=== PATIENT | female | born 1950 | race Caucasian/White ===

== ENCOUNTER 2018-08-17 16:25 | Observation (INO) | payer MEDICARE, SELFPAY ==
[2018-08-17] VITALS (9 sets, daily range): BP systolic 115–162; BP diastolic 49–64; PULSE 86–92; RESP 16–20; TEMP 36.6–37.1; O2SAT 89–99; BMI 29.9
--- NOTE | 2018-08-17 16:51 | EKG12_ITS ---
Test Reason : Blood Pressure : / mmHG Vent. Rate : 090 BPM Atrial Rate : 090 BPM P-R Int : 172 ms QRS Dur : 128 ms QT Int : 424 ms P-R-T Axes : 079 006 040 degrees QTc Int : 518 ms Normal sinus rhythm Left bundle branch block Abnormal ECG Confirmed by NATANAEL SIMON, TOM ([id number]), editor city DEWAYNE GUERRERO ([id number]) on 08/19/2018 1:55:50 PM Referred By: Tomy Hillman Confirmed By:TOM SANTOYO MD
--- NOTE | 2018-08-17 16:55 | ED.DCSUM_ITS ---
- ER Visit Summary Date of Service: 08/17/18 Chief Complaint: Nausea, vomiting History of Present Illness: The patient is a 68 F presenting with nausea, vomiting. This started earlier today. She has had several episodes of vomiting today. She denies diarrhea. She denies abdominal pain. She states she feels very dizzy with standing. When her son checked on her she was covered in emesis. She was unable to get up or stand secondary to her dizziness. She denies headache or weakness. Denies other complaints. Physical Examination: Vitals are stable. Patient is afebrile. Alert no acute distress. HEENT exam dry mucous membranes Neck is supple. Lungs are clear and equal bilaterally. Heart is regular rate and rhythm. Abdomen is soft nontender nondistended. No guarding or rebound Extremities are unremarkable. Skin is warm and dry. No focal neurologic deficit. Mild chronic aphasia Remainder of exam is unremarkable. Emergency Department Course and Treatment: Patient is given IV fluids, Zofran. CBC normal except for hemoglobin 10.3. Chemistries normal except glucose 144. Troponin is negative. EKG is sinus rate of 90 with left bundle branch block. CT head shows chronic changes. Patient continues to have spinning sensation. She is given a dose of Antivert. Will discuss with the hospitalist for observation. Disposition: Observation Impression: Vomiting, vertigo This note was generated with [employer] dictation software. It may contain incorrect words, spelling, and punctuation that were not noted in review of the chart prior to signing ED Disposition - Plan for ED Patient: Chief Complaint: Nausea/Vomiting
[2018-08-17] MEDS: 0.9% Normal Saline 1,000 ML 1000 ML IV (17:06)
[2018-08-17] MEDS: Ondansetron 4 MG/2 ML Vial IV (17:07)
[2018-08-17 17:14] LABS: Absolute Neutrophil Count 5.7 X10^3/uL (2.0-7.7); Basophil# 0.02 X10^3/uL; Basophil% 0.3 % (0-1); Eosinophil# 0.02 X10^3/uL; Eosinophils% 0.3 % (0-5); Hematocrit 33.3 % (37-47); Hemoglobin 10.3 g/dl (12.0-15.0); Lymphocyte % 13.1 % (19-41); Mean Corp Hgb Conc 30.9 g/gl (32-36); Mean Corpuscular Hgb 26.3 pg (27.0-32.0); Mean Corpuscular Volume 84.9 fL (81-99); Mean Platelet Vol. 9.3 fl (6.2-12.0); Monocyte# 0.21 X10^3/uL; Neutrophil # 5.73 X10^3/uL (2.7-7.7); Neutrophil % 83.2 % (47-70); Platelet Count 352 K/mm3 (150-450); RBC Distribution Width CV 14.8 % (11.6-14.6); RBC Distribution Width SD 46.3 fl (35.1-43.9); Red Blood Count 3.92 M/mm3 (4.2-5.4); White Blood Count 6.9 K/mm3 (4.4-11.0)
[2018-08-17 17:22] LABS: POSITIVE COUNT NO; POSITIVE DIFFERENTIAL NO; POSITIVE MORPHOLOGY NO
[2018-08-17 17:26] LABS: Anion Gap 8 (5-15); BUN 13 mg/dL (7-18); BUN/Creat Ratio 16.6 RATIO (10-20); Calcium,Total 9.1 mg/dL (8.5-10.1); Chloride 103 mmol/L (98-107); Creatinine, Serum 0.78 mg/dL (0.55-1.02); EST Glomerular Filtration Rate 78 mL/min (>60); Est Glom Filt Rate - Afr Amer 94 mL/min (>60); Glucose 144 mg/dL (74-106); Potassium 4.1 mmol/L (3.5-5.1); Sodium Level 139 mmol/L (136-145)
--- NOTE | 2018-08-17 17:38 | ED.RN ---
PT STATES THAT HER NAUSEA AND DIZZINESS IS A LOT BETTER.
--- NOTE | 2018-08-17 17:46 | CT_ITS ---
STUDY: CT BRAIN WITHOUT CONTRAST REASON FOR EXAM: Female, 68 years old. Dizziness RADIATION DOSAGE (If Supplied By Facility): CTDIvol = ( 44.99 ) mGy, DLP = ( 762.36 ) mGycm TECHNIQUE: Transaxial CT imaging of the brain was performed without administration of intravenous contrast material. Individualized dose optimization techniques were used for this CT. COMPARISON: None. FINDINGS: Normal soft tissue structures. Normal calvarium. Mildly prominent size ventricles and extra-axial spaces with atrophy. Old left frontal infarct. Bilateral white matter microangiopathic ischemic changes of the cerebral hemispheres. Normal basal ganglia and thalami. Normal brainstem. Normal cerebellum. There is no intracranial hemorrhage. There are no findings of an acute ischemic infarction. Normal visualized paranasal sinuses. CT/Brain/Head without Contrast IMPRESSION: Age-related changes of the brain. Old left frontal infarct. Electronically Signed: Micky Medina DO at 18:42 EST Tel [phone], Service support ,
[2018-08-17] MEDS: Meclizine 12.5 MG Tablet PO (18:18)
--- NOTE | 2018-08-17 18:57 | HP.PCM_ITS ---
Addendum entered and electronically signed by RANDA Dickerson 08/17/18 18:59: Code Visit Sg Hx: Hysterectomy, hernia repair. Original Note: History of Present Illness Date of Admission: 08/17/18 Chief Complaint: vertigo The patient is a 68 year old Female with past medical history of 2 prior strokes, who presented to the emergency room with chief complaint of dizziness. This started suddenly today. The patient was sitting in a chair and began experiencing severe dizziness described as the room spinning. She became severely nauseous and has vomited. The sensation was so strong that she was unable to get out of her chair and she has not walked. No falls today. She was brought to the emergency room and she was administered Zofran and meclizine. She had significant relief of her nausea with Zofran. She has no focal weakn ess. CT brain was negative. She has chronic aphasia from her old strokes, and normally ambulates with a rollator. She had a seizure after one of her prior strokes - she has not had one since. [] Past Medical History Allergies No Known Allergies Allergy (Verified 08/17/18 16:26) Lives: Alone Smoking Status: Former smoker Tobacco Use: Cigarettes Alcohol: None Drugs: None - *Family History Maternal History Items: No pertinent history Paternal History Items: - - multiple myeloma Review of Systems Constitutional: Denies: Chills, Fever, Weight Change HEENT: Denies: Head Aches, Sinus Congestion, Sinus Drainage Cardiovascular: Denies: Chest Pain, Palpitations Respiratory: Denies: Cough, Shortness of breath at rest, Sputum production Gastrointestinal: Denies: Abdominal Pain, Nausea, Vomiting Genitourinary: Denies: Dysuria Musculoskeletal: Denies: Joint Pain, Joint Tenderness Skin: Denies: Rash, Wounds Neurological: Denies: Numbness, Tingling, Focal weakness Psychiatric: Denies: Anxiety, Depression, Homicidal Ideations, Suicidal Ideations Hematologic/ Lymphatic: Denies: Easy Bruising, Easy Bleeding VTE Information - Inpt Only VTE Present on Admission: No VTE Mechan Device Prophylaxis: None VTE Pharm Prophylaxis ordered?: Yes - Physical Exam General: Alert, Oriented x3, Cooperative HEENT: Atraumatic, PERRLA, EOMI, Normocephalic Neck: Supple, No JVD, Negative Carotid Bruits Lungs: Clear to auscultation, Normal air movement Cardiovascular: Regular rate, No murmurs Abdomen: Bowel Sounds Present, Soft, Non Tender Extremities: No edema, Capillary Refill Less than 3 Seconds Skin: No rashes, No breakdown Musculoskeletal: No Tenderness to Palpation of Joints or Extremities Neurological: Cranial nerves II-XII grossly intact, - - aphasia Psych/Mental Status: Normal Affect, Appropriate Vital Signs Temp Pulse Resp BP Pulse Ox 97.9 F 90 18 134/64 H 94 08/17/18 16:26 08/17/18 16:30 08/17/18 16:26 08/17/18 17:39 08/17/18 17:39 Oxygen Delivery Method Room Air Weight: 174 lb 9.698 oz Body Mass Index (BMI) 29.9 Laboratory Tests Past 24 Hrs 08/17/18 08/17/18 16:35 16:35 WBC 6.9 RBC 3.92 L Hgb 10.3 L Hct 33.3 L MCV 84.9 MCH 26.3 L MCHC 30.9 L RDW 14.8 H RDW Differential 46.3 H Plt Count 352 MPV 9.3 Immature Gran % (Auto) 0.100 Neut % (Auto) 83.2 H Lymph % (Auto) 13.1 L [place] % (Auto) 3.0 Eos % (Auto) 0.3 Baso % (Auto) 0.3 Absolute Neuts (auto) 5.7 Absolute Lymphs (auto) 0.90 Total Counted Not Reportable Sodium 139 Potassium 4.1 Chloride 103 Carbon Dioxide 28.0 Anion Gap 8 BUN 13 Creatinine 0.78 Estim Creat Clear Calc 46.50 Est GFR (MDRD) Af Amer 94 Est GFR (MDRD) Non-Af 78 BUN/Creatinine Ratio 16.6 Glucose 144 H Calcium 9.1 Troponin I < 0.015 Assessment/Plan 1. Vertigo - CT brain shows old stroke and age related changes. Initiate valium/meclizine, IV fluids, antiemetics. Obtain PTOT evals. Trop neg. 2. Hx CVAx2 - continue prior, chronic aphasia, post stroke seizure, continue antiepileptics. 3. Normocytic anemia - trend. 4. Mild HTN in ER - trend. 5. Debility - uses rollator at home. PTOT. DVT ppx: lovenox DC planning: PTOT. im vertigo improves can likely be DCd home. This patient was seen by Pratik Jeremiah PA-C under the supervision of Dr. Hillman.
[2018-08-17] MEDS: 0.9% Normal Saline 1,000 ML 100 ML IV (20:22)
[2018-08-17] MEDS: diazePAM 2 MG Tablet PO (22:37)
[2018-08-17] MEDS: Heparin Injection (Vial) 5,000 UNIT/ML VIAL 5000 UNIT SC (22:37)
[2018-08-18] MEDS: Menthol/Lanolin/Calamine/Znox 113 GM Tube 1 APPLIC TOPICAL ×3 (03:17→21:56)
[2018-08-18] MEDS: Nystatin Powder 15gm Bottle 1 APPLIC TOPICAL ×3 (03:17→22:07)
[2018-08-18 03:28] VITALS: BP 133/61; PULSE 88; RESP 16; TEMP 36.6; O2SAT 96
[2018-08-18] MEDS: 0.9% Normal Saline 1,000 ML 100 ML IV ×2 (06:26→16:36)
[2018-08-18] MEDS: Heparin Injection (Vial) 5,000 UNIT/ML VIAL 5000 UNIT SC ×3 (06:38→21:55)
[2018-08-18 07:50] VITALS: O2SAT 99
--- NOTE | 2018-08-18 08:30 | PN_ITS ---
Subjective: The patient is a 68-year-old female with a past medical history of CVA x2, hyperlipidemia, hypertension, seizure disorder on Keppra, hypothyroidism, and former smoking history who presented to the emergency department at [facility] on 08/17/2018 complaining of a vertiginous feeling associated with nausea and vomiting. She was unable to get out of her chair and had not walked. Noncontrasted CT of the brain was negative. Vital signs in the emergency department were temperature 97.9, pulse rate 88, blood pressure 162/62, respiratory rate 18 and she was 96% saturated on room air. CBC showed a normal white blood cell count of 6.9 with 83% neutrophils. The hemoglobin was low at 10.3 with an MCV of 84.9 and an RDW of 14.8. Platelets were within normal limits. Electrolytes were unremarkable and the BUN was 13 with a creatinine of 0.78. A random blood sugar was elevated at 144 and she is not known to have diabetes mellitus. Troponin was less than 0.015. She was admitted to the hospital and was started on normal saline at 100 cc/h, 2 mg of Valium 4 times a day and ondansetron for nausea as needed. PT and OT consults were ordered. Blood pressures have ranged from 115/49-162/62 since admission. Her BP pills were held at admission She denies vertigo today. She tells me that it started very suddenly yesterday and she was unable to get up out of her chair. She denies nausea today and tells me that her last emesis was yesterday. Her only complaint today she feels very tired. He is getting Valium 4 times daily. Eyes any numbness or weakness of her extremities, difficulty swallowing, confusion. She has expressive a aphasia from previous CVA. She states this is unchanged. - Physical Exam General: Alert, Oriented x3, Cooperative, No apparent distress, - - Looks very sleepy although she does arouse easily when I call her name HEENT: Atraumatic, PERRLA, EOMI, - - Very mild horizontal nystagmus Oral: Moist Mucosa Neck: Supple, No Nodes, Trachea Midline Lungs: Clear to auscultation Cardiovascular: Regular rate, Regular Rhythm, Normal S1, Normal S2, No murmurs, No Gallop Abdomen: Bowel Sounds Present, Soft, Non Tender, Non-Distended Extremities: No clubbing, No cyanosis, No edema Skin: No rashes, No breakdown Neurological: Cranial nerves II-XII grossly intact, Neuro grossly intact, - - Moving all extremities, alert and oriented x3 when aroused, able to follow commands and answer yes and no questions. She has expressive aphasia which is chronic Psych/Mental Status: Appropriate Vital Signs Temp Pulse Resp BP Pulse Ox 97.8 F 88 16 133/61 H 96 08/18/18 03:28 08/18/18 03:28 08/18/18 03:28 08/18/18 03:28 08/18/18 03:28 Oxygen Flow Rate (L/min) 1 Oxygen Delivery Method Nasal Cannula Weight: 174 lb 9.698 oz Body Mass Index (BMI) 29.9 Intake and Output for Last 24 Hours 08/16/18 08/17/18 08/18/18 23:59 23:59 23:59 Intake Total 1136 / 1136 Balance 1136 / 1136 Laboratory Tests Past 24 Hrs 08/17/18 08/17/18 16:35 16:35 WBC 6.9 RBC 3.92 L Hgb 10.3 L Hct 33.3 L MCV 84.9 MCH 26.3 L MCHC 30.9 L RDW 14.8 H RDW Differential 46.3 H Plt Count 352 MPV 9.3 Immature Gran % (Auto) 0.100 Neut % (Auto) 83.2 H Lymph % (Auto) 13.1 L [place] % (Auto) 3.0 Eos % (Auto) 0.3 Baso % (Auto) 0.3 Absolute Neuts (auto) 5.7 Absolute Lymphs (auto) 0.90 Total Counted Not Reportable Sodium 139 Potassium 4.1 Chloride 103 Carbon Dioxide 28.0 Anion Gap 8 BUN 13 Creatinine 0.78 Estim Creat Clear Calc 46.50 Est GFR (MDRD) Af Amer 94 Est GFR (MDRD) Non-Af 78 BUN/Creatinine Ratio 16.6 Glucose 144 H Calcium 9.1 Troponin I < 0.015 Medical Necessity - Tobacco Use Smoking Status: Former smoker Tobacco Use: Cigarettes Assessment/Plan Impressions 1. vertigo - etiology? Sx have resolved so I suspect this is BPV. Will have her eat this AM and await the evaluation by PT. If she is unable to ambulate with the rollator will order a MRI of the brain to look for a brain stem infarct 2. hx of CVA X 2 in the past with chronic aphasia 3. anemia with increased RDW - on both ASA and Plavix. Check a hemoccult stool 4. HTN 5. Dyslipidemia Code Visit OBSV E&M: 08995 Subsequent observation care L2
[2018-08-18 09:18] LABS: Hemoglobin A1c 6.3 % (4.2-6.3); Thyroid Stim Hormone (TSH) 4.53 uIU/mL (0.358-3.74)
[2018-08-18 10:00] VITALS: BP 125/54; PULSE 89; RESP 16; TEMP 36.5; O2SAT 100
[2018-08-18] MEDS: Carvedilol 6.25 MG Tablet PO ×2 (10:54→21:55)
[2018-08-18] MEDS: Clopidogrel Bisulfate 75 MG Tablet PO (10:54)
[2018-08-18] MEDS: levETIRAcetam 500 MG Tablet PO ×2 (10:54→21:56)
[2018-08-18] MEDS: Meclizine 12.5 MG Tablet PO ×2 (11:08→22:00)
[2018-08-18 14:00] VITALS: BP 128/62; PULSE 89; RESP 18; TEMP 36.4; O2SAT 95
[2018-08-18 20:00] VITALS: BP 142/60; PULSE 106; RESP 28; TEMP 37.9; O2SAT 96
[2018-08-18 21:00] VITALS: PULSE 106; RESP 28; O2SAT 96
[2018-08-18] MEDS: Atorvastatin Calcium 20 MG Tablet PO (21:55)
[2018-08-18] MEDS: Sertraline 100 MG Tablet PO (21:57)
[2018-08-18] MEDS: Acetaminophen 325 MG Tablet 650 MG PO (22:00)
--- NOTE | 2018-08-18 23:45 | RAD_ITS ---
STUDY: X-RAY CHEST REASON FOR EXAM: Female, 68 years old. Fever TECHNIQUE: Single AP portable view of the chest. COMPARISON: None. FINDINGS: Ill-defined groundglass opacities are seen in the right upper lobe suggesting pneumonia. There is no demonstrated pleural abnormality. Normal size heart. Normal mediastinum and sunita. Normal visualized pulmonary arteries. Normal visualized aortic arch and descending thoracic aorta. Normal visualized thoracic spine. Normal visualized ribs, clavicles, and shoulders. There is no demonstrated abnormality of the visualized soft tissue structures of the upper abdomen. RAD/Chest 1 View (Portable) IMPRESSION: Possible early right upper lobe pneumonia. Electronically Signed: Claudia Lerma MD at 0:46 EST Tel , Service support ,
[2018-08-19] VITALS (8 sets, daily range): BP systolic 123–168; BP diastolic 55–77; PULSE 86–105; RESP 16–24; TEMP 36.7–37.3; O2SAT 88–100
[2018-08-19] MEDS: levoFLOXacin IV 500 MG/100 ML BAG 100 MG IV (02:26)
[2018-08-19] MEDS: 0.9% Normal Saline 1,000 ML 100 ML IV ×3 (02:26→21:11)
[2018-08-19 02:39] LABS: Absolute Lymphocyte Count 1.76 X10^3/ul (0.83-4.51); Absolute Neutrophil Count 3.7 X10^3/uL (2.0-7.7); Basophil# 0.04 X10^3/uL; Basophil% 0.6 % (0-1); Eosinophil# 0.17 X10^3/uL; Eosinophils% 2.8 % (0-5); Hematocrit 26.3 % (37-47); Hemoglobin 7.9 g/dl (12.0-15.0); Lymphocyte # 1.76 X10^3/ul (4.0); Lymphocyte % 28.6 % (19-41); Mean Corpuscular Hgb 26.7 pg (27.0-32.0); Mean Corpuscular Volume 88.9 fL (81-99); Mean Platelet Vol. 9.8 fl (6.2-12.0); Monocyte# 0.48 X10^3/uL; Monocyte% 7.8 % (0-10); Platelet Count 302 K/mm3 (150-450); RBC Distribution Width CV 14.7 % (11.6-14.6); RBC Distribution Width SD 45.9 fl (35.1-43.9); Red Blood Count 2.96 M/mm3 (4.2-5.4); White Blood Count 6.2 K/mm3 (4.4-11.0)
[2018-08-19 02:41] LABS: POSITIVE COUNT NO; POSITIVE DIFFERENTIAL NO; POSITIVE MORPHOLOGY NO
[2018-08-19] MEDS: Heparin Injection (Vial) 5,000 UNIT/ML VIAL 5000 UNIT SC ×3 (06:46→21:12)
[2018-08-19] MEDS: Levothyroxine 50 MCG Tablet PO (06:47)
[2018-08-19] MEDS: Meclizine 12.5 MG Tablet PO ×3 (06:50→21:12)
[2018-08-19] MEDS: Carvedilol 6.25 MG Tablet PO ×2 (08:32→21:12)
[2018-08-19] MEDS: Aspirin E.C. 81 MG Tablet PO (08:32)
[2018-08-19] MEDS: Multivitamins,Ther W-Minerals Tablet 1 TABLET PO (08:32)
[2018-08-19] MEDS: levETIRAcetam 500 MG Tablet PO ×2 (08:33→21:55)
[2018-08-19] MEDS: Clopidogrel Bisulfate 75 MG Tablet PO (08:33)
--- NOTE | 2018-08-19 11:01 | CASEMGMT ---
Social Work Note SW updated pt that Advanced Directives are not on file. Pt states that her son has the documents and he is able to bring them in. Kylee Gresham [employer] GENER[employer] MANAGER, [employer]
[2018-08-19] MEDS: Nystatin Powder 15gm Bottle 1 APPLIC TOPICAL ×2 (12:13→21:13)
[2018-08-19] MEDS: Menthol/Lanolin/Calamine/Znox 113 GM Tube 1 APPLIC TOPICAL ×2 (12:13→21:11)
--- NOTE | 2018-08-19 12:15 | PCM.PROGNOTE ---
Subjective: The patient is a 68-year-old female with a past medical history of CVA x2, hyperlipidemia, hypertension, seizure disorder on Keppra, hypothyroidism, and former smoking history who presented to the emergency department at [facility] on 08/17/2018 complaining of a vertiginous feeling associated with nausea and vomiting. All events of the past 24 hours were reviewed. Patient was seen by physical therapy yesterday and became nauseated with recurrent vertigo when up ambulating and refused to do any more physical therapy. They recommended she continue to get physical therapy. She is afebrile ( had 1 temp to 100.3 last night and has been Afebrile all other times). Vital signs are stable. She is 97-100% saturated on room air. All lab was personally reviewed. WBC count is 6.2 today with a normal differential. The hemoglobin has dropped from 10.3 on 08/17/2018 to 7.9 today. She is up 4 liters on I&O since admission however I do not know if the out put is accurate. Radiology: Chest x-ray yesterday shows no pleural effusions or PVC but is reported as a possible early pneumonia RUL by the radiologist.....but she is afebrile with a normal WBC and diff. Blood cultures are pending. Still having vertigo and is unsteady per nursing/PT......she did not do any out of bed PT today because she was going to go to MRI. after 10 minutes of exercise at the EOB the vertigo subsided MRI negative for acute CVA Objective: - Physical Exam General: Alert, Oriented x3, Cooperative, No apparent distress, sitting in a chair-more alert today since the Valium was changed to Antivert yesterday afternoon HEENT: Atraumatic, PERRLA, EOMI, - - Very mild horizontal nystagmus, expressive aphasia Oral: Moist Mucosa Neck: Supple, No Nodes, Trachea Midline Lungs: Clear to auscultation Cardiovascular: Regular rate, Regular Rhythm, Normal S1, Normal S2, No murmurs, No Gallop Abdomen: Bowel Sounds Present, Soft, Non Tender, Non-Distended Extremities: No clubbing, No cyanosis, No edema Skin: No rashes, No breakdown Neurological: Cranial nerves II-XII grossly intact, Neuro grossly intact, - - Moving all extremities, alert and oriented x3 when aroused, able to follow commands and answer yes and no questions. She has expressive aphasia which is chronic Psych/Mental Status: Appropriate - Physical Exam Vital Signs Temp Pulse Resp BP Pulse Ox 98.5 F 92 18 139/56 H 97 08/19/18 08:19 18 08:19 08/19/18 09:00 08/19/18 08:19 08/19/18 08:19 Oxygen Flow Rate (L/min) 1 Oxygen Delivery Method Nasal Cannula Weight: 174 lb 9.698 oz Body Mass Index (BMI) 29.9 Intake and Output for Last 24 Hours 08/17/18 08/18/18 08/19/18 23:59 23:59 23:59 Intake Total 2570 / 2570 1609 / 1609 Output Total 200 / 200 Balance 2370 / 2370 1609 / 1609 Microbiology Past 72 Hours 08/19/18 03:00 Gram Stain - Final Sputum, Expectorated/Coughed Laboratory Tests Past 24 Hrs 08/19/18 02:17 WBC 6.2 RBC 2.96 L Hgb 7.9 L Hct 26.3 L MCV 88.9 MCH 26.7 L MCHC 30.0 L RDW 14.7 H RDW Differential 45.9 H Plt Count 302 MPV 9.8 Immature Gran % (Auto) 0.200 Neut % (Auto) 60.0 Lymph % (Auto) 28.6 [place] % (Auto) 7.8 Eos % (Auto) 2.8 Baso % (Auto) 0.6 Absolute Neuts (auto) 3.7 Absolute Lymphs (auto) 1.76 Total Counted Not Reportable Medical Necessity - Tobacco Use Smoking Status: Former smoker Tobacco Use: Cigarettes Assessment/Plan Impressions 1. vertigo - etiology? suspect BPV since the MRI of the brain was negative. She did better with PT today. 2. hx of CVA X 2 in the past with chronic aphasia 3. Iron deficiency anemia with increased RDW - on both ASA and Plavix. Check a hemoccult stool. HGB is stable today. iron studies are consistent with iron deficiency. Await the hemoccult stool 4. HTN 5. Dyslipidemia 6. 1 low grade temp and AF since. CXR with possible early RUL infiltrate. she is not coughing and denies chills - hold off on any antibiotics unless she has more fevers, shaking chills, SOB, hypoxemia Start an iron supplement and will need to go home on iron........may need endoscopy as OP to look for etiology of the iron deficiency Continue the MecliZiromeo CONROY the Levaqadriana CONROY the tylenol to see if she will have another fever.....if she does get a fever would treat for an aspiration PNA given N/V at admission Would probably benefit from OP referral to PT for vestibular training Code Visit Inpatient E&M: 10066 Subs Hosp L2
[2018-08-19 13:19] LABS: Hematocrit 28.2 % (37-47); Hemoglobin 8.7 g/dl (12.0-15.0)
--- NOTE | 2018-08-19 13:30 | CASEMGMT ---
WHITLEY SOLANO completed MANZANARES form with patient and son William who is HPOA. Per patient's request William WALLER signed MANZANARES form. Copy of MANZANARES form given to son and original filed on chart. Patient lives with son and has walker and wheelchair at home. Family requesting [facility] for SN and therapy. Family and patient agreeable to [facility]. Referral sent to [facility]. CM will continue to follow this patient and plan for a safe discharge.
[2018-08-19 13:52] LABS: Ferritin 6 ng/mL (8-252); Iron 48 ug/dL (50-170); Iron Binding Capacity,Total 328 ug/dL (250-450); PERCENT IRON SATURATION 14.6 % (15.0-55.0)
--- NOTE | 2018-08-19 14:21 | MRI_ITS ---
STUDY: MRI BRAIN WITHOUT CONTRAST REASON FOR EXAM: Female, 68 years old. Vertigo. Expressive aphasia. TECHNIQUE: Standardized multiplanar fat and water weighted pulse sequences were obtained. COMPARISON: CT head 08/17/2018. FINDINGS: There is a chronic left frontal infarct. Surrounding signal alteration is consistent with small vessel disease or gliosis. There is no evidence of hemorrhage or acute ischemia. There is moderate cerebral atrophy with widening of the extra-axial spaces and ventricular dilatation. There are a limited number of small white matter hyperintensities, distributed throughout the deep white matter tracts of the cerebral hemispheres, consistent with mild chronic white matter ischemic changes. Normal bilateral basal ganglia. Normal thalami. There is no extra-axial fluid accumulation. 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 Normal sella turcica, pituitary gland, infundibular stalk, optic chiasm and hypothalamus. Normal tectal plate and pineal gland. There is atrophy of the left cerebral peduncle consistent with chronic left frontal infarct. Normal day and medulla. Normal cerebellum. Normal basal cisterns. Normal bilateral temporal bones. Normal bilateral internal auditory canals. No demonstrated orbital abnormality, within the constraints of a routine brain study. Normal visualized paranasal sinuses. Normal calvarium and skull base. Normal visualized soft tissue structures. Normal visualized upper cervical spine. MRI/Brain without Contrast IMPRESSION: 1. No acute process. 2. Chronic left frontal infarct. 3. Demonstrated left ICA appears occluded. 4. Microvascular ischemia. Atrophy. Electronically Signed: Elmira Hutchison MD at 17:55 EST Tel , Service support ,
[2018-08-19] MEDS: 0.9% NaCl Peripheral Flush Adult/Peds IV (21:10)
[2018-08-19] MEDS: Ondansetron 4 MG/2 ML Vial IV (21:10)
[2018-08-19] MEDS: Sertraline 100 MG Tablet PO (21:13)
[2018-08-19] MEDS: Atorvastatin Calcium 20 MG Tablet PO (21:13)
[2018-08-19] MEDS: Psyllium 1 PACKET PO (21:56)
[2018-08-20] VITALS (8 sets, daily range): BP systolic 117–147; BP diastolic 46–82; PULSE 93–101; RESP 16–24; TEMP 36.4–37.1; O2SAT 94–99
[2018-08-20] MEDS: Levothyroxine 50 MCG Tablet PO (05:23)
[2018-08-20] MEDS: Meclizine 12.5 MG Tablet PO ×3 (05:23→22:10)
[2018-08-20] MEDS: Heparin Injection (Vial) 5,000 UNIT/ML VIAL 5000 UNIT SC ×3 (05:24→22:10)
[2018-08-20] MEDS: Aspirin E.C. 81 MG Tablet PO (09:16)
[2018-08-20] MEDS: Clopidogrel Bisulfate 75 MG Tablet PO (09:16)
[2018-08-20] MEDS: Multivitamins,Ther W-Minerals Tablet 1 TABLET PO (09:16)
[2018-08-20] MEDS: Carvedilol 6.25 MG Tablet PO ×2 (09:16→22:09)
[2018-08-20] MEDS: levETIRAcetam 500 MG Tablet PO ×2 (09:16→22:10)
[2018-08-20] MEDS: Psyllium 1 PACKET PO ×2 (09:17→22:09)
[2018-08-20] MEDS: Menthol/Lanolin/Calamine/Znox 113 GM Tube 1 APPLIC TOPICAL ×2 (09:17→22:11)
--- NOTE | 2018-08-20 10:33 | RAD_ITS ---
STUDY: X-RAY CHEST REASON FOR EXAM: Female, 68 years old. Nausea and vomiting, dizziness TECHNIQUE: PA and lateral views of the chest. COMPARISON: 08/18/2018 FINDINGS: Lungs are expanded with chronic interstitial changes and superimposed interstitial edema since the previous study. The lateral view shows small bilateral dependent pleural effusions. Follow-up recommended to assure resolution. Normal size heart. Normal mediastinum and sunita. Normal visualized pulmonary arteries. There is atherosclerotic calcification of the aortic arch with tortuosity. There are diffuse degenerative changes of the visualized thoracic spine. Normal visualized ribs, clavicles, and shoulders. There is no demonstrated abnormality of the visualized soft tissue structures of the upper abdomen. RAD/Chest PA and Lateral IMPRESSION: Chronic interstitial changes with superimposed interstitial edema and bilateral pleural effusions. Follow-up recommended to assure resolution. Electronically Signed: Celso Dupont MD at 11:16 EST , Service support ,
--- NOTE | 2018-08-20 11:17 | PCM.PN.HOSP ---
Patient Problems: Active and Suspected Problems Vertigo (Acute) Subjective: still with dizziness, but improved. Vitals/I&O's: Vital Signs Temp Pulse Resp BP Pulse Ox 36.8 C 95 24 H 129/68 H 94 08/20/18 09:11 08/20/18 09:11 08/20/18 09:11 08/20/18 09:11 08/20/18 09:11 Oxygen Flow Rate (L/min) 3 Oxygen Delivery Method Nasal Cannula Weight: 79.2 kg Body Mass Index (BMI) 29.9 Intake and Output for Last 24 Hours 08/18/18 08/19/18 08/20/18 23:59 23:59 23:59 Intake Total 2570 / 2570 3477 / 3477 2275 / 2275 Output Total 200 / 200 1250 / 1250 1150 / 1150 Balance 2370 / 2370 2227 / 2227 1125 / 1125 General: Alert, Cooperative, No apparent distress HEENT: Atraumatic, PERRLA, Normocephalic, - - horizontal nystagmus, that fatigues bilaterally. Oral: Moist Mucosa, No Gingival or Mucosal Lesions/ Ulcerations Neck: No Nodes, Thyroid Normal Size and Texture Lungs: Normal air movement, - - coarse breath sounds bilaterally. Cardiovascular: Regular rate, Regular Rhythm, Normal S1, Normal S2, No murmurs Abdomen: Bowel Sounds Present, Soft, Non Tender, Non-Distended, No Hepato-splenomegaly Extremities: No edema, No Calf Tenderness Skin: No rashes, No breakdown Psych/Mental Status: Normal Affect, Appropriate Microbiology Past 72 Hours 08/19/18 03:00 Sputum, Expectorated/Coughed Gram Stain - Final Laboratory Results 08/19/18 13:11: Hgb 8.7 L, Hct 28.2 L 08/19/18 13:11: Iron 48 L, TIBC 328, Iron Saturation 14.6 L, Ferritin 6 L Current Medications Aspirin (Ecotrin) 81 mg PO DAILYCM [facility] Last Admin: 08/20/18 09:16 Dose: 81 mg Atorvastatin Calcium (Lipitor) 20 mg PO QHS [facility] Last Admin: 08/19/18 21:13 Dose: 20 mg Calamine/Phenol (Calmoseptine Ointment) 1 applic TOPICAL BID [facility]; Protocol Last Admin: 08/20/18 09:17 Dose: 1 applicatio Carvedilol (Coreg) 6.25 mg PO BID [facility] Last Admin: 08/20/18 09:16 Dose: 6.25 mg Clopidogrel Bisulfate (Plavix) 75 mg PO DAILY [facility] Last Admin: 08/20/18 09:16 Dose: 75 mg Ferrous Sulfate (Ferrous Sulfate) 325 mg PO 1200,1700 [facility] Heparin Sodium (Porcine) (Heparin Na) 5,000 unit SC Q8 [facility] Last Admin: 08/20/18 05:24 Dose: 5,000 unit Levetiracetam (Keppra Tablet) 500 mg PO BID [facility] Last Admin: 08/20/18 09:16 Dose: 500 mg Levothyroxine Sodium (Synthroid) 50 mcg PO DAILY@0600 [facility] Last Admin: 08/20/18 05:23 Dose: 50 mcg Meclizine HCl (Antivert) 12.5 mg PO Q8 [facility] Last Admin: 08/20/18 05:23 Dose: 12.5 mg Multivitamins/Minerals (Multivitamin With Minerals) 1 tablet PO DAILY@0800 [facility] Last Admin: 08/20/18 09:16 Dose: 1 tablet Nystatin (Mycostatin Powder) 1 applic TOPICAL BID [facility]; Protocol Last Admin: 08/20/18 10:15 Dose: Not Given Ondansetron HCl (Zofran) 4 mg IV Q6H PRN PRN PRN Reason: NAUSEA Last Admin: 08/19/18 21:10 Dose: 4 mg Psyllium Hydrophilic Mucilloid (Metamucil) 1 packet PO BID [facility] Last Admin: 08/20/18 09:17 Dose: 1 packet Sertraline HCl (Zoloft) 100 mg PO QHS [facility] Last Admin: 08/19/18 21:13 Dose: 100 mg Sodium Chloride () 5 - 15 ml IV UD PRN PRN Reason: SALINE FLUSH Last Admin: 08/19/18 21:10 Dose: 10 ml Medical Necessity - Tobacco Use Smoking Status: Former smoker Tobacco Use: Cigarettes Assessment/Plan All Active Problems Vertigo (Acute) 1. Vertigo. ongoing, but improved suspect BPPV on meclizine continue therapy services MRI negative for acute CVA, but does show occlusion of Left ICA 2. Dyspnea CXR shows some pulm edema and pleural effusions (small) concern is for CHF check echo start Lasix already on carvedilol 3. CVA chronic on CAPT and HIS 4. DVT proph: SQ heparin Code Visit Inpatient E&M: 88484 Subs Hosp L2
--- NOTE | 2018-08-20 11:26 | PN_ITS ---
Patient Problems: Active and Suspected Problems Vertigo (Acute) Subjective: still with dizziness, but improved. Vitals/I&O's: Vital Signs Temp Pulse Resp BP Pulse Ox 36.8 C 95 24 H 129/68 H 94 08/20/18 09:11 08/20/18 09:11 08/20/18 09:11 08/20/18 09:11 08/20/18 09:11 Oxygen Flow Rate (L/min) 3 Oxygen Delivery Method Nasal Cannula Weight: 79.2 kg Body Mass Index (BMI) 29.9 Intake and Output for Last 24 Hours 08/18/18 08/19/18 08/20/18 23:59 23:59 23:59 Intake Total 2570 / 2570 3477 / 3477 2275 / 2275 Output Total 200 / 200 1250 / 1250 1150 / 1150 Balance 2370 / 2370 2227 / 2227 1125 / 1125 General: Alert, Cooperative, No apparent distress HEENT: Atraumatic, PERRLA, Normocephalic, - - horizontal nystagmus, that fatigues bilaterally. Oral: Moist Mucosa, No Gingival or Mucosal Lesions/ Ulcerations Neck: No Nodes, Thyroid Normal Size and Texture Lungs: Normal air movement, - - coarse breath sounds bilaterally. Cardiovascular: Regular rate, Regular Rhythm, Normal S1, Normal S2, No murmurs Abdomen: Bowel Sounds Present, Soft, Non Tender, Non-Distended, No Hepato-s plenomegaly Extremities: No edema, No Calf Tenderness Skin: No rashes, No breakdown Psych/Mental Status: Normal Affect, Appropriate Microbiology Past 72 Hours 08/19/18 03:00 Sputum, Expectorated/Coughed Gram Stain - Final Laboratory Results 08/19/18 13:11: Hgb 8.7 L, Hct 28.2 L 08/19/18 13:11: Iron 48 L, TIBC 328, Iron Saturation 14.6 L, Ferritin 6 L Current Medications Aspirin (Ecotrin) 81 mg PO DAILYCM [facility] Last Admin: 08/20/18 09:16 Dose: 81 mg Atorvastatin Calcium (Lipitor) 20 mg PO QHS [facility] Last Admin: 08/19/18 21:13 Dose: 20 mg Calamine/Phenol (Calmoseptine Ointment) 1 applic TOPICAL BID [facility]; Protocol Last Admin: 08/20/18 09:17 Dose: 1 applicatio Carvedilol (Coreg) 6.25 mg PO BID [facility] Last Admin: 08/20/18 09:16 Dose: 6.25 mg Clopidogrel Bisulfate (Plavix) 75 mg PO DAILY [facility] Last Admin: 08/20/18 09:16 Dose: 75 mg Ferrous Sulfate (Ferrous Sulfate) 325 mg PO 1200,1700 [facility] Heparin Sodium (Porcine) (Heparin Na) 5,000 unit SC Q8 [facility] Last Admin: 08/20/18 05:24 Dose: 5,000 unit Levetiracetam (Keppra Tablet) 500 mg PO BID [facility] Last Admin: 08/20/18 09:16 Dose: 500 mg Levothyroxine Sodium (Synthroid) 50 mcg PO DAILY@0600 [facility] Last Admin: 08/20/18 05:23 Dose: 50 mcg Meclizine HCl (Antivert) 12.5 mg PO Q8 [facility] Last Admin: 08/20/18 05:23 Dose: 12.5 mg Multivitamins/Minerals (Multivitamin With Minerals) 1 tablet PO DAILY@0800 [facility] Last Admin: 08/20/18 09:16 Dose: 1 tablet Nystatin (Mycostatin Powder) 1 applic TOPICAL BID [facility]; Protocol Last Admin: 08/20/18 10:15 Dose: Not Given Ondansetron HCl (Zofran) 4 mg IV Q6H PRN PRN PRN Reason: NAUSEA Last Admin: 08/19/18 21:10 Dose: 4 mg Psyllium Hydrophilic Mucilloid (Metamucil) 1 packet PO BID [facility] Last Admin: 08/20/18 09:17 Dose: 1 packet Sertraline HCl (Zoloft) 100 mg PO QHS [facility] Last Admin: 08/19/18 21:13 Dose: 100 mg Sodium Chloride () 5 - 15 ml IV UD PRN PRN Reason: SALINE FLUSH Last Admin: 08/19/18 21:10 Dose: 10 ml Medical Necessity - Tobacco Use Smoking Status: Former smoker Tobacco Use: Cigarettes Assessment/Plan All Active Problems Vertigo (Acute) 1. Vertigo. 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 Dyspnea * CXR shows some pulm edema and pleural effusions (small) * concern is for CHF * check echo * start Lasix * already on carvedilol 3. CVA * chronic * on CAPT and HIS 4. DVT proph: SQ heparin Code Visit Inpatient E&M: 50286 Subs Hosp L2
[2018-08-20] MEDS: Furosemide 40 MG/4 ML Vial IV ×2 (11:51→17:14)
[2018-08-20] MEDS: 0.9% NaCl Peripheral Flush Adult/Peds IV ×2 (11:51→17:13)
--- NOTE | 2018-08-20 12:25 | NURSING ---
male phoned in, states he is pt son William Weinstein- updated
[2018-08-20] MEDS: Ferrous Sulfate 325 MG Tablet PO ×2 (13:28→17:13)
--- NOTE | 2018-08-20 18:46 | PCA ---
pure wick catheter changed at 1400, while pt sitting in chair
[2018-08-20] MEDS: Atorvastatin Calcium 20 MG Tablet PO (22:09)
[2018-08-20] MEDS: Sertraline 100 MG Tablet PO (22:10)
[2018-08-20] MEDS: Nystatin Powder 15gm Bottle 1 APPLIC TOPICAL (22:11)
[2018-08-21 05:06] VITALS: BP 129/57; PULSE 80; RESP 20; TEMP 36.8; O2SAT 95
[2018-08-21] MEDS: Levothyroxine 50 MCG Tablet PO (05:14)
[2018-08-21] MEDS: Meclizine 12.5 MG Tablet PO (05:14)
[2018-08-21] MEDS: Heparin Injection (Vial) 5,000 UNIT/ML VIAL 5000 UNIT SC (05:14)
[2018-08-21 05:15] VITALS: RESP 20; O2SAT 95
[2018-08-21 06:49] VITALS: O2SAT 96
[2018-08-21 06:59] LABS: Absolute Neutrophil Count 4.5 X10^3/uL (2.0-7.7); Basophil# 0.04 X10^3/uL; Basophil% 0.6 % (0-1); Eosinophil# 0.22 X10^3/uL; Eosinophils% 3.2 % (0-5); Hematocrit 28.4 % (37-47); Hemoglobin 8.7 g/dl (12.0-15.0); Lymphocyte % 23.1 % (19-41); Mean Corp Hgb Conc 30.6 g/gl (32-36); Mean Corpuscular Hgb 26.4 pg (27.0-32.0); Mean Corpuscular Volume 86.1 fL (81-99); Mean Platelet Vol. 9.4 fl (6.2-12.0); Monocyte# 0.59 X10^3/uL; Monocyte% 8.5 % (0-10); Neutrophil # 4.46 X10^3/uL (2.7-7.7); Neutrophil % 64.5 % (47-70); Platelet Count 294 K/mm3 (150-450); RBC Distribution Width CV 14.9 % (11.6-14.6); RBC Distribution Width SD 46.8 fl (35.1-43.9); White Blood Count 6.9 K/mm3 (4.4-11.0)
[2018-08-21 07:12] LABS: POSITIVE COUNT NO; POSITIVE DIFFERENTIAL NO; POSITIVE MORPHOLOGY NO
[2018-08-21 07:31] LABS: Anion Gap 10 (5-15); BUN 12 mg/dL (7-18); Calcium,Total 8.2 mg/dL (8.5-10.1); Chloride 109 mmol/L (98-107); EST Glomerular Filtration Rate 76 mL/min (>60); Est Glom Filt Rate - Afr Amer 92 mL/min (>60); Estimated Creatinine Clearance 58.12 ml/min; Glucose 91 mg/dL (74-106); Potassium 3.5 mmol/L (3.5-5.1); Sodium Level 146 mmol/L (136-145)
[2018-08-21 09:04] VITALS: BP 131/54; PULSE 94; RESP 20; TEMP 36.4; O2SAT 96
[2018-08-21] MEDS: Aspirin E.C. 81 MG Tablet PO (09:05)
[2018-08-21] MEDS: Psyllium 1 PACKET PO (09:05)
[2018-08-21] MEDS: Clopidogrel Bisulfate 75 MG Tablet PO (09:05)
[2018-08-21] MEDS: Multivitamins,Ther W-Minerals Tablet 1 TABLET PO (09:06)
[2018-08-21] MEDS: Ferrous Sulfate 325 MG Tablet PO (09:06)
[2018-08-21] MEDS: levETIRAcetam 500 MG Tablet PO (09:06)
[2018-08-21] MEDS: Carvedilol 6.25 MG Tablet PO (09:06)
[2018-08-21] MEDS: 0.9% NaCl Peripheral Flush Adult/Peds IV (09:06)
[2018-08-21] MEDS: Menthol/Lanolin/Calamine/Znox 113 GM Tube 1 APPLIC TOPICAL (09:13)
[2018-08-21] MEDS: Nystatin Powder 15gm Bottle 1 APPLIC TOPICAL (09:14)
[2018-08-21] MEDS: Furosemide 40 MG/4 ML Vial IV (09:14)
--- NOTE | 2018-08-21 10:48 | DCINST_ITS ---
You will use the following diet at home:: Cardiac, Fluid restricted (specify 2000 mls, 1500 mls) - 1500 cc/day Your food should be the consistency of: Regular Your liquids should be the consistency of: Regular/Thin Discharge Activity: Return to Normal Activity Call your doctor if you observe: Fever of 101 or Higher, Shortness of breath, Swelling in the ankles Allergies/Adverse Reactions: Allergies No Known Allergies Allergy (Verified 08/17/18 16:26) Medications to take at Discharge Aspirin [Aspir 81] 81 mg PO DAILY 08/17/18 Atorvastatin Calcium [Lipitor] 20 mg PO QHS 08/17/18 Carvedilol 6.25 mg PO BID 08/17/18 Clopidogrel Bisulfate [Clopidogrel] 75 mg PO DAILY 08/17/18 Furosemide [Lasix] 20 mg PO DAILY 08/17/18 Ibuprofen 600 mg PO Q6H PRN PRN 08/17/18 Levetiracetam 500 mg PO BID 08/17/18 Levothyroxine [Synthroid] 50 mcg PO DAILY 08/17/18 Lisinopril 5 mg PO QHS 08/17/18 Multivit,Tx with Iron,Minerals [Thera-M] 1 each PO DAILY 08/17/18 Sertraline HCl 100 mg PO QHS 08/17/18 Ferrous Sulfate 325 mg PO DAILY #30 tab 08/21/18 Meclizine HCl [Antivert] 12.5 mg PO Q8 PRN #20 tab 08/21/18 The following prescriptions were given: Ferrous Sulfate 325 mg PO DAILY #30 tab Meclizine HCl [Antivert] 12.5 mg PO Q8 PRN #20 tab PRN Reason: Dizziness Orders to be completed after discharge: Echo Complete [ECHO] Location: None Selected CBC W/Diff, Automated Time Frame: 1 Week, Location: Laboratory Physical Therapy Evaluation Location: None Selected Primary Care Physician: Lenin Bhatt MD [Primary Care Provider] - Within 1 Week Test Results: Test results from this visit will be discussed in further detail at your follow- up appointment, if applicable. Please Follow Up With: [facility] - heart failure follow up When: 2-4 weeks Please Follow Up With: Ac Thomas MD - anemia follow up When: 1-2 months Proposed Discharge Date: 08/21/18
--- NOTE | 2018-08-21 10:48 | PCM.DC.SUM ---
Discharge Date and Diagnosis - Problem List Patient Problems: Active and Suspected Problems Iron deficiency anemia (Acute) Heart failure (Acute) Vertigo (Acute) Date of Admission: 08/17/18 Date of Discharge: 08/21/18 - Primary Discharge Diagnosis Active and Suspected Problems Heart failure (Acute) Vertigo (Acute) Hospital Course and Treatment Imaging Results: Clinical Impression(s) from Imaging Studies Brain CT 08/17/18 17:46 IMPRESSION: Age-related changes of the brain. Old left frontal infarct. Electronically Signed: Micky Medina DO at 18:42 EST Tel [phone], Service support , Chest X-Ray 08/18/18 23:45 IMPRESSION: Possible early right upper lobe pneumonia. Electronically Signed: Claudia Lerma MD at 0:46 EST Tel , Service support , Brain MRI 08/19/18 14:21 IMPRESSION: 1. No acute process. 2. Chronic left frontal infarct. 3. Demonstrated left ICA appears occluded. 4. Microvascular ischemia. Atrophy. Electronically Signed: Elmira Hutchison MD at 17:55 EST Tel , Service support , Chest X-Ray 08/20/18 10:33 IMPRESSION: Chronic interstitial changes with superimposed interstitial edema and bilateral pleural effusions. Follow-up recommended to assure resolution. Electronically Signed: Celso Dupont MD at 11:16 EST , Service support , Operations: None Procedures: None Summary of Care Provided: The patient is a 68 year old F Ryan with dizziness. The dizziness began suddenly on the day of admission. Patient was admitted and underwent a stroke workup including an MRI that was negative. Dizziness was felt to be related with benign paroxysmal positional vertigo and recommendation is for patient take meclizine as needed but also to follow-up with the physical therapy for vestibular rehab. Patient also was noted to be hypoxic and short of breath. Chest x-ray was consistent with some mild heart failure with some small pleural effusions. Patient was started on Lasix IV. Patient denies any history of heart failure, though she takes carvedilol, lisinopril and Lasix at home. Patient instructed to follow-up with cardiology. Echocardiogram was offered for the patient while she was here in the hospital but she would prefer to do that as outpatient and to follow-up with cardiology as outpatient. Patient advised that I do not know how to properly treat her heart failure without echocardiogram but I told her that she is stable and certainly appropriate for discharge but she reinforced that she will need to have echocardiogram and to follow-up with cardiology. Patient also does have iron deficiency anemia. Hemoglobin did drop the prior that may been delusional. Patient have low iron and ferritin level. Patient did receive a one-time dose of Venofer. Patient will be started on ferrous sulfate 325 mg daily. Patient follow started follow-up with gastroenterology as outpatient for further anemia evaluation. [] Patient Problems: Active and Suspected Problems Iron deficiency anemia (Acute) Heart failure (Acute) Vertigo (Acute) - Physical Exam General: Alert, Cooperative, No apparent distress HEENT: Atraumatic, PERRLA, EOMI, Normocephalic Oral: Moist Mucosa, No Gingival or Mucosal Lesions/ Ulcerations Neck: No Nodes, Thyroid Normal Size and Texture Lungs: Clear to auscultation, Normal air movement, No rhonchi, No wheeze Cardiovascular: Regular rate, Regular Rhythm, Normal S1, Normal S2 Abdomen: Bowel Sounds Present, Soft, Non Tender, Non-Distended, No Hepato-splenomegaly Extremities: No edema, No Calf Tenderness Skin: No rashes, No breakdown Musculoskeletal: No Tenderness to Palpation of Joints or Extremities, No Muscle Wasting Psych/Mental Status: Normal Affect, Appropriate Vital Signs Temp Pulse Resp BP Pulse Ox 36.4 C L 94 20 H 131/54 H 96 08/21/18 09:04 08/21/18 09:04 08/21/18 09:04 08/21/18 09:04 08/21/18 09:04 Oxygen Flow Rate (L/min) 3 Oxygen Delivery Method Room Air Weight: 79.2 kg Body Mass Index (BMI) 29.9 Intake and Output for Last 24 Hours 08/19/18 08/20/18 08/21/18 23:59 23:59 23:59 Intake Total 3477 / 3477 2275 / 2275 420 / 420 Output Total 1250 / 1250 2350 / 2350 1900 / 1900 Balance 2227 / 2227 -75 / -75 -1480 / -1480 Microbiology Past 72 Hours 08/19/18 02:27 Blood Culture - Preliminary Blood Culture (Wb) - Left Hand No growth in 48 hours. 08/19/18 02:17 Blood Culture - Preliminary Blood Culture (Wb) - Right Hand No growth in 48 hours. 08/19/18 03:00 Gram Stain - Final Sputum, Expectorated/Coughed Respiratory Culture - Final Escherichia coli Laboratory Tests Past 24 Hrs 08/21/18 08/21/18 05:56 05:56 WBC 6.9 RBC 3.30 L Hgb 8.7 L Hct 28.4 L MCV 86.1 MCH 26.4 L MCHC 30.6 L RDW 14.9 H RDW Differential 46.8 H Plt Count 294 MPV 9.4 Immature Gran % (Auto) 0.100 Neut % (Auto) 64.5 Lymph % (Auto) 23.1 [place] % (Auto) 8.5 Eos % (Auto) 3.2 Baso % (Auto) 0.6 Absolute Neuts (auto) 4.5 Absolute Lymphs (auto) 1.60 Total Counted Not Reportable Sodium 146 H Potassium 3.5 Chloride 109 H Carbon Dioxide 27.0 Anion Gap 10 BUN 12 Creatinine 0.80 Estim Creat Clear Calc 58.12 Est GFR (MDRD) Af Amer 92 Est GFR (MDRD) Non-Af 76 BUN/Creatinine Ratio 15.0 Glucose 91 Calcium 8.2 L Discharge Diet: Low fat/ Low Cholesterol, 6 Cup Fluid Restriction, 2000 mg Sodium Diet Discharge Activity: Return to Normal Activity Call your doctor if you observe: Fever of 101 or Higher, Shortness of breath, Swelling in the ankles Home Medications: Medications to take at Discharge Aspirin [Aspir 81] 81 mg PO DAILY 08/17/18 Atorvastatin Calcium [Lipitor] 20 mg PO QHS 08/17/18 Carvedilol 6.25 mg PO BID 08/17/18 Clopidogrel Bisulfate [Clopidogrel] 75 mg PO DAILY 08/17/18 Furosemide [Lasix] 20 mg PO DAILY 08/17/18 Ibuprofen 600 mg PO Q6H PRN PRN 08/17/18 Levetiracetam 500 mg PO BID 08/17/18 Levothyroxine [Synthroid] 50 mcg PO DAILY 08/17/18 Lisinopril 5 mg PO QHS 08/17/18 Multivit,Tx with Iron,Minerals [Thera-M] 1 each PO DAILY 08/17/18 Sertraline HCl 100 mg PO QHS 08/17/18 Ferrous Sulfate 325 mg PO DAILY #30 tab 08/21/18 Meclizine HCl [Antivert] 12.5 mg PO Q8 PRN #20 tab 08/21/18 Following Prescrptions Were Given to Patient: Ferrous Sulfate 325 mg PO DAILY #30 tab Meclizine HCl [Antivert] 12.5 mg PO Q8 PRN #20 tab PRN Reason: Dizziness Other Amb Orders: Echo Complete [ECHO] Location: None Selected CBC W/Diff, Automated Time Frame: 1 Week, Location: Laboratory Physical Therapy Evaluation Location: None Selected Primary Care Physician: Lenin Bhatt MD [Primary Care Provider] - Within 1 Week Please Follow Up With: [facility] - heart failure follow up When: 2-4 weeks Please Follow Up With: Ac Thomas MD - anemia follow up When: 1-2 months Disposition: Home Minutes spent on discharge:: 35 Patient Condition:: Good Medical Necessity - Tobacco Use Smoking Status: Former smoker Tobacco Use: Cigarettes Meaningful Use Info Meaningful Use Diagnoses (Choose all that apply): CHF - CHF ALYSIA/ARB ordered at discharge?: Yes Documented LVEF (%): 0 - unknown. echo as outpt. Code Visit Inpatient E&M: 62021 Disch Hosp
--- NOTE | 2018-08-21 10:52 | DS.PCM_ITS ---
Discharge Date and Diagnosis - Problem List Patient Problems: Active and Suspected Problems Iron deficiency anemia (Acute) Heart failure (Acute) Vertigo (Acute) Date of Admission: 08/17/18 Date of Discharge: 08/21/18 - Primary Discharge Diagnosis Active and Suspected Problems Heart failure (Acute) Vertigo (Acute) Hospital Course and Treatment Imaging Results: Clinical Impression(s) from Imaging Studies Brain CT 08/17/18 17:46 IMPRESSION: Age-related changes of the brain. Old left frontal infarct. Electronically Signed: Micky Medina DO at 18:42 EST Tel [phone], Service support , Chest X-Ray 08/18/18 23:45 IMPRESSION: Possible early right upper lobe pneumonia. Electronically Signed: Claudia Lerma MD at 0:46 EST Tel , Service support , Brain MRI 08/19/18 14:21 IMPRESSION: 1. No acute process. 2. Chronic left frontal infarct. 3. Demonstrated left ICA appears occluded. 4. Microvascular ischemia. Atrophy. Electronically Signed: Elmira Hutchison MD at 17:55 EST Tel , Service support , Chest X-Ray 08/20/18 10:33 IMPRESSION: Chronic interstitial changes with superimposed interstitial edema and bilateral pleural effusions. Follow-up recommended to assure resolution. Electronically Signed: Celso Dupont MD at 11:16 EST , Service support , Operations: None Procedures: None Summary of Care Provided: The patient is a 68 year old F Ryan with dizziness. The dizziness began suddenly on the day of admission. Patient was admitted and underwent a stroke workup including an MRI that was negative. Dizziness was felt to be related with benign paroxysmal positional vertigo and recommendation is for patient take meclizine as needed but also to follow-up with the physical therapy for vestibular rehab. Patient also was noted to be hypoxic and short of breath. Chest x-ray was consistent with some mild heart failure with some small pleural effusions. Patient was started on Lasix IV. Patient denies any history of heart failure, though she takes carvedilol, lisinopril and Lasix at home. Patient instructed to follow-up with cardiology. Echocardiogram was offered for the patient while she was here in the hospital but she would prefer to do that as outpatient and to follow-up with cardiology as outpatient. Patient advised that I do not know how to properly treat her heart failure without echocardiogram but I told her that she is stable and certainly appropriate for discharge but she reinforced that she will need to have echocardiogram and to follow-up with cardiology. Patient also does have iron deficiency anemia. Hemoglobin did drop the prior that may been delusional. Patient have low iron and ferritin level. Patient did receive a one-time dose of Venofer. Patient will be started on ferrous sulfate 325 mg daily. Patient follow started follow-up with gastroenterology as outpatient for further anemia evaluation. [] Patient Problems: Active and Suspected Problems Iron deficiency anemia (Acute) Heart failure (Acute) Vertigo (Acute) - Physical Exam General: Alert, Cooperative, No apparent distress HEENT: Atraumatic, PERRLA, EOMI, Normocephalic Oral: Moist Mucosa, No Gingival or Mucosal Lesions/ Ulcerations Neck: No Nodes, Thyroid Normal Size and Texture Lungs: Clear to auscultation, Normal air movement, No rhonchi, No wheeze Cardiovascular: Regular rate, Regular Rhythm, Normal S1, Normal S2 Abdomen: Bowel Sounds Present, Soft, Non Tender, Non-Distended, No Hepato- splenomegaly Extremities: No edema, No Calf Tenderness Skin: No rashes, No breakdown Musculoskeletal: No Tenderness to Palpation of Joints or Extremities, No Muscle Wasting Psych/Mental Status: Normal Affect, Appropriate Vital Signs Temp Pulse Resp BP Pulse Ox 36.4 C L 94 20 H 131/54 H 96 08/21/18 09:04 08/21/18 09:04 08/21/18 09:04 08/21/18 09:04 08/21/18 09:04 Oxygen Flow Rate (L/min) 3 Oxygen Delivery Method Room Air Weight: 79.2 kg Body Mass Index (BMI) 29.9 Intake and Output for Last 24 Hours 08/19/18 08/20/18 08/21/18 23:59 23:59 23:59 Intake Total 3477 / 3477 2275 / 2275 420 / 420 Output Total 1250 / 1250 2350 / 2350 1900 / 1900 Balance 2227 / 2227 -75 / -75 -1480 / -1480 Microbiology Past 72 Hours 08/19/18 02:27 Blood Culture - Preliminary Blood Culture (Wb) - Left Hand No growth in 48 hours. 08/19/18 02:17 Blood Culture - Preliminary Blood Culture (Wb) - Right Hand No growth in 48 hours. 08/19/18 03:00 Gram Stain - Final Sputum, Expectorated/Coughed Respiratory Culture - Final Escherichia coli Laboratory Tests Past 24 Hrs 08/21/18 08/21/18 05:56 05:56 WBC 6.9 RBC 3.30 L Hgb 8.7 L Hct 28.4 L MCV 86.1 MCH 26.4 L MCHC 30.6 L RDW 14.9 H RDW Differential 46.8 H Plt Count 294 MPV 9.4 Immature Gran % (Auto) 0.100 Neut % (Auto) 64.5 Lymph % (Auto) 23.1 [place] % (Auto) 8.5 Eos % (Auto) 3.2 Baso % (Auto) 0.6 Absolute Neuts (auto) 4.5 Absolute Lymphs (auto) 1.60 Total Counted Not Reportable Sodium 146 H Potassium 3.5 Chloride 109 H Carbon Dioxide 27.0 Anion Gap 10 BUN 12 Creatinine 0.80 Estim Creat Clear Calc 58.12 Est GFR (MDRD) Af Amer 92 Est GFR (MDRD) Non-Af 76 BUN/Creatinine Ratio 15.0 Glucose 91 Calcium 8.2 L Discharge Diet: Low fat/ Low Cholesterol, 6 Cup Fluid Restriction, 2000 mg Sodium Diet Discharge Activity: Return to Normal Activity Call your doctor if you observe: Fever of 101 or Higher, Shortness of breath, Swelling in the ankles Home Medications: Medications to take at Discharge Aspirin [Aspir 81] 81 mg PO DAILY 08/17/18 Atorvastatin Calcium [Lipitor] 20 mg PO QHS 08/17/18 Carvedilol 6.25 mg PO BID 08/17/18 Clopidogrel Bisulfate [Clopidogrel] 75 mg PO DAILY 08/17/18 Furosemide [Lasix] 20 mg PO DAILY 08/17/18 Ibuprofen 600 mg PO Q6H PRN PRN 08/17/18 Levetiracetam 500 mg PO BID 08/17/18 Levothyroxine [Synthroid] 50 mcg PO DAILY 08/17/18 Lisinopril 5 mg PO QHS 08/17/18 Multivit,Tx with Iron,Minerals [Thera-M] 1 each PO DAILY 08/17/18 Sertraline HCl 100 mg PO QHS 08/17/18 Ferrous Sulfate 325 mg PO DAILY #30 tab 08/21/18 Meclizine HCl [Antivert] 12.5 mg PO Q8 PRN #20 tab 08/21/18 Following Prescrptions Were Given to Patient: Ferrous Sulfate 325 mg PO DAILY #30 tab Meclizine HCl [Antivert] 12.5 mg PO Q8 PRN #20 tab PRN Reason: Dizziness Other Amb Orders: Echo Complete [ECHO] Location: None Selected CBC W/Diff, Automated Time Frame: 1 Week, Location: Laboratory Physical Therapy Evaluation Location: None Selected Primary Care Physician: Lenin Bhatt MD [Primary Care Provider] - Within 1 Week Please Follow Up With: [facility] - heart failure follow up When: 2-4 weeks Please Follow Up With: Ac Thomas MD - anemia follow up When: 1-2 months Disposition: Home Minutes spent on discharge:: 35 Patient Condition:: Good Medical Necessity - Tobacco Use Smoking Status: Former smoker Tobacco Use: Cigarettes Meaningful Use Info Meaningful Use Diagnoses (Choose all that apply): CHF - CHF ALYSIA/ARB ordered at discharge?: Yes Documented LVEF (%): 0 - unknown. echo as outpt. Code Visit Inpatient E&M: 20781 Disch Hosp
--- NOTE | 2018-08-21 12:30 | NURSING ---
pt's son William Patel came onto unit with raised voice and visibly agree asking why his was not notified pt was being discharge. Explained to son that pt is alert and oriented that his brother Abundio whom is listed first was notified by primary, we would leave it up to the patient whom she waNted called if she is alert and oriented. Son was asked if he has documentation that he is POA as none listed on the chart. States would not be bringing any into us. pt's son then demands that we get the patient ready they are taking her home. This nurse discussed discharge with primary RN. Aware that it was the patient's request that Abundio be notified of discharge as she felt William would be sleeping since he works shift mechanic. Discussed with primary RN going over instructions w/ family. This nurse into room. pt found sitting in recliner, son sitting on the bed. Verbalized that again per primary RN it was the patient's wishes that Abundio was called regarding discharged as William had worked and would be sleeping. Patient verified this. William then stated that noone has told him anything as this nurse attempted to explain discharge paper including CHF zone sheet. With the patient present this nurse pulled up 's last note. William again maked statements that she had been discharged in the past with a diagnosis of CHF and other physician's stated it wasn't what she had and they would from now on just take her to [facility]. 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 Discussed 's notes of xray results and what CHF is. Discussed dizziness including medication. Discussed entire discharge instructions, diet restriction, medication list, medication to stop, prescriptions, zone management tool and followup. Pt up to bathroom with ANALYTICAL LEAD to get dress. Pt denies all further question. Son William denied all further questions and verbalized appreciation for the explination. ANALYTICAL LEAD remained with pt and escorted her out in wheelchair with family.
== END 2018-08-21 12:39 | disposition home or self-care (01) ==
LOC: ED 18:36 → MS3 19:18
PROVIDERS: Internal Medicine; Student in an Organized Health Care Education/Training Program; Admitting Provider Internal Medicine; Emergency Provider Emergency Medicine; Family Provider Internal Medicine; PCP Internal Medicine; Referring Provider Internal Medicine
DX: I11.0 Hypertensive heart disease with heart failure (principal); I50.9 Heart failure, unspecified; D50.9 Iron deficiency anemia, unspecified; R42 Dizziness and giddiness; R09.02 Hypoxemia; R11.2 Nausea with vomiting, unspecified; I69.320 Aphasia following cerebral infarction; E78.5 Hyperlipidemia, unspecified; G40.909 Epilepsy, unspecified, not intractable, without status epilepticus; E03.9 Hypothyroidism, unspecified; Z87.891 Personal history of nicotine dependence; Z79.899 Other long term (current) drug therapy; Z79.82 Long term (current) use of aspirin; Z79.02 Long term (current) use of antithrombotics/antiplatelets; I44.7 Left bundle-branch block, unspecified
CPT/HCPCS: 36415; 70450; 70551; 71045; 71046; 80048; 82728; 83036; 83540; 83550; 84443; 84484; 85014; 85018; 85025; 87040; 87070; 87186; 87205; 93005; 96361; 96365; 96366; 96367; 96372; 96375; 96376; 97110; 97116; 97162; 97165; 97530; 97802; 99218; 99284; J1756; J7030; A4216; G0378; J1940; J2405

== ENCOUNTER 2020-08-18 18:08 | Emergency (ER) | payer MEDICARE, SELFPAY ==
[2020-08-18 18:08] VITALS: BMI 29.9
[2020-08-18 18:09] VITALS: BP 144/77; PULSE 85; RESP 18; TEMP 36.4; O2SAT 96; BMI 27.4
--- NOTE | 2020-08-18 18:31 | ED.DCSUM_ITS ---
- ER Visit Summary Date of Service: 08/18/20 Chief Complaint: Left hand laceration History of Present Illness: The patient is a 70 F who presents with laceration to her left hand that occurred today. Patient hit her hand on a shelf at [facility]. Patient admits to some mild bleeding. Patient states her last tetanus shot was within 5 years. Patient denies any paresthesias or weakness. Patient states her pain is worse with certain movements. Patient states the bleeding stopped after several minutes. Patient denies any other injuries. Physical Examination: Vital signs are stable. Patient is afebrile. Patient is in no acute distress. Skin is warm dry. There is a 2 cm partial-thickness skin tear over the dorsal aspect of the left hand. There is no active bleeding noted. There is no bony tenderness or crepitance noted. Sensation was intact to light touch in all digits. Capillary refill was less than 2 seconds in all digits. Strength is 5/5 in the radial, median, and ulnar areas. There is no tenderness over the forearm or elbow. Heart was regular rate and rhythm. Lungs are clear and equal bilaterally. Abdomen is soft and nontender. Cranial nerves II through XII are intact. There are no focal motor or sensory deficits. Emergency Department Course and Treatment: The wound was cleaned and dressed with bacitracin dressing. Patient was instructed to keep the wound clean and dry. Patient was instructed to follow-up with her primary care physician in 5 to 7 days. Patient understood and was agreeable with the plan. All questions were answered. Disposition: Discharge home Impression: Skin tear left hand This note was generated with [employer] dictation software. It may contain incorrect words, spelling, and punctuation that were not noted in review of the chart p rior to signing ED Disposition - Plan for ED Patient: Disposition: Home or Assisted Living Diagnosis: Skin tear of left hand without complication Instructions: ED Laceration Small or ... Referrals: Lenin Bhatt MD [Primary Care Provider] - 5-7 Days
[2020-08-18] MEDS: BACITRACIN 15 GM Tube 1 APPLIC TOPICAL (18:36)
[2020-08-18 18:37] VITALS: O2SAT 99
== END 2020-08-18 18:56 | disposition home or self-care (01) ==
LOC: ED 18:39
PROVIDERS: Emergency Provider Emergency Medicine; PCP Internal Medicine
DX: S61.412A Laceration without foreign body of left hand, initial encounter (principal); W22.09XA Striking against other stationary object, initial encounter; Y93.9 Activity, unspecified; Y92.512 Supermarket, store or market as the place of occurrence of the external cause; Y99.9 Unspecified external cause status; I50.9 Heart failure, unspecified; Z86.73 Personal history of transient ischemic attack (TIA), and cerebral infarction without residual deficits; Z85.528 Personal history of other malignant neoplasm of kidney; Z79.02 Long term (current) use of antithrombotics/antiplatelets; Z79.82 Long term (current) use of aspirin; Z79.899 Other long term (current) drug therapy
CPT/HCPCS: 99284

== ENCOUNTER 2020-08-28 15:02 | Inpatient (IN) | payer MEDICARE, MEDICAID, SELFPAY ==
[2020-08-28 15:02] VITALS: BP 103/60; PULSE 87; RESP 28; TEMP 36.5; O2SAT 93; BMI 29.0
--- NOTE | 2020-08-28 15:34 | EKG12_ITS ---
Test Reason : WEAKNESS Blood Pressure : / mmHG Vent. Rate : 084 BPM Atrial Rate : 084 BPM P-R Int : 158 ms QRS Dur : 130 ms QT Int : 444 ms P-R-T Axes : 067 000 058 degrees QTc Int : 524 ms Normal sinus rhythm Non-specific intra-ventricular conduction block Abnormal ECG Confirmed by GARCÍA SIMON, DEMARCUS ([id number]), editorial writer KARYNA RAY ([id number]) on 09/02/2020 9:28:24 AM Referred By: СВЕТЛАНА Confirmed By:DAYANNA MARIANO MD
--- NOTE | 2020-08-28 15:43 | ED.DCSUM_ITS ---
- ER Visit Summary Date of Service: 08/28/20 Chief Complaint: General weakness History of Present Illness: The patient is a 70 F who presents with generalized weakness that became worse today. Son states that this has been getting worse over the past 6 days. Son states the patient was unable to stand today. Son states that patient was in the shower on a chair and was unable to stand so he can wash her. Son reports patient was having back pain at that time. Son also reports patient has had a cough. Son states that the patient has also had some nausea, vomiting, diarrhea. Son reports that the patient has not been eating or drinking much recently. Son denies any recent fevers or chills. Physical Examination: Vital signs are stable. Patient is afebrile. Patient is in no acute distress. Neck is supple. Trachea is midline. There is no JVD. Heart was regular rate and rhythm. Lungs are clear and equal bilaterally. Abdomen is soft. Bowel sounds are normal. There is no tenderness. Cranial nerves II through XII are grossly intact. There are no focal motor or sensory deficits noted. Extremities are intact. There is no calf tenderness or edema. Test Results: EKG was obtained. On my interpretation, it shows a normal sinus rhythm with a rate of 84. There is a left bundle branch block pattern noted. There are no acute ST or T wave changes. This is unchanged compared to previous EKG dated 08/17/2018. CBC shows a slight anemia with a hemoglobin of 10.8 hematocrit 33.0. Comprehensive metabolic profile showed an elevated BUN of 59 and a creatinine of 2.53. These were increased from previous results. PT with INR and PTT were normal. Troponin was normal. Portable 1 view chest x-ray was obtained. On my interpretation, lung gamino are clear. There is normal cardiac silhouette. Bony thorax is normal. There is no acute process noted. Radiologist also interpreted the x-ray and agrees. COVID-19 rapid antigen was obtained and is pending. Influenza swab was obtained and is pending. Urinalysis was ordered and is pending. Emergency Department Course and Treatment: Patient was given IV fluids. Patient was advised of her findings. Patient was advised of her need for admission to the hospital for rehydration. Case was discussed with the hospitalist. She will admit the patient to hospitalist. Patient understands and is agreeable with the plan. All questions were answered Disposition: Admit to hospital Impression: 1. Acute kidney injury 2. General weakness This note was generated with [employer] dictation software. It may contain incorrect words, spelling, and punctuation that were not noted in review of the chart prior to signing ED Disposition - Plan for ED Patient: Referrals: Lenin Bhatt MD [Primary Care Provider] -
[2020-08-28 15:57] LABS: Absolute Lymphocyte Count 1.04 X10^3/uL (0.83-4.51); Absolute Neutrophil Count 2.9 X10^3/uL (2.0-7.7); Basophil# 0.01 X10^3/uL; Basophil% 0.2 % (0-1); Eosinophil# 0.01 X10^3/uL; Eosinophils% 0.2 % (0-5); Hemoglobin 10.8 g/dL (12.0-15.0); Lymphocyte # 1.04 X10^3/ul (4.0); Lymphocyte % 24.1 % (19-41); Mean Corp Hgb Conc 32.7 g/dL (32-36); Mean Corpuscular Hgb 29.7 pg (27.0-32.0); Mean Corpuscular Volume 90.7 fL (81-99); Mean Platelet Vol. 10.7 fl (6.2-12.0); Monocyte# 0.32 X10^3/uL; Monocyte% 7.4 % (0-10); NRBC Flagged by Analyzer 0 % (0-5); Neutrophil # 2.91 X10^3/uL (2.7-7.7); Neutrophil % 67.6 % (47-70); Platelet Count 218 K/mm3 (150-450); RBC Distribution Width CV 13.3 % (11.6-14.6); RBC Distribution Width SD 45.1 fl (35.1-43.9); Red Blood Count 3.64 M/mm3 (4.2-5.4); White Blood Count 4.3 K/mm3 (4.4-11.0)
[2020-08-28 16:06] VITALS: BP 105/49; PULSE 86; RESP 27; TEMP 36.6; O2SAT 100
[2020-08-28 16:09] LABS: Partial Thromboplast Time 26.5 Seconds (24.1-36.2); Prothrombin Time (Protime)PT. 13.1 SECONDS (11.7-14.9)
[2020-08-28 16:12] LABS: Mucous, Urine 0 SEEN /hpf (<or=2+)
[2020-08-28 16:12] LABS: ALB/GLOB Ratio 0.8 RATIO (0.9-2.4); AST(SGOT) 26 U/L (15-37); Alanine Aminotransfer ALT/SGPT 22 U/L (13-56); Albumin, Serum 3.1 g/dL (3.2-5.0); Alkaline Phosphatase 55 U/L (45-117); Anion Gap 11 (5-15); BUN 59 mg/dL (7-18); BUN/Creat Ratio 23.3 RATIO (10-20); Calcium,Total 8.3 mg/dL (8.5-10.1); Chloride 103 mmol/L (98-107); Creatinine, Serum 2.53 mg/dL (0.55-1.02); EST Glomerular Filtration Rate 20 mL/min (>60); Est Glom Filt Rate - Afr Amer 24 mL/min (>60); Estimated Creatinine Clearance 17.87 ml/min; Glucose 101 mg/dL (74-106); Potassium 4.1 mmol/L (3.5-5.1); Protein, Total 7.1 g/dL (6.4-8.2); Sodium Level 136 mmol/L (136-145)
[2020-08-28 16:17] LABS: Lactic Acid 1.1 mmol/L (0.4-1.9)
--- NOTE | 2020-08-28 16:22 | RAD_ITS ---
STUDY: X-RAY CHEST REASON FOR EXAM: Female, 70 years old. COUGH, N/V, WEAKNESS SINCE 08/22. HX OF CVA WITH RESIDUAL APHASIA. TECHNIQUE: Single AP portable view of the chest. COMPARISON: 08/20/2018. FINDINGS: The lungs are clear and expanded. There is no demonstrated pleural abnormality. Normal size heart. Normal mediastinum and sunita. Normal visualized pulmonary arteries. Normal visualized aortic arch and descending thoracic aorta. Normal visualized thoracic spine. Normal visualized ribs, clavicles, and shoulders. There is no demonstrated abnormality of the visualized soft tissue structures of the upper abdomen. RAD/Chest 1 View (Portable) IMPRESSION: Normal x-ray examination of the chest. Electronically Signed: Chaparro Ornelas MD at 16:48 EST , Service support ,
[2020-08-28 16:57] VITALS: BMI 29.0
[2020-08-28 17:21] VITALS: BP 104/65; PULSE 87; RESP 20; TEMP 36.6; O2SAT 97
[2020-08-28 17:27] VITALS: BMI 28.4
--- NOTE | 2020-08-28 17:27 | PCS.PANDOC ---
PANDEMIC DOCUMENTATION INITIATED: Date: 08/28/2020 Time: 8261
[2020-08-28] MEDS: 0.9% Normal Saline 1,000 ML 1000 ML IV (17:29)
[2020-08-28 17:30] VITALS: BP 103/55; PULSE 86; RESP 24; O2SAT 98
[2020-08-28 17:38] LABS: Color, Urine Yellow (Yellow); Glucose, Dipstick Normal (Normal); Ketone-Dipstick Negative (Negative); Leukocyte Esterase-Dipstick 25 /ul (Negative); Nitrite-Dipstick Positive (Negative); Occult Blood-Urine 25 /ul (Negative); Protein-Dipstick 15 mg/dl (Negative); Specific Gravity, Urine 1.025 (1.002-1.030); Urine Bilirubin Dipstick Negative (Negative); Urine Clarity Sl. Cloudy (Clear); Urine Urobilinogen Normal (Normal)
--- NOTE | 2020-08-28 17:41 | ED.RN ---
ROSS SON ARMIDA REQUESTS HE MAKE ALL MEDICAL DECISIONS FOR PT. THIS RN EXPLAINED POA WILL COME IN TO PLAY IF PT UNABLE TO MAKE OWN DECISIONS. ROSS STATES HE IS NOW INVOKING MY POA AND I WILL MAKE ALL DECISIONS. PT ABLE TO COMMUNICATE WITH THIS RN IN ED, ABLE TO MAKE NEEDS KNOWN AT THIS TIME.
[2020-08-28 17:47] LABS: Bacteria 1+ /hpf (None Seen); Red Blood Cells-Urine 0-5 SEEN /hpf (0-5); Squamous Epithelial Cells - UA 0-5 SEEN /hpf (5-10); White Blood Cells 0-5 SEEN /hpf (0-5); Yeast-Urine 1+ /hpf (None Seen)
[2020-08-28 18:03] LABS: Fibrinogen 525 mg/dl (203-444)
[2020-08-28 18:13] LABS: D-Dimer Quantitative (DVT/PE) 0.61 FEU/ug/m (0.27-0.49)
[2020-08-28 20:41] VITALS: BP 112/44; PULSE 93; RESP 16; TEMP 36.8; O2SAT 97
[2020-08-28] MEDS: Atorvastatin Calcium 20 MG Tablet PO (20:44)
[2020-08-28] MEDS: levETIRAcetam 500 MG Tablet PO (20:44)
[2020-08-28] MEDS: Sertraline 100 MG Tablet PO (20:44)
[2020-08-28] MEDS: Carvedilol 12.5 MG Tablet PO (20:44)
[2020-08-28 20:46] VITALS: O2SAT 97
--- NOTE | 2020-08-28 21:19 | PCM.HP.STD ---
Problem List (1) COVID-19 Status: Acute (2) Leukopenia Status: Acute (3) THEODORE (acute kidney injury) Status: Acute (4) Hyperlipemia Status: Chronic (5) CAD (coronary artery disease) Status: Chronic (6) Seizure Status: Chronic (7) Depression Status: Chronic (8) Hypothyroid Status: Chronic (9) HTN (hypertension) Status: Chronic (10) Iron deficiency anemia Status: Chronic (11) Heart failure Status: Chronic (12) Vertigo Status: Chronic History of Present Illness Date of Admission: 08/28/20 Ms Lopez is a 70 year old F with a past medical history of CAD, seizure disorder, hypertension, hyperlipidemia, hypothyroidism, vertigo, and depression who presented to the emergency department on August 28, 2020 with generalized weakness that has progressively been worsening. Per ER documentation the son reported that she had been getting worse over the last 6 days and today was unable to stand. He also reported and she confirmed she has had a recent cough nausea, vomiting, and diarrhea. Her p.o. intake has been poor. The patient complains of chills intermittently but no known fever. She denies myalgias, change in taste or smell, documented fever, sore throat, and shortness of breath. Her vital signs in the emergency department are unremarkable. Her oxygen saturation on 2 L nasal cannula is 97 to 98%. Her lab work shows a mild leukopenia with a white count of 4.3 a mild chronic anemia which is stable, and a markedly elevated creatinine at 2.53 with her baseline being 0.7-0.8 last measured here in July 2018. Her lactic acid is within normal limits. Her EKG is stable and has no signs of acute ischemia. Her UA is suggestive of marked dehydration with a specific gravity of 1.025. Her UA is also positive for nitrites and leuk esterase. Minimal white blood cells were noted on her UA. A D-dimer was obtained and was 0.61 but this is normal with age correction. Upon my examination she was alert and oriented x4. Per discussion with ER staffing her son wanted to invoke healthcare power of estate planning attorney status but without her having any change in mental status or orientation she will serve as her own healthcare decision maker at this time. I did discuss CODE STATUS with her and she would like to be DNR CCA with no intubation and does express that she understands this by saying if this was needed and she did not receive it she would . Past Medical History Past Medical History (Chronic Problems): Chronic Problems Hyperlipemia (Chronic) CAD (coronary artery disease) (Chronic) Seizure (Chronic) Depression (Chronic) Hypothyroid (Chronic) HTN (hypertension) (Chronic) Iron deficiency anemia (Chronic) Heart failure (Chronic) Vertigo (Chronic) Allergies No Known Allergies Allergy (Verified 08/28/20 15:07) Home Medications: Ambulatory Orders Medication Instructions Recorded Atorvastatin Calcium [Lipitor] 20 mg PO QHS 08/17/18 Clopidogrel Bisulfate [Clopidogrel] 75 mg PO DAILY 08/17/18 Furosemide [Lasix] 20 mg PO DAILY 08/17/18 Levetiracetam 500 mg PO BID 08/17/18 Levothyroxine [Synthroid] 50 mcg PO DAILY 08/17/18 Lisinopril 5 mg PO QHS 08/17/18 Sertraline HCl 100 mg PO QHS 08/17/18 Meclizine HCl [Antivert] 12.5 mg PO Q8 PRN #20 tab 08/21/18 Aspirin E.C. [Ecotrin] 81 mg PO DAILY@0800 08/28/20 Carvedilol [Coreg] 12.5 mg PO BID 08/28/20 Chlorpheniramine/Dextromethorp 1 - 2 tab PO Q4H PRN PRN 08/28/20 [Coricidin Hbp Cough & Cold Tab] Multivit,Calc,Mins/Iron/Folic 1 tab PO DAILY 08/28/20 [Thera-M Tablet] Smoking Status: Smoker, status unknown Tobacco Use: Non-smoker - *Family History Maternal History Items: No pertinent history Paternal History Items: - - multiple myeloma Review of Systems Constitutional: Reports: Anorexia, Chills, Malaise, Weakness, Fatigue. Denies: Fever, Night Sweats, Weight Change Eyes: Denies: Conjunctivae Inflammation, Drainage, Eyelid Inflammation, Pain, Redness, Vision Change HEENT: Denies: Difficulty Hearing, Ear Pain, Eye Pain, Head Aches, Nasal bleeding, Nasal Congestion, Post Nasal Drip, Sinus Congestion, Sinus Drainage, Sore Throat, Visual Changes Cardiovascular: Denies: Chest Pain, Claudication, Chest Pressure, Chest Tightness, Edema, Heaviness, Light Headedness, Orthopnea, Palpitations, Paroxysmal Noc. Dyspnea, Syncope Respiratory: Reports: Cough, Shortness of Breath, Shortness of breath at rest, Shortness of breath upon exertion. Denies: Hemoptysis, Pleuritic Pain, Sputum production, Wheezing Gastrointestinal: Reports: Diarrhea, Nausea, Vomiting. Denies: Abdominal Pain, Constipation, Dyspepsia, Hematemesis, Hematochezia Genitourinary: Reports: Dysuria. Denies: Frequency, Hematuria, Hesitancy, Incontinence, Nocturia, Retention, Urgency Musculoskeletal: Denies: Back Pain, Joint Pain, Joint stiffness, Joint swelling, Joint Tenderness, Muscle pain, Neck Pain Skin: Denies: Dryness, Jaundice, Lesions, Pruritis, Rash, Skin Changes, Wounds Neurological: Reports: - - Generalized weakness. Denies: Balance problems, Slurred speech, Confusion, Difficulty swallowing, Focal weakness, Headaches, Incoordination, Numbness, Tingling, Tremor, Seizures Psychiatric: Reports: Depression. Denies: Anxiety Endocrine: Denies: Change in Body Habitus, Heat/ Cold Intolerance, Polydipsia, Polyuria Hematologic/ Lymphatic: Denies: Adenopathy, Anemia, Easy Bruising, Easy Bleeding, Petechiae, Purpura VTE Information - Inpt Only VTE Present on Admission: No VTE Mechan Device Prophylaxis: SCD's VTE Pharm Prophylaxis ordered?: Yes Patient Problems: Active and Suspected Problems COVID-19 (Acute) Leukopenia (Acute) THEODORE (acute kidney injury) (Acute) - Physical Exam Vitals/I&O's: Vital Signs Temp Pulse Resp BP Pulse Ox 98.3 F 93 16 112/44 L 97 08/28/20 20:41 08/28/20 20:41 08/28/20 20:41 08/28/20 20:41 08/28/20 20:46 Oxygen Flow Rate (L/min) 2 Oxygen Delivery Method Nasal Cannula Weight: 75.1 kg Body Mass Index (BMI) 28.4 Intake and Output for Last 24 Hours 08/26/20 08/27/20 08/28/20 23:59 23:59 23:59 Intake Total 1600 / 1600 Balance 1599 / 1599 General: Alert, Oriented x3, Cooperative, No apparent distress, Well developed, Well nourished, - - Older white female lying in bed, appears comfortable, nontoxic HEENT: Atraumatic, PERRLA, EOMI, Normocephalic, EAC Clear Oral: No Gingival or Mucosal Lesions/ Ulcerations, Dry Mucosa, - - Poor dentition, Mallampati 2 Neck: Supple, No JVD, No Nodes, Trachea Midline, Thyroid Normal Size and Texture Lungs: Clear to auscultation, No rhonchi, No wheeze, No rales, Diminished Cardiovascular: Regular rate, Regular Rhythm, Normal S1, Normal S2, No murmurs, No Ectopic Activity, No rub noted, No Gallop Abdomen: Bowel Sounds Present, Soft, Non Tender, Non-Distended, Obese Extremities: No clubbing, No cyanosis, No edema, Capillary Refill Less than 3 Seconds, Peripheral Pulses Normal Skin: No rashes, No breakdown Musculoskeletal: No Tenderness to Palpation of Joints or Extremities, No Muscle Wasting, Arthritic Changes Lymphatic: No Cervical, Supraclavicular, or Inguinal Adenopathy Neurological: Cranial nerves II-XII grossly intact, Deep Tendon Reflexes 2+/4 and Symmetrical, Neuro grossly intact, Muscle tone normal, Coordination normal, - - Generalized weakness noted proximal greater than distal Psych/Mental Status: Normal Affect, Appropriate Microbiology Past 72 Hours 08/28/20 15:40 Mucosa - Nose SARS-CoV-2 Antigen (Rapid) - Final SARS-CoV-2 (COVID 19) 08/28/20 15:40 Mucosa - Nose Influenza Types A,B Direct FA (JUAN) - Final Laboratory Results 08/28/20 15:40: WBC 4.3 L, RBC 3.64 L, Hgb 10.8 L, Hct 33.0 L, MCV 90.7, MCH 29.7, MCHC 32.7, RDW Std Deviation 45.1 H, RDW Coeff of Lev 13.3, Plt Count 218, MPV 10.7, Immature Gran % (Auto) 0.500, Neut % (Auto) 67.6, Lymph % (Auto) 24.1, [place] % (Auto) 7.4, Eos % (Auto) 0.2, Baso % (Auto) 0.2, Absolute Neuts (auto) 2.9, Absolute Lymphs (auto) 1.04, Nucleated RBC % 0 08/28/20 15:40: PT 13.1, INR 1.0, APTT 26.5 08/28/20 15:40: Sodium 136, Potassium 4.1, Chloride 103, Carbon Dioxide 22.0, Anion Gap 11, BUN 59 H, Creatinine 2.53 H, Estim Creat Clear Calc 17.87, Est GFR (MDRD) Af Amer 24 L, Est GFR (MDRD) Non-Af 20 L, BUN/Creatinine Ratio 23.3 H, Glucose 101, Calcium 8.3 L, Total Bilirubin 0.30, AST 26, ALT 22, Alkaline Phosphatase 55, Troponin I < 0.015, Total Protein 7.1, Albumin 3.1 L, Globulin 4.0, Albumin/Globulin Ratio 0.8 L 08/28/20 15:40: Lactic Acid 1.1 08/28/20 15:40: Fibrinogen 525 H, D-Dimer Quant (PE/DVT) 0.61 H* 08/28/20 16:05: Urine Color Yellow, Urine Clarity Sl. Cloudy, Urine pH 5.0, Ur Specific [place] 1.025, Urine Protein 15 H, Urine Glucose (UA) Normal, Urine Ketones Negative, Urine Occult Blood 25 H, Urine Nitrite Positive H, Urine Bilirubin Negative, Urine Urobilinogen Normal, Ur Leukocyte Esterase 25 H, Urine RBC 0-5 SEEN, Urine WBC 0-5 SEEN, Ur Squamous Epith Cells 0-5 SEEN, Urine Bacteria 1+, Urine Mucus 0 SEEN, Urine Yeast 1+ Current Medications Aspirin (Aspirin E.C. 81 Mg Tablet) 81 mg PO DAILY [facility] Atorvastatin Calcium (Atorvastatin Calcium 20 Mg Tablet) 20 mg PO QHS [facility] Last Admin: 08/28/20 20:44 Dose: 20 mg Documented by: Carvedilol (Carvedilol 12.5 Mg Tablet) 12.5 mg PO BID [facility] Last Admin: 08/28/20 20:44 Dose: 12.5 mg Documented by: Clopidogrel Bisulfate (Clopidogrel Bisulfate 75 Mg Tablet) 75 mg PO DAILY [facility] Levetiracetam (Levetiracetam 500 Mg Tablet) 500 mg PO BID [facility] Last Admin: 08/28/20 20:44 Dose: 500 mg Documented by: Levothyroxine Sodium (Levothyroxine 50 Mcg Tablet) 50 mcg PO DAILY [facility] Multivitamins (Multivitamins,Therapeutic Tablet) 1 tablet PO DAILY [facility] Sertraline HCl (Sertraline 100 Mg Tablet) 100 mg PO QHS [facility] Last Admin: 08/28/20 20:44 Dose: 100 mg Documented by: Sodium Chloride (0.9% Saline Lock 10 Ml Syringe) 10 - 40 ml IV UD PRN PRN Reason: SALINE FLUSH Assessment/Plan All Active Problems COVID-19 (Acute) Leukopenia (Acute) THEODORE (acute kidney injury) (Acute) COVID-19 pneumonia -Admit to Covid unit -Start Decadron and remdesivir -D-dimer obtained and when age corrected is within normal limits so will therefore start prophylactic heparin -Supportive care -Oxygen as needed and wean as able -Consult infectious disease Acute kidney injury secondary to dehydration -Normal creatinine 0.7-0.8 -We will hydrate with normal saline at 100 cc/h -If creatinine does not improve with hydration would recommend urine studies and retroperitoneal ultrasound -Check CMP in a.m. -Hold home Lasix and lisinopril -Avoid nephrotoxins as able Leukopenia -Suspect related to Covid -Monitor counts Hypothyroidism -Check TSH -Continue home levothyroxine Coronary artery disease -Continue aspirin and Plavix -continue beta-mo -EKG showed no acute ischemic changes -Troponins negative Possible urinary tract infection -UA is suggestive of UTI -We will start ceftriaxone -If culture negative would discontinue Hypertension -Continue home Coreg -Old lisinopril Seizure disorder -Continue Keppra Depression -Continue Zoloft Overweight -Combined weight loss Vertigo -Hold Antivert at this time DVT prophylaxis -Heparin 5000 units 3 times a day CODE STATUS -Per discussion with the patient in the ER he was alert and oriented x4 and understood the ramifications of withholding CPR or endotracheal tube if needed would like to be DNR CCA with no intubation -At this time she is able to make her own healthcare decisions and does not need healthcare power of estate planning attorney invoked Inpatient E&M: [id number] Init Hosp L3
[2020-08-28] MEDS: 0.9% Normal Saline 1,000 ML 100 ML IV (22:09)
[2020-08-28] MEDS: 0.9% Saline Lock 10 ML Syringe IV (22:10)
[2020-08-28] MEDS: Heparin Injection (Vial) 5,000 UNIT/ML VIAL 5000 UNIT SC (23:35)
[2020-08-29] VITALS (14 sets, daily range): BP systolic 96–125; BP diastolic 43–60; PULSE 66–92; RESP 16–18; TEMP 36.2–37.1; O2SAT 93–99
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
[2020-08-29] MEDS: Heparin Injection (Vial) 5,000 UNIT/ML VIAL 5000 UNIT SC (06:19)
[2020-08-29 06:28] LABS: Hematocrit 29.2 % (37-47); Hemoglobin 9.3 g/dL (12.0-15.0); Mean Corp Hgb Conc 31.8 g/dL (32-36); Mean Corpuscular Hgb 28.7 pg (27.0-32.0); Mean Corpuscular Volume 90.1 fL (81-99); Mean Platelet Vol. 10.3 fl (6.2-12.0); Platelet Count 189 K/mm3 (150-450); RBC Distribution Width CV 13.2 % (11.6-14.6); RBC Distribution Width SD 44.1 fl (35.1-43.9); Red Blood Count 3.24 M/mm3 (4.2-5.4)
[2020-08-29 07:03] LABS: ALB/GLOB Ratio 0.8 RATIO (0.9-2.4); AST(SGOT) 25 U/L (15-37); Alanine Aminotransfer ALT/SGPT 19 U/L (13-56); Albumin, Serum 2.4 g/dL (3.2-5.0); Alkaline Phosphatase 48 U/L (45-117); Anion Gap 9 (5-15); BUN 36 mg/dL (7-18); Calcium,Total 7.2 mg/dL (8.5-10.1); Chloride 112 mmol/L (98-107); Creatinine, Serum 1.09 mg/dL (0.55-1.02); EST Glomerular Filtration Rate 53 mL/min (>60); Est Glom Filt Rate - Afr Amer 64 mL/min (>60); Estimated Creatinine Clearance 41.47 ml/min; Globulin 2.9 g/dL (2.2-4.2); Glucose 67 mg/dL (74-106); Magnesium 2.1 mg/dL (1.6-2.6); Phosphorus 2.9 mg/dL (2.5-4.9); Potassium 3.9 mmol/L (3.5-5.1); Protein, Total 5.3 g/dL (6.4-8.2); Sodium Level 142 mmol/L (136-145); Thyroid Stim Hormone (TSH) 1.08 uIU/mL (0.358-3.74)
--- NOTE | 2020-08-29 07:31 | PN_ITS ---
Patient Problems: Active and Suspected Problems COVID-19 (Acute) Leukopenia (Acute) THEODORE (acute kidney injury) (Acute) Reason for Visit: Follow-up for COVID-19 infection/pneumonia along with confusion and weakness Objective: Patient did not had any fever or chills. Heart rate and blood pressure in rigoberto l range. On 2 to 3 L of oxygen. I talked to the patient's son, William over the phone. She states he has history of presumed kidney cancer but Not able to do biopsy because she could not come out of anticoagulant. As per son, she denied any burning micturition or increased frequency or urgency but her urine smell deep yellow color. She has history of 2 strokes in the past and was put on Keppra after she had seizure after the stroke. She has baseline expressive aphasia and take some time for verbal output. When I saw the patient, she seemed confused and disoriented. Mild short of huong th. Physical exam General: Confused, disoriented, mild drowsy cooperative HEENT: Atraumatic, PERRLA, EOMI, Normocephalic Oral: No Gingival or Mucosal Lesions/ Ulcerations Neck: Supple, No JVD, Negative Carotid Bruits Lungs: Air entry diminished in bilateral lung bases. Mild bilateral occasional crepitation. Cardiovascular: Regular rate, Regular Rhythm, Normal S1, Normal S2, No murmurs Abdomen: Bowel Sounds Present, Soft, Non Tender, Non-Distended : No renal angle tenderness. No suprapubic tenderness. Extremities: No edema, Capillary Refill Less than 3 Seconds Skin: No rashes, No breakdown Musculoskeletal: No Tenderness to Palpation of Joints or Extremities Neurological: Residual aphasia. Cranial nerves II-XII grossly intact, Deep Tendon Reflexes 2+/4 Psych/Mental Status: Confused. Vitals/I&O's: Vital Signs Temp Pulse Resp BP Pulse Ox 98.8 F 85 16 115/52 L 93 08/29/20 04:41 08/29/20 06:47 08/29/20 04:41 08/29/20 04:41 08/29/20 04:41 Oxygen Flow Rate (L/min) 2 Oxygen Delivery Method Nasal Cannula Weight: 165 lb 9.074 oz Body Mass Index (BMI) 28.4 Intake and Output for Last 24 Hours 08/27/20 08/28/20 08/29/20 23:59 23:59 23:59 Intake Total 1700 / 1700 450 / 450 Balance 1700 / 1700 450 / 450 Microbiology Past 72 Hours 08/28/20 15:40 Mucosa - Nose SARS-CoV-2 Antigen (Rapid) - Final SARS-CoV-2 (COVID 19) 08/28/20 15:40 Mucosa - Nose Influenza Types A,B Direct FA (JUAN) - Final Laboratory Results 08/28/20 15:40: WBC 4.3 L, RBC 3.64 L, Hgb 10.8 L, Hct 33.0 L, MCV 90.7, MCH 29.7, MCHC 32.7, RDW Std Deviation 45.1 H, RDW Coeff of Lev 13.3, Plt Count 218, MPV 10.7, Immature Gran % (Auto) 0.500, Neut % (Auto) 67.6, Lymph % (Auto) 24.1, [place] % (Auto) 7.4, Eos % (Auto) 0.2, Baso % (Auto) 0.2, Absolute Neuts (auto) 2.9, Absolute Lymphs (auto) 1.04, Nucleated RBC % 0 08/28/20 15:40: PT 13.1, INR 1.0, APTT 26.5 08/28/20 15:40: Sodium 136, Potassium 4.1, Chloride 103, Carbon Dioxide 22.0, Anion Gap 11, BUN 59 H, Creatinine 2.53 H, Estim Creat Clear Calc 17.87, Est GFR (MDRD) Af Amer 24 L, Est GFR (MDRD) Non-Af 20 L, BUN/Creatinine Ratio 23.3 H, Glucose 101, Calcium 8.3 L, Total Bilirubin 0.30, AST 26, ALT 22, Alkaline Phosphatase 55, Troponin I < 0.015, Total Protein 7.1, Albumin 3.1 L, Globulin 4.0, Albumin/Globulin Ratio 0.8 L 08/28/20 15:40: Lactic Acid 1.1 08/28/20 15:40: Fibrinogen 525 H, D-Dimer Quant (PE/DVT) 0.61 H* 08/28/20 16:05: Urine Color Yellow, Urine Clarity Sl. Cloudy, Urine pH 5.0, Ur Specific [place] 1.025, Urine Protein 15 H, Urine Glucose (UA) Normal, Urine Ketones Negative, Urine Occult Blood 25 H, Urine Nitrite Positive H, Urine Bilirubin Negative, Urine Urobilinogen Normal, Ur Leukocyte Esterase 25 H, Urine RBC 0-5 SEEN, Urine WBC 0-5 SEEN, Ur Squamous Epith Cells 0-5 SEEN, Urine Bacteria 1+, Urine Mucus 0 SEEN, Urine Yeast 1+ 08/29/20 05:55: WBC 3.0 L, RBC 3.24 L, Hgb 9.3 L, Hct 29.2 L, MCV 90.1, MCH 28.7, MCHC 31.8 L, RDW Std Deviation 44.1 H, RDW Coeff of Lev 13.2, Plt Count 189, MPV 10.3 08/29/20 05:55: Sodium 142, Potassium 3.9, Chloride 112 H, Carbon Dioxide 21.0, Anion Gap 9, BUN 36 H, Creatinine 1.09 H, Estim Creat Clear Calc 41.47, Est GFR (MDRD) Af Amer 64, Est GFR (MDRD) Non-Af 53 L, BUN/Creatinine Ratio 33.0 H, Glucose 67 L, Calcium 7.2 L, Phosphorus 2.9, Magnesium 2.1, Total Bilirubin 0.20, AST 25, ALT 19, Alkaline Phosphatase 48, Total Protein 5.3 L, Albumin 2.4 L, Globulin 2.9, Albumin/Globulin Ratio 0.8 L, TSH 1.08 Current Medications Acetaminophen (Acetaminophen 325 Mg Tablet) 650 mg PO Q6H PRN PRN PRN Reason: Pain Score 1-10/Temp > 100.7 F Al Hydroxide/Mg Hydroxide (Mag Hydrox/Al Hydrox/Simeth 30 Ml Udc) 30 ml PO Q6H PRN PRN PRN Reason: Gastric Burning Albuterol Sulfate (Albuterol 2.5 Mg/3 Ml Vial.Neb.) 2.5 mg INHALATION Q2H PRN PRN PRN Reason: Shortness of Breath/Wheezing Aspirin (Aspirin E.C. 81 Mg Tablet) 81 mg PO DAILY [facility] Atorvastatin Calcium (Atorvastatin Calcium 20 Mg Tablet) 20 mg PO QHS [facility] Last Admin: 08/28/20 20:44 Dose: 20 mg Documented by: Calamine/Phenol (Menthol/Lanolin/Calamine/Znox 113 Gm Tube) 1 applic TOPICAL BID [facility]; Protocol Carvedilol (Carvedilol 12.5 Mg Tablet) 12.5 mg PO BID [facility] Last Admin: 08/28/20 20:44 Dose: 12.5 mg Documented by: Clopidogrel Bisulfate (Clopidogrel Bisulfate 75 Mg Tablet) 75 mg PO DAILY [facility] Dexamethasone (Dexamethasone 4 Mg Tablet) 6 mg PO DAILY [facility] Stop: 09/08/20 10:01 Docusate Sodium (Docusate Sodium 100 Mg Capsule) 100 mg PO BID PRN PRN PRN Reason: Constipation Guaifenesin (Guaifenesin 10 Ml Udc (200mg/10ml)) 20 ml PO Q4H PRN PRN PRN Reason: COUGH Heparin Sodium (Porcine) (Heparin Injection (Vial) 5,000 Unit/Ml Vial) 5,000 unit SC Q8 [facility] Last Admin: 08/29/20 06:19 Dose: 5,000 unit Documented by: Sodium Chloride () 1,000 mls @ 100 mls/hr IV .Q10H [facility] Last Admin: 08/28/20 22:09 Dose: 100 mls/hr Documented by: Sodium Chloride () 1,000 mls @ 150 mls/hr IV .Q6H40M [facility] Last Admin: 08/29/20 06:19 Dose: Not Given Documented by: Remdesivir 100 mg/ Sodium (Chloride) 250 mls @ 125 mls/hr IV DAILY@2200 [facility] Stop: 09/01/20 23:59 Ceftriaxone Sodium (Rocephin) 1 gm in 50 mls @ 100 mls/hr IV Q24 [facility] Levetiracetam (Levetiracetam 500 Mg Tablet) 500 mg PO BID [facility] Last Admin: 08/28/20 20:44 Dose: 500 mg Documented by: Levothyroxine Sodium (Levothyroxine 50 Mcg Tablet) 50 mcg PO DAILY [facility] Melatonin (Melatonin 3 Mg Tablet) 3 mg PO QHS PRN PRN PRN Reason: INSOMNIA Morphine Sulfate (Morphine 2 Mg/Ml Syringe) 2 mg IV Q3H PRN PRN PRN Reason: Pain Score 6-10 Multivitamins (Multivitamins,Therapeutic Tablet) 1 tablet PO DAILY [facility] Ondansetron HCl (Ondansetron 4 Mg/2 Ml Vial) 4 mg IV Q8H PRN PRN PRN Reason: NAUSEA/VOMITING Sertraline HCl (Sertraline 100 Mg Tablet) 100 mg PO QHS [facility] Last Admin: 08/28/20 20:44 Dose: 100 mg Documented by: STROKE Vital Signs/Narrative: Vital Signs Temp Pulse Resp BP Pulse Ox 08/29/20 06:47 85 08/29/20 04:41 98.8 F 86 16 115/52 L 93 Medical Necessity - Tobacco Use Smoking Status: Smoker, status unknown Tobacco Use: Non-smoker Assessment/Plan All Active Problems COVID-19 (Acute) Leukopenia (Acute) THEODORE (acute kidney injury) (Acute) This is a 70-year-old female with multiple comorbidities was admitted for generalized weakness along with nausea, vomiting and weakness since August 22, unable to stand up. She also had recent cough, decreased oral intake, intermittent fever with chills. No change in taste or smell, sore throat or shortness of breath. COVID-19 pneumonia, possible UTI or asymptomatic bacteriuria: Patient is being admitted on Covid cohort unit. Seen by ID. Fibrinogen 657, D-dimer elevated. Patient is on Eliquis 5 mg twice daily at home for history of paroxysmal A. fib/flutter. On Decadron and remdesivir. Seen by ID and agree with the plan. Patient UA WBC 0-5, with 0-5, LE 25, nitrite positive. It is hard to take history from patient herself because of confusion cannot tell about lower urinary tract symptoms. 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 Acute kidney injury secondary to dehydration -Normal creatinine 0.7-0.8. Patient is clinically dehydrated and BUN/creatinine improved after IV fluid. Follow-up kidney function daily. Hold patient's Lasix and lisinopril. Avoid nephrotoxic medications. IV fluid normal saline adjusted 200 mL/h. Leukopenia. Patient does not have lymphopenia. Due to COVID-19 pneumonia Hypothyroidism: TSH normal. Continue levothyroxine, home dose Coronary artery disease -Continue aspirin and Plavix -continue beta-mo -EKG showed no acute ischemic changes -Troponins negative Hypertension -Continue home Coreg -Old lisinopril Seizure disorder after the stroke. Patient has residual expressive aphasia after stroke. -Continue Keppra Depression -Continue Zoloft Overweight -Combined weight loss DVT prophylaxis -Heparin 5000 units 3 times a day CODE STATUS: DNRCC arrest with no intubation. Inpatient E&M: 60749 Subs Hosp L2
[2020-08-29] MEDS: Ceftriaxone 1 GM/50 ML BAG IV (10:12)
[2020-08-29] MEDS: Levothyroxine 50 MCG Tablet PO (10:12)
[2020-08-29] MEDS: Clopidogrel Bisulfate 75 MG Tablet PO (10:13)
[2020-08-29] MEDS: Aspirin E.C. 81 MG Tablet PO (10:13)
[2020-08-29] MEDS: dexAMETHasone 4 MG Tablet 6 MG PO (10:13)
[2020-08-29] MEDS: Multivitamins,Therapeutic Tablet 1 TABLET PO (10:13)
[2020-08-29] MEDS: Menthol/Lanolin/Calamine/Znox 113 GM Tube 1 APPLIC TOPICAL ×2 (10:14→21:32)
[2020-08-29] MEDS: levETIRAcetam 500 MG Tablet PO ×2 (10:14→21:33)
--- NOTE | 2020-08-29 10:36 | NURSING ---
SPOKE W/SON IFEOMA. UDATED /WHAT THIS NURSE COULD OBTAIN FROM THE COMPUTER. HE IS REQUESTING TO SPEAK W/DR LAINEZ, WHO IS AWARE AND WILL CALL HIM. WILL LET ILEANA KNOW WELL THAT PT IS LOOKING FORWARD TO AN UPDATE WELL.
--- NOTE | 2020-08-29 10:37 | CASEMGMT ---
RN XIOMARA Note. Attempted to call into room. Patient answered phone but was not willing to talk to CM at this time. She stated she was upset and the IV was beeping. Nursing will go in to check on IV. RN XIOMARA asked to call her son and she was agreeable to this. Mona GONZALEZN RN ACM
[2020-08-29] MEDS: 0.9% Normal Saline 1,000 ML 100 ML IV (11:58)
[2020-08-29] MEDS: Carvedilol 12.5 MG Tablet PO ×2 (11:58→21:33)
--- NOTE | 2020-08-29 12:21 | NURSING ---
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 THIS NURSE CHECKED W/ILEANA Dominguez RN, YES, PT HAS LIFE ALERT ON AND LEXY DIA WAS NOTIFIED OF THIS
--- NOTE | 2020-08-29 12:49 | PCM.HP.ID ---
Problem List (1) COVID-19 Status: Acute Reason for Consult: covid Consulted by: Dr. Graham History of Present Illness: The patient is a 70 year old F presented to ED 08/28 with one week of worsening cough, SOB, fever, confusion, weakness, n/v/d. Pt unable to provide much history. Admitted on O2, remdesivir, dex, and ceftriaxone. Feeling ok this AM, denies chest pain or aches. Full ROS performed and neg except as noted above. - Medical History Past Medical History (Chronic Problems): Chronic Problems Hyperlipemia (Chronic) CAD (coronary artery disease) (Chronic) Seizure (Chronic) Depression (Chronic) Hypothyroid (Chronic) HTN (hypertension) (Chronic) Iron deficiency anemia (Chronic) Heart failure (Chronic) Vertigo (Chronic) Allergies/Adverse Reactions: Allergies No Known Allergies Allergy (Verified 08/28/20 15:07) Home Medications: Ambulatory Orders Medication Instructions Recorded Atorvastatin Calcium [Lipitor] 20 mg PO QHS 08/17/18 Clopidogrel Bisulfate [Clopidogrel] 75 mg PO DAILY 08/17/18 Furosemide [Lasix] 20 mg PO DAILY 08/17/18 Levetiracetam 500 mg PO BID 08/17/18 Levothyroxine [Synthroid] 50 mcg PO DAILY 08/17/18 Lisinopril 5 mg PO QHS 08/17/18 Sertraline HCl 100 mg PO QHS 08/17/18 Meclizine HCl [Antivert] 12.5 mg PO Q8 PRN #20 tab 08/21/18 Aspirin E.C. [Ecotrin] 81 mg PO DAILY@0800 08/28/20 Carvedilol [Coreg] 12.5 mg PO BID 08/28/20 Chlorpheniramine/Dextromethorp 1 - 2 tab PO Q4H PRN PRN 08/28/20 [Coricidin Hbp Cough & Cold Tab] Multivit,Calc,Mins/Iron/Folic 1 tab PO DAILY 08/28/20 [Thera-M Tablet] - Social History SMOKING STATUS:: Current every day smoker Vital Signs Temp Pulse Resp BP Pulse Ox 98.6 F 88 18 112/60 93 08/29/20 11:56 08/29/20 11:56 08/29/20 11:56 08/29/20 11:56 08/29/20 11:56 Oxygen Flow Rate (L/min) 3 Oxygen Delivery Method Nasal Cannula Weight: 75.1 kg Body Mass Index (BMI) 28.4 Microbiology Past 72 Hours 08/28/20 16:05 Urine Culture - Preliminary Urine Catheter - Catheter 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 08/28/20 15:40 SARS-CoV-2 Antigen (Rapid) - Final Mucosa - Nose SARS-CoV-2 (COVID 19) Influenza Types A,B Direct FA (JUAN) - Final Laboratory Tests Past 24 Hrs 08/28/20 08/28/20 08/28/20 15:40 15:40 15:40 WBC 4.3 L RBC 3.64 L Hgb 10.8 L Hct 33.0 L MCV 90.7 MCH 29.7 MCHC 32.7 RDW Std Deviation 45.1 H RDW Coeff of Lev 13.3 Plt Count 218 MPV 10.7 Immature Gran % (Auto) 0.500 Neut % (Auto) 67.6 Lymph % (Auto) 24.1 [place] % (Auto) 7.4 Eos % (Auto) 0.2 Baso % (Auto) 0.2 Absolute Neuts (auto) 2.9 Absolute Lymphs (auto) 1.04 Nucleated RBC % 0 PT 13.1 INR 1.0 APTT 26.5 Fibrinogen D-Dimer Quant (PE/DVT) Sodium 136 Potassium 4.1 Chloride 103 Carbon Dioxide 22.0 Anion Gap 11 BUN 59 H Creatinine 2.53 H Estim Creat Clear Calc 17.87 Est GFR (MDRD) Af Amer 24 L Est GFR (MDRD) Non-Af 20 L BUN/Creatinine Ratio 23.3 H Glucose 101 Lactic Acid Calcium 8.3 L Phosphorus Magnesium Total Bilirubin 0.30 AST 26 ALT 22 Alkaline Phosphatase 55 Troponin I < 0.015 Total Protein 7.1 Albumin 3.1 L Globulin 4.0 Albumin/Globulin Ratio 0.8 L TSH Urine Color Urine Clarity Urine pH Ur Specific [place] Urine Protein Urine Glucose (UA) Urine Ketones Urine Occult Blood Urine Nitrite Urine Bilirubin Urine Urobilinogen Ur Leukocyte Esterase Urine RBC Urine WBC Ur Squamous Epith Cells Urine Bacteria Urine Mucus Urine Yeast 08/28/20 08/28/20 08/28/20 15:40 15:40 16:05 WBC RBC Hgb Hct MCV MCH MCHC RDW Std Deviation RDW Coeff of Lev Plt Count MPV Immature Gran % (Auto) Neut % (Auto) Lymph % (Auto) [place] % (Auto) Eos % (Auto) Baso % (Auto) Absolute Neuts (auto) Absolute Lymphs (auto) Nucleated RBC % PT INR APTT Fibrinogen 525 H D-Dimer Quant (PE/DVT) 0.61 H* Sodium Potassium Chloride Carbon Dioxide Anion Gap BUN Creatinine Estim Creat Clear Calc Est GFR (MDRD) Af Amer Est GFR (MDRD) Non-Af BUN/Creatinine Ratio Glucose Lactic Acid 1.1 Calcium Phosphorus Magnesium Total Bilirubin AST ALT Alkaline Phosphatase Troponin I Total Protein Albumin Globulin Albumin/Globulin Ratio TSH Urine Color Yellow Urine Clarity Sl. Cloudy Urine pH 5.0 Ur Specific [place] 1.025 Urine Protein 15 H Urine Glucose (UA) Normal Urine Ketones Negative Urine Occult Blood 25 H Urine Nitrite Positive H Urine Bilirubin Negative Urine Urobilinogen Normal Ur Leukocyte Esterase 25 H Urine RBC 0-5 SEEN Urine WBC 0-5 SEEN Ur Squamous Epith Cells 0-5 SEEN Urine Bacteria 1+ Urine Mucus 0 SEEN Urine Yeast 1+ 08/29/20 08/29/20 05:55 05:55 WBC 3.0 L RBC 3.24 L Hgb 9.3 L Hct 29.2 L MCV 90.1 MCH 28.7 MCHC 31.8 L RDW Std Deviation 44.1 H RDW Coeff of Lev 13.2 Plt Count 189 MPV 10.3 Immature Gran % (Auto) Neut % (Auto) Lymph % (Auto) [place] % (Auto) Eos % (Auto) Baso % (Auto) Absolute Neuts (auto) Absolute Lymphs (auto) Nucleated RBC % PT INR APTT Fibrinogen D-Dimer Quant (PE/DVT) Sodium 142 Potassium 3.9 Chloride 112 H Carbon Dioxide 21.0 Anion Gap 9 BUN 36 H Creatinine 1.09 H Estim Creat Clear Calc 41.47 Est GFR (MDRD) Af Amer 64 Est GFR (MDRD) Non-Af 53 L BUN/Creatinine Ratio 33.0 H Glucose 67 L Lactic Acid Calcium 7.2 L Phosphorus 2.9 Magnesium 2.1 Total Bilirubin 0.20 AST 25 ALT 19 Alkaline Phosphatase 48 Troponin I Total Protein 5.3 L Albumin 2.4 L Globulin 2.9 Albumin/Globulin Ratio 0.8 L TSH 1.08 Urine Color Urine Clarity Urine pH Ur Specific [place] Urine Protein Urine Glucose (UA) Urine Ketones Urine Occult Blood Urine Nitrite Urine Bilirubin Urine Urobilinogen Ur Leukocyte Esterase Urine RBC Urine WBC Ur Squamous Epith Cells Urine Bacteria Urine Mucus Urine Yeast - Other Studies Radiology: [] reviewed Other Studies: [] Route of nutrition/ use of supplements: [] Nutritional Intake: [] IV Site: [] Shah Catheter: [] - Physical Exam General: No apparent distress, - - oriented x1 HEENT: Atraumatic, PERRLA, EOMI Neck: Supple, No Nodes Lungs: Diminished Cardiovascular: Regular rate, Regular Rhythm Abdomen: Soft, Non Tender, Non-Distended Skin: No rashes IV Site: Peripheral Musculoskeletal: No Tenderness to Palpation of Joints or Extremities Neurological: Cranial nerves II-XII grossly intact - Assessment/Plan Antibiotics: [] Assessment/Plan: [] Active and Suspected Problems COVID-19 (Acute) Leukopenia (Acute) THEODORE (acute kidney injury) (Acute) covid with hypoxia and THEODORE - improving, cont remdesivir and dex. D-dimer minimally elevated at 0.6. Will stop ceftriaxone, low suspicion for bacterial infection. Will follow, thank you
--- NOTE | 2020-08-29 14:03 | CASEMGMT ---
Social Work Note SW received call from pt's XIOMARA Contreras at [facility]. [facility] emergency response button and has 10 meals a week through [employer], no aide services. [facility] approved to go to [employer] but that has been on hold since [facility]. [facility] does have oxygen at home through [employer]. Kylee Gresham ALTERATIONS TAILOR, LEAD PRESSMAN [employer]
--- NOTE | 2020-08-29 14:05 | CASEMGMT ---
Addendum entered by Yareli Johnson 08/29/20 15:59: PT/OT evals have been completed and therapy spoke w/this RN XIOMARA. Per therapy, pt is safe to return home if she has someone w/her 22/03 and recommended to have one assist w/use of walker when ambulating. Call placed back to pt's son, William. He was made aware of above. He states he will be with pt 22/03 and able to assist pt with transfers and care as needed. William states would like [facility] for pt. He was made aware, d/t it being so late in the day and tomorrow being a holiday, that HHC would not be able to be set up before Wednesday. He was made aware, if pt discharges home tomorrow or over the weekend, that he would need to contact pt's PCP and have them set up HHC. He voices understanding. Original Note: RN CM ASSESSMENT COVID-19 +. Testing done @ [facility] 08/28. RN CM placed call to pt's room for initial transition planning/care coordination assessment and to discuss discharge planning. Pt states she doesn't know if she'll be well enough to return home @ discharge, and would like RN XIOMARA to talk to her son, William, about this. She states she would let her son make that decision. Call placed to pt's son, William. Introduced self and role of WHITLEY SOLANO. Care providers, pharmacy, and demographics verified/updated at this time. PCP: Dr Bhatt Preferred Pharmacy: [facility] Insurance: [facility], [facility] community plan Prescription Benefit: Yes Living Will/HPOA: Has both LW and Healthcare POCheryl, who is her son, William Patel LNOK: Son/POA, William. SonAbundio Living Arrangements: Lives w/her son, William, and grandson, in a one-story home w/ 4-5 steps to enter. They have 2 bathrooms. Pt was independent w/ADL's prior to recent illness and William did most home mgmt tasks. Since [place], pt started becoming ill and became more weak and unable to take care of self. Pt has CM through [facility]. She has a medical alert button and home delivered meals. She is eligible for HH aides, but has declined them in the past. William states he is going to talk to his mother to see if she is willing to have them now. William states they have masks, gloves, and disinfectants. They have a good supply of groceries and he can pecan picker prescriptions @ curb-side. He states he was ill around [place] time and thinks he may have had COVID at that time but is not sure. RN XIOMARA advised him to follow 2-wks quarantine per CDC recommendations. Transportation: William DME: has the following DME: shower chair, [place] nebulizer. Has Home O2 @ 2 L/M through [employer]. Has concentrator and portability. William states he can bring in portable O2 tank to d/c home on, if pt able to return home Has W/C available if needed. HHC/SNF: Hx of both-- William does not remember names of facility/agency William prefers for pt to return home, if possible. He is aware PT/OT evals are pending, and states if they recommend SNF, then he would discuss things with his brother before making a decision. CM to follow for home oxygen needs and any further discharge planning/needs. PLAN: TBD PT/OT evals pending. Brigida NOVAK RN, CM
--- NOTE | 2020-08-29 14:33 | CHAPLAIN ---
Type of Pastoral Visit ___ Initial Visit ___ Follow-up Visit ___ On-call Visit ___ General Patient Visit ___ Spiritual Assessment ___ Family Conference ___ Bereavement ___ Rapid Response ___ Code Blue _x__ Other (describe below) Pastoral Care Referral From ___ Patient ___ Family ___ Nurse ___ Physician ___ Court Of Appeals Judge ___ Manager Personal _x__ Other (describe below) Sacrament/Intervention _x__ Active listening ___ Anointing ___ Advent ___ Bereavement ___ Communion ___ Jeana exploration ___ ___ Life review _x__ Prayer ___ Reconciliation ___ Sacrament of Sick ___ Supportive presence ___ Wedding ___ Other (describe below) Pastoral Comments phone call made into this isolation room; pt answers phone and welcomes opportunity to talk; pt is not able to get some of her words out and coordinated together but she does answer the questions asked; pt says yes, pray when offered prayer support; pt says thank you
[2020-08-29] MEDS: Sertraline 100 MG Tablet PO (21:33)
[2020-08-29] MEDS: Atorvastatin Calcium 20 MG Tablet PO (21:33)
[2020-08-29] MEDS: APIXABAN 2.5 MG TABLET PO (21:33)
[2020-08-30] VITALS (14 sets, daily range): BP systolic 128–132; BP diastolic 51–71; PULSE 63–83; RESP 16–23; TEMP 35.2–36.8; O2SAT 97–99
[2020-08-30 05:12] LABS: Hemoglobin 10.4 g/dL (12.0-15.0); Mean Corp Hgb Conc 32.5 g/dL (32-36); Mean Corpuscular Hgb 29.8 pg (27.0-32.0); Mean Corpuscular Volume 91.7 fL (81-99); Mean Platelet Vol. 10.5 fl (6.2-12.0); Platelet Count 239 K/mm3 (150-450); RBC Distribution Width CV 13.1 % (11.6-14.6); RBC Distribution Width SD 44.1 fl (35.1-43.9); Red Blood Count 3.49 M/mm3 (4.2-5.4); White Blood Count 2.5 K/mm3 (4.4-11.0)
[2020-08-30 05:35] LABS: ALB/GLOB Ratio 0.8 RATIO (0.9-2.4); AST(SGOT) 33 U/L (15-37); Alanine Aminotransfer ALT/SGPT 22 U/L (13-56); Albumin, Serum 2.4 g/dL (3.2-5.0); Alkaline Phosphatase 46 U/L (45-117); Anion Gap 4 (5-15); BUN 28 mg/dL (7-18); BUN/Creat Ratio 36.3 RATIO (10-20); Calcium,Total 8.1 mg/dL (8.5-10.1); Chloride 114 mmol/L (98-107); Creatinine, Serum 0.77 mg/dL (0.55-1.02); EST Glomerular Filtration Rate 79 mL/min (>60); Est Glom Filt Rate - Afr Amer 95 mL/min (>60); Globulin 3.2 g/dL (2.2-4.2); Glucose 133 mg/dL (74-106); Potassium 4.7 mmol/L (3.5-5.1); Protein, Total 5.6 g/dL (6.4-8.2); Sodium Level 144 mmol/L (136-145)
[2020-08-30] MEDS: Menthol/Lanolin/Calamine/Znox 113 GM Tube 1 APPLIC TOPICAL ×2 (08:33→19:02)
[2020-08-30] MEDS: dexAMETHasone 4 MG Tablet 6 MG PO (08:33)
[2020-08-30] MEDS: Multivitamins,Therapeutic Tablet 1 TABLET PO (08:34)
[2020-08-30] MEDS: levETIRAcetam 500 MG Tablet PO ×2 (08:34→20:59)
[2020-08-30] MEDS: Levothyroxine 50 MCG Tablet PO (08:34)
[2020-08-30] MEDS: Carvedilol 12.5 MG Tablet PO ×2 (08:35→21:00)
[2020-08-30] MEDS: Aspirin E.C. 81 MG Tablet PO (08:35)
[2020-08-30] MEDS: APIXABAN 2.5 MG TABLET PO ×2 (08:35→20:59)
--- NOTE | 2020-08-30 08:36 | NURSING ---
Pt assisted into chair and this nurse assisted pt in using her I.S. x10 reps at this time. call light in reach. Set up for breakfast.
--- NOTE | 2020-08-30 14:36 | PCM.PN.HOSP ---
Patient Problems: Active and Suspected Problems COVID-19 (Acute) Leukopenia (Acute) THEODORE (acute kidney injury) (Acute) Reason for Visit: Patient is awake alert and oriented x3. She has chronic baseline expressive aphasia. Vital signs are stable. No fever. Pulse ox 98% on 3 L of oxygen. Physical exam General: Alert, Oriented x3, Cooperative HEENT: Atraumatic, PERRLA, EOMI, Normocephalic Oral: No Gingival or Mucosal Lesions/ Ulcerations Neck: Supple, No JVD, Negative Carotid Bruits Lungs: Air entry diminished in bilateral lung bases. Occasional bibasilar coarse crepitation. No tachypnea Cardiovascular: Regular rate, Regular Rhythm, Normal S1, Normal S2, No murmurs Abdomen: Bowel Sounds Present, Soft, Non Tender, Non-Distended : No renal angle tenderness. No suprapubic tenderness. Extremities: No edema, Capillary Refill Less than 3 Seconds Skin: No rashes, No breakdown Musculoskeletal: No Tenderness to Palpation of Joints or Extremities Neurological: Residual expressive aphasia from the previous stroke. Cranial nerves II-XII grossly intact, Deep Tendon Reflexes 2+/4 and Symmetrical. Psych/Mental Status: Normal Affect, Appropriate. Vitals/I&O's: Vital Signs Temp Pulse Resp BP Pulse Ox 95.3 F L 73 16 132/71 H 98 08/30/20 08:02 08/30/20 12:10 08/30/20 08:02 08/30/20 08:02 08/30/20 08:20 Oxygen Flow Rate (L/min) 3 Oxygen Delivery Method Nasal Cannula Weight: 165 lb 9.074 oz Body Mass Index (BMI) 28.4 Intake and Output for Last 24 Hours 08/28/20 08/29/20 08/30/20 23:59 23:59 23:59 Intake Total 1700 / 1700 3185 / 3185 Balance 1700 / 1700 3185 / 3185 Microbiology Past 72 Hours 08/28/20 15:50 Blood Culture (Wb) - Right Forearm Blood Culture - Preliminary No growth in 48 hours. 08/28/20 15:40 Blood Culture (Wb) - Anticubital Left Blood Culture - Preliminary No growth in 48 hours. 08/28/20 16:05 Urine Catheter - Catheter Urine Culture - Final Escherichia coli Klebsiella pneumoniae sp pneum 08/28/20 15:40 Mucosa - Nose SARS-CoV-2 Antigen (Rapid) - Final SARS-CoV-2 (COVID 19) 08/28/20 15:40 Mucosa - Nose Influenza Types A,B Direct FA (JUAN) - Final Laboratory Results 08/30/20 04:15: WBC 2.5 L, RBC 3.49 L, Hgb 10.4 L, Hct 32.0 L, MCV 91.7, MCH 29.8, MCHC 32.5, RDW Std Deviation 44.1 H, RDW Coeff of Lev 13.1, Plt Count 239, MPV 10.5 08/30/20 04:15: Sodium 144, Potassium 4.7, Chloride 114 H, Carbon Dioxide 26.0, Anion Gap 4 L, BUN 28 H, Creatinine 0.77, Estim Creat Clear Calc 45.20, Est GFR (MDRD) Af Amer 95, Est GFR (MDRD) Non-Af 79, BUN/Creatinine Ratio 36.3 H, Glucose 133 H, Calcium 8.1 L, Total Bilirubin 0.30, AST 33, ALT 22, Alkaline Phosphatase 46, Total Protein 5.6 L, Albumin 2.4 L, Globulin 3.2, Albumin/Globulin Ratio 0.8 L Current Medications Acetaminophen (Acetaminophen 325 Mg Tablet) 650 mg PO Q6H PRN PRN PRN Reason: Pain Score 1-10/Temp > 100.7 F Al Hydroxide/Mg Hydroxide (Mag Hydrox/Al Hydrox/Simeth 30 Ml Udc) 30 ml PO Q6H PRN PRN PRN Reason: Gastric Burning Albuterol Sulfate (Albuterol 2.5 Mg/3 Ml Vial.Neb.) 2.5 mg INHALATION Q2H PRN PRN PRN Reason: Shortness of Breath/Wheezing Apixaban (Apixaban 2.5 Mg Tablet) 2.5 mg PO BID [facility] Last Admin: 08/30/20 08:35 Dose: 2.5 mg Documented by: Aspirin (Aspirin E.C. 81 Mg Tablet) 81 mg PO DAILY [facility] Last Admin: 08/30/20 08:35 Dose: 81 mg Documented by: Atorvastatin Calcium (Atorvastatin Calcium 20 Mg Tablet) 20 mg PO QHS [facility] Last Admin: 08/29/20 21:33 Dose: 20 mg Documented by: Calamine/Phenol (Menthol/Lanolin/Calamine/Znox 113 Gm Tube) 1 applic TOPICAL BID [facility]; Protocol Last Admin: 08/30/20 08:33 Dose: 1 applicatio Documented by: Carvedilol (Carvedilol 12.5 Mg Tablet) 12.5 mg PO BID [facility] Last Admin: 08/30/20 08:35 Dose: 12.5 mg Documented by: Dexamethasone (Dexamethasone 4 Mg Tablet) 6 mg PO DAILY [facility] Stop: 09/08/20 10:01 Last Admin: 08/30/20 08:33 Dose: 6 mg Documented by: Docusate Sodium (Docusate Sodium 100 Mg Capsule) 100 mg PO BID PRN PRN PRN Reason: Constipation Guaifenesin (Guaifenesin 10 Ml Udc (200mg/10ml)) 20 ml PO Q4H PRN PRN PRN Reason: COUGH Remdesivir 100 mg/ Sodium (Chloride) 250 mls @ 125 mls/hr IV DAILY@2200 [facility] Stop: 09/01/20 23:59 Last Infusion: 08/29/20 23:33 Dose: Infused Documented by: Levetiracetam (Levetiracetam 500 Mg Tablet) 500 mg PO BID [facility] Last Admin: 08/30/20 08:34 Dose: 500 mg Documented by: Levothyroxine Sodium (Levothyroxine 50 Mcg Tablet) 50 mcg PO DAILY [facility] Last Admin: 08/30/20 08:34 Dose: 50 mcg Documented by: Melatonin (Melatonin 3 Mg Tablet) 3 mg PO QHS PRN PRN PRN Reason: INSOMNIA Morphine Sulfate (Morphine 2 Mg/Ml Syringe) 2 mg IV Q3H PRN PRN PRN Reason: Pain Score 6-10 Multivitamins (Multivitamins,Therapeutic Tablet) 1 tablet PO DAILY [facility] Last Admin: 08/30/20 08:34 Dose: 1 tablet Documented by: Ondansetron HCl (Ondansetron 4 Mg/2 Ml Vial) 4 mg IV Q8H PRN PRN PRN Reason: NAUSEA/VOMITING Sertraline HCl (Sertraline 100 Mg Tablet) 100 mg PO QHS [facility] Last Admin: 08/29/20 21:33 Dose: 100 mg Documented by: STROKE Vital Signs/Narrative: Vital Signs Pulse 08/30/20 12:10 73 Medical Necessity - Tobacco Use Smoking Status: Smoker, status unknown Tobacco Use: Non-smoker Assessment/Plan All Active Problems COVID-19 (Acute) Leukopenia (Acute) THEODORE (acute kidney injury) (Acute) This is a 70-year-old female with multiple comorbidities was admitted for generalized weakness along with nausea, vomiting and weakness since August 22, unable to stand up. She also had recent cough, decreased oral intake, intermittent fever with chills. No change in taste or smell, sore throat or shortness of breath. COVID-19 pneumonia, possible UTI or asymptomatic bacteriuria: Patient is being admitted on Covid cohort unit. Seen by ID. Fibrinogen 657, D-dimer elevated. Patient is on Eliquis 5 mg twice daily at home for history of paroxysmal A. fib/flutter. On Decadron and remdesivir. Seen by ID and agree with the plan. Patient UA WBC 0-5, with 0-5, LE 25, nitrite positive. It is hard to take history from the patient but as per son, she did not had burning duration, increase frequency urgency but dark yellow foul-smelling urine. 08/30: urine culture shows more than 100,000 E. coli and Klebsiella [id number], resistant to benzylpenicillin except cefepime, ESBL negative. Sensitive to Cipro and Levaquin. Antibiotic changed to Cipro. UA does not show much pyuria. I talked to the patient's son over phone and gave clinical update. We will titrate the oxygen down. Incentive spirometry and chest physiotherapy. Acute kidney injury secondary to dehydration -Normal creatinine 0.7-0.8. Patient is clinically dehydrated and BUN/creatinine improved after IV fluid. Follow-up kidney function daily. Hold patient's Lasix and lisinopril. Avoid nephrotoxic medications. Discontinue IV fluid Leukopenia. Patient does not have lymphopenia. Due to COVID-19 pneumonia Hypothyroidism: TSH normal. Continue levothyroxine, home dose Coronary artery disease -Continue aspirin and Plavix -continue beta-mo -EKG showed no acute ischemic changes -Troponins negative Hypertension -Continue home Coreg -Old lisinopril Seizure disorder after the stroke. Patient has residual expressive aphasia after stroke. -Continue Keppra Depression -Continue Zoloft Overweight -Combined weight loss DVT prophylaxis -Heparin 5000 units 3 times a day CODE STATUS: DNRCC arrest with no intubation. Microbiology Past 72 Hours 08/28/20 15:50 Blood Culture (Wb) - Right Forearm Blood Culture - Preliminary No growth in 48 hours. 08/28/20 15:40 Blood Culture (Wb) - Anticubital Left Blood Culture - Preliminary No growth in 48 hours. 08/28/20 16:05 Urine Catheter - Catheter Urine Culture - Final Escherichia coli Klebsiella pneumoniae sp pneum 08/28/20 15:40 Mucosa - Nose SARS-CoV-2 Antigen (Rapid) - Final SARS-CoV-2 (COVID 19) 08/28/20 15:40 Mucosa - Nose Influenza Types A,B Direct FA (JUAN) - Final Laboratory Results 08/30/20 04:15: WBC 2.5 L, RBC 3.49 L, Hgb 10.4 L, Hct 32.0 L, MCV 91.7, MCH 29.8, MCHC 32.5, RDW Std Deviation 44.1 H, RDW Coeff of Lev 13.1, Plt Count 239, MPV 10.5 08/30/20 04:15: Sodium 144, Potassium 4.7, Chloride 114 H, Carbon Dioxide 26.0, Anion Gap 4 L, BUN 28 H, Creatinine 0.77, Estim Creat Clear Calc 45.20, Est GFR (MDRD) Af Amer 95, Est GFR (MDRD) Non-Af 79, BUN/Creatinine Ratio 36.3 H, Glucose 133 H, Calcium 8.1 L, Total Bilirubin 0.30, AST 33, ALT 22, Alkaline Phosphatase 46, Total Protein 5.6 L, Albumin 2.4 L, Globulin 3.2, Albumin/Globulin Ratio 0.8 L Inpatient E&M: 29578 Subs Hosp L2
[2020-08-30] MEDS: Ciprofloxacin 500 MG Tablet PO (18:56)
[2020-08-30] MEDS: 0.9% Saline Lock 10 ML Syringe IV ×2 (18:56→21:01)
[2020-08-30] MEDS: Sertraline 100 MG Tablet PO (21:00)
[2020-08-30] MEDS: Atorvastatin Calcium 20 MG Tablet PO (21:00)
[2020-08-31] VITALS (11 sets, daily range): BP systolic 123–149; BP diastolic 53–89; PULSE 71–86; RESP 18–20; TEMP 36.2–36.7; O2SAT 95–99
[2020-08-31] MEDS: 0.9% Saline Lock 10 ML Syringe IV ×2 (04:02→11:02)
[2020-08-31] MEDS: Menthol/Lanolin/Calamine/Znox 113 GM Tube 1 APPLIC TOPICAL (06:52)
[2020-08-31 07:10] LABS: Hematocrit 33.6 % (37-47); Hemoglobin 10.5 g/dL (12.0-15.0); Mean Corp Hgb Conc 31.3 g/dL (32-36); Mean Corpuscular Hgb 29.1 pg (27.0-32.0); Mean Corpuscular Volume 93.1 fL (81-99); Platelet Count 284 K/mm3 (150-450); RBC Distribution Width CV 13.1 % (11.6-14.6); RBC Distribution Width SD 45.1 fl (35.1-43.9); Red Blood Count 3.61 M/mm3 (4.2-5.4); White Blood Count 4.1 K/mm3 (4.4-11.0)
[2020-08-31 07:35] LABS: ALB/GLOB Ratio 0.7 RATIO (0.9-2.4); AST(SGOT) 28 U/L (15-37); Alanine Aminotransfer ALT/SGPT 23 U/L (13-56); Albumin, Serum 2.4 g/dL (3.2-5.0); Alkaline Phosphatase 43 U/L (45-117); Anion Gap 3 (5-15); BUN 28 mg/dL (7-18); BUN/Creat Ratio 39.3 RATIO (10-20); Calcium,Total 8.2 mg/dL (8.5-10.1); Chloride 114 mmol/L (98-107); Creatinine, Serum 0.71 mg/dL (0.55-1.02); EST Glomerular Filtration Rate 86 mL/min (>60); Est Glom Filt Rate - Afr Amer 104 mL/min (>60); Globulin 3.4 g/dL (2.2-4.2); Glucose 96 mg/dL (74-106); Potassium 4.1 mmol/L (3.5-5.1); Protein, Total 5.8 g/dL (6.4-8.2); Sodium Level 143 mmol/L (136-145)
--- NOTE | 2020-08-31 08:40 | DCINST_ITS ---
- Discharge Diagnoses Current Active Problems: Current Active and Chronic Problems COVID-19 (Acute) Leukopenia (Acute) THEODORE (acute kidney injury) (Acute) Hyperlipemia (Chronic) CAD (coronary artery disease) (Chronic) Seizure (Chronic) Depression (Chronic) Hypothyroid (Chronic) HTN (hypertension) (Chronic) Iron deficiency anemia (Chronic) Heart failure (Chronic) Vertigo (Chronic) You will use the following diet at home:: Cardiac Your food should be the consistency of: Regular Discharge Activity: May Not Drive Call your doctor if you observe: Fever of 101 or Higher, Coldness, Increased Pain, Numbness or Tingling, Change in Color, Inability to urinate, Inability to have a bowel movement, Using more than one pad per hour, Shortness of breath, Dizziness, Fainting spells, Swelling in the ankles, Chest pain, Prolonged hiccoughing, Increased palpitations (irregular heartbeat), Calf discomfort, Uncontrolled pain Allergies/Adverse Reactions: Allergies No Known Allergies Allergy (Verified 08/28/20 15:07) Medications to take at Discharge Atorvastatin Calcium [Lipitor] 20 mg PO QHS 08/17/18 Clopidogrel Bisulfate [Clopidogrel] 75 mg PO DAILY 08/17/18 Furosemide [Lasix] 20 mg PO DAILY 08/17/18 Levetiracetam 500 mg PO BID 08/17/18 Levothyroxine [Synthroid] 50 mcg PO DAILY 08/17/18 Lisinopril 5 mg PO QHS 08/17/18 Sertraline HCl 100 mg PO QHS 08/17/18 Meclizine HCl [Antivert] 12.5 mg PO Q8 PRN #20 tab 08/21/18 Aspirin E.C. [Ecotrin] 81 mg PO DAILY@0800 08/28/20 Carvedilol [Coreg (Beta Anna Marie)] 12.5 mg PO BID 08/28/20 Chlorpheniramine/Dextromethorp [Coricidin Hbp Cough-Cold Tab] 1 - 2 tab PO Q4H PRN PRN 08/28/20 Multivit,Calc,Mins/Iron/Folic [Thera-M Tablet] 1 tab PO DAILY 08/28/20 Apixaban [Eliquis] 2.5 mg PO BID #30 tab 08/31/20 Dexamethasone [Decadron] 6 mg PO DAILY #11 tab 08/31/20 Guaifenesin/Pseudoephedrne HCl [Mucinex D ER 1,200-120 mg Tab] 1 ea PO BID #14 tab.er.12h 08/31/20 The following prescriptions were given: Dexamethasone [Decadron] 6 mg PO DAILY #11 tab Transmission Status: Pending to TABITHA REID JAQUEZ JEAN-PAUL Apixaban [Eliquis] 2.5 mg PO BID #30 tab Transmission Status: Pending to TABITHA JAQUEZ JEAN-PAUL Guaifenesin/Pseudoephedrne HCl [Mucinex D ER 1,200-120 mg Tab] 1 ea PO BID #14 tab.er.12h Transmission Status: Pending to TABITHA LEONID JEONG Primary Care Physician: Lenin Bhatt MD [Primary Care Provider] - Please follow up with your Primary Care Physician in: in 2 weeks Test Results: Test results from this visit will be discussed in further detail at your follow- up appointment, if applicable.
[2020-08-31] MEDS: dexAMETHasone 4 MG Tablet 6 MG PO (09:00)
[2020-08-31] MEDS: Ciprofloxacin 500 MG Tablet PO (09:00)
[2020-08-31] MEDS: Levothyroxine 50 MCG Tablet PO (09:00)
[2020-08-31] MEDS: Multivitamins,Therapeutic Tablet 1 TABLET PO (09:00)
[2020-08-31] MEDS: Carvedilol 12.5 MG Tablet PO (09:00)
[2020-08-31] MEDS: levETIRAcetam 500 MG Tablet PO (09:00)
[2020-08-31] MEDS: APIXABAN 2.5 MG TABLET PO (09:00)
[2020-08-31] MEDS: Aspirin E.C. 81 MG Tablet PO (09:00)
--- NOTE | 2020-08-31 09:26 | PCM.DC.SUM ---
Discharge Date and Diagnosis - Problem List Patient Problems: Active and Suspected Problems COVID-19 (Acute) Leukopenia (Acute) THEODORE (acute kidney injury) (Acute) Date of Admission: 08/28/20 Date of Discharge: 08/31/20 - Primary Discharge Diagnosis Acute Problems: Active Problems COVID-19 (Acute) Leukopenia (Acute) THEODORE (acute kidney injury) (Acute) - Secondary Discharge Diagnosis Chronic Problems: Chronic Problems Hyperlipemia (Chronic) CAD (coronary artery disease) (Chronic) Seizure (Chronic) Depression (Chronic) Hypothyroid (Chronic) HTN (hypertension) (Chronic) Iron deficiency anemia (Chronic) Heart failure (Chronic) Vertigo (Chronic) Hospital Course and Treatment Operations: None Summary of Care Provided: [] This is a 70-year-old female with multiple comorbidities was admitted for generalized weakness along with nausea, vomiting and weakness since August 22, unable to stand up. She also had recent cough, decreased oral intake, intermittent fever with chills. No change in taste or smell, sore throat or shortness of breath. COVID-19 pneumonia, E. coli and Klebsiella lower urinary colonization. UTI ruled out: Patient is being admitted on Covid cohort unit. Seen by ID. Fibrinogen 657, D-dimer elevated. Patient is on Eliquis 5 mg twice daily at home for history of paroxysmal A. fib/flutter. On Decadron and remdesivir. Seen by ID and agree with the plan. Patient UA WBC 0-5, with 0-5, LE 25, nitrite positive. Patient more alert, she denies burning micturition, increase frequency urgency and as per son she had dark urine with foul order. urine culture shows more than 100,000 E. coli and Klebsiella pneumoniae [id number], resistant to benzylpenicillin except cefepime, ESBL negative. Sensitive to Cipro and Levaquin. Initially antibiotic was changed to Cipro. UA does not show much pyuria. After taking detailed history of negative new lower urinary tract symptoms including dysuria and ID biztalk consultant, it was decided that patient has asymptomatic colonization and does not need antibiotic. Antibiotic discontinued. I talked to the patient's son over phone and gave clinical update. Continue incentive spirometry and chest physiotherapy. Acute kidney injury secondary to dehydration -Normal creatinine 0.7-0.8. Patient is clinically dehydrated and BUN/creatinine improved after IV fluid. Follow-up kidney function daily. Hold patient's Lasix and lisinopril. Avoid nephrotoxic medications. Discontinue IV fluid Acute kidney injury resolved. Patient to resume Lasix at home. Hold lisinopril for further 5 more days. Leukopenia. Patient does not have lymphopenia. Due to COVID-19 pneumonia Leukopenia resolved. Hypothyroidism: TSH normal. Continue levothyroxine, home dose Coronary artery disease -Continue aspirin and Plavix -continue beta-anna marie -EKG showed no acute ischemic changes -Troponins negative Hypertension -Continue home Coreg -Old lisinopril Seizure disorder after the stroke. Patient has residual expressive aphasia after stroke. -Continue Keppra Depression -Continue Zoloft Overweight -Combined weight loss DVT prophylaxis -Heparin 5000 units 3 times a day CODE STATUS: DNRCC arrest with no intubation. Discharge medication reconciliation done. Discharge follow-up instructions completed. Discharge process discussed with the patient and all questions were answered to patient's satisfaction. Talked to the patient's son Alexandro and discuss about the hospital course and discharge medications Total time spent, exact 35 minutes on discharge meds reconciliation, examination, coordination of care with nurses and ancillary staff, review of imaging and blood test and discussion with the patient on follow-up instructions Patient Problems: Active and Suspected Problems COVID-19 (Acute) Leukopenia (Acute) THEODORE (acute kidney injury) (Acute) Objective: No fever or chills since admission. No tachycardia. Pulse ox 98% at rest on room air, 96% ambulating on room air. Patient does not have any significant cough, shortness of breath. Mild residual aphasia. Physical exam General: Alert, Oriented x3, Cooperative HEENT: Atraumatic, PERRLA, EOMI, Normocephalic Oral: No Gingival or Mucosal Lesions/ Ulcerations Neck: Supple, No JVD, Negative Carotid Bruits Lungs: Air entry diminished in bilateral lung bases. Lungs clear. No crepitation or rhonchi. No tachypnea Cardiovascular: Regular rate, Regular Rhythm, Normal S1, Normal S2, No murmurs Abdomen: Bowel Sounds Present, Soft, Non Tender, Non-Distended : No renal angle tenderness. No suprapubic tenderness. Extremities: No edema, Capillary Refill Less than 3 Seconds Skin: No rashes, No breakdown Musculoskeletal: No Tenderness to Palpation of Joints or Extremities Neurological: Residual expressive aphasia from the previous stroke. Cranial nerves II-XII grossly intact, Deep Tendon Reflexes 2+/4 and Symmetrical. Psych/Mental Status: Normal Affect, Appropriate. - Physical Exam Vitals/I&O's: Vital Signs Temp Pulse Resp BP Pulse Ox 97.1 F L 71 20 H 123/56 H 98 08/31/20 03:34 08/31/20 05:59 08/31/20 03:34 08/31/20 03:34 08/31/20 03:34 Oxygen Flow Rate (L/min) 2 Oxygen Delivery Method Nasal Cannula Weight: 165 lb 9.074 oz Body Mass Index (BMI) 28.4 Intake and Output for Last 24 Hours 08/29/20 08/30/20 08/31/20 23:59 23:59 23:59 Intake Total 3185 / 3185 780 / 1330 550 / 550 Balance 3185 / 3185 780 / 1330 550 / 550 Microbiology Past 72 Hours 08/28/20 15:50 Blood Culture (Wb) - Right Forearm Blood Culture - Preliminary No growth in 48 hours. 08/28/20 15:40 Blood Culture (Wb) - Anticubital Left Blood Culture - Preliminary No growth in 48 hours. 08/28/20 16:05 Urine Catheter - Catheter Urine Culture - Final Escherichia coli Klebsiella pneumoniae sp pneum 08/28/20 15:40 Mucosa - Nose SARS-CoV-2 Antigen (Rapid) - Final SARS-CoV-2 (COVID 19) 08/28/20 15:40 Mucosa - Nose Influenza Types A,B Direct FA (JUAN) - Final Laboratory Results 08/31/20 06:27: WBC 4.1 L, RBC 3.61 L, Hgb 10.5 L, Hct 33.6 L, MCV 93.1, MCH 29.1, MCHC 31.3 L, RDW Std Deviation 45.1 H, RDW Coeff of Lev 13.1, Plt Count 284, MPV 10.0 08/31/20 06:27: Sodium Pending, Potassium Pending, Chloride Pending, Carbon Dioxide Pending, Anion Gap Pending, BUN Pending, Creatinine Pending, Est GFR (MDRD) Af Amer Pending, Est GFR (MDRD) Non-Af Pending, BUN/Creatinine Ratio Pending, Glucose Pending, Calcium Pending, Total Bilirubin Pending, AST Pending, ALT Pending, Alkaline Phosphatase Pending, Total Protein Pending, Albumin Pending Current Medications Acetaminophen (Acetaminophen 325 Mg Tablet) 650 mg PO Q6H PRN PRN PRN Reason: Pain Score 1-10/Temp > 100.7 F Al Hydroxide/Mg Hydroxide (Mag Hydrox/Al Hydrox/Simeth 30 Ml Udc) 30 ml PO Q6H PRN PRN PRN Reason: Gastric Burning Albuterol Sulfate (Albuterol 2.5 Mg/3 Ml Vial.Neb.) 2.5 mg INHALATION Q2H PRN PRN PRN Reason: Shortness of Breath/Wheezing Apixaban (Apixaban 2.5 Mg Tablet) 2.5 mg PO BID [facility] Last Admin: 08/30/20 20:59 Dose: 2.5 mg Documented by: Aspirin (Aspirin E.C. 81 Mg Tablet) 81 mg PO DAILY [facility] Last Admin: 08/30/20 08:35 Dose: 81 mg Documented by: Atorvastatin Calcium (Atorvastatin Calcium 20 Mg Tablet) 20 mg PO QHS [facility] Last Admin: 08/30/20 21:00 Dose: 20 mg Documented by: Calamine/Phenol (Menthol/Lanolin/Calamine/Znox 113 Gm Tube) 1 applic TOPICAL BID [facility]; Protocol Last Admin: 08/31/20 06:52 Dose: 1 applicatio Documented by: Carvedilol (Carvedilol 12.5 Mg Tablet) 12.5 mg PO BID [facility] Last Admin: 08/30/20 21:00 Dose: 12.5 mg Documented by: Ciprofloxacin HCl (Ciprofloxacin 500 Mg Tablet) 500 mg PO BID [facility] Dexamethasone (Dexamethasone 4 Mg Tablet) 6 mg PO DAILY [facility] Stop: 09/08/20 10:01 Last Admin: 08/30/20 08:33 Dose: 6 mg Documented by: Docusate Sodium (Docusate Sodium 100 Mg Capsule) 100 mg PO BID PRN PRN PRN Reason: Constipation Guaifenesin (Guaifenesin 10 Ml Udc (200mg/10ml)) 20 ml PO Q4H PRN PRN PRN Reason: COUGH Remdesivir 100 mg/ Sodium (Chloride) 250 mls @ 125 mls/hr IV DAILY@2200 [facility] Stop: 09/01/20 23:59 Last Infusion: 08/31/20 00:00 Dose: Infused Documented by: Levetiracetam (Levetiracetam 500 Mg Tablet) 500 mg PO BID [facility] Last Admin: 08/30/20 20:59 Dose: 500 mg Documented by: Levothyroxine Sodium (Levothyroxine 50 Mcg Tablet) 50 mcg PO DAILY [facility] Last Admin: 08/30/20 08:34 Dose: 50 mcg Documented by: Melatonin (Melatonin 3 Mg Tablet) 3 mg PO QHS PRN PRN PRN Reason: INSOMNIA Morphine Sulfate (Morphine 2 Mg/Ml Syringe) 2 mg IV Q3H PRN PRN PRN Reason: Pain Score 6-10 Multivitamins (Multivitamins,Therapeutic Tablet) 1 tablet PO DAILY [facility] Last Admin: 08/30/20 08:34 Dose: 1 tablet Documented by: Sertraline HCl (Sertraline 100 Mg Tablet) 100 mg PO QHS [facility] Last Admin: 08/30/20 21:00 Dose: 100 mg Documented by: Sodium Chloride (0.9% Saline Lock 10 Ml Syringe) 10 ml IV UD [facility] Last Admin: 08/31/20 04:02 Dose: 10 ml Documented by: Home Medications: Medications to take at Discharge Atorvastatin Calcium [Lipitor] 20 mg PO QHS 08/17/18 Clopidogrel Bisulfate [Clopidogrel] 75 mg PO DAILY 08/17/18 Furosemide [Lasix] 20 mg PO DAILY 08/17/18 Levetiracetam 500 mg PO BID 08/17/18 Levothyroxine [Synthroid] 50 mcg PO DAILY 08/17/18 Sertraline HCl 100 mg PO QHS 08/17/18 Meclizine HCl [Antivert] 12.5 mg PO Q8 PRN #20 tab 08/21/18 Aspirin E.C. [Ecotrin] 81 mg PO DAILY@0800 08/28/20 Carvedilol [Coreg (Beta Anna Marie)] 12.5 mg PO BID 08/28/20 Chlorpheniramine/Dextromethorp [Coricidin Hbp Cough-Cold Tab] 1 - 2 tab PO Q4H PRN PRN 08/28/20 Multivit,Calc,Mins/Iron/Folic [Thera-M Tablet] 1 tab PO DAILY 08/28/20 Apixaban [Eliquis] 2.5 mg PO BID #30 tab 08/31/20 Dexamethasone [Decadron] 6 mg PO DAILY #11 tab 08/31/20 Guaifenesin/Pseudoephedrne HCl [Mucinex D ER 1,200-120 mg Tab] 1 ea PO BID #14 tab.er.12h 08/31/20 Lisinopril 5 mg PO QHS #0 08/31/20 Following Prescriptions Were Given to Patient: Dexamethasone [Decadron] 6 mg PO DAILY #11 tab Transmission Status: Received by TABITHA JAQUEZ RD Apixaban [Eliquis] 2.5 mg PO BID #30 tab Transmission Status: Received by TABITHA JAQUEZ RD Guaifenesin/Pseudoephedrne HCl [Mucinex D ER 1,200-120 mg Tab] 1 ea PO BID #14 tab.er.12h Transmission Status: Received by TABITHA JAQUEZ RD Primary Care Physician: Lenin Bhatt MD [Primary Care Provider] - Medical Necessity - Tobacco Use Smoking Status: Smoker, status unknown Tobacco Use: Non-smoker Meaningful Use Info Meaningful Use Diagnoses (Choose all that apply): None applicable Inpatient E&M: 97990 [facility]
--- NOTE | 2020-09-03 14:54 | CASEMGMT ---
WHITLEY SOLANO DC PHONE CALL DC DATE: 08/29/20 DC DISPOSITION: DC DIAGNOSIS: SARS COVID 2 Call to patient's phone. Son answered and he was very upset that patient went home over the weekend and did not have HHC set up prior to dc. He stated he spoke with PCP office and the patient's insurance office supervisor who stated this should have been set up over the weekend. WHITLEY SOLANO read over CM notes with son, including son being updated that if pt returns home over weekend, HHC could not be set up before Wednesday and son could contact PCP in this event. Son stated that the physician and insurance CM told him the hospital should have completed this. WHITLEY SOLANO tried to explain that HHC agencies are not open on the weekend. He was also angry that the PCP was not informed throughout the patient's stay re: her medical condition. WHITLEY SOLANO attempted to let son know that the protocol for [facility] is for the hospital physicians to manage care while the patient is @ hospital. Son states he does not agree with this and patient's doctor should have been made aware and seen the patient at the hospital. WHITLEY SOLANO attempted to explain, however son then stated that the PCP office did not receive any documentation re: patient stay until wednesday. WHITLEY SOLANO again attempted to explain that the patient's medical record is sent to the PCP after discharge. The patient went home on Wednesday and medical records would not have been open until Wednesday. Son stated he did not want to hear excuses and became more agitated with conversation -WHITLEY SOLANO at this point let son know that this manager of case management understood his concerns and felt he could benefit from speaking with the patient advocate. Role of patient advocate explained and phone number given. WHITLEY SOLANO again let son know his concerns were important and the patient advocate would be able to look into his concerns more thoroughly. -WHITLEY SOLANO asked son if he would like CM to contact physician re: HHC or if other help was needed and this was declined. Son thanked WHITLEY SOLANO for guidance on calling the patient advocate and call was concluded. Mona PALOMINOM
== END 2020-08-31 16:13 | disposition home or self-care (01) | DRG 177 ==
LOC: ED 15:38 → MS3 17:33 → MS2 17:40
PROVIDERS: Admitting Provider Internal Medicine; Emergency Provider Emergency Medicine; PCP Internal Medicine; Visit Provider Internal Medicine
DX: U07.1 COVID-19 (principal); J12.82 Pneumonia due to coronavirus disease 2019; N17.9 Acute kidney failure, unspecified; R09.02 Hypoxemia; I11.0 Hypertensive heart disease with heart failure; I50.9 Heart failure, unspecified; E86.0 Dehydration; G40.909 Epilepsy, unspecified, not intractable, without status epilepticus; I48.0 Paroxysmal atrial fibrillation; I69.320 Aphasia following cerebral infarction; I25.10 Atherosclerotic heart disease of native coronary artery without angina pectoris; D50.9 Iron deficiency anemia, unspecified; E03.9 Hypothyroidism, unspecified; E78.5 Hyperlipidemia, unspecified; F32.9 Major depressive disorder, single episode, unspecified; F17.200 Nicotine dependence, unspecified, uncomplicated; Z22.39 Carrier of other specified bacterial diseases; E66.3 Overweight; Z68.28 Body mass index [BMI] 28.0-28.9, adult; Z79.82 Long term (current) use of aspirin; Z79.01 Long term (current) use of anticoagulants; Z79.02 Long term (current) use of antithrombotics/antiplatelets; Z79.890 Hormone replacement therapy; Z79.899 Other long term (current) drug therapy; Z86.73 Personal history of transient ischemic attack (TIA), and cerebral infarction without residual deficits
CPT/HCPCS: 36415; 71045; 80053; 81001; 83605; 83735; 84100; 84443; 84484; 85025; 85027; 85379; 85384; 85610; 85730; 87040; 87077; 87086; 87088; 87186; 87426; 87804; 93005; 97116; 97162; 97166; 97530; 99251; 99285; J7030; J7040; J7050; A4216; G0463

== ENCOUNTER 2020-09-25 12:10 | Outpatient (RCR) | payer MEDICARE, MEDICAID, SELFPAY ==
[2020-09-25 12:49] LABS: Hematocrit 32.2 % (37-47); Hemoglobin 10.2 g/dL (12.0-15.0); Mean Corp Hgb Conc 31.7 g/dL (32-36); Mean Corpuscular Hgb 30.1 pg (27.0-32.0); Mean Platelet Vol. 9.9 fl (6.2-12.0); Platelet Count 321 K/mm3 (150-450); RBC Distribution Width SD 51.2 fl (35.1-43.9); Red Blood Count 3.39 M/mm3 (4.2-5.4); White Blood Count 6.7 K/mm3 (4.4-11.0)
[2020-09-25 13:45] LABS: Anion Gap 5 (5-15); BUN 8 mg/dL (7-18); BUN/Creat Ratio 11.2 RATIO (10-20); Calcium,Total 8.5 mg/dL (8.5-10.1); Chloride 107 mmol/L (98-107); Creatinine, Serum 0.72 mg/dL (0.55-1.02); EST Glomerular Filtration Rate 86 mL/min (>60); Est Glom Filt Rate - Afr Amer 104 mL/min (>60); Glucose 129 mg/dL (74-106); Potassium 4.5 mmol/L (3.5-5.1); Sodium Level 140 mmol/L (136-145)
== END 2020-09-25 18:00 | disposition home or self-care (01) ==
LOC: HHLAB 12:10
PROVIDERS: PCP Internal Medicine; Referring Provider Internal Medicine; Visit Provider Internal Medicine
DX: I50.9 Heart failure, unspecified (principal); D64.9 Anemia, unspecified
CPT/HCPCS: 80048; 85027

== ENCOUNTER 2021-03-11 12:42 | Emergency (ER) | payer MEDICARE, MEDICAID, SELFPAY ==
[2021-03-11 12:42] VITALS: BP 159/60; PULSE 82; RESP 14; TEMP 36.9; O2SAT 94; BMI 29.0
--- NOTE | 2021-03-11 12:48 | ED.RN ---
medical hx not complete due to pt unable to remember. does remember havinf a stroke in 2013 with aphasia
--- NOTE | 2021-03-11 13:31 | EKG12_ITS ---
Test Reason : FALL Blood Pressure : / mmHG Vent. Rate : 075 BPM Atrial Rate : 075 BPM P-R Int : 174 ms QRS Dur : 130 ms QT Int : 450 ms P-R-T Axes : 062 -13 055 degrees QTc Int : 502 ms Normal sinus rhythm Left bundle branch block Abnormal ECG Confirmed by NATANAEL SIMON, TOM ([id number]), multimedia editor KARYNA RAY ([id number]) on 03/12/2021 12:43:18 PM Referred By: TIFFANIE Confirmed By:TOM SANTOYO MD
--- NOTE | 2021-03-11 13:31 | CT_ITS ---
STUDY: CT BRAIN WITHOUT CONTRAST REASON FOR EXAM: Female, 70 years old. Injury due to falls. Patient is on anticoagulants. History of seizures. RADIATION DOSAGE (If Supplied By Facility): CTDIvol = ( 38.43 ) mGy, DLP = ( 683.87 ) mGycm TECHNIQUE: Transaxial CT imaging of the brain was performed without administration of intravenous contrast material. Individualized dose optimization techniques were used for this CT. COMPARISON: Comparison is made with prior examination dated 08/17/2008. FINDINGS: Normal soft tissue structures. Normal calvarium. There is mild cerebral atrophy with widening of the extra-axial spaces and ventricular dilatation. Stable encephalomalacia involving the left frontal temporal parietal lobes. Normal basal ganglia and thalami. Normal brainstem. Normal cerebellum. There is no intracranial hemorrhage. There are no findings of an acute ischemic infarction. Normal visualized paranasal sinuses. CT/Brain/Head without Contrast IMPRESSION: Chronic involutional changes of the brain. Electronically Signed: Nato Carr MD at 13:59 EDT , Service support ,
--- NOTE | 2021-03-11 13:33 | EDS_ITS ---
HPI HPI - Fall History of Present Illness Chief Complaint: Fall Informant: patient and family Occured/Mechanism Occurred: Today (x2) Mechanism/Context: Yes cannot recall fall Usually ambulates: Walker Pain/Injury Pain Location: head Worsened by: nothing Relieved by: ibuuprofen taken earlier this AM Associated Symptoms Associated Symptoms: Negative for Parasthesias, Weakness, Loss of function, Inability to ambulate and Loss of consciousness Narrative Narrative: Patient lives with son who provides most of the history. She had a fall in the middle of the night just after midnight, hit her head on a nearby piece of furniture. She does not know how she fell and he is not exactly sure either. Then later in the morning, she was sitting in her recliner which is close to the front door, [employer] came and knocked on the door, she got up quickly, became lightheaded and collapsed to the floor, without loss of consciousness or injury but she was unable to get up on her own. Her son was out temporarily at the time, so she pressed life alert after laying there for a little while since she did not have any help, and [employer] had left. She states both times, her walker/Rollator was close but she had not had a chance to get to it. She usually uses it to get around. She is on aspirin and clopidogrel for history of stroke that was right brain and affecting her left side which is still mildly weak. She was recently diagnosed with a renal mass that was suspicious for cancer, still in work-up but they were unable to get a biopsy because the last time he took her off of her antiplatelet, she had a recurrent stroke. [facility] Medical History CAD (coronary artery disease) COVID-19 Depression Heart failure History of stroke HTN (hypertension) Hyperlipemia Hypothyroid Iron deficiency anemia Seizure Vertigo Home Medications atorvastatin 20 mg PO QHS 08/17/18 [History Last Taken 08/27/20] clopidogrel 75 mg PO DAILY 08/17/18 [History Last Taken 08/28/20] levetiracetam 500 mg PO BID 08/17/18 [History Last Taken 08/28/20] levothyroxine 50 mcg PO DAILY 08/17/18 [History Last Taken 08/28/20] sertraline 100 mg PO QHS 08/17/18 [History Last Taken 08/27/20] aspirin 81 mg PO DAILY@0800 08/28/20 [History Last Taken 08/28/20] carvedilol 12.5 mg PO BID 08/28/20 [History Last Taken 08/28/20] axkmoobw-gkvb-LG-calcium-mins 1 tab PO DAILY 08/28/20 [History Last Taken 08/28/20] lisinopril 5 mg PO QHS #0 08/31/20 [Rx Last Taken 08/27/20] cephalexin 500 mg PO Q6 #28 capsule 03/11/21 [Rx Last Taken Unknown] Allergy/AdvReac Type Severity Reaction Status Date / Time No Known Allergies Allergy Verified 08/28/20 15:07 Social History Smoking Status: Smoker, status unknown ROS ROS ED Constitutional Constitutional ED: Denies chills or fever(s) Eyes Eyes: Denies change in vision or diplopia ENT ENT ED: Denies rhinorrhea or sore throat Cardiovascular Cardiovascular: Denies chest pain or palpitations Respiratory/Chest Respiratory/Chest: Denies cough or dyspnea Gastrointestinal Gastrointestinal: Denies abdominal pain, diarrhea, nausea or vomiting Genitourinary Genitourinary ED: Denies dysuria or hematuria Musculoskeletal Musculoskeletal: Denies back pain or neck pain Integumentary Denies abscess or rash Neurologic Neurologic: Reports other Details: Had headache earlier but now feels better ; Denies headache(s), paresthesias or weakness Psychiatric Psychiatric: Denies anxiety or suicidal thoughts EXAM Physical Exam Const Vital Signs: 03/11/21 12:42 Temperature 98.5 F Temperature Source Oral Pulse Rate 82 Respiratory Rate 14 Blood Pressure 159/60 H Blood Pressure Mean 93 Pulse Ox 94 Oxygen Delivery Method Room Air Positive well nourished and well developed General Appearance ED: well developed and NAD HEENT Reports TM's normal bilaterally and moist mucous membranes HEENT Narrative: No crepitance or depression on top of head where patient hit. normocephalic and atraumatic; Negative for Horn's sign Eyes PERRL and EOMs intact bilaterally Neck full ROM and supple Resp normal respiratory effort and clear to auscultation bilaterally Cardio regular rate, regular rhythm and no murmurs GI non-tender and non-distended Auscultation: normoactive bowel sounds Palpation: soft Back/Spine no CVA tenderness General Back: other FROM Extremity normal to inspection General Extremety ED: Negative for edema, pulses abnormal or tenderness General Extremity: Negative for edema or pulses abnormal Neuro CN's II-XII intact bilaterally and no sensory deficits noted Sensorium / Orientation: awake, alert, oriented to person and oriented to place Motor Exam: strength 5/5 throughout Skin no rashes or lesions noted and no wounds MDM MDM MDM Narrative Medical decision making narrative: Work-up shows urinary tract infection, no evidence of renal failure, leukocytosis, or head injury on CT. My interpretation 1 view chest x-ray shows no acute pneumonia/infiltrates, just chronic findings. Patient is doing well, she is eating, she is able to stand and bear weight, I sent her urine for culture and start her on cephalexin, according to the hospital antibiogram. She is comfortable going home and son is as well, discussed reasons to return. Suspect weakness due to urinary tract infection, but she is not septic and able to stand. Lab Data Attestation: I reviewed the patient's lab results. Labs: Laboratory Results - last 24 hr 03/11/21 03/11/21 03/11/21 12:51 12:51 14:30 WBC 6.4 RBC 4.09 L Hgb 12.0 Hct 37.8 MCV 92.4 MCH 29.3 MCHC 31.7 L RDW Std Deviation 46.9 H RDW Coeff of Lev 13.7 Plt Count 271 MPV 10.2 Immature Gran % (Auto) 0.200 Neut % (Auto) 61.9 Lymph % (Auto) 27.6 Gilmer % (Auto) 7.6 Eos % (Auto) 1.9 Baso % (Auto) 0.8 Absolute Neuts (auto) 4.0 Absolute Lymphs (auto) 1.77 Nucleated RBC % 0 Sodium 139 Potassium 4.3 Chloride 108 H Carbon Dioxide 27.0 Anion Gap 4 L BUN 19 H Creatinine 0.88 Estim Creat Clear Calc 51.37 Est GFR (MDRD) Af Amer 82 Est GFR (MDRD) Non-Af 68 BUN/Creatinine Ratio 21.7 H Glucose 116 H Calcium 8.8 Troponin I High Sens 8.1 Urine Color Yellow Urine Clarity Sl. Cloudy Urine pH 5.0 Ur Specific Sherwood 1.020 Urine Protein Negative Urine Glucose (UA) Normal Urine Ketones Negative Urine Occult Blood 50 H Urine Nitrite Negative Urine Bilirubin Negative Urine Urobilinogen Normal Ur Leukocyte Esterase 500 H Urine RBC 0-5 SEEN Urine WBC 25-50 SEEN Ur Squamous Epith Cells 0-5 SEEN Urine Bacteria 2+ Urine Mucus 0 SEEN Radiography Diagnostic Testing: Radiology Impression Brain CT 03/11/21 13:31 IMPRESSION: Chronic involutional changes of the brain. Electronically Signed: Nato Carr MD at 13:59 EDT , Service support , Chest X-Ray 03/11/21 13:56 IMPRESSION: Hyperinflation. The lungs are clear. Electronically Signed: Nato Carr MD at 14:16 EDT , Service support , EKG Initial EKG: Attestation: I personally reviewed and interpreted this EKG as follows: Interpretation: Sinus Rhythm, No Acute Injury Pattern and LBBB Prior EKG tracings: available for review Prior: Unchanged Discharge Plan Triage Chief Complaint: Fall ED Provider: Demetri Matos Dx/Rx/DC Orders Clinical Impression: Multiple falls, Closed head injury without concussion, Acute UTI Instructions: ED CYSTITIS Female Adult Prescriptions: New cephalexin [cephalexin] 500 MG capsule 500 mg PO Q6 Qty: 28 RF: 0 No Action atorvastatin 20 MG tablet 20 mg PO QHS RF: 0 levetiracetam 500 MG tablet 500 mg PO BID RF: 0 sertraline 100 MG tablet 100 mg PO QHS RF: 0 clopidogrel 75 MG tablet 75 mg PO DAILY RF: 0 levothyroxine 50 MCG tablet 50 mcg PO DAILY RF: 0 carvedilol 12.5 MG tablet 12.5 mg PO BID RF: 0 aspirin 81 MG tablet 81 mg PO DAILY@0800 RF: 0 strytaqc-zlgd-DT-calcium-mins 1 EACH tablet 1 tab PO DAILY RF: 0 lisinopril 5 MG tablet 5 mg PO QHS Qty: 0 RF: 0 Primary Care Provider: Lenin Bhatt Referrals: Lenin Bhatt MD [Primary Care Provider] - 3-5 Days Disposition Disposition: Home, Self Care
--- NOTE | 2021-03-11 13:56 | RAD_ITS ---
STUDY: X-RAY CHEST REASON FOR EXAM: Female, 70 years old. Weakness and shortness of breath. History of fall. TECHNIQUE: Single AP portable view of the chest. COMPARISON: Comparison is made with prior study dated 08/28/2020. FINDINGS: EKG electrodes are seen. Hyperinflation. Scattered calcified granulomas. There is no demonstrated pleural abnormality. Normal size heart. Normal mediastinum and sunita. Normal visualized pulmonary arteries. There is atherosclerotic calcification of the aortic arch with tortuosity. There are diffuse degenerative changes of the visualized thoracic spine. Normal visualized ribs, clavicles, and shoulders. There is no demonstrated abnormality of the visualized soft tissue structures of the upper abdomen. RAD/Chest 1 View (Portable) IMPRESSION: Hyperinflation. The lungs are clear. Electronically Signed: Nato Carr MD at 14:16 EDT , Service support ,
[2021-03-11 14:05] LABS: Absolute Lymphocyte Count 1.77 X10^3/uL (0.83-4.51); Basophil# 0.05 X10^3/uL; Basophil% 0.8 % (0-1); Eosinophil# 0.12 X10^3/uL; Eosinophils% 1.9 % (0-5); Hematocrit 37.8 % (37-47); Lymphocyte # 1.77 X10^3/ul (0.83-4.51); Lymphocyte % 27.6 % (19-41); Mean Corp Hgb Conc 31.7 g/dL (32-36); Mean Corpuscular Hgb 29.3 pg (27.0-32.0); Mean Corpuscular Volume 92.4 fL (81-99); Mean Platelet Vol. 10.2 fl (6.2-12.0); Monocyte# 0.49 X10^3/uL; Monocyte% 7.6 % (0-10); NRBC Flagged by Analyzer 0 % (0-5); Neutrophil # 3.98 X10^3/uL (2.7-7.7); Neutrophil % 61.9 % (47-70); Platelet Count 271 K/mm3 (150-450); RBC Distribution Width CV 13.7 % (11.6-14.6); RBC Distribution Width SD 46.9 fl (35.1-43.9); Red Blood Count 4.09 M/mm3 (4.2-5.4); White Blood Count 6.4 K/mm3 (4.4-11.0)
[2021-03-11 14:19] LABS: Anion Gap 4 (5-15); BUN 19 mg/dL (7-18); BUN/Creat Ratio 21.7 RATIO (10-20); Calcium,Total 8.8 mg/dL (8.5-10.1); Chloride 108 mmol/L (98-107); Creatinine, Serum 0.88 mg/dL (0.55-1.02); EST Glomerular Filtration Rate 68 mL/min (>60); Est Glom Filt Rate - Afr Amer 82 mL/min (>60); Estimated Creatinine Clearance 51.37 ml/min; Glucose 116 mg/dL (74-106); Potassium 4.3 mmol/L (3.5-5.1); Sodium Level 139 mmol/L (136-145); Troponin-I HS 8.1 pg/mL (3.0-53.7)
[2021-03-11 14:39] LABS: Mucous, Urine 0 SEEN /hpf (<or=2+)
[2021-03-11 14:41] LABS: Color, Urine Yellow (Yellow); Glucose, Dipstick Normal (Normal); Ketone-Dipstick Negative (Negative); Leukocyte Esterase-Dipstick 500 /ul (Negative); Nitrite-Dipstick Negative (Negative); Occult Blood-Urine 50 /ul (Negative); Protein-Dipstick Negative (Negative); Urine Bilirubin Dipstick Negative (Negative); Urine Clarity Sl. Cloudy (Clear); Urine Urobilinogen Normal (Normal)
[2021-03-11 14:50] LABS: Bacteria 2+ /hpf (None Seen); Red Blood Cells-Urine 0-5 SEEN /hpf (0-5); Squamous Epithelial Cells - UA 0-5 SEEN /hpf (5-10); White Blood Cells 25-50 SEEN /hpf (0-5)
[2021-03-11] MEDS: Cephalexin 250 MG Capsule 500 MG PO (15:49)
[2021-03-11 16:00] VITALS: BP 135/55; PULSE 93; RESP 18; O2SAT 97
== END 2021-03-11 16:01 | disposition home or self-care (01) ==
PROVIDERS: Emergency Provider Emergency Medicine; PCP Internal Medicine
DX: S09.90XA Unspecified injury of head, initial encounter (principal); N39.0 Urinary tract infection, site not specified; R29.6 Repeated falls; W01.190A Fall on same level from slipping, tripping and stumbling with subsequent striking against furniture, initial encounter; Y93.9 Activity, unspecified; Y92.009 Unspecified place in unspecified non-institutional (private) residence as the place of occurrence of the external cause; Y99.9 Unspecified external cause status; I11.0 Hypertensive heart disease with heart failure; I50.9 Heart failure, unspecified; I25.10 Atherosclerotic heart disease of native coronary artery without angina pectoris; I69.354 Hemiplegia and hemiparesis following cerebral infarction affecting left non-dominant side; E03.9 Hypothyroidism, unspecified; E78.5 Hyperlipidemia, unspecified; R56.9 Unspecified convulsions; F32.9 Major depressive disorder, single episode, unspecified; Z79.02 Long term (current) use of antithrombotics/antiplatelets; Z79.82 Long term (current) use of aspirin; Z79.890 Hormone replacement therapy; Z79.899 Other long term (current) drug therapy; Z86.16 Personal history of COVID-19
CPT/HCPCS: 70450; 71045; 80048; 81001; 84484; 85025; 87077; 87086; 87088; 87186; 93005; 99285

== ENCOUNTER 2023-03-25 08:28 | Outpatient (RCR) | payer MEDICARE, MEDICAID, SELFPAY ==
[2023-03-25 09:04] VITALS: BP 95/38; PULSE 83; RESP 16; TEMP 36.4; BMI 29.2
--- NOTE | 2023-03-25 11:34 | PCM.WC.HP ---
History of Present Illness Date of Service: 03/25/23 Chief Complaint: Non healing sacral ulcer History of Wound: Ms. Lopez is a 72-year-old who was referred to the wound center due to nonhealing sacral ulcer. Not very clear on how long it has been there but her son states that it was brought to his attention 2 to 3 weeks ago. She has been applying nystatin cream to the area. History of CVAs with minimal activity. No known history of diabetes. No chills, fever or otherwise feeling of unwell reported. [facility] Medical History (Updated 03/25/23 @ 12:[address] Catarino Dominguez MD) CAD (coronary artery disease) COVID-19 Debility Depression Heart failure History of stroke HTN (hypertension) Hyperlipemia Hypothyroid Iron deficiency anemia Sacral decubitus ulcer, stage III Seizure Vertigo Home Medications atorvastatin 20 mg tablet 20 mg PO QHS cholesterol 08/17/18 [History Last Taken 08/27/20] clopidogrel 75 mg tablet 75 mg PO DAILY 08/17/18 [History Last Taken 08/28/20] levetiracetam 500 mg tablet 500 mg PO BID seizures 08/17/18 [History Last Taken 08/28/20] levothyroxine 50 mcg tablet 50 mcg PO DAILY Thyroid 08/17/18 [History Last Taken 08/28/20] sertraline 100 mg tablet 150 mg PO QHS depression 08/17/18 [History Last Taken 08/27/20] aspirin 81 mg tablet,delayed release 81 mg PO DAILY@0800 08/28/20 [History Last Taken 08/28/20] carvedilol 12.5 mg tablet 12.5 mg PO BID heart 08/28/20 [History Last Taken 08/28/20] multivitamin-iron 9 mg-folic acid 400 mcg-calcium and minerals tablet 1 tab PO DAILY supplement 08/28/20 [History Last Taken 08/28/20] lisinopril 5 mg tablet 5 mg PO QHS bp ##0 08/31/20 [Rx Last Taken 08/27/20] albuterol sulfate 2.5 mg/3 mL (0.083 %) solution for nebulization 1.25 mg inhalation Q6H PRN shortness of breath or wheezing 03/25/23 [History Last Taken Unknown] albuterol sulfate 90 mcg/actuation aerosol inhaler (ProAir HFA) 2 inh inhalation Q4H PRN shortness of breath or wheezing 03/25/23 [History Last Taken Unknown] furosemide 20 mg tablet 20 mg PO DAILY 03/25/23 [History Last Taken Unknown] spironolactone 25 mg tablet (Aldactone) 25 mg PO DAILY 03/25/23 [History Last Taken Unknown] Allergy/AdvReac Type Severity Reaction Status Date / Time No Known Allergies Allergy Verified 03/25/23 09:04 Social History Smoking Status: Former smoker ROS Constitutional Constitutional: Reports frequent falls; Denies excessive sweating, fever(s), headache(s), increased appetite or night sweats Eyes Eyes: Denies change in eye color, change in vision, discharge from eye(s), discongugate gaze, excessive blinking or exophthalmos ENT HEENT: Denies mouth pain, mucositis, nasal congestion, nasal discharge, nasal obstruction or neck mass Cardiovascular Cardiovascular: Denies clubbing, cold extremities, cyanosis, diaphoresis, dizziness or dyspnea at rest Respiratory/Chest Respiratory/Chest: Denies difficulty clearing secretions, dry cough, excessive phlegm production, hemoptysis, hoarseness or inability to speak Gastrointestinal Gastrointestinal: Denies abdominal pain, bloating, chewing difficulty, dry heaves, excessive flatus or fecal incontinence Genitourinary Genitourinary: Denies abdominal discomfort, difficulty urinating or flank pain Musculoskeletal Musculoskeletal: Denies joint swelling, muscle cramps, muscle weakness, numbness or tremors Integumentary Integumentary: Reports skin ulcer; Denies erythema, furuncle, hirsutism, jaundice or skin swelling Neurologic Neurologic: Denies behavior changes, burning sensations, confusion, disequilibrium, focal weakness, frequent falls or memory loss Psychiatric Psychiatric: Denies auditory hallucinations, behavioral changes, irritability, mood swings, panic attacks or paranoia Endocrine Endocrinology: Denies deepening of the voice, excessive sweating, heat intolerance, increase in ring/shoe/hat size or palpitations Allergic/Immunologic Allergic/Immunologic: Denies itchy eyes, lip swelling, throat swelling, tongue swelling, hives, urticaria or wheezing Vital Signs Vital Signs Vital Signs: 03/25/23 09:04 Temperature 97.6 F L Temperature Source Temporal Pulse Rate 83 Respiratory Rate 16 Blood Pressure 95/38 L Blood Pressure Mean 57 Blood Pressure Source Monitor Blood Pressure Position Sitting Blood Pressure Location Left Arm Oxygen Delivery Method Room Air Weight Weight: 170 lb Body Mass Index (BMI) 29.2 Physical Exam Const alert, oriented x3 and no apparent distress General Appearance: cooperative and comfortable HEENT normocephalic and head/scalp atraumatic Eyes EOMs intact bilaterally Neck full ROM and supple General: normal visual inspection Resp normal respiratory effort and normal air movement Effort and Inspection: able to speak in complete sentences Cardio regular rate, regular rhythm, S1 normal heart sound and S2 normal heart sound GI soft to palpation, non-tender and non-distended Skin Wounds: wounds noted Neuro oriented x3, CN's II-XII intact bilaterally and moves all extremities Psych mental status grossly normal, thought process normal and cooperative Debridement Note Debridement Note Wound debrided: Sacral Wound Grade/Stage: Stage III Type of Debridement: Excisional debridement Anesthesia Used: 4% Lidocaine Solution Depth: Down to and including healthy tissue and in the subcutaneous layer Percentage of wound debrided: 100 Instrument Used: 3mm curette Tissue Removed: Slough and devitalized tissue Severity: Fat Layer Exposed Amount of bleeding with debridement: Mild Bleeding Controlled with: Pressure Patient tolerated procedure: Patient tolerated procedure well Post-Debridement Measurements and Additional Note: Post-Debridement Measurements/Treatment - Nurse 1 - General Ulcer Assessment Start: 03/25/23 09:04 Freq: Status: Active Protocol: .LISBET Activity Type Activity Date Activity User E-sign Co-sign Detail Recorded Client Recorded Date Recorded By Document 03/25/23 09:04 [facility] [id number] 03/25/23 09:14 [facility] 03/25/23 09:04 - Today's Visit Information Type of service Initial Visit Arrival Mode Wheelchair Transfer Assistance Other Transfer Assist (Other) 2 stand by; Accompanied by son Patient Identification Verified (Name & Yes ) Patient Requires Transmission-Based No Precautions Height and Weight Height 5 ft 4 in Weight 170 lb Weight in Pounds 170.0 lbs Weight Measurement Method Estimated by Patient Body Mass Index (BMI) 29.2 BMI Classification Overweight BSA - Tr 1.83 Vital Signs Temperature (97.8 F-99.1 F) 97.6 F L Temperature Source Temporal Pulse Rate (60-100) 83 Pulse Location Monitor Respiratory Rate (12-18) 16 Respiratory rate source Observation Oxygen Delivery Method Room Air Blood Pressure (90/60-120/80) 95/38 L Blood Pressure Mean 57 Source Monitor Position Sitting Blood Pressure Location Left Arm History Since Last Visit- (Skip if this is Patient's initial visit) Left Footwear Regular Shoe Right Footwear Regular Shoe Pain Scale: 0-10 Numeric Is Patient Pain Free? 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 Required No Able to Read Yes Able to Write Yes Communication Tools None Right Hearing Abillity Normal Left Hearing Abillity Normal Visual Assistive Devices None Teaching Assessment Preferences Verbal,Written, Audio/Visual, Demonstration Readiness To Learn Good Willingness to Engage in Self Management Med Activies Readiness to Engage in Self Management Med Activities Anxiety Level Calm Cooperation Cooperative Perception Coherent Interest in Health Problem Asks Questions Education Importance Acknowledges Need Does Patient Smoke tobacco or other No substances Smoking Status Former smoker Is Patient Diabetic Yes Functional Assessment Recent Decline in Ability to Perform Denies Any Declines 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 Cultural/Roman Catholic Needs that may affect No Treatment Plan Teaching: Wound Center *Welcome to the Wound Center -Person Taught Patient,Family -Teaching Method Discussion -Response to teaching Verbalize understanding Welcome to the Wound Care Center English CHANDRA - Nurse 1 - General Ulcer Measurement Start: 03/25/23 09:04 Freq: Status: Active Protocol: Activity Type Activity Date Activity User E-sign Co-sign Detail Recorded Client Recorded Date Recorded By Document 03/25/23 09:04 [facility] [id number] 03/25/23 09:14 [facility] 03/25/23 09:04 Wound Center Nurse 1 #1- SACRAL -Combined with other wound No -Current Size (cm) - Length 1.5 -Current Size (cm) - Width 0.3 -Current Size (cm) - Depth 0.6 -Total Square Cm 0.45 -Date of Last Picture (Recall this 03/25/23 field) -Photo Taken Yes -Epithelialization None Present -Tunneling No -Undermining/Tunneling No -Circular Undermining No -Exudate Amt Medium -Exudate Type Serosanguineous -Wound Margin Distinct, Outline Attached -Granulation Amt Large (67-100%) -Granulation Quality Red -Slough/Fibrin No -Necrosis Amt None Present (0 %) -Texture (Tsering-wound Skin Appearance) Assessed, Scarring -Moisture (Tsering-wound Skin Appearance) Assessed -Color (Tsering-wound Skin Appearance) Assessed -Temperature (Tsering-wound Skin No Abnormality Appearance) (Pt Warm) -Tenderness on Palpation (Tsering-wound No Skin Appearance) -Ulcer Cleansing Soap and Water -Foul Odor after Cleansing No -Anesthetic Used 5% Lidocaine Gel WC - Nurse 2 - General Ulcer CM Notes Start: 03/25/23 09:04 Freq: Status: Active Protocol: Activity Type Activity Date Activity User E-sign Co-sign Detail Recorded Client Recorded Date Recorded By Document 03/25/23 09:41 MW [id number] 03/25/23 09:54 MW 03/25/23 09:41 Wound Center Nurse 2 -Time 09:41 -Correct Patient Yes -Correct Side, Site, Position Yes -Correct Procedure Yes -Procedure Performed Yes -Type of Procedure Debridement -Clinical Debridement Subcutaneous -Tissue Removed Subcutaneous -Post Debridement (cm) - Length 2.0 -Post Debridement (cm) - Width 1.0 -Post Debridement (cm) - Depth 1.3 -Total Square (Post) (cm) 2.00 -Area of Debridement (cm) - Length 2.0 -Area of Debridement (cm) - Width 1.0 -Total Square (Area) (cm) 2.00 -Tunneling No -Undermining/Tunneling No -Circular Undermining No -Wound/Ulcer Outcome Not Healed -Ulcer Cleansing Rinsed/ Irrigated with Saline -Foul Odor after Cleansing No -Bioengineered Tissue No -Bleeding Controlled with Pressure -Treatment Response Procedure Tolerated Well -Offloading No -Debridement - Subq, 1st 20sq cm Yes Pain Scale: 0-10 Numeric Is Patient Pain Free? Yes - Nurse 3 - General Ulcer D/C NN Start: 03/25/23 09:04 Freq: Status: Active Protocol: Activity Type Activity Date Activity User E-sign Co-sign Detail Recorded Client Recorded Date Recorded By Document 03/25/23 09:58 RB [id number] 03/25/23 09:59 RB 03/25/23 09:58 Wound Care Center Nurse 3 #1- SACRAL -Ulcer Cleansing Rinsed/ Irrigated with Saline -Primary Dressing Applied Aquacel Extra, Mepilex Border, NonAdherent Contact Layer -Aquacel Extra 1 -Mepilex Border 2 Treatment Response Procedure Tolerated Well Pain Scale: 0-10 Numeric Is Patient Pain Free? Yes WC - Visit Discharge Discharge Condition Stable Ambulatory Status Wheelchair Transportation Private Auto Medication Reconcilliation completed & No provided to patient/care provider Clinical Summary of Care Provided Yes Charges/Coding Visit Charges Office Visits / Consults: 43900 OV L3 New Procedures Integumentary 111xxx-113xx: [id number] Maria M subq tissue 20 sq cm/< Assessment/Plan Assessment/Plan (1) Sacral decubitus ulcer, stage III: CODE(S): L89.153 - Pressure ulcer of sacral region, stage 3 (2) History of stroke: CODE(S): Z86.73 - Personal history of transient ischemic attack (TIA), and cerebral infarction without residual deficits (3) Debility: CODE(S): R53.81 - Other malaise PLAN: Plan Debridement done as documented above, procedure was well-tolerated. Aquacel extra, cover with Adaptic and foam dressing. Change daily to twice daily depending on drainage soilage. Offloading very strongly recommended. Adequate protein intake also discussed, her son voiced understanding. We will look into getting home health, patient is not very open to this but I believe she will benefit from it. Cultures taken, will review at next visit. Their questions were answered and they were advised to call with any further questions or concerns. Follow-up in a week or sooner if needed. This note was generated with [employer] dictation software. It may contain incorrect words, spelling, and punctuation that were not noted in checking the note before signing.
== END 2023-03-29 23:59 | disposition home or self-care (01) ==
LOC: WC 08:28
PROVIDERS: PCP Internal Medicine; Referring Provider Internal Medicine; Visit Provider Internal Medicine
DX: L89.153 Pressure ulcer of sacral region, stage 3 (principal); I50.9 Heart failure, unspecified; I11.0 Hypertensive heart disease with heart failure; I25.10 Atherosclerotic heart disease of native coronary artery without angina pectoris; D50.9 Iron deficiency anemia, unspecified; E78.5 Hyperlipidemia, unspecified; E03.9 Hypothyroidism, unspecified; Z79.82 Long term (current) use of aspirin; Z79.02 Long term (current) use of antithrombotics/antiplatelets; Z79.890 Hormone replacement therapy; Z79.899 Other long term (current) drug therapy; Z86.73 Personal history of transient ischemic attack (TIA), and cerebral infarction without residual deficits; Z87.891 Personal history of nicotine dependence; Z86.16 Personal history of COVID-19
CPT/HCPCS: 11042; 87070; 87075; 87205; 99203; G0463

== ENCOUNTER 2023-04-22 11:15 | Outpatient (RCR) | payer MEDICARE, MEDICAID, SELFPAY ==
[2023-03-30 00:24] VITALS: BP 95/38; PULSE 83; RESP 16; TEMP 36.4; BMI 29.2
[2023-04-01 10:58] VITALS: RESP 16; TEMP 36.6; BMI 29.2
--- NOTE | 2023-04-01 12:26 | PN.PCM_ITS ---
History of Present Illness Date of Service: 04/01/23 Chief Complaint: Non healing sacral ulcer History of Wound: Ms. Lopez is a 72-year-old who was referred to the wound center due to nonhealing sacral ulcer. Not very clear on how long it has been there but her son states that it was brought to his attention 2 to 3 weeks ago. She has been applying nystatin cream to the area. History of CVAs with minimal activity. No known history of diabetes. No chills, fever or otherwise feeling of unwell reported. Progress of Wound: No new concerns reported at this time. Some improvement noted. Objective Data Objective Data Vital Signs: Vital Signs Temp Pulse Resp BP O2 Del Method 97.9 F 83 16 95/38 L Room Air 04/01/23 10:58 03/30/23 00:24 04/01/23 10:58 03/30/23 00:24 04/01/23 10:58 Oxygen Delivery Method Room Air Weight: 170 lb Body Mass Index (BMI) 29.2 Charges/Coding Procedures Integumentary 111xxx-113xx: [id number] Maria M subq tissue 20 sq cm/< Physical Exam Const alert, oriented x3 and no apparent distress General Appearance: cooperative and comfortable HEENT normocephalic and head/scalp atraumatic Eyes EOMs intact bilaterally Neck full ROM and supple General: normal visual inspection Resp normal respiratory effort Effort and Inspection: able to speak in complete sentences Skin Wounds: wounds noted Neuro oriented x3, CN's II-XII intact bilaterally and moves all extremities Psych mental status grossly normal, thought process normal and cooperative Debridement Note Debridement Note Wound debrided: Sacral Wound Grade/Stage: Stage III Type of Debridement: Excisional debridement Anesthesia Used: 4% Lidocaine Solution Depth: Down to and including healthy tissue and in the subcutaneous layer Percentage of wound debrided: 100 Instrument Used: 3mm curette Tissue Removed: Slough and devitalized tissue Severity: Fat Layer Exposed Amount of bleeding with debridement: Mild Bleeding Controlled with: Pressure Patient tolerated procedure: Patient tolerated procedure well Post-Debridement Measurements and Additional Note: Post-Debridement Measurements/Treatment [place] - Nurse 1 - General Ulcer Assessment Start: 04/01/23 10:56 Freq: Status: Active Protocol: SILASEXT Activity Type Activity Date Activity User E-sign Co-sign Detail Recorded Client Recorded Date Recorded By Document 04/01/23 10:58 [facility] [id number] 04/01/23 11:04 [facility] 04/01/23 10:58 - Today's Visit Information Type of service Follow-up Visit (Physician/DATA INTEGRITY SPECIALIST ) Arrival Mode Wheelchair Transfer Assistance Other Transfer Assist (Other) 2 Accompanied by SON Patient Identification Verified (Name & Yes ) Patient Requires Transmission-Based No Precautions Height and Weight Body Mass Index (BMI) 29.2 BMI Classification Overweight Vital Signs Temperature (97.8 F-99.1 F) 97.9 F Temperature Source Temporal Pulse Location Monitor Respiratory Rate (12-18) 16 Respiratory rate source Observation Oxygen Delivery Method Room Air Source Monitor Position Sitting Blood Pressure Location Left Arm History Since Last Visit- (Skip if this is Patient's initial visit) Have you changed medications since your No last visit? Any new allergies or adverse reactions No Had a fall/change in ADL's that may No increase risk of falls Signs or symptoms of abuse and/or No neglect since last visit Have you been in the hospital since your No last visit? Has dressing in place as prescribed Yes Has compression in place as prescribed N/A Has offloadiing in place as prescribed N/A Experienced any changes in pain level or No management Left Footwear Regular Shoe Right Footwear Regular Shoe Pain Scale: 0-10 Numeric Is Patient Pain Free? Yes - Nurse 1 - General Ulcer Measurement Start: 04/01/23 10:56 Freq: Status: Active Protocol: Activity Type Activity Date Activity User E-sign Co-sign Detail Recorded Client Recorded Date Recorded By Document 04/01/23 10:58 [facility] [id number] 04/01/23 11:04 [facility] 04/01/23 10:58 Wound Center Nurse 1 #1- SACRAL -Combined with other wound No -Current Size (cm) - Length 1.4 -Current Size (cm) - Width 0.5 -Current Size (cm) - Depth 1 -Total Square Cm 0.70 -Date of Last Picture (Recall this 04/01/23 field) -Photo Taken Yes -Epithelialization Small 1-33% -Tunneling No -Undermining/Tunneling No -Circular Undermining No -Exudate Amt Medium -Exudate Type Serosanguineous -Wound Margin Distinct, Outline Attached -Granulation Amt Large (67-100%) -Granulation Quality Red -Slough/Fibrin No -Necrosis Amt None Present (0 %) -Texture (Tsering-wound Skin Appearance) Assessed, Scarring -Moisture (Tsering-wound Skin Appearance) Assessed -Color (Tsering-wound Skin Appearance) Assessed, Erythema -Temperature (Tsering-wound Skin No Abnormality Appearance) (Pt Warm) -Tenderness on Palpation (Tsering-wound No Skin Appearance) -Ulcer Cleansing Rinsed/ Irrigated with Saline -Foul Odor after Cleansing No -Anesthetic Used 5% Lidocaine Gel - Nurse 2 - General Ulcer CM Notes Start: 04/01/23 10:56 Freq: Status: Active Protocol: Activity Type Activity Date Activity User E-sign Co-sign Detail Recorded Client Recorded Date Recorded By Document 04/01/23 11:13 MW [id number] 04/01/23 11:21 MW 04/01/23 11:13 Wound Center Nurse 2 -Time 11:13 -Correct Patient Yes -Correct Side, Site, Position Yes -Correct Procedure Yes -Procedure Performed Yes -Type of Procedure Debridement -Clinical Debridement Subcutaneous -Tissue Removed Subcutaneous -Post Debridement (cm) - Length 1.3 -Post Debridement (cm) - Width 0.7 -Post Debridement (cm) - Depth 1.0 -Total Square (Post) (cm) 0.91 -Area of Debridement (cm) - Length 1.3 -Area of Debridement (cm) - Width 0.7 -Total Square (Area) (cm) 0.91 -Tunneling No -Undermining/Tunneling No -Circular Undermining No -Wound/Ulcer Outcome Not Healed -Ulcer Cleansing Rinsed/ Irrigated with Saline -Foul Odor after Cleansing No -Bioengineered Tissue No -Bleeding Controlled with Pressure -Treatment Response Procedure Tolerated Well -Offloading No -Debridement - Subq, 1st 20sq cm Yes Pain Scale: 0-10 Numeric Is Patient Pain Free? Yes - Nurse 3 - General Ulcer D/C NN Start: 04/01/23 10:56 Freq: Status: Active Protocol: Activity Type Activity Date Activity User E-sign Co-sign Detail Recorded Client Recorded Date Recorded By Document 04/01/23 11:30 RB [id number] 04/01/23 11:30 RB 04/01/23 11:30 Wound Care Center Nurse 3 #1- SACRAL -Ulcer Cleansing Rinsed/ Irrigated with Saline -Primary Dressing Applied Aquacel Extra, NonAdherent Contact Layer -Other Dressing abd -Aquacel Extra 1 Treatment Response Procedure Tolerated Well Pain Scale: 0-10 Numeric Is Patient Pain Free? Yes WC - Visit Discharge Discharge Condition Stable Ambulatory Status Wheelchair Transportation Private Auto Medication Reconcilliation completed & No provided to patient/care provider Clinical Summary of Care Provided Yes Assessment/Plan Assessment/Plan (1) Sacral decubitus ulcer, stage III: CODE(S): L89.153 - Pressure ulcer of sacral region, stage 3 (2) History of stroke: CODE(S): Z86.73 - Personal history of transient ischemic attack (TIA), and cerebral infarction without residual deficits (3) Debility: CODE(S): R53.81 - Other malaise PLAN: Plan Debridement done as documented above, procedure was well-tolerated. Continue Aquacel extra, cover with Adaptic and foam dressing. Change daily to twice daily depending on drainage soilage. Continue offloading and adequate protein intake. Patient now open to home health. Order signed. Their questions were answered and they were advised to call with any further questions or concerns. Follow-up in a week or sooner if needed. This note was generated with [employer] dictation software. It may contain incorrect words, spelling, and punctuation that were not noted in checking the note before signing.
[2023-04-22 11:22] VITALS: BP 120/50; PULSE 81; RESP 18; TEMP 35.7; BMI 29.2
--- NOTE | 2023-04-22 11:42 | PCM.WC.PN ---
History of Present Illness Date of Service: 04/22/23 Chief Complaint: Non healing sacral ulcer History of Wound: Ms. Lopez is a 72-year-old who was referred to the wound center due to nonhealing sacral ulcer. Not very clear on how long it has been there but her son states that it was brought to his attention 2 to 3 weeks ago. She has been applying nystatin cream to the area. History of CVAs with minimal activity. No known history of diabetes. No chills, fever or otherwise feeling of unwell reported. Progress of Wound: No new concerns at this time. Minimal change since her last visit. Objective Data Objective Data Vital Signs: Vital Signs Temp Pulse Resp BP O2 Del Method 96.2 F L 81 18 120/50 L Room Air 04/22/23 11:22 04/22/23 11:22 04/22/23 11:22 04/22/23 11:22 04/01/23 10:58 Oxygen Delivery Method Room Air Weight: 170 lb Body Mass Index (BMI) 29.2 Charges/Coding Procedures Integumentary 111xxx-113xx: [id number] Maria M subq tissue 20 sq cm/< Physical Exam Const alert, oriented x3 and no apparent distress General Appearance: cooperative and comfortable HEENT normocephalic and head/scalp atraumatic Eyes EOMs intact bilaterally Neck full ROM and supple General: normal visual inspection Resp normal respiratory effort Effort and Inspection: able to speak in complete sentences Skin Wounds: wounds noted Neuro oriented x3, CN's II-XII intact bilaterally and moves all extremities Psych mental status grossly normal, thought process normal and cooperative Debridement Note Debridement Note Wound debrided: Sacral Wound Grade/Stage: Stage III Type of Debridement: Excisional debridement Anesthesia Used: 4% Lidocaine Solution and 5% Lidocaine Gel Depth: Down to and including healthy tissue and in the subcutaneous layer Percentage of wound debrided: 100 Instrument Used: 3mm curette Tissue Removed: Slough and devitalized tissue Severity: Fat Layer Exposed Amount of bleeding with debridement: Mild Bleeding Controlled with: Pressure Patient tolerated procedure: Patient tolerated procedure well Post-Debridement Measurements and Additional Note: Post-Debridement Measurements/Treatment [place] - Nurse 1 - General Ulcer Assessment Start: 04/01/23 10:56 Freq: Status: Active Protocol: LAURIE Activity Type Activity Date Activity User E-sign Co-sign Detail Recorded Client Recorded Date Recorded By Document 04/01/23 10:58 [facility] [id number] 04/01/23 11:04 [facility] Document 04/22/23 11:22 RB [id number] 04/22/23 11:24 RB 04/01/23 04/22/23 10:58 11:22 - Today's Visit Information Type of service Follow-up Visit Follow-up Visit (Physician/INFORMATION SYSTEMS PLANNER (Physician/INFORMATION SYSTEMS PLANNER ) ) Arrival Mode Wheelchair Wheelchair Transfer Assistance Other Manual Transfer Assist (Other) 2 Accompanied by SON Patient Identification Verified (Name & Yes Yes ) Patient Requires Transmission-Based No No Precautions Height and Weight Body Mass Index (BMI) 29.2 29.2 BMI Classification Overweight Overweight Vital Signs Temperature (97.8 F-99.1 F) 97.9 F 96.2 F L Temperature Source Temporal Temporal Pulse Rate (60-100) 81 Pulse Location Monitor Monitor Respiratory Rate (12-18) 16 18 Respiratory rate source Observation Observation Oxygen Delivery Method Room Air Blood Pressure (90/60-120/80) 120/50 L Blood Pressure Mean (mm Hg) 73 Source Monitor Monitor Position Sitting Sitting Blood Pressure Location Left Arm Right Arm History Since Last Visit- (Skip if this is Patient's initial visit) Have you changed medications since your No No last visit? Any new allergies or adverse reactions No No Had a fall/change in ADL's that may No No increase risk of falls Signs or symptoms of abuse and/or No No neglect since last visit Have you been in the hospital since your No No last visit? Has dressing in place as prescribed Yes Yes Has compression in place as prescribed N/A No Has offloadiing in place as prescribed N/A No Experienced any changes in pain level or No No management Left Footwear Regular Shoe Right Footwear Regular Shoe Pain Scale: 0-10 Numeric Is Patient Pain Free? Yes Yes - Nurse 1 - General Ulcer Measurement Start: 04/01/23 10:56 Freq: Status: Active Protocol: Activity Type Activity Date Activity User E-sign Co-sign Detail Recorded Client Recorded Date Recorded By Document 04/01/23 10:58 [facility] [id number] 04/01/23 11:04 [facility] Document 04/22/23 11:22 RB [id number] 04/22/23 11:24 RB 04/01/23 04/22/23 10:58 11:22 Wound Center Nurse 1 #1- SACRAL -Combined with other wound No No -Current Size (cm) - Length 1.4 1 -Current Size (cm) - Width 0.5 0.7 -Current Size (cm) - Depth 1 1 -Total Square Cm 0.70 0.7 -Date of Last Picture (Recall this 04/01/23 field) -Photo Taken Yes -Epithelialization Small 1-33% -Tunneling No No -Undermining/Tunneling No No -Circular Undermining No No -Exudate Amt Medium Medium -Exudate Type Serosanguineous Serosanguineous -Wound Margin Distinct, Distinct, Outline Outline Attached Attached -Granulation Amt Large (67-100%) Medium (34-66%) -Granulation Quality [place] -Slough/Fibrin No Yes -Necrosis Amt None Present (0 Medium (34-66%) %) -Necrotic Tissue Type Adherent Slough -Structure Exposed N/A -Texture (Tsering-wound Skin Appearance) Assessed, Assessed Scarring -Moisture (Tsering-wound Skin Appearance) Assessed Assessed -Color (Tsering-wound Skin Appearance) Assessed, Assessed Erythema -Temperature (Tsering-wound Skin No Abnormality No Abnormality Appearance) (Pt Warm) (Pt Warm) -Tenderness on Palpation (Tsering-wound No No Skin Appearance) -Ulcer Cleansing Rinsed/ Wound Cleanser Irrigated with Saline -Foul Odor after Cleansing No No -Anesthetic Used 5% Lidocaine 5% Lidocaine Gel Gel WC - Nurse 2 - General Ulcer CM Notes Start: 04/01/23 10:56 Freq: Status: Active Protocol: Activity Type Activity Date Activity User E-sign Co-sign Detail Recorded Client Recorded Date Recorded By Document 04/01/23 11:13 MW [id number] 04/01/23 11:21 MW Document 04/22/23 11:31 MW Desktop 04/22/23 11:35 MW 04/01/23 04/22/23 11:13 11:31 Wound Center Nurse 2 #1- SACRAL -Time 11:13 11:33 -Correct Patient Yes Yes -Correct Side, Site, Position Yes Yes -Correct Procedure Yes Yes -Procedure Performed Yes Yes -Type of Procedure Debridement Debridement -Clinical Debridement Subcutaneous Subcutaneous -Tissue Removed Subcutaneous Subcutaneous -Post Debridement (cm) - Length 1.3 1.5 -Post Debridement (cm) - Width 0.7 0.7 -Post Debridement (cm) - Depth 1.0 0.8 -Total Square (Post) (cm) 0.91 1.05 -Area of Debridement (cm) - Length 1.3 1.5 -Area of Debridement (cm) - Width 0.7 0.7 -Total Square (Area) (cm) 0.91 1.05 -Tunneling No No -Undermining/Tunneling No No -Circular Undermining No No -Wound/Ulcer Outcome Not Healed Not Healed -Ulcer Cleansing Rinsed/ Rinsed/ Irrigated with Irrigated with Saline Saline -Foul Odor after Cleansing No No -Bioengineered Tissue No No -Bleeding Controlled with Pressure Pressure -Treatment Response Procedure Procedure Tolerated Well Tolerated Well -Offloading No No -Debridement - Subq, 1st 20sq cm Yes Yes Pain Scale: 0-10 Numeric Is Patient Pain Free? Yes Yes - Nurse 3 - General Ulcer D/C NN Start: 04/01/23 10:56 Freq: Status: Active Protocol: Activity Type Activity Date Activity User E-sign Co-sign Detail Recorded Client Recorded Date Recorded By Document 04/01/23 11:30 [id number] 04/01/23 11:30 04/01/23 11:30 Wound Care Center Nurse 3 #1- SACRAL -Ulcer Cleansing Rinsed/ Irrigated with Saline -Primary Dressing Applied Aquacel Extra, NonAdherent Contact Layer -Other Dressing abd -Aquacel Extra 1 Treatment Response Procedure Tolerated Well Pain Scale: 0-10 Numeric Is Patient Pain Free? Yes - Visit Discharge Discharge Condition Stable Ambulatory Status Wheelchair Transportation Private Auto Medication Reconcilliation completed & No provided to patient/care provider Clinical Summary of Care Provided Yes Assessment/Plan Assessment/Plan (1) Sacral decubitus ulcer, stage III: CODE(S): L89.153 - Pressure ulcer of sacral region, stage 3 (2) History of stroke: CODE(S): Z86.73 - Personal history of transient ischemic attack (TIA), and cerebral infarction without residual deficits (3) Debility: CODE(S): R53.81 - Other malaise PLAN: Plan Debridement done as documented above, procedure was well-tolerated. Switch to Fibrocol, cover with Adaptic and foam dressing. Change daily to twice daily depending on drainage soilage. Continue offloading and adequate protein intake. Their questions were answered and they were advised to call with any further questions or concerns. Follow-up in a week or sooner if needed. This note was generated with [employer] dictation software. It may contain incorrect words, spelling, and punctuation that were not noted in checking the note before signing.
== END 2023-04-29 23:59 | disposition home or self-care (01) ==
LOC: WC 11:15
PROVIDERS: PCP Internal Medicine; Referring Provider Internal Medicine; Visit Provider Internal Medicine
DX: L89.153 Pressure ulcer of sacral region, stage 3 (principal); R53.81 Other malaise; Z79.82 Long term (current) use of aspirin; Z79.02 Long term (current) use of antithrombotics/antiplatelets; Z79.890 Hormone replacement therapy; Z79.899 Other long term (current) drug therapy; Z86.73 Personal history of transient ischemic attack (TIA), and cerebral infarction without residual deficits
CPT/HCPCS: 11042

== ENCOUNTER 2023-05-27 11:15 | Outpatient (RCR) | payer MEDICARE, MEDICAID, SELFPAY ==
[2023-04-30 00:13] VITALS: BP 120/50; PULSE 81; RESP 18; TEMP 35.7; BMI 29.2
[2023-05-06 11:37] VITALS: BP 119/46; PULSE 74; RESP 18; TEMP 36.1; BMI 29.2
--- NOTE | 2023-05-06 12:43 | PCM.WC.PN ---
History of Present Illness Date of Service: 05/06/23 Chief Complaint: Non healing sacral ulcer History of Wound: Ms. Lopez is a 72-year-old who was referred to the wound center due to nonhealing sacral ulcer. Not very clear on how long it has been there but her son states that it was brought to his attention 2 to 3 weeks ago. She has been applying nystatin cream to the area. History of CVAs with minimal activity. No known history of diabetes. No chills, fever or otherwise feeling of unwell reported. Progress of Wound: No new concerns at this time. Now has home health. Objective Data Objective Data Vital Signs: Vital Signs Temp Pulse Resp BP 97 F L 74 18 119/46 L 05/06/23 11:37 05/06/23 11:37 05/06/23 11:37 05/06/23 11:37 Weight: 170 lb Body Mass Index (BMI) 29.2 Charges/Coding Procedures Integumentary 111xxx-113xx: 59536 Maria M subq tissue 20 sq cm/< Physical Exam Const alert, oriented x3 and no apparent distress General Appearance: cooperative and comfortable HEENT normocephalic and head/scalp atraumatic Eyes EOMs intact bilaterally Neck full ROM and supple General: normal visual inspection Resp normal respiratory effort Effort and Inspection: able to speak in complete sentences Skin Wounds: wounds noted Neuro oriented x3, CN's II-XII intact bilaterally and moves all extremities Psych mental status grossly normal, thought process normal and cooperative Debridement Note Debridement Note Wound debrided: Sacral Wound Grade/Stage: Stage III Type of Debridement: Excisional debridement Anesthesia Used: 4% Lidocaine Solution and 5% Lidocaine Gel Depth: Down to and including healthy tissue and in the subcutaneous layer Percentage of wound debrided: 100 Instrument Used: 3mm curette Tissue Removed: Slough and devitalized tissue Severity: Fat Layer Exposed Amount of bleeding with debridement: Mild Bleeding Controlled with: Pressure Patient tolerated procedure: Patient tolerated procedure well Post-Debridement Measurements and Additional Note: Post-Debridement Measurements/Treatment [place] - Nurse 1 - General Ulcer Assessment Start: 05/06/23 11:37 Freq: Status: Active Protocol: LAURIE Activity Type Activity Date Activity User E-sign Co-sign Detail Recorded Client Recorded Date Recorded By Document 05/06/23 11:37 RB [id number] 05/06/23 11:38 05/06/23 11:37 - Today's Visit Information Type of service Follow-up Visit (Physician/SUPERVISOR PLATING AND POINT ASSEMBLY ) Arrival Mode Wheelchair Transfer Assistance None Patient Identification Verified (Name & Yes ) Height and Weight Body Mass Index (BMI) 29.2 BMI Classification Overweight Vital Signs Temperature (97.8 F-99.1 F) 97 F L Temperature Source Temporal Pulse Rate (60-100) 74 Pulse Location Monitor Respiratory Rate (12-18) 18 Respiratory rate source Observation Blood Pressure (90/60-120/80) 119/46 L Blood Pressure Mean (mm Hg) 70 Source Monitor Position Semi-Fowlers Blood Pressure Location Left Arm History Since Last Visit- (Skip if this is Patient's initial visit) Have you changed medications since your No last visit? Any new allergies or adverse reactions No Had a fall/change in ADL's that may No increase risk of falls Signs or symptoms of abuse and/or No neglect since last visit Have you been in the hospital since your No last visit? Has dressing in place as prescribed Yes Has compression in place as prescribed No Has offloadiing in place as prescribed Yes Experienced any changes in pain level or No management Pain Scale: 0-10 Numeric Is Patient Pain Free? Yes - Nurse 1 - General Ulcer Measurement Start: 05/06/23 11:37 Freq: Status: Active Protocol: Activity Type Activity Date Activity User E-sign Co-sign Detail Recorded Client Recorded Date Recorded By Document 05/06/23 11:37 [id number] 05/06/23 11:38 05/06/23 11:37 Wound Center Nurse 1 #1- SACRAL -Combined with other wound No -Current Size (cm) - Length 1 -Current Size (cm) - Width 0.5 -Current Size (cm) - Depth 0.1 -Total Square Cm 0.5 -Photo Taken Yes -Tunneling No -Undermining/Tunneling No -Circular Undermining No -Exudate Amt Medium -Exudate Type Serosanguineous -Wound Margin Distinct, Outline Attached -Granulation Amt Medium (34-66%) -Granulation Quality [place] -Slough/Fibrin Yes -Necrosis Amt Medium (34-66%) -Necrotic Tissue Type Adherent Slough -Structure Exposed N/A -Texture (Tsering-wound Skin Appearance) Assessed -Moisture (Tsering-wound Skin Appearance) Assessed -Color (Tsering-wound Skin Appearance) Assessed -Temperature (Tsering-wound Skin No Abnormality Appearance) (Pt Warm) -Tenderness on Palpation (Tsering-wound No Skin Appearance) -Ulcer Cleansing Wound Cleanser -Foul Odor after Cleansing No -Anesthetic Used 5% Lidocaine Gel - Nurse 2 - General Ulcer CM Notes Start: 05/06/23 11:37 Freq: Status: Active Protocol: Activity Type Activity Date Activity User E-sign Co-sign Detail Recorded Client Recorded Date Recorded By Document 05/06/23 11:43 [id number] 05/06/23 11:45 05/06/23 11:43 Wound Center Nurse 2 -Time 11:43 -Correct Patient Yes -Correct Side, Site, Position Yes -Correct Procedure Yes -Procedure Performed Yes -Type of Procedure Debridement -Clinical Debridement Subcutaneous -Tissue Removed Subcutaneous -Post Debridement (cm) - Length 1.5 -Post Debridement (cm) - Width 0.5 -Post Debridement (cm) - Depth 0.8 -Total Square (Post) (cm) 0.75 -Area of Debridement (cm) - Length 1.5 -Area of Debridement (cm) - Width 0.5 -Total Square (Area) (cm) 0.75 -Tunneling No -Undermining/Tunneling No -Circular Undermining No -Wound/Ulcer Outcome Not Healed -Ulcer Cleansing Rinsed/ Irrigated with Saline -Foul Odor after Cleansing No -Bioengineered Tissue No -Bleeding Controlled with Pressure -Treatment Response Procedure Tolerated Well -Offloading No -Pressure Reduction Wheelchair cushion -Debridement - Subq, 1st 20sq cm Yes Pain Scale: 0-10 Numeric Is Patient Pain Free? Yes - Nurse 3 - General Ulcer D/C NN Start: 05/06/23 11:37 Freq: Status: Active Protocol: Activity Type Activity Date Activity User E-sign Co-sign Detail Recorded Client Recorded Date Recorded By Document 05/06/23 11:53 [id number] 05/06/23 11:54 05/06/23 11:53 Wound Care Center Nurse 3 #1- SACRAL -Ulcer Cleansing Rinsed/ Irrigated with Saline -Foul Odor after Cleansing No -Primary Dressing Applied Fibracol Plus 4x4,Mepilex Border -Fibracol Plus 4x4 1 -Mepilex Border 1 Pain Scale: 0-10 Numeric Is Patient Pain Free? Yes WC - Visit Discharge Discharge Condition Stable Ambulatory Status Ambulatory, Wheelchair Transportation Private Auto Accompanied by son Medication Reconcilliation completed & Yes provided to patient/care provider Clinical Summary of Care Provided Yes Assessment/Plan Assessment/Plan (1) Sacral decubitus ulcer, stage III: CODE(S): L89.153 - Pressure ulcer of sacral region, stage 3 (2) History of stroke: CODE(S): Z86.73 - Personal history of transient ischemic attack (TIA), and cerebral infarction without residual deficits (3) Debility: CODE(S): R53.81 - Other malaise PLAN: Plan Debridement done as documented above, procedure was well-tolerated. Continue Fibrocol, cover with Adaptic and foam dressing. Change daily to twice daily depending on drainage soilage. Continue offloading and adequate protein intake. Their questions were answered and they were advised to call with any further questions or concerns. Follow-up in a week or sooner if needed. This note was generated with [employer] dictation software. It may contain incorrect words, spelling, and punctuation that were not noted in checking the note before signing.
[2023-05-20 10:56] VITALS: BP 100/40; PULSE 81; RESP 18; TEMP 36.2; BMI 29.2
--- NOTE | 2023-05-20 11:12 | PCM.WC.PN ---
History of Present Illness Date of Service: 05/20/23 Chief Complaint: Non healing sacral ulcer History of Wound: Ms. Lopez is a 72-year-old who was referred to the wound center due to nonhealing sacral ulcer. Not very clear on how long it has been there but her son states that it was brought to his attention 2 to 3 weeks ago. She has been applying nystatin cream to the area. History of CVAs with minimal activity. No known history of diabetes. No chills, fever or otherwise feeling of unwell reported. Progress of Wound: No new concerns at this time. Stable. Objective Data Objective Data Vital Signs: Vital Signs Temp Pulse Resp BP 97.1 F L 81 18 100/40 L 05/20/23 10:56 05/20/23 10:56 05/20/23 10:56 05/20/23 10:56 Weight: 170 lb Body Mass Index (BMI) 29.2 Charges/Coding Procedures Integumentary 111xxx-113xx: 78025 Maria M subq tissue 20 sq cm/< Physical Exam Const alert, oriented x3 and no apparent distress General Appearance: cooperative and comfortable HEENT normocephalic and head/scalp atraumatic Eyes EOMs intact bilaterally Neck full ROM and supple General: normal visual inspection Resp normal respiratory effort Effort and Inspection: able to speak in complete sentences Skin Wounds: wounds noted Neuro oriented x3, CN's II-XII intact bilaterally and moves all extremities Psych mental status grossly normal, thought process normal and cooperative Debridement Note Debridement Note Wound debrided: Sacral Wound Grade/Stage: Stage III Type of Debridement: Excisional debridement Anesthesia Used: 5% Lidocaine Gel Depth: Down to and including healthy tissue and in the subcutaneous layer Percentage of wound debrided: 100 Instrument Used: 5mm curette Tissue Removed: Slough and devitalized tissue Severity: Fat Layer Exposed Amount of bleeding with debridement: Mild Bleeding Controlled with: Pressure Patient tolerated procedure: Patient tolerated procedure well Post-Debridement Measurements and Additional Note: Post-Debridement Measurements/Treatment WC - Nurse 1 - General Ulcer Assessment Start: 05/06/23 11:37 Freq: Status: Active Protocol: [email or web address].[email or web address] Activity Type Activity Date Activity User E-sign Co-sign Detail Recorded Client Recorded Date Recorded By Document 05/06/23 11:37 RB [id number] 05/06/23 11:38 RB Document 05/20/23 10:56 Desktop 05/20/23 11:00 05/06/23 05/20/23 11:37 10:56 - Today's Visit Information Type of service Follow-up Visit Follow-up Visit (Physician/INTERNATIONAL ORGANIZER (Physician/INTERNATIONAL ORGANIZER ) ) Arrival Mode Wheelchair Wheelchair Transfer Assistance None Manual Patient Identification Verified (Name & Yes Yes ) Patient Requires Transmission-Based No Precautions Height and Weight Body Mass Index (BMI) 29.2 29.2 BMI Classification Overweight Overweight Vital Signs Temperature (97.8 F-99.1 F) 97 F L 97.1 F L Temperature Source Temporal Temporal Pulse Rate (60-100) 74 81 Pulse Location Monitor Monitor Respiratory Rate (12-18) 18 18 Respiratory rate source Observation Observation Blood Pressure (90/60-120/80) 119/46 L 100/40 L Blood Pressure Mean (mm Hg) 70 60 Source Monitor Monitor Position Semi-Fowlers Semi-Fowlers Blood Pressure Location Left Arm Left Arm History Since Last Visit- (Skip if this is Patient's initial visit) Have you changed medications since your No No last visit? Any new allergies or adverse reactions No No Had a fall/change in ADL's that may No No increase risk of falls Signs or symptoms of abuse and/or No No neglect since last visit Have you been in the hospital since your No No last visit? Has dressing in place as prescribed Yes Yes Has compression in place as prescribed No No Has offloadiing in place as prescribed Yes No Experienced any changes in pain level or No No management Pain Scale: 0-10 Numeric Is Patient Pain Free? Yes Yes - Nurse 1 - General Ulcer Measurement Start: 05/06/23 11:37 Freq: Status: Active Protocol: Activity Type Activity Date Activity User E-sign Co-sign Detail Recorded Client Recorded Date Recorded By Document 05/06/23 11:37 [id number] 05/06/23 11:38 Document 05/20/23 10:56 Desktop 05/20/23 11:00 05/06/23 05/20/23 11:37 10:56 Wound Center Nurse 1 #1- SACRAL -Combined with other wound No No -Current Size (cm) - Length 1 0.9 -Current Size (cm) - Width 0.5 0.5 -Current Size (cm) - Depth 0.1 1 -Total Square Cm 0.5 0.45 -Photo Taken Yes -Tunneling No No -Undermining/Tunneling No No -Circular Undermining No No -Exudate Amt Medium Medium -Exudate Type Serosanguineous Serosanguineous -Wound Margin Distinct, Distinct, Outline Outline Attached Attached -Granulation Amt Medium (34-66%) Medium (34-66%) -Granulation Quality [place] -Slough/Fibrin Yes Yes -Necrosis Amt Medium (34-66%) Small (1-33%) -Necrotic Tissue Type Adherent Slough Adherent Slough -Structure Exposed N/A N/A -Texture (Tsering-wound Skin Appearance) Assessed Assessed, Scarring -Moisture (Tsering-wound Skin Appearance) Assessed Assessed -Color (Tsering-wound Skin Appearance) Assessed Assessed -Temperature (Tsering-wound Skin No Abnormality No Abnormality Appearance) (Pt Warm) (Pt Warm) -Tenderness on Palpation (Tsering-wound No No Skin Appearance) -Ulcer Cleansing Wound Cleanser Wound Cleanser -Foul Odor after Cleansing No No -Anesthetic Used 5% Lidocaine 5% Lidocaine Gel Gel WC - Nurse 2 - General Ulcer CM Notes Start: 05/06/23 11:37 Freq: Status: Active Protocol: Activity Type Activity Date Activity User E-sign Co-sign Detail Recorded Client Recorded Date Recorded By Document 05/06/23 11:43 [id number] 05/06/23 11:45 Document 05/20/23 10:56 Desktop 05/20/23 11:00 Document 05/20/23 11:03 Desktop 05/20/23 11:08 05/06/23 05/20/23 05/20/23 11:43 10:56 11:03 Wound Center Nurse 2 #1- SACRAL -Time 11:43 11:04 -Correct Patient Yes Yes -Correct Side, Site, Position Yes Yes -Correct Procedure Yes Yes -Procedure Performed Yes Yes -Type of Procedure Debridement Debridement -Clinical Debridement Subcutaneous Subcutaneous -Tissue Removed Subcutaneous Subcutaneous -Post Debridement (cm) - Length 1.5 1.1 -Post Debridement (cm) - Width 0.5 0.4 -Post Debridement (cm) - Depth 0.8 1.0 -Total Square (Post) (cm) 0.75 0.44 -Area of Debridement (cm) - Length 1.5 1.1 -Area of Debridement (cm) - Width 0.5 0.4 -Total Square (Area) (cm) 0.75 0.44 -Tunneling No No -Undermining/Tunneling No No -Circular Undermining No No -Wound/Ulcer Outcome Not Healed Not Healed -Ulcer Cleansing Rinsed/ Rinsed/ Irrigated with Irrigated with Saline Saline -Foul Odor after Cleansing No No -Bioengineered Tissue No No -Bleeding Controlled with Pressure Pressure -Treatment Response Procedure Procedure Tolerated Well Tolerated Well -Offloading No No -Pressure Reduction Wheelchair cushion -Debridement - Subq, 1st 20sq cm Yes Yes Pain Scale: 0-10 Numeric Is Patient Pain Free? Yes Yes Yes - Nurse 3 - General Ulcer D/C NN Start: 05/06/23 11:37 Freq: Status: Active Protocol: Activity Type Activity Date Activity User E-sign Co-sign Detail Recorded Client Recorded Date Recorded By Document 05/06/23 11:53 [id number] 05/06/23 11:54 Document 05/20/23 11:10 Desktop 05/20/23 11:11 05/06/23 05/20/23 11:53 11:10 Wound Care Center Nurse 3 #1- SACRAL -Ulcer Cleansing Rinsed/ Rinsed/ Irrigated with Irrigated with Saline Saline -Foul Odor after Cleansing No No -Primary Dressing Applied Fibracol Plus Mepilex Border, 4x4,Mepilex Promogran Border -Fibracol Plus 4x4 1 -Mepilex Border 1 1 -Promogran 1 Pain Scale: 0-10 Numeric Is Patient Pain Free? Yes Yes - Visit Discharge Discharge Condition Stable Stable Ambulatory Status Ambulatory, Wheelchair Wheelchair Transportation Private Auto Private Auto Accompanied by son son Medication Reconcilliation completed & Yes Yes provided to patient/care provider Clinical Summary of Care Provided Yes Yes Assessment/Plan Assessment/Plan (1) Sacral decubitus ulcer, stage III: CODE(S): L89.153 - Pressure ulcer of sacral region, stage 3 (2) History of stroke: CODE(S): Z86.73 - Personal history of transient ischemic attack (TIA), and cerebral infarction without residual deficits (3) Debility: CODE(S): R53.81 - Other malaise PLAN: Plan Debridement done as documented above, procedure was well-tolerated. Minimal change. Switch to Promogran, cover with Adaptic and foam dressing. Change daily to twice daily depending on drainage /soilage. Continue offloading and adequate protein intake. Their questions were answered and they were advised to call with any further questions or concerns. Follow-up in a week or sooner if needed. This note was generated with [employer] dictation software. It may contain incorrect words, spelling, and punctuation that were not noted in checking the note before signing.
[2023-05-27 11:39] VITALS: PULSE 71; RESP 16; TEMP 35.9; BMI 29.2
--- NOTE | 2023-05-27 13:51 | PCM.WC.PN ---
History of Present Illness Date of Service: 05/27/23 Chief Complaint: Non healing sacral ulcer History of Wound: Ms. Lopez is a 72-year-old who was referred to the wound center due to nonhealing sacral ulcer. Not very clear on how long it has been there but her son states that it was brought to his attention 2 to 3 weeks ago. She has been applying nystatin cream to the area. History of CVAs with minimal activity. No known history of diabetes. No chills, fever or otherwise feeling of unwell reported. Progress of Wound: No new concerns at this time. Stable. Objective Data Objective Data Vital Signs: Vital Signs Temp Pulse Resp BP O2 Del Method 96.7 F L 71 16 100/40 L Room Air 05/27/23 11:39 05/27/23 11:39 05/27/23 11:39 05/20/23 10:56 05/27/23 11:39 Oxygen Delivery Method Room Air Weight: 170 lb Body Mass Index (BMI) 29.2 Charges/Coding Procedures Integumentary 111xxx-113xx: 19956 Maria M subq tissue 20 sq cm/< Physical Exam Const alert, oriented x3 and no apparent distress General Appearance: cooperative and comfortable HEENT normocephalic and head/scalp atraumatic Eyes EOMs intact bilaterally Neck full ROM and supple General: normal visual inspection Resp normal respiratory effort Effort and Inspection: able to speak in complete sentences Skin Wounds: wounds noted Neuro oriented x3, CN's II-XII intact bilaterally and moves all extremities Psych mental status grossly normal, thought process normal and cooperative Debridement Note Debridement Note Wound debrided: Sacral Wound Grade/Stage: Stage III Type of Debridement: Excisional debridement Anesthesia Used: 5% Lidocaine Gel Depth: Down to and including healthy tissue and in the subcutaneous layer Percentage of wound debrided: 100 Instrument Used: 5mm curette Tissue Removed: Slough and devitalized tissue Severity: Fat Layer Exposed Amount of bleeding with debridement: Mild Bleeding Controlled with: Pressure Patient tolerated procedure: Patient tolerated procedure well Post-Debridement Measurements and Additional Note: Post-Debridement Measurements/Treatment [place]ON - Nurse 1 - General Ulcer Assessment Start: 05/06/23 11:37 Freq: Status: Active Protocol: LAURIE Activity Type Activity Date Activity User E-sign Co-sign Detail Recorded Client Recorded Date Recorded By Document 05/06/23 11:37 RB [id number] 05/06/23 11:38 RB Document 05/20/23 10:56 JF Desktop 05/20/23 11:00 JF Document 05/27/23 11:39 BMF Desktop 05/27/23 11:45 BMF 05/06/23 05/20/23 05/27/23 11:37 10:56 11:39 WC - Today's Visit Information Type of service Follow-up Visit Follow-up Visit Follow-up Visit (Physician/GASKET FORMER (Physician/GASKET FORMER (Physician/GASKET FORMER ) ) ) Arrival Mode Wheelchair Wheelchair Wheelchair Transfer Assistance None Manual Other Transfer Assist (Other) 1 Accompanied by son Patient Identification Verified (Name & Yes Yes Yes ) Patient Requires Transmission-Based No No Precautions Height and Weight Body Mass Index (BMI) 29.2 29.2 29.2 BMI Classification Overweight Overweight Overweight Vital Signs Temperature (97.8 F-99.1 F) 97 F L 97.1 F L 96.7 F L Temperature Source Temporal Temporal Temporal Pulse Rate (60-100) 74 81 71 Pulse Location Monitor Monitor Monitor Respiratory Rate (12-18) 18 18 16 Respiratory rate source Observation Observation Observation Oxygen Delivery Method Room Air Blood Pressure (90/60-120/80) 119/46 L 100/40 L Blood Pressure Mean (mm Hg) 70 60 Source Monitor Monitor Position Semi-Fowlers Semi-Fowlers Blood Pressure Location Left Arm Left Arm History Since Last Visit- (Skip if this is Patient's initial visit) Have you changed medications since your No No No last visit? Any new allergies or adverse reactions No No No Had a fall/change in ADL's that may No No No increase risk of falls Signs or symptoms of abuse and/or No No No neglect since last visit Have you been in the hospital since your No No No last visit? Has dressing in place as prescribed Yes Yes Yes Has compression in place as prescribed No No N/A Has offloadiing in place as prescribed Yes No N/A Experienced any changes in pain level or No No No management Left Footwear Regular Shoe Right Footwear Regular Shoe Pain Scale: 0-10 Numeric Is Patient Pain Free? Yes Yes Yes - Nurse 1 - General Ulcer Measurement Start: 05/06/23 11:37 Freq: Status: Active Protocol: Activity Type Activity Date Activity User E-sign Co-sign Detail Recorded Client Recorded Date Recorded By Document 05/06/23 11:37 [id number] 05/06/23 11:38 RB Document 05/20/23 10:56 Desktop 05/20/23 11:00 Document 05/27/23 11:39 [facility] Desktop 05/27/23 11:45 [facility] 05/06/23 05/20/23 05/27/23 11:37 10:56 11:39 Wound Center Nurse 1 #1- SACRAL -Combined with other wound No No No -Current Size (cm) - Length 1 0.9 1 -Current Size (cm) - Width 0.5 0.5 0.5 -Current Size (cm) - Depth 0.1 1 0.9 -Total Square Cm 0.5 0.45 0.5 -Photo Taken Yes No -Epithelialization Small 1-33% -Tunneling No No No -Undermining/Tunneling No No No -Circular Undermining No No No -Exudate Amt Medium Medium Medium -Exudate Type Serosanguineous Serosanguineous Serosanguineous -Wound Margin Distinct, Distinct, Distinct, Outline Outline Outline Attached Attached Attached -Granulation Amt Medium (34-66%) Medium (34-66%) Large (67-100%) -Granulation Quality [place] -Slough/Fibrin Yes Yes No -Necrosis Amt Medium (34-66%) Small (1-33%) None Present (0 %) -Necrotic Tissue Type Adherent Slough Adherent Slough -Structure Exposed N/A N/A -Texture (Tsering-wound Skin Appearance) Assessed Assessed, Assessed, Scarring Scarring -Moisture (Tsering-wound Skin Appearance) Assessed Assessed Assessed -Color (Tsering-wound Skin Appearance) Assessed Assessed Assessed -Temperature (Tsering-wound Skin No Abnormality No Abnormality No Abnormality Appearance) (Pt Warm) (Pt Warm) (Pt Warm) -Tenderness on Palpation (Tsering-wound No No No Skin Appearance) -Ulcer Cleansing Wound Cleanser Wound Cleanser Rinsed/ Irrigated with Saline -Foul Odor after Cleansing No No No -Anesthetic Used 5% Lidocaine 5% Lidocaine 5% Lidocaine Gel Gel Gel WC - Nurse 2 - General Ulcer CM Notes Start: 05/06/23 11:37 Freq: Status: Active Protocol: Activity Type Activity Date Activity User E-sign Co-sign Detail Recorded Client Recorded Date Recorded By Document 05/06/23 11:43 [id number] 05/06/23 11:45 Document 05/20/23 10:56 Desktop 05/20/23 11:00 Document 05/20/23 11:03 Desktop 05/20/23 11:08 Document 05/27/23 11:49 Desktop 05/27/23 11:54 05/06/23 05/20/23 05/20/23 11:43 10:56 11:03 Wound Center Nurse 2 #1- SACRAL -Time 11:43 11:04 -Correct Patient Yes Yes -Correct Side, Site, Position Yes Yes -Correct Procedure Yes Yes -Procedure Performed Yes Yes -Type of Procedure Debridement Debridement -Clinical Debridement Subcutaneous Subcutaneous -Tissue Removed Subcutaneous Subcutaneous -Post Debridement (cm) - Length 1.5 1.1 -Post Debridement (cm) - Width 0.5 0.4 -Post Debridement (cm) - Depth 0.8 1.0 -Total Square (Post) (cm) 0.75 0.44 -Area of Debridement (cm) - Length 1.5 1.1 -Area of Debridement (cm) - Width 0.5 0.4 -Total Square (Area) (cm) 0.75 0.44 -Tunneling No No -Undermining/Tunneling No No -Circular Undermining No No -Wound/Ulcer Outcome Not Healed Not Healed -Ulcer Cleansing Rinsed/ Rinsed/ Irrigated with Irrigated with Saline Saline -Foul Odor after Cleansing No No -Bioengineered Tissue No No -Bleeding Controlled with Pressure Pressure -Treatment Response Procedure Procedure Tolerated Well Tolerated Well -Offloading No No -Pressure Reduction Wheelchair cushion -Debridement - Subq, 1st 20sq cm Yes Yes Pain Scale: 0-10 Numeric Is Patient Pain Free? Yes Yes Yes 05/27/23 11:49 Wound Center Nurse 2 #1- SACRAL -Time 11:49 -Correct Patient Yes -Correct Side, Site, Position Yes -Correct Procedure Yes -Procedure Performed Yes -Type of Procedure Debridement -Clinical Debridement Subcutaneous -Tissue Removed Subcutaneous -Post Debridement (cm) - Length 1.1 -Post Debridement (cm) - Width 0.4 -Post Debridement (cm) - Depth 1.6 -Total Square (Post) (cm) 0.44 -Area of Debridement (cm) - Length 1.1 -Area of Debridement (cm) - Width 0.4 -Total Square (Area) (cm) 0.44 -Tunneling No -Undermining/Tunneling No -Circular Undermining No -Wound/Ulcer Outcome Not Healed -Ulcer Cleansing Rinsed/ Irrigated with Saline -Foul Odor after Cleansing No -Bioengineered Tissue No -Bleeding Controlled with Pressure -Treatment Response Procedure Tolerated Well -Offloading No -Pressure Reduction -Debridement - Subq, 1st 20sq cm Yes Pain Scale: 0-10 Numeric Is Patient Pain Free? Yes - Nurse 3 - General Ulcer D/C NN Start: 05/06/23 11:37 Freq: Status: Active Protocol: Activity Type Activity Date Activity User E-sign Co-sign Detail Recorded Client Recorded Date Recorded By Document 05/06/23 11:53 [id number] 05/06/23 11:54 Document 05/20/23 11:10 Desktop 05/20/23 11:11 Edit Result 05/20/23 11:10 JF (1) Desktop 05/20/23 11:12 Document 05/27/23 11:58 RB Desktop 05/27/23 11:59 RB (1) #1- SACRAL - Promogran 1 => 2 05/06/23 05/20/23 05/27/23 11:53 11:10 11:58 Wound Care Center Nurse 3 #1- SACRAL -Ulcer Cleansing Rinsed/ Rinsed/ Wound Cleanser Irrigated with Irrigated with Saline Saline -Foul Odor after Cleansing No No -Primary Dressing Applied Fibracol Plus Mepilex Border, Promogran 4x4,Mepilex Promogran Border -Primary Dressing Covered/Secured with Dry Gauze, Secured with Tape -Fibracol Plus 4x4 1 -Mepilex Border 1 1 -Promogran 2 1 Treatment Response Procedure Tolerated Well Pain Scale: 0-10 Numeric Is Patient Pain Free? Yes Yes Yes - Visit Discharge Discharge Condition Stable Stable Stable Ambulatory Status Ambulatory, Wheelchair Wheelchair Wheelchair Transportation Private Auto Private Auto Private Auto Accompanied by son son Medication Reconcilliation completed & Yes Yes No provided to patient/care provider Clinical Summary of Care Provided Yes Yes Yes Assessment/Plan Assessment/Plan (1) Sacral decubitus ulcer, stage III: CODE(S): L89.153 - Pressure ulcer of sacral region, stage 3 (2) History of stroke: CODE(S): Z86.73 - Personal history of transient ischemic attack (TIA), and cerebral infarction without residual deficits (3) Debility: CODE(S): R53.81 - Other malaise PLAN: Plan Debridement done as documented above, procedure was well-tolerated. Stable. Continue Promogran, cover with Adaptic and foam dressing. Change daily to twice daily depending on drainage /soilage. Continue offloading and adequate protein intake. Their questions were answered and they were advised to call with any further questions or concerns. Follow-up in a week or sooner if needed. This note was generated with [employer] dictation software. It may contain incorrect words, spelling, and punctuation that were not noted in checking the note before signing.
== END 2023-05-29 23:59 | disposition home or self-care (01) ==
LOC: WC 11:15
PROVIDERS: PCP Internal Medicine; Referring Provider Internal Medicine; Visit Provider Internal Medicine
DX: L89.153 Pressure ulcer of sacral region, stage 3 (principal); R53.81 Other malaise; Z79.82 Long term (current) use of aspirin; Z79.02 Long term (current) use of antithrombotics/antiplatelets; Z79.890 Hormone replacement therapy; Z79.899 Other long term (current) drug therapy; Z86.73 Personal history of transient ischemic attack (TIA), and cerebral infarction without residual deficits
CPT/HCPCS: 11042

== ENCOUNTER 2023-06-10 10:56 | Outpatient (RCR) | payer MEDICARE, MEDICAID, SELFPAY ==
[2023-05-30 00:35] VITALS: BP 100/40; PULSE 71; RESP 16; TEMP 35.9; BMI 29.2
[2023-06-10 11:27] VITALS: BP 126/48; PULSE 80; RESP 16; TEMP 36.4; BMI 29.2
--- NOTE | 2023-06-10 13:18 | PN.PCM_ITS ---
History of Present Illness Date of Service: 06/10/23 Chief Complaint: Non healing sacral ulcer History of Wound: Ms. Lopez is a 72-year-old who was referred to the wound center due to nonhealing sacral ulcer. Not very clear on how long it has been there but her son states that it was brought to his attention 2 to 3 weeks ago. She has been applying nystatin cream to the area. History of CVAs with minimal activity. No known history of diabetes. No chills, fever or otherwise feeling of unwell reported. Progress of Wound: Some improvement noted. No new concerns at this time. Objective Data Objective Data Vital Signs: Vital Signs Temp Pulse Resp BP 97.5 F L 80 16 126/48 H 06/10/23 11:27 06/10/23 11:27 06/10/23 11:27 06/10/23 11:27 Weight: 170 lb Body Mass Index (BMI) 29.2 Charges/Coding Procedures Integumentary 111xxx-113xx: [id number] Maria M subq tissue 20 sq cm/< Physical Exam Const alert, oriented x3 and no apparent distress General Appearance: cooperative and comfortable HEENT normocephalic and head/scalp atraumatic Eyes EOMs intact bilaterally Neck full ROM and supple General: normal visual inspection Resp normal respiratory effort Effort and Inspection: able to speak in complete sentences Skin Wounds: wounds noted Neuro oriented x3, CN's II-XII intact bilaterally and moves all extremities Psych mental status grossly normal, thought process normal and cooperative Debridement Note Debridement Note Wound debrided: Sacral Wound Grade/Stage: Stage III Type of Debridement: Excisional debridement Anesthesia Used: 5% Lidocaine Gel Depth: Down to and including healthy tissue and in the subcutaneous layer Percentage of wound debrided: 100 Instrument Used: 5mm curette Tissue Removed: Slough and devitalized tissue Severity: Fat Layer Exposed Amount of bleeding with debridement: Mild Bleeding Controlled with: Pressure Patient tolerated procedure: Patient tolerated procedure well Post-Debridement Measurements and Additional Note: Post-Debridement Measurements/Treatment - Nurse 1 - General Ulcer Assessment Start: 06/10/23 11:27 Freq: Status: Active Protocol: LAURIE Activity Type Activity Date Activity User E-sign Co-sign Detail Recorded Client Recorded Date Recorded By Document 06/10/23 11:27 Desktop 06/10/23 11:29 ANDRES 06/10/23 11:27 - Today's Visit Information Type of service Follow-up Visit (Physician/ENGINEERING LIBRARIAN ) Arrival Mode Ambulatory, Wheelchair Patient Identification Verified (Name & Yes ) Patient Requires Transmission-Based No Precautions Height and Weight Body Mass Index (BMI) 29.2 BMI Classification Overweight Vital Signs Temperature (97.8 F-99.1 F) 97.5 F L Temperature Source Temporal Pulse Rate (60-100) 80 Pulse Location Monitor Respiratory Rate (12-18) 16 Respiratory rate source Observation Blood Pressure (90/60-120/80) 126/48 H Blood Pressure Mean (mm Hg) 74 Source Monitor Position Semi-Fowlers Blood Pressure Location Left Arm History Since Last Visit- (Skip if this is Patient's initial visit) Have you changed medications since your No last visit? Any new allergies or adverse reactions No Had a fall/change in ADL's that may No increase risk of falls Signs or symptoms of abuse and/or No neglect since last visit Have you been in the hospital since your No last visit? Has dressing in place as prescribed Yes Has compression in place as prescribed N/A Has offloadiing in place as prescribed Yes Experienced any changes in pain level or No management Left Footwear Regular Shoe Right Footwear Regular Shoe Pain Scale: 0-10 Numeric Is Patient Pain Free? Yes - Nurse 1 - General Ulcer Measurement Start: 06/10/23 11:27 Freq: Status: Active Protocol: Activity Type Activity Date Activity User E-sign Co-sign Detail Recorded Client Recorded Date Recorded By Document 06/10/23 11:27 Desktop 06/10/23 11:29 06/10/23 11:27 Wound Center Nurse 1 #1- SACRAL -Combined with other wound No -Current Size (cm) - Length 1.0 -Current Size (cm) - Width 0.8 -Current Size (cm) - Depth 1.0 -Total Square Cm 0.80 -Photo Taken No -Epithelialization None Present -Tunneling No -Undermining/Tunneling No -Circular Undermining No -Exudate Amt Small -Exudate Type Serosanguineous -Wound Margin Flat & Intact -Granulation Amt Large (67-100%) -Granulation Quality Red -Slough/Fibrin Yes -Necrosis Amt Small (1-33%) -Necrotic Tissue Type Adherent Slough -Structure Exposed N/A -Texture (Tsering-wound Skin Appearance) Assessed -Moisture (Tsering-wound Skin Appearance) Assessed,Dry/ Scaly -Color (Tsering-wound Skin Appearance) Assessed -Temperature (Tsering-wound Skin No Abnormality Appearance) (Pt Warm) -Tenderness on Palpation (Tsering-wound No Skin Appearance) -Ulcer Cleansing Rinsed/ Irrigated with Saline -Foul Odor after Cleansing No -Anesthetic Used 5% Lidocaine Gel Lower Limb Edema Present NA WC - Nurse 2 - General Ulcer CM Notes Start: 06/10/23 11:27 Freq: Status: Active Protocol: Activity Type Activity Date Activity User E-sign Co-sign Detail Recorded Client Recorded Date Recorded By Document 06/10/23 11:49 GM Desktop 06/10/23 11:52 06/10/23 11:49 Wound Center Nurse 2 #1- SACRAL -Time 11:49 -Correct Patient Yes -Correct Side, Site, Position Yes -Correct Procedure Yes -Procedure Performed Yes -Type of Procedure Debridement -Clinical Debridement Subcutaneous -Tissue Removed Subcutaneous -Post Debridement (cm) - Length 1 -Post Debridement (cm) - Width 0.3 -Post Debridement (cm) - Depth 0.7 -Total Square (Post) (cm) 0.3 -Area of Debridement (cm) - Length 1 -Area of Debridement (cm) - Width 0.3 -Total Square (Area) (cm) 0.3 -Tunneling No -Undermining/Tunneling No -Circular Undermining No -Wound/Ulcer Outcome Not Healed -Ulcer Cleansing Rinsed/ Irrigated with Saline -Foul Odor after Cleansing No -Bioengineered Tissue No -Bleeding Controlled with Pressure -Treatment Response Procedure Tolerated Well -Debridement - Open, 1st 20sq cm No -Debridement - Subq, 1st 20sq cm Yes Pain Scale: 0-10 Numeric Is Patient Pain Free? Yes Assessment/Plan Assessment/Plan (1) Sacral decubitus ulcer, stage III: CODE(S): L89.153 - Pressure ulcer of sacral region, stage 3 (2) History of stroke: CODE(S): Z86.73 - Personal history of transient ischemic attack (TIA), and cerebral infarction without residual deficits (3) Debility: CODE(S): R53.81 - Other malaise PLAN: Plan Debridement done as documented above, procedure was well-tolerated. Some improve ment noted. Continue Promogran, cover with Adaptic and foam dressing. Change daily to twice daily depending on drainage /soilage. Continue offloading and adequate protein intake. Their questions were answered and they were advised to call with any further questions or concerns. Follow-up in 2 weeks or sooner if needed. This note was generated with [employer] software. It may contain incorrect words, spelling, and punctuation that were not noted in checking the note before signing.
== END 2023-06-29 23:59 | disposition home or self-care (01) ==
LOC: WC 10:56
PROVIDERS: PCP Internal Medicine; Referring Provider Internal Medicine; Visit Provider Internal Medicine
DX: L89.153 Pressure ulcer of sacral region, stage 3 (principal); R53.81 Other malaise; Z79.82 Long term (current) use of aspirin; Z79.02 Long term (current) use of antithrombotics/antiplatelets; Z79.890 Hormone replacement therapy; Z79.899 Other long term (current) drug therapy; Z86.73 Personal history of transient ischemic attack (TIA), and cerebral infarction without residual deficits
CPT/HCPCS: 11042

== ENCOUNTER 2023-07-01 10:49 | Outpatient (RCR) | payer MEDICARE, MEDICAID, SELFPAY ==
[2023-06-30 00:47] VITALS: BP 126/48; PULSE 80; RESP 16; TEMP 36.4; BMI 29.2
[2023-07-01 11:00] VITALS: BP 104/44; PULSE 81; RESP 20; TEMP 35.7; BMI 29.2
--- NOTE | 2023-07-01 12:22 | PCM.WC.PN ---
History of Present Illness Date of Service: 07/01/23 Chief Complaint: Non healing sacral ulcer History of Wound: Ms. Lopez is a 72-year-old who was referred to the wound center due to nonhealing sacral ulcer. Not very clear on how long it has been there but her son states that it was brought to his attention 2 to 3 weeks ago. She has been applying nystatin cream to the area. History of CVAs with minimal activity. No known history of diabetes. No chills, fever or otherwise feeling of unwell reported. Progress of Wound: Patient denies any concerns. Increased depth however noted. Objective Data Objective Data Vital Signs: Vital Signs Temp Pulse Resp BP 96.2 F L 81 20 H 104/44 L 07/01/23 11:00 07/01/23 11:00 07/01/23 11:00 07/01/23 11:00 Weight: 170 lb Body Mass Index (BMI) 29.2 Charges/Coding Procedures Integumentary 111xxx-113xx: [id number] Maria M subq tissue 20 sq cm/< Physical Exam Const alert, oriented x3 and no apparent distress General Appearance: cooperative and comfortable HEENT normocephalic and head/scalp atraumatic Eyes EOMs intact bilaterally Neck full ROM and supple General: normal visual inspection Resp normal respiratory effort Effort and Inspection: able to speak in complete sentences Skin Wounds: wounds noted Neuro oriented x3, CN's II-XII intact bilaterally and moves all extremities Psych mental status grossly normal, thought process normal and cooperative Debridement Note Debridement Note Wound debrided: Sacral Wound Grade/Stage: Stage III Type of Debridement: Excisional debridement Anesthesia Used: 5% Lidocaine Gel Depth: Down to and including healthy tissue and in the subcutaneous layer Percentage of wound debrided: 100 Instrument Used: 5mm curette Tissue Removed: Slough and devitalized tissue Severity: Fat Layer Exposed Amount of bleeding with debridement: Mild Bleeding Controlled with: Pressure Patient tolerated procedure: Patient tolerated procedure well Post-Debridement Measurements and Additional Note: Post-Debridement Measurements/Treatment [place] - Nurse 1 - General Ulcer Assessment Start: 07/01/23 10:56 Freq: Status: Active Protocol: LAURIE Activity Type Activity Date Activity User E-sign Co-sign Detail Recorded Client Recorded Date Recorded By Document 07/01/23 11:00 Desktop 07/01/23 11:03 DL 07/01/23 11:00 - Today's Visit Information Type of service Follow-up Visit (Physician/EXTRACTOR TENDER RAW [employer]OCK ) Arrival Mode Wheelchair Transfer Assistance Manual Transfer Assist (Other) x2 Patient Identification Verified (Name & Yes ) Patient Requires Transmission-Based No Precautions Height and Weight Body Mass Index (BMI) 29.2 BMI Classification Overweight Vital Signs Temperature (97.8 F-99.1 F) 96.2 F L Temperature Source Temporal Pulse Rate (60-100) 81 Pulse Location Monitor Respiratory Rate (12-18) 20 H Respiratory rate source Observation Blood Pressure (90/60-120/80) 104/44 L Blood Pressure Mean (mm Hg) 64 Source Monitor History Since Last Visit- (Skip if this is Patient's initial visit) Have you changed medications since your No last visit? Any new allergies or adverse reactions No Had a fall/change in ADL's that may No increase risk of falls Signs or symptoms of abuse and/or No neglect since last visit Have you been in the hospital since your No last visit? Has dressing in place as prescribed Yes Has compression in place as prescribed N/A Has offloadiing in place as prescribed No Experienced any changes in pain level or No management Pain Scale: 0-10 Numeric Is Patient Pain Free? Yes - Nurse 1 - General Ulcer Measurement Start: 07/01/23 10:56 Freq: Status: Active Protocol: Activity Type Activity Date Activity User E-sign Co-sign Detail Recorded Client Recorded Date Recorded By Document 07/01/23 11:00 Desktop 07/01/23 11:03 07/01/23 11:00 Wound Center Nurse 1 #1- SACRAL -Current Size (cm) - Length 0.8 -Current Size (cm) - Width 0.5 -Current Size (cm) - Depth 1.1 -Total Square Cm 0.40 -Exudate Amt Small -Exudate Type Serosanguineous -Wound Margin Distinct, Outline Attached -Granulation Amt Large (67-100%) -Granulation Quality Chrisman -Necrosis Amt None Present (0 %) -Structure Exposed N/A -Texture (Tsering-wound Skin Appearance) Scarring -Moisture (Tsering-wound Skin Appearance) No Abnormality -Color (Tsering-wound Skin Appearance) No Abnormality -Temperature (Tsering-wound Skin No Abnormality Appearance) (Pt Warm) -Tenderness on Palpation (Tsering-wound No Skin Appearance) -Ulcer Cleansing Rinsed/ Irrigated with Saline -Foul Odor after Cleansing No -Anesthetic Used 5% Lidocaine Gel WC - Nurse 2 - General Ulcer CM Notes Start: 07/01/23 10:56 Freq: Status: Active Protocol: Activity Type Activity Date Activity User E-sign Co-sign Detail Recorded Client Recorded Date Recorded By Document 07/01/23 11:23 Desktop 07/01/23 11:35 GM 07/01/23 11:23 Wound Center Nurse 2 -Time 11:23 -Correct Patient Yes -Correct Side, Site, Position Yes -Correct Procedure Yes -Procedure Performed Yes -Type of Procedure Debridement -Clinical Debridement Subcutaneous -Tissue Removed Subcutaneous -Post Debridement (cm) - Length 1.0 -Post Debridement (cm) - Width 0.3 -Post Debridement (cm) - Depth 1.4 -Total Square (Post) (cm) 0.30 -Area of Debridement (cm) - Length 1.0 -Area of Debridement (cm) - Width 0.3 -Total Square (Area) (cm) 0.30 -Tunneling No -Undermining/Tunneling No -Circular Undermining No -Wound/Ulcer Outcome Not Healed -Ulcer Cleansing Rinsed/ Irrigated with Saline -Foul Odor after Cleansing No -Bioengineered Tissue No -Bleeding Controlled with Pressure -Treatment Response Procedure Tolerated Well -Debridement - Subq, 1st 20sq cm Yes Pain Scale: 0-10 Numeric Is Patient Pain Free? Yes Assessment/Plan Assessment/Plan (1) Sacral decubitus ulcer, stage III: CODE(S): L89.153 - Pressure ulcer of sacral region, stage 3 (2) History of stroke: CODE(S): Z86.73 - Personal history of transient ischemic attack (TIA), and cerebral infarction without residual deficits (3) Debility: CODE(S): R53.81 - Other malaise PLAN: Plan Debridement done as documented above, procedure was well-tolerated. Does not look clinically infected but cultures taken due to increased depth. They deny increased drainage, pain or other concerns. Continue Promogran, cover with Adaptic and foam dressing. Change daily to twice daily depending on drainage /soilage. Continue offloading and adequate protein intake. Their questions were answered and they were advised to call with any further questions or concerns. Follow-up in 1 week or sooner if needed. This note was generated with [employer] software. It may contain incorrect words, spelling, and punctuation that were not noted in checking the note before signing.
== END 2023-07-29 23:59 | disposition home or self-care (01) ==
LOC: WC 10:49
PROVIDERS: PCP Internal Medicine; Referring Provider Internal Medicine; Visit Provider Internal Medicine
DX: L89.153 Pressure ulcer of sacral region, stage 3 (principal); R53.81 Other malaise; Z79.82 Long term (current) use of aspirin; Z79.02 Long term (current) use of antithrombotics/antiplatelets; Z86.73 Personal history of transient ischemic attack (TIA), and cerebral infarction without residual deficits
CPT/HCPCS: 11042; 87070; 87075; 87077; 87186; 87205

== ENCOUNTER 2024-06-12 12:49 | Emergency (ER) | payer MEDICARE, MEDICAID, SELFPAY ==
[2024-06-12 12:50] VITALS: BP 162/81; PULSE 106; RESP 18; TEMP 36.6; O2SAT 92; BMI 25.1
--- NOTE | 2024-06-12 12:53 | EDS_ITS ---
HPI HPI - Fall History of Present Illness Chief Complaint: Fall PFSH PFSH Medical History (Updated 06/12/24 @ 15:[address] Len Kelley, DO) Debility Sacral decubitus ulcer, stage III History of stroke HTN (hypertension) Hypothyroid Depression Seizure CAD (coronary artery disease) Hyperlipemia COVID-19 Iron deficiency anemia Heart failure Vertigo Home Medications ?Medication ?Instructions ?Recorded ?Last Taken ?Type atorvastatin 20 mg tablet 20 mg PO QHS cholesterol 08/17/18 08/27/20 History clopidogrel 75 mg tablet 75 mg PO DAILY 08/17/18 08/28/20 History levetiracetam 500 mg tablet 500 mg PO BID seizures 08/17/18 08/28/20 History levothyroxine 50 mcg tablet 50 mcg PO DAILY Thyroid 08/17/18 08/28/20 History sertraline 100 mg tablet 150 mg PO QHS depression 08/17/18 08/27/20 History aspirin 81 mg tablet,delayed 81 mg PO DAILY@0800 08/28/20 08/28/20 History release carvedilol 12.5 mg tablet 12.5 mg PO BID heart 08/28/20 08/28/20 History multivitamin-iron 9 mg-folic acid 1 tab PO DAILY supplement 08/28/20 08/28/20 History 400 mcg-calcium and minerals tablet lisinopril 5 mg tablet 5 mg PO QHS bp ##0 08/31/20 08/27/20 Rx albuterol sulfate 2.5 mg/3 mL 1.25 mg inhalation Q6H PRN 03/25/23 Unknown History (0.083 %) solution for nebulization shortness of breath or wheezing albuterol sulfate 90 mcg/actuation 2 inh inhalation Q4H PRN shortness 03/25/23 Unknown History aerosol inhaler (ProAir HFA) of breath or wheezing furosemide 20 mg tablet 20 mg PO DAILY 03/25/23 Unknown History spironolactone 25 mg tablet 25 mg PO DAILY 03/25/23 Unknown History (Aldactone) doxycycline monohydrate 100 mg 100 mg PO BID #14 caps 07/06/23 Unknown Rx capsule metronidazole 500 mg tablet 500 mg PO TID #21 tabs 07/06/23 Unknown Rx acetaminophen 325 mg tablet 650 mg (2 x 325 mg) PO Q6H PRN 06/12/24 Unknown Rx (Tylenol) pain #240 tabs ibuprofen 400 mg tablet 400 mg PO Q6H PRN pain 30 days 06/12/24 Unknown Rx #120 tabs oxycodone 5 mg tablet 5 mg PO Q6H PRN pain 4 days #16 06/12/24 Unknown Rx tabs Allergy/AdvReac Type Severity Reaction Status Date / Time No Known Allergies Allergy Verified 06/12/24 12:52 Social History Smoking Status: Unknown if ever smoked EXAM Physical Exam Const Vital Signs: 06/12/24 12:50 06/12/24 14:03 06/12/24 14:49 Temperature 98 F Temperature Source Oral Pulse Rate 106 H 90 Respiratory Rate 18 16 Respiratory Effort Normal Respiratory Depth Normal Respiratory Pattern Normal Blood Pressure 162/81 H 134/52 H Blood Pressure Mean 108 79 Pulse Ox 92 98 Oxygen Delivery Method Room Air Room Air Room Air MDM MDM MDM Narrative Medical decision making narrative: HISTORY OF PRESENT ILLNESS: 73-year-old female presents with hip pain after fall. She states she attempted to get out of the couch and fell forward hitting her head. Denies neck pain. Notes bilateral hip pain and bilateral knee pain. Per the patient's son she has not been ambulating for last 1-1/2 to 2 days after her fall. He is concerned she may have an injury. REVIEW OF SYSTEMS: Pertinent positives: Hip pain, knee pain Pertinent negatives: Dysuria, frequency, urgency, fever, chest pain, palpitations PHYSICAL EXAM: Nursing triage notes reviewed, Vital signs reviewed Primary Survey Airway: Intact Breathing: Bilateral breath sounds Circulation: Palpable bilateral femorals, Palpable bilateral radial, Palpable bilateral DP and Palpable bilateral PT Disability / Spine precautions GCS Score: Eye Openin Verbal Response: 5 Motor Response: 6 Secondary Survey Constitutional: Please see MDM Head: Atraumatic, Midface stable, NO jaw malocclusion, No Cephalohematoma, and No Lacerations noted Eye: Pupils equal round and reactive to light, Extraocular muscles intact and No periorbital ecchymosis or stepoff, no evidence of entrapment ENT: Oropharynx clear, no lacerations, no hemotympanum, no raccoon eyes or rizzo sign Cervical spine / Neck: No cervical spine bony tenderness, crepitance, or stepoff deformity Trachea midline Lungs: Clear to auscultation, No asymmetric rise and No crepitus, no flail chest Cardiac: Regular rate and rhythm and No murmurs Abdomen: Soft, Nontender and No rebound Pelvis: Pelvis stable to compression : No evidence of genital injury Back: No midline bony tenderness to thoracic/lumbar/sacral spines Neuro: At baseline, intact strength and sensation in bilateral upper and lower extremities. 2+ patellar reflexes bilaterally. Extremities: NO gross Deformities Psych: Normal affect Nursing triage notes reviewed, Vital signs reviewed MEDICAL DECISION MAKING: Chief Complaint: Fall, hip pain External records reviewed: Prior medications reviewed: Vitals reviewed: Problem list reviewed Factors affecting care: Multiple falls, Social determinants of health: none History obtained from others: The patient's son Consults: none MDM Narrative: Patient was initially hypertensive and tachycardic with a blood pressure 160/81 and a pulse of 106. Primary secondary trauma surveys concerning for hip and knee pathology. I considered the following differential diagnosis: I obtained a broad imaging wo rkup ALL IMAGES (IF OBTAINED) HAVE BEEN PERSONALLY REVIEWED AND INTERPRETED BY MYSELF. CT scan of the head was negative I read and personally viewed x-rays of bilateral hip and pelvis, bilateral knees which were negative for acute fracture or dislocation. CBC with no leukocytosis, noted mild anemia, no thrombocytopenia BMP without evidence of significant electrolyte abnormalities, no anion gap, no acute kidney injury. Urinalysis pending She was treated with PO oxycodone. On reevaluation on tertiary exam no new traumatic injuries. The patient ambulate here in the emergency department albe it slowly but effectively essentially simulating her home environment. I had a long shared decision-making discussion with the patient and son. The patient's son was comfortable with her level ambulation was comfortable have the patient back at home. He did want a urinalysis checked prior to discharge if she has had history of UTIs this may be explaining some of her additional weakness after a fall. The patient and/or family, caregivers express understanding. The patient and/or family, caregivers agrees with the plan. Shared decision making: I will have a discussion with the patient and or visitors regarding risk/benefits of further testing or admission. They will be made aware of of the risk/benefits inherent in this decision they will be given the opportunity to voice understanding. Total critical care time today provided was at least 0 minutes. This excludes separately billable procedures. Critical care time (if documented) is secondary to the patient having high probability of clinically significant/life threatening deterioration in the patient's condition which required my urgent intervention. Signed out to p.m. physician pending urinalysis, possible antibiotics, and discharge. Impression: 1. Fall 2. Hip contusion 3. Knee contusion Dispo: Discharge after UA This note was generated with [employer] dictation software. It may contain incorrect words, spelling, and punctuation that were not noted in review of the chart prior to signing. Lab Data Labs: Laboratory Results - last 24 hr 06/12/24 13:12 WBC 7.8 RBC 4.36 Hgb 10.8 L Hct 35.5 L MCV 81.4 MCH 24.8 L MCHC 30.4 L RDW Std Deviation 46.4 H RDW Coeff of Lev 15.8 H Plt Count 340 MPV 9.5 Immature Gran % (Auto) 0.300 Neut % (Auto) 80.3 H Lymph % (Auto) 12.0 L Mcleod % (Auto) 6.3 Eos % (Auto) 0.6 Baso % (Auto) 0.5 Absolute Neuts (auto) 6.2 Absolute Lymphs (auto) 0.93 Nucleated RBC % 0 Sodium 142 Potassium 3.9 Chloride 107 Carbon Dioxide 28.0 Anion Gap 6 BUN 10 Creatinine 0.83 Estim Creat Clear Calc 56.63 Est GFR (MDRD) Af Amer 87 Est GFR (MDRD) Non-Af 72 BUN/Creatinine Ratio 12.1 Glucose 128 H Calcium 9.1 Radiography Diagnostic Testing: Clinical Impression(s) from Imaging Studies Hip/Pelvis X-Ray 06/12/24 13:13 IMPRESSION: No evidence of displaced pelvic or hip fracture. Electronically Signed: Jackeline Doe MD at 14:58 EDT , Knee X-Ray 06/12/24 13:13 IMPRESSION: No acute osseous injury. Electronically Signed: Jackeline Doe MD at 14:45 EDT , Knee X-Ray 06/12/24 13:17 IMPRESSION: Punctate round density projecting over the anterior joint space, cannot exclude a intra-articular loose body. Electronically Signed: Jackeline Doe MD at 14:48 EDT , Brain CT 06/12/24 13:52 IMPRESSION: No acute intracranial process. Stable encephalomalacia within the left frontotemporal lobes consistent with an old infarct. Electronically Signed: Jackeline Doe MD at 14:33 EDT , Discharge Plan Triage Chief Complaint: Fall ED Provider: Len Kelley Dx/Rx/DC Orders Clinical Impression: Multiple falls Instructions: ED Head Injury (Adult), ED Fall Prevention Prescriptions: New oxycodone 5 mg tablet 5 mg PO Q6H PRN (Reason: pain) 4 Days Qty: 16 0RF ibuprofen 400 mg tablet 400 mg PO Q6H PRN (Reason: pain) 30 Days Qty: 120 0RF acetaminophen [Tylenol] 325 mg tablet 650 mg PO Q6H PRN (Reason: pain) Qty: 240 0RF No Action atorvastatin 20 MG tablet 20 mg PO QHS levetiracetam 500 MG tablet 500 mg PO BID sertraline 100 MG tablet 150 mg PO QHS clopidogrel 75 MG tablet 75 mg PO DAILY levothyroxine 50 MCG tablet 50 mcg PO DAILY carvedilol 12.5 MG tablet 12.5 mg PO BID aspirin 81 MG tablet 81 mg PO DAILY@0800 [id number]-calcium-mins 1 EACH tablet 1 tab PO DAILY lisinopril 5 MG tablet 5 mg PO QHS Qty: 0 0RF Rx Instructions: Hold for 5 more days spironolactone [Aldactone] 25 mg tablet 25 mg PO DAILY furosemide 20 mg tablet 20 mg PO DAILY albuterol sulfate 2.5 mg /3 mL (0.083 %) solution for nebulization 1.25 mg inhalation Q6H PRN (Reason: shortness of breath or wheezing) albuterol sulfate [ProAir HFA] 90 mcg/actuation HFA aerosol inhaler 2 inh inhalation Q4H PRN (Reason: shortness of breath or wheezing) doxycycline monohydrate 100 mg capsule 100 mg PO BID Qty: 14 0RF metronidazole 500 mg tablet 500 mg PO TID Qty: 21 0RF Primary Care Provider: Lenin Bhatt Referrals: Lenin Bhatt MD [Primary Care Provider] - Activity Restrictions/Additional Instructions: Thank you for trusting us with your care today! Please take Tylenol (2 pills, 650 mg), ibuprofen (2 pills, 400 mg) every 6 hours as needed for pain and fever control. If the above does not control your pain please go oxycodone as needed. Please return to the emergency department if your symptoms change or worsen. Specifically if your loved one and has difficulty ambulating. Please follow with your primary care physician for further outpatient evaluation and management. Print Language: Greek Disposition Disposition: Home, Self Care
--- NOTE | 2024-06-12 13:13 | RAD_ITS ---
INDICATION: knee pain after fall EXAMINATION/TECHNIQUE: X-RAY - RIGHT XR Knee 3 Views 3 VIEWS COMPARISON: No relevant prior comparison study available FINDINGS: SOFT TISSUES: No soft tissue swelling or gas. No radiopaque foreign body. BONES/JOINTS: No acute fracture or subluxation.. Normal alignment. Preservation of the joint space.. No sclerotic or destructive changes observed. RAD/Knee 3 Views IMPRESSION: No acute osseous injury. Electronically Signed: Jackeline Doe MD at 14:45 EDT ,
--- NOTE | 2024-06-12 13:13 | RAD_ITS ---
INDICATION: hip pain after fall EXAMINATION/TECHNIQUE: X-RAY - XR Hips Bilateral with Pelvis when performed; 2 Views COMPARISON: No relevant prior comparison study available FINDINGS: PELVIC BONES: No displaced fracture, destructive or sclerotic lesions. Note that overlapping bowel shadows may however obscure fine detail. Sacroiliac joints are unremarkable. No widening of the pubic symphysis. HIPS: The articular structures are unremarkable. No displaced fracture seen in this frontal view. SOFT TISSUES: No soft tissue swelling or gas. RAD/Hips B/L min 2 views w/ Pelvis IMPRESSION: No evidence of displaced pelvic or hip fracture. Electronically Signed: Jackeline Doe MD at 14:58 EDT ,
--- NOTE | 2024-06-12 13:17 | RAD_ITS ---
INDICATION: FALL EXAMINATION/TECHNIQUE: X-RAY - LEFT XR Knee 3 Views 3 VIEWS COMPARISON: Right knee dated June 12, 2024 FINDINGS: SOFT TISSUES: No soft tissue swelling or gas. No radiopaque foreign body. BONES/JOINTS: No acute fracture or subluxation.. Normal alignment. Preservation of the joint space. There is a punctate round density projecting over the anterior joint space. No sclerotic or destructive changes observed. RAD/Knee 3 Views IMPRESSION: Punctate round density projecting over the anterior joint space, cannot exclude a intra-articular loose body. Electronically Signed: Jackeline Doe MD at 14:48 EDT ,
[2024-06-12] MEDS: oxyCODONE 5 MG Tablet PO (13:29)
[2024-06-12 13:34] LABS: Absolute Lymphocyte Count 0.93 X10^3/uL (0.83-4.51); Absolute Neutrophil Count 6.2 X10^3/uL (2.0-7.7); Basophil# 0.04 X10^3/uL; Basophil% 0.5 % (0-1); Eosinophil# 0.05 X10^3/uL; Eosinophils% 0.6 % (0-5); Hematocrit 35.5 % (37-47); Hemoglobin 10.8 g/dL (12.0-15.0); Lymphocyte # 0.93 X10^3/ul (0.83-4.51); Mean Corp Hgb Conc 30.4 g/dL (32-36); Mean Corpuscular Hgb 24.8 pg (27.0-32.0); Mean Corpuscular Volume 81.4 fL (81-99); Mean Platelet Vol. 9.5 fl (6.2-12.0); Monocyte# 0.49 X10^3/uL; Monocyte% 6.3 % (0-10); NRBC Flagged by Analyzer 0 % (0-5); Neutrophil # 6.24 X10^3/uL (2.7-7.7); Neutrophil % 80.3 % (47-70); Platelet Count 340 K/mm3 (150-450); RBC Distribution Width CV 15.8 % (11.6-14.6); RBC Distribution Width SD 46.4 fl (35.1-43.9); Red Blood Count 4.36 M/mm3 (4.2-5.4); White Blood Count 7.8 K/mm3 (4.4-11.0)
[2024-06-12 13:39] LABS: Anion Gap 6 (5-15); BUN 10 mg/dL (7-18); BUN/Creat Ratio 12.1 RATIO (10-20); Calcium,Total 9.1 mg/dL (8.5-10.1); Chloride 107 mmol/L (98-107); Creatinine, Serum 0.83 mg/dL (0.55-1.02); EST Glomerular Filtration Rate 72 mL/min (>60); Est Glom Filt Rate - Afr Amer 87 mL/min (>60); Estimated Creatinine Clearance 56.63 ml/min; Glucose 128 mg/dL (74-106); Potassium 3.9 mmol/L (3.5-5.1); Sodium Level 142 mmol/L (136-145)
--- NOTE | 2024-06-12 13:52 | CT_ITS ---
INDICATION: head trauma EXAMINATION: CT BRAIN - CT Head or Brain W/O Contrast Injection TECHNIQUE: Multiple axial images were obtained of the head without intravenous contrast. The protocol utilizes one or more of the following dose reduction techniques: automated exposure control, adjustment of mA and/or kV according to patient size,and/or use of iterative reconstruction technique. IV Contrast dosage and agent: None. RADIATION DOSAGE (If Supplied By Facility): CTDIvol = ( 44.99 ) mGy, DLP = ( 779.24 ) mGycm COMPARISON: March 11, 2021 FINDINGS: BRAIN PARENCHYMA: No intra- or extra-axial hemorrhage. There is stable encephalomalacia within the left frontal and left temporal lobes. No evidence of acute infarct. No intracranial mass or mass effect. There is preservation of the rutledge/white matter interface. Posterior fossa structures are unremarkable. CSF SPACES: Appropriate for age. No hydrocephalus. Basal cisterns are patent. CALVARIUM, SKULL BASE, PARANASAL SINUSES AND MASTOID AIR CELLS: Clear. No discrete lytic or blastic abnormalities. ORBITS: Both globes, extraocular muscles, optic nerves and retrobulbar fat appear unremarkable. ASPECTS Score for Acute Strokes: 10 CT/Brain/Head without Contrast IMPRESSION: No acute intracranial process. Stable encephalomalacia within the left frontotemporal lobes consistent with an old infarct. Electronically Signed: Jackeline Doe MD at 14:33 EDT ,
[2024-06-12 14:49] VITALS: BP 134/52; PULSE 90; RESP 16; O2SAT 98
[2024-06-12 15:48] LABS: Mucous, Urine 0 SEEN /hpf (<or=2+)
[2024-06-12 15:52] LABS: Color, Urine Yellow (Yellow); Glucose, Dipstick Normal (Normal); Ketone-Dipstick 15 mg/dl (Negative); Leukocyte Esterase-Dipstick 100 /ul (Negative); Nitrite-Dipstick Positive (Negative); Occult Blood-Urine 50 /ul (Negative); Protein-Dipstick 15 mg/dl (Negative); Urine Bilirubin Dipstick Negative (Negative); Urine Clarity Cloudy (Clear); Urine Urobilinogen Normal (Normal)
[2024-06-12 16:00] VITALS: BP 112/69; PULSE 88; RESP 16; TEMP 36.7; O2SAT 95
[2024-06-12 16:07] LABS: Bacteria 4+ /hpf (None Seen)
[2024-06-12 16:08] LABS: Red Blood Cells-Urine 0-5 SEEN /hpf (0-5); Squamous Epithelial Cells - UA 0-5 SEEN /hpf (5-10); Transitional Epithelial - Ur 0 SEEN /hpf (0-5); White Blood Cells 0-5 SEEN /hpf (0-5)
== END 2024-06-12 16:50 | disposition home or self-care (01) ==
PROVIDERS: Emergency Provider Emergency Medicine; PCP Internal Medicine; Referring Provider Emergency Medicine; Visit Provider Emergency Medicine
DX: S80.01XA Contusion of right knee, initial encounter (principal); I11.0 Hypertensive heart disease with heart failure; I50.9 Heart failure, unspecified; S80.02XA Contusion of left knee, initial encounter; S70.02XA Contusion of left hip, initial encounter; S70.01XA Contusion of right hip, initial encounter; W08.XXXA Fall from other furniture, initial encounter; I25.10 Atherosclerotic heart disease of native coronary artery without angina pectoris; E78.5 Hyperlipidemia, unspecified; D50.9 Iron deficiency anemia, unspecified; E03.9 Hypothyroidism, unspecified; Z79.82 Long term (current) use of aspirin; Z79.02 Long term (current) use of antithrombotics/antiplatelets; Z79.890 Hormone replacement therapy; Z79.899 Other long term (current) drug therapy; Z86.73 Personal history of transient ischemic attack (TIA), and cerebral infarction without residual deficits
CPT/HCPCS: 70450; 73521; 73562; 80048; 81001; 85025; 99284; P9612

== ENCOUNTER 2024-06-17 10:18 | Inpatient (IN) | payer MEDICARE, MEDICAID, SELFPAY ==
[2024-06-17 10:19] VITALS: BP 127/55; PULSE 93; RESP 24; TEMP 36.9; O2SAT 94; BMI 23.8
--- NOTE | 2024-06-17 10:32 | CT_ITS ---
EXAMINATION : Head CT w/out contrast HISTORY : fall COMPARISON : 06/12/2024. TECHNIQUE : Multiple contiguous axial images were obtained from the skull base to the vertex without intravenous contrast. A radiation dose optimization technique was used for this scan. FINDINGS : There is no evidence for acute intracranial hemorrhage, mass effect, or midline shift. There is no extra-axial fluid collection. There are periventricular white matter changes consistent with chronic microvascular ischemic disease. There is sulcal widening and ventricular enlargement consistent with cerebral atrophy. There is normal terrazas-white differentiation, without CT evidence of acute ischemia or infarct. Left frontotemporal encephalomalacia. The skull base and calvarium are unremarkable. The orbits are unremarkable. The paranasal sinuses are clear. The mastoid air cells are well-aerated. The soft tissues are unremarkable. CT/Brain/Head without Contrast IMPRESSION: No acute intracranial abnormality. Left frontotemporal encephalomalacia. Chronic involutional and ischemic changes of the brain. Electronically Signed: Benja Pennington MD at 11:18 EDT ,
--- NOTE | 2024-06-17 10:32 | CT_ITS ---
INDICATION: fall EXAMINATION: CT CERVICAL SPINE - CT Spine Cervical W/O Contrast Injection TECHNIQUE: Helically acquired images were obtained of the cervical spine. 2D reformatted images were reviewed. A radiation dose optimization technique was used for this scan. IV Contrast dosage and agent: None. COMPARISON: None. FINDINGS: VERTEBRAE: Old fracture versus congenital defect of the left anterolateral C1 arch.No acute fracture or traumatic subluxation. No discrete lytic or blastic abnormality. Normal alignment. Normal craniocervical junction and cervicothoracic junction. DISCS and SPINAL CANAL: Moderate multilevel degenerative disc disease and spondylosis. No critical stenosis. NECK SOFT TISSUES: No prevertebral soft tissue swelling. There is no cervical adenopathy. LUNG APICES: Clear. CT/Spine Cervical without Contras IMPRESSION: No evidence of acute cervical spinal fracture or spondylolisthesis. 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 Moderate multilevel degenerative disc disease and spondylosis Electronically Signed: Benja Pennington MD at 11:30 EDT ,
--- NOTE | 2024-06-17 10:33 | EX.ED.GENINJ ---
HPI History of Present Illness Chief Complaint: Fall Detail of Chief Complaint: Fall with head injury Informant: patient Narrative Narrative: Patient presents to the emergency department after sustaining a fall around 9:30 AM. Patient apparently was on the couch when she tried to sit up and fell off the couch. Patient states she hit her head on an end table. No loss of consciousness. She complains of slight headache. She denies recent illness. Patient apparently had a visit to our emergency department 5 days ago for similar fall. She complains of some mild right hip pain from prior fall. Patient sometimes can ambulate with a rollator if the son is present who is her main caregiver. [facility] Medical History (Updated 06/17/24 @ 12:[address] Alphonso Man, DO) Debility Sacral decubitus ulcer, stage III History of stroke HTN (hypertension) Hypothyroid Depression Seizure CAD (coronary artery disease) Hyperlipemia COVID-19 Iron deficiency anemia Heart failure Vertigo Home Medications ?Medication ?Instructions ?Recorded ?Last Taken ?Type atorvastatin 20 mg tablet 20 mg PO QHS cholesterol 08/17/18 08/27/20 History clopidogrel 75 mg tablet 75 mg PO DAILY 08/17/18 08/28/20 History levetiracetam 500 mg tablet 500 mg PO BID seizures 08/17/18 08/28/20 History levothyroxine 50 mcg tablet 50 mcg PO DAILY Thyroid 08/17/18 08/28/20 History sertraline 100 mg tablet 150 mg PO QHS depression 08/17/18 08/27/20 History aspirin 81 mg tablet,delayed 81 mg PO DAILY@0800 08/28/20 08/28/20 History release carvedilol 12.5 mg tablet 12.5 mg PO BID heart 08/28/20 08/28/20 History multivitamin-iron 9 mg-folic acid 1 tab PO DAILY supplement 08/28/20 08/28/20 History 400 mcg-calcium and minerals tablet lisinopril 5 mg tablet 5 mg PO QHS bp ##0 08/31/20 08/27/20 Rx albuterol sulfate 2.5 mg/3 mL 1.25 mg inhalation Q6H PRN 03/25/23 Unknown History (0.083 %) solution for nebulization shortness of breath or wheezing albuterol sulfate 90 mcg/actuation 2 inh inhalation Q4H PRN shortness 03/25/23 Unknown History aerosol inhaler (ProAir HFA) of breath or wheezing furosemide 20 mg tablet 20 mg PO DAILY 03/25/23 Unknown History spironolactone 25 mg tablet 25 mg PO DAILY 03/25/23 Unknown History (Aldactone) acetaminophen 325 mg tablet 650 mg (2 x 325 mg) PO Q6H PRN 06/12/24 Unknown Rx (Tylenol) pain #240 tabs ciprofloxacin HCl 500 mg tablet 500 mg PO BID #14 TABLETS 06/12/24 Unknown Rx ibuprofen 400 mg tablet 400 mg PO Q6H PRN pain 30 days 06/12/24 Unknown Rx #120 tabs oxycodone 5 mg tablet 5 mg PO Q6H PRN pain 4 days #16 06/12/24 Unknown Rx tabs Allergy/AdvReac Type Severity Reaction Status Date / Time No Known Allergies Allergy Verified 06/17/24 10:24 Social History (Updated 06/17/24 @ 10:27 by Tita Garcia) household members: children housing: house current occupational status: retired Smoking Status: Unknown if ever smoked ROS ROS ED Review of Systems ROS Unobtainable: other Constitutional Constitutional ED: Reports lethargy; Denies chills, fever(s), sweats or weight loss Eyes Eyes: Denies blurry vision, change in vision or diplopia ENT ENT ED: Denies rhinorrhea or sore throat Cardiovascular Cardiovascular: Denies chest pain, orthopnea or racing heartbeat Respiratory/Chest Respiratory/Chest: Denies cough, dyspnea, dyspnea on exertion, orthopnea or sputum Gastrointestinal Gastrointestinal: Denies abdominal pain, diarrhea, nausea or vomiting Genitourinary Genitourinary ED: Denies dysuria, hematuria or urinary frequency Musculoskeletal Musculoskeletal: Denies arthralgias, back pain, myalgias or neck pain Integumentary Denies abscess, Abrasions or rash Neurologic Neurologic: Reports headache(s); Denies weakness Psychiatric Psychiatric: Denies anxiety, depression or suicidal thoughts Endocrine Endocrinology: Denies polydipsia, polyphagia or polyuria Hematologic/Lymphatic Hematologic/Lymphatic: Denies easy bleeding, easy bruising or lymphadenopathy Allergic/Immunologic Allergic/Immunologic ED: Denies mouth swelling, tongue swelling or urticaria EXAM Physical Exam Const Vital Signs: 06/17/24 10:19 06/17/24 10:28 06/17/24 12:08 Temperature 98.5 F Temperature Source Oral Pulse Rate 93 Respiratory Rate 24 H Respiratory Effort Normal Non-Labored Respiratory Depth Normal Respiratory Pattern Normal Blood Pressure 127/55 H Blood Pressure Mean 79 Pulse Ox 94 94 Oxygen Delivery Method Nasal Cannula Nasal Cannula Nasal Cannula Oxygen Flow Rate (L/min) 2 2 Positive well nourished and well developed General Appearance ED: well developed and NAD HEENT Reports TM's clear and moist mucous membranes normocephalic and atraumatic; Negative for trauma or tenderness Tympanic Membrane ED: Yes TM's clear Eyes PERRL and EOMs intact bilaterally General Eye ED: Negative for pale conjunctiva or scleral icterus Neck no lymphadenopathy, supple and no JVD General: Negative for tenderness Chest Wall inspection of chest normal and palpation of chest normal Chest: Negative for tenderness Resp normal respiratory effort and clear to auscultation bilaterally Effort and Inspection: Negative for respiratory distress or pain with movement Auscultation: Negative for rhonchi, wheezes or diminished lung sounds Cardio regular rate, regular rhythm, S1 normal heart sound, S2 normal heart sound and no murmurs Peripheral Pulses: pulses 2+ throughout GI normal to inspection, nondistended, normoactive bowel sounds, soft to palpation, non-tender, non-distended and no masses Back/Spine no CVA tenderness and no thoracic nor lumbar tenderness Extremity normal to inspection Extremity Narrative: Mild tenderness palpation over the right hip. There is no shortening or rotational deformity. She is neurovascular intact distally. General Extremety ED: Negative for edema General Extremity: Negative for edema Neuro oriented x3, CN's II-XII intact bilaterally, no sensory deficits noted and gait normal Sensorium / Orientation: awake, alert, oriented to person, oriented to place and oriented to time Motor Exam: strength 5/5 throughout and strength abnormal Psych mental status grossly normal Skin no rashes or lesions noted and no wounds MDM MDM MDM Narrative Medical decision making narrative: Patient presents after a mechanical fall off the couch. Complaining of head pain. No loss of consciousness. She had recent prior fall and son states that she has been spending time on the couch and has been unable really to ambulate much since that time. Normally she would use a walker. Patient had a CT scan of the brain without contrast that was unremarkable other than old prior stroke. Patient also had CT of the cervical spine that showed degenerative changes. I did do a pelvis x-ray and right hip x-ray which showed no acute fractures. Discussed with son possible admission for placement or rehab facility. Patient and son would like to go home and try to see if she can manage versus admission. They do not want admission at this time. I did give patient a dose of Tylenol p.o. after patient was placed for discharge son came in and states that now they have changed her mind and 1 patient admitted as she is continuing to have pain in her legs and has been unable to ambulate since her last fall. Will place an IV and get some basic labs. Will discuss with hospitalist evaluate patient for admission for failure to thrive and frequent falls Radiography Diagnostic Testing: Clinical Impression(s) from Imaging Studies Brain CT 06/17/24 10:32 IMPRESSION: No acute intracranial abnormality. Left frontotemporal encephalomalacia. Chronic involutional and ischemic changes of the brain. Electronically Signed: Benja Pennington MD at 11:18 EDT Reading Location ID and State: [employer] [facility] [id number] Tel , Service support , Cervical Spine CT 06/17/24 10:32 IMPRESSION: No evidence of acute cervical spinal fracture or spondylolisthesis. 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 Moderate multilevel degenerative disc disease and spondylosis Electronically Signed: Benja Pennington MD at 11:30 EDT Reading Location ID and State: [id number] / [place] Tel , Service support , Hip/Pelvis X-Ray 06/17/24 10:50 IMPRESSION: No definite acute fracture, however examination of the pubic symphysis and pubic rami is limited due to overlying bowel gas. If high clinical concern for fracture, consider CT pelvis. Electronically Signed: Benja Pennington MD at 11:38 EDT , Discharge Plan Triage Chief Complaint: Fall ED Provider: Alphonso Man Dx/Rx/DC Orders Clinical Impression: Fall, Closed head injury, Contusion of hip, right Instructions: ED Mechanical Fall, ED Head Injury (Adult), ED Hip Contusion Prescriptions: No Action atorvastatin 20 MG tablet 20 mg PO QHS levetiracetam 500 MG tablet 500 mg PO BID sertraline 100 MG tablet 150 mg PO QHS clopidogrel 75 MG tablet 75 mg PO DAILY levothyroxine 50 MCG tablet 50 mcg PO DAILY carvedilol 12.5 MG tablet 12.5 mg PO BID aspirin 81 MG tablet 81 mg PO DAILY@0800 [id number] 1 EACH tablet 1 tab PO DAILY lisinopril 5 MG tablet 5 mg PO QHS Qty: 0 0RF Rx Instructions: Hold for 5 more days spironolactone [Aldactone] 25 mg tablet 25 mg PO DAILY furosemide 20 mg tablet 20 mg PO DAILY albuterol sulfate 2.5 mg /3 mL (0.083 %) solution for nebulization 1.25 mg inhalation Q6H PRN (Reason: shortness of breath or wheezing) albuterol sulfate [ProAir HFA] 90 mcg/actuation HFA aerosol inhaler 2 inh inhalation Q4H PRN (Reason: shortness of breath or wheezing) oxycodone 5 mg tablet 5 mg PO Q6H PRN (Reason: pain) 4 Days Qty: 16 0RF ibuprofen 400 mg tablet 400 mg PO Q6H PRN (Reason: pain) 30 Days Qty: 120 0RF acetaminophen [Tylenol] 325 mg tablet 650 mg PO Q6H PRN (Reason: pain) Qty: 240 0RF ciprofloxacin HCl 500 mg tablet 500 mg PO BID Qty: 14 0RF Primary Care Provider: Lenin Bhatt Referrals: Lenin Bhatt MD [Primary Care Provider] - 3-5 Days Print Language: Grenadian Disposition Disposition: Acute Care Hospital [facility]
--- OUTSIDE RECORDS SUMMARY | 2024-06-17 10:47 | XMS RPT_ITS | CCD ---
Author Organization [facility] Care Team Providers Care Stationary Engineer Refrigeration Name Role Phone Bj, Arlette S. P. Unavailable Aramis Cheng Unavailable [phone] Felecia Shultz Unavailable Lenin Bhatt Unavailable KANAA N, MAURICIO Admitting Unavailable VANCE N, MAURICIO Attending Unavailable Lenin Bhatt Primary Care Unavailable Bj, Arlette S. P. Unavailable Aramis Cheng Unavailable Felecia Shultz Unavailable Lenin Bhatt Primary Care Provider Bj, Arlette S. P. Unavailable Bj SIMON Arlette S. P. Unavailable Aramis Cheng MD Unavailable Felecia Shultz MD Unavailable [phone] Lenin Bhatt MD Primary Care Provider Lenin Bhatt MD Primary Care Provider Lenin Bhatt MD Primary Care Provider Lenin Bhatt MD Primary Care Provider Bj SIMON, Arlette S. P. Unavailable Aramis Cheng MD Unavailable Felecia Shultz MD Unavailable Lenin Bhatt MD Primary Care Provider LENIN BHATT Primary Care Unavailable ARAMIS CHENG Attending Unavailab Lenin Porras MD Primary Care Provider LENIN BHATT Referring Unavailable JAMIE, LENIN Adame Primary Care Unavailable MOIRA HEARN Attending Unavailable JAMIE, LENIN Adame Primary Care Unavailable LENIN BHATT Attending Unavailable JAMIE, LENIN Adame Primary Care Unavailable JONATHAN AGUILA Attending Unavailable JAMIE, LENIN Adame Primary Care Unavailable JAMIE, LENIN Adame Primary Care Unavailable DEEPTI AUGUSTE Attending Unavailable JAMIE, LENIN Adame Primary Care Unavailable LENIN BHATT Referring Unavailable LENIN BHATT Primary Care Unavailable LENIN BHATT Primary Care Unavailable ZACHARIAH GONZALES JR Referring Unavaila ble Medications Current Medications Medication Drug Class(es) Dates Sig (Normalized) Sig (Original) acetaminophen 300 mg / codeine phosphate 30 mg oral tablet (16 sources) Opioid Agonist Start: 06-08-2024 End: 07-08-2024 take 1 tablet by mouth every 30 days at bedtime as needed for pain acetaminophen-code ine (TYLENOL-COD #3) 300-30 mg per tablet Indications: Pain in both lower extremities Take 1 tablet by mouth at bedtime as needed for pain for up to 30 days. 30 tablet 06/08/2024 07/08/2024 Active Start: 03-14-2024 End: 05-19-2024 take 1 tablet by mouth every 30 days at bedtime as needed for pain acetaminophen-codeine (TYLENOL-COD #3) 300-30 mg per tablet Indications: Pain in both lower extremities Take 1 tablet by mouth at bedtime as needed for pain for up to 30 days. 30 tablet 04/19/2024 Active Start: 01-10-2024 End: 02-09-2024 take 1 tablet by mouth once daily at bedtime acetaminophen-codeine (TYLENOL-COD #3) 300-30 mg per tablet Indications: Pain in both lower extremities Take 1 tablet by mouth daily at bedtime for 30 days. 30 tablet 0 01/10/2024 02/09/2024 Active Start: 12-09-2023 End: 01-08-2024 take 1 tablet by mouth once daily at bedtime acetaminophen-codeine (TYLENOL-COD #3) 300-30 mg per tablet Indications: Pain in both lower extremities Take 1 tablet by mouth daily at bedtime for 30 days. 30 tablet 0 12/09/2023 01/08/2024 Active Comment on above: Take 1 tablet by sal th daily at bedtime for 30 days. [id number] 200 actuat albuterol 0.09 mg/actuat metered dose inhaler (20 sources) beta2-Adrenergic Agonist Start: 07-15-2021 End: 12-09-2023 albuterol (PROVENTIL) 2.5 mg /3 mL (0.083 %) nebulizer solution Indications: Chronic bronchitis, unspecified chronic bronchitis type (HCC) Use 3 mL via nebulizer every 6 hours as needed for wheezing/shortness of breath. Use over 5-15minutes. 90 mL 1 12/09/2023 Active Start: 07-15-2021 End: 12-09-2023 take 2 puff(s) by inhalation every four hours as needed for wheezing albuterol HFA (VENTOLIN HFA) 90 mcg/actuation inhaler Indications: Chronic bronchitis, unspecified chronic bronchitis type (HCC) Inhale 2 Puffs as instructed every 4 hours as needed for wheezing/shortness of breath. 1 Each 1 12/09/2023 Active Comment on above: Inhale 2 Puffs as in structed every 4 hours as needed for wheezing/shortness of breath. Use 3 mL via nebuliz er every 6 hours as needed for wheezing/shortness of breath. Use over 5-15minutes. aspirin 81 mg delayed release oral tablet (20 sources) Nonsteroidal Anti-inflammatory Drug Start: 3 End: take 1 tablet by mouth once daily aspirin, enteric coated (JOSE LOW DOSE ASPIRIN) 81 mg EC tablet Indications: Late effects of CVA (cerebrovascular accident) Take 1 tablet by mouth once daily. 90 tablet 3 05/31/2024 Active Start: 12-14-2015 End: 08-29-2022 take 1 tablet by mouth once daily aspirin, enteric coated (JOSE LOW DOSE ASPIRIN) 81 mg EC tablet Indications: Late effects of CVA (cerebrovascular accident) Take 1 tablet by mouth once daily. 90 tablet 1 08/03/2022 Active Comment on above: Take 1 tablet by sal th once daily. atorvastatin 20 mg oral tablet (20 sources) HMG-CoA Reductase Inhibitor Start: 3 End: 4 take 1 tablet by mouth once daily atorvastatin (LIPITOR) 20 mg tablet Indications: Hyperlipidemia, unspecified hyperlipidemia type Take 1 tablet by mouth once daily. 90 tablet 3 03/24/2024 Active Start: 01-02-2015 End: 08-03-2022 take 1 tablet by mouth once daily atorvastatin (LIPITOR) 20 mg tablet Take 1 tablet by mouth once daily. 90 tablet 1 08/03/2022 Active Comment on above: Take 1 tablet by sal th once daily. carvedilol 12.5 mg oral tablet (20 sources) alpha-Adrenergic Anna Marie, beta-Adrenergic Anna Marie Start: 02-23-2023 End: 05-30-2024 take 1 tablet by mouth twice daily at mealtime carvedilol (COREG) 12.5 mg tablet Indications: Chronic systolic (congestive) heart failure (HCC) Take 1 tablet by mouth two times a day with meals. 180 tablet 3 05/31/2024 Active Start: 12-13-2020 End: 08-03-2022 take 1 tablet by mouth twice daily at mealtime carvedilol (COREG) 12.5 mg tablet Take 1 tablet by mouth twice daily with meals. 180 tablet 1 08/03/2022 Active Start: 01-27-2017 carvedilol (CO REG) 6.25 MG tablet Take 2 (two) tablets (12.5 mg total) by mouth . 0 01/27/2017 Active Start: 01-27-2017 carvedilol (CO REG) 6.25 MG tablet Take 6.25 mg by mouth. 01/27/2017 Active Comment on above: Take 1 tablet by sal th twice daily with meals. cephalexin 500 mg oral capsule (2 sources) Cephalosporin Antibacterial Start: 04-03-20 End: 04-08-20 22 take 1 capsule by mouth three times daily cephALEXin (KEFLEX) 500 mg capsule Take 1 capsule by mouth three times daily for 5 days. 15 capsule 0 04/03/2022 04/08/2022 Active Comment on above: Take 1 capsule by mo [facility] three times daily for 5 days. citalopram 20 mg oral tablet (7 sources) Serotonin Reuptake Inhibitor Start: 01-05-20 15 take 1 tablet by mouth once daily citalopram (CELEXA) 20 MG tablet Take 1 (one) tablet (20 mg total) by mouth daily . 1 01/04/2015 Active clopidogrel 75 mg oral tablet (20 sources) [id number] Platelet Inhibitor Start: 12-23-19 End: 12-09-19 24 take 1 tablet by mouth once daily clopidogrel (PLAVIX) 75 mg tablet Indications: Arteriosclerosis of coronary artery Take 1 tablet by mouth once daily. 90 tablet 3 12/09/2023 Active Start: 01-02-2015 End: 08-03-2022 take 1 tablet by mouth once daily clopidogrel (PLAVIX) 75 mg tablet Take 1 tablet by mouth once daily. 90 tablet 1 08/03/2022 Active Comment on above: Take 1 tablet by sal th once daily. furosemide 20 mg oral tablet (20 sources) Loop Diuretic Start: 11-26-2023 take 1 tablet by mouth once daily furosemide (LASIX) 20 mg tablet take 1 tablet by mouth once daily if needed 90 tablet 3 11/26/2023 Active Start: 12-12-2015 take 1 tablet by sal th once daily as needed furosemide (LASIX) 20 mg tablet Take 1 tablet by mouth once daily. As needed 90 tablet 1 08/03/2022 Active Comment on above: Take 1 tablet by sal th as needed. Take 1 tablet by sal th once daily. As needed take 1 tablet by sal th once daily if needed ibuprofen 600 mg oral tablet (7 sources) Nonsteroidal Anti-inflammatory Drug Start: 01-28-20 17 ibuprofen (ADVIL,MOTRIN) 600 MG tablet Take 1 (one) tablet (600 mg total) by mouth . 0 01/27/2017 Active levETIRAcetam 500 mg oral tablet (20 sources) Anti-epileptic Agent Start: 03-20-20 24 take 0.5 tablet by mouth twice daily levETIRAcetam (KEPPRA) 500 mg tablet Indications: Seizure (HCC) Take 0.5 tablets by mouth two times a day. 03/20/2024 Active Start: 09-20-2023 End: 03-20-2024 take 1 tablet by mouth twice daily levETIRAcetam (KEPPRA) 500 mg tablet Take 1 tablet by mouth two times a day. 180 tablet 1 03/13/2024 03/20/2024 Discontinued Start: 08-06-2020 End: 02-25-2023 take 1 tablet by mouth twice daily levETIRAcetam (KEPPRA) 500 mg tablet Take 1 tablet by mouth twice daily. 180 tablet 1 02/26/2023 Active Start: 11-21-2015 End: 10-05-2019 take 1 tablet by mouth twice daily levETIRAcetam (KEPPRA) 500 MG tablet Indications: Localization-related epilepsy (HCC) Take 1 (one) tablet (500 mg total) by mouth 2 (two) times a day . 60 tablet 11 10/05/2019 Active Comment on above: Take 1 tablet by sal th twice daily. Take 1 tablet by sal th two times a day. lisinopril 2.5 mg oral tablet (20 sources) Angiotensin Converting Enzyme Inhibitor Start: End: 4 take 1 tablet by mouth once daily lisinopril 2.5 mg tablet Take 1 tablet by mouth once daily. 0 03/14/2024 03/20/2024 Discontinued (Clinical Decision) Start: 02-23-2023 End: 03-14-2024 take 1 tablet by mouth once daily lisinopril (ZESTRIL) 5 mg tablet Indications: Chronic systolic (congestive) heart failure (HCC) Take 1 tablet by mouth once daily. 90 tablet 3 05/27/2023 03/14/2024 Discontinued Start: 12-12-2014 End: 08-29-2022 take 1 tablet by mouth once daily lisinopril (ZESTRIL, PRINIVIL) 5 mg tablet Take 1 tablet by mouth once daily. 90 tablet 1 08/03/2022 Active Comment on above: Take 1 tablet by sal th once daily. multivitamin (DAILY MULTI-VITAMIN) per tablet (5 sources) take 1 tablet by mouth once daily multivitamin (DAILY MULTI-VITAMIN) per tablet Take 1 tablet by mouth daily. 0 Active take 1 tablet by mouth once reba y multivitamin (DAILY MULTI-VITAMIN) per tablet Take 1 tablet by mouth daily. Active multivitamin (THERAGRAN) per tablet (1 source) take 1 tablet by mouth once daily multivitamin (THERAGRAN) per tablet Take 1 (one) tablet by mouth daily . 0 Active Multivitamin Tablet (1 source) take 1 tablet by mouth once daily multivitamin (DAILY MULTI-VITAMIN) per tablet Take 1 tablet by mouth daily. Active multivitamin tablet (20 sources) Start: 05-31-2024 take 1 tablet by mouth once daily multivitamin tablet Indications: Late effects of CVA (cerebrovascular accident) Take 1 tablet by mouth once daily. 90 tablet 3 05/31/2024 Active Start: 05-27-2023 End: 05-30-2024 take 1 tablet by mouth once daily multivitamin tablet Indications: Late effects of CVA (cerebrovascular accident) Take 1 tablet by mouth once daily. 90 tablet 3 05/27/2023 05/30/2024 Discontinued Start: 05-27-2023 take 1 tablet by sal th once daily multivitamin tablet Indications: Late effects of CVA (cerebrovascular accident) Take 1 tablet by mouth once daily. 90 tablet 3 05/27/2023 Active Start: 02-23-2023 End: 05-26-2023 take 1 tablet by mouth once daily multivitamin tablet Take 1 tablet by mouth once daily. 90 tablet 0 02/23/2023 05/26/2023 Discontinued Start: 02-23-2023 take 1 tablet by sal th once daily multivitamin tablet Take 1 tablet by mouth once daily. 90 tablet 0 02/23/2023 Active Start: 08-03-2022 take 1 tablet by sal th once daily multivitamin tablet Take 1 tablet by mouth once daily. 90 tablet 1 08/03/2022 Active Start: 06-03-2022 End: 08-03-2022 take 1 tablet by mouth once daily multivitamin tablet Take 1 tablet by mouth once daily. Multivitamin daily - chelle tab. [facility] # [id number] 90 tablet 3 06/03/2022 08/03/2022 Discontinued Start: 06-03-2022 take 1 tablet by sal th once daily multivitamin tablet Take 1 tablet by mouth once daily. Multivitamin daily - chelle tab. [facility] # [id number] 90 tablet 3 06/03/2022 Active Start: 07-14-2021 End: 06-02-2022 take 1 tablet by mouth once daily multivitamin tablet Take 1 tablet by mouth once daily. Multivitamin daily - chelle tab. [facility] # [id number] 90 tablet 3 07/14/2021 06/02/2022 Discontinued Start: 07-14-2021 take 1 tablet by sal th once daily multivitamin tablet Take 1 tablet by mouth once daily. Multivitamin daily - chelle tab. [facility] # [id number] 90 tablet 3 07/14/2021 Active Comment on above: Take 1 tablet by sal th once daily. Multivitamin daily - chelle tab. [facility] # [id number] Take 1 tablet by sal th once daily. nitrofurantoin, macrocrystals 25 mg / nitrofurantoin, monohydrate 75 mg oral capsule (1 source) Nitrofuran Antibacterial Start: End: take 1 capsule by mouth twice daily at mealtime nitrofurantoin monohydrate and macrocrystal (MACROBID) 100 mg capsule Indications: Dysuria , Frequency of urination Take 1 capsule by mouth twice daily with meals for 7 days. 14 capsule 0 07/16/2022 07/23/2022 Active Comment on above: Take 1 capsule by mo [facility] twice daily with meals for 7 days. nystatin 100 unt/mg topical powder (17 sources) Polyene Antifungal Start: nystatin (MYCOSTATIN) powder Indications: Erythema intertrigo Apply 1 application to affected area two times a day. 60 g 09/29/2023 Active Comment on above: Apply 1 application to affected area two times a day. sertraline 100 mg oral tablet (20 sources) Serotonin Reuptake Inhibitor Start: End: take 2 tablets by mouth once daily sertraline (ZOLOFT) 100 mg tablet Indications: major depressive disorder Take 2 tablets by mouth once daily. 60 tablet 2 05/24/2024 08/22/2024 Active Start: 05-19-2023 take 1.5 tablets by mouth once daily sertraline (ZOLOFT) 100 mg tablet Take 1.5 tablets by mouth once daily. 135 tablet 3 05/19/2023 Active Start: 01-05-2023 End: 05-19-2023 sertraline (ZOLOFT) 100 mg t ablet take 1 and 1/2 tablet by mouth once daily 135 tablet 3 01/05/2023 05/19/2023 Discontinued Start: 10-29-2022 take 1.5 tablets by mouth once daily sertraline (ZOLOFT) 100 mg tablet Take 1.5 tablets by mouth once daily. 45 tablet 5 10/29/2022 Active Start: 07-15-2021 End: 10-27-2022 take 1.5 tablets by mouth once daily sertraline (ZOLOFT) 100 mg tablet Take 1.5 tablets by mouth once daily. 45 tablet 5 04/07/2022 10/27/2022 Discontinued Start: 01-27-2017 sertraline (ZO LOFT) 50 MG tablet Take 2 (two) tablets (100 mg total) by mouth . 0 01/27/2017 Active Start: 01-27-2017 sertraline (ZO LOFT) 50 MG tablet Take 50 mg by mouth. 01/27/2017 Active Comment on above: Take 1.5 tablets by mouth once daily. take 1 and 1/2 table t by mouth once daily spironolactone 25 mg oral tablet (20 sources) Aldosterone Antagonist Start: 02-24-20 End: 05-26-20 take 1 tablet by mouth once daily spironolactone (ALDACTONE) 25 mg tablet Indications: Chronic systolic (congestive) heart failure (HCC) Take 1 tablet by mouth once daily. 90 tablet 3 05/27/2023 Active Start: 05-26-2021 End: 08-03-2022 take 1 tablet by mouth once daily spironolactone (ALDACTONE) 25 mg tablet Indications: Chronic systolic (congestive) heart failure (HCC) Take 1 tablet by mouth once daily. 90 tablet 1 08/03/2022 Active Comment on above: Take 1 tablet by sal th daily. Take 1 tablet by sal th once daily. levothyroxine sodium 0.05 mg oral tablet (20 sources) l-Thyroxine Start: 3 End: take 1 tablet by mouth once daily before mealtime levothyroxine (SYNTHROID) 50 mcg tablet Indications: Acquired hypothyroidism Take 1 tablet by mouth once daily. on an empty stomach 1/2 hour before meal. 90 tablet 3 12/09/2023 Active Start: 01-02-2015 End: 08-03-2022 take 1 tablet by mouth once daily before mealtime levothyroxine (SYNTHROID) 50 mcg tablet Take 1 tablet by mouth once daily. on an empty stomach 1/2 hour before meal. 90 tablet 1 08/03/2022 Active Comment on above: Take 1 tablet by sal once daily. on an empty stomach 1/2 hour before meal. trospium chloride 20 mg oral tablet (7 sources) Cholinergic Muscarinic Antagonist Start: 05-24-2024 End: 08-22-2024 take 1 tablet by mouth twice daily trospium (SANCTURA) 20 mg tablet Indications: Urinary incontinence, unspecified type TAKE 1 TABLET BY MOUTH TWICE A DAY 60 tablet 5 06/13/2024 Active Completed/Discontinued Medications Medication Drug Class(es) Dates Sig (Normalized) Sig (Original) COMPOUNDED PRESCRIPTION (20 sources) Start: 01-04-2019 End: 07-16-2022 COMPOUNDED PRESCRIPTION 3 in 1 Bedside Commode Standard size DX CVA 1 Each 0 01/04/2019 07/16/2022 Discontinued Start: 01-04-2019 End: 07-16-2022 COMPOUNDED PRESCRIPTION Tub Grab Bar that hooks on side of tub DX CVA 1 Each 0 01/04/2019 07/16/2022 Discontinued Start: 01-04-2019 COMPOUNDED PRE SCRIPTION 3 in 1 Bedside Commode Standard size DX CVA 1 Each 0 01/04/2019 Active Start: 01-04-2019 COMPOUNDED PRE SCRIPTION Tub Grab Bar that hooks on side of tub DX CVA 1 Each 0 01/04/2019 Active Start: 09-13-2018 COMPOUNDED PRE SCRIPTION Indications: Heart failure, unspecified HF chronicity, unspecified heart failure type (HCC) , Acute on chronic respiratory failure with hypoxemia (HCC) Oxygen Portable tanks (D tanks with carry bag). O2 via nasal cannula at 2 LPM continuous. Dx: Heart failure, unspecified HF chronicity, unspecified heart failure type (HCC) - ICD9: 428.9, ICD10: I50.9 Acute on chronic respiratory failure with hypoxemia (HCC) - ICD9: 518.84, ICD10: J96.21 Pulse oximetry is 94% room air at rest. 85% with ambulation. 97% with O2 via NC at LPM. 1 Each 09/13/2018 Active Start: 09-13-2018 COMPOUNDED PRE SCRIPTION Indications: Heart failure, unspecified HF chronicity, unspecified heart failure type (HCC) , Acute on chronic respiratory failure with hypoxemia (HCC) , Bronchospasm NEBULIZER FOR HOME USE. DX: CHF, bronchospasm. 1 Device 09/13/2018 Active Start: 09-13-2018 COMPOUNDED PRE SCRIPTION Indications: Heart failure, unspecified HF chronicity, unspecified heart failure type (HCC) , Acute on chronic respiratory failure with hypoxemia (HCC) Oxygen Portable tanks (D tanks with carry bag). O2 via nasal cannula at 2 LPM continuous. Dx: Heart failure, unspecified HF chronicity, unspecified heart failure type (HCC) - ICD9: 428.9, ICD10: I50.9 Acute on chronic respiratory failure with hypoxemia (HCC) - ICD9: 518.84, ICD10: J96.21 Pulse oximetry is 94% room air at rest. 85% with ambulation. 97% with O2 via NC at LPM. 1 Each 0 09/13/2018 Active Start: 09-13-2018 COMPOUNDED PRE SCRIPTION Indications: Heart failure, unspecified HF chronicity, unspecified heart failure type (HCC) , Acute on chronic respiratory failure with hypoxemia (HCC) , Bronchospasm NEBULIZER FOR HOME USE. DX: CHF, bronchospasm. 1 Device 0 09/13/2018 Active Comment on above: Oxygen Portable tank s (D tanks with carry bag). O2 via nasal cannula at 2 LPM continuous. Dx: Heart failure, unspecified HF chronicity, unspecified heart failure type (HCC) - ICD9: 428.9, ICD10: I50.9 Acute on chronic respiratory failure with hypoxemia (HCC) - ICD9: 518.84, ICD10: J96.21 Pulse oximetry is 94% room air at rest. 85% with ambulation. 97% with O2 via NC at LPM. NEBULIZER FOR HOME U SE. DX: CHF, bronchospasm. 3 in 1 Bedside Commo de Standard size DX CVA Tub Grab Bar that ho oks on side of tub DX CVA perflutren lipid microspheres 1.3 mL in NaCl (PF) 0.9% 10 mL injection (DEFINITY) (20 sources) Start: 04-16-2021 End: 07-16-2022 perflutren lipid microspheres 1.3 mL in NaCl (PF) 0.9% 10 mL injection (DEFINITY) Start: 04-16-2021 End: 07-16-2022 perflutren lipid microsphere s 1.3 mL in NaCl (PF) 0.9% 10 mL injection (DEFINITY) 125 ml sodium chloride 9 mg/ ml prefilled syringe (20 sources) Start: 04-16-2021 End: 07-16-2022 sodium chloride 0.9 % (flush ) 10 mL (BD POSIFLUSH) Problems Active Problems Problem Classification Problem Date Documented Date Episodic/Chronic Anxiety disorders (20 sources) Mixed anxiety and depressive disorder; Translations: [Other specified anxiety disorders] Onset: 07-20-2016 07-20-2016 Chronic Chronic obstructive pulmonary disease and bronchiectasis (20 sources) Chronic bronchitis; Translations: [Unspecified chronic bronchitis] Onset: 06-10-2023 06-10-2023 Chronic Congestive heart failure; nonhypertensive (20 sources) Congestive heart failure; Translations: [Heart failure, unspecified] Onset: 12-10-2015 Resolved: 09-27-2020 12-12-2015 Chronic Coronary atherosclerosis and other heart disease (20 sources) Ischemic myocardial dysfunction; Translations: [Ischemic cardiomyopathy] Onset: 02-08-2020 02-08-2020 Chronic Deficiency and other anemia (2 sources) Anemia; Translations: [Anemia, unspecified] Episodic Deficiency and other anemia (1 source) Anemia, unspecified; Translations: [Anemia, unspecified type] Onset: 04-10-2024 Episodic Disorders of lipid metabolism (20 sources) Hyperlipidemia; Translations: [Pure hypercholesterolemia] Onset: 12-02-2015 12-02-2015 Chronic Essential hypertension (20 sources) Hypertensive disorder; Translations: [Essential hypertension] Onset: 12-02-2015 12-02-2015 Chronic Genitourinary symptoms and ill-defined conditions (20 sources) Mixed urinary incontinence; Translations: [Mixed incontinence] Onset: 04-10-2015 Resolved: 02-03-2017 02-03-2017 Chronic Late effects of cerebrovascular disease (20 sources) 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; Translations: [Aphasia following unspecified cerebrovascular disease] Onset: 07-20-2016 07-20-2016 Chronic Miscellaneous mental health disorders (2 sources) Abnormal finding on evaluation procedure; Translations: [Mental disorder, not otherwise specified] Onset: 03-14-2024 03-14-2024 Chronic Mood disorders (20 sources) Moderate major depression, single episode; Translations: [Major depressive disorder, single episode, moderate] Onset: 07-15-2021 07-15-2021 Chronic Mycoses (2 sources) Onychomycosis due to dermatophyte ; Translations: [Tinea unguium] Episodic Other circulatory disease (2 sources) Personal history of transient ischemic attack (TIA), and cerebral infarction without residual deficits; Translations: [Personal history of transient ischemic attack (TIA), and cerebral infarction without residual deficits] Onset: 12-02-2015 Episodic Other connective tissue disease (2 sources) Pain of toes of bilateral feet; Translations: [Pain in right toe(s)] Episodic Other connective tissue disease (5 sources) Pain in bilateral legs; Translations: [Pain in right leg] 12-09-2023 Episodic Other diseases of kidney and ureters (20 sources) Renal mass; Translations: [Other specified disorders of kidney and ureter] Onset: 01-22-2018 01-22-2018 Chronic Other diseases of kidney and ureters (1 source) Other specified disorders of kidney and ureter; Translations: [Renal mass] Onset: 04-10-2024 Chronic Other ear and sense organ disorders (1 source) Impacted cerumen of bilateral ears; Translations: [Impacted cerumen, bilateral] 06-10-2023 Episodic Other skin disorders (1 source) Foot callus; Translations: [Corns and callosities] 03-12-2023 Episodic Tsering-; endo-; and myocarditis; cardiomyopathy (except that caused by tuberculosis or sexually transmitted disease) (1 source) Cardiomyopathy; Translations: [Other cardiomyopathies] Chronic Peripheral and visceral atherosclerosis (20 sources) Peripheral vascular disease; Translations: [Peripheral vascular disease, unspecified] Onset: 09-25-2015 09-25-2015 Chronic Respiratory failure; insufficiency; arrest (adult) (20 sources) Acute on chronic hypoxemic respiratory failure; Translations: [Acute and chronic respiratory failure with hypoxia] Onset: 09-12-2018 09-12-2018 Chronic Thyroid disorders (20 sources) Acquired hypothyroidism; Translations: [Hypothyroidism, unspecified] Onset: 07-20-2016 07-20-2016 Chronic Unclassified (2 sources) Cardiomyopathy, unspecified type (HCC) Onset: 12-20-2018 Past or Other Problems Problem Classification Problem Date Documented Date Episodic/Chronic Chronic ulcer of skin (20 sources) Pressure ulcer of sacral region, stage 2; Translations: [Pressure ulcer, lower back] Onset: 03-04-2023 Resolved: 12-09-2023 Chronic Conditions associated with dizziness or vertigo (15 sources) Dizziness and giddiness; Translations: [Dizziness and giddiness] Onset: 08-31-2018 Resolved: 11-14-2018 11-14-2018 Episodic Conduction disorders (20 sources) Left bundle branch block; Translations: [Left bundle-branch block, unspecified] Onset: 08-02-2015 Resolved: 12-09-2023 12-02-2015 Chronic Deficiency and other anemia (20 sources) Iron deficiency anemia; Translations: [Iron deficiency anemia, unspecified] Onset: 08-31-2018 Resolved: 03-05-2023 08-31-2018 Episodic Diabetes mellitus without complication (20 sources) Impaired fasting glycemia; Translations: [Impaired fasting glucose] Onset: 07-25-2016 07-25-2016 Episodic Diseases of white blood cells (20 sources) Leukopenia; Translations: [Decreased white blood cell count, unspecified] Onset: 04-15-2023 Resolved: 12-09-2023 04-15-2023 Chronic Epilepsy; convulsions (20 sources) Localization-related epilepsy; 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, not intractable, without status epilepticus] Onset: 06-06-2015 Resolved: 12-09-2023 12-02-2015 Chronic Epilepsy; convulsions (20 sources) Seizure; Translations: [Unspecified convulsions] Onset: 08-26-2021 04-15-2023 Episodic Genitourinary symptoms and ill-defined conditions (20 sources) Urinary symptoms ; Translations: [Unspecified symptoms and signs involving the genitourinary system] Onset: 03-14-2023 Resolved: 12-09-2023 Episodic Open wounds of extremities (17 sources) Open wound of hand; Translations: [Unspecified open wound of unspecified hand, initial encounter] Onset: 06-10-2023 Resolved: 12-09-2023 06-10-2023 Episodic Other circulatory disease (20 sources) History of cerebrovascular accident; Translations: [Cardiovascular stress test abnormal] Onset: 06-06-2015 12-02-2015 Episodic Other connective tissue disease (20 sources) Recurrent falls ; Translations: [Repeated falls] Onset: 04-15-2023 04-15-2023 Episodic Other connective tissue disease (1 source) Pain in right leg; Translations: [Pain in both lower extremities] Onset: 03-14-2024 Episodic Other connective tissue disease (1 source) Pain in left leg; Translations: [Pain in both lower extremities] Onset: 03-14-2024 Episodic Other diseases of kidney and ureters (20 sources) Renal impairment; Translations: [Disorder of kidney and ureter, unspecified] Onset: 03-04-2023 Episodic Other diseases of kidney and ureters (1 source) Disorder of kidney and ureter, unspecified; Translations: [Kidney insufficiency] Onset: 03-04-2023 Episodic Other injuries and conditions due to external causes (20 sources) Closed injury of head; Translations: [Unspecified injury of head, initial encounter] Onset: 04-15-2023 Resolved: 12-09-2023 04-15-2023 Episodic Other screening for suspected conditions (not mental disorders or infectious disease) (10 sources) Cardiovascular stress test abnormal; Translations: [Abnormal result of other cardiovascular function study] Onset: 08-02-2015 Resolved: 08-14-2021 08-02-2015 Episodic Other skin disorders (15 sources) Sebaceous cyst of skin; Translations: [Sebaceous cyst] Onset: 09-19-2016 Resolved: 06-30-2017 06-30-2017 Episodic Other upper respiratory disease (20 sources) Bronchospasm; Translations: [Acute bronchospasm] Onset: 09-12-2018 Resolved: 12-09-2023 09-12-2018 Episodic Prolapse of female genital organs (14 sources) Third degree uterine prolapse; Translations: [Uterovaginal prolapse] Onset: 04-10-2015 Resolved: 02-03-2017 02-03-2017 Chronic Urinary tract infections (7 sources) Acute urinary tract infection; Translations: [Urinary tract infection, site not specified] Onset: 05-08-2015 Resolved: 02-03-2017 02-03-2017 Episodic Viral infection (17 sources) Disease caused by 2019-nCoV; Translations: [COVID-19] Onset: 06-10-2023 Resolved: 12-09-2023 06-10-2023 Episodic Results Test Name Value Interpretation Reference Range Facility [facility] 06-12-2024 [facility] Telephone (INTMWS) DALIA LOPEZ ([id number]) 1950 F Date Time Provider Department 06/12/24 LENIN BHATT During your visit today, we recorded the following information about you: Kenya Barroso RN 06/12/2024 11:43 AM Signed Son (William) calls to report that patient had a fall a few days ago with worsening pain. He reports today that she is having severe pain and unable to ambulate or dress herself. William is going to call an ambulance to have her taken to [facility] ER for evaluation/treatment. Appointment for today cancelled and William will reschedule once patient is seen in ER. Kenya Barroso RN Allergies As of Date: 06/12/2024 (No Known Allergies) Date Reviewed: 05/24/2024 Reviewed by: Jo Moore MA - Fully Assessed Reason for Visit: Patient Update [1234] Prescriptions as of 06/12/2024 - acetaminophen-codeine (TYLENOL-COD #3) 300-30 mg per tablet Take 1 tablet by mouth at bedtime as needed for pain for up to 30 days. - aspirin, enteric coated (JOSE LOW DOSE ASPIRIN) 81 mg EC tablet Take 1 tablet by mouth once daily. - carvedilol (COREG) 12.5 mg tablet Take 1 tablet by mouth two times a day with meals. - multivitamin tablet Take 1 tablet by mouth once daily. - trospium (SANCTURA) 20 mg tablet Take 1 tablet by mouth two times a day. - sertraline (ZOLOFT) 100 mg tablet Take 2 tablets by mouth once daily. - atorvastatin (LIPITOR) 20 mg tablet Take 1 tablet by mouth once daily. - levETIRAcetam (KEPPRA) 500 mg tablet Take 0.5 tablets by mouth two times a day. - clopidogrel (PLAVIX) 75 mg tablet Take 1 tablet by mouth once daily. - levothyroxine (SYNTHROID) 50 mcg tablet Take 1 tablet by mouth once daily. on an empty stomach 1/2 hour before meal. - albuterol (PROVENTIL) 2.5 mg /3 mL (0.083 %) nebulizer solution Use 3 mL via nebulizer every 6 hours as needed for wheezing/shortness of breath. Use over 5-15minutes. - albuterol HFA (VENTOLIN HFA) 90 mcg/actuation inhaler Inhale 2 Puffs as instructed every 4 hours as needed for wheezing/shortness of breath. - furosemide (LASIX) 20 mg tablet take 1 tablet by mouth once daily if needed - nystatin (MYCOSTATIN) powder Apply 1 application to affected area two times a day. - spironolactone (ALDACTONE) 25 mg tablet Take 1 tablet by mouth once daily. - COMPOUNDED PRESCRIPTION Oxygen Portable tanks (D tanks with carry bag). O2 via nasal cannula at 2 LPM continuous. Dx: Heart failure, unspecified HF chronicity, unspecified heart failure type (HCC) - ICD9: 428.9, ICD10: I50.9 Acute on chronic respiratory failure with hypoxemia (HCC) - ICD9: 518.84, ICD10: J96.21 Pulse oximetry is 94% room air at rest. 85% with ambulation. 97% with O2 via NC at LPM. - COMPOUNDED PRESCRIPTION NEBULIZER FOR HOME USE. DX: CHF, bronchospasm. Problem List As Of Date 06/12/2024 Noted Resolved Aphasia, late effect of cerebrovascular disease*07/20/2016 Late effects of CVA (cerebrovascular accident) *07/20/2016 Essential hypertension [I10] 07/20/2016 Seizure as late effect of cerebrovascular accid*07/20/2016 PVD (peripheral vascular disease) (HCC) [I73.9] 07/20/2016 Acquired hypothyroidism [E03.9] 07/20/2016 Hyperlipidemia [E78.5] 07/20/2016 Anxiety associated with depression [F41.8] 07/20/2016 Impaired fasting glucose [R73.01] 07/25/2016 Sebaceous cyst [L72.3] 09/19/2016 06/30/2017 Mass of left kidney [N28.89] 01/22/2018 Heart failure (HCC) [I50.9] 08/31/2018 09/27/2020 Iron deficiency anemia [D50.9] 08/31/2018 03/05/2023 Dizziness and giddiness [R42] 08/31/2018 11/14/2018 Urinary incontinence [R32] 09/12/2018 Bronchospasm [J98.01] 09/12/2018 12/09/2023 Acute on chronic respiratory failure with hypox*09/12/2018 Ischemic cardiomyopathy [I25.5] 02/08/2020 Chronic systolic (congestive) heart failure (HC*02/08/2020 Current moderate episode of major depressive di*07/15/2021 Sacral decubitus ulcer, stage II (HCC) [L89.152]03/04/2023 12/09/2023 Kidney insufficiency [N28.9] 03/04/2023 Bacteriuria with pyuria [R82.71, R82.81] 03/14/2023 12/09/2023 Arteriosclerosis of coronary artery [I25.10] 04/15/2023 Diagnosed: 04/15/2023 Closed head injury [S09.90XA] 04/15/2023 12/09/2023 Diagnosed: 04/15/2023 History of stroke [Z86.73] 06/06/2015 Diagnosed: 04/15/2023 LBBB (left bundle branch block) [I44.7] 08/02/2015 12/09/2023 Diagnosed: 04/15/2023 Leukopenia [D72.819] 04/15/2023 12/09/2023 Diagnosed: 04/15/2023 Recurrent falls [R29.6] 04/15/2023 Diagnosed: 04/15/2023 Seizure (HCC) [R56.9] 04/15/2023 Diagnosed: 04/15/2023 COVID-19 [U07.1] 06/10/2023 12/09/2023 Diagnosed: 06/10/2023 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 Normal [facility] 04-13-2024 CNPN Telephone (UROLAE) DALIA LOPEZ ([id number]) 1950 F Date Time Provider Department 04/13/24 ZACHARIAH GONZALES JR During your visit today, we recorded the following information about you: Edmund Weeks MA 04/13/2024 8:32 AM Signed Message Received: Yesterday Zachariah Gonzales Jr., MD [facility] Ultrasound is stable Edmund Weeks MA 04/13/2024 8:32 AM Signed Spoke with patient and advised of results. Edmund Weeks MA Allergies As of Date: 04/13/2024 (No Known Allergies) Date Reviewed: 03/14/2024 Reviewed by: Moira Hearn, [employer] TEACHER - Fully Assessed Reason for Visit: Results [95] Prescriptions as of 04/13/2024 - atorvastatin (LIPITOR) 20 mg tablet Take 1 tablet by mouth once daily. - levETIRAcetam (KEPPRA) 500 mg tablet Take 0.5 tablets by mouth two times a day. - acetaminophen-codeine (TYLENOL-COD #3) 300-30 mg per tablet Take 1 tablet by mouth at bedtime as needed for pain for up to 30 days. - clopidogrel (PLAVIX) 75 mg tablet Take 1 tablet by mouth once daily. - levothyroxine (SYNTHROID) 50 mcg tablet Take 1 tablet by mouth once daily. on an empty stomach 1/2 hour before meal. - albuterol (PROVENTIL) 2.5 mg /3 mL (0.083 %) nebulizer solution Use 3 mL via nebulizer every 6 hours as needed for wheezing/shortness of breath. Use over 5-15minutes. - albuterol HFA (VENTOLIN HFA) 90 mcg/actuation inhaler Inhale 2 Puffs as instructed every 4 hours as needed for wheezing/shortness of breath. - furosemide (LASIX) 20 mg tablet take 1 tablet by mouth once daily if needed - nystatin (MYCOSTATIN) powder Apply 1 application to affected area two times a day. - aspirin, enteric coated (JOSE LOW DOSE ASPIRIN) 81 mg EC tablet Take 1 tablet by mouth once daily. - carvedilol (COREG) 12.5 mg tablet Take 1 tablet by mouth twice daily with meals. - multivitamin tablet Take 1 tablet by mouth once daily. - spironolactone (ALDACTONE) 25 mg tablet Take 1 tablet by mouth once daily. - sertraline (ZOLOFT) 100 mg tablet Take 1.5 tablets by mouth once daily. - COMPOUNDED PRESCRIPTION Oxygen Portable tanks (D tanks with carry bag). O2 via nasal cannula at 2 LPM continuous. Dx: Heart failure, unspecified HF chronicity, unspecified heart failure type (HCC) - ICD9: 428.9, ICD10: I50.9 Acute on chronic respiratory failure with hypoxemia (HCC) - ICD9: 518.84, ICD10: J96.21 Pulse oximetry is 94% room air at rest. 85% with ambulation. 97% with O2 via NC at LPM. - COMPOUNDED PRESCRIPTION NEBULIZER FOR HOME USE. DX: CHF, bronchospasm. Problem List As Of Date 04/13/2024 Noted Resolved Aphasia, late effect of cerebrovascular disease*07/20/2016 Late effects of CVA (cerebrovascular accident) *07/20/2016 Essential hypertension [I10] 07/20/2016 Seizure as late effect of cerebrovascular accid*07/20/2016 PVD (peripheral vascular disease) ([facility]) [I73.9] 07/20/2016 Acquired hypothyroidism [E03.9] 07/20/2016 Hyperlipidemia [E78.5] 07/20/2016 Anxiety associated with depression [F41.8] 07/20/2016 Impaired fasting glucose [R73.01] 07/25/2016 Sebaceous cyst [L72.3] 09/19/2016 06/30/2017 Mass of left kidney [N28.89] 01/22/2018 Heart failure (HCC) [I50.9] 08/31/2018 09/27/2020 Iron deficiency anemia [D50.9] 08/31/2018 03/05/2023 Dizziness and giddiness [R42] 08/31/2018 11/14/2018 Urinary incontinence [R32] 09/12/2018 Bronchospasm [J98.01] 09/12/2018 12/09/2023 Acute on chronic respiratory failure with hypox*09/12/2018 Ischemic cardiomyopathy [I25.5] 02/08/2020 Chronic systolic (congestive) heart failure (HC*02/08/2020 Current moderate episode of major depressive di*07/15/2021 Sacral decubitus ulcer, stage II (HCC) [L89.152]03/04/2023 12/09/2023 Kidney insufficiency [N28.9] 03/04/2023 Bacteriuria with pyuria [R82.71, R82.81] 03/14/2023 12/09/2023 Arteriosclerosis of coronary artery [I25.10] 04/15/2023 Closed head injury [S09.90XA] 04/15/2023 12/09/2023 History of stroke [Z86.73] 06/06/2015 LBBB (left bundle branch block) [I44.7] 08/02/2015 12/09/2023 Leukopenia [D72.819] 04/15/2023 12/09/2023 Recurrent falls [R29.6] 04/15/2023 Seizure (HCC) [R56.9] 04/15/2023 COVID-19 [U07.1] 06/10/2023 12/09/2023 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] 06/06/2015 12/09/2023 Open wound of hand [S61.409A] 06/10/2023 12/09/2023 Chronic bronchitis, unspecified chronic bronchi*06/10/2023 Encounter Status:Closed by EDMUND WEEKS on 04/13/24 Normal [facility] Basic metabolic 2000 panelon 04-10-2024 Anion gap [Moles/Vol] 7 mmol/L Low - [facility] Comment on above: Order Comment: Speci men Type: BLOOD SPECIMEN Ordering Facility: [facility] Address: [address] [place] [address] Performed By: #### 2 4321-2 #### [id number] [address] [place] [address] [place] Calcium [Mass/Vol] 9.1 mg/dL Normal 8.5-10.2 [facility] Comment on above: Order Comment: Speci men Type: BLOOD SPECIMEN Ordering Facility: [facility] Address: [address] [place] [address] Performed By: #### 2 4321-2 #### [facility] CLIA [id number] [address] [place] [address] [place] Chloride [Moles/Vol] 104 mmol/L Normal 98-107 [facility] Comment on above: Order Comment: Speci men Type: BLOOD SPECIMEN Ordering Facility: [facility] Address: [address] [place] [address] Performed By: #### 2 4321-2 #### [facility] CLIA [id number] [address] [place] [address] [place] CO2 [Moles/Vol] 27 mmol/L Normal 22-30 [facility] Comment on above: Order Comment: Speci men Type: BLOOD SPECIMEN Ordering Facility: [facility] Address: [address] [place] [address] Performed By: #### 2 4321-2 #### [facility] CLIA [id number] [address] [place] [address] [place] Creatinine [Mass/Vol] 0.84 mg/dL Normal 0.58-0.96 [facility] Comment on above: Order Comment: Speci men Type: BLOOD SPECIMEN Ordering Facility: [facility] Address: [address] [place] [address] Performed By: #### 2 4321-2 #### [facility] CLIA [id number] [address] [place] [address] [place] Creatinine and Glomerular filtration rate.predicted panel (S/P/Bld) 73 mL/min/1.73m??? Normal >=60 [facility] Comment on above: Order Comment: Speci men Type: BLOOD SPECIMEN Ordering Facility: [facility] Address: [address] [place] [address] Result Comment: Grace mated Glomerular Filtration Rate (eGFR) is calculated using the 2020 CKD-EPI creatinine equation. This equation utilizes serum creatinine, sex, and age as parameters. The creatinine assay has traceable calibration to isotope dilution-mass spectrometry. Refer to KDIGO guidelines for clinical interpretation. In patients with unstable renal function, e.g. those with acute kidney injury, the eGFR may not accurately reflect actual GFR. Performed By: #### 2 4321-2 #### [facility] [id number] [address] [place] [address] [place] Glucose [Mass/Vol] 147 mg/dL High 74-99 [facility] Comment on above: Order Comment: Chelly burks Type: BLOOD SPECIMEN Ordering Facility: [facility] Address: [address] [place] [address] Result Comment: The [place] Diabetes Association (ADA) provides guidance for cutoff values for fasting glucose and random glucose. The ADA defines fasting as no caloric intake for at least 8 hours. Fasting plasma glucose results between 100 to 125 mg/dL indicate increased risk for diabetes (prediabetes). Fasting plasma glucose results greater than or equal to 126 mg/dL meet the criteria for diagnosis of diabetes. In the absence of unequivocal hyperglycemia, results should be confirmed by repeat testing. In a patient with classic symptoms of hyperglycemia or hyperglycemic crisis, random plasma glucose results greater than or equal to 200 mg/dL meet the criteria for diagnosis of diabetes. Reference: Standards of Medical Care in Diabetes 2016, [place] Diabetes Association. Diabetes Care. 2016.39(Suppl 1). Performed By: #### 2 4321-2 #### [facility] [id number] [address] [place] [address] [place] Potassium [Moles/Vol] 4.2 mmol/L Normal 3.7-5.1 [facility] Comment on above: Order Comment: Chelly burks Type: BLOOD SPECIMEN Ordering Facility: [facility] Address: [address] [place], [place] [address] Performed By: #### 2 4321-2 #### [facility] CLIA [id number] [address] [place] [address] [place] Sodium [Moles/Vol] 138 mmol/L Normal 136-144 [facility] Comment on above: Order Comment: Speci men Type: BLOOD SPECIMEN Ordering Facility: [facility] Address: [address] [place] [address] Performed By: #### 2 4321-2 #### [facility] CLIA [id number] [address] [place] [address] [place] Urea nitrogen [Mass/Vol] 14 mg/dL Normal 7-21 [facility] Comment on above: Order Comment: Speci men Type: BLOOD SPECIMEN Ordering Facility: [facility] Address: [address] [place] [address] Performed By: #### 2 4321-2 #### [facility] CLIA [id number] [address] [place] [address] [place] CBC panel Auto (Bld)on 04-10 Erythrocyte distribution width (RBC) [Ratio] 15.3 % High 11.5-15.0 [facility] Comment on above: Order Comment: Speci men Type: BLOOD SPECIMEN Ordering Facility: [facility] Address: [address] [place] [address] Performed By: #### 5 8410-2 #### [facility] CLIA [id number] [address] [place] [address] [place] Hematocrit (Bld) [Volume fraction] 31.0 % Low 36.0-46.0 [facility] Comment on above: Order Comment: Speci men Type: BLOOD SPECIMEN Ordering Facility: [facility] Address: [address] [place] [address] Performed By: #### 5 8410-2 #### [facility] CLIA [id number] [address] [place] [address] [place] Hemoglobin (Bld) [Mass/Vol] 9.4 g/dL Low 11.5-15.5 [facility] Comment on above: Order Comment: Speci men Type: BLOOD SPECIMEN Ordering Facility: [facility] Address: [address] [place] [address] Performed By: #### 5 8410-2 #### [facility] CLIA [id number] [address] [place] [address] [place] MCH (RBC) [Entitic mass] 26.5 pg Normal 26.0-34.0 [facility] Comment on above: Order Comment: Speci men Type: BLOOD SPECIMEN Ordering Facility: [facility] Address: [address] [place] [address] Performed By: #### 5 8410-2 #### [facility] CLIA [id number] [address] [place] [address] [place] MCHC (RBC) [Mass/Vol] 30.3 g/dL Low 30.5-36.0 [facility] Comment on above: Order Comment: Speci men Type: BLOOD SPECIMEN Ordering Facility: [facility] Address: [address] [place] [address] Performed By: #### 5 8410-2 #### [facility] [id number] [address] [place] [address] [place] MCV (RBC) [Entitic vol] 87.3 fL Normal 80.0-100.0 [facility] Comment on above: Order Comment: Speci men Type: BLOOD SPECIMEN Ordering Facility: [facility] Address: [address] [place] [address] Performed By: #### 5 8410-2 #### [facility] CLIA [id number] [address] [place] [address] [place] Nucleated RBC (Bld) [#/Vol] 10*3/uL Normal <0.01 [facility] Comment on above: Order Comment: Speci men Type: BLOOD SPECIMEN Ordering Facility: [facility] Address: [address] [place] [address] Performed By: #### 5 8410-2 #### [facility] CLIA [id number] [address] [place] [address] [place] Platelet mean volume (Bld) [Entitic vol] 9.5 fL Normal 9.0-12.7 [facility] Comment on above: Order Comment: Speci men Type: BLOOD SPECIMEN Ordering Facility: [facility] Address: [address] [place] [address] Performed By: #### 5 8410-2 #### [facility] CLIA [id number] [address] [place] [address] [place] Platelets (Bld) [#/Vol] 331 10*3/uL Normal 150-400 [facility] Comment on above: Order Comment: Speci men Type: BLOOD SPECIMEN Ordering Facility: [facility] Address: [address] [place] [address] Performed By: #### 5 8410-2 #### [facility] CLIA [id number] [address] [place] [address] [place] RBC (Bld) [#/Vol] 3.55 10*6/uL Low 3.90-5.20 [facility] Comment on above: Order Comment: Speci men Type: BLOOD SPECIMEN Ordering Facility: [facility] Address: [address] [place] [address] Performed By: #### 5 8410-2 #### [facility] CLIA [id number] [address] [place] [address] [place] WBC (Bld) [#/Vol] 6.73 10*3/uL Normal 3.70-11.00 [facility] Comment on above: Order Comment: Speci men Type: BLOOD SPECIMEN Ordering Facility: [facility] Address: [address] [place] [address] Performed By: #### 5 8410-2 #### [facility] CLIA [id number] [address] [place] [address] [place] Ferritin SerPl-mCncon 2023 Ferritin [Mass/Vol] 18.4 ng/mL Normal 14.7-205.1 [facility] Comment on above: Order Comment: Speci men Type: BLOOD SPECIMEN Ordering Facility: [facility] Address: [address] [place] [address] Performed By: #### 3 0471-7 #### [facility] CLIA [id number] [address] [place] [address] [place] Lipid 1996 panelon Cholesterol [Mass/Vol] 94 mg/dL Normal <200 [facility] Comment on above: Order Comment: Speci men Type: BLOOD SPECIMEN Ordering Facility: [facility] Address: [address] [place] [address] Result Comment: <200 mg/dL, Desirable 200-239 mg/dL, Borderline high >239 mg/dL, High Performed By: #### 3 0471-7 #### [facility] CLIA [id number] [address] [place] [address] [place] Cholesterol in HDL [Mass/Vol] 43 mg/dL Normal >39 [facility] Comment on above: Order Comment: Speci men Type: BLOOD SPECIMEN Ordering Facility: [facility] Address: [address] [place] [address] Result Comment: 40-5 9 mg/dL, Acceptable >59 mg/dL, High: Negative risk factor for coronary heart disease <40 mg/dL, Low: Positive risk factor for coronary heart disease Performed By: #### 3 0471-7 #### [facility] CLIA [id number] [address] [place] [address] [place] Cholesterol in LDL [Mass/Vol] 39 mg/dL Normal <100 [facility] Comment on above: Order Comment: Speci men Type: BLOOD SPECIMEN Ordering Facility: [facility] Address: [address] [place] [address] Result Comment: <100 mg/dL, Optimal 100-129 mg/dL, Near optimal/above optimal 130-159 mg/dL, Borderline high 160-189 mg/dL, High >189 mg/dL, Very high Secondary prevention optimal LDL Cholesterol levels are recommended to be < 70 mg/dL Performed By: #### 3 0471-7 #### [facility] CLIA [id number] [address] [place] [address] [place] Cholesterol in LDL/Cholesterol in HDL [Mass ratio] 0.91 {ratio} Normal <2.54 [facility] Comment on above: Order Comment: Chelly men Type: BLOOD SPECIMEN Ordering Facility: [facility] Address: [address] [place] [address] Result Comment: Refe rence: 1. National Cholesterol Education Program ATP III Guideline At-A-Glance Quick Desk Reference: National Heart, Lung, and Blood [place]. National Institutes of Health. 2001: NIH Publication No. 01-3305. 2. An International Atherosclerosis Society position paper: global recommendations for the management of dyslipidemia: executive summary, Atherosclerosis. 2014: 232(2):410-413. Performed By: #### 3 0471-7 #### [facility] CLIA [id number] [address] [place] [address] [place] Cholesterol in VLDL [Mass/Vol] 12 mg/dL Normal <30 [facility] Comment on above: Order Comment: Chelly men Type: BLOOD SPECIMEN Ordering Facility: [facility] Address: [address] [place] [address] Performed By: #### 3 0471-7 #### [facility] CLIA [id number] [address] [place] [address] [place] Cholesterol non HDL [Mass/Vol] 51 mg/dL Normal <130 [facility] Comment on above: Order Comment: Chelly burks Type: BLOOD SPECIMEN Ordering Facility: [facility] Address: [address] [place] [address] Result Comment: <130 mg/dL, Optimal 130-159 mg/dL, Near optimal/above optimal 160-189 mg/dL, Borderline high 190-219 mg/dL, High >219 mg/dL, Very high Secondary prevention optimal non HDL Cholesterol levels are recommended to be <100 mg/dL Performed By: #### 3 0471-7 #### [facility] CLIA [id number] [address] [place] [address] [place] Cholesterol.total/Ch olesterol in HDL [Mass ratio] 2.19 {ratio} Normal <5.10 [facility] Comment on above: Order Comment: Speci men Type: BLOOD SPECIMEN Ordering Facility: [facility] Address: [address] [place] [address] Performed By: #### 3 0471-7 #### [facility] CLIA [id number] [address] [place] [address] STATES OF [facility] FASTING TIME 10 hrs Normal [facility] Comment on above: Order Comment: Speci men Type: BLOOD SPECIMEN Ordering Facility: [facility] Address: [address] [place] [address] Performed By: #### 3 0471-7 #### [facility] CLIA [id number] [address] [place] [address] [place] Triglyceride [Mass/Vol] 59 mg/dL Normal <150 [facility] Comment on above: Order Comment: Speci men Type: BLOOD SPECIMEN Ordering Facility: [facility] Address: [address] [place] [address] Result Comment: <150 mg/dL, Normal 150-199 mg/dL, Borderline high 200-499 mg/dL, High >499 mg/dL, Very high Performed By: #### 3 0471-7 #### [facility] CLIA [id number] [address] [place] [address] [place] US KIDNEY/BLADDERon 04-10-20 US KIDNEY/BLADDER * * *Final Report* * * DATE OF EXAM: Apr 10 2024 11:17AM U 1055 - US KIDNEY/BLADDER / PROCEDURE REASON: Renal mass * * * * Physician Interpretation * * * * EXAMINATION: RENAL ULTRASOUND CLINICAL HISTORY: Renal mass. Adrenal mass TECHNIQUE: Sonography of the kidneys and urinary bladder was performed. Images were obtained and stored in a permanent archive. MQ: UR_1 COMPARISON: 04/19/[address] scans of 02/24/2018 RESULT: Right Kidney: -Renal length: 9.3 cm -Parenchyma: Normal parenchymal echogenicity. Normal parenchymal thickness. -Collecting system: No hydronephrosis. -Calculus: No echogenic, shadowing calculus. -Lesion: None. 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 Normal parenchymal thickness. -Collecting system: No hydronephrosis. -Calculus: No echogenic, shadowing calculus. -Lesion: Inferior pole partially calcified lesion of 1.9 x 1.4 x 1.9 cm is stable. Bladder: Normal sonographic appearance. IMPRESSION: Stable right adrenal mass Stable left renal mass No hydronephrosis. Associate Financial Planner: [facility] Transcribe Date/Time: Apr 12 2024 10:25A Dictated by : HETAL TATE MD This examination was interpreted and the report reviewed and electronically signed by: HETAL TATE MD on Apr 12 2024 11:01AM EST [id number] N Normal [facility] Vit B12 SerPl-mCncon 024 Cobalamin (Vitamin B12) [Mass/Vol] 422 pg/mL Normal 232-1245 [facility] Comment on above: Order Comment: Speci men Type: BLOOD SPECIMEN Ordering Facility: [facility] Address: [address] [place] [address] Performed By: #### 3 0471-7 #### [facility] CLIA [id number] [address] [place], [place] [address] [place] [address] [place] levETIRAcetam SerPl-mCncon 0 04-10-2024 levETIRAcetam [Mass/Vol] 18.3 ug/mL Normal 12.0-46.0 [facility] Comment on above: Order Comment: Chelly burks Type: BLOOD SPECIMEN Ordering Facility: [facility] Address: [address] [place] [address] Result Comment: This test is not suitable for patients receiving treatment with the drug brivaracetam (Briviact). The drug causes an interference that may lead to falsely elevated levetiracetam results. Reference ranges and high/low indicator flags are provided as general guidelines only. The treating physician must determine appropriate target levels/dosing based on the specific clinical situation. This test was developed and its performance characteristics determined by [facility] [place] ([facility]). It has not been cleared or approved by the FDA. [facility] is regulated under CLIA as qualified to perform high-complexity testing. This test is used for clinical purposes. It should not be regarded as investigational or for research. Performed By: #### 3 0471-7 #### [facility] CLIA [id number] [address] [place] [address] [place] [address] [place] HbA1c (Bld)on 03-15-2024 Average glucose Estimated from glycated hemoglobin (Bld) [Mass/Vol] 143 mg/dL [facility] Comment on above: eAG: (Estimated aver age glucose) is a calculated value from HgbA1c and is livestock sales representative of the average blood glucose level in the last 2-3 month period. HbA1c (Bld) [Mass fraction] 6.6 % High 4.3 - 5.6 % [facility] Comment on above: [place] Diabetes As sociation guidelines indicate that patients with HgbA1c in the range 5.7-6.4% are at increased risk for development of diabetes, and intervention by lifestyle modification may be beneficial. HgbA1c greater or equal to 6.5% is considered diagnostic of diabetes. Interpretation and review of laboratory results Abnormal [facility] CBC panel Auto (Bld)on 03-14 Erythrocyte distribution width (RBC) [Ratio] 15.2 % High 11.5-15.0 [facility] Comment on above: Order Comment: Chelly burks Type: BLOOD SPECIMEN Ordering Facility: [facility] Address: [address] [place] [address] Performed By: #### 3 0471-7 #### [facility] CLIA [id number] [address] [place] [address] [place] Hematocrit (Bld) [Volume fraction] 31.7 % Low 36.0-46.0 [facility] Comment on above: Order Comment: Speci men Type: BLOOD SPECIMEN Ordering Facility: [facility] Address: [address] [place] [address] Performed By: #### 3 0471-7 #### [facility] CLIA [id number] [address] [place] [address] [place] Hemoglobin (Bld) [Mass/Vol] 9.5 g/dL Low 11.5-15.5 [facility] Comment on above: Order Comment: Speci men Type: BLOOD SPECIMEN Ordering Facility: [facility] Address: [address] [place] [address] Performed By: #### 3 0471-7 #### [facility] CLIA [id number] [address] [place] [address] [place] MCH (RBC) [Entitic mass] 27.0 pg Normal 26.0-34.0 [facility] Comment on above: Order Comment: Speci men Type: BLOOD SPECIMEN Ordering Facility: [facility] Address: [address] [place] [address] Performed By: #### 3 0471-7 #### [facility] CLIA [id number] [address] [place] [address] [place] MCHC (RBC) [Mass/Vol] 30.0 g/dL Low 30.5-36.0 [facility] Comment on above: Order Comment: Speci men Type: BLOOD SPECIMEN Ordering Facility: [facility] Address: [address] [place] [address] Performed By: #### 3 0471-7 #### [facility] CLIA [id number] [address] [place] [address] [place] MCV (RBC) [Entitic vol] 90.1 fL Normal 80.0-100.0 [facility] Comment on above: Order Comment: Speci men Type: BLOOD SPECIMEN Ordering Facility: [facility] Address: [address] [place] [address] Performed By: #### 3 0471-7 #### [facility] CLIA [id number] [address] [place] [address] [place] Nucleated RBC (Bld) [#/Vol] 10*3/uL Normal <0.01 [facility] Comment on above: Order Comment: Speci men Type: BLOOD SPECIMEN Ordering Facility: [facility] Address: [address] [place] [address] Performed By: #### 3 0471-7 #### [facility] CLIA [id number] [address] [place] [address] [place] Platelet mean volume (Bld) [Entitic vol] 10.7 fL Normal 9.0-12.7 [facility] Comment on above: Order Comment: Speci men Type: BLOOD SPECIMEN Ordering Facility: [facility] Address: [address] [place] [address] Performed By: #### 3 0471-7 #### [facility] CLIA [id number] [address] [place] [address] [place] Platelets (Bld) [#/Vol] 368 10*3/uL Normal 150-400 [facility] Comment on above: Order Comment: Speci men Type: BLOOD SPECIMEN Ordering Facility: [facility] Address: [address] [place] [address] Performed By: #### 3 0471-7 #### [facility] CLIA [id number] [address] [place] [address] [place] RBC (Bld) [#/Vol] 3.52 10*6/uL Low 3.90-5.20 [facility] Comment on above: Order Comment: Speci men Type: BLOOD SPECIMEN Ordering Facility: [facility] Address: [address] [place] [address] Performed By: #### 3 0471-7 #### [facility] CLIA [id number] [address] [place] [address] [place] WBC (Bld) [#/Vol] 7.75 10*3/uL Normal 3.70-11.00 [facility] Comment on above: Order Comment: Speci men Type: BLOOD SPECIMEN Ordering Facility: [facility] Address: [address] [place] [address] Performed By: #### 3 0471-7 #### [facility] CLIA [id number] [address] [place] [address] [place] CNOVon 03-14-2024 CNOV Office Visit (INTMWS ) DALIA LOPEZ ([id number]) 1950 F Date Time Provider Department 03/14/24 2:20 PM MOIRA HEARN INTMWS During your visit today, we recorded the following information about you: Pulse Respiration Blood pressure Weight 90/minute 18/minute 98/56 68 kg Height 1.595 m Moira Hearn, [employer].PROTOZOOLOGY TEACHER 03/15/2024 7:25 AM Signed Dalia Mcmahon John is a 73 year old female here for a Medicare wellness visit. Medicare Health Risk Assessment General Health Fair Exercise: Minutes/Day 0 min Exercise: Days/Week 0 days Alcohol: Daily Use Never Alcohol: Drinks/Day Patient does not drink Alcohol: 6 or more drinks Never Feel off balance Yes Concerns: Teeth/Dentures No Concerns: Sexual function No Troubled by feelings None of the above Frequency: Eating healthy diet More than half the days ADLs requiring help Grocery shopping; Taking medications; Cooking; Sitting or standing; Housework; Handling finances; Driving Safety precautions in home/vehicle Yes (no grab bars, don't work in her shower) Smoke, vape, chews tobacco No Difficulty hearing Yes Difficulty seeing Yes Current Providers Specialists: I have reviewed specialist-related care of the patient in the medical record. Current care team: Patient Care Team: Lenin Bhatt MD as PCP - General Outside specialists seen: sewage reticulation drafting officer- Dr. Jonathan Aguila, neurology- Dr. Aramis Cheng Medical/Family history review Reviewed and updated problem list, medical/surgical/fami ly/social history, medications, and allergies. Opioid use review Opioid Medications (last 90 days) 01/09/2024 23:59 01/10/2024 00:00 03/14/2024 Opioid Medications acetaminophen with codeine 1 tablet AT BEDTIME ORAL -Discontinued No sig acetaminophen with codeine 1 tablet AT BEDTIME ORAL 1 tablet AT BEDTIME ORAL-Discontinued acetaminophen with codeine 1 tablet AT BEDTIME PRN ORAL Details Outpatient prescription Medication marked as long-term Prescribed acetaminophen with codeine (last 90 days) Does patient have risk factors for opioid abuse? No Pain overview Current pain concerns and treatment plan reviewed. Patient stable on current treatment plan. Anxiety/Depression screening PHQ-2 Score: 0 Recommendation: no further intervention at this time Cognitive screening Mini Cog Score: 0 Cognitive screening reviewed and Recommended referral for further evaluation (score 0-2). Referred to geriatrics Functional Observation Was the patient's Timed Up AND Go test unsteady or ? 12 seconds? No Advance Care Planning Patient was not able to provide a surrogate decision maker or written advance directives Measurements BP 98/56 Pulse 90 Resp 18 Ht 5' 2.795 (1.60m) Wt 150 lb (68.0kg) SpO2 96% BMI 26.75 kg/(m2). Vision Screening: Follows with optometry/ophthalmolo gy Assessment/Plan Medicare annual wellness visit, subsequent (Z00.00) - Counseled on healthy diet and regular exercise - Fall avoidance information provided - Personalized prevention plan provided Additional Concerns The following concerns were also discussed with the patient: Patient is here today with her son whom she lives with. Her BP is low today which it has been on the lower side for some time now. She reports occasional positional lightheadedness, mostly in the mornings. Denies chest pain, palpitations, SOB, edema, syncope or feeling faint. She needs a refill of Tylenol with codeine for chronic BLE pain secondary to PVD. She takes this a few times a week and it is effective at managing her pain. without side effects. Taking all other medications as prescribed, denies side effects. PHYSICAL EXAM BP 98/56 Pulse 90 Resp 18 Ht 159.5 cm (5' 2.8 ) Wt 68 kg (150 lb) SpO2 96% BMI 26.75 kg/m? GENERAL: well appearing, alert, in no acute distress CARDIOVASCULAR: regular rate and rhythm. No murmur, rubs or gallops. PULMONARY: clear to auscultation, no wheezing, rhonchi, or crackles ASSESSMENT/PLAN: 1. Medicare annual wellness visit, subsequent - ICD9: V70.0, ICD10: Z00.00 (primary diagnosis) See medicare wellness note 2. Pain in both lower extremities - ICD9: 729.5, ICD10: M79.604, M79.605 Chronic pain secondary to PVD. Manageable with Tylenol with codeine - Prescribed Morphine Equivalent Daily Dose (MEDD): 0 - Course of treatment, patient's response and adherence to the prescribed treatment plan reviewed, including non-pharmacological and non-opioid treatment modalities. Rationale for continuing opioid treatment: improved pain and function. Benefits of opioid therapy outweigh the risks. - Reviewed opioid side effects, risks including accidental overdose, addiction and abuse with patient PDMP website checked and validated. All prescriptions have been APPROPRIATELY filled. No suspicious activity was identified. 03/15/2024 by Moira Hearn, (more content not included)... Normal [facility] Comprehensive metabolic 2000 panelon 03-14-2024 Albumin [Mass/Vol] 3.8 g/dL Low 3.9-4.9 [facility] Comment on above: Order Comment: Speci men Type: BLOOD SPECIMEN Ordering Facility: [facility] Address: [address] [place] [address] Performed By: #### 3 0471-7 #### [facility] CLIA [id number] [address] [place] [address] [place] [address] [place] ALP [Catalytic activity/Vol] 60 U/L Normal 34-123 [facility] Comment on above: Order Comment: Speci men Type: BLOOD SPECIMEN Ordering Facility: [facility] Address: [address] [place] [address] Performed By: #### 3 0471-7 #### [facility] CLIA [id number] [address] [place] [address] [place] ALT [Catalytic activity/Vol] 14 U/L Normal 7-38 [facility] Comment on above: Order Comment: Speci men Type: BLOOD SPECIMEN Ordering Facility: [facility] Address: [address] [place] [address] Performed By: #### 3 0471-7 #### [facility] CLIA [id number] [address] [place] [address] [place] Anion gap [Moles/Vol] 13 mmol/L Normal 8-15 [facility] Comment on above: Order Comment: Speci men Type: BLOOD SPECIMEN Ordering Facility: [facility] Address: [address] [place] [address] Performed By: #### 3 0471-7 #### [facility] CLIA [id number] [address] [place] [address] [place] AST [Catalytic activity/Vol] 19 U/L Normal 13-35 [facility] Comment on above: Order Comment: Speci men Type: BLOOD SPECIMEN Ordering Facility: [facility] Address: [address] [place] [address] Performed By: #### 3 0471-7 #### [facility] CLIA [id number] [address] [place] [address] [place] Bilirubin [Mass/Vol] 0.2 mg/dL Normal 0.2-1.3 [facility] Comment on above: Order Comment: Speci men Type: BLOOD SPECIMEN Ordering Facility: [facility] Address: [address] [place] [address] Performed By: #### 3 0471-7 #### [facility] CLIA [id number] [address] [place] [address] [place] Calcium [Mass/Vol] 10.5 mg/dL High 8.5-10.2 [facility] Comment on above: Order Comment: Speci men Type: BLOOD SPECIMEN Ordering Facility: [facility] Address: [address] [place] [address] Performed By: #### 3 0471-7 #### [facility] CLIA [id number] [address] [place] [address] [place] Chloride [Moles/Vol] 101 mmol/L Normal 98-107 [facility] Comment on above: Order Comment: Speci men Type: BLOOD SPECIMEN Ordering Facility: [facility] Address: [address] [place] [address] Performed By: #### 3 0471-7 #### [facility] CLIA [id number] [address] [place] [address] [place] CO2 [Moles/Vol] 26 mmol/L Normal 22-30 [facility] Comment on above: Order Comment: Speci men Type: BLOOD SPECIMEN Ordering Facility: [facility] Address: [address] [place] [address] Performed By: #### 3 0471-7 #### [facility] CLIA [id number] [address] [place] [address] [place] Creatinine [Mass/Vol] 1.63 mg/dL High 0.58-0.96 [facility] Comment on above: Order Comment: Speci men Type: BLOOD SPECIMEN Ordering Facility: [facility] Address: [address] [place] [address] Performed By: #### 3 0471-7 #### [facility] CLIA [id number] [address] [place] [address] [place] Creatinine and Glomerular filtration rate.predicted panel (S/P/Bld) 33 mL/min/1.73m??? Low >=60 [facility] Comment on above: Order Comment: Chelly burks Type: BLOOD SPECIMEN Ordering Facility: [facility] Address: [address] [place] [address] Result Comment: Grace mated Glomerular Filtration Rate (eGFR) is calculated using the 2020 CKD-EPI creatinine equation. This equation utilizes serum creatinine, sex, and age as parameters. The creatinine assay has traceable calibration to isotope dilution-mass spectrometry. Refer to KDIGO guidelines for clinical interpretation. In patients with unstable renal function, e.g. those with acute kidney injury, the eGFR may not accurately reflect actual GFR. Performed By: #### 3 0471-7 #### [facility] CLIA [id number] [address] [place] [address] [place] Glucose [Mass/Vol] 122 mg/dL High 74-99 [facility] Comment on above: Order Comment: Chelly burks Type: BLOOD SPECIMEN Ordering Facility: [facility] Address: [address] [place] [address] Result Comment: The [place] Diabetes Association (ADA) provides guidance for cutoff values for fasting glucose and random glucose. The ADA defines fasting as no caloric intake for at least 8 hours. Fasting plasma glucose results between 100 to 125 mg/dL indicate increased risk for diabetes (prediabetes). Fasting plasma glucose results greater than or equal to 126 mg/dL meet the criteria for diagnosis of diabetes. In the absence of unequivocal hyperglycemia, results should be confirmed by repeat testing. In a patient with classic symptoms of hyperglycemia or hyperglycemic crisis, random plasma glucose results greater than or equal to 200 mg/dL meet the criteria for diagnosis of diabetes. Reference: Standards of Medical Care in Diabetes 2016, [place] Diabetes Association. Diabetes Care. 2016.39(Suppl 1). Performed By: #### 3 0471-7 #### [facility] CLIA [id number] [address] [place] [address] [place] Potassium [Moles/Vol] 5.4 mmol/L High 3.7-5.1 [facility] Comment on above: Order Comment: Chelly burks Type: BLOOD SPECIMEN Ordering Facility: [facility] Address: [address] [place] [address] Performed By: #### 3 0471-7 #### [facility] CLIA [id number] [address] [place] [address] [place] Protein [Mass/Vol] 7.1 g/dL Normal 6.3-8.0 [facility] Comment on above: Order Comment: Speci men Type: BLOOD SPECIMEN Ordering Facility: [facility] Address: [address] [place] [address] Performed By: #### 3 0471-7 #### [facility] CLIA [id number] [address] [place] [address] [place] Sodium [Moles/Vol] 140 mmol/L Normal 136-144 [facility] Comment on above: Order Comment: Speci men Type: BLOOD SPECIMEN Ordering Facility: [facility] Address: [address] [place] [address] Performed By: #### 3 0471-7 #### [facility] CLIA [id number] [address] [place] [address] [place] Urea nitrogen [Mass/Vol] 46 mg/dL High 7-21 [facility] Comment on above: Order Comment: Speci men Type: BLOOD SPECIMEN Ordering Facility: [facility] Address: [address] [place] [address] Performed By: #### 3 0471-7 #### [facility] CLIA [id number] [address] [place] [address] [place] HbA1c (Bld)on 03-14-2024 Average glucose Estimated from glycated hemoglobin (Bld) [Mass/Vol] 143 mg/dL Normal [facility] Comment on above: Order Comment: Speci men Type: BLOOD SPECIMEN Ordering Facility: [facility] Address: [address] [place] [address] Result Comment: eAG: (Estimated average glucose) is a calculated value from HgbA1c and is livestock sales representative of the average blood glucose level in the last 2-3 month period. Performed By: #### 5 5454-3 #### [facility] CLIA [id number] [address] [place] [address] [place] HbA1c (Bld) [Mass fraction] 6.6 % High 4.3-5.6 [facility] Comment on above: Order Comment: Chelly burks Type: BLOOD SPECIMEN Ordering Facility: [facility] Address: [address] [place] [address] Result Comment: [place] Diabetes Association guidelines indicate that patients with HgbA1c in the range 5.7-6.4% are at increased risk for development of diabetes, and intervention by lifestyle modification may be beneficial. HgbA1c greater or equal to 6.5% is considered diagnostic of diabetes. Performed By: #### 5 5454-3 #### [facility] CLIA [id number] [address] [place] [address] [place] LIPID PANEL, NONFASTINGon Cholesterol [Mass/Vol] 111 mg/dL Normal <200 [facility] Comment on above: Order Comment: Chelly burks Type: BLOOD SPECIMEN Ordering Facility: [facility] Address: [address] [place] [address] Result Comment: <200 mg/dL, Desirable 200-239 mg/dL, Borderline high >239 mg/dL, High Performed By: #### 5 8410-2 #### [facility] [id number] [address] [place] [address] [place] HDL CHOLESTEROL, NF 42 mg/dL Normal >39 [facility] Comment on above: Order Comment: Chelly burks Type: BLOOD SPECIMEN Ordering Facility: [facility] Address: [address] [place] [address] Result Comment: 40-5 9 mg/dL, Acceptable >59 mg/dL, High: Negative risk factor for coronary heart disease <40 mg/dL, Low: Positive risk factor for coronary heart disease Performed By: #### 5 8410-2 #### [facility] CLIA [id number] [address] [place] [address] [place] LDL CHOLESTEROL, NF 50 mg/dL Normal <100 [facility] Comment on above: Order Comment: Chelly burks Type: BLOOD SPECIMEN Ordering Facility: [facility] Address: [address] [place] [address] Result Comment: <100 mg/dL, Optimal 100-129 mg/dL, Near optimal/above optimal 130-159 mg/dL, Borderline high 160-189 mg/dL, High >189 mg/dL, Very high Secondary prevention optimal LDL Cholesterol levels are recommended to be < 70 mg/dL Performed By: #### 5 8410-2 #### [facility] CLIA [id number] [address] [place] [address] [place] LDL/HDL RATIO, NF 1.19 mg/dL Normal <2.54 [facility] Comment on above: Order Comment: Chelly burks Type: BLOOD SPECIMEN Ordering Facility: [facility] Address: [address] [place] [address] Result Comment: Refjack grovece: 1. National Cholesterol Education Program ATP III Guideline At-A-Glance Quick Desk Reference: National Heart, Lung, and Blood [place]. National Institutes of Health. 2001: NIH Publication No. 01-3305. 2. An International Atherosclerosis Society position paper: global recommendations for the management of dyslipidemia: executive summary, Atherosclerosis. 2014: 232(2):410-413. Performed By: #### 5 8410-2 #### [facility] CLIA [id number] [address] [place] [address] [place] NON HDL CHOL, NF 69 mg/dL Normal <130 [facility] Comment on above: Order Comment: Chelly burks Type: BLOOD SPECIMEN Ordering Facility: [facility] Address: [address] [place] [address] Result Comment: <130 mg/dL, Optimal 130-159 mg/dL, Near optimal/above optimal 160-189 mg/dL, Borderline high 190-219 mg/dL, High >219 mg/dL, Very high Secondary prevention optimal non HDL Cholesterol levels are recommended to be <100 mg/dL Performed By: #### 5 8410-2 #### [facility] CLIA [id number] [address] [place] [address] [place] T CHOL/HDL RATIO NF 2.64 mg/dL Normal <5.10 [facility] Comment on above: Order Comment: Speci men Type: BLOOD SPECIMEN Ordering Facility: [facility] Address: [address] [place] [address] Performed By: #### 5 8410-2 #### [facility] CLIA [id number] [address] [place] [address] [place] TRIGLYCERIDES, NF 93 mg/dL Normal <150 [facility] Comment on above: Order Comment: Speci men Type: BLOOD SPECIMEN Ordering Facility: [facility] Address: [address] [place] [address] Result Comment: <150 mg/dL, Normal 150-199 mg/dL, Borderline high 200-499 mg/dL, High >499 mg/dL, Very high Performed By: #### 5 8410-2 #### [id number] [address] [place] [address] [place] VLDL CHOLESTEROL, NF 19 mg/dL Normal <30 [facility] Comment on above: Order Comment: Speci men Type: BLOOD SPECIMEN Ordering Facility: [facility] Address: [address] [place] [address] Performed By: #### 5 8410-2 #### [facility] CLIA [id number] [address] [place] [address] [place] TSH SerPl-aCncon 03-14-2024 TSH Qn 3.590 m[IU]/L Normal 0.270-4.200 [facility] Comment on above: Order Comment: Speci men Type: BLOOD SPECIMEN Ordering Facility: [facility] Address: [address] [place] [address] Performed By: #### 5 8410-2 #### [facility] CLIA [id number] [address] [place] [id number] [place] levETIRAcetam SerPl-mCncon 0 03-14-2024 levETIRAcetam [Mass/Vol] 57.3 ug/mL High 12.0-46.0 [facility] Comment on above: Order Comment: Speci men Type: BLOOD SPECIMEN Ordering Facility: [facility] Address: [address] [place] [address] Result Comment: This test is not suitable for patients receiving treatment with the drug brivaracetam (Briviact). The drug causes an interference that may lead to falsely elevated levetiracetam results. Reference ranges and high/low indicator flags are provided as general guidelines only. The treating physician must determine appropriate target levels/dosing based on the specific clinical situation. This test was developed and its performance characteristics determined by [facility]'s [facility] Pathology and Laboratory Medicine [place] ([facility]). It has not been cleared or approved by the FDA. [facility] is regulated under CLIA as qualified to perform high-complexity testing. This test is used for clinical purposes. It should not be regarded as investigational or for research. Performed By: #### 3 0471-7 #### [facility] CLIA [id number] [address] [place], [place] [address] [address] [place] CNOVon 12-09-2023 CNOV Office Visit (INTMWS ) DALIA LOPEZ ([id number]) 1950 F Date Time Provider Department 12/09/23 9:00 AM ELNIN BHATT INTMWS During your visit today, we recorded the following information about you: Temperature Pulse Respiration Blood pressure 98.4 degrees 76/minute 20/minute 118/60 Weight 70.8 kg Lenin Bhatt MD 12/09/2023 9:58 AM Signed This note was created using NoteWriter. Subjective Dalia Lopez is a 73 year old female here with her son William. She's had some edema the past few weeks with no change in dyspnea. What was more bothersome was moderate throbbing pain in both legs equally at night. She had known PAD. She was on multiple medications, including seizure medications. She was taking furosemide as needed. She used oxygen continuously at home. Review of Systems Constitutional: Negative for fever and unexpected weight change. Respiratory: Negative for cough, shortness of breath and wheezing. Cardiovascular: Positive for leg swelling. Negative for chest pain and palpitations. Gastrointestinal: Negative. Musculoskeletal: Positive for myalgias. Skin: Negative for wound. 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 Essential Hypertension Seizure As Late Effect of Cerebrovascular Accident (Cva) ([facility]) Pvd (Peripheral Vascular Disease) ([facility]) Acquired Hypothyroidism Hyperlipidemia Anxiety Associated With Depression Impaired Fasting Glucose Mass of Left Kidney Urinary Incontinence Bronchospasm Acute On Chronic Respiratory Failure With Hypoxemia (Hcc) Ischemic Cardiomyopathy Chronic Systolic (Congestive) Heart Failure (Hcc) Current Moderate Episode of Major Depressive Disorder ([facility]) Sacral Decubitus Ulcer, Stage II (Hcc) Kidney Insufficiency Bacteriuria With Pyuria Arteriosclerosis of Coronary Artery Closed Head Injury History of Stroke Lbbb (Left Bundle Branch Block) Leukopenia Recurrent Falls Seizure (Hcc) Covid-19 Localization-Related Epilepsy ([facility]) Open Wound of Hand Chronic Bronchitis, Unspecified Chronic Bronchitis Type ([facility]) Social History Tobacco Use Smoking status: Former Types: Cigarettes Quit date: 03/30/2013 Years since quittin.7 Smokeless tobacco: Never Vaping Use Vaping Use: Never used Substance Use Topics Alcohol use: No Drug use: No Current Outpatient Medications Medication Sig furosemide (LASIX) 20 mg tablet take 1 tablet by mouth once daily if needed nystatin (MYCOSTATIN) powder Apply 1 application to affected area two times a day. levETIRAcetam (KEPPRA) 500 mg tablet Take 1 tablet by mouth two times a day. aspirin, enteric coated (JOSE LOW DOSE ASPIRIN) 81 mg EC tablet Take 1 tablet by mouth once daily. atorvastatin (LIPITOR) 20 mg tablet Take 1 tablet by mouth once daily. carvedilol (COREG) 12.5 mg tablet Take 1 tablet by mouth twice daily with meals. multivitamin tablet Take 1 tablet by mouth once daily. lisinopril (ZESTRIL) 5 mg tablet Take 1 tablet by mouth once daily. spironolactone (ALDACTONE) 25 mg tablet Take 1 tablet by mouth once daily. sertraline (ZOLOFT) 100 mg tablet Take 1.5 tablets by mouth once daily. clopidogrel (PLAVIX) 75 mg tablet Take 1 tablet by mouth once daily. levothyroxine (SYNTHROID) 50 mcg tablet Take 1 tablet by mouth once daily. on an empty stomach 1/2 hour before meal. albuterol (PROVENTIL) 2.5 mg /3 mL (0.083 %) nebulizer solution Use 3 mL via nebulizer every 6 hours as needed for wheezing/shortness of breath. Use over 5-15minutes. albuterol HFA (VENTOLIN HFA) 90 mcg/actuation inhaler Inhale 2 Puffs as instructed every 4 hours as needed for wheezing/shortness of breath. COMPOUNDED PRESCRIPTION Oxygen Portable tanks (D tanks with carry bag). O2 via nasal cannula at 2 LPM continuous. Dx: Heart failure, unspecified HF chronicity, unspecified heart failure type (HCC) - ICD9: 428.9, ICD10: I50.9 Acute on chronic respiratory failure with hypoxemia (HCC) - ICD9: 518.84, ICD10: J96.21 Pulse oximetry is 94% room air at rest. 85% with ambulation. 97% with O2 via NC at LPM. COMPOUNDED PRESCRIPTION NEBULIZER FOR HOME USE. DX: CHF, bronchospasm. No current facility-administered medications for this visit. Objective Blood Pressure 118/60 (BP Site: Left Arm, BP Position: Sitting, BP Cuff Size: Large Adult) Pulse 76 Temperature 36.9 ?C (98.4 ?F) (Temporal) Respiration 20 Weight 70.8 kg (156 lb) Body Mass Index 26.78 kg/m? Physical Exam Constitutional: General: She is not in acute distress. Appearance: She is not ill-appearing or diaphoretic. HENT: Head: Normocephalic. Cardiovascular: Rate and Rhythm: Normal rate and regular rhythm. Heart sounds: No murmur heard. No gallop. Pulmonary: Effort: No respiratory distress. Breath sounds: No wheezi (more content not included)... Normal [facility] CNOVon 09-29-2023 CNOV Office Visit (CARDWW ) DALIA LOPEZ ([id number]) 1950 F Date Time Provider Department 09/29/23 2:00 PM JONATHAN AGUILA During your visit today, we recorded the following information about you: Pulse Blood pressure Weight Height 87/minute 120/70 72.7 kg 1.626 m Jonathan Aguila MD 09/29/2023 2:35 PM Signed Chief Complaint: Patient presents with: Follow Up: Chronic Heart Failure History of Present Illness: Dalia Lopez is a 70 year old female with history of ischemic and non-ischemic cardiomyopathy with chronic systolic and diastolic heart failure who had Covid in August of this year and past history of CVA has come to establish with me as 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 Patient also has a history of COPD with chronic hypoxic respiratory failure on 2 L home oxygen. 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 The second stroke occurred when her Plavix was discontinued for the hysterectomy. She also has occlusive aortoiliac disease as being medically managed. She had an abnormal stress test in 2019 following which he underwent a left heart catheterization which showed only minimal luminal irregularities. She is accompanied with her son today. Patient also has been a former smoker. 09/29/2023: Patient denies any chest pain shortness of breath palpitations lightheadedness syncope orthopnea PND or leg edema. PAST MEDICAL HISTORY Diagnosis Date Abnormal stress test Acquired hypothyroidism 07/20/2016 Anxiety associated with depression 07/20/2016 Aphasia, late effect of cerebrovascular disease 07/20/2016 ASHD (arteriosclerotic heart disease) Bundle branch block, left CAD (coronary artery disease) Cardiomyopathy (HCC) CHF (congestive heart failure) (HCC) COVID-19 08/28/2020 Decubitus ulcer, stage 2 ([facility]) 09/15/2015 Essential hypertension 07/20/2016 Gram-negative sepsis, unspecified ([facility]) 09/15/2015 UTI HTN (hypertension) Hyperlipidemia 07/20/2016 Impaired fasting glucose 07/25/2016 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 Aramis Nielson, Neurology Seizure disorder ([facility]) 03/2013 Shortness of breath Stroke (cerebrum) ([facility]) 2015 recurrent Stroke ([facility]) 04/22/2013 aphasia,left facial droop PAST SURGICAL HISTORY Procedure Laterality Date HERNIA REPAIR HX 1984 HYSTERECTOMY HX 12/02/2015 vag.hyst,[place] colpocleisis, sub urethral sling LEFT HEART CATH 12/20/2018 REM LESION NEC,HND,SCAL 2.1-3.0CM Right 09/19/2016 Removal right retroauricular nimesh cyst FAMILY HISTORY Problem Relation Age of Onset Heart Failure Mother Kidney Disease Mother other (Other) Mother TIA Cancer Father COPD Sister Cancer Brother No Known Problems Brother Emphysema Son other (Other) Son scoliosis No Known Problems Son No Known Problems Son Social History Tobacco Use Smoking status: Former Types: Cigarettes Quit date: 03/30/2013 Years since quittin.5 Smokeless tobacco: Never Vaping Use Vaping Use: Never used Substance Use Topics Alcohol use: No Drug use: No Current Outpatient Medications Medication Sig levETIRAcetam (KEPPRA) 500 mg tablet Take 1 tablet by mouth two times a day. aspirin, enteric coated (JOSE LOW DOSE ASPIRIN) 81 mg EC tablet Take 1 tablet by mouth once daily. atorvastatin (LIPITOR) 20 mg tablet Take 1 tablet by mouth once daily. carvedilol (COREG) 12.5 mg tablet Take 1 tablet by mouth twice daily with meals. multivitamin tablet Take 1 tablet by mouth once daily. lisinopril (ZESTRIL) 5 mg tablet Take 1 tablet by mouth once daily. spironolactone (ALDACTONE) 25 mg tablet Take 1 tablet by mouth once daily. sertraline (ZOLOFT) 100 mg tablet Take 1.5 tablets by mouth once daily. clopidogrel (PLAVIX) 75 mg tablet Take 1 tablet by mouth once daily. levothyroxine (SYNTHROID) 50 mcg tablet Take 1 tablet by mouth once daily. on an empty stomach 1/2 hour before meal. albuterol (PROVENTIL) 2.5 mg /3 mL (0.083 %) nebulizer solution Use 3 mL via nebulizer every 6 hours as needed for wheezing/shortness of breath. Use over 5-15minutes. albuterol HFA (VENTOLIN HFA) 90 mcg/actuation inhaler Inhale 2 Puffs as instructed every 4 hours as needed for wheezing/shortness of breath. COMPOUNDED PRESCRIPTION Oxygen Portable tanks (D tanks with carry bag). O2 via nasal cannula at 2 LPM continuous. Dx: Heart failure, unspecified HF chronicity, unspecified heart failure type (HCC) - ICD9: 428.9, ICD10: I50.9 Acute on chronic respiratory failure with hypoxemia (HCC) - ICD9: 518.84, ICD10: J96.21 Pulse oximetry is 94% room air at rest. 85% with ambulation. 97% wit (more content not included)... Normal [facility] [id number] 09-29-2023 ECG01 Ventricular Rate : 8 4 BPM Atrial Rate : 84 BPM P-R Interval : 160 ms QRS Duration : 116 ms Q-T Interval : 406 ms QTC Calculation(Bazett) : 479 ms Calculated P Schulenburg : 108 degrees Calculated R Schulenburg : -27 degrees Calculated T Schulenburg : 44 degrees NORMAL SINUS RHYTHM ANTERIOR MYOCARDIAL INFARCTION , AGE UNDETERMINED ABNORMAL ECG WHEN COMPARED WITH ECG OF 10-JUN-2022 12:13, THE AXIS SHIFTED LEFT Confirmed by MD AGUILA VINAY ([id number]) on 09/29/2023 2:39:48 PM NAME : DALIA LOPEZ PID : [id number] : 1950 Gender : Female Race : ORD : Procedure Date : Sep 29 2023 14:17:46 Edit Date : Sep 29 2023 14:39:53 Diagnosis: NORMAL SINUS RHYTHM ANTERIOR MYOCARDIAL INFARCTION , AGE UNDETERMINED ABNORMAL ECG WHEN COMPARED WITH ECG OF 10-JUN-2022 12:13, THE AXIS SHIFTED LEFT Confirmed by MD AGUILA VINAY ([id number]) on 09/29/2023 2:39:48 PM Test Reason : Location : [facility] : [facility] Overread By : MD AGUILA VINAY Edited By : MD AGUILA VINAY Referred By : , Acquired by : Kia Cruz, Leia [facility] US KIDNEY/BLADDERon 04-19-20 [facility] RUSSELL SCREENINGon 03-22-2023 [facility] XR CHEST 2V FRONTAL/LATon [facility] ECG COMPLETEon 06-10-2022 Atrial Rate 78 BPM [facility] Calculated P Schulenburg 82 degrees [facility] Calculated R Schulenburg 24 degrees [facility] Calculated T Schulenburg 57 degrees [facility] P-R Interval 150 ms [facility] QRS Duration 120 ms [facility] QT Interval 430 ms [facility] QTC Calculation (Bazett) 490 ms [facility] Ventricular Rate 78 BPM [facility] UA DIP, URINE (POC)on 2021 BILIRUBIN UA (POCT) Negative Negative [facility] CLARITY UA (POCT) Clear [facility] COLOR UA (POCT) Yellow [facility] GLUCOSE UA (POCT) Negative Negative mg/dL [facility] HEMOGLOBIN/BLOOD UA (POCT) Moderate Abnormal Negative [facility] KETONE UA (POCT) Negative Negative mg/dL [facility] LEUKOCYTES UA (POCT) Small Abnormal Negative [facility] NITRITE UA (POCT) Positive Abnormal Negative [facility] PH UA (POCT) 5.5 4.5 - 8.0 [facility] Protein Ql (U) Negative Negative mg/dL [facility] SPECIFIC GRAVITY UA (POCT) 1.025 1.005 - 1.030 [facility] UROBILINOGEN UA (POCT) 0.2 E.U./dL Normal E.U./dL [facility] XR HAND MINIMUM 3 VIEWS RIGH Ton 10-30-2019 XR HAND MINIMUM 3 VIEWS RIGHT ORIGINAL XR HAND 3 VIEWS RIGHT CLINICAL STATEMENT: right hand laceration. COMPARISON: None FINDINGS: No acute fracture or dislocation is identified. The joint spaces are maintained. There is no radiopaque foreign body. IMPRESSION: No acute fracture or dislocation. I have personally reviewed the images of this examination and agree with the resident's findings and interpretation. Interpreted By: Douglas Adrian MD Preliminary Report By: Nola Ng MD Electronically Signed By: Douglas Adrian MD Dictated Date: 10/30/2019 7:26:57 PM Prelim Date: 10/30/2019 7:27:58 PM Sign Date: 10/30/2019 7:48:16 PM Ordering Provider:Indio Dupree [facility] ([place]) .Auto Diffon 08-14-2019 Ammonia (P) [Mass/Vol] 0.60 10 3/mcL Normal 0.15-1.00 [facility] ([place]) Comment on above: Performed By: #### C LIZET BILL, ANEU #### [place] [address] #### BMP, TROP, PBNP, GFR #### [address] [address] Basophils (Bld) [#/Vol] 0.10 10 3/mcL Normal 0.00-0.19 [facility] ([place]) Comment on above: Performed By: #### C LIZET BILL, ANEU #### [place] [address] #### BMP, TROP, PBNP, GFR #### [address] [address] Basophils/100 WBC (Bld) 0.8 % Normal 0.0-2.5 [facility] ([place]) Comment on above: Performed By: #### LIZET MAYNARD, ANEU #### [place] [address] #### BMP, TROP, PBNP, GFR #### [address] [address] Eosinophils (Bld) [#/Vol] 0.10 10 3/mcL Normal 0.00-0.40 [facility] ([place]) Comment on above: Performed By: #### C LIZET BILL, ANEU #### [place] [address] #### BMP, TROP, PBNP, GFR #### [address] [address] Eosinophils/100 WBC (Bld) 1.9 % Normal 0.0-7.0 [facility] ([place]) Comment on above: Performed By: #### C BC, ADIFF, ANEU #### [address] [address] #### BMP, TROP, PBNP, GFR #### [address] [address] Lymphocytes (Bld) [#/Vol] 1.60 10 3/mcL Normal 0.77-3.85 [facility] ([place]) Comment on above: Performed By: #### C BC, ADIFF, ANEU #### [address] [address] #### BMP, TROP, PBNP, GFR #### [address] [address] Lymphocytes/100 WBC (Bld) 21.3 % Normal 10.0-50.0 [facility] ([place]) Comment on above: Performed By: #### C BC, ADIFF, ANEU #### [place] [address] #### BMP, TROP, PBNP, GFR #### [address] [address] Monocytes/100 WBC (Bld) 7.8 % Normal 1.7-13.0 [facility] ([place]) Comment on above: Performed By: #### C BC, ADIFF, ANEU #### [place] [address] #### BMP, TROP, PBNP, GFR #### [address] [address] Neutrophils/100 WBC (Bld) 68.2 % Normal 37.0-80.0 [facility] ([place]) Comment on above: Performed By: #### C BC, ADIFF, ANEU #### [place] [address] #### BMP, TROP, PBNP, GFR #### [address] [address] .GFRon 08-14-2019 GFR Non- 66 ml/min/1.73sqm Normal [facility] ([place]) Comment on above: Result Comment: GFR Population mean for , Non- Americans Ages 20-29 = 116 mL/min/1.73 sq.m. Ages 30-39 = 107 mL/min/1.73 sq.m. Ages 40-49 = 99 mL/min/1.73 sq.m. Ages 50-59 = 93 mL/min/1.73 sq.m. Ages 60-69 = 85 mL/min/1.73 sq.m. Ages 70+ = 75 mL/min/1.73 sq.m. Chronic Kidney Disease: Less than 60 mL/min/1.73 square meters End Stage Renal Disease: Less than 15 mL/min/1.73 square meters Performed By: #### C BC, ADIFF, ANEU #### [address] [address] #### BMP, TROP, PBNP, GFR #### [address] [address] GFR 80 ml/min/1.73sqm Normal [facility] ([place]) Comment on above: Result Comment: GFR Population mean for , Non- Americans Ages 20-29 = 116 mL/min/1.73 sq.m. Ages 30-39 = 107 mL/min/1.73 sq.m. Ages 40-49 = 99 mL/min/1.73 sq.m. Ages 50-59 = 93 mL/min/1.73 sq.m. Ages 60-69 = 85 mL/min/1.73 sq.m. Ages 70+ = 75 mL/min/1.73 sq.m. Chronic Kidney Disease: Less than 60 mL/min/1.73 square meters End Stage Renal Disease: Less than 15 mL/min/1.73 square meters Performed By: #### C BC, ADIFF, ANEU #### [address] [address] #### BMP, TROP, PBNP, GFR #### [address] [address] .NEUABSon 08-14-2019 Neutrophils (Bld) [#/Vol] 5.00 10 3/mcL Normal 2.85-6.16 [facility] ([place]) Comment on above: Performed By: #### C BC, ADIFF, ANEU #### [place] [address] #### BMP, TROP, PBNP, GFR #### [address] [address] BMPon 08-14-2019 Calcium [Mass/Vol] 9.2 mg/dL Normal 8.4-10.2 [facility] ([place]) Comment on above: Performed By: #### C BC, ADIFF, ANEU #### [place] [address] #### BMP, TROP, PBNP, GFR #### [place] [address] Chloride [Moles/Vol] 104 mmol/L Normal 98-107 [facility] ([place]) Comment on above: Performed By: #### C BC, ADIFF, ANEU #### [place] [address] #### BMP, TROP, PBNP, GFR #### [place] [address] CO2 [Moles/Vol] 29 mmol/L Normal 23-31 [facility] ([place]) Comment on above: Performed By: #### C BC, ADIFF, ANEU #### [place] [address] #### BMP, TROP, PBNP, GFR #### [place] [address] Creatinine [Mass/Vol] 0.85 mg/dL Normal 0.55-1.02 [facility] ([place]) Comment on above: Performed By: #### C BC, ADIFF, ANEU #### [place] [address] #### BMP, TROP, PBNP, GFR #### [address] [address] Electrolyte Balance 11.0 mEq/L Normal [facility] ([place]) Comment on above: Performed By: #### C BC, ADIFF, ANEU #### [address] [address] #### BMP, TROP, PBNP, GFR #### [address] [address] Glucose [Mass/Vol] 87 mg/dL Normal 80-115 [facility] ([place]) Comment on above: Performed By: #### C BC, ADIFF, ANEU #### [address] [address] #### BMP, TROP, PBNP, GFR #### [address] [address] Potassium [Moles/Vol] 4.2 mmol/L Normal 3.5-5.1 [facility] ([place]) Comment on above: Performed By: #### C BC, ADIFF, ANEU #### [address] [address] #### BMP, TROP, PBNP, GFR #### [address] [address] Sodium [Moles/Vol] 144 mmol/L Normal 136-145 [facility] ([place]) Comment on above: Performed By: #### C BC, ADIFF, ANEU #### [address] [address] #### BMP, TROP, PBNP, GFR #### [address] [address] Urea nitrogen [Mass/Vol] 18 mg/dL Normal 7-18 [facility] ([place]) Comment on above: Performed By: #### C BC, ADIFF, ANEU #### [address] [address] #### BMP, TROP, PBNP, GFR #### [address] [address] Urea nitrogen/Creatinine [Mass ratio] 21 ratio Normal 7-27 [facility] ([place]) Comment on above: Performed By: #### C BC, ADIFF, ANEU #### [address] [address] #### BMP, TROP, PBNP, GFR #### [address] [address] CBCon 08-14-2019 Erythrocyte distribution width (RBC) [Ratio] 14.0 % Normal 11.5-14.5 [facility] ([place]) Comment on above: Performed By: #### C BC, ADIFF, ANEU #### [place] [address] #### BMP, TROP, PBNP, GFR #### [place] [address] Hematocrit (Bld) [Volume fraction] 37.9 % Normal 37.0-47.0 [facility] ([place]) Comment on above: Performed By: #### C BC, ADIFF, ANEU #### [place] [address] #### BMP, TROP, PBNP, GFR #### [place] [address] Hemoglobin (Bld) [Mass/Vol] 12.7 G/dL Normal 12.0-16.0 [facility] ([place]) Comment on above: Performed By: #### C BC, ADIFF, ANEU #### [place] [address] #### BMP, TROP, PBNP, GFR #### [place] [address] MCH (RBC) [Entitic mass] 30.6 pg Normal 27.0-31.2 [facility] ([place]) Comment on above: Performed By: #### C BC, ADIFF, ANEU #### [place] [address] #### BMP, TROP, PBNP, GFR #### [place] [address] MCHC (RBC) [Mass/Vol] 33.5 G/dL Normal 33.0-37.0 [facility] ([place]) Comment on above: Performed By: #### C BC, ADIFF, ANEU #### [place] [address] #### BMP, TROP, PBNP, GFR #### [address] [address] MCV (RBC) [Entitic vol] 91.3 fL Normal 80.0-94.0 [facility] ([place]) Comment on above: Performed By: #### C BC, ADIFF, ANEU #### [place] [address] #### BMP, TROP, PBNP, GFR #### [address] [address] Platelet mean volume (Bld) [Entitic vol] 8.3 fL Normal 7.4-10.4 [facility] ([place]) Comment on above: Performed By: #### C BC, ADIFF, ANEU #### [place] [address] #### BMP, TROP, PBNP, GFR #### [address] [address] Platelets (Bld) [#/Vol] 299 10 3/mcL Normal 130-400 [facility] ([place]) Comment on above: Performed By: #### C BC, ADIFF, ANEU #### [place] [address] #### BMP, TROP, PBNP, GFR #### [address] [address] RBC (Bld) [#/Vol] 4.15 10 6/mcL Low 4.20-5.40 [facility] ([place]) Comment on above: Performed By: #### C BC, ADIFF, ANEU #### [place] [address] #### BMP, TROP, PBNP, GFR #### [address] [address] WBC (Bld) [#/Vol] 7.30 10 3/mcL Normal 4.60-10.80 [facility] ([place]) Comment on above: Performed By: #### C BC, ADIFF, ANEU #### [address] [address] #### BMP, TROP, PBNP, GFR #### [address] [address] PBNPon 08-14-2019 Natriuretic peptide B (Bld) [Mass/Vol] 275 pg/mL High 0-125 [facility] ([place]) Comment on above: Result Comment: NT-p roBNP results of less than 300 pg/mL effectively rules out acute congestive heart failure with 99% negative predictive value. Performed By: #### C BC, ADIFF, ANEU #### [place] [address] #### BMP, TROP, PBNP, GFR #### [place] [address] TROPon 08-14-2019 Troponin I.cardiac [Mass/Vol] ng/mL Normal 0.000-0.040 [facility] ([place]) Comment on above: Result Comment: Trop onin I reference range: 0.00-0.040 ng/mL Negative and non-diagnostic. >0.040 ng/mL Consistent with cardiac damage, increased clinical risk and possibility of myocardial infarction. Serial measurements, a rise & fall in test results, clinical history, appropriate symptoms and/or ECG changes may help assess possibility of DE. *Other non-acute coronary syndrome conditions such as CHF, myocarditis, pulmonary emboli, sepsis and cardiac surgery could result in myocardial damage and increased troponin levels. Performed By: #### C BC, ADIFF, ANEU #### [place] [address] #### BMP, TROP, PBNP, GFR #### [address] [address] XR CHEST 1 VIEWon 08-14-2019 XR CHEST 1 VIEW ORIGINAL XR CHEST 1 VIEW PORTABLE CLINICAL STATEMENT: chest pain COMPARISON: None FINDINGS: A small LEFT pleural effusion with adjacent atelectasis and/or developing consolidation noted. Cardiomediastinal silhouette is enlarged. No pneumothorax. IMPRESSION: 1. Small LEFT pleural effusion with adjacent atelectasis or developing consolidation. Followup to resolution is recommended. 2. Mild cardiomegaly. Interpreted By: Jeff North MD Preliminary Report By: Jeff North MD Electronically Signed By: Jeff North MD Dictated Date: 08/14/2019 5:45:59 PM Prelim Date: 08/14/2019 5:45:59 PM Sign Date: 08/14/2019 5:46:44 PM Ordering Provider:Indio Dupree [facility] ([place]) Vital Signs Date Time Vital Sign Value Performing Clinician Roscoe dao 03-14-2024 14:05-0400 Body height 159.5 cm Moira Hearn APRN.PROTOZOOLOGY TEACHER Work Phone: [facility] 03-14-2024 14:05-0400 Body mass index (BMI) [Ratio] 26.75 kg/m2 Moiramalu Hearn [employer]ER.PROTOZOOLOGY TEACHER Work Phone: [facility] 03-14-2024 14:05-0400 Body weight 68.04 kg Moira Hearn [employer]ER.PROTOZOOLOGY TEACHER Work Phone: [facility] 03-14-2024 14:05-0400 Diastolic blood pressure 56 mm[Hg] Moira Hearn [employer]ER.PROTOZOOLOGY TEACHER Work Phone: [facility] 03-14-2024 14:05-0400 Heart rate 90 /min Moira Hearn [employer]ER.PROTOZOOLOGY TEACHER Work Phone: [facility] 03-14-2024 14:05-0400 Respiratory rate 18 /min Moira Hearn [employer]ER.PROTOZOOLOGY TEACHER Work Phone: [facility] 03-14-2024 14:05-0400 SaO2% (BldA) [Mass fraction] 96 % Moira Hearn [employer]ER.PROTOZOOLOGY TEACHER Work Phone: [facility] 03-14-2024 14:05-0400 Systolic blood pressure 98 mm[Hg] Moira Hearn [employer]ER.PROTOZOOLOGY TEACHER Work Phone: [facility] 12-09-2023 09:03-0400 Body temperature 98.4 [degF] Lenin Bhatt MD Work Phone: [facility] 12-09-2023 09:03-0400 Body weight 70.76 kg Lenin Bhatt MD Work Phone: [facility] 12-09-2023 09:03-0400 Diastolic blood pressure 60 mm[Hg] Lenin Bhatt MD Work Phone: [facility] 12-09-2023 09:03-0400 Heart rate 76 /min Lenin Bhatt MD Work Phone: [facility] 12-09-2023 09:03-0400 Respiratory rate 20 /min Lenin Bhatt MD Work Phone: [facility] 12-09-2023 09:03-0400 Systolic blood pressure 118 mm[Hg] Lenin Bhatt MD Work Phone: [facility] 06-10-2023 10:05-0400 Body height 162.6 cm Moira Older [employer]ER.PROTOZOOLOGY TEACHER Work Phone: [facility] 06-10-2023 10:05-0400 Body temperature 97.11 [degF] Moira Older [employer]ER.PROTOZOOLOGY TEACHER Work Phone: [facility] 06-10-2023 10:05-0400 Body weight 73.98 kg Moira Older [employer]ER.PROTOZOOLOGY TEACHER Work Phone: [facility] 06-10-2023 10:05-0400 Diastolic blood pressure 60 mm[Hg] Moira Older [employer]ER.PROTOZOOLOGY TEACHER Work Phone: [facility] 06-10-2023 10:05-0400 Heart rate 73 /min Moira Older [employer]ER.PROTOZOOLOGY TEACHER Work Phone: [facility] 06-10-2023 10:05-0400 SaO2% (BldA) [Mass fraction] 91 % Moira Older [employer]ER.PROTOZOOLOGY TEACHER Work Phone: [facility] 06-10-2023 10:05-0400 Systolic blood pressure 128 mm[Hg] Moira Older [employer]ER.PROTOZOOLOGY TEACHER Work Phone: [facility] 04-15-2023 11:37-0400 Body height 162.6 cm Wilbur Youssef MD Work Phone: [facility] 04-15-2023 11:37-0400 Body weight 72.58 kg Wilbur Youssef MD Work Phone: [facility] 04-15-2023 11:37-0400 Diastolic blood pressure 66 mm[Hg] Wilbur Youssef MD Work Phone: [facility] 04-15-2023 11:37-0400 Heart rate 77 /min Wilbur Youssef MD Work Phone: [facility] 04-15-2023 11:37-0400 SaO2% (BldA) [Mass fraction] 97 % Wilbur Youssef MD Work Phone: [facility] 04-15-2023 11:37-0400 Systolic blood pressure 123 mm[Hg] Wilbur Youssef MD Work Phone: [facility] 03-04-2023 16:22-0400 Body height 160 cm Lenin Bhatt MD Work Phone: [facility] 03-04-2023 16:22-0400 Body weight 72.58 kg Lenin Bhatt MD Work Phone: [facility] 03-04-2023 16:22-0400 Diastolic blood pressure 74 mm[Hg] Lenin Bhatt MD Work Phone: [facility] 03-04-2023 16:22-0400 Heart rate 84 /min Lenin Bhatt MD Work Phone: [facility] 03-04-2023 16:22-0400 Respiratory rate 20 /min Lenin Bhatt MD Work Phone: [facility] 03-04-2023 16:22-0400 SaO2% (BldA) [Mass fraction] 96 % Lenin Bhatt MD Work Phone: [facility] 03-04-2023 16:22-0400 Systolic blood pressure 124 mm[Hg] Lenin Bhatt MD Work Phone: [facility] 06-10-2022 13:02-0400 Body height 162.6 cm Jonathan Aguila MD Work Phone: [facility] 06-10-2022 13:02-0400 Body weight 70.76 kg Jonathan Aguila MD Work Phone: [facility] 06-10-2022 13:02-0400 Diastolic blood pressure 45 mm[Hg] Jonathan Aguila MD Work Phone: [facility] 06-10-2022 13:02-0400 Heart rate 83 /min Jonathan Aguila MD Work Phone: [facility] 06-10-2022 13:02-0400 Systolic blood pressure 113 mm[Hg] Jonathan Aguila MD Work Phone: [facility] 03-31-2022 13:26-0400 Body height 162.6 cm Zachariah Gonzales Jr., MD Work Phone: [facility] 03-31-2022 13:26-0400 Body weight 73.94 kg Zachariah Gonzales Jr., MD Work Phone: [facility] 12-12-2021 15:26-0400 SaO2% (BldA) [Mass fraction] 91 % Lenin Bhatt MD Work Phone: [facility] 12-12-2021 14:43-0400 Body temperature 97.3 [degF] Lenin Bhatt MD Work Phone: [facility] 12-12-2021 14:43-0400 Body weight 76.2 kg Lenin Bhatt MD Work Phone: [facility] 12-12-2021 14:43-0400 Diastolic blood pressure 62 mm[Hg] Lenin Bhatt MD Work Phone: [facility] 12-12-2021 14:43-0400 Heart rate 93 /min Lenin Bhatt MD Work Phone: [facility] 12-12-2021 14:43-0400 Respiratory rate 24 /min Lenin Bhatt MD Work Phone: [facility] 12-12-2021 14:43-0400 Systolic blood pressure 128 mm[Hg] Lenin Bhatt MD Work Phone: [facility] 10-05-2019 14:50-0500 BP Diastolic 83 mm[Hg] Aramis Cheng [facility] 10-05-2019 14:50-0500 BP Systolic 141 mm[Hg] Aramis Cheng [facility] 10-05-2019 14:50-0500 Pulse (Heart Rate) 79 /min Aramis Cheng [facility] 08-11-2018 13:31-0500 BP Diastolic 73 mm[Hg] Aramis Cheng [facility] 08-11-2018 13:31-0500 BP Systolic 126 mm[Hg] Aramis Cheng [facility] 08-11-2018 13:31-0500 Pulse (Heart Rate) 99 /min Aramis Cheng [facility] 08-26-2017 09:47-0500 BP Diastolic 77 mm[Hg] Aramis Cheng [facility] Work Phone: 08-26-2017 09:47-0500 BP Systolic 120 mm[Hg] Aramis Cheng [facility] Work Phone: 08-26-2017 09:47-0500 Pulse (Heart Rate) 92 /min Aramis Cheng [facility] Work Phone: Encounters Encounter Date Encounter Type Care Provider Facility Start: 06-12-2024 End: 06-13-2024 Refill Deepti Auguste MD Work Phone: Geriatrics Comment on above: Med Change Request Start: 06-12-2024 End: 06-12-2024 Telephone encounter Lenin Bhatt MD Work Phone: Internal Medicine [place] Comment on above: Patient Update Start: 06-06-2024 End: 06-08-2024 Refill Lenin Bhatt MD Work Phone: Internal Medicine [place] Comment on above: Refill Request Start: 05-30-2024 End: 05-31-2024 Refill Lenin Bhatt MD Work Phone: Internal Medicine [place] Comment on above: Refill Request Start: 05-24-2024 End: 05-24-2024 Refill Deepti Auguste MD Work Phone: Geriatrics Comment on above: Med Change Request Start: 05-24-2024 End: 05-24-2024 Telephone encounter Lenin Bhatt MD Work Phone: Geriatrics Comment on above: Opened In Error Start: 05-24-2024 End: 05-24-2024 ambulatory LENIN BHATT Facility:[facility] [place] Start: 04-18-2024 End: 04-19-2024 Refill Lenin Bhatt MD Work Phone: Internal Medicine [place] Comment on above: Refill Request Start: 04-13-2024 Telephone encounter Zachariah Gonzales MD Work Phone: Urology Comment on above: Results Start: 04-10-2024 End: 04-10-2024 ambulatory LENIN BHATT Facility:[facility] [place] Start: 04-10-2024 End: 04-10-2024 Subsequent hospital visit by physician [facility] Work Phone: Radiology Comment on above: Renal mass [N28.89] Start: 03-23-2024 Refill Lenin dunbar MD Work Phone: Internal [facility] [place] Comment on above: Refill Request Start: 03-20-2024 Orders Only Lenin dunbar MD Work Phone: Internal [facility] [place] Comment on above: Kidney insufficiency (Primary Dx); Anemia, unspecified type; Seizure (HCC) Results Start: 03-14-2024 End: 03-14-2024 ambulatory LENIN BHATT Facility:[facility] [place] Start: 03-14-2024 End: 03-14-2024 Patient encounter status Moira Hearn [employer]ER.PROTOZOOLOGY TEACHER Work Phone: [facility] Start: 03-14-2024 End: 03-14-2024 ambulatory MOIRA HEARN Facility:[facility] [place] Start: 03-14-2024 Encounter for examin ation of eyes and vision without abnormal findings MOIRA HEARN [facility] Start: 03-14-2024 End: 03-14-2024 Patient encounter procedure Moira Hearn [employer]ER.PROTOZOOLOGY TEACHER Work Phone: Internal Medicine [place] Comment on above: Medicare annual well ness visit, subsequent (Primary Dx); Pain in both lower extremities; Essential hypertension; Abnormal mini-mental status exam; 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; Aphasia, late effect of cerebrovascular disease; PVD (peripheral vascular disease) (HCC); Hyperlipidemia, unspecified hyperlipidemia type; Impaired fasting glucose; Encounter for routine eye and vision examination; Current moderate episode of major depressive disorder, unspecified whether recurrent (HCC); Encounter for screening mammogram for breast cancer Start: 03-13-2024 Refill Moira brink APRN.PROTOZOOLOGY TEACHER Work Phone: Internal [facility] [place] Comment on above: Refill Request Start: 01-09-2024 Refill Lenin dunbar MD Work Phone: Internal Medicine [place] Comment on above: Refill Request Start: 12-09-2023 End: 12-09-2023 ambulatory LENIN BHATT Facility:[facility] [place] Start: 12-09-2023 End: 12-09-2023 Patient encounter procedure Lenin Bhatt MD Work Phone: Internal Medicine [place] Comment on above: Pain in both lower e xtremities (Primary Dx); Acute on chronic respiratory failure with hypoxemia (HCC); Hyperlipidemia, unspecified hyperlipidemia type; 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); Chronic systolic (congestive) heart failure (HCC); Acquired hypothyroidism; Chronic bronchitis, unspecified chronic bronchitis type (HCC); Arteriosclerosis of coronary artery Start: 11-29-2023 ambulatory Zachariah wright Jr., MD Work Phone: [facility] Start: 11-29-2023 Patient encounter procedure Indu Gonzales MD Work Phone: Urology Comment on above: Next Appointment Start: 09-29-2023 End: 09-29-2023 ambulatory JONATHAN AGUILA Facility:[facility] [place] Start: 06-10-2023 End: 06-10-2023 Patient encounter procedure Moira Brandon APRN.CNP Work Phone: Internal Medicine [place] Comment on above: Chronic bronchitis, unspecified chronic bronchitis type (HCC) (Primary Dx); Current moderate episode of major depressive disorder, unspecified whether recurrent (HCC); Acute on chronic respiratory failure with hypoxemia (HCC); Bilateral impacted cerumen Start: 05-19-2023 ambulatory Lenin dunbar MD Work Phone: Internal Medicine [place] Comment on above: Sertraline Start: 05-19-2023 Telephone encounter Lenin casillas MD Work Phone: Internal Medicine [place] Comment on above: Orders Start: 04-19-2023 End: 04-19-2023 Subsequent hospital visit by physician [facility] Work Phone: Radiology Comment on above: Renal mass [N28.89] Start: 04-15-2023 End: 04-15-2023 Patient encounter procedure Wilbur Youssef MD Work Phone: Vascular Surgery Comment on above: Peripheral arterial disease (HCC) (Primary Dx) Start: 04-08-2023 ambulatory Lenin dunbar MD Work Phone: [facility] [place] Start: 04-08-2023 Letter encounter Lenin figueroa MD Work Phone: Internal Medicine [place] Comment on above: Letter Start: 03-23-2023 Documentation procedure Mammog lucas Coordinator [facility] Start: 03-23-2023 Letter encounter Mammography Coordinator [facility] Department Start: 03-22-2023 End: 03-22-2023 Subsequent hospital visit by physician [facility] Mamm[facility] Comment on above: Encounter for screen ing mammogram for breast cancer [Z12.31] Start: 03-12-2023 End: 03-12-2023 Patient encounter procedure Pavan Mcclure Work Phone: Podiatry Comment on above: Callus of foot (Prim wilmer Dx); Dermatophytosis of nail; Pain in toes of both feet; PVD (peripheral vascular disease) (HCC) Start: 03-12-2023 End: 03-12-2023 Subsequent hospital visit by physician [facility] [place] Work Phone: Radiology Comment on above: Chronic systolic (co ngestive) heart failure (HCC) [I50.22] Start: 03-09-2023 ambulatory Lenin dunbar MD Work Phone: [facility] [place] Start: 03-09-2023 Patient encounter procedure Vi elvia Bhatt MD Work Phone: Internal Medicine [place] Comment on above: W[facility] Start: 03-04-2023 End: 03-04-2023 Patient encounter procedure Lenin Bhatt MD Work Phone: Internal Medicine [place] Comment on above: Medicare annual well ness visit, subsequent (Primary Dx); Dermatophytosis of nail; Pain in toes of both feet; 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; Chronic systolic (congestive) heart failure (HCC); Ischemic cardiomyopathy; Essential hypertension; Kidney insufficiency; Sacral decubitus ulcer, stage II (HCC); Impaired fasting glucose Start: 02-25-2023 Refill Moira Brandon APRN, .CNP Work Phone: Internal Medicine [place] Comment on above: Refill Request Labwork and Concern Start: 02-13-2023 ambulatory Lenin dunbar MD Work Phone: Internal Medicine [place] Comment on above: Labwork Start: 10-27-2022 Refill Lenin dunbar MD Work Phone: Internal Medicine [place] Comment on above: Refill Request Start: 09-28-2022 End: 09-28-2022 ambulatory LENIN BHATT [facility] Ambulatory Start: 09-28-2022 End: 09-28-2022 Office outpatient visit 25 minutes Aramis Cheng MD Work Phone: [facility] Comment on above: Localization-related epilepsy (HCC) (Primary Dx); History of stroke; Primary hypertension; Pure hypercholesterolemia Start: 08-04-2022 Refill Kristine Downing RN [facility] Comment on above: Localization-related epilepsy (HCC) Start: 08-03-2022 Refill Lenin dunbar MD Work Phone: Internal Medicine [place] Comment on above: Refill Request Start: 08-01-2022 Refill Lenin dunbar MD Work Phone: Internal Medicine [place] Comment on above: Med Change Request Start: 07-30-2022 Refill Lenin dunbar MD Work Phone: Internal Medicine [place] Comment on above: Refill Request Start: 07-21-2022 Refill Jonathan Aguila MD Work Phone: [facility] Cardiology [place] Comment on above: Refill Request Start: 07-08-2022 Telephone encounter Lenin casillas MD Work Phone: Internal Medicine [place] Comment on above: Medication Request Start: 07-01-2022 Refill Lenin dunbar MD Work Phone: Internal Medicine [place] Comment on above: Refill Request Start: 06-10-2022 End: 06-10-2022 Patient encounter procedure Jonathan Aguila MD Work Phone: Cardiology Comment on above: Cardiomyopathy, hany schemic (HCC) (Primary Dx); Chronic combined systolic and diastolic heart failure (HCC) Start: 06-04-2022 Telephone encounter Lenin casillas MD Work Phone: Internal Medicine [place] Comment on above: Medication Question Start: 06-03-2022 Telephone encounter Lenin casillas MD Work Phone: Family Medicine [place] Comment on above: Letter (For Communit y Action) Start: 06-02-2022 Refill Lenin dunbar MD Work Phone: Family [facility] Comment on above: Refill Request Start: 05-20-2022 ambulatory Lenin dunbar MD Work Phone: Internal Medicine [facility] [place] Start: 05-18-2022 Refill Eladio Moy Work Phone: [facility] Card[facility] [place] Comment on above: Refill Request Start: 04-17-2022 Refill Jonathan Aguila MD Work Phone: [facility] [place] Comment on above: Refill Request Start: 04-17-2022 Telephone encounter Jonathan Evans i, MD Work Phone: [facility] [place] Comment on above: Appointment Start: 04-06-2022 Refill Blossom Lenora [facility] Comment on above: Refill Request Start: 04-03-2022 Telephone encounter Zachariah Gonzales MD Work Phone: [place] [facility] Comment on above: Results Start: 03-31-2022 End: 03-31-2022 Patient encounter procedure Zachariah Gonzales MD Work Phone: Urology Comment on above: Renal mass (Primary Dx); Dysuria Start: 01-12-2022 Telephone encounter Lenin casillas MD Work Phone: Internal Medicine [place] Comment on above: Letter Start: 01-06-2022 Refill Lenin dunbar MD Work Phone: Internal Medicine [place] Comment on above: Refill Request Start: 12-25-2021 Telephone encounter Lenin casillas MD Work Phone: Internal Medicine [place] Comment on above: Patient Update; Orde rs Start: 12-17-2021 Telephone encounter Moira Roma [employer]ER.PROTOZOOLOGY TEACHER Work Phone: Internal Medicine [place] Comment on above: Results Start: 12-12-2021 End: 12-12-2021 Patient encounter procedure Lenin Bhatt MD Work Phone: Internal Medicine [place] Comment on above: Acute on chronic res piratory failure with hypoxemia (HCC) (Primary Dx); Chronic systolic (congestive) heart failure (HCC); PVD (peripheral vascular disease) (HCC); Impaired fasting glucose; Hyperlipidemia, unspecified hyperlipidemia type; Acquired hypothyroidism; Current moderate episode of major depressive disorder, unspecified whether recurrent (HCC) Start: 12-10-2021 Refill Lenin dunbar MD Work Phone: Internal Medicine [place] Comment on above: Refill Request Start: 11-21-2021 Refill John griffin MD Work Phone: [facility] Card[facility] [place] Comment on above: Refill Request Start: 11-21-2021 Telephone encounter Jonathan Evans i, MD Work Phone: [facility] [place] Comment on above: Appointment (Called Pt to schedule overdue 6 mth f/u appt; No answer, left vm to callback to schedule.) Start: 08-14-2021 End: 08-14-2021 Office outpatient visit 25 minutes Aramis Cheng MD Work Phone: [facility] Comment on above: Localization-related epilepsy (HCC) (Primary Dx); History of stroke; LBBB (left bundle branch block); Primary hypertension Start: 10-05-2020 End: 10-05-2020 Orders Only Tsering Guillermo Ayaan Work Phone: [facility] [place] Start: 10-05-2019 End: 10-05-2019 Office outpatient visit 25 minutes Aramis Cheng Work Phone: [facility] Comment on above: Localization-related epilepsy (HCC) (Primary Dx); Essential hypertension; Pure hypercholesterolemia; Asymptomatic PVD (peripheral vascular disease) (HCC) Start: 12-20-2018 End: 12-20-2018 Evaluation and management of inpatient MAURICIO Barbosa Facility:[facility] Start: 08-11-2018 End: 08-11-2018 Office outpatient visit 25 minutes Aramis Cheng Work Phone: [facility] Comment on above: Localization-related epilepsy (HCC) (Primary Dx); History of stroke; LBBB (left bundle branch block); Essential hypertension Start: 08-26-2017 Office/outpatient vi sit, est, level 4 Aramis Cheng Work Phone: [facility] Procedures Date Procedure Procedure Detail Performing Clinician Start: 04-10-2024 Lipid 1996 panel - S benito or Plasma Us 2 Work Phone: Start: 03-14-2024 Lipid 1996 panel - S benito or Plasma Lenin Bhatt MD Work Phone: Start: 04-19-2023 Us retroperitoneal r eal time w/image complete Zachariah Gonzales MD Work Phone: Start: 03-22-2023 End: 03-22-2023 Mammography Bulk Order Provider Start: 03-12-2023 Radiologic exam ches t 2 views Lenin Bhatt MD Work Phone: Start: 02-27-2023 Lipid 1996 panel - S benito or Plasma Lenin Bhatt MD Work Phone: Start: 09-28-2022 Adult depression scr eening assessment Aramis Cheng MD Work Phone: Start: 06-10-2022 Ecg routine ecg w/le ast 12 lds w/i&r [facility] Provider Start: 03-31-2022 Urnls dip stick/tabl et rgnt auto w/o microscopy Zachariah Gonzales MD Work Phone: Start: 08-14-2021 Adult depression scr eening assessment Aramis Cheng MD Work Phone: Start: 04-04-2021 Mammography Aramis zaragoza MD Work Phone: Start: 12-14-2017 Colonoscopy Jonathan Aguila MD Work Phone: Plan of Treatment Date Care Activity Detail Author Start: 10-29-2029 Tetanus vaccination Tetanus: Every 10yrs [facility] Start: 10-29-2029 Urine microalbumin profile [facility] Start: 04-10-2029 Lipid panel Lipid Screening [facility] Start: 03-14-2029 Lipid panel Lipid Screening [facility] Start: 11-14-2028 Tetanus vaccination [facility] Start: 02-28-2028 Lipid 1996 panel - Serum or Plasma Lipid Screening [facility] Start: 02-28-2028 Lipid panel Lipid Screening [facility] Start: 02-28-2028 LIPID SCREEN LIPID SCREEN [facility] Start: 04-10-2027 Diabetes Screening Diabetes Screening [facility] Start: 03-14-2027 Diabetes Screening Diabetes Screening [facility] Start: 12-15-2026 LIPID SCREEN LIPID SCREEN [facility] Start: 03-12-2026 DIABETES SCREEN DIABETES SCREEN [facility] Start: 03-12-2026 Diabetes Screening Diabetes Screening [facility] Start: 02-27-2026 DIABETES SCREEN DIABETES SCREEN [facility] Start: 04-10-2025 Hepatitis B surface antibody level LDL Cholesterol [facility] Start: 04-03-2025 LIPID SCREEN LIPID SCREEN [facility] Start: 03-14-2025 Annual PCP Team Chronic Disease Visit Annual PCP Team Chronic Disease Visit [facility] Start: 03-14-2025 BP Controlled (<130/80) BP Controlled (<130/80) [facility] Start: 03-14-2025 Hepatitis B surface antibody level LDL Cholesterol [facility] Start: 03-14-2025 RSV Vaccine (1 - 1-dose 60+ series) RSV Vaccine (1 - 1-dose 60+ series) [facility] Comment on above: Postponed from 2010 (Declined at t his time) Start: 03-14-2025 RSV Vaccine (1 - Risk 60-74 years 1-dose series) RSV Vaccine (1 - Risk 60-74 years 1-dose series) [facility] Comment on above: Postponed from 2010 (Declined at t his time) Start: 03-14-2025 Shingrix Vaccine (1 of 2) Shingrix Vaccine (1 of 2) [facility] Comment on above: Postponed from 2000 (Declined at t his time) Start: 12-15-2024 DIABETES SCREEN DIABETES SCREEN [facility] Start: 12-08-2024 Annual PCP Team Chronic Disease Visit Annual PCP Team Chronic Disease Visit [facility] Start: 12-08-2024 BP Controlled (<130/80) BP Controlled (<130/80) [facility] Start: 09-29-2024 BP Controlled (<130/80) BP Controlled (<130/80) [facility] Start: 08-16-2024 End: 08-16-2024 Patient encounter procedure 08/16/2024 2:00 PM EST Office Visit Geriatrics [address] [facility] [place] [address] Deepti Auguste MD [address] [place] [id number] 3 month follow up Geriatrics Comment on above: 3 month follow up Start: 08-01-2024 End: 08-01-2024 Patient encounter procedure 08/01/2024 1:00 PM EST Office Visit [facility] [address] [place] [address] Elis Leonard, OD [address] [place] [address] Encounter for routine eye and vision examination [Z01.00]/ OK PER DR LEONARD Ophthalmology Comment on above: Encounter for routine eye and vision exa mination [Z01.00]/ OK PER DR LEONARD Start: 06-12-2024 End: 06-12-2024 Patient encounter procedure 06/12/2024 1:20 PM EDT Office Visit Internal Medicine [place] [address] [place] [address] Moira Hearn, JACK.PROTOZOOLOGY TEACHER [address] [place] [address] 6 month follow-up [facility] [place] Comment on above: 6 month follow-up Start: 06-10-2024 Annual PCP Team Chronic Disease Visit Annual PCP Team Chronic Disease Visit [facility] Start: 06-10-2024 BP Controlled (<130/80) BP Controlled (<130/80) [facility] Start: 06-09-2024 End: 06-09-2024 Patient encounter procedure [facility] [place] Comment on above: 6 month follow-up Start: 05-24-2024 End: 05-24-2024 Patient encounter procedure [facility] [place] Comment on above: nurse Sintia consult Start: 05-09-2024 End: 05-09-2024 Patient encounter procedure 05/09/2024 2:45 PM EDT Office Visit [facility] [address] [place] [address] Elis Leonard, OD [address] [place] [address] Encounter for routine eye and vision examination [Z01.00] Ophthalmology Comment on above: Encounter for routine eye and vision exa mination [Z01.00] Start: 04-30-2024 Influenza vaccination [facility] Start: 04-19-2024 End: 04-19-2024 Patient encounter procedure [facility] [place] Comment on above: Aphasia, late effect of cerebrovascular disease [I69.920]; Late effects of CVA (cerebrovascular accident) [I69.90]; Abnormal mini-mental status exam [F99] Start: 04-15-2024 BP CONTROLLED (<130/80) BP CONTROLLED (<130/80) [facility] Start: 04-10-2024 End: 04-10-2024 Patient encounter procedure 04/10/2024 11:30 AM EDT Appointment Radiology [address] [place] [address] Renal mass [N28.89] Radiology Comment on above: Renal mass [N28.89] Start: 03-31-2024 US KIDNEY/BLADDER US KIDNEY/BLADDER Radiology Routine Renal mass Expected: 03/31/2024 [facility] Work Phone: Comment on above: Expected: 03/31/2024 Start: 03-27-2024 End: 06-26-2024 Basic metabolic 2000 panel - Serum or Plasma BASIC METABOLIC PANEL Lab Routine Kidney insufficiency Expected: 03/27/2024, Expires: 06/26/2024 [facility] Comment on above: Expected: 03/27/2024, Expires: Start: 03-27-2024 End: 06-26-2024 CBC panel - Blood by Automated count COMPLETE BLOOD COUNT Lab Routine Anemia, unspecified type Expected: 03/27/2024, Expires: 06/26/2024 [facility] Work Phone: Comment on above: Expected: 03/27/2024, Expires: Start: 03-27-2024 End: 06-26-2024 Cobalamin (Vitamin B12) [Mass/volume] in Serum or Plasma VITAMIN B12 Lab Routine Anemia, unspecified type Expected: 03/27/2024, Expires: 06/26/2024 [facility] Comment on above: Expected: 03/27/2024, Expires: Start: 03-27-2024 End: 06-26-2024 Ferritin [Mass/volume] in Serum or Plasma FERRITIN Lab Routine Anemia, unspecified type Expected: 03/27/2024, Expires: 06/26/2024 [facility] Comment on above: Expected: 03/27/2024, Expires: Start: 03-27-2024 End: 06-26-2024 levETIRAcetam [Mass/volume] in Serum or Plasma LEVETIRACETAM Lab Routine Seizure (HCC) Expected: 03/27/2024, Expires: 06/26/2024 [facility] Comment on above: Expected: 03/27/2024, Expires: Start: 03-22-2024 Mammography [facility] Start: 03-22-2024 Screening for malignant neoplasm of breast Mammogram Screening [facility] Start: 03-14-2024 End: 03-14-2024 Patient encounter procedure 03/14/2024 2:20 PM EDT Office Visit Internal Medicine [place] [address] [place], [place] [id number] Moira Hearn, [employer]ER.PROTOZOOLOGY TEACHER [address] [place], [place] [address] Annual Medicare w/3 month follow-up [facility] [place] Comment on above: Annual Medicare w/3 month follow-up Start: 03-14-2024 End: 06-13-2024 LIPID PANEL, NONFASTING [facility] Comment on above: Expected: 03/14/2024, Expires: Start: 03-09-2024 End: 06-08-2024 CBC panel - Blood by Automated count COMPLETE BLOOD COUNT Lab Routine Acute on chronic respiratory failure with hypoxemia (HCC) Expected: 03/09/2024, Expires: 06/08/2024 [facility] Work Phone: Comment on above: Expected: 03/09/2024, Expires: Start: 03-09-2024 End: 06-08-2024 Comprehensive metabolic 2000 panel - Serum or Plasma COMPREHENSIVE METABOLIC PANEL Lab Routine Hyperlipidemia, unspecified hyperlipidemia type Expected: 03/09/2024, Expires: 06/08/2024 [facility] Work Phone: Comment on above: Expected: 03/09/2024, Expires: Start: 03-09-2024 End: 06-08-2024 levETIRAcetam [Mass/volume] in Serum or Plasma LEVETIRACETAM Lab Routine 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) Expected: 03/09/2024, Expires: 06/08/2024 [facility] Work Phone: Comment on above: Expected: 03/09/2024, Expires: 4 Start: 03-09-2024 End: 06-08-2024 Lipid 1996 panel - Serum or Plasma LIPID PANEL BASIC Lab Routine Hyperlipidemia, unspecified hyperlipidemia type Expected: 03/09/2024, Expires: 06/08/2024 [facility] Work Phone: Comment on above: Expected: 03/09/2024, Expires: Start: 03-09-2024 End: 06-08-2024 Thyrotropin [Units/volume] in Serum or Plasma THYROID STIMULATING HORMONE Lab Routine Acquired hypothyroidism Expected: 03/09/2024, Expires: 06/08/2024 [facility] Work Phone: Comment on above: Expected: 03/09/2024, Expires: Start: 03-04-2024 ANNUAL PCP TEAM CHRONIC DISEASE VISIT ANNUAL PCP TEAM CHRONIC DISEASE VISIT [facility] Start: 03-04-2024 BP CONTROLLED (<130/80) BP CONTROLLED (<130/80) [facility] Start: 02-28-2024 Hepatitis B surface antibody level LDL CHOLESTEROL [facility] Start: 02-27-2024 Influenza vaccination Influenza Vaccine (#1) [facility] Comment on above: Postponed from 04/30/2023 (Declined at t his time) Start: 01-22-2024 DIABETES SCREEN DIABETES SCREEN [facility] Start: 08-30-2023 Advance Directive Discussion Advance Directive Discussion [facility] Start: 07-16-2023 ANNUAL PCP TEAM CHRONIC DISEASE VISIT ANNUAL PCP TEAM CHRONIC DISEASE VISIT [facility] Start: 06-10-2023 BP CONTROLLED (<130/80) BP CONTROLLED (<130/80) [facility] Start: 04-30-2023 Influenza vaccination [facility] Start: 03-18-2023 End: 05-18-2023 Basic metabolic 2000 panel - Serum or Plasma BASIC METABOLIC PNL Lab Routine Kidney insufficiency Expected: 03/18/2023, Expires: 05/18/2023 [facility] Work Phone: Comment on above: Expected: 03/18/2023, Expires: 3 Start: 03-18-2023 End: 05-18-2023 Natriuretic peptide.B prohormone N-Terminal [Mass/volume] in Serum or Plasma NT PRO BNP Lab Routine Chronic systolic (congestive) heart failure (HCC) Expected: 03/18/2023, Expires: 05/18/2023 [facility] Work Phone: Comment on above: Expected: 03/18/2023, Expires: 3 Start: 03-18-2023 End: 05-18-2023 Urinalysis complete panel - Urine URINALYSIS, WITH MICROSCOPIC Lab Routine Kidney insufficiency Expected: 03/18/2023, Expires: 05/18/2023 [facility] Work Phone: Comment on above: Expected: 03/18/2023, Expires: 3 Start: 02-26-2023 Influenza vaccination INFLUENZA (#1) [facility] Comment on above: Postponed from 04/30/2022 (Declined at t his time) Start: 02-15-2023 End: 04-17-2023 CBC panel - Blood by Automated count CBC Lab Routine Essential hypertension Expected: 02/15/2023, Expires: 04/17/2023 [facility] Work Phone: Comment on above: Expected: 02/15/2023, Expires: 3 Start: 02-15-2023 End: 04-17-2023 Comprehensive metabolic 2000 panel - Serum or Plasma COMP METABOLIC PANEL Lab Routine Hyperlipidemia, unspecified hyperlipidemia type Essential hypertension Expected: 02/15/2023, Expires: 04/17/2023 [facility] Work Phone: Comment on above: Expected: 02/15/2023, Expires: 3 Start: 02-15-2023 End: 04-17-2023 Hemoglobin A1c in Blood HGB A1C Lab Routine Impaired fasting glucose Expected: 02/15/2023, Expires: 04/17/2023 [facility] Work Phone: Comment on above: Expected: 02/15/2023, Expires: 3 Start: 02-15-2023 End: 04-17-2023 levETIRAcetam [Mass/volume] in Serum or Plasma LEVETIRACETAM Lab Routine 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) Expected: 02/15/2023, Expires: 04/17/2023 [facility] Work Phone: Comment on above: Expected: 02/15/2023, Expires: 3 Start: 02-15-2023 End: 04-17-2023 Lipid 1996 panel - Serum or Plasma LIPID PANEL BASIC Lab Routine Hyperlipidemia, unspecified hyperlipidemia type Expected: 02/15/2023, Expires: 04/17/2023 [facility] Work Phone: Comment on above: Expected: 02/15/2023, Expires: 3 Start: 02-15-2023 End: 04-17-2023 Thyrotropin [Units/volume] in Serum or Plasma TSH BLD Lab Routine Acquired hypothyroidism Expected: 02/15/2023, Expires: 04/17/2023 [facility] Work Phone: Comment on above: Expected: 02/15/2023, Expires: 3 Start: 12-14-2022 Colonoscopy COLONOSCOPY [facility] Start: 12-14-2022 COLORECTAL CANCER SCREENING COLORECTAL CANCER SCREENING [facility] Start: 12-14-[address] COLONOGRAPHY [facility] Start: 12-14-2022 Screening for malignant neoplasm of colon [facility] Start: 12-12-2022 ANNUAL PCP TEAM CHRONIC DISEASE VISIT ANNUAL PCP TEAM CHRONIC DISEASE VISIT [facility] Start: 12-12-2022 BP CONTROLLED (<130/80) BP CONTROLLED (<130/80) [facility] Start: 12-12-2022 SHINGRIX VACCINE (1 of 2) SHINGRIX VACCINE (1 of 2) [facility] Comment on above: Postponed from 2000 (Insurance Cov erage) Start: 08-30-2022 ADVANCE DIRECTIVE DISCUSSION ADVANCE DIRECTIVE DISCUSSION [facility] Start: 08-14-2022 Depression screening using PHQ-9 (Patient Health Questionnaire 9) score Depression Screening (PHQ-2/9) [facility] Start: 08-14-2022 End: 08-14-2022 Patient encounter procedure 08/14/2022 Office Visit Neurology Aramis Cheng MD [address] [facility] [address] [place] [address] [facility], Neuroscience Start: 07-15-2022 ANNUAL PCP TEAM CHRONIC DISEASE VISIT ANNUAL PCP TEAM CHRONIC DISEASE VISIT [facility] Start: 04-30-2022 Influenza vaccination [facility] Start: 04-04-2022 Mammography MAMMOGRAM [facility] Start: 04-04-2022 Screening for malignant neoplasm of breast Mammogram [facility] Start: 02-26-2022 Influenza vaccination INFLUENZA (#1) [facility] Comment on above: Postponed from 04/30/2021 (Declined at t his time) Start: 01-22-2022 BP CONTROLLED (<130/80) BP CONTROLLED (<130/80) [facility] Start: 12-25-2021 End: 02-24-2022 Bacteria identified in Urine by Culture URINE CULTURE Microbiology Routine Urinary tract infection symptoms Expected: 12/25/2021, Expires: 02/24/2022 [facility] Work Phone: Comment on above: Expected: 12/25/2021, Expires: 2 Start: 12-25-2021 End: 02-24-2022 Urinalysis complete panel - Urine URINALYSIS, WITH MICROSCOPIC Lab Routine Urinary tract infection symptoms Expected: 12/25/2021, Expires: 02/24/2022 [facility] Work Phone: Comment on above: Expected: 12/25/2021, Expires: 2 Start: 12-17-2021 End: 02-16-2022 FERRITIN BLD FERRITIN BLD Lab Routine Anemia, unspecified type Expected: 12/17/2021, Expires: 02/16/2022 [facility] Work Phone: Comment on above: Expected: 12/17/2021, Expires: 2 Start: 12-17-2021 End: 02-16-2022 Folate [Mass/volume] in Serum or Plasma FOLATE SERUM Lab Routine Anemia, unspecified type Expected: 12/17/2021, Expires: 02/16/2022 [facility] Work Phone: Comment on above: Expected: 12/17/2021, Expires: 2 Start: 12-17-2021 End: 02-16-2022 IRON + TIBC IRON + TIBC Lab Routine Anemia, unspecified type Expected: 12/17/2021, Expires: 02/16/2022 [facility] Work Phone: Comment on above: Expected: 12/17/2021, Expires: 2 Start: 12-17-2021 End: 02-16-2022 VITAMIN B12 BLOOD VITAMIN B12 BLOOD Lab Routine Anemia, unspecified type Expected: 12/17/2021, Expires: 02/16/2022 [facility] Work Phone: Comment on above: Expected: 12/17/2021, Expires: 2 Start: 08-30-2021 ADVANCE DIRECTIVE DISCUSSION ADVANCE DIRECTIVE DISCUSSION [facility] Start: 04-30-2021 Influenza vaccination Sequential Influenza Vaccine (#1) [facility] Start: 08-06-2020 End: 08-06-2020 Office Visit 08/06/2020 Office Visit Neurology Aramis Cheng MD [address] [place] [address] [phone] [facility] Start: 04-30-2020 Influenza vaccination given Sequential Influenza Vaccine (#1) [facility] Start: 08-15-2019 End: 08-15-2019 Ambulatory 08/15/2019 Office Visit Neurology Aramis Cheng MD [address] [place] [address] [phone] [facility] Start: 08-11-2018 Ambulatory 08/11/2018 Office Visit Neurology Aramis Cheng MD [address] [facility] [address] [place] [address] [phone] [facility] Start: 04-30-2018 Influenza vaccination SEQUENTIAL INFLUENZA VACCINE (#1) [facility] Start: 12-09-2016 Screening for malignant neoplasm of lung Low-dose CT Lung Cancer Screen [facility] Start: 12-02-2016 Pneumococcal vaccination PNEUMOCOCCAL VACCINE AGE 65+ (2 of 2 - PCV13) [facility] Start: 2015 Fall risk assessment Falls Risk Assessment [facility] Start: 2010 RSV Vaccine (1 - 1-dose 60+ series) RSV Vaccine (1 - 1-dose 60+ series) [facility] Start: 2010 Zoster vacc, sc ZOSTER VACCINE [facility] Work Phone: Start: 2000 Administration of herpes zoster vaccine Zoster Vaccines (1 of 2) [facility] Start: 2000 Screening for malignant neoplasm of colon [facility] Start: 2000 SHINGRIX VACCINE (1 of 2) SHINGRIX VACCINE (1 of 2) [facility] Start: 2000 ZOSTER VACCINES (1 of 2) ZOSTER VACCINES (1 of 2) [facility] Start: 1995 COLOGUARD (FIT-DNA) COLOGUARD (FIT-DNA) [facility] Start: 1995 FECAL OCCULT BLOOD FECAL OCCULT BLOOD [facility] Start: 1995 Screening for malignant neoplasm of colon [facility] Start: 1995 SIGMOIDOSCOPY SIGMOIDOSCOPY [facility] Start: 1968 Hepatitis C antibody, confirmatory test Hepatitis C Screening [facility] Start: 1968 Hepatitis C screening Hepatitis C Screening [facility] Start: 1966 COVID-19 Vaccine (1 of 2) COVID-19 Vaccine (1 of 2) [facility] Start: 1962 COVID-19 Vaccine (1) COVID-19 Vaccine (1) [facility] Start: 1953 History and physical examination, annual for health maintenance Wellness Visit [facility] Start: 01-15-1951 COVID-19 Vaccine (#1) COVID-19 Vaccine (#1) [facility] Start: 1950 Adult depression screening assessment DEPRESSION SCREENING (PHQ9) [facility] Start: 1950 Fall risk assessment Falls Risk Assessment [facility] Start: 1950 Hepatitis C antibody, confirmatory test HEPATITIS C SCREENING [facility] Start: 1950 HEPATITIS C SCREENING HEPATITIS C SCREENING [facility] Work Phone: Start: [address] Low-dose [address] Lung Cancer Screen Low-dose CT Lung Cancer Screen [facility] Work Phone: Start: 1950 Screening colonoscopy COLONOSCOPY [facility] Work Phone: Start: 1950 Screening for malignant neoplasm of colon [facility] Start: 1950 Screening for malignant neoplasm of lung Low-dose CT Lung Cancer Screen [facility] Start: 1950 Screening for osteoporosis DEXA SCAN [facility] Start: 1950 Screening mammography Mammogram [facility] Start: 1950 SUBSTANCE ABUSE SCREENING (AUDIT-C) SUBSTANCE ABUSE SCREENING (AUDIT-C) [facility] Start: 1950 Tetanus vaccination TETANUS EVERY 10 YR [facility] Work Phone: Bacteria identified in Urine by Culture URINE CULTURE Microbiology Routine Dysuria 03/31/2022 1:50 PM EDT [facility] Work Phone: End: 04-13-2025 DBT Breast - bilateral screening RUSSELL SCREENING W [facility] Radiology Routine Encounter for screening mammogram for breast cancer 1 Occurrences starting 03/14/2024 until 04/13/2025 [facility] Work Phone: Comment on above: 1 Occurrences starting 03/14/2024 until 04/13/2025 End: 06-10-2023 ECG COMPLETE ECG COMPLETE ECG Routine Cardiomyopathy, nonischemic (HCC) 1 Occurrences starting 06/10/2022 until 06/10/2023 [facility] Work Phone: Comment on above: 1 Occurrences starting 06/10/2022 until 06/10/2023 Hemoglobin.gastroint grace nal.lower [Presence] in Stool by Immunoassay IMMUNOCHEMICAL FECAL OCCULT BLOOD TEST Lab Routine Anemia, unspecified type Ordered: 03/20/2024 [facility] Comment on above: Ordered: 03/20/2024 End: 03-12-2024 PVR ANK PRESS [facility]VR ANK PRESS [facility] Vascular Lab Routine Dermatophytosis of nail PVD (peripheral vascular disease) (HCC) 1 Occurrences starting 03/12/2023 until 03/12/2024 [facility] Work Phone: Comment on above: 1 Occurrences starting 03/12/2023 until 03/12/2024 End: 04-02-2024 Radiologic exam chest 2 views XR CHEST 2V FRONTAL/LAT Radiology Routine Chronic systolic (congestive) heart failure ([facility]) 1 Occurrences starting 03/04/2023 until 04/02/2024 [facility] Work Phone: Comment on above: 1 Occurrences starting 03/04/2023 until 04/02/2024 Removal impacted cer umen irrigation/lvg unilat AMBULATORY EAR LAVAGE/IRRIGATION Procedures Routine Bilateral impacted cerumen Ordered: 06/10/2023 [facility] Work Phone: Comment on above: Ordered: 06/10/2023 End: 06-19-2023 Screening mammography bi 2-view breast inc cad RUSSELL SCREENING Radiology Routine Encounter for screening mammogram for breast cancer 1 Occurrences starting 05/20/2022 until 06/19/2023 [facility] Work Phone: Comment on above: 1 Occurrences starting 05/20/2022 until 06/19/2023 End: 12-28-2024 US Kidney - bilateral and Urinary bladder US KIDNEY/BLADDER Radiology Routine Renal mass 1 Occurrences starting 12/02/2023 until 12/28/2024 [facility] Work Phone: Comment on above: 1 Occurrences starting 12/02/2023 until 12/28/2024 US Kidney - bilatera l and Urinary bladder US KIDNEY/BLADDER Radiology Routine Renal mass 04/10/2024 11:17 AM EDT [facility] Work Phone: [facility] Immunizations Immunization Date Immunization Notes Care Provider Kaycee kevyn 07-16-2020 influenza, high-dose , quadrivalent vaccine (FLUZONE HIGH DOSE QUADRIVALENT) Jonathan Aguila MD Work Phone: [facility] 07-16-2020 influenza virus vacc ine, unspecified formulation Lenin Bhatt MD Work Phone: [facility] 10-30-2019 tetanus toxoid, redu sanjuana diphtheria toxoid, and acellular pertussis vaccine, adsorbed Jonathan Aguila MD Work Phone: [facility] Work Phone: 05-30-2019 influenza, high dose seasonal, preservative-free Jonathan Aguila MD Work Phone: [facility] 11-14-2018 tetanus and diphther ia toxoids, adsorbed, preservative free, for adult use (2 Lf of tetanus toxoid and 2 Lf of diphtheria toxoid) Jonathan Aguila MD Work Phone: [facility] Work Phone: 07-04-2018 influenza, high dose seasonal, preservative-free Jonathan Aguila MD Work Phone: [facility] Work Phone: 06-30-2017 influenza, high dose seasonal, preservative-free Jonathan Aguila MD Work Phone: [facility] 12-28-2016 pneumococcal conjuga te vaccine, 13 valent Jonathan Aguila MD Work Phone: [facility] 09-03-2016 influenza, high dose seasonal, preservative-free Jonathan Aguila MD Work Phone: [facility] Work Phone: 12-03-2015 pneumococcal polysaccharide vaccine, 23 valent; Translations: [pneumococcal] Aramis Cheng [facility] 06-27-2014 influenza, seasonal, injectable, preservative free Jonathan Aguila MD Work Phone: [facility] Work Phone: Payers Date Payer Category Payer Medicaid [facility] MEDICAID [id number] ARE [facility] MEDICAID [id number] 2017-Present [phone] [address] [place] [address] Medicaid [id number] 2017 Medicare [id number] 2017 Medicare [id number] 2017 Medicare xxxxxxxxx [id number] 2017 Medicare [id number] 1950 Unknown [id number] 1950 Unknown [id number] Social History Date Type Detail Facility Start: 08-26-2017 End: 05-24-2024 Tobacco smoking status SCIS Former smoker [facility] Work Phone: End: 03-30-2013 History of tobacco use Current smoker [facility] Work Phone: End: 03-30-2013 History of tobacco use Cigarette Smoker [facility] Work Phone: Start: 08-26-2017 End: 08-04-2020 Cigarettes smoked current (pack per day) - Reported [facility] Start: 1950 Sex Assigned At Not on file [facility] Work Phone: Start: 10-05-2019 End: 05-24-2024 Alcohol intake Current non-drinker of alcohol (finding) [facility] Start: 08-06-2020 End: 05-24-2024 Tobacco use and exposure Never used [facility] Start: 11-30-2021 End: 09-28-2022 Exposure to SARS-CoV-2 (event) Not sure [facility] Start: 08-04-2020 End: 03-04-2023 Tobacco use panel [facility] Adult Depression Screening Assessment 0 [facility] How often to you hav e a drink containing alcohol? Never [facility] Start: 05-24-2024 Education 13 [facility] Medical Equipment Procedure Code Equipment Code Equipment Origin al Text Equipment Identifier Dates Sling Implant Tv t Device W/Blue Mesh - [id number] Start: 12-02-2015 Sling Implant Tv t Device W/Blue Mesh - [id number] Start: 12-02-2015 Sling Implant Tv t Device W/Blue Mesh - [id number] Start: 12-02-2015 Clinical Notes 08-31-2018 to 06-12-2024 Telephone Encounter - Franchesca Castro LPN - 06/12/2024 3:36 PM EDTTelephone Encounter - Franchesca Castro LPN - 06/12/2024 3:36 PM EDTTelephone Encounter - Kenya Barroso RN - 06/12/2024 11:41 AM EDT Note Date & Type Note Facility 06-12-2024 Telephone encounter Note Prescription Refill Information The patient has been identified by name and date of : Yes Caregiver verified no other encounters exist for this prescription request: Yes Caregiver confirmed with patient/requestor that no other refills are due, in the near future, with this provider at this time: Yes The last office visit in the department: 05/24/24 Does the patient have a future office visit with this provider/department: Yes Requested Prescriptions Pending Prescriptions Disp Refills trospium (SANCTURA) 20 mg tablet [Pharmacy Med Name: TROSPIUM CHLORIDE 20 MG TABLET] 60 tablet 2 Sig: TAKE 1 TABLET BY MOUTH TWICE A DAY Franchesca Castro LPN June 12, 2024 3:36 PM [facility] 06-12-2024 Miscellaneous Notes Prescription Refill Information The patient has been identified by name and date of : Yes Caregiver verified no other encounters exist for this prescription request: Yes Caregiver confirmed with patient/requestor that no other refills are due, in the near future, with this provider at this time: Yes The last office visit in the department: 05/24/24 Does the patient have a future office visit with this provider/department: Yes Requested Prescriptions Pending Prescriptions Disp Refills trospium (SANCTURA) 20 mg tablet [Pharmacy Med Name: TROSPIUM CHLORIDE 20 MG TABLET] 60 tablet 2 Sig: TAKE 1 TABLET BY MOUTH TWICE A DAY Franchesca Castro LPN June 12, 2024 3:36 PM documented in this encounter [facility] 06-12-2024 Telephone encounter Note Son (William) calls to report that patient had a fall a few days ago with worsening pain. He reports today that she is having severe pain and unable to ambulate or dress herself. William is going to call an ambulance to have her taken to [facility] ER for evaluation/treatment. Appointment for today cancelled and William will reschedule once patient is seen in ER. Kenya Barroso RN [facility] 06-12-2024 Miscellaneous Notes Son (William) calls to report that patient had a fall a few days ago with worsening pain. He reports today that she is having severe pain and unable to ambulate or dress herself. William is going to call an ambulance to have her taken to [facility] ER for evaluation/treatment. Appointment for today cancelled and William will reschedule once patient is seen in ER. Kenya Barroso RN documented in this encounter [facility] 06-08-2024 Telephone encounter Note The following approved medication requests have been transmitted electronically. Requested Prescriptions Signed Prescriptions Disp Refills acetaminophen-codeine (TYLENOL-COD #3) 300-30 mg per tablet 30 tablet 0 Sig: Take 1 tablet by mouth at bedtime as needed for pain for up to 30 days. Authorizing Provider: LENIN BHATT MD [facility] 06-08-2024 Miscellaneous Notes The following approved medication requests have been transmitted electronically. Requested Prescriptions Signed Prescriptions Disp Refills acetaminophen-codeine (TYLENOL-COD #3) 300-30 mg per tablet 30 tablet 0 Sig: Take 1 tablet by mouth at bedtime as needed for pain for up to 30 days. Authorizing Provider: LENIN BHATT MD Patient has been identified by name and date of : Yes Patient phones for refill(s): Requested Prescriptions Pending Prescriptions Disp Refills acetaminophen-codeine (TYLENOL-COD #3) 300-30 mg per tablet 30 tablet 0 Sig: Take 1 tablet by mouth at bedtime as needed for pain for up to 30 days. Date of last office visit in primary care: 03/14/2024 Date of next office visit in primary care: 06/12/2024 Please advise. Thank you. Sheila Munoz LPN. documented in this encounter [facility] 06-07-2024 Telephone encounter Note Patient has been identified by name and date of : Yes Patient phones for refill(s): Requested Prescriptions Pending Prescriptions Disp Refills acetaminophen-codeine (TYLENOL-COD #3) 300-30 mg per tablet 30 tablet 0 Sig: Take 1 tablet by mouth at bedtime as needed for pain for up to 30 days. Date of last office visit in primary care: 03/14/2024 Date of next office visit in primary care: 06/12/2024 Please advise. Thank you. Sheila Munoz LPN. [facility] 05-30-2024 Telephone encounter Note Patient has been identified by name and date of : Yes Patient phones for refill(s): Requested Prescriptions Pending Prescriptions Disp Refills aspirin, enteric coated (JOSE LOW DOSE ASPIRIN) 81 mg EC tablet 90 tablet 3 Sig: Take 1 tablet by mouth once daily. carvedilol (COREG) 12.5 mg tablet 180 tablet 3 Sig: Take 1 tablet by mouth two times a day with meals. multivitamin tablet 90 tablet 3 Sig: Take 1 tablet by mouth once daily. Date of last office visit in primary care: 03/14/2024 Date of next office visit in primary care: 06/12/2024 Please advise. Thank you. Sheila Munoz LPN. [facility] 05-30-2024 Miscellaneous Notes Patient has been identified by name and date of : Yes Patient phones for refill(s): Requested Prescriptions Pending Prescriptions Disp Refills aspirin, enteric coated (JOSE LOW DOSE ASPIRIN) 81 mg EC tablet 90 tablet 3 Sig: Take 1 tablet by mouth once daily. carvedilol (COREG) 12.5 mg tablet 180 tablet 3 Sig: Take 1 tablet by mouth two times a day with meals. multivitamin tablet 90 tablet 3 Sig: Take 1 tablet by mouth once daily. Date of last office visit in primary care: 03/14/2024 Date of next office visit in primary care: 06/12/2024 Please advise. Thank you. Sheila Munoz LPN. documented in this encounter [facility] 05-24-2024 Telephone encounter Note Patient to call. Sheila Munoz LPN [facility] 05-24-2024 Miscellaneous Notes Patient to call. Sheila Munoz LPN documented in this encounter [facility] 04-19-2024 Telephone encounter Note The following approved medication requests have been transmitted electronically. Requested Prescriptions Signed Prescriptions Disp Refills acetaminophen-codeine (TYLENOL-COD #3) 300-30 mg per tablet 30 tablet 0 Sig: Take 1 tablet by mouth at bedtime as needed for pain for up to 30 days. Authorizing Provider: LENIN BHATT MD [facility] 04-19-2024 Miscellaneous Notes The following approved medication requests have been transmitted electronically. Requested Prescriptions Signed Prescriptions Disp Refills acetaminophen-codeine (TYLENOL-COD #3) 300-30 mg per tablet 30 tablet 0 Sig: Take 1 tablet by mouth at bedtime as needed for pain for up to 30 days. Authorizing Provider: LENIN BHATT MD The patient has been identified by name and date of : Yes Caregiver verified no other encounters exist for this prescription request: Yes Caregiver confirmed with patient/requestor that no other refills are due, in the near future, with this provider at this time: Yes The last office visit in the department: 03/14/2024 Does the patient have a future office visit with this provider/department: Yes 04/19/2024 Requested Prescriptions Pending Prescriptions Disp Refills acetaminophen-codeine (TYLENOL-COD #3) 300-30 mg per tablet 30 tablet 0 Sig: Take 1 tablet by mouth at bedtime as needed for pain for up to 30 days. Gloria Martinez RN April 18, 2024 2:56 PM documented in this encounter [facility] 04-18-2024 Telephone encounter Note The patient has been identified by name and date of : Yes Caregiver verified no other encounters exist for this prescription request: Yes Caregiver confirmed with patient/requestor that no other refills are due, in the near future, with this provider at this time: Yes The last office visit in the department: 03/14/2024 Does the patient have a future office visit with this provider/department: Yes 04/19/2024 Requested Prescriptions Pending Prescriptions Disp Refills acetaminophen-codeine (TYLENOL-COD #3) 300-30 mg per tablet 30 tablet 0 Sig: Take 1 tablet by mouth at bedtime as needed for pain for up to 30 days. Gloria Martinez RN April 18, 2024 2:56 PM [facility] 04-13-2024 Telephone encounter Note Spoke with patient and advised of results. Edmund Weeks MA [facility] 04-13-2024 Miscellaneous Notes Spoke with patient and advised of results. Edmund Weeks MA Images from the original note were not included. Message Received: Yesterday Zachariah Gonzales Jr., MD [facility] Ul[facility]ound is stable documented in this encounter [facility] 04-13-2024 Telephone encounter Note Images from the original note were not included. Message Received: Yesterday Zachariah Gonzales Jr., MD [facility] [employer] Ultrasound is stable [facility] 04-10-2024 History of Presen t illness Narrative Radiology Service Progress Note PATIENT NAME: Dalia Lopez DATE OF SERVICE: April 10, 2024 TIME: 11:18 AM PATIENT IDENTITY VERIFICATION COMPLETED USING TWO (2) IDENTIFIERS: Name and Date of confirmed by patient verbally. FALL SCREENING: Has the patient had 2 falls in the last year or 1 fall with injury or currently using an Ambulatory Assistive Device (Walker, Cane, Wheelchair, Crutches, etc.)? Yes, Patient High Risk for Falls What interventions were put in place to prevent falls during this visit? Instructed Patient to Call for Help if Needed, Offered Assistance with Transfers/Clothing, Instructed Patient to Remain Seated (Not on Exam Table) Until Exam, and Increased Observations by Caregivers PATIENT GENDER DATA: Female. status: : No status: NO. PATIENT RELEVANT IMPLANT DATA REVIEWED: Not Applicable PATIENT PRESENTS WITH AN IMPLANTABLE OR ATTACHED FILLING CARRIER: No RADIOLOGY DEPARTMENT: Ultrasound PERIPHERAL IV DATA: Not applicable SIGNED BY: April Avalos RDMS RVT April 10, 2024 11:18 AM documented in this encounter [facility] 04-10-2024 Note HNO ID: [id number] Author: APRIL AVALOS RDMS Service: ? Author Type: Vest Backer Type: Progress Notes Filed: 04/10/2024 11:19 Note Text: Radiology Service Progress Note PATIENT NAME: Dalia Lopez DATE OF SERVICE: April 10, 2024 TIME: 11:18 AM PATIENT IDENTITY VERIFICATION COMPLETED USING TWO (2) IDENTIFIERS: Name and Date of confirmed by patient verbally. FALL SCREENING: Has the patient had 2 falls in the last year or 1 fall with injury or currently using an Ambulatory Assistive Device (Walker, Cane, Wheelchair, Crutches, etc.)? Yes, Patient High Risk for Falls What interventions were put in place to prevent falls during this visit? Instructed Patient to Call for Help if Needed, Offered Assistance with Transfers/Clothing, Instructed Patient to Remain Seated (Not on Exam Table) Until Exam, and Increased Observations by Caregivers PATIENT GENDER DATA: Female. status: : No status: NO. PATIENT RELEVANT IMPLANT DATA REVIEWED: Not Applicable PATIENT PRESENTS WITH AN IMPLANTABLE OR ATTACHED FILLING CARRIER: No RADIOLOGY DEPARTMENT: Ultrasound PERIPHERAL IV DATA: Not applicable SIGNED BY: April Avalos RDMS RVT April 10, 2024 11:18 AM [facility] 03-24-2024 Telephone encounter Note Prescription Refill Information The patient has been identified by name and date of : Yes Caregiver verified no other encounters exist for this prescription request: Yes Caregiver confirmed with patient/requestor that no other refills are due, in the near future, with this provider at this time: Yes The last office visit in the department: 03/14/2024 Does the patient have a future office visit with this provider/department: Yes Requested Prescriptions Pending Prescriptions Disp Refills atorvastatin (LIPITOR) 20 mg tablet 90 tablet 3 Sig: Take 1 tablet by mouth once daily. Yohan Bustillo MA March 24, 2024 9:18 AM [facility] 03-24-2024 Miscellaneous Notes Prescription Refill Information The patient has been identified by name and date of : Yes Caregiver verified no other encounters exist for this prescription request: Yes Caregiver confirmed with patient/requestor that no other refills are due, in the near future, with this provider at this time: Yes The last office visit in the department: 03/14/2024 Does the patient have a future office visit with this provider/department: Yes Requested Prescriptions Pending Prescriptions Disp Refills atorvastatin (LIPITOR) 20 mg tablet 90 tablet 3 Sig: Take 1 tablet by mouth once daily. Yohan Bustillo MA March 24, 2024 9:18 AM documented in this encounter [facility] 03-21-2024 Telephone encounter Note Notification received that [employer] message was not read. TC to pt's son William. Notified and verbalized understanding of instructions. [facility] 03-21-2024 Miscellaneous Notes Notification received that [employer] message was not read. TC to pt's son William. Notified and verbalized understanding of instructions. documented in this encounter [facility] 03-14-2024 Instructions Moira Hearn, [employer].PROTOZOOLOGY TEACHER - 03/14/2024 2:25 PM EDT Decrease Lisinopril to 2.5 mg daily, call for prescription refill when needed Screening schedule The following prevention plan is recommended: Shingrix Vaccine(1 of 2) Never done RSV Vaccine(1 - 1-dose 60+ series) Never done Mammogram Screening due on 03/22/2024 WHAT YOU CAN DO TO PREVENT FALLS Many falls can be prevented. By making some changes, you can lower your chances of falling. Four things YOU can do to prevent falls for you* and your caregiver 1. Begin a regular exercise program Exercise is one of the most important ways to lower your chances of falling. It makes you stronger and helps you feel better. Exercises that improve balance and coordination (like Kevon Chi) are the most helpful. Lack of exercise leads to weakness and increases your chances of falling. Ask your doctor or health care provider about the best type of exercise program for you. 2. Have your health care provider review your medicines Have your doctor or pharmacist review all the medicines you take, even [id number] medicines. As you get older, the way medicines work in your body can change. Some medicines, or combinations of medicines, can make you sleepy or dizzy and can cause you to fall. 3. Have your vision checked Have your eyes checked by an eye doctor at least once a year. You may be wearing the wrong glasses or have a condition like glaucoma or cataracts that limits your vision. Poor vision can increase your chances of falling. 4. Make your home safer About half of all falls happen at home. To make your home safer: Remove things you can trip over (like papers, books, clothes, and shoes) from stairs and places where you walk. Remove small throw rugs or use double-sided tape to keep the rugs from slipping. Keep items you use often in cabinets you can reach easily without using a step stool. Have grab bars put in next to your toilet and in the tub or shower. Use non-slip mats in the bathtub and on shower floors. Improve the lighting in your home. As you get older, you need brighter lights to see well. Hang light-weight curtains or shades to reduce glare. Have handrails and lights put in on all staircases. Wear shoes both inside and outside the house. Avoid going barefoot or wearing slippers. For more information, contact: Centers for Disease Control and Prevention www.cdc.gov/injury * This information may not apply if you have certain medical conditions. documented in this encounter [facility] 03-14-2024 Note HNO ID: [id number] Author: MOIRA HEARN APRN.JUSTICE Service: ? Author Type: Nurse Practitioner Type: Progress Notes Filed: 03/15/2024 07:25 Note Text: Dalia Lopez is a 73 year old female here for a Medicare wellness visit. Medicare Health Risk Assessment General Health Fair Exercise: Minutes/Day 0 min Exercise: Days/Week 0 days Alcohol: Daily Use Never Alcohol: Drinks/Day Patient does not drink Alcohol: 6 or more drinks Never Feel off balance Yes Concerns: Teeth/Dentures No Concerns: Sexual function No Troubled by feelings None of the above Frequency: Eating healthy diet More than half the days ADLs requiring help Grocery shopping; Taking medications; Cooking; Sitting or standing; Housework; Handling finances; Driving Safety precautions in home/vehicle Yes (no grab bars, don't work in her shower) Smoke, vape, chews tobacco No Difficulty hearing Yes Difficulty seeing Yes Current Providers Specialists: I have reviewed specialist-related care of the patient in the medical record. Current care team: Patient Care Team: Lenin Bhatt MD as PCP - General Outside specialists seen: sewage reticulation drafting officer- Dr. Jonathan Aguila, neurology- Dr. Aramis Cheng Medical/Family history review Reviewed and updated problem list, medical/surgical/family/social history, medications, and allergies. Opioid use review Opioid Medications (last 90 days) 01/09/2024 23:59 01/10/2024 00:00 03/14/2024 Opioid Medications acetaminophen with codeine 1 tablet AT BEDTIME ORAL -Discontinued No sig acetaminophen with codeine 1 tablet AT BEDTIME ORAL 1 tablet AT BEDTIME ORAL-Discontinued acetaminophen with codeine 1 tablet AT BEDTIME PRN ORAL Details Outpatient prescription Medication marked as long-term Prescribed acetaminophen with codeine (last 90 days) Does patient have risk factors for opioid abuse? No Pain overview Current pain concerns and treatment plan reviewed. Patient stable on current treatment plan. Anxiety/Depression screening PHQ-2 Score: 0 Recommendation: no further intervention at this time Cognitive screening Mini Cog Score: 0 Cognitive screening reviewed and Recommended referral for further evaluation (score 0-2). Referred to geriatrics Functional Observation Was the patient's Timed Up AND Go test unsteady or ? 12 seconds? No Advance Care Planning Patient was not able to provide a surrogate decision maker or written advance directives Measurements BP 98/56 Pulse 90 Resp 18 Ht 5' 2.795 (1.60m) Wt 150 lb (68.0kg) SpO2 96% BMI 26.75 kg/(m2). Vision Screening: Follows with optometry/ophthalmology Assessment/Plan Medicare annual wellness visit, subsequent (Z00.00) - Counseled on healthy diet and regular exercise - Fall avoidance information provided - Personalized prevention plan provided Additional Concerns The following concerns were also discussed with the patient: Patient is here today with her son whom she lives with. Her BP is low today which it has been on the lower side for some time now. She reports occasional positional lightheadedness, mostly in the mornings. Denies chest pain, palpitations, SOB, edema, syncope or feeling faint. She needs a refill of Tylenol with codeine for chronic BLE pain secondary to PVD. She takes this a few times a week and it is effective at managing her pain. without side effects. Taking all other medications as prescribed, denies side effects. PHYSICAL EXAM BP 98/56 Pulse 90 Resp 18 Ht 159.5 cm (5' 2.8 ) Wt 68 kg (150 lb) SpO2 96% BMI 26.75 kg/m? GENERAL: well appearing, alert, in no acute distress CARDIOVASCULAR: regular rate and rhythm. No murmur, rubs or gallops. PULMONARY: clear to auscultation, no wheezing, rhonchi, or crackles ASSESSMENT/PLAN: 1. Medicare annual wellness visit, subsequent - ICD9: V70.0, ICD10: Z00.00 (primary diagnosis) See medicare wellness note 2. Pain in both lower extremities - ICD9: 729.5, ICD10: M79.604, M79.605 Chronic pain secondary to PVD. Manageable with Tylenol with codeine - Prescribed Morphine Equivalent Daily Dose (MEDD): 0 - Course of treatment, patient's response and adherence to the prescribed treatment plan reviewed, including non-pharmacological and non-opioid treatment modalities. Rationale for continuing opioid treatment: improved pain and function. Benefits of opioid therapy outweigh the risks. - Reviewed opioid side effects, risks including accidental overdose, addiction and abuse with patient PDMP website checked and validated. All prescriptions have been APPROPRIATELY filled. No suspicious activity was identified. 03/15/2024 by Moira Hearn APRN.PROTOZOOLOGY TEACHER - ACETAMINOPHEN 300 MG-CODEINE 30 MG TABLET 3. Essential hypertension - ICD9: 401.9, ICD10: I10 BP low, patient experiencing positional lightheadedness but otherwise asymptomatic - Decrease Lisinopril to 2.5 mg daily - Recommend home blood pressure monitoring, (more content not included)... [facility] 03-14-2024 History of Presen t illness Narrative Images from the original note were not included. Dalia Lopez is a 73 year old female here for a Medicare wellness visit. Medicare Health Risk Assessment General Health Fair Exercise: Minutes/Day 0 min Exercise: Days/Week 0 days Alcohol: Daily Use Never Alcohol: Drinks/Day Patient does not drink Alcohol: 6 or more drinks Never Feel off balance Yes Concerns: Teeth/Dentures No Concerns: Sexual function No Troubled by feelings None of the above Frequency: Eating healthy diet More than half the days ADLs requiring help Grocery shopping; Taking medications; Cooking; Sitting or standing; Housework; Handling finances; Driving Safety precautions in home/vehicle Yes (no grab bars, don't work in her shower) Smoke, vape, chews tobacco No Difficulty hearing Yes Difficulty seeing Yes Current Providers Specialists: I have reviewed specialist-related care of the patient in the medical record. Current care team: Patient Care Team: Lenin Bhatt MD as PCP - General Outside specialists seen: sewage reticulation drafting officer- Dr. Jonathan Aguila, neurology- Dr. Aramis Cheng Medical/Family history review Reviewed and updated problem list, medical/surgical/family/social history, medications, and allergies. Opioid use review Opioid Medications (last 90 days) 01/09/2024 23:59 01/10/2024 00:00 03/14/2024 Opioid Medications acetaminophen with codeine 1 tablet AT BEDTIME ORAL -Discontinued No sig acetaminophen with codeine 1 tablet AT BEDTIME ORAL 1 tablet AT BEDTIME ORAL-Discontinued acetaminophen with codeine 1 tablet AT BEDTIME PRN ORAL Details Outpatient prescription Medication marked as long-term Prescribed acetaminophen with codeine (last 90 days) Does patient have risk factors for opioid abuse? No Pain overview Current pain concerns and treatment plan reviewed. Patient stable on current treatment plan. Anxiety/Depression screening PHQ-2 Score: 0 Recommendation: no further intervention at this time Cognitive screening Mini Cog Score: 0 Cognitive screening reviewed and Recommended referral for further evaluation (score 0-2). Referred to geriatrics Functional Observation Was the patient's Timed Up & Go test unsteady or ? 12 seconds? No Advance Care Planning Patient was not able to provide a surrogate decision maker or written advance directives Measurements BP 98/56 Pulse 90 Resp 18 Ht 5' 2.795 (1.60m) Wt 150 lb (68.0kg) SpO2 96% BMI 26.75 kg/(m^2). Vision Screening: Follows with optometry/ophthalmology Assessment/Plan Medicare annual wellness visit, subsequent (Z00.00) - Counseled on healthy diet and regular exercise - Fall avoidance information provided - Personalized prevention plan provided Additional Concerns The following concerns were also discussed with the patient: Patient is here today with her son whom she lives with. Her BP is low today which it has been on the lower side for some time now. She reports occasional positional lightheadedness, mostly in the mornings. Denies chest pain, palpitations, SOB, edema, syncope or feeling faint. She needs a refill of Tylenol with codeine for chronic BLE pain secondary to PVD. She takes this a few times a week and it is effective at managing her pain. without side effects. Taking all other medications as prescribed, denies side effects. PHYSICAL EXAM BP 98/56 Pulse 90 Resp 18 Ht 159.5 cm (5' 2.8 ) Wt 68 kg (150 lb) SpO2 96% BMI 26.75 kg/m GENERAL: well appearing, alert, in no acute distress CARDIOVASCULAR: regular rate and rhythm. No murmur, rubs or gallops. PULMONARY: clear to auscultation, no wheezing, rhonchi, or crackles ASSESSMENT/PLAN: 1. Medicare annual wellness visit, subsequent - ICD9: V70.0, ICD10: Z00.00 (primary diagnosis) See medicare wellness note 2. Pain in both lower extremities - ICD9: 729.5, ICD10: M79.604, M79.605 Chronic pain secondary to PVD. Manageable with Tylenol with codeine - Prescribed Morphine Equivalent Daily Dose (MEDD): 0 - Course of treatment, patient's response and adherence to the prescribed treatment plan reviewed, including non-pharmacological and non-opioid treatment modalities. Rationale for continuing opioid treatment: improved pain and function. Benefits of opioid therapy outweigh the risks. - Reviewed opioid side effects, risks including accidental overdose, addiction and abuse with patient PDMP website checked and validated. All prescriptions have been APPROPRIATELY filled. No suspicious activity was identified. 03/15/2024 by Moira Hearn, [employer].PROTOZOOLOGY TEACHER - ACETAMINOPHEN 300 MG-CODEINE 30 MG TABLET 3. Essential hypertension - ICD9: 401.9, ICD10: I10 BP low, patient experiencing positional lightheadedness but otherwise asymptomatic - Decrease Lisinopril to 2.5 mg daily - Recommend home blood pressure monitoring, to bring results to next visit 4. Abnormal mini-mental status exam - ICD9: 780.97, ICD10: F99 - CONSULT TO GERIATRICS 5. 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 Aphasia, late effect of cerebrovascular disease - ICD9: 438.11, ICD10: I69.920 - CONSULT TO GERIATRICS 7. PVD (peripheral vascular disease) (HCC) - ICD9: 443.9, ICD10: I73.9 See #2 8. Hyperlipidemia, unspecified hyperlipidemia type - ICD9: 272.4, ICD10: E78.5 - Control undetermined, due for labs - LIPID PANEL, NONFASTING 9. Impaired fasting glucose - ICD9: 790.21, ICD10: R73.01 Recheck - HEMOGLOBIN A1C 10. Encounter for routine eye and vision examination - ICD9: V72.0, ICD10: Z01.00 Overdue for routine eye exam - CONSULT TO OPHTHALMOLOGY 11. Current moderate episode of major depressive disorder, unspecified whether recurrent (HCC) - ICD9: 296.22, ICD10: F32.1 Stable 12. Encounter for screening mammogram for breast cancer - ICD9: V76.12, ICD10: Z12.31 - RUSSELL SCREENING W YUKI Hearn APRN.PROTOZOOLOGY TEACHER documented in this encounter [facility] 03-13-2024 Telephone encounter Note Patient has been identified by name and date of : Yes Patient phones for refill(s): Requested Prescriptions Pending Prescriptions Disp Refills levETIRAcetam (KEPPRA) 500 mg tablet 180 tablet 1 Sig: Take 1 tablet by mouth two times a day. Date of last office visit in primary care: 12/09/2023 Date of next office visit in primary care: 03/14/2024 Please advise. Thank you. Sheila Munoz LPN. [facility] 03-13-2024 Miscellaneous Notes Patient has been identified by name and date of : Yes Patient phones for refill(s): Requested Prescriptions Pending Prescriptions Disp Refills levETIRAcetam (KEPPRA) 500 mg tablet 180 tablet 1 Sig: Take 1 tablet by mouth two times a day. Date of last office visit in primary care: 12/09/2023 Date of next office visit in primary care: 03/14/2024 Please advise. Thank you. Sheila Munoz LPN. documented in this encounter [facility] 01-10-2024 Telephone encounter Note Requested Prescriptions Pending Prescriptions Disp Refills acetaminophen-codeine (TYLENOL-COD #3) 300-30 mg per tablet 30 tablet 0 Sig: Take 1 tablet by mouth daily at bedtime for 30 days. Date of last office visit in primary care: 12/09/2023 Date of next office visit in primary care: 03/14/2024 Please advise. Thank you. Yohan Bustillo MA. [facility] 01-10-2024 Miscellaneous Notes Requested Prescriptions Pending Prescriptions Disp Refills acetaminophen-codeine (TYLENOL-COD #3) 300-30 mg per tablet 30 tablet 0 Sig: Take 1 tablet by mouth daily at bedtime for 30 days. Date of last office visit in primary care: 12/09/2023 Date of next office visit in primary care: 03/14/2024 Please advise. Thank you. Yohan Bustillo MA. documented in this encounter [facility] 12-09-2023 Note HNO ID: [id number] Author: LENIN BHATT MD Service: ? Author Type: Physician Type: Progress Notes Filed: 12/09/2023 09:58 Note Text: This note was created using Octopusappriter. Subjective Dalia Lopez is a 73 year old female here with her son William. She's had some edema the past few weeks with no change in dyspnea. What was more bothersome was moderate throbbing pain in both legs equally at night. She had known PAD. She was on multiple medications, including seizure medications. She was taking furosemide as needed. She used oxygen continuously at home. Review of Systems Constitutional: Negative for fever and unexpected weight change. Respiratory: Negative for cough, shortness of breath and wheezing. Cardiovascular: Positive for leg swelling. Negative for chest pain and palpitations. Gastrointestinal: Negative. Musculoskeletal: Positive for myalgias. Skin: Negative for wound. 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 Essential Hypertension Seizure As Late Effect of Cerebrovascular Accident (Cva) (Hcc) Pvd (Peripheral Vascular Disease) (Hcc) Acquired Hypothyroidism Hyperlipidemia Anxiety Associated With Depression Impaired Fasting Glucose Mass of Left Kidney Urinary Incontinence Bronchospasm Acute On Chronic Respiratory Failure With Hypoxemia (Hcc) Ischemic Cardiomyopathy Chronic Systolic (Congestive) Heart Failure (Hcc) Current Moderate Episode of Major Depressive Disorder (Hcc) Sacral Decubitus Ulcer, Stage II ([facility]) Kidney Insufficiency Bacteriuria With Pyuria Arteriosclerosis of Coronary Artery Closed Head Injury History of Stroke Lbbb (Left Bundle Branch Block) Leukopenia Recurrent Falls Seizure (Hcc) Covid-19 Localization-Related Epilepsy ([facility]) Open Wound of Hand Chronic Bronchitis, Unspecified Chronic Bronchitis Type ([facility]) Social History Tobacco Use Smoking status: Former Types: Cigarettes Quit date: 03/30/2013 Years since quittin.7 Smokeless tobacco: Never Vaping Use Vaping Use: Never used Substance Use Topics Alcohol use: No Drug use: No Current Outpatient Medications Medication Sig furosemide (LASIX) 20 mg tablet take 1 tablet by mouth once daily if needed nystatin (MYCOSTATIN) powder Apply 1 application to affected area two times a day. levETIRAcetam (KEPPRA) 500 mg tablet Take 1 tablet by mouth two times a day. aspirin, enteric coated (JOSE LOW DOSE ASPIRIN) 81 mg EC tablet Take 1 tablet by mouth once daily. atorvastatin (LIPITOR) 20 mg tablet Take 1 tablet by mouth once daily. carvedilol (COREG) 12.5 mg tablet Take 1 tablet by mouth twice daily with meals. multivitamin tablet Take 1 tablet by mouth once daily. lisinopril (ZESTRIL) 5 mg tablet Take 1 tablet by mouth once daily. spironolactone (ALDACTONE) 25 mg tablet Take 1 tablet by mouth once daily. sertraline (ZOLOFT) 100 mg tablet Take 1.5 tablets by mouth once daily. clopidogrel (PLAVIX) 75 mg tablet Take 1 tablet by mouth once daily. levothyroxine (SYNTHROID) 50 mcg tablet Take 1 tablet by mouth once daily. on an empty stomach 1/2 hour before meal. albuterol (PROVENTIL) 2.5 mg /3 mL (0.083 %) nebulizer solution Use 3 mL via nebulizer every 6 hours as needed for wheezing/shortness of breath. Use over 5-15minutes. albuterol HFA (VENTOLIN HFA) 90 mcg/actuation inhaler Inhale 2 Puffs as instructed every 4 hours as needed for wheezing/shortness of breath. COMPOUNDED PRESCRIPTION Oxygen Portable tanks (D tanks with carry bag). O2 via nasal cannula at 2 LPM continuous. Dx: Heart failure, unspecified HF chronicity, unspecified heart failure type (HCC) - ICD9: 428.9, ICD10: I50.9 Acute on chronic respiratory failure with hypoxemia (HCC) - ICD9: 518.84, ICD10: J96.21 Pulse oximetry is 94% room air at rest. 85% with ambulation. 97% with O2 via NC at LPM. COMPOUNDED PRESCRIPTION NEBULIZER FOR HOME USE. DX: CHF, bronchospasm. No current facility-administered medications for this visit. Objective Blood Pressure 118/60 (BP Site: Left Arm, BP Position: Sitting, BP Cuff Size: Large Adult) Pulse 76 Temperature 36.9 ?C (98.4 ?F) (Temporal) Respiration 20 Weight 70.8 kg (156 lb) Body Mass Index 26.78 kg/m? Physical Exam Constitutional: General: She is not in acute distress. Appearance: She is not ill-appearing or diaphoretic. HENT: Head: Normocephalic. Cardiovascular: Rate and Rhythm: Normal rate and regular rhythm. Heart sounds: No murmur heard. No gallop. Pulmonary: Effort: No respiratory distress. Breath sounds: No wheezing or rales. Musculoskeletal: Right lower le+ Pitting Edema present. Left lower le+ Edema present. Skin: General: Skin is warm and dry. Comments: Mild sacral irritation without ulcer. Neurological: General: No focal deficit present. Mental Status: She is alert. Comments: On whe (more content not included)... [facility] 12-09-2023 History of Presen t illness Narrative This note was created using Octopusappriter. Subjective Dalia Lopez is a 73 year old female here with her son William. She's had some edema the past few weeks with no change in dyspnea. What was more bothersome was moderate throbbing pain in both legs equally at night. She had known PAD. She was on multiple medications, including seizure medications. She was taking furosemide as needed. She used oxygen continuously at home. Review of Systems Constitutional: Negative for fever and unexpected weight change. Respiratory: Negative for cough, shortness of breath and wheezing. Cardiovascular: Positive for leg swelling. Negative for chest pain and palpitations. Gastrointestinal: Negative. Musculoskeletal: Positive for myalgias. Skin: Negative for wound. 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 Essential Hypertension Seizure As Late Effect of Cerebrovascular Accident (Cva) ([facility]) Pvd (Peripheral Vascular Disease) ([facility]) Acquired Hypothyroidism Hyperlipidemia Anxiety Associated With Depression Impaired Fasting Glucose Mass of Left Kidney Urinary Incontinence Bronchospasm Acute On Chronic Respiratory Failure With Hypoxemia ([facility]) Ischemic Cardiomyopathy Chronic Systolic (Congestive) Heart Failure ([facility]) Current Moderate Episode of Major Depressive Disorder ([facility]) Sacral Decubitus Ulcer, Stage II ([facility]) Kidney Insufficiency Bacteriuria With Pyuria Arteriosclerosis of Coronary Artery Closed Head Injury History of Stroke Lbbb (Left Bundle Branch Block) Leukopenia Recurrent Falls Seizure ([facility]) Covid-19 Localization-Related Epilepsy ([facility]) Open Wound of Hand Chronic Bronchitis, Unspecified Chronic Bronchitis Type ([facility]) Social History Tobacco Use Smoking status: Former Types: Cigarettes Quit date: 03/30/2013 Years since quittin.7 Smokeless tobacco: Never Vaping Use Vaping Use: Never used Substance Use Topics Alcohol use: No Drug use: No Current Outpatient Medications Medication Sig furosemide (LASIX) 20 mg tablet take 1 tablet by mouth once daily if needed nystatin (MYCOSTATIN) powder Apply 1 application to affected area two times a day. levETIRAcetam (KEPPRA) 500 mg tablet Take 1 tablet by mouth two times a day. aspirin, enteric coated (JOSE LOW DOSE ASPIRIN) 81 mg EC tablet Take 1 tablet by mouth once daily. atorvastatin (LIPITOR) 20 mg tablet Take 1 tablet by mouth once daily. carvedilol (COREG) 12.5 mg tablet Take 1 tablet by mouth twice daily with meals. multivitamin tablet Take 1 tablet by mouth once daily. lisinopril (ZESTRIL) 5 mg tablet Take 1 tablet by mouth once daily. spironolactone (ALDACTONE) 25 mg tablet Take 1 tablet by mouth once daily. sertraline (ZOLOFT) 100 mg tablet Take 1.5 tablets by mouth once daily. clopidogrel (PLAVIX) 75 mg tablet Take 1 tablet by mouth once daily. levothyroxine (SYNTHROID) 50 mcg tablet Take 1 tablet by mouth once daily. on an empty stomach 1/2 hour before meal. albuterol (PROVENTIL) 2.5 mg /3 mL (0.083 %) nebulizer solution Use 3 mL via nebulizer every 6 hours as needed for wheezing/shortness of breath. Use over 5-15minutes. albuterol HFA (VENTOLIN HFA) 90 mcg/actuation inhaler Inhale 2 Puffs as instructed every 4 hours as needed for wheezing/shortness of breath. COMPOUNDED PRESCRIPTION Oxygen Portable tanks (D tanks with carry bag). O2 via nasal cannula at 2 LPM continuous. Dx: Heart failure, unspecified HF chronicity, unspecified heart failure type (HCC) - ICD9: 428.9, ICD10: I50.9 Acute on chronic respiratory failure with hypoxemia (HCC) - ICD9: 518.84, ICD10: J96.21 Pulse oximetry is 94% room air at rest. 85% with ambulation. 97% with O2 via NC at LPM. COMPOUNDED PRESCRIPTION NEBULIZER FOR HOME USE. DX: CHF, bronchospasm. No current facility-administered medications for this visit. Objective Blood Pressure 118/60 (BP Site: Left Arm, BP Position: Sitting, BP Cuff Size: Large Adult) Pulse 76 Temperature 36.9 C (98.4 F) (Temporal) Respiration 20 Weight 70.8 kg (156 lb) Body Mass Index 26.78 kg/m Physical Exam Constitutional: General: She is not in acute distress. Appearance: She is not ill-appearing or diaphoretic. HENT: Head: Normocephalic. Cardiovascular: Rate and Rhythm: Normal rate and regular rhythm. Heart sounds: No murmur heard. No gallop. Pulmonary: Effort: No respiratory distress. Breath sounds: No wheezing or rales. Musculoskeletal: Right lower le+ Pitting Edema present. Left lower le+ Edema present. Skin: General: Skin is warm and dry. Comments: Mild sacral irritation without ulcer. Neurological: General: No focal deficit present. Mental Status: She is alert. Comments: On wheelchair, able to stand with assistance. Psychiatric: Mood and Affect: Mood normal. Speech: Speech is delayed. Assessment and Plan 1. Pain in both lower extremities - ICD9: 729.5, ICD10: M79.604, M79.605 (primary diagnosis) Chronic nocturnal leg pain. Multiple medications. Trial of bedtime opioid. Risks and benefits were discussed. Discussed medication dosage, usage, goals of therapy, and side effects. - ACETAMINOPHEN 300 MG-CODEINE 30 MG TABLET 2. Acute on chronic respiratory failure with hypoxemia (HCC) - ICD9: 518.84, ICD10: J96.21 - On Home O2. - COMPLETE BLOOD COUNT 3. Hyperlipidemia, unspecified hyperlipidemia type - ICD9: 272.4, ICD10: E78.5 - Control undetermined, due for labs - Continue current medications - COMPREHENSIVE METABOLIC PANEL - LIPID PANEL BASIC 4. 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) - ICD9: 438.89, 780.39, ICD10: I69.398, R56.9 - Controlled. - LEVETIRACETAM 5. Chronic systolic (congestive) heart failure (HCC) - ICD9: 428.22, 428.0, ICD10: I50.22 - Stable. - Continue current medications 6. Acquired hypothyroidism - ICD9: 244.9, ICD10: E03.9 - continue current dose of Synthroid - LEVOTHYROXINE 50 MCG TABLET - THYROID STIMULATING HORMONE 7. Chronic bronchitis, unspecified chronic bronchitis type (HCC) - ICD9: 491.9, ICD10: J42 Stable. - ALBUTEROL SULFATE 2.5 MG/3 ML (0.083 %) SOLUTION FOR NEBULIZATION - ALBUTEROL SULFATE HFA 90 MCG/ACTUATION AEROSOL INHALER 8. Arteriosclerosis of coronary artery - ICD9: 414.00, ICD10: I25.10 - CLOPIDOGREL 75 MG TABLET Lenin Bhatt MD documented in this encounter [facility] 11-29-2023 Miscellaneous Notes Your last note states to FU in 2 years on 03/31/2022 with US prior. She did the US 04/19/2023. Did you want another US prior to FU in 03/2024? Pended if needed. Can you advise? Jaime Bowie MA documented in this encounter [facility] 09-29-2023 Note HNO ID: [id number] Author: JONATHAN AGUILA MD Service: ? 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 Patient also has a history of COPD with chronic hypoxic respiratory failure on 2 L home oxygen. 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 The second stroke occurred when her Plavix was discontinued for the hysterectomy. She also has occlusive aortoiliac disease as being medically managed. She had an abnormal stress test in 2018 following which he underwent a left heart catheterization which showed only minimal luminal irregularities. She is accompanied with her son today. Patient also has been a former smoker. 09/29/2023: Patient denies any chest pain shortness of breath palpitations lightheadedness syncope orthopnea PND or leg edema. PAST MEDICAL HISTORY Diagnosis Date Abnormal stress test Acquired hypothyroidism 07/20/2016 Anxiety associated with depression 07/20/2016 Aphasia, late effect of cerebrovascular disease 07/20/2016 ASHD (arteriosclerotic heart disease) Bundle branch block, left CAD (coronary artery disease) Cardiomyopathy ([facility]) CHF (congestive heart failure) ([facility]) COVID-19 08/28/2020 Decubitus ulcer, stage 2 ([facility]) 09/15/2015 Essential hypertension 07/20/2016 Gram-negative sepsis, unspecified ([facility]) 09/15/2015 UTI HTN (hypertension) Hyperlipidemia 07/20/2016 Impaired fasting glucose 07/25/2016 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 Aramis Nielson, Neurology Seizure disorder ([facility]) 03/2013 Shortness of breath Stroke (cerebrum) ([facility]) 2015 recurrent Stroke ([facility]) 04/22/2013 aphasia,left facial droop PAST SURGICAL HISTORY Procedure Laterality Date HERNIA REPAIR HX 1984 HYSTERECTOMY HX 12/02/2015 vag.hyst,[place] colpocleisis, sub urethral sling LEFT HEART CATH 12/20/2018 REM LESION NEC,HND,SCAL 2.1-3.0CM Right 09/19/2016 Removal right retroauricular nimesh cyst FAMILY HISTORY Problem Relation Age of Onset Heart Failure Mother Kidney Disease Mother other (Other) Mother TIA Cancer Father COPD Sister Cancer Brother No Known Problems Brother Emphysema Son other (Other) Son scoliosis No Known Problems Son No Known Problems Son Social History Tobacco Use Smoking status: Former Types: Cigarettes Quit date: 03/30/2013 Years since quittin.5 Smokeless tobacco: Never Vaping Use Vaping Use: Never used Substance Use Topics Alcohol use: No Drug use: No Current Outpatient Medications Medication Sig levETIRAcetam (KEPPRA) 500 mg tablet Take 1 tablet by mouth two times a day. aspirin, enteric coated (JOSE LOW DOSE ASPIRIN) 81 mg EC tablet Take 1 tablet by mouth once daily. atorvastatin (LIPITOR) 20 mg tablet Take 1 tablet by mouth once daily. carvedilol (COREG) 12.5 mg tablet Take 1 tablet by mouth twice daily with meals. multivitamin tablet Take 1 tablet by mouth once daily. lisinopril (ZESTRIL) 5 mg tablet Take 1 tablet by mouth once daily. spironolactone (ALDACTONE) 25 mg tablet Take 1 tablet by mouth once daily. sertraline (ZOLOFT) 100 mg tablet Take 1.5 tablets by mouth once daily. clopidogrel (PLAVIX) 75 mg tablet Take 1 tablet by mouth once daily. levothyroxine (SYNTHROID) 50 mcg tablet Take 1 tablet by mouth once daily. on an empty stomach 1/2 hour before meal. albuterol (PROVENTIL) 2.5 mg /3 mL (0.083 %) nebulizer solution Use 3 mL via nebulizer every 6 hours as needed for wheezing/shortness of breath. Use over 5-15minutes. albuterol HFA (VENTOLIN HFA) 90 mcg/actuation inhaler Inhale 2 Puffs as instructed every 4 hours as needed for wheezing/shortness of breath. COMPOUNDED PRESCRIPTION Oxygen Portable tanks (D tanks with carry bag). O2 via nasal cannula at 2 LPM continuous. Dx: Heart failure, unspecified HF chronicity, unspecified heart failure type (HCC) - ICD9: 428.9, ICD10: I50.9 Acute on chronic respiratory failure with hypoxemia (HCC) - ICD9: 518.84, ICD10: J96.21 Pulse oximetry is 94% room air at rest. 85% with ambulation. 97% with O2 via NC at LPM. COMPOUNDED PRESCRIPTION NEBULIZER FOR HOME USE. DX: CHF, bronchospasm. furosemide (LASIX) 20 mg tablet Take 1 tablet by mouth once daily. As needed No current facility-administered medications for this visit. ALLERGIES No Known All (more content not included)... [facility] 06-10-2023 History of Past i llness Narrative Problem Noted Date Diagnosed Date Resolved Date COVID-19 06/10/2023 06/10/2023 12/09/2023 Open wound of hand 06/10/2023 06/10/2023 Closed head injury 04/15/2023 04/15/2023 Leukopenia 04/15/2023 04/15/2023 12/09/2023 Bacteriuria with pyuria 03/14/202311/28 Sacral decubitus ulcer, stage II 03/04/2023 12/09/2023 Bronchospasm 09/12/2018 12/09/2023 Heart failure 08/31/2018 09/27/2020 Iron deficiency anemia 08/31/201803/05 Dizziness and giddiness 08/31/201810/28 Sebaceous cyst 09/19/2016 06/30/2017 LBBB (left bundle branch block) 08/02/2015 3 12/09/2023 Overview: Last Assessment & Plan: - Tele monitoring post-op Localization-related epilepsy 06/06/2015 06/10/2023 12/09/2023 Overview: Last Assessment & Plan: - Continuing home Keppra. 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 Reports right ear discomfort and muffled hearing for the past two weeks, feels clogged. Denies any other concerns today. Taking all medications as prescribed, no side effects. She wears oxygen continuously but forgot to bring itwith her to this appointment today. She has depression but is stable on Zoloft. Denies feeling down, depressed, hopeless. COPD is stable. Uses nebulizer a few times a week, son thinks she probably needs to use it more often. Review of Systems Constitutional: Negative for chills, fatigue, fever and unexpected weight change. Respiratory: Positive for cough and shortness of breath. Negative for chest tightness and wheezing. Cardiovascular: Negative for chest pain, palpitations and leg swelling. Psychiatric/Behavioral: Negative for agitation, behavioral problems, confusion and sleep disturbance. The patient is not nervous/anxious. PAST MEDICAL HISTORY Diagnosis Date Abnormal stress test Acquired hypothyroidism 07/20/2016 Anxiety associated with depression 07/20/2016 Aphasia, late effect of cerebrovascular disease 07/20/2016 ASHD (arteriosclerotic heart disease) Bundle branch block, left CAD (coronary artery disease) Cardiomyopathy ([facility]) CHF (congestive heart failure) ([facility]) COVID-19 08/28/2020 Decubitus ulcer, stage 2 ([facility]) 09/15/2015 Essential hypertension 07/20/2016 Gram-negative sepsis, unspecified ([facility]) 09/15/2015 UTI HTN (hypertension) Hyperlipidemia 07/20/2016 Impaired fasting glucose 07/25/2016 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 Aramis Nielson, Neurology Seizure disorder ([facility]) 03/2013 Shortness of breath Stroke (cerebrum) ([facility]) 2015 recurrent Stroke ([facility]) 04/22/2013 aphasia,left facial droop PAST SURGICAL HISTORY Procedure Laterality Date HERNIA REPAIR HX 1984 HYSTERECTOMY HX 12/02/2015 vag.hyst,[place] colpocleisis, sub urethral sling LEFT HEART CATH 12/20/2018 REM LESION NEC,HND,SCAL 2.1-3.0CM Right 09/19/2016 Removal right retroauricular nimesh cyst ALLERGIES Patient has no known allergies. MEDICATIONS albuterol (PROVENTIL) 2.5 mg /3 mL (0.083 %) nebulizer solution Use 3 mL via nebulizer every 6 hours as needed for wheezing/shortness of breath. Use over 5-15minutes. albuterol HFA (VENTOLIN HFA) 90 mcg/actuation inhaler Inhale 2 Puffs as instructed every 4 hours asneeded for wheezing/shortness of breath. aspirin, enteric coated (JOSE LOW DOSE ASPIRIN) 81 mg EC tablet Take 1 tablet by mouth once daily. atorvastatin (LIPITOR) 20 mg tablet Take 1 tablet by mouth once daily. carvedilol (COREG) 12.5 mg tablet Take 1 tablet by mouth twice daily with meals. clopidogrel (PLAVIX) 75 mg tablet Take 1 tablet by mouth once daily. COMPOUNDED PRESCRIPTION Oxygen Portable tanks (D tanks with carry bag). O2 via nasal cannula at 2 LPM continuous. Dx: Heart failure, unspecified HF chronicity, unspecified heart failure type (HCC) - ICD9: 428.9, ICD10: I50.9 Acute on chronic respiratory failure with hypoxemia (HCC) - ICD9: 518.84, ICD10: J96.21 Pulse oximetry is 94% room air at rest. 85% with ambulation. 97% with O2 via NC at LPM. COMPOUNDED PRESCRIPTION NEBULIZER FOR HOME USE. DX: CHF, bronchospasm. furosemide (LASIX) 20 mg tablet Take 1 tablet by mouth once daily. As needed levETIRAcetam (KEPPRA) 500 mg tablet Take 1 tablet by mouth twice daily. levothyroxine (SYNTHROID) 50 mcg tablet Take 1 tablet by mouth once daily. on an empty stomach 1/2 hour before meal. lisinopril (ZESTRIL) 5 mg tablet Take 1 tablet by mouth once daily. multivitamin tablet Take 1 tablet by mouth once daily. sertraline (ZOLOFT) 100 mg tablet Take 1.5 tablets by mouth once daily. spironolactone (ALDACTONE) 25 mg tablet Take 1 tablet by mouth once daily. FAMILY HISTORY Problem Relation Age of Onset Heart Failure Mother Kidney Disease Mother other (Other) Mother TIA Cancer Father COPD Sister Cancer Brother No Known Problems Brother Emphysema Son other (Other) Son scoliosis No Known Problems Son No Known Problems Son Social History Tobacco Use Smoking status: Former Types: Cigarettes Quit date: 03/30/2013 Years since quittin.2 Smokeless tobacco: Never Vaping Use Vaping Use: Never used Substance Use Topics Alcohol use: No Drug use: No BP 128/60 Pulse 73 Temp 36.2 C (97.1 F) Ht 162.6 cm (5' 4 ) Wt 74 kg (163 lb 1.6 oz) [id number]% BMI 28.00 kg/m Physical Exam Vitals reviewed. Constitutional: General: She is not in acute distress. Appearance: She is not ill-appearing. HENT: Right Ear: There is impacted cerumen. Left Ear: There is impacted cerumen. Ears: Comments: Bilateral ears lavaged with successful removal of all cerumen. Canals are slightly erythematous but otherwise normal. TM's are normal. Cardiovascular: Rate and Rhythm: Normal rate and regular rhythm. Heart sounds: No murmur heard. Pulmonary: Effort: Pulmonary effort is normal. No accessory muscle usage or respiratory distress. Breath sounds: Decreased air movement present. No wheezing, rhonchi or rales. Musculoskeletal: Right lower leg: No edema. Left lower leg: No edema. Neurological: Mental Status: She is alert. Health maintenance reviewed with patient: Shingrix Vaccine(1 of 2) Never done Influenza Vaccine(1) due on 02/27/2024 LDL Cholesterol due on 02/28/2024 Annual PCP Team Chronic Disease Visit due on 03/04/2024 Mammogram Screening due on 03/22/2024 BP Controlled (<130/80) due on 04/15/2024 Diabetes Screening due on 03/12/2026 Lipid Screening due on 02/28/2028 DTaP,Tdap,Td Vaccine(2 - Td or Tdap) due on 10/29/2029 Bone Density Screening Completed Advance Directive Discussion Completed Hepatitis C Screening Completed Pneumococcal Vaccine: 65+ Completed Colorectal Cancer Screening Discontinued Covid-19 Vaccine Discontinued DATA REVIEWED: Most recent labs ASSESSMENT/PLAN: 1. Chronic bronchitis, unspecified chronic bronchitis type (HCC) - ICD9: 491.9, ICD10: J42 (primarydiagnosis) Stable with current treatments 2. Current moderate episode of major depressive disorder, unspecified whether recurrent (HCC) - ICD9: 296.22, ICD10: F32.1 Stable on Zoloft 100 mg daily 3. Acute on chronic respiratory failure with hypoxemia (HCC) - ICD9: 518.84, ICD10: J96.21 Wears oxygen continuously, forgot to bring to appointment today. Pulse ox 91% on RA, patient is notin any distress. 4. Bilateral impacted cerumen - ICD9: 380.4, ICD10: H61.23 - AMBULATORY EAR LAVAGE/IRRIGATION Prescription instructions reviewed with patient as applicable. Potential red flag symptoms discussed with the patient. Reviewed appropriate action plan to take if red flag symptoms occur. Patient agreeable to treatment plan. Moira Brandon APRN.CNP documented in this encounterThe [facility]09[facility] Miscellaneous Notes* Telephone Encounter - Melia Valentin Ma - 05/21/2023 11:39 AM EDT [place] [facility] [phone]. Melia Valentin Ma * Telephone Encounter - Sheila Munoz LPN - 05/19/2023 3:40 PM EDT Patient requesting order for an oxygen tank [place] for the back of a wheelchair [place] [facility] [place] Sheila Munoz LPN documented in this encounterThe [facility]09-20-2023 Miscellaneous Notes* Telephone Encounter - Sheila Munoz LPN - 05/19/2023 12:55 PM EDT Last office visit: 03/04/2023 Appt: 06/10/2023 Sheila Munoz LPN documented in this encounterThe [facility]08-21-[facility]23 History of Present illness Narrative* Ny Lim RDMS - 04/19/2023 4:00 PM EDT Radiology Service Progress Note PATIENT NAME: Dalia Lopez DATE OF SERVICE: April 19, 2023 TIME: 4:22 PM PATIENT IDENTITY VERIFICATION COMPLETED USING TWO (2) IDENTIFIERS: Name and Date of confirmedby patient verbally. FALL SCREENING: Has the patient had 2 falls in the last year or 1 fall with injury or currently using an Ambulatory Assistive Device (Walker, Cane, Wheelchair, Crutches, etc.)? Yes, Patient High Riskfor Falls What interventions were put in place to prevent falls during this visit? Offered Assistance with Transfers/Clothing, Increased Observations by Caregivers, and Escorted to/from Restroom PATIENT GENDER DATA: Female. status: : No status: NO. PATIENT RELEVANT IMPLANT DATA REVIEWED: Not Applicable RADIOLOGY DEPARTMENT: Ultrasound PERIPHERAL IV DATA: Not applicable SIGNED BY: Ny Lim RDMS April 19, 2023 4:22 PM documented in this encounterThe [facility]08-17-2023 History of Present illness Narrative* Wilbur Youssef MD - 04/15/2023 11:53 AM EDT Images from the original note were not included. Heart , Vascular and Thoracic [place] DEPARTMENT OF VASCULAR SURGERY VASCULAR SURGERY INITIAL CONSULT/ H+P SERVICE DATE: 04/15/2023 SERVICE TIME: 11:53 AM PRIMARY CARE PHYSICIAN: Lenin Bhatt MD REFERRING PROVIDER: Pavan Mcclure DPM [address] [facility] [address] Consult requested for an opinion regarding the evaluation and treatment of the above. My final impression and recommendations will be communicated back to the requesting physician by way of the shared medical record or letter via US mail. CHIEF COMPLAINT/HISTORY OF PRESENT ILLNESS: Chief Complaint: Peripheral artery disease History of Present Illness: Dalia Lopez is a 72 year old female Patient presents for evaluation of painful toenails Patient denies rest pain No prior peripheral vascular intervention PAST MEDICAL/SURGICAL/FAMILY/SOCIAL HISTORY PAST MEDICAL HISTORY Diagnosis Date Abnormal stress test Acquired hypothyroidism 07/20/2016 Anxiety associated with depression 07/20/2016 Aphasia, late effect of cerebrovascular disease 07/20/2016 ASHD (arteriosclerotic heart disease) Bundle branch block, left CAD (coronary artery disease) Cardiomyopathy ([facility]) CHF (congestive heart failure) ([facility]) COVID-19 08/28/2020 Decubitus ulcer, stage 2 ([facility]) 09/15/2015 Essential hypertension 07/20/2016 Gram-negative sepsis, unspecified ([facility]) 09/15/2015 UTI HTN (hypertension) Hyperlipidemia 07/20/2016 Impaired fasting glucose 07/25/2016 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 Aramis Nielson, Neurology Seizure disorder ([facility]) 03/2013 Shortness of breath Stroke (cerebrum) ([facility]) 2015 recurrent Stroke ([facility]) 04/22/2013 aphasia,left facial droop PAST SURGICAL HISTORY Procedure Laterality Date HERNIA REPAIR HX 1984 HYSTERECTOMY HX 12/02/2015 vag.hyst,[place] colpocleisis, sub urethral sling LEFT HEART CATH 12/20/2018 REM LESION NEC,HND,SCAL 2.1-3.0CM Right 09/19/2016 Removal right retroauricular nimesh cyst FAMILY HISTORY Problem Relation Age of Onset Heart Failure Mother Kidney Disease Mother other (Other) Mother TIA Cancer Father COPD Sister Cancer Brother No Known Problems Brother Emphysema Son other (Other) Son scoliosis No Known Problems Son No Known Problems Son SOCIAL HISTORY Social History Tobacco Use Smoking status: Former Types: Cigarettes Quit date: 03/30/2013 Years since quittin.0 Smokeless tobacco: Never Vaping Use Vaping Use: Never used Substance Use Topics Alcohol use: No Drug use: No MEDICATIONS/ALLERGIES Current Outpatient Medications Medication Sig Dispense Refill levETIRAcetam (KEPPRA) 500 mg tablet Take 1 tablet by mouth twice daily. 180 tablet 1 aspirin, enteric coated (JOSE LOW DOSE ASPIRIN) 81 mg EC tablet Take 1 tablet by mouth once daily.90 tablet 0 atorvastatin (LIPITOR) 20 mg tablet Take 1 tablet by mouth once daily. 90 tablet 0 carvedilol (COREG) 12.5 mg tablet Take 1 tablet by mouth twice daily with meals. 180 tablet 0 multivitamin tablet Take 1 tablet by mouth once daily. 90 tablet 0 lisinopril (ZESTRIL) 5 mg tablet Take 1 tablet by mouth once daily. 90 tablet 0 spironolactone (ALDACTONE) 25 mg tablet Take 1 tablet by mouth once daily. 90 tablet 0 sertraline (ZOLOFT) 100 mg tablet take 1 and 1/2 tablet by mouth once daily 135 tablet 3 clopidogrel (PLAVIX) 75 mg tablet Take 1 tablet by mouth once daily. 90 tablet 1 levothyroxine (SYNTHROID) 50 mcg tablet Take 1 tablet by mouth once daily. on an empty stomach 1/2 hour before meal. 90 tablet 1 furosemide (LASIX) 20 mg tablet Take 1 tablet by mouth once daily. As needed 90 tablet 1 albuterol (PROVENTIL) 2.5 mg /3 mL (0.083 %) nebulizer solution Use 3 mL via nebulizer every 6 hours as needed for wheezing/shortness of breath. Use over 5- 15minutes. 90 mL 1 albuterol HFA (VENTOLIN HFA) 90 mcg/actuation inhaler Inhale 2 Puffs as instructed every 4 hours asneeded for wheezing/shortness of breath. 1 Each 1 COMPOUNDED PRESCRIPTION Oxygen Portable tanks (D tanks with carry bag). O2 via nasal cannula at 2 LPM continuous. Dx: Heart failure, unspecified HF chronicity, unspecified heart failure type (HCC) - ICD9: 428.9, ICD10: I50.9 Acute on chronic respiratory failure with hypoxemia (HCC) - ICD9: 518.84, ICD10: J96.21 Pulse oximetry is 94% room air at rest. 85% with ambulation. 97% with O2 via NC at LPM. 1 Each 0 COMPOUNDED PRESCRIPTION NEBULIZER FOR HOME USE. DX: CHF, bronchospasm. 1 Device 0 No current facility-administered medications for this visit. ALLERGIES No Known Allergies REVIEW OF SYSTEMS Constitutional: No weight loss, malaise or fevers., Negative for Malaise, significant weight loss, and fever HEENT: Negative for frequent or significant headaches, No changes in hearing or vision, no nose bleeds or other nasal problems, Negative for frequent or significant headaches, significant change in vision, significant vision problems, nasal discharge or nose bleeds, sore throat, and difficulty swallowing Respiratory: Negative for cough, wheezing, shortness of breath, and chest pain Cardiovascular: Negative for chest pain, palpitations, orthopnea, and paroxysmal nocturnal dyspnea Gatrointestinal: Negative for abdominal discomfort, blood in stools or black stools or change in bowel habits Genitourinary: No history of dysuria, frequency, or incontinence Musculoskeletal: Negative for joint pain or swelling, back pain or muscle pain Endocrine: Negative for cold or heat intolerance, polyuria, polydipsia and goiter Hematology/Lymphatic: Negative for prolonged bleeding, bruising easily or swollen nodes Neurologic: No history or headaches, syncope, paralysis, seizures or tremors Integumentary: Negative for lesions, rash, and itching. PHYSICAL EXAM General: Alert and oriented, No acute distress, Healthy appearance, good historian. Integumentary: Normal color, no rash, no lesions. HEENT: EOM, pupils equal and round, no lesions or deformities. Cardiovascular: Normal S1 & S2, no murmurs Pulse regular. Lungs: Normal breath sounds, no wheezes or crackles., No chest deformities or chest wall tenderness. Abdomen: Soft, non-tender, no rigidity., No masses. Extremities: No deformity, joint swelling or clubbing. Neurological: Normal cognition and motor skills. Normal affect. No weakness or sensory deficit. Pulse exam: Right- Weak femoral, no popliteal and pedal Left- Weak femoral, no popliteal and pedal Diagnostic tests reviewed for today's visit: PVR ASSESSMENT Bilateral lower extremities severe peripheral artery disease, minimally symptomatic Toenail dystrophy Stroke CAD CHF PLAN/RECOMMENDATIONS Do not recommend peripheral vascular intervention given asymptomatic state and multiple comorbidities Recommend no surgical procedures on foot Follow up if develops rest pain or foot wound Instructed in good foot care to avoid injury Discussed the options for management with the patient. All questions answered. Patient reflected understanding and agrees to the plan as outlined. documented in this encounterThe [facility]08-16-2023 Miscellaneous Notes* Telephone Encounter - Lenin Bhatt MD - 04/14/2023 1:46 PM EDT Please fax letter. documented in this encounterThe [facility]07-25-2023 Miscellaneous Notes* Letter - Coordinator, Mammography - 03/23/2023 8:46 AM EDT March 24, 2023 PID: [id number] Dalia Lopez [address] [place] [address] Dear Ms. Lopez, We are pleased to inform you that the results of your recent breast imaging exam on 03/22/2023 are normal. Early detection of cancer is very important. We also understand recommendations regarding breast cancer screening are controversial. Please discuss with your primary care provider which strategy is best for you and whether a mammogram is right for you. Your imaging studies and report will be kept on file at [facility] as part of your permanent medical record and are available for your continuing care. Thank you for allowing us to help in meeting your health care needs. Sincerely, Dr. De Anda Interpreting Radiologist [facility] (Normal over 40) documented in this encounterThe [facility]07-24-2023 History of Present illness Narrative* Felicia Roper RT(R) - 03/22/2023 2:10 PM EDT Radiology Service Progress Note PATIENT NAME: Dalia Lopez DATE OF SERVICE: March 22, 2023 TIME: 1:59 PM PATIENT IDENTITY VERIFICATION COMPLETED USING TWO (2) IDENTIFIERS: Name and Date of confirmedby patient verbally. FALL SCREENING: Has the patient had 2 falls in the last year or 1 fall with injury or currently using an Ambulatory Assistive Device (Walker, Cane, Wheelchair, Crutches, etc.)? No PATIENT GENDER DATA: Female. status: : No status: NO. PATIENT RELEVANT IMPLANT DATA REVIEWED: Not Applicable RADIOLOGY DEPARTMENT: Mammography PERIPHERAL IV DATA: Not applicable SIGNED BY: RT Elisa(R) March 22, 2023 1:59 PM documented in this encounterThe [facility]07-14-2023 History of Present illness Narrative* Pavan Mcclure - 03/12/2023 10:57 AM EDT Consultation requested by Dr. Bhatt for an opinion regarding painful toenail. My final recommendations will be communicated back to the requesting physician by way of shared Medical record or letter to requesting physician via US mail. Initial Podiatric Office Visit: Chief Complaint: This 72 year old female who presents with chief complaint:dystrophic toenails of b/l feet HPI Patient presents to clinic for evaluation of b/l feet. Patient presents to clinic with son. Their primary complaint is thick dystrophic toenails that cause her pain. Patient son believes they need nahum removed. Patient also complains of swelling of the toes. Patient is apparently borderline diabetic She does have history of smoking. She quit in 2018. She has history of pad. She is on plavix. PAIN EVALUATION No data found in the last 1 encounters. Hemoglobin A1C (%) Date Value 02/27/2023 6.5 12/15/2021 6.0 04/03/2020 6.1 11/14/2018 5.9 11/02/2017 6.0 12/30/2016 5.9 PCP: Lenin Bhatt MD PAST MEDICAL HISTORY Diagnosis Date Abnormal stress test Acquired hypothyroidism 07/20/2016 Anxiety associated with depression 07/20/2016 Aphasia, late effect of cerebrovascular disease 07/20/2016 ASHD (arteriosclerotic heart disease) Bundle branch block, left CAD (coronary artery disease) Cardiomyopathy ([facility]) CHF (congestive heart failure) ([facility]) COVID-19 08/28/2020 Decubitus ulcer, stage 2 ([facility]) 09/15/2015 Essential hypertension 07/20/2016 Gram-negative sepsis, unspecified ([facility]) 09/15/2015 UTI HTN (hypertension) Hyperlipidemia 07/20/2016 Impaired fasting glucose 07/25/2016 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 Aramis Nielson, Neurology Seizure disorder ([facility]) 03/2013 Shortness of breath Stroke (cerebrum) ([facility]) 2015 recurrent Stroke (HCC) 04/22/2013 aphasia,left facial droop Current Outpatient Medications Medication Sig levETIRAcetam (KEPPRA) 500 mg tablet Take 1 tablet by mouth twice daily. aspirin, enteric coated (JOSE LOW DOSE ASPIRIN) 81 mg EC tablet Take 1 tablet by mouth once daily. atorvastatin (LIPITOR) 20 mg tablet Take 1 tablet by mouth once daily. carvedilol (COREG) 12.5 mg tablet Take 1 tablet by mouth twice daily with meals. multivitamin tablet Take 1 tablet by mouth once daily. lisinopril (ZESTRIL) 5 mg tablet Take 1 tablet by mouth once daily. spironolactone (ALDACTONE) 25 mg tablet Take 1 tablet by mouth once daily. sertraline (ZOLOFT) 100 mg tablet take 1 and 1/2 tablet by mouth once daily clopidogrel (PLAVIX) 75 mg tablet Take 1 tablet by mouth once daily. levothyroxine (SYNTHROID) 50 mcg tablet Take 1 tablet by mouth once daily. on an empty stomach 1/2 hour before meal. furosemide (LASIX) 20 mg tablet Take 1 tablet by mouth once daily. As needed albuterol (PROVENTIL) 2.5 mg /3 mL (0.083 %) nebulizer solution Use 3 mL via nebulizer every 6 hours as needed for wheezing/shortness of breath. Use over 5-15minutes. albuterol HFA (VENTOLIN HFA) 90 mcg/actuation inhaler Inhale 2 Puffs as instructed every 4 hours asneeded for wheezing/shortness of breath. COMPOUNDED PRESCRIPTION Oxygen Portable tanks (D tanks with carry bag). O2 via nasal cannula at 2 LPM continuous. Dx: Heart failure, unspecified HF chronicity, unspecified heart failure type (HCC) - ICD9: 428.9, ICD10: I50.9 Acute on chronic respiratory failure with hypoxemia (HCC) - ICD9: 518.84, ICD10: J96.21 Pulse oximetry is 94% room air at rest. 85% with ambulation. 97% with O2 via NC at LPM. COMPOUNDED PRESCRIPTION NEBULIZER FOR HOME USE. DX: CHF, bronchospasm. No current facility-administered medications for this visit. ALLERGIES No Known Allergies PAST SURGICAL HISTORY Procedure Laterality Date HERNIA REPAIR HX 1984 HYSTERECTOMY HX 12/02/2015 vag.hyst,[place] colpocleisis, sub urethral sling LEFT HEART CATH 12/20/2018 REM LESION NEC,HND,SCAL 2.1-3.0CM Right 09/19/2016 Removal right retroauricular nimesh cyst FAMILY HISTORY Problem Relation Age of Onset Heart Failure Mother Kidney Disease Mother other (Other) Mother TIA Cancer Father COPD Sister Cancer Brother No Known Problems Brother Emphysema Son other (Other) Son scoliosis No Known Problems Son No Known Problems Son Social History Tobacco Use Smoking status: Former Types: Cigarettes Quit date: 03/30/2013 Years since quittin.9 Smokeless tobacco: Never Vaping Use Vaping Use: Never used Substance Use Topics Alcohol use: No Drug use: No REVIEW OF SYSTEMS GENERAL: Negative for Malaise, significant weight loss, fever RESPIRATORY: Negative for cough, wheezing and shortness of breath CARDIOVASCULAR: Negative for chest pain, leg swelling and palpitations GI: Negative for abdominal discomfort, blood in stools or black stools and change in bowel habits : Negative for dysuria, frequency and incontinence MUSCULOSKELETAL: Negative for joint pain or swelling, back pain, and muscle pain. SKIN: Negative for lesions, rash, and itching. HEMATOLOGY/LYMPHOLOGY Negative for prolonged bleeding, bruising easily, and swollen nodes. ENDOCRINE: Negative for cold or heat intolerance, polyuria, polydipsia and goiter. NEURO: negative Physical Exam: Constitutional: Pt is a well developed 72 year old female who is alert, oriented and cooperative Eyes: Following during examination. No redness or drainage. Respiratory: RR normal and nonlabored. Even breathing. No evidence of distress or shortness of breath. Psychology: Patient is engaged during conversation. Normal affect and mood. Does not appear depressed or anxious during encounter. Vascular: Dorsalis pedis and posterior tibial pulses nonpalpable as b/l Capillary Fill time >5 seconds to digits 1-5 b/l Skin temperature warm to cool proximal to distal b/l Hair growth absent to digits Neurological: decreased light touch/epicritic sensation Vibratory sensation decreased b/l decreased protective sensation + significant neurological deficits Dermatological: Nails 1-5 b/l appear thick, discolored, dystrophic. Webspaces clean and dry 1-4 b/l. Skin appears dry, ruborous. No open lesions present. No callosities present. Musculoskeletal/Orthopaedic: Patient has pain to palpation of toenails Radiographs: n/a ASSESSMENT: (B35.1) Dermatophytosis of nail (M79.674, M79.675) Pain in toes of both feet (I73.9) PVD (peripheral vascular disease) (HCC) PLAN: A review of the patient's PMH and Podiatric physical exam was completed. We discussed the possible etiologies of discolored, dystrophic, and thickened nails including fungus, yeast, mold as well as in some instances, prior trauma, or mechanical causes such as repetitive microtrauma in shoe gear. Wediscussed topical medication for discolored toenails which has very low success but no major side effects. We discussed oral medication. Patient will need hepatic testing prior to use. Patient informed of risks associated with Lamisil. We discussed removal of toenails.\ On exam, she has nonpalpable pulses. I do not think she is candidate at this time for removal of toenails even though this is what she wants. I will have her obtain pvr prior to any attempted removal Toenails 1-5 b/l debrided in length and thickness without incidence. q8 Pavan Mcclure DPM Podiatry [address] [facility] [address] Dept: [phone] Dept * Jesika Roblero LPN - 03/12/2023 10:35 AM EDT AMB ROOMING INTAKE FLOWSHEET DATA Patient presents with: Left Foot - New, Pain, Swelling, nail deformity Right Foot - New, Pain, Swelling, nail deformity Patient present to office with son. Jesika Roblero LPN documented in this encounterThe [facility] History of Present illness Narrative* Supriya Mccoy, RT(R) - 03/12/2023 10:30 AM EDT Radiology Service Progress Note PATIENT NAME: Dalia Lopez DATE OF SERVICE: March 12, 2023 TIME: 10:16 AM PATIENT IDENTITY VERIFICATION COMPLETED USING TWO (2) IDENTIFIERS: Name and Date of confirmedby patient verbally. FALL SCREENING: Has the patient had 2 falls in the last year or 1 fall with injury or currently using an Ambulatory Assistive Device (Walker, Cane, Wheelchair, Crutches, etc.)? No PATIENT GENDER DATA: Female. status: : No status: NO. PATIENT RELEVANT IMPLANT DATA REVIEWED: Yes RADIOLOGY DEPARTMENT: General X-ray: Exam(s) Completed: Chest X-Ray PERIPHERAL IV DATA: Not applicable SIGNED BY: RT Lizeth(R) March 12, 2023 10:16 AM documented in this encounterThe [facility]07-06-[facility]23 History of Present illness Narrative* Lenin Bhatt MD - 03/04/2023 5:47 PM EDT This note was created using Octopusappriter. Subjective Dalia Lopez is a 72 year old female here with her son She recently complained of toe pain of theleft foot with swelling. This was better now, but symptoms have been intermittent. Son was concerned about patient's toes which get red, and swollen, as well as the fungal toenails. Chronic conditions appeared to be stable. She met criteria for diabetes mellitus at this time by HgbA1C, but her fasting glucose was normal. Weight was stable. No symptoms of diabetes mellitus were noted. She was still on oxygen at home as needed, but was without portable O2 here today. Review of Systems Constitutional: Negative for fatigue, fever and unexpected weight change. HENT: Negative for sore throat and trouble swallowing. Eyes: Negative for visual disturbance. Respiratory: Negative for cough, shortness of breath and wheezing. Cardiovascular: Negative for chest pain, palpitations and leg swelling. Gastrointestinal: Negative for abdominal pain, constipation, diarrhea, nausea and vomiting. Genitourinary: Negative for difficulty urinating, dysuria and hematuria. Musculoskeletal: Negative for arthralgias. Skin: Positive for wound. Negative for rash. Neurological: Negative for dizziness, syncope and headaches. 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 Essential Hypertension Seizure As Late Effect of Cerebrovascular Accident (Cva) (Hcc) Pvd (Peripheral Vascular Disease) (Hcc) Acquired Hypothyroidism Hyperlipidemia Anxiety Associated With Depression Impaired Fasting Glucose Mass of Left Kidney Iron Deficiency Anemia Urinary Incontinence Bronchospasm Acute On Chronic Respiratory Failure With Hypoxemia (Hcc) Ischemic Cardiomyopathy Chronic Systolic (Congestive) Heart Failure (Hcc) Current Moderate Episode of Major Depressive Disorder (Hcc) Sacral Decubitus Ulcer, Stage II (Hcc) Kidney Insufficiency Current Outpatient Medications Medication Sig levETIRAcetam (KEPPRA) 500 mg tablet Take 1 tablet by mouth twice daily. aspirin, enteric coated (JOSE LOW DOSE ASPIRIN) 81 mg EC tablet Take 1 tablet by mouth once daily. atorvastatin (LIPITOR) 20 mg tablet Take 1 tablet by mouth once daily. carvedilol (COREG) 12.5 mg tablet Take 1 tablet by mouth twice daily with meals. multivitamin tablet Take 1 tablet by mouth once daily. lisinopril (ZESTRIL) 5 mg tablet Take 1 tablet by mouth once daily. spironolactone (ALDACTONE) 25 mg tablet Take 1 tablet by mouth once daily. sertraline (ZOLOFT) 100 mg tablet take 1 and 1/2 tablet by mouth once daily clopidogrel (PLAVIX) 75 mg tablet Take 1 tablet by mouth once daily. levothyroxine (SYNTHROID) 50 mcg tablet Take 1 tablet by mouth once daily. on an empty stomach 1/2 hour before meal. furosemide (LASIX) 20 mg tablet Take 1 tablet by mouth once daily. As needed albuterol (PROVENTIL) 2.5 mg /3 mL (0.083 %) nebulizer solution Use 3 mL via nebulizer every 6 hours as needed for wheezing/shortness of breath. Use over 5-15minutes. albuterol HFA (VENTOLIN HFA) 90 mcg/actuation inhaler Inhale 2 Puffs as instructed every 4 hours asneeded for wheezing/shortness of breath. COMPOUNDED PRESCRIPTION Oxygen Portable tanks (D tanks with carry bag). O2 via nasal cannula at 2 LPM continuous. Dx: Heart failure, unspecified HF chronicity, unspecified heart failure type (HCC) - ICD9: 428.9, ICD10: I50.9 Acute on chronic respiratory failure with hypoxemia (HCC) - ICD9: 518.84, ICD10: J96.21 Pulse oximetry is 94% room air at rest. 85% with ambulation. 97% with O2 via NC at LPM. COMPOUNDED PRESCRIPTION NEBULIZER FOR HOME USE. DX: CHF, bronchospasm. No current facility-administered medications for this visit. Objective BP 124/74 (BP Site: Left Arm, BP Position: Sitting, BP Cuff Size: Large Adult) Pulse 84 Resp 20 Ht 160 cm (5' 3 ) Wt 72.6 kg (160 lb) SpO2 96% BMI 28.34 kg/m Physical Exam Constitutional: General: She is not in acute distress. Appearance: She is not ill-appearing or diaphoretic. Comments: Wheelchair dependent. Stood up with assistance. HENT: Head: Atraumatic. Eyes: Extraocular Movements: Extraocular movements intact. Conjunctiva/sclera: Conjunctivae normal. Cardiovascular: Rate and Rhythm: Normal rate and regular rhythm. Heart sounds: No murmur heard. No gallop. Pulmonary: Effort: Pulmonary effort is normal. Breath sounds: Normal breath sounds. Abdominal: General: There is no distension. Palpations: Abdomen is soft. Tenderness: There is no abdominal tenderness. Musculoskeletal: Cervical back: No tenderness. Right lower leg: No edema. Left lower leg: No edema. Skin: Comments: 2 cm round sacral ulcer with tunneling, no cellulitis, scant drainage. Patient noted thishas been noted for a few months. Neurological: General: No focal deficit present. Mental Status: She is alert. Mental status is at baseline. Gait: Gait abnormal. Psychiatric: Attention and Perception: Attention normal. Mood and Affect: Affect is flat. Speech: Speech is slurred. Behavior: Behavior is cooperative. Feet:Shoes and socks removed, Are you having foot pain yes, No ulcers, calluses, abnormal pulses Decreased bilaterally, and nails notable for Crumbly, Deformed, Hypertrophic, or Yellowish. Hammertoes. Big toes with periungual erythema. Toes currently non tender. Component Latest Ref Rng & Units 02/27/2023 Protein, Total 6.3 - 8.0 g/dL 7.6 Albumin 3.9 - 4.9 g/dL 4.2 Calcium 8.5 - 10.2 mg/dL 9.7 Bilirubin, Total 0.2 - 1.3 mg/dL 0.3 Alkaline Phosphatase 34 - 123 U/L 69 AST 13 - 35 U/L 19 ALT 7 - 38 U/L 13 Glucose 74 - 99 mg/dL 86 BUN 7 - 21 mg/dL 30 (H) Creatinine 0.58 - 0.96 mg/dL 1.01 (H) Sodium 136 - 144 mmol/L 140 Potassium 3.7 - 5.1 mmol/L 5.2 (H) Chloride 97 - 105 mmol/L 106 (H) CO2 22 - 30 mmol/L 17 (L) Anion Gap 9 - 18 mmol/L 17 eGFR >=60 mL/min/1.73m 59 (L) WBC 3.70 - 11.00 k/uL 8.99 RBC 3.90 - 5.20 m/uL 4.17 Hemoglobin 11.5 - 15.5 g/dL 12.4 Hematocrit 36.0 - 46.0 % 40.3 MCV 80.0 - 100.0 fL 96.6 MCH 26.0 - 34.0 pg 29.7 MCHC 30.5 - 36.0 g/dL 30.8 RDW-CV 11.5 - 15.0 % 13.5 Platelet Count 150 - 400 k/uL 319 MPV 9.0 - 12.7 fL 9.9 Absolute nRBC <0.01 k/uL <0.01 Cholesterol, Total <200 mg/dL 121 Triglyceride <150 mg/dL 62 HDL Cholesterol >39 mg/dL 48 Non HDL Cholesterol <130 mg/dL 73 Fasting Time hrs 10 VLDL Cholesterol <30 mg/dL 12 TC:HDL Ratio <5.10 2.52 LDL Cholesterol <100 mg/dL 61 LDL:HDL Ratio <2.54 1.27 Hemoglobin A1C 4.3 - 5.6 % 6.5 (H) Estimated Average Glucose mg/dL 140 Levetiracetam 12.0 - 46.0 ug/mL 26.5 TSH 0.270 - 4.200 mIU/L 3.720 Assessment and Plan 1. Medicare annual wellness visit, subsequent - ICD9: V70.0, ICD10: Z00.00 (primary diagnosis) See wellness note. - ADVANCE CARE PLAN DISCUSSION 2. Dermatophytosis of nail - ICD9: 110.1, ICD10: B35.1 - CONSULT TO PODIATRY 3. Pain in toes of both feet - ICD9: 729.5, ICD10: M79.674, M79.675 - CONSULT TO PODIATRY 4. 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 5. Chronic systolic (congestive) heart failure (HCC) - ICD9: 428.22, 428.0, ICD10: I50.22 Compensated. - NT PRO BNP - XR CHEST 2V FRONTAL/LAT 6. Ischemic cardiomyopathy - ICD9: 414.8, ICD10: I25.5 Stable. 7. Essential hypertension - ICD9: 401.9, ICD10: I10 - Controlled - Continue current medications 8. Kidney insufficiency - ICD9: 593.9, ICD10: N28.9 Monitor. - BASIC METABOLIC PNL - URINALYSIS, WITH MICROSCOPIC 9. Sacral decubitus ulcer, stage II (HCC) - ICD9: 707.03, 707.22, ICD10: L89.152 [facility]. - CONSULT TO NON-CCF FACILITY 10. Impaired fasting glucose - ICD9: 790.21, ICD10: R73.01 Continue to monitor Lenin Bhatt MD * Lenin Bhatt MD - 03/04/2023 4:40 PM EDT Medicare Yearly Visit Medical B eligibilty date 2012 Date of last exam 01/21/2021 PAST MEDICAL HISTORY Diagnosis Date Abnormal stress test Acquired hypothyroidism 07/20/2016 Anxiety associated with depression 07/20/2016 Aphasia, late effect of cerebrovascular disease 07/20/2016 ASHD (arteriosclerotic heart disease) Bundle branch block, left CAD (coronary artery disease) Cardiomyopathy (HCC) CHF (congestive heart failure) ([facility]) COVID-19 08/28/2020 Decubitus ulcer, stage 2 (HCC) 09/15/2015 Essential hypertension 07/20/2016 Gram-negative sepsis, unspecified ([facility]) 09/15/2015 UTI HTN (hypertension) Hyperlipidemia 07/20/2016 Impaired fasting glucose 07/25/2016 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 Aramis Nielson, Neurology Seizure disorder ([facility]) 03/2013 Shortness of breath Stroke (cerebrum) ([facility]) 2016 recurrent Stroke ([facility]) 04/22/2013 aphasia,left facial droop PAST SURGICAL HISTORY Procedure Laterality Date HERNIA REPAIR HX 1984 HYSTERECTOMY HX 12/02/2015 vag.hyst,[place] colpocleisis, sub urethral sling LEFT HEART CATH 12/20/2018 REM LESION NEC,HND,SCAL 2.1-3.0CM Right 09/19/2016 Removal right retroauricular nimesh cyst ALLERGIES: Patient has no known allergies. Medications reviewed: Yes FAMILY HISTORY Problem Relation Age of Onset Heart Failure Mother Kidney Disease Mother other (Other) Mother TIA Cancer Father COPD Sister Cancer Brother No Known Problems Brother Emphysema Son other (Other) Son scoliosis No Known Problems Son No Known Problems Son SOCIAL HISTORY: Social History Tobacco Use Smoking status: Former Types: Cigarettes Quit date: 03/30/2013 Years since quittin.9 Smokeless tobacco: Never Vaping Use Vaping Use: Never used Substance Use Topics Alcohol use: No Drug use: No Dalia denies regular aerobic exercise. She watches her diet for sodium, low fat and low cholesterol some of the time, meals on wheels. List of current specialists seen: Dr. Jonathan Aguila, cardiology. Dr. Aramis hCeng,neurology. End of Live Planning discussed including patients advanced directive wishes: Yes I am willing to follow Dalia's advanced directives. Copy filed. PHQ-2 / Depression screen She in the past two weeks denies having felt down, depressed, hopeless, or with little interest or pleasure in doing things. Functional Ability/Safety Screen 1. Was the patient's timed Up and Go test unsteady or longer than 30 seconds? Yes 2. Does the patient need help with the phone, transportation, shopping,preparing meals, housework, laundry, medications or managing money? Yes 3. Does your home have rugs in the hallway, lack of grab bars in the bathroom, lack of handrails onthe stairs or have poor lighting? No Hearing Evaluation: within normal limits PHYSICAL EXAM BP 124/74 (BP Site: Left Arm, BP Position: Sitting, BP Cuff Size: Large Adult) Pulse 84 Resp 20 Ht 160 cm (5' 3 ) Wt 72.6 kg (160 lb) BMI 28.34 kg/m Alert and oriented X 3: YES Body mass index is 28.34 kg/m . Visual acuity: OD: 20/50 OS: 20/ 50 OU: 20/50 The Mini Cog(c): Word recall=1/3 + Clock drawing=2/2=3/5. (<3 is positive). ASSESSMENT/PLAN: 72 year old female The following prevention plan was discussed during the office visit and provided to the patient: - Discussed need for and benefit of weight loss. BMI 28.34 kg/(m^2) - Fall avoidance - Colorectal cancer screening recommended - screening declined - Depression screening Lenin Bhatt MD documented in this encounterThe [facility]06-29-[facility] Miscellaneous Notes* Telephone Encounter - Sheila Munoz LPN - 02/25/2023 12:10 PM EDT Patient has been identified by name and date of : Yes, Patient phones for refill(s): Requested Prescriptions Pending Prescriptions Disp Refills levETIRAcetam (KEPPRA) 500 mg tablet 180 tablet 1 Sig: Take 1 tablet by mouth twice daily. Date of last office visit in primary care: 07/16/2022 Medicare Wellness: 03/04/2023 Last 2 Encounter Wt Readings: Date: Wt: 07/16/2022 71.7 kg (158 lb) 06/10/2022 70.8 kg (156 lb) Previous labs/tests for medication: Not applicable Please advise. Thank you. Sheila Munoz LPN documented in this encounterThe [facility]02-28-2023 Miscellaneous Notes* Telephone Encounter - M Leroy Guadarrama RN - 10/27/2022 11:38 AM EST Patient has been identified by name and date of : Yes, Provider Dr. Bhatt Date 10-27-22 Time 11:39 am Son phones for refill(s): Requested Prescriptions Pending Prescriptions Disp Refills sertraline (ZOLOFT) 100 mg tablet 45 tablet 5 Sig: Take 1.5 tablets by mouth once daily. Date of last office visit with pcp: 07-16-22. Next appt: 11-25-22 Son reports patient is out of medication- does not have today's dose. Last 2 Encounter Wt Readings: Date: Wt: 07/16/2022 71.7 kg (158 lb) 06/10/2022 70.8 kg (156 lb) Previous labs/tests for medication: Blood Pressure: BUN (mg/dL) Date Value 12/15/2021 18 01/21/2021 15 Sodium (mmol/L) Date Value 12/15/2021 141 01/21/2021 144 Last 1 Encounter BP Readings: Date: BP: 07/16/2022 136/68 Liver Function: ALT (U/L) Date Value 12/15/2021 11 01/21/2021 10 AST (U/L) Date Value 12/15/2021 19 01/21/2021 16 Please advise. Thank you. Sherrie Guadarrama RN documented in this encounterThe [facility]01-30-2023 History of Present illness Narrative* Aramis Cheng MD - 09/28/2022 1:47 PM EST NEUROLOGY Outpatient Follow-Up [facility] [address], [address] [place] [id number] (office) / [phone] (fax) Patient Name: Dalia Lopez : 1950 MR #: [id number] Date of Neurology Follow-up: 09/28/22 Name of Neurologist: Aramis Cheng MD, ABPN Other Physicians: Lenin Bhatt MD (Primary Care Physician) Chief Complaint: Follow-up for Seizures (Pt here for follow up. Pt states that she has been ok. PT has not had a seizure since 2012. //Pts son wonders if she might have a UTI, asks if a rx can be sent for abx. ) Interval History: Patient evaluated today for her known seizure disorder, with nidus being her prior Stroke. She reports no further seizures since her last visit, with last occurring in 2013 perhaps.She continues on Keppra 500 mg po BID to good effect, and prefers to continue treating with an AED for her peace of mind. Prior EEG was unrevealing, but she is strongly in favor of maintaining on Keppra due to fear of recurrent seizures. She takes ASA/Plavix for secondary stroke prevention following a Left MCA Stroke. Current AED regimen is Keppra 500 mg BID Current AED Side Effects: None endorsed Current Medications: Current Outpatient Medications on File Prior to Visit Medication Sig Dispense Refill aspirin 81 MG EC tablet Take 1 (one) tablet (81 mg total) by mouth daily . atorvastatin (LIPITOR) 20 MG tablet Take 1 (one) tablet (20 mg total) by mouth every evening . 1 carvedilol (COREG) 6.25 MG tablet Take 2 (two) tablets (12.5 mg total) by mouth . citalopram (CELEXA) 20 MG tablet Take 1 (one) tablet (20 mg total) by mouth daily . 1 clopidogrel (PLAVIX) 75 mg tablet Take 1 (one) tablet (75 mg total) by mouth daily . 1 furosemide (LASIX) 20 MG tablet Take 1 tablet (20 mg total) by mouth daily. 7 tablet 0 ibuprofen (ADVIL,MOTRIN) 600 MG tablet Take 1 (one) tablet (600 mg total) by mouth . levETIRAcetam (KEPPRA) 500 MG tablet Take 1 (one) tablet (500 mg total) by mouth 2 (two) times a day . 180 tablet 3 levothyroxine (SYNTHROID, LEVOTHROID) 50 MCG tablet Take 1 (one) tablet (50 mcg total) by mouth every morning . 1 lisinopril (PRINIVIL,ZESTRIL) 5 MG tablet Take 1 (one) tablet (5 mg total) by mouth daily . 0 multivitamin (THERAGRAN) per tablet Take 1 (one) tablet by mouth daily . sertraline (ZOLOFT) 50 MG tablet Take 2 (two) tablets (100 mg total) by mouth . spironolactone (ALDACTONE) 25 MG tablet No current facility-administered medications on file prior to visit. Physical Examination: Patient is well-developed in appearance. No new findings with respect to Neurological functioning Additional Diagnostic data reviewed: Several unique medical records are reviewed today in context of Patient's encounter. Assessment and Plan: 1. Localization-related epilepsy (HCC) 2. History of stroke 3. Primary hypertension 4. Pure hypercholesterolemia --Continue Keppra 500 mg bid for seizure prevention --Pt prefers to remain on medication over concern for recurrent seizures --Continue ASA/Plavix for secondary stroke prevention --EEG results reviewed today, unrevealing --Continue close follow with Cardiology given LBBB/CHF/PVD -- Follow-up in 1 year Aramis Cheng MD, ABPN, FAСВЕТЛАНА Adult Neurologist & Epileptologist [facility] A Level 4, [facility]Certified [facility] documented in this [id number] Telephone encounter Note* Telephone Encounter - Kristine Downing RN - 08/04/2022 10:59 AM EST Patients son/POA called to request that we send a script for the patients Keppra 500 mg twice a dayto the [facility] as she is no longer using the [facility]. He is also requesting that we let him know the date and time of patients upcoming appointment with Dr. Cheng. Called patients son and let him know that we will have a script sent to the [facility] and that patients appointment is on 08/14 at 11:00 AM and encouraged him to call with any questions or concerns. Dr. Cheng- See attached script for Keppra 500 mg twice a day. [id number] Miscellaneous Notes* Telephone Encounter - Krsitine Downing RN - 08/04/2022 10:59 AM EST Patients son/POA called to request that we send a script for the patients Keppra 500 mg twice a dayto the [facility] as she is no longer using the [facility]. He is also requesting that we let him know the date and time of patients upcoming appointment with Dr. Cheng. Called patients son and let him know that we will have a script sent to the [facility] and that patients appointment is on 08/14 at 11:00 AM and encouraged him to call with any questions or concerns. Dr. Cheng- See attached script for Keppra 500 mg twice a day. documented in this [id number] Miscellaneous Notes* Telephone Encounter - Yohan Bustillo Ma - 08/03/2022 4:14 PM EST Spoke with patient's son William - please send to [facility] - no longer using [facility]. * Telephone Encounter - Moira Brandon APRN.CNP - 08/03/2022 4:04 PM EST Patient was getting prescriptions from [facility], does she want them from [facility] now? Moira Brandon APRN.CNP * Telephone Encounter - Lorri Chuck - 08/03/2022 1:50 PM EST Patient has been identified by name and date of : Yes Requested Prescriptions Pending Prescriptions Disp Refills aspirin, enteric coated (JOSE LOW DOSE ASPIRIN) 81 mg EC tablet 30 tablet 0 Sig: Take 1 tablet by mouth once daily. atorvastatin (LIPITOR) 20 mg tablet 90 tablet 3 Sig: Take 1 tablet by mouth once daily. carvedilol (COREG) 12.5 mg tablet 180 tablet 0 Sig: Take 1 tablet by mouth twice daily with meals. clopidogrel (PLAVIX) 75 mg tablet 90 tablet 3 Sig: Take 1 tablet by mouth once daily. multivitamin tablet 90 tablet 1 Sig: Take 1 tablet by mouth once daily. levothyroxine (SYNTHROID) 50 mcg tablet 90 tablet 3 Sig: Take 1 tablet by mouth once daily. on an empty stomach 1/2 hour before meal. levETIRAcetam (KEPPRA) 500 mg tablet Sig: Take 1 tablet by mouth twice daily. lisinopril (ZESTRIL, PRINIVIL) 5 mg tablet 90 tablet 2 Sig: Take 1 tablet by mouth once daily. spironolactone (ALDACTONE) 25 mg tablet 90 tablet 3 Sig: Take 1 tablet by mouth once daily. furosemide (LASIX) 20 mg tablet 90 tablet 2 Sig: Take 1 tablet by mouth once daily. albuterol (PROVENTIL) 2.5 mg /3 mL (0.083 %) nebulizer solution Sig: Use 3 mL via nebulizer every 6 hours as needed for wheezing/shortness of breath. Use over 5-15minutes. albuterol HFA (VENTOLIN HFA) 90 mcg/actuation inhaler 1 Each 2 Sig: Inhale 2 Puffs as instructed every 4 hours as needed for wheezing/shortness of breath. RX INSTRUCTIONS: Patient aware RX will be sent to pharmacy. No need to notify patient. Lorri Woods documented in this encounterThe [facility]12-05-2022 Miscellaneous Notes* Telephone Encounter - Yohan Bustillo Ma - 08/03/2022 9:06 AM EST JAIDEN: 07/16/2022 Last refill: 07/30/2022 QTY: 30 Refills: 0 Patient's request for medication is as follows: Requested Prescriptions Pending Prescriptions Disp Refills lisinopril (ZESTRIL, PRINIVIL) 5 mg tablet [Pharmacy Med Name: LISINOPRIL 5 MG TABLET] 90 tablet 0 Sig: take 1 tablet by mouth once daily Please approve the above prescription(s) to electronically send to pharmacy. Yohan Bustillo Ma documented in this encounterThe [facility] Hospital12-02-2022 Miscellaneous Notes* Telephone Encounter - Suha Allen MA - 07/31/2022 10:59 AM EST Attempted to reach patient/EC: Home phone is no longer in service & mobile number no answer. The following approved medication requests have been transmitted electronically. Requested Prescriptions Signed Prescriptions Disp Refills aspirin, enteric coated (JOSE LOW DOSE ASPIRIN) 81 mg EC tablet 30 tablet 0 Sig: Take 1 tablet by mouth once daily. Authorizing Provider: LENIN BHATT lisinopril (ZESTRIL, PRINIVIL) 5 mg tablet 30 tablet 0 Sig: Take 1 tablet by mouth once daily. Authorizing Provider: LENIN BHATT MA * Telephone Encounter - Lenin Bhatt MD - 07/30/2022 7:36 PM EST Patient's request for medication is as follows Requested Prescriptions Signed Prescriptions Disp Refills aspirin, enteric coated (JOSE LOW DOSE ASPIRIN) 81 mg EC tablet 30 tablet 0 Sig: Take 1 tablet by mouth once daily. Authorizing Provider: LENIN BHATT lisinopril (ZESTRIL, PRINIVIL) 5 mg tablet 30 tablet 0 Sig: Take 1 tablet by mouth once daily. Authorizing Provider: LENIN BHATT Order entered - please phone pharmacy and notify patient. 30 DAY LOCAL SUPPLY. Lenin Bhatt MD * Telephone Encounter - Bettie Michaud - 07/30/2022 9:52 AM EST Patient has been identified by name and date of : Yes Patient's son for refill(s): Requested Prescriptions Pending Prescriptions Disp Refills aspirin, enteric coated (JOSE LOW DOSE ASPIRIN) 81 mg EC tablet 90 tablet 3 Sig: Take 1 tablet by mouth once daily. lisinopril (ZESTRIL, PRINIVIL) 5 mg tablet 90 tablet 2 Sig: Take 1 tablet by mouth once daily. PATIENT'S SON REPORTS THAT THE MAIL DELIVERY SERVICE DID NOT FILL THE ABOVE MENTIONED MEDICATIONS APPROPRIATELY DUE TO ELECTRONIC COMMUNICATION ERROR. PATIENT IS CURRENTLY OUT OF MEDICATION. PLEASE NOTIFY PATIENT'S SON ONCE ORDERS HAVE BEEN SENT TO PHARMACY Date of last office visit in primary care: 07/16/2022 Last 2 Encounter Wt Readings: Date: Wt: 07/16/2022 71.7 kg (158 lb) 06/10/2022 70.8 kg (156 lb) Previous labs/tests for medication: Not applicable Please advise. Thank you. Btetie Michaud documented in this encounterThe [facility]11-22-2022 Miscellaneous Notes* Telephone Encounter - April Vora LPN - 07/21/2022 7:03 AM EST Patient's request for medication is as follows: Requested Prescriptions Pending Prescriptions Disp Refills spironolactone (ALDACTONE) 25 mg tablet [Pharmacy Med Name: Spironolactone 25mg Tablet] 90 tablet 3 Sig: Take 1 tablet by mouth daily. Last seen 06/10/2022. Follow up scheduled for 07/07/2023. Prescription(s) as above. Please process accordingly. Aprli Vora LPN documented in this encounterThe [facility] Hospital11-11-2022 Miscellaneous Notes* Telephone Encounter - Moira Brandon APRN.CNP - 07/10/2022 9:24 AM EST I will send antibiotic prescription but if symptoms don't improve in a few days or worsen she will need to be seen. How is she doing today? Moira Brandon APRN.CNP * Telephone Encounter - Edmund Gomes RN - 07/08/2022 4:39 PM EST Patient's son calling with request for antibiotic for patient for possible UTI. He states she is fatigued, fell at home today and has foul, fishy smelling urine. Advised appointment and he declined due to transportation issues. Advised she may need UA/C+S in lab. He states she won't be able to come to lab due to transportation issues. Patient is scheduled for follow up appointment with PCP on 07/16. Edmund Gomes RN documented in this encounterThe [facility]11-02-2022 Miscellaneous Notes* Telephone Encounter - Divya Ibanez RN - 07/01/2022 12:57 PM EDT Last Office Visit: 12/12/2021 Future Office Visit: 07/01/2022 Requested Prescriptions Pending Prescriptions Disp Refills atorvastatin (LIPITOR) 20 mg tablet 90 tablet 3 Sig: Take 1 tablet by mouth once daily. 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 Patient also has a history of COPD with chronic hypoxic respiratory failure on 2 L home oxygen. 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 The second stroke occurred when her Plavix was discontinued for the hysterectomy. She also has occlusive aortoiliac disease as being medically managed. She had an abnormal stress test in 2018 following which he underwenta left heart catheterization which showed only minimal luminal irregularities. She is accompanied with her son today. Patient also has been a former smoker. At today's visit she denies any chest pain shortness of breath palpitations lightheadedness syncopeorthopnea PND or leg edema. She is in a wheelchair. 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 Aramis Nielson, Neurology Seizure disorder ([facility]) 03/2013 Shortness of breath Stroke (cerebrum) ([facility]) 2015 recurrent Stroke ([facility]) 04/22/2013 aphasia,left facial droop PAST SURGICAL HISTORY Procedure Laterality Date HERNIA REPAIR HX 1984 HYSTERECTOMY HX 12/02/2015 vag.hyst,[place] colpocleisis, sub urethral sling LEFT HEART CATH 12/20/2018 REM LESION NEC,HND,SCAL 2.1-3.0CM Right 09/19/2016 Removal right retroauricular nimesh cyst FAMILY HISTORY Problem Relation Age of Onset Heart Failure Mother Kidney Disease Mother other (Other) Mother TIA Cancer Father COPD Sister Cancer Brother No Known Problems Brother Emphysema Son other (Other) Son scoliosis No Known Problems Son No Known Problems Son Social History Tobacco Use Smoking status: Former Types: Cigarettes Quit date: 03/30/2013 Years since quittin.2 Smokeless tobacco: Never Vaping Use Vaping Use: Never used Substance Use Topics Alcohol use: No Drug use: No Current Outpatient Medications Medication Sig multivitamin tablet Take 1 tablet by mouth once daily. Multivitamin daily - chelle tab. [facility] # [id number] carvedilol (COREG) 12.5 mg tablet Take 1 tablet by mouth twice daily with meals. spironolactone (ALDACTONE) 25 mg tablet Take 1 tablet by mouth daily. sertraline (ZOLOFT) 100 mg tablet Take 1.5 tablets by mouth once daily. clopidogrel (PLAVIX) 75 mg tablet Take 1 tablet by mouth once daily. levothyroxine (SYNTHROID) 50 mcg tablet Take 1 tablet by mouth once daily. on an empty stomach 1/2 hour before meal. lisinopril (ZESTRIL, PRINIVIL) 5 mg tablet Take 1 tablet by mouth once daily. aspirin, enteric coated (ASPIRIN LOW DOSE) 81 mg EC tablet Take 1 tablet by mouth once daily. albuterol HFA (VENTOLIN HFA) 90 mcg/actuation inhaler Inhale 2 Puffs as instructed every 4 hours asneeded for wheezing/shortness of breath. albuterol (PROVENTIL) 2.5 mg /3 mL (0.083 %) nebulizer solution Use 3 mL via nebulizer every 6 hours as needed for wheezing/shortness of breath. Use over 5-15minutes. atorvastatin (LIPITOR) 20 mg tablet Take 1 tablet by mouth once daily. furosemide (LASIX) 20 mg tablet Take 1 tablet by mouth as needed. levETIRAcetam (KEPPRA) 500 mg tablet Take 1 tablet by mouth twice daily. COMPOUNDED PRESCRIPTION 3 in 1 Bedside Commode Standard size DX CVA COMPOUNDED PRESCRIPTION Tub Grab Bar that hooks on side of tub DX CVA COMPOUNDED PRESCRIPTION Oxygen Portable tanks (D tanks with carry bag). O2 via nasal cannula at 2 LPM continuous. Dx: Heart failure, unspecified HF chronicity, unspecified heart failure type (HCC) - ICD9: 428.9, ICD10: I50.9 Acute on chronic respiratory failure with hypoxemia (HCC) - ICD9: 518.84, ICD10: J96.21 Pulse oximetry is 94% room air at rest. 85% with ambulation. 97% with O2 via NC at LPM. COMPOUNDED PRESCRIPTION NEBULIZER FOR HOME USE. DX: CHF, bronchospasm. Current Facility-Administered Medications Medication Dose Route Frequency perflutren lipid microspheres 1.3 mL in NaCl (PF) 0.9% 10 mL injection (DEFINITY) INTRAVENOUS DIRECTED PRN sodium chloride 0.9 % (flush) 10 mL (BD POSIFLUSH) 10 mL INTRAVENOUS DIRECTED PRN ALLERGIES No Known Allergies Review of Systems: GENERAL: Negative for: Weight loss or gain, Fever or Chills, Weakness and Sleep difficulties. HEENT: Negative for: Headache, Impaired Vision, Glasses, Hearing Impairment, Ringing in Ears, Nosebleeds, Poor dental care, Bleeding Gums, Dentures NECK: Negative for: Swelling, Pain, Stiffness RESPIRATORY: Negative for: Cough, Blood in Sputum, Shortness of breath, Wheezing, Apnea GASTROINTESTINAL: Negative for: Trouble swallowing, Heartburn, Change in bowel habits, Blood in stool, Dark black stools MUSCULOSKELETAL: Negative for: Muscle or joint pain, Stiffness , Joint swelling NEUROLOGIC/PSYCHIATRIC: Negative for: Weakness, Paralysis, Numbness, Tingling, Tremor, Nervousness,Depressed mood, Memory loss SKIN: Negative for: Rashes, Itching HEMATOLOGICAL/LYMPHATIC: Negative for: Easy bruising , Easy bleeding ENDOCRINE: Negative for: Heat or cold intolerance, Excessive sweating, Frequent urination, Frequentthirst I have confirmed and edited as necessary, the PFSH and ROS obtained by others. Physical Examination: BP (!) 113/45 Pulse 83 Ht 162.6 cm (5' 4.02 ) Wt 70.8 kg (156 lb) BMI 26.76 kg/m BMI 26.76kg/(m^2) General: Appears well in no acute distress Skin: No clubbing no cyanosis HEENT PERRLA Mucosa: Moist Neck: No JVD no carotid bruit no palpable thyromegaly Heart S1-S2 rate regular rhythm no murmur no rubs or gallops Lungs: Breath sounds equal clear to auscultation bilaterally Extremities no pedal edema Neuro: Oriented to time place and person grossly intact. Psych: Normal mood and affect Cardiac Testing and Procedures: Electrocardiogram: 06/10/2022: Normal sinus rhythm at 78 bpm. Incomplete LBBB. Nonspecific ST-T changes. 04/16/2021: Normal sinus rhythm at 84 bpm. LBBB Echocardiogram: 04/28/2021: EF 40%. Apical septum and apex are akinetic. Rest of the segments are hypokinetic. 10/12/2019: EF 35%. Stage I diastolic dysfunction. Entire anterior septum is akinetic. Mild inferoseptal segment and basal inferoseptal segments are severely hypokinetic. Entire anterior wall is mildly hypokinetic. Stress Test: Cardiac Catheterization/Percutaneous Coronary Intervention (PCI): 12/20/2018: Minimal luminal irregularities otherwise normal coronaries. ASSESSMENT/PLAN: 1. Chronic systolic (congestive) heart failure (HCC) - ICD9: 428.22, 428.0, ICD10: I50.22 (primary diagnosis) Patient appears euvolemic. She is to continue beta-blockers and ALYSIA inhibitor's and Aldactone in the current dose. She takes Lasix on an as-needed basis that is if she gains more than 2 pounds in a day or 5 pounds in a week.. She is aware that she needs to follow 2 g salt restricted and a 2 L fluidrestricted diet. 2. Cardiomyopathy, nonischemic (HCC) - ICD9: 425.4, ICD10: I42.8 Management as in 1. 3. PAD Was evaluated by Dr. Joy and was not thought to be a candidate for vascular interventions. She isto continue aspirin Plavix and statins. 4. CVA She is taking aspirin and Plavix along with statins for this. 5. Chronic hypoxic respiratory failure On 2 L home oxygen. Jonathan Aguila MD documented in this encounterThe [facility]10-06-2022 Miscellaneous Notes* Telephone Encounter - Gloria Martinez RN - 06/04/2022 12:45 PM EDT Sherman arechiga Keron called in asking about the Pts Multivitamin. Let him know that it was sent in yesterday at 810 am, and their pharmacy had confirmed it. He said he will check to see if it had been received. documented in this encounterThe [facility]10-05-2022 Miscellaneous Notes* Telephone Encounter - Vanita Easton RN - 06/03/2022 11:15 AM EDT Patient's son William returned call and given provider's message below and patient verbalized understanding. Janice Easton RN * Telephone Encounter - Yohan Bustillo Ma - 06/03/2022 10:36 AM EDT Left message to call office. 06/03/2022 10:36 AM Letter taken to Medical Records for picker operator. Please advise William. * Telephone Encounter - Patience Ridley LPN - 06/03/2022 9:10 AM EDT Pt's son William calling to request a letter for pt for heat assistance through [employer]. William said letter is to state pt is disabled & why she is disabled. William states pt had a stroke, has CHF etc. Please call William if/when ready & he'll picker operator in med recs. Patience Ridley LPN documented in this encounterThe [facility]10-04-2022 Miscellaneous Notes* Telephone Encounter - Nelly Corey [facility] [place] - 06/02/2022 12:39 PM EDT Patient has been identified by name and date of : Yes Requested Prescriptions Pending Prescriptions Disp Refills multivitamin tablet 90 tablet 3 Sig: Take 1 tablet by mouth once daily. Multivitamin daily - chelle tab. [facility] # [id number] RX INSTRUCTIONS: Patient aware RX will be sent to pharmacy. No need to notify patient. [facility] documented in this encounterThe [facility]09-19-2022 Miscellaneous Notes* Telephone Encounter - April Vora LPN - 05/18/2022 7:01 AM EDT Patient's request for medication is as follows: Requested Prescriptions Pending Prescriptions Disp Refills carvedilol (COREG) 12.5 mg tablet [Pharmacy Med Name: Carvedilol 12.5mg Tablet] 180 tablet 0 Sig: Take 1 tablet by mouth twice daily with meals. Last seen 04/16/2021 in [place]. Follow up scheduled for 06/10/2022. Prescription(s) as above. Please process accordingly. April Vora LPN documented in this encounterThe [facility]08-19-2022 Miscellaneous Notes* Telephone Encounter - CARLEEN Russ - 04/17/2022 9:01 AM EDT Patient sees Dr Aguila in [place]. Spoke with patient's son, and provided him the number to the [place] location. Felecia Walter April 17, 2022 9:02 AM * Telephone Encounter - Beti Farias LPN - 04/17/2022 8:00 AM EDT Please call this Dr Aguila patient to make a follow up visit with Dr Aguila or FINANCIAL ANALYSIS MANAGER. She was last seen on 04-16-2022 and was to be seen again in September of 2021. Thank you, Beti Farias LPN documented in this encounterThe [facility]08-19-2022 Miscellaneous Notes* Telephone Encounter - Beti Farias LPN - 04/17/2022 7:58 AM EDT Patient's pharmacy requesting new refill. Requested Prescriptions Pending Prescriptions Disp Refills spironolactone (ALDACTONE) 25 mg tablet [Pharmacy Med Name: Spironolactone 25mg Tablet] 90 tablet 0 Sig: Take 1 tablet by mouth daily. She saw Dr Agulia on 04-16-2021 and was to return in September of 2021. I sent a note to clerical staff to call the patient to make an appointment. Thank you, Beti Farias LPN documented in this encounterThe [facility]08-08-2022 Miscellaneous Notes* Telephone Encounter - VÍCTOR Alexandre - 04/06/2022 5:51 PM EDT Patient has been identified by name and date of : Yes Last office visit in this department: 01/08/2017 RX INSTRUCTIONS: Patient aware RX will be sent to pharmacy. No need to notify patient. Patient phones requesting refills as follows: Pending Prescriptions Disp Refills SERTRALINE 100 MG TABLET 45 tablet 3 Sig: Take 1.5 tablets by mouth once daily. VIVIEN: No Please review and advise. VÍCTOR Alexandre documented in this encounterThe [facility]08-05-2022 Miscellaneous Notes* Telephone Encounter - Colette Hernandez Cma - 04/03/2022 1:30 PM EDT Patients son called back results given. Colette Hernandez Cma * Telephone Encounter - Beata Lugo Cma - 04/03/2022 11:33 AM EDT Left message for patient to return call to office. Beata Lugo Cma * Telephone Encounter - Zachariah Gonzales Jr., MD - 04/03/2022 11:09 AM EDT Urine cx+ abx sent documented in this encounterThe [facility]08-03-2022 History of Present illness Narrative* Zachariah Gonzales Jr., MD - 04/01/2022 8:36 AM EDT ESTABLISHED PATIENT OFFICE VISIT HPI Dalia Lopez is a 71 year old female who presents L renal mass. Ct reviewed with patient. 2cm L renal mass. Significant co-morbidities. Cannot come of plavix per son. Also on asa. Unsure if she canstop that. No heart issues. 40pk/year smoker. On no lung meds or O2. However significant issue withwheezing. Has had hernia repair and hysterectomy. Dicussed active surveillance vs. Ablative therapyvs. Partial nephrectomy. Co Dysuria. 08/26/18 - renal us discussed. Stable L renal mass. No pain. 03/14/19 - renal lesion 2.4cm. 2.3cm last time. No issues. No pain. No hematuria. 11/12/20 - renal lesion stable in 03/2020. Occasional uti. Otherwise no issues. 03/31/22 - renal us shows L renal lesion stable at 2.1cm. no pain. No fever. ua +. Not having any symptoms. No luts. Feels well otherwise. LAB: Creatinine Date Value Ref Range Status 12/15/2021 0.92 0.58 - 0.96 mg/dL Final No results found for: PSA No results found for: UGLUC, UBILI, UKET, SPGR, UHB, UPH, UPROT, UROBIL, NITRITES, UWBC, UCOLAP MEDICATIONS: clopidogrel (PLAVIX) 75 mg tablet Take 1 tablet by mouth once daily. levothyroxine (SYNTHROID) 50 mcg tablet Take 1 tablet by mouth once daily. on an empty stomach 1/2 hour before meal. sertraline (ZOLOFT) 100 mg tablet Take 1.5 tablets by mouth once daily. carvedilol (COREG) 12.5 mg tablet Take 1 tablet by mouth twice daily with meals. lisinopril (ZESTRIL, PRINIVIL) 5 mg tablet Take 1 tablet by mouth once daily. aspirin, enteric coated (ASPIRIN LOW DOSE) 81 mg EC tablet Take 1 tablet by mouth once daily. albuterol HFA (VENTOLIN HFA) 90 mcg/actuation inhaler Inhale 2 Puffs as instructed every 4 hours asneeded for wheezing/shortness of breath. albuterol (PROVENTIL) 2.5 mg /3 mL (0.083 %) nebulizer solution Use 3 mL via nebulizer every 6 hours as needed for wheezing/shortness of breath. Use over 5-15minutes. atorvastatin (LIPITOR) 20 mg tablet Take 1 tablet by mouth once daily. multivitamin tablet Take 1 tablet by mouth once daily. Multivitamin daily - chelle tab. [facility] # [id number] spironolactone (ALDACTONE) 25 mg tablet Take 1 tablet by mouth daily. furosemide (LASIX) 20 mg tablet Take 1 tablet by mouth as needed. levETIRAcetam (KEPPRA) 500 mg tablet Take 1 tablet by mouth twice daily. COMPOUNDED PRESCRIPTION 3 in 1 Bedside Commode Standard size DX CVA COMPOUNDED PRESCRIPTION Tub Grab Bar that hooks on side of tub DX CVA COMPOUNDED PRESCRIPTION Oxygen Portable tanks (D tanks with carry bag). O2 via nasal cannula at 2 LPM continuous. Dx: Heart failure, unspecified HF chronicity, unspecified heart failure type (HCC) - ICD9: 428.9, ICD10: I50.9Acute on chronic respiratory failure with hypoxemia (HCC) - ICD9: 518.84, ICD10: J96.21Pulse oximetry is 94% room air at rest. 85% with ambulation. 97% with O2 via NC at LPM. COMPOUNDED PRESCRIPTION NEBULIZER FOR HOME USE. DX: CHF, bronchospasm. REVIEW OF SYSTEMS Review of Systems Constitutional: Negative. Respiratory: Negative. Cardiovascular: Negative. Gastrointestinal: Negative. Genitourinary: Negative. Skin: Negative. Neurological: Negative. Psychiatric/Behavioral: Negative. HISTORIES PAST MEDICAL HISTORY Diagnosis Date Abnormal stress test Acquired hypothyroidism 07/20/2016 Anxiety associated with depression 07/20/2016 Aphasia, late effect of cerebrovascular disease 07/20/2016 ASHD (arteriosclerotic heart disease) Bundle branch block, left CAD (coronary artery disease) Cardiomyopathy ([facility]) CHF (congestive heart failure) ([facility]) COVID-19 08/28/2020 Decubitus ulcer, stage 2 ([facility]) 09/15/2015 Essential hypertension 07/20/2016 Gram-negative sepsis, unspecified ([facility]) 09/15/2015 UTI HTN (hypertension) Hyperlipidemia 07/20/2016 Impaired fasting glucose 07/25/2016 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 Aramis Nielson, Neurology Seizure disorder ([facility]) 03/2013 Shortness of breath Stroke (cerebrum) ([facility]) 2015 recurrent Stroke ([facility]) 04/22/2013 aphasia,left facial droop FAMILY HISTORY Problem Relation Age of Onset Heart Failure Mother Kidney Disease Mother other (Other) Mother TIA Cancer Father COPD Sister Cancer Brother No Known Problems Brother Emphysema Son other (Other) Son scoliosis No Known Problems Son No Known Problems Son SOCIAL HISTORY Social History Tobacco Use Smoking status: Former Smoker Quit date: 03/30/2013 Years since quittin.0 Smokeless tobacco: Never Used Vaping Use Vaping Use: Never used Substance Use Topics Alcohol use: No Drug use: No PHYSICAL EXAMINATION General appearance: Well appearing, alert, in no acute distress and well- hydrated, well nourished Skin: Skin color, texture, turgor normal, no suspicious rashes or lesions Respiratory:+ effort Cardiovascular: Not examined GI: Normal abdominal exam, Abdomen soft, non-tender. No masses, organomegaly Musculoskeletal: Negative Neuro: Negative Genitourinary: not examined Impression: (N28.89) Renal mass (primary encounter diagnosis) (R30.0) Dysuria Plan: 2 years Renal us prior Urine cx Zachariah Gonzales Jr, MD 04/01/2022 documented in this encounterThe [facility]05-16-2022 Miscellaneous Notes* Telephone Encounter - Sheila Munoz LPN - 01/12/2022 1:15 PM EDT Left message on vm, letter is ready for pickup in Med Rec. Sheila Munoz LPN * Telephone Encounter - Lenin Bhatt MD - 01/12/2022 12:29 PM EDT Printed. * Telephone Encounter - Elmira Tam LPN - 01/12/2022 10:00 AM EDT Son calls in requesting a letter for pt to be excused from Jury Duty. He states pt has had a stroke, CHF, etc. Please advise son when done so he can picker operator. Time sensitive. Elmira Tam LPN documented in this encounterThe [facility]05-10-2022 Miscellaneous Notes* Telephone Encounter - Sheila Munoz LPN - 01/06/2022 12:25 PM EDT Patient has been identified by name and date of : Yes Patient phones for refill(s): Pending Prescriptions Disp Refills CLOPIDOGREL 75 MG TABLET 90 tablet 3 Sig: Take 1 tablet by mouth once daily. VIVIEN: No LEVOTHYROXINE 50 MCG TABLET 90 tablet 3 Sig: Take 1 tablet by mouth once daily. on an empty stomach 1/2 hour before meal. VIVIEN: No Date of last office visit in primary care: 12/12/2021 Medicare Wellness: 06/08/2022 Last 2 Encounter Wt Readings: Date: Wt: 12/12/2021 76.2 kg (168 lb) 07/15/2021 78.5 kg (173 lb) Previous labs/tests for medication: Thyroid: TSH Date Value 12/15/2021 3.070 mIU/L 04/03/2020 10.500 uU/mL Blood Pressure: BUN (mg/dL) Date Value 12/15/2021 18 01/21/2021 15 Sodium (mmol/L) Date Value 12/15/2021 141 01/21/2021 144 Last 1 Encounter BP Readings: Date: BP: 12/12/2021 128/62 Please advise. Thank you. Sheila Munoz LPN * Telephone Encounter - Rosina Braxton Pss - 01/06/2022 10:51 AM EDT Patient has been identified by name and date of : Yes Pending Prescriptions Disp Refills CLOPIDOGREL 75 MG TABLET 90 tablet 3 Sig: Take 1 tablet by mouth once daily. VIVIEN: No LEVOTHYROXINE 50 MCG TABLET 90 tablet 3 Sig: Take 1 tablet by mouth once daily. on an empty stomach 1/2 hour before meal. VIVIEN: No RX INSTRUCTIONS: Patient aware RX escripted to mail away pharmacy. No need to notify patient. Rosina Alfaro documented in this encounterThe [facility] Hospital05-05-2022 Miscellaneous Notes* Telephone Encounter - Tsering Rodriguez Pss - 01/01/2022 10:39 AM EDT Spoke with William, tammy. He states he will bring patient in for labs and urine. * Telephone Encounter - Vickie Ortega LPN - 12/25/2021 3:47 PM EDT Please call pt's son to arrange lab appt for lab ordered 12/17/21 and urine tests from 12/25/21. * Telephone Encounter - Lenin Bhatt MD - 12/25/2021 2:54 PM EDT Ordered. She already has urology appointment 01/02/22, so result will be reviewed there. * Telephone Encounter - Gloria Martinez RN - 12/25/2021 11:53 AM EDT Pts son called in and reports he is going to bring Pt in to get her iron levels checks. He states he thinks she has a UTI again, because her urine has that fishy smell to it again. He reports that she won't admit to any UTI symptoms and she changes her attends herself, so he doesn't get to look at it. He is asking if the provider would be willing to add a UA and urine culture to labs as well. If Pt does have a UTI he is asking if medication could be sent to [facility] in [place]. Please call [facility] number and advise. [facility] Miscellaneous Notes* Telephone Encounter - Yohan Bustillo Ma - 12/17/2021 9:14 AM EDT Patient's son notified, verbalized understanding. Yohan Bustillo Ma * Telephone Encounter - Moira Brandon APRN.CNP - 12/17/2021 8:22 AM EDT Labs were normal except for anemia. Check iron levels Moira Brandon APRN.CNP documented in this encounterThe [facility] History of Present illness Narrative* Lenin Bhatt MD - 12/12/2021 3:00 PM EDT This note was created using Octopusappriter. Subjective Dalia Lopez is a 71 year old female here with her son. She was doing well and had no concerns. She was using home oxygen, but supplier ran out of portable tanks. They were interested in a portableconcentrator. Review of Systems Constitutional: Negative. Negative for unexpected weight change. Respiratory: Negative for chest tightness and shortness of breath. Cardiovascular: Negative for chest pain, palpitations and leg swelling. Gastrointestinal: Negative. Neurological: Negative. Psychiatric/Behavioral: Negative for dysphoric mood. 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 Essential Hypertension Seizure As Late Effect of Cerebrovascular Accident (Cva) (Hcc) Pvd (Peripheral Vascular Disease) ([facility]) Acquired Hypothyroidism Hyperlipidemia Anxiety Associated With Depression Impaired Fasting Glucose Mass of Left Kidney Iron Deficiency Anemia Urinary Incontinence Bronchospasm Acute On Chronic Respiratory Failure With Hypoxemia ([facility]) Ischemic Cardiomyopathy Chronic Systolic (Congestive) Heart Failure ([facility]) Current Moderate Episode of Major Depressive Disorder ([facility]) Current Outpatient Medications Medication Sig sertraline (ZOLOFT) 100 mg tablet Take 1.5 tablets by mouth once daily. carvedilol (COREG) 12.5 mg tablet Take 1 tablet by mouth twice daily with meals. lisinopril (ZESTRIL, PRINIVIL) 5 mg tablet Take 1 tablet by mouth once daily. aspirin, enteric coated (ASPIRIN LOW DOSE) 81 mg EC tablet Take 1 tablet by mouth once daily. albuterol HFA (VENTOLIN HFA) 90 mcg/actuation inhaler Inhale 2 Puffs as instructed every 4 hours asneeded for wheezing/shortness of breath. albuterol (PROVENTIL) 2.5 mg /3 mL (0.083 %) nebulizer solution Use 3 mL via nebulizer every 6 hours as needed for wheezing/shortness of breath. Use over 5-15minutes. atorvastatin (LIPITOR) 20 mg tablet Take 1 tablet by mouth once daily. multivitamin tablet Take 1 tablet by mouth once daily. Multivitamin daily - chelle tab. [facility] # [id number] spironolactone (ALDACTONE) 25 mg tablet Take 1 tablet by mouth daily. furosemide (LASIX) 20 mg tablet Take 1 tablet by mouth as needed. levETIRAcetam (KEPPRA) 500 mg tablet Take 1 tablet by mouth twice daily. clopidogrel (PLAVIX) 75 mg tablet Take 1 tablet by mouth once daily. levothyroxine (SYNTHROID) 50 mcg tablet Take 1 tablet by mouth once daily. on an empty stomach 1/2 hour before meal. COMPOUNDED PRESCRIPTION 3 in 1 Bedside Commode Standard size DX CVA COMPOUNDED PRESCRIPTION Tub Grab Bar that hooks on side of tub DX CVA COMPOUNDED PRESCRIPTION Oxygen Portable tanks (D tanks with carry bag). O2 via nasal cannula at 2 LPM continuous. Dx: Heart failure, unspecified HF chronicity, unspecified heart failure type (HCC) - ICD9: 428.9, ICD10: I50.9 Acute on chronic respiratory failure with hypoxemia (HCC) - ICD9: 518.84, ICD10: J96.21 Pulse oximetry is 94% room air at rest. 85% with ambulation. 97% with O2 via NC at LPM. COMPOUNDED PRESCRIPTION NEBULIZER FOR HOME USE. DX: CHF, bronchospasm. Current Facility-Administered Medications Medication Dose Route Frequency perflutren lipid microspheres 1.3 mL in NaCl (PF) 0.9% 10 mL injection (DEFINITY) INTRAVENOUS DIRECTED PRN sodium chloride 0.9 % (flush) 10 mL (BD POSIFLUSH) 10 mL INTRAVENOUS DIRECTED PRN Objective BP 128/62 Pulse 93 Temp 36.3 C (97.3 F) (Temporal) Resp 24 Wt 76.2 kg (168 lb) SpO2 92% BMI 28.84 kg/m Physical Exam Constitutional: General: She is not in acute distress. HENT: Head: Normocephalic. Eyes: Conjunctiva/sclera: Conjunctivae normal. Cardiovascular: Rate and Rhythm: Normal rate and regular rhythm. Heart sounds: No murmur heard. No gallop. Pulmonary: Effort: No respiratory distress. Breath sounds: No wheezing or rales. Musculoskeletal: Right lower leg: No edema. Left lower leg: No edema. Neurological: General: No focal deficit present. Mental Status: She is alert. Gait: Gait abnormal. Comments: Rollator walker. Psychiatric: Mood and Affect: Mood normal. Assessment and Plan 1. Acute on chronic respiratory failure with hypoxemia (HCC) - ICD9: 518.84, ICD10: J96.21 (primarydiagnosis) - No desaturation demonstrated today, so I am unable to prescribe portable concentrator. - She can have a retest with DME supplier. Otherwise continue current care. 2. Chronic systolic (congestive) heart failure (HCC) - ICD9: 428.22, 428.0, ICD10: I50.22 Stable. 3. PVD (peripheral vascular disease) (HCC) - ICD9: 443.9, ICD10: I73.9 Stable. 4. Impaired fasting glucose - ICD9: 790.21, ICD10: R73.01 Overdue for recheck. 5. Hyperlipidemia, unspecified hyperlipidemia type - ICD9: 272.4, ICD10: E78.5 Overdue for recheck. 6. Acquired hypothyroidism - ICD9: 244.9, ICD10: E03.9 Overdue for recheck. 7. Current moderate episode of major depressive disorder, unspecified whether recurrent (HCC) - ICD9: 296.22, ICD10: F32.1 Controlled. Lenin Bhatt MD documented in this encounterThe [facility]04-13-[facility]22 Miscellaneous Notes* Telephone Encounter - Sheila Munoz LPN - 12/10/2021 12:54 PM EDT Patient has been identified by name and date of : Yes Patient phones for refill(s): Pending Prescriptions Disp Refills SERTRALINE 100 MG TABLET 45 tablet 3 Sig: Take 1.5 tablets by mouth once daily. VIVIEN: No Date of last office visit in primary care: 07/15/2021 3 month follow-up: 12/12/2021 Last 2 Encounter Wt Readings: Date: Wt: 07/15/2021 78.5 kg (173 lb) 04/16/2021 75.5 kg (166 lb 6.4 oz) Previous labs/tests for medication: Not applicable Please advise. Thank you. Sheila Munoz LPN * Telephone Encounter - Jo Pitmtan Pss - 12/10/2021 12:39 PM EDT Patient has been identified by name and date of : Yes Pending Prescriptions Disp Refills SERTRALINE 100 MG TABLET 45 tablet 3 Sig: Take 1.5 tablets by mouth once daily. VIVIEN: No RX INSTRUCTIONS: Patient aware RX will be sent to pharmacy. No need to notify patient. Jo Pittman Pss [facility] this [facility] Miscellaneous Notes* Telephone Encounter - Ermias Contreras - 11/21/2021 10:07 AM EDT Called Pt to schedule overdue 6 mth f/u appt; No answer, left vm to callback to schedule. -Ermias Contreras November 21, 2021 10:08 AM * Telephone Encounter - April Vora LPN - 11/21/2021 7:39 AM EDT Last seen 04/16/2021. Patient was instructed to follow up in 6 months. Please call patient with over due appointment. April Vora LPN [facility] this [facility] Miscellaneous Notes* Telephone Encounter - April Vora LPN - 11/21/2021 7:38 AM EDT Patient's request for medication is as follows: Pending Prescriptions Disp Refills CARVEDILOL 12.5 MG TABLET 180 tablet 1 Sig: Take 1 tablet by mouth twice daily with meals. VIVIEN: Yes Last seen 04/16/2021. Patient was instructed to follow up in 6 months. Message sent to clerical requesting they call patient with over due appointment. Prescription(s) as above. Please process accordingly. April Vora LPN [facility] this [facility]12[facility] History of Present illness Narrative* Aramis Cheng MD - 08/14/2021 10:56 AM EST NEUROLOGY Outpatient Follow-Up [facility] Epilepsy [facility] [address], [address] [place] [address] (office) / [phone] (fax) Patient Name: Dalia Lopez : 1950 MR #: [id number] Date of Neurology Follow-up: 08/14/21 Name of Neurologist: Aramis Cheng MD, ABPN Other Physicians: Lenin Bhatt MD (Primary Care Physician) Chief Complaint: Follow-up for Seizures (PT here for follow up No seizures since last visit. Yearlyfollow up. ) Interval History: Patient evaluated today for her known seizure disorder arising from prior Stroke.She reports no seizures since her last visit, with last occurring distantly. She continues on Keppra 500 mg po BID to good effect, and feels at ease by continuing to treat with an AED. Prior EEG was unrevealing, but she is strongly in favor of maintaining on Keppra due to fear of recurrent seizures. She takes ASA/Plavix for secondary stroke prevention following a Left MCA Stroke. Current AED regimen is Keppra 500 mg BID Current AED Side Effects: None endorsed Current Medications: Current Outpatient Medications on File Prior to Visit Medication Sig Dispense Refill aspirin 81 MG EC tablet Take 81 mg by mouth daily. atorvastatin (LIPITOR) 20 MG tablet Take 20 mg by mouth every evening . 1 carvedilol (COREG) 6.25 MG tablet Take 12.5 mg by mouth . citalopram (CELEXA) 20 MG tablet Take 20 mg by mouth daily 1 clopidogrel (PLAVIX) 75 mg tablet Take 75 mg by mouth daily 1 furosemide (LASIX) 20 MG tablet Take 1 tablet (20 mg total) by mouth daily. 7 tablet 0 ibuprofen (ADVIL,MOTRIN) 600 MG tablet Take 600 mg by mouth. levothyroxine (SYNTHROID, LEVOTHROID) 50 MCG tablet Take 50 mcg by mouth every morning . 1 lisinopril (PRINIVIL,ZESTRIL) 5 MG tablet Take 5 mg by mouth daily 0 multivitamin (DAILY MULTI-VITAMIN) per tablet Take 1 tablet by mouth daily. sertraline (ZOLOFT) 50 MG tablet Take 100 mg by mouth . spironolactone (ALDACTONE) 25 MG tablet [DISCONTINUED] levETIRAcetam (KEPPRA) 500 MG tablet Take 1 (one) tablet (500 mg total) by mouth 2 (two) times a day . 180 tablet 3 No current facility-administered medications on file prior to visit. Physical Examination: Patient is well-developed in appearance. No new findings with respect to Neurological functioning Additional Diagnostic data reviewed: Several unique medical records are reviewed today in context of Patient's encounter. Assessment and Plan: 1. Localization-related epilepsy (HCC) levETIRAcetam (KEPPRA) 500 MG tablet 2. History of stroke 3. LBBB (left bundle branch block) 4. Primary hypertension --Continue Keppra 500 mg bid for seizure prevention --Pt prefers to remain on medication over concern for recurrent seizures --Continue ASA/Plavix for secondary stroke prevention --EEG results reviewed today, unrevealing --Continue close follow with Cardiology given LBBB/CHF/PVD --Return to clinic in 1 year Aramis Cheng MD, ABPN, FAСВЕТЛАНА Adult Neurologist & Epileptologist [facility] Comprehensive Epilepsy Center A Level 4, NAEC-Certified Epilepsy Center documented in this [id number] History of Past illness Narrative* Problem Noted Date Resolved Date Heart failure 08/31/2018 09/27/2020 Dizziness and giddiness 08/31/2018 11/15/19 19 Sebaceous cyst 09/19/2016 06/30/2017 documented as of this encounter (statuses as of 11/21/2021) [facility] of Past illness Narrative* Problem Noted Date Resolved Date Heart failure 08/31/2018 09/27/2020 Dizziness and giddiness 08/31/2018 11/15/19 19 Sebaceous cyst 09/19/2016 06/30/2017 documented as of this encounter (statuses as of 11/21/2021) [facility] illness Narrative* Problem Noted Date Resolved Date Heart failure 08/31/2018 09/27/2020 Dizziness and giddiness 08/31/2018 11/15/19 19 Sebaceous cyst 09/19/2016 06/30/2017 documented as of this encounter (statuses as of 12/10/2021) [facility] Narrative* Problem Noted Date Resolved Date Heart failure 08/31/2018 09/27/2020 Dizziness and giddiness 08/31/2018 11/15/19 19 Sebaceous cyst 09/19/2016 06/30/2017 documented as of this encounter (statuses as of 12/12/2021) [facility] Narrative* Problem Noted Date Resolved Date Heart failure 08/31/2018 09/27/2020 Dizziness and giddiness 08/31/2018 11/15/19 19 Sebaceous cyst 09/19/2016 06/30/2017 documented as of this encounter (statuses as of 12/17/2021) [facility] Narrative* Problem Noted Date Resolved Date Heart failure 08/31/2018 09/27/2020 Dizziness and giddiness 08/31/2018 11/15/19 19 Sebaceous cyst 09/19/2016 06/30/2017 documented as of this encounter (statuses as of 01/06/2022) [facility] Narrative* Problem Noted Date Resolved Date Heart failure 08/31/2018 09/27/2020 Dizziness and giddiness 08/31/2018 11/15/19 19 Sebaceous cyst 09/19/2016 06/30/2017 documented as of this encounter (statuses as of 01/12/2022) [facility] Narrative* Problem Noted Date Resolved Date Heart failure 08/31/2018 09/27/2020 Dizziness and giddiness 08/31/2018 11/15/19 19 Sebaceous cyst 09/19/2016 06/30/2017 documented as of this encounter (statuses as of 04/01/2022) [facility] Narrative* Problem Noted Date Resolved Date Heart failure 08/31/2018 09/27/2020 Dizziness and giddiness 08/31/2018 11/15/19 19 Sebaceous cyst 09/19/2016 06/30/2017 documented as of this encounter (statuses as of 04/03/2022) [facility] Narrative* Problem Noted Date Resolved Date Heart failure 08/31/2018 09/27/2020 Dizziness and giddiness 08/31/2018 11/15/19 19 Sebaceous cyst 09/19/2016 06/30/2017 documented as of this encounter (statuses as of 04/07/2022) [facility] Narrative* Problem Noted Date Resolved Date Heart failure 08/31/2018 09/27/2020 Dizziness and giddiness 08/31/2018 11/15/19 19 Sebaceous cyst 09/19/2016 06/30/2017 documented as of this encounter (statuses as of 04/17/2022) [facility]* Problem Noted Date Resolved Date Heart failure 08/31/2018 09/27/2020 Dizziness and giddiness 08/31/2018 11/15/19 19 Sebaceous cyst 09/19/2016 06/30/2017 documented as of this encounter (statuses as of 04/17/2022) [facility] Narrative* Problem Noted Date Resolved Date Heart failure 08/31/2018 09/27/2020 Dizziness and giddiness 08/31/2018 11/15/19 19 Sebaceous cyst 09/19/2016 06/30/2017 documented as of this encounter (statuses as of 05/18/2022) [facility]* Problem Noted Date Resolved Date Heart failure 08/31/2018 09/27/2020 Dizziness and giddiness 08/31/2018 11/15/19 19 Sebaceous cyst 09/19/2016 06/30/2017 documented as of this encounter (statuses as of 05/25/2022) [facility]* Problem Noted Date Resolved Date Heart failure 08/31/2018 09/27/2020 Dizziness and giddiness 08/31/2018 11/15/19 19 Sebaceous cyst 09/19/2016 06/30/2017 documented as of this encounter (statuses as of 06/03/2022) [facility]* Problem Noted Date Resolved Date Heart failure 08/31/2018 09/27/2020 Dizziness and giddiness 08/31/2018 11/15/19 19 Sebaceous cyst 09/19/2016 06/30/2017 documented as of this encounter (statuses as of 06/03/2022) [facility]* Problem Noted Date Resolved Date Heart failure 08/31/2018 09/27/2020 Dizziness and giddiness 08/31/2018 11/15/19 19 Sebaceous cyst 09/19/2016 06/30/2017 documented as of this encounter (statuses as of 06/04/2022) [facility]* Problem Noted Date Resolved Date Heart failure 08/31/2018 09/27/2020 Dizziness and giddiness 08/31/2018 11/15/19 19 Sebaceous cyst 09/19/2016 06/30/2017 documented as of this encounter (statuses as of 06/10/2022) [facility]* Problem Noted Date Resolved Date Heart failure 08/31/2018 09/27/2020 Dizziness and giddiness 08/31/2018 11/15/19 19 Sebaceous cyst 09/19/2016 06/30/2017 documented as of this encounter (statuses as of 07/01/2022) [facility]* Problem Noted Date Resolved Date Heart failure 08/31/2018 09/27/2020 Dizziness and giddiness 08/31/2018 11/15/19 19 Sebaceous cyst 09/19/2016 06/30/2017 documented as of this encounter (statuses as of 07/21/2022) [facility]* Problem Noted Date Resolved Date Heart failure 08/31/2018 09/27/2020 Dizziness and giddiness 08/31/2018 11/15/19 19 Sebaceous cyst 09/19/2016 06/30/2017 documented as of this encounter (statuses as of 07/31/2022) [facility]* Problem Noted Date Resolved Date Heart failure 08/31/2018 09/27/2020 Dizziness and giddiness 08/31/2018 03/18/20 19 Sebaceous cyst 09/19/2016 06/30/2017 documented as of this encounter (statuses as of 08/03/2022) [facility]* Problem Noted Date Resolved Date Heart failure 08/31/2018 09/27/2020 Dizziness and giddiness 08/31/2018 11/15/19 19 Sebaceous cyst 09/19/2016 06/30/2017 documented as of this encounter (statuses as of 08/03/2022) [facility]* Problem Noted Date Resolved Date Heart failure 08/31/2018 09/27/2020 Dizziness and giddiness 08/31/2018 11/15/19 19 Sebaceous cyst 09/19/2016 06/30/2017 documented as of this encounter (statuses as of 08/05/2022) [facility]* Problem Noted Date Resolved Date Heart failure 08/31/2018 09/27/2020 Dizziness and giddiness 08/31/2018 11/15/19 19 Sebaceous cyst 09/19/2016 06/30/2017 documented as of this encounter (statuses as of 10/29/2022) [facility]* Problem Noted Date Resolved Date Heart failure 08/31/2018 09/27/2020 Dizziness and giddiness 08/31/2018 11/15/19 19 Sebaceous cyst 09/19/2016 06/30/2017 documented as of this encounter (statuses as of 02/15/2023) [facility]* Problem Noted Date Resolved Date Heart failure 08/31/2018 09/27/2020 Dizziness and giddiness 08/31/2018 11/15/19 19 Sebaceous cyst 09/19/2016 06/30/2017 documented as of this encounter (statuses as of 02/26/2023) [facility]* Problem Noted Date Resolved Date Heart failure 08/31/2018 09/27/2020 Dizziness and giddiness 08/31/2018 11/15/19 19 Sebaceous cyst 09/19/2016 06/30/2017 documented as of this encounter (statuses as of 02/27/2023) [facility]* Problem Noted Date Resolved Date Heart failure 08/31/2018 09/27/2020 Iron deficiency anemia 08/31/2018 Dizziness and giddiness 08/31/2018 11/15/19 19 Sebaceous cyst 09/19/2016 06/30/2017 documented as of this encounter (statuses as of 03/05/2023) [facility]* Problem Noted Date Diagnosed Date Resolved Date Heart failure 08/31/2018 09/27/2020 Iron deficiency anemia 08/31/201803/05 Dizziness and giddiness 08/31/201810/28 Sebaceous cyst 09/19/2016 06/30/2017 documented as of this encounter (statuses as of 03/09/2023) [facility]* Problem Noted Date Diagnosed Date Resolved Date Heart failure 08/31/2018 09/27/2020 Iron deficiency anemia 08/31/201803/05 Dizziness and giddiness 08/31/201810/28 Sebaceous cyst 09/19/2016 06/30/2017 documented as of this encounter (statuses as of 03/12/2023) [facility]* Problem Noted Date Diagnosed Date Resolved Date Heart failure 08/31/2018 09/27/2020 Iron deficiency anemia 08/31/201803/05 Dizziness and giddiness 08/31/201810/28 Sebaceous cyst 09/19/2016 06/30/2017 documented as of this encounter (statuses as of 03/25/2023) [facility]* Problem Noted Date Diagnosed Date Resolved Date Heart failure 08/31/2018 09/27/2020 Iron deficiency anemia 08/31/201803/05 Dizziness and giddiness 08/31/201810/28 Sebaceous cyst 09/19/2016 06/30/2017 documented as of this encounter (statuses as of 04/15/2023) [facility]* Problem Noted Date Diagnosed Date Resolved Date Heart failure 08/31/2018 09/27/2020 Iron deficiency anemia 08/31/201803/05 Dizziness and giddiness 08/31/201810/28 Sebaceous cyst 09/19/2016 06/30/2017 documented as of this encounter (statuses as of 04/20/2023) [facility]* Problem Noted Date Diagnosed Date Resolved Date Heart failure 08/31/2018 09/27/2020 Iron deficiency anemia 08/31/201803/05 Dizziness and giddiness 08/31/201810/28 Sebaceous cyst 09/19/2016 06/30/2017 documented as of this encounter (statuses as of 05/19/2023) [facility]* Problem Noted Date Diagnosed Date Resolved Date Heart failure 08/31/2018 09/27/2020 Iron deficiency anemia 08/31/201803/05 Dizziness and giddiness 08/31/201810/28 Sebaceous cyst 09/19/2016 06/30/2017 documented as of this encounter (statuses as of 05/21/2023) [facility]* Problem Noted Date Diagnosed Date Resolved Date Heart failure 08/31/2018 09/27/2020 Iron deficiency anemia 08/31/201803/05 Dizziness and giddiness 08/31/201810/28 Sebaceous cyst 09/19/2016 06/30/2017 documented as of this encounter (statuses as of 06/10/2023) [facility]* Problem Noted Date Diagnosed Date Resolved Date Heart failure 08/31/2018 09/27/2020 Iron deficiency anemia 08/31/201803/05 Dizziness and giddiness 08/31/201810/28 Sebaceous cyst 09/19/2016 06/30/2017 documented as of this encounter (statuses as of 07/04/2023) [facility]* Problem Noted Date Diagnosed Date Resolved Date Heart failure 08/31/2018 09/27/2020 Iron deficiency anemia 08/31/201803/05 Dizziness and giddiness 08/31/201810/28 Sebaceous cyst 09/19/2016 06/30/2017 documented as of this encounter (statuses as of 07/04/2023) [facility]* Problem Noted Date Diagnosed Date Resolved Date Heart failure 08/31/2018 09/27/2020 Iron deficiency anemia 08/31/201803/05 Dizziness and giddiness 08/31/201810/28 Sebaceous cyst 09/19/2016 06/30/2017 documented as of this encounter (statuses as of 07/04/2023) [facility]* Problem Noted Date Diagnosed Date Resolved Date Heart failure 08/31/2018 09/27/2020 Iron deficiency anemia 08/31/201803/05 Dizziness and giddiness 08/31/201810/28 Sebaceous cyst 09/19/2016 06/30/2017 documented as of this encounter (statuses as of 12/02/2023) [facility] note* Diagnosis 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, without mention of intractable epilepsy History of stroke Transient ischemic attack (TIA), and cerebral infarction without residual deficits LBBB (left bundle branch block) Other left bundle branch block Primary hypertension Unspecified essential hypertension documented in this encounter [facility] note* Diagnosis Acute on chronic respiratory failure with hypoxemia (HCC)- Primary Chronic systolic (congestive) heart failure (HCC) PVD (peripheral vascular disease) ([facility]) Peripheral vascular disease, unspecified Impaired fasting glucose Hyperlipidemia, unspecified hyperlipidemia type Acquired hypothyroidism Unspecified hypothyroidism Current moderate episode of major depressive disorder, unspecified whether recurrent (HCC) documented in this encounter [facility] note* Diagnosis Anemia, unspecified type- Primary documented in this encounter [facility] note* Diagnosis Urinary tract infection symptoms- Primary Other symptoms involving urinary system documented in this encounter [facility] note* Diagnosis Renal mass- Primary Unspecified disorder of kidney and ureter Dysuria documented in this encounter [facility] note* Diagnosis Chronic systolic (congestive) heart failure (HCC) documented in this encounter [facility] note* Diagnosis Encounter for screening mammogram for breast cancer documented in this encounter [facility] note* Diagnosis Cardiomyopathy, nonischemic (HCC)- Primary Other primary cardiomyopathies Chronic combined systolic and diastolic heart failure (HCC) Chronic combined systolic and diastolic heart failure [facility] Diagnosis Chronic systolic (congestive) heart failure (HCC) [facility]* Diagnosis 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 Unspecified late effects of cerebrovascular disease documented in this encounter [facility] note* Diagnosis 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 Unspecified late effects of cerebrovascular disease Chronic systolic (congestive) heart failure (HCC) Heart failure, unspecified HF chronicity, unspecified heart failure type (HCC) Acute on chronic respiratory failure with hypoxemia (HCC) Bronchospasm Acute bronchospasm [facility]* Diagnosis 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, without mention of intractable epilepsy documented in this encounter [facility] note* Diagnosis 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, without mention of intractable epilepsy History of stroke Transient ischemic attack (TIA), and cerebral infarction without residual deficits Primary hypertension Unspecified essential hypertension Pure hypercholesterolemia documented in this encounter [facility] note* Diagnosis 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)- Primary Hyperlipidemia, unspecified hyperlipidemia type Essential hypertension Unspecified essential hypertension Acquired hypothyroidism Unspecified hypothyroidism Impaired fasting glucose documented in this encounter [facility] note* Diagnosis Medicare annual wellness visit, subsequent- Primary Routine general medical examination at a health care facility Dermatophytosis of nail Pain in toes of both feet 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 Unspecified late effects of cerebrovascular disease Chronic systolic (congestive) heart failure (HCC) Ischemic cardiomyopathy Other specified forms of chronic ischemic heart disease Essential hypertension Unspecified essential hypertension Kidney insufficiency Unspecified disorder of kidney and ureter Sacral decubitus ulcer, stage II (HCC) Pressure ulcer, lower back Impaired fasting glucose [facility]* Diagnosis Callus of foot- Primary Corns and callosities Dermatophytosis of nail Pain in toes of both feet PVD (peripheral vascular disease) ([facility]) Peripheral vascular disease, unspecified [facility]* Diagnosis Peripheral arterial disease (HCC)- Primary Peripheral vascular disease, unspecified [facility]* Diagnosis Oxygen dependent- Primary Dependence on supplemental oxygen [facility]* Diagnosis Chronic bronchitis, unspecified chronic bronchitis type (HCC)- Primary Current moderate episode of major depressive disorder, unspecified whether recurrent (HCC) Acute on chronic respiratory failure with hypoxemia (HCC) Bilateral impacted cerumen Impacted cerumen [facility]* Diagnosis Chronic systolic (congestive) heart failure (HCC) documented [facility]* Diagnosis Renal mass Unspecified disorder of kidney and ureter documented [facility]* Diagnosis Encounter for screening mammogram for breast cancer documented [facility] this [facility]* Diagnosis Renal mass- Primary Unspecified disorder of kidney and ureter [facility] Diagnosis Pain in both lower extremities- Primary Acute on chronic respiratory failure with hypoxemia (HCC) Hyperlipidemia, unspecified hyperlipidemia type 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) Chronic systolic (congestive) heart failure (HCC) Acquired hypothyroidism Unspecified hypothyroidism Chronic bronchitis, unspecified chronic bronchitis type (HCC) Arteriosclerosis of coronary artery Coronary atherosclerosis of unspecified type of vessel, [place] or graft documented [facility]* Diagnosis Pain in both lower extremities [facility]* Diagnosis Medicare annual wellness visit, subsequent- Primary Routine general medical examination at a health care facility Pain in both lower extremities Essential hypertension Unspecified essential hypertension Abnormal mini-mental status exam Altered mental status 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 Unspecified late effects of cerebrovascular disease Aphasia, late effect of cerebrovascular disease PVD (peripheral vascular disease) (HCC) Peripheral vascular disease, unspecified Hyperlipidemia, unspecified hyperlipidemia type Impaired fasting glucose Encounter for routine eye and vision examination Current moderate episode of major depressive disorder, unspecified whether recurrent (HCC) Encounter for screening mammogram for breast cancer [facility]* Diagnosis Kidney insufficiency- Primary Unspecified disorder of kidney and ureter Anemia, unspecified type Seizure (HCC) Other convulsions [facility]* Diagnosis Hyperlipidemia, unspecified hyperlipidemia type [facility]* Diagnosis Renal mass Unspecified disorder of kidney and ureter [facility]* Diagnosis Pain in both lower extremities [facility]* Diagnosis 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 Unspecified late effects of cerebrovascular disease Chronic systolic (congestive) heart failure (HCC) documented [facility] this [facility]* Diagnosis Pain in both lower extremities [facility]* Diagnosis Urinary incontinence, unspecified type- Primary documented in this encounter [facility] for referral (narrative)* Diagnostic Procedure Only (Routine) - Pending Review Specialty Diagnoses / Procedures Referred By Contac t Referred To Contact US IMAGING Diagnoses Renal mass Procedures US KIDNEY/BLADDER US RETROPERITONEAL REAL TIME W/IMAGE COMPLETE Zachariah Gonzales Jr., MD [address] [place] [address] Us Imaging Referral ID Status Reason Start Date Expiration Date Visits Requested Visits Authorized [id number] Pending Review Auto-Generat ed Referral 03/31/2022 04/30/2023 1 1 [facility] for referral (narrative)* Diagnostic Procedure Only (Routine) - Pending Review Specialty Diagnoses / Procedures Referred By Contac t Referred To Contact BR IMAGING Diagnoses Encounter for screening mammogram for breast cancer Procedures RUSSELL SCREENING SCREENING MAMMOGRAPHY BI 2-VIEW BREAST INC CAD Lenin Bhatt MD [address] [place] [address] Br Imaging [address] [place] [address] Referral ID Status Reason Start Date Expiration Date Visits Requested Visits Authorized [id number] Pending Review Auto-Generat ed Referral 05/20/2022 06/19/2023 1 1 [facility] for referral (narrative)* Outpatient Procedure (Routine) - Closed Specialty Diagnoses / Procedures Referred By Contac t Referred To Contact [facility] Diagnoses Cardiomyopathy, nonischemic (HCC) Procedures ECG COMPLETE ECG ROUTINE ECG W/LEAST 12 LDS W/I&R Jonathan Aguila MD [address] [place] [address] [place] [id number] [place] [address] Referral ID Status Reason Start Date Expiration Date V isits Requested Visits Authorized [id number] Closed Auto-Generate d Referral 06/10/2022 06/10/2023 1 1 [facility] for referral (narrative)* Outpatient Procedure (Routine) - Authorized Specialty Diagnoses / Procedures Referred By Contac t Referred To Contact [facility] [address] [place] Diagnoses Dermatophytosis of nail PVD (peripheral vascular disease) (HCC) Procedures PVR ANK PRESS [facility] V[facility] NON-INVAS PHYSIOLOGIC STD EXTREMITY ART 2 LEVEL Pavan Mcclure [address] [place] [address] [place] [address] [place] [id number] Referral ID Status Reason Start Date Expiration Date Visits Requested Visits Authorized [id number] Authorized Auto-Generat ed Referral 03/12/2023 03/11/2024 1 1 [facility] for referral (narrative)* Diagnostic Procedure Only (Routine) - Closed Specialty Diagnoses / Procedures Referred By Contac t Referred To Contact US IMAGING Diagnoses Renal mass Procedures US KIDNEY/BLADDER US RETROPERITONEAL REAL TIME W/IMAGE COMPLETE Zachariah Gonzales Jr., MD [address] [place] [address] Us Imaging [place] [address] Referral ID Status Reason Start Date Expiration Date V isits Requested Visits Authorized [id number] Closed Auto-Generate d Referral 03/31/2022 04/30/2023 1 1 [facility] for referral (narrative)* Diagnostic Procedure Only (Routine) - Closed Specialty Diagnoses / Procedures Referred By Iwona t Referred To Contact BR IMAGING Diagnoses Encounter for screening mammogram for breast cancer Procedures RUSSELL SCREENING SCREENING MAMMOGRAPHY BI 2-VIEW BREAST INC Lenin Yun MD [address] [place] [address] Br Imaging [address] [place] [address] Referral ID Status Reason Start Date Expiration Date V isits Requested Visits Authorized [id number] Closed Auto-Generate d Referral 05/20/2022 06/19/2023 1 1 [facility] for referral (narrative)* Diagnostic Procedure Only (Routine) - Pending Review Specialty Diagnoses / Procedures Referred By Iwona smith Referred To Contact US IMAGING Diagnoses Renal mass Procedures US KIDNEY/BLADDER US RETROPERITONEAL REAL TIME W/IMAGE COMPLETE Zachariah Gonzales Jr., MD [facility] [place] [address] Us Imaging [facility] Referral ID Status Reason Start Date Expiration Date Visits Requested Visits Authorized [id number] Pending Review Auto-Generat ed Referral 12/02/2023 12/28/2024 1 1 [facility] for visit Narrative* Diagnostic Procedure Only (Routine) - Closed Specialty Diagnoses / Procedures Referred By Iwona smith Referred To Contact BR IMAGING Diagnoses Encounter for screening mammogram for breast cancer Procedures RUSSELL SCREENING SCREENING MAMMOGRAPHY BI 2-VIEW BREAST INC Lenin Yun MD [address] [place] [address] Br Imaging [address] [place] [address] Referral ID Status Reason Start Date Expiration Date V isits Requested Visits Authorized [id number] Closed Auto-Generate d Referral 05/20/2022 06/19/2023 1 1 [facility] Assessments Diagnosis Localization-related epileps y (HCC) - Primary Localization-related (focal) (partial) epilepsy and epileptic syndromes with simple partial seizures, without mention of intractable epilepsy History of stroke Transient ischemic attack (TIA), and cerebral infarction without residual deficits Essential hypertension Unspecified essential hypertension Pure hypercholesterolemia Diagnosis Localization-related epileps y (HCC) - Primary Localization-related (focal) (partial) epilepsy and epileptic syndromes with simple partial seizures, without mention of intractable epilepsy History of stroke Transient ischemic attack (TIA), and cerebral infarction without residual deficits LBBB (left bundle branch blo ck) Other left bundle branch block Essential hypertension Unspecified essential hypertension Diagnosis 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, without mention of intractable epilepsy Essential hypertension Unspecified essential hypertension Pure hypercholesterolemia Asymptomatic PVD (peripheral vascular disease) (HCC) Unspecified peripheral vascular disease Advance Directives Documents on File Type Date Recorded Patient Landing Signal Officer Expl anation Advance Directives and Livin g Will 10/05/2019 2:13 PM Power of Heat [employer] Insulator Helper Latest Code Status on File Code Status Date Activated Date Inactivated Comments Full Code - Unverified 12/10/2015 3:49 PM 12/12/2015 8:1 3 PM Full Code - Unverified 12/10/2015 2:21 PM 12/10/2015 3:4 9 PM Full Code 12/02/2015 6:03 PM 12/05/2015 11:06 PM Documents on File Type Date Recorded Patient Landing Signal Officer Expl anation Power of Heat [employer] Frost Insulator Helper Advance Directives and Livin g Will 10/05/2019 2:13 PM Documents on File Type Date Recorded Patient Landing Signal Officer Expl anation Advance Directive(s) 12/20/2018 8:41 AM Documents on File Type Date Recorded Patient Landing Signal Officer Expl anation Advance Directive(s) 12/20/2018 8:41 AM Documents on File Type Date Recorded Patient Landing Signal Officer Expl anation Power of Heat And Frost Insulator Helper Latest Code Status on File Code Status Date Activated Date Inactivated Comments Full Code - Unverified 12/10/2015 3:49 PM 12/12/2015 8:1 3 PM Code Status History Code Status Date Activated Date Inactivated Comments Full Code - Unverified 12/10/2015 2:21 PM 12/10/2015 3:4 9 PM Full Code 12/02/2015 6:03 PM 12/05/2015 11:06 PM History of Present Illness * Aramis Cheng MD - 08/11/2018 1:44 PM EST Formatting of this note may be different from the original. NEUROLOGY Outpatient Follow-Up [facility] Epilepsy Center [facility] [address], [address] [place] [id number] (office) / [phone] (fax) Patient Name: Dalia Lopez : 1950 MR #: [id number] Date of Neurology Follow-up: 08/11/18 Name of Neurologist: Aramis Cheng MD, ABPN Other Physicians: Lenin Bhatt MD (Primary Care Physician) Chief Complaint: Follow-up for Seizures (JAIDEN 08/26/17, Pt. reports no seizures) Interval History: Pt returns to the office in follow up of her known seizure disorder, provoked by prior Stroke. She reports no seizures since last seen. Continues to take Keppra 500 mg po bid loyally and to good effect. Prior EEG unrevealing, but she is strongly in favor of maintaining on Keppra due to fears of recurrent seizures. She takes ASA/Plavix for secondary stroke prevention following a Left MCA Stroke, with no further stroke noted. She endorses no side effects to medication. Continuesto have dysarthria and gait effect from prior Stroke. Past Medical History: Patient Active Problem List Diagnosis SNOMED CT(R) Localization-related epilepsy (HCC) LOCALIZATION-RELATED EPILEPSY History of stroke HISTORY OF CEREBROVASCULAR ACCIDENT LBBB (left bundle branch block) LEFT BUNDLE BRANCH BLOCK Abnormal stress test CARDIOVASCULAR STRESS TEST ABNORMAL Hypertension HYPERTENSIVE DISORDER Hyperlipidemia HYPERLIPIDEMIA Asymptomatic PVD (peripheral vascular disease) (HCC) PERIPHERAL VASCULAR DISEASE CHF (congestive heart failure) (HCC) CONGESTIVE HEART FAILURE Home Medications: Current Outpatient Prescriptions Medication Sig Dispense Refill aspirin 81 MG EC tablet Take 81 mg by mouth daily. atorvastatin (LIPITOR) 20 MG tablet Take 20 mg by mouth every evening . 1 citalopram (CELEXA) 20 MG tablet Take 20 mg by mouth daily 1 clopidogrel (PLAVIX) 75 mg tablet Take 75 mg by mouth daily 1 furosemide (LASIX) 20 MG tablet Take 1 tablet (20 mg total) by mouth daily. 7 tablet 0 ibuprofen (ADVIL,MOTRIN) 600 MG tablet Take 600 mg by mouth. levETIRAcetam (KEPPRA) 500 MG tablet Take 1 tablet (500 mg total) by mouth 2 (two) times a day. 60 tablet 11 levothyroxine (SYNTHROID, LEVOTHROID) 50 MCG tablet Take 50 mcg by mouth every morning . 1 lisinopril (PRINIVIL,ZESTRIL) 5 MG tablet Take 5 mg by mouth daily 0 multivitamin (DAILY MULTI-VITAMIN) per tablet Take 1 tablet by mouth daily. sertraline (ZOLOFT) 50 MG tablet Take 50 mg by mouth. carvedilol (COREG) 6.25 MG tablet Take 6.25 mg by mouth. No current facility-administered medications for this visit. Tobacco use: reports that she quit smoking about 5 years ago. Her smoking use included Cigarettes. She has a 45.00 pack-year smoking history. She has never used smokeless tobacco. Review of Systems: Pt denies dry mouth, mood change, or shortness of breath. Physical Examination: Vitals are reviewed by myself in detail within the EMR. Eyes are clear. Oral mucosa is moist. Extremities are without deformity. Skin is without rash. Neurological Examination: Cranial Nerves II-XII are examined, with ongoing dysarthia Strength is full and rated 5/5 throughout with normal bulk Sensation is intact to light touch throughout Reflexes 3+/4 over Right Hemibody Gait is of normal base and stride, without instability Additional Diagnostic data reviewed: Past medical records. Assessment and Plan: SNOMED CT(R) 1. Localization-related epilepsy (HCC) LOCALIZATION-RELATED EPILEPSY 2. History of stroke HISTORY OF CEREBROVASCULAR ACCIDENT 3. LBBB (left bundle branch block) LEFT BUNDLE BRANCH BLOCK 4. Essential hypertension ESSENTIAL HYPERTENSION --Continue Keppra 500 mg bid for seizure prevention --Pt prefers to remain on medication over concern for recurrent seizures --Continue ASA/Plavix for secondary stroke prevention --Follow with Cardiology for LBBB, HTN --EEG results reviewed today, unrevealing --Return to clinic in 1 year Thanks once again for involving our practice in Dalia's care. As always, it is a pleasure to participate in the care of your patients. Sincerely, Aramis Cheng MD, ABPN, FAES Adult Neurologist & Epileptologist [facility] Neurological Physicians [facility] Epilepsy Center A Level 4, NAEC-Certified Epilepsy Center in this encounter* Aramis Cheng MD - 10/05/2019 2:51 PM EST NEUROLOGY Outpatient Follow-Up [facility] Epilepsy [address], [address] [place] [address] (office) / [phone] (fax) Patient Name: Dalia Lopez : 1950 MR #: [id number] Date of Neurology Follow-up: 10/05/19 Name of Neurologist: Aramis Cheng MD, ABPN Other Physicians: Lenin Bhatt MD (Primary Care Physician) Chief Complaint: Follow-up for Seizures (F/U appt. JAIDEN 08/11/18. Pt. reports no seizures. ) Interval History: Pt returns to the office in care of her known seizure disorder, with nidus presumed to be her prior Stroke. She reports no seizures since last seen, thankfully. She continues to take Keppra 500 mg po BID to good effect. Prior EEG was unrevealing, but she is strongly in favor of maintaining on Keppra due to fears of recurrent seizures. She takes ASA/Plavix for secondary stroke prevention following a Left MCA Stroke, with no further stroke noted. She endorses no side effects to medication. Continues to have dysarthria and gait effect from prior Stroke. Current AED regimen is Keppra 500 mg BID Past Medical History: Patient Active Problem List Diagnosis Localization-related epilepsy (HCC) History of stroke LBBB (left bundle branch block) Abnormal stress test Hypertension Hyperlipidemia Asymptomatic PVD (peripheral vascular disease) ([facility]) CHF (congestive heart failure) ([facility]) Home Medications: Current Outpatient Medications Medication Sig Dispense Refill aspirin 81 MG EC tablet Take 81 mg by mouth daily. atorvastatin (LIPITOR) 20 MG tablet Take 20 mg by mouth every evening . 1 carvedilol (COREG) 6.25 MG tablet Take 12.5 mg by mouth . clopidogrel (PLAVIX) 75 mg tablet Take 75 mg by mouth daily 1 furosemide (LASIX) 20 MG tablet Take 1 tablet (20 mg total) by mouth daily. 7 tablet 0 ibuprofen (ADVIL,MOTRIN) 600 MG tablet Take 600 mg by mouth. levETIRAcetam (KEPPRA) 500 MG tablet Take 1 (one) tablet (500 mg total) by mouth 2 (two) times a day . 60 tablet 11 levothyroxine (SYNTHROID, LEVOTHROID) 50 MCG tablet Take 50 mcg by mouth every morning . 1 lisinopril (PRINIVIL,ZESTRIL) 5 MG tablet Take 5 mg by mouth daily 0 multivitamin (DAILY MULTI-VITAMIN) per tablet Take 1 tablet by mouth daily. sertraline (ZOLOFT) 50 MG tablet Take 100 mg by mouth . citalopram (CELEXA) 20 MG tablet Take 20 mg by mouth daily 1 No current facility-administered medications for this visit. Tobacco use: reports that she quit smoking about 7 years ago. Her smoking use included cigarettes. She has a 45.00 pack-year smoking history. She has never used smokeless tobacco. Review of Systems: Pt denies palpitations, shortness of breath, or dry mouth. Physical Examination: Patient is well-developed in appearance. Eyes are clear. Oral mucosa is moist. Extremities are without deformity. Skin is without rash. Neurological Examination: Cranial Nerves II-XII are examined, with ongoing dysarthia Strength is full and rated 5/5 throughout with normal bulk Sensation is intact to light touch throughout Reflexes 3+/4 over Right Hemibody Gait is of normal base and stride, without instability Additional Diagnostic data reviewed: Past medical records. Assessment and Plan: 1. Localization-related epilepsy (HCC) 2. Essential hypertension 3. Pure hypercholesterolemia 4. Asymptomatic PVD (peripheral vascular disease) (HCC) --Continue Keppra 500 mg bid for seizure prevention --Pt prefers to remain on medication over concern for recurrent seizures --Continue ASA/Plavix for secondary stroke prevention --Continue close follow with Cardiology --EEG results reviewed today, unrevealing --Return to clinic in 1 year Aramis Cheng MD, ABPN, FAСВЕТЛАНА Adult Neurologist & Epileptologist [facility] Neurological Physicians [facility] Comprehensive Epilepsy Center A Level 4, NAEC-Certified Epilepsy Center documented in this encounter Summary Purpose Family History No Family History Records FoundNo Family History Records FoundNo Family History Records FoundNo Family History Records FoundNo Family History Records Found Reason for Referral Specialty Diagnoses / Procedures Referred By Iwona smith Referred To Contact Podiatry Diagnoses Dermatophytosis of nail Pain in toes of both feet Procedures CONSULT TO PODIATRY OFFICE/OUTPATIENT [facility] 60-74 MINUTES Lenin Bhatt MD [address] [place] [address] Referral ID Status Reason Start Date Expiration Date Visits Requested Visits Authorized [id number] Authorized PCP Requested Referral 03/04/2023 03/03/2024 1 1 Specialty Diagnoses / Procedures Referred By Contac t Referred To Contact Gerontology Diagnoses Aphasia, 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 (cerebrovascular accident) Abnormal mini-mental status exam Procedures CONSULT TO GERIATRICS OFFICE/OUTPATIENT [facility] 60 MINUTES Moira Hearn, [employer] CONTROLLER.PROTOZOOLOGY TEACHER [address] [place] [address] Referral ID Status Reason Start Date Expiration Date Visits Requested Visits Authorized [id number] Authorized PCP Requested Referral 03/14/2024 03/14/2025 1 1 Specialty Diagnoses / Procedures Referred By Contac t Referred To Contact Ophthalmology Diagnoses Encounter for routine eye and vision examination Procedures CONSULT TO OPHTHALMOLOGY OFFICE/OUTPATIENT [facility] 60 MINUTES Moira Hearn, [employer] CONTROLLER.PROTOZOOLOGY TEACHER [address] [place] [address] Referral ID Status Reason Start Date Expiration Date Visits Requested Visits Authorized [id number] Authorized PCP Requested Referral 03/14/2024 03/14/2025 1 1 Specialty Diagnoses / Procedures Referred By Iwona t Referred To Contact BR IMAGING Diagnoses Encounter for screening mammogram for breast cancer Procedures RUSSELL SCREENING W YUKI SCREENING DIGITAL BREAST TOMOSYNTHESIS BI SCREENING MAMMOGRAPHY BI 2-VIEW BREAST INC CAD Moira Hearn, [employer] CONTROLLER.PROTOZOOLOGY TEACHER [address] [place] [address] [facility] [address] [place] [address] Referral ID Status Reason Start Date Expiration Date Visits Requested Visits Authorized [id number] New Request Auto-Generat ed Referral 03/14/2024 04/13/2025 1 1 Additional Source Comments Reason for Visit (unrecogniz ed section and content) Reason Comments Seizures JAIDEN 08/26/17, Pt. re ports no seizures Reason Comments Seizures F/U appt. JAIDEN . Pt. reports no seizures. Reason Comments Seizures PT here for follow u p No seizures since last visit. Yearly follow up. Reason Comments Appointment Called Pt to luannul e overdue 6 mth f/u appt; No answer, left vm to callback to schedule. Reason Comments Refill Request Reason Onset Date Comments Refill Request 12/10/2021 Reason Comments Recheck Reason Comments Results Reason Onset Date Comments Refill Request 01/06/2022 Reason Comments Patient Update Orders Reason Comments Letter Reason Comments Established Patient Kidney follow up Reason Onset Date Comments Refill Request 04/06/2022 Reason Comments Appointment Reason Comments Letter For Community Action Reason Comments Medication Question Reason Comments Follow Up Chronic heart failur e Reason Onset Date Comments Refill Request 07/01/2022 Reason Onset Date Comments Refill Request 07/30/2022 Reason Comments Med Change Request Reason Onset Date Comments Refill Request 08/03/2022 Reason Comments Medication Request Reason Comments Seizures Pt here for follow u p. Pt states that she has been ok. PT has not had a seizure since 2012. Pts son wonders if she might have a UTI, asks if a rx can be sent for abx. Reason Onset Date Comments Refill Request 10/27/2022 Reason Onset Date Comments Refill Request 02/25/2023 Reason Comments Medicare Wellness Exam Reason Comments New Pain Swelling nail deformity Specialty Diagnoses / Procedures Referred By Iwona t Referred To Contact Podiatry Diagnoses Dermatophytosis of nail Pain in toes of both feet Procedures CONSULT TO PODIATRY OFFICE/OUTPATIENT NEW [facility] 60-74 MINUTES Lenin Bhatt MD [address] [place] [address] Referral ID Status Reason Start Date Expiration Date V isits Requested Visits Authorized [id number] Closed PCP Requested Referral 03/04/2023 03/03/2024 1 1 Reason Comments New Patient PMH: PAD She is on p lavix. Reason Comments Orders Reason Comments Follow Up Earache Reason Comments Radiology US Specialty Diagnoses / Procedures Referred By Contewa t Referred To Contact US IMAGING Diagnoses Renal mass Procedures US KIDNEY/BLADDER US RETROPERITONEAL REAL TIME W/IMAGE COMPLETE Zachariah Gonzales Jr., MD [address] [place] [address] [place] [address] Referral ID Status Reason Start Date Expiration Date V isits Requested Visits Authorized [id number] Closed Auto-Generate d Referral 03/31/2022 04/30/2023 1 1 Reason Comments Edema Reason Onset Date Comments Refill Request 01/09/2024 Reason Onset Date Comments Refill Request 03/13/2024 Reason Comments Medicare Wellness Exam F/U 3 Month Reason Onset Date Comments Refill Request 03/23/2024 Reason Comments Radiology US Specialty Diagnoses / Procedures Referred By Contac t Referred To Contact US IMAGING Diagnoses Renal mass Procedures US KIDNEY/BLADDER US RETROPERITONEAL REAL TIME W/IMAGE COMPLETE Zachariah Gonzales Jr., MD [address] [place] [address] [place] [address] Referral ID Status Reason Start Date Expiration Date V isits Requested Visits Authorized [id number] Closed Auto-Generate d Referral 12/02/2023 12/28/2024 1 1 Reason Onset Date Comments Refill Request 04/18/2024 Reason Comments Opened In Error Reason Onset Date Comments Refill Request 05/30/2024 Reason Onset Date Comments Refill Request 06/06/2024 Reason Comments Patient Update INFORMATION SOURCE (unrecogn ized section and content) DATE CREATED AUTHOR 12/20/2018 [facility] DATE CREATED AUTHOR AUTHOR'S ORGANIZ ATION 10/30/2019 [facility] ([place]) DATE CREATED AUTHOR AUTHOR'S ORGANIZ ATION 09/29/2022 [facility] DATE CREATED AUTHOR AUTHOR'S ORGANIZ ATION 04/14/2024 [facility] DATE CREATED AUTHOR AUTHOR'S ORGANIZ ATION 06/14/2024 [facility] (unrecognized sec tion and content) Stationary Engineer Refrigeration Relationship Specialty Start Date End Date Lenin Bhatt MD [address] [place], [place] [id number] PCP - General Internal Medicine 02/03/17 Arlette Lorenzo MD [address] [place] [address] Referring Physician Obstetrics/Gynecology 02/26/15 Aramis Cheng MD [address] [place] [address] Jean-Paul Indra [address] [place] [address] Consulting Physician Neurology 09/25/15 Felecia Shultz MD [address] [facility] [address] [place] [address] Consulting Physician Urogynecology 09/25/15 Stationary Engineer Refrigeration Relationship Specialty Start Date End Date Lenin Bhatt MD [address] [facility] [address] PCP - General 10/18/02 Stationary Engineer Refrigeration Relationship Specialty Start Date End Date Lenin Bhatt MD [address] [place] [address] PCP - General 10/18/02 Stationary Engineer Refrigeration Relationship Specialty Start Date End Date Lenin Bhatt MD [address] [place] [address] PCP - General 10/18/02 Stationary Engineer Refrigeration Relationship Specialty Start Date End Date Lenin Bhatt MD [address] [place] [address] PCP - General 10/18/02 Stationary Engineer Refrigeration Relationship Specialty Start Date End Date Lenin Bhatt MD [address] [place] [address] PCP - General 10/18/02 Stationary Engineer Refrigeration Relationship Specialty Start Date End Date Lenin Bhatt MD [address] [facility] [place] [address] PCP - General 10/18/02 Stationary Engineer Refrigeration Relationship Specialty Start Date End Date Lenin Bhatt MD [address] [place] [address] PCP - General 10/18/02 Stationary Engineer Refrigeration Relationship Specialty Start Date End Date Lenin Bhatt MD [address] [place] [address] PCP - General 10/18/02 Stationary Engineer Refrigeration Relationship Specialty Start Date End Date Lenin Bhatt MD [address] [place] [address] PCP - General 10/18/02 Stationary Engineer Refrigeration Relationship Specialty Start Date End Date Lenin Bhatt MD [address] [place] [address] PCP - General 10/18/02 Stationary Engineer Refrigeration Relationship Specialty Start Date End Date Lenin Bhatt MD [address] [place] [address] PCP - General 10/18/02 Stationary Engineer Refrigeration Relationship Specialty Start Date End Date Lenin Bhatt MD [address] [place] [address] PCP - General 10/18/02 Stationary Engineer Refrigeration Relationship Specialty Start Date End Date Lenin Bhatt MD [address] [place] [address] PCP - General 10/18/02 Stationary Engineer Refrigeration Relationship Specialty Start Date End Date Lenin Bhatt MD [address] [place] [address] PCP - General 10/18/02 Stationary Engineer Refrigeration Relationship Specialty [place] [address] [place] [address], [place] [address] PCP - General Internal Medicine 02/03/17 Arlette Lorenzo MD [address] [place], [place] [address] [place] [id number] Referring Physician Obstetrics/Gynecology 02/26/15 Aramis Cheng MD [address] [facility] [address] [place] [address] Consulting Physician Neurology 09/25/15 Felecia Shultz MD [address] [address] Consulting Physician Urogynecology 09/25/15 Stationary Engineer Refrigeration Relationship Specialty Start Date End Date Lenin Bhatt MD [address] [place] [address] PCP - General Internal Medicine 02/03/17 Arlette Lorenzo MD [address] [place] [address] Referring Physician Obstetrics/Gynecology 02/26/15 [place] [address] [place] [address] [address] [place] [address] Consulting Physician Neurology 09/25/15 Felecia Suhltz MD [address] [address] Consulting Physician Urogynecology 09/25/15 Stationary Engineer Refrigeration Relationship Specialty Start Date End Date Lenin Bhatt MD [address] [place] [address] PCP - General 10/18/02 Stationary Engineer Refrigeration Relationship Specialty Start Date End Date Lenin Bhatt MD [facility] [place] [address] PCP - General 10/18/02 Stationary Engineer Refrigeration Relationship Specialty Start Date End Date Lenin Bhatt MD [address] [place] [address] PCP - General 10/18/02 Stationary Engineer Refrigeration Relationship Specialty Start Date End Date Lenin Bhatt MD [address] [place] [address] PCP - General 10/18/02 Stationary Engineer Refrigeration Relationship Specialty Start Date End Date Lenin Bhatt MD [address] [place] [address] PCP - General 10/18/02 Stationary Engineer Refrigeration Relationship Specialty Start Date End Date Lenin Bhatt MD [address] [place] [address] PCP - General 10/18/02 Stationary Engineer Refrigeration Relationship Specialty Start Date End Date Lenin Bhatt MD [address] [place] [address] PCP - General 10/18/02 Stationary Engineer Refrigeration Relationship Specialty Start Date End Date Lenin Bhatt MD [address] [place] [address] PCP - General 10/18/02 Stationary Engineer Refrigeration Relationship Specialty Start Date End Date Lenin Bhatt MD [address] [place] [address] PCP - General 10/18/02 Stationary Engineer Refrigeration Relationship Specialty Start Date End Date Lenin Bhatt MD [address] [place] [address] PCP - General 10/18/02 Stationary Engineer Refrigeration Relationship Specialty Start Date End Date Lenin Bhatt MD [address] [place] [address] PCP - General 10/18/02 Stationary Engineer Refrigeration Relationship Specialty Start Date End Date Lenin Bhatt MD [address] [place] [address] PCP - General 10/18/02 Stationary Engineer Refrigeration Relationship Specialty Start Date End Date Lenin Bhatt MD [address] [place] [address] PCP - General 10/18/02 Stationary Engineer Refrigeration Relationship Specialty Start Date End Date Lenin Bhatt MD [address] [place] [address] PCP - General 10/18/02 Stationary Engineer Refrigeration Relationship Specialty Start Date End Date Lenin Bhatt MD [address] [place] [address] PCP - General 10/18/02 Stationary Engineer Refrigeration Relationship Specialty Start Date End Date Lenin Bhatt MD [address] [place] [address] PCP - General 10/18/02 Stationary Engineer Refrigeration Relationship Specialty Start Date End Date Lenin Bhatt MD [address] [place] [address] PCP - General 10/18/02 Stationary Engineer Refrigeration Relationship Specialty Start Date End Date Lenin Bhatt MD [address] [place] [address] PCP - General 10/18/02 Stationary Engineer Refrigeration Relationship Specialty Start Date End Date Lenin Bhatt MD [address] [place] [address] PCP - General 10/18/02 Stationary Engineer Refrigeration Relationship Specialty Start Date End Date Lenin Bhatt MD [address] [place] [address] PCP - General 10/18/02 Stationary Engineer Refrigeration Relationship Specialty Start Date End Date Lenin Bhatt MD [address] [place] [address] PCP - General 10/18/02 Stationary Engineer Refrigeration Relationship Specialty Start Date End Date Lenin Bhatt MD [address] [place] [address] PCP - General 10/18/02 Stationary Engineer Refrigeration Relationship Specialty Start Date End Date Lenin Bhatt MD [address] [place], [place] [address] PCP - General 10/18/02 Source Comments (unrecognize d section and content) In the event this informatio n is protected by the [facility] Confidentiality of Alcohol and Drug Abuse Patient Records regulations: The Federal rules restrict any use of the information to criminally investigate or prosecute any alcohol or drug abuse patient.[facility] the event this information is protected by the Federal Confidentiality of Alcohol and Drug Abuse Patient Records regulations: The Federal rules restrict any use of the information to criminally investigate or prosecute any alcohol or drug abuse patient.[facility]In the event this information is protected by the Federal Confidentiality of Alcohol and Drug Abuse Patient Records regulations: The Federal rules restrict any use of the information to criminally investigate or prosecute any alcohol or drug abuse patient.[facility]In the event this information is protected by the Federal Confidentiality of Alcohol and Drug Abuse Patient Records regulations: The Federal rules restrict any use of the information to criminally investigate or prosecute any alcohol or drug abuse patient.[facility]In the event this information is protected by the Federal Confidentiality of Alcohol and Drug Abuse Patient Records regulations: The Federal rules restrict any use of the information to criminally investigate or prosecute any alcohol or drug abuse patient.[facility]In the event this information is protected by the Federal Confidentiality of Alcohol and Drug Abuse Patient Records regulations: The Federal rules restrict any use of the information to criminally investigate or prosecute any alcohol or drug abuse patient.[facility]In the event this information is protected by the Federal Confidentiality of Alcohol and Drug Abuse Patient Records regulations: The Federal rules restrict any use of the information to criminally investigate or prosecute any alcohol or drug abuse patient.[facility]In the event this information is protected by the Federal Confidentiality of Alcohol and Drug Abuse Patient Records regulations: The Federal rules restrict any use of the information to criminally investigate or prosecute any alcohol or drug abuse patient.[facility]In the event this information is protected by the Federal Confidentiality of Alcohol and Drug Abuse Patient Records regulations: The Federal rules restrict any use of the information to criminally investigate or prosecute any alcohol or drug abuse patient.[facility]In the event this information is protected by the Federal Confidentiality of Alcohol and Drug Abuse Patient Records regulations: The Federal rules restrict any use of the information to criminally investigate or prosecute any alcohol or drug abuse patient.[facility]In the event this information is protected by the Federal Confidentiality of Alcohol and Drug Abuse Patient Records regulations: The Federal rules restrict any use of the information to criminally investigate or prosecute any alcohol or drug abuse patient.[facility]In the event this information is protected by the Federal Confidentiality of Alcohol and Drug Abuse Patient Records regulations: The Federal rules restrict any use of the information to criminally investigate or prosecute any alcohol or drug abuse patient.[facility]In the event this information is protected by the Federal Confidentiality of Alcohol and Drug Abuse Patient Records regulations: The Federal rules restrict any use of the information to criminally investigate or prosecute any alcohol or drug abuse patient.[facility]In the event this information is protected by the Federal Confidentiality of Alcohol and Drug Abuse Patient Records regulations: The Federal rules restrict any use of the information to criminally investigate or prosecute any alcohol or drug abuse patient.[facility]In the event this information is protected by the Federal Confidentiality of Alcohol and Drug Abuse Patient Records regulations: The Federal rules restrict any use of the information to criminally investigate or prosecute any alcohol or drug abuse patient.[facility] HospitalIn the event this information is protected by the Federal Confidentiality of Alcohol and Drug Abuse Patient Records regulations: The Federal rules restrict any use of the information to criminally investigate or prosecute any alcohol or drug abuse patient.[facility] HospitalIn the event this information is protected by the Federal Confidentiality of Alcohol and Drug Abuse Patient Records regulations: The Federal rules restrict any use of the information to criminally investigate or prosecute any alcohol or drug abuse patient.[facility] HospitalIn the event this information is protected by the Federal Confidentiality of Alcohol and Drug Abuse Patient Records regulations: The Federal rules restrict any use of the information to criminally investigate or prosecute any alcohol or drug abuse patient.[facility] HospitalIn the event this information is protected by the Federal Confidentiality of Alcohol and Drug Abuse Patient Records regulations: The Federal rules restrict any use of the information to criminally investigate or prosecute any alcohol or drug abuse patient.[facility] HospitalIn the event this information is protected by the Federal Confidentiality of Alcohol and Drug Abuse Patient Records regulations: The Federal rules restrict any use of the information to criminally investigate or prosecute any alcohol or drug abuse patient.[facility] HospitalIn the event this information is protected by the Federal Confidentiality of Alcohol and Drug Abuse Patient Records regulations: The Federal rules restrict any use of the information to criminally investigate or prosecute any alcohol or drug abuse patient.[facility] HospitalIn the event this information is protected by the Federal Confidentiality of Alcohol and Drug Abuse Patient Records regulations: The Federal rules restrict any use of the information to criminally investigate or prosecute any alcohol or drug abuse patient.[facility] HospitalIn the event this information is protected by the Federal Confidentiality of Alcohol and Drug Abuse Patient Records regulations: The Federal rules restrict any use of the information to criminally investigate or prosecute any alcohol or drug abuse patient.[facility] HospitalIn the event this information is protected by the Federal Confidentiality of Alcohol and Drug Abuse Patient Records regulations: The Federal rules restrict any use of the information to criminally investigate or prosecute any alcohol or drug abuse patient.[facility] HospitalIn the event this information is protected by the Federal Confidentiality of Alcohol and Drug Abuse Patient Records regulations: The Federal rules restrict any use of the information to criminally investigate or prosecute any alcohol or drug abuse patient.[facility] HospitalIn the event this information is protected by the Federal Confidentiality of Alcohol and Drug Abuse Patient Records regulations: The Federal rules restrict any use of the information to criminally investigate or prosecute any alcohol or drug abuse patient.[facility] HospitalIn the event this information is protected by the Federal Confidentiality of Alcohol and Drug Abuse Patient Records regulations: The Federal rules restrict any use of the information to criminally investigate or prosecute any alcohol or drug abuse patient.[facility] HospitalIn the event this information is protected by the Federal Confidentiality of Alcohol and Drug Abuse Patient Records regulations: The Federal rules restrict any use of the information to criminally investigate or prosecute any alcohol or drug abuse patient.[facility] HospitalIn the event this information is protected by the Federal Confidentiality of Alcohol and Drug Abuse Patient Records regulations: The Federal rules restrict any use of the information to criminally investigate or prosecute any alcohol or drug abuse patient.[facility] HospitalIn the event this information is protected by the Federal Confidentiality of Alcohol and Drug Abuse Patient Records regulations: The Federal rules restrict any use of the information to criminally investigate or prosecute any alcohol or drug abuse patient.[facility] HospitalIn the event this information is protected by the Federal Confidentiality of Alcohol and Drug Abuse Patient Records regulations: The Federal rules restrict any use of the information to criminally investigate or prosecute any alcohol or drug abuse patient.[facility] HospitalIn the event this information is protected by the Federal Confidentiality of Alcohol and Drug Abuse Patient Records regulations: The Federal rules restrict any use of the information to criminally investigate or prosecute any alcohol or drug abuse patient.[facility] HospitalIn the event this information is protected by the Federal Confidentiality of Alcohol and Drug Abuse Patient Records regulations: The Federal rules restrict any use of the information to criminally investigate or prosecute any alcohol or drug abuse patient.[facility] HospitalIn the event this information is protected by the Federal Confidentiality of Alcohol and Drug Abuse Patient Records regulations: The Federal rules restrict any use of the information to criminally investigate or prosecute any alcohol or drug abuse patient.[facility] HospitalIn the event this information is protected by the Federal Confidentiality of Alcohol and Drug Abuse Patient Records regulations: The Federal rules restrict any use of the information to criminally investigate or prosecute any alcohol or drug abuse patient.[facility] HospitalIn the event this information is protected by the Federal Confidentiality of Alcohol and Drug Abuse Patient Records regulations: The Federal rules restrict any use of the information to criminally investigate or prosecute any alcohol or drug abuse patient.[facility] HospitalIn the event this information is protected by the Federal Confidentiality of Alcohol and Drug Abuse Patient Records regulations: The Federal rules restrict any use of the information to criminally investigate or prosecute any alcohol or drug abuse patient.[facility] HospitalIn the event this information is protected by the Federal Confidentiality of Alcohol and Drug Abuse Patient Records regulations: The Federal rules restrict any use of the information to criminally investigate or prosecute any alcohol or drug abuse patient.[facility] HospitalIn the event this information is protected by the Federal Confidentiality of Alcohol and Drug Abuse Patient Records regulations: The Federal rules restrict any use of the information to criminally investigate or prosecute any alcohol or drug abuse patient.[facility] HospitalIn the event this information is protected by the Federal Confidentiality of Alcohol and Drug Abuse Patient Records regulations: The Federal rules restrict any use of the information to criminally investigate or prosecute any alcohol or drug abuse patient.[facility] HospitalIn the event this information is protected by the Federal Confidentiality of Alcohol and Drug Abuse Patient Records regulations: The Federal rules restrict any use of the information to criminally investigate or prosecute any alcohol or drug abuse patient.[facility]In the event this information is protected by the Federal Confidentiality of Alcohol and Drug Abuse Patient Records regulations: The Federal rules restrict any use of the information to criminally investigate or prosecute any alcohol or drug abuse patient.[facility]In the event this information is protected by the Federal Confidentiality of Alcohol and Drug Abuse Patient Records regulations: The Federal rules restrict any use of the information to criminally investigate or prosecute any alcohol or drug abuse patient.[facility]In the event this information is protected by the Federal Confidentiality of Alcohol and Drug Abuse Patient Records regulations: The Federal rules restrict any use of the information to criminally investigate or prosecute any alcohol or drug abuse patient.[facility]In the event this information is protected by the Federal Confidentiality of Alcohol and Drug Abuse Patient Records regulations: The Federal rules restrict any use of the information to criminally investigate or prosecute any alcohol or drug abuse patient.[facility]In the event this information is protected by the Federal Confidentiality of Alcohol and Drug Abuse Patient Records regulations: The Federal rules restrict any use of the information to criminally investigate or prosecute any alcohol or drug abuse patient.[facility]In the event this information is protected by the Federal Confidentiality of Alcohol and Drug Abuse Patient Records regulations: The Federal rules restrict any use of the information to criminally investigate or prosecute any alcohol or drug abuse patient.[facility]In the event this information is protected by the Federal Confidentiality of Alcohol and Drug Abuse Patient Records regulations: The Federal rules restrict any use of the information to criminally investigate or prosecute any alcohol or drug abuse patient.[facility]In the event this information is protected by the Federal Confidentiality of Alcohol and Drug Abuse Patient Records regulations: The Federal rules restrict any use of the information to criminally investigate or prosecute any alcohol or drug abuse patient.[facility]In the event this information is protected by the Federal Confidentiality of Alcohol and Drug Abuse Patient Records regulations: The Federal rules restrict any use of the information to criminally investigate or prosecute any alcohol or drug abuse patient.[facility]In the event this information is protected by the Federal Confidentiality of Alcohol and Drug Abuse Patient Records regulations: The Federal rules restrict any use of the information to criminally investigate or prosecute any alcohol or drug abuse patient.[facility]In the event this information is protected by the Federal Confidentiality of Alcohol and Drug Abuse Patient Records regulations: The Federal rules restrict any use of the information to criminally investigate or prosecute any alcohol or drug abuse patient.[facility]In the event this information is protected by the Federal Confidentiality of Alcohol and Drug Abuse Patient Records regulations: The Federal rules restrict any use of the information to criminally investigate or prosecute any alcohol or drug abuse patient.[facility]In the event this information is protected by the Federal Confidentiality of Alcohol and Drug Abuse Patient Records regulations: The Federal rules restrict any use of the information to criminally investigate or prosecute any alcohol or drug abuse patient.[facility]In the event this information is protected by the Federal Confidentiality of Alcohol and Drug Abuse Patient Records regulations: The Federal rules restrict any use of the information to criminally investigate or prosecute any alcohol or drug abuse patient.[facility]In the event this information is protected by the Federal Confidentiality of Alcohol and Drug Abuse Patient Records regulations: The Federal rules restrict any use of the information to criminally investigate or prosecute any alcohol or drug abuse patient.[facility]In the event this information is protected by the Federal Confidentiality of Alcohol and Drug Abuse Patient Records regulations: The Federal rules restrict any use of the information to criminally investigate or prosecute any alcohol or drug abuse patient.[facility]In the event this information is protected by the Federal Confidentiality of Alcohol and Drug Abuse Patient Records regulations: The Federal rules restrict any use of the information to criminally investigate or prosecute any alcohol or drug abuse patient.[facility] FOR RECORDS PERTAINING TO PATIENTS WHO ARE OR HAVE BEEN ENROLLED IN A CHEMICAL DEPENDENCY/SUBSTANCEABUSE PROGRAM, SOME INFORMATION MAY BE OMITTED. This clinical summary was aggregated from multiple sources. Caution should be exercised in using it in the provision of clinical care. This summary normalizes information from multiple sources, and as a consequence, information in this document may materially change the coding, format and clinical context of patient data. In addition, data may be omitted in some cases. CLINICAL DECISIONS SHOULD BE BASED ON THE PRIMARY CLINICAL RECORDS. [employer] [facility] provides no warranty or guarantee of the accuracy or completeness of information in this document.
--- NOTE | 2024-06-17 10:50 | RAD_ITS ---
INDICATION: fall EXAMINATION/TECHNIQUE: X-RAY - RIGHT XR Hip Unilateral with Pelvis when performed; 2-3 Views COMPARISON: [id number]. FINDINGS: No acute fracture or malalignment. No blastic or lytic lesions. Moderate degenerative changes of the hips.. The soft tissues are unremarkable. RAD/HIP, UNI W/ Pelvis 2-3 Views IMPRESSION: No definite acute fracture, however examination of the pubic symphysis and pubic rami is limited due to overlying bowel gas. If high clinical concern for fracture, consider CT pelvis. Electronically Signed: Benja Pennington MD at 11:38 EDT ,
[2024-06-17 12:08] VITALS: O2SAT 94
[2024-06-17 12:52] VITALS: BP 128/85; PULSE 84; RESP 18; TEMP 36.7; O2SAT 98
[2024-06-17] MEDS: fentaNYL 100 MCG/2 ML Ampul 25 MCG IV (12:54)
[2024-06-17 12:59] LABS: Anion Gap 6 (5-15); BUN 34 mg/dL (7-18); BUN/Creat Ratio 18.5 RATIO (10-20); Calcium,Total 8.9 mg/dL (8.5-10.1); Chloride 112 mmol/L (98-107); Creatinine, Serum 1.84 mg/dL (0.55-1.02); EST Glomerular Filtration Rate 29 mL/min (>60); Est Glom Filt Rate - Afr Amer 35 mL/min (>60); Estimated Creatinine Clearance 23.51 ml/min; Glucose 132 mg/dL (74-106); Potassium 4.1 mmol/L (3.5-5.1); Sodium Level 142 mmol/L (136-145)
[2024-06-17 13:18] LABS: Absolute Lymphocyte Count 1.11 X10^3/uL (0.83-4.51); Absolute Neutrophil Count 5.9 X10^3/uL (2.0-7.7); Basophil# 0.05 X10^3/uL; Basophil% 0.6 % (0-1); Eosinophil# 0.15 X10^3/uL; Eosinophils% 1.9 % (0-5); Hematocrit 36.7 % (37-47); Hemoglobin 10.8 g/dL (12.0-15.0); Lymphocyte # 1.11 X10^3/ul (0.83-4.51); Lymphocyte % 14.3 % (19-41); Mean Corp Hgb Conc 29.4 g/dL (32-36); Mean Corpuscular Hgb 24.1 pg (27.0-32.0); Mean Corpuscular Volume 81.7 fL (81-99); Mean Platelet Vol. 10.2 fl (6.2-12.0); Monocyte# 0.53 X10^3/uL; Monocyte% 6.8 % (0-10); NRBC Flagged by Analyzer 0 % (0-5); Neutrophil # 5.88 X10^3/uL (2.7-7.7); POSITIVE COUNT YES; Platelet Count 323 K/mm3 (150-450); RBC Distribution Width CV 16.2 % (11.6-14.6); Red Blood Count 4.49 M/mm3 (4.2-5.4); White Blood Count 7.8 K/mm3 (4.4-11.0)
--- OUTSIDE RECORDS SUMMARY | 2024-06-17 13:55 | XMS RPT_ITS | CCD ---
Author Organization [facility] Care Team Providers Care Sole Cementer Name Role Phone Bj, Arlette S. P. Unavailable Aramis Cheng Unavailable Felecia Shultz Unavailable Lenin Bhatt Unavailable KANAA N, MAURICIO Admitting Unavailable VANCE N, MAURICIO Attending Unavailable Lenin Bhatt Primary Care Unavailable Bj, Arlette S. P. Unavailable Aramis Cheng Unavailable [phone] Felecia Shultz Unavailable Lenin Bhatt Primary Care Provider Bj, Arlette S. P. Unavailable Bj SIMON Arlette S. P. Unavailable Aramis Cheng MD Unavailable Felecia Shultz MD Unavailable [phone] Lenin Bhatt MD Primary Care Provider Lenin Bhatt MD Primary Care Provider Lenin Bhatt MD Primary Care Provider Lenin Bhatt MD Primary Care Provider Bj SIMON, Arlette S. P. Unavailable Aramis Cheng MD Unavailable Felecia Shultz MD Unavailable Lenin Bhatt MD Primary Care Provider LENIN BHATT Primary Care Unavailable ARAMIS CHENG Attending Unavailab Lenin Porras MD Primary Care Provider [phone] LENIN BHATT Referring Unavailable JAMIE, LENIN Adame [...] Referring Unavailable LENIN BHATT Primary Care Unavailable LENNI BHATT Primary Care Unavailable ZACHARIAH GONZALES JR [...] th daily at bedtime for 30 days. [id number] 200 actuat albuterol 0.09 mg/actuat metered dose [...] on above: Take 1 capsule by mo [facility] three times daily for 5 days. citalopram [...] once daily. Multivitamin daily - chelle tab. [facility] # [id number] 90 tablet 3 06/03/2022 08/03/2022 Discontinued Start: 06-03-2022 take 1 tablet by sal th once daily multivitamin tablet Take 1 tablet by mouth once daily. Multivitamin daily - chelle tab. [facility] # [id number] 90 tablet 3 06/03/2022 Active Start: 07-14-2021 End: 06-02-2022 take 1 tablet by mouth once daily multivitamin tablet Take 1 tablet by mouth once daily. Multivitamin daily - chelle tab. [facility] # [id number] 90 tablet 3 07/14/2021 06/02/2022 Discontinued Start: 07-14-2021 take 1 tablet by sal th once daily multivitamin tablet Take 1 tablet by mouth once daily. Multivitamin daily - chelle tab. [facility] # [id number] 90 tablet 3 07/14/2021 Active Comment on above: Take 1 tablet by sal th once daily. Multivitamin daily - chelle tab. [facility] # [id number] Take 1 tablet by sal th once [...] on above: Take 1 capsule by mo [facility] twice daily with meals for 7 days. [...] Test Name Value Interpretation Reference Range Facility [facility] 06-12-2024 [facility] Telephone (INTMWS) DALIA LOPEZ ([id number]) 1950 F Date Time Provider Department 06/12/24 [...] an ambulance to have her taken to [facility] ER for evaluation/treatment. Appointment for [...] chronic bronchi*06/10/2023 (more content not included)... Normal [facility] 04-13-2024 CNP[facility] Telephone (UROLAE) DALIA LOPEZ ([id number]) 1950 F Date Time Provider Department 04/13/24 ZACHARIAH GONZALES JR During your visit today, we recorded the following information about you: Edmund Weeks MA 04/13/2024 8:32 AM Signed Message Received: Yesterday Zachariah Gonzales Jr., MD Mad[facility] Exchange Clinical Pool Ultrasound is stable Edmund Weeks MA 04/13/2024 8:32 AM Signed Spoke with patient and advised of results. Edmund Weeks MA Allergies As of Date: 04/13/2024 (No Known Allergies) Date Reviewed: 03/14/2024 Reviewed by: Moira Hearn, WASHATERIA ATTENDANT.BOOTMAKER HAND - Fully Assessed Reason for Visit: Results [...] of cerebrovascular accid*07/20/2016 PVD (peripheral vascular disease) ([facility]) [I73.9] 07/20/2016 Acquired hypothyroidism [E03.9] 07/20/2016 Hyperlipidemia [...] EDMUND WEEKS on 04/13/24 Normal [facility] Basic metabolic 2000 panelon 04-10-2024 Anion gap [Moles/Vol] 7 mmol/L Low - [facility] Comment on above: Order Comment: Speci men Type: BLOOD SPECIMEN Ordering Facility: [facility] Address: [address] [place] [address] Performed By: #### 2 4321-2 #### [id number] [address] [place] [address] [place] Calcium [Mass/Vol] 9.1 mg/dL Normal 8.5-10.2 [facility] Comment on above: Order Comment: Speci men Type: BLOOD SPECIMEN Ordering Facility: [facility] Address: [address] [place] [address] Performed By: #### 2 4321-2 #### [facility] CLIA [id number] [address] [place] [address] [place] Chloride [Moles/Vol] 104 mmol/L Normal 98-107 [facility] Comment on above: Order Comment: Speci men Type: BLOOD SPECIMEN Ordering Facility: [facility] Address: [address] [place] [address] Performed By: #### 2 4321-2 #### [facility] CLIA [id number] [address] [place] [address] [place] CO2 [Moles/Vol] 27 mmol/L Normal 22-30 [facility] Comment on above: Order Comment: Speci men Type: BLOOD SPECIMEN Ordering Facility: [facility] Address: [address] [place] [address] Performed By: #### 2 4321-2 #### [facility] CLIA [id number] [address] [place] [address] [place] Creatinine [Mass/Vol] 0.84 mg/dL Normal 0.58-0.96 [facility] Comment on above: Order Comment: Speci men Type: BLOOD SPECIMEN Ordering Facility: [facility] Address: [address] [place] [address] Performed By: #### 2 4321-2 #### [facility] CLIA [id number] [address] [place] [address] [place] Creatinine and Glomerular filtration rate.predicted panel (S/P/Bld) 73 mL/min/1.73m??? Normal >=60 [facility] Comment on above: Order Comment: Speci men Type: BLOOD SPECIMEN Ordering Facility: [facility] Address: [address] [place] [address] Result Comment: Grace mated Glomerular Filtration Rate [...] GFR. Performed By: #### 2 4321-2 #### [facility] [id number] [address] [place] [address] [place] Glucose [Mass/Vol] 147 mg/dL High 74-99 [facility] Comment on above: Order Comment: Chelly burks Type: BLOOD SPECIMEN Ordering Facility: [facility] Address: [address] [place] [address] Result Comment: The [place] Diabetes Association (ADA) provides guidance for cutoff [...] Standards of Medical Care in Diabetes 2016, [place] Diabetes Association. Diabetes Care. 2016.39(Suppl 1). Performed By: #### 2 4321-2 #### [facility] [id number] [address] [place] [address] [place] Potassium [Moles/Vol] 4.2 mmol/L Normal 3.7-5.1 [facility] Comment on above: Order Comment: Chelly burks Type: BLOOD SPECIMEN Ordering Facility: [facility] Address: [address] [place], [place] [address] Performed By: #### 2 4321-2 #### [facility] CLIA [id number] [address] [place] [address] [place] Sodium [Moles/Vol] 138 mmol/L Normal 136-144 [facility] Comment on above: Order Comment: Speci men Type: BLOOD SPECIMEN Ordering Facility: [facility] Address: [address] [place] [address] Performed By: #### 2 4321-2 #### [facility] CLIA [id number] [address] [place] [address] [place] Urea nitrogen [Mass/Vol] 14 mg/dL Normal 7-21 [facility] Comment on above: Order Comment: Speci men Type: BLOOD SPECIMEN Ordering Facility: [facility] Address: [address] [place] [address] Performed By: #### 2 4321-2 #### [facility] CLIA [id number] [address] [place] [address] [place] CBC panel Auto (Bld)on 04-10 Erythrocyte distribution width (RBC) [Ratio] 15.3 % High 11.5-15.0 [facility] Comment on above: Order Comment: Speci men Type: BLOOD SPECIMEN Ordering Facility: [facility] Address: [address] [place] [address] Performed By: #### 5 8410-2 #### [facility] CLIA [id number] [address] [place] [address] [place] Hematocrit (Bld) [Volume fraction] 31.0 % Low 36.0-46.0 [facility] Comment on above: Order Comment: Speci men Type: BLOOD SPECIMEN Ordering Facility: [facility] Address: [address] [place] [address] Performed By: #### 5 8410-2 #### [facility] CLIA [id number] [address] [place] [address] [place] Hemoglobin (Bld) [Mass/Vol] 9.4 g/dL Low 11.5-15.5 [facility] Comment on above: Order Comment: Speci men Type: BLOOD SPECIMEN Ordering Facility: [facility] Address: [address] [place] [address] Performed By: #### 5 8410-2 #### [facility] CLIA [id number] [address] [place] [address] [place] MCH (RBC) [Entitic mass] 26.5 pg Normal 26.0-34.0 [facility] Comment on above: Order Comment: Speci men Type: BLOOD SPECIMEN Ordering Facility: [facility] Address: [address] [place] [address] Performed By: #### 5 8410-2 #### [facility] CLIA [id number] [address] [place] [address] [place] MCHC (RBC) [Mass/Vol] 30.3 g/dL Low 30.5-36.0 [facility] Comment on above: Order Comment: Speci men Type: BLOOD SPECIMEN Ordering Facility: [facility] Address: [address] [place] [address] Performed By: #### 5 8410-2 #### [facility] [id number] [address] [place] [address] [place] MCV (RBC) [Entitic vol] 87.3 fL Normal 80.0-100.0 [facility] Comment on above: Order Comment: Speci men Type: BLOOD SPECIMEN Ordering Facility: [facility] Address: [address] [place] [address] Performed By: #### 5 8410-2 #### [facility] CLIA [id number] [address] [place] [address] [place] Nucleated RBC (Bld) [#/Vol] 10*3/uL Normal <0.01 [facility] Comment on above: Order Comment: Speci men Type: BLOOD SPECIMEN Ordering Facility: [facility] Address: [address] [place] [address] Performed By: #### 5 8410-2 #### [facility] CLIA [id number] [address] [place] [address] [place] Platelet mean volume (Bld) [Entitic vol] 9.5 fL Normal 9.0-12.7 [facility] Comment on above: Order Comment: Speci men Type: BLOOD SPECIMEN Ordering Facility: [facility] Address: [address] [place] [address] Performed By: #### 5 8410-2 #### [facility] CLIA [id number] [address] [place] [address] [place] Platelets (Bld) [#/Vol] 331 10*3/uL Normal 150-400 [facility] Comment on above: Order Comment: Speci men Type: BLOOD SPECIMEN Ordering Facility: [facility] Address: [address] [place] [address] Performed By: #### 5 8410-2 #### [facility] CLIA [id number] [address] [place] [address] [place] RBC (Bld) [#/Vol] 3.55 10*6/uL Low 3.90-5.[address] [facility] Comment on above: Order Comment: Speci men Type: BLOOD SPECIMEN Ordering Facility: [facility] Address: [address] [place] [address] Performed By: #### 5 8410-2 #### [facility] CLIA [id number] [address] [place] [address] [place] WBC (Bld) [#/Vol] 6.73 10*3/uL Normal 3.70-11.[address] [facility] Comment on above: Order Comment: Speci men Type: BLOOD SPECIMEN Ordering Facility: [facility] Address: [address] [place] [address] Performed By: #### 5 8410-2 #### [facility] CLIA [id number] [address] [place] [address] [place] Ferritin SerPl-mCncon 2023 Ferritin [Mass/Vol] 18.4 ng/mL Normal 14.7-205.[address] [facility] Comment on above: Order Comment: Speci men Type: BLOOD SPECIMEN Ordering Facility: [facility] Address: [address] [place] [address] Performed By: #### 3 0471-7 #### [facility] CLIA [id number] [address] [place] [address] [place] Lipid 1996 panelon Cholesterol [Mass/Vol] 94 mg/dL Normal <200 [facility] Comment on above: Order Comment: Speci men Type: BLOOD SPECIMEN Ordering Facility: [facility] Address: [address] [place] [address] Result Comment: <200 mg/dL, Desirable 200-239 mg/dL, Borderline high >239 mg/dL, High Performed By: #### 3 0471-7 #### [facility] CLIA [id number] [address] [place] [address] [place] Cholesterol in HDL [Mass/Vol] 43 mg/dL Normal >39 [facility] Comment on above: Order Comment: Speci men Type: BLOOD SPECIMEN Ordering Facility: [facility] Address: [address] [place] [address] Result Comment: 40-5 9 mg/dL, Acceptable >59 mg/dL, High: Negative risk factor for coronary heart disease <40 mg/dL, Low: Positive risk factor for coronary heart disease Performed By: #### 3 0471-7 #### [facility] CLIA [id number] [address] [place] [address] [place] Cholesterol in LDL [Mass/Vol] 39 mg/dL Normal <100 [facility] Comment on above: Order Comment: Speci men Type: BLOOD SPECIMEN Ordering Facility: [facility] Address: [address] [place] [address] Result Comment: <100 mg/dL, Optimal 100-129 mg/dL, Near optimal/above optimal 130-159 mg/dL, Borderline high 160-189 mg/dL, High >189 mg/dL, Very high Secondary prevention optimal LDL Cholesterol levels are recommended to be < 70 mg/dL Performed By: #### 3 0471-7 #### [facility] CLIA [id number] [address] [place] [address] [place] Cholesterol in LDL/Cholesterol in HDL [Mass ratio] 0.91 {ratio} Normal <2.54 [facility] Comment on above: Order Comment: Chelly men Type: BLOOD SPECIMEN Ordering Facility: [facility] Address: [address] [place] [address] Result Comment: Refe rence: 1. National Cholesterol Education Program ATP III Guideline At-A-Glance Quick Desk Reference: National Heart, Lung, and Blood [place]. National Institutes of Health. 2001: NIH Publication No. 01-3305. 2. An International Atherosclerosis Society position paper: global recommendations for the management of dyslipidemia: executive summary, Atherosclerosis. 2014: 232(2):410-413. Performed By: #### 3 0471-7 #### [facility] CLIA [id number] [address] [place] [address] [place] Cholesterol in VLDL [Mass/Vol] 12 mg/dL Normal <30 [facility] Comment on above: Order Comment: Chelly men Type: BLOOD SPECIMEN Ordering Facility: [facility] Address: [address] [place] [address] Performed By: #### 3 0471-7 #### [facility] CLIA [id number] [address] [place] [address] [place] Cholesterol non HDL [Mass/Vol] 51 mg/dL Normal <130 [facility] Comment on above: Order Comment: Chelly burks Type: BLOOD SPECIMEN Ordering Facility: [facility] Address: [address] [place] [address] Result Comment: <130 mg/dL, Optimal 130-159 mg/dL, Near optimal/above optimal 160-189 mg/dL, Borderline high 190-219 mg/dL, High >219 mg/dL, Very high Secondary prevention optimal non HDL Cholesterol levels are recommended to be <100 mg/dL Performed By: #### 3 0471-7 #### [facility] CLIA [id number] [address] [place] [address] [place] Cholesterol.total/Ch olesterol in HDL [Mass ratio] 2.19 {ratio} Normal <5.10 [facility] Comment on above: Order Comment: Speci men Type: BLOOD SPECIMEN Ordering Facility: [facility] Address: [address] [place] [address] Performed By: #### 3 0471-7 #### [facility] CLIA [id number] [address] [place] [address] [place] [facility] FASTING TIME 10 hrs Normal [facility] Comment on above: Order Comment: Speci men Type: BLOOD SPECIMEN Ordering Facility: [facility] Address: [address] [place] [address] Performed By: #### 3 0471-7 #### [facility] CLIA [id number] [address] [place] [address] [place] Triglyceride [Mass/Vol] 59 mg/dL Normal <150 [facility] Comment on above: Order Comment: Speci men Type: BLOOD SPECIMEN Ordering Facility: [facility] Address: [address] [place] [address] Result Comment: <150 mg/dL, Normal 150-199 mg/dL, Borderline high 200-499 mg/dL, High >499 mg/dL, Very high Performed By: #### 3 0471-7 #### [facility] CLIA [id number] [address] [place] [address] [place] US KIDNEY/BLADDERon 04-10-20 [...] mass Stable left renal mass No hydronephrosis. Plate Drying Machine Tender: [facility] Transcribe Date/Time: Apr 12 2024 10:25A Dictated by : HETAL TATE MD This examination was interpreted and the report reviewed and electronically signed by: HETAL TATE MD on Apr 12 2024 11:01AM EST [id number] N Normal [facility] Vit B12 SerPl-mCncon 024 Cobalamin (Vitamin B12) [Mass/Vol] 422 pg/mL Normal 232-1245 [facility] Comment on above: Order Comment: Speci men Type: BLOOD SPECIMEN Ordering Facility: [facility] Address: [address] [place] [address] Performed By: #### 3 0471-7 #### [facility] CLIA [id number] [address] [place], [place] [address] [place] [address] [place] levETIRAcetam SerPl-mCncon 0 04-10-2024 levETIRAcetam [Mass/Vol] 18.3 ug/mL Normal 12.0-46.0 [facility] Comment on above: Order Comment: Chelly burks Type: BLOOD SPECIMEN Ordering Facility: [facility] Address: [address] [place] [address] Result Comment: This test is not suitable [...] developed and its performance characteristics determined by [facility] Path[facility] and Laboratory Medicine [place] ([facility]). It has not been cleared or approved by the FDA. [facility] is regulated under CLIA as qualified to perform high-complexity testing. This test is used for clinical purposes. It should not be regarded as investigational or for research. Performed By: #### 3 0471-7 #### [facility] CLIA [id number] [address] [place] [address] [place] [address] [place] HbA1c (Bld)on 03-15-2024 Average glucose Estimated from glycated hemoglobin (Bld) [Mass/Vol] 143 mg/dL [facility] Comment on above: eAG: (Estimated aver age glucose) is a calculated value from HgbA1c and is phone representative of the average blood glucose level in the last 2-3 month period. HbA1c (Bld) [Mass fraction] 6.6 % High 4.3 - 5.6 % [facility] Comment on above: [place] Diabetes As sociation guidelines indicate that patients with HgbA1c in the range 5.7-6.4% are at increased risk for development of diabetes, and intervention by lifestyle modification may be beneficial. HgbA1c greater or equal to 6.5% is considered diagnostic of diabetes. Interpretation and review of laboratory results Abnormal [facility] CBC panel Auto (Bld)on 03-14 Erythrocyte distribution width (RBC) [Ratio] 15.2 % High 11.5-15.0 [facility] Comment on above: Order Comment: Chelly burks Type: BLOOD SPECIMEN Ordering Facility: [facility] Address: [address] [place] [address] Performed By: #### 3 0471-7 #### [facility] CLIA [id number] [address] [place] [address] [place] Hematocrit (Bld) [Volume fraction] 31.7 % Low 36.0-46.0 [facility] Comment on above: Order Comment: Speci men Type: BLOOD SPECIMEN Ordering Facility: [facility] Address: [address] [place] [address] Performed By: #### 3 0471-7 #### [facility] CLIA [id number] [address] [place] [address] [place] Hemoglobin (Bld) [Mass/Vol] 9.5 g/dL Low 11.5-15.5 [facility] Comment on above: Order Comment: Speci men Type: BLOOD SPECIMEN Ordering Facility: [facility] Address: [address] [place] [address] Performed By: #### 3 0471-7 #### [facility] CLIA [id number] [address] [place] [address] [place] MCH (RBC) [Entitic mass] 27.0 pg Normal 26.0-34.0 [facility] Comment on above: Order Comment: Speci men Type: BLOOD SPECIMEN Ordering Facility: [facility] Address: [address] [place] [address] Performed By: #### 3 0471-7 #### [facility] CLIA [id number] [address] [place] [address] [place] MCHC (RBC) [Mass/Vol] 30.0 g/dL Low 30.5-36.0 [facility] Comment on above: Order Comment: Speci men Type: BLOOD SPECIMEN Ordering Facility: [facility] Address: [address] [place] [address] Performed By: #### 3 0471-7 #### [facility] CLIA [id number] [address] [place] [address] [place] MCV (RBC) [Entitic vol] 90.1 fL Normal 80.0-100.0 [facility] Comment on above: Order Comment: Speci men Type: BLOOD SPECIMEN Ordering Facility: [facility] Address: [address] [place] [address] Performed By: #### 3 0471-7 #### [facility] CLIA [id number] [address] [place] [address] [place] Nucleated RBC (Bld) [#/Vol] 10*3/uL Normal <0.01 [facility] Comment on above: Order Comment: Speci men Type: BLOOD SPECIMEN Ordering Facility: [facility] Address: [address] [place] [address] Performed By: #### 3 0471-7 #### [facility] CLIA [id number] [address] [place] [address] [place] Platelet mean volume (Bld) [Entitic vol] 10.7 fL Normal 9.0-12.7 [facility] Comment on above: Order Comment: Speci men Type: BLOOD SPECIMEN Ordering Facility: [facility] Address: [address] [place] [address] Performed By: #### 3 0471-7 #### [facility] CLIA [id number] [address] [place] [address] [place] Platelets (Bld) [#/Vol] 368 10*3/uL Normal 150-400 [facility] Comment on above: Order Comment: Speci men Type: BLOOD SPECIMEN Ordering Facility: [facility] Address: [address] [place] [address] Performed By: #### 3 0471-7 #### [facility] CLIA [id number] [address] [place] [address] [place] RBC (Bld) [#/Vol] 3.52 10*6/uL Low 3.90-5.[address] [facility] Comment on above: Order Comment: Speci men Type: BLOOD SPECIMEN Ordering Facility: [facility] Address: [address] [place] [address] Performed By: #### 3 0471-7 #### [facility] CLIA [id number] [address] [place] [address] [place] WBC (Bld) [#/Vol] 7.75 10*3/uL Normal 3.70-11.[address] [facility] Comment on above: Order Comment: Speci men Type: BLOOD SPECIMEN Ordering Facility: [facility] Address: [address] [place] [address] Performed By: #### 3 0471-7 #### [facility] CLIA [id number] [address] [place] [address] [place] CNOVon 03-14-2024 CNOV Office Visit (INTMWS ) DALIA OLPEZ ([id number]) 1950 F Date Time Provider Department 03/14/24 2:20 PM MOIRA HEARN INTMWS During your visit today, we recorded the following information about you: Pulse Respiration Blood pressure Weight 90/minute 18/minute 98/56 68 kg Height 1.595 m Moira Hearn, WASHATERIA ATTENDANT.BOOTMAKER HAND 03/15/2024 7:25 AM Signed Dalia Mcmahon John [...] as PCP - General Outside specialists seen: admiralty lawyer- Dr. Jonathan Aguila, neurology- Dr. Aramis Cheng [...] Moira Hearn, (more content not included)... Normal [facility] Comprehensive metabolic 2000 panelon 03-14-2024 Albumin [Mass/Vol] 3.8 g/dL Low 3.9-4.9 [facility] Comment on above: Order Comment: Speci men Type: BLOOD SPECIMEN Ordering Facility: [facility] Address: [address] [place] [address] Performed By: #### 3 0471-7 #### [facility] CLIA [id number] [address] [place] [address] [place] [address] [place] ALP [Catalytic activity/Vol] 60 U/L Normal 34-123 [facility] Comment on above: Order Comment: Speci men Type: BLOOD SPECIMEN Ordering Facility: [facility] Address: [address] [place] [address] Performed By: #### 3 0471-7 #### [facility] CLIA [id number] [address] [place] [address] [place] ALT [Catalytic activity/Vol] 14 U/L Normal 7-38 [facility] Comment on above: Order Comment: Speci men Type: BLOOD SPECIMEN Ordering Facility: [facility] Address: [address] [place] [address] Performed By: #### 3 0471-7 #### [facility] CLIA [id number] [address] [place] [address] [place] Anion gap [Moles/Vol] 13 mmol/L Normal 8-15 [facility] Comment on above: Order Comment: Speci men Type: BLOOD SPECIMEN Ordering Facility: [facility] Address: [address] [place] [address] Performed By: #### 3 0471-7 #### [facility] CLIA [id number] [address] [place] [address] [place] AST [Catalytic activity/Vol] 19 U/L Normal 13-35 [facility] Comment on above: Order Comment: Speci men Type: BLOOD SPECIMEN Ordering Facility: [facility] Address: [address] [place] [address] Performed By: #### 3 0471-7 #### [facility] CLIA [id number] [address] [place] [address] [place] Bilirubin [Mass/Vol] 0.2 mg/dL Normal 0.2-1.3 [facility] Comment on above: Order Comment: Speci men Type: BLOOD SPECIMEN Ordering Facility: [facility] Address: [address] [place] [address] Performed By: #### 3 0471-7 #### [facility] CLIA [id number] [address] [place] [address] [place] Calcium [Mass/Vol] 10.5 mg/dL High 8.5-10.2 [facility] Comment on above: Order Comment: Speci men Type: BLOOD SPECIMEN Ordering Facility: [facility] Address: [address] [place] [address] Performed By: #### 3 0471-7 #### [facility] CLIA [id number] [address] [place] [address] [place] Chloride [Moles/Vol] 101 mmol/L Normal 98-107 [facility] Comment on above: Order Comment: Speci men Type: BLOOD SPECIMEN Ordering Facility: [facility] Address: [address] [place] [address] Performed By: #### 3 0471-7 #### [facility] CLIA [id number] [address] [place] [address] [place] CO2 [Moles/Vol] 26 mmol/L Normal 22-30 [facility] Comment on above: Order Comment: Speci men Type: BLOOD SPECIMEN Ordering Facility: [facility] Address: [address] [place] [address] Performed By: #### 3 0471-7 #### [facility] CLIA [id number] [address] [place] [address] [place] Creatinine [Mass/Vol] 1.63 mg/dL High 0.58-0.96 [facility] Comment on above: Order Comment: Speci men Type: BLOOD SPECIMEN Ordering Facility: [facility] Address: [address] [place] [address] Performed By: #### 3 0471-7 #### [facility] CLIA [id number] [address] [place] [address] [place] Creatinine and Glomerular filtration rate.predicted panel (S/P/Bld) 33 mL/min/1.73m??? Low >=60 [facility] Comment on above: Order Comment: Chelly burks Type: BLOOD SPECIMEN Ordering Facility: [facility] Address: [address] [place] [address] Result Comment: Grace mated Glomerular Filtration Rate [...] GFR. Performed By: #### 3 0471-7 #### [facility] CLIA [id number] [address] [place] [address] [place] Glucose [Mass/Vol] 122 mg/dL High 74-99 [facility] Comment on above: Order Comment: Chelly bukrs Type: BLOOD SPECIMEN Ordering Facility: [facility] Address: [address] [place] [address] Result Comment: The [place] Diabetes Association (ADA) provides guidance for cutoff [...] Standards of Medical Care in Diabetes 2016, [place] Diabetes Association. Diabetes Care. 2016.39(Suppl 1). Performed By: #### 3 0471-7 #### [facility] CLIA [id number] [address] [place] [address] [place] Potassium [Moles/Vol] 5.4 mmol/L High 3.7-5.1 [facility] Comment on above: Order Comment: Chelly burks Type: BLOOD SPECIMEN Ordering Facility: [facility] Address: [address] [place] [address] Performed By: #### 3 0471-7 #### [facility] CLIA [id number] [address] [place] [address] [place] Protein [Mass/Vol] 7.1 g/dL Normal 6.3-8.0 [facility] Comment on above: Order Comment: Speci men Type: BLOOD SPECIMEN Ordering Facility: [facility] Address: [address] [place] [address] Performed By: #### 3 0471-7 #### [facility] CLIA [id number] [address] [place] [address] [place] Sodium [Moles/Vol] 140 mmol/L Normal 136-144 [facility] Comment on above: Order Comment: Speci men Type: BLOOD SPECIMEN Ordering Facility: [facility] Address: [address] [place] [address] Performed By: #### 3 0471-7 #### [facility] CLIA [id number] [address] [place] [address] [place] Urea nitrogen [Mass/Vol] 46 mg/dL High 7-21 [facility] Comment on above: Order Comment: Speci men Type: BLOOD SPECIMEN Ordering Facility: [facility] Address: [address] [place] [address] Performed By: #### 3 0471-7 #### [facility] CLIA [id number] [address] [place] [address] [place] HbA1c (Bld)on 03-14-2024 Average glucose Estimated from glycated hemoglobin (Bld) [Mass/Vol] 143 mg/dL Normal [facility] Comment on above: Order Comment: Speci men Type: BLOOD SPECIMEN Ordering Facility: [facility] Address: [address] [place] [address] Result Comment: eAG: (Estimated average glucose) is a calculated value from HgbA1c and is phone representative of the average blood glucose level in the last 2-3 month period. Performed By: #### 5 5454-3 #### [facility] CLIA [id number] [address] [place] [address] [place] HbA1c (Bld) [Mass fraction] 6.6 % High 4.3-5.6 [facility] Comment on above: Order Comment: hCelly burks Type: BLOOD SPECIMEN Ordering Facility: [facility] Address: [address] [place] [address] Result Comment: Amer [place] Diabetes Association guidelines indicate that patients with HgbA1c in the range 5.7-6.4% are at increased risk for development of diabetes, and intervention by lifestyle modification may be beneficial. HgbA1c greater or equal to 6.5% is considered diagnostic of diabetes. Performed By: #### 5 5454-3 #### [facility] CLIA [id number] [address] [place] [address] [place] LIPID PANEL, NONFASTINGon Cholesterol [Mass/Vol] 111 mg/dL Normal <200 [facility] Comment on above: Order Comment: Chelly burks Type: BLOOD SPECIMEN Ordering Facility: [facility] Address: [address] [place] [address] Result Comment: <200 mg/dL, Desirable 200-239 mg/dL, Borderline high >239 mg/dL, High Performed By: #### 5 8410-2 #### [id number] [address] [place] [address] [place] HDL CHOLESTEROL, NF 42 mg/dL Normal >[address] [facility] Comment on above: Order Comment: Chelly burks Type: BLOOD SPECIMEN Ordering Facility: [facility] Address: [address] [place] [address] Result Comment: 40-5 9 mg/dL, Acceptable >59 mg/dL, High: Negative risk factor for coronary heart disease <40 mg/dL, Low: Positive risk factor for coronary heart disease Performed By: #### 5 8410-2 #### [facility] CLIA [id number] [address] [place] [address] [place] LDL CHOLESTEROL, NF 50 mg/dL Normal <[address] [facility] Comment on above: Order Comment: Chelly burks Type: BLOOD SPECIMEN Ordering Facility: [facility] Address: [address] [place] [address] Result Comment: <100 mg/dL, Optimal 100-129 mg/dL, Near optimal/above optimal 130-159 mg/dL, Borderline high 160-189 mg/dL, High >189 mg/dL, Very high Secondary prevention optimal LDL Cholesterol levels are recommended to be < 70 mg/dL Performed By: #### 5 8410-2 #### [facility] CLIA [id number] [address] [place] [address] [place] LDL/HDL RATIO, NF 1.19 mg/dL Normal <2.54 [facility] Comment on above: Order Comment: Chelly burks Type: BLOOD SPECIMEN Ordering Facility: [facility] Address: [address] [place] [address] Result Comment: Refjack grovece: 1. National Cholesterol Education Program ATP III Guideline At-A-Glance Quick Desk Reference: National Heart, Lung, and Blood [place]. National Institutes of Health. 2001: NIH Publication No. 01-3305. 2. An International Atherosclerosis Society position paper: global recommendations for the management of dyslipidemia: executive summary, Atherosclerosis. 2014: 232(2):410-413. Performed By: #### 5 8410-2 #### [facility] CLIA [id number] [address] [place] [address] [place] NON HDL CHOL, NF 69 mg/dL Normal <130 [facility] Comment on above: Order Comment: Chelly burks Type: BLOOD SPECIMEN Ordering Facility: [facility] Address: [address] [place] [address] Result Comment: <130 mg/dL, Optimal 130-159 mg/dL, Near optimal/above optimal 160-189 mg/dL, Borderline high 190-219 mg/dL, High >219 mg/dL, Very high Secondary prevention optimal non HDL Cholesterol levels are recommended to be <100 mg/dL Performed By: #### 5 8410-2 #### [facility] CLIA [id number] [address] [place] [address] [place] T CHOL/HDL RATIO NF 2.64 mg/dL Normal <5.[address] [facility] Comment on above: Order Comment: Speci men Type: BLOOD SPECIMEN Ordering Facility: [facility] Address: [address] [place] [address] Performed By: #### 5 8410-2 #### [facility] CLIA [id number] [address] [place] [address] [place] TRIGLYCERIDES, NF 93 mg/dL Normal <150 [facility] Comment on above: Order Comment: Speci men Type: BLOOD SPECIMEN Ordering Facility: [facility] Address: [address] [place] [address] Result Comment: <150 mg/dL, Normal 150-199 mg/dL, Borderline high 200-499 mg/dL, High >499 mg/dL, Very high Performed By: #### 5 8410-2 #### [id number] [address] [place] [address] [place] VLDL CHOLESTEROL, NF 19 mg/dL Normal <30 [facility] Comment on above: Order Comment: Speci men Type: BLOOD SPECIMEN Ordering Facility: [facility] Address: [address] [place] [address] Performed By: #### 5 8410-2 #### [facility] CLIA [id number] [address] [place] [address] [place] TSH SerPl-aCncon 03-14-2024 TSH Qn 3.590 m[IU]/L Normal 0.270-4.200 [facility] Comment on above: Order Comment: Speci men Type: BLOOD SPECIMEN Ordering Facility: [facility] Address: [address] [place] [address] Performed By: #### 5 8410-2 #### [facility] CLIA [id number] [address] [place] [id number] [place] levETIRAcetam SerPl-mCncon 0 03-14-2024 levETIRAcetam [Mass/Vol] 57.3 ug/mL High 12.0-46.0 [facility] Comment on above: Order Comment: Speci men Type: BLOOD SPECIMEN Ordering Facility: [facility] Address: [address] [place] [address] Result Comment: This test is not suitable [...] developed and its performance characteristics determined by [facility]'s [facility] Pathology and Laboratory Medicine [place] ([facility]). It has not been cleared or approved by the FDA. [facility] is regulated under CLIA as qualified to perform high-complexity testing. This test is used for clinical purposes. It should not be regarded as investigational or for research. Performed By: #### 3 0471-7 #### [facility] CLIA [id number] [address] [place], [place] [address] [place] CNOVon 12-09-2023 CNOV Office Visit (INTMWS ) DALIA LOPEZ ([id number]) 1950 F Date Time Provider Department 12/09/23 9:00 AM LENIN BHATT INTMWS During your visit today, we [...] As Late Effect of Cerebrovascular Accident (Cva) ([facility]) Pvd (Peripheral Vascular Disease) ([facility]) Acquired Hypothyroidism Hyperlipidemia Anxiety Associated With Depression Impaired Fasting Glucose Mass of Left Kidney Urinary Incontinence Bronchospasm Acute On Chronic Respiratory Failure With Hypoxemia (Hcc) Ischemic Cardiomyopathy Chronic Systolic (Congestive) Heart Failure (Hcc) Current Moderate Episode of Major Depressive Disorder ([facility]) Sacral Decubitus Ulcer, Stage II (Hcc) Kidney Insufficiency Bacteriuria With Pyuria Arteriosclerosis of Coronary Artery Closed Head Injury History of Stroke Lbbb (Left Bundle Branch Block) Leukopenia Recurrent Falls Seizure (Hcc) Covid-19 Localization-Related Epilepsy ([facility]) Open Wound of Hand Chronic Bronchitis, Unspecified Chronic Bronchitis Type ([facility]) Social History Tobacco Use Smoking status: Former [...] No wheezi (more content not included)... 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 Aramis Nielson, Neurology Seizure disorder ([facility]) 03/2013 Shortness of breath Stroke (cerebrum) ([facility]) 2015 recurrent Stroke ([facility]) 04/22/2013 aphasia,left facial droop PAST SURGICAL HISTORY [...] 97% wit (more content not included)... Normal [facility] [id number] 09-29-2023 ECG01 Ventricular Rate : 8 4 BPM Atrial Rate : 84 BPM P-R Interval : 160 ms QRS Duration : 116 ms Q-T Interval : 406 ms QTC Calculation(Bazett) : 479 ms Calculated P [place] : 108 degrees Calculated R [place] : -27 degrees Calculated T [place] : 44 degrees NORMAL SINUS RHYTHM ANTERIOR MYOCARDIAL INFARCTION , AGE UNDETERMINED ABNORMAL ECG WHEN COMPARED WITH ECG OF 10-JUN-2022 12:13, THE AXIS SHIFTED LEFT Confirmed by MD AGUILA VINAY ([id number]) on 09/29/2023 2:39:48 PM NAME : DALIA LOPEZ PID : [id number] : 1950 Gender : Female Race : ORD : Procedure Date : Sep 29 2023 14:17:46 Edit Date : Sep 29 2023 14:39:53 Diagnosis: NORMAL SINUS RHYTHM ANTERIOR MYOCARDIAL INFARCTION , AGE UNDETERMINED ABNORMAL ECG WHEN COMPARED WITH ECG OF 10-JUN-2022 12:13, THE AXIS SHIFTED LEFT Confirmed by MD AGUILA VINAY ([id number]) on 09/29/2023 2:39:48 PM Test Reason : Location : [facility] Overread By : MD AGUILA VINAY Edited By : MD AGUILA VINAY Referred By : , Acquired by : Kia Cruz, Leia [facility] US KIDNEY/BLADDERon 04-19-20 [facility] RUSSELL SCREENINGon 03-22-2023 [facility] XR CHEST 2V FRONTAL/LATon [facility] ECG COMPLETEon 06-10-2022 Atrial Rate 78 BPM [facility] Calculated P [place] 82 degrees [facility] Calculated R [place] 24 degrees [facility] Calculated T [place] 57 degrees [facility] P-R Interval 150 ms [facility] QRS Duration 120 ms [facility] QT Interval 430 ms [facility] QTC Calculation (Bazett) 490 ms [facility] Ventricular Rate 78 BPM [facility] UA DIP, URINE (POC)on 2021 BILIRUBIN UA (POCT) Negative Negative [facility] CLARITY UA (POCT) Clear [facility] COLOR UA (POCT) Yellow [facility] GLUCOSE UA (POCT) Negative Negative mg/dL [facility] HEMOGLOBIN/BLOOD UA (POCT) Moderate Abnormal Negative [facility] KETONE UA (POCT) Negative Negative mg/dL [facility] LEUKOCYTES UA (POCT) Small Abnormal Negative [facility] NITRITE UA (POCT) Positive Abnormal Negative [facility] PH UA (POCT) 5.5 4.5 - 8.0 [facility] Protein Ql (U) Negative Negative mg/dL [facility] SPECIFIC GRAVITY UA (POCT) 1.025 1.005 - 1.030 [facility] UROBILINOGEN UA (POCT) 0.2 E.U./dL Normal E.U./dL [facility] XR HAND MINIMUM 3 VIEWS RIGH [...] Date: 10/30/2019 7:48:16 PM Ordering Provider:Indio Dupree [facility] ([place]) .Auto Diffon 08-14-2019 Ammonia (P) [Mass/Vol] 0.60 10 3/mcL Normal 0.15-1.00 [facility] ([place]) Comment on above: Performed By: #### C LIZET BILL, ANEU #### [place] [address] #### BMP, TROP, PBNP, GFR #### [address] [address] Basophils (Bld) [#/Vol] 0.10 10 3/mcL Normal 0.00-0.19 [facility] ([place]) Comment on above: Performed By: #### C LIZET BILL, ANEU #### [place] [address] #### BMP, TROP, PBNP, GFR #### [address] [address] Basophils/100 WBC (Bld) 0.8 % Normal 0.0-2.5 [facility] ([place]) Comment on above: Performed By: #### LIZET MAYNARD, ANEU #### [place] [address] #### BMP, TROP, PBNP, GFR #### [address] [address] Eosinophils (Bld) [#/Vol] 0.10 10 3/mcL Normal 0.00-0.40 [facility] ([place]) Comment on above: Performed By: #### C LIZET BILL, ANEU #### [place] [address] #### BMP, TROP, PBNP, GFR #### [address] [address] Eosinophils/100 WBC (Bld) 1.9 % Normal 0.0-7.0 [facility] ([place]) Comment on above: Performed By: #### C BC, ADIFF, ANEU #### [address] [address] #### BMP, TROP, PBNP, GFR #### [address] [address] Lymphocytes (Bld) [#/Vol] 1.60 10 3/mcL Normal 0.77-3.85 [facility] ([place]) Comment on above: Performed By: #### C BC, ADIFF, ANEU #### [address] [address] #### BMP, TROP, PBNP, GFR #### [address] [address] Lymphocytes/100 WBC (Bld) 21.3 % Normal 10.0-50.0 [facility] ([place]) Comment on above: Performed By: #### C BC, ADIFF, ANEU #### [place] [address] #### BMP, TROP, PBNP, GFR #### [address] [address] Monocytes/100 WBC (Bld) 7.8 % Normal 1.7-13.0 [facility] ([place]) Comment on above: Performed By: #### C BC, ADIFF, ANEU #### [place] [address] #### BMP, TROP, PBNP, GFR #### [address] [address] Neutrophils/100 WBC (Bld) 68.2 % Normal 37.0-80.0 [facility] ([place]) Comment on above: Performed By: #### C BC, ADIFF, ANEU #### [place] [address] #### BMP, TROP, PBNP, GFR #### [address] [address] .GFRon 08-14-2019 GFR Non- 66 ml/min/1.73sqm Normal [facility] ([place]) Comment on above: Result Comment: GFR Population [...] By: #### C BC, ADIFF, ANEU #### [address] [address] #### BMP, TROP, PBNP, GFR #### [address] [address] GFR 80 ml/min/1.73sqm Normal [facility] ([place]) Comment on above: Result Comment: GFR Population [...] By: #### C BC, ADIFF, ANEU #### [address] [address] #### BMP, TROP, PBNP, GFR #### [address] [address] .NEUABSon 08-14-2019 Neutrophils (Bld) [#/Vol] 5.00 10 3/mcL Normal 2.85-6.16 [facility] ([place]) Comment on above: Performed By: #### C BC, ADIFF, ANEU #### [place] [address] #### BMP, TROP, PBNP, GFR #### [address] [address] BMPon 08-14-2019 Calcium [Mass/Vol] 9.2 mg/dL Normal 8.4-10.2 [facility] ([place]) Comment on above: Performed By: #### C BC, ADIFF, ANEU #### [place] [address] #### BMP, TROP, PBNP, GFR #### [place] [address] Chloride [Moles/Vol] 104 mmol/L Normal 98-107 [facility] ([place]) Comment on above: Performed By: #### C BC, ADIFF, ANEU #### [place] [address] #### BMP, TROP, PBNP, GFR #### [place] [address] CO2 [Moles/Vol] 29 mmol/L Normal 23-31 [facility] ([place]) Comment on above: Performed By: #### C BC, ADIFF, ANEU #### [place] [address] #### BMP, TROP, PBNP, GFR #### [place] [address] Creatinine [Mass/Vol] 0.85 mg/dL Normal 0.55-1.02 [facility] ([place]) Comment on above: Performed By: #### C BC, ADIFF, ANEU #### [place] [address] #### BMP, TROP, PBNP, GFR #### [address] [address] Electrolyte Balance 11.0 mEq/L Normal [facility] ([place]) Comment on above: Performed By: #### C BC, ADIFF, ANEU #### [address] [address] #### BMP, TROP, PBNP, GFR #### [address] [address] Glucose [Mass/Vol] 87 mg/dL Normal 80-115 [facility] ([place]) Comment on above: Performed By: #### C BC, ADIFF, ANEU #### [address] [address] #### BMP, TROP, PBNP, GFR #### [address] [address] Potassium [Moles/Vol] 4.2 mmol/L Normal 3.5-5.1 [facility] ([place]) Comment on above: Performed By: #### C BC, ADIFF, ANEU #### [address] [address] #### BMP, TROP, PBNP, GFR #### [address] [address] Sodium [Moles/Vol] 144 mmol/L Normal 136-145 [facility] ([place]) Comment on above: Performed By: #### C BC, ADIFF, ANEU #### [address] [address] #### BMP, TROP, PBNP, GFR #### [address] [address] Urea nitrogen [Mass/Vol] 18 mg/dL Normal 7-18 [facility] ([place]) Comment on above: Performed By: #### C BC, ADIFF, ANEU #### [address] [address] #### BMP, TROP, PBNP, GFR #### [address] [address] Urea nitrogen/Creatinine [Mass ratio] 21 ratio Normal 7-27 [facility] ([place]) Comment on above: Performed By: #### C BC, ADIFF, ANEU #### [address] [address] #### BMP, TROP, PBNP, GFR #### [address] [address] CBCon 08-14-2019 Erythrocyte distribution width (RBC) [Ratio] 14.0 % Normal 11.5-14.5 [facility] ([place]) Comment on above: Performed By: #### C BC, ADIFF, ANEU #### [place] [address] #### BMP, TROP, PBNP, GFR #### [place] [address] Hematocrit (Bld) [Volume fraction] 37.9 % Normal 37.0-47.0 [facility] ([place]) Comment on above: Performed By: #### C BC, ADIFF, ANEU #### [place] [address] #### BMP, TROP, PBNP, GFR #### [place] [address] Hemoglobin (Bld) [Mass/Vol] 12.7 G/dL Normal 12.0-16.0 [facility] ([place]) Comment on above: Performed By: #### C BC, ADIFF, ANEU #### [place] [address] #### BMP, TROP, PBNP, GFR #### [place] [address] MCH (RBC) [Entitic mass] 30.6 pg Normal 27.0-31.2 [facility] ([place]) Comment on above: Performed By: #### C BC, ADIFF, ANEU #### [place] [address] #### BMP, TROP, PBNP, GFR #### [place] [address] MCHC (RBC) [Mass/Vol] 33.5 G/dL Normal 33.0-37.0 [facility] ([place]) Comment on above: Performed By: #### C BC, ADIFF, ANEU #### [place] [address] #### BMP, TROP, PBNP, GFR #### [address] [address] MCV (RBC) [Entitic vol] 91.3 fL Normal 80.0-94.0 [facility] ([place]) Comment on above: Performed By: #### C BC, ADIFF, ANEU #### [place] [address] #### BMP, TROP, PBNP, GFR #### [address] [address] Platelet mean volume (Bld) [Entitic vol] 8.3 fL Normal 7.4-10.4 [facility] ([place]) Comment on above: Performed By: #### C BC, ADIFF, ANEU #### [place] [address] #### BMP, TROP, PBNP, GFR #### [address] [address] Platelets (Bld) [#/Vol] 299 10 3/mcL Normal 130-400 [facility] ([place]) Comment on above: Performed By: #### C BC, ADIFF, ANEU #### [place] [address] #### BMP, TROP, PBNP, GFR #### [address] [address] RBC (Bld) [#/Vol] 4.15 10 6/mcL Low 4.20-5.40 [facility] ([place]) Comment on above: Performed By: #### C BC, ADIFF, ANEU #### [place] [address] #### BMP, TROP, PBNP, GFR #### [address] [address] WBC (Bld) [#/Vol] 7.30 10 3/mcL Normal 4.60-10.80 [facility] ([place]) Comment on above: Performed By: #### C BC, ADIFF, ANEU #### [address] [address] #### BMP, TROP, PBNP, GFR #### [address] [address] PBNPon 08-14-2019 Natriuretic peptide B (Bld) [Mass/Vol] 275 pg/mL High 0-125 [facility] ([place]) Comment on above: Result Comment: NT-p roBNP results of less than 300 pg/mL effectively rules out acute congestive heart failure with 99% negative predictive value. Performed By: #### C BC, ADIFF, ANEU #### [place] [address] #### BMP, TROP, PBNP, GFR #### [place] [address] TROPon 08-14-2019 Troponin I.cardiac [Mass/Vol] ng/mL Normal 0.000-0.040 [facility] ([place]) Comment on above: Result Comment: Trop onin [...] By: #### C BC, ADIFF, ANEU #### [place] [address] #### BMP, TROP, PBNP, GFR #### [address] [address] XR CHEST 1 VIEWon 08-14-2019 XR CHEST [...] Date: 08/14/2019 5:46:44 PM Ordering Provider:Indio Dupree [facility] ([place]) Vital Signs Date Time Vital Sign Value Performing Clinician Roscoe dao 03-14-2024 14:05-0400 Body height 159.5 cm Moira Hearn APRN.BOOTMAKER HAND Work Phone: [facility] 03-14-2024 14:05-0400 Body mass index (BMI) [Ratio] 26.75 kg/m2 Moiramalu Hearn WASHATERIA ATTENDANT.BOOTMAKER HAND Work Phone: [facility] 03-14-2024 14:05-0400 Body weight 68.04 kg Moira Hearn WASHATERIA ATTENDANT.[employer]MAKER [employer] Work Phone: [facility] 03-14-2024 14:05-0400 Diastolic blood pressure 56 mm[Hg] Moira Hearn WASHATERIA ATTENDANT.BO[employer]MAKER [employer] Work Phone: [facility] 03-14-2024 14:05-0400 Heart rate 90 /min Moira Hearn WASHATERIA ATTENDANT.BOOTMAKER [employer] Work Phone: [facility] 03-14-2024 14:05-0400 Respiratory rate 18 /min Moira Hearn WASHATERIA ATTENDANT.BOOTMAKER [employer] Work Phone: [facility] 03-14-2024 14:05-0400 SaO2% (BldA) [Mass fraction] 96 % Moira Hearn WASHATERIA ATTENDANT.BOOTMAKER HAND Work Phone: [facility] 03-14-2024 14:05-0400 Systolic blood pressure 98 mm[Hg] Moira Hearn WASHATERIA ATTENDANT.BOOTMAKER [employer] Work Phone: [facility] 12-09-2023 09:03-0400 Body temperature 98.4 [degF] Lenin Bhatt MD Work Phone: [facility] 12-09-2023 09:03-0400 Body weight 70.76 kg Lenin Bhatt MD Work Phone: [facility] 12-09-2023 09:03-0400 Diastolic blood pressure 60 mm[Hg] Lenin Bhatt MD Work Phone: [facility] 12-09-2023 09:03-0400 Heart rate 76 /min Lenin Bhatt MD Work Phone: [facility] 12-09-2023 09:03-0400 Respiratory rate 20 /min Lenin Bhatt MD Work Phone: [facility] 12-09-2023 09:03-0400 Systolic blood pressure 118 mm[Hg] Lenin Bhatt MD Work Phone: [facility] 06-10-2023 10:05-0400 Body height 162.6 cm Moira Older WASHATERIA ATTENDANT.BOOTMAKER HAND Work Phone: [facility] 06-10-2023 10:05-0400 Body temperature 97.11 [degF] Moira Older WASHATERIA ATTENDANT.BO[employer]MAKER HAND Work Phone: [facility] 06-10-2023 10:05-0400 Body weight 73.98 kg Moira Older WASHATERIA ATTENDANT.BOOTMAKER HAND Work Phone: [facility] 06-10-2023 10:05-0400 Diastolic blood pressure 60 mm[Hg] Moira Older WASHATERIA ATTENDANT.BOOTMAKER HAND Work Phone: [facility] 06-10-2023 10:05-0400 Heart rate 73 /min Moira Older WASHATERIA ATTENDANT.BOOTMAKER HAND Work Phone: [facility] 06-10-2023 10:05-0400 SaO2% (BldA) [Mass fraction] 91 % Moira Older WASHATERIA ATTENDANT.BOOTMAKER HAND Work Phone: [facility] 06-10-2023 10:05-0400 Systolic blood pressure 128 mm[Hg] Moira Older WASHATERIA ATTENDANT.BOOTMAKER HAND Work Phone: [facility] 04-15-2023 11:37-0400 Body height 162.6 cm Wilbur Youssef MD Work Phone: [facility] 04-15-2023 11:37-0400 Body weight 72.58 kg Wilbur Youssef MD Work Phone: [facility] 04-15-2023 11:37-0400 Diastolic blood pressure 66 mm[Hg] Wilbur Youssef MD Work Phone: [facility] 04-15-2023 11:37-0400 Heart rate 77 /min Wilbur Youssef MD Work Phone: [facility] 04-15-2023 11:37-0400 SaO2% (BldA) [Mass fraction] 97 % Wilbur Youssef MD Work Phone: [facility] 04-15-2023 11:37-0400 Systolic blood pressure 123 mm[Hg] Wilbur Youssef MD Work Phone: [facility] 03-04-2023 16:22-0400 Body height 160 cm Lenin Bhatt MD Work Phone: [facility] 03-04-2023 16:22-0400 Body weight 72.58 kg Lenin Bhatt MD Work Phone: [facility] 03-04-2023 16:22-0400 Diastolic blood pressure 74 mm[Hg] Lenin Bhatt MD Work Phone: [facility] 03-04-2023 16:22-0400 Heart rate 84 /min Lenin Bhatt MD Work Phone: [facility] 03-04-2023 16:22-0400 Respiratory rate 20 /min Lenin Bhatt MD Work Phone: [facility] 03-04-2023 16:22-0400 SaO2% (BldA) [Mass fraction] 96 % Lenin Bhatt MD Work Phone: [facility] 03-04-2023 16:22-0400 Systolic blood pressure 124 mm[Hg] Lenin Bhatt MD Work Phone: [facility] 06-10-2022 13:02-0400 Body height 162.6 cm Jonathan Aguila MD Work Phone: [facility] 06-10-2022 13:02-0400 Body weight 70.76 kg Jonathan Aguila MD Work Phone: [facility] 06-10-2022 13:02-0400 Diastolic blood pressure 45 mm[Hg] Jonathan Aguila MD Work Phone: [facility] 06-10-2022 13:02-0400 Heart rate 83 /min Jonathan Aguila MD Work Phone: [facility] 06-10-2022 13:02-0400 Systolic blood pressure 113 mm[Hg] Jonathan Aguila MD Work Phone: [facility] 03-31-2022 13:26-0400 Body height 162.6 cm Zachariah Gonzales Jr., MD Work Phone: [facility] 03-31-2022 13:26-0400 Body weight 73.94 kg Zachariah Gonzales Jr., MD Work Phone: [facility] 12-12-2021 15:26-0400 SaO2% (BldA) [Mass fraction] 91 % Lenin Bhatt MD Work Phone: [facility] 12-12-2021 14:43-0400 Body temperature 97.3 [degF] Lenin Bhatt MD Work Phone: [facility] 12-12-2021 14:43-0400 Body weight 76.2 kg Lenin Bhatt MD Work Phone: [facility] 12-12-2021 14:43-0400 Diastolic blood pressure 62 mm[Hg] Lenin Bhatt MD Work Phone: [facility] 12-12-2021 14:43-0400 Heart rate 93 /min Lenin Bhatt MD Work Phone: [facility] 12-12-2021 14:43-0400 Respiratory rate 24 /min Lenin Bhatt MD Work Phone: [facility] 12-12-2021 14:43-0400 Systolic blood pressure 128 mm[Hg] Lenin Bhatt MD Work Phone: [facility] 10-05-2019 14:50-0500 BP Diastolic 83 mm[Hg] Aramis Cheng [facility] 10-05-2019 14:50-0500 BP Systolic 141 mm[Hg] Aramis Cheng [facility] 10-05-2019 14:50-0500 Pulse (Heart Rate) 79 /min Aramis Cheng [facility] 08-11-2018 13:31-0500 BP Diastolic 73 mm[Hg] Aramis Cheng [facility] 08-11-2018 13:31-0500 BP Systolic 126 mm[Hg] Aramis Cheng [facility] 08-11-2018 13:31-0500 Pulse (Heart Rate) 99 /min Aramis Cheng [facility] 08-26-2017 09:47-0500 BP Diastolic 77 mm[Hg] Aramis Cheng [facility] Work Phone: 08-26-2017 09:47-0500 BP Systolic 120 mm[Hg] Aramis Cheng [facility] Work Phone: 08-26-2017 09:47-0500 Pulse (Heart Rate) 92 /min Aramis Cheng [facility] Work Phone: Encounters Encounter Date Encounter Type Care Provider Facility Start: 06-12-2024 End: 06-13-2024 Refill Deepti Auguste MD Work Phone: Geriatrics Comment on above: Med Change Request Start: 06-12-2024 End: 06-12-2024 Telephone encounter Lenin Bhatt MD Work Phone: [facility] [place] Comment on above: Patient Update Start: 06-06-2024 [...] Start: 05-24-2024 End: 05-24-2024 ambulatory LENIN BHATT Facility:[facility] Start: 04-18-2024 End: 04-19-2024 Refill Lenin Bhatt MD Work Phone: [facility] [place] Comment on above: Refill Request Start: 04-13-2024 Telephone encounter Zachariah Gonzales MD Work Phone: Urology Comment on above: Results Start: 04-10-2024 End: 04-10-2024 ambulatory LENIN BHATT Facility:[facility] Start: 04-10-2024 End: 04-10-2024 Subsequent hospital visit by physician [facility] Work Phone: Radiology Comment on above: Renal mass [N28.89] Start: 03-23-2024 Refill Lenin dunbar MD Work Phone: [facility] [place] Comment on above: Refill Request Start: 03-20-2024 Orders Only Lenin dunbar MD Work Phone: [facility] [place] Comment on above: Kidney insufficiency (Primary Dx); Anemia, unspecified type; Seizure (HCC) Results Start: 03-14-2024 End: 03-14-2024 ambulatory LENIN BHATT Facility:[facility] Start: 03-14-2024 End: 03-14-2024 Patient encounter status Moira Hearn WASHATERIA ATTENDANT.BOOTMAKER HAND Work Phone: [facility] Start: 03-14-2024 End: 03-14-2024 ambulatory MOIRA HEARN Facility:[facility] Start: 03-14-2024 Encounter for examin ation of eyes and vision without abnormal findings MOIRA HEARN [facility] Start: 03-14-2024 End: 03-14-2024 Patient encounter procedure Moira Hearn WASHATERIA ATTENDANT.BOOTMAKER HAND Work Phone: [facility] [place] Comment on above: Medicare annual well ness [...] breast cancer Start: 03-13-2024 Refill Moira brink APRN.BOOTMAKER HAND Work Phone: [facility] [place] Comment on above: Refill Request Start: 01-09-2024 Refill Lenin dunbar MD Work Phone: [facility] [place] Comment on above: Refill Request Start: 12-09-2023 End: 12-09-2023 ambulatory LENIN BHATT Facility:[facility] Start: 12-09-2023 End: 12-09-2023 Patient encounter procedure [...] ambulatory Zachariah wright Jr., MD Work Phone: [facility] Start: 11-29-2023 Patient encounter procedure Indu Gonzales MD Work Phone: Urology Comment on above: Next Appointment Start: 09-29-2023 End: 09-29-2023 ambulatory JONATHAN AGUILA Facility:[facility] Start: 06-10-2023 End: 06-10-2023 Patient encounter procedure Moira Brandon APRN.CNP Work Phone: [facility] [place] Comment on above: Chronic bronchitis, unspecified chronic bronchitis type (HCC) (Primary Dx); Current moderate episode of major depressive disorder, unspecified whether recurrent (HCC); Acute on chronic respiratory failure with hypoxemia (HCC); Bilateral impacted cerumen Start: 05-19-2023 ambulatory Lenin dunbar MD Work Phone: [facility] [place] Comment on above: Sertraline Start: 05-19-2023 Telephone encounter Lenin casillas MD Work Phone: [facility] [place] Comment on above: Orders Start: 04-19-2023 End: 04-19-2023 Subsequent hospital visit by physician [facility] Work Phone: Radiology Comment on above: Renal mass [N28.89] Start: 04-15-2023 End: 04-15-2023 Patient encounter procedure Wilbur Youssef MD Work Phone: Vascular Surgery Comment on above: Peripheral arterial disease (HCC) (Primary Dx) Start: 04-08-2023 ambulatory Lenin dunbar MD Work Phone: [facility] [place] Start: 04-08-2023 Letter encounter Lenin figueroa MD Work Phone: [facility] [place] Comment on above: Letter Start: 03-23-2023 Documentation procedure Mammog lucas Coordinator [facility] Start: 03-23-2023 Letter encounter Mammography Coordinator [facility] Department Start: 03-22-2023 End: 03-22-2023 Subsequent hospital visit by physician Screen Mammo [facility] Mammogram Comment on above: Encounter for screen ing mammogram for breast cancer [Z12.31] Start: 03-12-2023 End: 03-12-2023 Patient encounter procedure Pavan Mcclure Work Phone: Podiatry Comment on above: Callus of foot (Prim wilmer Dx); Dermatophytosis of nail; Pain in toes of both feet; PVD (peripheral vascular disease) (HCC) Start: 03-12-2023 End: 03-12-2023 Subsequent hospital visit by physician [facility] [place] [facility] Work Phone: Radiology Comment on above: Chronic systolic (co ngestive) heart failure (HCC) [I50.22] Start: 03-09-2023 ambulatory Lenin dunbar MD Work Phone: [facility] [place] Start: 03-09-2023 Patient encounter procedure Vi elvia Bhatt MD Work Phone: [facility] [place] Comment on above: Wound [facility] Start: 03-04-2023 End: 03-04-2023 Patient encounter procedure Lenin Bhatt MD Work Phone: [facility] [place] Comment on above: Medicare annual well ness visit, subsequent (Primary Dx); Dermatophytosis of nail; Pain in toes of both feet; 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; Chronic systolic (congestive) heart failure (HCC); Ischemic cardiomyopathy; Essential hypertension; Kidney insufficiency; Sacral decubitus ulcer, stage II (HCC); Impaired fasting glucose Start: 02-25-2023 Refill Moira Brandon APRN, .CNP Work Phone: [facility] [place] Comment on above: Refill Request Labwork and Concern Start: 02-13-2023 ambulatory Lenin dunbar MD Work Phone: [facility] [place] Comment on above: Labwork Start: 10-27-2022 Refill Lenin dunbar MD Work Phone: [facility] [place] Comment on above: Refill Request Start: 09-28-2022 End: 09-28-2022 ambulatory LENIN BHATT [facility] Ambulatory Start: 09-28-2022 End: 09-28-2022 Office outpatient visit 25 minutes Aramis Cheng MD Work Phone: [facility] Comment on above: Localization-related epilepsy (HCC) (Primary Dx); History of stroke; Primary hypertension; Pure hypercholesterolemia Start: 08-04-2022 Refill Kristine Downing RN [facility] Comment [...] 07-21-2022 Refill Jonathan Aguila MD Work Phone: [facility] [place] Comment on above: Refill Request Start: 07-08-2022 Telephone encounter Lenin casillas MD Work Phone: [facility] [place] Comment on above: Medication Request Start: 07-01-2022 Refill Lenin dunbar MD Work Phone: [facility] [place] Comment on above: Refill Request Start: 06-10-2022 End: 06-10-2022 Patient encounter procedure Jonathan Aguila MD Work Phone: Cardiology Comment on above: Cardiomyopathy, hany schemic (HCC) (Primary Dx); Chronic combined systolic and diastolic heart failure (HCC) Start: 06-04-2022 Telephone encounter Lenin casillas MD Work Phone: [facility] [place] Comment on above: Medication Question Start: 06-03-2022 Telephone encounter Lenin casillas MD Work Phone: [facility] [place] Comment on above: Letter (For Communit y Action) Start: 06-02-2022 Refill Lenin dunbar MD Work Phone: Family [facility] Comment on above: Refill Request Start: 05-20-2022 ambulatory Lenin dunbar MD Work Phone: [facility] [place] Start: 05-18-2022 Refill Eladio Moy Work Phone: [facility] [place] Comment on above: Refill Request Start: 04-17-2022 Refill Jonathan Aguila MD Work Phone: [facility] [place] Comment on above: Refill Request Start: 04-17-2022 Telephone encounter Jonathan Evans i, MD Work Phone: [facility] [place] Comment on above: Appointment Start: 04-06-2022 Refill Blossom Lenora [facility] Comment on above: Refill Request Start: 04-03-2022 Telephone encounter Zachariah Gonzales MD Work Phone: [place] [facility] Comment on above: Results Start: 03-31-2022 End: 03-31-2022 Patient encounter procedure Zachariah Gonzales MD Work Phone: Urology Comment on above: Renal mass (Primary Dx); Dysuria Start: 01-12-2022 Telephone encounter Lenin casillas MD Work Phone: [facility] [place] Comment on above: Letter Start: 01-06-2022 Refill Lenin dunbar MD Work Phone: [facility] [place] Comment on above: Refill Request Start: 12-25-2021 Telephone encounter Lenin casillas MD Work Phone: [facility] [place] Comment on above: Patient Update; Orde rs Start: 12-17-2021 Telephone encounter Moira Roma WASHATERIA ATTENDANT.BOOTMAKER HAND Work Phone: [facility] [place] Comment on [...] Lenin dunbar MD Work Phone: [facility] [place] Comment on above: Refill Request Start: 11-21-2021 Refill John griffin MD Work Phone: [facility] [place] Comment on above: Refill Request Start: 11-21-2021 Telephone encounter Jonathan Evans i, MD Work Phone: [facility] [place] Comment on above: Appointment (Called Pt to schedule overdue 6 mth f/u appt; No answer, left vm to callback to schedule.) Start: 08-14-2021 End: 08-14-2021 Office outpatient visit 25 minutes Aramis Cheng MD Work Phone: [facility] Comment on above: Localization-related epilepsy (HCC) (Primary Dx); History of stroke; LBBB (left bundle branch block); Primary hypertension Start: 10-05-2020 End: 10-05-2020 Orders Only Tsering Guillermo Ayaan Work Phone: [facility] [place] Start: 10-05-2019 End: 10-05-2019 Office outpatient visit 25 minutes Aramis Cheng Work Phone: [facility] Comment on above: Localization-related epilepsy (HCC) (Primary Dx); Essential hypertension; Pure hypercholesterolemia; Asymptomatic PVD (peripheral vascular disease) (HCC) Start: 12-20-2018 End: 12-20-2018 Evaluation and management of inpatient MAURICIO Barbosa Facility:[facility] Start: 08-11-2018 End: 08-11-2018 Office outpatient visit 25 minutes Aramis Cheng Work Phone: [facility] Comment on above: Localization-related epilepsy (HCC) (Primary Dx); History of stroke; LBBB (left bundle branch block); Essential hypertension Start: 08-26-2017 Office/outpatient vi sit, est, level 4 Aramis Cheng Work Phone: [facility] Procedures Date [...] Start: 10-29-2029 Tetanus vaccination Tetanus: Every 10yrs [facility] Start: 10-29-2029 Urine microalbumin profile [facility] Start: 04-10-2029 Lipid panel Lipid Screening [facility] Start: 03-14-2029 Lipid panel Lipid Screening [facility] Start: 11-14-2028 Tetanus vaccination [facility] Start: 02-28-2028 Lipid 1996 panel - Serum or Plasma Lipid Screening [facility] Start: 02-28-2028 Lipid panel Lipid Screening [facility] Start: 02-28-2028 LIPID SCREEN LIPID SCREEN [facility] Start: 04-10-2027 Diabetes Screening Diabetes Screening [facility] Start: 03-14-2027 Diabetes Screening Diabetes Screening [facility] Start: 12-15-2026 LIPID SCREEN LIPID SCREEN [facility] Start: 03-12-2026 DIABETES SCREEN DIABETES SCREEN [facility] Start: 03-12-2026 Diabetes Screening Diabetes Screening [facility] Start: 02-27-2026 DIABETES SCREEN DIABETES SCREEN [facility] Start: 04-10-2025 Hepatitis B surface antibody level LDL Cholesterol [facility] Start: 04-03-2025 LIPID SCREEN LIPID SCREEN [facility] Start: 03-14-2025 Annual PCP Team Chronic Disease Visit Annual PCP Team Chronic Disease Visit [facility] Start: 03-14-2025 BP Controlled (<130/80) BP Controlled (<130/80) [facility] Start: 03-14-2025 Hepatitis B surface antibody level LDL Cholesterol [facility] Start: 03-14-2025 RSV Vaccine (1 - 1-dose 60+ series) RSV Vaccine (1 - 1-dose 60+ series) [facility] Comment on above: Postponed from 2010 (Declined at t his time) Start: 03-14-2025 RSV Vaccine (1 - Risk 60-74 years 1-dose series) RSV Vaccine (1 - Risk 60-74 years 1-dose series) [facility] Comment on above: Postponed from 2010 (Declined at t his time) Start: 03-14-2025 Shingrix Vaccine (1 of 2) Shingrix Vaccine (1 of 2) [facility] Comment on above: Postponed from 2000 (Declined at t his time) Start: 12-15-2024 DIABETES SCREEN DIABETES SCREEN [facility] Start: 12-08-2024 Annual PCP Team Chronic Disease Visit Annual PCP Team Chronic Disease Visit [facility] Start: 12-08-2024 BP Controlled (<130/80) BP Controlled (<130/80) [facility] Start: 09-29-2024 BP Controlled (<130/80) BP Controlled (<130/80) [facility] Start: 08-16-2024 End: 08-16-2024 Patient encounter procedure 08/16/2024 2:00 PM EST Office Visit Geriatrics [address] [facility] [place] [id number] Deepti Auguste MD [address] [place] [id number] 3 month follow up Geriatrics Comment on above: 3 month follow up Start: 08-01-2024 End: 08-01-2024 Patient encounter procedure 08/01/2024 1:00 PM EST Office Visit [facility] [address] [place] [address] Elis Leonard, OD [address] [place] [address] Encounter for routine eye and vision examination [Z01.00]/ OK PER DR LEONARD Ophthalmology Comment on above: Encounter for routine eye and vision exa mination [Z01.00]/ OK PER DR LEONARD Start: 06-12-2024 End: 06-12-2024 Patient encounter procedure 06/12/2024 1:20 PM EDT Office Visit Internal Medicine [place] [address] [place] [address] Moira Hearn, JACK.BOOTMAKER HAND [address] [place] [address] 6 month follow-up [facility] [place] Comment on above: 6 month follow-up Start: 06-10-2024 Annual PCP Team Chronic Disease Visit Annual PCP Team Chronic Disease Visit [facility] Start: 06-10-2024 BP Controlled (<130/80) BP Controlled (<130/80) [facility] Start: 06-09-2024 End: 06-09-2024 Patient encounter procedure [facility] [place] Comment on above: 6 month follow-up Start: 05-24-2024 End: 05-24-2024 Patient encounter procedure [facility] [place] Comment on above: nurse Sintia consult Start: 05-09-2024 End: 05-09-2024 Patient encounter procedure 05/09/2024 2:45 PM EDT Office Visit [facility] [address] [place] [address] Elis Leonard, OD [address] [place] [address] Encounter for routine eye and vision examination [Z01.00] Ophthalmology Comment on above: Encounter for routine eye and vision exa mination [Z01.00] Start: 04-30-2024 Influenza vaccination [facility] [facility] Start: 04-19-2024 End: 04-19-2024 Patient encounter procedure [facility] Comment on above: Aphasia, late effect of cerebrovascular disease [I69.920]; Late effects of CVA (cerebrovascular accident) [I69.90]; Abnormal mini-mental status exam [F99] Start: 04-15-2024 BP CONTROLLED (<130/80) BP CONTROLLED (<130/80) [facility] Start: 04-10-2024 End: 04-10-2024 Patient encounter procedure 04/10/2024 11:30 AM EDT Appointment Radiology [address] [place] [address] Renal mass [N28.89] Radiology Comment on above: Renal mass [N28.89] Start: 03-31-2024 US KIDNEY/BLADDER US KIDNEY/BLADDER Radiology Routine Renal mass Expected: 03/31/2024 [facility] Work Phone: Comment on above: Expected: 03/31/2024 Start: 03-27-2024 End: 06-26-2024 Basic metabolic 2000 panel - Serum or Plasma BASIC METABOLIC PANEL Lab Routine Kidney insufficiency Expected: 03/27/2024, Expires: 06/26/2024 [facility] Comment on above: Expected: 03/27/2024, Expires: Start: 03-27-2024 End: 06-26-2024 CBC panel - Blood by Automated count COMPLETE BLOOD COUNT Lab Routine Anemia, unspecified type Expected: 03/27/2024, Expires: 06/26/2024 [facility] Work Phone: Comment on above: Expected: 03/27/2024, Expires: Start: 03-27-2024 End: 06-26-2024 Cobalamin (Vitamin B12) [Mass/volume] in Serum or Plasma VITAMIN B12 Lab Routine Anemia, unspecified type Expected: 03/27/2024, Expires: 06/26/2024 [facility] Comment on above: Expected: 03/27/2024, Expires: Start: 03-27-2024 End: 06-26-2024 Ferritin [Mass/volume] in Serum or Plasma FERRITIN Lab Routine Anemia, unspecified type Expected: 03/27/2024, Expires: 06/26/2024 [facility] Comment on above: Expected: 03/27/2024, Expires: Start: 03-27-2024 End: 06-26-2024 levETIRAcetam [Mass/volume] in Serum or Plasma LEVETIRACETAM Lab Routine Seizure (HCC) Expected: 03/27/2024, Expires: 06/26/2024 [facility] Comment on above: Expected: 03/27/2024, Expires: Start: 03-22-2024 Mammography [facility] Start: 03-22-2024 Screening for malignant neoplasm of breast Mammogram Screening [facility] Start: 03-14-2024 End: 03-14-2024 Patient encounter procedure 03/14/2024 2:20 PM EDT Office Visit [facility] [place] [address] [place], [place] [address] Moira Hearn, WASHATERIA ATTENDANT.[employer]OT[employer]KER [employer] [address] [place], [place] [address] Annual Medicare w/3 month follow-up [facility] Comment on above: Annual Medicare w/3 month follow-up Start: 03-14-2024 End: 06-13-2024 LIPID PANEL, NONFASTING [facility] Comment on above: Expected: 03/14/2024, Expires: Start: 03-09-2024 End: 06-08-2024 CBC panel - Blood by Automated count COMPLETE BLOOD COUNT Lab Routine Acute on chronic respiratory failure with hypoxemia (HCC) Expected: 03/09/2024, Expires: 06/08/2024 [facility] Work Phone: Comment on above: Expected: 03/09/2024, Expires: Start: 03-09-2024 End: 06-08-2024 Comprehensive metabolic 2000 panel - Serum or Plasma COMPREHENSIVE METABOLIC PANEL Lab Routine Hyperlipidemia, unspecified hyperlipidemia type Expected: 03/09/2024, Expires: 06/08/2024 [facility] Work Phone: Comment on above: Expected: 03/09/2024, Expires: Start: 03-09-2024 End: 06-08-2024 levETIRAcetam [Mass/volume] in Serum or Plasma LEVETIRACETAM Lab Routine 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) Expected: 03/09/2024, Expires: 06/08/2024 [facility] Work Phone: Comment on above: Expected: 03/09/2024, Expires: 4 Start: 03-09-2024 End: 06-08-2024 Lipid 1996 panel - Serum or Plasma LIPID PANEL BASIC Lab Routine Hyperlipidemia, unspecified hyperlipidemia type Expected: 03/09/2024, Expires: 06/08/2024 [facility] Work Phone: Comment on above: Expected: 03/09/2024, Expires: Start: 03-09-2024 End: 06-08-2024 Thyrotropin [Units/volume] in Serum or Plasma THYROID STIMULATING HORMONE Lab Routine Acquired hypothyroidism Expected: 03/09/2024, Expires: 06/08/2024 [facility] Work Phone: Comment on above: Expected: 03/09/2024, Expires: Start: 03-04-2024 ANNUAL PCP TEAM CHRONIC DISEASE VISIT ANNUAL PCP TEAM CHRONIC DISEASE VISIT [facility] Start: 03-04-2024 BP CONTROLLED (<130/80) BP CONTROLLED (<130/80) [facility] Start: 02-28-2024 Hepatitis B surface antibody level LDL CHOLESTEROL [facility] Start: 02-27-2024 Influenza vaccination Influenza Vaccine (#1) [facility] Comment on above: Postponed from 04/30/2023 (Declined at t his time) Start: 01-22-2024 DIABETES SCREEN DIABETES SCREEN [facility] Start: 08-30-2023 Advance Directive Discussion Advance Directive Discussion [facility] Start: 07-16-2023 ANNUAL PCP TEAM CHRONIC DISEASE VISIT ANNUAL PCP TEAM CHRONIC DISEASE VISIT [facility] Start: 06-10-2023 BP CONTROLLED (<130/80) BP CONTROLLED (<130/80) [facility] Start: 04-30-2023 Influenza vaccination [facility] Start: 03-18-2023 End: 05-18-2023 Basic metabolic 2000 panel - Serum or Plasma BASIC METABOLIC PNL Lab Routine Kidney insufficiency Expected: 03/18/2023, Expires: 05/18/2023 [facility] Work Phone: Comment on above: Expected: 03/18/2023, Expires: 3 Start: 03-18-2023 End: 05-18-2023 Natriuretic peptide.B prohormone N-Terminal [Mass/volume] in Serum or Plasma NT PRO BNP Lab Routine Chronic systolic (congestive) heart failure (HCC) Expected: 03/18/2023, Expires: 05/18/2023 [facility] Work Phone: Comment on above: Expected: 03/18/2023, Expires: 3 Start: 03-18-2023 End: 05-18-2023 Urinalysis complete panel - Urine URINALYSIS, WITH MICROSCOPIC Lab Routine Kidney insufficiency Expected: 03/18/2023, Expires: 05/18/2023 [facility] Work Phone: Comment on above: Expected: 03/18/2023, Expires: 3 Start: 02-26-2023 Influenza vaccination INFLUENZA (#1) [facility] Comment on above: Postponed from 04/30/2022 (Declined at t his time) Start: 02-15-2023 End: 04-17-2023 CBC panel - Blood by Automated count CBC Lab Routine Essential hypertension Expected: 02/15/2023, Expires: 04/17/2023 [facility] Work Phone: Comment on above: Expected: 02/15/2023, Expires: 3 Start: 02-15-2023 End: 04-17-2023 Comprehensive metabolic 2000 panel - Serum or Plasma COMP METABOLIC PANEL Lab Routine Hyperlipidemia, unspecified hyperlipidemia type Essential hypertension Expected: 02/15/2023, Expires: 04/17/2023 [facility] Work Phone: Comment on above: Expected: 02/15/2023, Expires: 3 Start: 02-15-2023 End: 04-17-2023 Hemoglobin A1c in Blood HGB A1C Lab Routine Impaired fasting glucose Expected: 02/15/2023, Expires: 04/17/2023 [facility] Work Phone: Comment on above: Expected: 02/15/2023, Expires: 3 Start: 02-15-2023 End: 04-17-2023 levETIRAcetam [Mass/volume] in Serum or Plasma LEVETIRACETAM Lab Routine 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) Expected: 02/15/2023, Expires: 04/17/2023 [facility] Work Phone: Comment on above: Expected: 02/15/2023, Expires: 3 Start: 02-15-2023 End: 04-17-2023 Lipid 1996 panel - Serum or Plasma LIPID PANEL BASIC Lab Routine Hyperlipidemia, unspecified hyperlipidemia type Expected: 02/15/2023, Expires: 04/17/2023 [facility] Work Phone: Comment on above: Expected: 02/15/2023, Expires: 3 Start: 02-15-2023 End: 04-17-2023 Thyrotropin [Units/volume] in Serum or Plasma TSH BLD Lab Routine Acquired hypothyroidism Expected: 02/15/2023, Expires: 04/17/2023 [facility] Work Phone: Comment on above: Expected: 02/15/2023, Expires: 3 Start: 12-14-2022 Colonoscopy COLONOSCOPY [facility] Start: 12-14-2022 COLORECTAL CANCER SCREENING COLORECTAL CANCER SCREENING [facility] Start: 12-14-[address] COLONOGRAPHY [facility] Start: 12-14-2022 Screening for malignant neoplasm of colon [facility] Start: 12-12-2022 ANNUAL PCP TEAM CHRONIC DISEASE VISIT ANNUAL PCP TEAM CHRONIC DISEASE VISIT [facility] Start: 12-12-2022 BP CONTROLLED (<130/80) BP CONTROLLED (<130/80) [facility] Start: 12-12-2022 SHINGRIX VACCINE (1 of 2) SHINGRIX VACCINE (1 of 2) [facility] Comment on above: Postponed from 2000 (Insurance Cov erage) Start: 08-30-2022 ADVANCE DIRECTIVE DISCUSSION ADVANCE DIRECTIVE DISCUSSION [facility] Start: 08-14-2022 Depression screening using PHQ-9 (Patient Health Questionnaire 9) score Depression Screening (PHQ-2/9) [facility] Start: 08-14-2022 End: 08-14-2022 Patient encounter procedure 08/14/2022 Office Visit Neurology Aramis Cheng MD [address] [facility] [address] [place] [address] [facility] Start: 07-15-2022 ANNUAL PCP TEAM CHRONIC DISEASE VISIT ANNUAL PCP TEAM CHRONIC DISEASE VISIT [facility] Start: 04-30-2022 Influenza vaccination [facility] Start: 04-04-2022 Mammography MAMMOGRAM [facility] Start: 04-04-2022 Screening for malignant neoplasm of breast Mammogram [facility] Start: 02-26-2022 Influenza vaccination INFLUENZA (#1) [facility] Comment on above: Postponed from 04/30/2021 (Declined at t his time) Start: 01-22-2022 BP CONTROLLED (<130/80) BP CONTROLLED (<130/80) [facility] Start: 12-25-2021 End: 02-24-2022 Bacteria identified in Urine by Culture URINE CULTURE Microbiology Routine Urinary tract infection symptoms Expected: 12/25/2021, Expires: 02/24/2022 [facility] Work Phone: Comment on above: Expected: 12/25/2021, Expires: 2 Start: 12-25-2021 End: 02-24-2022 Urinalysis complete panel - Urine URINALYSIS, WITH MICROSCOPIC Lab Routine Urinary tract infection symptoms Expected: 12/25/2021, Expires: 02/24/2022 [facility] Work Phone: Comment on above: Expected: 12/25/2021, Expires: 2 Start: 12-17-2021 End: 02-16-2022 FERRITIN BLD FERRITIN BLD Lab Routine Anemia, unspecified type Expected: 12/17/2021, Expires: 02/16/2022 [facility] Work Phone: Comment on above: Expected: 12/17/2021, Expires: 2 Start: 12-17-2021 End: 02-16-2022 Folate [Mass/volume] in Serum or Plasma FOLATE SERUM Lab Routine Anemia, unspecified type Expected: 12/17/2021, Expires: 02/16/2022 [facility] Work Phone: Comment on above: Expected: 12/17/2021, Expires: 2 Start: 12-17-2021 End: 02-16-2022 IRON + TIBC IRON + TIBC Lab Routine Anemia, unspecified type Expected: 12/17/2021, Expires: 02/16/2022 [facility] Work Phone: Comment on above: Expected: 12/17/2021, Expires: 2 Start: 12-17-2021 End: 02-16-2022 VITAMIN B12 BLOOD VITAMIN B12 BLOOD Lab Routine Anemia, unspecified type Expected: 12/17/2021, Expires: 02/16/2022 [facility] Work Phone: Comment on above: Expected: 12/17/2021, Expires: 2 Start: 08-30-2021 ADVANCE DIRECTIVE DISCUSSION ADVANCE DIRECTIVE DISCUSSION [facility] Start: 04-30-2021 Influenza vaccination Sequential Influenza Vaccine (#1) [facility] Start: 08-06-2020 End: 08-06-2020 Office Visit 08/06/2020 Office Visit Neurology Aramis Cheng MD [address] [place] [address] [phone] [facility] Start: 04-30-2020 Influenza vaccination given Sequential Influenza Vaccine (#1) [facility] Start: 08-15-2019 End: 08-15-2019 Ambulatory 08/15/2019 Office Visit Neurology Aramis Cheng MD [address] [place] [address] [phone] [facility] Start: 08-11-2018 Ambulatory 08/11/2018 Office Visit Neurology Aramis Cheng MD [address] [facility] [address] [place] [address] [phone] [facility] Start: 04-30-2018 Influenza vaccination SEQUENTIAL INFLUENZA VACCINE (#1) [facility] Start: 12-09-2016 Screening for malignant neoplasm of lung Low-dose CT Lung Cancer Screen [facility] Start: 12-02-2016 Pneumococcal vaccination PNEUMOCOCCAL VACCINE AGE 65+ (2 of 2 - PCV13) [facility] Start: 2015 Fall risk assessment Falls Risk Assessment [facility] Start: 2010 RSV Vaccine (1 - 1-dose 60+ series) RSV Vaccine (1 - 1-dose 60+ series) [facility] Start: 2010 Zoster vacc, sc ZOSTER VACCINE [facility] Work Phone: Start: 2000 Administration of herpes zoster vaccine Zoster Vaccines (1 of 2) [facility] Start: 2000 Screening for malignant neoplasm of colon [facility] Start: 2000 SHINGRIX VACCINE (1 of 2) SHINGRIX VACCINE (1 of 2) [facility] Start: 2000 ZOSTER VACCINES (1 of 2) ZOSTER VACCINES (1 of 2) [facility] Start: 1995 COLOGUARD (FIT-DNA) COLOGUARD (FIT-DNA) [facility] Start: 1995 FECAL OCCULT BLOOD FECAL OCCULT BLOOD [facility] Start: 1995 Screening for malignant neoplasm of colon [facility] Start: 1995 SIGMOIDOSCOPY SIGMOIDOSCOPY [facility] Start: 1968 Hepatitis C antibody, confirmatory test Hepatitis C Screening [facility] Start: 1968 Hepatitis C screening Hepatitis C Screening [facility] Start: 1966 COVID-19 Vaccine (1 of 2) COVID-19 Vaccine (1 of 2) [facility] Start: 1962 COVID-19 Vaccine (1) COVID-19 Vaccine (1) [facility] Start: 1953 History and physical examination, annual for health maintenance Wellness Visit [facility] Start: 01-15-1951 COVID-19 Vaccine (#1) COVID-19 Vaccine (#1) [facility] Start: 1950 Adult depression screening assessment DEPRESSION SCREENING (PHQ9) [facility] Start: 1950 Fall risk assessment Falls Risk Assessment [facility] Start: 1950 Hepatitis C antibody, confirmatory test HEPATITIS C SCREENING [facility] Start: 1950 HEPATITIS C SCREENING HEPATITIS C SCREENING [facility] Work Phone: Start: [address] Low-dose [address] Lung Cancer Screen Low-dose CT Lung Cancer Screen [facility] Work Phone: Start: 1950 Screening colonoscopy COLONOSCOPY [facility] Work Phone: Start: 1950 Screening for malignant neoplasm of colon [facility] Start: 1950 Screening for malignant neoplasm of lung Low-dose CT Lung Cancer Screen [facility] Start: 1950 Screening for osteoporosis DEXA SCAN [facility] Start: 1950 Screening mammography Mammogram [facility] Start: 1950 SUBSTANCE ABUSE SCREENING (AUDIT-C) SUBSTANCE ABUSE SCREENING (AUDIT-C) [facility] Start: 1950 Tetanus vaccination TETANUS EVERY 10 YR [facility] Work Phone: Bacteria identified in Urine by Culture URINE CULTURE Microbiology Routine Dysuria 03/31/2022 1:50 PM EDT [facility] Work Phone: End: 04-13-2025 DBT Breast - bilateral screening RUSSELL SCREENING W [facility] Radiology Routine Encounter for screening mammogram for breast cancer 1 Occurrences starting 03/14/2024 until 04/13/2025 [facility] Work Phone: Comment on above: 1 Occurrences starting 03/14/2024 until 04/13/2025 End: 06-10-2023 ECG COMPLETE ECG COMPLETE ECG Routine Cardiomyopathy, nonischemic (HCC) 1 Occurrences starting 06/10/2022 until 06/10/2023 [facility] Work Phone: Comment on above: 1 Occurrences starting 06/10/2022 until 06/10/2023 Hemoglobin.gastroint grace nal.lower [Presence] in Stool by Immunoassay IMMUNOCHEMICAL FECAL OCCULT BLOOD TEST Lab Routine Anemia, unspecified type Ordered: 03/20/2024 [facility] Comment on above: Ordered: 03/20/2024 End: 03-12-2024 PVR ANK PRESS [facility]VR ANK [facility]ESS [facility] Vascular Lab Routine Dermatophytosis of nail PVD (peripheral vascular disease) (HCC) 1 Occurrences starting 03/12/2023 until 03/12/2024 [facility] Work Phone: Comment on above: 1 Occurrences starting 03/12/2023 until 03/12/2024 End: 04-02-2024 Radiologic exam chest 2 views XR CHEST 2V FRONTAL/LAT Radiology Routine Chronic systolic (congestive) heart failure ([facility]) 1 Occurrences starting 03/04/2023 until 04/02/2024 [facility] Work Phone: Comment on above: 1 Occurrences starting 03/04/2023 until 04/02/2024 Removal impacted cer umen irrigation/lvg unilat AMBULATORY EAR LAVAGE/IRRIGATION Procedures Routine Bilateral impacted cerumen Ordered: 06/10/2023 [facility] Work Phone: Comment on above: Ordered: 06/10/2023 End: 06-19-2023 Screening mammography bi 2-view breast inc cad RUSSELL SCREENING Radiology Routine Encounter for screening mammogram for breast cancer 1 Occurrences starting 05/20/2022 until 06/19/2023 [facility] Work Phone: Comment on above: 1 Occurrences starting 05/20/2022 until 06/19/2023 End: 12-28-2024 US Kidney - bilateral and Urinary bladder US KIDNEY/BLADDER Radiology Routine Renal mass 1 Occurrences starting 12/02/2023 until 12/28/2024 [facility] Work Phone: Comment on above: 1 Occurrences starting 12/02/2023 until 12/28/2024 US Kidney - bilatera l and Urinary bladder US KIDNEY/BLADDER Radiology Routine Renal mass 04/10/2024 11:17 AM EDT [facility] Work Phone: [facility] Immunizations Immunization Date Immunization Notes Care Provider Kaycee kevyn 07-16-2020 influenza, high-dose , quadrivalent vaccine (FLUZONE HIGH DOSE QUADRIVALENT) Jonathan Aguila MD Work Phone: [facility] 07-16-2020 influenza virus vacc ine, unspecified formulation Lenin Bhatt MD Work Phone: [facility] 10-30-2019 tetanus toxoid, redu sanjuana diphtheria toxoid, and acellular pertussis vaccine, adsorbed Jonathna Aguila MD Work Phone: [facility] Work Phone: 05-30-2019 influenza, high dose seasonal, preservative-free Jonathan Aguila MD Work Phone: [facility] 11-14-2018 tetanus and diphther ia toxoids, adsorbed, preservative free, for adult use (2 Lf of tetanus toxoid and 2 Lf of diphtheria toxoid) Jonathan Aguila MD Work Phone: [facility] Work Phone: 07-04-2018 influenza, high dose seasonal, preservative-free Jonathan Aguila MD Work Phone: [facility] Work Phone: 06-30-2017 influenza, high dose seasonal, preservative-free Jonathan Aguila MD Work Phone: [facility] 12-28-2016 pneumococcal conjuga te vaccine, 13 valent Jonathan Aguila MD Work Phone: [facility] 09-03-2016 influenza, high dose seasonal, preservative-free Jonathan Aguila MD Work Phone: [facility] Work Phone: 12-03-2015 pneumococcal polysaccharide vaccine, 23 valent; Translations: [pneumococcal] Aramis Cheng [facility] 06-27-2014 influenza, seasonal, injectable, preservative free Jonathan Aguila MD Work Phone: [facility] Work Phone: Payers Date Payer Category Payer Medicaid [facility] MEDICAID MYC ARE [facility] MEDICAID [id number] 2017-Present [phone] [address] [place] [address] Medicaid [id number] 2017 Medicare [id number] 2017 Medicare [id number] 2017 Medicare xxxxxxxxx [id number] 2017 Medicare [id number] 1950 Unknown [id number] 1950 Unknown [id number] Social History Date Type Detail Facility Start: 08-26-2017 End: 05-24-2024 Tobacco smoking status NJIS Former smoker [facility] Work Phone: End: 03-30-2013 History of tobacco use Current smoker [facility] Work Phone: End: 03-30-2013 History of tobacco use Cigarette Smoker [facility] Work Phone: Start: 08-26-2017 End: 08-04-2020 Cigarettes smoked current (pack per day) - Reported [facility] Start: 1950 [facility]igned At [facility] Start: 10-05-2019 End: 05-24-2024 Alcohol intake Current non-drinker of alcohol (finding) [facility] Start: 08-06-2020 End: 05-24-2024 Tobacco use and exposure Never used [facility] Start: 11-30-2021 End: 09-28-2022 Exposure to SARS-CoV-2 (event) Not sure [facility] Start: 08-04-2020 End: 03-04-2023 Tobacco use panel [facility] Adult Depression Screening Assessment 0 [facility] How often to you hav e a drink containing alcohol? Never [facility] Start: 05-24-2024 Education 13 [facility] Medical Equipment Procedure Code Equipment Code Equipment Origin al Text Equipment Identifier Dates Sling Implant Tv t Device W/Blue Mesh - [id number] Start: 12-02-2015 Sling Implant Tv t Device W/Blue Mesh - [id number] Start: 12-02-2015 Sling Implant Tv t Device W/Blue Mesh - [id number] Start: 12-02-2015 Clinical Notes 08-31-2018 to [...] Castro LPN June 12, 2024 3:36 PM [facility] 06-12-2024 Miscellaneous Notes Prescription Refill Information [...] 2024 3:36 PM documented in this encounter [facility] 06-12-2024 Telephone encounter Note Son (William) calls to report that patient had a fall a few days ago with worsening pain. He reports today that she is having severe pain and unable to ambulate or dress herself. William is going to call an ambulance to have her taken to [facility] ER for evaluation/treatment. Appointment for today cancelled and William will reschedule once patient is seen in ER. Kenya Barroso RN [facility] 06-12-2024 Miscellaneous Notes Son (William) calls to report that patient had a fall a few days ago with worsening pain. He reports today that she is having severe pain and unable to ambulate or dress herself. William is going to call an ambulance to have her taken to [facility] ER for evaluation/treatment. Appointment for today cancelled and William will reschedule once patient is seen in ER. Kenya Barroso RN documented in this encounter [facility] 06-08-2024 Telephone encounter Note The following approved medication requests have been transmitted electronically. Requested Prescriptions Signed Prescriptions Disp Refills acetaminophen-codeine (TYLENOL-COD #3) 300-30 mg per tablet 30 tablet 0 Sig: Take 1 tablet by mouth at bedtime as needed for pain for up to 30 days. Authorizing Provider: LENIN BHATT MD [facility] 06-08-2024 Miscellaneous Notes The following approved [...] Sheila Munoz LPN. documented in this encounter [facility] 06-07-2024 Telephone encounter Note Patient has [...] Please advise. Thank you. Sheila Munoz LPN. [facility] 05-30-2024 Telephone encounter Note Patient has [...] Please advise. Thank you. Sheila Munoz LPN. [facility] 05-30-2024 Miscellaneous Notes Patient has been [...] Sheila Munoz LPN. documented in this encounter [facility] 05-24-2024 Telephone encounter Note Patient to call. Sheila Munoz LPN [facility] 05-24-2024 Miscellaneous Notes Patient to call. Sheila Munoz LPN documented in this encounter [facility] 04-19-2024 Telephone encounter Note The following approved medication requests have been transmitted electronically. Requested Prescriptions Signed Prescriptions Disp Refills acetaminophen-codeine (TYLENOL-COD #3) 300-30 mg per tablet 30 tablet 0 Sig: Take 1 tablet by mouth at bedtime as needed for pain for up to 30 days. Authorizing Provider: LENIN BHATT MD [facility] 04-19-2024 Miscellaneous Notes The following approved [...] 2024 2:56 PM documented in this encounter [facility] 04-18-2024 Telephone encounter Note The patient [...] Martinez RN April 18, 2024 2:56 PM [facility] 04-13-2024 Telephone encounter Note Spoke with patient and advised of results. Edmund Weeks MA [facility] 04-13-2024 Miscellaneous Notes Spoke with patient and advised of results. Edmund Weeks MA Images from the original note were not included. Message Received: Yesterday Zachariah Gonzales Jr., MD P [facility] [employer] [place] Ultrasound is stable documented in this encounter [facility] 04-13-2024 Telephone encounter Note Images from the original note were not included. Message Received: Yesterday Zachariah Gonzales Jr., MD P [facility] [employer] Clinical truedash Ultrasound is stable [facility] 04-10-2024 History of Presen t illness [...] PATIENT PRESENTS WITH AN IMPLANTABLE OR ATTACHED BRAND ENGINEER: No RADIOLOGY DEPARTMENT: Ultrasound PERIPHERAL IV DATA: Not applicable SIGNED BY: April Avalos RDMS RVT April 10, 2024 11:18 AM documented in this encounter [facility] 04-10-2024 Note HNO ID: [id number] Author: APRIL AVALOS RDMS Service: ? Author Type: [employer] Car Checker Type: Progress Notes Filed: 04/10/2024 11:19 Note [...] PATIENT PRESENTS WITH AN IMPLANTABLE OR ATTACHED BRAND ENGINEER: No RADIOLOGY DEPARTMENT: Ultrasound PERIPHERAL IV DATA: Not applicable SIGNED BY: April Avalos RDMS RVT April 10, 2024 11:18 AM [facility] 03-24-2024 Telephone encounter Note Prescription Refill Information [...] Bustillo MA March 24, 2024 9:18 AM [facility] 03-24-2024 Miscellaneous Notes Prescription Refill Information [...] 2024 9:18 AM documented in this encounter [facility] 03-21-2024 Telephone encounter Note Notification received that [employer] message was not read. TC to pt's son William. Notified and verbalized understanding of instructions. [facility] 03-21-2024 Miscellaneous Notes Notification received that [employer] message was not read. TC to pt's son William. Notified and verbalized understanding of instructions. documented in this encounter [facility] 03-14-2024 Instructions Moira Hearn, WASHATERIA ATTENDANT.BOOTMAKER HAND - 03/14/2024 2:25 PM EDT Decrease Lisinopril [...] review all the medicines you take, even [id number] medicines. As you get older, the way [...] certain medical conditions. documented in this encounter [facility] 03-14-2024 Note HNO ID: [id number] Author: MOIRA HEARN APRN.JUSTICE Service: ? Author [...] as PCP - General Outside specialists seen: admiralty lawyer- Dr. Jonathan Aguila, neurology- Dr. Aramis Cheng [...] activity was identified. 03/15/2024 by Moira Hearn APRN.BOOTMAKER HAND - ACETAMINOPHEN 300 MG-CODEINE 30 MG TABLET 3. Essential hypertension - ICD9: 401.9, ICD10: I10 BP low, patient experiencing positional lightheadedness but otherwise asymptomatic - Decrease Lisinopril to 2.5 mg daily - Recommend home blood pressure monitoring, (more content not included)... [facility] 03-14-2024 History of Presen t illness Narrative [...] as PCP - General Outside specialists seen: admiralty lawyer- Dr. Jonathan Aguila, neurology- Dr. Aramis Cheng [...] activity was identified. 03/15/2024 by Moira Hearn, WASHATERIA ATTENDANT.BOOTMAKER HAND - ACETAMINOPHEN 300 MG-CODEINE 30 MG TABLET [...] Z12.31 - RUSSELL SCREENING W YUKI Hearn APRN.BOOTMAKER HAND documented in this encounter [facility] 03-13-2024 Telephone encounter Note Patient has [...] Please advise. Thank you. Sheila Munoz LPN. [facility] 03-13-2024 Miscellaneous Notes Patient has been [...] Sheila Munoz LPN. documented in this encounter [facility] 01-10-2024 Telephone encounter Note Requested Prescriptions Pending Prescriptions Disp Refills acetaminophen-codeine (TYLENOL-COD #3) 300-30 mg per tablet 30 tablet 0 Sig: Take 1 tablet by mouth daily at bedtime for 30 days. Date of last office visit in primary care: 12/09/2023 Date of next office visit in primary care: 03/14/2024 Please advise. Thank you. Yohan Bustillo MA. [facility] 01-10-2024 Miscellaneous Notes Requested Prescriptions Pending Prescriptions Disp Refills acetaminophen-codeine (TYLENOL-COD #3) 300-30 mg per tablet 30 tablet 0 Sig: Take 1 tablet by mouth daily at bedtime for 30 days. Date of last office visit in primary care: 12/09/2023 Date of next office visit in primary care: 03/14/2024 Please advise. Thank you. Yohan Bustillo MA. documented in this encounter [facility] 12-09-2023 Note HNO ID: [id number] Author: LENIN BHATT MD Service: ? Author Type: Physician Type: Progress Notes Filed: 12/09/2023 09:58 Note Text: This note was created using [employer]. Subjective Dalia Lopez is a 73 year [...] Disorder (Hcc) Sacral Decubitus Ulcer, Stage II ([facility]) Kidney Insufficiency Bacteriuria With Pyuria Arteriosclerosis of Coronary Artery Closed Head Injury History of Stroke Lbbb (Left Bundle Branch Block) Leukopenia Recurrent Falls Seizure (Hcc) Covid-19 Localization-Related Epilepsy ([facility]) Open Wound of Hand Chronic Bronchitis, Unspecified Chronic Bronchitis Type ([facility]) Social History Tobacco Use Smoking status: Former [...] Comments: On whe (more content not included)... [facility] 12-09-2023 History of Presen t illness Narrative This note was created using [employer]. Subjective Dalia Lopez is a 73 year [...] As Late Effect of Cerebrovascular Accident (Cva) ([facility]) Pvd (Peripheral Vascular Disease) ([facility]) Acquired Hypothyroidism Hyperlipidemia Anxiety Associated With Depression Impaired Fasting Glucose Mass of Left Kidney Urinary Incontinence Bronchospasm Acute On Chronic Respiratory Failure With Hypoxemia ([facility]) Ischemic Cardiomyopathy Chronic Systolic (Congestive) Heart Failure ([facility]) Current Moderate Episode of Major Depressive Disorder ([facility]) Sacral Decubitus Ulcer, Stage II ([facility]) Kidney Insufficiency Bacteriuria With Pyuria Arteriosclerosis of Coronary Artery Closed Head Injury History of Stroke Lbbb (Left Bundle Branch Block) Leukopenia Recurrent Falls Seizure ([facility]) Covid-19 Localization-Related Epilepsy ([facility]) Open Wound of Hand Chronic Bronchitis, Unspecified Chronic Bronchitis Type ([facility]) Social History Tobacco Use Smoking status: Former [...] Lenin Bhatt MD documented in this encounter [facility] 11-29-2023 Miscellaneous Notes Your last note states to FU in 2 years on 03/31/2022 with US prior. She did the US 04/19/2023. Did you want another US prior to FU in 03/2024? Pended if needed. Can you advise? Jaime Bowie MA documented in this encounter [facility] 09-29-2023 Note HNO ID: [id number] Author: JONATHAN AGUILA MD Service: ? Author [...] to establish with me as her previous admiralty lawyer in [place] was not having follow-up appointments that they [...] block, left CAD (coronary artery disease) Cardiomyopathy ([facility]) CHF (congestive heart failure) ([facility]) COVID-19 08/28/2020 Decubitus ulcer, stage 2 ([facility]) 09/15/2015 Essential hypertension 07/20/2016 Gram-negative sepsis, unspecified ([facility]) 09/15/2015 UTI HTN (hypertension) Hyperlipidemia 07/20/2016 Impaired fasting glucose 07/25/2016 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 Aramis Nielson, Neurology Seizure disorder ([facility]) 03/2013 Shortness of breath Stroke (cerebrum) ([facility]) 2015 recurrent Stroke ([facility]) 04/22/2013 aphasia,left facial droop PAST SURGICAL HISTORY [...] No Known All (more content not included)... [facility] 06-10-2023 History of Past i llness Narrative [...] of this encounter (statuses as of 12/09/2023) [facility]10-12[facility]2023 History of Present illness Narrative* Older, Moira, WASHATERIA ATTENDANT.BOOTMAKER HAND - 06/10/2023 10:10 AM EDT CC: Patient [...] block, left CAD (coronary artery disease) Cardiomyopathy ([facility]) CHF (congestive heart failure) ([facility]) COVID-19 08/28/2020 Decubitus ulcer, stage 2 ([facility]) 09/15/2015 Essential hypertension 07/20/2016 Gram-negative sepsis, unspecified ([facility]) 09/15/2015 UTI HTN (hypertension) Hyperlipidemia 07/20/2016 Impaired fasting glucose 07/25/2016 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 Aramis Nielson, Neurology Seizure disorder ([facility]) 03/2013 Shortness of breath Stroke (cerebrum) ([facility]) 2015 recurrent Stroke ([facility]) 04/22/2013 aphasia,left facial droop PAST SURGICAL HISTORY [...] Wt 74 kg (163 lb 1.6 oz) KsC745% BMI 28.00 kg/m Physical Exam Vitals reviewed. [...] plan. Moira Brandon APRN.CNP [facility] Miscellaneous Notes* Telephone Encounter - Melia Valentin Ma - 05/21/2023 11:39 AM EDT Order and demographics faxed to [facility] at [phone]. Melia Valentin Ma * Telephone Encounter - Sheila Munoz LPN - 05/19/2023 3:40 PM EDT Patient requesting order for an oxygen tank hanley for the back of a wheelchair to be faxed to [facility]. Sheila Munoz LPN documented [facility] encounter[facility]09[facility]23 Miscellaneous Notes* Telephone Encounter - Sheila Munoz LPN - 05/19/2023 12:55 PM EDT Last office visit: 03/04/2023 Appt: 06/10/2023 Sheila Munoz LPN [facility] History of Present illness Narrative* Ny [...] 19, 2023 4:22 PM documented in this encounterL[facility] History of Present illness Narrative* Wilbur Youssef MD - 04/15/2023 11:53 AM EDT Images from the original note were not included. Heart , Vascular [facility] Thoracic [place] DEPARTMENT OF VASCULAR SURGERY VASCULAR SURGERY INITIAL CONSULT/ H+P SERVICE DATE: 04/15/2023 SERVICE TIME: 11:53 AM PRIMARY CARE PHYSICIAN: Lenin Bhatt MD REFERRING PROVIDER: Pavan Mcclure DPM [address] [facility] [id number] Consult requested for an opinion regarding the [...] block, left CAD (coronary artery disease) Cardiomyopathy ([facility]) CHF (congestive heart failure) ([facility]) COVID-19 08/28/2020 Decubitus ulcer, stage 2 ([facility]) 09/15/2015 Essential hypertension 07/20/2016 Gram-negative sepsis, unspecified ([facility]) 09/15/2015 UTI HTN (hypertension) Hyperlipidemia 07/20/2016 Impaired fasting glucose 07/25/2016 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 Aramis Nielson, Neurology Seizure disorder ([facility]) 03/2013 Shortness of breath Stroke (cerebrum) ([facility]) 2015 recurrent Stroke ([facility]) 04/22/2013 aphasia,left facial droop PAST SURGICAL HISTORY [...] the plan as outlined. documented in [facility] encounterL[facility]08[facility]16[facility]23 Miscellaneous Notes* Telephone Encounter - Lenin Bhatt MD - 04/14/2023 1:46 PM EDT Please fax letter. documented in this encounterLicking [facility]07-25-2023 Miscellaneous Notes* Letter - Coordinator, Mammography - 03/23/2023 8:46 AM EDT March 24, 2023 PID: [id number] Dalia Lopez [address] [place] [address] Dear Ms. Lopez, We are pleased to [...] report will be kept on file at [facility] as part of your permanent medical record and are available for your continuing care. Thank you for allowing us to help in meeting your health care needs. Sincerely, Dr. De Anda Interpreting Radiologist [facility] (Normal over 40) documented in this encounterLicking [facility]07-24-2023 History of Present illness Narrative* Felicia [...] 22, 2023 1:59 PM documented in this encounterLicking [facility]07[facility] History of Present illness Narrative* Pavan [...] block, left CAD (coronary artery disease) Cardiomyopathy ([facility]) CHF (congestive heart failure) ([facility]) COVID-19 08/28/2020 Decubitus ulcer, stage 2 ([facility]) 09/15/2015 Essential hypertension 07/20/2016 Gram-negative sepsis, unspecified ([facility]) 09/15/2015 UTI HTN (hypertension) Hyperlipidemia 07/20/2016 Impaired fasting glucose 07/25/2016 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 Aramis Nielson, Neurology Seizure disorder ([facility]) 03/2013 Shortness of breath Stroke (cerebrum) ([facility]) 2015 recurrent Stroke (HCC) 04/22/2013 aphasia,left facial [...] q8 Pavan Mcclure DPM Podiatry [address] [facility] [address] Dept: [phone] Dept * Jesika Roblero LPN - 03/12/2023 10:35 AM EDT AMB ROOMING INTAKE FLOWSHEET DATA Patient presents with: Left Foot - New, Pain, Swelling, nail deformity Right Foot - New, Pain, Swelling, nail deformity Patient present to office with son. Jesika Roblero LPN documented in [facility] encounterL[facility]07[facility] History of Present illness Narrative* Supriya [...] 12, 2023 10:16 AM documented in this encounterLicking [facility]07-06-[facility]23 History of Present illness Narrative* Lenin Bhatt MD - 03/04/2023 5:47 PM EDT This note was created using Optisenser[employer]. Subjective Dalia Lopez is a 72 year [...] (HCC) - ICD9: 707.03, 707.22, ICD10: L89.152 [facility]. 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 Aramis Nielson, Neurology Seizure disorder ([facility]) 03/2013 Shortness of breath Stroke (cerebrum) ([facility]) 2016 recurrent Stroke ([facility]) 04/22/2013 aphasia,left facial droop PAST SURGICAL HISTORY [...] seen: Dr. Jonathan Aguila, cardiology. Dr. Aramis Cheng,neurology. End of Live Planning discussed including patients [...] screening Lenin Bhatt MD documented in this encounterL[facility]06-29-2023 Miscellaneous Notes* Telephone Encounter - Sheila [...] you. Sheila Munoz LPN documented in this encounterLicking [facility]02-28-2023 Miscellaneous Notes* Telephone Encounter - M [...] you. Sherrie Guadarrama RN documented in this encounterLicking [facility] Hospital01-30-2023 History of Present illness Narrative* Aramis Cheng MD - 09/28/2022 1:47 PM EST NEUROLOGY Outpatient Follow-Up [facility] [address], [address] [place] [id number] (office) / [phone] (fax) Patient Name: Dalia Lopez : 1950 MR #: [id number] Date of Neurology Follow-up: 09/28/22 Name of [...] MD, ABPN, FAСВЕТЛАНА Adult Neurologist & Epileptologist [facility] Neurological Physicians [facility] Comprehensive Epilepsy Center A Level 4, NAEC-Certified Epilepsy Center documented in this [id number] Telephone encounter Note* Telephone Encounter - Kristine Downing RN - 08/04/2022 10:59 AM EST Patients son/POA called to request that we send a script for the patients Keppra 500 mg twice a dayto the [facility] as she is no longer using the [facility]. He is also requesting that we let him know the date and time of patients upcoming appointment with Dr. Cheng. Called patients son and let him know that we will have a script sent to the [facility] and that patients appointment is on 08/14 at 11:00 AM and encouraged him to call with any questions or concerns. Dr. Cheng- See attached script for Keppra 500 mg twice a day. [id number] Miscellaneous Notes* Telephone Encounter - Kristine Downing RN - 08/04/2022 10:59 AM EST Patients son/POA called to request that we send a script for the patients Keppra 500 mg twice a dayto the [facility] as she is no longer using the [facility]. He is also requesting that we let him know the date and time of patients upcoming appointment with Dr. Cheng. Called patients son and let him know that we will have a script sent to the [facility] and that patients appointment is on 08/14 at 11:00 AM and encouraged him to call with any questions or concerns. Dr. Cheng- See attached script for Keppra 500 mg twice a day. documented in this [id number] Miscellaneous Notes* Telephone Encounter - Yohan Bustillo Ma - 08/03/2022 4:14 PM EST Spoke with patient's son William - please send to [facility] - no longer using [facility]. * Telephone Encounter - Moira Brandon APRN.CNP - 08/03/2022 4:04 PM EST Patient was getting prescriptions from [facility], does she want them from [facility] now? Moira Brandon APRN.CNP * Telephone Encounter [...] notify patient. Lorri Woods documented in this encounterLicking [facility] Hospital12-05-2022 Miscellaneous Notes* Telephone Encounter - Yohan [...] pharmacy. Yohan Bustillo Ma documented in this encounterLicking [facility] Hospital12-02-2022 Miscellaneous Notes* Telephone Encounter - Suha [...] medication: Not applicable Please advise. Thank you. Bettie Michaud documented in this encounterLicking [facility] Hospital11-22-2022 Miscellaneous Notes* Telephone Encounter - April Vora LPN - 07/21/2022 7:03 AM EST Patient's request for medication is as follows: Requested Prescriptions Pending Prescriptions Disp Refills spironolactone (ALDACTONE) 25 mg tablet [Pharmacy Med Name: Spironolactone 25mg Tablet] 90 tablet 3 Sig: Take 1 tablet by mouth daily. Last seen 06/10/2022. Follow up scheduled for 07/07/2023. Prescription(s) as above. Please process accordingly. April Vora LPN documented in this encounterLicking [facility] Hospital11-11-2022 Miscellaneous Notes* Telephone Encounter - Moira [...] 07/16. Edmund Gomes RN documented in this encounterLicking [facility] Hospital11-02-2022 Miscellaneous Notes* Telephone Encounter - Divya Ibanez RN - 07/01/2022 12:57 PM EDT Last Office Visit: 12/12/2021 Future Office Visit: 07/01/2022 Requested Prescriptions Pending Prescriptions Disp Refills atorvastatin (LIPITOR) 20 mg tablet 90 tablet 3 Sig: Take 1 tablet by mouth once daily. Date of Last Labs: 12/15/2021 documented in this encounterLicking [facility] Hospital10-12-2022 History of Present illness Narrative* Jonathan [...] to establish with me as her previous admiralty lawyer in [place] was not having follow-upappointments that they could [...] of left kidney PVD (peripheral vascular disease) ([facility]) 07/20/2016 Seizure as late effect of cerebrovascular accident (CVA) ([facility]) 07/20/2016 Dr. Aramis Nielson, Neurology Seizure disorder ([facility]) 03/2013 Shortness of breath Stroke (cerebrum) ([facility]) 2015 recurrent Stroke ([facility]) 04/22/2013 aphasia,left facial droop PAST SURGICAL HISTORY [...] once daily. Multivitamin daily - chelle tab. [facility] # [id number] carvedilol (COREG) 12.5 mg tablet Take 1 [...] oxygen. Jonathan Aguila MD documented in this encounterLicking [facility] Hospital10-06-2022 Miscellaneous Notes* Telephone Encounter - Gloria Martinez RN - 06/04/2022 12:45 PM EDT Sherman arechiga Keron called in asking about the Pts Multivitamin. Let him know that it was sent in yesterday at 810 am, and their pharmacy had confirmed it. He said he will check to see if it had been received. documented in this encounterLicking Memorial Hospital10-05-2022 Miscellaneous Notes* Telephone Encounter - Vanita Easton RN - 06/03/2022 11:15 AM EDT Patient's son William returned call and given provider's message below and patient verbalized understanding. Janice Easton RN * Telephone Encounter - Yohan Bustillo Ma - 06/03/2022 10:36 AM EDT Left message to call office. 06/03/2022 10:36 AM Letter taken to Medical Records for picker packer. Please advise William. * Telephone Encounter - Patience Ridley LPN - 06/03/2022 9:10 AM EDT Pt's son William calling to request a letter for pt for heat assistance through [employer]. William said letter is to state pt is disabled & why she is disabled. William states pt had a stroke, has CHF etc. Please call William if/when ready & he'll picker packer in med recs. Patience Ridley LPN documented in this encounterLicking Memorial Hospital10-04-2022 Miscellaneous Notes* Telephone Encounter - Nelly Corey [place] - 06/02/2022 12:39 PM EDT Patient has been identified by name and date of : Yes Requested Prescriptions Pending Prescriptions Disp Refills multivitamin tablet 90 tablet 3 Sig: Take 1 tablet by mouth once daily. Multivitamin daily - chelle tab. [facility] # [id number] RX INSTRUCTIONS: Patient aware RX will be sent to pharmacy. No need to notify patient. [facility] documented in this encounter[facility]22 Miscellaneous Notes* Telephone Encounter - April Vora LPN - 05/18/2022 7:01 AM EDT Patient's request for medication is as follows: Requested Prescriptions Pending Prescriptions Disp Refills carvedilol (COREG) 12.5 mg tablet [Pharmacy Med Name: Carvedilol 12.5mg Tablet] 180 tablet 0 Sig: Take 1 tablet by mouth twice daily with meals. Last seen 04/16/2021 in [place]. Follow up scheduled for 06/10/2022. Prescription(s) as above. Please process accordingly. April Vora LPN documented in this encounterLicking [facility] Hospital08-19-2022 Miscellaneous Notes* Telephone Encounter - CARLEEN Russ - 04/17/2022 9:01 AM EDT Patient sees Dr Aguila in [place]. Spoke with patient's son, and provided him the number to the [place] location. Felecia Walter April 17, 2022 9:02 AM * Telephone Encounter - Beti Farias LPN - 04/17/2022 8:00 AM EDT Please call this Dr Aguila patient to make a follow up visit with Dr Aguila or [employer]. She was last seen on 04-16-2022 and was to be seen again in September of 2021. Thank you, Beti Farias LPN documented in this encounterLicking [facility] Hospital08-19-2022 Miscellaneous Notes* Telephone Encounter - Beti Farias LPN - 04/17/2022 7:58 AM EDT Patient's pharmacy requesting new refill. Requested Prescriptions Pending Prescriptions Disp Refills spironolactone (ALDACTONE) 25 mg tablet [Pharmacy Med Name: Spironolactone 25mg Tablet] 90 tablet 0 Sig: Take 1 tablet by mouth daily. She saw Dr Aguila on 04-16-2021 and was to return in September of 2021. I sent a note to clerical staff to call the patient to make an appointment. Thank you, Beti Farias LPN documented in this encounterLicking [facility]08-08-2022 Miscellaneous Notes* Telephone Encounter - VÍCTOR [...] and advise. VÍCTOR Alexandre documented in this encounterLicking [facility] Hospital08-05-2022 Miscellaneous Notes* Telephone Encounter - Colette [...] Urine cx+ abx sent documented in this encounterLicking [facility]08-03-2022 History of Present illness Narrative* Zachariah [...] once daily. Multivitamin daily - chelle tab. 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 Aramis Nielson, Neurology Seizure disorder ([facility]) 03/2013 Shortness of breath Stroke (cerebrum) ([facility]) 2015 recurrent Stroke ([facility]) 04/22/2013 aphasia,left facial droop FAMILY HISTORY Problem [...] Gonzales Jr, MD 04/01/2022 documented in this encounterLicking [facility] Hospital05-16-2022 Miscellaneous Notes* Telephone Encounter - Sheila [...] son when done so he can picker packer. Time sensitive. Elmira Tam LPN documented in this encounterLicking [facility] Hospital05-10-2022 Miscellaneous Notes* Telephone Encounter - Sheila [...] notify patient. Rosina Alfaro documented in this encounterLicking Memorial Hospital05-05-2022 Miscellaneous Notes* Telephone Encounter - Tsering [...] asking if medication could be sent to [facility] in [place]. Please call [email or web address] number and advise. documented in this encounterLicking [facility] Hospital04-20-2022 Miscellaneous Notes* Telephone Encounter - Yohan Bustillo Ma - 12/17/2021 9:14 AM EDT Patient's son notified, verbalized understanding. Yohan Bustillo Ma * Telephone Encounter - Moira Brandon APRN.CNP - 12/17/2021 8:22 AM EDT Labs were normal except for anemia. Check iron levels Moira Brandon APRN.CNP documented in this encounterLicking Memorial Hospital04-15-2022 History of Present illness Narrative* Lenin Bhatt MD - 12/12/2021 3:00 PM EDT This note was created using Optisenser[employer]. Subjective Dalia Lopez is a 71 year [...] Accident (Cva) (Hcc) Pvd (Peripheral Vascular Disease) ([facility]) Acquired Hypothyroidism Hyperlipidemia Anxiety Associated With Depression Impaired Fasting Glucose Mass of Left Kidney Iron Deficiency Anemia Urinary Incontinence Bronchospasm Acute On Chronic Respiratory Failure With Hypoxemia ([facility]) Ischemic Cardiomyopathy Chronic Systolic (Congestive) Heart Failure ([facility]) Current Moderate Episode of Major Depressive Disorder ([facility]) Current Outpatient Medications Medication Sig sertraline (ZOLOFT) [...] once daily. Multivitamin daily - chelle tab. [facility] # [id number] spironolactone (ALDACTONE) 25 mg tablet Take 1 [...] Controlled. Lenin Bhatt MD documented in this encounterLicking [facility] Hospital04-13-2022 Miscellaneous Notes* Telephone Encounter - Sheila [...] Munoz LPN * Telephone Encounter - Jo Pittman Pss - 12/10/2021 12:39 PM EDT Patient has been identified by name and date of : Yes Pending Prescriptions Disp Refills SERTRALINE 100 MG TABLET 45 tablet 3 Sig: Take 1.5 tablets by mouth once daily. VIVIEN: No RX INSTRUCTIONS: Patient aware RX will be sent to pharmacy. No need to notify patient. Jo Pittman Pss documented in this [facility]03-25-2022 Miscellaneous Notes* Telephone Encounter - Ermias Contreras [...] appointment. April Vora LPN documented in this [facility]03-25-2022 Miscellaneous Notes* Telephone Encounter - April Vora [...] accordingly. April Vora LPN documented in this [facility]12-16-2021 History of Present illness Narrative* Aramis Cheng MD - 08/14/2021 10:56 AM EST NEUROLOGY Outpatient Follow-Up [facility] [address], [address] [place] [address] (office) / [phone] (fax) Patient Name: Dalia Lopez : 1950 MR #: [id number] Date of Neurology Follow-up: 08/14/21 Name of [...] MD, ABPN, FAСВЕТЛАНА Adult Neurologist & Epileptologist [facility] Comprehensive Epilepsy [facility] A Level 4, NAEC-Certified Epilepsy Center documented in this [id number] History of Past illness Narrative* Problem Noted Date Resolved Date Heart failure 08/31/2018 09/27/2020 Dizziness and giddiness 08/31/2018 11/15/19 19 Sebaceous cyst 09/19/2016 06/30/2017 documented as of this encounter (statuses as of 11/21/2021) [facility] of Past illness Narrative* Problem Noted Date Resolved Date Heart failure 08/31/2018 09/27/2020 Dizziness and giddiness 08/31/2018 11/15/19 19 Sebaceous cyst 09/19/2016 06/30/2017 documented as of this encounter (statuses as of 11/21/2021) [facility] of [facility] illness Narrative* Problem Noted Date Resolved Date Heart failure 08/31/2018 09/27/2020 Dizziness and giddiness 08/31/2018 11/15/19 19 Sebaceous cyst 09/19/2016 06/30/2017 documented as of this encounter (statuses as of 12/10/2021) [facility] Narrative* Problem Noted Date Resolved Date Heart failure 08/31/2018 09/27/2020 Dizziness and giddiness 08/31/2018 11/15/19 19 Sebaceous cyst 09/19/2016 06/30/2017 documented as of this encounter (statuses as of 12/12/2021) [facility] Narrative* Problem Noted Date Resolved Date Heart failure 08/31/2018 09/27/2020 Dizziness and giddiness 08/31/2018 11/15/19 19 Sebaceous cyst 09/19/2016 06/30/2017 documented as of this encounter (statuses as of 12/17/2021) [facility] Narrative* Problem Noted Date Resolved Date Heart failure 08/31/2018 09/27/2020 Dizziness and giddiness 08/31/2018 11/15/19 19 Sebaceous cyst 09/19/2016 06/30/2017 documented as of this encounter (statuses as of 01/06/2022) [facility] Narrative* Problem Noted Date Resolved Date Heart failure 08/31/2018 09/27/2020 Dizziness and giddiness 08/31/2018 11/15/19 19 Sebaceous cyst 09/19/2016 06/30/2017 documented as of this encounter (statuses as of 01/12/2022) [facility] Narrative* Problem Noted Date Resolved Date Heart failure 08/31/2018 09/27/2020 Dizziness and giddiness 08/31/2018 11/15/19 19 Sebaceous cyst 09/19/2016 06/30/2017 documented as of this encounter (statuses as of 04/01/2022) [facility] Narrative* Problem Noted Date Resolved Date Heart failure 08/31/2018 09/27/2020 Dizziness and giddiness 08/31/2018 11/15/19 19 Sebaceous cyst 09/19/2016 06/30/2017 documented as of this encounter (statuses as of 04/03/2022) [facility] Narrative* Problem Noted Date Resolved Date Heart failure 08/31/2018 09/27/2020 Dizziness and giddiness 08/31/2018 11/15/19 19 Sebaceous cyst 09/19/2016 06/30/2017 documented as of this encounter (statuses as of 04/07/2022) [facility] Narrative* Problem Noted Date Resolved Date Heart failure 08/31/2018 09/27/2020 Dizziness and giddiness 08/31/2018 11/15/19 19 Sebaceous cyst 09/19/2016 06/30/2017 documented as of this encounter (statuses as of 04/17/2022) [facility] Narrative* Problem Noted Date Resolved Date Heart failure 08/31/2018 09/27/2020 Dizziness and giddiness 08/31/2018 11/15/19 19 Sebaceous cyst 09/19/2016 06/30/2017 documented as of this encounter (statuses as of 04/17/2022) [facility] Narrative* Problem Noted Date Resolved Date Heart failure 08/31/2018 09/27/2020 Dizziness and giddiness 08/31/2018 11/15/19 19 Sebaceous cyst 09/19/2016 06/30/2017 documented as of this encounter (statuses as of 05/18/2022) [facility]arrative* Problem Noted Date Resolved Date Heart failure 08/31/2018 09/27/2020 Dizziness and giddiness 08/31/2018 11/15/19 19 Sebaceous cyst 09/19/2016 06/30/2017 documented as of this encounter (statuses as of 05/25/2022) [facility]* Problem Noted Date Resolved Date Heart failure 08/31/2018 09/27/2020 Dizziness and giddiness 08/31/2018 11/15/19 19 Sebaceous cyst 09/19/2016 06/30/2017 documented as of this encounter (statuses as of 06/03/2022) [facility]* Problem Noted Date Resolved Date Heart failure 08/31/2018 09/27/2020 Dizziness and giddiness 08/31/2018 11/15/19 19 Sebaceous cyst 09/19/2016 06/30/2017 documented as of this encounter (statuses as of 06/03/2022) [facility]* Problem Noted Date Resolved Date Heart failure 08/31/2018 09/27/2020 Dizziness and giddiness 08/31/2018 11/15/19 19 Sebaceous cyst 09/19/2016 06/30/2017 documented as of this encounter (statuses as of 06/04/2022) [facility]* Problem Noted Date Resolved Date Heart failure 08/31/2018 09/27/2020 Dizziness and giddiness 08/31/2018 11/15/19 19 Sebaceous cyst 09/19/2016 06/30/2017 documented as of this encounter (statuses as of 06/10/2022) [facility]* Problem Noted Date Resolved Date Heart failure 08/31/2018 09/27/2020 Dizziness and giddiness 08/31/2018 11/15/19 19 Sebaceous cyst 09/19/2016 06/30/2017 documented as of this encounter (statuses as of 07/01/2022) [facility]* Problem Noted Date Resolved Date Heart failure 08/31/2018 09/27/2020 Dizziness and giddiness 08/31/2018 11/15/19 19 Sebaceous cyst 09/19/2016 06/30/2017 documented as of this encounter (statuses as of 07/21/2022) [facility]* Problem Noted Date Resolved Date Heart failure 08/31/2018 09/27/2020 Dizziness and giddiness 08/31/2018 11/15/19 19 Sebaceous cyst 09/19/2016 06/30/2017 documented as of this encounter (statuses as of 07/31/2022) [facility]* Problem Noted Date Resolved Date Heart failure 08/31/2018 09/27/2020 Dizziness and giddiness 08/31/2018 03/18/20 19 Sebaceous cyst 09/19/2016 06/30/2017 documented as of this encounter (statuses as of 08/03/2022) [facility]* Problem Noted Date Resolved Date Heart failure 08/31/2018 09/27/2020 Dizziness and giddiness 08/31/2018 11/15/19 19 Sebaceous cyst 09/19/2016 06/30/2017 documented as of this encounter (statuses as of 08/03/2022) [facility]* Problem Noted Date Resolved Date Heart failure 08/31/2018 09/27/2020 Dizziness and giddiness 08/31/2018 11/15/19 19 Sebaceous cyst 09/19/2016 06/30/2017 documented as of this encounter (statuses as of 08/05/2022) [facility]* Problem Noted Date Resolved Date Heart failure 08/31/2018 09/27/2020 Dizziness and giddiness 08/31/2018 11/15/19 19 Sebaceous cyst 09/19/2016 06/30/2017 documented as of this encounter (statuses as of 10/29/2022) [facility]* Problem Noted Date Resolved Date Heart failure 08/31/2018 09/27/2020 Dizziness and giddiness 08/31/2018 11/15/19 19 Sebaceous cyst 09/19/2016 06/30/2017 documented as of this encounter (statuses as of 02/15/2023) [facility]* Problem Noted Date Resolved Date Heart failure 08/31/2018 09/27/2020 Dizziness and giddiness 08/31/2018 11/15/19 19 Sebaceous cyst 09/19/2016 06/30/2017 documented as of this encounter (statuses as of 02/26/2023) [facility]* Problem Noted Date Resolved Date Heart failure 08/31/2018 09/27/2020 Dizziness and giddiness 08/31/2018 11/15/19 19 Sebaceous cyst 09/19/2016 06/30/2017 documented as of this encounter (statuses as of 02/27/2023) [facility]* Problem Noted Date Resolved Date Heart failure 08/31/2018 09/27/2020 Iron deficiency anemia 08/31/2018 Dizziness and giddiness 08/31/2018 11/15/19 19 Sebaceous cyst 09/19/2016 06/30/2017 documented as of this encounter (statuses as of 03/05/2023) [facility]* Problem Noted Date Diagnosed Date Resolved Date Heart failure 08/31/2018 09/27/2020 Iron deficiency anemia 08/31/201803/05 Dizziness and giddiness 08/31/201810/28 Sebaceous cyst 09/19/2016 06/30/2017 documented as of this encounter (statuses as of 03/09/2023) [facility]* Problem Noted Date Diagnosed Date Resolved Date Heart failure 08/31/2018 09/27/2020 Iron deficiency anemia 08/31/201803/05 Dizziness and giddiness 08/31/201810/28 Sebaceous cyst 09/19/2016 06/30/2017 documented as of this encounter (statuses as of 03/12/2023) [facility]* Problem Noted Date Diagnosed Date Resolved Date Heart failure 08/31/2018 09/27/2020 Iron deficiency anemia 08/31/201803/05 Dizziness and giddiness 08/31/201810/28 Sebaceous cyst 09/19/2016 06/30/2017 documented as of this encounter (statuses as of 03/25/2023) [facility]* Problem Noted Date Diagnosed Date Resolved Date Heart failure 08/31/2018 09/27/2020 Iron deficiency anemia 08/31/201803/05 Dizziness and giddiness 08/31/201810/28 Sebaceous cyst 09/19/2016 06/30/2017 documented as of this encounter (statuses as of 04/15/2023) [facility]* Problem Noted Date Diagnosed Date Resolved Date Heart failure 08/31/2018 09/27/2020 Iron deficiency anemia 08/31/201803/05 Dizziness and giddiness 08/31/201810/28 Sebaceous cyst 09/19/2016 06/30/2017 documented as of this encounter (statuses as of 04/20/2023) [facility]* Problem Noted Date Diagnosed Date Resolved Date Heart failure 08/31/2018 09/27/2020 Iron deficiency anemia 08/31/201803/05 Dizziness and giddiness 08/31/201810/28 Sebaceous cyst 09/19/2016 06/30/2017 documented as of this encounter (statuses as of 05/19/2023) [facility]* Problem Noted Date Diagnosed Date Resolved Date Heart failure 08/31/2018 09/27/2020 Iron deficiency anemia 08/31/201803/05 Dizziness and giddiness 08/31/201810/28 Sebaceous cyst 09/19/2016 06/30/2017 documented as of this encounter (statuses as of 05/21/2023) [facility]* Problem Noted Date Diagnosed Date Resolved Date Heart failure 08/31/2018 09/27/2020 Iron deficiency anemia 08/31/201803/05 Dizziness and giddiness 08/31/201810/28 Sebaceous cyst 09/19/2016 06/30/2017 documented as of this encounter (statuses as of 06/10/2023) [facility]* Problem Noted Date Diagnosed Date Resolved Date Heart failure 08/31/2018 09/27/2020 Iron deficiency anemia 08/31/201803/05 Dizziness and giddiness 08/31/201810/28 Sebaceous cyst 09/19/2016 06/30/2017 documented as of this encounter (statuses as of 07/04/2023) [facility]* Problem Noted Date Diagnosed Date Resolved Date Heart failure 08/31/2018 09/27/2020 Iron deficiency anemia 08/31/201803/05 Dizziness and giddiness 08/31/201810/28 Sebaceous cyst 09/19/2016 06/30/2017 documented as of this encounter (statuses as of 07/04/2023) [facility]* Problem Noted Date Diagnosed Date Resolved Date Heart failure 08/31/2018 09/27/2020 Iron deficiency anemia 08/31/201803/05 Dizziness and giddiness 08/31/201810/28 Sebaceous cyst 09/19/2016 06/30/2017 documented as of this encounter (statuses as of 07/04/2023) [facility]* Problem Noted Date Diagnosed Date Resolved Date Heart failure 08/31/2018 09/27/2020 Iron deficiency anemia 08/31/201803/05 Dizziness and giddiness 08/31/201810/28 Sebaceous cyst 09/19/2016 06/30/2017 documented as of this encounter (statuses as of 12/02/2023) [facility] note* Diagnosis 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, without mention of intractable epilepsy History of stroke Transient ischemic attack (TIA), and cerebral infarction without residual deficits LBBB (left bundle branch block) Other left bundle branch block Primary hypertension Unspecified essential hypertension documented in this encounter [facility] note* Diagnosis Acute on chronic respiratory failure with hypoxemia (HCC)- Primary Chronic systolic (congestive) heart failure (HCC) PVD (peripheral vascular disease) ([facility]) Peripheral vascular disease, unspecified Impaired fasting glucose Hyperlipidemia, unspecified hyperlipidemia type Acquired hypothyroidism Unspecified hypothyroidism Current moderate episode of major depressive disorder, unspecified whether recurrent (HCC) documented in this encounter [facility] note* Diagnosis Anemia, unspecified type- Primary documented in this encounter [facility] note* Diagnosis Urinary tract infection symptoms- Primary Other symptoms involving urinary system documented in this encounter [facility] note* Diagnosis Renal mass- Primary Unspecified disorder of kidney and ureter Dysuria documented in this encounter [facility] note* Diagnosis Chronic systolic (congestive) heart failure (HCC) documented in this encounter [facility] note* Diagnosis Encounter for screening mammogram for breast cancer documented in this encounter [facility] note* Diagnosis Cardiomyopathy, nonischemic (HCC)- Primary Other primary cardiomyopathies Chronic combined systolic and diastolic heart failure (HCC) Chronic combined systolic and diastolic heart failure [facility] Diagnosis Chronic systolic (congestive) heart failure (HCC) [facility]* Diagnosis 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 Unspecified late effects of cerebrovascular disease documented in this encounter [facility] note* Diagnosis 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 Unspecified late effects of cerebrovascular disease Chronic systolic (congestive) heart failure (HCC) Heart failure, unspecified HF chronicity, unspecified heart failure type (HCC) Acute on chronic respiratory failure with hypoxemia (HCC) Bronchospasm Acute bronchospasm [facility]* Diagnosis 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, without mention of intractable epilepsy documented in this encounter [facility] note* Diagnosis 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, without mention of intractable epilepsy History of stroke Transient ischemic attack (TIA), and cerebral infarction without residual deficits Primary hypertension Unspecified essential hypertension Pure hypercholesterolemia documented in this encounter [facility] note* Diagnosis 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)- Primary Hyperlipidemia, unspecified hyperlipidemia type Essential hypertension Unspecified essential hypertension Acquired hypothyroidism Unspecified hypothyroidism Impaired fasting glucose documented in this encounter [facility] note* Diagnosis Medicare annual wellness visit, subsequent- [...] Impaired fasting glucose [facility]* Diagnosis Callus of foot- Primary Corns and callosities Dermatophytosis of nail Pain in toes of both feet PVD (peripheral vascular disease) ([facility]) Peripheral vascular disease, unspecified [facility] Diagnosis Peripheral arterial disease (HCC)- Primary Peripheral vascular disease, unspecified [facility]* Diagnosis Oxygen dependent- Primary Dependence on supplemental oxygen [facility] Diagnosis Chronic bronchitis, unspecified chronic bronchitis type (HCC)- Primary Current moderate episode of major depressive disorder, unspecified whether recurrent (HCC) Acute on chronic respiratory failure with hypoxemia (HCC) Bilateral impacted cerumen Impacted cerumen [facility] Diagnosis Chronic systolic (congestive) heart failure (HCC) [facility]* Diagnosis Renal mass Unspecified disorder of kidney and ureter [facility]* Diagnosis Encounter for screening mammogram for breast cancer [facility]* Diagnosis Renal [...] Coronary atherosclerosis of unspecified type of vessel, [place] or graft [facility]* Diagnosis Pain in both lower extremities [facility]* Diagnosis Medicare [...] for breast cancer [facility] Diagnosis Kidney insufficiency- Primary Unspecified disorder of kidney and ureter Anemia, unspecified type Seizure (HCC) Other convulsions [facility]* Diagnosis Hyperlipidemia, unspecified hyperlipidemia type [facility] Diagnosis Renal mass Unspecified disorder of kidney and ureter [facility] Pain in both lower extremities [facility] Diagnosis 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 Unspecified late effects of cerebrovascular disease Chronic systolic (congestive) heart failure (HCC) [facility] Diagnosis Pain in both lower extremities [facility] Diagnosis Urinary incontinence, unspecified type- Primary documented in this encounter [facility] for referral (narrative)* Diagnostic Procedure Only (Routine) - Pending Review Specialty Diagnoses / Procedures Referred By Contac t Referred To Contact US IMAGING Diagnoses Renal mass Procedures US KIDNEY/BLADDER US RETROPERITONEAL REAL TIME W/IMAGE COMPLETE Zachariah Gonzales Jr., MD [address] [place] [address] Us Imaging Referral ID Status Reason Start Date Expiration Date Visits Requested Visits Authorized [id number] Pending Review Auto-Generat ed Referral 03/31/2022 04/30/2023 1 1 [facility] for referral (narrative)* Diagnostic Procedure Only (Routine) - Pending Review Specialty Diagnoses / Procedures Referred By Contac t Referred To Contact BR IMAGING Diagnoses Encounter for screening mammogram for breast cancer Procedures RUSSELL SCREENING SCREENING MAMMOGRAPHY BI 2-VIEW BREAST INC CAD Lenin Bhatt MD [address] [place] [address] Br Imaging [address] [place] [address] Referral ID Status Reason Start Date Expiration Date Visits Requested Visits Authorized [id number] Pending Review Auto-Generat ed Referral 05/20/2022 06/19/2023 1 1 [facility] for referral (narrative)* Outpatient Procedure (Routine) - Closed Specialty Diagnoses / Procedures Referred By Contac t Referred To [facility] Diagnoses Cardiomyopathy, nonischemic (HCC) Procedures ECG COMPLETE ECG ROUTINE ECG W/LEAST 12 LDS W/I&R Jonathan Aguila MD [address] [place] [address] [place] [address] [place] [address] Referral ID Status Reason Start Date Expiration Date V isits Requested Visits Authorized [id number] Closed Auto-Generate d Referral 06/10/2022 06/10/2023 1 1 [facility] for referral (narrative)* Outpatient Procedure (Routine) - Authorized Specialty Diagnoses / Procedures Referred By Contac t Referred To Contact [facility] [place] Diagnoses Dermatophytosis of nail PVD (peripheral vascular disease) (HCC) Procedures PVR ANK PRESS VINAY VAS LAB NON-INVAS PHYSIOLOGIC STD EXTREMITY ART 2 LEVEL Pavan Mcclure [address] [place] [address] [place] [address] [place] [id number] Referral ID Status Reason Start Date Expiration Date Visits Requested Visits Authorized [id number] Authorized Auto-Generat ed Referral 03/12/2023 03/11/2024 1 1 [facility] for referral (narrative)* Diagnostic Procedure Only (Routine) - Closed Specialty Diagnoses / Procedures Referred By Contac t Referred To Contact US IMAGING Diagnoses Renal mass Procedures US KIDNEY/BLADDER US RETROPERITONEAL REAL TIME W/IMAGE COMPLETE Zachariah Gonzales Jr., MD [address] [place] [address] Us Imaging [place] [address] Referral ID Status Reason Start Date Expiration Date V isits Requested Visits Authorized [id number] Closed Auto-Generate d Referral 03/31/2022 04/30/2023 1 1 [facility] for referral (narrative)* Diagnostic Procedure Only (Routine) - Closed Specialty Diagnoses / Procedures Referred By Iwona t Referred To Contact BR IMAGING Diagnoses Encounter for screening mammogram for breast cancer Procedures RUSSELL SCREENING SCREENING MAMMOGRAPHY BI 2-VIEW BREAST INC Lenin Yun MD [address] [place] [address] Br Imaging [address] [place] [address] Referral ID Status Reason Start Date Expiration Date V isits Requested Visits Authorized [id number] Closed Auto-Generate d Referral 05/20/2022 06/19/2023 1 1 [facility] for referral (narrative)* Diagnostic Procedure Only (Routine) - Pending Review Specialty Diagnoses / Procedures Referred By Iwona smith Referred To Contact US IMAGING Diagnoses Renal mass Procedures US KIDNEY/BLADDER US RETROPERITONEAL REAL TIME W/IMAGE COMPLETE Zachariah Gonzales Jr., MD [facility] [place] [address] Us Imaging [facility] Referral ID Status Reason Start Date Expiration Date Visits Requested Visits Authorized [id number] Pending Review Auto-Generat ed Referral 12/02/2023 12/28/2024 1 1 [facility] for visit Narrative* Diagnostic Procedure Only (Routine) - Closed Specialty Diagnoses / Procedures Referred By Iwona smith Referred To Contact BR IMAGING Diagnoses Encounter for screening mammogram for breast cancer Procedures RUSSELL SCREENING SCREENING MAMMOGRAPHY BI 2-VIEW BREAST INC Lenin Yun MD [address] [place] [address] Br Imaging [address] [place] [address] Referral ID Status Reason Start Date Expiration Date V isits Requested Visits Authorized [id number] Closed Auto-Generate d Referral 05/20/2022 06/19/2023 1 1 [facility] Assessments Diagnosis Localization-related epileps y (HCC) [...] Documents on File Type Date Recorded Patient Material Mixer Expl anation Advance Directives and Livin g Will 10/05/2019 2:13 PM Power of Detective Latest Code Status on File Code Status Date Activated Date Inactivated Comments Full Code - Unverified 12/10/2015 3:49 PM 12/12/2015 8:1 3 PM Full Code - Unverified 12/10/2015 2:21 PM 12/10/2015 3:4 9 PM Full Code 12/02/2015 6:03 PM 12/05/2015 11:06 PM Documents on File Type Date Recorded Patient Material Mixer Expl anation Power of Detective Advance Directives and Livin g Will 10/05/2019 2:13 PM Documents on File Type Date Recorded Patient Material Mixer Expl anation Advance Directive(s) 12/20/2018 8:41 AM Documents on File Type Date Recorded Patient Material Mixer Expl anation Advance Directive(s) 12/20/2018 8:41 AM Documents on File Type Date Recorded Patient Material Mixer Expl anation Power of Detective Latest Code Status on File Code Status [...] different from the original. NEUROLOGY Outpatient Follow-Up [facility] [address], [address] [place] [id number] (office) / [phone] (fax) Patient Name: Dalia Lopez : 1950 MR #: [id number] Date of Neurology Follow-up: 08/11/18 Name of [...] MD, ABPN, FAES Adult Neurologist & Epileptologist [facility] A Level 4, NAEC-Certified Epilepsy Center in this encounter* Aramis Cheng MD - 10/05/2019 2:51 PM EST NEUROLOGY Outpatient Follow-Up [facility] [address], [address] [place] [address] (office) / [phone] (fax) Patient Name: Dalia Lopez : 1950 MR #: [id number] Date of Neurology Follow-up: 10/05/19 Name of [...] Hypertension Hyperlipidemia Asymptomatic PVD (peripheral vascular disease) ([facility]) CHF (congestive heart failure) ([facility]) Home Medications: Current Outpatient Medications Medication Sig [...] MD, ABPN, FAСВЕТЛАНА Adult Neurologist & Epileptologist [facility] Neurological Physicians [facility] Comprehensive Epilepsy Center A [...] both feet Procedures CONSULT TO PODIATRY OFFICE/OUTPATIENT [facility] 60-74 MINUTES Lenin Bhatt MD [address] [place] [address] Referral ID Status Reason Start Date Expiration Date Visits Requested Visits Authorized [id number] Authorized PCP Requested Referral 03/04/2023 03/03/2024 1 1 Specialty Diagnoses / Procedures Referred By Contac t Referred To Contact Gerontology Diagnoses Aphasia, 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 (cerebrovascular accident) Abnormal mini-mental status exam Procedures CONSULT TO GERIATRICS OFFICE/OUTPATIENT [facility] 60 MINUTES Moira Hearn, WASHATERIA ATTENDANT.BOOTMAKER HAND [address] [place] [address] Referral ID Status Reason Start Date Expiration Date Visits Requested Visits Authorized [id number] Authorized PCP Requested Referral 03/14/2024 03/14/2025 1 1 Specialty Diagnoses / Procedures Referred By Contac t Referred To Contact Ophthalmology Diagnoses Encounter for routine eye and vision examination Procedures CONSULT TO OPHTHALMOLOGY OFFICE/OUTPATIENT [facility] 60 MINUTES Moira Hearn, WASHATERIA ATTENDANT.BOOTMAKER HAND [address] [place] [address] Referral ID Status Reason Start Date Expiration Date Visits Requested Visits Authorized [id number] Authorized PCP Requested Referral 03/14/2024 03/14/2025 1 1 Specialty Diagnoses / Procedures Referred By Iwona t Referred To Contact BR IMAGING Diagnoses Encounter for screening mammogram for breast cancer Procedures RUSSELL SCREENING W YUKI SCREENING DIGITAL BREAST TOMOSYNTHESIS BI SCREENING MAMMOGRAPHY BI 2-VIEW BREAST INC CAD Moira Hearn, WASHATERIA ATTENDANT.BOOTMAKER HAND [address] [place] [address] Br Imaging [address] [place] [address] Referral ID Status Reason Start Date Expiration Date Visits Requested Visits Authorized [id number] New Request Auto-Generat ed Referral 03/14/2024 04/13/2025 [...] HIGH MDM 60-74 MINUTES Lenin Bhatt MD [address] [place] [address] Referral ID Status Reason Start Date Expiration Date V isits Requested Visits Authorized [id number] Closed PCP Requested Referral 03/04/2023 03/03/2024 1 1 Reason Comments New Patient PMH: PAD She is on p lavix. Reason Comments Orders Reason Comments Follow Up Earache Reason Comments Radiology US Specialty Diagnoses / Procedures Referred By Contewa t Referred To Contact US IMAGING Diagnoses Renal mass Procedures US KIDNEY/BLADDER US RETROPERITONEAL REAL TIME W/IMAGE COMPLETE Zachariah Gonzales Jr., MD [address] [place] [address] [place] [id number] Referral ID Status Reason Start Date Expiration Date V isits Requested Visits Authorized [id number] Closed Auto-Generate d Referral 03/31/2022 04/30/2023 1 [...] TIME W/IMAGE COMPLETE Zachariah Gonzales Jr., MD [address] [place] [address] [place] [id number] Referral ID Status Reason Start Date Expiration Date V isits Requested Visits Authorized [id number] Closed Auto-Generate d Referral 12/02/2023 12/28/2024 1 1 Reason Onset Date Comments Refill Request 04/18/2024 Reason Comments Opened In Error Reason Onset Date Comments Refill Request 05/30/2024 Reason Onset Date Comments Refill Request 06/06/2024 Reason Comments Patient Update INFORMATION SOURCE (unrecogn ized section and content) DATE CREATED AUTHOR 12/20/2018 [facility] DATE CREATED AUTHOR AUTHOR'S ORGANIZ ATION 10/30/2019 [facility] (MD) DATE CREATED AUTHOR AUTHOR'S ORGANIZ ATION 09/29/2022 [facility] DATE CREATED AUTHOR AUTHOR'S ORGANIZ ATION 04/14/2024 [facility] DATE CREATED AUTHOR AUTHOR'S ORGANIZ ATION 06/14/2024 [facility] Care Teams (unrecognized sec tion and content) Sole Cementer Relationship Specialty Start Date End Date Lenin Bhatt MD [address] [place], [place] [id number] PCP - General Internal Medicine 02/03/17 Arlette Lorenzo MD [address] [place] [address] Referring Physician Obstetrics/Gynecology 02/26/15 Aramis Cheng MD [address] [place] [address] Jean-Paul Indra [address] [place] [address] Consulting Physician Neurology 09/25/15 Felecia Shultz MD [address] [facility] [address] [place] [address] Consulting Physician Urogynecology 09/25/15 Sole Cementer Relationship Specialty Start Date End Date Lenin Bhatt MD [address] [place] [address] PCP - General 10/18/02 Sole Cementer Relationship Specialty Start Date End Date Lenin Bhatt MD [address] [place] [address] PCP - General 10/18/02 Sole Cementer Relationship Specialty Start Date End Date Lenin Bhatt MD [address] [place] [address] PCP - General 10/18/02 Sole Cementer Relationship Specialty Start Date End Date Lenin Bhatt MD [address] [place] [address] PCP - General 10/18/02 Sole Cementer Relationship Specialty Start Date End Date Lenin Bhatt MD [address] [place] [address] PCP - General 10/18/02 Sole Cementer Relationship Specialty Start Date End Date Lenin Bhatt MD [address] [facility] [address] PCP - General 10/18/02 Sole Cementer Relationship Specialty Start Date End Date Lenin Bhatt MD [address] [place] [address] PCP - General 10/18/02 Sole Cementer Relationship Specialty Start Date End Date Lenin Bhatt MD [address] [place] [address] PCP - General 10/18/02 Sole Cementer Relationship Specialty Start Date End Date Lenin Bhatt MD [address] [place] [address] PCP - General 10/18/02 Sole Cementer Relationship Specialty Start Date End Date Lenin Bhatt MD [address] [place] [address] PCP - General 10/18/02 Sole Cementer Relationship Specialty Start Date End Date Lenin Bhatt MD [address] [place] [address] PCP - General 10/18/02 Sole Cementer Relationship Specialty Start Date End Date Lenin Bhatt MD [address] [place] [address] PCP - General 10/18/02 Sole Cementer Relationship Specialty Start Date End Date Lenin Bhatt MD [address] [place] [address] PCP - General 10/18/02 Sole Cementer Relationship Specialty Start Date End Date Lenin Bhatt MD [address] [place] [address] PCP - General 10/18/02 Sole Cementer Relationship Specialty [place] [address] [place] [address], [place] [address] PCP - General Internal Medicine 02/03/17 Arlette Lorenzo MD [address] [place], [place] [address] [place] [id number] Referring Physician Obstetrics/Gynecology 02/26/15 Aramis Cheng MD [address] [facility] [address] [place] [address] Consulting Physician Neurology 09/25/15 Felecia Shultz MD [address] [address] Consulting Physician Urogynecology 09/25/15 Sole Cementer Relationship Specialty Start Date End Date Lenin Bhatt MD [address] [place] [address] PCP - General Internal Medicine 02/03/17 Arlette Lorenzo MD [address] [place] [address] Referring Physician Obstetrics/Gynecology 02/26/15 [place] [address] [place] [address] [address] [place] [address] Consulting Physician Neurology 09/25/15 Felecia Shultz MD [address] [address] Consulting Physician Urogynecology 09/25/15 Sole Cementer Relationship Specialty Start Date End Date Lenin Bhatt MD [address] [place] [address] PCP - General 10/18/02 Sole Cementer Relationship Specialty Start Date End Date Lenin Bhatt MD [facility] [place] [address] PCP - General 10/18/02 Sole Cementer Relationship Specialty Start Date End Date Lenin Bhatt MD [address] [place] [address] PCP - General 10/18/02 Sole Cementer Relationship Specialty Start Date End Date Lenin Bhatt MD [address] [place] [address] PCP - General 10/18/02 Sole Cementer Relationship Specialty Start Date End Date Lenin Bhatt MD [address] [place] [address] PCP - General 10/18/02 Sole Cementer Relationship Specialty Start Date End Date Lenin Bhatt MD [address] [place] [address] PCP - General 10/18/02 Sole Cementer Relationship Specialty Start Date End Date Lenin Bhatt MD [address] [place] [address] PCP - General 10/18/02 Sole Cementer Relationship Specialty Start Date End Date Lenin Bhatt MD [address] [place] [address] PCP - General 10/18/02 Sole Cementer Relationship Specialty Start Date End Date Lenin Bhatt MD [address] [place] [address] PCP - General 10/18/02 Sole Cementer Relationship Specialty Start Date End Date Lenin Bhatt MD [address] [place] [address] PCP - General 10/18/02 Sole Cementer Relationship Specialty Start Date End Date Lenin Bhatt MD [address] [place] [address] PCP - General 10/18/02 Sole Cementer Relationship Specialty Start Date End Date Lenin Bhatt MD [address] [place] [address] PCP - General 10/18/02 Sole Cementer Relationship Specialty Start Date End Date Lenin Bhatt MD [address] [place] [address] PCP - General 10/18/02 Sole Cementer Relationship Specialty Start Date End Date Lenin Bhatt MD [address] [place] [address] PCP - General 10/18/02 Sole Cementer Relationship Specialty Start Date End Date Lenin Bhatt MD [address] [place] [address] PCP - General 10/18/02 Sole Cementer Relationship Specialty Start Date End Date Lenin Bhatt MD [address] [place] [address] PCP - General 10/18/02 Sole Cementer Relationship Specialty Start Date End Date Lenin Bhatt MD [address] [place] [address] PCP - General 10/18/02 Sole Cementer Relationship Specialty Start Date End Date Lenin Bhatt MD [address] [place] [address] PCP - General 10/18/02 Sole Cementer Relationship Specialty Start Date End Date Lenin Bhatt MD [address] [place] [address] PCP - General 10/18/02 Sole Cementer Relationship Specialty Start Date End Date Lenin Bhatt MD [address] [place] [address] PCP - General 10/18/02 Sole Cementer Relationship Specialty Start Date End Date Lenin Bhatt MD [address] [place] [address] PCP - General 10/18/02 Sole Cementer Relationship Specialty Start Date End Date Lenin Bhatt MD [address] [place] [address] PCP - General 10/18/02 Sole Cementer Relationship Specialty Start Date End Date Lenin Bhatt MD [address] [place], [place] [address] PCP - General 10/18/02 Source Comments (unrecognize d section and content) In the event this informatio n is protected by the [facility] Confidentiality of Alcohol and Drug Abuse Patient Records regulations: The Federal rules restrict any use of the information to criminally investigate or prosecute any alcohol or drug abuse patient.[facility] the event this information is protected by the Federal Confidentiality of Alcohol and Drug Abuse Patient Records regulations: The Federal rules restrict any use of the information to criminally investigate or prosecute any alcohol or drug abuse patient.[facility] the event this information is protected by the Federal Confidentiality of Alcohol and Drug Abuse Patient Records regulations: The Federal rules restrict any use of the information to criminally investigate or prosecute any alcohol or drug abuse patient.[facility] the event this information is protected by the Federal Confidentiality of Alcohol and Drug Abuse Patient Records regulations: The Federal rules restrict any use of the information to criminally investigate or prosecute any alcohol or drug abuse patient.[facility] Hospital[facility] the event this information is protected by the Federal Confidentiality of Alcohol and Drug Abuse Patient Records regulations: The Federal rules restrict any use of the information to criminally investigate or prosecute any alcohol or drug abuse patient.[facility] Hospital[facility] the event this information is protected by the Federal Confidentiality of Alcohol and Drug Abuse Patient Records regulations: The Federal rules restrict any use of the information to criminally investigate or prosecute any alcohol or drug abuse patient.[facility] Hospital[facility] the event this information is protected by the Federal Confidentiality of Alcohol and Drug Abuse Patient Records regulations: The Federal rules restrict any use of the information to criminally investigate or prosecute any alcohol or drug abuse patient.[facility] HospitalIn the event this information is protected by the Federal Confidentiality of Alcohol and Drug Abuse Patient Records regulations: The Federal rules restrict any use of the information to criminally investigate or prosecute any alcohol or drug abuse patient.[facility] Hospital[facility] the event this information is protected by the Federal Confidentiality of Alcohol and Drug Abuse Patient Records regulations: The Federal rules restrict any use of the information to criminally investigate or prosecute any alcohol or drug abuse patient.[facility] Hospital[facility] the event this information is protected by the Federal Confidentiality of Alcohol and Drug Abuse Patient Records regulations: The Federal rules restrict any use of the information to criminally investigate or prosecute any alcohol or drug abuse patient.[facility] HospitalIn the event this information is protected by the Federal Confidentiality of Alcohol and Drug Abuse Patient Records regulations: The Federal rules restrict any use of the information to criminally investigate or prosecute any alcohol or drug abuse patient.[facility] HospitalIn the event this information is protected by the Federal Confidentiality of Alcohol and Drug Abuse Patient Records regulations: The Federal rules restrict any use of the information to criminally investigate or prosecute any alcohol or drug abuse patient.[facility] HospitalIn the event this information is protected by the Federal Confidentiality of Alcohol and Drug Abuse Patient Records regulations: The Federal rules restrict any use of the information to criminally investigate or prosecute any alcohol or drug abuse patient.[facility] HospitalIn the event this information is protected by the Federal Confidentiality of Alcohol and Drug Abuse Patient Records regulations: The Federal rules restrict any use of the information to criminally investigate or prosecute any alcohol or drug abuse patient.[facility] HospitalIn the event this information is protected by the Federal Confidentiality of Alcohol and Drug Abuse Patient Records regulations: The Federal rules restrict any use of the information to criminally investigate or prosecute any alcohol or drug abuse patient.[facility] HospitalIn the event this information is protected by the Federal Confidentiality of Alcohol and Drug Abuse Patient Records regulations: The Federal rules restrict any use of the information to criminally investigate or prosecute any alcohol or drug abuse patient.[facility] HospitalIn the event this information is protected by the Federal Confidentiality of Alcohol and Drug Abuse Patient Records regulations: The Federal rules restrict any use of the information to criminally investigate or prosecute any alcohol or drug abuse patient.[facility] HospitalIn the event this information is protected by the Federal Confidentiality of Alcohol and Drug Abuse Patient Records regulations: The Federal rules restrict any use of the information to criminally investigate or prosecute any alcohol or drug abuse patient.[facility] HospitalIn the event this information is protected by the Federal Confidentiality of Alcohol and Drug Abuse Patient Records regulations: The Federal rules restrict any use of the information to criminally investigate or prosecute any alcohol or drug abuse patient.[facility] HospitalIn the event this information is protected by the Federal Confidentiality of Alcohol and Drug Abuse Patient Records regulations: The Federal rules restrict any use of the information to criminally investigate or prosecute any alcohol or drug abuse patient.[facility] HospitalIn the event this information is protected by the Federal Confidentiality of Alcohol and Drug Abuse Patient Records regulations: The Federal rules restrict any use of the information to criminally investigate or prosecute any alcohol or drug abuse patient.[facility] HospitalIn the event this information is protected by the Federal Confidentiality of Alcohol and Drug Abuse Patient Records regulations: The Federal rules restrict any use of the information to criminally investigate or prosecute any alcohol or drug abuse patient.[facility] HospitalIn the event this information is protected by the Federal Confidentiality of Alcohol and Drug Abuse Patient Records regulations: The Federal rules restrict any use of the information to criminally investigate or prosecute any alcohol or drug abuse patient.[facility] HospitalIn the event this information is protected by the Federal Confidentiality of Alcohol and Drug Abuse Patient Records regulations: The Federal rules restrict any use of the information to criminally investigate or prosecute any alcohol or drug abuse patient.[facility] HospitalIn the event this information is protected by the Federal Confidentiality of Alcohol and Drug Abuse Patient Records regulations: The Federal rules restrict any use of the information to criminally investigate or prosecute any alcohol or drug abuse patient.[facility] HospitalIn the event this information is protected by the Federal Confidentiality of Alcohol and Drug Abuse Patient Records regulations: The Federal rules restrict any use of the information to criminally investigate or prosecute any alcohol or drug abuse patient.[facility] HospitalIn the event this information is protected by the Federal Confidentiality of Alcohol and Drug Abuse Patient Records regulations: The Federal rules restrict any use of the information to criminally investigate or prosecute any alcohol or drug abuse patient.[facility] HospitalIn the event this information is protected by the Federal Confidentiality of Alcohol and Drug Abuse Patient Records regulations: The Federal rules restrict any use of the information to criminally investigate or prosecute any alcohol or drug abuse patient.[facility] HospitalIn the event this information is protected by the Federal Confidentiality of Alcohol and Drug Abuse Patient Records regulations: The Federal rules restrict any use of the information to criminally investigate or prosecute any alcohol or drug abuse patient.[facility] HospitalIn the event this information is protected by the Federal Confidentiality of Alcohol and Drug Abuse Patient Records regulations: The Federal rules restrict any use of the information to criminally investigate or prosecute any alcohol or drug abuse patient.[facility] HospitalIn the event this information is protected by the Federal Confidentiality of Alcohol and Drug Abuse Patient Records regulations: The Federal rules restrict any use of the information to criminally investigate or prosecute any alcohol or drug abuse patient.[facility] HospitalIn the event this information is protected by the Federal Confidentiality of Alcohol and Drug Abuse Patient Records regulations: The Federal rules restrict any use of the information to criminally investigate or prosecute any alcohol or drug abuse patient.[facility] HospitalIn the event this information is protected by the Federal Confidentiality of Alcohol and Drug Abuse Patient Records regulations: The Federal rules restrict any use of the information to criminally investigate or prosecute any alcohol or drug abuse patient.[facility] HospitalIn the event this information is protected by the Federal Confidentiality of Alcohol and Drug Abuse Patient Records regulations: The Federal rules restrict any use of the information to criminally investigate or prosecute any alcohol or drug abuse patient.[facility] HospitalIn the event this information is protected by the Federal Confidentiality of Alcohol and Drug Abuse Patient Records regulations: The Federal rules restrict any use of the information to criminally investigate or prosecute any alcohol or drug abuse patient.[facility] HospitalIn the event this information is protected by the Federal Confidentiality of Alcohol and Drug Abuse Patient Records regulations: The Federal rules restrict any use of the information to criminally investigate or prosecute any alcohol or drug abuse patient.[facility] HospitalIn the event this information is protected by the Federal Confidentiality of Alcohol and Drug Abuse Patient Records regulations: The Federal rules restrict any use of the information to criminally investigate or prosecute any alcohol or drug abuse patient.[facility] HospitalIn the event this information is protected by the Federal Confidentiality of Alcohol and Drug Abuse Patient Records regulations: The Federal rules restrict any use of the information to criminally investigate or prosecute any alcohol or drug abuse patient.[facility] HospitalIn the event this information is protected by the Federal Confidentiality of Alcohol and Drug Abuse Patient Records regulations: The Federal rules restrict any use of the information to criminally investigate or prosecute any alcohol or drug abuse patient.[facility] HospitalIn the event this information is protected by the Federal Confidentiality of Alcohol and Drug Abuse Patient Records regulations: The Federal rules restrict any use of the information to criminally investigate or prosecute any alcohol or drug abuse patient.[facility] HospitalIn the event this information is protected by the Federal Confidentiality of Alcohol and Drug Abuse Patient Records regulations: The Federal rules restrict any use of the information to criminally investigate or prosecute any alcohol or drug abuse patient.[facility] HospitalIn the event this information is protected by the Federal Confidentiality of Alcohol and Drug Abuse Patient Records regulations: The Federal rules restrict any use of the information to criminally investigate or prosecute any alcohol or drug abuse patient.[facility] HospitalIn the event this information is protected by the Federal Confidentiality of Alcohol and Drug Abuse Patient Records regulations: The Federal rules restrict any use of the information to criminally investigate or prosecute any alcohol or drug abuse patient.[facility] HospitalIn the event this information is protected by the Federal Confidentiality of Alcohol and Drug Abuse Patient Records regulations: The Federal rules restrict any use of the information to criminally investigate or prosecute any alcohol or drug abuse patient.[facility] HospitalIn the event this information is protected by the Federal Confidentiality of Alcohol and Drug Abuse Patient Records regulations: The Federal rules restrict any use of the information to criminally investigate or prosecute any alcohol or drug abuse patient.[facility] HospitalIn the event this information is protected by the Federal Confidentiality of Alcohol and Drug Abuse Patient Records regulations: The Federal rules restrict any use of the information to criminally investigate or prosecute any alcohol or drug abuse patient.[facility] HospitalIn the event this information is protected by the Federal Confidentiality of Alcohol and Drug Abuse Patient Records regulations: The Federal rules restrict any use of the information to criminally investigate or prosecute any alcohol or drug abuse patient.[facility] HospitalIn the event this information is protected by the Federal Confidentiality of Alcohol and Drug Abuse Patient Records regulations: The Federal rules restrict any use of the information to criminally investigate or prosecute any alcohol or drug abuse patient.[facility] HospitalIn the event this information is protected by the Federal Confidentiality of Alcohol and Drug Abuse Patient Records regulations: The Federal rules restrict any use of the information to criminally investigate or prosecute any alcohol or drug abuse patient.[facility] HospitalIn the event this information is protected by the Federal Confidentiality of Alcohol and Drug Abuse Patient Records regulations: The Federal rules restrict any use of the information to criminally investigate or prosecute any alcohol or drug abuse patient.[facility] HospitalIn the event this information is protected by the Federal Confidentiality of Alcohol and Drug Abuse Patient Records regulations: The Federal rules restrict any use of the information to criminally investigate or prosecute any alcohol or drug abuse patient.[facility] HospitalIn the event this information is protected by the Federal Confidentiality of Alcohol and Drug Abuse Patient Records regulations: The Federal rules restrict any use of the information to criminally investigate or prosecute any alcohol or drug abuse patient.[facility] HospitalIn the event this information is protected by the Federal Confidentiality of Alcohol and Drug Abuse Patient Records regulations: The Federal rules restrict any use of the information to criminally investigate or prosecute any alcohol or drug abuse patient.[facility] HospitalIn the event this information is protected by the Federal Confidentiality of Alcohol and Drug Abuse Patient Records regulations: The Federal rules restrict any use of the information to criminally investigate or prosecute any alcohol or drug abuse patient.[facility] HospitalIn the event this information is protected by the Federal Confidentiality of Alcohol and Drug Abuse Patient Records regulations: The Federal rules restrict any use of the information to criminally investigate or prosecute any alcohol or drug abuse patient.[facility] HospitalIn the event this information is protected by the Federal Confidentiality of Alcohol and Drug Abuse Patient Records regulations: The Federal rules restrict any use of the information to criminally investigate or prosecute any alcohol or drug abuse patient.[facility] HospitalIn the event this information is protected by the Federal Confidentiality of Alcohol and Drug Abuse Patient Records regulations: The Federal rules restrict any use of the information to criminally investigate or prosecute any alcohol or drug abuse patient.[facility] HospitalIn the event this information is protected by the Federal Confidentiality of Alcohol and Drug Abuse Patient Records regulations: The Federal rules restrict any use of the information to criminally investigate or prosecute any alcohol or drug abuse patient.[facility] FOR RECORDS PERTAINING TO PATIENTS WHO [...] BE BASED ON THE PRIMARY CLINICAL RECORDS. [employer] [facility]. provides no warranty or guarantee of the accuracy or completeness of information in this document.
[2024-06-17 14:24] VITALS: BMI 23.1
[2024-06-17 14:25] VITALS: BP 136/52; PULSE 90; RESP 16; TEMP 36.2; O2SAT 100
--- NOTE | 2024-06-17 15:22 | HP.PCM.HOS_ITS ---
HPI - General General Date of Admission: 06/17/24 HPI Narrative CASIE CORRAL, is a 73 F who presents to the hospital after repeat fall. She was seen about 5 days ago after she had a fall at home and her son brought her in, she was evaluated at that time and may have had a borderline UTI, no cultures were done but she was started on Cipro p.o. twice daily. After x-rays were obtained that showed no fracture or injury, she was discharged home. She presents today after having another mechanical fall at home and just having increased weakness. Imaging studies today did not demonstrate any fractures however does demonstrate an THEODORE. Her Lasix and lisinopril have been discontinued on admission she will be started on IV fluids. A urinalysis is pending to see if there continues to be the possibility of a UTI and if so we will obtain a urine culture. [facility] Medical History Debility Sacral decubitus ulcer, stage III History of stroke HTN (hypertension) Hypothyroid Depression Seizure CAD (coronary artery disease) Hyperlipemia COVID-19 Iron deficiency anemia Heart failure Vertigo Home Medications ?Medication ?Instructions ?Recorded ?Last Taken ?Type atorvastatin 20 mg tablet 20 mg PO QHS cholesterol 08/17/18 06/16/24 History clopidogrel 75 mg tablet 75 mg PO DAILY 08/17/18 06/16/24 History levetiracetam 500 mg tablet 500 mg PO BID seizures 08/17/18 06/16/24 History levothyroxine 50 mcg tablet 50 mcg PO DAILY Thyroid 08/17/18 06/16/24 History sertraline 100 mg tablet 150 mg PO QHS depression 08/17/18 06/16/24 History aspirin 81 mg tablet,delayed 81 mg PO DAILY@0800 08/28/20 06/16/24 History release carvedilol 12.5 mg tablet 12.5 mg PO BID heart 08/28/20 06/16/24 History multivitamin-iron 9 mg-folic acid 1 tab PO DAILY supplement 08/28/20 06/16/24 History 400 mcg-calcium and minerals tablet lisinopril 5 mg tablet 5 mg PO QHS bp ##0 08/31/20 06/16/24 Rx albuterol sulfate 2.5 mg/3 mL 1.25 mg inhalation Q6H PRN 03/25/23 06/16/24 History (0.083 %) solution for nebulization shortness of breath or wheezing furosemide 20 mg tablet 20 mg PO DAILY 03/25/23 06/16/24 History spironolactone 25 mg tablet 25 mg PO DAILY 03/25/23 06/16/24 History (Aldactone) ciprofloxacin HCl 500 mg tablet 500 mg PO BID #14 TABLETS 06/12/24 06/16/24 Rx ibuprofen 400 mg tablet 400 mg PO Q6H PRN pain 30 days 06/12/24 06/16/24 Rx #120 tabs oxycodone 5 mg tablet 5 mg PO Q6H PRN pain 4 days #16 06/12/24 06/16/24 Rx tabs acetaminophen 300 mg-codeine 30 mg 1 tab PO QHS PRN pain 06/17/24 06/16/24 History tablet albuterol sulfate 90 mcg/actuation 2 inh inhalation Q4H PRN shortness 06/17/24 06/16/24 History aerosol inhaler (Ventolin HFA) of breath or wheezing Allergy/AdvReac Type Severity Reaction Status Date / Time No Known Allergies Allergy Verified 06/17/24 10:24 Family History (Updated 06/17/24 @ 17:[address] Eric Bay MD) Other Cancer Kidney disease Surgical History (Updated 06/17/24 @ 17:[address] Eric Bay MD) H/O hysterectomy with oophorectomy Social History (Updated 06/17/24 @ 10:27 by Tita Garcia) household members: children housing: house current occupational status: retired Smoking Status: Unknown if ever smoked ROS Constitutional Constitutional: Reports weakness; Denies chills, fatigue, fever(s) or malaise Eyes Eyes: Denies blurry vision ENT HEENT: Denies headache(s) or nasal discharge Cardiovascular Cardiovascular: Denies chest pain, dyspnea on exertion or syncope Respiratory/Chest Respiratory/Chest: Denies cough, shortness of breath at rest or shortness of breath with exertion Gastrointestinal Gastrointestinal: Denies constipation, diarrhea, nausea or vomiting Genitourinary Genitourinary: Denies dysuria Neurologic Neurologic: Denies focal weakness, numbness or tremor(s) Psychiatric Psychiatric: Denies anxiety or depression Vital Signs Vital Signs Vital Signs: 06/17/24 10:19 06/17/24 10:28 06/17/24 12:08 Temperature 98.5 F Temperature Source Oral Pulse Rate 93 Respiratory Rate 24 H Respiratory Effort Normal Non-Labored Respiratory Depth Normal Respiratory Pattern Normal Blood Pressure 127/55 H Blood Pressure Mean 79 Blood Pressure Source Blood Pressure Position Blood Pressure Location Pulse Ox 94 94 Oxygen Delivery Method Nasal Cannula Nasal Cannula Nasal Cannula Oxygen Flow Rate (L/min) 2 2 06/17/24 12:52 06/17/24 14:25 06/17/24 15:05 Temperature 98.1 F 97.2 F L Temperature Source Temporal Pulse Rate 84 90 Respiratory Rate 18 16 Respiratory Effort Normal Non-Labored Respiratory Depth Normal Respiratory Pattern Normal Blood Pressure 128/85 H 136/52 H Blood Pressure Mean 99 80 Blood Pressure Source Monitor Blood Pressure Position Semi-Fowlers Blood Pressure Location Right Arm Pulse Ox 98 100 Oxygen Delivery Method Room Air Nasal Cannula Oxygen Flow Rate (L/min) 2 Weight Weight: 135 lb 2.294 oz Body Mass Index (BMI) 23.1 Physical Exam Narrative General: Alert, Oriented x3, Cooperative, No apparent distress HEENT: Atraumatic, PERRLA, EOMI, Normocephalic Oral: Moist Mucosa Neck: Supple, No JVD Lungs: Diminished, Normal air movement, No rhonchi, No wheeze, No rales Cardiovascular: Regular rate, Regular Rhythm, Normal S1, Normal S2, No murmurs Abdomen: Soft, Non Tender, Non-Distended, No Hepato-splenomegaly Extremities: No edema, Capillary Refill Less than 3 Seconds Skin: No rashes, No breakdown Musculoskeletal: Right hip tenderness to palpation no fracture Neurological: No focal neurological deficits, Motor Exam 5/5 strength throughout, Sensory exam intact to light touch and pain Psych/Mental Status: Normal Affect, Appropriate Results Lab / Micro Data 06/18/24 04:45 06/18/24 04:45 Labs: Laboratory Results - last 24 hr 06/17/24 12:35: WBC 7.8, RBC 4.49, Hgb 10.8 L, Hct 36.7 L, MCV 81.7, MCH 24.1 L, MCHC 29.4 L, RDW Std Deviation 48.0 H, RDW Coeff of Lev 16.2 H, Plt Count 323, MPV 10.2, Immature Gran % (Auto) 0.400, Neut % (Auto) 76.0 H, Lymph % (Auto) 14.3 L, [place] % (Auto) 6.8, Eos % (Auto) 1.9, Baso % (Auto) 0.6, Absolute Neuts (auto) 5.9, Absolute Lymphs (auto) 1.11, Nucleated RBC % 0, Sodium 142, Potassium 4.1, Chloride 112 H, Carbon Dioxide 24.0, Anion Gap 6, BUN 34 H, C reatinine 1.84 H, Estim Creat Clear Calc 23.51, Est GFR (MDRD) Af Amer 35 L, Est GFR (MDRD) Non-Af 29 L, BUN/Creatinine Ratio 18.5, Glucose 132 H, Calcium 8.9 Imaging Radiology Impression Brain CT 06/17/24 10:32 IMPRESSION: No acute intracranial abnormality. Left frontotemporal encephalomalacia. Chronic involutional and ischemic changes of the brain. Electronically Signed: Benja Pennington MD at 11:18 EDT Reading Location ID and State: [place] / MD Tel , Service support , Cervical Spine CT 06/17/24 10:32 IMPRESSION: No evidence of acute cervical spinal fracture or spondylolisthesis. 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 Moderate multilevel degenerative disc disease and spondylosis Electronically Signed: Benja Pennington MD at 11:30 EDT Reading Location ID and State: [facility] / MD Tel , Service support , Hip/Pelvis X-Ray 06/17/24 10:50 IMPRESSION: No definite acute fracture, however examination of the pubic symphysis and pubic rami is limited due to overlying bowel gas. If high clinical concern for fracture, consider CT pelvis. Electronically Signed: Benja Pennington MD at 11:38 EDT Reading Location ID and State: [place] / MD Tel , Service support , Assessment & Plan Assessment/Plan (1) THEODORE (acute kidney injury): PLAN: Plan 1. Weakness and debility with an inability to complete ADLs with failure to thrive and THEODORE with possible UTI ? Urine culture was never obtained 5 days ago and she has taken Cipro since that time ? Will repeat a UA and if still positive we will proceed with a urine culture ? Continue with IV fluids secondary to the THEODORE, baseline creatinine is around 0.8 and today on admission was 1.84 ? Will hold her nephrotoxic agents ? PT/OT ? She does have 2 decubitus ulcers so we will consult wound care 2. Essential HTN/HLD ?Given her THEODORE we will hold her lisinopril, Lasix, Aldactone ? Continue with Coreg ? Will monitor make adjustments as necessary ? Continue with Lipitor, Plavix, and aspirin 3. Seizure disorder ? Stabilized ? Continue with Keppra 4. Hypothyroidism ? Stable ?Continue with Synthroid ? Will check TSH DVT: SCDs 75 minutes was spent on direct patient care, including documentation as well as chart review and collaboration with colleagues Charges/Coding Visit Charges Inpatient E&M: 55599 Init Hosp L3
[2024-06-17] MEDS: 0.9% Normal Saline (1000mL) 1,000 ML 100 ML IV (16:52)
[2024-06-17] MEDS: oxyCODONE 5 MG Tablet PO (18:54)
[2024-06-17 22:57] VITALS: BP 137/58; PULSE 89; RESP 18; TEMP 36.4; O2SAT 99
[2024-06-17] MEDS: Atorvastatin Calcium 20 MG Tablet PO (23:11)
[2024-06-17] MEDS: Ciprofloxacin 500 MG Tablet PO (23:11)
[2024-06-17] MEDS: levETIRAcetam 500 MG Tablet PO (23:11)
[2024-06-17] MEDS: Carvedilol 12.5 MG Tablet PO (23:11)
[2024-06-17] MEDS: Sertraline 50 MG Tablet 150 MG PO (23:12)
--- NOTE | 2024-06-18 00:57 | EX.EMERGENCY ---
EMERGENCY DOCUMENTATION INITIATED: Date: 05/18/2024 Time: 1300 Initiated 06/17/24
[2024-06-18 02:01] LABS: Color, Urine Yellow (Yellow); Glucose, Dipstick Normal (Normal); Ketone-Dipstick Negative (Negative); Leukocyte Esterase-Dipstick 25 /ul (Negative); Nitrite-Dipstick Negative (Negative); Occult Blood-Urine Negative /ul (Negative); Protein-Dipstick 15 mg/dl (Negative); Specific Gravity, Urine 1.015 (1.002-1.030); Urine Bilirubin Dipstick Negative (Negative); Urine Clarity Sl. Cloudy (Clear); Urine Urobilinogen Normal (Normal)
[2024-06-18 02:13] LABS: Bacteria 4+ /hpf (None Seen); Mucous, Urine 1+ /hpf (<or=2+); Red Blood Cells-Urine 0-5 SEEN /hpf (0-5); Squamous Epithelial Cells - UA 5-10 SEEN /hpf (5-10); White Blood Cells 5-10 SEEN /hpf (0-5)
[2024-06-18 02:14] LABS: Uric Acid Crystals Ur 1+ /hpf (<or=1+)
[2024-06-18] MEDS: 0.9% Normal Saline (1000mL) 1,000 ML 100 ML IV (03:24)
[2024-06-18 04:45] VITALS: BP 118/52; PULSE 82; RESP 18; TEMP 36.5; O2SAT 99
[2024-06-18 05:01] LABS: Absolute Lymphocyte Count 1.15 X10^3/uL (0.83-4.51); Absolute Neutrophil Count 5.2 X10^3/uL (2.0-7.7); Basophil# 0.05 X10^3/uL; Basophil% 0.7 % (0-1); Eosinophil# 0.18 X10^3/uL; Eosinophils% 2.5 % (0-5); Hematocrit 31.9 % (37-47); Hemoglobin 9.6 g/dL (12.0-15.0); Lymphocyte # 1.15 X10^3/ul (0.83-4.51); Lymphocyte % 16.2 % (19-41); Mean Corp Hgb Conc 30.1 g/dL (32-36); Mean Corpuscular Hgb 24.4 pg (27.0-32.0); Mean Corpuscular Volume 81.2 fL (81-99); Mean Platelet Vol. 9.9 fl (6.2-12.0); Monocyte# 0.53 X10^3/uL; Monocyte% 7.4 % (0-10); NRBC Flagged by Analyzer 0 % (0-5); Neutrophil # 5.18 X10^3/uL (2.7-7.7); Neutrophil % 72.8 % (47-70); Platelet Count 314 K/mm3 (150-450); RBC Distribution Width SD 47.3 fl (35.1-43.9); Red Blood Count 3.93 M/mm3 (4.2-5.4); White Blood Count 7.1 K/mm3 (4.4-11.0)
[2024-06-18] MEDS: Levothyroxine 50 MCG Tablet PO (05:22)
[2024-06-18 05:29] LABS: Anion Gap 3 (5-15); BUN 24 mg/dL (7-18); BUN/Creat Ratio 18.3 RATIO (10-20); Calcium,Total 8.3 mg/dL (8.5-10.1); Chloride 115 mmol/L (98-107); Creatinine, Serum 1.31 mg/dL (0.55-1.02); EST Glomerular Filtration Rate 42 mL/min (>60); Est Glom Filt Rate - Afr Amer 51 mL/min (>60); Estimated Creatinine Clearance 33.03 ml/min; Glucose 150 mg/dL (74-106); Potassium 3.7 mmol/L (3.5-5.1); Sodium Level 142 mmol/L (136-145)
[2024-06-18 09:53] VITALS: BP 121/49; PULSE 88; RESP 18; TEMP 36.4; O2SAT 100
[2024-06-18] MEDS: Clopidogrel Bisulfate 75 MG Tablet PO (09:57)
[2024-06-18] MEDS: levETIRAcetam 500 MG Tablet PO ×2 (09:57→21:30)
[2024-06-18] MEDS: Aspirin E.C. 81 MG Tablet PO (09:57)
[2024-06-18] MEDS: Carvedilol 12.5 MG Tablet PO ×2 (09:57→21:30)
[2024-06-18] MEDS: Ciprofloxacin 500 MG Tablet PO ×2 (10:39→21:30)
--- NOTE | 2024-06-18 12:26 | PN.HOSP_ITS ---
Subjective Subjective Doing well, no issues overnight Objective Data Objective Data Vital Signs: Vital Signs Temp Pulse Resp BP Pulse Ox O2 Del Method O2 Flow Rate 97.6 F L 88 18 121/49 H 100 Nasal Cannula 2 06/18/24 09:53 06/18/24 09:53 06/18/24 09:53 06/18/24 09:53 06/18/24 09:53 06/18/24 09:54 06/18/24 09:54 Oxygen Flow Rate (L/min) 2 Oxygen Delivery Method Nasal Cannula Weight: 135 lb 2.294 oz Body Mass Index (BMI) 23.1 Intake & Output: Intake and Output for Last 24 Hours 06/17/24 06/18/24 06/19/24 03:59 03:59 03:59 Intake Total 1120 / 1120 400 / 400 Output Total 350 / 350 800 / 800 Balance 770 / 770 -400 / -400 Lab / Micro Data 06/18/24 04:45 06/18/24 04:45 Labs: Laboratory Results - last 24 hr 06/17/24 12:35: WBC 7.8, RBC 4.49, Hgb 10.8 L, Hct 36.7 L, MCV 81.7, MCH 24.1 L, MCHC 29.4 L, RDW Std Deviation 48.0 H, RDW Coeff of Lev 16.2 H, Plt Count 323, MPV 10.2, Immature Gran % (Auto) 0.400, Neut % (Auto) 76.0 H, Lymph % (Auto) 14.3 L, [place] % (Auto) 6.8, Eos % (Auto) 1.9, Baso % (Auto) 0.6, Absolute Neuts (auto) 5.9, Absolute Lymphs (auto) 1.11, Nucleated RBC % 0, Sodium 142, Potassium 4.1, Chloride 112 H, Carbon Dioxide 24.0, Anion Gap 6, BUN 34 H, C reatinine 1.84 H, Estim Creat Clear Calc 23.51, Est GFR (MDRD) Af Amer 35 L, Est GFR (MDRD) Non-Af 29 L, BUN/Creatinine Ratio 18.5, Glucose 132 H, Calcium 8.9, TSH 1.940 06/18/24 01:30: Urine Color Yellow, Urine Clarity Sl. Cloudy, Urine pH 6.0, Ur Specific [place] 1.015, Urine Protein 15 H, Urine Glucose (UA) Normal, Urine Ketones Negative, Urine Occult Blood Negative, Urine Nitrite Negative, Urine Bilirubin Negative, Urine Urobilinogen Normal, Ur Leukocyte Esterase 25 H, Urine RBC 0-5 SEEN, Urine WBC 5-10 SEEN, Ur Squamous Epith Cells 5-10 SEEN, Uric Acid Crystals 1+, Urine Bacteria 4+, Urine Mucus 1+ 06/18/24 04:45: WBC 7.1, RBC 3.93 L, Hgb 9.6 L, Hct 31.9 L, MCV 81.2, MCH 24.4 L , MCHC 30.1 L, RDW Std Deviation 47.3 H, RDW Coeff of Lev 16.0 H, Plt Count 314, MPV 9.9, Immature Gran % (Auto) 0.400, Neut % (Auto) 72.8 H, Lymph % (Auto) 16.2 L, [place] % (Auto) 7.4, Eos % (Auto) 2.5, Baso % (Auto) 0.7, Absolute Neuts (auto) 5.2, Absolute Lymphs (auto) 1.15, Nucleated RBC % 0, Sodium 142, Potassium 3.7, Chloride 115 H, Carbon Dioxide 24.0, Anion Gap 3 L, BUN 24 H, Creatinine 1.31 H, Estim Creat Clear Calc 33.03, Est GFR (MDRD) Af Amer 51 L, Est GFR (MDRD) Non-Af 42 L, BUN/Creatinine Ratio 18.3, Glucose 150 H, Calcium 8.3 L Physical Exam Narrative General: Alert, Oriented x3, Cooperative, No apparent distress HEENT: Atraumatic, PERRLA, EOMI, Normocephalic Oral: Moist Mucosa Neck: Supple, No JVD Lungs: Diminished, Normal air movement, No rhonchi, No wheeze, No rales Cardiovascular: Regular rate, Regular Rhythm, Normal S1, Normal S2, No murmurs Abdomen: Soft, Non Tender, Non-Distended, No Hepato-splenomegaly Extremities: No edema, Capillary Refill Less than 3 Seconds Skin: No rashes, 2 decubitus ulcers dressings intact Musculoskeletal: Right hip tenderness to palpation no fracture Neurological: No focal neurological deficits, Motor Exam 5/5 strength throughout, Sensory exam intact to light touch and pain Psych/Mental Status: Normal Affect, Appropriate Assessment & Plan Assessment/Plan (1) THEODORE (acute kidney injury): PLAN: Plan 1. Weakness and debility with an inability to complete ADLs with failure to thrive and THEODORE ? Urine culture was never obtained 5 days ago and she has taken Cipro since that time ? Repeat UA with bacteriuria but no signs of a UTI, will complete her Cipro course ? Continue with IV fluids secondary to the THEODORE, baseline creatinine is around 0.8 and today on admission was 1.84 down to 1.31 today ? Will hold her nephrotoxic agents ? PT/OT ? She does have 2 decubitus ulcers so we will consult wound care 2. Essential HTN/HLD ?Given her THEODORE we will hold her lisinopril, Lasix, Aldactone ? Continue with Coreg ? Will monitor make adjustments as necessary ? Continue with Lipitor, Plavix, and aspirin 3. Seizure disorder ? Stabilized ? Continue with Keppra 4. Hypothyroidism ? Stable ?Continue with Synthroid ? TSH 1.94 DVT: SCDs Charges/Coding Visit Charges Inpatient E&M: 19988 Subs Hosp L2
[2024-06-18 13:05] LABS: Ferritin 16 ng/mL (8-252); Iron 25 ug/dL (50-170); Iron Binding Capacity,Total 318 ug/dL (250-450); PERCENT IRON SATURATION 7.9 % (15.0-55.0)
[2024-06-18 15:21] VITALS: BP 121/59; PULSE 88; RESP 18; TEMP 35.7; O2SAT 93
[2024-06-18] MEDS: oxyCODONE 5 MG Tablet PO (19:34)
[2024-06-18 21:27] VITALS: O2SAT 89
[2024-06-18 21:28] VITALS: O2SAT 95
[2024-06-18 21:29] VITALS: BP 122/75; PULSE 100; RESP 18; TEMP 36.4; O2SAT 95
[2024-06-18] MEDS: Atorvastatin Calcium 20 MG Tablet PO (21:30)
[2024-06-18] MEDS: Sertraline 50 MG Tablet 150 MG PO (21:30)
[2024-06-19] VITALS (7 sets, daily range): BP systolic 116–124; BP diastolic 50–58; PULSE 79–93; RESP 18; TEMP 36.4–36.8; O2SAT 90–100
[2024-06-19] MEDS: Levothyroxine 50 MCG Tablet PO (06:15)
[2024-06-19 06:25] LABS: Absolute Lymphocyte Count 1.22 X10^3/uL (0.83-4.51); Absolute Neutrophil Count 6.3 X10^3/uL (2.0-7.7); Basophil# 0.02 X10^3/uL; Basophil% 0.2 % (0-1); Eosinophil# 0.13 X10^3/uL; Eosinophils% 1.6 % (0-5); Hematocrit 29.1 % (37-47); Hemoglobin 8.9 g/dL (12.0-15.0); Lymphocyte # 1.22 X10^3/ul (0.83-4.51); Lymphocyte % 14.6 % (19-41); Mean Corp Hgb Conc 30.6 g/dL (32-36); Mean Corpuscular Hgb 24.9 pg (27.0-32.0); Mean Corpuscular Volume 81.3 fL (81-99); Mean Platelet Vol. 10.3 fl (6.2-12.0); Monocyte# 0.62 X10^3/uL; Monocyte% 7.4 % (0-10); NRBC Flagged by Analyzer 0 % (0-5); Neutrophil # 6.33 X10^3/uL (2.7-7.7); Neutrophil % 75.8 % (47-70); Platelet Count 311 K/mm3 (150-450); RBC Distribution Width SD 47.5 fl (35.1-43.9); Red Blood Count 3.58 M/mm3 (4.2-5.4); White Blood Count 8.4 K/mm3 (4.4-11.0)
[2024-06-19 06:37] LABS: Anion Gap 4 (5-15); BUN 19 mg/dL (7-18); BUN/Creat Ratio 16.2 RATIO (10-20); Calcium,Total 8.1 mg/dL (8.5-10.1); Chloride 114 mmol/L (98-107); Creatinine, Serum 1.17 mg/dL (0.55-1.02); EST Glomerular Filtration Rate 48 mL/min (>60); Est Glom Filt Rate - Afr Amer 58 mL/min (>60); Estimated Creatinine Clearance 36.98 ml/min; Glucose 127 mg/dL (74-106); Potassium 3.7 mmol/L (3.5-5.1); Sodium Level 141 mmol/L (136-145)
[2024-06-19] MEDS: Carvedilol 12.5 MG Tablet PO ×2 (09:33→21:31)
[2024-06-19] MEDS: levETIRAcetam 500 MG Tablet PO ×2 (09:33→21:31)
[2024-06-19] MEDS: Aspirin E.C. 81 MG Tablet PO (09:33)
[2024-06-19] MEDS: Clopidogrel Bisulfate 75 MG Tablet PO (09:33)
[2024-06-19] MEDS: Juven (unflavored) Packet 1 PACKET PO ×2 (09:35→15:33)
[2024-06-19] MEDS: Ciprofloxacin 500 MG Tablet PO ×2 (09:35→21:31)
--- NOTE | 2024-06-19 10:35 | CASEMGMT ---
WHITLEY SOLANO called sonWilliam, for initial transition planning/care coordination assessment as patient is confused. WHITLEY SOLANO introduced self and role at [facility]. Son willing to participate in assessment and is able to answer all questions appropriately. Care providers, pharmacy, and demographics verified. Strata: 2 PCP: [facility] Specialists: Mingo, photoresist contact printer; Skylar, neurologist; Yeny, urologist; Geriatric Specialist Preferred Pharmacy: [facility] Prescription Benefit: yes Living Will/HPOA: yes, tammy Patel LNOK: sons Living Arrangements: Patient lives with son in a mobile with stair lift to enter the home. Patient was independent prior to hospiatilzation Transportation: self, sons DME/HHC: Patient has shower chair, grab bars, rollator, wheelchair, nebulizer, pulse ox, and home oxygen through [employer] at 2lpm. No previous HHC or SNF. Patient is active with Waiver program and has [facility] Contreras. WHITLEY SOLANO reviewed progress with therapy and patient was requiring moderate assistance from therapy and recommending SNF. Son is agreeable to SNF and would like to discuss with brother. Son states he will be in later to day to review list. Son states he has no further needs or concerns at this time. WHITLEY SOLANO updated SW. CM to follow for discharge planning needs that may arise. Disposition Plan: SNF pending acceptance and precert Kylee NOVAK, RN, CM
--- NOTE | 2024-06-19 10:45 | CASEMGMT ---
Discharge Planning A list of?SNF providers including quality and resource use data and consistent with the patient's preferred geographic region, medical needs, and insurance network was created in CarePort Guide.? This list was provided to the SW. Patience Ocasio Discharge Planning Asst.
--- NOTE | 2024-06-19 13:27 | CASEMGMT ---
Monty William at [facility] nurses station asking for CM. RN CM to speak with monty Thomas, list provided at previously discussed. Son states that he will review list with brother and provide preferences. Son states that Diane from [facility] with be at [facility] at 10am to speak with patient and son. CM to follow up with son after meeting with Diane. Monty Thomas had no further questions or concerns. RN CM updated SW. CM to continue to follow this patient and plan for a safe discharge.
--- NOTE | 2024-06-19 14:14 | CASEMGMT ---
Social Work Per RNCM pt is active with [facility]. Phone call to [facility] and Haritha Worrell is her [employer]. Pt receives 5 home delivered meals per week and an emergency response system. SW will updated [facility] at time of DC. Pt may need SNF placement. A list of SNF providers including quality and resource use data and consistent with the patient?s preferred geographic region, medical needs, and insurance network were provided from the CarePort Guide by the RNCM. SW to follow up tomorrow for SNF choices and discharge planning once family has time to consider options. SERGE Murphy
--- NOTE | 2024-06-19 14:47 | PCM.PN.HOSP ---
Subjective Subjective Doing well, no issues overnight feeling a little better today. Objective Data Objective Data Vital Signs: Vital Signs Temp Pulse Resp BP Pulse Ox O2 Del Method O2 Flow Rate 97.8 F 88 18 120/50 L 90 Nasal Cannula 2 06/19/24 09:30 06/19/24 09:30 06/19/24 09:30 06/19/24 09:30 06/19/24 10:23 06/19/24 14:03 06/19/24 14:03 Oxygen Flow Rate (L/min) 2 Oxygen Delivery Method Nasal Cannula Weight: 135 lb 2.294 oz Body Mass Index (BMI) 23.1 Intake & Output: Intake and Output for Last 24 Hours 06/18/24 06/19/24 06/20/24 03:59 03:59 03:59 Intake Total 1120 / 1120 1900 / 1900 Output Total 350 / 350 800 / 800 Balance 770 / 770 1100 / 1100 Medical Nutrition Assessment Dietitian: Malnutrition Criteria Met Start: 06/18/24 17:27 Freq: Status: Active Protocol: Document 06/18/24 17:27 RMA (Rec: 06/18/24 17:27 RMA [id number]) Nutrition Malnutrition Evidence of Malnutrition Exists Yes Malnutrition (severe): Chronic Evidenced By Suboptimal Energy Intake ( Severe),Weight Loss (Severe) Clinical Problem Chronic Disease or Condition Related Malnutrition Etiology severe protein-calorie malnutrition in the context of chronic disease/debility related to inadequate energy/ oral intake Signs/Symptoms as evidenced by BMI 23.2, ~18% unintentional weight loss x 10 months and PO meeting less than 50% estimated nutrition needs x 6 months Status Active Problem Recommendation Dietitian Recommendations/Changes Will liberalize diet to Regular/no added salt given signs/symptoms of malnutrition . Will add Yariel BID to support wound healing. Will add chocolate ensure compact 3 times per day w/ meals to replete energy/ protein as tolerated. Adjust ONS as needed to optimize oral intake and replete energy/protein. Lab / Micro Data 06/19/24 05:30 06/19/24 05:30 Labs: Laboratory Results - last 24 hr 06/19/24 05:30: WBC 8.4, RBC 3.58 L, Hgb 8.9 L, Hct 29.1 L, MCV 81.3, MCH 24.9 L, MCHC 30.6 L, RDW Std Deviation 47.5 H, RDW Coeff of Lev 16.0 H, Plt Count 311, MPV 10.3, Immature Gran % (Auto) 0.400, Neut % (Auto) 75.8 H, Lymph % (Auto) 14.6 L, [place] % (Auto) 7.4, Eos % (Auto) 1.6, Baso % (Auto) 0.2, Absolute Neuts (auto) 6.3, Absolute Lymphs (auto) 1.22, Nucleated RBC % 0, Sodium 141, Potassium 3.7, Chloride 114 H, Carbon Dioxide 23.0, Anion Gap 4 L, BUN 19 H, Creatinine 1.17 H, Estim Creat Clear Calc 36.98, Est GFR (MDRD) Af Amer 58 L, Est GFR (MDRD) Non-Af 48 L, BUN/Creatinine Ratio 16.2, Glucose 127 H, Calcium 8.1 L Physical Exam Narrative General: Alert, Oriented x3, Cooperative, No apparent distress HEENT: Atraumatic, PERRLA, EOMI, Normocephalic Oral: Moist Mucosa Neck: Supple, No JVD Lungs: Diminished, Normal air movement, No rhonchi, No wheeze, No rales Cardiovascular: Regular rate, Regular Rhythm, Normal S1, Normal S2, No murmurs Abdomen: Soft, Non Tender, Non-Distended, No Hepato-splenomegaly Extremities: No edema, Capillary Refill Less than 3 Seconds Skin: No rashes, 2 decubitus ulcers dressings intact Musculoskeletal: Right hip tenderness to palpation no fracture Neurological: No focal neurological deficits, Motor Exam 5/5 strength throughout, Sensory exam intact to light touch and pain Psych/Mental Status: Normal Affect, Appropriate Assessment & Plan Assessment/Plan (1) THEODORE (acute kidney injury): PLAN: Plan 1. Weakness and debility with an inability to complete ADLs with failure to thrive and THEODORE/iron deficiency anemia ? Urine culture was never obtained 5 days ago and she has taken Cipro since that time ? Repeat UA with bacteriuria but no signs of a UTI, will complete her Cipro course ? Continue with IV fluids secondary to the THEODORE, baseline creatinine is around 0.8 and today on admission was 1.84 down to 1.17 today ? Will hold her nephrotoxic agents ? PT/OT ? She does have 2 decubitus ulcers so we will consult wound care ? Iron studies yesterday demonstrated an iron of 25 with a saturation of 7.9% and a ferritin of 16. Will provide with of Venofer today 2. Essential HTN/HLD ?Given her THEODORE we will hold her lisinopril, Lasix, Aldactone ? Continue with Coreg ? Will monitor make adjustments as necessary ? Continue with Lipitor, Plavix, and aspirin 3. Seizure disorder ? Stabilized ? Continue with Keppra 4. Hypothyroidism ? Stable ?Continue with Synthroid ? TSH 1.94 DVT: SCDs Charges/Coding Visit Charges Inpatient E&M: 70537 Subs Hosp L2
[2024-06-19] MEDS: Sodium Ferric Gluconat/Sucrose 250 MG in 0.9% Normal Saline (250mL Bag) 250 ML 135 MG IV (15:32)
[2024-06-19] MEDS: 0.9% Saline Lock 10 ML Syringe IV (15:33)
[2024-06-19] MEDS: Atorvastatin Calcium 20 MG Tablet PO (21:31)
[2024-06-19] MEDS: Sertraline 50 MG Tablet 150 MG PO (21:31)
[2024-06-20] VITALS (7 sets, daily range): BP systolic 109–133; BP diastolic 44–60; PULSE 80–91; RESP 16–18; TEMP 36.2–36.7; O2SAT 82–100
[2024-06-20] MEDS: Levothyroxine 50 MCG Tablet PO (04:58)
[2024-06-20 06:42] LABS: Absolute Lymphocyte Count 1.21 X10^3/uL (0.83-4.51); Basophil# 0.05 X10^3/uL; Basophil% 0.7 % (0-1); Eosinophil# 0.22 X10^3/uL; Hematocrit 30.1 % (37-47); Hemoglobin 8.7 g/dL (12.0-15.0); Lymphocyte # 1.21 X10^3/ul (0.83-4.51); Lymphocyte % 16.8 % (19-41); Mean Corp Hgb Conc 28.9 g/dL (32-36); Mean Corpuscular Hgb 24.1 pg (27.0-32.0); Mean Corpuscular Volume 83.4 fL (81-99); Mean Platelet Vol. 10.3 fl (6.2-12.0); Monocyte% 9.7 % (0-10); NRBC Flagged by Analyzer 0 % (0-5); Neutrophil # 5.01 X10^3/uL (2.7-7.7); Neutrophil % 69.4 % (47-70); Platelet Count 302 K/mm3 (150-450); RBC Distribution Width CV 16.2 % (11.6-14.6); RBC Distribution Width SD 49.1 fl (35.1-43.9); Red Blood Count 3.61 M/mm3 (4.2-5.4); White Blood Count 7.2 K/mm3 (4.4-11.0)
[2024-06-20 07:09] LABS: Anion Gap 4 (5-15); BUN 32 mg/dL (7-18); BUN/Creat Ratio 30.8 RATIO (10-20); Chloride 113 mmol/L (98-107); Creatinine, Serum 1.04 mg/dL (0.55-1.02); EST Glomerular Filtration Rate 55 mL/min (>60); Est Glom Filt Rate - Afr Amer 67 mL/min (>60); Glucose 111 mg/dL (74-106); Potassium 3.9 mmol/L (3.5-5.1); Sodium Level 142 mmol/L (136-145)
[2024-06-20] MEDS: Aspirin E.C. 81 MG Tablet PO (09:43)
[2024-06-20] MEDS: Carvedilol 12.5 MG Tablet PO ×2 (09:43→21:15)
[2024-06-20] MEDS: Clopidogrel Bisulfate 75 MG Tablet PO (09:43)
[2024-06-20] MEDS: Juven (unflavored) Packet 1 PACKET PO ×2 (09:43→16:55)
[2024-06-20] MEDS: levETIRAcetam 500 MG Tablet PO ×2 (09:44→21:15)
[2024-06-20] MEDS: Ciprofloxacin 500 MG Tablet PO ×2 (09:44→21:15)
--- NOTE | 2024-06-20 11:01 | PN.HOSP_ITS ---
Subjective Subjective Doing well, no issues overnight Objective Data Objective Data Vital Signs: Vital Signs Temp Pulse Resp BP Pulse Ox O2 Del Method O2 Flow Rate 97.5 F L 86 16 116/44 L 100 Nasal Cannula 2 06/20/24 09:38 06/20/24 09:38 06/20/24 09:38 06/20/24 09:38 06/20/24 09:38 06/20/24 09:38 06/20/24 09:38 Oxygen Flow Rate (L/min) 2 Oxygen Delivery Method Nasal Cannula Weight: 135 lb 2.294 oz Body Mass Index (BMI) 23.1 Intake & Output: Intake and Output for Last 24 Hours 06/19/24 06/20/24 06/21/24 03:59 03:59 03:59 Intake Total 1900 / 1900 520 / 520 250 / 250 Output Total 800 / 800 750 / 750 350 / 350 Balance 1100 / 1100 -230 / -230 -100 / -100 Medical Nutrition Assessment Dietitian: Malnutrition Criteria Met Start: 06/18/24 17:27 Freq: Status: Active Protocol: Document 06/18/24 17:27 RMA (Rec: 06/18/24 17:27 RMA [id number]) Nutrition Malnutrition Evidence of Malnutrition Exists Yes Malnutrition (severe): Chronic Evidenced By Suboptimal Energy Intake ( Severe),Weight Loss (Severe) Clinical Problem Chronic Disease or Condition Related Malnutrition Etiology severe protein-calorie malnutrition in the context of chronic disease/debility related to inadequate energy/ oral intake Signs/Symptoms as evidenced by BMI 23.2, ~18% unintentional weight loss x 10 months and PO meeting less than 50% estimated nutrition needs x 6 months Status Active Problem Recommendation Dietitian Recommendations/Changes Will liberalize diet to Regular/no added salt given signs/symptoms of malnutrition . Will add Yraiel BID to support wound healing. Will add chocolate ensure compact 3 times per day w/ meals to replete energy/ protein as tolerated. Adjust ONS as needed to optimize oral intake and replete energy/protein. Lab / Micro Data 06/20/24 06:04 06/20/24 06:04 Labs: Laboratory Results - last 24 hr 06/20/24 06:04: WBC 7.2, RBC 3.61 L, Hgb 8.7 L, Hct 30.1 L, MCV 83.4, MCH 24.1 L , MCHC 28.9 L D, RDW Std Deviation 49.1 H, RDW Coeff of Lev 16.2 H, Plt Count 302, MPV 10.3, Immature Gran % (Auto) 0.400, Neut % (Auto) 69.4, Lymph % (Auto) 16.8 L, [place] % (Auto) 9.7, Eos % (Auto) 3.0, Baso % (Auto) 0.7, Absolute Neuts (auto) 5.0, Absolute Lymphs (auto) 1.21, Nucleated RBC % 0, Sodium 142, Potassium 3.9, Chloride 113 H, Carbon Dioxide 25.0, Anion Gap 4 L, BUN 32 H, C reatinine 1.04 H, Estim Creat Clear Calc 41.60, Est GFR (MDRD) Af Amer 67, Est GFR (MDRD) Non-Af 55 L, BUN/Creatinine Ratio 30.8 H, Glucose 111 H, Calcium 9.0 Physical Exam Narrative General: Alert, Oriented x3, Cooperative, No apparent distress HEENT: Atraumatic, PERRLA, EOMI, Normocephalic Oral: Moist Mucosa Neck: Supple, No JVD Lungs: Diminished, Normal air movement, No rhonchi, No wheeze, No rales Cardiovascular: Regular rate, Regular Rhythm, Normal S1, Normal S2, No murmurs Abdomen: Soft, Non Tender, Non-Distended, No Hepato-splenomegaly Extremities: No edema, Capillary Refill Less than 3 Seconds Skin: No rashes, 2 decubitus ulcers dressings intact Musculoskeletal: Right hip tenderness to palpation no fracture Neurological: No focal neurological deficits, Motor Exam 5/5 strength throughout, Sensory exam intact to light touch and pain Psych/Mental Status: Normal Affect, Appropriate Assessment & Plan Assessment/Plan (1) THEODORE (acute kidney injury): PLAN: Plan 1. Weakness and debility with an inability to complete ADLs with failure to thrive and THEODORE/iron deficiency anemia ? Urine culture was never obtained 5 days ago and she has taken Cipro since that time ? Repeat UA with bacteriuria but no signs of a UTI, will complete her Cipro course ? encourage p.o. intake, creatinine is down to 1.04 today ? Will hold her nephrotoxic agents ? PT/OT, awaiting SNF placement ? She does have 2 decubitus ulcers so we will consult wound care ? Iron studies yesterday demonstrated an iron of 25 with a saturation of 7.9% and a ferritin of 16. Will provide with of Venofer today 2. Essential HTN/HLD ?Given her THEODORE we will hold her lisinopril, Lasix, Aldactone ? Continue with Coreg ? Will monitor make adjustments as necessary ? Continue with Lipitor, Plavix, and aspirin 3. Seizure disorder ? Stabilized ? Continue with Keppra 4. Hypothyroidism ? Stable ?Continue with Synthroid ? TSH 1.94 DVT: SCDs Charges/Coding Visit Charges Inpatient E&M: 17537 Subs Hosp L2
--- NOTE | 2024-06-20 13:35 | CASEMGMT ---
ANNIE met with patient and her sons. ANNIE introduced self and role at [facility]. Their five choices for SNF are: [facility], [facility], [facility], [facility], and [facility]. ANNIE made a referral to [facility]. ANNIE called patient's son William to make sure he was aware patient would only be able to be in [facility]CU for 20 days as [facility] does not take Medicaid. ANNIE explained that patient would have to be moved to another facility or home before day 21. William was not aware of this, but still preferred [facility]. ANNIE notified Deb. Dora Ga [employer] INTER[employer]ANG[employer] YUDI
--- NOTE | 2024-06-20 14:42 | WOUNDNOTE ---
wound photo: sacrum
--- NOTE | 2024-06-20 14:42 | WOUNDNOTE ---
wound photo: left ischium
--- NOTE | 2024-06-20 15:22 | CASEMGMT ---
[facility] is able to take patient. Deb will start pre-cert. ANNIE called patient's son William and let him know that [facility] is able to take patient pending pre-cert. ANNIE let him know it will likely be tomorrow, but regardless someone will let him know when patient is approved and being moved to TCU. Plan: d/c to [facility] pending insurance approval. Dora aG GIN CLERKJazmyne BAGLEY
[2024-06-20] MEDS: oxyCODONE 5 MG Tablet PO (15:45)
[2024-06-20] MEDS: Atorvastatin Calcium 20 MG Tablet PO (21:15)
[2024-06-20] MEDS: Sertraline 50 MG Tablet 150 MG PO (21:15)
[2024-06-21 03:13] VITALS: BP 122/45; PULSE 80; RESP 16; TEMP 36.3; O2SAT 98
[2024-06-21] MEDS: Levothyroxine 50 MCG Tablet PO (05:53)
[2024-06-21 07:04] LABS: Absolute Lymphocyte Count 1.54 X10^3/uL (0.83-4.51); Absolute Neutrophil Count 6.7 X10^3/uL (2.0-7.7); Basophil# 0.07 X10^3/uL; Basophil% 0.8 % (0-1); Eosinophil# 0.24 X10^3/uL; Eosinophils% 2.6 % (0-5); Hematocrit 29.2 % (37-47); Hemoglobin 8.9 g/dL (12.0-15.0); Lymphocyte # 1.54 X10^3/ul (0.83-4.51); Lymphocyte % 16.5 % (19-41); Mean Corp Hgb Conc 30.5 g/dL (32-36); Mean Platelet Vol. 10.5 fl (6.2-12.0); Monocyte# 0.77 X10^3/uL; Monocyte% 8.3 % (0-10); NRBC Flagged by Analyzer 0 % (0-5); Neutrophil # 6.65 X10^3/uL (2.7-7.7); Neutrophil % 71.4 % (47-70); Platelet Count 317 K/mm3 (150-450); RBC Distribution Width CV 16.2 % (11.6-14.6); RBC Distribution Width SD 48.2 fl (35.1-43.9); Red Blood Count 3.56 M/mm3 (4.2-5.4); White Blood Count 9.3 K/mm3 (4.4-11.0)
[2024-06-21 07:15] LABS: Anion Gap 3 (5-15); BUN 39 mg/dL (7-18); BUN/Creat Ratio 33.3 RATIO (10-20); Calcium,Total 9.1 mg/dL (8.5-10.1); Chloride 108 mmol/L (98-107); Creatinine, Serum 1.17 mg/dL (0.55-1.02); EST Glomerular Filtration Rate 48 mL/min (>60); Est Glom Filt Rate - Afr Amer 58 mL/min (>60); Estimated Creatinine Clearance 36.98 ml/min; Glucose 113 mg/dL (74-106); Sodium Level 138 mmol/L (136-145)
--- NOTE | 2024-06-21 07:39 | CASEMGMT ---
Patient was approved to go to [facility] T[facility]. SW notified physician. Dora BAGLEY
[2024-06-21] MEDS: Sodium Ferric Gluconat/Sucrose 250 MG in 0.9% Normal Saline (250mL Bag) 250 ML 135 MG IV (08:14)
[2024-06-21] MEDS: 0.9% Saline Lock 10 ML Syringe IV (08:14)
[2024-06-21] MEDS: Juven (unflavored) Packet 1 PACKET PO (08:15)
[2024-06-21] MEDS: Aspirin E.C. 81 MG Tablet PO (08:15)
[2024-06-21] MEDS: levETIRAcetam 500 MG Tablet PO (08:26)
[2024-06-21] MEDS: Clopidogrel Bisulfate 75 MG Tablet PO (08:27)
[2024-06-21] MEDS: Carvedilol 12.5 MG Tablet PO (08:27)
--- NOTE | 2024-06-21 09:14 | WOUNDNOTE ---
Dressings were changed to the sacrum and left ischium yesterday by this nurse. orders for every 3 day dressing changes.
[2024-06-21 09:15] VITALS: BP 132/46; PULSE 78; RESP 16; TEMP 36.3; O2SAT 92
--- NOTE | 2024-06-21 10:56 | TREXTCAR_ITS ---
Diet Diet Order/Speech Therapy: 06/18/24 17:11 Diet: Regular - No Added Salt Food consistency:: Regular Liquid Consistency:: Regular/Thin Type of Dietary Supplement:: Damaris Ensure Compact Diet Comments: Chocolate ensure compact Q meal Routine Orders/Code Status Routine Lab Work: CBC and BMP Wound(s) donnie cleft: Wound Type: Pressure Injury under left buttocks: Wound Type: Pressure Injury sacrum: Wound Type: Pressure Injury Dressing Change: Promogran with dry dressing left ischium: Wound Type: Pressure Injury Dressing Change: foam dressing Therapies Physical Therapy: Eval and Treat Occupational Therapy: Eval and Treat Problem/Diagnosis (1) THEODORE (acute kidney injury): Status: Acute Code(s): N17.9 - Acute kidney failure, unspecified Plan 1. Weakness and debility with an inability to complete ADLs with failure to thrive and THEODORE/iron deficiency anemia ? Urine culture was never obtained 5 days ago and she has taken Cipro since that time ? Repeat UA with bacteriuria but no signs of a UTI, will complete her Cipro course ? encourage p.o. intake, creatinine is down to 1.04 today ? Will hold her nephrotoxic agents ? PT/OT, awaiting SNF placement ? She does have 2 decubitus ulcers so we will consult wound care ? Iron studies yesterday demonstrated an iron of 25 with a saturation of 7.9% and a ferritin of 16. Will provide with of Venofer today 2. Essential HTN/HLD ?Given her THEODORE we will hold her lisinopril, Lasix, Aldactone ? Continue with Coreg ? Will monitor make adjustments as necessary ? Continue with Lipitor, Plavix, and aspirin 3. Seizure disorder ? Stabilized ? Continue with Keppra 4. Hypothyroidism ? Stable ?Continue with Synthroid ? TSH 1.94 DVT: SCDs Allergies/Procedures Done in Hospital Allergies No Known Allergies Allergy (Verified 06/17/24 10:24) Procedures: None Type of Care/Length of Stay Estimated LOS: Convalescent Care Less Than 30 days Type of Care Needed: Skilled Rehab Potential: Good Prognosis: Good Additional Orders/Day of Discharge Day of Discharge: 06/21/24 Dietary and Speech Recommendations Dietitian Recommendations/Changes: Will liberalize diet to Regular/no added salt given signs/symptoms of malnutrition. Will add Yariel BID to support wound healing. Will add chocolate ensure compact 3 times per day w/ meals to replete energy/protein as tolerated. Adjust ONS as needed to optimize oral intake and replete energy/protein. Discharge Plan Admission Admit Date/Time: 06/17/24 15:25 Attending Provider: Eric Bay Primary Care Provider: Lenin Bhatt Instructions Patient Instructions: ED Mechanical Fall, ED Head Injury (Adult), ED Hip Contusion Discharge Orders/Prescriptions Prescriptions: New ferrous gluconate 324 mg (38 mg iron) tablet 324 mg PO DAILY Qty: 1 0RF Continued atorvastatin 20 MG tablet 20 mg PO QHS levetiracetam 500 MG tablet 500 mg PO BID sertraline 100 MG tablet 150 mg PO QHS clopidogrel 75 MG tablet 75 mg PO DAILY levothyroxine 50 MCG tablet 50 mcg PO DAILY carvedilol 12.5 MG tablet 12.5 mg PO BID aspirin 81 MG tablet 81 mg PO DAILY@0800 [id number]-mins 1 EACH tablet 1 tab PO DAILY lisinopril 5 MG tablet 5 mg PO QHS Qty: 0 0RF Rx Instructions: Hold for 5 more days spironolactone [Aldactone] 25 mg tablet 25 mg PO DAILY albuterol sulfate 2.5 mg /3 mL (0.083 %) solution for nebulization 1.25 mg inhalation Q6H PRN (Reason: shortness of breath or wheezing) acetaminophen-codeine 300-30 mg tablet 1 tab PO QHS PRN (Reason: pain) albuterol sulfate [Ventolin HFA] 90 mcg/actuation HFA aerosol inhaler 2 inh inhalation Q4H PRN (Reason: shortness of breath or wheezing) ibuprofen 400 mg tablet 400 mg PO Q6H PRN (Reason: pain) 30 Days Qty: 120 0RF Held furosemide 20 mg tablet 20 mg PO DAILY Hold Instructions: Resume on 06/23/24. Discontinued oxycodone 5 mg tablet 5 mg PO Q6H PRN (Reason: pain) 4 Days Qty: 16 0RF ciprofloxacin HCl 500 mg tablet 500 mg PO BID Qty: 14 0RF Patient Comments: PT GOT 7 DAY SUPPLY FILLED ON 06/12/24 Referrals / Follow Up: Lenin Bhatt MD [Primary Care Provider] - 3-5 Days Disposition Disposition (needs filled in before D/C Order can be placed): Nursing Home Facility
--- NOTE | 2024-06-21 11:41 | CASEMGMT ---
ANNIE called patient's son William and let him know patient was approved to go to TCU today. ANNIE provided William with the phone number for TCU per his request. Plan: d/c to [facility] TCU under skilled level of care. Dora BAGLEY
--- NOTE | 2024-06-21 17:56 | DS.PCM_ITS ---
Providers Date of Admission: 06/17/24 Primary Care Physician: Dr. Lenin Bhatt MD Consultations 06/17/24 15:25 Consult: Onc/Wound/pants presser automatic Routine Comment: Reason For Visit: FALL WEAKNESS Diagnosis Discharge Diagnosis (1) THEODORE (acute kidney injury): Status: Acute Code(s): N17.9 - Acute kidney failure, unspecified Medications at Discharge Home Medications atorvastatin 20 mg tablet 20 mg PO QHS cholesterol 08/17/18 clopidogrel 75 mg tablet 75 mg PO DAILY anti platelet 08/17/18 levetiracetam 500 mg tablet 500 mg PO BID seizures 08/17/18 levothyroxine 50 mcg tablet 50 mcg PO DAILY Thyroid 08/17/18 sertraline 100 mg tablet 150 mg PO QHS depression 08/17/18 aspirin 81 mg tablet,delayed release 81 mg PO DAILY@0800 heart health 08/28/20 carvedilol 12.5 mg tablet 12.5 mg PO BID heart 08/28/20 multivitamin-iron 9 mg-folic acid 400 mcg-calcium and minerals tablet 1 tab PO DAILY supplement 08/28/20 lisinopril 5 mg tablet 5 mg PO QHS bp ##0 08/31/20 albuterol sulfate 2.5 mg/3 mL (0.083 %) solution for nebulization 1.25 mg inhalation Q6H PRN shortness of breath or wheezing 03/25/23 furosemide 20 mg tablet 20 mg PO DAILY diuretic 03/25/23 spironolactone 25 mg tablet (Aldactone) 25 mg PO DAILY diuretic 03/25/23 ibuprofen 400 mg tablet 400 mg PO Q6H PRN pain 30 days #120 tabs 06/12/24 acetaminophen 300 mg-codeine 30 mg tablet 1 tab PO QHS PRN pain 06/17/24 albuterol sulfate 90 mcg/actuation aerosol inhaler (Ventolin HFA) 2 inh inhalation Q4H PRN shortness of breath or wheezing 06/17/24 ferrous gluconate 324 mg (38 mg iron) tablet 324 mg PO DAILY Supplement #1 TAB 06/21/24 Hospital Course Operations None Procedures None Summary of Care Provided Minutes Spent on Discharge: 36 Hospital Course: Per HPI: CASIE CORRAL, is a 73 F who presents to the hospital after repeat fall. She was seen about 5 days ago after she had a fall at home and her son brought her in, she was evaluated at that time and may have had a borderline UTI, no cultures were done but she was started on Cipro p.o. twice daily. After x-rays were obtained that showed no fracture or injury, she was discharged home. She presents today after having another mechanical fall at home and just having increased weakness. Imaging studies today did not demonstrate any fractures however does demonstrate an THEODORE. Her Lasix and lisinopril have been discontinued on admission she will be started on IV fluids. A urinalysis is pending to see if there continues to be the possibility of a UTI and if so we will obtain a urine culture. Hospital Course: 1. Weakness and debility with inability to complete ADLs with failure to thrive and THEODORE/iron deficiency anemia?73-year-old female presented to the hospital after having multiple falls at home. Initially she was thought to have a UTI however urine culture was not obtained during her ER visit she was just placed on Cipro, repeat UA was obtained but did not show significant signs of UTI so she just completed her Cipro course from her previous ER visit. She was found to have a little bit of an THEODORE though on discharge her creatinine was 1.17 down from 1.84 on admission. She was placed on IV fluids and encouraged to have p.o. intake. She was evaluated by PT and OT and felt that she would benefit from SNF placement. Of note she also had iron studies that demonstrate an iron of 25 with saturation of 7.9 and a ferritin of 16, she was provided with multiple doses of IV iron and discharged on oral iron. I discussed with her the plan for discharge today she expressed understanding the risk benefits going home and would like to go home today. 2. Essential hypertension, hyperlipidemia, seizure disorder, hypothyroidism are all chronic medical conditions which complicate her care. Her home medications were continued where appropriate Physical Exam Narrative General: Alert, Oriented x3, Cooperative, No apparent distress HEENT: Atraumatic, PERRLA, EOMI, Normocephalic Oral: Moist Mucosa Neck: Supple, No JVD Lungs: Diminished, Normal air movement, No rhonchi, No wheeze, No rales Cardiovascular: Regular rate, Regular Rhythm, Normal S1, Normal S2, No murmurs Abdomen: Soft, Non Tender, Non-Distended, No Hepato-splenomegaly Extremities: No edema, Capillary Refill Less than 3 Seconds Skin: No rashes Musculoskeletal: Right hip tenderness to palpation no fracture Neurological: No focal neurological deficits, Motor Exam 5/5 strength throughout, Sensory exam intact to light touch and pain Psych/Mental Status: Normal Affect, Appropriate Weight / BMI Weight Weight: 135 lb 2.294 oz Body Mass Index (BMI) 23.1 ABG / Lab / Microbiology Data 06/21/24 06:24 06/21/24 06:24 Laboratory: Laboratory Results - last 24 hr 06/21/24 06:24: WBC 9.3, RBC 3.56 L, Hgb 8.9 L, Hct 29.2 L, MCV 82.0, MCH 25.0 L , MCHC 30.5 L D, RDW Std Deviation 48.2 H, RDW Coeff of Lev 16.2 H, Plt Count 317, MPV 10.5, Immature Gran % (Auto) 0.400, Neut % (Auto) 71.4 H, Lymph % (Auto) 16.5 L, Fallon % (Auto) 8.3, Eos % (Auto) 2.6, Baso % (Auto) 0.8, Absolute Neuts (auto) 6.7, Absolute Lymphs (auto) 1.54, Nucleated RBC % 0, Sodium 138, Potassium 4.0, Chloride 108 H, Carbon Dioxide 28.0, Anion Gap 3 L, BUN 39 H, C reatinine 1.17 H, Estim Creat Clear Calc 36.98, Est GFR (MDRD) Af Amer 58 L, Est GFR (MDRD) Non-Af 48 L, BUN/Creatinine Ratio 33.3 H, Glucose 113 H, Calcium 9.1 Meaningful Use Info Meaningful Use Meaningful Use Diagnoses (Choose all that apply): None applicable Ischemic Stroke Statin Dosing Therapy Reference: STATIN DOSE THERAPY REFERENCE: * Patients > 75 years receive moderate or high dose statin therapy. * Patients 75 years or YOUNGER should receive HIGH intensity statin dose unless contraindicated. You will be required to document reason for non-treatment if statin daily dose does not meet guidelines. HIGH DOSE STATIN THERAPY DAILY Atorvastatin > than or = to 40 mg Rosuvastatin > than or = to 20 mg Amlodipine + Atorvastatin > than or = to 2.5/40 mg Ezetimibe + Simvastatin 10/80 mg Simvastatin 80mg Discharge Plan Admission Admit Date/Time: 06/17/24 15:25 Attending Provider: Eric Bay Primary Care Provider: Lenin Bhatt Instructions Patient Instructions: ED Mechanical Fall, ED Head Injury (Adult), ED Hip Contusion Discharge Orders/Prescriptions Prescriptions: New ferrous gluconate 324 mg (38 mg iron) tablet 324 mg PO DAILY Qty: 1 0RF Continued atorvastatin 20 MG tablet 20 mg PO QHS levetiracetam 500 MG tablet 500 mg PO BID sertraline 100 MG tablet 150 mg PO QHS clopidogrel 75 MG tablet 75 mg PO DAILY levothyroxine 50 MCG tablet 50 mcg PO DAILY carvedilol 12.5 MG tablet 12.5 mg PO BID aspirin 81 MG tablet 81 mg PO DAILY@0800 [id number]-[id number] 1 EACH tablet 1 tab PO DAILY lisinopril 5 MG tablet 5 mg PO QHS Qty: 0 0RF Rx Instructions: Hold for 5 more days spironolactone [Aldactone] 25 mg tablet 25 mg PO DAILY albuterol sulfate 2.5 mg /3 mL (0.083 %) solution for nebulization 1.25 mg inhalation Q6H PRN (Reason: shortness of breath or wheezing) acetaminophen-codeine 300-30 mg tablet 1 tab PO QHS PRN (Reason: pain) albuterol sulfate [Ventolin HFA] 90 mcg/actuation HFA aerosol inhaler 2 inh inhalation Q4H PRN (Reason: shortness of breath or wheezing) ibuprofen 400 mg tablet 400 mg PO Q6H PRN (Reason: pain) 30 Days Qty: 120 0RF Held furosemide 20 mg tablet 20 mg PO DAILY Hold Instructions: Resume on 06/23/24. Discontinued oxycodone 5 mg tablet 5 mg PO Q6H PRN (Reason: pain) 4 Days Qty: 16 0RF ciprofloxacin HCl 500 mg tablet 500 mg PO BID Qty: 14 0RF Patient Comments: PT GOT 7 DAY SUPPLY FILLED ON 06/12/24 Referrals / Follow Up: Lenin Bhatt MD [Primary Care Provider] - 3-5 Days Disposition Disposition (needs filled in before D/C Order can be placed): [facility] Charges/Coding Visit Charges Inpatient E&M: 09403 Disch Hosp >30min
== END 2024-06-21 12:00 | disposition skilled nursing facility (03) | DRG 682 ==
LOC: ED 12:58 → PCU 13:51
PROVIDERS: Admitting Provider Family Medicine; Emergency Provider Emergency Medicine; PCP Internal Medicine; Visit Provider Family Medicine
DX: N17.9 Acute kidney failure, unspecified (principal); E43 Unspecified severe protein-calorie malnutrition; L89.153 Pressure ulcer of sacral region, stage 3; R62.7 Adult failure to thrive; I11.0 Hypertensive heart disease with heart failure; G40.909 Epilepsy, unspecified, not intractable, without status epilepticus; E03.9 Hypothyroidism, unspecified; D50.9 Iron deficiency anemia, unspecified; S09.90XA Unspecified injury of head, initial encounter; I50.9 Heart failure, unspecified; E78.5 Hyperlipidemia, unspecified; S70.01XA Contusion of right hip, initial encounter; I25.10 Atherosclerotic heart disease of native coronary artery without angina pectoris; W08.XXXA Fall from other furniture, initial encounter; R82.71 Bacteriuria; R53.81 Other malaise; Z68.23 Body mass index [BMI] 23.0-23.9, adult; Z79.02 Long term (current) use of antithrombotics/antiplatelets; Z79.82 Long term (current) use of aspirin; Z79.890 Hormone replacement therapy; Z79.891 Long term (current) use of opiate analgesic; Z79.899 Other long term (current) drug therapy; Z90.710 Acquired absence of both cervix and uterus; Z86.73 Personal history of transient ischemic attack (TIA), and cerebral infarction without residual deficits
CPT/HCPCS: 36415; 70450; 72125; 73502; 80048; 81001; 82728; 83540; 83550; 84443; 85025; 97110; 97116; 97162; 97166; 97530; 97535; 97802; 99284; J7030; J7050; A4216; J2916

== ENCOUNTER 2024-06-21 12:05 | Inpatient (IN) | payer MEDICARE, MEDICAID, SELFPAY ==
[2024-06-21 12:51] VITALS: BP 138/50; PULSE 85; RESP 16; TEMP 36.3; O2SAT 94
--- NOTE | 2024-06-21 12:56 | HP.PCM_ITS ---
HPI - General General Date of Admission: 06/21/24 Date of Service: 06/21/24 Chief Complaint: Here for rehabilitation. HPI Narrative 06/17/2024 CASIE CORRAL, is a 73 F who presents to [facility] ED with fall, head injury. Fell off couch, hit head on end table, no LOC. Slight headache, mild right hip pain, usually walks with walker. CT brain showed old prior stroke, CT cervical spine showed degenerative changes. X-ray pelvis negative, X-ray right hip negative. Unable to walk. 06/17/2024 Admit [facility]. PT/OT Debility. IV fluids, hold Lisinopril, Hold Lasix, Hold Aldactone for acute kidney injury. Wound nurse for pressure ulcers. 06/18/2024 Doing well, no overnight issues. Finish Cipro course for urinary tract infection. 06/19/2024 Feels better. Creatinine improved from 1.84 to 1.17. Venofer IV for iron deficiency anemia. 06/20/2024 Doing well. Creatinine 1.04. PT/OT SNF. 06/21/2024 Admit to TCU with debility, here for rehabilitation, strengthening, prior to discharge home. [facility] Medical History (Updated 06/21/24 @ 13:[address] Kevon Eaton MD) Hypothyroid Depression CAD (coronary artery disease) Hyperlipemia Debility Sacral decubitus ulcer, stage III History of stroke HTN (hypertension) Seizure COVID-19 Iron deficiency anemia Heart failure Vertigo Home Medications ?Medication ?Instructions ?Recorded ?Last Taken ?Type atorvastatin 20 mg tablet 20 mg PO QHS cholesterol 08/17/18 06/16/24 History clopidogrel 75 mg tablet 75 mg PO DAILY anti platelet 08/17/18 06/16/24 History levetiracetam 500 mg tablet 500 mg PO BID seizures 08/17/18 06/16/24 History levothyroxine 50 mcg tablet 50 mcg PO DAILY Thyroid 08/17/18 06/16/24 History sertraline 100 mg tablet 150 mg PO QHS depression 08/17/18 06/16/24 History aspirin 81 mg tablet,delayed 81 mg PO DAILY@0800 heart health 08/28/20 06/16/24 History release carvedilol 12.5 mg tablet 12.5 mg PO BID heart 08/28/20 06/16/24 History multivitamin-iron 9 mg-folic acid 1 tab PO DAILY supplement 08/28/20 06/16/24 History 400 mcg-calcium and minerals tablet lisinopril 5 mg tablet 5 mg PO QHS bp ##0 08/31/20 06/16/24 Rx albuterol sulfate 2.5 mg/3 mL 1.25 mg inhalation Q6H PRN 03/25/23 06/16/24 History (0.083 %) solution for nebulization shortness of breath or wheezing furosemide 20 mg tablet 20 mg PO DAILY diuretic 03/25/23 06/16/24 History spironolactone 25 mg tablet 25 mg PO DAILY diuretic 03/25/23 06/16/24 History (Aldactone) ibuprofen 400 mg tablet 400 mg PO Q6H PRN pain 30 days 06/12/24 06/21/24 Rx #120 tabs acetaminophen 300 mg-codeine 30 mg 1 tab PO QHS PRN pain 06/17/24 06/16/24 History tablet albuterol sulfate 90 mcg/actuation 2 inh inhalation Q4H PRN shortness 06/17/24 06/16/24 History aerosol inhaler (Ventolin HFA) of breath or wheezing ferrous gluconate 324 mg (38 mg 324 mg PO DAILY Supplement #1 TAB 06/21/24 Unknown Rx iron) tablet Allergy/AdvReac Type Severity Reaction Status Date / Time No Known Allergies Allergy Verified 06/17/24 10: Family History Other Cancer Kidney disease Surgical History H/O hysterectomy with oophorectomy Social History (Updated 06/21/24 @ 13:[address] Kevon Eaton MD) household members: children housing: house current occupational status: retired Smoking Status: Former smoker alcohol intake: never substance use type: does not use ROS Constitutional Constitutional: Reports weakness; Denies chills, fever(s) or weight gain ENT HEENT: Denies headache(s), nasal congestion or nasal discharge Cardiovascular Cardiovascular: Denies chest pain or palpitations Respiratory/Chest Respiratory/Chest: Denies cough, excessive phlegm production or shortness of breath with exertion Gastrointestinal Gastrointestinal: Denies abdominal pain, nausea or vomiting Genitourinary Genitourinary: Denies dysuria Musculoskeletal Musculoskeletal: Denies joint pain or joint swelling Integumentary Integumentary: Denies rash or wounds Neurologic Neurologic: Denies focal weakness, numbness or tingling Psychiatric Psychiatric: Denies anxiety, auditory hallucinations, depression, homicidal ideation or suicidal ideation Physical Exam Const alert General Appearance: cooperative HEENT normocephalic Eyes PERRL and EOMs intact bilaterally Neck supple, no JVD and no carotid bruits Resp normal respiratory effort, normal air movement and clear to auscultation bilaterally Cardio regular rate and regular rhythm GI normal to inspection, nondistended, normoactive bowel sounds, non-tender and non-distended Extremity normal capillary refill General Extremity: Negative for edema Skin no rashes or lesions noted General Skin Exam: no breakdown Psych affect normal Appearance: appropriate Assessment & Plan Assessment/Plan (1) Debility: (2) Urinary tract infection: (3) THEODORE (acute kidney injury): (4) Sacral decubitus ulcer, stage III: (5) Hyperlipemia: (6) CAD (coronary artery disease): (7) Seizure disorder: (8) Hypothyroid: (9) Depression: (10) Essential (primary) hypertension: (11) Stroke: (12) Chronic heart failure with preserved ejection fraction (HFpEF): PLAN: Plan 73 year old female with below past medical history hospitalized for failure to thrive 2/2 urinary tract infection, acute kidney injury, iron deficiency anemia, admitted to TCU with debility, here for rehabilitation, strengthening, prior to discharge home with children. * Debility - PT/OT. * Pain - Tylenol 1000mg q6 prn pain (1-5), Tylenol #3 1 tablet qhs prn pain (6- 10). * Bowel - senna/colace 1 tablet bid, Magnesium citrate 300mL po daily prn. * Adult immunization - Administer pneumonia vaccine, covid vaccine, flu vaccine as appropriate. * DVT prophylaxis - Hold, on dual antiplatelet therapy. * Shortness of breath - Albuterol 2 puffs q4 prn * Coronary artery disease - Coreg 12.5mg bid, Plavix 75mg daily, Aspirin 81mg daily. * Stroke - Plavix 75mg daily, Aspirin 81mg daily. * Hyperlipidemia - Atorvastatin 20mg qhs. * Chronic HFpEF - Coreg 12.5mg bid, Aldactone 25mg daily, Furosemide 20mg daily. * Iron deficiency anemia - Ferrous Gluconate 324mg daily. * Seizure disorder - Keppra 500mg bid. * Hypothyroidism - Levothyroxine 50mcg daily. * Nutrition - MVI 1 tablet daily. * Depression - Sertraline 150mg qhs, stable chronic detention use, GDR not recommended.
[2024-06-21 13:42] VITALS: BMI 24.0
[2024-06-21 21:04] VITALS: BP 132/55; PULSE 98
[2024-06-21] MEDS: Menthol/Lanolin/Calamine/Znox 113 GM Tube 1 APPLIC TOPICAL (21:29)
[2024-06-21] MEDS: Nystatin Powder 15gm Bottle 1 APPLIC TOPICAL (21:29)
[2024-06-21] MEDS: 0.9% Saline Lock 10 ML Syringe IV (21:31)
[2024-06-21] MEDS: Senna/Docusate Sodium 1 Tablet PO (21:36)
[2024-06-21] MEDS: Atorvastatin Calcium 20 MG Tablet PO (21:36)
[2024-06-21] MEDS: Carvedilol 12.5 MG Tablet PO (21:36)
[2024-06-21] MEDS: levETIRAcetam 500 MG Tablet PO (21:36)
[2024-06-21] MEDS: Sertraline 100 MG Tablet 150 MG PO (21:37)
[2024-06-21] MEDS: Acetaminophen/Codeine #3 Tablet 1 TABLET PO (21:39)
[2024-06-22] MEDS: Levothyroxine 50 MCG Tablet PO (05:18)
[2024-06-22 06:14] LABS: Absolute Lymphocyte Count 1.25 X10^3/uL (0.83-4.51); Absolute Neutrophil Count 5.6 X10^3/uL (2.0-7.7); Basophil# 0.05 X10^3/uL; Basophil% 0.6 % (0-1); Eosinophil# 0.24 X10^3/uL; Eosinophils% 3.1 % (0-5); Hematocrit 29.3 % (37-47); Hemoglobin 8.7 g/dL (12.0-15.0); Lymphocyte # 1.25 X10^3/ul (0.83-4.51); Mean Corp Hgb Conc 29.7 g/dL (32-36); Mean Corpuscular Hgb 24.2 pg (27.0-32.0); Mean Corpuscular Volume 81.6 fL (81-99); Mean Platelet Vol. 9.9 fl (6.2-12.0); Monocyte# 0.64 X10^3/uL; Monocyte% 8.2 % (0-10); NRBC Flagged by Analyzer 0 % (0-5); Neutrophil # 5.58 X10^3/uL (2.7-7.7); Neutrophil % 71.6 % (47-70); Platelet Count 299 K/mm3 (150-450); RBC Distribution Width CV 16.5 % (11.6-14.6); RBC Distribution Width SD 48.7 fl (35.1-43.9); Red Blood Count 3.59 M/mm3 (4.2-5.4); White Blood Count 7.8 K/mm3 (4.4-11.0)
[2024-06-22 06:33] LABS: Anion Gap 3 (5-15); BUN 34 mg/dL (7-18); BUN/Creat Ratio 30.6 RATIO (10-20); Calcium,Total 8.9 mg/dL (8.5-10.1); Chloride 110 mmol/L (98-107); Creatinine, Serum 1.11 mg/dL (0.55-1.02); EST Glomerular Filtration Rate 51 mL/min (>60); Est Glom Filt Rate - Afr Amer 62 mL/min (>60); Estimated Creatinine Clearance 38.98 ml/min; Glucose 123 mg/dL (74-106); Potassium 3.5 mmol/L (3.5-5.1); Sodium Level 141 mmol/L (136-145)
[2024-06-22 09:00] VITALS: BP 116/45; PULSE 88; RESP 18; TEMP 36.8; O2SAT 95
[2024-06-22] MEDS: Multivitamins,Ther W-Minerals Tablet 1 TABLET PO (09:00)
[2024-06-22] MEDS: Ferrous Gluconate 324 MG Tablet PO (09:00)
[2024-06-22] MEDS: Senna/Docusate Sodium 1 Tablet PO ×2 (09:00→21:42)
[2024-06-22] MEDS: levETIRAcetam 500 MG Tablet PO ×2 (09:00→21:41)
[2024-06-22] MEDS: Carvedilol 12.5 MG Tablet PO ×2 (09:00→21:41)
[2024-06-22] MEDS: Spironolactone 25 MG Tablet PO (09:00)
[2024-06-22] MEDS: Aspirin E.C. 81 MG Tablet PO (09:00)
[2024-06-22] MEDS: Clopidogrel Bisulfate 75 MG Tablet PO (09:00)
[2024-06-22] MEDS: Nystatin Powder 15gm Bottle 1 APPLIC TOPICAL ×2 (09:01→21:45)
[2024-06-22] MEDS: Menthol/Lanolin/Calamine/Znox 113 GM Tube 1 APPLIC TOPICAL ×2 (09:01→21:45)
[2024-06-22 09:02] VITALS: O2SAT 90
[2024-06-22] MEDS: Tuberculin,Purif.prot.deriv. 50 TU/ML Vial 0.1 ML ID (10:03)
--- NOTE | 2024-06-22 11:12 | CASEMGMT ---
Social Work SW met with patient to complete initial assessment. Introduced self and role. Pt has expressive aphasia, limited with answers, and requires extra time to respond. Pt did verify contacts and confirm code status and DNR-CCA, no intubation. SW began educating to insurance, but pt interrupted this worker and this worker observed that information was overwhelming to pt. SW explained this worker will contact son to explain information to. Pt appreciative. SW received VM from Ana Hyman RN CM through [employer]. SW returned phone call. Confirmed pt receives MOW 5x/wk and medical alert button. Diane is CM through [employer]. 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 SW answered questions pertaining to TCU and insurance coverage. SW phoned son, William, to verify assessment information. Son can assist pt will all needs and has been talking to Diane on getting an aide to assist with showers at DC. SW to assist with coordination. Son provided PMH - see SW assessment for details. SW explained [facility] insurance with [employer] 06/23 and continued stay is not guaranteed with each review. Son would like focus on pt improving with strength and ambulation, but states he can assist with ADLs if needed. SW will continue to follow for DC planning. LEONOR TongW
--- NOTE | 2024-06-22 11:18 | CASEMGMT ---
Social Work requested son to provide copies of pt's advanced directives. Son agreeable. Lois Maya, LATENT PRINT EXAMINER DUMP TRUCK OPERATOR
[2024-06-22] MEDS: Acetaminophen/Codeine #3 Tablet 1 TABLET PO (19:31)
[2024-06-22] MEDS: Atorvastatin Calcium 20 MG Tablet PO (21:42)
[2024-06-22] MEDS: Sertraline 100 MG Tablet 150 MG PO (21:42)
[2024-06-23] MEDS: Levothyroxine 50 MCG Tablet PO (06:02)
[2024-06-23 09:03] VITALS: BP 111/54; PULSE 86; RESP 18; TEMP 37; O2SAT 96
[2024-06-23] MEDS: Aspirin E.C. 81 MG Tablet PO (09:07)
[2024-06-23] MEDS: levETIRAcetam 500 MG Tablet PO ×2 (09:07→20:15)
[2024-06-23] MEDS: Furosemide 20 MG Tablet PO (09:07)
[2024-06-23] MEDS: Carvedilol 12.5 MG Tablet PO ×2 (09:07→20:14)
[2024-06-23] MEDS: Spironolactone 25 MG Tablet PO (09:07)
[2024-06-23] MEDS: Ferrous Gluconate 324 MG Tablet PO (09:07)
[2024-06-23] MEDS: Multivitamins,Ther W-Minerals Tablet 1 TABLET PO (09:07)
[2024-06-23] MEDS: Menthol/Lanolin/Calamine/Znox 113 GM Tube 1 APPLIC TOPICAL ×2 (09:08→20:15)
[2024-06-23] MEDS: Clopidogrel Bisulfate 75 MG Tablet PO (09:08)
[2024-06-23] MEDS: Nystatin Powder 15gm Bottle 1 APPLIC TOPICAL ×2 (09:08→20:15)
[2024-06-23] MEDS: Senna/Docusate Sodium 1 Tablet PO ×2 (09:08→20:14)
--- NOTE | 2024-06-23 11:33 | NURSING ---
Hose Sprayer Note; Activity Asset: Genaro Gómez is independent in her choice of daily activities/reminders. She enjoys talking about her dog. After talking w/resident she stated dog dose not have rabies shots there for can not visits. The therapy dog has visited w/her and will continue to while here. She will work on word search and word find puzzles. She welcomes visits from the dye range operator cloth as well. Staff will continue to encourage social activities, remind her of weekly activities and respect her right to say no.
--- NOTE | 2024-06-23 14:42 | WOUNDNOTE ---
wound photo: sacrum
--- NOTE | 2024-06-23 14:43 | WOUNDNOTE ---
wound photo: left ischium
[2024-06-23] MEDS: Juven (unflavored) Packet 1 PACKET PO (17:57)
[2024-06-23 20:00] VITALS: RESP 16
[2024-06-23] MEDS: 0.9% Saline Lock 10 ML Syringe IV (20:13)
[2024-06-23] MEDS: Sertraline 100 MG Tablet 150 MG PO (20:14)
[2024-06-23] MEDS: Atorvastatin Calcium 20 MG Tablet PO (20:14)
[2024-06-23 20:31] VITALS: BP 132/55; PULSE 94
[2024-06-23] MEDS: Acetaminophen/Codeine #3 Tablet 1 TABLET PO (21:58)
[2024-06-24] MEDS: Levothyroxine 50 MCG Tablet PO (05:50)
[2024-06-24 06:41] LABS: Hematocrit 28.7 % (37-47); Hemoglobin 8.7 g/dL (12.0-15.0)
[2024-06-24] MEDS: Multivitamins,Ther W-Minerals Tablet 1 TABLET PO (10:09)
[2024-06-24] MEDS: Juven (unflavored) Packet 1 PACKET PO ×2 (10:09→17:32)
[2024-06-24] MEDS: Menthol/Lanolin/Calamine/Znox 113 GM Tube 1 APPLIC TOPICAL ×2 (10:09→21:42)
[2024-06-24] MEDS: Aspirin E.C. 81 MG Tablet PO (10:10)
[2024-06-24] MEDS: Carvedilol 12.5 MG Tablet PO ×2 (10:10→21:45)
[2024-06-24] MEDS: Spironolactone 25 MG Tablet PO (10:10)
[2024-06-24] MEDS: Ferrous Gluconate 324 MG Tablet PO (10:10)
[2024-06-24] MEDS: Clopidogrel Bisulfate 75 MG Tablet PO (10:11)
[2024-06-24] MEDS: Senna/Docusate Sodium 1 Tablet PO ×2 (10:11→21:47)
[2024-06-24] MEDS: Furosemide 20 MG Tablet PO (10:11)
[2024-06-24] MEDS: levETIRAcetam 500 MG Tablet PO ×2 (10:11→21:44)
[2024-06-24] MEDS: Nystatin Powder 15gm Bottle 1 APPLIC TOPICAL ×2 (10:12→21:46)
[2024-06-24 16:00] VITALS: BP 120/49; PULSE 84; RESP 16; TEMP 36.6; O2SAT 95
--- NOTE | 2024-06-24 19:55 | PHA.CONS_ITS ---
TCU RX Drug Regimen Review Subjective/Objective Subjective/Objective: Subjective: TCU Admission. 73 YOF presented to the ER with a fall. Hospitalized for failure to thrive 2/2 urinary tract infection, acute kidney injury, iron deficiency anemia. Admitted to TCU with debility for strengthening and re habilitation. Objective: Allergies No Known Allergies Allergy (Verified 06/17/24 10:24) Current Medications Generic Name Dose Route Start Last Admin Trade Name Freq PRN Reason Stop Dose Admin Acetaminophen 1,000 mg 06/21/24 13:51 Acetaminophen 500 Mg Tablet PO Q6H PRN PRN Pain Score 1-5 Acetaminophen/Codeine Phosphate 1 tablet 06/21/24 13:52 06/23/24 21:58 Acetaminophen/Codeine #3 Tablet PO 1 tablet QHS PRN Administration Pain Score 6-10 Albuterol Sulfate 2 puff 06/21/24 12:53 Albuterol Ih (6.7 Gm) 1 Puff Inhaler INHALATION Q4H PRN shortness of breath or wheezing Aspirin 81 mg 06/22/24 08:00 06/24/24 10:10 Aspirin E.C. 81 Mg Tablet PO 81 mg DAILYCM RADHA Administration Atorvastatin Calcium 20 mg 06/21/24 22:00 06/23/24 20:14 Atorvastatin Calcium 20 Mg Tablet PO 20 mg QHS RADHA Administration Calamine/Phenol 1 applic 06/21/24 22:00 06/24/24 10:09 Menthol/Lanolin/Calamine/Znox 113 Gm Tube TOPICAL 1 applic BID RADHA Administration Protocol Carvedilol 12.5 mg 06/21/24 22:00 06/24/24 10:10 Carvedilol 12.5 Mg Tablet PO 12.5 mg BID RADHA Administration Protocol Clopidogrel Bisulfate 75 mg 06/22/24 10:00 06/24/24 10:11 Clopidogrel Bisulfate 75 Mg Tablet PO 75 mg DAILY RADHA Administration Ferrous Gluconate 324 mg 06/22/24 08:00 06/24/24 10:10 Ferrous Gluconate 324 Mg Tablet PO 324 mg DAILYCM RADHA Administration Furosemide 20 mg 06/23/24 10:00 06/24/24 10:11 Furosemide 20 Mg Tablet PO 20 mg DAILY RADHA Administration Protocol L-Arginine/L-Glutamine/Calcium HMB 1 packet 06/23/24 17:00 06/24/24 17:32 Yariel (Unflavored) Packet PO 1 packet BIDCM RADHA Administration Levetiracetam 500 mg 06/21/24 22:00 06/24/24 10:11 Levetiracetam 500 Mg Tablet PO 500 mg BID RADHA Administration Levothyroxine Sodium 50 mcg 06/22/24 06:00 06/24/24 05:50 Levothyroxine 50 Mcg Tablet PO 50 mcg 0600 RADHA Administration Magnesium Citrate 300 ml 06/21/24 13:51 Magnesium Citrate 300 Ml PO DAILY PRN Constipation Multivitamins/Minerals 1 tablet 06/22/24 08:00 06/24/24 10:09 Multivitamins,Ther W-Minerals Tablet PO 1 tablet DAILYCM RADHA Administration Nystatin 1 applic 06/21/24 22:00 06/24/24 10:12 Nystatin Powder 15gm Bottle TOPICAL 1 applic BID RADHA Administration Protocol Senna/Docusate Sodium 1 tablet 06/21/24 22:00 06/24/24 10:11 Senna/Docusate Sodium 1 Tablet PO 1 tablet BID RADHA Administration Sertraline HCl 150 mg 06/21/24 22:00 06/23/24 20:14 Sertraline 100 Mg Tablet PO 150 mg QHS RADHA Administration Sodium Chloride 10 - 40 ml 06/21/24 13:22 06/23/24 20:13 0.9% Saline Lock 10 Ml Syringe IV 10 ml UD PRN Administration SALINE FLUSH Spironolactone 25 mg 06/22/24 10:00 06/24/24 10:10 Spironolactone 25 Mg Tablet PO 25 mg DAILY RADHA Administration Protocol Tuberculin PPD 0.1 ml 06/29/24 10:00 Tuberculin,Purif.Prot.Deriv. 50 Tu/Ml Vial ID 06/29/24 10:01 X1 ONE Problem List Chronic heart failure with preserved ejection fraction (HFpEF) (Acute) Stroke (Acute) Essential (primary) hypertension (Acute) Depression (Acute) Hypothyroid (Acute) Seizure disorder (Acute) CAD (coronary artery disease) (Acute) Hyperlipemia (Acute) Urinary tract infection (Acute) Debility (Acute) Sacral decubitus ulcer, stage III (Acute) THEODORE (acute kidney injury) (Acute) Vital Signs Temp Pulse Resp BP Pulse Ox O2 Del Method 97.8 F 84 16 120/49 L 95 Room Air 06/24/24 16:00 06/24/24 16:00 06/24/24 16:00 06/24/24 16:00 06/24/24 16:00 06/24/24 16:00 Oxygen Delivery Method Room Air Weight: 63.673 kg Body Mass Index (BMI) 24.0 Sodium 141 mmol/L (136-145) 06/22/24 05:32 Potassium 3.5 mmol/L (3.5-5.1) 06/22/24 05:32 Chloride 110 mmol/L (98-107) H 06/22/24 05:32 Carbon Dioxide 28.0 mmol/L (21.0-32.0) 06/22/24 05:32 Anion Gap 3 (5-15) L 06/22/24 05:32 BUN 34 mg/dL (7-18) H 06/22/24 05:32 Creatinine 1.11 mg/dL (0.55-1.02) H 06/22/24 05:32 Est GFR (MDRD) Af Amer 62 mL/min (>60) 06/22/24 05:32 Est GFR (MDRD) Non-Af 51 mL/min (>60) L 06/22/24 05:32 BUN/Creatinine Ratio 30.6 RATIO (10-20) H 06/22/24 05:32 Glucose 123 mg/dL (74-106) H 06/22/24 05:32 Assessment/Plan: 1. Pain: acetaminophen 1000mg PO Q6H PRN pain 1-5 and acetaminophen/codeine #3 1T PO QHS PRN pain 6-10. Resident has had 3 doses of acetaminophen/codeine #3 for pain scores of 7 and 10 in the knee/legs. Please continue to monitor for increased pain, constipation, respiratory depression and PRN usage. 2. Bowel: senna/docusate 1T PO BID and magnesium citrate 300mL PO daily PRN constipation. Resident has not had any PRN doses. Please continue to monitor for constipation and PRN usage. Last documented bowel movement was 06/23. 3. CAD/stroke/CHF: carvedilol 12.5mg PO BID, spironolactone 25mg PO daily, furosemide 20mg PO daily, clopidogrel 75mg PO daily, aspirin 81mg PO daily. Please continue to monitor HR (last 84), BP (last 120/49), S/S of bleeding, hemoglobin (last 8.7g/dL), potassium (last 3.5mmol/L), sodium (last 141mmol/L), swelling and renal function (last SCr 1.11mg/dL). 4. Hypothyroidism: levothyroxine 50mcg PO daily. Please continue to monitor for S/S of hypo/hyperthyroidism and TSH (last 06/17/24). 5. Hyperlipidemia: atorvastatin 20mg PO QHS. Please consider ordering a lipid panel as there is no panel in the chart. Please continue to monitor for muscle pain. 6. Iron deficiency anemia: ferrous gluconate 324mg PO daily. Please continue to monitor hemoglobin, dark stools, constipation and iron studies (last 06/18/24). 7. Seizure disorder: levetiracetam 500mg PO BID. Please continue to monitor for S/S of seizures, renal function, rash, falls/fractures (BEERs medication) and drowsiness. 8. Nutrition: multivitamin with minerals 1T PO daily. Please continue to monitor. 9. Shortness of breath: albuterol MDI 2 puffs Q4H PRN shortness of breath or wheezing. Resident has not had any doses. Please continue to monitor for PRN usage, shortness of breath and wheezing. Assessment/Plan for indications treated with psychotropic medications: 1. Depression: sertraline 150mg PO QHS. Please see physician note regarding GDR. Please continue to monitor for suicidal ideation (black box warning), sodium and falls/fractures (BEERs medication). Medical chart and medication regimen reviewed. The following medication irregularities or issues were identified: 1. Atorvastatin 20mg PO QHS. Please consider ordering a lipid panel as there is no panel in the chart. Thanks. Date Date of Note:: 06/24/24
[2024-06-24 20:00] VITALS: PULSE 92; O2SAT 92
[2024-06-24] MEDS: Atorvastatin Calcium 20 MG Tablet PO (21:46)
[2024-06-24] MEDS: Sertraline 100 MG Tablet 150 MG PO (21:47)
[2024-06-24] MEDS: Acetaminophen/Codeine #3 Tablet 1 TABLET PO (21:53)
[2024-06-24] MEDS: 0.9% Saline Lock 10 ML Syringe IV (21:56)
[2024-06-24 22:01] VITALS: BP 136/51; PULSE 92; O2SAT 92
[2024-06-25] MEDS: Levothyroxine 50 MCG Tablet PO (05:52)
[2024-06-25 10:20] VITALS: BP 123/49; PULSE 90; RESP 16; TEMP 36.3; O2SAT 93
[2024-06-25] MEDS: Juven (unflavored) Packet 1 PACKET PO ×2 (10:22→17:06)
[2024-06-25] MEDS: Multivitamins,Ther W-Minerals Tablet 1 TABLET PO (10:22)
[2024-06-25] MEDS: Aspirin E.C. 81 MG Tablet PO (10:22)
[2024-06-25] MEDS: Ferrous Gluconate 324 MG Tablet PO (10:22)
[2024-06-25] MEDS: Spironolactone 25 MG Tablet PO (10:22)
[2024-06-25] MEDS: Furosemide 20 MG Tablet PO (10:23)
[2024-06-25] MEDS: levETIRAcetam 500 MG Tablet PO ×2 (10:23→21:16)
[2024-06-25] MEDS: Carvedilol 12.5 MG Tablet PO ×2 (10:23→21:17)
[2024-06-25] MEDS: Menthol/Lanolin/Calamine/Znox 113 GM Tube 1 APPLIC TOPICAL ×2 (10:23→21:14)
[2024-06-25] MEDS: Clopidogrel Bisulfate 75 MG Tablet PO (10:24)
[2024-06-25] MEDS: Nystatin Powder 15gm Bottle 1 APPLIC TOPICAL ×2 (10:24→21:14)
[2024-06-25 11:19] LABS: Cholesterol 112 mg/dL (200); High Density Lipoprotein 43 mg/dL; Triglycerides 136 mg/dL; Very Low Density Lipoprotein 27 mg/dL (5-40)
[2024-06-25 21:12] VITALS: BP 136/54; PULSE 98
[2024-06-25] MEDS: Atorvastatin Calcium 20 MG Tablet PO (21:17)
[2024-06-25] MEDS: Sertraline 100 MG Tablet 150 MG PO (21:17)
[2024-06-25] MEDS: Acetaminophen/Codeine #3 Tablet 1 TABLET PO (21:23)
[2024-06-26] MEDS: Levothyroxine 50 MCG Tablet PO (05:25)
[2024-06-26 06:06] LABS: Hematocrit 31.2 % (37-47); Hemoglobin 9.5 g/dL (12.0-15.0)
[2024-06-26 06:49] VITALS: PULSE 90
[2024-06-26 08:13] VITALS: BP 139/49; PULSE 85; RESP 17; TEMP 36.5; O2SAT 93
[2024-06-26] MEDS: Juven (unflavored) Packet 1 PACKET PO ×2 (08:17→16:42)
[2024-06-26] MEDS: Aspirin E.C. 81 MG Tablet PO (08:17)
[2024-06-26] MEDS: Multivitamins,Ther W-Minerals Tablet 1 TABLET PO (08:17)
[2024-06-26] MEDS: Spironolactone 25 MG Tablet PO (08:17)
[2024-06-26] MEDS: Ferrous Gluconate 324 MG Tablet PO (08:17)
[2024-06-26] MEDS: Menthol/Lanolin/Calamine/Znox 113 GM Tube 1 APPLIC TOPICAL ×2 (08:18→20:17)
[2024-06-26] MEDS: Nystatin Powder 15gm Bottle 1 APPLIC TOPICAL ×2 (08:18→20:17)
[2024-06-26] MEDS: Furosemide 20 MG Tablet PO (08:18)
[2024-06-26] MEDS: Carvedilol 12.5 MG Tablet PO ×2 (08:18→20:16)
[2024-06-26] MEDS: levETIRAcetam 500 MG Tablet PO ×2 (08:18→20:16)
[2024-06-26] MEDS: Clopidogrel Bisulfate 75 MG Tablet PO (08:19)
--- NOTE | 2024-06-26 12:42 | NURSING ---
Offered covid vaccine, VIS provided. Resident refuses at this time.
[2024-06-26] MEDS: Sertraline 100 MG Tablet 150 MG PO (20:16)
[2024-06-26] MEDS: Acetaminophen/Codeine #3 Tablet 1 TABLET PO (20:16)
[2024-06-26] MEDS: Atorvastatin Calcium 20 MG Tablet PO (20:16)
[2024-06-26 20:19] VITALS: BP 137/58; PULSE 99
[2024-06-27] MEDS: Levothyroxine 50 MCG Tablet PO (05:31)
[2024-06-27] MEDS: Furosemide 20 MG Tablet PO (07:48)
[2024-06-27] MEDS: Spironolactone 25 MG Tablet PO (07:48)
[2024-06-27] MEDS: Ferrous Gluconate 324 MG Tablet PO (07:48)
[2024-06-27] MEDS: Aspirin E.C. 81 MG Tablet PO (07:48)
[2024-06-27] MEDS: Multivitamins,Ther W-Minerals Tablet 1 TABLET PO (07:48)
[2024-06-27] MEDS: Clopidogrel Bisulfate 75 MG Tablet PO (07:48)
[2024-06-27] MEDS: Carvedilol 12.5 MG Tablet PO ×2 (07:48→20:37)
[2024-06-27] MEDS: Juven (unflavored) Packet 1 PACKET PO ×2 (07:48→16:27)
[2024-06-27] MEDS: levETIRAcetam 500 MG Tablet PO ×2 (07:48→20:37)
[2024-06-27] MEDS: Menthol/Lanolin/Calamine/Znox 113 GM Tube 1 APPLIC TOPICAL ×2 (07:49→20:38)
[2024-06-27] MEDS: Nystatin Powder 15gm Bottle 1 APPLIC TOPICAL ×2 (07:49→20:38)
[2024-06-27 10:56] VITALS: BMI 24.0
[2024-06-27 14:18] VITALS: BP 121/54; PULSE 87; RESP 14; TEMP 36.6; O2SAT 95
[2024-06-27] MEDS: Atorvastatin Calcium 20 MG Tablet PO (20:37)
[2024-06-27] MEDS: Senna/Docusate Sodium 1 Tablet PO (20:37)
[2024-06-27] MEDS: Sertraline 100 MG Tablet 150 MG PO (20:37)
[2024-06-27] MEDS: Acetaminophen/Codeine #3 Tablet 1 TABLET PO (20:38)
[2024-06-27 20:42] VITALS: BP 133/47; PULSE 95
[2024-06-27 20:43] VITALS: PULSE 95; RESP 16
[2024-06-28 05:00] VITALS: RESP 16
[2024-06-28] MEDS: Levothyroxine 50 MCG Tablet PO (05:07)
[2024-06-28] MEDS: Juven (unflavored) Packet 1 PACKET PO ×2 (08:58→16:35)
[2024-06-28] MEDS: Aspirin E.C. 81 MG Tablet PO (08:58)
[2024-06-28] MEDS: Multivitamins,Ther W-Minerals Tablet 1 TABLET PO (08:58)
[2024-06-28] MEDS: Ferrous Gluconate 324 MG Tablet PO (08:58)
[2024-06-28] MEDS: Spironolactone 25 MG Tablet PO (08:58)
[2024-06-28] MEDS: Carvedilol 12.5 MG Tablet PO ×2 (08:59→22:42)
[2024-06-28] MEDS: Menthol/Lanolin/Calamine/Znox 113 GM Tube 1 APPLIC TOPICAL ×2 (08:59→22:43)
[2024-06-28] MEDS: Furosemide 20 MG Tablet PO (09:00)
[2024-06-28] MEDS: Nystatin Powder 15gm Bottle 1 APPLIC TOPICAL ×2 (09:00→22:42)
[2024-06-28] MEDS: levETIRAcetam 500 MG Tablet PO ×2 (09:00→22:42)
[2024-06-28] MEDS: Clopidogrel Bisulfate 75 MG Tablet PO (09:01)
[2024-06-28] MEDS: Senna/Docusate Sodium 1 Tablet PO ×2 (09:01→22:42)
--- NOTE | 2024-06-28 09:10 | NURSING ---
Director Nurses' Registry Note; MDS for 06/28/2024 Complete
--- NOTE | 2024-06-28 10:33 | CASEMGMT ---
Social Work IDT met with patient and two sons for care plan meeting. Discussed patient's progress in PT/OT/ST/SN. Educated to [facility] NRD 06/29, EDC 07/03, continued stay is not guaranteed with each review. SW educated to day 21 is 12, and pt would need to DC or transfer to another SNF that is INN with Medicaid. Provided son with written communication on insurance process and copay coverage during stay. Pt's goal is to return home with son at [facility]. Son stated he can assist as needed, though pt only has a bathtub and needs to be able to get in/out of tub. SW offered to speak with XIOMARA Contreras, on getting an extended tub bench, along with a [employer]. Son also mentioned pt's stair lift is broken, but the company stated they will want pt to be home before fixing it. SW offered to speak with Diane about having the stair lift fixed prior to DC and provided EDC date. Son appreciative. SW will continue to follow for DC planning and contact CM. Lois Maya, [employer] INTERFACE DEVELOPER DIRECTOR WRITING
[2024-06-28 11:30] VITALS: BP 124/59; PULSE 89; RESP 16; TEMP 36.4; O2SAT 96
--- NOTE | 2024-06-28 13:42 | CASEMGMT ---
PHQ9 (0) and BIMS (04/13) interviews completed on this date for MDS assessment. SERGE Murphy
--- NOTE | 2024-06-28 15:18 | WOUNDNOTE ---
wound photo: sacrum
--- NOTE | 2024-06-28 15:19 | WOUNDNOTE ---
wound photo: left ischium
[2024-06-28 22:35] VITALS: BP 124/51; PULSE 93
[2024-06-28] MEDS: Acetaminophen/Codeine #3 Tablet 1 TABLET PO (22:42)
[2024-06-28] MEDS: Sertraline 100 MG Tablet 150 MG PO (22:42)
[2024-06-28] MEDS: Atorvastatin Calcium 20 MG Tablet PO (22:42)
[2024-06-29] MEDS: Levothyroxine 50 MCG Tablet PO (05:10)
[2024-06-29 06:02] LABS: Absolute Lymphocyte Count 1.86 X10^3/uL (0.83-4.51); Absolute Neutrophil Count 4.7 X10^3/uL (2.0-7.7); Basophil# 0.07 X10^3/uL; Basophil% 0.9 % (0-1); Eosinophil# 0.32 X10^3/uL; Eosinophils% 4.2 % (0-5); Hematocrit 31.6 % (37-47); Hemoglobin 9.3 g/dL (12.0-15.0); Lymphocyte # 1.86 X10^3/ul (0.83-4.51); Lymphocyte % 24.2 % (19-41); Mean Corp Hgb Conc 29.4 g/dL (32-36); Mean Corpuscular Hgb 24.8 pg (27.0-32.0); Mean Corpuscular Volume 84.3 fL (81-99); Mean Platelet Vol. 9.9 fl (6.2-12.0); Monocyte# 0.72 X10^3/uL; Monocyte% 9.4 % (0-10); NRBC Flagged by Analyzer 0 % (0-5); Neutrophil % 60.9 % (47-70); Platelet Count 333 K/mm3 (150-450); RBC Distribution Width SD 52.1 fl (35.1-43.9); Red Blood Count 3.75 M/mm3 (4.2-5.4); White Blood Count 7.7 K/mm3 (4.4-11.0)
[2024-06-29 06:28] LABS: Anion Gap 3 (5-15); BUN 41 mg/dL (7-18); BUN/Creat Ratio 40.2 RATIO (10-20); Calcium,Total 9.3 mg/dL (8.5-10.1); Chloride 103 mmol/L (98-107); Creatinine, Serum 1.02 mg/dL (0.55-1.02); EST Glomerular Filtration Rate 56 mL/min (>60); Est Glom Filt Rate - Afr Amer 68 mL/min (>60); Estimated Creatinine Clearance 42.42 ml/min; Glucose 130 mg/dL (74-106); Potassium 4.4 mmol/L (3.5-5.1); Sodium Level 138 mmol/L (136-145)
[2024-06-29] MEDS: Juven (unflavored) Packet 1 PACKET PO ×2 (09:17→16:34)
[2024-06-29] MEDS: Aspirin E.C. 81 MG Tablet PO (09:17)
[2024-06-29] MEDS: Multivitamins,Ther W-Minerals Tablet 1 TABLET PO (09:17)
[2024-06-29] MEDS: Spironolactone 25 MG Tablet PO (09:17)
[2024-06-29] MEDS: Ferrous Gluconate 324 MG Tablet PO (09:17)
[2024-06-29] MEDS: levETIRAcetam 500 MG Tablet PO ×2 (09:18→20:39)
[2024-06-29] MEDS: Carvedilol 12.5 MG Tablet PO ×2 (09:18→20:39)
[2024-06-29] MEDS: Senna/Docusate Sodium 1 Tablet PO ×2 (09:19→20:40)
[2024-06-29] MEDS: Clopidogrel Bisulfate 75 MG Tablet PO (09:19)
[2024-06-29] MEDS: Furosemide 20 MG Tablet PO (09:19)
[2024-06-29] MEDS: Menthol/Lanolin/Calamine/Znox 113 GM Tube 1 APPLIC TOPICAL ×2 (09:19→20:40)
[2024-06-29] MEDS: Nystatin Powder 15gm Bottle 1 APPLIC TOPICAL ×2 (09:20→20:38)
[2024-06-29 09:26] VITALS: BP 117/59; PULSE 92
[2024-06-29] MEDS: Tuberculin,Purif.prot.deriv. 50 TU/ML Vial 0.1 ML ID (11:40)
[2024-06-29 13:47] VITALS: BP 104/52; PULSE 88; RESP 16; TEMP 36.3; O2SAT 95
--- NOTE | 2024-06-29 15:11 | CASEMGMT ---
Social Work VM left with Haritha Worrell, pts Direction Equity Director. SW requesting that home health aides be added to pt's care plan and notified that pt will need a tub bench at time of dc. ANNIE also informed Haritha that pt's stair lift is broken and requested that Haritha look into repairs for this. SERGE Alves
[2024-06-29 20:30] VITALS: PULSE 103; RESP 15
[2024-06-29] MEDS: Acetaminophen/Codeine #3 Tablet 1 TABLET PO (20:38)
[2024-06-29] MEDS: Atorvastatin Calcium 20 MG Tablet PO (20:39)
[2024-06-29] MEDS: Sertraline 100 MG Tablet 150 MG PO (20:40)
[2024-06-29 20:44] VITALS: BP 120/57; PULSE 103
[2024-06-30] MEDS: Levothyroxine 50 MCG Tablet PO (05:33)
[2024-06-30] MEDS: Juven (unflavored) Packet 1 PACKET PO ×2 (08:07→17:43)
[2024-06-30] MEDS: Carvedilol 12.5 MG Tablet PO ×2 (08:07→21:29)
[2024-06-30] MEDS: Multivitamins,Ther W-Minerals Tablet 1 TABLET PO (08:07)
[2024-06-30] MEDS: Ferrous Gluconate 324 MG Tablet PO (08:07)
[2024-06-30] MEDS: levETIRAcetam 500 MG Tablet PO ×2 (08:07→21:29)
[2024-06-30] MEDS: Spironolactone 25 MG Tablet PO (08:07)
[2024-06-30] MEDS: Aspirin E.C. 81 MG Tablet PO (08:07)
[2024-06-30] MEDS: Senna/Docusate Sodium 1 Tablet PO ×2 (08:08→21:30)
[2024-06-30] MEDS: Furosemide 20 MG Tablet PO (08:08)
[2024-06-30] MEDS: Clopidogrel Bisulfate 75 MG Tablet PO (08:08)
[2024-06-30] MEDS: Nystatin Powder 15gm Bottle 1 APPLIC TOPICAL ×2 (08:12→21:29)
[2024-06-30 10:00] VITALS: BP 129/63; PULSE 88; RESP 18; TEMP 36.7; O2SAT 93
--- NOTE | 2024-06-30 10:59 | CASEMGMT ---
Social Work SW received return call from Diane SOLANO that pt was approved for 15 hrs/wk of aides through [employer]; pt can get tub bench, and XIOMARA notified stair lift company on EDC to begin working on repair. SW returned call to confirm services. SW spoke with son to update and will notify son of insurance outcome. Son appreciative. SW will continue to follow. LEONOR TongW
--- NOTE | 2024-06-30 13:03 | CASEMGMT ---
Social Work Insurance issued LCD 07/02, DC 07/03. SW phoned son to update on DC date and appeal rights. Son agreeable to DC and the services that will be in place at [place]. SW offered skilled HHC. Son agreed. SW offered list of providers, but son stated [facility] prior. SW to place referral. Pt has no other DME needs. Son can transport. SW spoke with pt to update on DC date and services. SW phoned referral to [facility] for PT/OT/ST/SN. SW left VM with Diane of DC date. Plan: DC home with son 07/03, [facility] PT/OT/ST/SN, 15 hrs/wk of [employer] through LEONOR Castro
--- NOTE | 2024-06-30 13:24 | CASEMGMT ---
Social Work BIMS (07/14) and PHQ-2 () completed for MDS assessment. Lois Maya MSW CONFERENCE CONCIERGE
--- NOTE | 2024-06-30 13:36 | WOUNDNOTE ---
wound photo: left heel
--- NOTE | 2024-06-30 13:56 | DS.PCM_ITS ---
Providers Date of Admission: 06/21/24 Primary Care Physician: Dr. Lenin Bhatt MD Consultations 06/21/24 13:07 Consult: Onc/Wound/heat and vent aircraft mechanic Routine Comment: Reason For Visit: FALL AND WEAKNESS Diagnosis Discharge Diagnosis (1) Debility: Status: Acute Code(s): R53.81 - Other malaise (2) Urinary tract infection: Status: Acute Code(s): N39.0 - Urinary tract infection, site not specified (3) THEODORE (acute kidney injury): Status: Resolved Code(s): N17.9 - Acute kidney failure, unspecified (4) Sacral decubitus ulcer, stage III: Status: Acute Code(s): L89.153 - Pressure ulcer of sacral region, stage 3 (5) Hyperlipemia: Status: Acute Code(s): E78.5 - Hyperlipidemia, unspecified (6) CAD (coronary artery disease): Status: Acute Code(s): I25.10 - Atherosclerotic heart disease of [place] coronary artery without angina pectoris (7) Seizure disorder: Status: Acute Code(s): G40.909 - Epilepsy, unspecified, not intractable, without status epilepticus (8) Hypothyroid: Status: Acute Code(s): E03.9 - Hypothyroidism, unspecified (9) Depression: Status: Acute Code(s): F32.9 - Major depressive disorder, single episode, unspecified (10) Essential (primary) hypertension: Status: Acute Code(s): I10 - Essential (primary) hypertension (11) Stroke: Status: Acute Code(s): I63.9 - Cerebral infarction, unspecified (12) Chronic heart failure with preserved ejection fraction (HFpEF): Status: Acute Code(s): I50.32 - Chronic diastolic (congestive) heart failure Plan 73 year old female with below past medical history hospitalized for failure to thrive 2/2 urinary tract infection, acute kidney injury, iron deficiency anemia, admitted to TCU with debility, here for rehabilitation, strengthening, prior to discharge home with children. * Debility - PT/OT. * Pain - Tylenol 1000mg q6 prn pain (1-5), Tylenol #3 1 tablet qhs prn pain (6- 10). * Bowel - senna/colace 1 tablet bid, Magnesium citrate 300mL po daily prn. * Adult immunization - Administer pneumonia vaccine, covid vaccine, flu vaccine as appropriate. * DVT prophylaxis - Hold, on dual antiplatelet therapy. * Shortness of breath - Albuterol 2 puffs q4 prn * Coronary artery disease - Coreg 12.5mg bid, Plavix 75mg daily, Aspirin 81mg daily. * Stroke - Plavix 75mg daily, Aspirin 81mg daily. * Hyperlipidemia - Atorvastatin 20mg qhs. * Chronic HFpEF - Coreg 12.5mg bid, Aldactone 25mg daily, Furosemide 20mg daily. * Iron deficiency anemia - Ferrous Gluconate 324mg daily. * Seizure disorder - Keppra 500mg bid. * Hypothyroidism - Levothyroxine 50mcg daily. * Nutrition - MVI 1 tablet daily. * Depression - Sertraline 150mg qhs, stable chronic nursing home use, GDR not recommended. Medications at Discharge Home Medications atorvastatin 20 mg tablet 20 mg PO QHS cholesterol 08/17/18 clopidogrel 75 mg tablet 75 mg PO DAILY anti platelet 08/17/18 levetiracetam 500 mg tablet 500 mg PO BID seizures 08/17/18 levothyroxine 50 mcg tablet 50 mcg PO DAILY Thyroid 08/17/18 sertraline 100 mg tablet 150 mg PO QHS depression 08/17/18 aspirin 81 mg tablet,delayed release 81 mg PO DAILY@0800 heart health 08/28/20 carvedilol 12.5 mg tablet 12.5 mg PO BID heart 08/28/20 multivitamin-iron 9 mg-folic acid 400 mcg-calcium and minerals tablet 1 tab PO DAILY supplement 08/28/20 furosemide 20 mg tablet 20 mg PO DAILY diuretic 03/25/23 spironolactone 25 mg tablet (Aldactone) 25 mg PO DAILY diuretic 03/25/23 acetaminophen 300 mg-codeine 30 mg tablet 1 tab PO QHS PRN pain 06/17/24 albuterol sulfate 90 mcg/actuation aerosol inhaler (Ventolin HFA) 2 inh inhalation Q4H PRN shortness of breath or wheezing 06/17/24 ferrous gluconate 324 mg (38 mg iron) tablet 324 mg PO DAILY Supplement #1 TAB 06/21/24 arginine 7 gram-glutam 7 gram-CaHMB 1.5 [id number] oral pwd pkt (Yariel (with collagen)) 1 packet PO BIDCM 30 days #60 ea 06/30/24 Hospital Course Operations None Procedures None Summary of Care Provided Minutes Spent on Discharge: 35 Hospital Course: 73 year old female with below past medical history hospitalized for failure to thrive 2/2 urinary tract infection, acute kidney injury, iron deficiency anemia, admitted to TCU with debility, here for rehabilitation, strengthening, prior to discharge home with children. Discharge home with son 07/03/2024, [facility] PT/OT/ST/SN, 15 hrs/wk of [employer] thru waiver. Physical Exam Const alert General Appearance: cooperative HEENT normocephalic Eyes PERRL and EOMs intact bilaterally Neck supple, no JVD and no carotid bruits Resp normal respiratory effort, normal air movement and clear to auscultation bilaterally Cardio regular rate and regular rhythm GI normal to inspection, nondistended, normoactive bowel sounds, non-tender and non-distended Extremity normal capillary refill General Extremity: Negative for edema Skin no rashes or lesions noted General Skin Exam: no breakdown Psych affect normal Appearance: appropriate Weight / BMI Weight Weight: 63.503 kg Body Mass Index (BMI) 24.0 ABG / Lab / Microbiology Data 06/29/24 05:27 06/29/24 05:27 D/C Instructions Discharge Diet: No restrictions Discharge Activity: Return to Normal Activity, May Shower and Use Walker Weight Bearing Status: Weight bearing as tolerated Call your doctor if you observe: Fever of 101 or Higher, Inability to urinate, Inability to have a bowel movement, Shortness of breath, Dizziness, Fainting spells, Swelling in the ankles, Chest pain and Uncontrolled pain Additional Instructions: Discharge home with son 07/03/2024, [facility] PT/OT/ST/SN, 15 hrs/wk of RUNNER OUT thru waiver. Meaningful Use Info Meaningful Use Meaningful Use Diagnoses (Choose all that apply): None applicable Ischemic Stroke Statin Dosing Therapy Reference: STATIN DOSE THERAPY REFERENCE: * Patients > 75 years receive moderate or high dose statin therapy. * Patients 75 years or YOUNGER should receive HIGH intensity statin dose unless contraindicated. You will be required to document reason for non-treatment if statin daily dose does not meet guidelines. HIGH DOSE STATIN THERAPY DAILY Atorvastatin > than or = to 40 mg Rosuvastatin > than or = to 20 mg Amlodipine + Atorvastatin > than or = to 2.5/40 mg Ezetimibe + Simvastatin 10/80 mg Simvastatin 80mg Discharge Plan Admission Admit Date/Time: 06/21/24 12:05 Primary Reason for Your Visit: Debility. Attending Provider: Kevon Eaton Chi Primary Care Provider: Lenin Bhatt Instructions Additional Instructions / Restrictions: Discharge home with son 07/03/2024, [facility] PT/OT/ST/SN, 15 hrs/wk of RUNNER OUT thru waiver. Discharge Orders/Prescriptions Prescriptions: [place]ariel (with collagen) 7-7-1.5 gram Powder In Packet 1 packet PO BIDCM 30 Days Qty: 60 0RF Continued atorvastatin 20 MG tablet 20 mg PO QHS levetiracetam 500 MG tablet 500 mg PO BID sertraline 100 MG tablet 150 mg PO QHS clopidogrel 75 MG tablet 75 mg PO DAILY levothyroxine 50 MCG tablet 50 mcg PO DAILY carvedilol 12.5 MG tablet 12.5 mg PO BID aspirin 81 MG tablet 81 mg PO DAILY@0800 acbttknn-[id number]-VH-calcium-mins 1 EACH tablet 1 tab PO DAILY spironolactone [Aldactone] 25 mg tablet 25 mg PO DAILY furosemide 20 mg tablet 20 mg PO DAILY acetaminophen-codeine 300-30 mg tablet 1 tab PO QHS PRN (Reason: pain) albuterol sulfate [Ventolin HFA] 90 mcg/actuation HFA aerosol inhaler 2 inh inhalation Q4H PRN (Reason: shortness of breath or wheezing) ferrous gluconate 324 mg (38 mg iron) tablet 324 mg PO DAILY Qty: 1 0RF Discontinued lisinopril 5 MG tablet 5 mg PO QHS Qty: 0 0RF Rx Instructions: Hold for 5 more days albuterol sulfate 2.5 mg /3 mL (0.083 %) solution for nebulization 1.25 mg inhalation Q6H PRN (Reason: shortness of breath or wheezing) ibuprofen 400 mg tablet 400 mg PO Q6H PRN (Reason: pain) 30 Days Qty: 120 0RF Referrals / Follow Up: Lenin Bhatt MD [Primary Care Provider] - Disposition Disposition (needs filled in before D/C Order can be placed): Home Health Service
[2024-06-30 20:07] VITALS: PULSE 94; RESP 16
[2024-06-30 21:25] VITALS: BP 134/64; PULSE 94
[2024-06-30] MEDS: Acetaminophen/Codeine #3 Tablet 1 TABLET PO (21:28)
[2024-06-30] MEDS: Sertraline 100 MG Tablet 150 MG PO (21:29)
[2024-06-30] MEDS: Menthol/Lanolin/Calamine/Znox 113 GM Tube 1 APPLIC TOPICAL (21:29)
[2024-06-30] MEDS: Atorvastatin Calcium 20 MG Tablet PO (21:29)
[2024-07-01] MEDS: Levothyroxine 50 MCG Tablet PO (05:29)
[2024-07-01] MEDS: Ferrous Gluconate 324 MG Tablet PO (09:15)
[2024-07-01] MEDS: Senna/Docusate Sodium 1 Tablet PO ×2 (09:15→22:18)
[2024-07-01] MEDS: Spironolactone 25 MG Tablet PO (09:15)
[2024-07-01] MEDS: Multivitamins,Ther W-Minerals Tablet 1 TABLET PO (09:16)
[2024-07-01] MEDS: Menthol/Lanolin/Calamine/Znox 113 GM Tube 1 APPLIC TOPICAL ×2 (09:16→22:19)
[2024-07-01] MEDS: levETIRAcetam 500 MG Tablet PO ×2 (09:18→22:18)
[2024-07-01] MEDS: Juven (unflavored) Packet 1 PACKET PO ×2 (09:18→16:46)
[2024-07-01] MEDS: Carvedilol 12.5 MG Tablet PO ×2 (09:18→22:18)
[2024-07-01] MEDS: Furosemide 20 MG Tablet PO (09:18)
[2024-07-01] MEDS: Nystatin Powder 15gm Bottle 1 APPLIC TOPICAL ×2 (09:19→22:19)
[2024-07-01] MEDS: Clopidogrel Bisulfate 75 MG Tablet PO (09:19)
[2024-07-01] MEDS: Aspirin E.C. 81 MG Tablet PO (09:22)
[2024-07-01 16:00] VITALS: BP 133/73; PULSE 92; RESP 17; TEMP 36.6; O2SAT 94
[2024-07-01] MEDS: Acetaminophen/Codeine #3 Tablet 1 TABLET PO (22:17)
[2024-07-01] MEDS: Sertraline 100 MG Tablet 150 MG PO (22:17)
[2024-07-01] MEDS: Atorvastatin Calcium 20 MG Tablet PO (22:19)
[2024-07-02] MEDS: Levothyroxine 50 MCG Tablet PO (06:18)
[2024-07-02] MEDS: Ferrous Gluconate 324 MG Tablet PO (08:29)
[2024-07-02] MEDS: Aspirin E.C. 81 MG Tablet PO (08:30)
[2024-07-02] MEDS: Spironolactone 25 MG Tablet PO (08:30)
[2024-07-02] MEDS: levETIRAcetam 500 MG Tablet PO ×2 (08:30→21:49)
[2024-07-02] MEDS: Furosemide 20 MG Tablet PO (08:30)
[2024-07-02] MEDS: Clopidogrel Bisulfate 75 MG Tablet PO (08:30)
[2024-07-02] MEDS: Carvedilol 12.5 MG Tablet PO ×2 (08:30→21:52)
[2024-07-02] MEDS: Multivitamins,Ther W-Minerals Tablet 1 TABLET PO (08:30)
[2024-07-02] MEDS: Nystatin Powder 15gm Bottle 1 APPLIC TOPICAL ×2 (08:31→21:49)
[2024-07-02] MEDS: Juven (unflavored) Packet 1 PACKET PO ×2 (08:31→17:46)
[2024-07-02] MEDS: Menthol/Lanolin/Calamine/Znox 113 GM Tube 1 APPLIC TOPICAL ×2 (08:35→21:49)
[2024-07-02 09:38] VITALS: PULSE 88; RESP 16
[2024-07-02 16:00] VITALS: BP 112/65; PULSE 88; RESP 16; TEMP 36.1; O2SAT 94
[2024-07-02 21:45] VITALS: BP 127/53; PULSE 92
[2024-07-02] MEDS: Atorvastatin Calcium 20 MG Tablet PO (21:49)
[2024-07-02] MEDS: Sertraline 100 MG Tablet 150 MG PO (21:50)
[2024-07-03] MEDS: Levothyroxine 50 MCG Tablet PO (05:55)
[2024-07-03] MEDS: Furosemide 20 MG Tablet PO (08:42)
[2024-07-03] MEDS: Nystatin Powder 15gm Bottle 1 APPLIC TOPICAL (08:42)
[2024-07-03] MEDS: Juven (unflavored) Packet 1 PACKET PO (08:42)
[2024-07-03] MEDS: Clopidogrel Bisulfate 75 MG Tablet PO (08:42)
[2024-07-03] MEDS: Spironolactone 25 MG Tablet PO (08:42)
[2024-07-03] MEDS: levETIRAcetam 500 MG Tablet PO (08:43)
[2024-07-03] MEDS: Multivitamins,Ther W-Minerals Tablet 1 TABLET PO (08:43)
[2024-07-03] MEDS: Aspirin E.C. 81 MG Tablet PO (08:43)
[2024-07-03] MEDS: Carvedilol 12.5 MG Tablet PO (08:43)
[2024-07-03] MEDS: Ferrous Gluconate 324 MG Tablet PO (08:43)
[2024-07-03] MEDS: Menthol/Lanolin/Calamine/Znox 113 GM Tube 1 APPLIC TOPICAL (08:46)
--- NOTE | 2024-07-03 09:40 | MDS.RN ---
Information for the MDS was obtained from review of the clinical record, interview of resident, staff, and direct observation of resident?s care.
[2024-07-03 14:00] VITALS: BP 118/69; PULSE 88; RESP 14; TEMP 36.1; O2SAT 96
== END 2024-07-03 14:00 | disposition home health service (06) | DRG 689 ==
PROVIDERS: Admitting Provider Family Medicine Geriatric Medicine; PCP Internal Medicine; Referring Provider Family Medicine Geriatric Medicine; Visit Provider Family Medicine Geriatric Medicine
DX: N39.0 Urinary tract infection, site not specified (principal); L89.153 Pressure ulcer of sacral region, stage 3; I50.32 Chronic diastolic (congestive) heart failure; I11.0 Hypertensive heart disease with heart failure; G40.909 Epilepsy, unspecified, not intractable, without status epilepticus; E03.9 Hypothyroidism, unspecified; D50.9 Iron deficiency anemia, unspecified; F32.9 Major depressive disorder, single episode, unspecified; I25.10 Atherosclerotic heart disease of native coronary artery without angina pectoris; E78.5 Hyperlipidemia, unspecified; Z86.73 Personal history of transient ischemic attack (TIA), and cerebral infarction without residual deficits; Z79.899 Other long term (current) drug therapy; Z79.02 Long term (current) use of antithrombotics/antiplatelets; Z79.82 Long term (current) use of aspirin; Z87.891 Personal history of nicotine dependence; Z79.890 Hormone replacement therapy
CPT/HCPCS: 36415; 80048; 80061; 85014; 85018; 85025; 92507; 92523; 97110; 97116; 97129; 97162; 97166; 97530; 97535; 97802; A4216

== ENCOUNTER 2024-08-16 14:00 | Outpatient (RCR) | payer MEDICARE, MEDICAID, SELFPAY ==
[2024-08-02 14:44] VITALS: BP 135/62; PULSE 83; RESP 18
--- NOTE | 2024-08-02 17:10 | PCM.WC.HP ---
History of Present Illness Date of Service: 08/02/24 Chief Complaint: Non healing sacral ulcer History of Wound: Patient is a 74 year female who presents to the wound center for evaluation of an a sacral ulcer and a left ischial ulcer. She was recently hospitalized for UTI/and acute kidney disease. She has a history of HTN, hyperlipidemia, seizure disorder, hypothyroidism, debility. Left ischial ulcer from pressure. The sacral ulcer is in the area of previous ulcer that healed last year. She denies fever, chills, nausea and vomiting. She is accompanied today with her son. She has home health. She sleeps on a couch. She states that she is unsure if a bed would fit into her bedroom due to it being so small. Today denies fever, chills, nausea and vomiting. Progress of Wound: Left ischial ulcer is clean, base is pink. Tsering wound is clear. Sacral ulcer is where previous ulcer had been, the opening is small and makes it difficult to see the base, but with the depth it is in the muscle. [facility] Medical History (Reviewed 08/04/24 @ 14:39 by Bia Wade SENIOR SQL SERVER DEVELOPER, SENIOR SQL SERVER DEVELOPER-C) Hypothyroid Depression CAD (coronary artery disease) Hyperlipemia Debility Sacral decubitus ulcer, stage III History of stroke HTN (hypertension) Seizure COVID-19 Iron deficiency anemia Heart failure Vertigo Home Medications ?Medication ?Instructions ?Recorded ?Last Taken ?Type atorvastatin 20 mg tablet 20 mg PO QHS cholesterol 08/17/18 06/16/24 History clopidogrel 75 mg tablet 75 mg PO DAILY anti platelet 08/17/18 06/16/24 History levetiracetam 500 mg tablet 500 mg PO BID seizures 08/17/18 06/16/24 History levothyroxine 50 mcg tablet 50 mcg PO DAILY Thyroid 08/17/18 06/16/24 History sertraline 100 mg tablet 150 mg PO QHS depression 08/17/18 06/16/24 History aspirin 81 mg tablet,delayed 81 mg PO DAILY@0800 heart [facility] 08/28/20 06/16/24 History release carvedilol 12.5 mg tablet 12.5 mg PO BID heart 08/28/20 06/16/24 History multivitamin-iron 9 mg-folic acid 1 tab PO DAILY supplement 08/28/20 06/16/24 History 400 mcg-calcium and minerals tablet furosemide 20 mg tablet 20 mg PO DAILY diuretic 03/25/23 06/16/24 History spironolactone 25 mg tablet 25 mg PO DAILY diuretic 03/25/23 06/16/24 History (Aldactone) acetaminophen 300 mg-codeine 30 mg 1 tab PO QHS PRN pain 06/17/24 06/16/24 History tablet albuterol sulfate 90 mcg/actuation 2 inh inhalation Q4H PRN shortness 06/17/24 06/16/24 History aerosol inhaler (Ventolin HFA) of breath or wheezing ferrous gluconate 324 mg (38 mg 324 mg PO DAILY Supplement #1 TAB 06/21/24 Unknown Rx iron) tablet arginine 7 gram-glutam 7 1 packet PO BIDCM 30 days #60 ea 06/30/24 Unknown Rx gram-CaHMB 1.5 [id number]-min oral pwd pkt (Yariel (with collagen)) furosemide 20 mg tablet 20 mg PO DAILY 30 days #30 tabs 07/03/24 Unknown Rx spironolactone 25 mg tablet 25 mg PO DAILY 30 days #30 tabs 07/03/24 Unknown Rx Allergy/AdvReac Type Severity Reaction Status Date / Time No Known Allergies Allergy Verified 06/17/24 10:24 Family History (Reviewed 08/04/24 @ 14:39 by Bia Wade SENIOR SQL SERVER DEVELOPER, SENIOR SQL SERVER DEVELOPER-C) Other Cancer Kidney disease Surgical History H/O hysterectomy with oophorectomy Social History (Reviewed 08/04/24 @ 14:39 by Bia Wade SENIOR SQL SERVER DEVELOPER, SENIOR SQL SERVER DEVELOPER-C) household members: children housing: house current occupational status: retired Smoking Status: Former smoker alcohol intake: never substance use type: does not use ROS Constitutional Constitutional: Denies chills or fever(s) Eyes Eyes: Reports none ENT HEENT: Reports none Cardiovascular Cardiovascular: Denies chest pain or dyspnea Respiratory/Chest Respiratory/Chest: Denies cough or dyspnea Gastrointestinal Gastrointestinal: Reports none Musculoskeletal Musculoskeletal: Reports muscle weakness Integumentary Integumentary: Reports skin ulcer Neurologic Neurologic: Reports as per HPI Psychiatric Psychiatric: Reports none Endocrine Endocrinology: Reports as per HPI Hematologic/Lymphatic Hematologic/Lymphatic: Reports none Allergic/Immunologic Allergic/Immunologic: Reports none Vital Signs Vital Signs Vital Signs: 12/04/24 14:44 Pulse Rate 83 Respiratory Rate 18 Blood Pressure 135/62 H Blood Pressure Mean 86 Blood Pressure Source Monitor Blood Pressure Position Semi-Fowlers Blood Pressure Location Left Arm Oxygen Delivery Method Room Air Weight Weight: 5 lb 4 oz Body Mass Index (BMI) 0.0 Physical Exam Const alert and no apparent distress General Appearance: cooperative HEENT normocephalic Head and Scalp: atraumatic Eyes General Eye: normal appearance of both eyes Resp normal respiratory effort, normal air movement and clear to auscultation bilaterally Effort and Inspection: able to speak in complete sentences Cardio regular rate and regular rhythm GI soft to palpation and non-tender Back/Spine normal ROM Extremity normal capillary refill Skin Wound Narrative: Left ischial ulcer is clean, base is pink. Tsering wound is clear. Sacral ulcer is where previous ulcer had been, the opening is small and makes it difficult to see the base, but with the depth it is in the muscle. Debridement Note Debridement Note Wound debrided: #1 Sacral ulcer Laterality: Not Applicable Type of Debridement: Excisional debridement Anesthesia Used: 5% Lidocaine Gel Percentage of wound debrided: 100 Instrument Used: 3mm curette Tissue Removed: Non viable tissue and slough into the muscle Severity: Fat Layer Exposed Amount of bleeding with debridement: Mild Bleeding Controlled with: Pressure and Compression and gauze Patient tolerated procedure: Patient tolerated procedure well Post-Debridement Measurements and Additional Note: Post-Debridement Measurements/Treatment - Nurse 1 - General Ulcer Assessment Start: 08/02/24 14:44 Freq: Status: Active Protocol: LAURIE Activity Type Activity Date Activity User E-sign Co-sign Detail Recorded Client Recorded Date Recorded By Document 08/02/24 14:44 [id number] 08/02/24 15:03 KW 08/02/24 14:44 - Today's Visit Information Type of service Initial Visit Arrival Mode Ambulatory, Walker Accompanied by son Patient Identification Verified (Name & Yes ) Height and Weight Height 140 ft Weight 5 lb 4 oz Weight in Pounds 5.3 lbs Body Mass Index (BMI) 0.0 BMI Classification Underweight BSA - Tr 4.45 Vital Signs Pulse Rate (60-100) 83 Pulse Location Monitor Respiratory Rate (12-18) 18 Respiratory rate source Observation Oxygen Delivery Method Room Air Blood Pressure (90/60-120/80) 135/62 H Blood Pressure Mean 86 Source Monitor Position Semi-Fowlers Blood Pressure Location Left Arm History Since Last Visit- (Skip if this is Patient's initial visit) Left Footwear Regular Shoe Right Footwear Regular Shoe Pain Scale: 0-10 Numeric Is Patient Pain Free? No bottom -Description Sharp,Burning -Intensity 5 -Alleviating Factors/Interventions Inactivity/ Resting,Turning /Repositioning Communication Assessment Preferred language Slovak Marketing Operations Specialist Required No Able to Read Yes Able to Write Yes Right Hearing Abillity Normal Left Hearing Abillity Normal Visual Assistive Devices Glasses Teaching Assessment Preferences Verbal,Written, Demonstration Barriers to Learning None Readiness To Learn Excellent Willingness to Engage in Self Management High Activies Readiness to Engage in Self Management High Activities Anxiety Level Calm Cooperation Cooperative Perception Coherent Interest in Health Problem Asks Questions Education Importance Acknowledges Need Does Patient Smoke tobacco or other Yes substances Is Patient Diabetic No Functional Assessment Recent Decline in Ability to Perform Ambulation, Bathing,Lower Body Dressing, Toileting, Transferring, Upper Body Dressing WC - Nurse 1 - General Ulcer Measurement Start: 08/02/24 14:44 Freq: Status: Active Protocol: Activity Type Activity Date Activity User E-sign Co-sign Detail Recorded Client Recorded Date Recorded By Document 08/02/24 14:44 KW [id number] 08/02/24 15:03 KW 08/02/24 14:44 Wound Center Nurse 1 #2 LT ISCHIUM -Current Size (cm) - Length 0.5 -Current Size (cm) - Width 1 -Current Size (cm) - Depth 0.1 -Total Square Cm 0.5 -Date of Last Picture (Recall this 08/02/24 field) -Exudate Amt Small -Exudate Type Serosanguineous -Wound Margin Distinct, Outline Attached -Granulation Amt Large (67-100%) -Granulation Quality [place],Red -Texture (Tsering-wound Skin Appearance) Assessed -Moisture (Tsering-wound Skin Appearance) Assessed -Color (Tsering-wound Skin Appearance) Assessed -Temperature (Tsering-wound Skin No Abnormality Appearance) (Pt Warm) -Tenderness on Palpation (Tsering-wound No Skin Appearance) -Ulcer Cleansing Rinsed/ Irrigated with Saline -Foul Odor after Cleansing No -Anesthetic Used 5% Lidocaine Gel #1- SACRAL -Current Size (cm) - Length 0.6 -Current Size (cm) - Width 0.5 -Current Size (cm) - Depth 1 -Total Square Cm 0.30 -Date of Last Picture (Recall this 08/02/24 field) -Undermining/Tunneling Yes -Undermining/Tunneling Starts (O'clock 12 ) -Undermining/Tunneling Ends (O'clock) 3 -Maximum Distance (cm) 1 -Exudate Amt Small -Exudate Type Serosanguineous -Wound Margin Distinct, Outline Attached -Granulation Amt Large (67-100%) -Granulation Quality Red -Texture (Tsering-wound Skin Appearance) Assessed -Moisture (Tsering-wound Skin Appearance) Assessed -Color (Tsering-wound Skin Appearance) Assessed -Temperature (Tsering-wound Skin No Abnormality Appearance) (Pt Warm) -Tenderness on Palpation (Tsering-wound No Skin Appearance) -Ulcer Cleansing Rinsed/ Irrigated with Saline -Foul Odor after Cleansing No -Anesthetic Used 5% Lidocaine Gel WC - Nurse 2 - General Ulcer CM Notes Start: 08/02/24 14:44 Freq: Status: Active Protocol: Activity Type Activity Date Activity User E-sign Co-sign Detail Recorded Client Recorded Date Recorded By Document 08/02/24 15:17 [id number] 08/02/24 15:27 08/02/24 15:17 Wound Center Nurse 2 #2 LT ISCHIUM -Time 15:17 -Correct Patient Yes -Correct Side, Site, Position Yes -Correct Procedure Yes -Procedure Performed Yes -Type of Procedure Debridement -Clinical Debridement Subcutaneous -Tissue Removed Subcutaneous -Post Debridement (cm) - Length 1.0 -Post Debridement (cm) - Width 1.0 -Post Debridement (cm) - Depth 0.1 -Total Square (Post) (cm) 1.00 -Area of Debridement (cm) - Length 1.0 -Area of Debridement (cm) - Width 1.0 -Total Square (Area) (cm) 1.00 -Tunneling No -Undermining/Tunneling Yes -Undermining/Tunneling Starts (O'clock 3 ) -Maximum Distance (cm) 0.8 -Circular Undermining No -Wound/Ulcer Outcome Not Healed -Ulcer Cleansing Rinsed/ Irrigated with Saline -Foul Odor after Cleansing No -Bioengineered Tissue No -Bleeding Controlled with Pressure -Treatment Response Procedure Tolerated Well -Debridement - Subq, 1st 20sq cm Yes #1- SACRAL -Time 15:17 -Correct Patient Yes -Correct Side, Site, Position Yes -Correct Procedure Yes -Procedure Performed Yes -Type of Procedure Debridement -Clinical Debridement Muscle / Fascia -Tissue Removed Muscle -Post Debridement (cm) - Length 1.0 -Post Debridement (cm) - Width 0.8 -Post Debridement (cm) - Depth 0.8 -Total Square (Post) (cm) 0.80 -Area of Debridement (cm) - Length 1.0 -Area of Debridement (cm) - Width 0.8 -Total Square (Area) (cm) 0.80 -Tunneling No -Undermining/Tunneling No -Circular Undermining No -Wound/Ulcer Outcome Not Healed -Ulcer Cleansing Rinsed/ Irrigated with Saline -Foul Odor after Cleansing No -Bioengineered Tissue No -Bleeding Controlled with Pressure -Treatment Response Procedure Tolerated Well -Debridement - Muscle / Fascia, 1st Yes 20sq cm Pain Scale: 0-10 Numeric Is Patient Pain Free? Yes Additional Wound Wound debrided: #2 left ischial ulcer Laterality: Left Wound Grade/Stage: Stage 3 Type of Debridement: Excisional debridement Anesthesia Used: 5% Lidocaine Gel Depth: Down to and including healthy tissue and in the subcutaneous layer Percentage of wound debrided: 100 Instrument Used: 5mm curette Tissue Removed: Non viable tissue and slough Severity: Fat Layer Exposed Amount of bleeding with debridement: Mild Bleeding Controlled with: Pressure and Compression and gauze Patient tolerated procedure: Patient tolerated procedure well Charges/Coding Visit Charges Office Visits / Consults: 70684 OV L3 Est 20min (25 modifier) Procedures Integumentary [id number]: [id number] Maria M musc/fascia 20 sq cm/< (sacrum) Multi Select Codes Integumentary Integumentary CPT Codes: 44366 Maria M subq tissue 20 sq cm/< (left ischium) Assessment/Plan Assessment/Plan (1) Decubitus ulcer of sacral area: CODE(S): L89.159 - Pressure ulcer of sacral region, unspecified stage (2) Decubitus ulcer of left ischium, stage 3: CODE(S): L89.323 - Pressure ulcer of left buttock, stage 3 (3) Debility: CODE(S): R53.81 - Other malaise PLAN: Plan Patient evaluated at the wound healing center. Wound care - Left ischial ulcer Susy covered with gauze daily. Sacral ulcer pack Aquacel-Ag into the base of the ulcer, cover with gauze daily. Wash areas with soap and water at the time of the dressing changes. She has home health and her son to help her with her dressing changes. Encouraged patient to off load off of both of these areas as much as possible. Would like to get her a low air loss mattress bed. She states that she does not have enough room for one. Discussed why it is important for her to be off loading on a specialty mattress. Will have her and her son think about this and will revisit the discussion next week. Follow up one week.
--- NOTE | 2024-08-04 11:59 | WC ---
PHOTO 08/02/24 SACRAL
--- NOTE | 2024-08-04 12:01 | WC ---
PHOTO 08/02/24 LEFT ISCHIAL
[2024-08-16 14:07] VITALS: BP 135/55; PULSE 88; RESP 18
--- NOTE | 2024-08-16 15:53 | PCM.WC.PN ---
History of Present Illness Date of Service: 08/16/24 Chief Complaint: Non healing sacral ulcer History of Wound: Patient is a 74 year female who presents to the wound center for evaluation of an a sacral ulcer and a left ischial ulcer. She was recently hospitalized for UTI/and acute kidney disease. She has a history of HTN, hyperlipidemia, seizure disorder, hypothyroidism, debility. Left ischial ulcer from pressure. The sacral ulcer is in the area of previous ulcer that healed last year. She denies fever, chills, nausea and vomiting. She is accompanied today with her son. She has home health. She sleeps on a couch. She states that she is unsure if a bed would fit into her bedroom due to it being so small. Today denies fever, chills, nausea and vomiting. Progress of Wound: Left ischial ulcer is clean, base is pink, it is smaller in size. Tsering wound is clear. Sacral ulcer is where previous ulcer had been, the opening is small and makes it difficult to see the base, but with the depth it is in the muscle, no undermining present today, suspect this ulcer is positional with how she is positioned when it is measured. Objective Data Objective Data Vital Signs: Vital Signs Pulse Resp BP O2 Del Method 88 18 135/55 H Room Air 08/16/24 14:07 08/16/24 14:07 08/16/24 14:07 08/16/24 14:07 Oxygen Delivery Method Room Air Weight: 5 lb 4 oz Body Mass Index (BMI) 0.0 Charges/Coding Procedures Integumentary 111xxx-113xx: 63074 Maria M musc/fascia 20 sq cm/< (sacrum) Multi Select Codes Integumentary Integumentary CPT Codes: 01965 Maria M subq tissue 20 sq cm/< (left ischium) Debridement Note Debridement Note Wound debrided: #1 Sacral ulcer Laterality: Not Applicable Type of Debridement: Excisional debridement Anesthesia Used: 5% Lidocaine Gel Percentage of wound debrided: 100 Instrument Used: 3mm curette Tissue Removed: Non viable tissue and slough into the muscle Severity: Fat Layer Exposed Amount of bleeding with debridement: Mild Bleeding Controlled with: Pressure and Compression and gauze Patient tolerated procedure: Patient tolerated procedure well Post-Debridement Measurements and Additional Note: Post-Debridement Measurements/Treatment WC - Nurse 1 - General Ulcer Assessment Start: 08/02/24 14:44 Freq: Status: Active Protocol: WC.LOWEXT Activity Type Activity Date Activity User E-sign Co-sign Detail Recorded Client Recorded Date Recorded By Document 08/02/24 14:44 KW [id number] 08/02/24 15:03 KW Document 08/16/24 14:07 KW [id number] 08/16/24 14:12 KW 08/02/24 08/16/24 14:44 14:07 WC - Today's Visit Information Type of service Initial Visit Follow-up Visit (Physician/STRUCTURAL ANALYSIS ENGINEER ) Arrival Mode Ambulatory, Ambulatory, Walker Walker Accompanied by son Patient Identification Verified (Name & Yes Yes ) Height and Weight Height 140 ft Weight 5 lb 4 oz Weight in Pounds 5.3 lbs Body Mass Index (BMI) 0.0 0.0 BMI Classification Underweight Underweight BSA - Tr 4.45 Vital Signs Pulse Rate (60-100) 83 88 Pulse Location Monitor Monitor Respiratory Rate (12-18) 18 18 Respiratory rate source Observation Observation Oxygen Delivery Method Room Air Room Air Blood Pressure (90/60-120/80) 135/62 H 135/55 H Blood Pressure Mean (mm Hg) 86 81 Source Monitor Monitor Position Semi-Fowlers Sitting Blood Pressure Location Left Arm Left Arm History Since Last Visit- (Skip if this is Patient's initial visit) Have you changed medications since your No last visit? Any new allergies or adverse reactions No Had a fall/change in ADL's that may No increase risk of falls Signs or symptoms of abuse and/or No neglect since last visit Have you been in the hospital since your No last visit? Has dressing in place as prescribed Yes Has compression in place as prescribed N/A Has offloadiing in place as prescribed N/A Experienced any changes in pain level or No management Left Footwear Regular Shoe Regular Shoe Right Footwear Regular Shoe Regular Shoe Pain Scale: 0-10 Numeric Is Patient Pain Free? 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 No Able to Read Yes Able to Write Yes Right Hearing Abillity Normal Left Hearing Abillity Normal Visual Assistive Devices Glasses Teaching Assessment Preferences Verbal,Written, Demonstration Barriers to Learning None Readiness To Learn Excellent Willingness to Engage in Self Management High Activies Readiness to Engage in Self Management High Activities Anxiety Level Calm Cooperation Cooperative Perception Coherent Interest in Health Problem Asks Questions Education Importance Acknowledges Need Does Patient Smoke tobacco or other Yes substances Is Patient Diabetic No Functional Assessment Recent Decline in Ability to Perform Ambulation, Bathing,Lower Body Dressing, Toileting, Transferring, Upper Body Dressing WC - Nurse 1 - General Ulcer Measurement Start: 08/02/24 14:44 Freq: Status: Active Protocol: Activity Type Activity Date Activity User E-sign Co-sign Detail Recorded Client Recorded Date Recorded By Document 08/02/24 14:44 [id number] 08/02/24 15:03 KW Document 08/16/24 14:07 KW [id number] 08/16/24 14:12 KW 08/02/24 08/16/24 14:44 14:07 Wound Center Nurse 1 #2 LT ISCHIUM -Current Size (cm) - Length 0.5 0.5 -Current Size (cm) - Width 1 0.2 -Current Size (cm) - Depth 0.1 0.1 -Total Square Cm 0.5 0.10 -Date of Last Picture (Recall this 08/02/24 field) -Exudate Amt Small Large -Exudate Type Serosanguineous Yellow/Green -Wound Margin Distinct, Distinct, Outline Outline Attached Attached -Granulation Amt Large (67-100%) Large (67-100%) -Granulation Quality White Center,Red White [place] -Texture (Tsering-wound Skin Appearance) Assessed Assessed -Moisture (Tsering-wound Skin Appearance) Assessed Assessed -Color (Tsering-wound Skin Appearance) Assessed Assessed -Temperature (Tsering-wound Skin No Abnormality Appearance) (Pt Warm) -Tenderness on Palpation (Tsering-wound No No Skin Appearance) -Ulcer Cleansing Rinsed/ Soap and Water Irrigated with Saline -Foul Odor after Cleansing No No -Anesthetic Used 5% Lidocaine 5% Lidocaine Gel Gel #1- SACRAL -Current Size (cm) - Length 0.6 0.7 -Current Size (cm) - Width 0.5 0.2 -Current Size (cm) - Depth 1 1.8 -Total Square Cm 0.30 0.14 -Date of Last Picture (Recall this 08/02/24 field) -Undermining/Tunneling Yes Yes -Undermining/Tunneling Starts (O'clock 12 9 ) -Undermining/Tunneling Ends (O'clock) 3 12 -Maximum Distance (cm) 1 1.5 -Exudate Amt Small Large -Exudate Type Serosanguineous Serosanguineous -Wound Margin Distinct, Distinct, Outline Outline Attached Attached -Granulation Amt Large (67-100%) Large (67-100%) -Granulation Quality Red Pale,White Center -Texture (Tsering-wound Skin Appearance) Assessed Assessed -Moisture (Tsering-wound Skin Appearance) Assessed Assessed, Maceration -Color (Tsering-wound Skin Appearance) Assessed Assessed -Temperature (Tsering-wound Skin No Abnormality No Abnormality Appearance) (Pt Warm) (Pt Warm) -Tenderness on Palpation (Tsering-wound No No Skin Appearance) -Ulcer Cleansing Rinsed/ Soap and Water Irrigated with Saline -Foul Odor after Cleansing No No -Anesthetic Used 5% Lidocaine 5% Lidocaine Gel Gel WC - Nurse 2 - General Ulcer CM Notes Start: 08/02/24 14:44 Freq: Status: Active Protocol: Activity Type Activity Date Activity User E-sign Co-sign Detail Recorded Client Recorded Date Recorded By Document 08/02/24 15:17 [id number] 08/02/24 15:27 Document 08/16/24 14:38 [id number] 08/16/24 14:43 08/02/24 08/16/24 15:17 14:38 Wound Center Nurse 2 #2 LT ISCHIUM -Time 15:17 14:38 -Correct Patient Yes Yes -Correct Side, Site, Position Yes Yes -Correct Procedure Yes Yes -Procedure Performed Yes Yes -Type of Procedure Debridement Debridement -Clinical Debridement Subcutaneous Subcutaneous -Tissue Removed Subcutaneous Subcutaneous -Post Debridement (cm) - Length 1.0 0.5 -Post Debridement (cm) - Width 1.0 0.4 -Post Debridement (cm) - Depth 0.1 0.1 -Total Square (Post) (cm) 1.00 0.20 -Area of Debridement (cm) - Length 1.0 0.5 -Area of Debridement (cm) - Width 1.0 0.4 -Total Square (Area) (cm) 1.00 0.20 -Tunneling No No -Undermining/Tunneling Yes No -Undermining/Tunneling Starts (O'clock 3 ) -Maximum Distance (cm) 0.8 -Circular Undermining No No -Wound/Ulcer Outcome Not Healed Not Healed -Ulcer Cleansing Rinsed/ Rinsed/ Irrigated with Irrigated with Saline Saline -Foul Odor after Cleansing No No -Bioengineered Tissue No No -Bleeding Controlled with Pressure Pressure -Treatment Response Procedure Procedure Tolerated Well Tolerated Well -Debridement - Subq, 1st 20sq cm Yes Yes #1- SACRAL -Time 15:17 14:40 -Correct Patient Yes Yes -Correct Side, Site, Position Yes Yes -Correct Procedure Yes Yes -Procedure Performed Yes Yes -Type of Procedure Debridement Debridement -Clinical Debridement Muscle / Fascia Muscle / Fascia -Tissue Removed Muscle Muscle -Post Debridement (cm) - Length 1.0 0.6 -Post Debridement (cm) - Width 0.8 0.5 -Post Debridement (cm) - Depth 0.8 0.6 -Total Square (Post) (cm) 0.80 0.30 -Area of Debridement (cm) - Length 1.0 0.6 -Area of Debridement (cm) - Width 0.8 0.5 -Total Square (Area) (cm) 0.80 0.30 -Tunneling No No -Undermining/Tunneling No No -Circular Undermining No No -Wound/Ulcer Outcome Not Healed Not Healed -Ulcer Cleansing Rinsed/ Rinsed/ Irrigated with Irrigated with Saline Saline -Foul Odor after Cleansing No No -Bioengineered Tissue No No -Bleeding Controlled with Pressure Pressure -Treatment Response Procedure Procedure Tolerated Well Tolerated Well -Debridement - Muscle / Fascia, 1st Yes Yes 20sq cm Pain Scale: 0-10 Numeric Is Patient Pain Free? Yes Yes - Nurse 3 - General Ulcer D/C NN Start: 08/02/24 14:44 Freq: Status: Active Protocol: Activity Type Activity Date Activity User E-sign Co-sign Detail Recorded Client Recorded Date Recorded By Document 08/16/24 14:48 KW [id number] 08/16/24 14:49 KW Edit Result 08/16/24 14:48 KW (1) [id number] 08/16/24 14:50 KW (1) #2 LT ISCHIUM - Primary Dressing Applied Aquacel AG 4x4 => Promogran - Aquacel AG 4x4 1 => - Promogran => 1 #1- SACRAL - Primary Dressing Applied => Aquacel AG 4x4 - Aquacel AG 4x4 => 1 08/16/24 14:48 Wound Care Center Nurse 3 #2 LT ISCHIUM -Primary Dressing Applied Promogran -Primary Dressing Covered/Secured with Dry Gauze, Secured with Tape -Promogran 1 #1- SACRAL -Primary Dressing Applied Aquacel AG 4x4 -Other Dressing AQUACEL -Primary Dressing Covered/Secured with Dry Gauze, Secured with Tape -Aquacel AG 4x4 1 Pain Scale: 0-10 Numeric Is Patient Pain Free? Yes WC - Visit Discharge Discharge Condition Stable Ambulatory Status Wheelchair Transportation Private Auto Medication Reconcilliation completed & No provided to patient/care provider Clinical Summary of Care Provided Yes Additional Wound Wound debrided: #2 left ischial ulcer Laterality: Left Wound Grade/Stage: Stage 3 Type of Debridement: Excisional debridement Anesthesia Used: 5% Lidocaine Gel Depth: Down to and including healthy tissue and in the subcutaneous layer Percentage of wound debrided: 100 Instrument Used: 5mm curette Tissue Removed: Non viable tissue and slough Severity: Fat Layer Exposed Amount of bleeding with debridement: Mild Bleeding Controlled with: Pressure and Compression and gauze Patient tolerated procedure: Patient tolerated procedure well Assessment/Plan Assessment/Plan (1) Decubitus ulcer of sacral area: CODE(S): L89.159 - Pressure ulcer of sacral region, unspecified stage (2) Decubitus ulcer of left ischium, stage 3: CODE(S): L89.323 - Pressure ulcer of left buttock, stage 3 (3) Debility: CODE(S): R53.81 - Other malaise PLAN: Plan Patient evaluated at the wound healing center. Wound care - Left ischial ulcer Promogran covered with gauze daily. Sacral ulcer pack Aquacel-Ag into the base of the ulcer, cover with gauze daily. Wash areas with soap and water at the time of the dressing changes. She has home health and her son to help her with her dressing changes. Will request home health goes out twice a week to assist with dressing changes. Encouraged patient to off load off of both of these areas as much as possible. Would like to get her a low air loss mattress bed. She states that she does not have enough room for one. Discussed why it is important for her to be off loading on a specialty mattress. Will have her and her son think about this and will revisit the discussion next week. Follow up Wednesday08/28/24.
== END 2024-08-29 23:59 | disposition home or self-care (01) ==
LOC: WC 14:00
PROVIDERS: PCP Internal Medicine; Referring Provider Internal Medicine; Visit Provider Nurse Practitioner Family
DX: L89.154 Pressure ulcer of sacral region, stage 4 (principal); L89.323 Pressure ulcer of left buttock, stage 3; I11.0 Hypertensive heart disease with heart failure; I50.9 Heart failure, unspecified; G40.909 Epilepsy, unspecified, not intractable, without status epilepticus; R53.81 Other malaise; I25.10 Atherosclerotic heart disease of native coronary artery without angina pectoris; E78.5 Hyperlipidemia, unspecified; E03.9 Hypothyroidism, unspecified; Z79.82 Long term (current) use of aspirin; Z79.02 Long term (current) use of antithrombotics/antiplatelets; Z79.890 Hormone replacement therapy; Z79.899 Other long term (current) drug therapy; Z87.891 Personal history of nicotine dependence; Z86.73 Personal history of transient ischemic attack (TIA), and cerebral infarction without residual deficits
CPT/HCPCS: 11042; 11043; 99213; G0463

== ENCOUNTER 2024-09-27 14:00 | Outpatient (RCR) | payer MEDICARE, MEDICAID, SELFPAY ==
[2024-08-30 00:08] VITALS: BP 135/55; PULSE 88; RESP 18
[2024-09-06 13:49] VITALS: BP 132/97; PULSE 96; RESP 16; TEMP 36.6
--- NOTE | 2024-09-06 14:28 | PN.PCM_ITS ---
History of Present Illness Date of Service: 09/06/24 Chief Complaint: Non healing sacral ulcer History of Wound: Patient is a 74 year female who presents to the wound center for evaluation of an a sacral ulcer and a left ischial ulcer. She was recently hospitalized for UTI/and acute kidney disease. She has a history of HTN, hyperlipidemia, seizure disorder, hypothyroidism, debility. Left ischial ulcer from pressure. The sacral ulcer is in the area of previous ulcer that healed last year. She denies fever, chills, nausea and vomiting. She is accompanied today with her son. She has home health. She sleeps on a couch. She states that she is unsure if a bed would fit into her bedroom due to it being so small. Today denies fever, chills, nausea and vomiting. Progress of Wound: Left ischial ulcer is covered with fragile epithelialization. Tsering wound is clear. Sacral ulcer opening is small and makes it difficult to see the base, but with the depth able to tap bone, which is covered. She denies issues with wound care. Objective Data Objective Data Vital Signs: Vital Signs Temp Pulse Resp BP O2 Del Method 97.8 F 96 16 132/97 H Room Air 09/06/24 13:49 09/06/24 13:49 09/06/24 13:49 09/06/24 13:49 09/06/24 13:49 Oxygen Delivery Method Room Air Weight: 5 lb 4 oz Body Mass Index (BMI) 0.0 Charges/Coding Procedures Integumentary 111xxx-113xx: 65309 Maria M musc/fascia 20 sq cm/< Debridement Note Debridement Note Wound debrided: #1 Sacral ulcer Laterality: Not Applicable Wound Grade/Stage: Stage IV Type of Debridement: Excisional debridement Anesthesia Used: 5% Lidocaine Gel Depth: Down to and including healthy tissue, in the subcutaneous layer and to muscle Percentage of wound debrided: 100 Instrument Used: 3mm curette Tissue Removed: Non viable tissue and slough into the muscle Severity: Fat Layer Exposed Amount of bleeding with debridement: Mild Bleeding Controlled with: Pressure and Compression and gauze Patient tolerated procedure: Patient tolerated procedure well Post-Debridement Measurements and Additional Note: Post-Debridement Measurements/Treatment [place] - Nurse 1 - General Ulcer Assessment Start: 09/06/24 13:49 Freq: Status: Active Protocol: LAURIE Activity Type Activity Date Activity User E-sign Co-sign Detail Recorded Client Recorded Date Recorded By Document 09/06/24 13:49 KW [id number] 09/06/24 13:52 KW 09/06/24 13:49 WC - Today's Visit Information Type of service 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-up Visit (Physician/INTERNATIONAL TRADE ANALYST ) Arrival Mode Ambulatory, Walker Patient Identification Verified (Name & Yes ) Height and Weight Body Mass Index (BMI) 0.0 BMI Classification Underweight Vital Signs Temperature (97.8 F-99.1 F) 97.8 F Temperature Source Temporal Pulse Rate (60-100) 96 Pulse Location Monitor Respiratory Rate (12-18) 16 Respiratory rate source Observation Oxygen Delivery Method Room Air Blood Pressure (90/60-120/80) 132/97 H Blood Pressure Mean (mm Hg) 108 Source Monitor Position Sitting Blood Pressure Location Left Arm History Since Last Visit- (Skip if this is Patient's initial visit) Have you changed medications since your No last visit? Any new allergies or adverse reactions No Had a fall/change in ADL's that may No increase risk of falls Signs or symptoms of abuse and/or No neglect since last visit Have you been in the hospital since your No last visit? Has dressing in place as prescribed Yes Has compression in place as prescribed N/A Has offloadiing in place as prescribed N/A Experienced any changes in pain level or No management Left Footwear Regular Shoe Right Footwear Regular Shoe Pain Scale: 0-10 Numeric Is Patient Pain Free? Yes - Nurse 1 - General Ulcer Measurement Start: 09/06/24 13:49 Freq: Status: Active Protocol: Activity Type Activity Date Activity User E-sign Co-sign Detail Recorded Client Recorded Date Recorded By Document 09/06/24 13:49 KW [id number] 09/06/24 13:52 KW 09/06/24 13:49 Wound Center Nurse 1 #2 LT ISCHIUM -Current Size (cm) - Length 0.1 -Current Size (cm) - Width 0.1 -Current Size (cm) - Depth 0 -Total Square Cm 0.01 -Date of Last Picture (Recall this 09/06/24 field) -Exudate Amt None Present -Texture (Tsering-wound Skin Appearance) Assessed -Moisture (Tsering-wound Skin Appearance) Assessed -Color (Tsering-wound Skin Appearance) Assessed -Tenderness on Palpation (Tsering-wound No Skin Appearance) -Ulcer Cleansing Soap and Water -Anesthetic Used 5% Lidocaine Gel #1- SACRAL -Current Size (cm) - Length 0.8 -Current Size (cm) - Width 0.2 -Current Size (cm) - Depth 0.9 -Total Square Cm 0.16 -Date of Last Picture (Recall this 09/06/24 field) -Exudate Amt Small -Exudate Type Serosanguineous -Wound Margin Distinct, Outline Attached -Granulation Amt Large (67-100%) -Granulation Quality Red -Texture (Tsering-wound Skin Appearance) Assessed -Moisture (Tsering-wound Skin Appearance) Assessed -Color (Tsering-wound Skin Appearance) Assessed -Temperature (Tsering-wound Skin No Abnormality Appearance) (Pt Warm) -Tenderness on Palpation (Tsering-wound No Skin Appearance) -Ulcer Cleansing Soap and Water -Foul Odor after Cleansing No -Anesthetic Used 5% Lidocaine Gel WC - Nurse 2 - General Ulcer CM Notes Start: 09/06/24 13:49 Freq: Status: Active Protocol: Activity Type Activity Date Activity User E-sign Co-sign Detail Recorded Client Recorded Date Recorded By Document 09/06/24 14:07 [id number] 09/06/24 14:14 09/06/24 14:07 Wound Center Nurse 2 #2 LT ISCHIUM -Time 14:07 -Correct Patient Yes -Correct Side, Site, Position Yes -Correct Procedure No -Procedure Performed No -Tunneling No -Undermining/Tunneling No -Circular Undermining No -Wound/Ulcer Outcome Healed- Epithelialized -Foul Odor after Cleansing No -Bioengineered Tissue No -Bleeding Controlled with NA #1- SACRAL -Time 14:08 -Correct Patient Yes -Correct Side, Site, Position Yes -Correct Procedure Yes -Procedure Performed Yes -Type of Procedure Debridement -Clinical Debridement Muscle / Fascia -Tissue Removed Muscle -Post Debridement (cm) - Length 0.8 -Post Debridement (cm) - Width 0.4 -Post Debridement (cm) - Depth 0.4 -Total Square (Post) (cm) 0.32 -Area of Debridement (cm) - Length 0.8 -Area of Debridement (cm) - Width 0.7 -Total Square (Area) (cm) 0.56 -Tunneling No -Undermining/Tunneling No -Circular Undermining No -Wound/Ulcer Outcome Not Healed -Ulcer Cleansing Rinsed/ Irrigated with Saline -Foul Odor after Cleansing No -Bioengineered Tissue No -Bleeding Controlled with Pressure -Treatment Response Procedure Tolerated Well -Debridement - Muscle / Fascia, 1st Yes 20sq cm Pain Scale: 0-10 Numeric Is Patient Pain Free? Yes Assessment/Plan Assessment/Plan (1) Decubitus ulcer of sacral area: CODE(S): L89.159 - Pressure ulcer of sacral region, unspecified stage (2) Decubitus ulcer of left ischium, stage 3: CODE(S): L89.323 - Pressure ulcer of left buttock, stage 3 (3) Debility: CODE(S): R53.81 - Other malaise PLAN: Plan Patient evaluated at the wound healing center. Wound care - Left ischial ulcer place barrier cream (Calmoseptine, A&D ointment, etc) daily and as needed. Sacral ulcer pack Aquacel-Ag into the base of the ulcer, cover with gauze daily. Wash areas with soap and water at the time of the dressing changes. She has home health and her son to help her with her dressing changes. Will request home health goes out twice a week to assist with dressing changes. Encouraged patient to continue to off load off of both of these areas as much as possible. Would like to get her a low air loss mattress bed. She states that she does not have enough room for one. Discussed why it is important for her to be off loading on a specialty mattress. Will have her and her son think about this and will revisit the discussion next week. Follow up 2 weeks.
[2024-09-27 14:02] VITALS: BP 119/48; PULSE 88; RESP 16; TEMP 36.6
--- NOTE | 2024-09-27 17:03 | PCM.WC.PN ---
History of Present Illness Date of Service: 09/27/24 Chief Complaint: Non healing sacral ulcer History of Wound: Patient is a 74 year female who presents to the wound center for evaluation of an a sacral ulcer and a left ischial ulcer. She was recently hospitalized for UTI/and acute kidney disease. She has a history of HTN, hyperlipidemia, seizure disorder, hypothyroidism, debility. Left ischial ulcer from pressure. The sacral ulcer is in the area of previous ulcer that healed last year. She denies fever, chills, nausea and vomiting. She is accompanied today with her son. She has home health. She sleeps on a couch. She states that she is unsure if a bed would fit into her bedroom due to it being so small. Today denies fever, chills, nausea and vomiting. Progress of Wound: Left ischial ulcer is healed. Tsering wound is clear. Sacral ulcer opening is small and makes it difficult to see the base, but with the depth has decreased. Her son states that it is difficult to pack with the aquacel Objective Data Objective Data Vital Signs: Vital Signs Temp Pulse Resp BP O2 Del Method 97.9 F 88 16 119/48 L Room Air 09/27/24 14:02 09/27/24 14:02 09/27/24 14:02 09/27/24 14:02 09/27/24 14:02 Oxygen Delivery Method Room Air Weight: 5 lb 4 oz Body Mass Index (BMI) 0.0 Charges/Coding Procedures Integumentary 111xxx-113xx: [id number] Maria M musc/fascia 20 sq cm/< Debridement Note Debridement Note Wound debrided: #1 Sacral ulcer Laterality: Not Applicable Wound Grade/Stage: Stage IV Type of Debridement: Excisional debridement Anesthesia Used: 5% Lidocaine Gel Depth: Down to and including healthy tissue, in the subcutaneous layer and to muscle Percentage of wound debrided: 100 Instrument Used: 3mm curette Tissue Removed: Non viable tissue and slough into the muscle Severity: Fat Layer Exposed Amount of bleeding with debridement: Mild Bleeding Controlled with: Pressure and Compression and gauze Patient tolerated procedure: Patient tolerated procedure well Post-Debridement Measurements and Additional Note: Post-Debridement Measurements/Treatment [place] - Nurse 1 - General Ulcer Assessment Start: 09/06/24 13:49 Freq: Status: Active Protocol: LAURIE Activity Type Activity Date Activity User E-sign Co-sign Detail Recorded Client Recorded Date Recorded By Document 09/06/24 13:49 [id number] 09/06/24 13:52 Document 09/27/24 14:02 [facility] [id number] 09/27/24 14:08 [facility] 09/06/24 09/27/24 13:49 14:02 - Today's Visit Information Type of service Follow-up Visit Follow-up Visit (Physician/RN PRODUCTION (Physician/RN PRODUCTION ) ) Arrival Mode Ambulatory, Ambulatory, Walker Walker Transfer Assistance None Accompanied by son Patient Identification Verified (Name & Yes Yes ) Patient Requires Transmission-Based No Precautions Height and Weight Body Mass Index (BMI) 0.0 0.0 BMI Classification Underweight Underweight Vital Signs Temperature (97.8 F-99.1 F) 97.8 F 97.9 F Temperature Source Temporal Temporal Pulse Rate (60-100) 96 88 Pulse Location Monitor Monitor Respiratory Rate (12-18) 16 16 Respiratory rate source Observation Observation Oxygen Delivery Method Room Air Room Air Blood Pressure (90/60-120/80) 132/97 H 119/48 L Blood Pressure Mean (mm Hg) 108 71 Source Monitor Monitor Position Sitting Sitting Blood Pressure Location Left Arm Left Arm History Since Last Visit- (Skip if this is Patient's initial visit) Have you changed medications since your No No last visit? Any new allergies or adverse reactions No No Had a fall/change in ADL's that may No No increase risk of falls Signs or symptoms of abuse and/or No No neglect since last visit Have you been in the hospital since your No No last visit? Has dressing in place as prescribed Yes Yes Has compression in place as prescribed N/A N/A Has offloadiing in place as prescribed N/A N/A Experienced any changes in pain level or No No management Left Footwear Regular Shoe Regular Shoe Right Footwear Regular Shoe Regular Shoe Pain Scale: 0-10 Numeric Is Patient Pain Free? Yes Yes - Nurse 1 - General Ulcer Measurement Start: 09/06/24 13:49 Freq: Status: Active Protocol: Activity Type Activity Date Activity User E-sign Co-sign Detail Recorded Client Recorded Date Recorded By Document 09/06/24 13:49 [id number] 09/06/24 13:52 Document 09/27/24 14:02 [facility] [id number] 09/27/24 14:08 BMF 09/06/24 09/27/24 13:49 14:02 Wound Center Nurse 1 #2 LT ISCHIUM -Current Size (cm) - Length 0.1 -Current Size (cm) - Width 0.1 -Current Size (cm) - Depth 0 -Total Square Cm 0.01 -Date of Last Picture (Recall this 09/06/24 field) -Exudate Amt None Present -Texture (Tsering-wound Skin Appearance) Assessed -Moisture (Tsering-wound Skin Appearance) Assessed -Color (Tsering-wound Skin Appearance) Assessed -Tenderness on Palpation (Tsering-wound No Skin Appearance) -Ulcer Cleansing Soap and Water -Anesthetic Used 5% Lidocaine Gel #1- SACRAL -Combined with other wound No -Current Size (cm) - Length 0.8 0.4 -Current Size (cm) - Width 0.2 0.3 -Current Size (cm) - Depth 0.9 0.5 -Total Square Cm 0.16 0.12 -Date of Last Picture (Recall this 09/06/24 09/27/24 field) -Photo Taken Yes -Epithelialization Small 1-33% -Tunneling No -Undermining/Tunneling No -Circular Undermining No -Exudate Amt Small Medium -Exudate Type Serosanguineous Serosanguineous -Wound Margin Distinct, Distinct, Outline Outline Attached Attached -Granulation Amt Large (67-100%) Large (67-100%) -Granulation Quality Red Red -Slough/Fibrin No -Necrosis Amt None Present (0 %) -Texture (Tesring-wound Skin Appearance) Assessed Assessed -Moisture (Tsering-wound Skin Appearance) Assessed Assessed -Color (Tsering-wound Skin Appearance) Assessed Assessed -Temperature (Tsering-wound Skin No Abnormality No Abnormality Appearance) (Pt Warm) (Pt Warm) -Tenderness on Palpation (Tsering-wound No No Skin Appearance) -Ulcer Cleansing Soap and Water Rinsed/ Irrigated with Saline -Foul Odor after Cleansing No No -Anesthetic Used 5% Lidocaine 5% Lidocaine Gel Gel WC - Nurse 2 - General Ulcer CM Notes Start: 09/06/24 13:49 Freq: Status: Active Protocol: Activity Type Activity Date Activity User E-sign Co-sign Detail Recorded Client Recorded Date Recorded By Document 09/06/24 14:07 [id number] 09/06/24 14:14 Document 09/27/24 15:13 [id number] 09/27/24 15:17 09/06/24 09/27/24 14:07 15:13 Wound Center Nurse 2 #2 LT ISCHIUM -Time 14:07 -Correct Patient Yes -Correct Side, Site, Position Yes -Correct Procedure No -Procedure Performed No -Tunneling No -Undermining/Tunneling No -Circular Undermining No -Wound/Ulcer Outcome Healed- Epithelialized -Foul Odor after Cleansing No -Bioengineered Tissue No -Bleeding Controlled with NA #1- SACRAL -Time 14:08 15:13 -Correct Patient Yes Yes -Correct Side, Site, Position Yes Yes -Correct Procedure Yes Yes -Procedure Performed Yes Yes -Type of Procedure Debridement Debridement -Clinical Debridement Muscle / Fascia Muscle / Fascia -Tissue Removed Muscle Muscle -Post Debridement (cm) - Length 0.8 0.6 -Post Debridement (cm) - Width 0.4 0.4 -Post Debridement (cm) - Depth 0.4 0.4 -Total Square (Post) (cm) 0.32 0.24 -Area of Debridement (cm) - Length 0.8 0.6 -Area of Debridement (cm) - Width 0.7 0.4 -Total Square (Area) (cm) 0.56 0.24 -Tunneling No No -Undermining/Tunneling No No -Circular Undermining No No -Wound/Ulcer Outcome Not Healed Not Healed -Ulcer Cleansing Rinsed/ Rinsed/ Irrigated with Irrigated with Saline Saline -Foul Odor after Cleansing No No -Bioengineered Tissue No No -Bleeding Controlled with Pressure Pressure -Treatment Response Procedure Procedure Tolerated Well Tolerated Well -Debridement - Muscle / Fascia, 1st Yes Yes 20sq cm Pain Scale: 0-10 Numeric Is Patient Pain Free? Yes Yes - Nurse 3 - General Ulcer D/C NN Start: 09/06/24 13:49 Freq: Status: Active Protocol: Activity Type Activity Date Activity User E-sign Co-sign Detail Recorded Client Recorded Date Recorded By Document 09/06/24 14:31 DL [id number] 09/06/24 14:32 DL Document 09/27/24 15:25 [id number] 09/27/24 15:26 BM 09/06/24 09/27/24 14:31 15:25 Wound Care Center Nurse 3 #2 LT ISCHIUM -Ulcer Cleansing Rinsed/ Irrigated with Saline -Foul Odor after Cleansing No -Primary Dressing Applied Aquacel AG 4x4 -Primary Dressing Covered/Secured with Dry Gauze, Secured with Tape -Aquacel AG 4x4 1 #1- SACRAL -Ulcer Cleansing Rinsed/ Rinsed/ Irrigated with Irrigated with Saline Saline -Foul Odor after Cleansing No No -Primary Dressing Applied Nugauze, Iodoform 1in -Other Dressing Aquacel AG abd -Primary Dressing Covered/Secured with Dry Gauze Secured with Tape -Nugauze, Iodoform 1in 1 -Wound Comment(s) 1/2'' unavailable Treatment Response Procedure Procedure Tolerated Well Tolerated Well Pain Scale: 0-10 Numeric Is Patient Pain Free? Yes Yes WC - Visit Discharge Discharge Condition Stable Stable Ambulatory Status Ambulatory, Ambulatory, Walker Walker Transportation Private Auto Private Auto Accompanied by son Facility Type Home Health Home Health Orders Sent Yes Assessment/Plan Assessment/Plan (1) Decubitus ulcer of sacral area: CODE(S): L89.159 - Pressure ulcer of sacral region, unspecified stage (2) Decubitus ulcer of left ischium, stage 3: CODE(S): L89.323 - Pressure ulcer of left buttock, stage 3 (3) Debility: CODE(S): R53.81 - Other malaise PLAN: Plan Patient evaluated at the wound healing center. Wound care - Left ischial ulcer is healed. Sacral ulcer pack 1/2 Iodoform guaze into the base of the ulcer, cover with gauze or ABD or excel SAP dressing daily. Wash areas with soap and water at the time of the dressing changes. She has home health and her son to help her with her dressing changes. Will request home health goes out twice a week to assist with dressing changes. Will order a nutritional consult for wound healing. Encouraged increase protein intake. She drinks carnation instant breakfast drink to help with protein intake. Encouraged patient to continue to off load off of both of these areas as much as possible. Would like to get her a low air loss mattress bed. She states that she does not have enough room for one. Discussed why it is important for her to be off loading on a specialty mattress. Will have her and her son think about this and will revisit the discussion next week. Follow up 2 weeks.
--- NOTE | 2024-09-28 09:00 | WC ---
PHOTO 09/27/24 SACRAL
== END 2024-09-29 23:59 | disposition home or self-care (01) ==
LOC: WC 14:00
PROVIDERS: PCP Internal Medicine; Referring Provider Internal Medicine; Visit Provider Nurse Practitioner Family
DX: L89.154 Pressure ulcer of sacral region, stage 4 (principal); L89.323 Pressure ulcer of left buttock, stage 3; G40.909 Epilepsy, unspecified, not intractable, without status epilepticus; I10 Essential (primary) hypertension; E78.5 Hyperlipidemia, unspecified; R53.81 Other malaise; Z79.82 Long term (current) use of aspirin; Z79.02 Long term (current) use of antithrombotics/antiplatelets; Z79.899 Other long term (current) drug therapy
CPT/HCPCS: 11043

== ENCOUNTER 2024-10-26 11:30 | Outpatient (RCR) | payer MEDICARE, MEDICAID, SELFPAY ==
[2024-09-30 01:42] VITALS: BP 119/48; PULSE 88; RESP 16; TEMP 36.6
[2024-10-26 11:38] VITALS: BP 105/58; PULSE 88; RESP 14; TEMP 36.5
--- NOTE | 2024-10-26 12:56 | PCM.WC.PN ---
History of Present Illness Date of Service: 10/26/24 Chief Complaint: Non healing sacral ulcer History of Wound: Patient is a 74 year female who presents to the wound center for evaluation of an a sacral ulcer and a left ischial ulcer. She was recently hospitalized for UTI/and acute kidney disease. She has a history of HTN, hyperlipidemia, seizure disorder, hypothyroidism, debility. Left ischial ulcer from pressure. The sacral ulcer is in the area of previous ulcer that healed last year. She denies fever, chills, nausea and vomiting. She is accompanied today with her son. She has home health. She sleeps on a couch. She states that she is unsure if a bed would fit into her bedroom due to it being so small. Today denies fever, chills, nausea and vomiting. Progress of Wound: Courtesy Visit for Natalie Wade NP: Last seen here about a month ago. Here with her son who is not the primary skin care technician so knows little about the care at home. No new concerns reported at this time. Objective Data Objective Data Vital Signs: Vital Signs Temp Pulse Resp BP 97.7 F L 88 14 105/58 L 10/26/24 11:38 10/26/24 11:38 10/26/24 11:38 10/26/24 11:38 Weight: 5 lb 4 oz Body Mass Index (BMI) 0.0 Charges/Coding Procedures Integumentary 111xxx-113xx: [id number] Maria M musc/fascia 20 sq cm/< Physical Exam Const alert and no apparent distress General Appearance: cooperative and comfortable HEENT normocephalic and head/scalp atraumatic Eyes EOMs intact bilaterally Neck full ROM and supple Resp normal respiratory effort Effort and Inspection: able to speak in complete sentences Skin Wounds: wounds noted size Size: See clinical note, bed other Not entirely visualized due to location , margins well approximated, no odor, open and surrounding erythema Neuro oriented x3, CN's II-XII intact bilaterally and moves all extremities Psych mental status grossly normal, thought process normal and cooperative Debridement Note Debridement Note Wound debrided: Sacral Type of Debridement: Excisional debridement Anesthesia Used: 5% Lidocaine Gel Depth: Down to and including healthy tissue and to muscle Percentage of wound debrided: 100 Instrument Used: 3mm curette Tissue Removed: Devitalized tissue Amount of bleeding with debridement: Mild Bleeding Controlled with: Pressure Patient tolerated procedure: Patient tolerated procedure well Post-Debridement Measurements and Additional Note: Post-Debridement Measurements/Treatment - Nurse 1 - General Ulcer Assessment Start: 10/26/24 11:34 Freq: Status: Active Protocol: LAURIE Activity Type Activity Date Activity User E-sign Co-sign Detail Recorded Client Recorded Date Recorded By Document 10/26/24 11:38 ML [id number] 10/26/24 11:44 ML 10/26/24 11:38 - Today's Visit Information Type of service Follow-up Visit (Physician/BOARD CERTIFIED ORTHODONTIST ) Arrival Mode Walker Transfer Assistance None Patient Identification Verified (Name & Yes ) Patient Requires Transmission-Based No Precautions Height and Weight Body Mass Index (BMI) 0.0 BMI Classification Underweight Vital Signs Temperature (97.8 F-99.1 F) 97.7 F L Temperature Source Temporal Pulse Rate (60-100) 88 Pulse Location Monitor Respiratory Rate (12-18) 14 Respiratory rate source Observation Blood Pressure (90/60-120/80) 105/58 L Blood Pressure Mean (mm Hg) 73 Source Monitor Position Sitting Blood Pressure Location Right Arm History Since Last Visit- (Skip if this is Patient's initial visit) Have you changed medications since your No last visit? Any new allergies or adverse reactions No Had a fall/change in ADL's that may No increase risk of falls Signs or symptoms of abuse and/or No neglect since last visit Has dressing in place as prescribed Yes Has compression in place as prescribed N/A Has offloadiing in place as prescribed N/A Experienced any changes in pain level or No management Pain Scale: 0-10 Numeric Is Patient Pain Free? Yes - Nurse 1 - General Ulcer Measurement Start: 10/26/24 11:34 Freq: Status: Active Protocol: Activity Type Activity Date Activity User E-sign Co-sign Detail Recorded Client Recorded Date Recorded By Document 10/26/24 11:38 ML [id number] 10/26/24 11:44 ML 10/26/24 11:38 Wound Center Nurse 1 #1- SACRAL -Current Size (cm) - Length 0.5 -Current Size (cm) - Width 0.5 -Current Size (cm) - Depth 0.4 -Total Square Cm 0.25 -Wound Margin Distinct, Outline Attached -Granulation Amt Medium (34-66%) -Slough/Fibrin Yes -Necrosis Amt Medium (34-66%) -Necrotic Tissue Type Adherent Slough -Texture (Tsering-wound Skin Appearance) Assessed -Moisture (Tsering-wound Skin Appearance) Assessed -Color (Tsering-wound Skin Appearance) Assessed -Temperature (Tsering-wound Skin No Abnormality Appearance) (Pt Warm) -Tenderness on Palpation (Tsering-wound Yes Skin Appearance) -Ulcer Cleansing Rinsed/ Irrigated with Saline -Foul Odor after Cleansing No -Anesthetic Used 5% Lidocaine Gel - Nurse 2 - General Ulcer CM Notes Start: 10/26/24 11:34 Freq: Status: Active Protocol: Activity Type Activity Date Activity User E-sign Co-sign Detail Recorded Client Recorded Date Recorded By Document 10/26/24 12:09 [id number] 10/26/24 12:14 10/26/24 12:09 Wound Center Nurse 2 -Time 12:10 -Correct Patient Yes -Correct Side, Site, Position Yes -Correct Procedure Yes -Procedure Performed Yes -Type of Procedure Debridement -Clinical Debridement Muscle / Fascia -Tissue Removed Muscle -Post Debridement (cm) - Length 1.0 -Post Debridement (cm) - Width 0.4 -Post Debridement (cm) - Depth 0.9 -Total Square (Post) (cm) 0.40 -Area of Debridement (cm) - Length 1.0 -Area of Debridement (cm) - Width 0.4 -Total Square (Area) (cm) 0.40 -Tunneling No -Undermining/Tunneling No -Circular Undermining No -Wound/Ulcer Outcome Not Healed -Ulcer Cleansing Rinsed/ Irrigated with Saline -Foul Odor after Cleansing No -Bioengineered Tissue No -Bleeding Controlled with Pressure -Treatment Response Procedure Tolerated Well -Debridement - Muscle / Fascia, 1st Yes 20sq cm Pain Scale: 0-10 Numeric Is Patient Pain Free? Yes - Nurse 3 - General Ulcer D/C NN Start: 10/26/24 11:34 Freq: Status: Active Protocol: Activity Type Activity Date Activity User E-sign Co-sign Detail Recorded Client Recorded Date Recorded By Document 10/26/24 12:16 RB [id number] 10/26/24 12:17 RB 10/26/24 12:16 Wound Care Center Nurse 3 #1- SACRAL -Ulcer Cleansing Rinsed/ Irrigated with Saline -Primary Dressing Applied Nugauze, Iodoform 1/2in -Other Dressing ABD -Primary Dressing Covered/Secured with Secured with Tape -Nugauze, Iodoform 1/2in 1 Treatment Response Procedure Tolerated Well Pain Scale: 0-10 Numeric Is Patient Pain Free? Yes WC - Visit Discharge Discharge Condition Stable Ambulatory Status Ambulatory, Walker Transportation Private Auto Medication Reconcilliation completed & No provided to patient/care provider Clinical Summary of Care Provided Yes Assessment/Plan Assessment/Plan (1) Sacral decubitus ulcer, stage III: CODE(S): L89.153 - Pressure ulcer of sacral region, stage 3 (2) History of stroke: CODE(S): Z86.73 - Personal history of transient ischemic attack (TIA), and cerebral infarction without residual deficits (3) Debility: CODE(S): R53.81 - Other malaise PLAN: Plan Debridement done as documented above, procedure was well-tolerated. No new concerns reported by the patient or her son however he is not the primary caregiver. Compared to her last visit about a month ago, there is an increase in depth. No clinical concerns for infection. No report of increased pain or drainage. Continue half inch iodoform packing. Change daily to twice daily depending on drainage. Cover with foam dressing. Continue offloading and adequate protein intake. Preference of family is for 2-week follow-up. Follow-up with primary.. This note was generated with HQ plus dictation software. It may contain incorrect words, spelling, and punctuation that were not noted in checking the note before signing.
== END 2024-10-27 23:59 | disposition home or self-care (01) ==
LOC: WC 11:30
PROVIDERS: PCP Internal Medicine; Referring Provider Internal Medicine; Visit Provider Internal Medicine
DX: L89.153 Pressure ulcer of sacral region, stage 3 (principal); G40.909 Epilepsy, unspecified, not intractable, without status epilepticus; L89.329 Pressure ulcer of left buttock, unspecified stage; I10 Essential (primary) hypertension; E78.5 Hyperlipidemia, unspecified; E03.9 Hypothyroidism, unspecified; R53.81 Other malaise; Z86.73 Personal history of transient ischemic attack (TIA), and cerebral infarction without residual deficits; Z79.82 Long term (current) use of aspirin; Z79.02 Long term (current) use of antithrombotics/antiplatelets; Z79.890 Hormone replacement therapy; Z79.899 Other long term (current) drug therapy
CPT/HCPCS: 11043

== ENCOUNTER 2024-11-09 10:46 | Outpatient (RCR) | payer MEDICARE, MEDICAID, SELFPAY ==
[2024-10-28 01:07] VITALS: BP 105/58; PULSE 88; RESP 14; TEMP 36.5
[2024-11-09 10:49] VITALS: BP 146/55; PULSE 87; RESP 18; TEMP 36.7
--- NOTE | 2024-11-09 12:06 | PCM.WC.PN ---
History of Present Illness Date of Service: 11/09/24 Chief Complaint: Non healing sacral ulcer History of Wound: Patient is a 74 year female who presents to the wound center for evaluation of an a sacral ulcer and a left ischial ulcer. She was recently hospitalized for UTI/and acute kidney disease. She has a history of HTN, hyperlipidemia, seizure disorder, hypothyroidism, debility. Left ischial ulcer from pressure. The sacral ulcer is in the area of previous ulcer that healed last year. She denies fever, chills, nausea and vomiting. She is accompanied today with her son. She has home health. She sleeps on a couch. She states that she is unsure if a bed would fit into her bedroom due to it being so small. Today denies fever, chills, nausea and vomiting. Progress of Wound: No new concerns reported at this time. Here with her son, no drainage or concerns during dressing changes reported. Objective Data Objective Data Vital Signs: Vital Signs Temp Pulse Resp BP O2 Del Method 98.0 F 87 18 146/55 H Room Air 11/09/24 10:49 11/09/24 10:49 11/09/24 10:49 11/09/24 10:49 11/09/24 10:49 Oxygen Delivery Method Room Air Weight: 5 lb 4 oz Body Mass Index (BMI) 0.0 Charges/Coding Procedures Integumentary [id number]: [id number] Maria M subq tissue 20 sq cm/< Physical Exam Const alert and no apparent distress General Appearance: cooperative and comfortable HEENT normocephalic and head/scalp atraumatic Eyes EOMs intact bilaterally Neck full ROM and supple Resp normal respiratory effort Effort and Inspection: able to speak in complete sentences Skin Wounds: wounds noted size Size: See clinical note, bed other Not entirely visualized due to location , margins well approximated, no odor, open and surrounding erythema Neuro oriented x3, CN's II-XII intact bilaterally and moves all extremities Psych mental status grossly normal, thought process normal and cooperative Debridement Note Debridement Note Wound debrided: Sacral Type of Debridement: Excisional debridement Anesthesia Used: 5% Lidocaine Gel Depth: Down to and including healthy tissue and in the subcutaneous layer Percentage of wound debrided: 100 Instrument Used: 3mm curette Tissue Removed: Devitalized tissue Severity: Fat Layer Exposed Amount of bleeding with debridement: Mild Bleeding Controlled with: Pressure Patient tolerated procedure: Patient tolerated procedure well Post-Debridement Measurements and Additional Note: Post-Debridement Measurements/Treatment - Nurse 1 - General Ulcer Assessment Start: 11/09/24 10:49 Freq: Status: Active Protocol: LAURIE Activity Type Activity Date Activity User E-sign Co-sign Detail Recorded Client Recorded Date Recorded By Document 11/09/24 10:49 AR [id number] 11/09/24 10:56 AR 11/09/24 10:49 - Today's Visit Information Type of service Follow-up Visit (Physician/[employer] ) Arrival Mode Ambulatory Accompanied by son Patient Identification Verified (Name & Yes ) Safety Precautions Fall Prevention Height and Weight Body Mass Index (BMI) 0.0 BMI Classification Underweight Vital Signs Temperature (97.8 F-99.1 F) 98.0 F Temperature Source Temporal Pulse Rate (60-100) 87 Pulse Location Monitor Respiratory Rate (12-18) 18 Respiratory rate source Observation Oxygen Delivery Method Room Air Blood Pressure (90/60-120/80) 146/55 H Blood Pressure Mean (mm Hg) 85 Source Monitor Position Sitting Blood Pressure Location Right Arm History Since Last Visit- (Skip if this is Patient's initial visit) Has dressing in place as prescribed Yes Has compression in place as prescribed Yes Has offloadiing in place as prescribed Yes Experienced any changes in pain level or Yes management Left Footwear Regular Shoe Right Footwear Regular Shoe Pain Scale: 0-10 Numeric Is Patient Pain Free? Yes - Nurse 1 - General Ulcer Measurement Start: 11/09/24 10:49 Freq: Status: Active Protocol: Activity Type Activity Date Activity User E-sign Co-sign Detail Recorded Client Recorded Date Recorded By Document 11/09/24 10:49 AR [id number] 11/09/24 10:56 AR 11/09/24 10:49 Wound Center Nurse 1 #1- SACRAL -Current Size (cm) - Length 1.1 -Current Size (cm) - Width 0.4 -Current Size (cm) - Depth 0.4 -Total Square Cm 0.44 -Date of Last Picture (Recall this 11/09/24 field) -Photo Taken Yes -Epithelialization None Present -Tunneling No -Undermining/Tunneling No -Circular Undermining No -Exudate Amt None Present -Wound Margin Flat & Intact -Granulation Amt None Present (0 %) -Slough/Fibrin No -Structure Exposed N/A -Texture (Tsering-wound Skin Appearance) No Abnormality -Moisture (Tsering-wound Skin Appearance) No Abnormality -Color (Tsering-wound Skin Appearance) No Abnormality -Temperature (Tsering-wound Skin No Abnormality Appearance) (Pt Warm) -Tenderness on Palpation (Tsering-wound No Skin Appearance) -Ulcer Cleansing Soap and Water -Foul Odor after Cleansing No -Anesthetic Used 5% Lidocaine Gel Lower Limb Edema Present NA WC - Nurse 2 - General Ulcer CM Notes Start: 11/09/24 10:49 Freq: Status: Active Protocol: Activity Type Activity Date Activity User E-sign Co-sign Detail Recorded Client Recorded Date Recorded By Document 11/09/24 11:14 [id number] 11/09/24 11:15 11/09/24 11:14 Wound Center Nurse 2 #1- SACRAL -Time 11:14 -Correct Patient Yes -Correct Side, Site, Position Yes -Correct Procedure Yes -Procedure Performed Yes -Type of Procedure Debridement -Clinical Debridement Subcutaneous -Tissue Removed Subcutaneous -Post Debridement (cm) - Length 0.8 -Post Debridement (cm) - Width 0.5 -Post Debridement (cm) - Depth 0.9 -Total Square (Post) (cm) 0.40 -Area of Debridement (cm) - Length 0.8 -Area of Debridement (cm) - Width 0.5 -Total Square (Area) (cm) 0.40 -Tunneling No -Undermining/Tunneling No -Circular Undermining No -Wound/Ulcer Outcome Not Healed -Ulcer Cleansing Rinsed/ Irrigated with Saline -Foul Odor after Cleansing No -Bioengineered Tissue No -Bleeding Controlled with Pressure -Treatment Response Procedure Tolerated Well -Debridement - Subq, 1st 20sq cm Yes Pain Scale: 0-10 Numeric Is Patient Pain Free? Yes - Nurse 3 - General Ulcer D/C NN Start: 11/09/24 10:49 Freq: Status: Active Protocol: Activity Type Activity Date Activity User E-sign Co-sign Detail Recorded Client Recorded Date Recorded By Document 11/09/24 11:39 CP 11/09/24 11:40 CP 11/09/24 11:39 Wound Care Center Nurse 3 #1- SACRAL -Ulcer Cleansing Rinsed/ Irrigated with Saline -Foul Odor after Cleansing No -Primary Dressing Applied Aquacel Extra -Other Dressing adaptic -Primary Dressing Covered/Secured with Dry Gauze, Secured with Tape -Aquacel Extra 1 Pain Scale: 0-10 Numeric Is Patient Pain Free? Yes WC - Visit Discharge Discharge Condition Stable Ambulatory Status Ambulatory Clinical Summary of Care Provided Yes Facility Type Home Health Orders Sent Yes Assessment/Plan Assessment/Plan (1) Sacral decubitus ulcer, stage IV: CODE(S): L89.154 - Pressure ulcer of sacral region, stage 4 (2) Debility: CODE(S): R53.81 - Other malaise (3) History of stroke: CODE(S): Z86.73 - Personal history of transient ischemic attack (TIA), and cerebral infarction without residual deficits (4) Decubitus ulcer of sacral area: CODE(S): L89.159 - Pressure ulcer of sacral region, unspecified stage PLAN: Plan Debridement done as documented above, procedure was well-tolerated. No new concerns reported at this time. Similar depth to last visit. On chart review, significant depth change following switch from Aquacel to iodoform. Discontinue iodoform and revert to Aquacel extra. Change daily to twice daily depending on drainage. Cover with foam dressing. Moisturize area of surrounding irritation, Vaseline recommended for now. Continue offloading and adequate protein intake. Son is concerned about elevated blood glucose but no diagnosis of diabetes mellitus, A1c ordered, will review. No recent labs, CBC, CMP, ESR, CRP and prealbumin level ordered. Sacral x-ray also ordered due to chronicity and ulcer probes to bone, will be beneficial to rule out osteomyelitis. His questions were answered and he was advised to let us know if he has any further questions or concerns. Follow-up in a week or sooner if needed. This note was generated with [employer] software. It may contain incorrect words, spelling, and punctuation that were not noted in checking the note before signing.
--- NOTE | 2024-11-10 12:10 | WC ---
PHOTO 11/09/24 SACRAL
--- NOTE | 2024-11-10 12:12 | WC ---
PHOTO 11/09/24 SACRAL
--- NOTE | 2024-11-23 14:35 | RAD_ITS ---
EXAM: XR Sacrum and Coccyx, 2 or more Views CLINICAL INDICATION: SACRAL ULCER STAGE IV TECHNIQUE: Frontal and lateral views of the sacrum and coccyx. COMPARISON: No relevant prior studies available. FINDINGS: SACRUM/COCCYX: Unremarkable as visualized. No acute fracture. VERTEBRAE: Visualized lumbar vertebrae are unremarkable. SOFT TISSUES: Soft tissue swelling. OTHER FINDINGS: No obvious radiographic evidence of osteomyelitis. However, if clinical suspicion remains high, further evaluation with 3 phase bone scan or MRI is recommended. No erosive changes to the osseous structures. RAD/Sacrum-Coccyx min 2 Views IMPRESSION: No obvious radiographic evidence of osteomyelitis. However, if clinical suspici on remains high, further evaluation with 3 phase bone scan or MRI is recommended. Reading Location: [facility]
[2024-11-23 15:55] LABS: Absolute Lymphocyte Count 1.42 X10^3/uL (0.83-4.51); Absolute Neutrophil Count 5.5 X10^3/uL (2.0-7.7); Basophil# 0.06 X10^3/uL; Basophil% 0.8 % (0-1); Eosinophil# 0.16 X10^3/uL; Hematocrit 38.5 % (37-47); Hemoglobin 12.5 g/dL (12.0-15.0); Lymphocyte # 1.42 X10^3/ul (0.83-4.51); Lymphocyte % 18.1 % (19-41); Mean Corp Hgb Conc 32.5 g/dL (32-36); Mean Corpuscular Volume 92.3 fL (81-99); Mean Platelet Vol. 10.5 fl (6.2-12.0); Monocyte# 0.62 X10^3/uL; Monocyte% 7.9 % (0-10); NRBC Flagged by Analyzer 0 % (0-5); Neutrophil # 5.53 X10^3/uL (2.7-7.7); Neutrophil % 70.7 % (47-70); Platelet Count 234 K/mm3 (150-450); RBC Distribution Width CV 15.4 % (11.6-14.6); RBC Distribution Width SD 53.3 fl (35.1-43.9); Red Blood Count 4.17 M/mm3 (4.2-5.4); White Blood Count 7.8 K/mm3 (4.4-11.0)
[2024-11-23 16:10] LABS: Erythrocyte Sedimentation Rate 6 mm/hr (0-30)
[2024-11-23 19:43] LABS: ALB/GLOB Ratio 1.4 RATIO (0.9-2.4); AST(SGOT) 21 U/L (<=31); Alanine Aminotransfer ALT/SGPT 16 U/L (<=34); Albumin, Serum 3.8 g/dL (3.4-4.8); Alkaline Phosphatase 63 U/L (35-104); Anion Gap 13 (5-15); BUN 26 mg/dL (4-19); BUN/Creat Ratio 28.3 RATIO (10-20); Calcium,Total 9.2 mg/dL (7.6-11.0); Carbon Dioxide 24.3 mmol/L (21.0-32.0); Chloride 104 mmol/L (98-108); Creatinine, Serum 0.91 mg/dL (0.70-1.20); EST Glomerular Filtration Rate 66 (>60); Estimated Creatinine Clearance 46.84 ml/min (50-250); Globulin 2.7 g/dL (2.2-4.2); Glucose 103 mg/dL (70-99); Potassium 4.5 mmol/L (3.3-5.1); Protein, Total 6.5 g/dL (5.9-8.4); Sodium Level 141 mmol/L (133-145); Total Bilirubin 0.37 mg/dL (0.00-1.30)
[2024-11-23 19:58] LABS: CRP 5.57 mg/L (0.0-3.0)
[2024-11-23 21:37] LABS: Hemoglobin A1c 6.3 % (<=5.6)
[2024-11-25 04:07] LABS: Prealbumin 25 mg/dL (9-32)
== END 2024-11-27 23:59 | disposition home or self-care (01) ==
LOC: WC 10:46
PROVIDERS: PCP Internal Medicine; Referring Provider Internal Medicine; Visit Provider Internal Medicine
DX: L89.154 Pressure ulcer of sacral region, stage 4 (principal); G40.909 Epilepsy, unspecified, not intractable, without status epilepticus; I10 Essential (primary) hypertension; E78.5 Hyperlipidemia, unspecified; E03.9 Hypothyroidism, unspecified; Z79.82 Long term (current) use of aspirin; Z79.02 Long term (current) use of antithrombotics/antiplatelets; Z79.890 Hormone replacement therapy; Z79.899 Other long term (current) drug therapy; Z86.73 Personal history of transient ischemic attack (TIA), and cerebral infarction without residual deficits
CPT/HCPCS: 11042; 36415; 72220; 80053; 83036; 84134; 85025; 85652; 86140; 97802

== ENCOUNTER 2025-01-25 10:00 | Outpatient (RCR) | payer MEDICARE, MEDICAID, SELFPAY ==
[2024-11-28 00:44] VITALS: BP 146/55; PULSE 87; RESP 18; TEMP 36.7
[2024-12-28 11:20] VITALS: BP 127/59; PULSE 80; RESP 18; TEMP 35.8
--- NOTE | 2024-12-28 12:32 | PCM.WC.PN ---
History of Present Illness Date of Service: 12/28/24 Chief Complaint: Non healing sacral ulcer History of Wound: Patient is a 74 year female who presents to the wound center for evaluation of an a sacral ulcer and a left ischial ulcer. She was recently hospitalized for UTI/and acute kidney disease. She has a history of HTN, hyperlipidemia, seizure disorder, hypothyroidism, debility. Left ischial ulcer from pressure. The sacral ulcer is in the area of previous ulcer that healed last year. She denies fever, chills, nausea and vomiting. She is accompanied today with her son. She has home health. She sleeps on a couch. She states that she is unsure if a bed would fit into her bedroom due to it being so small. Today denies fever, chills, nausea and vomiting. Progress of Wound: No new concerns reported at this time. Here with her son. Last seen here over 3 weeks ago. He states that he has been doing dressing changes as recommended. Objective Data Objective Data Vital Signs: Vital Signs Temp Pulse Resp BP 96.5 F L 80 18 127/59 H 12/28/24 11:20 12/28/24 11:20 12/28/24 11:20 12/28/24 11:20 Weight: 140 lb 0.002 oz Body Mass Index (BMI) 0.0 Physical Exam Const alert and no apparent distress General Appearance: cooperative and comfortable HEENT normocephalic and head/scalp atraumatic Eyes EOMs intact bilaterally Neck full ROM and supple Resp normal respiratory effort Effort and Inspection: able to speak in complete sentences Skin Wounds: wounds noted size Size: See clinical note, bed other Not entirely visualized due to location , margins well approximated, no odor, open and surrounding erythema Neuro oriented x3, CN's II-XII intact bilaterally and moves all extremities Psych mental status grossly normal, thought process normal and cooperative Debridement Note Debridement Note Wound debrided: Sacral Wound Grade/Stage: Stage IV Type of Debridement: Excisional debridement Anesthesia Used: 5% Lidocaine Gel Depth: Down to and including healthy tissue and in the subcutaneous layer Percentage of wound debrided: 100 Instrument Used: 3mm curette Tissue Removed: Devitalized tissue Severity: Fat Layer Exposed Amount of bleeding with debridement: Mild Bleeding Controlled with: Pressure Patient tolerated procedure: Patient tolerated procedure well Post-Debridement Measurements and Additional Note: Post-Debridement Measurements/Treatment WC - Nurse 1 - General Ulcer Assessment Start: 12/28/24 11:20 Freq: Status: Active Protocol: LAURIE Activity Type Activity Date Activity User E-sign Co-sign Detail Recorded Client Recorded Date Recorded By Document 12/28/24 11:20 RB [id number] 12/28/24 11:22 RB 12/28/24 11:20 - Today's Visit Information Type of service Follow-up Visit (Physician/[employer]ICIAN APPRENTICE DISPENSING ) Arrival Mode Ambulatory Transfer Assistance None Patient Identification Verified (Name & Yes ) Patient Requires Transmission-Based No Precautions Height and Weight Body Mass Index (BMI) 0.0 BMI Classification Underweight Vital Signs Temperature (97.8 F-99.1 F) 96.5 F L Temperature Source Temporal Pulse Rate (60-100) 80 Pulse Location Monitor Respiratory Rate (12-18) 18 Respiratory rate source Observation Blood Pressure (90/60-120/80) 127/59 H Blood Pressure Mean (mm Hg) 81 Source Monitor Position Semi-Fowlers Blood Pressure Location Left Arm History Since Last Visit- (Skip if this is Patient's initial visit) Have you changed medications since your No last visit? Any new allergies or adverse reactions No Had a fall/change in ADL's that may No increase risk of falls Signs or symptoms of abuse and/or No neglect since last visit Have you been in the hospital since your No last visit? Has dressing in place as prescribed Yes Has compression in place as prescribed N/A Has offloadiing in place as prescribed N/A Experienced any changes in pain level or No management Pain Scale: 0-10 Numeric Is Patient Pain Free? Yes - Nurse 1 - General Ulcer Measurement Start: 12/28/24 11:20 Freq: Status: Active Protocol: Activity Type Activity Date Activity User E-sign Co-sign Detail Recorded Client Recorded Date Recorded By Document 12/28/24 11:20 RB [id number] 12/28/24 11:22 RB 12/28/24 11:20 Wound Center Nurse 1 #1- SACRAL -Combined with other wound No -Current Size (cm) - Length 0.4 -Current Size (cm) - Width 0.5 -Current Size (cm) - Depth 1.3 -Total Square Cm 0.20 -Photo Taken Yes -Tunneling No -Undermining/Tunneling No -Circular Undermining No -Exudate Amt Medium -Exudate Type Serosanguineous -Wound Margin Thickened & Rolled Under -Granulation Amt Medium (34-66%) -Granulation Quality [place] -Slough/Fibrin Yes -Necrosis Amt Small (1-33%) -Necrotic Tissue Type Adherent Slough -Structure Exposed N/A -Texture (Tsering-wound Skin Appearance) Assessed, Scarring -Moisture (Tsering-wound Skin Appearance) Assessed -Color (Tsering-wound Skin Appearance) Assessed -Temperature (Tsering-wound Skin No Abnormality Appearance) (Pt Warm) -Tenderness on Palpation (Tsering-wound No Skin Appearance) -Ulcer Cleansing Wound Cleanser -Foul Odor after Cleansing No -Anesthetic Used 5% Lidocaine Gel [place] - Nurse 2 - General Ulcer CM Notes Start: 12/28/24 11:20 Freq: Status: Active Protocol: Activity Type Activity Date Activity User E-sign Co-sign Detail Recorded Client Recorded Date Recorded By Document 12/28/24 11:32 [id number] 12/28/24 11:36 12/28/24 11:32 Wound Center Nurse 2 -Time 11:32 -Correct Patient Yes -Correct Side, Site, Position Yes -Correct Procedure Yes -Procedure Performed Yes -Type of Procedure Debridement -Clinical Debridement Subcutaneous -Tissue Removed Subcutaneous -Post Debridement (cm) - Length 0.4 -Post Debridement (cm) - Width 0.4 -Post Debridement (cm) - Depth 0.8 -Total Square (Post) (cm) 0.16 -Area of Debridement (cm) - Length 0.4 -Area of Debridement (cm) - Width 0.4 -Total Square (Area) (cm) 0.16 -Tunneling No -Undermining/Tunneling No -Circular Undermining No -Wound/Ulcer Outcome Not Healed -Ulcer Cleansing Rinsed/ Irrigated with Saline -Foul Odor after Cleansing No -Bioengineered Tissue No -Bleeding Controlled with Pressure -Treatment Response Procedure Tolerated Well -Offloading No -Debridement - Subq, 1st 20sq cm Yes Pain Scale: 0-10 Numeric Is Patient Pain Free? Yes [place] - Nurse 3 - General Ulcer D/C NN Start: 12/28/24 11:20 Freq: Status: Active Protocol: Activity Type Activity Date Activity User E-sign Co-sign Detail Recorded Client Recorded Date Recorded By Document 12/28/24 11:51 [id number] 12/28/24 11:52 CP 12/28/24 11:51 Wound Care Center Nurse 3 #1- SACRAL -Ulcer Cleansing Rinsed/ Irrigated with Saline -Primary Dressing Applied Aquacel Extra, Silicone Border Foam 4x4 -Aquacel Extra 1 -Silicone Border Foam 4x4 1 Pain Scale: 0-10 Numeric Is Patient Pain Free? Yes WC - Visit Discharge Discharge Condition Stable Ambulatory Status Ambulatory, Walker Clinical Summary of Care Provided Yes Assessment/Plan Assessment/Plan (1) Sacral decubitus ulcer, stage IV: CODE(S): L89.154 - Pressure ulcer of sacral region, stage 4 (2) Debility: CODE(S): R53.81 - Other malaise (3) History of stroke: CODE(S): Z86.73 - Personal history of transient ischemic attack (TIA), and cerebral infarction without residual deficits (4) Decubitus ulcer of sacral area: CODE(S): L89.159 - Pressure ulcer of sacral region, unspecified stage PLAN: Plan Debridement done as documented above, procedure was well-tolerated. No new concerns reported at this time as above, has not been seen in over 3 weeks. At her last visit, she was switched from iodoform to Aquacel due to some worsening appreciated at that time. Improvement noted since her last visit. They state that they have been doing Aquacel changes as recommended. Continue Aquacel and change daily to twice daily depending on drainage. Cover with foam dressing. Surrounding erythema has resolved, continue adequate moisturizing. Continue offloading and adequate protein intake. Imaging ordered at her last visit reviewed, no concern for osteomyelitis. A1c was also at 6.3 similar to last A1c check in 2018. ESR was normal. Continue chronic management. Their questions were answered and he was advised to let us know if he has any further questions or concerns. Follow-up in 2 weeks per preference. This note was generated with [employer] software. It may contain incorrect words, spelling, and punctuation that were not noted in checking the note before signing.
--- NOTE | 2024-12-29 12:02 | WC ---
PHOTO 12/28/24 SACRAL
[2025-01-18 11:38] VITALS: BP 118/55; PULSE 88; RESP 18; TEMP 35.8
--- NOTE | 2025-01-18 12:36 | PCM.WC.PN ---
History of Present Illness Date of Service: 01/18/25 Chief Complaint: Non healing sacral ulcer History of Wound: Patient is a 74 year female who presents to the wound center for evaluation of an a sacral ulcer and a left ischial ulcer. She was recently hospitalized for UTI/and acute kidney disease. She has a history of HTN, hyperlipidemia, seizure disorder, hypothyroidism, debility. Left ischial ulcer from pressure. The sacral ulcer is in the area of previous ulcer that healed last year. She denies fever, chills, nausea and vomiting. She is accompanied today with her son. She has home health. She sleeps on a couch. She states that she is unsure if a bed would fit into her bedroom due to it being so small. Today denies fever, chills, nausea and vomiting. Progress of Wound: No new concerns reported at this time. Missed her last appointment and last seen here about 3 weeks ago. Objective Data Objective Data Vital Signs: Vital Signs Temp Pulse Resp BP 96.5 F L 88 18 118/55 L 01/18/25 11:38 01/18/25 11:38 01/18/25 11:38 01/18/25 11:38 Weight: 140 lb 0.002 oz Body Mass Index (BMI) 0.0 Charges/Coding Procedures Integumentary 111xxx-113xx: [id number] Maria M subq tissue 20 sq cm/< Physical Exam Const alert and no apparent distress General Appearance: cooperative and comfortable HEENT normocephalic and head/scalp atraumatic Eyes EOMs intact bilaterally Neck full ROM and supple Resp normal respiratory effort Effort and Inspection: able to speak in complete sentences Skin Wounds: wounds noted size Size: See clinical note, bed other Not entirely visualized due to location , margins well approximated, no odor, open and surrounding erythema Neuro oriented x3, CN's II-XII intact bilaterally and moves all extremities Psych mental status grossly normal, thought process normal and cooperative Debridement Note Debridement Note Wound debrided: Sacral Type of Debridement: Excisional debridement Anesthesia Used: 5% Lidocaine Gel Depth: Down to and including healthy tissue and in the subcutaneous layer Percentage of wound debrided: 100 Instrument Used: 3mm curette Tissue Removed: Devitalized tissue Severity: Fat Layer Exposed Amount of bleeding with debridement: Mild Bleeding Controlled with: Pressure Patient tolerated procedure: Patient tolerated procedure well Post-Debridement Measurements and Additional Note: Post-Debridement Measurements/Treatment WC - Nurse 1 - General Ulcer Assessment Start: 12/28/24 11:20 Freq: Status: Active Protocol: LAURIE Activity Type Activity Date Activity User E-sign Co-sign Detail Recorded Client Recorded Date Recorded By Document 12/28/24 11:20 RB [id number] 12/28/24 11:22 RB Document 01/18/25 11:38 RB [id number] 01/18/25 11:39 RB 12/28/24 01/18/25 11:20 11:38 WC - Today's Visit Information Type of service Follow-up Visit Follow-up Visit (Physician/[employer] OFFICER (Physician/[employer] OFFICER ) ) Arrival Mode Ambulatory Ambulatory, Walker Transfer Assistance None Manual Patient Identification Verified (Name & Yes Yes ) Patient Requires Transmission-Based No No Precautions Height and Weight Body Mass Index (BMI) 0.0 0.0 BMI Classification Underweight Underweight Vital Signs Temperature (97.8 F-99.1 F) 96.5 F L 96.5 F L Temperature Source Temporal Temporal Pulse Rate (60-100) 80 88 Pulse Location Monitor Monitor Respiratory Rate (12-18) 18 18 Respiratory rate source Observation Observation Blood Pressure (90/60-120/80) 127/59 H 118/55 L Blood Pressure Mean (mm Hg) 81 76 Source Monitor Monitor Position Semi-Fowlers Sitting Blood Pressure Location Left Arm Left Arm History Since Last Visit- (Skip if this is Patient's initial visit) Have you changed medications since your No No last visit? Any new allergies or adverse reactions No No Had a fall/change in ADL's that may No No increase risk of falls Signs or symptoms of abuse and/or No No neglect since last visit Have you been in the hospital since your No No last visit? Has dressing in place as prescribed Yes Yes Has compression in place as prescribed N/A N/A Has offloadiing in place as prescribed N/A N/A Experienced any changes in pain level or No No management Pain Scale: 0-10 Numeric Is Patient Pain Free? Yes Yes - Nurse 1 - General Ulcer Measurement Start: 12/28/24 11:20 Freq: Status: Active Protocol: Activity Type Activity Date Activity User E-sign Co-sign Detail Recorded Client Recorded Date Recorded By Document 12/28/24 11:20 RB [id number] 12/28/24 11:22 RB Document 01/18/25 11:38 RB [id number] 01/18/25 11:39 RB 12/28/24 01/18/25 11:20 11:38 Wound Center Nurse 1 #1- SACRAL -Combined with other wound No No -Current Size (cm) - Length 0.4 0.3 -Current Size (cm) - Width 0.5 0.3 -Current Size (cm) - Depth 1.3 0.7 -Total Square Cm 0.20 0.09 -Photo Taken Yes Yes -Tunneling No No -Undermining/Tunneling No No -Circular Undermining No No -Exudate Amt Medium Medium -Exudate Type Serosanguineous Serosanguineous -Wound Margin Thickened & Thickened & Rolled Under Rolled Under -Granulation Amt Medium (34-66%) Medium (34-66%) -Granulation Quality [place] -Slough/Fibrin Yes Yes -Necrosis Amt Small (1-33%) Medium (34-66%) -Necrotic Tissue Type Adherent Slough Adherent Slough -Structure Exposed N/A N/A -Texture (Tsering-wound Skin Appearance) Assessed, Assessed, Scarring Scarring -Moisture (Tsering-wound Skin Appearance) Assessed Assessed -Color (Tsering-wound Skin Appearance) Assessed Assessed -Temperature (Tsering-wound Skin No Abnormality No Abnormality Appearance) (Pt Warm) (Pt Warm) -Tenderness on Palpation (Tsering-wound No No Skin Appearance) -Ulcer Cleansing Wound Cleanser Wound Cleanser -Foul Odor after Cleansing No No -Anesthetic Used 5% Lidocaine 5% Lidocaine Gel Gel WC - Nurse 2 - General Ulcer CM Notes Start: 12/28/24 11:20 Freq: Status: Active Protocol: Activity Type Activity Date Activity User E-sign Co-sign Detail Recorded Client Recorded Date Recorded By Document 12/28/24 11:32 [id number] 12/28/24 11:36 Document 01/18/25 11:46 [id number] 01/18/25 11:50 12/28/24 01/18/25 11:32 11:46 Wound Center Nurse 2 #1- SACRAL -Time 11:32 11:46 -Correct Patient Yes Yes -Correct Side, Site, Position Yes Yes -Correct Procedure Yes Yes -Procedure Performed Yes Yes -Type of Procedure Debridement Debridement -Clinical Debridement Subcutaneous Subcutaneous -Tissue Removed Subcutaneous Subcutaneous -Post Debridement (cm) - Length 0.4 0.4 -Post Debridement (cm) - Width 0.4 0.3 -Post Debridement (cm) - Depth 0.8 1.1 -Total Square (Post) (cm) 0.16 0.12 -Area of Debridement (cm) - Length 0.4 0.4 -Area of Debridement (cm) - Width 0.4 0.3 -Total Square (Area) (cm) 0.16 0.12 -Tunneling No No -Undermining/Tunneling No No -Circular Undermining No No -Wound/Ulcer Outcome Not Healed Not Healed -Ulcer Cleansing Rinsed/ Rinsed/ Irrigated with Irrigated with Saline Saline -Foul Odor after Cleansing No No -Bioengineered Tissue No No -Bleeding Controlled with Pressure Pressure -Treatment Response Procedure Procedure Tolerated Well Tolerated Well -Offloading No No -Debridement - Subq, 1st 20sq cm Yes Yes Pain Scale: 0-10 Numeric Is Patient Pain Free? Yes Yes - Nurse 3 - General Ulcer D/C NN Start: 12/28/24 11:20 Freq: Status: Active Protocol: Activity Type Activity Date Activity User E-sign Co-sign Detail Recorded Client Recorded Date Recorded By Document 12/28/24 11:51 CP [id number] 12/28/24 11:52 CP Document 01/18/25 12:01 RB [id number] 01/18/25 12:01 12/28/24 01/18/25 11:51 12:01 Wound Care Center Nurse 3 #1- SACRAL -Ulcer Cleansing Rinsed/ Rinsed/ Irrigated with Irrigated with Saline Saline -Primary Dressing Applied Aquacel Extra, Aquacel Extra, Silicone Border NonAdherent Foam 4x4 Contact Layer, Silicone Border Foam 4x4 -Aquacel Extra 1 1 -Silicone Border Foam 4x4 1 1 Treatment Response Procedure Tolerated Well Pain Scale: 0-10 Numeric Is Patient Pain Free? Yes Yes - Visit Discharge Discharge Condition Stable Stable Ambulatory Status Ambulatory, Ambulatory, Walker Walker Transportation Private Auto Medication Reconcilliation completed & No provided to patient/care provider Clinical Summary of Care Provided Yes Yes Assessment/Plan Assessment/Plan (1) Sacral decubitus ulcer, stage IV: CODE(S): L89.154 - Pressure ulcer of sacral region, stage 4 (2) Debility: CODE(S): R53.81 - Other malaise (3) History of stroke: CODE(S): Z86.73 - Personal history of transient ischemic attack (TIA), and cerebral infarction without residual deficits (4) Decubitus ulcer of sacral area: CODE(S): L89.159 - Pressure ulcer of sacral region, unspecified stage PLAN: Plan Debridement done as documented above, procedure was well-tolerated. Again, missed her last appointment, last seen here 3 weeks ago. She denies any new concerns. Increase in depth noted on examination. No other clinical concerns for infection. Was switched from iodoform to Aquacel months ago due to worsening and at her last visit, there had been some improvement noted. Will hold off any change in dressing at this time. Strongly recommend close follow-up in 1 week, call sooner with any concerns. Continue Aquacel and change daily to twice daily depending on drainage. Cover with foam dressing. Continue offloading, adequate protein intake and other chronic management. Their questions were answered and she was advised to let us know if she had any further questions or concerns. Follow-up in 2 weeks per preference. This note was generated with [employer] dictation software. It may contain incorrect words, spelling, and punctuation that were not noted in checking the note before signing.
[2025-01-25 10:08] VITALS: BP 136/68; PULSE 80; RESP 18; TEMP 36.3
--- NOTE | 2025-01-25 10:59 | PCM.WC.PN ---
History of Present Illness Date of Service: 01/25/25 Chief Complaint: Non healing sacral ulcer History of Wound: Patient is a 74 year female who presents to the wound center for evaluation of an a sacral ulcer and a left ischial ulcer. She was recently hospitalized for UTI/and acute kidney disease. She has a history of HTN, hyperlipidemia, seizure disorder, hypothyroidism, debility. Left ischial ulcer from pressure. The sacral ulcer is in the area of previous ulcer that healed last year. She denies fever, chills, nausea and vomiting. She is accompanied today with her son. She has home health. She sleeps on a couch. She states that she is unsure if a bed would fit into her bedroom due to it being so small. Today denies fever, chills, nausea and vomiting. Progress of Wound: No new concerns reported at this time. Some improvement noted in depth. Objective Data Objective Data Vital Signs: Vital Signs Temp Pulse Resp BP O2 Del Method 97.3 F L 80 18 136/68 H Room Air 01/25/25 10:08 01/25/25 10:08 01/25/25 10:08 01/25/25 10:08 01/25/25 10:08 Oxygen Delivery Method Room Air Weight: 140 lb 0.002 oz Body Mass Index (BMI) 0.0 Charges/Coding Procedures Integumentary 111xxx-113xx: [id number] Maria M subq tissue 20 sq cm/< Physical Exam Const alert and no apparent distress General Appearance: cooperative and comfortable HEENT normocephalic and head/scalp atraumatic Eyes EOMs intact bilaterally Neck full ROM and supple Resp normal respiratory effort Effort and Inspection: able to speak in complete sentences Skin Wounds: wounds noted size Size: See clinical note, bed other Not entirely visualized due to location , margins well approximated, no odor, open and surrounding erythema Neuro oriented x3, CN's II-XII intact bilaterally and moves all extremities Psych mental status grossly normal, thought process normal and cooperative Debridement Note Debridement Note Wound debrided: Sacral Type of Debridement: Excisional debridement Anesthesia Used: 5% Lidocaine Gel Depth: Down to and including healthy tissue and in the subcutaneous layer Percentage of wound debrided: 100 Instrument Used: 3mm curette Tissue Removed: Devitalized tissue Severity: Fat Layer Exposed Amount of bleeding with debridement: Mild Bleeding Controlled with: Pressure Patient tolerated procedure: Patient tolerated procedure well Post-Debridement Measurements and Additional Note: Post-Debridement Measurements/Treatment WC - Nurse 1 - General Ulcer Assessment Start: 12/28/24 11:20 Freq: Status: Active Protocol: LAURIE Activity Type Activity Date Activity User E-sign Co-sign Detail Recorded Client Recorded Date Recorded By Document 12/28/24 11:20 RB [id number] 12/28/24 11:22 RB Document 01/18/25 11:38 RB [id number] 01/18/25 11:39 RB Document 01/25/25 10:08 DS [id number] 01/25/25 10:15 DS 12/28/24 01/18/25 01/25/25 11:20 11:38 10:08 WC - Today's Visit Information Type of service Follow-up Visit Follow-up Visit Follow-up Visit (Physician/[employer] OFFICER (Physician/MAJOR GIFTS OFFICER (Physician/MAJOR [employer]IFTS OFFICER ) ) ) Arrival Mode Ambulatory Ambulatory, Ambulatory, Walker Walker Transfer Assistance None Manual Patient Identification Verified (Name & Yes Yes Yes ) Patient Requires Transmission-Based No No No Precautions Safety Precautions Fall Prevention Height and Weight Body Mass Index (BMI) 0.0 0.0 0.0 BMI Classification Underweight Underweight Underweight Vital Signs Temperature (97.8 F-99.1 F) 96.5 F L 96.5 F L 97.3 F L Temperature Source Temporal Temporal Temporal Pulse Rate (60-100) 80 88 80 Pulse Location Monitor Monitor Monitor Respiratory Rate (12-18) 18 18 18 Respiratory rate source Observation Observation Observation Oxygen Delivery Method Room Air Blood Pressure (90/60-120/80) 127/59 H 118/55 L 136/68 H Blood Pressure Mean (mm Hg) 81 76 90 Source Monitor Monitor Monitor Position Semi-Fowlers Sitting Semi-Fowlers Blood Pressure Location Left Arm Left Arm Right Arm History Since Last Visit- (Skip if this is Patient's initial visit) Have you changed medications since your No No No last visit? Any new allergies or adverse reactions No No No Had a fall/change in ADL's that may No No No increase risk of falls Signs or symptoms of abuse and/or No No No neglect since last visit Have you been in the hospital since your No No No last visit? Has dressing in place as prescribed Yes Yes Yes Has compression in place as prescribed N/A N/A N/A Has offloadiing in place as prescribed N/A N/A N/A Experienced any changes in pain level or No No No management Left Footwear Regular Shoe Right Footwear Regular Shoe Pain Scale: 0-10 Numeric Is Patient Pain Free? Yes Yes Yes WC - Nurse 1 - General Ulcer Measurement Start: 12/28/24 11:20 Freq: Status: Active Protocol: Activity Type Activity Date Activity User E-sign Co-sign Detail Recorded Client Recorded Date Recorded By Document 12/28/24 11:20 RB [id number] 12/28/24 11:22 RB Document 01/18/25 11:38 RB [id number] 01/18/25 11:39 RB Document 01/25/25 10:08 DS [id number] 01/25/25 10:15 DS 12/28/24 01/18/25 01/25/25 11:20 11:38 10:08 Wound Center Nurse 1 #1- SACRAL -Combined with other wound No No -Current Size (cm) - Length 0.4 0.3 0.4 -Current Size (cm) - Width 0.5 0.3 0.4 -Current Size (cm) - Depth 1.3 0.7 1.0 -Total Square Cm 0.20 0.09 0.16 -Photo Taken Yes Yes No -Tunneling No No No -Undermining/Tunneling No No No -Circular Undermining No No No -Exudate Amt Medium Medium None Present -Exudate Type Serosanguineous Serosanguineous -Wound Margin Thickened & Thickened & Distinct, Rolled Under Rolled Under Outline Attached -Granulation Amt Medium (34-66%) Medium (34-66%) -Granulation Quality [place] -Slough/Fibrin Yes Yes -Necrosis Amt Small (1-33%) Medium (34-66%) -Necrotic Tissue Type Adherent Slough Adherent Slough -Structure Exposed N/A N/A -Texture (Tsering-wound Skin Appearance) Assessed, Assessed, Assessed Scarring Scarring -Moisture (Tsering-wound Skin Appearance) Assessed Assessed Assessed -Color (Tsering-wound Skin Appearance) Assessed Assessed Assessed -Temperature (Tsering-wound Skin No Abnormality No Abnormality No Abnormality Appearance) (Pt Warm) (Pt Warm) (Pt Warm) -Tenderness on Palpation (Tsering-wound No No No Skin Appearance) -Ulcer Cleansing Wound Cleanser Wound Cleanser Soap and Water -Foul Odor after Cleansing No No No -Anesthetic Used 5% Lidocaine 5% Lidocaine 5% Lidocaine Gel Gel Gel - Nurse 2 - General Ulcer CM Notes Start: 12/28/24 11:20 Freq: Status: Active Protocol: Activity Type Activity Date Activity User E-sign Co-sign Detail Recorded Client Recorded Date Recorded By Document 12/28/24 11:32 [id number] 12/28/24 11:36 Document 01/18/25 11:46 [id number] 01/18/25 11:50 Document 01/25/25 10:22 [id number] 01/25/25 10:25 12/28/24 01/18/25 01/25/25 11:32 11:46 10:22 Wound Center Nurse 2 #1- SACRAL -Time 11:32 11:46 10:22 -Correct Patient Yes Yes Yes -Correct Side, Site, Position Yes Yes Yes -Correct Procedure Yes Yes Yes -Procedure Performed Yes Yes Yes -Type of Procedure Debridement Debridement Debridement -Clinical Debridement Subcutaneous Subcutaneous Subcutaneous -Tissue Removed Subcutaneous Subcutaneous Subcutaneous -Post Debridement (cm) - Length 0.4 0.4 0.4 -Post Debridement (cm) - Width 0.4 0.3 0.3 -Post Debridement (cm) - Depth 0.8 1.1 0.6 -Total Square (Post) (cm) 0.16 0.12 0.12 -Area of Debridement (cm) - Length 0.4 0.4 0.4 -Area of Debridement (cm) - Width 0.4 0.3 0.3 -Total Square (Area) (cm) 0.16 0.12 0.12 -Tunneling No No No -Undermining/Tunneling No No No -Circular Undermining No No No -Wound/Ulcer Outcome Not Healed Not Healed Not Healed -Ulcer Cleansing Rinsed/ Rinsed/ Rinsed/ Irrigated with Irrigated with Irrigated with Saline Saline Saline -Foul Odor after Cleansing No No No -Bioengineered Tissue No No No -Bleeding Controlled with Pressure Pressure Pressure -Treatment Response Procedure Procedure Procedure Tolerated Well Tolerated Well Tolerated Well -Offloading No No No -Debridement - Subq, 1st 20sq cm Yes Yes Yes Pain Scale: 0-10 Numeric Is Patient Pain Free? Yes Yes Yes - Nurse 3 - General Ulcer D/C NN Start: 12/28/24 11:20 Freq: Status: Active Protocol: Activity Type Activity Date Activity User E-sign Co-sign Detail Recorded Client Recorded Date Recorded By Document 12/28/24 11:51 CP [id number] 12/28/24 11:52 CP Document 01/18/25 12:01 RB [id number] 01/18/25 12:01 RB Document 01/25/25 10:33 DS [id number] 01/25/25 10:41 DS 12/28/24 01/18/25 01/25/25 11:51 12:01 10:33 Wound Care Center Nurse 3 #1- SACRAL -Ulcer Cleansing Rinsed/ Rinsed/ Irrigated with Irrigated with Saline Saline -Primary Dressing Applied Aquacel Extra, Aquacel Extra, Aquacel Extra, Silicone Border NonAdherent NonAdherent Foam 4x4 Contact Layer, Contact Layer Silicone Border Foam 4x4 -Other Dressing abd -Primary Dressing Covered/Secured with Secured with Tape -Aquacel Extra 1 1 1 -Silicone Border Foam 4x4 1 1 Treatment Response Procedure Tolerated Well Pain Scale: 0-10 Numeric Is Patient Pain Free? Yes Yes Yes WC - Visit Discharge Discharge Condition Stable Stable Stable Ambulatory Status Ambulatory, Ambulatory, Ambulatory, Walker Walker Walker Transportation Private Auto Private Auto Medication Reconcilliation completed & No provided to patient/care provider Clinical Summary of Care Provided Yes Yes Assessment/Plan Assessment/Plan (1) Sacral decubitus ulcer, stage IV: CODE(S): L89.154 - Pressure ulcer of sacral region, stage 4 (2) Debility: CODE(S): R53.81 - Other malaise (3) History of stroke: CODE(S): Z86.73 - Personal history of transient ischemic attack (TIA), and cerebral infarction without residual deficits (4) Decubitus ulcer of sacral area: CODE(S): L89.159 - Pressure ulcer of sacral region, unspecified stage PLAN: Plan Debridement done as documented above, procedure was well-tolerated. Some improvement in depth. No pain or drainage reported by the patient. Continue Aquacel and change daily to twice daily depending on drainage. Cover with foam dressing. Continue offloading, adequate protein intake and other chronic management. Her questions were answered and she was advised to let us know if she had any further questions or concerns. Follow-up 1 week or sooner if needed. This note was generated with [employer] software. It may contain incorrect words, spelling, and punctuation that were not noted in checking the note before signing.
== END 2025-01-27 23:59 | disposition home or self-care (01) ==
LOC: WC 10:00
PROVIDERS: PCP Internal Medicine; Referring Provider Internal Medicine; Visit Provider Internal Medicine
DX: L89.154 Pressure ulcer of sacral region, stage 4 (principal); G40.909 Epilepsy, unspecified, not intractable, without status epilepticus; E78.5 Hyperlipidemia, unspecified; I10 Essential (primary) hypertension; E03.9 Hypothyroidism, unspecified; Z79.82 Long term (current) use of aspirin; Z79.02 Long term (current) use of antithrombotics/antiplatelets; Z79.890 Hormone replacement therapy; Z79.899 Other long term (current) drug therapy; Z86.73 Personal history of transient ischemic attack (TIA), and cerebral infarction without residual deficits
CPT/HCPCS: 11042

== ENCOUNTER 2025-02-19 14:15 | Outpatient (RCR) | payer MEDICARE, MEDICAID, SELFPAY ==
[2025-01-28 00:26] VITALS: BP 136/68; PULSE 80; RESP 18; TEMP 36.3
[2025-02-01 11:00] VITALS: BP 110/55; PULSE 78; RESP 18; TEMP 36.1
--- NOTE | 2025-02-01 12:31 | PCM.WC.PN ---
History of Present Illness Date of Service: 02/01/25 Chief Complaint: Non healing sacral ulcer History of Wound: Patient is a 74 year female who presents to the wound center for evaluation of an a sacral ulcer and a left ischial ulcer. She was recently hospitalized for UTI/and acute kidney disease. She has a history of HTN, hyperlipidemia, seizure disorder, hypothyroidism, debility. Left ischial ulcer from pressure. The sacral ulcer is in the area of previous ulcer that healed last year. She denies fever, chills, nausea and vomiting. She is accompanied today with her son. She has home health. She sleeps on a couch. She states that she is unsure if a bed would fit into her bedroom due to it being so small. Today denies fever, chills, nausea and vomiting. Progress of Wound: No acute concerns at this time. No fever or feeling of unwell. She states that dressing changes have been done as recommended. Objective Data Objective Data Vital Signs: Vital Signs Temp Pulse Resp BP O2 Del Method 97 F L 78 18 110/55 L Room Air 02/01/25 11:02/01/25 11:02/01/25 11:02/01/25 11:02/01/25 11:00 Oxygen Delivery Method Room Air Weight: 140 lb 0.002 oz Body Mass Index (BMI) 0.0 Charges/Coding Procedures Integumentary 111xxx-113xx: [id number] Maria M subq tissue 20 sq cm/< Physical Exam Const alert and no apparent distress General Appearance: cooperative and comfortable HEENT normocephalic and head/scalp atraumatic Eyes EOMs intact bilaterally Neck full ROM and supple Resp normal respiratory effort Effort and Inspection: able to speak in complete sentences Skin Wounds: wounds noted size Size: See clinical note, bed other Not entirely visualized due to location , margins well approximated, no odor, open and surrounding erythema Neuro oriented x3, CN's II-XII intact bilaterally and moves all extremities Psych mental status grossly normal, thought process normal and cooperative Debridement Note Debridement Note Wound debrided: Sacrum Type of Debridement: Excisional debridement Anesthesia Used: 5% Lidocaine Gel Depth: Down to and including healthy tissue and in the subcutaneous layer Percentage of wound debrided: 100 Instrument Used: 3mm curette Tissue Removed: Devitalized tissue Severity: Fat Layer Exposed Amount of bleeding with debridement: Mild Bleeding Controlled with: Pressure Patient tolerated procedure: Patient tolerated procedure well Post-Debridement Measurements and Additional Note: Post-Debridement Measurements/Treatment - Nurse 1 - General Ulcer Assessment Start: 02/01/25 10:59 Freq: Status: Active Protocol: LAURIE Activity Type Activity Date Activity User E-sign Co-sign Detail Recorded Client Recorded Date Recorded By Document 02/01/25 11:00 FL [id number] 02/01/25 11:19 FL 02/01/25 11:00 - Today's Visit Information Type of service Follow-up Visit (Physician/COMMUNICATIONS TECHNOLOGIST ) Arrival Mode Ambulatory, Walker Accompanied by self Patient Identification Verified (Name & Yes ) Safety Precautions Fall Prevention Height and Weight Body Mass Index (BMI) 0.0 BMI Classification Underweight Vital Signs Temperature (97.8 F-99.1 F) 97 F L Temperature Source Temporal Pulse Rate (60-100) 78 Pulse Location Monitor Respiratory Rate (12-18) 18 Respiratory rate source Observation Oxygen Delivery Method Room Air Blood Pressure (90/60-120/80) 110/55 L Blood Pressure Mean (mm Hg) 73 Source Manual Position Sitting Blood Pressure Location Right Arm History Since Last Visit- (Skip if this is Patient's initial visit) Has dressing in place as prescribed Yes Has compression in place as prescribed Yes Has offloadiing in place as prescribed Yes Experienced any changes in pain level or Yes management Left Footwear Regular Shoe Right Footwear Regular Shoe Pain Scale: 0-10 Numeric Is Patient Pain Free? Yes - Nurse 1 - General Ulcer Measurement Start: 02/01/25 10:59 Freq: Status: Active Protocol: Activity Type Activity Date Activity User E-sign Co-sign Detail Recorded Client Recorded Date Recorded By Document 02/01/25 11:00 FL [id number] 02/01/25 11:19 FL 02/01/25 11:00 Wound Center Nurse 1 #1- SACRAL -Current Size (cm) - Length 0.5 -Current Size (cm) - Width 0.3 -Current Size (cm) - Depth 0.2 -Total Square Cm 0.15 -Exudate Amt Small -Exudate Type Serosanguineous -Wound Margin Distinct, Outline Attached -Granulation Amt Large (67-100%) -Granulation Quality Pale,[place] -Necrosis Amt Small (1-33%) -Necrotic Tissue Type Adherent Slough -Texture (Tsering-wound Skin Appearance) Assessed -Moisture (Tsering-wound Skin Appearance) Assessed -Color (Tsering-wound Skin Appearance) Assessed -Temperature (Tsering-wound Skin No Abnormality Appearance) (Pt Warm) -Tenderness on Palpation (Tsering-wound No Skin Appearance) -Ulcer Cleansing Soap and Water -Foul Odor after Cleansing No -Anesthetic Used 5% Lidocaine Gel Lower Limb Edema Present NA WC - Nurse 2 - General Ulcer CM Notes Start: 02/01/25 10:59 Freq: Status: Active Protocol: Activity Type Activity Date Activity User E-sign Co-sign Detail Recorded Client Recorded Date Recorded By Document 02/01/25 11:31 GM [id number] 02/01/25 11:33 02/01/25 11:31 Wound Center Nurse 2 #1- SACRAL -Time 11:31 -Correct Patient Yes -Correct Side, Site, Position Yes -Correct Procedure Yes -Procedure Performed Yes -Type of Procedure Debridement -Clinical Debridement Subcutaneous -Tissue Removed Subcutaneous -Post Debridement (cm) - Length 0.4 -Post Debridement (cm) - Width 0.2 -Post Debridement (cm) - Depth 0.6 -Total Square (Post) (cm) 0.08 -Area of Debridement (cm) - Length 0.4 -Area of Debridement (cm) - Width 0.2 -Total Square (Area) (cm) 0.08 -Tunneling Yes -Tunneling Position (O'clock) 6 -Tunneling Distance (cm) 0.6 -Undermining/Tunneling No -Circular Undermining No -Wound/Ulcer Outcome Not Healed -Ulcer Cleansing Rinsed/ Irrigated with Saline -Foul Odor after Cleansing No -Bioengineered Tissue No -Bleeding Controlled with Pressure -Treatment Response Procedure Tolerated Well -Offloading No -Debridement - Subq, 1st 20sq cm Yes Pain Scale: 0-10 Numeric Is Patient Pain Free? Yes WC - Nurse 3 - General Ulcer D/C NN Start: 02/01/25 10:59 Freq: Status: Active Protocol: Activity Type Activity Date Activity User E-sign Co-sign Detail Recorded Client Recorded Date Recorded By Document 02/01/25 11:38 DS [id number] 02/01/25 11:50 DS 02/01/25 11:38 Wound Care Center Nurse 3 #1- SACRAL -Ulcer Cleansing Not Cleansed -Primary Dressing Applied Aquacel Extra, NonAdherent Contact Layer -Other Dressing abd pad -Primary Dressing Covered/Secured with Secured with Tape -Aquacel Extra 1 Pain Scale: 0-10 Numeric Is Patient Pain Free? Yes WC - Visit Discharge Discharge Condition Stable Ambulatory Status Ambulatory, Walker Transportation Private Auto Assessment/Plan Assessment/Plan (1) Sacral decubitus ulcer, stage IV: CODE(S): L89.154 - Pressure ulcer of sacral region, stage 4 (2) Debility: CODE(S): R53.81 - Other malaise (3) History of stroke: CODE(S): Z86.73 - Personal history of transient ischemic attack (TIA), and cerebral infarction without residual deficits (4) Decubitus ulcer of sacral area: CODE(S): L89.159 - Pressure ulcer of sacral region, unspecified stage PLAN: Plan Debridement done as documented above, procedure was well-tolerated. Some improvement in depth. No pain or drainage reported by the patient. Continue Aquacel and change daily to twice daily depending on drainage. Cover with foam dressing. Continue offloading, adequate protein intake and other chronic management. Her questions were answered and she was advised to let us know if she had any further questions or concerns. Follow-up 1 week or sooner if needed. This note was generated with [employer] dictation software. It may contain incorrect words, spelling, and punctuation that were not noted in checking the note before signing.
[2025-02-08 09:56] VITALS: BP 114/54; PULSE 84; RESP 18; TEMP 37.2
[2025-02-15 12:02] VITALS: BP 133/65; PULSE 80; RESP 16; TEMP 36.1
--- NOTE | 2025-02-15 13:39 | PN.PCM_ITS ---
History of Present Illness Date of Service: 02/15/25 Chief Complaint: Non healing sacral ulcer History of Wound: Patient is a 74 year female who presents to the wound center for evaluation of an a sacral ulcer and a left ischial ulcer. She was recently hospitalized for UTI/and acute kidney disease. She has a history of HTN, hyperlipidemia, seizure disorder, hypothyroidism, debility. Left ischial ulcer from pressure. The sacral ulcer is in the area of previous ulcer that healed last year. She denies fever, chills, nausea and vomiting. She is accompanied today with her son. She has home health. She sleeps on a couch. She states that she is unsure if a bed would fit into her bedroom due to it being so small. Today denies fever, chills, nausea and vomiting. Progress of Wound: No acute concerns reported at this time. Has a visit scheduled with plastic surgery on Wednesday. Objective Data Objective Data Vital Signs: Vital Signs Temp Pulse Resp BP O2 Del Method 96.9 F L 80 16 133/65 H Room Air 02/15/25 12:02/15/25 12:02 02/15/25 12:02/15/25 12:02/15/25 12:02 Oxygen Delivery Method Room Air Weight: 140 lb 0.002 oz Body Mass Index (BMI) 0.0 Charges/Coding Procedures Integumentary 111xxx-113xx: 90071 Maria M subq tissue 20 sq cm/< Physical Exam Const alert and no apparent distress General Appearance: cooperative and comfortable HEENT normocephalic and head/scalp atraumatic Eyes EOMs intact bilaterally Neck full ROM and supple Resp normal respiratory effort Effort and Inspection: able to speak in complete sentences Skin Wounds: wounds noted size Size: See clinical note, bed other Not entirely visualized due to location , no odor, open and surrounding erythema Neuro oriented x3, CN's II-XII intact bilaterally and moves all extremities Psych mental status grossly normal, thought process normal and cooperative Debridement Note Debridement Note Wound debrided: Sacral Type of Debridement: Excisional debridement Anesthesia Used: 5% Lidocaine Gel Depth: Down to and including healthy tissue and in the subcutaneous layer Percentage of wound debrided: 100 Instrument Used: 3mm curette Tissue Removed: Devitalized tissue Severity: Fat Layer Exposed Amount of bleeding with debridement: Mild Bleeding Controlled with: Pressure Patient tolerated procedure: Patient tolerated procedure well Post-Debridement Measurements and Additional Note: Post-Debridement Measurements/Treatment WC - Nurse 1 - General Ulcer Assessment Start: 02/01/25 10:59 Freq: Status: Active Protocol: LAURIE Activity Type Activity Date Activity User E-sign Co-sign Detail Recorded Client Recorded Date Recorded By Document 02/01/25 11:00 MT [id number] 02/01/25 11:19 MT Document 02/08/25 09:56 DS [id number] 02/08/25 09:57 DS Document 02/15/25 12:02 KW [id number] 02/15/25 12:04 KW 02/01/25 02/08/25 02/15/25 11:00 09:56 12:02 WC - Today's Visit Information Type of service Follow-up Visit Follow-up Visit Follow-up Visit (Physician/STEREOTYPE CASTER (Physician/STEREOTYPE CASTER (Physician/STEREOTYPE CASTER ) ) ) Arrival Mode Ambulatory, Ambulatory, Ambulatory, Walker Walker Walker Accompanied by self Patient Identification Verified (Name & Yes Yes Yes ) Patient Requires Transmission-Based No Precautions Safety Precautions Fall Prevention Fall Prevention Height and Weight Body Mass Index (BMI) 0.0 0.0 0.0 BMI Classification Underweight Underweight Underweight Vital Signs Temperature (97.8 F-99.1 F) 97 F L 98.9 F 96.9 F L Temperature Source Temporal Temporal Temporal Pulse Rate (60-100) 78 84 80 Pulse Location Monitor Monitor Monitor Respiratory Rate (12-18) 18 18 16 Respiratory rate source Observation Observation Observation Oxygen Delivery Method Room Air Room Air Room Air Blood Pressure (90/60-120/80) 110/55 L 114/54 L 133/65 H Blood Pressure Mean (mm Hg) 73 74 87 Source Manual Monitor Monitor Position Sitting Sitting Sitting Blood Pressure Location Right Arm Left Arm Left Arm History Since Last Visit- (Skip if this is Patient's initial visit) Have you changed medications since your No No last visit? Any new allergies or adverse reactions No No Had a fall/change in ADL's that may No No increase risk of falls Signs or symptoms of abuse and/or No No neglect since last visit Have you been in the hospital since your No No last visit? Has dressing in place as prescribed Yes Yes Yes Has compression in place as prescribed Yes N/A N/A Has offloadiing in place as prescribed Yes N/A N/A Experienced any changes in pain level or Yes No No management Left Footwear Regular Shoe Regular Shoe Regular Shoe Right Footwear Regular Shoe Regular Shoe Regular Shoe Pain Scale: 0-10 Numeric Is Patient Pain Free? Yes Yes Yes - Nurse 1 - General Ulcer Measurement Start: 02/01/25 10:59 Freq: Status: Active Protocol: Activity Type Activity Date Activity User E-sign Co-sign Detail Recorded Client Recorded Date Recorded By Document 02/01/25 11:00 MT [id number] 02/01/25 11:19 MT Document 02/08/25 10:02 DS [id number] 02/08/25 10:03 DS Document 02/15/25 12:02 KW [id number] 02/15/25 12:04 KW 02/01/25 02/08/25 02/15/25 11:00 10:02 12:02 Wound Center Nurse 1 #1- SACRAL -Current Size (cm) - Length 0.5 0.6 0.5 -Current Size (cm) - Width 0.3 0.4 0.2 -Current Size (cm) - Depth 0.2 0.5 0.5 -Total Square Cm 0.15 0.24 0.10 -Photo Taken No -Tunneling No -Undermining/Tunneling No -Circular Undermining No -Exudate Amt Small Small -Exudate Type Serosanguineous Serosanguineous -Wound Margin Distinct, Distinct, Distinct, Outline Outline Outline Attached Attached Attached -Granulation Amt Large (67-100%) Large (67-100%) -Granulation Quality Pale,[place] -Necrosis Amt Small (1-33%) -Necrotic Tissue Type Adherent Slough -Texture (Tsering-wound Skin Appearance) Assessed Assessed Assessed -Moisture (Tsering-wound Skin Appearance) Assessed Assessed Assessed -Color (Tsering-wound Skin Appearance) Assessed Assessed Assessed -Temperature (Tsering-wound Skin No Abnormality No Abnormality No Abnormality Appearance) (Pt Warm) (Pt Warm) (Pt Warm) -Tenderness on Palpation (Tsering-wound No No No Skin Appearance) -Ulcer Cleansing Soap and Water Soap and Water Rinsed/ Irrigated with Saline -Foul Odor after Cleansing No No No -Anesthetic Used 5% Lidocaine 5% Lidocaine 5% Lidocaine Gel Gel Gel Lower Limb Edema Present NA [place] - Nurse 2 - General Ulcer CM Notes Start: 02/01/25 10:59 Freq: Status: Active Protocol: Activity Type Activity Date Activity User E-sign Co-sign Detail Recorded Client Recorded Date Recorded By Document 02/01/25 11:31 [id number] 02/01/25 11:33 Document 02/08/25 10:26 [id number] 02/08/25 10:36 Document 02/15/25 12:30 [id number] 02/15/25 12:33 02/01/25 02/08/25 02/15/25 11:31 10:26 12:30 Wound Center Nurse 2 #1- SACRAL -Time 11:31 10:27 12:30 -Correct Patient Yes Yes Yes -Correct Side, Site, Position Yes Yes Yes -Correct Procedure Yes Yes Yes -Procedure Performed Yes Yes Yes -Type of Procedure Debridement Debridement Debridement -Clinical Debridement Subcutaneous Subcutaneous Subcutaneous -Tissue Removed Subcutaneous Subcutaneous Subcutaneous -Post Debridement (cm) - Length 0.4 0.6 0.2 -Post Debridement (cm) - Width 0.2 0.4 0.3 -Post Debridement (cm) - Depth 0.6 0.6 0.5 -Total Square (Post) (cm) 0.08 0.24 0.06 -Area of Debridement (cm) - Length 0.4 0.6 0.2 -Area of Debridement (cm) - Width 0.2 0.4 0.3 -Total Square (Area) (cm) 0.08 0.24 0.06 -Tunneling Yes No No -Tunneling Position (O'clock) 6 -Tunneling Distance (cm) 0.6 -Undermining/Tunneling No No No -Circular Undermining No No No -Wound/Ulcer Outcome Not Healed Not Healed Not Healed -Ulcer Cleansing Rinsed/ Rinsed/ Not Cleansed Irrigated with Irrigated with Saline Saline -Foul Odor after Cleansing No No No -Bioengineered Tissue No No No -Bleeding Controlled with Pressure Pressure Pressure -Treatment Response Procedure Procedure Procedure Tolerated Well Tolerated Well Tolerated Well -Offloading No No No -Debridement - Subq, 1st 20sq cm Yes Yes Yes Pain Scale: 0-10 Numeric Is Patient Pain Free? Yes Yes Yes WC - Nurse 3 - General Ulcer D/C NN Start: 02/01/25 10:59 Freq: Status: Active Protocol: Activity Type Activity Date Activity User E-sign Co-sign Detail Recorded Client Recorded Date Recorded By Document 02/01/25 11:38 DS [id number] 02/01/25 11:50 DS Document 02/08/25 10:54 DS [id number] 02/08/25 10:55 DS Document 02/15/25 12:45 KW [id number] 02/15/25 12:45 KW 02/01/25 02/08/25 02/15/25 11:38 10:54 12:45 Wound Care Center Nurse 3 #1- SACRAL -Ulcer Cleansing Not Cleansed -Primary Dressing Applied Aquacel Extra, Aquacel Extra, Aquacel Extra, NonAdherent NonAdherent NonAdherent Contact Layer Contact Layer Contact Layer -Other Dressing abd pad -Primary Dressing Covered/Secured with Secured with Secured with Dry Gauze, Tape Tape Secured with Tape -Aquacel Extra 1 1 1 Pain Scale: 0-10 Numeric Is Patient Pain Free? Yes Yes Yes WC - Visit Discharge Discharge Condition Stable Stable Stable Ambulatory Status Ambulatory, Ambulatory, Ambulatory, Walker Walker Walker Transportation Private Auto Private Auto Private Auto Medication Reconcilliation completed & No provided to patient/care provider Clinical Summary of Care Provided Yes Assessment/Plan Assessment/Plan (1) Sacral decubitus ulcer, stage IV: CODE(S): L89.154 - Pressure ulcer of sacral region, stage 4 (2) Debility: CODE(S): R53.81 - Other malaise (3) History of stroke: CODE(S): Z86.73 - Personal history of transient ischemic attack (TIA), and cerebral infarction without residual deficits (4) Decubitus ulcer of sacral area: CODE(S): L89.159 - Pressure ulcer of sacral region, unspecified stage PLAN: Plan Debridement done as documented above, procedure was well-tolerated. Some improvement noted again this week. Has an appointment with plastic surgery next Wednesday. Continue Aquacel and change daily to twice daily depending on drainage. Cover with foam dressing. Continue offloading, adequate protein intake and other chronic management. Her questions were answered and she was advised to let us know if she had any further questions or concerns. Follow-up depending on plastic surgery recommendation. This note was generated with [employer] software. It may contain incorrect words, spelling, and punctuation that were not noted in checking the note before signing.
[2025-02-19 14:09] VITALS: BP 127/57; PULSE 94; RESP 18; TEMP 36.3
--- NOTE | 2025-02-20 08:53 | PCM.WC.PN ---
History of Present Illness Date of Service: 02/19/25 Chief Complaint: Non healing sacral ulcer Progress of Wound: The patient is a 74-year-old female presenting with a non-healing sacral wound. The wound initially appeared last year, healed spontaneously, but recurred approximately six months ago. The patient has not accepted a pressure offloading bed, which may contribute to the wound's persistence. The patient has a history of peripheral vascular disease, which affects circulation below the hips and contributes to her limited mobility. She has experienced two strokes, the second occurring after discontinuation of blood thinners for a hysterectomy. 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 The patient has congenital heart disease, although the presence of atrial fibrillation is uncertain. She is currently on blood thinners and has a history of blood clots in the legs. The patient is borderline diabetic, with her last A1c recorded in October. She quit smoking after her first stroke and denies current tobacco use. Attestation: Documentation on this patient encounter was supported using ambient scribe technology/ voice AI technology. The patient consented to recording for the purpose of documenting the encounter. Provider reviewed content of the generated note prior to signature. Objective Data Objective Data - Cardiovascular: Denies chest pain, orthopnea, or syncope. - Neurological: Reports aphasia and circulation issues leading to dyspnea and reduced physical activity. - Endocrine: Denies current symptoms of diabetes, borderline diabetic status noted. - Respiratory: Denies cough, hemoptysis, or wheezing. Vital Signs: Vital Signs Temp Pulse Resp BP O2 Del Method 97.3 F L 94 18 127/57 H Room Air 02/19/25 14:02/19/25 14:02/19/25 14:02/19/25 14:02/15/25 12:02 Oxygen Delivery Method Room Air Weight: 140 lb 0.002 oz Body Mass Index (BMI) 0.0 Lab / Micro Data Attestation: I reviewed the patient's lab results. Lab results narrative: - Labs: Albumin level was 3.8 g/dL in October, indicating good nutritional status. - Imaging: Sacrum coccyx x-ray in October, no significant findings reported. Charges/Coding Visit Charges Office Visits / Consults: 18510 OV L4 New 45min Physical Exam Narrative - Integumentary: Sacral wound, partial thickness, stage 3, approximately 0.5 x 0.5 cm, no drainage observed, does not probe to bone. Debridement Note Debridement Note No debridement was completed: No debridement was completed today Post-Debridement Measurements and Additional Note: Post-Debridement Measurements/Treatment - Nurse 1 - General Ulcer Assessment Start: 02/01/25 10:59 Freq: Status: Active Protocol: [email or web address].[email or web address] Activity Type Activity Date Activity User E-sign Co-sign Detail Recorded Client Recorded Date Recorded By Document 02/01/25 11:00 MT [id number] 02/01/25 11:19 MT Document 02/08/25 09:56 DS [id number] 02/08/25 09:57 DS Document 02/15/25 12:02 KW [id number] 02/15/25 12:04 KW Document 02/19/25 14:09 DL [id number] 02/19/25 14:16 DL 02/01/25 02/08/25 02/15/25 11:00 09:56 12:02 WC - Today's Visit Information Type of service Follow-up Visit Follow-up Visit Follow-up Visit (Physician/ORACLE TECHNICAL ARCHITECT (Physician/ORACLE TECHNICAL ARCHITECT (Physician/ORACLE TECHNICAL ARCHITECT ) ) ) Arrival Mode Ambulatory, Ambulatory, Ambulatory, Walker Walker Walker Transfer Assistance Accompanied by self Patient Identification Verified (Name & Yes Yes Yes ) Patient Requires Transmission-Based No Precautions Safety Precautions Fall Prevention Fall Prevention Height and Weight Body Mass Index (BMI) 0.0 0.0 0.0 BMI Classification Underweight Underweight Underweight Vital Signs Temperature (97.8 F-99.1 F) 97 F L 98.9 F 96.9 F L Temperature Source Temporal Temporal Temporal Pulse Rate (60-100) 78 84 80 Pulse Location Monitor Monitor Monitor Respiratory Rate (12-18) 18 18 16 Respiratory rate source Observation Observation Observation Oxygen Delivery Method Room Air Room Air Room Air Blood Pressure (90/60-120/80) 110/55 L 114/54 L 133/65 H Blood Pressure Mean (mm Hg) 73 74 87 Source Manual Monitor Monitor Position Sitting Sitting Sitting Blood Pressure Location Right Arm Left Arm Left Arm History Since Last Visit- (Skip if this is Patient's initial visit) Have you changed medications since your No No last visit? Any new allergies or adverse reactions No No Had a fall/change in ADL's that may No No increase risk of falls Signs or symptoms of abuse and/or No No neglect since last visit Have you been in the hospital since your No No last visit? Has dressing in place as prescribed Yes Yes Yes Has compression in place as prescribed Yes N/A N/A Has offloadiing in place as prescribed Yes N/A N/A Experienced any changes in pain level or Yes No No management Left Footwear Regular Shoe Regular Shoe Regular Shoe Right Footwear Regular Shoe Regular Shoe Regular Shoe Pain Scale: 0-10 Numeric Is Patient Pain Free? Yes Yes Yes 02/19/25 14:09 WC - Today's Visit Information Type of service Follow-up Visit (Physician/ORACLE TECHNICAL ARCHITECT ) Arrival Mode Walker Transfer Assistance None Accompanied by Patient Identification Verified (Name & Yes ) Patient Requires Transmission-Based No Precautions Safety Precautions Height and Weight Body Mass Index (BMI) 0.0 BMI Classification Underweight Vital Signs Temperature (97.8 F-99.1 F) 97.3 F L Temperature Source Temporal Pulse Rate (60-100) 94 Pulse Location Monitor Respiratory Rate (12-18) 18 Respiratory rate source Observation Oxygen Delivery Method Blood Pressure (90/60-120/80) 127/57 H Blood Pressure Mean (mm Hg) 80 Source Monitor Position Blood Pressure Location History Since Last Visit- (Skip if this is Patient's initial visit) Have you changed medications since your No last visit? Any new allergies or adverse reactions No Had a fall/change in ADL's that may No increase risk of falls Signs or symptoms of abuse and/or No neglect since last visit Have you been in the hospital since your No last visit? Has dressing in place as prescribed Yes Has compression in place as prescribed N/A Has offloadiing in place as prescribed Yes Experienced any changes in pain level or No management Left Footwear Right Footwear Pain Scale: 0-10 Numeric Is Patient Pain Free? Yes - Nurse 1 - General Ulcer Measurement Start: 02/01/25 10:59 Freq: Status: Active Protocol: Activity Type Activity Date Activity User E-sign Co-sign Detail Recorded Client Recorded Date Recorded By Document 02/01/25 11:00 MT [id number] 02/01/25 11:19 MT Document 02/08/25 10:02 DS [id number] 02/08/25 10:03 DS Document 02/15/25 12:02 KW [id number] 02/15/25 12:04 KW Document 02/19/25 14:09 DL [id number] 02/19/25 14:16 DL 02/01/25 02/08/25 02/15/25 11:00 10:02 12:02 Wound Center Nurse 1 #1- SACRAL -Current Size (cm) - Length 0.5 0.6 0.5 -Current Size (cm) - Width 0.3 0.4 0.2 -Current Size (cm) - Depth 0.2 0.5 0.5 -Total Square Cm 0.15 0.24 0.10 -Photo Taken No -Tunneling No -Undermining/Tunneling No -Circular Undermining No -Exudate Amt Small Small -Exudate Type Serosanguineous Serosanguineous -Wound Margin Distinct, Distinct, Distinct, Outline Outline Outline Attached Attached Attached -Granulation Amt Large (67-100%) Large (67-100%) -Granulation Quality Pale,[place] -Necrosis Amt Small (1-33%) -Necrotic Tissue Type Adherent Slough -Structure Exposed -Texture (Tsering-wound Skin Appearance) Assessed Assessed Assessed -Moisture (Tsering-wound Skin Appearance) Assessed Assessed Assessed -Color (Tsering-wound Skin Appearance) Assessed Assessed Assessed -Temperature (Tsering-wound Skin No Abnormality No Abnormality No Abnormality Appearance) (Pt Warm) (Pt Warm) (Pt Warm) -Tenderness on Palpation (Tsering-wound No No No Skin Appearance) -Ulcer Cleansing Soap and Water Soap and Water Rinsed/ Irrigated with Saline -Foul Odor after Cleansing No No No -Anesthetic Used 5% Lidocaine 5% Lidocaine 5% Lidocaine Gel Gel Gel Lower Limb Edema Present NA 02/19/25 14:09 Wound Center Nurse 1 #1- SACRAL -Current Size (cm) - Length 0.2 -Current Size (cm) - Width 0.2 -Current Size (cm) - Depth 0.2 -Total Square Cm 0.04 -Photo Taken Yes -Tunneling -Undermining/Tunneling -Circular Undermining -Exudate Amt None Present -Exudate Type -Wound Margin -Granulation Amt Small (1-33%) -Granulation Quality [place] -Necrosis Amt None Present (0 %) -Necrotic Tissue Type -Structure Exposed N/A -Texture (Tsering-wound Skin Appearance) Scarring -Moisture (Tsering-wound Skin Appearance) No Abnormality -Color (Tsering-wound Skin Appearance) No Abnormality -Temperature (Tsering-wound Skin No Abnormality Appearance) (Pt Warm) -Tenderness on Palpation (Tsering-wound Yes Skin Appearance) -Ulcer Cleansing Soap and Water -Foul Odor after Cleansing -Anesthetic Used 4% Lidocaine Solution Lower Limb Edema Present WC - Nurse 2 - General Ulcer CM Notes Start: 02/01/25 10:59 Freq: Status: Active Protocol: Activity Type Activity Date Activity User E-sign Co-sign Detail Recorded Client Recorded Date Recorded By Document 02/01/25 11:31 [id number] 02/01/25 11:33 GM Document 02/08/25 10:26 GM [id number] 02/08/25 10:36 GM Document 02/15/25 12:30 GM [id number] 02/15/25 12:33 GM Document 02/19/25 14:44 DS [id number] 02/19/25 14:47 DS 02/01/25 02/08/25 02/15/25 11:31 10:26 12:30 Wound Center Nurse 2 #1- SACRAL -Time 11:31 10:27 12:30 -Correct Patient Yes Yes Yes -Correct Side, Site, Position Yes Yes Yes -Correct Procedure Yes Yes Yes -Procedure Performed Yes Yes Yes -Type of Procedure Debridement Debridement Debridement -Clinical Debridement Subcutaneous Subcutaneous Subcutaneous -Tissue Removed Subcutaneous Subcutaneous Subcutaneous -Post Debridement (cm) - Length 0.4 0.6 0.2 -Post Debridement (cm) - Width 0.2 0.4 0.3 -Post Debridement (cm) - Depth 0.6 0.6 0.5 -Total Square (Post) (cm) 0.08 0.24 0.06 -Area of Debridement (cm) - Length 0.4 0.6 0.2 -Area of Debridement (cm) - Width 0.2 0.4 0.3 -Total Square (Area) (cm) 0.08 0.24 0.06 -Tunneling Yes No No -Tunneling Position (O'clock) 6 -Tunneling Distance (cm) 0.6 -Undermining/Tunneling No No No -Circular Undermining No No No -Wound/Ulcer Outcome Not Healed Not Healed Not Healed -Ulcer Cleansing Rinsed/ Rinsed/ Not Cleansed Irrigated with Irrigated with Saline Saline -Foul Odor after Cleansing No No No -Bioengineered Tissue No No No -Bleeding Controlled with Pressure Pressure Pressure -Treatment Response Procedure Procedure Procedure Tolerated Well Tolerated Well Tolerated Well -Offloading No No No -Debridement - Subq, 1st 20sq cm Yes Yes Yes Pain Scale: 0-10 Numeric Is Patient Pain Free? Yes Yes Yes 02/19/25 14:44 Wound Center Nurse 2 #1- SACRAL -Time 14:44 -Correct Patient Yes -Correct Side, Site, Position Yes -Correct Procedure -Procedure Performed No -Type of Procedure -Clinical Debridement -Tissue Removed -Post Debridement (cm) - Length 0.5 -Post Debridement (cm) - Width 0.5 -Post Debridement (cm) - Depth 0.3 -Total Square (Post) (cm) 0.25 -Area of Debridement (cm) - Length 0.5 -Area of Debridement (cm) - Width 0.5 -Total Square (Area) (cm) 0.25 -Tunneling No -Tunneling Position (O'clock) -Tunneling Distance (cm) -Undermining/Tunneling No -Circular Undermining No -Wound/Ulcer Outcome Not Healed -Ulcer Cleansing -Foul Odor after Cleansing -Bioengineered Tissue -Bleeding Controlled with -Treatment Response -Offloading -Debridement - Subq, 1st 20sq cm Pain Scale: 0-10 Numeric Is Patient Pain Free? Yes - Nurse 3 - General Ulcer D/C NN Start: 02/01/25 10:59 Freq: Status: Active Protocol: Activity Type Activity Date Activity User E-sign Co-sign Detail Recorded Client Recorded Date Recorded By Document 02/01/25 11:38 DS [id number] 02/01/25 11:50 DS Document 02/08/25 10:54 DS [id number] 02/08/25 10:55 DS Document 02/15/25 12:45 KW [id number] 02/15/25 12:45 KW Document 02/19/25 14:58 DL [id number] 02/19/25 14:59 DL 02/01/25 02/08/25 02/15/25 11:38 10:54 12:45 Wound Care Center Nurse 3 #1- SACRAL -Ulcer Cleansing Not Cleansed -Primary Dressing Applied Aquacel Extra, Aquacel Extra, Aquacel Extra, NonAdherent NonAdherent NonAdherent Contact Layer Contact Layer Contact Layer -Other Dressing abd pad -Primary Dressing Covered/Secured with Secured with Secured with Dry Gauze, Tape Tape Secured with Tape -Other Covering -Aquacel Extra 1 1 1 Tsering-Wound Care Treatment Response Pain Scale: 0-10 Numeric Is Patient Pain Free? Yes Yes Yes WC - Visit Discharge Discharge Condition Stable Stable Stable Ambulatory Status Ambulatory, Ambulatory, Ambulatory, Walker Walker Walker Transportation Private Auto Private Auto Private Auto Accompanied by Medication Reconcilliation completed & No provided to patient/care provider Clinical Summary of Care Provided Yes 02/19/25 14:58 Wound Care Center Nurse 3 #1- SACRAL -Ulcer Cleansing Rinsed/ Irrigated with Saline -Primary Dressing Applied Aquacel Extra, NonAdherent Contact Layer -Other Dressing -Primary Dressing Covered/Secured with Dry Gauze, Secured with Tape -Other Covering ABD -Aquacel Extra 1 Tsering-Wound Care Barrier Treatment Response Procedure Tolerated Well Pain Scale: 0-10 Numeric Is Patient Pain Free? Yes WC - Visit Discharge Discharge Condition Stable Ambulatory Status Ambulatory, Walker Transportation Private Auto Accompanied by son Medication Reconcilliation completed & provided to patient/care provider Clinical Summary of Care Provided Assessment/Plan Assessment/Plan (1) Sacral decubitus ulcer, stage IV: CODE(S): L89.154 - Pressure ulcer of sacral region, stage 4 (2) Debility: CODE(S): R53.81 - Other malaise (3) History of stroke: CODE(S): Z86.73 - Personal history of transient ischemic attack (TIA), and cerebral infarction without residual deficits (4) Decubitus ulcer of sacral area: CODE(S): L89.159 - Pressure ulcer of sacral region, unspecified stage PLAN: Plan Assessment and Plan The 74-year-old female with a history of peripheral vascular disease and cerebrovascular accidents presents with a non-healing sacral wound. The wound appears to be partial thickness, stage 3, and approximately 0.5 x 0.5 cm, with no drainage observed and does not probe to bone, suggesting no immediate osteomyelitis. The patient's nutritional status appears adequate with an albumin level of 3.8 g/dL, but further evaluation with an MRI could be considered in the next couple of weeks to rule out underlying osteomyelitis if the wound continues to fail to improve. If there is osteomyelitis, would recommend bone biopsy from interventional radiology (no bone exposed at this time so no indication for exposing bone for a biopsy). Then would treat with 6 weeks IV antibiotics/Infectious disease consult. 1. Peripheral Vascular Disease The patient should continue with current management strategies for peripheral vascular disease, including monitoring circulation and considering vascular surgery consultation if symptoms worsen. 2. Cerebrovascular Accident The patient should maintain anticoagulation therapy to prevent further cerebrovascular events and manage aphasia and circulation issues through rehabilitation and supportive care. 3. Sacral Wound Local wound care with Aquasil is recommended, and an MRI should be considered to rule out osteomyelitis if the wound does not improve. 4. Congenital Heart Disease Regular cardiology follow-up is advised to monitor congenital heart disease and assess for any arrhythmias or complications. 5. Borderline Diabetes The patient should continue monitoring blood glucose levels and maintain a diet low in added sugars to manage borderline diabetes. - Continue using Aquacel for wound care and monitor for any changes. - Follow up with Dr. Delcid for ongoing management and evaluation. - Maintain a diet low in added sugars and monitor blood glucose levels. - Attend regular cardiology appointments to monitor heart health.
--- NOTE | 2025-02-20 14:00 | WC ---
PHOTO 02/19/25 SACRAL
== END 2025-02-26 23:59 | disposition home or self-care (01) ==
LOC: WC 14:15
PROVIDERS: PCP Internal Medicine; Referring Provider Internal Medicine; Visit Provider Internal Medicine
DX: L89.153 Pressure ulcer of sacral region, stage 3 (principal); I48.91 Unspecified atrial fibrillation; G40.909 Epilepsy, unspecified, not intractable, without status epilepticus; I10 Essential (primary) hypertension; R73.03 Prediabetes; R53.81 Other malaise; E78.5 Hyperlipidemia, unspecified; I69.320 Aphasia following cerebral infarction; E03.9 Hypothyroidism, unspecified; Z79.82 Long term (current) use of aspirin; Z79.02 Long term (current) use of antithrombotics/antiplatelets; Z79.890 Hormone replacement therapy; Z79.899 Other long term (current) drug therapy; Z87.891 Personal history of nicotine dependence; I73.9 Peripheral vascular disease, unspecified
CPT/HCPCS: 11042; 99213; G0463

== ENCOUNTER 2025-03-11 01:21 | Emergency (ER) | payer MEDICARE, MEDICAID, SELFPAY ==
[2025-03-11 01:21] VITALS: BP 148/71; PULSE 83; RESP 16; TEMP 36.4; O2SAT 95; BMI 24.9
--- NOTE | 2025-03-11 02:19 | CT_ITS ---
PROCEDURE: BRAIN/HEAD WITHOUT CONTRAST 03/11/2025 REASON FOR EXAM: TRAUMA TECHNIQUE: BRAIN/HEAD WITHOUT CONTRAST Coronal and Sagittal reconstruction series were provided. One or more dose reduction techniques were used (e.g., Automated exposure control, adjustment of the mA and/or kV according to patient size, use of iterative reconstruction technique. RADIATION DOSE SUMMARY: Not listed. COMPARISON: 06/17/2024. FINDINGS: Moderate global parenchymal atrophy. Left frontal temporal lobe encephalomalacia. No evidence acute hemorrhage or infarction. No suspicious extra-axial blood or fluid collections. The paranasal sinuses are clear. The mastoid air cells are well aerated. The calvarial vault and skull base are intact. CT/Brain/Head without Contrast IMPRESSION: No acute intracranial abnormality. Chronic and ancillary findings as above. Reading Location: [place] [id number]
--- NOTE | 2025-03-11 02:19 | CT_ITS ---
PROCEDURE: ABDOMEN/PELVIS W IV CONT ONLY 03/11/2025 REASON FOR EXAM: RIGHT LOWER QUADRANT/HIP PAIN TECHNIQUE: ABDOMEN/PELVIS W IV CONT ONLY Coronal and Sagittal reconstruction series were provided. CONTRAST: Isovue 370 VOLUME: New 1 mL One or more dose reduction techniques were used (e.g., Automated exposure control, adjustment of the mA and/or kV according to patient size, use of iterative reconstruction technique. RADIATION DOSE SUMMARY: Not listed COMPARISON: None. FINDINGS: The peripheral soft tissues are unremarkable. The lung bases are clear. Degenerative changes of the spine. Severe atherosclerosis. No suspicious lymphadenopathy. The liver, gallbladder, pancreas, spleen, and kidneys are unremarkable. Indeterminate 2.1 cm right adrenal nodule. Indeterminate left adrenal 13 mm nodule. Urinary bladder is unremarkable. Normal caliber large and small bowel. CT/Abdomen/Pelvis W IV Cont ONLY IMPRESSION: Indeterminate adrenal nodules. Further characterization with nonemergent adren al protocol CT is recommended. Reading Location: [id number]
--- NOTE | 2025-03-11 02:19 | CT_ITS ---
PROCEDURE: SPINE CERVICAL WITHOUT CONTRAS 03/11/2025 REASON FOR EXAM: TRAUMA TECHNIQUE: SPINE CERVICAL WITHOUT CONTRAS Coronal and Sagittal reconstruction series were provided. One or more dose reduction techniques were used (e.g., Automated exposure control, adjustment of the mA and/or kV according to patient size, use of iterative reconstruction technique. RADIATION DOSE SUMMARY: CTDlvol: 19.95 mGy DLP: 184 mGycm COMPARISON: 06/17/2024. FINDINGS: No evidence of acute hemorrhage or infarction. Vertebral body heights are maintained. Normal alignment. Suda-uz-aymhdymu discogenic degenerative changes. CT/Spine Cervical without Contras IMPRESSION: No acute osseous abnormalities. Reading Location: [place] [id number]
--- NOTE | 2025-03-11 02:21 | ED.VIS.FALL ---
HPI HPI - Fall History of Present Illness Chief Complaint: Fall Narrative Narrative: Chief complaint and HPI: Fall. 74-year-old female with past medical history of CVA with right sided weakness, CAD, HTN, HLD on Plavix and aspirin presents for evaluation of mechanical fall. Patient states she was walking to the bathroom when she lost her balance and she fell. States she landed on her right side. Hit her head on the dresser. No LOC. Patient was ambulatory for EMS. She endorses mild headache and right lower quadrant/right hip pain. Triage note states that the patient is having right rib pain however she declines any rib or chest pain to me. Denies any fever, chills, shortness of breath, syncope, URI symptoms, presyncope, abdominal pain, nausea, vomiting, dysuria, diarrhea, numbness/tingling, new neurological deficit. States this was purely mechanical fall. Review of systems: See HPI Medications: As listed on the chart Allergies: As listed on the chart PFSH: Per chart Vital signs: As listed on the chart. Reviewed. Gen: A&O x3, NAD Head: Normocephalic, right sided hematoma Eyes: No sclera icterus, conjunctiva clear, PERRL, EOMI ENT: TMs clear BL, moist mucous membranes, no swelling/lacerations/blood in the mouth or the nares, No nasal septal hematoma, no facial tenderness, face atraumatic Neck: Trachea midline, No JVD, Nontender CV: RRR, no murmurs, no chest wall TTP Resp: Lungs CTA BL, no w/r/c GI: Abd soft, non-distended, mild tenderness to palpation in the right lower quadrant, no r/r/g : No CVA tenderness Musc: Full ROM, no deformity, no spinal TTP, no shady step-offs, mild tenderness palpation of the right hip, DP/PT pulses +2 bilaterally Skin: Warm, dry, intact Neuro: Alert, oriented, grossly intact, sensation intact, GCS 15 Psych: Cooperative, appropriate mood and affect [facility] Medical History (Updated 03/11/25 @ 05:[address] Ermias Matute, ) Perirectal skin irritation Hypothyroid Depression CAD (coronary artery disease) Hyperlipemia Debility Sacral decubitus ulcer, stage III History of stroke HTN (hypertension) Seizure COVID-19 Iron deficiency anemia Heart failure Vertigo Home Medications ?Medication ?Instructions ?Recorded ?Last Taken ?Type atorvastatin 20 mg tablet 20 mg PO QHS cholesterol 08/17/18 06/16/24 History clopidogrel 75 mg tablet 75 mg PO DAILY anti platelet 08/17/18 06/16/24 History levetiracetam 500 mg tablet 500 mg PO BID seizures 08/17/18 06/16/24 History levothyroxine 50 mcg tablet 50 mcg PO DAILY Thyroid 08/17/18 06/16/24 History sertraline 100 mg tablet 150 mg PO QHS depression 08/17/18 06/16/24 History aspirin 81 mg tablet,delayed 81 mg PO DAILY@0800 heart health 08/28/20 06/16/24 History release carvedilol 12.5 mg tablet 12.5 mg PO BID heart 08/28/20 06/16/24 History multivitamin-iron 9 mg-folic acid 1 tab PO DAILY supplement 08/28/20 06/16/24 History 400 mcg-calcium and minerals tablet furosemide 20 mg tablet 20 mg PO DAILY diuretic 03/25/23 06/16/24 History spironolactone 25 mg tablet 25 mg PO DAILY diuretic 03/25/23 06/16/24 History (Aldactone) acetaminophen 300 mg-codeine 30 mg 1 tab PO QHS PRN pain 06/17/24 06/16/24 History tablet albuterol sulfate 90 mcg/actuation 2 inh inhalation Q4H PRN shortness 06/17/24 06/16/24 History aerosol inhaler (Ventolin HFA) of breath or wheezing ferrous gluconate 324 mg (38 mg 324 mg PO DAILY Supplement #1 TAB 06/21/24 Unknown Rx iron) tablet arginine 7 gram-glutam 7 1 packet PO BIDCM 30 days #60 ea 06/30/24 Unknown Rx gram-CaHMB 1.5 vfkt-digbw-cb-min oral pwd pkt (Yariel (with collagen)) furosemide 20 mg tablet 20 mg PO DAILY 30 days #30 tabs 07/03/24 Unknown Rx spironolactone 25 mg tablet 25 mg PO DAILY 30 days #30 tabs 07/03/24 Unknown Rx Allergy/AdvReac Type Severity Reaction Status Date / Time No Known Allergies Allergy Verified 03/11/25 01:27 Family History Other Cancer Kidney disease Surgical History H/O hysterectomy with oophorectomy Social History household members: children housing: house current occupational status: retired Smoking Status: Former smoker alcohol intake: never substance use type: does not use EXAM Physical Exam Const Vital Signs: 03/11/25 01:21 03/11/25 01:21 03/11/25 03:00 Temperature 97.6 F L Temperature Source Oral Pulse Rate 83 85 Respiratory Rate 16 21 H Respiratory Effort Normal Non-Labored Respiratory Depth Normal Respiratory Pattern Normal Blood Pressure 148/71 H 128/54 H Blood Pressure Mean 96 78 Pulse Ox 95 96 Oxygen Delivery Method Room Air Room Air 03/11/25 05:00 03/11/25 05:35 Temperature 98.6 F Temperature Source Pulse Rate 90 90 Respiratory Rate 16 16 Respiratory Effort Respiratory Depth Respiratory Pattern Blood Pressure 110/80 110/80 Blood Pressure Mean 90 90 Pulse Ox 98 98 Oxygen Delivery Method MDM MDM MDM Narrative Medical decision making narrative: 74-year-old female with past medical history of CVA with right sided weakness, CAD, HTN, HLD on Plavix and aspirin presents for evaluation of mechanical fall. Patient states she was walking to the bathroom when she lost her balance and she fell. Landed on her right side. Differential diagnosis includes but is not limited to closed head injury, concussion, skull fracture, intracranial bleed, cervical fracture, intra-abdominal injury, hip fracture. Basic labs were ordered given that patient will require CT abdomen and pelvis and will need to know creatinine function. Otherwise I do not think labs are necessary. CT of the head and C-spine ordered. 2 mg morphine, Zofran, NS bolus ordered. CBC with mild leukocytosis of 12.7 otherwise unremarkable. BMP unremarkable. CT of the brain shows moderate global parenchymal atrophy. A left frontal temporal lobe encephalomalacia. No acute intracranial finding. CT of the cervical spine shows no acute traumatic injury. CT abdomen pelvis shows intermediate adrenal nodes. Recommend nonemergent CT. No acute traumatic injury. On reevaluation, patient's pain is improved. She is updated of all results and the plan for discharge home if she can ambulate. Patient ambulated in the emergency department without difficulty. Patient stable to discharge home. Follow-up with PCP. Return precautions explained. Impression: 1. Mechanical fall 2. Closed injury with scalp hematoma 3. Right hip contusion 4. Right lower quadrant abdominal contusion Lab Data Labs: Laboratory Results - last 24 hr 03/11/25 02:50 WBC 12.7 H RBC 4.49 Hgb 13.9 Hct 42.4 MCV 94.4 MCH 31.0 MCHC 32.8 RDW Std Deviation 45.1 H RDW Coeff of Lev 13.2 Plt Count 257 MPV 9.3 Immature Gran % (Auto) 0.400 Neut % (Auto) 79.8 H Lymph % (Auto) 11.7 L [place] % (Auto) 5.6 Eos % (Auto) 2.0 Baso % (Auto) 0.5 Absolute Neuts (auto) 10.1 H Absolute Lymphs (auto) 1.48 Nucleated RBC % 0 Sodium 141 Potassium 4.6 Chloride 104 Carbon Dioxide 28.0 Anion Gap 9 BUN 11 Creatinine 0.95 Estim Creat Clear Calc 48.51 L Est GFR (MDRD) Non-Af 63 BUN/Creatinine Ratio 11.5 Glucose 154 H Calcium 9.3 Radiography Diagnostic Testing: Clinical Impression(s) from Imaging Studies Abdomen/Pelvis CT 03/11/25 02:19 IMPRESSION: Indeterminate adrenal nodules. Further characterization with nonemergent adrenal protocol CT is recommended. Reading Location: [id number] Brain [address] 03/11/25 02:19 IMPRESSION: No acute intracranial abnormality. Chronic and ancillary findings as above. Reading Location: [id number] 03/11/25 02:19 IMPRESSION: No acute osseous abnormalities. Reading Location: [id number] Discharge Plan Triage Chief Complaint: Fall ED Provider: Ermias Matute Dx/Rx/DC Orders Clinical Impression: Accident due to mechanical fall without injury, Closed head injury, Contusion Instructions: Falls Prevent Use Cane Walker, ED Head Injury (Adult) Prescriptions: No Action atorvastatin 20 MG tablet 20 mg PO QHS levetiracetam 500 MG tablet 500 mg PO BID sertraline 100 MG tablet 150 mg PO QHS clopidogrel 75 MG tablet 75 mg PO DAILY levothyroxine 50 MCG tablet 50 mcg PO DAILY carvedilol 12.5 MG tablet 12.5 mg PO BID aspirin 81 MG tablet 81 mg PO DAILY@0800 [id number]-[id number]-RZ-calcium-mins 1 EACH tablet 1 tab PO DAILY spironolactone [Aldactone] 25 mg tablet 25 mg PO DAILY furosemide 20 mg tablet 20 mg PO DAILY acetaminophen-codeine 300-30 mg tablet 1 tab PO QHS PRN (Reason: pain) albuterol sulfate [Ventolin HFA] 90 mcg/actuation HFA aerosol inhaler 2 inh inhalation Q4H PRN (Reason: shortness of breath or wheezing) ferrous gluconate 324 mg (38 mg iron) tablet 324 mg PO DAILY Qty: 1 0RF Yariel (with collagen) 7-7-1.5 gram Powder In Packet 1 packet PO BIDCM 30 Days Qty: 60 0RF spironolactone 25 mg Tablet 25 mg PO DAILY 30 Days Qty: 30 0RF furosemide 20 mg Tablet 20 mg PO DAILY 30 Days Qty: 30 0RF Primary Care Provider: Lenin Bhatt Referrals: Lenin Bhatt MD [Primary Care Provider] - 3-5 Days Activity Restrictions/Additional Instructions: Follow-up with primary care physician. Return back to ED symptoms change or worsen. Tylenol as needed for pain. Your CT abdomen pelvis showed adrenal nodules. These need further worked up outpatient. Follow-up with your primary care physician. Print Language: Croatian Disposition Disposition: Home, Self Care Discharge Date/Time: 03/11/25 05:36
[2025-03-11] MEDS: 0.9% Normal Saline (1000mL) 1,000 ML 999 ML IV (02:58)
[2025-03-11 02:59] LABS: Hematocrit 42.4 % (37-47); Hemoglobin 13.9 g/dL (12.0-15.0); Immature Granulocytes Count 0.050 X10^3/uL (0.0-0.0); Mean Corp Hgb Conc 32.8 g/dL (32-36); Mean Corpuscular Volume 94.4 fL (81-99); Mean Platelet Vol. 9.3 fl (6.2-12.0); NRBC Flagged by Analyzer 0 % (0-5); Platelet Count 257 K/mm3 (150-450); RBC Distribution Width CV 13.2 % (11.6-14.6); RBC Distribution Width SD 45.1 fl (35.1-43.9); Red Blood Count 4.49 M/mm3 (4.2-5.4); White Blood Count 12.7 K/mm3 (4.4-11.0)
[2025-03-11 03:00] VITALS: BP 128/54; PULSE 85; RESP 21; O2SAT 96
[2025-03-11 03:39] LABS: Anion Gap 9 (5-15); BUN 11 mg/dL (4-19); BUN/Creat Ratio 11.5 RATIO (10-20); Calcium,Total 9.3 mg/dL (7.6-11.0); Carbon Dioxide 28.0 mmol/L (21.0-32.0); Chloride 104 mmol/L (98-108); Estimated Creatinine Clearance 48.51 ml/min (50-250); Glucose 154 mg/dL (70-99); Potassium 4.6 mmol/L (3.3-5.1)
--- OUTSIDE RECORDS SUMMARY | 2025-03-11 04:01 | XMS RPT_ITS | CCD ---
Author Organization [facility] Care Team Providers Care [place] Agent Name Role Phone Bj, Arlette S. P. Unavailable Aramis Cheng Unavailable [phone] Felecia Shultz Unavailable [phone] Lenin Bhatt Unavailable KANAA N, MAURICIO Admitting Unavailable VANCE Barbosa, MAURICIO Attending Unavailable Lenin Bhatt Primary Care Unavailable Bj, Arlette S. P. Unavailable Aramis Cheng Unavailable Felecia Suhltz Unavailable Lenin Bhatt Primary Care Provider Bj, Arlette S. P. Unavailable Bj SIMON Arlette S. P. Unavailable [phone] Aramis Cheng MD Unavailable Felecia Shultz MD Unavailable Lenin Bhatt MD Primary Care Provider Lenin Bhatt MD Primary Care Provider Lenin Bhatt MD Primary Care Provider Lenin Bhatt MD Primary Care Provider Bj SIMON, Arlette S. P. Unavailable [phone] Aramis Cheng MD Unavailable Lexii SIMON Felecia Scales Unavailable Miller SIMON, Lenin Primary Care Provider LENIN BHATT Primary Care Unavailable ARAMIS CHENG Attending Unavailab le Miller, Dr. Phelps Primary Care Provider Miller, Dr. Phelps Referring Provider Angelica, Dr. Toribio Attending Provider Angelica, Dr. Toribio Other Provider Miller, Dr. Phelps Primary Care Provider Miller, Dr. Phelps Referring Provider Angelica, Dr. Toribio Attending Provider Angelica, Dr. Toribio Other Provider Miller SIMON, Lenin Adame Primary Care Provider Yassine AMBULATORY ANALYST.JUSTICE, Moira M Unavailable MILLER, LENIN Adame Primary Care Unavailable MOIRA HEARN Referring Unavailable MILLER, LENIN Adame Primary Care Unavailable MOIRA HEARN Attending Unavailable LENIN BHATT Referring Unavailable MILLER, LENIN Adame Primary Care Unavailable LENIN BHATT Attending Unavailable MILLER, LENIN Adame Primary Care Unavailable MILLER, LENIN Adame Primary Care Unavailable DEEPTI AUGUSTE Attending Unavailable BHATT, LENIN Adame Primary Care Unavailable BHATT, LENIN Adame Referring Unavailable BHATT, LENIN Adame Primary Care Unavailable BHATT, LENIN Adame Primary Care Unavailable ZACHARIAH GONZALES JR Referring Unavaila ble BHATT, LENIN Adame Primary Care Unavailable BHATT, LENIN Adame Referring Unavailable BHATT, LENIN Adame Primary Care Unavailable MOIRA HEARN Attending Unavailable MILLER, LENIN Adame Attending Unavailable MILLER, LENIN Adame Primary Care Unavailable MILLER, LENIN Adame Referring Unavailable BHATT, LENIN Adame Primary Care Unavailable BHATT, LUIS ALBERTO Attending Unavailable SELF Referring Unavailable BHATT, LUI SALBERTO Primary Care Unavailable Miller SIMON, Dr. Phelps Primary Care Provider Miller SIMON, Dr. Phelps Referring Provider Mauro BOND TRADER-C, Bia E Attending Provider Mauro BOND TRADER-C, Bia E Other Provider Mauro BOND TRADER-C, Bia E Referring Provider Angelica SIMON, Dr. Toribio Attending Provider Angelica SIMON, Dr. Toribio Other Provider Miller SIMON, Dr. Phelps Primary Care Provider Miller SIMON, Dr. Phelps Referring Provider Miller SIMON, Dr. Phelps Primary Care Provider Miller SIMON, Dr. Phelps Referring Provider Angelica SIMON, Dr. Toribio Attending Provider [phone] Angelica SIMON, Dr. Toribio Other Provider [phone] Danilo SIMON, Dr. Del Toro Attending Provider Mauro BOND TRADER, Bia E Attending Unavailabl e BhattLenin dunbar Referring Unavailable BhattLenin dunbar Primary Care Unavailable BhattLenin dunbar Referring Unavailable Oleghe, Efewongbe Attending Unavailable Bhatt, Victor Primary Care Unavailable Oleghe, Efewongbe Attending Unavailable Bhatt, Lenin Primary Care Unavailable BhattLenin Referring Unavailable Mauro BOND TRADER, Bia E Attending Unavailabl e Bhatt, Lenin Primary Care Unavailable Mauro BOND TRADER, Bia E Consulting Unavailabl e BhattLenin Referring Unavailable Oleghe, Efewongbe Consulting Unavailable Oleghe, Efewongbe Attending Unavailable Bhatt, Lenin Referring Unavailable Bhatt, Lenin Primary Care Unavailable Oleghe, Efewongbe Consulting Unavailable Oleghe, Efewongbe Attending Unavailable BhattLenin dunbar Referring Unavailable Bhatt, Lnein Primary Care Unavailable Alverto Carrasco Attending Unavailable Oleghe, Efewongbe Consulting Unavailable Lenin Bhatt Referring Unavailable Miller, Lenin Primary Care Unavailable Oleghe, Efewongbe Consulting Unavailable Oleghe, Efewongbe Attending Unavailable Miller, Lenin Primary Care Unavailable Lenin Bhatt Referring Unavailable Eric Bay Attending Unavailable Eric Bay Admitting Unavailable Miller, Lenin Primary Care Unavailable Eric Bay Attending Unavailable Eric Bay Admitting Unavailable Eric Bay Consulting Unavailable Miller, Lenin Primary Care Unavailable Oleghe, Efewongbe Attending Unavailable Oleghe, Efewongbe Consulting Unavailable Miller, Lenin Primary Care Unavailable Lenin Bhatt Referring Unavailable Mauro BOND TRADER, Bia E Attending Unavailabl e Lenin Bhatt Primary Care Unavailable Mauro BOND TRADER, Bia E Referring Unavailabl e Mauro BOND TRADER, Bia E Consulting Unavailabl e Angelito, Kevon Chi Admitting Unavailable Angelito, Kevon Chi Attending Unavailable Angelito, Kevon Chi Referring Unavailable Miller, Lenin Primary Care Unavailable Mauro BOND TRADER, Bai E Attending Unavailabl e Lenin Bhatt Primary Care Unavailable Lenin Bhatt Referring Unavailable Oleghe, Efewongbe Attending Unavailable Miller, Lenin Primary Care Unavailable Miller, Lenin Referring Unavailable Oleghe, Efewongbe Attending Unavailable Lenin Bhatt Referring Unavailable Miller, Lenin Primary Care Unavailable Lenin Bhatt Referring Unavailable Oleghe, Efewongbe Attending Unavailable Miller, Lenin Primary Care Unavailable Oleghe, Efewongbe Attending Unavailable Oleghe, Efewongbe Consulting Unavailable Miller, Lenin Primary Care Unavailable Lenin Bhatt Referring Unavailable Mauro BOND TRADER, Bia E Referring Unavailabl e Lenin Bhatt Primary Care Unavailable Mauro BOND TRADER, Bia E Consulting Unavailabl e Mauro BOND TRADER, Bia E Attending Unavailabl e Maruo BOND TRADER, Bia E Referring Unavailabl e Lenin Bhatt Primary Care Unavailable Mauro BOND TRADER, Bia E Consulting Unavailabl e Mauro BOND TRADER, Bia E Attending Unavailabl e Lenin Bhatt Referring Unavailable Oleghe, Efewongbe Attending Unavailable Olerosibele, Efewongbe Consulting Unavailable Lenin Bhatt Primary Care Unavailable Oleghe, Efewongbe Attending Unavailable Oleghe, Efewongbe Consulting Unavailable Lenin Bhatt Primary Care Unavailable Miller, Lenin Referring Unavailable Oleghe, Efewongbe Attending Unavailable Manjindere, Efewongbe Consulting Unavailable Lenin Bhatt Primary Care Unavailable Lenin Bhatt Referring Unavailable Warren, Len Attending Unavailable Warren, Len Referring Unavailable Miller, Leinn Primary Care Unavailable Medications Current Medications Medication Drug Class(es) Dates Sig (Normalized) Sig (Original) acetaminophen 300 mg / codeine phosphate 30 mg oral tablet (20 sources) Opioid Agonist Start: 10-24-2024 End: 11-23-2024 take 1 tablet by mouth every 30 days at bedtime as needed for pain acetaminophen-code ine (TYLENOL-COD #3) 300-30 mg per tablet Indications: Pain in both lower extremities Take 1 tablet by mouth at bedtime as needed for pain for up to 30 days. 30 tablet 10/24/2024 11/23/2024 Active Start: 06-17-2024 Acetaminophen- Codeine 300-30 mg tablet Active 1 {tbl} PO AT BEDTIME as needed for pain June 17, 2024 12:00am Start: 06-08-2024 End: 07-08-2024 take 1 tablet by mouth every 30 days at bedtime as needed for pain acetaminophen-codeine (TYLENOL-COD #3) 300-30 mg per tablet Indications: Pain in both lower extremities Take 1 tablet by mouth at bedtime as needed for pain for up to 30 days. 30 tablet 06/08/2024 Active Start: 03-14-2024 End: 06-06-2024 take 1 tablet by mouth every 30 days at bedtime as needed for pain acetaminophen-codeine (TYLENOL-COD #3) 300-30 mg per tablet Indications: Pain in both lower extremities Take 1 tablet by mouth at bedtime as needed for pain for up to 30 days. 30 tablet 04/19/2024 06/06/2024 Discontinued Start: 01-10-2024 End: 02-09-2024 take 1 tablet [...] th daily at bedtime for 30 days. [id number] 200 actuat albuterol 0.09 mg/actuat metered dose inhaler (20 sources) beta2-Adrenergic Agonist Start: 03-25-2023 End: 06-17-2024 Albuterol Sulfate (Ventolin Hfa) 90 mcg/actuation HFA aerosol inhaler Active 2 NMA INHALATION Q4H as needed for shortness of breath or wheezing June 17, 2024 12:00am Start: 03-25-2023 Albuterol Sulf ate (Proair Hfa) 90 mcg/actuation HFA aerosol inhaler Active 2 INH INHALATION Q4H March 24, 2023 11:00pm Start: 03-25-2023 End: 06-30-2024 take 1.25 mg by inhalation every six hours as needed for wheezing Albuterol Sulfate 2.5 mg /3 mL (0.083 %) solution for nebulization Discontinued 1.25 mg INHALATION EVERY 6 HOURS as needed for shortness of breath or wheezing March 25, 2023 12:00am June 30, 2024 2:01pm Start: 07-15-2021 End: 12-09-2023 albuterol (PROVENTIL) 2.5 mg /3 mL (0.083 %) nebulizer solution Indications: Chronic bronchitis, unspecified chronic bronchitis type (HCC) Use 3 mL via nebulizer every 6 hours as needed for wheezing/shortness of breath. Use over 5-15minutes. 90 mL 1 12/09/2023 Active Start: 07-15-2021 End: 07-04-2024 take 2 puff(s) by inhalation every four hours as needed for wheezing albuterol HFA (VENTOLIN HFA) 90 mcg/actuation inhaler Indications: Chronic bronchitis, unspecified chronic bronchitis type (HCC) Inhale 2 Puffs as instructed every 4 hours as needed for wheezing/shortness of breath. 1 Each 1 07/04/2024 Active Comment on above: Inhale 2 Puffs as in structed every 4 hours as needed for wheezing/shortness of breath. Use 3 mL via nebuliz er every 6 hours as needed for wheezing/shortness of breath. Use over 5-15minutes. amoxicillin 875 mg / clavulanate 125 mg oral tablet (3 sources) Penicillin-class Antibacterial Start: 08-29-20 End: 09-05-19 take 1 tablet by mouth twice daily amoxicillin-clavu lanate potassium (AUGMENTIN) 875-125 mg per tablet Take 1 tablet by mouth two times a day for 7 days. 14 tablet 08/29/2024 09/05/2024 Active Pvrfr-Wzuq-Rjnso-Col lag-Mv-Min (Yariel (With Collagen)) 7-7-1.5 gram Powder In Packet (3 sources) Start: 06-30-20 Ofpkx-Wglz-Gpqgn- Zzxhwt-Oy-Igt (Yariel (With Collagen)) 7-7-1.5 gram Powder In Packet Active 1 NMA PO TWICE DAILY WITH MEALS 60 30 June 30, 2024 12:00am Start: 06-30-2024 Ibsgp-Ppxc-Qvc pw-Tivypi-Ud-Min (Yariel (With Collagen)) 7-7-1.5 gram Powder In Packet Active 1 NMA PO TWICE DAILY WITH MEALS 60 June 30, 2024 12:00am aspirin 81 mg delayed release oral tablet (20 sources) Nonsteroidal Anti-inflammatory Drug Start: 12-14-2015 End: 05-30-2024 take 1 tablet by mouth once daily Aspirin 81 MG tablet Active 81 mg PO DAILY@0800 August 28, 2020 1:00am heart health Comment on above: Take 1 tablet by sal th once daily. atorvastatin 20 mg oral tablet (20 sources) HMG-CoA Reductase Inhibitor Start: 01-02-2015 End: 07-15-2024 take 1 tablet by mouth at bedtime Atorvastatin 20 MG tablet Active 20 mg PO AT BEDTIME August 17, 2018 1:00am cholesterol Comment on above: Take 1 tablet by sal th once daily. carvedilol 12.5 mg oral tablet (20 sources) alpha-Adrenergic Anna Marie, beta-Adrenergic Anna Marie Start: 08-28-2020 End: 05-30-2024 take 1 tablet by mouth twice daily Carvedilol 12.5 MG tablet Active 12.5 mg PO TWICE A DAY August 28, 2020 1:00am heart Start: 01-27-2017 carvedilol (CO REG) 6.25 MG tablet Take 2 (two) tablets (12.5 mg total) by mouth . 0 01/27/2017 Active Start: 01-27-2017 carvedilol (CO REG) 6.25 MG tablet Take 6.25 mg by mouth. 01/27/2017 Active Comment on above: Take 1 tablet by sal th twice daily with meals. cephalexin 500 mg oral capsule (18 sources) Cephalosporin Antibacterial Start: 2 End: 2 take 1 capsule by mouth three times daily cephALEXin (KEFLEX) 500 mg capsule Take 1 capsule by mouth three times daily for 5 days. 15 capsule 0 04/03/2022 04/08/2022 Active Start: 03-11-2021 End: 03-25-2023 take 1 capsule by mouth every six hours Cephalexin 500 MG capsule Discontinued 500 mg PO EVERY 6 HOURS 28 0 March 11, 2021 12:00am March 25, 2023 9:33am Start: 08-17-2018 End: 08-21-2018 take 1 capsule by mouth three times daily Cephalexin (Keflex) 500 MG capsule Discontinued 500 mg PO THREE TIMES A DAY August 17, 2018 1:00am August 21, 2018 11:42am ATB Comment on above: Take 1 capsule by mo [facility] three times daily for 5 days. citalopram 20 mg oral tablet (7 sources) Serotonin Reuptake Inhibitor Start: 5 take 1 tablet by mouth once daily citalopram (CELEXA) 20 MG tablet Take 1 (one) tablet (20 mg total) by mouth daily . 1 01/04/2015 Active clopidogrel 75 mg oral tablet (20 sources) [id number] Platelet Inhibitor Start: 5 End: 5 take 1 tablet by mouth once daily Clopidogrel 75 MG tablet Active 75 mg PO DAILY August 17, 2018 1:00am anti platelet Comment on above: Take 1 tablet by sal th once daily. ferrous gluconate 324 mg oral tablet (3 sources) Start: 4 take 1 tablet by mouth once daily Ferrous Gluconate 324 mg (38 mg iron) tablet Active 324 mg PO DAILY June 21, 2024 12:00am Supplement furosemide 20 mg oral tablet (20 sources) Loop Diuretic Start: 6 End: 5 take 1 tablet by mouth once daily Furosemide 20 mg Tablet Active 20 mg PO DAILY July 03, 2024 1:00am Comment on above: Take 1 tablet by sal th as needed. Take 1 tablet by sal th once daily. As needed take 1 tablet by sal th once daily if needed 12 hr guaiFENesin 600 mg extended release oral tablet (3 sources) Start: 4 End: 5 take 1 tablet by mouth every twelve hours guaiFENesin (MUCINEX) 600 mg 12 hr tablet Take 1-2 tablets by mouth two times a day for 7 days. 28 tablet 08/29/2024 09/05/2024 Active levETIRAcetam 250 mg oral tablet (20 sources) Anti-epileptic Agent Start: 5 take 1 tablet by mouth twice daily levETIRAcetam (KEPPRA) 250 mg tablet Indications: Seizure (HCC) Take 1 tablet by mouth two times a day. 180 tablet 1 11/20/2024 Active Start: 03-20-2024 End: 11-20-2024 take 0.5 tablet by mouth twice daily levETIRAcetam (KEPPRA) 500 mg tablet Indications: Seizure (HCC) Take 0.5 tablets by mouth two times a day. 03/20/2024 11/20/2024 Discontinued (Dosage adjustment) Start: 11-21-2015 End: 03-20-2024 take 1 tablet by mouth twice daily Levetiracetam 500 MG tablet Active 500 mg PO TWICE A DAY August 17, 2018 1:00am seizures Comment on above: Take 1 tablet by sal th twice daily. Take 1 tablet by sal th two times a day. lisinopril 2.5 mg oral tablet (20 sources) Angiotensin Converting Enzyme Inhibitor Start: 4 End: 4 take 1 tablet by mouth once daily lisinopril 2.5 mg tablet Take 1 tablet by mouth once daily. 0 03/14/2024 03/20/2024 Discontinued (Clinical Decision) Start: 12-12-2014 End: 06-30-2024 take 1 tablet by mouth once at bedtime Lisinopril 5 MG tablet Discontinued 5 mg PO AT BEDTIME 0 0 August 31, 2020 2:03pm June 30, 2024 2:02pm bp Hold for 5 more days Comment on above: Take 1 tablet by sal th once daily. Snfuzulm-Ycia-Kk-Ca lcium-Mins (5 sources) Start: 08-28-2020 take 1 tablet by mouth once daily Ibpthyml-Yirh-Ee-Ca lcium-Mins Active 1 TABLET PO DAILY August 28, 2020 12:00am Start: 08-28-2020 take 1 tablet by sal th once daily Nzbzzrfa-Ibik-Ro-Calcium-Mins Active 1 T ABLET PO DAILY August 28, 2020 1:00am Lvvifznr-Dlvw-Aq-Calcium-Min s 1 EACH tablet (3 sources) Start: 08-28-2020 take 1 tablet by mouth once daily Exciltbe-Hsho-Fh-Calcium-Mins 1 EACH tablet Active 1 {tbl} PO DAILY August 28, 2020 1:00am supplement Start: 08-28-2020 take 1 tablet by sal th once daily Tathswxk-Ojyy-Iu-Calcium-Mins 1 EACH tab let Active 1 {tbl} PO DAILY August 28, 2020 1:00am multivitamin (DAILY MULTI-VITAMIN) per tablet (5 sources) take 1 tablet by sal th once daily multivitamin (DAILY MULTI-VITAMIN) per tablet [...] daily. Active multivitamin tablet (20 sources) Start: 10-02-2024 take 1 tablet by mouth once daily [...] once daily. Multivitamin daily - chelle tab. [facility] # [id number] 90 tablet 3 06/03/2022 08/03/2022 Discontinued Start: 06-03-2022 take 1 tablet by sal th once daily multivitamin tablet Take 1 tablet by mouth once daily. Multivitamin daily - chelle tab. [facility] # [id number] 90 tablet 3 06/03/2022 Active Start: 07-14-2021 End: 06-02-2022 take 1 tablet by mouth once daily multivitamin tablet Take 1 tablet by mouth once daily. Multivitamin daily - chelle tab. [facility] # [id number] 90 tablet 3 07/14/2021 06/02/2022 Discontinued Start: 07-14-2021 take 1 tablet by sal th once daily multivitamin tablet Take 1 tablet by mouth once daily. Multivitamin daily - chelle tab. [facility] # [id number] 90 tablet 3 07/14/2021 Active Comment on above: Take 1 tablet by sal once daily. Multivitamin daily - chelle tab. [facility] # [id number] Take 1 tablet by sal once daily. nitrofurantoin, macrocrystals 25 mg / [...] on above: Take 1 capsule by mo [facility] twice daily with meals for 7 days. nystatin 100 unt/mg topical powder (20 sources) Polyene Antifungal Start: End: nystatin (MYCOSTATIN) powder Indications: Erythema intertrigo Apply 1 application to affected area two times a day. 60 g 11/20/2024 Active Comment on above: Apply 1 application to affected area two times a day. predniSONE 20 mg oral tablet (3 sources) Start: End: take 2 tablets by mouth once daily predniSONE (DELTASONE) 20 mg tablet Take 2 tablets by mouth once daily for 5 days. 10 tablet 08/29/2024 09/03/2024 Active sertraline 100 mg oral tablet (20 sources) Serotonin Reuptake Inhibitor Start: End: take 2 tablets by mouth once daily sertraline (ZOLOFT) 100 mg tablet Indications: major depressive disorder Take 2 tablets by mouth once daily. 180 tablet 1 09/29/2024 03/28/2025 Active Start: 05-19-2023 End: 05-24-2024 take 1.5 tablets by mouth once daily sertraline (ZOLOFT) 100 mg tablet Take 1.5 tablets by mouth once daily. 135 tablet 3 05/19/2023 05/24/2024 Discontinued Start: 01-05-2023 End: 05-19-2023 sertraline (ZOLOFT) 100 [...] 45 tablet 5 04/07/2022 10/27/2022 Discontinued Start: 08-17-2018 Sertraline 100 MG tablet Active 150 mg PO AT BEDTIME August 17, 2018 1:00am depression Start: 08-17-2018 take 150 mg by mouth at bedtim e Sertraline Active 150 MG PO AT BEDTIME August 17, 2018 12:00am Start: 01-27-2017 sertraline (ZO LOFT) 50 MG [...] (20 sources) Aldosterone Antagonist Start: 02-24-20 End: 07-30-20 take 1 tablet by mouth once daily Spironolactone 25 mg Tablet Active 25 mg PO DAILY July 03, 2024 1:00am Start: 05-26-2021 End: 08-03-2022 take 1 tablet by mouth once daily spironolactone (ALDACTONE) 25 mg tablet Indications: Chronic systolic (congestive) heart failure (HCC) Take 1 tablet by mouth once daily. 90 tablet 1 08/03/2022 Active Comment on above: Take 1 tablet by sal th daily. Take 1 tablet by sal th once daily. levothyroxine sodium 0.05 mg oral tablet (20 sources) l-Thyroxine Start: End: take 1 tablet by mouth once daily Levothyroxine 50 MCG tablet Active 50 ug PO DAILY August 17, 2018 1:00am Thyroid Comment on above: Take 1 tablet by sal th once daily. on an empty stomach 1/2 hour before meal. Completed/Discontinued Medications Medication Drug Class(es) Dates Sig (Normalized) Sig (Original) acetaminophen 325 mg oral tablet (3 sources) Start: 06-12-2024 End: 06-17-2024 take 2 tablets by mouth every six hours as needed for pain Acetaminophen (Tylenol) 325 mg tablet Discontinued 650 mg PO EVERY 6 HOURS as needed for pain 240 June 12, 2024 12:00am June 17, 2024 1:03pm ciprofloxacin 500 mg oral tablet (3 sources) Quinolone Antimicrobial Start: 06-12-2024 End: 06-21-2024 take 1 tablet by mouth twice daily Ciprofloxacin Hcl 500 mg tablet Discontinued 500 mg PO TWICE A DAY 14 June 12, 2024 12:00am June 21, 2024 10:58am COMPOUNDED PRESCRIPTION (20 sources) Start: 01-04-2019 End: [...] oks on side of tub DX CVA doxycycline monohydrate 100 mg oral capsule (4 sources) Tetracycline-class Drug Start: 3 End: 4 take 1 capsule by mouth twice daily Doxycycline Monohydrate 100 mg capsule Discontinued 100 mg PO TWICE A DAY 14 0 July 06, 2023 1:00am June 17, 2024 10:25am ibuprofen 400 mg oral tablet (10 sources) Nonsteroidal Anti-inflammatory Drug Start: 4 End: 4 take 1 tablet by mouth every six hours as needed for pain Ibuprofen 400 mg tablet Discontinued 400 mg PO EVERY 6 HOURS as needed for pain 120 30 0 June 12, 2024 12:00am June 30, 2024 2:01pm Start: 01-27-2017 ibuprofen (ADV IL,MOTRIN) 600 MG tablet Take 1 (one) tablet (600 mg total) by mouth . 0 01/27/2017 Active metroNIDAZOLE 500 mg oral tablet (4 sources) Nitroimidazole Antimicrobial Start: 07-06-2023 End: 06-17-2024 take 1 tablet by mouth three times daily Metronidazole 500 mg tablet Discontinued 500 mg PO THREE TIMES A DAY 21 0 July 06, 2023 1:00am June 17, 2024 10:26am oxyCODONE hydrochloride 5 mg oral tablet (3 sources) Opioid Agonist Start: 06-12-2024 End: 06-21-2024 take 1 tablet by mouth every six hours as needed for pain Oxycodone 5 mg tablet Discontinued 5 mg PO EVERY 6 HOURS as needed for pain 16 4 0 June 12, 2024 June 21, 2024 10:58am Contusion of hip Contusion of unspecified hip, initial encounter perflutren lipid microspheres 1.3 mL in NaCl (PF) 0.9% 10 mL injection (DEFINITY) (20 sources) Start: 04-16-2021 End: 07-16-2022 perflutren lipid microspheres 1.3 mL in NaCl (PF) 0.9% 10 mL injection (DEFINITY) Start: 04-16-2021 End: 07-16-2022 perflutren lipid microsphere s 1.3 mL in NaCl (PF) 0.9% 10 mL injection (DEFINITY) 125 ml sodium chloride 9 mg/ml prefilled syringe (20 sources) Start: 04-16-2021 End: 07-16-2022 sodium chloride 0.9 % (flush) 10 mL (BD POSIFLUSH) trospium chloride 20 mg oral tablet (14 sources) Cholinergic Muscarinic Antagonist Start: 05-24-2024 End: 08-22-2024 take 1 tablet by mouth twice daily trospium (SANCTURA) 20 mg tablet Indications: Urinary incontinence, unspecified type TAKE 1 TABLET BY MOUTH TWICE A DAY 60 tablet 5 06/13/2024 07/07/2024 Discontinued (Not on Formulary) Problems Active Problems Problem Classification Problem Date Documented Date Episodic/Chronic Acute and unspecified renal failure (12 sources) Injury of kidney; Translations: [Acute kidney failure, unspecified] Onset: 06-21-2024 08-28-2020 Episodic Acute cerebrovascular disease (3 sources) Cerebrovascular accident; Translations: [Cerebral infarction, unspecified] 06-21-2024 Chronic Anxiety disorders (20 sources) Mixed anxiety and depressive disorder; Translations: [Other specified anxiety disorders] Onset: 07-20-2016 07-20-2016 Chronic Chronic obstructive pulmonary disease and bronchiectasis (20 sources) Chronic bronchitis; Translations: [Unspecified chronic bronchitis] Onset: 06-10-2023 06-10-2023 Chronic Chronic ulcer of skin (20 sources) Pressure ulcer of sacral region, stage 2; Translations: [Pressure ulcer, lower back] Onset: 03-04-2023 Resolved: 11-20-2024 Chronic Conditions associated with dizziness or vertigo (20 sources) Vertigo; Translations: [Dizziness and giddiness] Onset: 08-31-2018 Resolved: 11-14-2018 03-11-2021 Episodic Congestive heart failure; nonhypertensive (20 sources) Congestive heart failure; Translations: [Heart failure, unspecified] Onset: 12-10-2015 Resolved: 09-27-2020 12-12-2015 Chronic Coronary atherosclerosis and other heart disease (20 sources) Ischemic myocardial dysfunction; Translations: [Ischemic cardiomyopathy] Onset: 02-08-2020 02-08-2020 Chronic Deficiency and other anemia (20 sources) Iron deficiency anemia; Translations: [Iron deficiency anemia, unspecified] Onset: 08-31-2018 Resolved: 03-05-2023 08-31-2018 Episodic Deficiency and other anemia (2 sources) Anemia; Translations: [Anemia, unspecified] Episodic Diseases of white blood cells (20 sources) Leukopenia; Translations: [Decreased white blood cell count, unspecified] Onset: 04-15-2023 Resolved: 12-09-2023 08-28-2020 Chronic Disorders of lipid metabolism (20 sources) Hyperlipidemia; Translations: [Pure hypercholesterolemia] Onset: 12-02-2015 12-02-2015 Chronic E Codes: Fall (3 sources) Fall; Translations: [Unspecified fall, initial encounter] 06-17-2024 Episodic Epilepsy; convulsions (20 sources) Localization-related epilepsy; 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, not intractable, without status epilepticus] Onset: 06-06-2015 Resolved: 12-09-2023 12-02-2015 Chronic Epilepsy; convulsions (20 sources) Seizure; Translations: [Unspecified convulsions] Onset: 08-26-2021 Resolved: 11-20-2024 03-11-2021 Episodic Essential hypertension (20 sources) Hypertensive disorder; Translations: [Essential hypertension] Onset: 12-02-2015 12-02-2015 Chronic Genitourinary symptoms and ill-defined conditions (20 sources) Mixed urinary incontinence; Translations: [Mixed incontinence] Onset: 04-10-2015 Resolved: 02-03-2017 02-03-2017 Chronic Late effects of cerebrovascular disease (20 sources) 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; Translations: [Aphasia following unspecified cerebrovascular disease] Onset: 07-20-2016 07-20-2016 Chronic Malaise and fatigue (20 sources) Asthenia; Translations: [Other malaise] Onset: 07-07-2024 03-25-2023 Episodic Miscellaneous mental health disorders (2 sources) Abnormal finding on evaluation procedure; Translations: [Mental disorder, not otherwise specified] Onset: 03-14-2024 03-14-2024 Chronic Mood disorders (20 sources) Moderate major depression, single episode; Translations: [Major depressive disorder, single episode, moderate] Onset: 07-15-2021 07-15-2021 Chronic Mycoses (2 sources) Onychomycosis due to dermatophyte ; Translations: [Tinea unguium] Episodic Open wounds of extremities (20 sources) Open wound of hand; Translations: [Laceration without foreign body of left hand, initial encounter] Onset: 06-10-2023 Resolved: 12-09-2023 08-19-2020 Episodic Other circulatory disease (20 sources) History of cerebrovascular accident; Translations: [Cardiovascular stress test abnormal] Onset: 06-06-2015 Resolved: 11-20-2024 12-02-2015 Episodic Comment on above: with aphasia Other circulatory disease (18 sources) Personal history of transient ischemic attack (TIA), and cerebral infarction without residual deficits; Translations: [Personal history of transient ischemic attack (TIA), and cerebral infarction without residual deficits] Onset: 12-02-2015 Episodic Other connective tissue disease (2 sources) Pain of toes of bilateral feet; Translations: [Pain in right toe(s)] Episodic Other connective tissue disease (20 sources) Recurrent falls ; Translations: [Repeated falls] Onset: 04-15-2023 03-11-2021 Episodic Other connective tissue disease (6 sources) Pain in bilateral legs; Translations: [Pain [...] Translations: [Impacted cerumen, bilateral] 06-10-2023 Episodic Other inflammatory condition of skin (1 source) Intertrigo; Translations: [Erythema intertrigo] 11-20-2024 Episodic Other inflammatory condition of skin (1 source) Erythema intertrigo; Translations: [Erythema intertrigo] Onset: 11-20-2024 Episodic Other injuries and conditions due to external causes (20 sources) Closed injury of head; Translations: [Unspecified injury of head, initial encounter] Onset: 04-15-2023 Resolved: 12-09-2023 03-11-2021 Episodic Other lower respiratory disease (2 sources) Cough; Translations: [Acute cough] 08-29-2024 Episodic Other lower respiratory disease (2 sources) Dyspnea; Translations: [Shortness of breath] 08-29-2024 Episodic Other lower respiratory disease (1 source) Shortness of breath; Translations: [Shortness of breath] Onset: 08-29-2024 Episodic Other nervous system disorders (1 source) Walking disability; Translations: [Difficulty in walking, not elsewhere classified] 05-24-2024 Chronic Other nervous system disorders (1 source) Impairment of balance; Translations: [Other abnormalities of gait and mobility] 05-24-2024 Episodic Other skin disorders (1 source) Foot callus; Translations: [Corns and callosities] 03-12-2023 Episodic Tsering-; endo-; and myocarditis; cardiomyopathy (except that caused by tuberculosis or sexually transmitted disease) (1 source) Cardiomyopathy; Translations: [Other cardiomyopathies] Chronic Peripheral and visceral atherosclerosis (20 sources) Peripheral vascular disease; Translations: [Peripheral vascular disease, unspecified] Onset: 09-25-2015 09-25-2015 Chronic Residual codes; unclassified (1 source) Memory impairment; Translations: [Other amnesia] 05-24-2024 Episodic Respiratory failure; insufficiency; arrest (adult) (20 sources) Acute on chronic hypoxemic respiratory failure; Translations: [Acute and chronic respiratory failure with hypoxia] Onset: 09-12-2018 09-12-2018 Chronic Superficial injury; contusion (6 sources) Contusion of hip; Translations: [Contusion of unspecified hip, initial encounter] 06-12-2024 Episodic Thyroid disorders (20 sources) Acquired hypothyroidism; Translations: [Hypothyroidism, unspecified] Onset: 07-20-2016 07-20-2016 Chronic Unclassified (2 sources) Cardiomyopathy, unspecified type (HCC) Onset: 12-20-2018 Unclassified (1 source) Acute cough; Translations: [Acute cough] Onset: 08-29-2024 Viral infection (20 sources) Disease caused by 2019-nCoV; Translations: [COVID-19] Onset: 06-10-2023 Resolved: 12-09-2023 03-11-2021 Episodic Past or Other Problems Problem Classification Problem Date Documented Date Episodic/Chronic Conduction disorders (20 sources) Left bundle branch block; Translations: [Left bundle-branch block, unspecified] Onset: 08-02-2015 Resolved: 12-09-2023 12-02-2015 Chronic Deficiency and other anemia (1 source) Anemia, unspecified; Translations: [Anemia, unspecified type] Onset: 04-10-2024 Episodic Diabetes mellitus without complication (20 sources) Impaired fasting glycemia; Translations: [Impaired fasting glucose] Onset: 07-25-2016 07-25-2016 Episodic Genitourinary symptoms and ill-defined conditions (20 sources) Urinary symptoms ; Translations: [Unspecified symptoms and signs involving the genitourinary system] Onset: 03-14-2023 Resolved: 12-09-2023 Episodic Other connective tissue disease (1 source) Pain in right leg; Translations: [Pain in both lower extremities] Onset: 03-14-2024 Episodic Other connective tissue disease (1 source) Pain in left leg; Translations: [Pain in both lower extremities] Onset: 03-14-2024 Episodic Other diseases of kidney and ureters (20 sources) Renal impairment; Translations: [Disorder of kidney and ureter, unspecified] Onset: 03-04-2023 Resolved: 11-20-2024 Episodic Other diseases of kidney and ureters (1 source) Disorder of kidney and ureter, unspecified; Translations: [Kidney insufficiency] Onset: 03-04-2023 Episodic Other injuries and conditions due to external causes (1 source) Encounter for examination and observation following other accident; Translations: [Encounter for examination and observation following other accident] Onset: 07-05-2024 Episodic Other screening for suspected conditions (not mental disorders or infectious disease) (10 sources) Cardiovascular stress test abnormal; Translations: [Abnormal result of other cardiovascular function study] Onset: 08-02-2015 Resolved: 08-14-2021 08-02-2015 Episodic Other skin disorders (20 sources) Sebaceous cyst of skin; Translations: [Sebaceous cyst] Onset: 09-19-2016 Resolved: 06-30-2017 06-30-2017 Episodic Other upper respiratory disease (20 sources) Bronchospasm; Translations: [Acute bronchospasm] Onset: 09-12-2018 Resolved: 12-09-2023 09-12-2018 Episodic Prolapse of female genital organs (14 sources) Third degree uterine prolapse; Translations: [Uterovaginal prolapse] Onset: 04-10-2015 Resolved: 02-03-2017 02-03-2017 Chronic Urinary tract infections (19 sources) Acute urinary tract infection; Translations: [Urinary tract infection, site not specified] Onset: 05-08-2015 Resolved: 02-03-2017 02-03-2017 Episodic Results Test Name Value Interpretation Reference Range Facility Prealbumin [id number] Prealbumin [Mass/Vol] 25 mg/dL Normal 9-32 [facility] Comment on above: Result Comment: Perf ormed at: CB - [facility] [address] [id number] Medical Anthropology Director: Ac Saavedra PhD, Phone: [phone] Performed By: #### L 500.2500, L100.0100 #### [facility] [address] [place], [place], [address] Absolute lymphocyte countOrd ered By: Catarino Dominguez on 11-23-2024 Lymphocytes Auto (Unsp spec) [#/Vol] 1.42 10*3/uL 0.83-4.51 [facility] Absolute neutrophil countOrd ered By: Catarino Dominguez on 11-23-2024 Neutrophils (Bld) [#/Vol] 5.5 10*3/uL 2.0-7.7 [facility] Anion gap in Serum or Plasma Ordered By: Catarino Dominguez on 11-23-2024 Anion gap [Moles/Vol] 13 mmol/L 5-15 [facility] Automated lymphocyte count a s percentage of total leukocytesOrdered By: aCtarino Dominguez on 11-23-2024 Lymphocytes/100 WBC Auto (Unsp spec) 18.1 % Low 19-41 [facility] BUN/creatinine ratioOrdered By: Catarino Dominguez on 11-23-2024 Urea nitrogen/Creatinine [Mass ratio] 28.3 mg/mg High 10-20 [facility] Basophil percentageOrdered B y: Catarino Dominguez on 11-23-2024 Basophils/100 WBC (Bld) 0.8 % 0-1 [facility] Bilirubin, totalOrdered By: Catarino Dominguez on 11-23-2024 Bilirubin [Mass/Vol] 0.37 mg/dL 0.00-1.30 [facility] CBC W/Diff, Automatedon 10-29 Absolute Lymph 1.42 X10 3/uL Normal 0.83-4.51 [facility] Comment on above: Performed By: #### L 500.2500, L100.0100 #### [facility] [address] [place], [address] Absolute Neut 5.5 X10 3/uL Normal 2.0-7.7 [facility] Comment on above: Performed By: #### L 500.2500, L100.0100 #### [facility] [address] [place], [address] Basophils/100 WBC (Bld) 0.8 % Normal 0-1 [facility] Comment on above: Performed By: #### L 500.2500, L100.0100 #### [facility] [address] [place], [address] Eosinophils/100 WBC (Bld) 2.0 % Normal 0-5 [facility] Comment on above: Performed By: #### L 500.2500, L100.0100 #### [facility] [address] [place], [address] Erythrocyte distribution width (RBC) [Ratio] 15.4 % High 11.6-14.6 [facility] Comment on above: Performed By: #### L 500.2500, L100.0100 #### [facility] [address] [place], [address] Hematocrit (Bld) [Volume fraction] 38.5 % Normal 37-47 [facility] Comment on above: Performed By: #### L 500.2500, L100.0100 #### [facility] [address] [place], [address] Hemoglobin (Bld) [Mass/Vol] 12.5 g/dL Normal 12.0-15.0 [facility] Comment on above: Performed By: #### L 500.2500, L100.0100 #### [facility] [address] [place], [address] IG% 0.500 Normal 0.0-0.9 [facility] Comment on above: Result Comment: IG% - Immature Granulocytes (promyelocytes, myelocytes and metamyelocytes) > 1% indicates that a LEFT SHIFT is Present. Performed By: #### L 500.2500, L100.0100 #### [facility] [address] [place], [address] Lymphocytes/100 WBC (Bld) 18.1 % Low 19-41 [facility] Comment on above: Performed By: #### L 500.2500, L100.0100 #### [facility] [address] [place], [address] MCH (RBC) [Entitic mass] 30.0 pg Normal 27.0-32.0 [facility] Comment on above: Performed By: #### L 500.2500, L100.0100 #### [facility] [address] [place], [address] MCHC (RBC) [Mass/Vol] 32.5 g/dL Normal 32-36 [facility] Comment on above: Performed By: #### L 500.2500, L100.0100 #### [facility] [address] [place], [address] MCV (RBC) [Entitic vol] 92.3 fL Normal 81-99 [facility] Comment on above: Performed By: #### L 500.2500, L100.0100 #### [facility] [address] [place], [address] Monocytes/100 WBC (Bld) 7.9 % Normal 0-10 [facility] Comment on above: Performed By: #### L 500.2500, L100.0100 #### [facility] [address] [place], [address] Neutrophils/100 WBC (Bld) 70.7 % High 47-70 [facility] Comment on above: Performed By: #### L 500.2500, L100.0100 #### [facility] [address] [place], [address] Nucleated RBC (Bld) [#/Vol] 0 10*3/uL Normal 0-5 [facility] Comment on above: Performed By: #### L 500.2500, L100.0100 #### [facility] [address] [place], [address] Platelet mean volume (Bld) [Entitic vol] 10.5 fL Normal 6.2-12.0 [facility] Comment on above: Performed By: #### L 500.2500, L100.0100 #### [facility] [address] [place], [address] Platelets (Bld) [#/Vol] 234 10*3/uL Normal 150-450 [facility] Comment on above: Performed By: #### L 500.2500, L100.0100 #### [facility] [address] [place], [address] RBC (Bld) [#/Vol] 4.17 10*6/uL Low 4.2-5.4 [facility] Comment on above: Performed By: #### L 500.2500, L100.0100 #### [facility] [address] [place], [address] RDW SD 53.3 fl High 35.1-43.9 [facility] Comment on above: Performed By: #### L 500.2500, L100.0100 #### [facility] [address] [place], [address] WBC (Bld) [#/Vol] 7.8 10*3/uL Normal 4.4-11.0 [facility] Comment on above: Performed By: #### L 500.2500, L100.0100 #### [facility] [address] [place], [address] CRPon 11-23-2024 C-REACTIVE PROT 5.57 mg/L High 0.0-3.0 [facility] Comment on above: Performed By: #### L 500.2500, L100.0100 #### [facility] [address] [place], [address] CRP [Mass/Vol]Ordered By: Luke Dominguez on 11-23-2024 C-Reactive Protein Extended Range 5.57 mg/L High 0.0-3.0 [facility] Carbon dioxide, total [Moles /volume] in Central venous bloodOrdered By: Catarino Dominguez on 11-23-2024 CO2 [Moles/Vol] 24.3 mmol/L 21.0-32.0 [facility] Chloride assayOrdered By: Luke Dominguez on 11-23-2024 Chloride [Moles/Vol] 104 mmol/L 98-108 [facility] Comprehensive Metabolic Prof ilon 11-23-2024 Albumin [Mass/Vol] 3.8 g/dL Normal 3.4-4.8 [facility] Comment on above: Performed By: #### L 500.2500, L100.0100 #### [facility] [address] [place], [address] Albumin/Globulin [Mass ratio] 1.4 {ratio} Normal 0.9-2.4 [facility] Comment on above: Performed By: #### L 500.2500, L100.0100 #### [facility] [address] [place], [address] ALK PHOS 63 U/L Normal 35-104 [facility] Comment on above: Performed By: #### L 500.2500, L100.0100 #### [facility] [address] [place], [address] ALT [Catalytic activity/Vol] 16 U/L Normal <=34 [facility] Comment on above: Performed By: #### L 500.2500, L100.0100 #### [facility] [address] [place], [address] AST [Catalytic activity/Vol] 21 U/L Normal <=31 [facility] Comment on above: Performed By: #### L 500.2500, L100.0100 #### [facility] [address] [place], [address] Bilirubin [Mass/Vol] 0.37 mg/dL Normal 0.00-1.30 [facility] Comment on above: Performed By: #### L 500.2500, L100.0100 #### [facility] [address] [place], [address] BUN/CRE 28.3 RATIO High 10-20 [facility] Comment on above: Performed By: #### L 500.2500, L100.0100 #### [facility] [address] [place], [address] Calcium [Mass/Vol] 9.2 mg/dL Normal 7.6-11.0 [facility] Comment on above: Performed By: #### L 500.2500, L100.0100 #### [facility] [address] [place], [address] Chloride [Moles/Vol] 104 mmol/L Normal 98-108 [facility] Comment on above: Performed By: #### L 500.2500, L100.0100 #### [facility] [address] [place], [address] CO2 [Moles/Vol] 24.3 mmol/L Normal 21.0-32.0 [facility] Comment on above: Performed By: #### L 500.2500, L100.0100 #### [facility] [address] [place], [address] Creatinine [Mass/Vol] 0.91 mg/dL Normal 0.70-1.20 [facility] Comment on above: Performed By: #### L 500.2500, L100.0100 #### [facility] [address] [place], [address] ECRCL 46.84 ml/min Low 50-250 [facility] Comment on above: Performed By: #### L 500.2500, L100.0100 #### [facility] [address] [place], [address] GAP 13 Normal 5-15 [facility] Comment on above: Performed By: #### L 500.2500, L100.0100 #### [facility] [address] [place], [address] GFR/1.73 sq M.predicted among non-blacks MDRD (S/P/Bld) [Vol rate/Area] 66 mL/min/{1.73_m2} Normal >60 [facility] Comment on above: Result Comment: mL/m in/1.73m2 CKD-EPI Creatinine Equation (2020) Performed By: #### L 500.2500, L100.0100 #### [facility] [address] [place], [address] Globulin (S) [Mass/Vol] 2.7 g/dL Normal 2.2-4.2 [facility] Comment on above: Performed By: #### L 500.2500, L100.0100 #### [facility] [address] [place], [address] Glucose [Mass/Vol] 103 mg/dL High 70-99 [facility] Comment on above: Performed By: #### L 500.2500, L100.0100 #### [facility] [address] [place], [address] Potassium [Moles/Vol] 4.5 mmol/L Normal 3.3-5.1 [facility] Comment on above: Performed By: #### L 500.2500, L100.0100 #### [facility] [address] [place], [address] Sodium [Moles/Vol] 141 mmol/L Normal 133-145 [facility] Comment on above: Performed By: #### L 500.2500, L100.0100 #### [facility] [address] [place], [address] T PROT 6.5 g/dL Normal 5.9-8.4 [facility] Comment on above: Performed By: #### L 500.2500, L100.0100 #### [facility] [address] [place], [address] Urea nitrogen [Mass/Vol] 26 mg/dL High 4-19 [facility] Comment on above: Performed By: #### L 500.2500, L100.0100 #### [facility] [address] [place], [address] Eosinophil percentageOrdered By: Catarino Dominguez on 11-23-2024 Eosinophils/100 WBC (Bld) 2.0 % 0-5 [facility] Erythrocyte Sed Rateon 11-23 SED RATE 6 mm/hr Normal 0-30 [facility] Comment on above: Performed By: #### L 500.2500, L100.0100 #### [facility] [address] [place], [address] Erythrocyte distribution wid th ratioOrdered By: Catarino Dominguez on 11-23-2024 Erythrocyte distribution width (RBC) [Ratio] 15.4 % High 11.6-14.6 [facility] Erythrocyte distribution wid th standard deviationOrdered By: Catarino Dominguez on 11-23-2024 Erythrocyte distribution width (RBC) [Entitic vol] 53.3 fL High 35.1-43.9 [facility] Erythrocyte distribution width (RBC) [Ratio] 53.3 fl High 35.1-43.9 [facility] Erythrocyte sedimentation ra teOrdered By: Catarino Dominguez on 11-23-2024 ESR (Bld) [Velocity] 6 mm/h 0-30 [facility] Estimation of creatinine sahil aranceOrdered By: Catarino Dominguez on 11-23-2024 Estimated Creatinine Clearance Calc 46.84 ml/min Low 50-250 [facility] GFR/1.73 sq M.predicted foreign g non-blacks MDRD (S/P/Bld) [Vol rate/Area]Ordered By: Catarino Dominguez on 11-23-2024 Estimated GFR (MDRD) Non-Af Amer 66 >60 [facility] Comment on above: mL/min/1.73m2 CKD-EP I Creatinine Equation (2020) Glomerular filtration rate ( GFR) estimation/1.73 sq m using serum, plasma, or whole bOrdered By: Catarino Dominguez on 11-23-2024 GFR/1.73 sq M.predicted among non-blacks MDRD (S/P/Bld) [Vol rate/Area] 66 mL/min/{1.73_m2} >60 [facility] Comment on above: mL/min/1.73m2 CKD-EP I Creatinine Equation (2020) Hematocrit Auto (Bld) [Volum e fraction]Ordered By: Catarino Dominguez on 11-23-2024 Hematocrit (Bld) [Volume fraction] 38.5 % 37-47 [facility] Hemoglobin A1con 11-23-2024 HbA1c (Bld) [Mass fraction] 6.3 % Normal <=5.6 [facility] Comment on above: Performed By: #### L 500.2500, L100.0100 #### [facility] [address] [place] [address]. [place], [place], [id number] Hemoglobin A1c percentageOrd ered By: Catarino Dominguez on 11-23-2024 HbA1c (Bld) [Mass fraction] 6.3 % >5.7 [facility] Hemoglobin measurementOrdere d By: Catarino Dominguez on 11-23-2024 Hemoglobin (Bld) [Mass/Vol] 12.5 g/dL 12.0-15.0 [facility] Immature granulocytes/100 WB C Auto (Bld)Ordered By: Catarino Dominguez on 11-23-2024 Immature granulocytes/100 WBC (Bld) 0.500 % 0.0-0.9 [facility] Comment on above: IG% - Immature Granu locytes (promyelocytes, myelocytes and metamyelocytes) > 1% indicates that a LEFT SHIFT is Present. Laboratory - Chemistry and C hemistry - challengeOrdered By: Catarino Dominguez on 11-23-2024 AST [Catalytic activity/Vol] 21 U/L <32 [facility] Lymphocytes Auto (Unsp spec) [#/Vol]Ordered By: Catarino Dominguez on 11-23-2024 Lymphocytes (Bld) [#/Vol] 1.42 10*3/uL 0.83-4.51 [facility] Lymphocytes/100 WBC Auto (Un sp spec)Ordered By: Catarino Dominguez on 11-23-2024 Lymphocytes/100 WBC (Bld) 18.1 % Low 19-41 [facility] MCV (mean corpuscular volume ) determinationOrdered By: Catarino Dominguez on 11-23-2024 MCV (RBC) [Entitic vol] 92.3 fL 81-99 [facility] Mean corpuscular hemoglobin (MCH) determinationOrdered By: nitazendathea Dominguez on 11-23-2024 MCH (RBC) [Entitic mass] 30.0 pg 27.0-32.0 [facility] Mean corpuscular hemoglobin concentration (MCHC) determinationOrdered By: nitazendathea Dominguez on 11-23-2024 MCHC (RBC) [Mass/Vol] 32.5 g/dL 32-36 [facility] Mean platelet volume determi nationOrdered By: Catarino Dominguez on 11-23-2024 Platelet mean volume (Bld) [Entitic vol] 10.5 fL 6.2-12.0 [facility] Monocyte percentageOrdered B y: Catarino Dominguez on 11-23-2024 Monocytes/100 WBC (Bld) 7.9 % 0-10 [facility] Neutrophil percentageOrdered By: Catarino Dominguez on 11-23-2024 Neutrophils/100 WBC (Bld) 70.7 % High 47-70 [facility] Nucleated red blood cell per centageOrdered By: Catarino Dominguez on 11-23-2024 Nucleated RBC/100 WBC (Bld) [Ratio] 0 % 0-5 [facility] Platelet countOrdered By: Luke Dominguez on 11-23-2024 Platelets (Bld) [#/Vol] 234 10*3/uL 150-450 [facility] Potassium (Unsp spec) [Mass/ Vol]Ordered By: Catarino Humphreysrosibeljack on 11-23-2024 Potassium [Moles/Vol] 4.5 mmol/L 3.3-5.1 [facility] Potassium measurement (mass/ volume)Ordered By: Catarino Dominguez on 11-23-2024 Potassium (Unsp spec) [Mass/Vol] 4.5 mmol/L 3.3-5.1 [facility] RBC Auto (Bld) [#/Vol]Ordere d By: Catarino Petrjustus on 11-23-2024 RBC (Bld) [#/Vol] 4.17 10*6/uL Low 4.2-5.4 [facility] Sacrum-Coccyx min 2 Viewson 11-23-2024 Sacrum-Coccyx min [address] [facility] Imaging Services [address] [place] [address] Sacrum-Coccyx min 2 Views MR#: [id number] Acct: [id number] Name: DALIA LOPEZ Rep #: [id number] : 1950 F 74 From: Tomy Che MD PCP: Dr. Lenin Bhatt MD Status: REG RCR Study: Sacrum-Coccyx min 2 Views Date of Exam: Exam# [id number] Ordering Dr: Catarino Dominguez MD EXAM: XR Sacrum and Coccyx, 2 or more Views CLINICAL INDICATION: SACRAL ULCER STAGE IV TECHNIQUE: Frontal and lateral views of the sacrum and coccyx. COMPARISON: No relevant prior studies available. FINDINGS: SACRUM/COCCYX: Unremarkable as visualized. No acute fracture. VERTEBRAE: Visualized lumbar vertebrae are unremarkable. SOFT TISSUES: Soft tissue swelling. OTHER FINDINGS: No obvious radiographic evidence of osteomyelitis. However, if clinical suspicion remains high, further evaluation with 3 phase bone scan or MRI is recommended. No erosive changes to the osseous structures. RAD/Sacrum-Coccyx min 2 Views IMPRESSION: No obvious radiographic evidence of osteomyelitis. However, if clinical suspicion remains high, further evaluation with 3 phase bone scan or MRI is recommended. Reading [facility] CC: Dr. Catarino Dominguez MD; Dr. 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 Normal [facility] Serum creatinine measurement (mass/volume)Ordered By: Catarino Dominguez on 11-23-2024 Creatinine [Mass/Vol] 0.91 mg/dL 0.70-1.20 [facility] Serum globulin measurementOr dered By: Catarino Dominguez on 11-23-2024 Globulin (S) [Mass/Vol] 2.7 g/dL 2.2-4.2 [facility] Serum glucose measurement (m ass/volume)Ordered By: Catarino Dominguez on 11-23-2024 Glucose [Mass/Vol] 103 mg/dL High 70-99 [facility] Serum or plasma C reactive p rotein measurement (mass/volume)Ordered By: Catarino Dominguez on 11-23-2024 CRP [Mass/Vol] 5.57 mg/L High 0.0-3.0 [facility] Serum or plasma alanine lyons otransferase (ALT) measurementOrdered By: Catarino Dominguez on 11-23-2024 ALT [Catalytic activity/Vol] 16 U/L <35 [facility] Serum or plasma albumin hollie urement (mass/volume)Ordered By: Catarino Dominguez on 11-23-2024 Albumin [Mass/Vol] 3.8 g/dL 3.4-4.8 [facility] Serum or plasma albumin/glob ulin mass ratioOrdered By: Catarino Dominguez on 11-23-2024 Albumin/Globulin [Mass ratio] 1.4 {ratio} 0.9-2.4 [facility] Serum or plasma alkaline luis sphatase measurementOrdered By: Catarino Dominguez on 11-23-2024 ALP [Catalytic activity/Vol] 63 U/L 35-104 [facility] Serum or plasma calcium hollie urement (mass/volume)Ordered By: Catarino Dominguez on 11-23-2024 Calcium [Mass/Vol] 9.2 mg/dL 7.6-11.0 [facility] Serum or plasma urea nitroge n measurement (mass/volume)Ordered By: Pattiekathythea Dominguez on 11-23-2024 Urea nitrogen [Mass/Vol] 26 mg/dL High 4-19 [facility] Serum prealbumin measurement by immunoassayOrdered By: Catarino Dominguez on 11-23-2024 Prealbumin [Mass/Vol] 25 mg/dL 9-32 [facility] Comment on above: Performed at: [place] [id number] Director: Ac Saavedra PhD, Phone: [phone] Sodium levelOrdered By: Pattie stephane Angelica on 11-23-2024 Sodium [Moles/Vol] 141 mmol/L 133-145 [facility] Total proteinOrdered By: Rigobertojack landers Angelica on 11-23-2024 Protein [Mass/Vol] 6.5 g/dL 5.9-8.4 [facility] White blood cell (WBC) count Ordered By: Lukenitakathythea Dominguez on 11-23-2024 WBC (Bld) [#/Vol] 7.8 10*3/uL 4.4-11.0 [facility] CBC W Auto Differential pane l (Bld)on 11-20-2024 Basophils (Bld) [#/Vol] 0.04 10*3/uL Normal <0.11 [facility] Comment on above: Order Comment: Speci men Type: BLOOD SPECIMEN Ordering Facility: [facility] Address: [address] [place] [address] Performed By: #### 4 537-7, 63302-3 #### [facility] CLIA [id number] [address] [place] [address] [place] Basophils/100 WBC (Bld) 0.6 % Normal [facility] Comment on above: Order Comment: Speci men Type: BLOOD SPECIMEN Ordering Facility: [facility] Address: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 Order cancelled - Patient discharged Performed By: #### L 100.0100, L500.2500 #### [facility] [address] [place], [address] GAP Normal 5-15 [facility] Comment on above: Result Comment: Canc elled via OM: Order cancelled - Patient discharged Performed By: #### L 100.0100, L500.2500 #### [facility] [address] [place], [address] GLU Normal 74-106 [facility] Comment on above: Result Comment: Canc elled via OM: Order cancelled - Patient discharged Performed By: #### L 100.0100, L500.2500 #### [facility] [address] [place], [address] Potassium Normal 3.5-5.1 [facility] Comment on above: Result Comment: Canc elled via OM: Order cancelled - Patient discharged Performed By: #### L 100.0100, L500.2500 #### [facility] [address] [place], [address] Basic Metabolic Profile (BMP) Normal 136-145 [facility] Comment on above: Result Comment: Canc elled via OM: Order cancelled - Patient discharged Performed By: #### L 100.0100, L500.2500 #### [facility] [address] [place], [address] CBC W/Diff, Automatedon 11-2 Absolute Neut Normal 2.0-7.7 [facility] Comment on above: Result Comment: Canc elled via OM: Order cancelled - Patient discharged Performed By: #### L 100.0100, L500.2500 #### [facility] [address] [place], [address] HCT Normal 37-47 [facility] Comment on above: Result Comment: Canc elled via OM: Order cancelled - Patient discharged Performed By: #### L 100.0100, L500.2500 #### [facility] [address] [place], [address] HGB Normal 12.0-15.0 [facility] Comment on above: Result Comment: Canc elled via OM: Order cancelled - Patient discharged Performed By: #### L 100.0100, L500.2500 #### [facility] [address] [place], [address] MCH Normal 27.0-32.0 [facility] Comment on above: Result Comment: Canc elled via OM: Order cancelled - Patient discharged Performed By: #### L 100.0100, L500.2500 #### [facility] [address] [place], [address] MCHC Normal 32-36 [facility] Comment on above: Result Comment: Canc elled via OM: Order cancelled - Patient discharged Performed By: #### L 100.0100, L500.2500 #### [facility] [address] [place], [address] MCV Normal 81-99 [facility] Comment on above: Result Comment: Canc elled via OM: Order cancelled - Patient discharged Performed By: #### L 100.0100, L500.2500 #### [facility] [address] [place], [address] NEUT% Normal 47-70 [facility] Comment on above: Result Comment: Canc elled via OM: Order cancelled - Patient discharged Performed By: #### L 100.0100, L500.2500 #### [facility] [address] [place], [address] PLT Normal 150-450 [facility] Comment on above: Result Comment: Canc elled via OM: Order cancelled - Patient discharged Performed By: #### L 100.0100, L500.2500 #### [facility] [address] [place], [address] RBC Normal 4.2-5.4 [facility] Comment on above: Result Comment: Canc elled via OM: Order cancelled - Patient discharged Performed By: #### L 100.0100, L500.2500 #### [facility] [address] [place], [address] RDW CV Normal 11.6-14.6 [facility] Comment on above: Result Comment: Canc elled via OM: Order cancelled - Patient discharged Performed By: #### L 100.0100, L500.2500 #### [facility] [address] [place], [address] RDW SD Normal 35.1-43.9 [facility] Comment on above: Result Comment: Canc elled via OM: Order cancelled - Patient discharged Performed By: #### L 100.0100, L500.2500 #### [facility] [address] [place], [place], [address] WBC Normal 4.4-11.0 [facility] Comment on above: Result Comment: Canc elled via OM: Order cancelled - Patient discharged Performed By: #### L 100.0100, L500.2500 #### [facility] [address] [place], [address] CNPNon 07-14-2024 CNPN Telephone (FAMPWS) DALIA LOPEZ ([id number]) 1950 F Date Time Provider Department 07/14/24 LENIN BH[facility] During your visit today, we recorded the following information about you: Franchesca Castro LPN 07/14/2024 11:02 AM Signed Nina from [facility] calling wanting to get a referral to [facility] Wound center for left hell, sacral area and left buttock wounds. Please review and advise further EMILIANO Perkins Victor H, MD 07/14/2024 12:46 PM Signed ASSESSMENT/PLAN: 1. Decubitus ulcer of sacral region, stage 3 (HCC) - ICD9: 707.03, 707.23, ICD10: L89.153 (primary diagnosis) - CONSULT TO NON-[facility] FACILITY 2. Skin ulcer of left heel with fat layer exposed (HCC) - ICD9: 707.14, ICD10: L97.422 - CONSULT TO NON-[facility] FACILITY Refer to [facility]ound [facility]. MD Keny Gaitan Toni, MA 07/14/2024 3:10 PM Signed Faxed to [facility] Fax #: [phone] Allergies As of Date: 07/14/2024 (No Known Allergies) Date Reviewed: 07/07/2024 Reviewed by: Lashon Brooke LPN - Fully Assessed Reason for Visit: Consult [502] Cmt: [facility] Primary Visit Diagnosis:Decubitus ulcer of sacral region, stage 3 (HCC) [L89.153] Other Visit Diagnosis:Skin ulcer of left heel with fat layer exposed (HCC) [L97.422] Order(s):CONSULT TO NON-[facility] FACILITY [[id number]] Order #: [id number] Prescriptions as of 07/14/2024 - albuterol HFA (VENTOLIN HFA) 90 mcg/actuation inhaler Inhale 2 Puffs as instructed every 4 hours as needed for wheezing/shortness of breath. - acetaminophen-codeine (TYLENOL-COD #3) 300-30 mg per [...] wheezing/shortness of breath. Use over 5-15minutes. - furosemide (LASIX) 20 mg tablet take [...] CHF, bronchospasm. Problem List As Of Date 07/14/2024 Noted Resolved Aphasia, late effect of cerebrovascular disease*07/20/2016 Late effects of CVA (cerebrovascular accident) *07/20/2016 Essential hypertension [I10] 07/20/2016 Seizure as late effect of cerebrovascular accid*07/20/2016 PVD (peripheral vascular disease) ([facility]) [I73.9] 07/20/2016 Acquired hypothyroidism [E03.9] [...] depressive di*07/15/2021 Sacral decubitus ulcer, stage II ([facility]) [L89.152]03/04/2023 12/09/2023 Kidney insufficiency [N28.9] 03/04/2023 Bacteriuria with pyuria [R82.71, R82.81] 03/14/2023 12/09/2023 Arteriosclerosis of coronary artery [I25.10] 04/15/2023 Diagnosed: 04/15/2023 Closed head injury [S09.90XA] 04/15/2023 12/09/2023 Diagnosed: 04/15/2023 History of stroke [Z86.73] 06/06/2015 Diagnosed: 04/15/2023 LBBB (left bundle branch block) [I44.7] 08/02/2015 12/09/2023 Diagnosed: 04/15/2023 Leukopenia [D72.819] 04/15/2023 0 (more content not included)... Normal [facility] Basic Metabolic Profile (BMP )on 07-13-2024 BUN Normal -18 [facility] Comment on above: Result Comment: Canc elled via OM: Order cancelled - Patient discharged Performed By: #### L 100.0100, L500.2500 #### [facility] [address] [place], [address] BUN/CRE Normal 10-20 [facility] Comment on above: Result Comment: Canc elled via OM: Order cancelled - Patient discharged Performed By: #### L 100.0100, L500.2500 #### [facility] [address] [place], [address] CA,Total Normal 8.5-10.1 [facility] Comment on above: Result Comment: Canc elled via OM: Order cancelled - Patient discharged Performed By: #### L 100.0100, L500.2500 #### [facility] [address] [place], [address] CL Normal 98-107 [facility] Comment on above: Result Comment: Canc elled via OM: Order cancelled - Patient discharged Performed By: #### L 100.0100, L500.2500 #### [facility] [address] [place], [address] CO2 Normal 21.0-32.0 [facility] Comment on above: Result Comment: Canc elled via OM: Order cancelled - Patient discharged Performed By: #### L 100.0100, L500.2500 #### [facility] [address] [place], [address] CREAT,SERUM Normal 0.55-1.02 [facility] Comment on above: Result Comment: Canc elled via OM: Order cancelled - Patient discharged Performed By: #### L 100.0100, L500.2500 #### [facility] [address] [place], [address] EST GFR Normal >60 [facility] Comment on above: Result Comment: Canc elled via OM: Order cancelled - Patient discharged Performed By: #### L 100.0100, L500.2500 #### [facility] [address] [place], [address] EST GFR - AA Normal >60 [facility] Comment on above: Result Comment: Canc elled via OM: Order cancelled - Patient discharged Performed By: #### L 100.0100, L500.2500 #### [facility] [address] [place], [address] GAP Normal 5-15 [facility] Comment on above: Result Comment: Canc elled via OM: Order cancelled - Patient discharged Performed By: #### L 100.0100, L500.2500 #### [facility] [address] [place], [address] GLU Normal 74-106 [facility] Comment on above: Result Comment: Canc elled via OM: Order cancelled - Patient discharged Performed By: #### L 100.0100, L500.2500 #### [facility] [address] [place], [address] Potassium Normal 3.5-5.1 [facility] Comment on above: Result Comment: Canc elled via OM: Order cancelled - Patient discharged Performed By: #### L 100.0100, L500.2500 #### [facility] [address], [address] Basic Metabolic Profile (BMP) Normal 136-145 [facility] Comment on above: Result Comment: Canc elled via OM: Order cancelled - Patient discharged Performed By: #### L 100.0100, L500.2500 #### [facility] [address] [place], [address] CBC W/Diff, Automatedon 11- Absolute Neut Normal 2.0-7.7 [facility] Comment on above: Result Comment: Canc elled via OM: Order cancelled - Patient discharged Performed By: #### L 100.0100, L500.2500 #### [facility] [address] [place], [address] HCT Normal 37-47 [facility] Comment on above: Result Comment: Canc elled via OM: Order cancelled - Patient discharged Performed By: #### L 100.0100, L500.2500 #### [facility] [address] [place], [address] HGB Normal 12.0-15.0 [facility] Comment on above: Result Comment: Canc elled via OM: Order cancelled - Patient discharged Performed By: #### L 100.0100, L500.2500 #### [facility] [address] [place], [address] MCH Normal 27.0-32.0 [facility] Comment on above: Result Comment: Canc elled via OM: Order cancelled - Patient discharged Performed By: #### L 100.0100, L500.2500 #### [facility] [address] [place], [address] MCHC Normal 32-36 [facility] Comment on above: Result Comment: Canc elled via OM: Order cancelled - Patient discharged Performed By: #### L 100.0100, L500.2500 #### [facility] [address] [place], [address] MCV Normal 81-99 [facility] Comment on above: Result Comment: Canc elled via OM: Order cancelled - Patient discharged Performed By: #### L 100.0100, L500.2500 #### [facility] [address] [place], [address] NEUT% Normal 47-70 [facility] Comment on above: Result Comment: Canc elled via OM: Order cancelled - Patient discharged Performed By: #### L 100.0100, L500.2500 #### [facility] [address] [place], [address] PLT Normal 150-450 [facility] Comment on above: Result Comment: Canc elled via OM: Order cancelled - Patient discharged Performed By: #### L 100.0100, L500.2500 #### [facility] [address] [place], [address] RBC Normal 4.2-5.4 [facility] Comment on above: Result Comment: Canc elled via OM: Order cancelled - Patient discharged Performed By: #### L 100.0100, L500.2500 #### [facility] [address] [place], [address] RDW CV Normal 11.6-14.6 [facility] Comment on above: Result Comment: Canc elled via OM: Order cancelled - Patient discharged Performed By: #### L 100.0100, L500.2500 #### [facility] [address] [place], [address] RDW SD Normal 35.1-43.9 [facility] Comment on above: Result Comment: Canc elled via OM: Order cancelled - Patient discharged Performed By: #### L 100.0100, L500.2500 #### [facility] [address] [place], [address] WBC Normal 4.4-11.0 [facility] Comment on above: Result Comment: Canc elled via OM: Order cancelled - Patient discharged Performed By: #### L 100.0100, L500.2500 #### [facility] [address] [place], [address] CNPCadence 07-10-2024 CNPN Telephone (INTMWS) DALIA LOPEZ ([id number]) 1950 F Date Time Provider Department 07/10/24 LENIN BHATT INTMWS During your visit today, we recorded the following information about you: Divya Ibanez RN 07/10/2024 10:09 AM Signed Bettie PT from [facility] HH calls to report plan of care for patient and physical therapy will visit patient 2 times a week for 4 weeks. Physical therapy will work with patient on lower extremity strength, balance, and transfer and gait training. No call back needed. Divya Ibanez RN Allergies As of Date: 07/10/2024 (No Known Allergies) Date Reviewed: 07/07/2024 Reviewed by: Lashon Brooke LPN - Fully Assessed Reason for Visit: Physical Therapy Plan of Care [Other] Prescriptions as of 07/10/2024 - albuterol HFA (VENTOLIN HFA) 90 mcg/actuation inhaler Inhale 2 Puffs as instructed every 4 hours as needed for wheezing/shortness of breath. - acetaminophen-codeine (TYLENOL-COD #3) 300-30 mg per [...] wheezing/shortness of breath. Use over 5-15minutes. - furosemide (LASIX) 20 mg tablet take [...] CHF, bronchospasm. Problem List As Of Date 07/10/2024 Noted Resolved Aphasia, late effect of cerebrovascular disease*07/20/2016 Late effects of CVA (cerebrovascular accident) *07/20/2016 Essential hypertension [I10] 07/20/2016 Seizure as late effect of cerebrovascular accid*07/20/2016 PVD (peripheral vascular disease) ([facility]) [I73.9] 07/20/2016 Acquired hypothyroidism [E03.9] [...] Diagnosed: 06/10/2023 Chronic bronchitis, unspecified chronic bronchi*06/10/2023 Decubitus ulcer of sacral region, stage 3 (HCC)*07/07/2024 Ulcer of left heel (HCC) [L97.429] 07/07/2024 Decubitus ulcer of left buttock, stage 2 (HCC) *07/07/2024 (more content not included)... Normal [facility] Basic metabolic 2000 panelon 07-07-2024 Anion gap [Moles/Vol] 11 mmol/L Normal 8-15 [facility] Comment on above: Order Comment: Speci men Type: BLOOD SPECIMEN Ordering Facility: [facility] Address: [address] [place] [address] Performed By: #### 2 276-4, 2132-04 #### [facility] CLIA [id number] [address] [place] [address] [place] #### [id number] #### [facility] CLIA [id number] [address] [place] [address] [place] [id number] [address] [place] [address] [place] Calcium [Mass/Vol] 8.8 mg/dL Normal 8.5-10.2 [facility] Comment on above: Order Comment: Speci men Type: BLOOD SPECIMEN Ordering Facility: [facility] Address: [address] [place] [address] Performed By: #### 2 276-4, 2132-04 #### [facility] CLIA [id number] [address] [place] [address] [place] #### 64796-7 #### [facility] CLIA [id number] [address] [place] [address] [place] [facility] CLIA [id number] [address] [place] [address] [place] Chloride [Moles/Vol] 103 mmol/L Normal 98-107 [facility] Comment on above: Order Comment: Speci men Type: BLOOD SPECIMEN Ordering Facility: [facility] Address: [address] [place] [address] Performed By: #### 2 276-4, 2132-04 #### [facility] CLIA [id number] [address] [place] [address] [place] #### 77304-1 #### [facility] CLIA [id number] [address] [place] [address] [place] [facility] CLIA [id number] [address] [place] [address] [place] CO2 [Moles/Vol] 23 mmol/L Normal 22-30 [facility] Comment on above: Order Comment: Speci men Type: BLOOD SPECIMEN Ordering Facility: [facility] Address: [address] [place] [address] Performed By: #### 2 276-4, 2132-04 #### [facility] CLIA [id number] [address] [place] [address] [place] #### 89623-2 #### [facility] CLIA [id number] [address] [place] [address] [place] [facility] CLIA [id number] [address] [place] [address] [place] Creatinine [Mass/Vol] 0.93 mg/dL Normal 0.58-0.96 [facility] Comment on above: Order Comment: Speci men Type: BLOOD SPECIMEN Ordering Facility: [facility] Address: [address] [place] [id number] Performed By: #### 2 276-4, 2132-04 #### [facility] CLIA [id number] [address] [place] #### 34016-6 #### [facility] CLIA [id number] [address] [place] [address] [place] [facility] CLIA [id number] [address] [place] [address] [place] Creatinine and Glomerular filtration rate.predicted panel (S/P/Bld) 65 mL/min/1.73m??? Normal >=60 [facility] Comment on above: Order Comment: Chelly burks Type: BLOOD SPECIMEN Ordering Facility: [facility] Address: [address] [place] [address] Result Comment: Grace mated Glomerular Filtration Rate [...] reflect actual GFR. Performed By: #### 2 276-4, 2132-9 #### [facility] CLIA [id number] [address] [place] [address] [place] #### 26692-9 #### [facility] CLIA [id number] [address] [place] [address] [place] [facility] CLIA [id number] [address] [place] [address] [place] Glucose [Mass/Vol] 145 mg/dL High 74-99 [facility] Comment on above: Order Comment: Chelly burks Type: BLOOD SPECIMEN Ordering Facility: [facility] Address: [address] [place], [place] [address] Result Comment: The [place] [employer] (ADA) provides guidance for cutoff [...] Standards of Medical Care in Diabetes 2016, [place] [employer]. Diabetes Care. 2016.39(Suppl 1). Performed By: #### 2 276-, 2132-04 #### [facility] CLIA [id number] [address] [place] [address] [place] #### 85116-0 #### [facility] CLIA [id number] [address] [place] [address] [place] [facility] CLIA [id number] [address] [place] [address] [place] Potassium [Moles/Vol] 4.4 mmol/L Normal 3.7-5.1 [facility] Comment on above: Order Comment: Speci men Type: BLOOD SPECIMEN Ordering Facility: [facility] Address: [address] [place] [address] Performed By: #### 2 276, 2132-04 #### [facility] CLIA [id number] [address] [place] [address] [place] #### 28831-3 #### [facility] CLIA [id number] [address] [place] [address] [place] [facility] CLIA [id number] [address] [place] [address] [place] Sodium [Moles/Vol] 137 mmol/L Normal 136-144 [facility] Comment on above: Order Comment: Speci men Type: BLOOD SPECIMEN Ordering Facility: [facility] Address: [address] [place] [address] Performed By: #### 2 276-2132-04 #### [facility] CLIA [id number] [address] [place] [address] [place] #### 61888-1 #### [facility] CLIA [id number] [address] [place] [address] [place] [facility] [id number] [address] [place] [address] [place] Urea nitrogen [Mass/Vol] 20 mg/dL Normal 7-21 [facility] Comment on above: Order Comment: Speci men Type: BLOOD SPECIMEN Ordering Facility: [facility] Address: [address] [place] [address] Performed By: #### 2 276-4, 2132-04 #### [facility] CLIA [id number] [address] [place] [address] [place] #### 96447-2 #### [facility] CLIA [id number] [address] [place] [address] [place] [facility] [id number] [address] [place] [address] [place] CNOVon 07-07-2024 CNOV Office Visit (INTMWS ) DALIA LOPEZ ([id number]) 1950 F Date Time Provider Department 07/07/24 1:40 PM LENIN BHATT INTMWS During your visit today, we recorded the following information about you: Pulse Blood pressure Weight 84/minute 134/72 63.5 kg Lenin Bhatt MD 07/07/2024 2:51 PM Addendum This note was created using Incipientriter. Subjective Patient presents with: Hospital F/U: Concerned with kidney function and water pills. Swelling to left foot. Unable to get [employer]ar[employer] supplement may need to try order at [employer] for coverage. Has wounds to treat. Dalia Lopez is a 73 year old female here with son William. She had recurrent falls and weakness. She was seen in the ER and treated for urinary tract infection but ended up returning and being admitted for acute kidney injury 06/17-06/21. Aldactone, lisinopril, and furosemide were discontinued. She developed sacral decubitus ulcer which was being treated. She was discharged to TCU 06/21-07/03. She was back home with HH, PT, OT, ST, ROLL BUILDER, wound care. She also developed a left heel ulcer. She was resisting to have a hospital bed. She was ambulating with a rollator at home. We reviewed her medications. Nutritional supplement was being sorted out for coverage. Trospium recommended by geriatrics was not covered. Wound care supplies were coming from [employer] and forms were completed. Son was not aware of supplies coming from a company called [facility]. Review of Systems Constitutional: Negative for chills, fatigue and fever. HENT: Negative. Respiratory: Negative for cough and shortness of breath. Cardiovascular: Negative for chest pain, palpitations and leg swelling. Gastrointestinal: Negative for abdominal pain, constipation, diarrhea, nausea and vomiting. Genitourinary: Negative for difficulty urinating and dysuria. Musculoskeletal: Positive for gait problem. Skin: Positive for wound. Neurological: Negative for dizziness. 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) Pvd (Peripheral Vascular Disease) ([facility]) Acquired Hypothyroidism Hyperlipidemia Anxiety Associated With Depression Impaired Fasting Glucose Mass of Left Kidney Urinary Incontinence Acute On Chronic Respiratory Failure With Hypoxemia ([facility]) Ischemic Cardiomyopathy Chronic Systolic (Congestive) Heart Failure ([facility]) Current Moderate Episode of Major Depressive Disorder ([facility]) Kidney Insufficiency Arteriosclerosis of Coronary Artery History of Stroke Recurrent Falls Seizure ([facility]) Chronic Bronchitis, Unspecified Chronic Bronchitis Type ([facility]) Current Outpatient Medications Medication Sig acetaminophen-codeine (TYLENOL-COD #3) 300-30 mg per tablet Take 1 tablet by mouth at bedtime as needed for pain for up to 30 days. aspirin, enteric coated (JOSE LOW DOSE ASPIRIN) 81 mg EC tablet Take 1 tablet by mouth once daily. carvedilol (COREG) 12.5 mg tablet Take 1 tablet by mouth two times a day with meals. sertraline (ZOLOFT) 100 mg tablet Take 2 tablets by mouth once daily. atorvastatin (LIPITOR) 20 mg tablet Take 1 tablet by mouth once daily. levETIRAcetam (KEPPRA) 500 mg tablet Take 0.5 tablets by mouth two times a day. clopidogrel (PLAVIX) 75 mg tablet Take 1 tablet by mouth once daily. levothyroxine (SYNTHROID) 50 mcg tablet Take 1 tablet by mouth once daily. on an empty stomach 1/2 hour before meal. furosemide (LASIX) 20 mg tablet take 1 tablet by mouth once daily if needed spironolactone (ALDACTONE) 25 mg tablet Take 1 tablet by mouth once daily. albuterol HFA (VENTOLIN HFA) 90 mcg/actuation inhaler Inhale 2 Puffs as instructed every 4 hours as needed for wheezing/shortness of breath. multivitamin tablet Take 1 tablet by mouth once daily. albuterol (PROVENTIL) 2.5 mg /3 mL (0.083 %) nebulizer solution Use 3 mL via nebulizer every 6 hours as needed for wheezing/shortness of breath. Use over 5-15minutes. nystatin (MYCOSTATIN) powder Apply 1 application to affected area two times a day. COMPOUNDED PRESCRIPTION Oxygen Portable tanks (D tanks [...] facility-administered medications for this visit. Objective BP 134/72 Pulse 84 Wt 63.5 kg (139 lb 15.9 oz) SpO2 96% BMI 24.96 kg/m? Physical Exam Constitutional: General: She is not in acu (more content not included)... Normal [facility] Silver[facility] 07-07-2024 [facility] DALIA LOPEZ ([id number]) 1950 F Date Time Provider Department 07/07/24 LENIN BHATT [facility] During your visit today, we recorded the following information about you: Gem Em LPN 07/07/2024 9:43 AM Signed Vika Speech Threrapist from [facility] HH calls states speech therapy eval will be post poned due to son's request. Needs to notify you of this due to medicare guidelines. Allergies As of Date: 07/07/2024 (No Known Allergies) Date Reviewed: 05/24/2024 Reviewed by: Jo Moore MA - Fully Assessed Reason for Visit: Patient Update [1234] Prescriptions as of 07/07/2024 - albuterol HFA (VENTOLIN HFA) 90 mcg/actuation inhaler Inhale 2 Puffs as instructed every 4 hours as needed for wheezing/shortness of breath. - trospium (SANCTURA) 20 mg tablet TAKE 1 TABLET BY MOUTH TWICE A DAY - acetaminophen-codeine (TYLENOL-COD #3) 300-30 mg per [...] wheezing/shortness of breath. Use over 5-15minutes. - furosemide (LASIX) 20 mg tablet take [...] CHF, bronchospasm. Problem List As Of Date 07/07/2024 Noted Resolved Aphasia, late effect of cerebrovascular [...] Diagnosed: 06/10/2023 Chronic bronchitis, unspecified chronic bronchi*06/10/2023 Encounter Status:Closed by MOIRA HEARN on 07/07/24 Normal [facility] levETIRAcetam SerPl-mCncon 1 09-06-2023 levETIRAcetam [Mass/Vol] 15.6 ug/mL Normal 12.0-46.0 [facility] Comment on above: Order Comment: Speci men Type: BLOOD SPECIMEN Ordering Facility: [facility] Address: [address] [place] [address] Result Comment: This test is not suitable for patients receiving treatment with the drug brivaracetam (Briviact). The drug causes an interference that may lead to falsely elevated levetiracetam results. Reference ranges and high/low indicator flags are provided as general guidelines only. The treating physician must determine appropriate target levels/dosing based on the specific clinical situation. This test was developed, and its performance characteristics determined by the [facility] Department of Pathology and Laboratory Medicine. It has not been cleared or approved by the FDA. The [facility] Department of Pathology and Laboratory Medicine is regulated under CLIA as qualified to perform high-complexity testing. This test is used for clinical purposes. It should not be regarded as investigational or for research. Performed By: #### 4 537-7, 57389-7 #### [facility] CLIA [id number] [address] [place] [address] [place] Basic Metabolic Profile (BMP )on 07-06-2024 BUN Normal 7-18 [facility] Comment on above: Result Comment: Canc elled via OM: Order cancelled - Patient discharged Performed By: #### L 500.2500, L100.0100 #### [facility] [address] [place], [address] BUN/CRE Normal 10-20 [facility] Comment on above: Result Comment: Canc elled via OM: Order cancelled - Patient discharged Performed By: #### L 500.2500, L100.0100 #### [facility] [address] [place], [address] CA,Total Normal 8.5-10.1 [facility] Comment on above: Result Comment: Canc elled via OM: Order cancelled - Patient discharged Performed By: #### L 500.2500, L100.0100 #### [facility] [address] [place], [address] CL Normal 98-107 [facility] Comment on above: Result Comment: Canc elled via OM: Order cancelled - Patient discharged Performed By: #### L 500.2500, L100.0100 #### [facility] [address] [place], [address] CO2 Normal 21.0-32.0 [facility] Comment on above: Result Comment: Canc elled via OM: Order cancelled - Patient discharged Performed By: #### L 500.2500, L100.0100 #### [facility] [address] [place], [address] CREAT,SERUM Normal 0.55-1.02 [facility] Comment on above: Result Comment: Canc elled via OM: Order cancelled - Patient discharged Performed By: #### L 500.2500, L100.0100 #### [facility] [address] [place], [address] EST GFR Normal >60 [facility] Comment on above: Result Comment: Canc elled via OM: Order cancelled - Patient discharged Performed By: #### L 500.2500, L100.0100 #### [facility] [address] [place], [address] EST GFR - AA Normal >60 [facility] Comment on above: Result Comment: Canc elled via OM: Order cancelled - Patient discharged Performed By: #### L 500.2500, L100.0100 #### [facility] [address] [place], [address] GAP Normal 5-15 [facility] Comment on above: Result Comment: Canc elled via OM: Order cancelled - Patient discharged Performed By: #### L 500.2500, L100.0100 #### [facility] [address] [place], [address] GLU Normal 74-106 [facility] Comment on above: Result Comment: Canc elled via OM: Order cancelled - Patient discharged Performed By: #### L 500.2500, L100.0100 #### [facility] [address] [place], [address] Potassium Normal 3.5-5.1 [facility] Comment on above: Result Comment: Canc elled via OM: Order cancelled - Patient discharged Performed By: #### L 500.2500, L100.0100 #### [facility] [address] [place], [address] Basic Metabolic Profile (BMP) Normal 136-145 [facility] Comment on above: Result Comment: Canc elled via OM: Order cancelled - Patient discharged Performed By: #### L 500.2500, L100.0100 #### [facility] [address] [place], [address] CBC W/Diff, Automatedon 11-0 -2023 Absolute Neut Normal 2.0-7.7 [facility] Comment on above: Result Comment: Canc elled via OM: Order cancelled - Patient discharged Performed By: #### L 500.2500, L100.0100 #### [facility] [address] [place], [address] HCT Normal 37-47 [facility] Comment on above: Result Comment: Canc elled via OM: Order cancelled - Patient discharged Performed By: #### L 500.2500, L100.0100 #### [facility] [address] [place], [address] HGB Normal 12.0-15.0 [facility] Comment on above: Result Comment: Canc elled via OM: Order cancelled - Patient discharged Performed By: #### L 500.2500, L100.0100 #### [facility] [address] [place], [address] MCH Normal 27.0-32.0 [facility] Comment on above: Result Comment: Canc elled via OM: Order cancelled - Patient discharged Performed By: #### L 500.2500, L100.0100 #### [facility] [address] [place], [address] MCHC Normal 32-36 [facility] Comment on above: Result Comment: Canc elled via OM: Order cancelled - Patient discharged Performed By: #### L 500.2500, L100.0100 #### [facility] [address] [place], [address] MCV Normal 81-99 [facility] Comment on above: Result Comment: Canc elled via OM: Order cancelled - Patient discharged Performed By: #### L 500.2500, L100.0100 #### [facility] [address] [place], [address] NEUT% Normal 47-70 [facility] Comment on above: Result Comment: Canc elled via OM: Order cancelled - Patient discharged Performed By: #### L 500.2500, L100.0100 #### [facility] [address] [place], [address] PLT Normal 150-450 [facility] Comment on above: Result Comment: Canc elled via OM: Order cancelled - Patient discharged Performed By: #### L 500.2500, L100.0100 #### [facility] [address] [place], [address] RBC Normal 4.2-5.4 [facility] Comment on above: Result Comment: Canc elled via OM: Order cancelled - Patient discharged Performed By: #### L 500.2500, L100.0100 #### [facility] [address] [place], [address] RDW CV Normal 11.6-14.6 [facility] Comment on above: Result Comment: Canc elled via OM: Order cancelled - Patient discharged Performed By: #### L 500.2500, L100.0100 #### [facility] [address] [place], [address] RDW SD Normal 35.1-43.9 [facility] Comment on above: Result Comment: Canc elled via OM: Order cancelled - Patient discharged Performed By: #### L 500.2500, L100.0100 #### [facility] [address] [place], [address] WBC Normal 4.4-11.0 [facility] Comment on above: Result Comment: Canc elled via OM: Order cancelled - Patient discharged Performed By: #### L 500.2500, L100.0100 #### [facility] [address] [place], [address] CNPNon 07-05-2024 [facility] (INTM[facility] DALIA LOPEZ ([id number]) 1950 F Date Time Provider Department 07/05/24 LENIN BHATT INTMWS During your visit today, we recorded the following information about you: Edmund Gomes RN 07/05/2024 3:28 PM Signed tamara [facility]rehealth and safety coordinator @ [facility] calling for verbal okay for delay of care. PT/ST will see patient on 07/10/24 per patient request. . WHITLEY Landa Naz M, APRN.[employer] 07/05/2024 4:29 PM Signed Raj Hearn APRN.Edmund Mcgee RN 07/05/2024 4:34 PM Signed Left provider message for Bettie on secure voice mail. Edmund Gomes RN Allergies As of Date: 07/05/2024 (No Known Allergies) Date Reviewed: 05/24/2024 Reviewed by: Jo Moore MA - Fully Assessed Reason for Visit: Home Health update [Other] Prescriptions as of 07/05/2024 - albuterol HFA (VENTOLIN HFA) 90 mcg/actuation inhaler Inhale 2 Puffs as instructed every 4 hours as needed for wheezing/shortness of breath. - trospium (SANCTURA) 20 mg tablet TAKE 1 TABLET BY MOUTH TWICE A DAY - acetaminophen-codeine (TYLENOL-COD #3) 300-30 mg per [...] wheezing/shortness of breath. Use over 5-15minutes. - furosemide (LASIX) 20 mg tablet take [...] CHF, bronchospasm. Problem List As Of Date 07/05/2024 Noted Resolved Aphasia, late effect of cerebrovascular disease*07/20/2016 Late effects of CVA (cerebrovascular accident) *07/20/2016 Essential hypertension [I10] 07/20/2016 Seizure as late effect of cerebrovascular accid*07/20/2016 PVD (peripheral vascular disease) ([facility]) [I73.9] 07/20/2016 Acquired hypothyroidism [E03.9] [...] depressive di*07/15/2021 Sacral decubitus ulcer, stage II ([facility]) [L89.152]03/04/2023 12/09/2023 Kidney insufficiency [N28.9] 03/04/2023 Bacteriuria [...] chronic bronchi*06/10/2023 (more content not included)... Normal [facility]04[facility]20[facility] DALIA LOPEZ ([id number]) 1950 F Date Time Provider Department 07/04/24 [facility]ENIN BHATT [facility] During your visit today, we recorded the following information about you: Magdalena Graham LPN 07/04/2024 10:13 AM Signed Darius with [facility] Nursing is calling to report she is with pt today and reviewing medication list from hospital discharge to pt's [facility] med list. Darius is asking for the followin) Order for inhaler 2) The hospital discharged pt with an order for Yariel-supplement because pt has wounds. Insurance will not cover Yariel and Darius is asking for something comparable. Pharmacy updated. EMILIANO Flynn Naz M, APRN.JUSTICE 07/04/2024 1:23 PM Signed They will need to find out from insurance what nutrition supplement drinks are covered Moira Hearn APRN.Sheila Madrigal LPN 07/04/2024 2:10 PM Signed Left message for Nurse to call office and speak to nurse. Elmira Shah LPN, LPN 07/05/2024 3:15 PM Signed Left a message for Darius to call the office. EMILIANO Diaz Helen E, LPN 07/06/2024 2:33 PM Signed Called [facility], spoke to Darius Stovall Nursing, given below msg, she will check with family on what nutritional supplement is covered. Sherrie Orona LPN, RN 07/06/2024 3:36 PM Addendum Josie Stovall's phone # is [phone]. Allergies As of Date: 07/04/2024 (No Known Allergies) Date Reviewed: 05/24/2024 Reviewed by: Jo Moore MA - Fully Assessed Reason for Visit: Orders [681] Visit Diagnosis:Chronic bronchitis, unspecified chronic bronchitis type (HCC) [J42] Order(s):albuterol HFA (VENTOLIN HFA) 90 mcg/actuation inhalerInhale 2 Puffs as instructed every 4 hours as needed for wheezing/shortness of breath.Disp: 1 EachRfl: 1 Prescriptions as of 07/13/2024 - albuterol HFA (VENTOLIN HFA) 90 mcg/actuation inhaler Inhale 2 Puffs as instructed every 4 hours as needed for wheezing/shortness of breath. - acetaminophen-codeine (TYLENOL-COD #3) 300-30 mg per [...] wheezing/shortness of breath. Use over 5-15minutes. - furosemide (LASIX) 20 mg tablet take [...] CHF, bronchospasm. Problem List As Of Date 07/04/2024 Noted Resolved Aphasia, late effect of cerebrovascular disease*07/20/2016 Late effects of CVA (cerebrovascular accident) *07/20/2016 Essential hypertension [I10] 07/20/2016 Seizure as late effect of cerebrovascular accid*07/20/2016 PVD (peripheral vascular disease) ([facility]) [I73.9] 07/20/2016 Acquired hypothyroidism [E03.9] [...] di*07/15/2021 Sacral decubitus ulcer, stage II (HCC) [L89.1 (more content not included)... Normal [facility] 07-03-2024 [facility] Telephone ([facility]) DALIA LOPEZ ([id number]) 1950 F Date Time Provider Department 07/03/24 [facility] During your visit today, we recorded the following information about you: Sherrie Guadarrama, RN 07/03/2024 9:35 AM Signed [facility]- reports pt will be d/c'd today from [facility] to home w/son, with orders for C PT OT [facility]. Dx: Acute Kidney Injury and effects from previous stroke. Asking if pcp is willing to follow? Please phone [facility] with verbal: [phone] Moira Hearn, AMBULATORY ANALYST.[employer] 07/03/2024 1:34 PM Signed PCP agrees and will follow Moira Hearn APRN.Gloria Matamoros RN 07/03/2024 2:28 PM Signed Bettie- [facility] called and is notified of providers message. She voices understanding and will put in orders. Gloria Martinez RN Allergies As of Date: 07/03/2024 (No Known Allergies) Date Reviewed: 05/24/2024 Reviewed by: Jo Moore MA - Fully Assessed Reason for Visit: [facility]- agree to follow for orders [Other] Prescriptions as of 07/03/2024 - trospium (SANCTURA) 20 mg tablet TAKE 1 TABLET BY MOUTH TWICE A DAY - acetaminophen-codeine (TYLENOL-COD #3) 300-30 mg per [...] CHF, bronchospasm. 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 Normal [facility] Basic Metabolic Profile (BMP )on 06-29-2024 BUN/CRE 40.2 RATIO High 10-20 [facility] Comment on above: Performed By: #### L 400.0001 #### [facility] [address] [place], [address] CA,Total 9.3 mg/dL Normal 8.5-10.1 [facility] Comment on above: Performed By: #### L 400.0001 #### [facility] [address] [place], [address] Chloride [Moles/Vol] 103 mmol/L Normal 98-107 [facility] Comment on above: Performed By: #### L 400.0001 #### [facility] [address] [place], [address] CO2 [Moles/Vol] 33.0 mmol/L High 21.0-32.0 [facility] Comment on above: Performed By: #### L 400.0001 #### [facility] [address] [place], [address] Creatinine [Mass/Vol] 1.02 mg/dL Normal 0.55-1.02 [facility] Comment on above: Result Comment: The validity of the calculated GFR GFRAA in patients over 70 years has not been determined. Clinical correlation is essential. Performed By: #### L 400.0001 #### [facility] [address] [place], [address] ECRCL 42.42 ml/min Normal [facility] Comment on above: Performed By: #### L 400.0001 #### [facility] [address] [place], [address] EST GFR - AA 68 mL/min Normal >60 [facility] Comment on above: Result Comment: Afri can Senegalese GFR Calc Performed By: #### L 400.0001 #### [facility] [address] [place], [address] GAP 3 Low 5-15 [facility] Comment on above: Performed By: #### L 400.0001 #### [facility] [address] [place], [address] GFR/1.73 sq M.predicted among non-blacks MDRD (S/P/Bld) [Vol rate/Area] 56 mL/min/{1.73_m2} Low >60 [facility] Comment on above: Result Comment: Non- GFR Calc Performed By: #### L 400.0001 #### [facility] [address] [place], [address] Glucose [Mass/Vol] 130 mg/dL High 74-106 [facility] Comment on above: Result Comment: Fast ing Glucose result greater than or equal to 126 mg/dL suggests DIABETES MELLITUS per A.D.A. criteria. Performed By: #### L 400.0001 #### [facility] [address] [place], [address] Potassium [Moles/Vol] 4.4 mmol/L Normal 3.5-5.1 [facility] Comment on above: Performed By: #### L 400.0001 #### [facility] [address] [place], [address] Sodium [Moles/Vol] 138 mmol/L Normal 136-145 [facility] Comment on above: Performed By: #### L 400.0001 #### [facility] [address] [place], [address] Urea nitrogen [Mass/Vol] 41 mg/dL High 7-18 [facility] Comment on above: Performed By: #### L 400.0001 #### [facility] [address] [place], [address] CBC W/Diff, Automatedon 10-3 Absolute Lymph 1.86 X10 3/uL Normal 0.83-4.51 [facility] Comment on above: Performed By: #### L 500.2500, L100.0100 #### [facility] [address] [place], [address] Absolute Neut 4.7 X10 3/uL Normal 2.0-7.7 [facility] Comment on above: Performed By: #### L 500.2500, L100.0100 #### [facility] [address] [place], [address] Basophils/100 WBC (Bld) 0.9 % Normal 0-1 [facility] Comment on above: Performed By: #### L 500.2500, L100.0100 #### [facility] [address] [place], [address] Eosinophils/100 WBC (Bld) 4.2 % Normal 0-5 [facility] Comment on above: Performed By: #### L 500.2500, L100.0100 #### [facility] [address] [place], [address] Erythrocyte distribution width (RBC) [Ratio] 19.0 % High 11.6-14.6 [facility] Comment on above: Performed By: #### L 500.2500, L100.0100 #### [facility] [address] [place], [address] Hematocrit (Bld) [Volume fraction] 31.6 % Low 37-47 [facility] Comment on above: Performed By: #### L 500.2500, L100.0100 #### [facility] [address] [place], [address] Hemoglobin (Bld) [Mass/Vol] 9.3 g/dL Low 12.0-15.0 [facility] Comment on above: Performed By: #### L 500.2500, L100.0100 #### [facility] [address] [place], [address] IG% 0.400 Normal 0.0-0.9 [facility] Comment on above: Result Comment: IG% - Immature Granulocytes (promyelocytes, myelocytes and metamyelocytes) > 1% indicates that a LEFT SHIFT is Present. Performed By: #### L 500.2500, L100.0100 #### [facility] [address] [place], [address] Lymphocytes/100 WBC (Bld) 24.2 % Normal 19-41 [facility] Comment on above: Performed By: #### L 500.2500, L100.0100 #### [facility] [address] [place], [address] MCH (RBC) [Entitic mass] 24.8 pg Low 27.0-32.0 [facility] Comment on above: Performed By: #### L 500.2500, L100.0100 #### [facility] [address] [place], [address] MCHC (RBC) [Mass/Vol] 29.4 g/dL Low 32-36 [facility] Comment on above: Performed By: #### L 500.2500, L100.0100 #### [facility] [address] [place], [address] MCV (RBC) [Entitic vol] 84.3 fL Normal 81-99 [facility] Comment on above: Performed By: #### L 500.2500, L100.0100 #### [facility] [address] [place], [address] Monocytes/100 WBC (Bld) 9.4 % Normal 0-10 [facility] Comment on above: Performed By: #### L 500.2500, L100.0100 #### [facility] [address] [place], [address] Neutrophils/100 WBC (Bld) 60.9 % Normal 47-70 [facility] Comment on above: Performed By: #### L 500.2500, L100.0100 #### [facility] [address] [place], [address] Nucleated RBC (Bld) [#/Vol] 0 10*3/uL Normal 0-5 [facility] Comment on above: Performed By: #### L 500.2500, L100.0100 #### [facility] [address] [place], [address] Platelet mean volume (Bld) [Entitic vol] 9.9 fL Normal 6.2-12.0 [facility] Comment on above: Performed By: #### L 500.2500, L100.0100 #### [facility] [address] [place], [address] Platelets (Bld) [#/Vol] 333 10*3/uL Normal 150-450 [facility] Comment on above: Performed By: #### L 500.2500, L100.0100 #### [facility] [address] [place], [address] RBC (Bld) [#/Vol] 3.75 10*6/uL Low 4.2-5.4 [facility] Comment on above: Performed By: #### L 500.2500, L100.0100 #### [facility] [address] [place], [address] RDW SD 52.1 fl High 35.1-43.9 [facility] Comment on above: Performed By: #### L 500.2500, L100.0100 #### [facility] [address] [place], [address] WBC (Bld) [#/Vol] 7.7 10*3/uL Normal 4.4-11.0 [facility] Comment on above: Performed By: #### L 500.2500, L100.0100 #### [facility] [address] [place], [address] HH, Hemoglobin AND Hematocri ton 06-26-2024 Hematocrit (Bld) [Volume fraction] 31.2 % Low 37-47 [facility] Comment on above: Performed By: #### L 100.0600 #### [facility] [address] [place], [address] Hemoglobin (Bld) [Mass/Vol] 9.5 g/dL Low 12.0-15.0 [facility] Comment on above: Performed By: #### L 100.0600 #### [facility] [address] [place], [address] Lipid Profileon 06-25-2024 Cholesterol [Mass/Vol] 112 mg/dL Normal 200 [facility] Comment on above: Result Comment: <200 mg/dL Desirable 200-240 mg/dL Borderline >240 mg/dL High Risk Performed By: #### L 400.0001 #### [facility] [address] [place], [address] Cholesterol in HDL [Mass/Vol] 43 mg/dL Normal [facility] Comment on above: Result Comment: The drugs N-Acetylcysteine and Metamizole may falsely depress this assay. Reference Range HDL <40 mg/dL Low HDL Cholesterol HDL >or= 60 mg/dL High HDL Cholesterol Performed By: #### L 400.0001 #### [facility] [address] [place], [address] Cholesterol in LDL [Mass/Vol] 42 mg/dL Normal 0-130 [facility] Comment on above: Performed By: #### L 400.0001 #### [facility] [address] [place], [address] Cholesterol in VLDL [Mass/Vol] 27 mg/dL Normal 5-40 [facility] Comment on above: Performed By: #### L 400.0001 #### [facility] [address] [place], [address] Triglyceride [Mass/Vol] 136 mg/dL Normal [facility] Comment on above: Result Comment: The drugs N-Acetylcysteine and Metamizole may falsely depress this assay. Serum Triglycerides Reference Interval Normal <150 mg/dL Borderline high 150 - 199 mg/dL High 200 - 499 mg/dL Very High > or = 500 mg/dL Performed By: #### L 400.0001 #### [facility] [address] [place], [address] HH, Hemoglobin AND Hematocri ton 06-24-2024 Hematocrit (Bld) [Volume fraction] 28.7 % Low 37-47 [facility] Comment on above: Performed By: #### L 100.0600 #### [facility] [address] [place], [address] Hemoglobin (Bld) [Mass/Vol] 8.7 g/dL Low 12.0-15.0 [facility] Comment on above: Performed By: #### L 100.0600 #### [facility] [address] [place], [address] Basic Metabolic Profile (BMP )on 06-22-2024 BUN/CRE 30.6 RATIO High 10-20 [facility] Comment on above: Performed By: #### L 100.0100, L500.2500 #### [facility] [address] [place], [address] CA,Total 8.9 mg/dL Normal 8.5-10.1 [facility] Comment on above: Performed By: #### L 100.0100, L500.2500 #### [facility] [address] [place], [address] Chloride [Moles/Vol] 110 mmol/L High 98-107 [facility] Comment on above: Performed By: #### L 100.0100, L500.2500 #### [facility] [address] [place], [address] CO2 [Moles/Vol] 28.0 mmol/L Normal 21.0-32.0 [facility] Comment on above: Performed By: #### L 100.0100, L500.2500 #### [facility] [address] [place], [address] Creatinine [Mass/Vol] 1.11 mg/dL High 0.55-1.02 [facility] Comment on above: Result Comment: The validity of the calculated GFR GFRAA in patients over 70 years has not been determined. Clinical correlation is essential. Performed By: #### L 100.0100, L500.2500 #### [facility] [address] [place], [address] ECRCL 38.98 ml/min Normal [facility] Comment on above: Performed By: #### L 100.0100, L500.2500 #### [facility] [address] [place], [address] EST GFR - AA 62 mL/min Normal >60 [facility] Comment on above: Result Comment: Afri can Seneg[place] GFR Calc Performed By: #### L 100.0100, L500.2500 #### [facility] [address] [place], [address] GAP 3 Low 5-15 [facility] Comment on above: Performed By: #### L 100.0100, L500.2500 #### [facility] [address] [place], [address] GFR/1.73 sq M.predicted among non-blacks MDRD (S/P/Bld) [Vol rate/Area] 51 mL/min/{1.73_m2} Low >60 [facility] Comment on above: Result Comment: Non- GFR Calc Performed By: #### L 100.0100, L500.2500 #### [facility] [address] [place], [address] Glucose [Mass/Vol] 123 mg/dL High 74-106 [facility] Comment on above: Result Comment: Fast ing Glucose result from 100 to 125 mg/dL suggests IMPAIRED HOMEOSTASIS per A.D.A. criteria. Performed By: #### L 100.0100, L500.2500 #### [facility] [address] [place], [address] Potassium [Moles/Vol] 3.5 mmol/L Normal 3.5-5.1 [facility] Comment on above: Performed By: #### L 100.0100, L500.2500 #### [facility] [address] [place], [address] Sodium [Moles/Vol] 141 mmol/L Normal 136-145 [facility] Comment on above: Performed By: #### L 100.0100, L500.2500 #### [facility] [address] [place], [address] Urea nitrogen [Mass/Vol] 34 mg/dL High 7-18 [facility] Comment on above: Performed By: #### L 100.0100, L500.2500 #### [facility] [address] [place], [address] CBC W/Diff, Automatedon 10-2 -2023 Absolute Lymph 1.25 X10 3/uL Normal 0.83-4.51 [facility] Comment on above: Performed By: #### L 100.0100, L500.2500 #### [facility] [address] [place], [address] Absolute Neut 5.6 X10 3/uL Normal 2.0-7.7 [facility] Comment on above: Performed By: #### L 100.0100, L500.2500 #### [facility] [address] [place], [address] Basophils/100 WBC (Bld) 0.6 % Normal 0-1 [facility] Comment on above: Performed By: #### L 100.0100, L500.2500 #### [facility] [address] [place], [address] Eosinophils/100 WBC (Bld) 3.1 % Normal 0-5 [facility] Comment on above: Performed By: #### L 100.0100, L500.2500 #### [facility] [address] [place], [address] Erythrocyte distribution width (RBC) [Ratio] 16.5 % High 11.6-14.6 [facility] Comment on above: Performed By: #### L 100.0100, L500.2500 #### [facility] [address] [place], [address] Hematocrit (Bld) [Volume fraction] 29.3 % Low 37-47 [facility] Comment on above: Performed By: #### L 100.0100, L500.2500 #### [facility] [address] [place], [address] Hemoglobin (Bld) [Mass/Vol] 8.7 g/dL Low 12.0-15.0 [facility] Comment on above: Performed By: #### L 100.0100, L500.2500 #### [facility] [address] [place], [address] IG% 0.500 Normal 0.0-0.9 [facility] Comment on above: Result Comment: IG% - Immature Granulocytes (promyelocytes, myelocytes and metamyelocytes) > 1% indicates that a LEFT SHIFT is Present. Performed By: #### L 100.0100, L500.2500 #### [facility] [address] [place], [address] Lymphocytes/100 WBC (Bld) 16.0 % Low 19-41 [facility] Comment on above: Performed By: #### L 100.0100, L500.2500 #### [facility] [address] [place], [address] MCH (RBC) [Entitic mass] 24.2 pg Low 27.0-32.0 [facility] Comment on above: Performed By: #### L 100.0100, L500.2500 #### [facility] [address] [place], [address] MCHC (RBC) [Mass/Vol] 29.7 g/dL Low 32-36 [facility] Comment on above: Performed By: #### L 100.0100, L500.2500 #### [facility] [address] [place], [address] MCV (RBC) [Entitic vol] 81.6 fL Normal 81-99 [facility] Comment on above: Performed By: #### L 100.0100, L500.2500 #### [facility] [address] [place], [address] Monocytes/100 WBC (Bld) 8.2 % Normal 0-10 [facility] Comment on above: Performed By: #### L 100.0100, L500.2500 #### [facility] [address] [place], [address] Neutrophils/100 WBC (Bld) 71.6 % High 47-70 [facility] Comment on above: Performed By: #### L 100.0100, L500.2500 #### [facility] [address] [place], [address] Nucleated RBC (Bld) [#/Vol] 0 10*3/uL Normal 0-5 [facility] Comment on above: Performed By: #### L 100.0100, L500.2500 #### [facility] [address] [place], [address] Platelet mean volume (Bld) [Entitic vol] 9.9 fL Normal 6.2-12.0 [facility] Comment on above: Performed By: #### L 100.0100, L500.2500 #### [facility] [address] [place], [address] Platelets (Bld) [#/Vol] 299 10*3/uL Normal 150-450 [facility] Comment on above: Performed By: #### L 100.0100, L500.2500 #### [facility] [address] [place], [address] RBC (Bld) [#/Vol] 3.59 10*6/uL Low 4.2-5.4 [facility] Comment on above: Performed By: #### L 100.0100, L500.2500 #### [facility] [address] [place], [address] RDW SD 48.7 fl High 35.1-43.9 [facility] Comment on above: Performed By: #### L 100.0100, L500.2500 #### [facility] [address] [place], [address] WBC (Bld) [#/Vol] 7.8 10*3/uL Normal 4.4-11.0 [facility] Comment on above: Performed By: #### L 100.0100, L500.2500 #### [facility] [address] [place], [address] Basic Metabolic Profile (BMP )on 06-21-2024 BUN/CRE 33.3 RATIO High 10-20 [facility] Comment on above: Performed By: #### L 400.0001 #### [facility] [address] [place], [address] CA,Total 9.1 mg/dL Normal 8.5-10.1 [facility] Comment on above: Performed By: #### L 400.0001 #### [facility] [address] [place], [address] Chloride [Moles/Vol] 108 mmol/L High 98-107 [facility] Comment on above: Performed By: #### L 400.0001 #### [facility] [address] [place], [address] CO2 [Moles/Vol] 28.0 mmol/L Normal 21.0-32.0 [facility] [facility] Comment on above: Performed By: #### L 400.0001 #### [facility] [address] [place], [address] Creatinine [Mass/Vol] 1.17 mg/dL High 0.55-1.02 [facility] Comment on above: Result Comment: The validity of the calculated GFR GFRAA in patients over 70 years has not been determined. Clinical correlation is essential. Performed By: #### L 400.0001 #### [facility] [address] [place], [address] ECRCL 36.98 ml/min Normal [facility] Comment on above: Performed By: #### L 400.0001 #### [facility] [address] [place], [address] EST GFR - AA 58 mL/min Low >60 [facility] Comment on above: Result Comment: Afri can Senegalese GFR Calc Performed By: #### L 400.0001 #### [facility] [address] [place], [address] GAP 3 Low 5-15 [facility] Comment on above: Performed By: #### L 400.0001 #### [facility] [address] [place], [address] GFR/1.73 sq M.predicted among non-blacks MDRD (S/P/Bld) [Vol rate/Area] 48 mL/min/{1.73_m2} Low >60 [facility] Comment on above: Result Comment: Non- GFR Calc Performed By: #### L 400.0001 #### [facility] [address] [place], [address] Glucose [Mass/Vol] 113 mg/dL High 74-106 [facility] Comment on above: Result Comment: Fast ing Glucose result from 100 to 125 mg/dL suggests IMPAIRED HOMEOSTASIS per A.D.A. criteria. Performed By: #### L 400.0001 #### [facility] [address] [place], [address] Potassium [Moles/Vol] 4.0 mmol/L Normal 3.5-5.1 [facility] Comment on above: Performed By: #### L 400.0001 #### [facility] [address] [place], [address] Sodium [Moles/Vol] 138 mmol/L Normal 136-145 [facility] Comment on above: Performed By: #### L 400.0001 #### [facility] [address] [place], [address] Urea nitrogen [Mass/Vol] 39 mg/dL High 7-18 [facility] Comment on above: Performed By: #### L 400.0001 #### [facility] [address] [place], [address] CBC W/Diff, Automatedon 10-2 -2023 Absolute Lymph 1.54 X10 3/uL Normal 0.83-4.51 [facility] Comment on above: Performed By: #### L 400.0001 #### [facility] [address] [place], [address] Absolute Neut 6.7 X10 3/uL Normal 2.0-7.7 [facility] Comment on above: Performed By: #### L 400.0001 #### [facility] [address] [place], [address] Basophils/100 WBC (Bld) 0.8 % Normal 0-1 [facility] Comment on above: Performed By: #### L 400.0001 #### [facility] [address] [place], [address] Eosinophils/100 WBC (Bld) 2.6 % Normal 0-5 [facility] Comment on above: Performed By: #### L 400.0001 #### [facility] [address] [place], [address] Erythrocyte distribution width (RBC) [Ratio] 16.2 % High 11.6-14.6 [facility] Comment on above: Performed By: #### L 400.0001 #### [facility] [address] [place], [address] Hematocrit (Bld) [Volume fraction] 29.2 % Low 37-47 [facility] Comment on above: Performed By: #### L 400.0001 #### [facility] [address] [place], [address] Hemoglobin (Bld) [Mass/Vol] 8.9 g/dL Low 12.0-15.0 [facility] Comment on above: Performed By: #### L 400.0001 #### [facility] [address] [place], [address] IG% 0.400 Normal 0.0-0.9 [facility] Comment on above: Result Comment: IG% - Immature Granulocytes (promyelocytes, myelocytes and metamyelocytes) > 1% indicates that a LEFT SHIFT is Present. Performed By: #### L 400.0001 #### [facility] [address] [place], [address] Lymphocytes/100 WBC (Bld) 16.5 % Low 19-41 [facility] Comment on above: Performed By: #### L 400.0001 #### [facility] [address] [place], [address] MCH (RBC) [Entitic mass] 25.0 pg Low 27.0-32.0 [facility] Comment on above: Performed By: #### L 400.0001 #### [facility] [address] [place], [address] MCHC (RBC) [Mass/Vol] 30.5 g/dL Low 32-36 [facility] Comment on above: Performed By: #### L 400.0001 #### [facility] [address] [place], [address] MCV (RBC) [Entitic vol] 82.0 fL Normal 81-99 [facility] Comment on above: Performed By: #### L 400.0001 #### [facility] [address] [place], [address] Monocytes/100 WBC (Bld) 8.3 % Normal 0-10 [facility] Comment on above: Performed By: #### L 400.0001 #### [facility] [address] [place], [address] Neutrophils/100 WBC (Bld) 71.4 % High 47-70 [facility] Comment on above: Performed By: #### L 400.0001 #### [facility] [address] [place], [address] Nucleated RBC (Bld) [#/Vol] 0 10*3/uL Normal 0-5 [facility] Comment on above: Performed By: #### L 400.0001 #### [facility] [address] [place], [address] Platelet mean volume (Bld) [Entitic vol] 10.5 fL Normal 6.2-12.0 [facility] Comment on above: Performed By: #### L 400.0001 #### [facility] [address] [place], [address] Platelets (Bld) [#/Vol] 317 10*3/uL Normal 150-450 [facility] Comment on above: Performed By: #### L 400.0001 #### [facility] [address] [place], [address] RBC (Bld) [#/Vol] 3.56 10*6/uL Low 4.2-5.4 [facility] [place] Comment on above: Performed By: #### L 400.0001 #### [facility] [address] [place], [address] RDW SD 48.2 fl High 35.1-43.9 [facility] Comment on above: Performed By: #### L 400.0001 #### [facility] [address] [place], [address] WBC (Bld) [#/Vol] 9.3 10*3/uL Normal 4.4-11.0 [facility] Comment on above: Performed By: #### L 400.0001 #### [facility] [address] [place], [address] Basic Metabolic Profile (BMP )on 06-20-2024 BUN/CRE 30.8 RATIO High 10-20 [facility] Comment on above: Performed By: #### L 500.2500, L100.0100 #### [facility] [address] [place], [address] CA,Total 9.0 mg/dL Normal 8.5-10.1 [facility] Comment on above: Performed By: #### L 500.2500, L100.0100 #### [facility] [address] [place], [address] Chloride [Moles/Vol] 113 mmol/L High 98-107 [facility] Comment on above: Performed By: #### L 500.2500, L100.0100 #### [facility] [address] [place], [address] CO2 [Moles/Vol] 25.0 mmol/L Normal 21.0-32.0 [facility] Comment on above: Performed By: #### L 500.2500, L100.0100 #### [facility] [address] [place], [address] Creatinine [Mass/Vol] 1.04 mg/dL High 0.55-1.02 [facility] Comment on above: Result Comment: The validity of the calculated GFR GFRAA in patients over 70 years has not been determined. Clinical correlation is essential. Performed By: #### L 500.2500, L100.0100 #### [facility] [address] [place], [address] ECRCL 41.60 ml/min Normal [facility] Comment on above: Performed By: #### L 500.2500, L100.0100 #### [facility] [address] [place], [address] EST GFR - AA 67 mL/min Normal >60 [facility] Comment on above: Result Comment: Afri can [place]eg[place] GFR Calc Performed By: #### L 500.2500, L100.0100 #### [facility] [address] [place], [address] GAP 4 Low 5-15 [facility] Comment on above: Performed By: #### L 500.2500, L100.0100 #### [facility] [address] [place], [address] GFR/1.73 sq M.predicted among non-blacks MDRD (S/P/Bld) [Vol rate/Area] 55 mL/min/{1.73_m2} Low >60 [facility] Comment on above: Result Comment: Non- GFR Calc Performed By: #### L 500.2500, L100.0100 #### [facility] [address] [place], [address] Glucose [Mass/Vol] 111 mg/dL High 74-106 [facility] Comment on above: Result Comment: Fast ing Glucose result from 100 to 125 mg/dL suggests IMPAIRED HOMEOSTASIS per A.D.A. criteria. Performed By: #### L 500.2500, L100.0100 #### [facility] [address] [place], [address] Potassium [Moles/Vol] 3.9 mmol/L Normal 3.5-5.1 [facility] Comment on above: Performed By: #### L 500.2500, L100.0100 #### [facility] [address] [place], [address] Sodium [Moles/Vol] 142 mmol/L Normal 136-145 [facility] Comment on above: Performed By: #### L 500.2500, L100.0100 #### [facility] [address] [place], [address] Urea nitrogen [Mass/Vol] 32 mg/dL High 7-18 [facility] Comment on above: Performed By: #### L 500.2500, L100.0100 #### [facility] [address] [place], [address] CBC W/Diff, Automatedon 10-2 -2023 Absolute Lymph 1.21 X10 3/uL Normal 0.83-4.51 [facility] Comment on above: Performed By: #### L 500.2500, L100.0100 #### [facility] [address] [place], [address] Absolute Neut 5.0 X10 3/uL Normal 2.0-7.7 [facility] Comment on above: Performed By: #### L 500.2500, L100.0100 #### [facility] [address] [place], [address] Basophils/100 WBC (Bld) 0.7 % Normal 0-1 [facility] Comment on above: Performed By: #### L 500.2500, L100.0100 #### [facility] [address] [place], [address] Eosinophils/100 WBC (Bld) 3.0 % Normal 0-5 [facility] Comment on above: Performed By: #### L 500.2500, L100.0100 #### [facility] [address] [place], [address] Erythrocyte distribution width (RBC) [Ratio] 16.2 % High 11.6-14.6 [facility] Comment on above: Performed By: #### L 500.2500, L100.0100 #### [facility] [address] [place], [address] Hematocrit (Bld) [Volume fraction] 30.1 % Low 37-47 [facility] Comment on above: Performed By: #### L 500.2500, L100.0100 #### [facility] [address] [place], [address] Hemoglobin (Bld) [Mass/Vol] 8.7 g/dL Low 12.0-15.0 [facility] Comment on above: Performed By: #### L 500.2500, L100.0100 #### [facility] [address] [place], [address] IG% 0.400 Normal 0.0-0.9 [facility] Comment on above: Result Comment: IG% - Immature Granulocytes (promyelocytes, myelocytes and metamyelocytes) > 1% indicates that a LEFT SHIFT is Present. Performed By: #### L 500.2500, L100.0100 #### [facility] [address] [place], [address] Lymphocytes/100 WBC (Bld) 16.8 % Low 19-41 [facility] Comment on above: Performed By: #### L 500.2500, L100.0100 #### [facility] [address] [place], [address] MCH (RBC) [Entitic mass] 24.1 pg Low 27.0-32.0 [facility] Comment on above: Performed By: #### L 500.2500, L100.0100 #### [facility] [address] [place], [address] MCHC (RBC) [Mass/Vol] 28.9 g/dL Low 32-36 [facility] Comment on above: Performed By: #### L 500.2500, L100.0100 #### [facility] [address] [place], [address] MCV (RBC) [Entitic vol] 83.4 fL Normal 81-99 [facility] Comment on above: Performed By: #### L 500.2500, L100.0100 #### [facility] [address] [place], [address] Monocytes/100 WBC (Bld) 9.7 % Normal 0-10 [facility] Comment on above: Performed By: #### L 500.2500, L100.0100 #### [facility] [address] [place], [address] Neutrophils/100 WBC (Bld) 69.4 % Normal 47-70 [facility] Comment on above: Performed By: #### L 500.2500, L100.0100 #### [facility] [address] [place], [address] Nucleated RBC (Bld) [#/Vol] 0 10*3/uL Normal 0-5 [facility] Comment on above: Performed By: #### L 500.2500, L100.0100 #### [facility] [address] [place], [address] Platelet mean volume (Bld) [Entitic vol] 10.3 fL Normal 6.2-12.0 [facility] Comment on above: Performed By: #### L 500.2500, L100.0100 #### [facility] [address] [place], [address] Platelets (Bld) [#/Vol] 302 10*3/uL Normal 150-450 [facility] Comment on above: Performed By: #### L 500.2500, L100.0100 #### [facility] [address] [place], [address] RBC (Bld) [#/Vol] 3.61 10*6/uL Low 4.2-5.4 [facility] [place] Comment on above: Performed By: #### L 500.2500, L100.0100 #### [facility] [address] [place], [address] RDW SD 49.1 fl High 35.1-43.9 [facility] Comment on above: Performed By: #### L 500.2500, L100.0100 #### [facility] [address] [place], [address] WBC (Bld) [#/Vol] 7.2 10*3/uL Normal 4.4-11.0 [facility] Comment on above: Performed By: #### L 500.2500, L100.0100 #### [facility] [address] [place], [address] Basic Metabolic Profile (BMP )on 06-19-2024 BUN/CRE 16.2 RATIO Normal - [facility] Comment on above: Performed By: #### L 100.0100, L500.2500 #### [facility] [address] [place], [address] CA,Total 8.1 mg/dL Low 8.5-10.1 [facility] Comment on above: Performed By: #### L 100.0100, L500.2500 #### [facility] [address] [place], [address] Chloride [Moles/Vol] 114 mmol/L High 98-107 [facility] Comment on above: Performed By: #### L 100.0100, L500.2500 #### [facility] [address] [place], [address] CO2 [Moles/Vol] 23.0 mmol/L Normal 21.0-32.0 [facility] Comment on above: Performed By: #### L 100.0100, L500.2500 #### [facility] [address] [place], [address] Creatinine [Mass/Vol] 1.17 mg/dL High 0.55-1.02 [facility] Comment on above: Result Comment: The validity of the calculated GFR GFRAA in patients over 70 years has not been determined. Clinical correlation is essential. Performed By: #### L 100.0100, L500.2500 #### [facility] [address] [place], [address] ECRCL 36.98 ml/min Normal [facility] Comment on above: Performed By: #### L 100.0100, L500.2500 #### [facility] [address] [place], [address] EST GFR - AA 58 mL/min Low >60 [facility] Comment on above: Result Comment: Afri can [place] GFR Calc Performed By: #### L 100.0100, L500.2500 #### [facility] [address] [place], [address] GAP 4 Low 5-15 [facility] Comment on above: Performed By: #### L 100.0100, L500.2500 #### [facility] [address] [place], [address] GFR/1.73 sq M.predicted among non-blacks MDRD (S/P/Bld) [Vol rate/Area] 48 mL/min/{1.73_m2} Low >60 [facility] Comment on above: Result Comment: Non- GFR Calc Performed By: #### L 100.0100, L500.2500 #### [facility] [address] [place], [address] Glucose [Mass/Vol] 127 mg/dL High 74-106 [facility] Comment on above: Result Comment: Fast ing Glucose result greater than or equal to 126 mg/dL suggests DIABETES MELLITUS per A.D.A. criteria. Performed By: #### L 100.0100, L500.2500 #### [facility] [address] [place], [address] Potassium [Moles/Vol] 3.7 mmol/L Normal 3.5-5.1 [facility] Comment on above: Performed By: #### L 100.0100, L500.2500 #### [facility] [address] [place], [address] Sodium [Moles/Vol] 141 mmol/L Normal 136-145 [facility] Comment on above: Performed By: #### L 100.0100, L500.2500 #### [facility] [address] [place], [address] Urea nitrogen [Mass/Vol] 19 mg/dL High 7-18 [facility] Comment on above: Performed By: #### L 100.0100, L500.2500 #### [facility] [address] [place], [address] CBC W/Diff, Automatedon 10-2 -2023 Absolute Lymph 1.22 X10 3/uL Normal 0.83-4.51 [facility] Comment on above: Performed By: #### L 400.0001 #### [facility] [address] [place], [address] Absolute Neut 6.3 X10 3/uL Normal 2.0-7.7 [facility] Comment on above: Performed By: #### L 400.0001 #### [facility] [address] [place], [address] Basophils/100 WBC (Bld) 0.2 % Normal 0-1 [facility] Comment on above: Performed By: #### L 400.0001 #### [facility] [address] [place], [address] Eosinophils/100 WBC (Bld) 1.6 % Normal 0-5 [facility] Comment on above: Performed By: #### L 400.0001 #### [facility] [address] [place], [address] Erythrocyte distribution width (RBC) [Ratio] 16.0 % High 11.6-14.6 [facility] Comment on above: Performed By: #### L 400.0001 #### [facility] [address] [place], [address] Hematocrit (Bld) [Volume fraction] 29.1 % Low 37-47 [facility] Comment on above: Performed By: #### L 400.0001 #### [facility] [address] [place], [address] Hemoglobin (Bld) [Mass/Vol] 8.9 g/dL Low 12.0-15.0 [facility] Comment on above: Performed By: #### L 400.0001 #### [facility] [address] [place], [address] IG% 0.400 Normal 0.0-0.9 [facility] Comment on above: Result Comment: IG% - Immature Granulocytes (promyelocytes, myelocytes and metamyelocytes) > 1% indicates that a LEFT SHIFT is Present. Performed By: #### L 400.0001 #### [facility] [address] [place], [address] Lymphocytes/100 WBC (Bld) 14.6 % Low 19-41 [facility] Comment on above: Performed By: #### L 400.0001 #### [facility] [address] [place], [address] MCH (RBC) [Entitic mass] 24.9 pg Low 27.0-32.0 [facility] Comment on above: Performed By: #### L 400.0001 #### [facility] [address] [place], [address] MCHC (RBC) [Mass/Vol] 30.6 g/dL Low 32-36 [facility] Comment on above: Performed By: #### L 400.0001 #### [facility] [address] [place], [address] MCV (RBC) [Entitic vol] 81.3 fL Normal 81-99 [facility] Comment on above: Performed By: #### L 400.0001 #### [facility] [address] [place], [address] Monocytes/100 WBC (Bld) 7.4 % Normal 0-10 [facility] Comment on above: Performed By: #### L 400.0001 #### [facility] [address] [place], [address] Neutrophils/100 WBC (Bld) 75.8 % High 47-70 [facility] Comment on above: Performed By: #### L 400.0001 #### [facility] [address] [place], [address] Nucleated RBC (Bld) [#/Vol] 0 10*3/uL Normal 0-5 [facility] Comment on above: Performed By: #### L 400.0001 #### [facility] [address] [place], [address] Platelet mean volume (Bld) [Entitic vol] 10.3 fL Normal 6.2-12.0 [facility] Comment on above: Performed By: #### L 400.0001 #### [facility] [address] [place], [address] Platelets (Bld) [#/Vol] 311 10*3/uL Normal 150-450 [facility] Comment on above: Performed By: #### L 400.0001 #### [facility] [address] [place], [address] RBC (Bld) [#/Vol] 3.58 10*6/uL Low 4.2-5.4 [facility] [place] Comment on above: Performed By: #### L 400.0001 #### [facility] [address] [place], [address] RDW SD 47.5 fl High 35.1-43.9 [facility] Comment on above: Performed By: #### L 400.0001 #### [facility] [address] [place], [address] WBC (Bld) [#/Vol] 8.4 10*3/uL Normal 4.4-11.0 [facility] Comment on above: Performed By: #### L 400.0001 #### [facility] [address] [place], [address] CNPNon 06-19-2024 [facility] DALIA LOPEZ ([id number]) 1950 F Date Time Provider Department 06/19/24 LENIN BHATT INTWS During your visit today, we recorded the following information about you: Grace Johnston LPN 06/19/2024 9:56 AM Signed Patient son William Patel calling mother had fall in the home and was taken to [facility]. she was admitted kidney function problems, taken off Spironolactone. Not sure when she will be discharged. Lenin Bhatt MD 06/19/2024 3:24 PM Signed Okay. HANDP noted. Allergies As of Date: 06/19/2024 (No Known Allergies) Date Reviewed: 05/24/2024 Reviewed by: Jo Moore MA - Fully Assessed Reason for Visit: Patient Update [1234] Prescriptions as of 06/19/2024 - trospium (SANCTURA) 20 mg tablet TAKE 1 TABLET BY MOUTH TWICE A DAY - acetaminophen-codeine (TYLENOL-COD #3) 300-30 mg per [...] CHF, bronchospasm. Problem List As Of Date 06/19/2024 Noted Resolved Aphasia, late effect of cerebrovascular disease*07/20/2016 Late effects of CVA (cerebrovascular accident) *07/20/2016 Essential hypertension [I10] 07/20/2016 Seizure as late effect of cerebrovascular accid*07/20/2016 PVD (peripheral vascular disease) ([facility]) [I73.9] 07/20/2016 Acquired hypothyroidism [E03.9] [...] Diagnosed: 06/10/2023 Chronic bronchitis, unspecified chronic bronchi*06/10/2023 Encounter Status:Closed by LENIN BHATT on 06/19/24 Normal [facility] Basic Metabolic Profile (BMP )on 06-18-2024 BUN/CRE 18.3 RATIO Normal 06-18 [facility] Comment on above: Performed By: #### L 100.0100, L500.2500 #### [facility] [facility] [address] [place], [address] CA,Total 8.3 mg/dL Low 8.5-10.1 [facility] Comment on above: Performed By: #### L 100.0100, L500.2500 #### [facility] [address] [place], [address] Chloride [Moles/Vol] 115 mmol/L High 98-107 [facility] Comment on above: Performed By: #### L 100.0100, L500.2500 #### [facility] [address] [place], [address] CO2 [Moles/Vol] 24.0 mmol/L Normal 21.0-32.0 [facility] Comment on above: Performed By: #### L 100.0100, L500.2500 #### [facility] [address] [place], [address] Creatinine [Mass/Vol] 1.31 mg/dL High 0.55-1.02 [facility] Comment on above: Result Comment: The validity of the calculated GFR GFRAA in patients over 70 years has not been determined. Clinical correlation is essential. Performed By: #### L 100.0100, L500.2500 #### [facility] [address] [place], [address] ECRCL 33.03 ml/min Normal [facility] Comment on above: Performed By: #### L 100.0100, L500.2500 #### [facility] [address] [place], [address] EST GFR - AA 51 mL/min Low >60 [facility] Comment on above: Result Comment: Afri can Senegalese GFR Calc Performed By: #### L 100.0100, L500.2500 #### [facility] [address] [place], [address] GAP 3 Low 5-15 [facility] Comment on above: Performed By: #### L 100.0100, L500.2500 #### [facility] [address] [place], [address] GFR/1.73 sq M.predicted among non-blacks MDRD (S/P/Bld) [Vol rate/Area] 42 mL/min/{1.73_m2} Low >60 [facility] Comment on above: Result Comment: Non- GFR Calc Performed By: #### L 100.0100, L500.2500 #### [facility] [address] [place], [address] Glucose [Mass/Vol] 150 mg/dL High 74-106 [facility] Comment on above: Result Comment: Fast ing Glucose result greater than or equal to 126 mg/dL suggests DIABETES MELLITUS per A.D.A. criteria. Performed By: #### L 100.0100, L500.2500 #### [facility] [address] [place], [address] Potassium [Moles/Vol] 3.7 mmol/L Normal 3.5-5.1 [facility] Comment on above: Performed By: #### L 100.0100, L500.2500 #### [facility] [address] [place], [address] Sodium [Moles/Vol] 142 mmol/L Normal 136-145 [facility] Comment on above: Performed By: #### L 100.0100, L500.2500 #### [facility] [address] [place], [address] Urea nitrogen [Mass/Vol] 24 mg/dL High 7-18 [facility] Comment on above: Performed By: #### L 100.0100, L500.2500 #### [facility] [address] [place], [address] CBC W/Diff, Automatedon 10-2 0-4 Absolute Lymph 1.15 X10 3/uL Normal 0.83-4.51 [facility] Comment on above: Performed By: #### L 100.0100, L500.2500 #### [facility] [address] [place], [address] Absolute Neut 5.2 X10 3/uL Normal 2.0-7.7 [facility] Comment on above: Performed By: #### L 100.0100, L500.2500 #### [facility] [address] [place], [address] Basophils/100 WBC (Bld) 0.7 % Normal 0-1 [facility] Comment on above: Performed By: #### L 100.0100, L500.2500 #### [facility] [address] [place], [address] Eosinophils/100 WBC (Bld) 2.5 % Normal 0-5 [facility] Comment on above: Performed By: #### L 100.0100, L500.2500 #### [facility] [address] [place], [address] Erythrocyte distribution width (RBC) [Ratio] 16.0 % High 11.6-14.6 [facility] Comment on above: Performed By: #### L 100.0100, L500.2500 #### [facility] [address] [place], [address] Hematocrit (Bld) [Volume fraction] 31.9 % Low 37-47 [facility] Comment on above: Performed By: #### L 100.0100, L500.2500 #### [facility] [address] [place], [address] Hemoglobin (Bld) [Mass/Vol] 9.6 g/dL Low 12.0-15.0 [facility] Comment on above: Performed By: #### L 100.0100, L500.2500 #### [facility] [address] [facility] [place], [address] IG% 0.400 Normal 0.0-0.9 [facility] Comment on above: Result Comment: IG% - Immature Granulocytes (promyelocytes, myelocytes and metamyelocytes) > 1% indicates that a LEFT SHIFT is Present. Performed By: #### L 100.0100, L500.2500 #### [facility] [address] [place], [address] Lymphocytes/100 WBC (Bld) 16.2 % Low 19-41 [facility] Comment on above: Performed By: #### L 100.0100, L500.2500 #### [facility] [address] [place], [address] MCH (RBC) [Entitic mass] 24.4 pg Low 27.0-32.0 [facility] Comment on above: Performed By: #### L 100.0100, L500.2500 #### [facility] [address] [place], [address] MCHC (RBC) [Mass/Vol] 30.1 g/dL Low 32-36 [facility] Comment on above: Performed By: #### L 100.0100, L500.2500 #### [facility] [address] [place], [address] MCV (RBC) [Entitic vol] 81.2 fL Normal 81-99 [facility] Comment on above: Performed By: #### L 100.0100, L500.2500 #### [facility] [address] [place], [address] Monocytes/100 WBC (Bld) 7.4 % Normal 0-10 [facility] Comment on above: Performed By: #### L 100.0100, L500.2500 #### [facility] [address] [place], [address] Neutrophils/100 WBC (Bld) 72.8 % High 47-70 [facility] Comment on above: Performed By: #### L 100.0100, L500.2500 #### [facility] [address] [place], [address] Nucleated RBC (Bld) [#/Vol] 0 10*3/uL Normal 0-5 [facility] Comment on above: Performed By: #### L 100.0100, L500.2500 #### [facility] [address] [place], [address] Platelet mean volume (Bld) [Entitic vol] 9.9 fL Normal 6.2-12.0 [facility] Comment on above: Performed By: #### L 100.0100, L500.2500 #### [facility] [address] [place], [address] Platelets (Bld) [#/Vol] 314 10*3/uL Normal 150-450 [facility] Comment on above: Performed By: #### L 100.0100, L500.2500 #### [facility] [address] [place], [address] RBC (Bld) [#/Vol] 3.93 10*6/uL Low 4.2-5.4 [facility] [place] Comment on above: Performed By: #### L 100.0100, L500.2500 #### [facility] [address] [place], [address] RDW SD 47.3 fl High 35.1-43.9 [facility] Comment on above: Performed By: #### L 100.0100, L500.2500 #### [facility] [address] [place], [address] WBC (Bld) [#/Vol] 7.1 10*3/uL Normal 4.4-11.0 [facility] Comment on above: Performed By: #### L 100.0100, L500.2500 #### [facility] [address] [place], [address] Ferritinon 06-18-2024 Ferritin [Mass/Vol] 16 ng/mL Normal 8-252 [facility] [place] Comment on above: Performed By: #### L 100.0100, L500.2500 #### [facility] [address] [place], [address] Iron+Iron Binding Capacityon 06-18-2024 Iron [Mass/Vol] 25 ug/dL Low 50-170 [facility] Comment on above: Performed By: #### L 100.0100, L500.2500 #### [facility] [address] [place], [address] IRON SATURATION 7.9 Low 15.0-55.0 [facility] Comment on above: Performed By: #### L 100.0100, L500.2500 #### [facility] [address] [place], [address] TIBC 318 ug/dL Normal 250-450 [facility] Comment on above: Performed By: #### L 100.0100, L500.2500 #### [facility] [address] [place], [address] Urinalysis, Completeon 06-18 URIC CRYSTALS 1+ /hpf Normal [facility] Comment on above: Order Comment: SENT LABEL TO PCU TO COLLECT PATTERNMAKER WOOD TO SPECIFY Performed By: #### L 400.0001 #### [facility] [address] [place], [address] BACTERIA 4+ /hpf Normal None Seen [facility] Comment on above: Order Comment: SENT LABEL TO PCU TO COLLECT PATTERNMAKER WOOD TO SPECIFY Performed By: #### L 400.0001 #### [facility] [address] [place], [address] EPI,SQUAMOUS 5-10 SEEN Normal 5-10 [facility] Comment on above: Order Comment: SENT LABEL TO PCU TO COLLECT PATTERNMAKER WOOD TO SPECIFY Performed By: #### L 400.0001 #### [facility] [address] [place], [address] Mucus Ql (Urine sed) 1+ /hpf Normal [facility] Comment on above: Order Comment: SENT LABEL TO PCU TO COLLECT PATTERNMAKER WOOD TO SPECIFY Performed By: #### L 400.0001 #### [facility] [address] [place], [address] RBC 0-5 SEEN Normal 0-5 [facility] Comment on above: Order Comment: SENT LABEL TO PCU TO COLLECT PATTERNMAKER WOOD TO SPECIFY Performed By: #### L 400.0001 #### [facility] [address] [place], [address] WBC 5-10 SEEN Normal 0-5 [facility] Comment on above: Order Comment: SENT LABEL TO PCU TO COLLECT PATTERNMAKER WOOD TO SPECIFY Performed By: #### L 400.0001 #### [facility] [address] [place], [address] Basic Metabolic Profile (BMP )on 06-17-2024 BUN/CRE 18.5 RATIO Normal - [facility] Comment on above: Performed By: #### L 100.0100, L500.2500 #### [facility] [address] [place], [address] CA,Total 8.9 mg/dL Normal 8.5-10.1 [facility] Comment on above: Performed By: #### L 100.0100, L500.2500 #### [facility] [address] [place], [address] Chloride [Moles/Vol] 112 mmol/L High 98-107 [facility] Comment on above: Performed By: #### L 100.0100, L500.2500 #### [facility] [address] [place], [address] CO2 [Moles/Vol] 24.0 mmol/L Normal 21.0-32.0 [facility] Comment on above: Performed By: #### L 100.0100, L500.2500 #### [facility] [address] [place], [address] Creatinine [Mass/Vol] 1.84 mg/dL High 0.55-1.02 [facility] Comment on above: Result Comment: The validity of the calculated GFR GFRAA in patients over 70 years has not been determined. Clinical correlation is essential. Performed By: #### L 100.0100, L500.2500 #### [facility] [address] [place], [address] ECRCL 23.51 ml/min Normal [facility] Comment on above: Performed By: #### L 100.0100, L500.2500 #### [facility] [address] [place], [address] EST GFR - AA 35 mL/min Low >60 [facility] Comment on above: Result Comment: Afri can Senegalese GFR Calc Performed By: #### L 100.0100, L500.2500 #### [facility] [address] [place], [address] GAP 6 Normal 5-15 [facility] Comment on above: Performed By: #### L 100.0100, L500.2500 #### [facility] [address] [place], [address] GFR/1.73 sq M.predicted among non-blacks MDRD (S/P/Bld) [Vol rate/Area] 29 mL/min/{1.73_m2} Low >60 [facility] Comment on above: Result Comment: Non- GFR Calc Performed By: #### L 100.0100, L500.2500 #### [facility] [address] [place], [address] Glucose [Mass/Vol] 132 mg/dL High 74-106 [facility] Comment on above: Result Comment: Fast ing Glucose result greater than or equal to 126 mg/dL suggests DIABETES MELLITUS per A.D.A. criteria. Performed By: #### L 100.0100, L500.2500 #### [facility] [address] [place], [address] Potassium [Moles/Vol] 4.1 mmol/L Normal 3.5-5.1 [facility] Comment on above: Performed By: #### L 100.0100, L500.2500 #### [facility] [address] [place], [address] Sodium [Moles/Vol] 142 mmol/L Normal 136-145 [facility] Comment on above: Performed By: #### L 100.0100, L500.2500 #### [facility] [address] [place], [address] Urea nitrogen [Mass/Vol] 34 mg/dL High 7-18 [facility] Comment on above: Performed By: #### L 100.0100, L500.2500 #### [facility] [address] [place], [address] Brain/Head without Contrasto n 06-17-2024 Brain/Head without Contrast [facility] Imaging Services [place], [place] [address] Brain/Head without Contrast MR#: [id number] Acct: [id number] Name: DALIA LOPEZ Rep #: [id number] : 1950 F 73 From: Benja loving MD PCP: Dr. Lenin Bhatt MD Status: REG ER Study: Brain/Head without Contrast Date of Exam: 05/30 05/23 Exam# [id number] Ordering Dr: Alphonso Man DO [id number] EXAMINATION : Head CT w/out contrast HISTORY : fall COMPARISON : 06/12/2024. TECHNIQUE : Multiple contiguous axial images were obtained from the skull base to the vertex without intravenous contrast. A radiation dose optimization technique was used for this scan. FINDINGS : There is no evidence for acute intracranial hemorrhage, mass effect, or midline shift. There is no extra-axial fluid collection. There are periventricular white matter changes consistent with chronic microvascular ischemic disease. There is sulcal widening and ventricular enlargement consistent with cerebral atrophy. There is normal terrazas-white differentiation, without CT evidence of acute ischemia or infarct. Left frontotemporal encephalomalacia. The skull base and calvarium are unremarkable. The orbits are unremarkable. The paranasal sinuses are clear. The mastoid air cells are well-aerated. The soft tissues are unremarkable. CT/Brain/Head without Contrast IMPRESSION: No acute intracranial abnormality. Left frontotemporal encephalomalacia. Chronic involutional and ischemic changes of the brain. Electronically Signed: Benja Pennington MD at 11:18 EDT , CC: Dr. Alphonso Man DO; Dr. 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, [address] Absolute Neut 5.9 X10 3/uL Normal 2.0-7.7 [facility] Comment on above: Performed By: #### L 100.0100, L500.2500 #### [facility] [address] [place], [address] Basophils/100 WBC (Bld) 0.6 % Normal 0-1 [facility] Comment on above: Performed By: #### L 100.0100, L500.2500 #### [facility] [address] [place], [address] Eosinophils/100 WBC (Bld) 1.9 % Normal 0-5 [facility] Comment on above: Performed By: #### L 100.0100, L500.2500 #### [facility] [address] [place], [address] Erythrocyte distribution width (RBC) [Ratio] 16.2 % High 11.6-14.6 [facility] Comment on above: Performed By: #### L 100.0100, L500.2500 #### [facility] [address] [place], [address] Hematocrit (Bld) [Volume fraction] 36.7 % Low 37-47 [facility] Comment on above: Performed By: #### L 100.0100, L500.2500 #### [facility] [address] [place], [address] Hemoglobin (Bld) [Mass/Vol] 10.8 g/dL Low 12.0-15.0 [facility] Comment on above: Performed By: #### L 100.0100, L500.2500 #### [facility] [address] [place], [address] IG% 0.400 Normal 0.0-0.9 [facility] Comment on above: Result Comment: IG% - Immature Granulocytes (promyelocytes, myelocytes and metamyelocytes) > 1% indicates that a LEFT SHIFT is Present. Performed By: #### L 100.0100, L500.2500 #### [facility] [address] [place], [address] Lymphocytes/100 WBC (Bld) 14.3 % Low 19-41 [facility] Comment on above: Performed By: #### L 100.0100, L500.2500 #### [facility] [address] [place], [address] MCH (RBC) [Entitic mass] 24.1 pg Low 27.0-32.0 [facility] Comment on above: Performed By: #### L 100.0100, L500.2500 #### [facility] [address] [place], [address] MCHC (RBC) [Mass/Vol] 29.4 g/dL Low 32-36 [facility] Comment on above: Performed By: #### L 100.0100, L500.2500 #### [facility] [address] [place], [address] MCV (RBC) [Entitic vol] 81.7 fL Normal 81-99 [facility] Comment on above: Performed By: #### L 100.0100, L500.2500 #### [facility] [address] [place], [address] Monocytes/100 WBC (Bld) 6.8 % Normal 0-10 [facility] Comment on above: Performed By: #### L 100.0100, L500.2500 #### [facility] [address] [place], [address] Neutrophils/100 WBC (Bld) 76.0 % High 47-70 [facility] Comment on above: Performed By: #### L 100.0100, L500.2500 #### [facility] [address] [place], [address] Nucleated RBC (Bld) [#/Vol] 0 10*3/uL Normal 0-5 [facility] Comment on above: Performed By: #### L 100.0100, L500.2500 #### [facility] [address] [place], [address] Platelet mean volume (Bld) [Entitic vol] 10.2 fL Normal 6.2-12.0 [facility] Comment on above: Performed By: #### L 100.0100, L500.2500 #### [facility] [address] [place], [address] Platelets (Bld) [#/Vol] 323 10*3/uL Normal 150-450 [facility] Comment on above: Performed By: #### L 100.0100, L500.2500 #### [facility] [address] [place], [address] RBC (Bld) [#/Vol] 4.49 10*6/uL Normal 4.2-5.4 [facility] Comment on above: Performed By: #### L 100.0100, L500.2500 #### [facility] [address] [place], [address] RDW SD 48.0 fl High 35.1-43.9 [facility] Comment on above: Performed By: #### L 100.0100, L500.2500 #### [facility] [address] [place], [address] WBC (Bld) [#/Vol] 7.8 10*3/uL Normal 4.4-11.0 [facility] Comment on above: Performed By: #### L 100.0100, L500.2500 #### [facility] [address] [place], [address] Emergency Department Summary on 06-17-[address] [facility] Medical Records Department [address] [place] [address] Emergency Department Summary 06/17/24 MR#: [id number] Acct: [id number] Name: DALIA LOPEZ Rep #: [id number] : 1950 73 From: Alphonso Man DO PCP: Dr. Lenin Bhatt MD Status:ADM IN Location: [address] History of Present Illness Chief Complaint: Fall Detail of Chief Complaint: Fall with head injury Informant: patient Narrative Narrative: Patient presents to the emergency department after sustaining a fall around 9:30 AM. Patient apparently was on the couch when she tried to sit up and fell off the couch. Patient states she hit her head on an end table. No loss of consciousness. She complains of slight headache. She denies recent illness. Patient apparently had a visit to our emergency department 5 days ago for similar fall. She complains of some mild right hip pain from prior fall. Patient sometimes can ambulate with a rollator if the son is present who is her main caregiver. [facility] Medical History (Updated 06/17/24 @ 12:[address] Alphonso Man DO) Debility Sacral decubitus ulcer, stage III History of stroke HTN (hypertension) Hypothyroid Depression Seizure CAD (coronary artery disease) Hyperlipemia COVID-19 Iron deficiency anemia Heart failure Vertigo Home Medications ???Medication ???Instructions ???Recorded ???Last Taken ???Type atorvastatin 20 mg tablet 20 mg PO QHS cholesterol 08/17/18 08/27/20 History clopidogrel 75 mg tablet 75 mg PO DAILY 08/17/18 08/28/20 History levetiracetam 500 mg tablet 500 mg PO BID seizures 08/17/18 08/28/20 History levothyroxine 50 mcg tablet 50 mcg PO DAILY Thyroid 08/17/18 08/28/20 History sertraline 100 mg tablet 150 mg PO QHS depression 08/17/18 08/27/20 History aspirin 81 mg tablet,delayed 81 mg PO DAILY@0800 08/28/20 08/28/20 History release carvedilol 12.5 mg tablet 12.5 mg PO BID heart 08/28/20 08/28/20 History multivitamin-iron 9 mg-folic acid 1 tab PO DAILY supplement 08/28/20 08/28/20 History 400 mcg-calcium and minerals tablet lisinopril 5 mg tablet 5 mg PO QHS bp ##0 08/31/20 08/27/20 Rx albuterol sulfate 2.5 mg/3 mL 1.25 mg inhalation Q6H PRN 03/25/23 Unknown History (0.083 %) solution for nebulization shortness of breath or wheezing albuterol sulfate 90 mcg/actuation 2 inh inhalation Q4H PRN shortness 03/25/23 Unknown History aerosol inhaler (ProAir HFA) of breath or wheezing furosemide 20 mg tablet 20 mg PO DAILY 03/25/23 Unknown History spironolactone 25 mg tablet 25 mg PO DAILY 03/25/23 Unknown History (Aldactone) acetaminophen 325 mg tablet 650 mg (2 x 325 mg) PO Q6H PRN 06/12/24 Unknown Rx (Tylenol) pain #240 tabs ciprofloxacin HCl 500 mg tablet 500 mg PO BID #14 TABLETS 06/12/24 Unknown Rx ibuprofen 400 mg tablet 400 mg PO Q6H PRN pain 30 days 06/12/24 Unknown Rx #120 tabs oxycodone 5 mg tablet 5 mg PO Q6H PRN pain 4 days #16 06/12/24 Unknown Rx tabs Allergy/AdvReac Type Severity Reaction Status Date / Time No Known Allergies Allergy Verified 06/17/24 10:24 Social History (Updated 06/17/24 @ 10:27 by Tita Garcia) household members: children housing: house current occupational status: retired Smoking Status: Unknown if ever smoked ROS ROS ED Review of Systems ROS Unobtainable: other Constitutional Constitutional ED: Reports lethargy; Denies chills, fever(s), sweats or weight loss Eyes Eyes: Denies blurry vision, change in vision or diplopia ENT ENT ED: Denies rhinorrhea or sore throat Cardiovascular Cardiovascular: Denies chest pain, orthopnea or racing heartbeat Respiratory/Chest Respiratory/Chest: Denies cough, dyspnea, dyspnea on exertion, orthopnea or sputum Gastrointestinal Gastrointestinal: Denies abdominal pain, diarrhea, nausea or vomiting Genitourinary Genitourinary ED: Denies dysuria, hematuria or urinary frequency Musculoskeletal Musculoskeletal: Denies arthralgias, back pain, myalgias or neck pain Integumentary Denies abscess, Abrasions or rash Neurologic Neurologic: Reports headache(s); Denies weakness Psychiatric Psychiatric: Denies anxiety, depression or suicidal thoughts Endocrine Endocrinology: Denies polydipsia, polyphagia or polyuria Hematologic/Lymphatic Hematologic/Lymphatic : Denies easy bleeding, easy bruising or lymphadenopathy Allergic/Immunologic Allergic/Immunologic ED: Denies mouth swelling, tongue swelling or urticaria EXAM Physical Exam Const Vital Signs: 06/17/24 10:19 06/17/24 10:28 06/17/24 12:08 Temperature 98.5 F Temperature Source Oral Pulse Rate 93 Respiratory Rate 24 H Respiratory Effort Normal Non-Labored Respiratory Depth Normal Respiratory Pattern Normal Blood Pressure 127/55 H Blood Pressure Mean 79 Pulse Ox 94 94 (more content not included)... Normal [facility] H AND P Exam - [facility] 06-17-2024 H&P Exam - Hospitalist [facility] Medical Records Department [address] [place] [address] H P Exam - Hospitalist 06/17/24 1522 MR#: [id number] Acct: [id number] Name: DALIA LOPEZ Rep #: [id number] : 1950 73 From: Eric Bay MD PCP: Dr. Lenin Bhatt MD Status:ADM IN Location: [address] HPI - General General Date of Admission: 06/17/24 HPI Narrative DALIA LOPEZ, is a 73 F who presents to the hospital after repeat fall. She was seen about 5 days ago after she had a fall at home and her son brought her in, she was evaluated at that time and may have had a borderline UTI, no cultures were done but she was started on Cipro p.o. twice daily. After x-rays were obtained that showed no fracture or injury, she was discharged home. She presents today after having another mechanical fall at home and just having increased weakness. Imaging studies today did not demonstrate any fractures however does demonstrate an THEODORE. Her Lasix and lisinopril have been discontinued on admission she will be started on IV fluids. A urinalysis is pending to see if there continues to be the possibility of a UTI and if so we will obtain a urine culture. [facility] Medical History Debility Sacral decubitus ulcer, stage III History of stroke HTN (hypertension) Hypothyroid Depression Seizure CAD (coronary artery disease) Hyperlipemia COVID-19 Iron deficiency anemia Heart failure Vertigo Home Medications ???Medication ???Instructions ???Recorded ???Last Taken ???Type atorvastatin 20 mg tablet 20 mg PO QHS cholesterol 08/17/18 06/16/24 History clopidogrel 75 mg tablet 75 mg PO DAILY 08/17/18 06/16/24 History levetiracetam 500 mg tablet 500 mg PO BID seizures 08/17/18 06/16/24 History levothyroxine 50 mcg tablet 50 mcg PO DAILY Thyroid 08/17/18 06/16/24 History sertraline 100 mg tablet 150 mg PO QHS depression 08/17/18 06/16/24 History aspirin 81 mg tablet,delayed 81 mg PO DAILY@0800 08/28/20 06/16/24 History release carvedilol 12.5 mg tablet 12.5 mg PO BID heart 08/28/20 06/16/24 History multivitamin-iron 9 mg-folic acid 1 tab PO DAILY supplement 08/28/20 06/16/24 History 400 mcg-calcium and minerals tablet lisinopril 5 mg tablet 5 mg PO QHS bp ##0 08/31/20 06/16/24 Rx albuterol sulfate 2.5 mg/3 mL 1.25 mg inhalation Q6H PRN 03/25/23 06/16/24 History (0.083 %) solution for nebulization shortness of breath or wheezing furosemide 20 mg tablet 20 mg PO DAILY 03/25/23 06/16/24 History spironolactone 25 mg tablet 25 mg PO DAILY 03/25/23 06/16/24 History (Aldactone) ciprofloxacin HCl 500 mg tablet 500 mg PO BID #14 TABLETS 06/12/24 06/16/24 Rx ibuprofen 400 mg tablet 400 mg PO Q6H PRN pain 30 days 06/12/24 06/16/24 Rx #120 tabs oxycodone 5 mg tablet 5 mg PO Q6H PRN pain 4 days #16 06/12/24 06/16/24 Rx tabs acetaminophen 300 mg-codeine 30 mg 1 tab PO QHS PRN pain 06/17/24 06/16/24 History tablet albuterol sulfate 90 mcg/actuation 2 inh inhalation Q4H PRN shortness 06/17/24 06/16/24 History aerosol inhaler (Ventolin HFA) of breath or wheezing Allergy/AdvReac Type Severity Reaction Status Date / Time No Known Allergies Allergy Verified 06/17/24 10: Family History (Updated 06/17/24 @ 17:[address] Eric Bay MD) Other Cancer Kidney disease Surgical History (Updated 06/17/24 @ 17:[address] Eric Bay MD) H/O hysterectomy with oophorectomy Social History (Updated 06/17/24 @ 10:27 by Tita Garcia) household members: children housing: house current occupational status: retired Smoking Status: Unknown if ever smoked ROS Constitutional Constitutional: Reports weakness; Denies chills, fatigue, fever(s) or malaise Eyes Eyes: Denies blurry vision ENT HEENT: Denies headache(s) or nasal discharge Cardiovascular Cardiovascular: Denies chest pain, dyspnea on exertion or syncope Respiratory/Chest Respiratory/Chest: Denies cough, shortness of breath at rest or shortness of breath with exertion Gastrointestinal Gastrointestinal: Denies constipation, diarrhea, nausea or vomiting Genitourinary Genitourinary: Denies dysuria Neurologic Neurologic: Denies focal weakness, numbness or tremor(s) Psychiatric Psychiatric: Denies anxiety or depression Vital Signs Vital Signs Vital Signs: 06/17/24 10:19 06/17/24 10:28 06/17/24 12:08 Temperature 98.5 F Temperature Source Oral Pulse Rate 93 Respiratory Rate 24 H Respiratory Effort Normal Non-Labored Respiratory Depth Normal Respiratory Pattern Normal Blood Pressure 127/55 H Blood Pressure Mean 79 Blood Pressure Source Blood Pressure Position Blood Pressure Location Pulse Ox 94 94 Oxygen Delivery Method Nasal Cannula Nasal Cannula Nasal Cannula (more content not included)... Normal [facility] HIP, UNI W/ Pelvis 2-3 Views on 06-17-2024 HIP, UNI W/ Pelvis 2-[address] [facility] Imaging Services [address] [place], [place] [address] HIP, UNI W/ Pelvis 2-3 Views MR#: [id number] Acct: [id number] Name: DALIA LOPEZ Rep #: [id number] : 1950 F 73 From: Benja loving MD PCP: Dr. Lenin Bhatt MD Status: REG ER Study: HIP, UNI W/ Pelvis 2-3 Views Date of Exam: Exam# [id number] Ordering Dr: Alphonso Man DO [id number] INDICATION: fall EXAMINATION/TECHNIQUE : X-RAY - RIGHT XR Hip Unilateral with Pelvis when performed; 2-3 Views COMPARISON: [id number]. FINDINGS: No acute fracture or malalignment. No blastic or lytic lesions. Moderate degenerative changes of the hips.. The soft tissues are unremarkable. RAD/HIP, UNI W/ Pelvis 2-3 Views IMPRESSION: No definite acute fracture, however examination of the pubic symphysis and pubic rami is limited due to overlying bowel gas. If high clinical concern for fracture, consider CT pelvis. Electronically Signed: Benja Pennington MD at 11:38 EDT , CC: Dr. Alphonso Man DO; Dr. 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 Imaging Services [address] [place], [place] [address] Spine Cervical without Contras MR#: [id number] Acct: [id number] Name: DALIA LOPEZ Rep #: [id number] : 1950 F 73 From: Benja loving MD PCP: Dr. Lenin Bhatt MD Status: REG ER Study: Spine Cervical without Contras Date of Exam: 1 Exam# [id number] Ordering Dr: Alphonso Man DO [id number] INDICATION: fall EXAMINATION: CT CERVICAL SPINE - CT Spine Cervical W/O Contrast Injection TECHNIQUE: Helically acquired images were obtained of the cervical spine. 2D reformatted images were reviewed. A radiation dose optimization technique was used for this scan. IV Contrast dosage and agent: None. COMPARISON: None. 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 No discrete lytic or blastic abnormality. Normal alignment. Normal craniocervical junction and cervicothoracic junction. DISCS and SPINAL CANAL: Moderate multilevel degenerative disc disease and spondylosis. No critical stenosis. NECK SOFT TISSUES: No prevertebral soft tissue swelling. There is no cervical adenopathy. LUNG APICES: Clear. CT/Spine Cervical without Contras IMPRESSION: No evidence of acute cervical spinal fracture or spondylolisthesis. 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 Moderate multilevel degenerative disc disease and spondylosis Electronically Signed: Benja Pennington MD at 11:30 EDT Reading Location ID and State: [facility] / [place] Tel , Service support , CC: Dr. Alphonso Man DO; Dr. 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, [address] Basic Metabolic Profile (BMP )on 06-12-2024 BUN/CRE 12.1 RATIO Normal 06-18 [facility] Comment on above: Performed By: #### L 100.0100, L500.2500 #### [facility] [address] [place], [address] CA,Total 9.1 mg/dL Normal 8.5-10.1 [facility] Comment on above: Performed By: #### L 100.0100, L500.2500 #### [facility] [address] [place], [address] Chloride [Moles/Vol] 107 mmol/L Normal 98-107 [facility] Comment on above: Performed By: #### L 100.0100, L500.2500 #### [facility] [address] [place], [address] CO2 [Moles/Vol] 28.0 mmol/L Normal 21.0-32.0 [facility] Comment on above: Performed By: #### L 100.0100, L500.2500 #### [facility] [address] [place], [address] Creatinine [Mass/Vol] 0.83 mg/dL Normal 0.55-1.02 [facility] Comment on above: Result Comment: The validity of the calculated GFR GFRAA in patients over 70 years has not been determined. Clinical correlation is essential. Performed By: #### L 100.0100, L500.2500 #### [facility] [address] [place], [address] ECRCL 56.63 ml/min Normal [facility] Comment on above: Performed By: #### L 100.0100, L500.2500 #### [facility] [address] [place], [address] EST GFR - AA 87 mL/min Normal >60 [facility] Comment on above: Result Comment: Afri can Senegalese GFR Calc Performed By: #### L 100.0100, L500.2500 #### [facility] [address] [place], [address] GAP 6 Normal 5-15 [facility] Comment on above: Performed By: #### L 100.0100, L500.2500 #### [facility] [address] [place], [address] GFR/1.73 sq M.predicted among non-blacks MDRD (S/P/Bld) [Vol rate/Area] 72 mL/min/{1.73_m2} Normal >60 [facility] Comment on above: Result Comment: Non- GFR Calc Performed By: #### L 100.0100, L500.2500 #### [facility] [address] [place], [address] Glucose [Mass/Vol] 128 mg/dL High 74-106 [facility] Comment on above: Result Comment: Fast ing Glucose result greater than or equal to 126 mg/dL suggests DIABETES MELLITUS per A.D.A. criteria. Performed By: #### L 100.0100, L500.2500 #### [facility] [address] [place], [address] Potassium [Moles/Vol] 3.9 mmol/L Normal 3.5-5.1 [facility] Comment on above: Performed By: #### L 100.0100, L500.2500 #### [facility] [address] [place], [address] Sodium [Moles/Vol] 142 mmol/L Normal 136-145 [facility] Comment on above: Performed By: #### L 100.0100, L500.2500 #### [facility] [address] [place], [address] Urea nitrogen [Mass/Vol] 10 mg/dL Normal 7-18 [facility] Comment on above: Performed By: #### L 100.0100, L500.2500 #### [facility] [address] [place], [place], [address] Brain/Head without Contrasto n 06-12-2024 Brain/Head without Contrast [facility] Imaging Services [address] [place] [address] Brain/Head without Contrast MR#: [id number] Acct: [id number] Name: DALIA LOPEZ Rep #: [id number] : 1950 F 73 From: Jackeline Doe MD PCP: Dr. Lenin Bhatt MD Status: REG ER Study: Brain/Head without Contrast Date of Exam: 05/30 12/21 Exam# [id number] Ordering Dr: Len Kelley DO [id number] INDICATION: head trauma EXAMINATION: CT BRAIN - CT Head or Brain W/O Contrast Injection TECHNIQUE: Multiple axial images were obtained of the head without intravenous contrast. The protocol utilizes one or more of the following dose reduction techniques: automated exposure control, adjustment of mA and/or kV according to patient size,and/or use of iterative reconstruction technique. IV Contrast dosage and agent: None. RADIATION DOSAGE (If Supplied By Facility): CTDIvol = ( 44.99 ) mGy, DLP = ( 779.24 ) mGycm COMPARISON: March 11, 2021 __ FINDINGS: BRAIN PARENCHYMA: No intra- or extra-axial hemorrhage. There is stable encephalomalacia within the left frontal and left temporal lobes. No evidence of acute infarct. No intracranial mass or mass effect. There is preservation of the rutledge/white matter interface. Posterior fossa structures are unremarkable. CSF SPACES: Appropriate for age. No hydrocephalus. Basal cisterns are patent. CALVARIUM, SKULL BASE, PARANASAL SINUSES AND MASTOID AIR CELLS: Clear. No discrete lytic or blastic abnormalities. ORBITS: Both globes, extraocular muscles, optic nerves and retrobulbar fat appear unremarkable. ASPECTS Score for Acute Strokes: 10 CT/Brain/Head without Contrast IMPRESSION: No acute intracranial process. Stable encephalomalacia within the left frontotemporal lobes consistent with an old infarct. Electronically Signed: Jackeline Doe MD at 14:33 EDT , CC: Dr. Len Kelley DO; Dr. 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, [address] Absolute Neut 6.2 X10 3/uL Normal 2.0-7.7 [facility] Comment on above: Performed By: #### L 100.0100, L500.2500 #### [facility] [address] [place], [address] Basophils/100 WBC (Bld) 0.5 % Normal 0-1 [facility] Comment on above: Performed By: #### L 100.0100, L500.2500 #### [facility] [address] [place], [address] Eosinophils/100 WBC (Bld) 0.6 % Normal 0-5 [facility] Comment on above: Performed By: #### L 100.0100, L500.2500 #### [facility] [address] [place], [address] Erythrocyte distribution width (RBC) [Ratio] 15.8 % High 11.6-14.6 [facility] Comment on above: Performed By: #### L 100.0100, L500.2500 #### [facility] [address] [place], [address] Hematocrit (Bld) [Volume fraction] 35.5 % Low 37-47 [facility] Comment on above: Performed By: #### L 100.0100, L500.2500 #### [facility] [address] [place], [address] Hemoglobin (Bld) [Mass/Vol] 10.8 g/dL Low 12.0-15.0 [facility] Comment on above: Performed By: #### L 100.0100, L500.2500 #### [facility] [address] [place], [address] IG% 0.300 Normal 0.0-0.9 [facility] Comment on above: Result Comment: IG% - Immature Granulocytes (promyelocytes, myelocytes and metamyelocytes) > 1% indicates that a LEFT SHIFT is Present. Performed By: #### L 100.0100, L500.2500 #### [facility] [address] [place], [address] Lymphocytes/100 WBC (Bld) 12.0 % Low 19-41 [facility] Comment on above: Performed By: #### L 100.0100, L500.2500 #### [facility] [address] [place], [address] MCH (RBC) [Entitic mass] 24.8 pg Low 27.0-32.0 [facility] Comment on above: Performed By: #### L 100.0100, L500.2500 #### [facility] [address] [place], [address] MCHC (RBC) [Mass/Vol] 30.4 g/dL Low 32-36 [facility] Comment on above: Performed By: #### L 100.0100, L500.2500 #### [facility] [address] [place], [address] MCV (RBC) [Entitic vol] 81.4 fL Normal 81-99 [facility] Comment on above: Performed By: #### L 100.0100, L500.2500 #### [facility] [address] [place], [address] Monocytes/100 WBC (Bld) 6.3 % Normal 0-10 [facility] Comment on above: Performed By: #### L 100.0100, L500.2500 #### [facility] [address] [place], [address] Neutrophils/100 WBC (Bld) 80.3 % High 47-70 [facility] Comment on above: Performed By: #### L 100.0100, L500.2500 #### [facility] [address] [place], [address] Nucleated RBC (Bld) [#/Vol] 0 10*3/uL Normal 0-5 [facility] Comment on above: Performed By: #### L 100.0100, L500.2500 #### [facility] [address] [place], [address] Platelet mean volume (Bld) [Entitic vol] 9.5 fL Normal 6.2-12.0 [facility] Comment on above: Performed By: #### L 100.0100, L500.2500 #### [facility] [address] [place], [address] Platelets (Bld) [#/Vol] 340 10*3/uL Normal 150-450 [facility] Comment on above: Performed By: #### L 100.0100, L500.2500 #### [facility] [address] [place], [address] RBC (Bld) [#/Vol] 4.36 10*6/uL Normal 4.2-5.4 [facility] Comment on above: Performed By: #### L 100.0100, L500.2500 #### [facility] [address] [place], [address] RDW SD 46.4 fl High 35.1-43.9 [facility] Comment on above: Performed By: #### L 100.0100, L500.2500 #### [facility] [address] [place], [place], [address] WBC (Bld) [#/Vol] 7.8 10*3/uL Normal 4.4-11.0 [facility] Comment on above: Performed By: #### L 100.0100, L500.2500 #### [facility] [address] [place], [address] CNPNon 06-12-2024 CNPN Telephone (INTMWS) DALIA LOPEZ ([id number]) 1950 F Date Time Provider Department 06/12/24 LENIN BHATT INTWS During your visit today, we recorded the following information about you: Kenya Barroso RN 06/12/2024 11:43 AM Signed Son (William) calls to report that patient had a fall a few days ago with worsening pain. He reports today that she is having severe pain and unable to ambulate or dress herself. William is going to call an ambulance to have her taken to [facility] ER for evaluation/treatment. Appointment for today cancelled [...] depressive di*07/15/2021 Sacral decubitus ulcer, stage II ([facility]) [L89.152]03/04/2023 12/09/2023 Kidney insufficiency [N28.9] 03/04/2023 Bacteriuria [...] chronic bronchi*06/10/2023 (more content not included)... Normal [facility] Emergency Department Summary on 06-12-2024 Emergency Department Summary [facility] Medical Records Department [address] [place] [address] Emergency Department Summary 06/12/24 MR#: [id number] Acct: [id number] Name: DALIA LOPEZ Rep #: [id number] : 1950 73 From: Len Kelley DO PCP: Dr. Lenin Bhatt MD Status:REG ER Location: ED HPI HPI - Fall History of Present Illness Chief Complaint: Fall PFSH PFSH Medical History (Updated 06/12/24 @ 15:[address] Len Kelley DO) Debility Sacral decubitus ulcer, stage III History of stroke HTN (hypertension) Hypothyroid Depression Seizure CAD (coronary artery disease) Hyperlipemia COVID-19 Iron deficiency anemia Heart failure Vertigo Home Medications ???Medication ???Instructions ???Recorded ???Last Taken ???Type atorvastatin 20 mg tablet 20 mg PO QHS cholesterol 08/17/18 08/27/20 History clopidogrel 75 mg tablet 75 mg PO DAILY 08/17/18 08/28/20 History levetiracetam 500 mg tablet 500 mg PO BID seizures 08/17/18 08/28/20 History levothyroxine 50 mcg tablet 50 mcg PO DAILY Thyroid 08/17/18 08/28/20 History sertraline 100 mg tablet 150 mg PO QHS depression 08/17/18 08/27/20 History aspirin 81 mg tablet,delayed 81 mg PO DAILY@0800 08/28/20 08/28/20 History release carvedilol 12.5 mg tablet 12.5 mg PO BID heart 08/28/20 08/28/20 History multivitamin-iron 9 mg-folic acid 1 tab PO DAILY supplement 08/28/20 08/28/20 History 400 mcg-calcium and minerals tablet lisinopril 5 mg tablet 5 mg PO QHS bp ##0 08/31/20 08/27/20 Rx albuterol sulfate 2.5 mg/3 mL 1.25 mg inhalation Q6H PRN 03/25/23 Unknown History (0.083 %) solution for nebulization shortness of breath or wheezing albuterol sulfate 90 mcg/actuation 2 inh inhalation Q4H PRN shortness 03/25/23 Unknown History aerosol inhaler (ProAir HFA) of breath or wheezing furosemide 20 mg tablet 20 mg PO DAILY 03/25/23 Unknown History spironolactone 25 mg tablet 25 mg PO DAILY 03/25/23 Unknown History (Aldactone) doxycycline monohydrate 100 mg 100 mg PO BID #14 caps 07/06/23 Unknown Rx capsule metronidazole 500 mg tablet 500 mg PO TID #21 tabs 07/06/23 Unknown Rx acetaminophen 325 mg tablet 650 mg (2 x 325 mg) PO Q6H PRN 06/12/24 Unknown Rx (Tylenol) pain #240 tabs ibuprofen 400 mg tablet 400 mg PO Q6H PRN pain 30 days 06/12/24 Unknown Rx #120 tabs oxycodone 5 mg tablet 5 mg PO Q6H PRN pain 4 days #16 06/12/24 Unknown Rx tabs Allergy/AdvReac Type Severity Reaction Status Date / Time No Known Allergies Allergy Verified 06/12/24 12:52 Social History Smoking Status: Unknown if ever smoked EXAM Physical Exam Const Vital Signs: 06/12/24 12:50 06/12/24 14:03 06/12/24 14:49 Temperature 98 F Temperature Source Oral Pulse Rate 106 H 90 Respiratory Rate 18 16 Respiratory Effort Normal Respiratory Depth Normal Respiratory Pattern Normal Blood Pressure 162/81 H 134/52 H Blood Pressure Mean 108 79 Pulse Ox 92 98 Oxygen Delivery Method Room Air Room Air Room Air MDM MDM MDM Narrative Medical decision making narrative: HISTORY OF PRESENT ILLNESS: 73-year-old female presents with hip pain after fall. She states she attempted to get out of the couch and fell forward hitting her head. Denies neck pain. Notes bilateral hip pain and bilateral knee pain. Per the patient's son she has not been ambulating for last 1-1/2 to 2 days after her fall. He is concerned she may have an injury. REVIEW OF SYSTEMS: Pertinent positives: Hip pain, knee pain Pertinent negatives: Dysuria, frequency, urgency, fever, chest pain, palpitations PHYSICAL EXAM: Nursing triage notes reviewed, Vital signs reviewed Primary Survey Airway: Intact Breathing: Bilateral breath sounds Circulation: Palpable bilateral femorals, Palpable bilateral radial, Palpable bilateral DP and Palpable bilateral PT Disability / Spine precautions GCS Score: Eye Openin Verbal Response: 5 Motor Response: 6 Secondary Survey Constitutional: Please see MDM Head: Atraumatic, Midface stable, NO jaw malocclusion, No Cephalohematoma, and No Lacerations noted Eye: Pupils equal round and reactive to light, Extraocular muscles intact and No periorbital ecchymosis or stepoff, no evidence of entrapment ENT: Oropharynx clear, no lacerations, no hemotympanum, no raccoon eyes or rizzo sign Cervical spine / Neck: No cervical spine bony tenderness, crepitance, or stepoff deformity Trachea midline Lungs: Clear to auscultation, No asymmetric rise and No crepitus, no flail chest Cardiac: Regular rate and rhythm and No murmurs Abdomen: Soft, Nontender and No rebound Pelvis: Pelvis stable to compression : No evidence of genital injury Back: No midline bony tenderness to thoracic/anabela (more content not included)... Normal [facility] Hips B/L min 2 views w/ Pelv mat 06-12-2024 Hips B/L min 2 views w/ Pelvis [facility] Imaging Services [address] [place] [address] Hips B/L min 2 views w/ Pelvis MR#: [id number] Acct: [id number] Name: JOHNDALIA L Rep #: [id number] : 1950 F 73 From: Jackeline Doe MD PCP: Dr. Lenin Bhatt MD Status: REG ER Study: Hips B/L min 2 views w/ Pelvis Date of Exam: Exam# [id number] Ordering Dr: Len Kelley DO [id number] INDICATION: hip pain after fall EXAMINATION/TECHNIQUE : X-RAY - XR Hips Bilateral with Pelvis when performed; 2 Views COMPARISON: No relevant prior comparison study available __ FINDINGS: PELVIC BONES: No displaced fracture, destructive or sclerotic lesions. Note that overlapping bowel shadows may however obscure fine detail. Sacroiliac joints are unremarkable. No widening of the pubic symphysis. HIPS: The articular structures are unremarkable. No displaced fracture seen in this frontal view. SOFT TISSUES: No soft tissue swelling or gas. RAD/Hips B/L min 2 views w/ Pelvis IMPRESSION: No evidence of displaced pelvic or hip fracture. Electronically Signed: Jackeline Doe MD at 14:58 EDT , CC: Dr. Len Kelley DO; Dr. 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 Imaging Services [address] [place] [address] Knee 3 Views MR#: [id number] Acct: [id number] Name: DALIA LOPEZ Rep #: [id number] : 1950 F 73 From: Jackeline Doe MD PCP: Dr. Lenin Bhatt MD Status: REG ER Study: Knee 3 Views Date of Exam: 06/12/24 Exam# [id number] Ordering Dr: Len Kelley DO [id number] INDICATION: FALL EXAMINATION/TECHNIQUE : X-RAY - LEFT XR Knee 3 Views 3 VIEWS COMPARISON: Right knee dated June 12, 2024 __ FINDINGS: SOFT TISSUES: No soft tissue swelling or gas. No radiopaque foreign body. BONES/JOINTS: No acute fracture or subluxation.. Normal alignment. Preservation of the joint space. There is a punctate round density projecting over the anterior joint space. No sclerotic or destructive changes observed. RAD/Knee 3 Views IMPRESSION: Punctate round density projecting over the anterior joint space, cannot exclude a intra-articular loose body. Electronically Signed: Jackeline Doe MD at 14:48 EDT , CC: Dr. Len Kelley DO; Dr. 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 Imaging Services [address] [place] [address] Knee 3 Views MR#: [id number] Acct: [id number] Name: DALIA LOPEZ Rep #: [id number] : 1950 F 73 From: Jackeline Doe MD PCP: Dr. Lenin Bhatt MD Status: REG ER Study: Knee 3 Views Date of Exam: 06/12/24 Exam# [id number] Ordering Dr: Len Kelley DO [id number] INDICATION: knee pain after fall EXAMINATION/TECHNIQUE : X-RAY - RIGHT XR Knee 3 Views 3 VIEWS COMPARISON: No relevant prior comparison study available __ FINDINGS: SOFT TISSUES: No soft tissue swelling or gas. No radiopaque foreign body. BONES/JOINTS: No acute fracture or subluxation.. Normal alignment. Preservation of the joint space.. No sclerotic or destructive changes observed. RAD/Knee 3 Views IMPRESSION: No acute osseous injury. Electronically Signed: Jackeline Doe MD at 14:45 EDT , CC: Dr. Len Kelley DO; Dr. 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, [address] EPI,TRANSITION 0 SEEN Normal 0-5 [facility] Comment on above: Order Comment: SHIVANI CTOR TO SPECIFY Performed By: #### L 400.0001 #### [facility] [address] [place], [address] RBC 0-5 SEEN Normal 0-5 [facility] Comment on above: Order Comment: [facility] CTOR TO SPECIFY Performed By: #### L 400.0001 #### [facility] [address] [place], [address] WBC 0-5 SEEN Normal 0-5 [facility] Comment on above: Order Comment: COLLE CTOR TO SPECIFY Performed By: #### L 400.0001 #### [facility] [address] [place], [address] BACTERIA 4+ /hpf Normal None Seen [facility] Comment on above: Order Comment: COLLE CTOR TO SPECIFY Performed By: #### L 400.0001 #### [facility] [address] [place], [place], [address] Mucus Ql (Urine sed) 0 SEEN Normal [facility] Comment on above: Order Comment: COLLE CTOR TO SPECIFY Performed By: #### L 400.0001 #### [facility] [address] [place], [place], [address] CNOVon 05-24-2024 CNOV Office Visit (GERIWR ) DALIA LOPEZ ([id number]) 1950 F Date Time Provider Department 05/24/24 2:00 PM DEEPTI AUGUSTE During your visit today, we recorded the following information about you: Pulse Respiration Blood pressure Weight Normal [facility] CNPNon 05-24-2024 CNPN Telephone (GERIWR) DALIA LOPEZ ([id number]) 1950 F Date Time Provider Department 05/24/24 DEEPTI AUGUSTE During your visit today, we recorded the following information about you: Jo Moore MA 05/24/2024 3:37 PM Signed Patient and son requesting in home PT and OT as it's hard for patient to leave the house. Pt will need home health to facilitate. Will need to notify patient to contact insurance to see which home health is in network. DEX López Mary, LPN 06/01/2024 11:44 AM Signed Unable to leave message, mailbox is full Patient has appointment on 06/09/[address] Bhatt. Rosette Lord LPN June 01, 2024 11:43 AM Allergies As of Date: 05/24/2024 (No Known Allergies) Date Reviewed: 05/24/2024 Reviewed by: Jo Moore MA - Fully Assessed Reason for Visit: Physical Therapy [503] Prescriptions as of 06/22/2024 - trospium (SANCTURA) 20 mg tablet TAKE 1 TABLET BY MOUTH TWICE A DAY - acetaminophen-codeine (TYLENOL-COD #3) 300-30 mg per [...] CHF, bronchospasm. Problem List As Of Date 05/24/2024 Noted Resolved Aphasia, late effect of cerebrovascular [...] [S61.409A] 06/10/2023 12/09/2023 Diagnosed: 06/10/2023 Chronic bronchitis, uns (more content not included)... Normal [facility] CNPCadence 04-13-2024 CNPN Telephone (UROLAE) DALIA LOPEZ ([id number]) 1950 F Date Time Provider Department 04/13/24 ZACHARIAH GONZALES JR During your visit today, we recorded the following information about you: Edmund Weeks MA 04/13/2024 8:32 AM Signed Message Received: Yesterday Zachariah Gonzales Jr., MD [facility] Exchange Clinical Pool Ultrasound is stable Edmund Weeks MA 04/13/2024 8:32 AM Signed Spoke with patient and advised of results. Edmund Weeks MA Allergies As of Date: 04/13/2024 (No Known Allergies) Date Reviewed: 03/14/2024 Reviewed by: Moira Hearn APRN.[employer]ER HAND - Fully Assessed Reason for Visit: [...] EDMUND WEEKS on 04/13/24 Normal [facility] Basic metabolic 2000 panelon 04-10-2024 Anion gap [Moles/Vol] 7 mmol/L Low 8- [facility] Comment on above: Order Comment: Speci vitaliy Type: BLOOD SPECIMEN Ordering Facility: [facility] Address: [address] [place] [address] Performed By: #### 2 276-, 2132-04 #### [facility] CLIA [id number] [address] [place] [address] [place] #### 65311-1 #### [facility] CLIA [id number] [address] [place] [address] [place] [facility] CLIA [id number] [address] [place] [address] [place] Calcium [Mass/Vol] 9.1 mg/dL Normal 8.5-10.2 [facility] Comment on above: Order Comment: Kartiki vitaliy Type: BLOOD SPECIMEN Ordering Facility: [facility] Address: [address] [place] [address] Performed By: #### 2 276-4, 2132-04 #### [facility] CLIA [id number] [address] [place] [address] [place] #### 15723-2 #### [facility] CLIA [id number] [address] [place] [place] [id number] [place] [facility] CLIA [id number] [address] [place] [address] [place] Chloride [Moles/Vol] 104 mmol/L Normal 98-107 [facility] Comment on above: Order Comment: Speci men Type: BLOOD SPECIMEN Ordering Facility: [facility] Address: [address] [place], [place] [address] Performed By: #### 2 276-4, 2132-04 #### [facility] CLIA [id number] [address] [place] [address] [place] #### 52283-4 #### [facility] CLIA [id number] [address] [place] [address] [place] [facility] CLIA [id number] [address] [place] [address] [place] CO2 [Moles/Vol] 27 mmol/L Normal 22-30 [facility] Comment on above: Order Comment: Speci men Type: BLOOD SPECIMEN Ordering Facility: [facility] Address: [address] [place], [place] [address] Performed By: #### 2 276-4, 2132-04 #### [facility] CLIA [id number] [address] [place] [address] [place] #### 94861-8 #### [facility] CLIA [id number] [address] [place] [address] [place] [facility] CLIA [id number] [address] [place] [address] [place] Creatinine [Mass/Vol] 0.84 mg/dL Normal 0.58-0.96 [facility] Comment on above: Order Comment: Speci men Type: BLOOD SPECIMEN Ordering Facility: [facility] Address: [address] [place] [address] Performed By: #### 2 276-4, 2132-04 #### [facility] CLIA [id number] [address] [place] [address] [place] #### 78501-4 #### [facility] CLIA [id number] [address] [place] [address] [place] [id number] [address] [place] [address] [place] Creatinine and Glomerular filtration rate.predicted panel (S/P/Bld) 73 mL/min/1.73m??? Normal >=60 [facility] Comment on above: Order Comment: Chelly burks Type: BLOOD SPECIMEN Ordering Facility: [facility] Address: [address] [place] [address] Result Comment: Grace mated Glomerular Filtration Rate [...] reflect actual GFR. Performed By: #### 2 276-4, 2132-04 #### [facility] CLIA [id number] [address] [place] [address] [place] #### 62678-0 #### [facility] CLIA [id number] [address] [place], [place] [address] [place] [facility] [id number] [address] [place] [address] [place] Glucose [Mass/Vol] 147 mg/dL High 74-99 [facility] Comment on above: Order Comment: Chelly burks Type: BLOOD SPECIMEN Ordering Facility: [facility] Address: [address] [place] [id number] Result Comment: The [place] Diabetes Association (ADA) provides guidance for cutoff [...] Standards of Medical Care in Diabetes 2016, [place] [employer] Association. Diabetes Care. 2016.39(Suppl 1). Performed By: #### 2 276-, 2132-04 #### [facility] CLIA [id number] [address] [place] [address] [place] #### 10620-9 #### [facility] CLIA [id number] [address] [place] [address] [place] [facility] CLIA [id number] [address] [place] [address] [place] Potassium [Moles/Vol] 4.2 mmol/L Normal 3.7-5.1 [facility] Comment on above: Order Comment: Speci men Type: BLOOD SPECIMEN Ordering Facility: [facility] Address: [address] [place] [address] [place] [address] Performed By: #### 2 276-, 2132-04 #### [facility] CLIA [id number] [address] [place] [address] [place] #### 95252-9 #### [facility] CLIA [id number] [address] [place] [address] [place] [facility] CLIA [id number] [address] [place] [address] [place] Sodium [Moles/Vol] 138 mmol/L Normal 136-144 [facility] Comment on above: Order Comment: Speci men Type: BLOOD SPECIMEN Ordering Facility: [facility] Address: [address] [place] [address] Performed By: #### 2 276-4, 2132-04 #### [facility] CLIA [id number] [address] [place] [address] [place] #### 78301-2 #### [facility] CLIA [id number] [address] [place] [address] [place] [facility] CLIA [id number] [place] [address] [place] Urea nitrogen [Mass/Vol] 14 mg/dL Normal 7-21 [facility] Comment on above: Order Comment: Speci men Type: BLOOD SPECIMEN Ordering Facility: [facility] Address: [address] [place] [address] Performed By: #### 2 276-4, 2132-04 #### [facility] CLIA [id number] [address] [place] [address] [place] #### 83492-0 #### [facility] CLIA [id number] [address] [place] [address] [place] [facility] [id number] [address] [place] [address] [place] CBC panel Auto (Bld)on 04-10 Erythrocyte distribution width (RBC) [Ratio] 15.3 % High 11.5-15.0 [facility] Comment on above: Order Comment: Speci men Type: BLOOD SPECIMEN Ordering Facility: [facility] Address: [address] [place] [address] Performed By: #### 4 537-7, 02135-3 #### [facility] CLIA [id number] [address] [place] [address] [place] Hematocrit (Bld) [Volume fraction] 31.0 % Low 36.0-46.0 [facility] Comment on above: Order Comment: Speci men Type: BLOOD SPECIMEN Ordering Facility: [facility] Address: [address] [place] [address] Performed By: #### 4 537-7, 75995-8 #### [facility] CLIA [id number] [address] [place] [address] [place] Hemoglobin (Bld) [Mass/Vol] 9.4 g/dL Low 11.5-15.5 [facility] Comment on above: Order Comment: Speci men Type: BLOOD SPECIMEN Ordering Facility: [facility] Address: [address] [place] [address] Performed By: #### 4 537-7, 89170-6 #### [facility] CLIA [id number] [address] [place] [address] [place] MCH (RBC) [Entitic mass] 26.5 pg Normal 26.0-34.0 [facility] Comment on above: Order Comment: Speci men Type: BLOOD SPECIMEN Ordering Facility: [facility] Address: [address] [place] [address] Performed By: #### 4 537-7, 13005-1 #### [facility] CLIA [id number] [address] [place] [address] [place] MCHC (RBC) [Mass/Vol] 30.3 g/dL Low 30.5-36.0 [facility] Comment on above: Order Comment: Speci men Type: BLOOD SPECIMEN Ordering Facility: [facility] Address: [address] [place] [address] Performed By: #### 4 537-7, 98866-7 #### [facility] CLIA [id number] [address] [place] [address] [place] MCV (RBC) [Entitic vol] 87.3 fL Normal 80.0-100.0 [facility] Comment on above: Order Comment: Speci men Type: BLOOD SPECIMEN Ordering Facility: [facility] Address: [address] [place] [address] Performed By: #### 4 537-7, 62877-3 #### [facility] CLIA [id number] [address] [place] [address] [place] Nucleated RBC (Bld) [#/Vol] 10*3/uL Normal <0.01 [facility] Comment on above: Order Comment: Speci men Type: BLOOD SPECIMEN Ordering Facility: [facility] Address: [address] [place] [address] Performed By: #### 4 537-7, 44919-3 #### [facility] CLIA [id number] [address] [place] [address] [place] Platelet mean volume (Bld) [Entitic vol] 9.5 fL Normal 9.0-12.7 [facility] Comment on above: Order Comment: Speci men Type: BLOOD SPECIMEN Ordering Facility: [facility] Address: [address] [place] [address] Performed By: #### 4 537-7, 98191-7 #### [facility] CLIA [id number] [address] [place] [address] [place] Platelets (Bld) [#/Vol] 331 10*3/uL Normal 150-400 [facility] Comment on above: Order Comment: Speci men Type: BLOOD SPECIMEN Ordering Facility: [facility] Address: [address] [place] [address] Performed By: #### 4 537-7, 27982-0 #### [facility] CLIA [id number] [address] [place] [address] [place] RBC (Bld) [#/Vol] 3.55 10*6/uL Low 3.90-5.20 [facility] Comment on above: Order Comment: Speci men Type: BLOOD SPECIMEN Ordering Facility: [facility] Address: [address] [place] [address] Performed By: #### 4 537-7, 22240-2 #### [facility] CLIA [id number] [address] [place] [address] [place] WBC (Bld) [#/Vol] 6.73 10*3/uL Normal 3.70-11.00 [facility] Comment on above: Order Comment: Speci men Type: BLOOD SPECIMEN Ordering Facility: [facility] Address: [address] [place] [address] Performed By: #### 4 537-7, 83553-3 #### [facility] CLIA [id number] [address] [place] [address] [place] Ferritin SerPl-mCncon 2023 Ferritin [Mass/Vol] 18.4 ng/mL Normal 14.7-205.1 [facility] Comment on above: Order Comment: Speci men Type: BLOOD SPECIMEN Ordering Facility: [facility] Address: [address] [place] [address] Performed By: #### 2 276-4, 2132-9 #### [facility] CLIA [id number] [address] [place] [address] [place] #### 37880-2 #### [facility] CLIA [id number] [address] [place] [address] [place] [facility] CLIA [id number] [address] [place] [address] [place] Lipid 1996 panelon 4 Cholesterol [Mass/Vol] 94 mg/dL Normal <200 [facility] Comment on above: Order Comment: Speci men Type: BLOOD SPECIMEN Ordering Facility: [facility] Address: [address] [place] [address] Result Comment: <200 mg/dL, Desirable 200-239 mg/dL, Borderline high >239 mg/dL, High Performed By: #### 2 276-4, 2132-04 #### [facility] CLIA [id number] [facility] [place] [address] [place] #### 10124-2 #### [facility] CLIA [id number] [facility] [place] [address] [place] [facility] CLIA [id number] [address] [place] [address] [place] Cholesterol in HDL [Mass/Vol] 43 mg/dL Normal >39 [facility] Comment on above: Order Comment: Speci men Type: BLOOD SPECIMEN Ordering Facility: [facility] Address: [address] [place] [address] Result Comment: 40-5 9 mg/dL, Acceptable >59 mg/dL, High: Negative risk factor for coronary heart disease <40 mg/dL, Low: Positive risk factor for coronary heart disease Performed By: #### 2 276-4, 2132-04 #### [facility] CLIA [id number] [address] [place] [address] [place] #### 63976-7 #### [facility] CLIA [id number] [address] [place] [address] [place] [facility] CLIA [id number] [address] [place] [address] [place] Cholesterol in LDL [Mass/Vol] 39 mg/dL Normal <100 [facility] Comment on above: Order Comment: Speci men Type: BLOOD SPECIMEN Ordering Facility[facility] Address: [address] [place] [address] Result Comment: <100 mg/dL, Optimal 100-129 mg/dL, Near optimal/above optimal 130-159 mg/dL, Borderline high 160-189 mg/dL, High >189 mg/dL, Very high Secondary prevention optimal LDL Cholesterol levels are recommended to be < 70 mg/dL Performed By: #### 2 276-4, 2132-04 #### [facility] CLIA [id number] [address] [place] [address] [place] #### 96998-3 #### [facility] CLIA [id number] [address] [facility] [place] [id number] [place] [facility] CLIA [id number] [address] [place] [address] [place] Cholesterol in LDL/Cholesterol in HDL [Mass ratio] 0.91 {ratio} Normal <2.54 [facility] Comment on above: Order Comment: Speci men Type: BLOOD SPECIMEN Ordering Facility[facility] Address: [address] [place] [address] Result Comment: Refe rence: 1. National Cholesterol Education Program ATP III Guideline At-A-Glance Quick Desk Reference: National Heart, Lung, and Blood [place]. National Institutes of Health. 2001: NIH Publication No. 01-3305. 2. An International Atherosclerosis Society position paper: global recommendations for the management of dyslipidemia: executive summary, Atherosclerosis. 2014: 232(2):410-413. Performed By: #### 2 276-, 2132-04 #### [facility] CLIA [id number] [address] [place] [address] [place] #### 38682-3 #### [facility] CLIA [id number] [facility] [place] [id number] [place] [facility] CLIA [id number] [address] [place] [address] [place] Cholesterol in VLDL [Mass/Vol] 12 mg/dL Normal <30 [facility] Comment on above: Order Comment: Speci men Type: BLOOD SPECIMEN Ordering Facility[facility] Address: [address] [place] [address] Performed By: #### 2 276, 2132-04 #### [facility] CLIA [id number] [address] [place] [address] [place] #### 00550-8 #### [facility] CLIA [id number] [address] [place] [address] [place] [facility] CLIA [id number] [address] [place] [address] [place] Cholesterol non HDL [Mass/Vol] 51 mg/dL Normal <130 [facility] Comment on above: Order Comment: Speci men Type: BLOOD SPECIMEN Ordering Facility[facility] Address: [address] [place] [address] Result Comment: <130 mg/dL, Optimal 130-159 mg/dL, Near optimal/above optimal 160-189 mg/dL, Borderline high 190-219 mg/dL, High >219 mg/dL, Very high Secondary prevention optimal non HDL Cholesterol levels are recommended to be <100 mg/dL Performed By: #### 2 , 2132-04 #### [facility] CLIA [id number] [address] [place] [address] [place] #### 47452-7 #### [facility] CLIA [id number] [address] [place] [address] [place] [facility] CLIA [id number] [address] [place] [address] [place] Cholesterol.total/Choles terol in HDL [Mass ratio] 2.19 {ratio} Normal <5.10 [facility] Comment on above: Order Comment: Speci men Type: BLOOD SPECIMEN Ordering Facility: [facility] Address: [address] [place] [address] Performed By: #### 2 , 2132-04 #### [facility] CLIA [id number] [address] [place] [address] [place] #### 86900-5 #### [facility] CLIA [id number] [address] [place] [address] [place] [facility] CLIA [id number] [address] [place] [address] [place] FASTING TIME 10 hrs Normal [facility] Comment on above: Order Comment: Speci men Type: BLOOD SPECIMEN Ordering Facility: [facility] Address: [address] [place] [address] Performed By: #### 2 276-4, 2132-04 #### [facility] CLIA [id number] [address] [place] [address] [place] #### 51506-9 #### [facility] CLIA [id number] [address] [place] [address] [place] [facility] CLIA [id number] [address] [place] [address] [place] Triglyceride [Mass/Vol] 59 mg/dL Normal <150 C [facility] Comment on above: Order Comment: Speci men Type: BLOOD SPECIMEN Ordering Facility: [facility] Address: [address] [place] [address] Result Comment: <150 mg/dL, Normal 150-199 mg/dL, Borderline high 200-499 mg/dL, High >499 mg/dL, Very high Performed By: #### 2 276-4, 2132-04 #### [facility] CLIA [id number] [address] [place] [address] [place] #### 98946-6 #### [facility] CLIA [id number] [address] [place] [address] [place] [facility] CLIA [id number] [address] [place] [address] [place] US KIDNEY/BLADDERon 04-10-20 24 US KIDNEY/BLADDER * * *Final Report* * [...] mass Stable left renal mass No hydronephrosis. 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 024 Cobalamin (Vitamin B12) [Mass/Vol] 422 pg/mL Normal 232-1245 [facility] Comment on above: Order Comment: Speci men Type: BLOOD SPECIMEN [facility]ing Facility[facility] Address: [address] [place] [address] Performed By: #### 2 276-4, 2132-9 #### [facility] CLIA [id number] [address] [place] [address] [place] [address] [place] #### 52992-6 #### [facility] CLIA [id number] [address] [place] [address] [place] [facility] CLIA [id number] [address] [place] [address] [place] levETIRAcetam SerPl-mCncon 0 04-10-2024 levETIRAcetam [Mass/Vol] 18.3 ug/mL Normal 12.0-46.0 [facility] Comment on above: Order Comment: Speci men Type: BLOOD SPECIMEN Ordering Facility[facility] Address: [address] [place] [address] Result Comment: This test is not suitable [...] developed and its performance characteristics determined by [facility] [place] ([facility]). It has not been cleared or approved by the FDA. -[facility] is regulated under CLIA as qualified to perform high-complexity testing. This test is used for clinical purposes. It should not be regarded as investigational or for research. Performed By: #### 2 276-4, 2132-9 #### [facility] CLIA [id number] [address] [place] [address] [place] #### 66945-9 #### [facility] CLIA [id number] [address] [place] [address] [place] [facility] CLIA [id number] [address] [place] [address] [place] HbA1c (Bld)on 03-15-2024 Average glucose Estimated from glycated hemoglobin (Bld) [Mass/Vol] 143 mg/dL [facility] Comment on above: eAG: (Estimated aver age glucose) is a calculated value from HgbA1c and is retention representative of the average blood glucose level in the last 2-3 month period. HbA1c (Bld) [Mass fraction] 6.6 % High 4.3 - 5.6 % [facility] Comment on above: [place] Diabetes As sociation guidelines indicate that patients with HgbA1c in the range 5.7-6.4% are at increased risk for development of diabetes, and intervention by lifestyle modification may be beneficial. HgbA1c greater or equal to 6.5% is considered diagnostic of diabetes. Interpretation and review of laboratory results Abnormal [facility] CBC panel Auto (Bld)on 03-14 Erythrocyte distribution width (RBC) [Ratio] 15.2 % High 11.5-15.0 [facility] Comment on above: Order Comment: Chelly burks Type: BLOOD SPECIMEN Ordering Facility[facility] Address: [address] [place] [address] Performed By: #### 4 537-7, 80236-9 #### [facility] IA [id number] [address] [place] [address] [place] Hematocrit (Bld) [Volume fraction] 31.7 % Low 36.0-46.0 [facility] Comment on above: Order Comment: Chelly burks Type: BLOOD SPECIMEN Ordering Facility: [facility] Address: [address] [place] [address] Performed By: #### 4 537-7, 69724-4 #### [facility] IA [id number] [address] [place] [address] [place] Hemoglobin (Bld) [Mass/Vol] 9.5 g/dL Low 11.5-15.5 [facility] Comment on above: Order Comment: Chelly burks Type: BLOOD SPECIMEN Ordering [facility] Address: [address] [place] [address] Performed By: #### 4 537-7, 44461-5 #### [facility] CLIA [id number] [address] [place] [address] [place] MCH (RBC) [Entitic mass] 27.0 pg Normal 26.0-34.0 [facility] Comment on above: Order Comment: Speci men Type: BLOOD SPECIMEN Ordering [facility]: [facility] Address: [address] [place] [address] Performed By: #### 4 537-7, 74564-8 #### [facility] CLIA [id number] [address] [place] [address] [place] MCHC (RBC) [Mass/Vol] 30.0 g/dL Low 30.5-36.0 [facility] Comment on above: Order Comment: Speci men Type: BLOOD SPECIMEN Ordering Facility: [facility] Address: [address] [place] [address] Performed By: #### 4 537-7, 08809-3 #### [facility] CLIA [id number] [address] [place] [address] [place] MCV (RBC) [Entitic vol] 90.1 fL Normal 80.0-100.0 C [facility] Comment on above: Order Comment: Speci men Type: BLOOD SPECIMEN Ordering [facility] Address: [address] [place] [address] Performed By: #### 4 537-7, 72835-9 #### [facility] CLIA [id number] [address] [place] [address] [place] Nucleated RBC (Bld) [#/Vol] 10*3/uL Normal <0.01 [facility] Comment on above: Order Comment: Speci men Type: BLOOD SPECIMEN Ordering [facility] Address: [address] [place] [address] Performed By: #### 4 537-7, 84777-5 #### [facility] CLIA [id number] [address] [place] [address] [place] Platelet mean volume (Bld) [Entitic vol] 10.7 fL Normal 9.0-12.7 [facility] Comment on above: Order Comment: Speci men Type: BLOOD SPECIMEN Ordering Facility: [facility] Address: [address] [place] [address] Performed By: #### 4 537-7, 64074-3 #### [facility] CLIA [id number] [address] [place] [address] [place] Platelets (Bld) [#/Vol] 368 10*3/uL Normal 150-400 [facility] Comment on above: Order Comment: Speci men Type: BLOOD SPECIMEN Ordering [facility] Address: [address] [place] [address] Performed By: #### 4 537-7, 49459-2 #### [facility] CLIA [id number] [address] [place] [address] [place] RBC (Bld) [#/Vol] 3.52 10*6/uL Low 3.90-5.20 [facility] Comment on above: Order Comment: Speci men Type: BLOOD SPECIMEN Ordering [facility]: [facility] Address: [address] [place] [address] Performed By: #### 4 537-7, 22848-3 #### [facility] CLIA [id number] [address] [place] [address] [place] WBC (Bld) [#/Vol] 7.75 10*3/uL Normal 3.70-11.00 [facility] Comment on above: Order Comment: Speci men Type: BLOOD SPECIMEN Ordering [facility]: [facility] Address: [address] [place] [address] Performed By: #### 4 537-7, 23451-9 #### [facility] CLIA [id number] [address] [place] [address] [place] CNOVon 03-14-2024 CNOV Office Visit (INTMWS ) DALIA LOPEZ ([id number]) 1950 F Date Time Provider Department 03/14/24 2:20 PM MOIRA HEARN INTMWS During your visit today, we recorded the following information about you: Pulse Respiration Blood pressure Weight 90/minute 18/minute 98/56 68 kg Height 1.595 m Moira Hearn, AMBULATORY ANALYST.[employer] HAND 03/15/2024 7:25 AM Signed Daliajack Lopez is a 73 year old female [...] as PCP - General Outside specialists seen: endocrinology specialist- Dr. Jonathan Aguila, neurology- Dr. Aramis Cheng [...] gy Assessment/Plan Medicare annual wellness visit, subsequent () - Counseled on healthy diet and regular [...] 90 Resp 18 Ht 159.5 cm (5' 2.8) Wt 68 kg (150 lb) SpO2 96% BMI 26.75 kg/m? GENERAL: well appearing, alert, in no acute distress CARDIOVASCULAR: regular rate and rhythm. No murmur, rubs or gallops. PULMONARY: clear to auscultation, no wheezing, rhonchi, or crackles ASSESSMENT/PLAN: 1. Medicare annual wellness visit, subsequent - ICD9: V70.0, ICD10: Z.00 (primary diagnosis) See medicare wellness note 2. [...] Moira Hearn, (more content not included)... Normal [facility] Comprehensive metabolic 2000 panelon 03-14-2024 Albumin [Mass/Vol] 3.8 g/dL Low 3.9-4.9 [facility] Comment on above: Order Comment: Specyulissa burks Type: BLOOD SPECIMEN Order[facility] Address: [address] [place] [address] Performed By: #### 2 276-4, 2132-04 #### [facility] CLIA [id number] [address] [place] [address] [place] #### 78817-5 #### [facility] CLIA [id number] [address] [place] [address] [place] [facility] [id number] [address] [place] [address] STATES OF [facility] ALP [Catalytic activity/Vol] 60 U/L Normal 34-123 [facility] Comment on above: Order Comment: Chelly burks Type: BLOOD SPECIMEN Order[facility] Address: [address] [place] [address] Performed By: #### 2 276-4, 2132-04 #### [facility] CLIA [id number] [address] [place] [address] [place] #### 40101-6 #### [facility] CLIA [id number] [address] [place] [address] [place] [facility] CLIA [id number] [address] [place] [address] [place] ALT [Catalytic activity/Vol] 14 U/L Normal 7-38 [facility] Comment on above: Order Comment: Speci men Type: BLOOD SPECIMEN Ordering Facility[facility] Address: [address] [place] [address] Performed By: #### 2 276-4, 2132-04 #### [facility] CLIA [id number] [address] [place], [place] [address] [place] #### 21251-2 #### [facility] CLIA [id number] [address] [place], [place] [address] [place] [facility] CLIA [id number] [address] [place] [address] [place] Anion gap [Moles/Vol] 13 mmol/L Normal 8-15 [facility] Comment on above: Order Comment: Speci men Type: BLOOD SPECIMEN Ordering [facility] Address: [address] [place] [address] Performed By: #### 2 276-4, 2132-04 #### [facility] CLIA [id number] [address] [place], [place] [address] [place] #### 65105-2 #### [facility] CLIA [id number] [address] [place], [place] [address] [place] [facility] CLIA [id number] [address] [place] [address] [place] AST [Catalytic activity/Vol] 19 U/L Normal 13-35 [facility] Comment on above: Order Comment: Speci men Type: BLOOD SPECIMEN Order[facility] Address: [address] [place] [address] Performed By: #### 2 276-4, 2132-04 #### [facility] CLIA [id number] [address] [place] [address] [place] #### 12561-1 #### [facility] CLIA [id number] [address] [place], [place] [address] [place] [facility] CLIA [id number] [address] [place] [address] [place] Bilirubin [Mass/Vol] 0.2 mg/dL Normal 0.2-1.3 [facility] Comment on above: Order Comment: Speci men Type: BLOOD SPECIMEN Ordering [facility] Address: [address] [place] [address] Performed By: #### 2 276-4, 2132-04 #### [facility] CLIA [id number] [address] [place] [address] [place] #### 14885-0 #### [facility] CLIA [id number] [address] [place] [address] [place] [facility] CLIA [id number] [address] [place] [address] [place] Calcium [Mass/Vol] 10.5 mg/dL High 8.5-10.2 [facility] Comment on above: Order Comment: Speci men Type: BLOOD SPECIMEN [facility] Address: [address] [place] [address] Performed By: #### 2 276-4, 2132-04 #### [facility] CLIA [id number] [address] [place] [address] [place] #### 12244-8 #### [facility] CLIA [id number] [address] [place], [place] [address] [place] [facility] CLIA [id number] [address] [place] [address] [place] Chloride [Moles/Vol] 101 mmol/L Normal 98-107 [facility] Comment on above: Order Comment: Speci men Type: BLOOD SPECIMEN Order[facility] Address: [address] [place] [address] Performed By: #### 2 276-4, 2132-04 #### [facility] CLIA [id number] [address] [place] [address] [place] #### 94705-6 #### [facility] CLIA [id number] [address] [place] [address] [place] [facility] CLIA [id number] [address] [place] [address] [place] CO2 [Moles/Vol] 26 mmol/L Normal 22-30 [facility] Comment on above: Order Comment: Speci men Type: BLOOD SPECIMEN [facility] Address: [address] [place] [address] Performed By: #### 2 276-4, 2132-04 #### [facility] CLIA [id number] [address] [place] [address] [place] #### 22614-1 #### [facility] CLIA [id number] [address] [place] [address] [place] [facility] CLIA [id number] [address] [place] [address] [place] Creatinine [Mass/Vol] 1.63 mg/dL High 0.58-0.96 [facility] Comment on above: Order Comment: Speci men Type: BLOOD SPECIMEN [facility] Address: [address] [place] [address] Performed By: #### 2 276-4, 2132-04 #### [facility] CLIA [id number] [address] [place] [address] [place] #### 20243-0 #### [facility] CLIA [id number] [address] [place] [address] [place] [facility] [id number] [address] [place] [address] [place] Creatinine and Glomerular filtration rate.predicted panel (S/P/Bld) 33 mL/min/1.73m??? Low >=60 [facility] Comment on above: Order Comment: Chelly burks Type: BLOOD SPECIMEN [facility] Address: [address] [place] [address] Result Comment: Grace mated Glomerular Filtration Rate [...] reflect actual GFR. Performed By: #### 2 276-4, 2132-9 #### [facility] CLIA [id number] [address] [place] [address] [place] #### 90172-4 #### [facility] CLIA [id number] [address] [place] [address] [place] [facility] [id number] [address] [place] [address] [place] Glucose [Mass/Vol] 122 mg/dL High 74-99 [facility] Comment on above: Order Comment: Chelly burks Type: BLOOD SPECIMEN Order[facility] Facility[facility] Address: [address] [place] [address] Result Comment: The [place] Diabetes Association (ADA) provides guidance for cutoff [...] Standards of Medical Care in Diabetes 2016, [place] Diabetes Association. Diabetes Care. 2016.39(Suppl 1). Performed By: #### 2 276-, 2132-04 #### [facility] CLIA [id number] [address] [place] [address] [place] #### 86674-6 #### [facility] CLIA [id number] [address] [place] [address] [place] [facility] CLIA [id number] [address] [place] [address] [place] Potassium [Moles/Vol] 5.4 mmol/L High 3.7-5.1 [facility] Comment on above: Order Comment: Speci men Type: BLOOD SPECIMEN [facility] Address: [address] [place] [address] Performed By: #### 2 , 2132-04 #### [facility] CLIA [id number] [address] [place] [address] [place] #### 53476-0 #### [facility] CLIA [id number] [address] [place] [address] [place] [facility] [id number] [address] [place] [address] [place] Protein [Mass/Vol] 7.1 g/dL Normal 6.3-8.0 [facility] Comment on above: Order Comment: Speci men Type: BLOOD SPECIMEN [facility] Address: [address] [place] [address] Performed By: #### 2 2762132-04 #### [facility] CLIA [id number] [address] [place] [id number] [place] #### 00792-4 #### [facility] CLIA [id number] [address] [place] [address] [place] [facility] CLIA [id number] [address] [place] [address] [place] Sodium [Moles/Vol] 140 mmol/L Normal 136-144 [facility] Comment on above: Order Comment: Speci men Type: BLOOD SPECIMEN [facility] Address: [address] [place], [place] [address] Performed By: #### 2 276-4, 2132-04 #### [facility] CLIA [id number] [address] [place] [address] [place] #### 93237-8 #### [facility] CLIA [id number] [address] [place], [place] [address] [place] [facility] CLIA [id number] [address] [place] [address] [place] Urea nitrogen [Mass/Vol] 46 mg/dL High 7-21 [facility] Comment on above: Order Comment: Speci men Type: BLOOD SPECIMEN [facility] Address: [address] [place] [id number] Performed By: #### 2 276-4, 2132-04 #### [facility] CLIA [id number] [address] [place] [address] [place] #### 64400-4 #### [facility] CLIA [id number] [address] [place], [place] [address] [place] [facility] CLIA [id number] [address] [place] [address] [place] HbA1c (Bld)on 03-14-2024 Average glucose Estimated from glycated hemoglobin (Bld) [Mass/Vol] 143 mg/dL Normal [facility] Comment on above: Order Comment: Chelly burks Type: BLOOD SPECIMEN [facility] Address: [address] [place] [address] Result Comment: eAG: (Estimated average glucose) is a calculated value from HgbA1c and is retention representative of the average blood glucose level in the last 2-3 month period. Performed By: #### 4 537-7, 62446-2 #### [facility] CLIA [id number] [address] [place] [address] OF [facility] HbA1c (Bld) [Mass fraction] 6.6 % High 4.3-5.6 [facility] Comment on above: Order Comment: Chelly burks Type: BLOOD SPECIMEN [facility] Address: [address] [place] [address] Result Comment: [place] Diabetes Association guidelines indicate that patients with HgbA1c in the range 5.7-6.4% are at increased risk for development of diabetes, and intervention by lifestyle modification may be beneficial. HgbA1c greater or equal to 6.5% is considered diagnostic of diabetes. Performed By: #### 4 537-7, 17788-9 #### [facility] CLIA [id number] [address] [place] [address] OF [facility] LIPID PANEL, NONFASTINGon Cholesterol [Mass/Vol] 111 mg/dL Normal <200 [facility] Comment on above: Order Comment: Chelyl burks Type: BLOOD SPECIMEN [facility] Address: [address] [place] [address] Result Comment: <200 mg/dL, Desirable 200-239 mg/dL, Borderline high >239 mg/dL, High Performed By: #### 2 276-4, 2132-9 #### [facility] CLIA [id number] [address] [place] [address] OF [facility] #### 83947-6 #### [facility] CLIA [id number] [address] [place] [address] [place] [facility] CLIA [id number] [address] [place] [address] [place] HDL CHOLESTEROL, NF 42 mg/dL Normal >39 [facility] Comment on above: Order Comment: Speci men Type: BLOOD SPECIMEN [facility] Address: [address] [place] [address] Result Comment: 40-5 9 mg/dL, Acceptable >59 mg/dL, High: Negative risk factor for coronary heart disease <40 mg/dL, Low: Positive risk factor for coronary heart disease Performed By: #### 2 276-4, 2132-04 #### [facility] CLIA [id number] [address] [place] [address] [place] #### 96053-3 #### [facility] CLIA [id number] [facility] [place] [address] [place] [facility] CLIA [id number] [address] [place] [address] [place] LDL CHOLESTEROL, NF 50 mg/dL Normal <100 [facility] Comment on above: Order Comment: Speci men Type: BLOOD SPECIMEN [facility] Address: [address] [place] [address] Result Comment: <100 mg/dL, Optimal 100-129 mg/dL, Near optimal/above optimal 130-159 mg/dL, Borderline high 160-189 mg/dL, High >189 mg/dL, Very high Secondary prevention optimal LDL Cholesterol levels are recommended to be < 70 mg/dL Performed By: #### 2 276-4, 2132-04 #### [facility] CLIA [id number] [address] [place] [address] [place] #### 23904-1 #### [facility] CLIA [id number] [facility] [place] [address] [place] [facility] CLIA [id number] [address] [place] [address] [place] LDL/HDL RATIO, NF 1.19 mg/dL Normal <2.54 [facility] Comment on above: Order Comment: Chelly burks Type: BLOOD SPECIMEN [facility] Address: [address] [place] [address] Result Comment: Refe rence: 1. National Cholesterol Education Program ATP III Guideline At-A-Glance Quick Desk Reference: National Heart, Lung, and Blood [place]. National Institutes of Health. 2001: NIH Publication No. 01-3305. 2. An International Atherosclerosis Society position paper: global recommendations for the management of dyslipidemia: executive summary, Atherosclerosis. 2014: 232(2):410-413. Performed By: #### 2 276-4, 2132-04 #### [facility] CLIA [id number] [address] [place] [address] [place] #### 25499-0 #### [facility] CLIA [id number] [address] [place] [address] [place] [facility] CLIA [id number] [address] [place] [address] [place] NON HDL CHOL, NF 69 mg/dL Normal <130 [facility] Comment on above: Order Comment: Chelly burks Type: BLOOD SPECIMEN Ordering Facility: [facility] Address: [address] [place] [address] Result Comment: <130 mg/dL, Optimal 130-159 mg/dL, Near optimal/above optimal 160-189 mg/dL, Borderline high 190-219 mg/dL, High >219 mg/dL, Very high Secondary prevention optimal non HDL Cholesterol levels are recommended to be <100 mg/dL Performed By: #### 2 276-4, 2132-04 #### [facility] CLIA [id number] [address] [id number] [place] #### 19853-6 #### [facility] CLIA [id number] [address] [place], [place] [address] [place] [facility] CLIA [id number] [address] [place] [address] [place] T CHOL/HDL RATIO NF 2.64 mg/dL Normal <5.10 [facility] Comment on above: Order Comment: Speci men Type: BLOOD SPECIMEN Ordering Facility: [facility] Address: [address] [id number] Performed By: #### 2 276-4, 2132-04 #### [facility] CLIA [id number] [address] [place] [address] [place] #### 42288-2 #### [facility] CLIA [id number] [address] [place] [address] [place] [facility] CLIA [id number] [address] [place] [address] [place] TRIGLYCERIDES, NF 93 mg/dL Normal <150 [facility] Comment on above: Order Comment: Speci men Type: BLOOD SPECIMEN Ordering Facility: [facility] Address: [address] [id number] Result Comment: <150 mg/dL, Normal 150-199 mg/dL, Borderline high 200-499 mg/dL, High >499 mg/dL, Very high Performed By: #### 2 276-4, 2132-04 #### [facility] CLIA [id number] [address] [place] [address] [place] #### 23327-7 #### [facility] CLIA [id number] [address] [place], [place] [address] [place] [facility] CLIA [id number] [address] [place] [address] [place] VLDL CHOLESTEROL, NF 19 mg/dL Normal <30 [facility] Comment on above: Order Comment: Speci men Type: BLOOD SPECIMEN Ordering Facility: [facility] Address: [address] [place] [address] Performed By: #### 2 276-4, 2132-04 #### [facility] CLIA [id number] [address] [place] [address] [place] #### 42635-0 #### [facility] CLIA [id number] [address] [place] [address] [place] [facility] CLIA [id number] [address] [place] [address] [place] TSH SerPl-aCncon 03-14-2024 TSH Qn 3.590 m[IU]/L Normal 0.270-4.200 [facility] Comment on above: Order Comment: Speci men Type: BLOOD SPECIMEN Ordering Facility: [facility] Address: [address] [place] [address] Performed By: #### 2 276-4, 2132-04 #### [facility] CLIA [id number] [address] [place] [address] [place] #### 43223-8 #### [facility] CLIA [id number] [address] [place] [address] [place] [facility] CLIA [id number] [address] [place] [address] [place] levETIRAcetam SerPl-mCncon 0 03-14-2024 levETIRAcetam [Mass/Vol] 57.3 ug/mL High 12.0-46.0 [facility] Comment on above: Order Comment: Speci men Type: BLOOD SPECIMEN Ordering Facility: [facility] Address: [address] [place], [place] [id number] Result Comment: This test is not suitable [...] developed and its performance characteristics determined by [facility]'s Alverto Dang [facility] [place] ([facility] It has not been cleared or approved by the FDA. [facility] is regulated under CLIA as qualified to perform high-complexity testing. This test is used for clinical purposes. It should not be regarded as investigational or for research. Performed By: #### 4 537-7, 81518-7 #### [facility] CLIA [id number] [address] [place], [place] [id number] [facility] CNOVon 12-09-2023 CNOV Office Visit (INTMWS ) DALIA LOPEZ ([id number]) 1950 F Date Time Provider Department 12/09/23 9:00 AM LENIN BHATT INTMWS During your visit today, we recorded the following information about you: Temperature Pulse Respiration Blood pressure 98.4 degrees 76/minute 20/minute 118/60 Weight 70.8 kg Lenin Bhatt MD 12/09/2023 9:58 AM Signed This note was created using NoteWriter. Subjective Daliajack Lopez is a 73 year old female [...] As Late Effect of Cerebrovascular Accident (Cva) ([facility]) Pvd (Peripheral Vascular Disease) ([facility]) Acquired Hypothyroidism Hyperlipidemia Anxiety Associated With Depression Impaired Fasting Glucose Mass of Left Kidney Urinary Incontinence Bronchospasm Acute On Chronic Respiratory Failure With Hypoxemia ([facility]) Ischemic Cardiomyopathy Chronic Systolic (Congestive) Heart Failure ([facility]) Current Moderate Episode of Major Depressive Disorder ([facility]) Sacral Decubitus Ulcer, Stage II ([facility]) Kidney Insufficiency Bacteriuria With Pyuria Arteriosclerosis of Coronary Artery Closed Head Injury History of Stroke Lbbb (Left Bundle Branch Block) Leukopenia Recurrent Falls Seizure ([facility]) Covid-19 Localization-Related Epilepsy ([facility]) Open Wound of Hand Chronic Bronchitis, Unspecified Chronic Bronchitis Type ([facility]) Social History Tobacco Use Smoking [...] No wheezi (more content not included)... Normal [facility] Bacteria identified Anaer cx Nom (Unsp spec)Ordered By: Catarino Dominguez on 07-01-2023 Anaerobic Culture Prevotella oralis [facility] Anaerobic Culture Anaerobic cocci [facility] Bacteria identified Cx Nom ( Wound)Ordered By: Catarino Dominguez on 07-01-2023 Wound Culture Negative [facility] Gram stain for investigation of transfusion reactionOrdered By: Catarino Dominguez on 07-01-2023 Microscopic observation Gram stain Nom (Unsp spec) [facility] US KIDNEY/BLADDERon 04-19-20 [facility] Anaerobic cultureOrdered By: Catarino Dominguez on 03-25-2023 Bacteria identified Anaer cx Nom (Unsp spec) No growth in 5 days. [facility] Gram stain for investigation of transfusion reactionOrdered By: Catarino Dominguez on 03-25-2023 Microscopic observation Gram stain Nom (Unsp spec) [facility] Routine wound cultureOrdered By: Catarino Dominguez on 03-25-2023 Bacteria identified Cx Nom (Wound) No growth aerobically. [facility] RUSSELL SCREENINGon 03-22-2023 [facility] XR CHEST 2V FRONTAL/LATon [facility] ECG COMPLETEon 06-10-2022 Atrial Rate 78 BPM [facility] Calculated P [place] 82 degrees [facility] Calculated R [place] 24 degrees [facility] Calculated T [place] 57 degrees [facility] P-R Interval 150 ms [facility] QRS Duration 120 ms [facility] QT Interval 430 ms [facility] QTC Calculation ([place]) 490 ms [facility] Ventricular Rate 78 BPM [facility] UA DIP, URINE (POC)on 2021 BILIRUBIN UA (POCT) Negative Negative [facility] CLARITY UA (POCT) Clear [facility] COLOR UA (POCT) Yellow [facility] GLUCOSE UA (POCT) Negative Negative mg/dL [facility] HEMOGLOBIN/BLOOD UA (POCT) Moderate Abnormal Negative [facility] KETONE UA (POCT) Negative Negative mg/dL [facility] LEUKOCYTES UA (POCT) Small Abnormal Negative [facility] NITRITE UA (POCT) Positive Abnormal Negative [facility] PH UA (POCT) 5.5 4.5 - 8.0 [facility] Protein Ql (U) Negative Negative mg/dL [facility] SPECIFIC GRAVITY UA (POCT) 1.025 1.005 - 1.030 [facility] UROBILINOGEN UA (POCT) 0.2 E.U./dL Tiffanie l E.U./dL [facility] XR HAND MINIMUM 3 VIEWS RIGH [...] Date: 10/30/2019 7:48:16 PM Ordering Provider:Indio Dupree [facility] ([place]) .Auto Diffon 08-14-2019 Ammonia (P) [Mass/Vol] 0.60 10 3/mcL Normal 0.15-1.00 [facility] ([place] Comment on above: Performed By: #### C LIZET BILL ANEU #### [place] [address] #### BMP, TROP, PBNP, GFR #### [address] [address] Basophils (Bld) [#/Vol] 0.10 10 3/mcL Normal 0.00-0.19 [facility] ([place]) Comment on above: Performed By: #### C LIZET BILL ANEU #### [place] [address] #### BMP, TROP, PBNP, GFR #### [address] [address] Basophils/100 WBC (Bld) 0.8 % Normal 0.0-2.5 [facility] ([place]) Comment on above: Performed By: #### C LIZET BILL ANEU #### [place] [address] #### BMP, TROP, PBNP, GFR #### [address] [address] Eosinophils (Bld) [#/Vol] 0.10 10 3/mcL Normal 0.00-0.40 [facility] ([place] Comment on above: Performed By: #### C BC, ADIFF, ANEU #### [place] [address] #### BMP, TROP, PBNP, GFR #### [address] [address] Eosinophils/100 WBC (Bld) 1.9 % Normal 0.0-7.0 [facility] ([place] Comment on above: Performed By: #### C BC, ADIFF, ANEU #### [place] [address] #### BMP, TROP, PBNP, GFR #### [address] [address] Lymphocytes (Bld) [#/Vol] 1.60 10 3/mcL Normal 0.77-3.85 [facility] ([place] Comment on above: Performed By: #### C BC, ADIFF, ANEU #### [place] [address] #### BMP, TROP, PBNP, GFR #### [address] [address] Lymphocytes/100 WBC (Bld) 21.3 % Normal 10.0-50.0 [facility] ([place] Comment on above: Performed By: #### C BC, ADIFF, ANEU #### [place] [address] #### BMP, TROP, PBNP, GFR #### [address] [address] Monocytes/100 WBC (Bld) 7.8 % Normal 1.7-13.0 [facility] [place] Comment on above: Performed By: #### C BC, ADIFF, ANEU #### [place] [address] #### BMP, TROP, PBNP, GFR #### [address] [address] Neutrophils/100 WBC (Bld) 68.2 % Normal 37.0-80.0 [facility] ([place] Comment on above: Performed By: #### C BC, ADIFF, ANEU #### [address] [address] #### BMP, TROP, PBNP, GFR #### [address] [address] .GFRon 08-14-2019 GFR Non- 66 ml/min/1.73sqm Normal [facility] ([place]) Comment on above: Result Comment: GFR Population [...] By: #### C BC, ADIFF, ANEU #### [address] [address] #### BMP, TROP, PBNP, GFR #### [address] [address] GFR 80 ml/min/1.73sqm Normal [facility] ([place] Comment on above: Result Comment: GFR Population [...] By: #### C BC, ADIFF, ANEU #### [place] [address] #### BMP, TROP, PBNP, GFR #### [address] [address] .NEUABSon 08-14-2019 Neutrophils (Bld) [#/Vol] 5.00 10 3/mcL Normal 2.85-6.16 [facility] ([place] Comment on above: Performed By: #### C BC, ADIFF, ANEU #### [place] [address] #### BMP, TROP, PBNP, GFR #### [address] 08-14-2019 Calcium [Mass/Vol] 9.2 mg/dL Normal 8.4-10.2 [facility] ([place]) Comment on above: Performed By: #### C BC, ADIFF, ANEU #### [place] [address] #### BMP, TROP, PBNP, GFR #### [place] [address] Chloride [Moles/Vol] 104 mmol/L Normal 98-107 [facility] ([place]) Comment on above: Performed By: #### C BC, ADIFF, ANEU #### [place] [address] #### BMP, TROP, PBNP, GFR #### [place] [address] CO2 [Moles/Vol] 29 mmol/L Normal 23-31 [facility] ([place] Comment on above: Performed By: #### C BC, ADIFF, ANEU #### [place] [address] #### BMP, TROP, PBNP, GFR #### [place] [address] Creatinine [Mass/Vol] 0.85 mg/dL Normal 0.55-1.02 [facility] ([place]) Comment on above: Performed By: #### C BC, ADIFF, ANEU #### [address] [address] #### BMP, TROP, PBNP, GFR #### [address] [address] Electrolyte Balance 11.0 mEq/L [facility] [place] Comment on above: Performed By: #### C BC, ADIFF, ANEU #### [address] [address] #### BMP, TROP, PBNP, GFR #### [address] [address] Glucose [Mass/Vol] 87 mg/dL Normal 80-115 [facility] ([place]) Comment on above: Performed By: #### C BC, ADIFF, ANEU #### [address] [address] #### BMP, TROP, PBNP, GFR #### [address] [address] Potassium [Moles/Vol] 4.2 mmol/L Normal 3.5-5.1 [facility] ([place]) Comment on above: Performed By: #### C BC, ADIFF, ANEU #### [address] [address] #### BMP, TROP, PBNP, GFR #### [address] [address] Sodium [Moles/Vol] 144 mmol/L Normal 136-145 [facility] ([place] Comment on above: Performed By: #### C BC, ADIFF, ANEU #### [address] [address] #### BMP, TROP, PBNP, GFR #### [address] [address] Urea nitrogen [Mass/Vol] 18 mg/dL Normal 7-18 [facility] ([place] Comment on above: Performed By: #### C BC, ADIFF, ANEU #### [place] [address] #### BMP, TROP, PBNP, GFR #### [address] [address] Urea nitrogen/Creatinine [Mass ratio] 21 ratio Normal 7-27 [facility] ([place] Comment on above: Performed By: #### C BC, ADIFF, ANEU #### [place] [address] #### BMP, TROP, PBNP, GFR #### [place] [address] CBCon 08-14-2019 Erythrocyte distribution width (RBC) [Ratio] 14.0 % Normal 11.5-14.5 [facility] ([place] Comment on above: Performed By: #### C BC, ADIFF, ANEU #### [place] [address] #### BMP, TROP, PBNP, GFR #### [place] [address] Hematocrit (Bld) [Volume fraction] 37.9 % Normal 37.0-47.0 [facility] ([place] Comment on above: Performed By: #### C BC, ADIFF, ANEU #### [place] [address] #### BMP, TROP, PBNP, GFR #### [place] [address] Hemoglobin (Bld) [Mass/Vol] 12.7 G/dL Normal 12.0-16.0 [facility] ([place] Comment on above: Performed By: #### C BC, ADIFF, ANEU #### [place] [address] #### BMP, TROP, PBNP, GFR #### [place] [id number] MCH (RBC) [Entitic mass] 30.6 pg Normal 27.0-31.2 [facility] ([place] Comment on above: Performed By: #### C BC, ADIFF, ANEU #### [address] [address] #### BMP, TROP, PBNP, GFR #### [address] [address] MCHC (RBC) [Mass/Vol] 33.5 G/dL Normal 33.0-37.0 [facility] ([place] Comment on above: Performed By: #### C BC, ADIFF, ANEU #### [place] [address] #### BMP, TROP, PBNP, GFR #### [place] [id number] MCV (RBC) [Entitic vol] 91.3 fL Normal 80.0-94.0 [facility] [place] Comment on above: Performed By: #### C BC, ADIFF, ANEU #### [place] [address] #### BMP, TROP, PBNP, GFR #### [place] [address] Platelet mean volume (Bld) [Entitic vol] 8.3 fL Normal 7.4-10.4 [facility] ([place] Comment on above: Performed By: #### C BC, ADIFF, ANEU #### [place] [address] #### BMP, TROP, PBNP, GFR #### [place] [id number] Platelets (Bld) [#/Vol] 299 10 3/mcL Normal 130-400 [facility] ([place] Comment on above: Performed By: #### C BC, ADIFF, ANEU #### [place] [address] #### BMP, TROP, PBNP, GFR #### [place] [phone] RBC (Bld) [#/Vol] 4.15 10 6/mcL Low 4.20-5.40 [facility] ([place]) Comment on above: Performed By: #### C BC, ADIFF, ANEU #### [place] [address] #### BMP, TROP, PBNP, GFR #### [address] [address] WBC (Bld) [#/Vol] 7.30 10 3/mcL Normal 4.60-10.80 [facility] ([place]) Comment on above: Performed By: #### C LIZET BILL ANEU #### [place] [address] #### BMP, TROP, PBNP, GFR #### [place] [address] PBNPon 08-14-2019 Natriuretic peptide B (Bld) [Mass/Vol] 275 pg/mL High 0-125 [facility] ([place] Comment on above: Result Comment: NT-p roBNP results of less than 300 pg/mL effectively rules out acute congestive heart failure with 99% negative predictive value. Performed By: #### C LIZET BILL ANEU #### [place] [address] #### BMP, TROP, PBNP, GFR #### [place] [address] TROPon 08-14-2019 Troponin I.cardiac [Mass/Vol] ng/mL Normal 0.000-0.040 [facility] ([place]) Comment on above: Result Comment: Trop onin I reference range: 0.00-0.040 ng/mL Negative and non-diagnostic. >0.040 ng/mL Consistent with cardiac damage, increased clinical risk and possibility of myocardial infarction. Serial measurements, a rise & fall in test results, clinical history, appropriate symptoms and/or ECG changes may help assess possibility of [place]. *Other non-acute coronary syndrome conditions such as CHF, myocarditis, pulmonary emboli, sepsis and cardiac surgery could result in myocardial damage and increased troponin levels. Performed By: #### C LIZET BILL, ANEU #### [place] [address] #### BMP, TROP, PBNP, GFR #### [place] [address] XR CHEST 1 VIEWon 08-14-2019 XR CHEST [...] Sign Date: 08/14/2019 5:46:44 PM Ordering Provider:Indio [facility] ([place]) Vital Signs Date Time Vital Sign Value Performing Clinician Facility 02-19-2025 14:09-0400 Body mass index (BMI) [Ratio] 0 kg/m2 Dr. Lenin Bhatt MD Work Phone: 8(829)756-748792 [place] [address] 02-19-2025 14:09-0400 Body temperature 97.3 [degF] Dr. Lenin Bhatt MD Work Phone: 1(578)667-010707 [place] [address] 02-19-2025 14:09-0400 Diastolic blood pressure 57 mm[Hg] Dr. Lenin Bhatt MD Work Phone: 0(254)605-878092 [place] [address] 02-19-2025 14:09-0400 Heart rate 94 /min Dr. Lenin Bhatt MD Work Phone: 3(327)527-254292 [place] [address] 02-19-2025 14:09-0400 Respiratory rate 18 /min Dr. Lenin Bhatt MD Work Phone: 1(113)088-047892 [place] [address] 02-19-2025 14:09-0400 Systolic blood pressure 127 mm[Hg] Dr. Lenin Bhatt MD Work Phone: 4(294)081-485992 [place] [address] 01-28-2025 00:26-0400 Body weight 63.[address] Leinn Bhatt MD Work Phone: 0(117)506-140292 [place] [address] 01-25-2025 10:08-0400 Body mass index (BMI) [Ratio] 0 kg/m2 Dr. Lenin Bhatt MD Work Phone: [facility] 01-25-2025 10:08-0400 Body temperature 97.3 [degF] Dr. Lenin Bhatt MD Work Phone: [facility] 01-25-2025 10:08-0400 Diastolic blood pressure 68 mm[Hg] Dr. Lenin Bhatt MD Work Phone: [facility] 01-25-2025 10:08-0400 Heart rate 80 /min Dr. Lenin Bhatt MD Work Phone: [facility] 01-25-2025 10:08-0400 Respiratory rate 18 /min Dr. Lenin Bhatt MD Work Phone: [facility] 01-25-2025 10:08-0400 Systolic blood pressure 136 mm[Hg] Dr. Lenin Bhatt MD Work Phone: [facility] 11-28-2024 00:44-0400 Body weight 63.[address] Lenin Bhatt MD Work Phone: [facility] 11-20-2024 16:33-0400 Body mass index (BMI) [Ratio] 25.24 kg/m2 Lenin Bhatt MD Work Phone: [facility] 11-20-2024 16:33-0400 Body temperature 97.5 [degF] Lenin Bhatt MD Work Phone: [facility] 11-20-2024 16:33-0400 Body weight 64.2 kg Lenin Bhatt MD Work Phone: [facility] 11-20-2024 16:33-0400 Diastolic blood pressure 68 mm[Hg] Lenin Bhatt MD Work Phone: [facility] 11-20-2024 16:33-0400 Heart rate 84 /min Lenin Bhatt MD Work Phone: [facility] 11-20-2024 16:33-0400 Respiratory rate 16 /min Lenin Bhatt MD Work Phone: [facility] 11-20-2024 16:33-0400 Systolic blood pressure 130 mm[Hg] Lenin Bhatt MD Work Phone: [facility] 11-13-2024 08:46-0400 Body height 162.[address] Lenin Bhatt MD Work Phone: [facility] 11-13-2024 08:46-0400 Body weight 63.[address] Lenin Bhatt MD Work Phone: 9(067)335-850307 [place] [address] 11-09-2024 10:49-0400 Body mass index (BMI) [Ratio] 0 kg/m2 Dr. Lenin Bhatt MD Work Phone: 3(901)522-614507 [place] [address] 11-09-2024 10:49-0400 Body temperature 98 [degF] Dr. Lenin Bhatt MD Work Phone: 1(696)055-411807 [place] [address] 11-09-2024 10:49-0400 Diastolic blood pressure 55 mm[Hg] Dr. Lenin Bhatt MD Work Phone: 9(125)875-185092 [place] [address] 11-09-2024 10:49-0400 Heart rate 87 /min Dr. Lenin Bhatt MD Work Phone: 7(947)749-252292 [place] [address] 11-09-2024 10:49-0400 Respiratory rate 18 /min Dr. Lenin Bhatt MD Work Phone: 0(926)436-408092 [place] [address] 11-09-2024 10:49-0400 Systolic blood pressure 146 mm[Hg] Dr. Lenin Bhatt MD Work Phone: 2(919)808-376592 [place] [address] 10-26-2024 11:38-0500 Body mass index (BMI) [Ratio] 0 kg/m2 Dr. Lenin Bhatt MD Work Phone: 4(268)771-748792 [place] [address] 10-26-2024 11:38-0500 Body temperature 97.7 [degF] Dr. Lenin Bhatt MD Work Phone: 2(711)022-465392 [place] [address] 10-26-2024 11:38-0500 Diastolic blood pressure 58 mm[Hg] Dr. Lenin Bhatt MD Work Phone: 1(522)861-231207 [place] [address] 10-26-2024 11:38-0500 Heart rate 88 /min Dr. Lenin Bhatt MD Work Phone: 0(841)045-062407 [place] [address] 10-26-2024 11:38-0500 Respiratory rate 14 /min Dr. Lenin Bhatt MD Work Phone: 1(861)064-079307 [place] [address] 10-26-2024 11:38-0500 Systolic blood pressure 105 mm[Hg] Dr. Lenin Bhatt MD Work Phone: 2(287)599-203307 [place] [address] 09-30-2024 01:42-0500 Body weight 2.[address] Lenin Bhatt MD Work Phone: 7(498)537-808507 [place] [address] 09-27-2024 14:02-0500 Body mass index (BMI) [Ratio] 0 kg/m2 Dr. Lenin Bhatt MD Work Phone: 0(669)110-007907 [place] [address] 09-27-2024 14:02-0500 Body temperature 97.9 [degF] Dr. Lenin Bhatt MD Work Phone: 8(689)068-413107 [place] [address] 09-27-2024 14:02-0500 Diastolic blood pressure 48 mm[Hg] Dr. Lenin Bhatt MD Work Phone: 3(788)541-979507 [place] [address] 09-27-2024 14:02-0500 Heart rate 88 /min Dr. Lenin Bhatt MD Work Phone: 0(791)159-611507 [place] [address] 09-27-2024 14:02-0500 Respiratory rate 16 /min Dr. Lenin Bhatt MD Work Phone: 3(099)060-348607 [place] [address] 09-27-2024 14:02-0500 Systolic blood pressure 119 mm[Hg] Dr. Lenin Bhatt MD Work Phone: 0(789)638-145007 [place] [address] 08-30-2024 00:08-0500 Body weight 2.[address] Lenin Bhatt MD Work Phone: 4(340)264-970307 [place] [address] 08-29-2024 13:53-0500 Body mass index (BMI) [Ratio] 23.58 kg/m2 Moira Yassine [employer]AT[employer] Work Phone: [facility] 08-29-2024 13:53-0500 Body temperature 97.81 [degF] Moira Yassine AMBULATORY ANALYST[employer] Work Phone: [facility] 08-29-2024 13:53-0500 Body weight 60 kg Moira Yassine AMBULATORY ANALY[employer] Work Phone: [facility] 08-29-2024 13:53-0500 Diastolic blood pressure 64 mm[Hg] Moira Yassine AMBULATORY ANALYST.[employer] Work Phone: [facility] 08-29-2024 13:53-0500 Heart rate 75 /min Moira Yassine AMBULATORY ANALY[employer] Work Phone: [facility] 08-29-2024 13:53-0500 Respiratory rate 14 /min Moira Yassine AMBULATORY A[employer] Work Phone: [facility] 08-29-2024 13:53-0500 SaO2% (BldA) [Mass fraction] 94 % Moira Yassine AMBULATORY ANALYST.ONE PIECE EXPANSION MAKER HAND Work Phone: [facility] 08-29-2024 13:53-0500 Systolic blood pressure 118 mm[Hg] Moira Yassine AMBULATORY ANALYST.ONE [employer]IE[employer] EXP[employer]ION MAKER [employer] Work Phone: [facility] 08-16-2024 14:07-0500 Body mass index (BMI) [Ratio] 0 kg/m2 Dr. Lenin Bhatt MD Work Phone: [facility] 08-16-2024 14:07-0500 Diastolic blood pressure 55 mm[Hg] Dr. Lenin Bhatt MD Work Phone: [facility] 08-16-2024 14:07-0500 Heart rate 88 /min Dr. Lenin Bhatt MD Work Phone: [facility] 08-16-2024 14:07-0500 Respiratory rate 18 /min Dr. Lenin Bhatt MD Work Phone: [facility] 08-16-2024 14:07-0500 Systolic blood pressure 135 mm[Hg] Dr. Lenin Bhatt MD Work Phone: [facility] 08-02-2024 14:44-0500 Body weight 2.[address] Lenin Bhatt MD Work Phone: [facility] 07-07-2024 13:47-0500 Body mass index (BMI) [Ratio] 24.96 kg/m2 Lenin Bhatt MD Work Phone: [facility] 07-07-2024 13:47-0500 Body weight 63.5 kg Lenin Bhatt MD Work Phone: [facility] 07-07-2024 13:47-0500 Diastolic blood pressure 72 mm[Hg] Lenin Bhatt MD Work Phone: [facility] 07-07-2024 13:47-0500 Heart rate 84 /min Lenin Bhatt MD Work Phone: [facility] 07-07-2024 13:47-0500 SaO2% (BldA) [Mass fraction] 96 % Lenin Bhatt MD Work Phone: [facility] 07-07-2024 13:47-0500 Systolic blood pressure 134 mm[Hg] Lenin Bhatt MD Work Phone: [facility] 05-24-2024 13:52-0400 Body mass index (BMI) [Ratio] 26.75 kg/m2 Deepti Auguste MD Work Phone: [facility] 05-24-2024 13:52-0400 Body weight 68.04 kg Deepti Auguste MD Work Phone: [facility] 05-24-2024 13:52-0400 Diastolic blood pressure 80 mm[Hg] Deepti Auguste MD Work Phone: [facility] 05-24-2024 13:52-0400 Heart rate 90 /min Deepti Auguste MD Work Phone: [facility] 05-24-2024 13:52-0400 Respiratory rate 16 /min Deepti Auguste MD Work Phone: [facility] 05-24-2024 13:52-0400 SaO2% (BldA) [Mass fraction] 94 % Deepti Auguste MD Work Phone: [facility] Comment on above: room air 05-24-2024 13:52-0400 Systolic blood pressure 126 mm[Hg] Deepti Auguste MD Work Phone: [facility] 03-14-2024 14:05-0400 Body height 159.5 cm Moira Yassine AMBULATORY ANALYST.[employer]ION MAKER HAND Work Phone: [facility] 03-14-2024 14:05-0400 Body mass index (BMI) [Ratio] 26.75 kg/m2 Moira Yassine AMBULATORY ANALYST.ONE [employer]ION MAKER HAND Work Phone: [facility] 03-14-2024 14:05-0400 Body weight 68.04 kg Moira Yassine AMBULATORY ANALYST.[employer] EXP[employer]ION MAKER HAND Work Phone: [facility] 03-14-2024 14:05-0400 Diastolic blood pressure 56 mm[Hg] Moira Yassine AMBULATORY ANALYST.[employer]ION MAKER HAND Work Phone: [facility] 03-14-2024 14:05-0400 Heart rate 90 /min Moira Yassine AMBULATORY ANALYST.ONE [employer] EXP[employer]ION MA[employer]ER HAND Work Phone: [facility] 03-14-2024 14:05-0400 Respiratory rate 18 /min Moira Yassine AMBULATORY ANALYST.[employer]ION MA[employer]ER HAND Work Phone: [facility] 03-14-2024 14:05-0400 SaO2% (BldA) [Mass fraction] 96 % Moira Yassine AMBULATORY ANALYST.[employer]ION MA[employer]ER [employer] Work Phone: [facility] 03-14-2024 14:05-0400 Systolic blood pressure 98 mm[Hg] Moira Yassine AMBULATORY ANALYST.[employer]ER [employer] Work Phone: [facility] 12-09-2023 09:03-0400 Body temperature 98.4 [degF] Lenin Bhatt MD Work Phone: [facility] 12-09-2023 09:03-0400 Body weight 70.76 kg Lenin Bhatt MD Work Phone: [facility] 12-09-2023 09:03-0400 Diastolic blood pressure 60 mm[Hg] Lenin Bhatt MD Work Phone: [facility] 12-09-2023 09:03-0400 Heart rate 76 /min Lenin Bhatt MD Work Phone: [facility] 12-09-2023 09:03-0400 Respiratory rate 20 /min Lenin Bhatt MD Work Phone: [facility] 12-09-2023 09:03-0400 Systolic blood pressure 118 mm[Hg] Lenin Bhatt MD Work Phone: [facility] 07-01-2023 11:00-0400 Body mass index (BMI) [Ratio] 29.2 kg/m2 Dr. Lenin Bhatt Work Phone: [facility] 07-01-2023 11:00-0400 Body temperature 96.2 [degF] Dr. Lenin Bhatt Work Phone: [facility] 07-01-2023 11:00-0400 Diastolic blood pressure 44 mm[Hg] Dr. Lenin Bhatt Work Phone: [facility] 07-01-2023 11:00-0400 Heart rate 81 /min Dr. Lenin Bhatt Work Phone: [facility] 07-01-2023 11:00-0400 Respiratory rate 20 /min Dr. Lenin Bhatt Work Phone: [facility] 07-01-2023 11:00-0400 Systolic blood pressure 104 mm[Hg] Dr. Lenin Bhatt Work Phone: [facility] 06-30-2023 00:47-0400 Body weight 77.[address] Lenin Bhatt Work Phone: [facility] 06-10-2023 11:27-0400 Body mass index (BMI) [Ratio] 29.2 kg/m2 Dr. Lenin Bhatt Work Phone: [facility] 06-10-2023 11:27-0400 Body temperature 97.5 [degF] Dr. Lenin Bhatt Work Phone: [facility] 06-10-2023 11:27-0400 Diastolic blood pressure 48 mm[Hg] Dr. Lenin Bhatt Work Phone: [facility] 06-10-2023 11:27-0400 Heart rate 80 /min Dr. Lenin hBatt Work Phone: [facility] 06-10-2023 11:27-0400 Respiratory rate 16 /min Dr. Lenin Bhatt Work Phone: [facility] 06-10-2023 11:27-0400 Systolic blood pressure 126 mm[Hg] Dr. Lenin Bhatt Work Phone: [facility] 06-10-2023 10:05-0400 Body height 162.6 cm Moira Older AMBULATORY ANALYST.[employer] EXP[employer]ION MAKER HAND Work Phone: [facility] 06-10-2023 10:05-0400 Body temperature 97.11 [degF] Moira Older AMBULATORY ANALYST.[employer]ION MA[employer]ER HAND Work Phone: [facility] 06-10-2023 10:05-0400 Body weight 73.98 kg Moira Older AMBULATORY ANALYST.[employer] EXP[employer]ION MA[employer]ER HAND Work Phone: [facility] 06-10-2023 10:05-0400 Diastolic blood pressure 60 mm[Hg] Moira Older AMBULATORY ANALYST.[employer]ION MA[employer]ER [employer] Work Phone: [facility] 06-10-2023 10:05-0400 Heart rate 73 /min Moira Older AMBULATORY ANALYST.[employer]ION [employer]ER [employer] Work Phone: [facility] 06-10-2023 10:05-0400 SaO2% (BldA) [Mass fraction] 91 % Moira Older AMBULATORY ANALYST.[employer]ION [employer]ER [employer] Work Phone: [facility] 06-10-2023 10:05-0400 Systolic blood pressure 128 mm[Hg] Moira Older AMBULATORY ANALYST.[employer]ER [employer] Work Phone: [facility] 05-30-2023 00:35-0400 Body weight 77.[address] Lenin Bhatt Work Phone: [facility] 05-27-2023 11:39-0400 Body mass index (BMI) [Ratio] 29.2 kg/m2 Dr. Lenin Bhatt Work Phone: 7(007)346-891936 [address] 05-27-2023 11:39-0400 Body temperature 96.7 [degF] Dr. Lenin Bhatt Work Phone: 1(692)659-297292 [place] [address] 05-27-2023 11:39-0400 Heart rate 71 /min Dr. Lenin Bhatt Work Phone: 7(379)818-405992 [place] [address] 05-27-2023 11:39-0400 Respiratory rate 16 /min Dr. Lenin Bhatt Work Phone: 2(652)389-748192 [place] [address] 05-20-2023 10:56-0400 Diastolic blood pressure 40 mm[Hg] Dr. Lenin Bhatt Work Phone: 3(009)421-744992 [place] [address] 05-20-2023 10:56-0400 Systolic blood pressure 100 mm[Hg] Dr. Lenin Bhatt Work Phone: [facility] 04-30-2023 00:13-0400 Body weight 77.[address] Lenin Bhatt Work Phone: 5(860)696-664592 [place] [address] 04-22-2023 11:22-0400 Body mass index (BMI) [Ratio] 29.2 kg/m2 Dr. Lenin Bhatt Work Phone: 7(230)364-014192 [place] [address] 04-22-2023 11:22-0400 Body temperature 96.2 [degF] Dr. Lenin Bhatt Work Phone: 9(192)798-186392 [place] [address] 04-22-2023 11:22-0400 Diastolic blood pressure 50 mm[Hg] Dr. Lenin Bhatt Work Phone: [facility] 04-22-2023 11:22-0400 Heart rate 81 /min Dr. Lenin Bhatt Work Phone: [facility] 04-22-2023 11:22-0400 Respiratory rate 18 /min Dr. Lenin Bhatt Work Phone: [facility] 04-22-2023 11:22-0400 Systolic blood pressure 120 mm[Hg] Dr. Lenin Bhatt Work Phone: [facility] 04-15-2023 11:37-0400 Body height 162.6 cm Wilbur Youssef MD Work Phone: [facility] 04-15-2023 11:37-0400 Body weight 72.58 kg Wilbur Youssef MD Work Phone: [facility] 04-15-2023 11:37-0400 Diastolic blood pressure 66 mm[Hg] Wilbur Youssef MD Work Phone: [facility] 04-15-2023 11:37-0400 Heart rate 77 /min Wilbur Youssef MD Work Phone: [facility] 04-15-2023 11:37-0400 SaO2% (BldA) [Mass fraction] 97 % Wilbur Youssef MD Work Phone: [facility] 04-15-2023 11:37-0400 Systolic blood pressure 123 mm[Hg] Wilbur Youssef MD Work Phone: [facility] 03-30-2023 00:24-0400 Body weight 77.[address] Lenin Bhatt Work Phone: [facility] 03-25-2023 09:04-0400 Body height 162.[address] Lenin Bhatt Work Phone: [facility] 03-25-2023 09:04-0400 Body mass index (BMI) [Ratio] 29.2 kg/m2 Dr. Lenin Bhatt Work Phone: [facility] 03-25-2023 09:04-0400 Body temperature 97.6 [degF] Dr. Lenin Bhatt Work Phone: [facility] 03-25-2023 09:04-0400 Body weight 77.[address] Lenin Bhatt Work Phone: [facility] 03-25-2023 09:04-0400 Diastolic blood pressure 38 mm[Hg] Dr. Lenin Bhatt Work Phone: [facility] 03-25-2023 09:04-0400 Heart rate 83 /min Dr. Lenin Bhatt Work Phone: [facility] 03-25-2023 09:04-0400 Respiratory rate 16 /min Dr. Lenin Bhatt Work Phone: [facility] 03-25-2023 09:04-0400 Systolic blood pressure 95 mm[Hg] Dr. Lenin Bhatt Work Phone: [facility] 03-04-2023 16:22-0400 Body height 160 cm Lenin Bhatt MD Work Phone: [facility] 03-04-2023 16:22-0400 Body weight 72.58 kg Lenin Bhatt MD Work Phone: [facility] 03-04-2023 16:22-0400 Diastolic blood pressure 74 mm[Hg] Lenin Bhatt MD Work Phone: [facility] 03-04-2023 16:22-0400 Heart rate 84 /min Lenin Bhatt MD Work Phone: [facility] 03-04-2023 16:22-0400 Respiratory rate 20 /min Lenin Bhatt MD Work Phone: [facility] 03-04-2023 16:22-0400 SaO2% (BldA) [Mass fraction] 96 % Lenin Bhatt MD Work Phone: [facility] 03-04-2023 16:22-0400 Systolic blood pressure 124 mm[Hg] Lenin Bhatt MD Work Phone: [facility] 06-10-2022 13:02-0400 Body height 162.6 cm Jonathan Aguila MD Work Phone: [facility] 06-10-2022 13:02-0400 Body weight 70.76 kg Jonathan Aguila MD Work Phone: [facility] 06-10-2022 13:02-0400 Diastolic blood pressure 45 mm[Hg] Jonathan Aguila MD Work Phone: [facility] 06-10-2022 13:02-0400 Heart rate 83 /min Jonathan Aguila MD Work Phone: [facility] 06-10-2022 13:02-0400 Systolic blood pressure 113 mm[Hg] Jonathan Aguila MD Work Phone: [facility] 03-31-2022 13:26-0400 Body height 162.6 cm Zachariah Gonzales Jr., MD Work Phone: [facility] 03-31-2022 13:26-0400 Body weight 73.94 kg Zachariah Gonzales Jr., MD Work Phone: [facility] 12-12-2021 15:26-0400 SaO2% (BldA) [Mass fraction] 91 % Lenin Bhatt MD Work Phone: [facility] 12-12-2021 14:43-0400 Body temperature 97.3 [degF] Lenin Bhatt MD Work Phone: [facility] 12-12-2021 14:43-0400 Body weight 76.2 kg Lenin Bhatt MD Work Phone: [facility] 12-12-2021 14:43-0400 Diastolic blood pressure 62 mm[Hg] Lenin Bhatt MD Work Phone: [facility] 12-12-2021 14:43-0400 Heart rate 93 /min Lenin Bhatt MD Work Phone: [facility] 12-12-2021 14:43-0400 Respiratory rate 24 /min Lenin Bhatt MD Work Phone: [facility] 12-12-2021 14:43-0400 Systolic blood pressure 128 mm[Hg] Lenin Bhatt MD Work Phone: [facility] 10-05-2019 14:50-0500 BP Diastolic 83 mm[Hg] Aramis Bisvaleriano [facility] 10-05-2019 14:50-0500 BP Systolic 141 mm[Hg] Aramis Bisping [facility] 10-05-2019 14:50-0500 Pulse (Heart Rate) 79 /min Aramis Bisping [facility] 08-11-2018 13:31-0500 BP Diastolic 73 mm[Hg] Aramis Bisping [facility] 08-11-2018 13:31-0500 BP [facility]olic 126 mm[Hg[facility] 13:31-0500 Pulse (Heart Rate) 99 /[facility] 08-26-2017 09:47-0500 BP Diastolic 77 mm[Hg] Aramis Bisvaleriano [facility] Work Phone: 08-26-2017 09:47-0500 BP Systolic 120 mm[Hg] Aramis Bisvaleriano [facility] Work Phone: 08-26-2017 09:47-0500 Pulse (Heart Rate) 92 /min Aramis Cheng [facility] Work Phone: Encounters Encounter Date Encounter Type Care Provider Facility Start: 03-01-2025 ambulatory Efconcepcionbe Angelica Facili ty:[facility] Start: 03-01-2025 ambulatory Efewkathybe Angelica Facili ty:[facility] Start: 02-20-2025 ambulatory Alverto Carrasco Facility:[facility] Start: 02-20-2025 Non-patient / Non-visit Dr. Alverto powell MD -[facility] Start: 02-19-2025 End: 02-26-[address] Lenin Bhatt MD Work Phone: [facility] Start: 02-19-2025 End: 02-26-[address] Catarino Dominguez MD -[facility] Work Phone: Start: 02-15-2025 ambulatory Efdaniel Dominguez Facili ty:[facility] Start: 02-15-2025 Non-patient / Non-visit Dr. Luke Dominguez MD -[facility] Work Phone: Start: 02-01-2025 ambulatory Efdaniel Dominguez Facili ty:[facility] Start: 02-01-2025 Non-patient / Non-visit Dr. Luke Dominguez MD -[facility] Work Phone: Start: 01-25-2025 Non-patient / Non-visit Dr. Luke Dominguez MD -[facility] Work Phone: Start: 01-25-2025 End: 01-27-[address] Leinn Bhatt MD Work Phone: [facility] Work Phone: Start: 01-25-2025 End: 01-27-[address] Catarino Dominguez MD -[facility] Work Phone: Start: 01-18-2025 ambulatory Catarino Rodrigezi ty:[facility] Start: 01-18-2025 Non-patient / Non-visit Dr. Luke Dominguez MD [facility] Work Phone: Start: 12-28-2024 ambulatory Efdaniel Rodrigezi ty:[facility] Start: 12-28-2024 Non-patient / Non-visit Dr. 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 Luke Dominguez MD -[facility] Work Phone: Start: 11-09-2024 End: 11-27-[address] Catarino Dominguez MD -[facility] Work Phone: Start: 11-09-2024 End: 11-27-[address] Lenin Bhatt MD Work Phone: [facility] Work Phone: Start: 10-26-2024 ambulatory Lenin Rodrigezi ty:[facility] Start: 10-26-2024 Non-patient / Non-visit Dr. Luke Dominguez MD -[facility] Work Phone: Start: 10-26-2024 End: 10-27-[address] Catarino Dominguez MD -[facility] Work Phone: Start: 10-26-2024 End: 10-27-2024 ambulatory Lenin Bhatt Facility:[facility] Start: 10-22-2024 End: 10-24-2024 Refill Lenin Bhatt MD Work Phone: [facility] [place] Comment on above: Refill Request Start: 10-20-2024 End: 10-20-2024 Telephone encounter Lenin Bhatt MD Work Phone: [facility] [place] Comment on above: Concerns of Neglect Start: 09-28-2024 End: 09-29-2024 Refill Deepti Auguste MD Work Phone: Geriatrics Comment on above: Refill Request Start: 09-27-2024 Non-patient / Non-visit Biasanchez Longoell BOND TRADER-C -[facility] Start: 09-27-2024 End: 09-29-2024 ambulatory Biaissac Wade BOND TRADER Facility:[facility] Start: 09-27-2024 End: 09-29-2024 Discharged Recurring Bia Wade B[facility] TRAD[facility] Work Phone: Start: 09-06-2024 ambulatory Biaissac mandel BOND TRADER [facility] Start: 09-06-2024 Non-patient / Non-visit Bia Jack LongoMauro BOND TRADER-C -[facility] Start: 09-01-2024 End: 09-01-2024 Telephone encounter Lenin Bhatt MD Work Phone: [facility] [place] Comment on above: Patient Update; Tika ent Question Start: 08-29-2024 End: 08-29-2024 Subsequent hospital visit by physician Xr [facility] Work Phone: Radiology Comment on above: Acute cough [R05.1] Start: 08-29-2024 End: 08-29-2024 ambulatory LENIN BHATT Facility:[facility] Start: 08-29-2024 End: 08-29-2024 Patient encounter procedure Moira Hearn AMBULATORY ANALYST.[employer] Work Phone: [facility] [place] Comment on above: Acute cough (Primary Dx); Shortness of breath Start: 08-29-2024 End: 08-29-2024 Telephone encounter Lenin Bhatt MD Work Phone: [facility] [place] Comment on above: Home Health Nurse Up date Start: 08-16-2024 Non-patient / Non-visit Biaissac Longoell BOND TRADER-C -[facility] Start: 08-16-2024 End: 08-29-2024 ambulatory Bia Wade BOND TRADER Facility:[facility] Start: 08-16-2024 End: 08-29-2024 Discharged Recurring Bia Wade BOND TRADER-C [facility] Work Phone: Start: 08-14-2024 End: 08-14-2024 Telephone encounter Lenin Bhatt MD Work Phone: [facility] [place] Comment on above: Orders Start: 08-02-2024 ambulatory Bia mandel BOND TRADER [facility] Start: 08-02-2024 Non-patient / Non-visit Bia Wade BOND TRADER-C -[facility] Start: 07-30-2024 End: 07-31-2024 Refill Lenin Bhatt MD Work Phone: [facility] [place] Comment on above: Refill Request Start: 07-15-2024 End: 07-17-2024 Refill Lenin Bhatt MD Work Phone: [facility] [place] Comment on above: Refill Request Start: 07-14-2024 End: 07-14-2024 Telephone encounter Lenin Bhatt MD Work Phone: [facility] [place] Comment on above: Consult ([facility]) Start: 07-10-2024 End: 07-10-2024 Telephone encounter Lenin Bhatt MD Work Phone: [facility] [place] Comment on above: Physical Therapy Marielle n of Care Start: 07-07-2024 End: 07-07-2024 ambulatory LENIN BHATT Facility:[facility] Start: 07-07-2024 End: 07-07-2024 Telephone encounter Lenin Bhatt MD Work Phone: [facility] [place] Comment on above: Patient Update Start: 07-07-2024 End: 07-07-2024 Office outpatient visit 25 minutes Lenin Bhatt MD Work Phone: [facility] [place] Comment on above: Decubitus ulcer of s acral region, stage 3 (HCC) (Primary Dx); Heel ulceration, left, with unspecified severity (HCC); Acute kidney injury (HCC); 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; Debility; 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); Decubitus ulcer of left buttock, stage 2 (HCC) Start: 07-07-2024 End: 07-07-2024 ambulatory LENIN BHATT Facility:[facility] Start: 07-05-2024 End: 07-05-2024 Telephone encounter Lenin Bhatt MD Work Phone: [facility] [place] Comment on above: Home Health update Start: 07-04-2024 End: 07-13-2024 Telephone encounter Lenin Bhatt MD Work Phone: [facility] [place] Comment on above: Orders Start: 07-03-2024 End: 07-03-2024 Telephone encounter Lenin Bhatt MD Work Phone: [facility] [place] Comment on above: [facility]- agree to [facility] for orders Start: 06-21-2024 End: 07-03-2024 Evaluation and management of inpatient Kevon Chi Angelito Facility:[facility] Start: 06-19-2024 End: 06-19-2024 Telephone encounter Lenin Bhatt MD Work Phone: [facility] [place] Comment on above: Patient Update Start: 06-17-2024 ambulatory Eric Bay Fac ility:[facility] Start: 06-17-2024 End: 06-21-2024 Evaluation and management of inpatient Eric Bay Facility:[facility] Start: 06-12-2024 End: 06-13-2024 Refill Deepti Auguste MD Work Phone: Geriatrics Comment on above: Med Change Request Start: 06-12-2024 End: 06-12-2024 Telephone encounter Lenin Bhatt MD Work Phone: [facility] [place] Comment on above: Patient Update Start: 06-12-2024 End: 06-12-2024 Emergency department patient visit Len Kelley Facility:[facility] Start: 06-06-2024 End: 06-08-2024 Refill Lenin Bhatt MD Work Phone: [facility] [place] Comment on above: Refill Request Start: 05-30-2024 End: 05-31-2024 Refill Lenin Bhatt MD Work Phone: [facility] [place] Comment on above: Refill Request Start: 05-24-2024 End: 05-24-2024 Office outpatient visit 40 minutes Deepti Auguste MD Work Phone: [facility]iatric[facility] Comment on above: Aphasia, late effect of cerebrovascular disease (Primary Dx); Urge incontinence of urine; 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; Ambulatory dysfunction; Impairment of balance; Memory impairment Start: 05-24-2024 End: 05-24-2024 Refill Deepti Auguste MD Work Phone: [facility] Comment on above: Med Change Request Start: 05-24-2024 End: 06-22-2024 Telephone encounter Lenin Bhatt MD Work Phone: Geriatrics Comment on above: Opened In Error Physical Therapy Start: 05-24-2024 End: 05-24-2024 ambulatory LENIN BHATT Facility:[facility] Start: 04-18-2024 End: 04-19-2024 Refill Lenin Bhatt MD Work Phone: [facility] [place] Comment on above: Refill Request Start: 04-13-2024 Telephone encounter Zachariah Gonzales MD Work Phone: Urology Comment on above: Results Start: 04-10-2024 End: 04-10-2024 ambulatory LENIN BHATT Facility:[facility] Start: 04-10-2024 End: 04-10-2024 Subsequent hospital visit by physician [facility] Work Phone: Radiology Comment on above: Renal mass [N28.89] Start: 03-23-2024 Refill Lenin dunbar MD Work Phone: [facility] [place] Comment on above: Refill Request Start: 03-20-2024 Orders Only Lenin dunbar MD Work Phone: [facility] [place] Comment on above: Kidney insufficiency (Primary Dx); Anemia, unspecified type; Seizure (HCC) Results Start: 03-14-2024 End: 03-14-2024 ambulatory LENIN BHATT Facility:[facility] Start: 03-14-2024 End: 03-14-2024 Patient encounter status Moira Hearn APRN.[employer] MAKER [employer] Work Phone: [facility] Start: 03-14-2024 End: 03-14-2024 ambulatory LENIN BHATT Facility:[facility] Start: 03-14-2024 Encounter for examin ation of eyes and vision without abnormal findings MOIRA HEARN [facility] Start: 03-14-2024 End: 03-14-2024 Patient encounter procedure Moira Hearn APRN.[employer] Work Phone: Internal Medicine [place] Comment on above: Medicare annual well ness [...] breast cancer Start: 03-13-2024 Refill Moira brink APRN.[employer] Work Phone: [facility] [place] Comment on above: Refill Request Start: 01-09-2024 Refill Lenin dunbar MD Work Phone: [facility] [place] Comment on above: Refill Request Start: 12-09-2023 End: 12-09-2023 ambulatory LENIN BHATT Facility:[facility] Start: 12-09-2023 End: 12-09-2023 Patient encounter procedure Lenin Bhatt MD Work Phone: [facility] [place] Comment on above: Pain in both lower e xtremities (Primary Dx); Acute on chronic respiratory failure with hypoxemia (HCC); Hyperlipidemia, unspecified hyperlipidemia type; 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); Chronic systolic (congestive) heart failure (HCC); Acquired hypothyroidism; Chronic bronchitis, unspecified chronic bronchitis type (HCC); Arteriosclerosis of coronary artery Start: 11-29-2023 ambulatory Zachariah wright Jr., MD Work Phone: [facility] Start: 11-29-2023 Patient encounter procedure Indu Gonzales MD Work Phone: Urology Comment on above: Next Appointment Start: 07-01-2023 Non-patient / Non-visit Dr. Sophia Bhatt Work Phone: [facility] Work Phone: Start: 07-01-2023 End: 07-29-[address] Lenin Bhatt Work Phone: [facility] Work Phone: Start: 07-01-2023 End: 07-29-[address] Lenin Bhatt Work Phone: [facility] Work Phone: Start: 06-10-2023 Non-patient / Non-visit Dr. Sophia Bhatt Work Phone: [facility] Work Phone: Start: 06-10-2023 End: 06-29-[address] Lenin Bhatt Work Phone: [facility] Work Phone: Start: 06-10-2023 End: 06-29-[address] Lenin Bhatt Work Phone: [facility] Work Phone: Start: 06-10-2023 End: 06-10-2023 Patient encounter procedure Moira Brandon APRN.CNP Work Phone: Internal Medicine [place] Comment on above: Chronic bronchitis, unspecified chronic bronchitis type (HCC) (Primary Dx); Current moderate episode of major depressive disorder, unspecified whether recurrent (HCC); Acute on chronic respiratory failure with hypoxemia (HCC); Bilateral impacted cerumen Start: 05-27-2023 Non-patient / Non-visit Dr. Sophia Bhatt Work Phone: [facility] Work Phone: Start: 05-27-2023 End: 05-29-[address] Lenin Bhatt Work Phone: [facility] Work Phone: Start: 05-27-2023 End: 05-29-[address] Lenin [facility]hatt [facility] Work Phone: Start: 05-20-2023 Non-patient / Non-visit Dr. Sophia Bhatt Work Phone: [facility] Work Phone: Start: 05-19-2023 ambulatory Lenin dunbar MD Work Phone: [facility] [place] Comment on above: Sertraline Start: 05-19-2023 Telephone encounter Lenin casillas MD Work Phone: Internal Medicine [place] Comment on above: Orders Start: 05-06-2023 Non-patient / Non-visit Dr. Sophia Bhatt Work Phone: [facility] Work Phone: Start: 04-22-2023 Non-patient / Non-visit Dr. Sophia Bhatt Work Phone: [facility] Work Phone: Start: 04-22-2023 End: 04-29-[address] Lenin Bhatt Work Phone: [facility] Work Phone: Start: 04-22-2023 End: 04-29-[address] Lenin Bhatt Work Phone: [facility] Work Phone: Start: 04-19-2023 End: 04-19-2023 Subsequent hospital visit by physician [facility] Work Phone: Radiology Comment on above: Renal mass [N28.89] Start: 04-15-2023 End: 04-15-2023 Patient encounter procedure Wilbur Youssef MD Work Phone: Vascular Surgery Comment on above: Peripheral arterial disease (HCC) (Primary Dx) Start: 04-08-2023 ambulatory Lenin dunbar MD Work Phone: [facility] Start: 04-08-2023 Letter encounter Lenin figueroa MD Work Phone: [facility] [place] Comment on above: Letter Start: 04-01-2023 Non-patient / Non-visit Dr. Sophia Bhatt Work Phone: [facility] Work Phone: Start: 03-25-2023 Non-patient / Non-visit Dr. oSphia Bhatt Work Phone: [facility] Work Phone: Start: 03-25-2023 End: 03-29-[address] Lenin Bhatt Work Phone: [facility] Work Phone: Start: 03-25-2023 End: 03-29-[address] Lenin Bhatt Work Phone: [facility] Work Phone: Start: 03-23-2023 Documentation procedure Mammog lucas Coordinator [facility] Start: 03-23-2023 Letter encounter Mammography Coordinator [facility] Department Start: 03-22-2023 End: 03-22-2023 Subsequent hospital visit by physician Screen Mammo [facility] Comment on above: Encounter for screen ing mammogram for breast cancer [Z12.31] Start: 03-12-2023 End: 03-12-2023 Patient encounter procedure Pavan Mcclure Work Phone: Podiatry Comment on above: Callus of foot (Prim wilmer Dx); Dermatophytosis of nail; Pain in toes of both feet; PVD (peripheral vascular disease) (HCC) Start: 03-12-2023 End: 03-12-2023 Subsequent hospital visit by physician Xr [facility] [place] Huang Work Phone: Radiology Comment on above: Chronic systolic (co ngestive) heart failure ([facility]) [I50.22] Start: 03-09-2023 ambulatory Lenin dunbar MD Work Phone: [facility] [place] Start: 03-09-2023 Patient encounter procedure Vi elvia Bhatt MD Work Phone: Internal Medicine [place] Comment on above: [facility] Start: 03-04-2023 End: 03-04-2023 Patient encounter procedure Lenin Bhatt MD Work Phone: [facility] [place] Comment on above: Medicare annual well ness visit, subsequent (Primary Dx); Dermatophytosis of nail; Pain in toes of both feet; 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; Chronic systolic (congestive) heart failure (HCC); Ischemic cardiomyopathy; Essential hypertension; Kidney insufficiency; Sacral decubitus ulcer, stage II (HCC); Impaired fasting glucose Start: 02-25-2023 Refill Moira Brandon APRN, .CNP Work Phone: Internal Medicine [place] Comment on above: Refill Request Labwork and Concern Start: 02-13-2023 ambulatory Lenin dunbar MD Work Phone: [facility] [place] Comment on above: Labwork Start: 10-27-2022 Refill Lenin dunbar MD Work Phone: [facility] [place] Comment on above: Refill Request Start: 09-28-2022 End: 09-28-2022 ambulatory LENIN BHATT [facility] Start: 09-28-2022 End: 09-28-2022 Office outpatient visit 25 minutes Aramis Cheng MD Work Phone: [facility] Comment on above: Localization-related epilepsy (HCC) (Primary Dx); History of stroke; Primary hypertension; Pure hypercholesterolemia Start: 08-04-2022 Refill Kristine Downing RN [facility] Comment on above: Localization-related epilepsy (HCC) Start: 08-03-2022 Refill Lenin dunbar MD Work Phone: [facility] [place] Comment on above: Refill Request Start: 08-01-2022 Refill Lenin dunbar MD Work Phone: [facility] [place] Comment on above: Med Change Request Start: 07-30-2022 Refill Lenin dunbar MD Work Phone: Internal [facility] [place] Comment on above: Refill Request Start: 07-21-2022 Refill Jonathan Aguila MD Work Phone: [facility] [place] Comment on above: Refill Request Start: 07-08-2022 Telephone encounter Lenin casillas MD Work Phone: [facility] [place] Comment on above: Medication Request Start: 07-01-2022 Refill Lenin dunbar MD Work Phone: Internal [facility] [place] Comment on above: Refill Request Start: 06-10-2022 End: 06-10-2022 Patient encounter procedure Jonathan Aguila MD Work Phone: Cardiology Comment on above: Cardiomyopathy, hany schemic (HCC) (Primary Dx); Chronic combined systolic and diastolic heart failure (HCC) Start: 06-04-2022 Telephone encounter Lenin casillas MD Work Phone: [facility] [place] Comment on above: Medication Question Start: 06-03-2022 Telephone encounter Lenin casillas MD Work Phone: Family Medicine [place] Comment on above: Letter (For Communit y Action) Start: 06-02-2022 Refill Lenin dunbar MD Work Phone: Family [facility] Comment on above: Refill Request Start: 05-20-2022 ambulatory Lenin dunbar MD Work Phone: Internal Medicine [place] Start: 05-18-2022 Refill Eladio Moy Work Phone: [facility] [place] Comment on above: Refill Request Start: 04-17-2022 Refill Jonathan Aguila MD Work Phone: [facility] [place] Comment on above: Refill Request Start: 04-17-2022 Telephone encounter Jonathan Evans i, MD Work Phone: [facility] [place] Comment on above: Appointment Start: 04-06-2022 Refill Blossom Seal [facility] Comment on above: Refill Request Start: 04-03-2022 Telephone encounter Zachariah Gonzales MD Work Phone: [facility] Comment on above: Results Start: 03-31-2022 End: 03-31-2022 Patient encounter procedure Zachariah Gonzales MD Work Phone: Urology Comment on above: Renal mass (Primary Dx); Dysuria Start: 01-12-2022 Telephone encounter Lenin casillas MD Work Phone: [facility] [place] Comment on above: Letter Start: 01-06-2022 Refill Lenin dunbar MD Work Phone: [facility] [place] Comment on above: Refill Request Start: 12-25-2021 Telephone encounter Lenin casillas MD Work Phone: [facility] [place] Comment on above: Patient Update; Orde rs Start: 12-17-2021 Telephone encounter Moira Brandon APRN.CNP Work Phone: Internal Medicine [...] [place] Comment on above: Refill Request Start: 11-21-2021 Refill John santiago MD Work Phone: [facility] Cardiology [place] Comment on above: Refill Request Start: 11-21-2021 Telephone encounter Jonathan Evans i, MD Work Phone: [facility] Cardiology [place] Comment on above: Appointment (Called Pt to schedule overdue 6 mth f/u appt; No answer, left vm to callback to schedule.) Start: 08-14-2021 End: 08-14-2021 Office outpatient visit 25 minutes Aramis Cheng MD Work Phone: [facility] Comment on above: Localization-related epilepsy (HCC) (Primary Dx); History of stroke; LBBB (left bundle branch block); Primary hypertension Start: 10-05-2020 End: 10-05-2020 Orders Only Tsering Kuo Work Phone: [facility] Start: 10-05-2019 End: 10-05-2019 Office outpatient visit 25 minutes Aramis Cheng Work Phone: [facility] Comment on above: Localization-related epilepsy (HCC) (Primary Dx); Essential hypertension; Pure hypercholesterolemia; Asymptomatic PVD (peripheral vascular disease) (HCC) Start: 12-20-2018 End: 12-20-2018 Evaluation and management of inpatient MAURICIO Barbosa Facility:[facility] Start: 08-11-2018 End: 08-11-2018 Office outpatient visit 25 minutes Aramis Cheng Work Phone: [facility] Comment on above: Localization-related epilepsy (HCC) (Primary Dx); History of stroke; LBBB (left bundle branch block); Essential hypertension Start: 08-26-2017 Office/outpatient vi sit, est, level 4 Aramis Cheng Work Phone: [facility] Procedures Date Procedure Procedure Detail Performing Clinician Start: 11-23-2024 X-ray of sacrum and coccyx, two or more views Dr. Lenin Bhatt MD Work Phone: Start: 11-23-[address] Lenin Bhatt MD Work Phone: Start: 08-29-2024 Radiologic exam ches t 2 views Moira Hearn APRN.[employer] Work Phone: Start: 04-10-2024 Lipid 1996 panel - S benito or Plasma Us 2 Work Phone: Start: 03-14-2024 Lipid 1996 panel - S benito or Plasma Lenin Bhatt MD Work Phone: Start: 07-01-[address] Lenin Bhatt Work Phone: Start: 07-01-2023 Investigation of tra nsfusion reaction Dr. Lenin Bhatt Work Phone: Start: 07-01-2023 Microbial culture, routine Dr. Lenin Bhatt Work Phone: Start: 04-19-2023 Us retroperitoneal r eal time w/image complete Zachariah Gonzales MD Work Phone: Start: 03-25-[address] Lenin Bhatt Work Phone: Start: 03-25-2023 Investigation of tra nsfusion reaction Dr. Lenin Bhatt Work Phone: Start: 03-25-2023 Microbial culture, routine Dr. Lenin Bhatt Work Phone: Start: 03-22-2023 End: 03-22-2023 Mammography [...] Start: 10-29-2029 Tetanus vaccination Tetanus: Every 10yrs [facility] Start: 10-29-2029 Urine microalbumin profile [facility] Start: 04-10-2029 Lipid panel Lipid Screening [facility] Start: 03-14-2029 Lipid panel Lipid Screening [facility] Start: 11-14-2028 Tetanus vaccination [facility] Start: 02-28-2028 Lipid 1996 panel - Serum or Plasma Lipid Screening [facility] Start: 02-28-2028 Lipid panel Lipid Screening [facility] Start: 02-28-2028 LIPID SCREEN LIPID SCREEN [facility] Start: 11-21-2027 Diabetes Screening Diabetes Screening [facility] Start: 07-07-2027 Diabetes Screening Diabetes Screening [facility] Start: 04-10-2027 Diabetes Screening Diabetes Screening [facility] Start: 03-14-2027 Diabetes Screening Diabetes Screening [facility] Start: 12-15-2026 LIPID SCREEN LIPID SCREEN [facility] Start: 03-12-2026 DIABETES SCREEN DIABETES SCREEN [facility] Start: 03-12-2026 Diabetes Screening Diabetes Screening [facility] Start: 02-27-2026 DIABETES SCREEN DIABETES SCREEN [facility] Start: 11-20-2025 Annual PCP Team Chronic Disease Visit Annual PCP Team Chronic Disease Visit [facility] Start: 08-29-2025 Annual PCP Team Chronic Disease Visit Annual PCP Team Chronic Disease Visit [facility] Start: 08-29-2025 BP Controlled (<130/80) BP Controlled (<130/80) [facility] Start: 07-19-2025 End: 07-19-2025 Patient encounter procedure 07/19/2025 11:20 AM EST Office Visit [facility] Cardiology [place] [address] [place] [address] John Chadwick MD [address] [id number] Overdue annual follow up. PET[place] patient's son prefers doctor in [place] [facility] [place] Comment on above: Overdue annual follow up. [place] patient's son prefers doctor in [place] Start: 07-07-2025 Annual PCP Team Chronic Disease Visit Annual PCP Team Chronic Disease Visit [facility] Start: 04-10-2025 Hepatitis B surface antibody level LDL Cholesterol [facility] Start: 04-03-2025 LIPID SCREEN LIPID SCREEN [facility] Start: 03-22-2025 End: 03-22-2025 Patient encounter procedure 03/22/2025 3:20 PM EDT Office Visit [facility] [place] [address] [place], [place] [id number] Lenin Bhatt MD [address] [place] [address] 3 mo follow up [facility] [place] Comment on above: 3 mo follow up Start: 03-14-2025 Annual PCP Team Chronic Disease Visit Annual PCP Team Chronic Disease Visit [facility] Start: 03-14-2025 BP Controlled (<130/80) BP Controlled (<130/80) [facility] Start: 03-14-2025 Hepatitis B surface antibody level LDL Cholesterol [facility] Start: 03-14-2025 RSV Vaccine (1 - 1-dose 60+ series) RSV Vaccine (1 - 1-dose 60+ series) [facility] Comment on above: Postponed from 2010 (Declined at t his time) Start: 03-14-2025 RSV Vaccine (1 - Risk 60-74 years 1-dose series) RSV Vaccine (1 - Risk 60-74 years 1-dose series) [facility] Comment on above: Postponed from 2010 (Declined at t his time) Start: 03-14-2025 Shingrix Vaccine (1 of 2) Shingrix Vaccine (1 of 2) [facility] Comment on above: Postponed from 2000 (Declined at t his time) Start: 12-15-2024 DIABETES SCREEN DIABETES SCREEN [facility] Start: 12-08-2024 Annual PCP Team Chronic Disease Visit Annual PCP Team Chronic Disease Visit [facility] Start: 12-08-2024 BP Controlled (<130/80) BP Controlled (<130/80) [facility] Start: 11-30-2024 End: 11-30-2024 Patient encounter procedure 11/30/2024 3:30 PM EDT Office Visit Geriatrics [address] [place] [id number] Deepti Auguste MD [address] [place] [id number] 3 month follow up, 05/24/2024 Sintia Eval done,05/24 mmse completed, [facility] Comment on above: 3 month follow up, 05/24/2024 Sintia Eval d one,05/24 mmse completed, s Start: 11-20-2024 End: 02-19-2025 C reactive protein [Mass/volume] in Serum or Plasma [facility] Comment on above: Expected: 11/20/2024, Expires: Start: 11-20-2024 End: 02-19-2025 CBC W Auto Differential panel - Blood [facility] Comment on above: Expected: 11/20/2024, Expires: Start: 11-20-2024 End: 02-19-2025 Comprehensive metabolic 2000 panel - Serum or Plasma [facility] Work Phone: Comment on above: Expected: 11/20/2024, Expires: Start: 11-20-2024 End: 02-19-2025 Erythrocyte sedimentation rate [facility] Comment on above: Expected: 11/20/2024, Expires: Start: 11-20-2024 End: 02-19-2025 Hemoglobin A1c in Blood [facility] Comment on above: Expected: 11/20/2024, Expires: Start: 11-20-2024 End: 02-19-2025 Prealbumin [Mass/volume] in Serum or Plasma PREALBUMIN Lab Routine Decubitus ulcer of sacral region, stage 3 (HCC) Expected: 11/20/2024, Expires: 02/19/2025 [facility] Comment on above: Expected: 11/20/2024, Expires: Start: 11-02-2024 End: 11-02-2024 Patient encounter procedure Geriatrics Comment on above: 3 month follow up, 05/24/2024 marifer Guerra 3 mo follow up Start: 10-09-2024 End: 10-09-2024 Patient encounter procedure 10/09/2024 2:00 PM EST Office Visit [facility] [place] [address] [place], [place] [phone] Lenin Bhatt MD [address] [place] [address] 3 mo follow up [facility] [place] Comment on above: 3 mo follow up Start: 10-05-2024 End: 10-05-2024 Patient encounter procedure Geriatrics Comment on above: 3 month follow up 3 month follow up, marifer Bains Start: 09-29-2024 BP Controlled (<130/80) BP Controlled (<130/80) [facility] Start: 08-30-2024 Advance Directive Discussion Advance Directive Discussion [facility] Start: 08-16-2024 End: 08-16-2024 Patient encounter procedure 08/16/2024 2:00 PM EST Office Visit Geriatrics [address] [place], [place] [id number] Deepti Auguste MD [address] [place] [address] 3 month follow up Geriatrics Comment on above: 3 month follow up Start: 08-01-2024 End: 08-01-2024 Patient encounter procedure 08/01/2024 1:00 PM EST Office Visit [facility] [address] [place] [address] Elis Leonard, OD [address] [place] [address] Encounter for routine eye and vision examination [Z01.00]/ OK PER DR LEONARD Ophthalmology Comment on above: Encounter for routine eye and vision exa mination [Z01.00]/ OK PER DR LEONARD Start: 07-07-2024 End: 10-06-2024 Basic metabolic 2000 panel - Serum or Plasma [facility] Work Phone: Comment on above: Expected: 07/07/2024, Expires: Start: 07-07-2024 End: 10-06-2024 levETIRAcetam [Mass/volume] in Serum or Plasma [facility] Comment on above: Expected: 07/07/2024, Expires: Start: 07-07-2024 End: 07-07-2024 Patient encounter procedure 07/07/2024 2:00 PM EST Office Visit [facility] [place] [address] [place] [address] Lenin Bhatt MD [address] [place] [address] Discharged from [facility] 07/02 or 07/03 - Fall, UTI, declined kidney health [facility] [place] Comment on above: Discharged from [facility] 07/02 or 07/03 - Fall, UTI, declined kidney health Start: 06-12-2024 End: 06-12-2024 Patient encounter procedure 06/12/2024 1:20 PM EDT Office Visit [facility] [place] [address] [place] [address] Moira Hearn, AMBULATORY ANALYST.[employer] [address] [place], [place] [id number] 6 month follow-up [facility] [place] Comment on above: 6 month follow-up Start: 06-10-2024 Annual PCP Team Chronic Disease Visit Annual PCP Team Chronic Disease Visit [facility] Start: 06-10-2024 BP Controlled (<130/80) BP Controlled (<130/80) [facility] Start: 06-09-2024 End: 06-09-2024 Patient encounter procedure [facility] [place] Comment on above: 6 month follow-up Start: 05-24-2024 End: 05-24-2024 Patient encounter procedure [facility] [place] Comment on above: nurse Sintia consult Start: 05-09-2024 End: 05-09-2024 Patient encounter procedure 05/09/2024 2:45 PM EDT Office Visit [facility] [address] [place] [address] Elis Leonard, OD [address] [place] [address] Encounter for routine eye and vision examination [Z01.00] Ophthalmology Comment on above: Encounter for routine eye and vision exa mination [Z01.00] Start: 04-30-2024 Influenza vaccination [facility] Start: 04-19-2024 End: 04-19-2024 Patient encounter procedure [facility] [place] Comment on above: Aphasia, late effect of cerebrovascular disease [I69.920]; Late effects of CVA (cerebrovascular accident) [I69.90]; Abnormal mini-mental status exam [F99] Start: 04-15-2024 BP CONTROLLED (<130/80) BP CONTROLLED (<130/80) [facility] Start: 04-10-2024 End: 04-10-2024 Patient encounter procedure 04/10/2024 11:30 AM EDT Appointment Radiology [address] [place], [place] [id number] Renal mass [N28.89] Radiology Comment on above: Renal mass [N28.89] Start: 03-31-2024 US KIDNEY/BLADDER US KIDNEY/BLADDER Radiology Routine Renal mass Expected: 03/31/2024 [facility] Work Phone: Comment on above: Expected: 03/31/2024 Start: 03-27-2024 End: 06-26-2024 Basic metabolic 2000 panel - Serum or Plasma BASIC METABOLIC PANEL Lab Routine Kidney insufficiency Expected: 03/27/2024, Expires: 06/26/2024 [facility] Comment on above: Expected: 03/27/2024, Expires: Start: 03-27-2024 End: 06-26-2024 CBC panel - Blood by Automated count COMPLETE BLOOD COUNT Lab Routine Anemia, unspecified type Expected: 03/27/2024, Expires: 06/26/2024 [facility] Work Phone: Comment on above: Expected: 03/27/2024, Expires: Start: 03-27-2024 End: 06-26-2024 Cobalamin (Vitamin B12) [Mass/volume] in Serum or Plasma VITAMIN B12 Lab Routine Anemia, unspecified type Expected: 03/27/2024, Expires: 06/26/2024 [facility] Comment on above: Expected: 03/27/2024, Expires: Start: 03-27-2024 End: 06-26-2024 Ferritin [Mass/volume] in Serum or Plasma FERRITIN Lab Routine Anemia, unspecified type Expected: 03/27/2024, Expires: 06/26/2024 [facility] Comment on above: Expected: 03/27/2024, Expires: Start: 03-27-2024 End: 06-26-2024 levETIRAcetam [Mass/volume] in Serum or Plasma LEVETIRACETAM Lab Routine Seizure (HCC) Expected: 03/27/2024, Expires: 06/26/2024 [facility] Comment on above: Expected: 03/27/2024, Expires: Start: 03-22-2024 Mammography [facility] Start: 03-22-2024 Screening for malignant neoplasm of breast Mammogram Screening [facility] Start: 03-14-2024 End: 03-14-2024 Patient encounter procedure 03/14/2024 2:20 PM EDT Office Visit [facility] [address] [place] [address] Moira Hearn, AMBULATORY ANALYST.ONE PIECE EXPANSION MAKER HAND [address] [place] [address] Annual Medicare w/3 month follow-up [facility] Comment on above: Annual Medicare w/3 month follow-up Start: 03-14-2024 End: 06-13-2024 LIPID PANEL, NONFASTING [facility] Comment on above: Expected: 03/14/2024, Expires: Start: 03-09-2024 End: 06-08-2024 CBC panel - Blood by Automated count COMPLETE BLOOD COUNT Lab Routine Acute on chronic respiratory failure with hypoxemia (HCC) Expected: 03/09/2024, Expires: 06/08/2024 [facility] Work Phone: Comment on above: Expected: 03/09/2024, Expires: Start: 03-09-2024 End: 06-08-2024 Comprehensive metabolic 2000 panel - Serum or Plasma COMPREHENSIVE METABOLIC PANEL Lab Routine Hyperlipidemia, unspecified hyperlipidemia type Expected: 03/09/2024, Expires: 06/08/2024 [facility] Work Phone: Comment on above: Expected: 03/09/2024, Expires: Start: 03-09-2024 End: 06-08-2024 levETIRAcetam [Mass/volume] in Serum or Plasma LEVETIRACETAM Lab Routine 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) Expected: 03/09/2024, Expires: 06/08/2024 [facility] Work Phone: Comment on above: Expected: 03/09/2024, Expires: Start: 03-09-2024 End: 06-08-2024 Lipid 1996 panel - Serum or Plasma LIPID PANEL BASIC Lab Routine Hyperlipidemia, unspecified hyperlipidemia type Expected: 03/09/2024, Expires: 06/08/2024 [facility] Work Phone: Comment on above: Expected: 03/09/2024, Expires: Start: 03-09-2024 End: 06-08-2024 Thyrotropin [Units/volume] in Serum or Plasma THYROID STIMULATING HORMONE Lab Routine Acquired hypothyroidism Expected: 03/09/2024, Expires: 06/08/2024 [facility] Work Phone: Comment on above: Expected: 03/09/2024, Expires: 4 Start: 03-04-2024 ANNUAL PCP TEAM CHRONIC DISEASE VISIT ANNUAL PCP TEAM CHRONIC DISEASE VISIT [facility] Start: 03-04-2024 BP CONTROLLED (<130/80) BP CONTROLLED (<130/80) [facility] Start: 02-28-2024 Hepatitis B surface antibody level LDL CHOLESTEROL [facility] Start: 02-27-2024 Influenza vaccination Influenza Vaccine (#1) [facility] Comment on above: Postponed from 04/30/2023 (Declined at t his time) Start: 01-22-2024 DIABETES SCREEN DIABETES SCREEN [facility] Start: 08-30-2023 Advance Directive Discussion Advance Directive Discussion [facility] Start: 07-16-2023 ANNUAL PCP TEAM CHRONIC DISEASE VISIT ANNUAL PCP TEAM CHRONIC DISEASE VISIT [facility] Start: 06-10-2023 BP CONTROLLED (<130/80) BP CONTROLLED (<130/80) [facility] Start: 04-30-2023 Influenza vaccination [facility] Start: 03-18-2023 End: 05-18-2023 Basic metabolic 2000 panel - Serum or Plasma BASIC METABOLIC PNL Lab Routine Kidney insufficiency Expected: 03/18/2023, Expires: 05/18/2023 [facility] Work Phone: Comment on above: Expected: 03/18/2023, Expires: 3 Start: 03-18-2023 End: 05-18-2023 Natriuretic peptide.B prohormone N-Terminal [Mass/volume] in Serum or Plasma NT PRO BNP Lab Routine Chronic systolic (congestive) heart failure (HCC) Expected: 03/18/2023, Expires: 05/18/2023 [facility] Work Phone: Comment on above: Expected: 03/18/2023, Expires: 3 Start: 03-18-2023 End: 05-18-2023 Urinalysis complete panel - Urine URINALYSIS, WITH MICROSCOPIC Lab Routine Kidney insufficiency Expected: 03/18/2023, Expires: 05/18/2023 [facility] Work Phone: Comment on above: Expected: 03/18/2023, Expires: 3 Start: 02-26-2023 Influenza vaccination INFLUENZA (#1) [facility] Comment on above: Postponed from 04/30/2022 (Declined at t his time) Start: 02-15-2023 End: 04-17-2023 CBC panel - Blood by Automated count CBC Lab Routine Essential hypertension Expected: 02/15/2023, Expires: 04/17/2023 [facility] Work Phone: Comment on above: Expected: 02/15/2023, Expires: 3 Start: 02-15-2023 End: 04-17-2023 Comprehensive metabolic 2000 panel - Serum or Plasma COMP METABOLIC PANEL Lab Routine Hyperlipidemia, unspecified hyperlipidemia type Essential hypertension Expected: 02/15/2023, Expires: 04/17/2023 [facility] Work Phone: Comment on above: Expected: 02/15/2023, Expires: 3 Start: 02-15-2023 End: 04-17-2023 Hemoglobin A1c in Blood HGB A1C Lab Routine Impaired fasting glucose Expected: 02/15/2023, Expires: 04/17/2023 [facility] Work Phone: Comment on above: Expected: 02/15/2023, Expires: 3 Start: 02-15-2023 End: 04-17-2023 levETIRAcetam [Mass/volume] in Serum or Plasma LEVETIRACETAM Lab Routine 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) Expected: 02/15/2023, Expires: 04/17/2023 [facility] Work Phone: Comment on above: Expected: 02/15/2023, Expires: 3 Start: 02-15-2023 End: 04-17-2023 Lipid 1996 panel - Serum or Plasma LIPID PANEL BASIC Lab Routine Hyperlipidemia, unspecified hyperlipidemia type Expected: 02/15/2023, Expires: 04/17/2023 [facility] Work Phone: Comment on above: Expected: 02/15/2023, Expires: 3 Start: 02-15-2023 End: 04-17-2023 Thyrotropin [Units/volume] in Serum or Plasma TSH BLD Lab Routine Acquired hypothyroidism Expected: 02/15/2023, Expires: 04/17/2023 [facility] Work Phone: Comment on above: Expected: 02/15/2023, Expires: 3 Start: 12-14-2022 Colonoscopy COLONOSCOPY [facility] Start: 12-14-2022 COLORECTAL CANCER SCREENING COLORECTAL CANCER SCREENING [facility] Start: 12-14-[address] COLONOGRAPHY [facility] Start: 12-14-2022 Screening for malignant neoplasm of colon [facility] Start: 12-12-2022 ANNUAL PCP TEAM CHRONIC DISEASE VISIT ANNUAL PCP TEAM CHRONIC DISEASE VISIT [facility] Start: 12-12-2022 BP CONTROLLED (<130/80) BP CONTROLLED (<130/80) [facility] Start: 12-12-2022 SHINGRIX VACCINE (1 of 2) SHINGRIX VACCINE (1 of 2) [facility] Comment on above: Postponed from 2000 (Insurance Cov erage) Start: 08-30-2022 ADVANCE DIRECTIVE DISCUSSION ADVANCE DIRECTIVE DISCUSSION [facility] Start: 08-14-2022 Depression screening using PHQ-9 (Patient Health Questionnaire 9) score Depression Screening (PHQ-2/9) [facility] Start: 08-14-2022 End: 08-14-2022 Patient encounter procedure 08/14/2022 Office Visit Neurology Aramis Cheng MD [address] [place] [address] [facility] Start: 07-15-2022 ANNUAL PCP TEAM CHRONIC DISEASE VISIT ANNUAL PCP TEAM CHRONIC DISEASE VISIT [facility] Start: 04-30-2022 Influenza vaccination [facility] Start: 04-04-2022 Mammography MAMMOGRAM [facility] Start: 04-04-2022 Screening for malignant neoplasm of breast Mammogram [facility] Start: 02-26-2022 Influenza vaccination INFLUENZA (#1) [facility] Comment on above: Postponed from 04/30/2021 (Declined at t his time) Start: 01-22-2022 BP CONTROLLED (<130/80) BP CONTROLLED (<130/80) [facility] Start: 12-25-2021 End: 02-24-2022 Bacteria identified in Urine by Culture URINE CULTURE Microbiology Routine Urinary tract infection symptoms Expected: 12/25/2021, Expires: 02/24/2022 [facility] Work Phone: Comment on above: Expected: 12/25/2021, Expires: 2 Start: 12-25-2021 End: 02-24-2022 Urinalysis complete panel - Urine URINALYSIS, WITH MICROSCOPIC Lab Routine Urinary tract infection symptoms Expected: 12/25/2021, Expires: 02/24/2022 [facility] Work Phone: Comment on above: Expected: 12/25/2021, Expires: 2 Start: 12-17-2021 End: 02-16-2022 FERRITIN BLD FERRITIN BLD Lab Routine Anemia, unspecified type Expected: 12/17/2021, Expires: 02/16/2022 [facility] Work Phone: Comment on above: Expected: 12/17/2021, Expires: 2 Start: 12-17-2021 End: 02-16-2022 Folate [Mass/volume] in Serum or Plasma FOLATE SERUM Lab Routine Anemia, unspecified type Expected: 12/17/2021, Expires: 02/16/2022 [facility] Work Phone: Comment on above: Expected: 12/17/2021, Expires: 2 Start: 12-17-2021 End: 02-16-2022 IRON + TIBC IRON + TIBC Lab Routine Anemia, unspecified type Expected: 12/17/2021, Expires: 02/16/2022 [facility] Work Phone: Comment on above: Expected: 12/17/2021, Expires: 2 Start: 12-17-2021 End: 02-16-2022 VITAMIN B12 BLOOD VITAMIN B12 BLOOD Lab Routine Anemia, unspecified type Expected: 12/17/2021, Expires: 02/16/2022 [facility] Work Phone: Comment on above: Expected: 12/17/2021, Expires: 2 Start: 08-30-2021 ADVANCE DIRECTIVE DISCUSSION ADVANCE DIRECTIVE DISCUSSION [facility] Start: 04-30-2021 Influenza vaccination Sequential Influenza Vaccine (#1) [facility] Start: 08-06-2020 End: 08-06-2020 Office Visit 08/06/2020 Office Visit Neurology Armais Cheng MD [address] [place] [address] [phone] [facility] Start: 04-30-2020 Influenza vaccination given Sequential Influenza Vaccine (#1) [facility] Start: 08-15-2019 End: 08-15-2019 Ambulatory 08/15/2019 Office Visit Neurology Aramis Cheng MD [address] [place] [address] [phone] [facility] Start: 08-11-2018 Ambulatory 08/11/2018 Office Visit Neurology Aramis Cheng MD [address] [place] [address] [phone] [facility] Start: 04-30-2018 Influenza vaccination SEQUENTIAL INFLUENZA VACCINE (#1) [facility] Start: 12-09-2016 Screening for malignant neoplasm of lung Low-dose CT Lung Cancer Screen [facility] Start: 12-02-2016 Pneumococcal vaccination PNEUMOCOCCAL VACCINE AGE 65+ (2 of 2 - PCV13) [facility] Start: 2015 Fall risk assessment Falls Risk Assessment [facility] Start: 2010 RSV Vaccine (1 - 1-dose 60+ series) RSV Vaccine (1 - 1-dose 60+ series) [facility] Start: 2010 Zoster vacc, sc ZOSTER VACCINE [facility] Work Phone: Start: 2000 Administration of herpes zoster vaccine Zoster Vaccines (1 of 2) [facility] Start: 2000 Screening for malignant neoplasm of colon [facility] Start: 2000 SHINGRIX VACCINE (1 of 2) SHINGRIX VACCINE (1 of 2) [facility] Start: 2000 ZOSTER VACCINES (1 of 2) ZOSTER VACCINES (1 of 2) [facility] Start: 1995 COLOGUARD (FIT-DNA) COLOGUARD (FIT-DNA) [facility] Start: 1995 FECAL OCCULT BLOOD FECAL OCCULT BLOOD [facility] Start: 1995 Screening for malignant neoplasm of colon [facility] Start: 1995 SIGMOIDOSCOPY SIGMOIDOSCOPY [facility] Start: 1968 Hepatitis C antibody, confirmatory test Hepatitis C Screening [facility] Start: 1968 Hepatitis C screening Hepatitis C Screening [facility] Start: 1966 COVID-19 Vaccine (1 of 2) COVID-19 Vaccine (1 of 2) [facility] Start: 1962 COVID-19 Vaccine (1) COVID-19 Vaccine (1) [facility] Start: 1953 History and physical examination, annual for health maintenance Wellness Visit [facility] Start: 01-15-1951 COVID-19 Vaccine (#1) COVID-19 Vaccine (#1) [facility] Start: 1950 Adult depression screening assessment DEPRESSION SCREENING (PHQ9) [facility] Start: 1950 Fall risk assessment Falls Risk Assessment [facility] Start: 1950 Hepatitis C antibody, confirmatory test HEPATITIS C SCREENING [facility] Start: 1950 HEPATITIS C SCREENING HEPATITIS C SCREENING [facility] Work Phone: Start: [address] Low-dose [address] Lung Cancer Screen Low-dose CT Lung Cancer Screen [facility] Work Phone: Start: 1950 Screening colonoscopy COLONOSCOPY [facility] Work Phone: Start: 1950 Screening for malignant neoplasm of colon [facility] Start: 1950 Screening for malignant neoplasm of lung Low-dose CT Lung Cancer Screen [facility] Start: 1950 Screening for osteoporosis DEXA SCAN [facility] Start: 1950 Screening mammography Mammogram [facility] Start: 1950 SUBSTANCE ABUSE SCREENING (AUDIT-C) SUBSTANCE ABUSE SCREENING (AUDIT-C) [facility] Start: 1950 Tetanus vaccination TETANUS EVERY 10 YR [facility] Work Phone: Bacteria identified in Urine by Culture URINE CULTURE Microbiology Routine Dysuria 03/31/2022 1:50 PM EDT [facility] Work Phone: End: 04-13-2025 DBT Breast - bilateral screening RUSSELL SCREENING W [facility] Radiology Routine Encounter for screening mammogram for breast cancer 1 Occurrences starting 03/14/2024 until 04/13/2025 [facility] Work Phone: Comment on above: 1 Occurrences starting 03/14/2024 until 04/13/2025 End: 06-10-2023 ECG COMPLETE ECG COMPLETE ECG Routine Cardiomyopathy, nonischemic (HCC) 1 Occurrences starting 06/10/2022 until 06/10/2023 [facility] Work Phone: Comment on above: 1 Occurrences starting 06/10/2022 until 06/10/2023 Hemoglobin.gastroint grace nal.lower [Presence] in Stool by Immunoassay IMMUNOCHEMICAL FECAL OCCULT BLOOD TEST Lab Routine Anemia, unspecified type Ordered: 03/20/2024 [facility] Comment on above: Ordered: 03/20/2024 End: 03-12-2024 PVR ANK PRESS [facility]VR ANK PRESS [facility] Vascular Lab Routine Dermatophytosis of nail PVD (peripheral vascular disease) (HCC) 1 Occurrences starting 03/12/2023 until 03/12/2024 [facility] Work Phone: Comment on above: 1 Occurrences starting 03/12/2023 until 03/12/2024 End: 04-02-2024 Radiologic exam chest 2 views XR CHEST 2V FRONTAL/LAT Radiology Routine Chronic systolic (congestive) heart failure (HCC) 1 Occurrences starting 03/04/2023 until 04/02/2024 [facility] Work Phone: Comment on above: 1 Occurrences starting 03/04/2023 until 04/02/2024 Removal impacted cer umen irrigation/lvg unilat AMBULATORY EAR LAVAGE/IRRIGATION Procedures Routine Bilateral impacted cerumen Ordered: 06/10/2023 [facility] Work Phone: Comment on above: Ordered: 06/10/2023 End: 06-19-2023 Screening mammography bi 2-view breast inc cad RUSSELL SCREENING Radiology Routine Encounter for screening mammogram for breast cancer 1 Occurrences starting 05/20/2022 until 06/19/2023 [facility] Work Phone: Comment on above: 1 Occurrences starting 05/20/2022 until 06/19/2023 End: 12-28-2024 US Kidney - bilateral and Urinary bladder US KIDNEY/BLADDER Radiology Routine Renal mass 1 Occurrences starting 12/02/2023 until 12/28/2024 [facility] Work Phone: Comment on above: 1 Occurrences starting 12/02/2023 until 12/28/2024 US Kidney - bilatera l and Urinary bladder US KIDNEY/BLADDER Radiology Routine Renal mass 04/10/2024 11:17 AM EDT [facility] Work Phone: [facility] Immunizations Immunization Date Immunization Notes Care Provider Fa [facility] 07-16-2020 influenza, high-dose , quadrivalent vaccine (FLUZONE HIGH DOSE QUADRIVALENT) Jonathan Aguila MD Work Phone: [facility] 07-16-2020 influenza virus vacc ine, unspecified formulation Lenin Bhatt MD Work Phone: [facility] 10-30-2019 tetanus toxoid, redu sanjuana diphtheria toxoid, and acellular pertussis vaccine, adsorbed Jonathan Aguila MD Work Phone: [facility] Work Phone: 05-30-2019 influenza, high dose seasonal, preservative-free Jonathan Aguila MD Work Phone: [facility] 11-14-2018 tetanus and diphther ia toxoids, adsorbed, preservative free, for adult use (2 Lf of tetanus toxoid and 2 Lf of diphtheria toxoid) Jonathan Aguila MD Work Phone: [facility] Work Phone: 07-04-2018 influenza, high dose seasonal, preservative-free Jonathan Aguila MD Work Phone: [facility] Work Phone: 06-30-2017 influenza, high dose seasonal, preservative-free Jonathan Aguila MD Work Phone: [facility] 12-28-2016 pneumococcal conjuga te vaccine, 13 valent Jonathan Aguila MD Work Phone: [facility] 09-03-2016 influenza, high dose seasonal, preservative-free Jonathan Aguila MD Work Phone: [facility] Work Phone: 12-03-2015 pneumococcal polysaccharide vaccine, 23 valent; Translations: [pneumococcal] Aramis Cheng [facility] 06-27-2014 influenza, seasonal, injectable, preservative free Jonathan Aguila MD Work Phone: [facility] Work Phone: Payers Date Payer Category Payer Unknown [id number] 2024 Self-pay [id number] 2017 Medicaid [id number] 2017 Medicare [id number]. [id number] 2017 Medicare (Managed Care) [facility] MEDICARE [id number] 2017 Medicare [id number] 2017 Medicare xxxxxxxxx [id number] 2017 Medicare [id number]. [id number] 1950 Unknown [id number] 2.840.1.938338.3.579.2. 278 1950 Unknown [id number] 2.840.1.989418.3.579.2. 903 Unknown [id number] Unknown [facility] *DO NOT USE* [id number] Unknown [id number] 2.840.1.370386.3.579.2. 462 Unknown [id number] 2.840.1.034071.3.579.2. 462 Unknown [id number] 2.840.1.943039.3.579.2. 462 Unknown [id number] 2.840.1.833495.3.579.2. 462 Unknown [id number] 2.16840.1.503309.3.579.2. 462 Unknown [id number] 2.840.1.906302.3.579.2. 462 Unknown [id number] 2.16840.1.469680.3.579.2. 462 Unknown [id number] 2.16.840.1.360724.3.579.2. 462 Unknown [id number] 2.16.840.1.045977.3.579.2. 462 Unknown [id number] 2.16.840.1.138393.3.579.2. 462 Unknown [id number] 2.16.840.1.052709.3.579.2. 462 Unknown [id number] 2.16.840.1.399224.3.579.2. 462 Unknown [id number] 2.16.840.1.723270.3.579.2. 462 Unknown [id number] 2.16.840.1.383443.3.579.2. 462 Unknown [id number] 2.840.1.816917.3.579.2. 462 Unknown [id number] 2.16840.1.519404.3.579.2. 462 Unknown [id number] 2.16840.1.262116.3.579.2. 462 Unknown [id number] 2.16.840.1.112402.3.579.2. 462 Unknown [id number] 2.16.840.1.440167.3.579.2. 462 Unknown [id number] 2.16840.1.840374.3.579.2. 462 Unknown [id number] 2.840.1.001883.3.579.2. 462 Unknown [id number] 2.16.840.1.319730.3.579.2. 462 Unknown [id number] 2.16.840.1.705656.3.579.2. 462 Unknown [id number] 2.16.840.1.530726.3.579.2. 462 Unknown [id number] 2.16.840.1.421222.3.579.2. 462 Unknown [id number] 2.16840.1.442976.3.579.2. 462 Unknown [id number] 2.16.840.1.793039.3.579.2. 462 Unknown [id number] 2.16.840.1.379201.3.579.2. 462 Social History Date Type Detail Facility Start: 08-26-2017 End: 06-21-2024 Tobacco smoking status NHIS Former smoker [facility] Work Phone: End: 03-30-2013 History of tobacco use Current smoker [facility] Work Phone: End: 03-30-2013 History of tobacco use Cigarette Smoker [facility] Work Phone: Start: 08-26-2017 End: 08-04-2020 Cigarettes smoked current (pack per day) - Reported [facility] Start: 1950 Sex Assigned At Not on file [facility] Work Phone: Start: 10-05-2019 End: 11-20-2024 Alcohol intake Current non-drinker of alcohol (finding) [facility] Start: 08-06-2020 End: 05-24-2024 Tobacco use and exposure Never used [facility] Start: 11-30-2021 End: 09-28-2022 Exposure to SARS-CoV-2 (event) Not sure [facility] Start: 08-04-2020 End: 03-04-2023 Tobacco use panel [facility] Adult Depression Screening Assessment 0 [facility] Start: 03-25-2023 End: 03-25-2023 Tobacco smoking status NHIS Unknown if ever smoked [facility] Start: 08-17-2018 None [facility] Start: 08-17-2018 Alone [facility] Start: 08-28-2020 Non-smoker [facility] Start: 1950 Sex Assigned At Female W [facility] How often to you hav e a drink containing alcohol? Never [facility] Start: 05-24-2024 Education 13 [facility] Start: 11-28-2024 Sex Female (finding) [facility] Procedure Code Equipment Code Equipment Origin al Text Equipment Identifier Dates Sling Implant Tv t Device W/Blue Mesh - [id number] Start: 12-02-2015 Sling Implant Tv t Device W/Blue Mesh - [id number] Start: 12-02-2015 Sling Implant Tv t Device W/Blue Mesh - [id number] Start: 12-02-2015 Clinical Notes 08-31-2018 to 02-20-2025 Note Date & Type Note Facility 02-20-2025 Progress note Note Date/Time February 20, 2025 9:08am [facility] [address] [place] [address] Progress Note - Wound Care 02/20/25 0853 MR#: [id number] Acct: [id number] Name: DALIA LOPEZ Rep #:[id number] : 1950 74 From: Alverto Carrasco MD PCP: Dr. Lenin Bhatt MD Status:R EG RCR Location: History of Present Illness Date of Service: 02/19/25 Chief Complaint: Non healing sacral ulcer Progress of Wound: The patient is a 74-year-old female presenting with a non-healing sacral wound. The wound initially appeared last year, healed spontaneously, but recurred approximately six months ago. The patient has not accepted a pressure offloadingbed, which may contribute to the wound's persistence. The patient has a history of peripheral vascular disease, which affects circulation below the hips and contributes to her limited mobility. She has experienced two strokes, the second occurring after discontinuation of blood thinners for a hysterectomy. 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 The patient has congenital heart disease, although the presence of atrial fibrillation is uncertain. She is currently on blood thinners and has a history of blood clots in the legs. The patient is borderline diabetic, with her last A1c recorded in October. She quit smoking after her first stroke and denies current tobacco use. Attestation: Documentation on this patient encounter was supported using ambient scribe technology/ voice AI technology. The patient consented to recording for the purpose of documenting the encounter. Provider reviewed content of the generatednote prior to signature. Objective Data Objective Data - Cardiovascular: Denies chest pain, orthopnea, or syncope. - Neurological: Reports aphasia and circulation issues leading to dyspnea and reduced physical activity. - Endocrine: Denies current symptoms of diabetes, borderline diabetic status noted. - Respiratory: Denies cough, hemoptysis, or wheezing. Vital Signs: Vital Signs Temp Pulse Resp BP O2 Del Method 97.3 F L 94 18 127/57 H Room Air 02/19/25 14:09 02/19/25 14:09 02/19/25 14:02/19/25 14:02/15/25 12:02 Oxygen Delivery Method Room Air Weight: 140 lb 0.002 oz Body Mass Index (BMI) 0.0 Lab / Micro Data Attestation: I reviewed the patient's lab results. Lab results narrative: - Labs: Albumin level was 3.8 g/dL in October, indicating good nutritional status. - Imaging: Sacrum coccyx x-ray in October, no significant findings reported. Charges/Coding Visit Charges Office Visits / Consults: [id number] OV L4 New 45min Physical Exam Narrative - Integumentary: Sacral wound, partial thickness, stage 3, approximately 0.5 x 0.5 cm, no drainage observed, does not probe to bone. Debridement Note Debridement Note No debridement was completed: No debridement was completed today Post-Debridement Measurements and Additional Note: Post-Debridement Measurements/Treatment - Nurse 1 - General Ulcer Assessment Start: 02/01/25 10:59 Freq: Status: Active Protocol: .LOWEXAlberto Activity Type Activity Date Activity User E-sign Co-sign Detail Recorded Client Recorded Date Recorded By Document 02/01/25 11:00 MT [id number] 02/01/25 11:19 MT Document 02/08/25 09:56 DS [id number] 02/08/25 09:57 DS Document 02/15/25 12:02 KW [id number] 02/15/25 12:04 KW Document 02/19/25 14:09 DL [id number] 02/19/25 14:16 DL 02/01/25 02/08/25 02/15/25 11:00 09:56 12:02 - Today's Visit Information Type of service Follow-up Visit Follow-up Visit Follow-up Visit (Physician/[employer] (Physician/[employer]ION [employer] (Physician/[employer] ) ) ) Arrival Mode Ambulatory, Ambulatory, Ambulatory, Walker Walker Walker Transfer Assistance Accompanied by self Patient Identification Verified (Name & Yes Yes Yes ) Patient Requires Transmission-Based No Precautions Safety Precautions Fall Prevention Fall Prevention Height and Weight Body Mass Index (BMI) 0.0 0.0 0.0 BMI Classification Underweight Underweight Underweight Vital Signs Temperature (97.8 F-99.1 F) 97 F L 98.9 F 96.9 F L Temperature Source Temporal Temporal Temporal Pulse Rate (60-100) 78 84 80 Pulse Location Monitor Monitor Monitor Respiratory Rate (12-18) 18 18 16 Respiratory rate source Observation Observation Observation Oxygen Delivery Method Room Air Room Air Room Air Blood Pressure (90/60-120/80) 110/55 L 114/54 L 133/65 H Blood Pressure Mean (mm Hg) 73 74 87 Source Manual Monitor Monitor Position Sitting Sitting Sitting Blood Pressure Location Right Arm Left Arm Left Arm History Since Last Visit- (Skip if this is Patient's initial visit) Have you changed medications since your No No last visit? Any new allergies or adverse reactions No No Had a fall/change in ADL's that may No No increase risk of falls Signs or symptoms of abuse and/or No No neglect since last visit Have you been in the hospital since your No No last visit? Has dressing in place as prescribed Yes Yes Yes Has compression in place as prescribed Yes N/A N/A Has offloadiing in place as prescribed Yes N/A N/A Experienced any changes in pain level or Yes No No management Left Footwear Regular Shoe Regular Shoe Regular Shoe Right Footwear Regular Shoe Regular Shoe Regular Shoe Pain Scale: 0-10 Numeric Is Patient Pain Free? Yes Yes Yes 02/19/25 14:09 WC - Today's Visit Information Type of service Follow-up Visit (Physician/[employer] ) Arrival Mode Walker Transfer Assistance None Accompanied by Patient Identification Verified (Name & Yes ) Patient Requires Transmission-Based No Precautions Safety Precautions Height and Weight Body Mass Index (BMI) 0.0 BMI Classification Underweight Vital Signs Temperature (97.8 F-99.1 F) 97.3 F L Temperature Source Temporal Pulse Rate (60-100) 94 Pulse Location Monitor Respiratory Rate (12-18) 18 Respiratory rate source Observation Oxygen Delivery Method Blood Pressure (90/60-120/80) 127/57 H Blood Pressure Mean (mm Hg) 80 Source Monitor Position Blood Pressure Location History Since Last Visit- (Skip if this is Patient's initial visit) Have you changed medications since your No last visit? Any new allergies or adverse reactions No Had a fall/change in ADL's that may No increase risk of falls Signs or symptoms of abuse and/or No neglect since last visit Have you been in the hospital since your No last visit? Has dressing in place as prescribed Yes Has compression in place as prescribed N/A Has offloadiing in place as prescribed Yes Experienced any changes in pain level or No management Left Footwear Right Footwear Pain Scale: 0-10 Numeric Is Patient Pain Free? Yes WC - Nurse 1 - General Ulcer Measurement Start: 02/01/25 10:59 Freq: Status: Active Protocol: Activity Type Activity Date Activity User E-sign Co-sign Detail Recorded Client Recorded Date Recorded By Document 02/01/25 11:00 MT [id number] 02/01/25 11:19 MT Document 02/08/25 10:02 DS [id number] 02/08/25 10:03 DS Document 02/15/25 12:02 KW [id number] 02/15/25 12:04 KW Document 02/19/25 14:09 DL [id number] 02/19/25 14:16 DL 02/01/25 02/08/25 02/15/25 11:00 10:02 12:02 Wound Center Nurse 1 #1- SACRAL -Current Size (cm) - Length 0.5 0.6 0.5 -Current Size (cm) - Width 0.3 0.4 0.2 -Current Size (cm) - Depth 0.2 0.5 0.5 -Total Square Cm 0.15 0.24 0.10 -Photo Taken No -Tunneling No -Undermining/Tunneling No -Circular Undermining No -Exudate Amt Small Small -Exudate Type Serosanguineous Serosanguineous -Wound Margin Distinct, Distinct, Distinct, Outline Outline Outline Attached Attached Attached -Granulation Amt Large (67-100%) Large (67-100%) -Granulation Quality Pale,[place] -Necrosis Amt Small (1-33%) -Necrotic Tissue Type Adherent Slough -Structure Exposed -Texture (Tsering-wound Skin Appearance) Assessed Assessed Assessed -Moisture (Tsering-wound Skin Appearance) Assessed Assessed Assessed -Color (Tsering-wound Skin Appearance) Assessed Assessed Assessed -Temperature (Tsering-wound Skin No Abnormality No Abnormality No Abnormality Appearance) (Pt Warm) (Pt Warm) (Pt Warm) -Tenderness on Palpation (Tsering-wound No No No Skin Appearance) -Ulcer Cleansing Soap and Water Soap and Water Rinsed/ Irrigated with Saline -Foul Odor after Cleansing No No No -Anesthetic Used 5% Lidocaine 5% Lidocaine 5% Lidocaine Gel Gel Gel Lower Limb Edema Present NA 02/19/25 14:09 Wound Center Nurse 1 #1- SACRAL -Current Size (cm) - Length 0.2 -Current Size (cm) - Width 0.2 -Current Size (cm) - Depth 0.2 -Total Square Cm 0.04 -Photo Taken Yes -Tunneling -Undermining/Tunneling -Circular Undermining -Exudate Amt None Present -Exudate Type -Wound Margin -Granulation Amt Small (1-33%) -Granulation Quality [place] -Necrosis Amt None Present (0 %) -Necrotic Tissue Type -Structure Exposed N/A -Texture (Tserign-wound Skin Appearance) Scarring -Moisture (Tsering-wound Skin Appearance) No Abnormality -Color (Tsering-wound Skin Appearance) No Abnormality -Temperature (Tsering-wound Skin No Abnormality Appearance) (Pt Warm) -Tenderness on Palpation (Tsering-wound Yes Skin Appearance) -Ulcer Cleansing Soap and Water -Foul Odor after Cleansing -Anesthetic Used 4% Lidocaine Solution Lower Limb Edema Present - Nurse 2 - General Ulcer CM Notes Start: 02/01/25 10:59 Freq: Status: Active Protocol: Activity Type Activity Date Activity User E-sign Co-sign Detail Recorded Client Recorded Date Recorded By Document 02/01/25 11:31 [id number] 02/01/25 11:33 Document 02/08/25 10:26 [id number] 02/08/25 10:36 Document 02/15/25 12:30 [id number] 02/15/25 12:33 Document 02/19/25 14:44 [id number] 02/19/25 14:47 DS 02/01/25 02/08/25 02/15/25 11:31 10:26 12:30 Wound Center Nurse 2 #1- SACRAL -Time 11:31 10:27 12:30 -Correct Patient Yes Yes Yes -Correct Side, Site, Position Yes Yes Yes -Correct Procedure Yes Yes Yes -Procedure Performed Yes Yes Yes -Type of Procedure Debridement Debridement Debridement -Clinical Debridement Subcutaneous Subcutaneous Subcutaneous -Tissue Removed Subcutaneous Subcutaneous Subcutaneous -Post Debridement (cm) - Length 0.4 0.6 0.2 -Post Debridement (cm) - Width 0.2 0.4 0.3 -Post Debridement (cm) - Depth 0.6 0.6 0.5 -Total Square (Post) (cm) 0.08 0.24 0.06 -Area of Debridement (cm) - Length 0.4 0.6 0.2 -Area of Debridement (cm) - Width 0.2 0.4 0.3 -Total Square (Area) (cm) 0.08 0.24 0.06 -Tunneling Yes No No -Tunneling Position (O'clock) 6 -Tunneling Distance (cm) 0.6 -Undermining/Tunneling No No No -Circular Undermining No No No -Wound/Ulcer Outcome Not Healed Not Healed Not Healed -Ulcer Cleansing Rinsed/ Rinsed/ Not Cleansed Irrigated with Irrigated with Saline Saline -Foul Odor after Cleansing No No No -Bioengineered Tissue No No No -Bleeding Controlled with Pressure Pressure Pressure -Treatment Response Procedure Procedure Procedure Tolerated Well Tolerated Well Tolerated Well -Offloading No No No -Debridement - Subq, 1st 20sq cm Yes Yes Yes Pain Scale: 0-10 Numeric Is Patient Pain Free? Yes Yes Yes 02/19/25 14:44 Wound Center Nurse 2 #1- SACRAL -Time 14:44 -Correct Patient Yes -Correct Side, Site, Position Yes -Correct Procedure -Procedure Performed No -Type of Procedure -Clinical Debridement -Tissue Removed -Post Debridement (cm) - Length 0.5 -Post Debridement (cm) - Width 0.5 -Post Debridement (cm) - Depth 0.3 -Total Square (Post) (cm) 0.25 -Area of Debridement (cm) - Length 0.5 -Area of Debridement (cm) - Width 0.5 -Total Square (Area) (cm) 0.25 -Tunneling No -Tunneling Position (O'clock) -Tunneling Distance (cm) -Undermining/Tunneling No -Circular Undermining No -Wound/Ulcer Outcome Not Healed -Ulcer Cleansing -Foul Odor after Cleansing -Bioengineered Tissue -Bleeding Controlled with -Treatment Response -Offloading -Debridement - Subq, 1st 20sq cm Pain Scale: 0-10 Numeric Is Patient Pain Free? Yes WC - Nurse 3 - General Ulcer D/C NN Start: 02/01/25 10:59 Freq: Status: Active Protocol: Activity Type Activity Date Activity User E-sign Co-sign Detail Recorded Client Recorded Date Recorded By Document 02/01/25 11:38 DS [id number] 02/01/25 11:50 DS Document 02/08/25 10:54 DS [id number] 02/08/25 10:55 DS Document 02/15/25 12:45 KW [id number] 02/15/25 12:45 KW Document 02/19/25 14:58 DL [id number] 02/19/25 14:59 DL 02/01/25 02/08/25 02/15/25 11:38 10:54 12:45 Wound Care Center Nurse 3 #1- SACRAL -Ulcer Cleansing Not Cleansed -Primary Dressing Applied Aquacel Extra, Aquacel Extra, Aquacel Extra, NonAdherent NonAdherent NonAdherent Contact Layer Contact Layer Contact Layer -Other Dressing abd pad -Primary Dressing Covered/Secured with Secured with Secured with Dry Gauze, Tape Tape Secured with Tape -Other Covering -Aquacel Extra 1 1 1 Tsering-Wound Care Treatment Response Pain Scale: 0-10 Numeric Is Patient Pain Free? Yes Yes Yes WC - Visit Discharge Discharge Condition Stable Stable Stable Ambulatory Status Ambulatory, Ambulatory, Ambulatory, Walker Walker Walker Transportation Private Auto Private Auto Private Auto Accompanied by Medication Reconcilliation completed & No provided to patient/care provider Clinical Summary of Care Provided Yes 02/19/25 14:58 Wound Care Center Nurse 3 #1- SACRAL -Ulcer Cleansing Rinsed/ Irrigated with Saline -Primary Dressing Applied Aquacel Extra, NonAdherent Contact Layer -Other Dressing -Primary Dressing Covered/Secured with Dry Gauze, Secured with Tape -Other Covering ABD -Aquacel Extra 1 Tsering-Wound Care Barrier Treatment Response Procedure Tolerated Well Pain Scale: 0-10 Numeric Is Patient Pain Free? Yes WC - Visit Discharge Discharge Condition Stable Ambulatory Status Ambulatory, Walker Transportation Private Auto Accompanied by son Medication Reconcilliation completed & provided to patient/care provider Clinical Summary of Care Provided Assessment/Plan Assessment/Plan (1) Sacral decubitus ulcer, stage IV: CODE(S): L89.154 - Pressure ulcer of sacral region, stage 4 (2) Debility: CODE(S): R53.81 - Other malaise (3) History of stroke: CODE(S): Z86.73 - Personal history of transient ischemic attack (TIA), andcerebral infarction without residual deficits (4) Decubitus ulcer of sacral area: CODE(S): L89.159 - Pressure ulcer of sacral region, unspecified stage PLAN: Plan Assessment and Plan The 74-year-old female with a history of peripheral vascular disease and cerebrovascular accidents presents with a non-healing sacral wound. The wound appears to be partial thickness, stage 3, and approximately 0.5 x 0.5 cm, with no drainage observed and does not probe to bone, suggesting no immediate osteomyelitis. The patient's nutritional status appears adequate with an albuminlevel of 3.8 g/dL, but further evaluation with an MRI could be considered in thenext couple of weeks to rule out underlying osteomyelitis if the wound continuesto fail to improve. If there is osteomyelitis, would recommend bone biopsy frominterventional radiology (no bone exposed at this time so no indication for exposing bone for a biopsy). Then would treat with 6 weeks IV antibiotics/Infectious disease consult. 1. Peripheral Vascular Disease The patient should continue with current management strategies for peripheral vascular disease, including monitoring circulation and considering vascular surgery consultation if symptoms worsen. 2. Cerebrovascular Accident The patient should maintain anticoagulation therapy to prevent further cerebrovascular events and manage aphasia and circulation issues through rehabilitation and supportive care. 3. Sacral Wound Local wound care with Aquasil is recommended, and an MRI should be considered torule out osteomyelitis if the wound does not improve. 4. Congenital Heart Disease Regular cardiology follow-up is advised to monitor congenital heart disease and assess for any arrhythmias or complications. 5. Borderline Diabetes The patient should continue monitoring blood glucose levels and maintain a diet low in added sugars to manage borderline diabetes. - Continue using Aquacel for wound care and monitor for any changes. - Follow up with Dr. Delcid for ongoing management and evaluation. - Maintain a diet low in added sugars and monitor blood glucose levels. - Attend regular cardiology appointments to monitor heart health. 02/20/25 0908 <Electronically signed by Alverto Carrasco MD> Cosigner Signature (if applicable): CC: ~ Signed [facility] Work Phone: [phone] [facility] [address] [place] [address] Progress Note - Wound Care 02/20/25 0853 MR#: [id number] Acct: [id number] Name: DALIA LOPEZ Lisandro Rep #:[id number] : 1950 74 From: Alverto Carrasco MD PCP: Dr. Lenin Bhatt MD Status:R EG RCR Location: History of Present Illness Date of Service: 02/19/25 Chief Complaint: Non healing sacral ulcer Progress of Wound: The patient is a 74-year-old female presenting with a non-healing sacral wound. The wound initiallyappeared last year, healed spontaneously, but recurred approximately six months ago. The patient has not accepted a pressure offloadingbed, which may contribute to the wound's persistence. The patient has a history of peripheral vascular disease, which affects circulation below the hips and contributes to her limited mobility. She has experienced two strokes, the second occurring afterdiscontinuation of blood thinners for a hysterectomy. The strokes have resulted in aphasia and circu lation issues, leading to dyspnea and reduced physical activity. The patient has congenital heart disease, although the presence of atrial fibrillation is uncertain. She is currently on blood thinners and has a history of blood clots in the legs. The patient is borderline diabetic, with her last A1c recorded in October. She quit smoking after herfirst stroke and denies current tobacco use. Attestation: Documentation on this patient encounter was supported using ambient scribe technology/ voice AI technology. The patient consented to recording for the purpose of documenting the encounter. Provider reviewed content of the generatednote prior to signature. Objective Data Objective Data - Cardiovascular: Denies chest pain, orthopnea, or syncope. - Neurological: Reports aphasia and circulation issues leading to dyspnea and reduced physical activity. - Endocrine: Denies current symptoms of diabetes, borderline diabetic status noted. - Respiratory: Denies cough, hemoptysis, or wheezing. Vital Signs: Vital Signs Temp Pulse Resp BP O2 Del Method 97.3 F L 94 18 127/57 H Room Air 02/19/25 14:02/19/25 14:02/19/25 14:02/19/25 14:02/15/25 12:02 Oxygen Delivery Method Room Air Weight: 140 lb 0.002 oz Body Mass Index (BMI) 0.0 Lab / Micro Data Attestation: I reviewed the patient's lab results. Lab results narrative: - Labs: Albumin level was 3.8 g/dL in October, indicating good nutritional status. - Imaging: Sacrum coccyx x-ray in October, no significant findings reported. Charges/Coding Visit Charges Office Visits / Consults: 16060 OV L4 New 45min Physical Exam Narrative - Integumentary: Sacral wound, partial thickness, stage 3, approximately 0.5 x 0.5 cm, no drainage observed, does not probe to bone. Debridement Note Debridement Note No debridement was completed: No debridement was completed today Post-Debridement Measurements and Additional Note: Post-Debridement Measurements/Treatment - Nurse 1 - General Ulcer Assessment Start: 02/01/25 10:59 Freq: Status: Active Protocol: LAURIE Activity Type Activity Date Activity User E-sign Co-sign Detail Recorded Client Recorded Date Recorded By Document 02/01/25 11:00 MT [id number] 02/01/25 11:19 MT Document 02/08/25 09:56 DS [id number] 02/08/25 09:57 DS Document 02/15/25 12:02 KW [id number] 02/15/25 12:04 KW Document 02/19/25 14:09 DL [id number] 02/19/25 14:16 DL 02/01/25 02/08/25 02/15/25 11:00 09:56 12:02 - Today's Visit Information Type of service Follow-up Visit Follow-up Visit Follow-up Visit (Physician/ONE [employer]IECE EXPANSION MAKER HAND (Physician/ONE PIECE EXPANSION MAKER HAND (Physician/ONE [employer]IECE EXP[employer]ION MAKER HAND ) ) ) Arrival Mode Ambulatory, Ambulatory, Ambulatory, Walker Walker Walker Transfer Assistance Accompanied by self Patient Identification Verified (Name & Yes Yes Yes ) Patient Requires Transmission-Based No Precautions Safety Precautions Fall Prevention Fall Prevention Height and Weight Body Mass Index (BMI) 0.0 0.0 0.0 BMI Classification Underweight Underweight Underweight Vital Signs Temperature (97.8 F-99.1 F) 97 F L 98.9 F 96.9 F L Temperature Source Temporal Temporal Temporal Pulse Rate (60-100) 78 84 80 Pulse Location Monitor Monitor Monitor Respiratory Rate (12-18) 18 18 16 Respiratory rate source Observation Observation Observation Oxygen Delivery Method Room Air Room Air Room Air Blood Pressure (90/60-120/80) 110/55 L 114/54 L 133/65 H Blood Pressure Mean (mm Hg) 73 74 87 Source Manual Monitor Monitor Position Sitting Sitting Sitting Blood Pressure Location Right Arm Left Arm Left Arm History Since Last Visit- (Skip if this is Patient's initial visit) Have you changed medications since your No No last visit? Any new allergies or adverse reactions No No Had a fall/change in ADL's that may No No increase risk of falls Signs or symptoms of abuse and/or No No neglect since last visit Have you been in the hospital since your No No last visit? Has dressing in place as prescribed Yes Yes Yes Has compression in place as prescribed Yes N/A N/A Has offloadiing in place as prescribed Yes N/A N/A Experienced any changes in pain level or Yes No No management Left Footwear Regular Shoe Regular Shoe Regular Shoe Right Footwear Regular Shoe Regular Shoe Regular Shoe Pain Scale: 0-10 Numeric Is Patient Pain Free? Yes Yes Yes 02/19/25 14:09 WC - Today's Visit Information Type of service Follow-up Visit (Physician/ONE PIECE EXPANSION MAKER HAND ) Arrival Mode Walker Transfer Assistance None Accompanied by Patient Identification Verified (Name & Yes ) Patient Requires Transmission-Based No Precautions Safety Precautions Height and Weight Body Mass Index (BMI) 0.0 BMI Classification Underweight Vital Signs Temperature (97.8 F-99.1 F) 97.3 F L Temperature Source Temporal Pulse Rate (60-100) 94 Pulse Location Monitor Respiratory Rate (12-18) 18 Respiratory rate source Observation Oxygen Delivery Method Blood Pressure (90/60-120/80) 127/57 H Blood Pressure Mean (mm Hg) 80 Source Monitor Position Blood Pressure Location History Since Last Visit- (Skip if this is Patient's initial visit) Have you changed medications since your No last visit? Any new allergies or adverse reactions No Had a fall/change in ADL's that may No increase risk of falls Signs or symptoms of abuse and/or No neglect since last visit Have you been in the hospital since your No last visit? Has dressing in place as prescribed Yes Has compression in place as prescribed N/A Has offloadiing in place as prescribed Yes Experienced any changes in pain level or No management Left Footwear Right Footwear Pain Scale: 0-10 Numeric Is Patient Pain Free? Yes - Nurse 1 - General Ulcer Measurement Start: 02/01/25 10:59 Freq: Status: Active Protocol: Activity Type Activity Date Activity User E-sign Co-sign Detail Recorded Client Recorded Date Recorded By Document 02/01/25 11:00 MT [id number] 02/01/25 11:19 MT Document 02/08/25 10:02 DS [id number] 02/08/25 10:03 DS Document 02/15/25 12:02 KW [id number] 02/15/25 12:04 KW Document 02/19/25 14:09 DL [id number] 02/19/25 14:16 DL 02/01/25 02/08/25 02/15/25 11:00 10:02 12:02 Wound Center Nurse 1 #1- SACRAL -Current Size (cm) - Length 0.5 0.6 0.5 -Current Size (cm) - Width 0.3 0.4 0.2 -Current Size (cm) - Depth 0.2 0.5 0.5 -Total Square Cm 0.15 0.24 0.10 -Photo Taken No -Tunneling No -Undermining/Tunneling No -Circular Undermining No -Exudate Amt Small Small -Exudate Type Serosanguineous Serosanguineous -Wound Margin Distinct, Distinct, Distinct, Outline Outline Outline Attached Attached Attached -Granulation Amt Large (67-100%) Large (67-100%) -Granulation Quality Pale,[place] -Necrosis Amt Small (1-33%) -Necrotic Tissue Type Adherent Slough -Structure Exposed -Texture (Tsering-wound Skin Appearance) Assessed Assessed Assessed -Moisture (Tsering-wound Skin Appearance) Assessed Assessed Assessed -Color (Tsering-wound Skin Appearance) Assessed Assessed Assessed -Temperature (Tsering-wound Skin No Abnormality No Abnormality No Abnormality Appearance) (Pt Warm) (Pt Warm) (Pt Warm) -Tenderness on Palpation (Tsering-wound No No No Skin Appearance) -Ulcer Cleansing Soap and Water Soap and Water Rinsed/ Irrigated with Saline -Foul Odor after Cleansing No No No -Anesthetic Used 5% Lidocaine 5% Lidocaine 5% Lidocaine Gel Gel Gel Lower Limb Edema Present NA 02/19/25 14:09 Wound Center Nurse 1 #1- SACRAL -Current Size (cm) - Length 0.2 -Current Size (cm) - Width 0.2 -Current Size (cm) - Depth 0.2 -Total Square Cm 0.04 -Photo Taken Yes -Tunneling -Undermining/Tunneling -Circular Undermining -Exudate Amt None Present -Exudate Type -Wound Margin -Granulation Amt Small (1-33%) -Granulation Quality [place] -Necrosis Amt None Present (0 %) -Necrotic Tissue Type -Structure Exposed N/A -Texture (Tsering-wound Skin Appearance) Scarring -Moisture (Tsering-wound Skin Appearance) No Abnormality -Color (Tsering-wound Skin Appearance) No Abnormality -Temperature (Tsering-wound Skin No Abnormality Appearance) (Pt Warm) -Tenderness on Palpation (Tsering-wound Yes Skin Appearance) -Ulcer Cleansing Soap and Water -Foul Odor after Cleansing -Anesthetic Used 4% Lidocaine Solution Lower Limb Edema Present WC - Nurse 2 - General Ulcer CM Notes Start: 02/01/25 10:59 Freq: Status: Active Protocol: Activity Type Activity Date Activity User E-sign Co-sign Detail Recorded Client Recorded Date Recorded By Document 02/01/25 11:31 [id number] 02/01/25 11:33 GM Document 02/08/25 10:26 GM [id number] 02/08/25 10:36 GM Document 02/15/25 12:30 GM [id number] 02/15/25 12:33 GM Document 02/19/25 14:44 DS [id number] 02/19/25 14:47 DS 02/01/25 02/08/25 02/15/25 11:31 10:26 12:30 Wound Center Nurse 2 #1- SACRAL -Time 11:31 10:27 12:30 -Correct Patient Yes Yes Yes -Correct Side, Site, Position Yes Yes Yes -Correct Procedure Yes Yes Yes -Procedure Performed Yes Yes Yes -Type of Procedure Debridement Debridement Debridement -Clinical Debridement Subcutaneous Subcutaneous Subcutaneous -Tissue Removed Subcutaneous Subcutaneous Subcutaneous -Post Debridement (cm) - Length 0.4 0.6 0.2 -Post Debridement (cm) - Width 0.2 0.4 0.3 -Post Debridement (cm) - Depth 0.6 0.6 0.5 -Total Square (Post) (cm) 0.08 0.24 0.06 -Area of Debridement (cm) - Length 0.4 0.6 0.2 -Area of Debridement (cm) - Width 0.2 0.4 0.3 -Total Square (Area) (cm) 0.08 0.24 0.06 -Tunneling Yes No No -Tunneling Position (O'clock) 6 -Tunneling Distance (cm) 0.6 -Undermining/Tunneling No No No -Circular Undermining No No No -Wound/Ulcer Outcome Not Healed Not Healed Not Healed -Ulcer Cleansing Rinsed/ Rinsed/ Not Cleansed Irrigated with Irrigated with Saline Saline -Foul Odor after Cleansing No No No -Bioengineered Tissue No No No -Bleeding Controlled with Pressure Pressure Pressure -Treatment Response Procedure Procedure Procedure Tolerated Well Tolerated Well Tolerated Well -Offloading No No No -Debridement - Subq, 1st 20sq cm Yes Yes Yes Pain Scale: 0-10 Numeric Is Patient Pain Free? Yes Yes Yes 02/19/25 14:44 Wound Center Nurse 2 #1- SACRAL -Time 14:44 -Correct Patient Yes -Correct Side, Site, Position Yes -Correct Procedure -Procedure Performed No -Type of Procedure -Clinical Debridement -Tissue Removed -Post Debridement (cm) - Length 0.5 -Post Debridement (cm) - Width 0.5 -Post Debridement (cm) - Depth 0.3 -Total Square (Post) (cm) 0.25 -Area of Debridement (cm) - Length 0.5 -Area of Debridement (cm) - Width 0.5 -Total Square (Area) (cm) 0.25 -Tunneling No -Tunneling Position (O'clock) -Tunneling Distance (cm) -Undermining/Tunneling No -Circular Undermining No -Wound/Ulcer Outcome Not Healed -Ulcer Cleansing -Foul Odor after Cleansing -Bioengineered Tissue -Bleeding Controlled with -Treatment Response -Offloading -Debridement - Subq, 1st 20sq cm Pain Scale: 0-10 Numeric Is Patient Pain Free? Yes - Nurse 3 - General Ulcer D/C NN Start: 02/01/25 10:59 Freq: Status: Active Protocol: Activity Type Activity Date Activity User E-sign Co-sign Detail Recorded Client Recorded Date Recorded By Document 02/01/25 11:38 DS [id number] 02/01/25 11:50 DS Document 02/08/25 10:54 DS [id number] 02/08/25 10:55 DS Document 02/15/25 12:45 KW [id number] 02/15/25 12:45 KW Document 02/19/25 14:58 DL [id number] 02/19/25 14:59 DL 02/01/25 02/08/25 02/15/25 11:38 10:54 12:45 Wound Care Center Nurse 3 #1- SACRAL -Ulcer Cleansing Not Cleansed -Primary Dressing Applied Aquacel Extra, Aquacel Extra, Aquacel Extra, NonAdherent NonAdherent NonAdherent Contact Layer Contact Layer Contact Layer -Other Dressing abd pad -Primary Dressing Covered/Secured with Secured with Secured with Dry Gauze, Tape Tape Secured with Tape -Other Covering -Aquacel Extra 1 1 1 Tsering-Wound Care Treatment Response Pain Scale: 0-10 Numeric Is Patient Pain Free? Yes Yes Yes WC - Visit Discharge Discharge Condition Stable Stable Stable Ambulatory Status Ambulatory, Ambulatory, Ambulatory, Walker Walker Walker Transportation Private Auto Private Auto Private Auto Accompanied by Medication Reconcilliation completed & No provided to patient/care provider Clinical Summary of Care Provided Yes 02/19/25 14:58 Wound Care Center Nurse 3 #1- SACRAL -Ulcer Cleansing Rinsed/ Irrigated with Saline -Primary Dressing Applied Aquacel Extra, NonAdherent Contact Layer -Other Dressing -Primary Dressing Covered/Secured with Dry Gauze, Secured with Tape -Other Covering ABD -Aquacel Extra 1 Tsering-Wound Care Barrier Treatment Response Procedure Tolerated Well Pain Scale: 0-10 Numeric Is Patient Pain Free? Yes WC - Visit Discharge Discharge Condition Stable Ambulatory Status Ambulatory, Walker Transportation Private Auto Accompanied by son Medication Reconcilliation completed & provided to patient/care provider Clinical Summary of Care Provided Assessment/Plan Assessment/Plan (1) Sacral decubitus ulcer, stage IV: CODE(S): L89.154 - Pressure ulcer of sacral region, stage 4 (2) Debility: CODE(S): R53.81 - Other malaise (3) History of stroke: CODE(S): Z86.73 - Personal history of transient ischemic attack (TIA), andcerebral infarction without residual deficits (4) Decubitus ulcer of sacral area: CODE(S): L89.159 - Pressure ulcer of sacral region, unspecified stage PLAN: Plan Assessment and Plan The 74-year-old female with a history of peripheral vascular disease and cerebrovascular accidents presents with a non-healing sacral wound. The wound appears to be partial thickness, stage 3, and approximately 0.5 x 0.5 cm, with no drainage observed and does not probe to bone, suggesting no immediate osteomyelitis. The patient's nutritional status appears adequate with an albuminlevel of 3.8 g/dL, but further evaluation with an MRI could be considered in thenext couple of weeks to rule out underlying osteomyelitis if the wound continuesto fail to improve. If there is osteomyelitis, would recommend bone biopsy frominterventional radiology (no bone exposed at this time so no indication for exposing bone for a biopsy). Then would treat with 6 weeks IV antibiotics/Infectious disease consult. 1. Peripheral Vascular Disease The patient should continue with current management strategies for peripheral vascular disease, including monitoring circulation and considering vascular surgery consultation if symptoms worsen. 2. Cerebrovascular Accident The patient should maintain anticoagulation therapy to prevent further cerebrovascular events and manage aphasia and circulation issues through rehabilitation and supportive care. 3. Sacral Wound Local wound care with Aquasil is recommended, and an MRI should be considered torule out osteomyelitis if the wound does not improve. 4. Congenital Heart Disease Regular cardiology follow-up is advised to monitor congenital heart disease and assess for any arrhythmias or complications. 5. Borderline Diabetes The patient should continue monitoring blood glucose levels and maintain a diet low in added sugarsto manage borderline diabetes. - Continue using Aquacel for wound care and monitor for any changes. - Follow up with Dr. Delcid for ongoing management and evaluation. - Maintain a diet low in added sugars and monitor blood glucose levels. - Attend regular cardiology appointments to monitor heart health. 02/20/25 0908 Cosigner Signature (if applicable): CC: ~ Signed [facility]06-19-2025 Progress note Author Catarino Dominguez [facility] Note Date/Time February 15, 2025 1:42 pm [facility] [address] [place] [address] Progress Note - Wound Care 02/15/25 1339 MR#: [id number] Acct: [id number] Name: DALIA LOPEZ Rep #:[id number] : 1950 74 From: Catarino santiago MD PCP: Dr. Lenin Bhatt MD Status:R EG RCR Location: History of Present Illness Date of Service: 02/15/25 Chief Complaint: Non healing sacral ulcer History of Wound: Patient is a 74 year female who presents to the wound center for evaluation of an a sacral ulcer and a left ischial ulcer. She was recently hospitalized for UTI/and acute kidney disease. She has a history of HTN, hyperlipidemia, seizure disorder, hypothyroidism, debility. Left ischial ulcer from pressure. The sacral ulcer is in the area of previous ulcer that healed last year. She denies fever, chills, nausea and vomiting. She is accompanied today with her son. She has home health. She sleeps on a couch. She states that she is unsure if a bed would fit into her bedroom due to it being so small. Today denies fever, chills, nausea and vomiting. Progress of Wound: No acute concerns reported at this time. Has a visit scheduled with plastic surgery on Wednesday. Objective Data Objective Data Vital Signs: Vital Signs Temp Pulse Resp BP O2 Del Method 96.9 F L 80 16 133/65 H Room Air 02/15/25 12:02 02/15/25 12:02 02/15/25 12:02/15/25 12:02 02/15/25 12:02 Oxygen Delivery Method Room Air Weight: 140 lb 0.002 oz Body Mass Index (BMI) 0.0 Charges/Coding Procedures Integumentary 111xxx-113xx: 48834 Maria M subq tissue 20 sq cm/< Physical Exam Const alert and no apparent distress General Appearance: cooperative and comfortable HEENT normocephalic and head/scalp atraumatic Eyes EOMs intact bilaterally Neck full ROM and supple Resp normal respiratory effort Effort and Inspection: able to speak in complete sentences Skin Wounds: wounds noted size Size: See clinical note, bed other Not entirely visualized due to location , no odor, open and surrounding erythema Neuro oriented x3, CN's II-XII intact bilaterally and moves all extremities Psych mental status grossly normal, thought process normal and cooperative Debridement Note Debridement Note Wound debrided: Sacral Type of Debridement: Excisional debridement Anesthesia Used: 5% Lidocaine Gel Depth: Down to and including healthy tissue and in the subcutaneous layer Percentage of wound debrided: 100 Instrument Used: 3mm curette Tissue Removed: Devitalized tissue Severity: Fat Layer Exposed Amount of bleeding with debridement: Mild Bleeding Controlled with: Pressure Patient tolerated procedure: Patient tolerated procedure well Post-Debridement Measurements and Additional Note: Post-Debridement Measurements/Treatment [place] - Nurse 1 - General Ulcer Assessment Start: 02/01/25 10:59 Freq: Status: Active Protocol: LAURIE Activity Type Activity Date Activity User E-sign Co-sign Detail Recorded Client Recorded Date Recorded By Document 02/01/25 11:00 MT [id number] 02/01/25 11:19 MT Document 02/08/25 09:56 DS [id number] 02/08/25 09:57 DS Document 02/15/25 12:02 KW [id number] 02/15/25 12:04 KW 02/01/25 02/08/25 02/15/25 11:00 09:56 12:02 - Today's Visit Information Type of service Follow-up Visit Follow-up Visit Follow-up Visit (Physician/[employer] (Physician/[employer] (Physician/[employer] ) ) ) Arrival Mode Ambulatory, Ambulatory, Ambulatory, Walker Walker Walker Accompanied by self Patient Identification Verified (Name & Yes Yes Yes ) Patient Requires Transmission-Based No Precautions Safety Precautions Fall Prevention Fall Prevention Height and Weight Body Mass Index (BMI) 0.0 0.0 0.0 BMI Classification Underweight Underweight Underweight Vital Signs Temperature (97.8 F-99.1 F) 97 F L 98.9 F 96.9 F L Temperature Source Temporal Temporal Temporal Pulse Rate (60-100) 78 84 80 Pulse Location Monitor Monitor Monitor Respiratory Rate (12-18) 18 18 16 Respiratory rate source Observation Observation Observation Oxygen Delivery Method Room Air Room Air Room Air Blood Pressure (90/60-120/80) 110/55 L 114/54 L 133/65 H Blood Pressure Mean (mm Hg) 73 74 87 Source Manual Monitor Monitor Position Sitting Sitting Sitting Blood Pressure Location Right Arm Left Arm Left Arm History Since Last Visit- (Skip if this is Patient's initial visit) Have you changed medications since your No No last visit? Any new allergies or adverse reactions No No Had a fall/change in ADL's that may No No increase risk of falls Signs or symptoms of abuse and/or No No neglect since last visit Have you been in the hospital since your No No last visit? Has dressing in place as prescribed Yes Yes Yes Has compression in place as prescribed Yes N/A N/A Has offloadiing in place as prescribed Yes N/A N/A Experienced any changes in pain level or Yes No No management Left Footwear Regular Shoe Regular Shoe Regular Shoe Right Footwear Regular Shoe Regular Shoe Regular Shoe Pain Scale: 0-10 Numeric Is Patient Pain Free? Yes Yes Yes - Nurse 1 - General Ulcer Measurement Start: 02/01/25 10:59 Freq: Status: Active Protocol: Activity Type Activity Date Activity User E-sign Co-sign Detail Recorded Client Recorded Date Recorded By Document 02/01/25 11:00 MT [id number] 02/01/25 11:19 MT Document 02/08/25 10:02 DS [id number] 02/08/25 10:03 DS Document 02/15/25 12:02 KW [id number] 02/15/25 12:04 KW 02/01/25 02/08/25 02/15/25 11:00 10:02 12:02 Wound Center Nurse 1 #1- SACRAL -Current Size (cm) - Length 0.5 0.6 0.5 -Current Size (cm) - Width 0.3 0.4 0.2 -Current Size (cm) - Depth 0.2 0.5 0.5 -Total Square Cm 0.15 0.24 0.10 -Photo Taken No -Tunneling No -Undermining/Tunneling No -Circular Undermining No -Exudate Amt Small Small -Exudate Type Serosanguineous Serosanguineous -Wound Margin Distinct, Distinct, Distinct, Outline Outline Outline Attached Attached Attached -Granulation Amt Large (67-100%) Large (67-100%) -Granulation Quality Pale,[place] -Necrosis Amt Small (1-33%) -Necrotic Tissue Type Adherent Slough -Texture (Tsering-wound Skin Appearance) Assessed Assessed Assessed -Moisture (Tsering-wound Skin Appearance) Assessed Assessed Assessed -Color (Tsering-wound Skin Appearance) Assessed Assessed Assessed -Temperature (Tsering-wound Skin No Abnormality No Abnormality No Abnormality Appearance) (Pt Warm) (Pt Warm) (Pt Warm) -Tenderness on Palpation (Tsering-wound No No No Skin Appearance) -Ulcer Cleansing Soap and Water Soap and Water Rinsed/ Irrigated with Saline -Foul Odor after Cleansing No No No -Anesthetic Used 5% Lidocaine 5% Lidocaine 5% Lidocaine Gel Gel Gel Lower Limb Edema Present NA WC - Nurse 2 - General Ulcer CM Notes Start: 02/01/25 10:59 Freq: Status: Active Protocol: Activity Type Activity Date Activity User E-sign Co-sign Detail Recorded Client Recorded Date Recorded By Document 02/01/25 11:31 [id number] 02/01/25 11:33 Document 02/08/25 10:26 [id number] 02/08/25 10:36 Document 02/15/25 12:30 [id number] 02/15/25 12:33 02/01/25 02/08/25 02/15/25 11:31 10:26 12:30 Wound Center Nurse 2 #1- SACRAL -Time 11:31 10:27 12:30 -Correct Patient Yes Yes Yes -Correct Side, Site, Position Yes Yes Yes -Correct Procedure Yes Yes Yes -Procedure Performed Yes Yes Yes -Type of Procedure Debridement Debridement Debridement -Clinical Debridement Subcutaneous Subcutaneous Subcutaneous -Tissue Removed Subcutaneous Subcutaneous Subcutaneous -Post Debridement (cm) - Length 0.4 0.6 0.2 -Post Debridement (cm) - Width 0.2 0.4 0.3 -Post Debridement (cm) - Depth 0.6 0.6 0.5 -Total Square (Post) (cm) 0.08 0.24 0.06 -Area of Debridement (cm) - Length 0.4 0.6 0.2 -Area of Debridement (cm) - Width 0.2 0.4 0.3 -Total Square (Area) (cm) 0.08 0.24 0.06 -Tunneling Yes No No -Tunneling Position (O'clock) 6 -Tunneling Distance (cm) 0.6 -Undermining/Tunneling No No No -Circular Undermining No No No -Wound/Ulcer Outcome Not Healed Not Healed Not Healed -Ulcer Cleansing Rinsed/ Rinsed/ Not Cleansed Irrigated with Irrigated with Saline Saline -Foul Odor after Cleansing No No No -Bioengineered Tissue No No No -Bleeding Controlled with Pressure Pressure Pressure -Treatment Response Procedure Procedure Procedure Tolerated Well Tolerated Well Tolerated Well -Offloading No No No -Debridement - Subq, 1st 20sq cm Yes Yes Yes Pain Scale: 0-10 Numeric Is Patient Pain Free? Yes Yes Yes WC - Nurse 3 - General Ulcer D/C NN Start: 02/01/25 10:59 Freq: Status: Active Protocol: Activity Type Activity Date Activity User E-sign Co-sign Detail Recorded Client Recorded Date Recorded By Document 02/01/25 11:38 DS [id number] 02/01/25 11:50 DS Document 02/08/25 10:54 DS [id number] 02/08/25 10:55 DS Document 02/15/25 12:45 KW [id number] 02/15/25 12:45 KW 02/01/25 02/08/25 02/15/25 11:38 10:54 12:45 Wound Care Center Nurse 3 #1- SACRAL -Ulcer Cleansing Not Cleansed -Primary Dressing Applied Aquacel Extra, Aquacel Extra, Aquacel Extra, NonAdherent NonAdherent NonAdherent Contact Layer Contact Layer Contact Layer -Other Dressing abd pad -Primary Dressing Covered/Secured with Secured with Secured with Dry Gauze, Tape Tape Secured with Tape -Aquacel Extra 1 1 1 Pain Scale: 0-10 Numeric Is Patient Pain Free? Yes Yes Yes WC - Visit Discharge Discharge Condition Stable Stable Stable Ambulatory Status Ambulatory, Ambulatory, Ambulatory, Walker Walker Walker Transportation Private Auto Private Auto Private Auto Medication Reconcilliation completed & No provided to patient/care provider Clinical Summary of Care Provided Yes Assessment/Plan Assessment/Plan (1) Sacral decubitus ulcer, stage IV: CODE(S): L89.154 - Pressure ulcer of sacral region, stage 4 (2) Debility: CODE(S): R53.81 - Other malaise (3) History of stroke: CODE(S): Z86.73 - Personal history of transient ischemic attack (TIA), andcerebral infarction without residual deficits (4) Decubitus ulcer of sacral area: CODE(S): L89.159 - Pressure ulcer of sacral region, unspecified stage PLAN: Plan Debridement done as documented above, procedure was well-tolerated. Some improvement noted again this week. Has an appointment with plastic surgery [facility]. Continue Aquacel and change daily to twice daily depending on drainage. Cover with foam dressing. Continue offloading, adequate protein intake and other chronic management. Her questions were answered and she was advised to let us know if she had any further questions or concerns. Follow-up depending on plastic surgery recommendation. This note was generated with [employer] dictation software. It may contain incorrectwords, spelling, and punctuation that were not noted in checking the note beforesigning. 02/15/25 1342 <Electronically signed by Catarino Dominguez MD> Cosigner Signature (if applicable): CC: ~ Signed [facility] Work Phone: [phone]) 217-443006-19-2025 Progress note [facility] [address] [place] [address] Progress Note - Wound Care 02/15/25 1339 MR#: [id number] Acct: [id number] Name: DALIA LOPEZ Rep #:[id number] : 1950 74 From: Catarino santiago MD PCP: Dr. Lenin Bhatt MD Status:R EG RCR Location: History of Present Illness Date of Service: 02/15/25 Chief Complaint: Non healing sacral ulcer History of Wound: Patient is a 74 year female who presents to the wound center for evaluation of chiqui sacral ulcer and a left ischial ulcer. She was recently hospitalized for UTI/and acute kidney disease. She has a history of HTN, hyperlipidemia, seizure disorder, hypothyroidism, debility. Left ischial ulcer from pressure. The sacral ulcer is in the area of previous ulcer that healed last year. She denies fever, chills, nausea and vomiting. She is accompanied today with her son. She has home health. She sleeps on a couch. She states that she is unsure if a bed would fit into her bedroom due to it being so small. Today denies fever, chills, nausea and vomiting. Progress of Wound: No acute concerns reported at this time. Has a visit scheduled with plastic surgery on Wednesday. Objective Data Objective Data Vital Signs: Vital Signs Temp Pulse Resp BP O2 Del Method 96.9 F L 80 16 133/65 H Room Air 02/15/25 12:02 02/15/25 12:02 02/15/25 12:02/15/25 12:02/15/25 12:02 Oxygen Delivery Method Room Air Weight: 140 lb 0.002 oz Body Mass Index (BMI) 0.0 Charges/Coding Procedures Integumentary 111xxx-113xx: 45805 Maria M subq tissue 20 sq cm/< Physical Exam Const alert and no apparent distress General Appearance: cooperative and comfortable HEENT normocephalic and head/scalp atraumatic Eyes EOMs intact bilaterally Neck full ROM and supple Resp normal respiratory effort Effort and Inspection: able to speak in complete sentences Skin Wounds: wounds noted size Size: See clinical note, bed other Not entirely visualized due to location , no odor, open and surrounding erythema Neuro oriented x3, CN's II-XII intact bilaterally and moves all extremities Psych mental status grossly normal, thought process normal and cooperative Debridement Note Debridement Note Wound debrided: Sacral Type of Debridement: Excisional debridement Anesthesia Used: 5% Lidocaine Gel Depth: Down to and including healthy tissue and in the subcutaneous layer Percentage of wound debrided: 100 Instrument Used: 3mm curette Tissue Removed: Devitalized tissue Severity: Fat Layer Exposed Amount of bleeding with debridement: Mild Bleeding Controlled with: Pressure Patient tolerated procedure: Patient tolerated procedure well Post-Debridement Measurements and Additional Note: Post-Debridement Measurements/Treatment - Nurse 1 - General Ulcer Assessment Start: 02/01/25 10:59 Freq: Status: Active Protocol: LAURIE Activity Type Activity Date Activity User E-sign Co-sign Detail Recorded Client Recorded Date Recorded By Document 02/01/25 11:00 MT [id number] 02/01/25 11:19 MT Document 02/08/25 09:56 DS [id number] 02/08/25 09:57 DS Document 02/15/25 12:02 KW [id number] 02/15/25 12:04 KW 02/01/25 02/08/25 02/15/25 11:00 09:56 12:02 - Today's Visit Information Type of service Follow-up Visit Follow-up Visit Follow-up Visit (Physician/[employer] (Physician/[employer] (Physician/[employer] ) ) ) Arrival Mode Ambulatory, Ambulatory, Ambulatory, Walker Walker Walker Accompanied by self Patient Identification Verified (Name & Yes Yes Yes ) Patient Requires Transmission-Based No Precautions Safety Precautions Fall Prevention Fall Prevention Height and Weight Body Mass Index (BMI) 0.0 0.0 0.0 BMI Classification Underweight Underweight Underweight Vital Signs Temperature (97.8 F-99.1 F) 97 F L 98.9 F 96.9 F L Temperature Source Temporal Temporal Temporal Pulse Rate (60-100) 78 84 80 Pulse Location Monitor Monitor Monitor Respiratory Rate (12-18) 18 18 16 Respiratory rate source Observation Observation Observation Oxygen Delivery Method Room Air Room Air Room Air Blood Pressure (90/60-120/80) 110/55 L 114/54 L 133/65 H Blood Pressure Mean (mm Hg) 73 74 87 Source Manual Monitor Monitor Position Sitting Sitting Sitting Blood Pressure Location Right Arm Left Arm Left Arm History Since Last Visit- (Skip if this is Patient's initial visit) Have you changed medications since your No No last visit? Any new allergies or adverse reactions No No Had a fall/change in ADL's that may No No increase risk of falls Signs or symptoms of abuse and/or No No neglect since last visit Have you been in the hospital since your No No last visit? Has dressing in place as prescribed Yes Yes Yes Has compression in place as prescribed Yes N/A N/A Has offloadiing in place as prescribed Yes N/A N/A Experienced any changes in pain level or Yes No No management Left Footwear Regular Shoe Regular Shoe Regular Shoe Right Footwear Regular Shoe Regular Shoe Regular Shoe Pain Scale: 0-10 Numeric Is Patient Pain Free? Yes Yes Yes - Nurse 1 - General Ulcer Measurement Start: 02/01/25 10:59 Freq: Status: Active Protocol: Activity Type Activity Date Activity User E-sign Co-sign Detail Recorded Client Recorded Date Recorded By Document 02/01/25 11:00 MT [id number] 02/01/25 11:19 MT Document 02/08/25 10:02 DS [id number] 02/08/25 10:03 DS Document 02/15/25 12:02 KW [id number] 02/15/25 12:04 KW 02/01/25 02/08/25 02/15/25 11:00 10:02 12:02 Wound Center Nurse 1 #1- SACRAL -Current Size (cm) - Length 0.5 0.6 0.5 -Current Size (cm) - Width 0.3 0.4 0.2 -Current Size (cm) - Depth 0.2 0.5 0.5 -Total Square Cm 0.15 0.24 0.10 -Photo Taken No -Tunneling No -Undermining/Tunneling No -Circular Undermining No -Exudate Amt Small Small -Exudate Type Serosanguineous Serosanguineous -Wound Margin Distinct, Distinct, Distinct, Outline Outline Outline Attached Attached Attached -Granulation Amt Large (67-100%) Large (67-100%) -Granulation Quality Pale,[place] -Necrosis Amt Small (1-33%) -Necrotic Tissue Type Adherent Slough -Texture (Tsering-wound Skin Appearance) Assessed Assessed Assessed -Moisture (Tsering-wound Skin Appearance) Assessed Assessed Assessed -Color (Tsering-wound Skin Appearance) Assessed Assessed Assessed -Temperature (Tsering-wound Skin No Abnormality No Abnormality No Abnormality Appearance) (Pt Warm) (Pt Warm) (Pt Warm) -Tenderness on Palpation (Tsering-wound No No No Skin Appearance) -Ulcer Cleansing Soap and Water Soap and Water Rinsed/ Irrigated with Saline -Foul Odor after Cleansing No No No -Anesthetic Used 5% Lidocaine 5% Lidocaine 5% Lidocaine Gel Gel Gel Lower Limb Edema Present NA WC - Nurse 2 - General Ulcer CM Notes Start: 02/01/25 10:59 Freq: Status: Active Protocol: Activity Type Activity Date Activity User E-sign Co-sign Detail Recorded Client Recorded Date Recorded By Document 02/01/25 11:31 [id number] 02/01/25 11:33 Document 02/08/25 10:26 [id number] 02/08/25 10:36 Document 02/15/25 12:30 [id number] 02/15/25 12:33 02/01/25 02/08/25 02/15/25 11:31 10:26 12:30 Wound Center Nurse 2 #1- SACRAL -Time 11: 10:27 12:30 -Correct Patient Yes Yes Yes -Correct Side, Site, Position Yes Yes Yes -Correct Procedure Yes Yes Yes -Procedure Performed Yes Yes Yes -Type of Procedure Debridement Debridement Debridement -Clinical Debridement Subcutaneous Subcutaneous Subcutaneous -Tissue Removed Subcutaneous Subcutaneous Subcutaneous -Post Debridement (cm) - Length 0.4 0.6 0.2 -Post Debridement (cm) - Width 0.2 0.4 0.3 -Post Debridement (cm) - Depth 0.6 0.6 0.5 -Total Square (Post) (cm) 0.08 0.24 0.06 -Area of Debridement (cm) - Length 0.4 0.6 0.2 -Area of Debridement (cm) - Width 0.2 0.4 0.3 -Total Square (Area) (cm) 0.08 0.24 0.06 -Tunneling Yes No No -Tunneling Position (O'clock) 6 -Tunneling Distance (cm) 0.6 -Undermining/Tunneling No No No -Circular Undermining No No No -Wound/Ulcer Outcome Not Healed Not Healed Not Healed -Ulcer Cleansing Rinsed/ Rinsed/ Not Cleansed Irrigated with Irrigated with Saline Saline -Foul Odor after Cleansing No No No -Bioengineered Tissue No No No -Bleeding Controlled with Pressure Pressure Pressure -Treatment Response Procedure Procedure Procedure Tolerated Well Tolerated Well Tolerated Well -Offloading No No No -Debridement - Subq, 1st 20sq cm Yes Yes Yes Pain Scale: 0-10 Numeric Is Patient Pain Free? Yes Yes Yes WC - Nurse 3 - General Ulcer D/C NN Start: 02/01/25 10:59 Freq: Status: Active Protocol: Activity Type Activity Date Activity User E-sign Co-sign Detail Recorded Client Recorded Date Recorded By Document 02/01/25 11:38 DS [id number] 02/01/25 11:50 DS Document 02/08/25 10:54 DS [id number] 02/08/25 10:55 DS Document 02/15/25 12:45 KW [id number] 02/15/25 12:45 KW 02/01/25 02/08/25 02/15/25 11:38 10:54 12:45 Wound Care Center Nurse 3 #1- SACRAL -Ulcer Cleansing Not Cleansed -Primary Dressing Applied Aquacel Extra, Aquacel Extra, Aquacel Extra, NonAdherent NonAdherent NonAdherent Contact Layer Contact Layer Contact Layer -Other Dressing abd pad -Primary Dressing Covered/Secured with Secured with Secured with Dry Gauze, Tape Tape Secured with Tape -Aquacel Extra 1 1 1 Pain Scale: 0-10 Numeric Is Patient Pain Free? Yes Yes Yes WC - Visit Discharge Discharge Condition Stable Stable Stable Ambulatory Status Ambulatory, Ambulatory, Ambulatory, Walker Walker Walker Transportation Private Auto Private Auto Private Auto Medication Reconcilliation completed & No provided to patient/care provider Clinical Summary of Care Provided Yes Assessment/Plan Assessment/Plan (1) Sacral decubitus ulcer, stage IV: CODE(S): L89.154 - Pressure ulcer of sacral region, stage 4 (2) Debility: CODE(S): R53.81 - Other malaise (3) History of stroke: CODE(S): Z86.73 - Personal history of transient ischemic attack (TIA), andcerebral infarction without residual deficits (4) Decubitus ulcer of sacral area: CODE(S): L89.159 - Pressure ulcer of sacral region, unspecified stage PLAN: Plan Debridement done as documented above, procedure was well-tolerated. Some improvement noted again this week. Has an appointment with plastic surgery [facility]. Continue Aquacel and change daily to twice daily depending on drainage. Cover with foam dressing. Continue offloading, adequate protein intake and other chronic management. Her questions were answered and she was advised to let us know if she had any further questions or concerns. Follow-up depending on plastic surgery recommendation. This note was generated with TranslationExchangeation software. It may contain incorrectwords, spelling, and punctuation that were not noted in checking the note beforesigning. 02/15/25 1342 Cosigner Signature (if applicable): CC: ~ Signed [facility]06-05-2025 Progress note Author Catarino Dominguez [facility] Note Date/Time February 01, 2025 12:[address] [facility] [address] [place] [address] Progress Note - Wound Care 02/01/25 1231 MR#: [id number] Acct: [id number] Name: DALIA LOPEZ Rep #:[id number] : 1950 74 From: Catarino santiago MD PCP: Dr. Lenin Bhatt MD Status:R EG RCR Location: History of Present Illness Date of Service: 02/01/25 Chief Complaint: Non healing sacral ulcer History of Wound: Patient is a 74 year female who presents to the wound center for evaluation of an a sacral ulcer and a left ischial ulcer. She was recently hospitalized for UTI/and acute kidney disease. She has a history of HTN, hyperlipidemia, seizure disorder, hypothyroidism, debility. Left ischial ulcer from pressure. The sacral ulcer is in the area of previous ulcer that healed last year. She denies fever, chills, nausea and vomiting. She is accompanied today with her son. She has home health. She sleeps on a couch. She states that she is unsure if a bed would fit into her bedroom due to it being so small. Today denies fever, chills, nausea and vomiting. Progress of Wound: No acute concerns at this time. No fever or feeling of unwell. She states thatdressing changes have been done as recommended. Objective Data Objective Data Vital Signs: Vital Signs Temp Pulse Resp BP O2 Del Method 97 F L 78 18 110/55 L Room Air 02/01/25 11:02/01/25 11:00 02/01/25 11:02/01/25 11:02/01/25 11:00 Oxygen Delivery Method Room Air Weight: 140 lb 0.002 oz Body Mass Index (BMI) 0.0 Charges/Coding Procedures Integumentary 111xxx-113xx: 42831 Maria M subq tissue 20 sq cm/< Physical Exam Const alert and no apparent distress General Appearance: cooperative and comfortable HEENT normocephalic and head/scalp atraumatic Eyes EOMs intact bilaterally Neck full ROM and supple Resp normal respiratory effort Effort and Inspection: able to speak in complete sentences Skin Wounds: wounds noted size Size: See clinical note, bed other Not entirely visualized due to location , margins well approximated, no odor, open and surrounding erythema Neuro oriented x3, CN's II-XII intact bilaterally and moves all extremities Psych mental status grossly normal, thought process normal and cooperative Debridement Note Debridement Note Wound debrided: Sacrum Type of Debridement: Excisional debridement Anesthesia Used: 5% Lidocaine Gel Depth: Down to and including healthy tissue and in the subcutaneous layer Percentage of wound debrided: 100 Instrument Used: 3mm curette Tissue Removed: Devitalized tissue Severity: Fat Layer Exposed Amount of bleeding with debridement: Mild Bleeding Controlled with: Pressure Patient tolerated procedure: Patient tolerated procedure well Post-Debridement Measurements and Additional Note: Post-Debridement Measurements/Treatment - Nurse 1 - General Ulcer Assessment Start: 02/01/25 10:59 Freq: Status: Active Protocol: LAURIE Activity Type Activity Date Activity User E-sign Co-sign Detail Recorded Client Recorded Date Recorded By Document 02/01/25 11:00 NC [id number] 02/01/25 11:19 NC 02/01/25 11:00 - Today's Visit Information Type of service Follow-up Visit (Physician/[employer] ) Arrival Mode Ambulatory, Walker Accompanied by self Patient Identification Verified (Name & Yes ) Safety Precautions Fall Prevention Height and Weight Body Mass Index (BMI) 0.0 BMI Classification Underweight Vital Signs Temperature (97.8 F-99.1 F) 97 F L Temperature Source Temporal Pulse Rate (60-100) 78 Pulse Location Monitor Respiratory Rate (12-18) 18 Respiratory rate source Observation Oxygen Delivery Method Room Air Blood Pressure (90/60-120/80) 110/55 L Blood Pressure Mean (mm Hg) 73 Source Manual Position Sitting Blood Pressure Location Right Arm History Since Last Visit- (Skip if this is Patient's initial visit) Has dressing in place as prescribed Yes Has compression in place as prescribed Yes Has offloadiing in place as prescribed Yes Experienced any changes in pain level or Yes management Left Footwear Regular Shoe Right Footwear Regular Shoe Pain Scale: 0-10 Numeric Is Patient Pain Free? Yes - Nurse 1 - General Ulcer Measurement Start: 02/01/25 10:59 Freq: Status: Active Protocol: Activity Type Activity Date Activity User E-sign Co-sign Detail Recorded Client Recorded Date Recorded By Document 02/01/25 11:00 NC [id number] 02/01/25 11:19 NC 02/01/25 11:00 Wound Center Nurse 1 #1- SACRAL -Current Size (cm) - Length 0.5 -Current Size (cm) - Width 0.3 -Current Size (cm) - Depth 0.2 -Total Square Cm 0.15 -Exudate Amt Small -Exudate Type Serosanguineous -Wound Margin Distinct, Outline Attached -Granulation Amt Large (67-100%) -Granulation Quality Pale,[place] -Necrosis Amt Small (1-33%) -Necrotic Tissue Type Adherent Slough -Texture (Tsering-wound Skin Appearance) Assessed -Moisture (Tsering-wound Skin Appearance) Assessed -Color (Tsering-wound Skin Appearance) Assessed -Temperature (Tsering-wound Skin No Abnormality Appearance) (Pt Warm) -Tenderness on Palpation (Tsering-wound No Skin Appearance) -Ulcer Cleansing Soap and Water -Foul Odor after Cleansing No -Anesthetic Used 5% Lidocaine Gel Lower Limb Edema Present NA WC - Nurse 2 - General Ulcer CM Notes Start: 02/01/25 10:59 Freq: Status: Active Protocol: Activity Type Activity Date Activity User E-sign Co-sign Detail Recorded Client Recorded Date Recorded By Document 02/01/25 11:31 [id number] 02/01/25 11:33 02/01/25 11:31 Wound Center Nurse 2 #1- SACRAL -Time 11:31 -Correct Patient Yes -Correct Side, Site, Position Yes -Correct Procedure Yes -Procedure Performed Yes -Type of Procedure Debridement -Clinical Debridement Subcutaneous -Tissue Removed Subcutaneous -Post Debridement (cm) - Length 0.4 -Post Debridement (cm) - Width 0.2 -Post Debridement (cm) - Depth 0.6 -Total Square (Post) (cm) 0.08 -Area of Debridement (cm) - Length 0.4 -Area of Debridement (cm) - Width 0.2 -Total Square (Area) (cm) 0.08 -Tunneling Yes -Tunneling Position (O'clock) 6 -Tunneling Distance (cm) 0.6 -Undermining/Tunneling No -Circular Undermining No -Wound/Ulcer Outcome Not Healed -Ulcer Cleansing Rinsed/ Irrigated with Saline -Foul Odor after Cleansing No -Bioengineered Tissue No -Bleeding Controlled with Pressure -Treatment Response Procedure Tolerated Well -Offloading No -Debridement - Subq, 1st 20sq cm Yes Pain Scale: 0-10 Numeric Is Patient Pain Free? Yes - Nurse 3 - General Ulcer D/C NN Start: 02/01/25 10:59 Freq: Status: Active Protocol: Activity Type Activity Date Activity User E-sign Co-sign Detail Recorded Client Recorded Date Recorded By Document 02/01/25 11:38 DS [id number] 02/01/25 11:50 DS 02/01/25 11:38 Wound Care Center Nurse 3 #1- SACRAL -Ulcer Cleansing Not Cleansed -Primary Dressing Applied Aquacel Extra, NonAdherent Contact Layer -Other Dressing abd pad -Primary Dressing Covered/Secured with Secured with Tape -Aquacel Extra 1 Pain Scale: 0-10 Numeric Is Patient Pain Free? Yes WC - Visit Discharge Discharge Condition Stable Ambulatory Status Ambulatory, Walker Transportation Private Auto Assessment/Plan Assessment/Plan (1) Sacral decubitus ulcer, stage IV: CODE(S): L89.154 - Pressure ulcer of sacral region, stage 4 (2) Debility: CODE(S): R53.81 - Other malaise (3) History of stroke: CODE(S): Z86.73 - Personal history of transient ischemic attack (TIA), andcerebral infarction without residual deficits (4) Decubitus ulcer of sacral area: CODE(S): L89.159 - Pressure ulcer of sacral region, unspecified stage PLAN: Plan Debridement done as documented above, procedure was well-tolerated. Some improvement in depth. No pain or drainage reported by the patient. Continue Aquacel and change daily to twice daily depending on drainage. Cover with foamdressing. Continue offloading, adequate protein intake and other chronic management. Her questions were answered and she was advised to let us know if she had any further questions or concerns. Follow-up 1 week or sooner if needed. This note was generated with TranslationExchangeation software. It may contain incorrectwords, spelling, and punctuation that were not noted in checking the note beforesigning. 02/01/25 3602 <Electronically signed by Catarino Dominguez MD> Cosigner Signature (if applicable): CC: ~ Signed [facility] Work Phone: 1(340) 457-902906-05-[address] [facility] [address] [place] [address] Progress Note - Wound Care 02/01/25 1231 MR#: [id number] Acct: [id number] Name: DALIA LOPEZ Rep #:[id number] : 1950 74 From: Catarino santiago MD PCP: Dr. Lenin Bhatt MD Status:R EG RCR Location: History of Present Illness Date of Service: 02/01/25 Chief Complaint: Non healing sacral ulcer History of Wound: Patient is a 74 year female who presents to the wound center for evaluation of chiqui sacral ulcer and a left ischial ulcer. She was recently hospitalized for UTI/and acute kidney disease. She has a history of HTN, hyperlipidemia, seizure disorder, hypothyroidism, debility. Left ischial ulcer from pressure. The sacral ulcer is in the area of previous ulcer that healed last year. She denies fever, chills, nausea and vomiting. She is accompanied today with her son. She has home health. She sleeps on a couch. She states that she is unsure if a bed would fit into her bedroom due to it being so small. Today denies fever, chills, nausea and vomiting. Progress of Wound: No acute concerns at this time. No fever or feeling of unwell. She states thatdressing changes havebeen done as recommended. Objective Data Objective Data Vital Signs: Vital Signs Temp Pulse Resp BP O2 Del Method 97 F L 78 18 110/55 L Room Air 02/01/25 11:02/01/25 11:02/01/25 11:02/01/25 11:02/01/25 11:00 Oxygen Delivery Method Room Air Weight: 140 lb 0.002 oz Body Mass Index (BMI) 0.0 Charges/Coding Procedures Integumentary 111xxx-113xx: 58403 Maria M subq tissue 20 sq cm/< Physical Exam Const alert and no apparent distress General Appearance: cooperative and comfortable HEENT normocephalic and head/scalp atraumatic Eyes EOMs intact bilaterally Neck full ROM and supple Resp normal respiratory effort Effort and Inspection: able to speak in complete sentences Skin Wounds: wounds noted size Size: See clinical note, bed other Not entirely visualized due to location , margins well approximated, no odor, open and surrounding erythema Neuro oriented x3, CN's II-XII intact bilaterally and moves all extremities Psych mental status grossly normal, thought process normal and cooperative Debridement Note Debridement Note Wound debrided: Sacrum Type of Debridement: Excisional debridement Anesthesia Used: 5% Lidocaine Gel Depth: Down to and including healthy tissue and in the subcutaneous layer Percentage of wound debrided: 100 Instrument Used: 3mm curette Tissue Removed: Devitalized tissue Severity: Fat Layer Exposed Amount of bleeding with debridement: Mild Bleeding Controlled with: Pressure Patient tolerated procedure: Patient tolerated procedure well Post-Debridement Measurements and Additional Note: Post-Debridement Measurements/Treatment - Nurse 1 - General Ulcer Assessment Start: 02/01/25 10:59 Freq: Status: Active Protocol: LAURIE Activity Type Activity Date Activity User E-sign Co-sign Detail Recorded Client Recorded Date Recorded By Document 02/01/25 11:00 NC [id number] 02/01/25 11:19 NC 02/01/25 11:00 - Today's Visit Information Type of service Follow-up Visit (Physician/[employer] ) Arrival Mode Ambulatory, Walker Accompanied by self Patient Identification Verified (Name & Yes ) Safety Precautions Fall Prevention Height and Weight Body Mass Index (BMI) 0.0 BMI Classification Underweight Vital Signs Temperature (97.8 F-99.1 F) 97 F L Temperature Source Temporal Pulse Rate (60-100) 78 Pulse Location Monitor Respiratory Rate (12-18) 18 Respiratory rate source Observation Oxygen Delivery Method Room Air Blood Pressure (90/60-120/80) 110/55 L Blood Pressure Mean (mm Hg) 73 Source Manual Position Sitting Blood Pressure Location Right Arm History Since Last Visit- (Skip if this is Patient's initial visit) Has dressing in place as prescribed Yes Has compression in place as prescribed Yes Has offloadiing in place as prescribed Yes Experienced any changes in pain level or Yes management Left Footwear Regular Shoe Right Footwear Regular Shoe Pain Scale: 0-10 Numeric Is Patient Pain Free? Yes [facility] Nurse 1 - General Ulcer Measurement Start: 02/01/25 10:59 Freq: Status: Active Protocol: Activity Type Activity Date Activity User E-sign Co-sign Detail Recorded Client Recorded Date Recorded By Document 02/01/25 11:00 NC [id number] 02/01/25 11:19 NC 02/01/25 11:00 Wound Center Nurse 1 #1- SACRAL -Current Size (cm) - Length 0.5 -Current Size (cm) - Width 0.3 -Current Size (cm) - Depth 0.2 -Total Square Cm 0.15 -Exudate Amt Small -Exudate Type Serosanguineous -Wound Margin Distinct, Outline Attached -Granulation Amt Large (67-100%) -Granulation Quality Pale,[place] -Necrosis Amt Small (1-33%) -Necrotic Tissue Type Adherent Slough -Texture (Tsering-wound Skin Appearance) Assessed -Moisture (Tsering-wound Skin Appearance) Assessed -Color (Tsering-wound Skin Appearance) Assessed -Temperature (Tsering-wound Skin No Abnormality Appearance) (Pt Warm) -Tenderness on Palpation (Tsering-wound No Skin Appearance) -Ulcer Cleansing Soap and Water -Foul Odor after Cleansing No -Anesthetic Used 5% Lidocaine Gel Lower Limb Edema Present NA WC - Nurse 2 - General Ulcer CM Notes Start: 02/01/25 10:59 Freq: Status: Active Protocol: Activity Type Activity Date Activity User E-sign Co-sign Detail Recorded Client Recorded Date Recorded By Document 02/01/25 11:31 [id number] 02/01/25 11:33 02/01/25 11:31 Wound Center Nurse 2 #1- SACRAL -Time 11:31 -Correct Patient Yes -Correct Side, Site, Position Yes -Correct Procedure Yes -Procedure Performed Yes -Type of Procedure Debridement -Clinical Debridement Subcutaneous -Tissue Removed Subcutaneous -Post Debridement (cm) - Length 0.4 -Post Debridement (cm) - Width 0.2 -Post Debridement (cm) - Depth 0.6 -Total Square (Post) (cm) 0.08 -Area of Debridement (cm) - Length 0.4 -Area of Debridement (cm) - Width 0.2 -Total Square (Area) (cm) 0.08 -Tunneling Yes -Tunneling Position (O'clock) 6 -Tunneling Distance (cm) 0.6 -Undermining/Tunneling No -Circular Undermining No -Wound/Ulcer Outcome Not Healed -Ulcer Cleansing Rinsed/ Irrigated with Saline -Foul Odor after Cleansing No -Bioengineered Tissue No -Bleeding Controlled with Pressure -Treatment Response Procedure Tolerated Well -Offloading No -Debridement - Subq, 1st 20sq cm Yes Pain Scale: 0-10 Numeric Is Patient Pain Free? Yes - Nurse 3 - General Ulcer D/C NN Start: 02/01/25 10:59 Freq: Status: Active Protocol: Activity Type Activity Date Activity User E-sign Co-sign Detail Recorded Client Recorded Date Recorded By Document 02/01/25 11:38 DS [id number] 02/01/25 11:50 DS 02/01/25 11:38 Wound Care Center Nurse 3 #1- SACRAL -Ulcer Cleansing Not Cleansed -Primary Dressing Applied Aquacel Extra, NonAdherent Contact Layer -Other Dressing abd pad -Primary Dressing Covered/Secured with Secured with Tape -Aquacel Extra 1 Pain Scale: 0-10 Numeric Is Patient Pain Free? Yes WC - Visit Discharge Discharge Condition Stable Ambulatory Status Ambulatory, Walker Transportation Private Auto Assessment/Plan Assessment/Plan (1) Sacral decubitus ulcer, stage IV: CODE(S): L89.154 - Pressure ulcer of sacral region, stage 4 (2) Debility: CODE(S): R53.81 - Other malaise (3) History of stroke: CODE(S): Z86.73 - Personal history of transient ischemic attack (TIA), andcerebral infarction without residual deficits (4) Decubitus ulcer of sacral area: CODE(S): L89.159 - Pressure ulcer of sacral region, unspecified stage PLAN: Plan Debridement done as documented above, procedure was well-tolerated. Some improvement in depth. No pain or drainage reported by the patient. Continue Aquacel and change daily to twice daily depending on drainage. Cover with foamdressing. Continue offloading, adequate protein intake and other chronic management. Her questions were answered and she was advised to let us know if she had any further questions or concerns. Follow-up 1 week or sooner if needed. This note was generated with [employer] dictation software. It may contain incorrectwords, spelling, and punctuation that were not noted in checking the note beforesigning. 02/01/25 1234 Cosigner Signature (if applicable): CC: ~ Signed [facility]05-29-2025 Progress note Author Catarino Dominguez [facility] Note Date/Time January 25, 2025 4:46[facility] [address] [place] [address] Progress Note - Wound Care 01/25/25 1059 MR#: [id number] Acct: [id number] Name: DALIA LOPEZ Rep #:[id number] : 1950 74 From: Catarino santiago MD PCP: Dr. Lenin Bhatt MD Status:R EG RCR Location: History of Present Illness Date of Service: 01/25/25 Chief Complaint: Non healing sacral ulcer History of Wound: Patient is a 74 year female who presents to the wound center for evaluation of an a sacral ulcer and a left ischial ulcer. She was recently hospitalized for UTI/and acute kidney disease. She has a history of HTN, hyperlipidemia, seizure disorder, hypothyroidism, debility. Left ischial ulcer from pressure. The sacral ulcer is in the area of previous ulcer that healed last year. She denies fever, chills, nausea and vomiting. She is accompanied today with her son. She has home health. She sleeps on a couch. She states that she is unsure if a bed would fit into her bedroom due to it being so small. Today denies fever, chills, nausea and vomiting. Progress of Wound: No new concerns reported at this time. Some improvement noted in depth. Objective Data Objective Data Vital Signs: Vital Signs Temp Pulse Resp BP O2 Del Method 97.3 F L 80 18 136/68 H Room Air 01/25/25 10:08 01/25/25 10:08 01/25/25 10:08 01/25/25 10:08 01/25/25 10:08 Oxygen Delivery Method Room Air Weight: 140 lb 0.002 oz Body Mass Index (BMI) 0.0 Charges/Coding Procedures Integumentary 111xxx-113xx: 34062 Maria M subq tissue 20 sq cm/< Physical Exam Const alert and no apparent distress General Appearance: cooperative and comfortable HEENT normocephalic and head/scalp atraumatic Eyes EOMs intact bilaterally Neck full ROM and supple Resp normal respiratory effort Effort and Inspection: able to speak in complete sentences Skin Wounds: wounds noted size Size: See clinical note, bed other Not entirely visualized due to location , margins well approximated, no odor, open and surrounding erythema Neuro oriented x3, CN's II-XII intact bilaterally and moves all extremities Psych mental status grossly normal, thought process normal and cooperative Debridement Note Debridement Note Wound debrided: Sacral Type of Debridement: Excisional debridement Anesthesia Used: 5% Lidocaine Gel Depth: Down to and including healthy tissue and in the subcutaneous layer Percentage of wound debrided: 100 Instrument Used: 3mm curette Tissue Removed: Devitalized tissue Severity: Fat Layer Exposed Amount of bleeding with debridement: Mild Bleeding Controlled with: Pressure Patient tolerated procedure: Patient tolerated procedure well Post-Debridement Measurements and Additional Note: Post-Debridement Measurements/Treatment - Nurse 1 - General Ulcer Assessment Start: 12/28/24 11:20 Freq: Status: Active Protocol: [email or web address] Activity Type Activity Date Activity User E-sign Co-sign Detail Recorded Client Recorded Date Recorded By Document 12/28/24 11:20 RB [id number] 12/28/24 11:22 RB Document 01/18/25 11:38 RB [id number] 01/18/25 11:39 RB Document 01/25/25 10:08 DS [id number] 01/25/25 10:15 DS 12/28/24 01/18/25 01/25/25 11:20 11:38 10:08 - Today's Visit Information Type of service Follow-up Visit Follow-up Visit Follow-up Visit (Physician/[employer]ION [employer]KER HAND (Physician/[employer]IECE EXPANSION MAKER HAND (Physician/[employer]CE EXP[employer]ION MAKER HAND ) ) ) Arrival Mode Ambulatory Ambulatory, Ambulatory, Walker Walker Transfer Assistance None Manual Patient Identification Verified (Name & Yes Yes Yes ) Patient Requires Transmission-Based No No No Precautions Safety Precautions Fall Prevention Height and Weight Body Mass Index (BMI) 0.0 0.0 0.0 BMI Classification Underweight Underweight Underweight Vital Signs Temperature (97.8 F-99.1 F) 96.5 F L 96.5 F L 97.3 F L Temperature Source Temporal Temporal Temporal Pulse Rate (60-100) 80 88 80 Pulse Location Monitor Monitor Monitor Respiratory Rate (12-18) 18 18 18 Respiratory rate source Observation Observation Observation Oxygen Delivery Method Room Air Blood Pressure (90/60-120/80) 127/59 H 118/55 L 136/68 H Blood Pressure Mean (mm Hg) 81 76 90 Source Monitor Monitor Monitor Position Semi-Fowlers Sitting Semi-Fowlers Blood Pressure Location Left Arm Left Arm Right Arm History Since Last Visit- (Skip if this is Patient's initial visit) Have you changed medications since your No No No last visit? Any new allergies or adverse reactions No No No Had a fall/change in ADL's that may No No No increase risk of falls Signs or symptoms of abuse and/or No No No neglect since last visit Have you been in the hospital since your No No No last visit? Has dressing in place as prescribed Yes Yes Yes Has compression in place as prescribed N/A N/A N/A Has offloadiing in place as prescribed N/A N/A N/A Experienced any changes in pain level or No No No management Left Footwear Regular Shoe Right Footwear Regular Shoe Pain Scale: 0-10 Numeric Is Patient Pain Free? Yes Yes Yes WC - Nurse 1 - General Ulcer Measurement Start: 12/28/24 11:20 Freq: Status: Active Protocol: Activity Type Activity Date Activity User E-sign Co-sign Detail Recorded Client Recorded Date Recorded By Document 12/28/24 11:20 RB [id number] 12/28/24 11:22 RB Document 01/18/25 11:38 RB [id number] 01/18/25 11:39 RB Document 01/25/25 10:08 DS [id number] 01/25/25 10:15 DS 12/28/24 01/18/25 01/25/25 11:20 11:38 10:08 Wound Center Nurse 1 #1- SACRAL -Combined with other wound No No -Current Size (cm) - Length 0.4 0.3 0.4 -Current Size (cm) - Width 0.5 0.3 0.4 -Current Size (cm) - Depth 1.3 0.7 1.0 -Total Square Cm 0.20 0.09 0.16 -Photo Taken Yes Yes No -Tunneling No No No -Undermining/Tunneling No No No -Circular Undermining No No No -Exudate Amt Medium Medium None Present -Exudate Type Serosanguineous Serosanguineous -Wound Margin Thickened & Thickened & Distinct, Rolled Under Rolled Under Outline Attached -Granulation Amt Medium (34-66%) Medium (34-66%) -Granulation Quality [place] -Slough/Fibrin Yes Yes -Necrosis Amt Small (1-33%) Medium (34-66%) -Necrotic Tissue Type Adherent Slough Adherent Slough -Structure Exposed N/A N/A -Texture (Tsering-wound Skin Appearance) Assessed, Assessed, Assessed Scarring Scarring -Moisture (Tsering-wound Skin Appearance) Assessed Assessed Assessed -Color (Tsering-wound Skin Appearance) Assessed Assessed Assessed -Temperature (Tsering-wound Skin No Abnormality No Abnormality No Abnormality Appearance) (Pt Warm) (Pt Warm) (Pt Warm) -Tenderness on Palpation (Tsering-wound No No No Skin Appearance) -Ulcer Cleansing Wound Cleanser Wound Cleanser Soap and Water -Foul Odor after Cleansing No No No -Anesthetic Used 5% Lidocaine 5% Lidocaine 5% Lidocaine Gel Gel Gel WC - Nurse 2 - General Ulcer CM Notes Start: 12/28/24 11:20 Freq: Status: Active Protocol: Activity Type Activity Date Activity User E-sign Co-sign Detail Recorded Client Recorded Date Recorded By Document 12/28/24 11:32 [id number] 12/28/24 11:36 Document 01/18/25 11:46 [id number] 01/18/25 11:50 Document 01/25/25 10:22 [id number] 01/25/25 10:25 12/28/24 01/18/25 01/25/25 11:32 11:46 10:22 Wound Center Nurse 2 #1- SACRAL -Time 11:32 11:46 10:22 -Correct Patient Yes Yes Yes -Correct Side, Site, Position Yes Yes Yes -Correct Procedure Yes Yes Yes -Procedure Performed Yes Yes Yes -Type of Procedure Debridement Debridement Debridement -Clinical Debridement Subcutaneous Subcutaneous Subcutaneous -Tissue Removed Subcutaneous Subcutaneous Subcutaneous -Post Debridement (cm) - Length 0.4 0.4 0.4 -Post Debridement (cm) - Width 0.4 0.3 0.3 -Post Debridement (cm) - Depth 0.8 1.1 0.6 -Total Square (Post) (cm) 0.16 0.12 0.12 -Area of Debridement (cm) - Length 0.4 0.4 0.4 -Area of Debridement (cm) - Width 0.4 0.3 0.3 -Total Square (Area) (cm) 0.16 0.12 0.12 -Tunneling No No No -Undermining/Tunneling No No No -Circular Undermining No No No -Wound/Ulcer Outcome Not Healed Not Healed Not Healed -Ulcer Cleansing Rinsed/ Rinsed/ Rinsed/ Irrigated with Irrigated with Irrigated with Saline Saline Saline -Foul Odor after Cleansing No No No -Bioengineered Tissue No No No -Bleeding Controlled with Pressure Pressure Pressure -Treatment Response Procedure Procedure Procedure Tolerated Well Tolerated Well Tolerated Well -Offloading No No No -Debridement - Subq, 1st 20sq cm Yes Yes Yes Pain Scale: 0-10 Numeric Is Patient Pain Free? Yes Yes Yes - Nurse 3 - General Ulcer D/C NN Start: 12/28/24 11:20 Freq: Status: Active Protocol: Activity Type Activity Date Activity User E-sign Co-sign Detail Recorded Client Recorded Date Recorded By Document 12/28/24 11:51 CP [id number] 12/28/24 11:52 CP Document 01/18/25 12:01 RB [id number] 01/18/25 12:01 RB Document 01/25/25 10:33 DS [id number] 01/25/25 10:41 DS 12/28/24 01/18/25 01/25/25 11:51 12:01 10:33 Wound Care Center Nurse 3 #1- SACRAL -Ulcer Cleansing Rinsed/ Rinsed/ Irrigated with Irrigated with Saline Saline -Primary Dressing Applied Aquacel Extra, Aquacel Extra, Aquacel Extra, Silicone Border NonAdherent NonAdherent Foam 4x4 Contact Layer, Contact Layer Silicone Border Foam 4x4 -Other Dressing abd -Primary Dressing Covered/Secured with Secured with Tape -Aquacel Extra 1 1 1 -Silicone Border Foam 4x4 1 1 Treatment Response Procedure Tolerated Well Pain Scale: 0-10 Numeric Is Patient Pain Free? Yes Yes Yes - Visit Discharge Discharge Condition Stable Stable Stable Ambulatory Status Ambulatory, Ambulatory, Ambulatory, Walker Walker Walker Transportation Private Auto Private Auto Medication Reconcilliation completed & No provided to patient/care provider Clinical Summary of Care Provided Yes Yes Assessment/Plan Assessment/Plan (1) Sacral decubitus ulcer, stage IV: CODE(S): L89.154 - Pressure ulcer of sacral region, stage 4 (2) Debility: CODE(S): R53.81 - Other malaise (3) History of stroke: CODE(S): Z86.73 - Personal history of transient ischemic attack (TIA), andcerebral infarction without residual deficits (4) Decubitus ulcer of sacral area: CODE(S): L89.159 - Pressure ulcer of sacral region, unspecified stage PLAN: Plan Debridement done as documented above, procedure was well-tolerated. Some improvement in depth. No pain or drainage reported by the patient. Continue Aquacel and change daily to twice daily depending on drainage. Cover with foamdressing. Continue offloading, adequate protein intake and other chronic management. Her questions were answered and she was advised to let us know if she had any further questions or concerns. Follow-up 1 week or sooner if needed. This note was generated with [employer] dictation software. It may contain incorrectwords, spelling, and punctuation that were not noted in checking the note beforesigning. 01/25/25 1646 <Electronically signed by Catarino Dominguez MD> Cosigner Signature (if applicable): CC: ~ Signed [facility] Work Phone: [phone] [facility] [address] [place] [address] Progress Note - Wound Care 01/25/25 1059 MR#: [id number] Acct: [id number] Name: DALIA LOPEZ Rep #:[id number] : 1950 74 From: Catarino santiago MD PCP: Dr. Lenin Bhatt MD Status:R EG RCR Location: History of Present Illness Date of Service: 01/25/25 Chief Complaint: Non healing sacral ulcer History of Wound: Patient is a 74 year female who presents to the wound center for evaluation of chiqui sacral ulcer and a left ischial ulcer. She was recently hospitalized for UTI/and acute kidney disease. She has a history of HTN, hyperlipidemia, seizure disorder, hypothyroidism, debility. Left ischial ulcer from pressure. The sacral ulcer is in the area of previous ulcer that healed last year. She denies fever, chills, nausea and vomiting. She is accompanied today with her son. She has home health. She sleeps on a couch. She states that she is unsure if a bed would fit into her bedroom due to it being so small. Today denies fever, chills, nausea and vomiting. Progress of Wound: No new concerns reported at this time. Some improvement noted in depth. Objective Data Objective Data Vital Signs: Vital Signs Temp Pulse Resp BP O2 Del Method 97.3 F L 80 18 136/68 H Room Air 01/25/25 10:08 01/25/25 10:08 01/25/25 10:08 01/25/25 10:08 01/25/25 10:08 Oxygen Delivery Method Room Air Weight: 140 lb 0.002 oz Body Mass Index (BMI) 0.0 Charges/Coding Procedures Integumentary 111xxx-113xx: 21081 Maria M subq tissue 20 sq cm/< Physical Exam Const alert and no apparent distress General Appearance: cooperative and comfortable HEENT normocephalic and head/scalp atraumatic Eyes EOMs intact bilaterally Neck full ROM and supple Resp normal respiratory effort Effort and Inspection: able to speak in complete sentences Skin Wounds: wounds noted size Size: See clinical note, bed other Not entirely visualized due to location , margins well approximated, no odor, open and surrounding erythema Neuro oriented x3, CN's II-XII intact bilaterally and moves all extremities Psych mental status grossly normal, thought process normal and cooperative Debridement Note Debridement Note Wound debrided: Sacral Type of Debridement: Excisional debridement Anesthesia Used: 5% Lidocaine Gel Depth: Down to and including healthy tissue and in the subcutaneous layer Percentage of wound debrided: 100 Instrument Used: 3mm curette Tissue Removed: Devitalized tissue Severity: Fat Layer Exposed Amount of bleeding with debridement: Mild Bleeding Controlled with: Pressure Patient tolerated procedure: Patient tolerated procedure well Post-Debridement Measurements and Additional Note: Post-Debridement Measurements/Treatment - Nurse 1 - General Ulcer Assessment Start: 12/28/24 11:20 Freq: Status: Active Protocol: LAURIE Activity Type Activity Date Activity User E-sign Co-sign Detail Recorded Client Recorded Date Recorded By Document 12/28/24 11:20 RB [id number] 12/28/24 11:22 RB Document 01/18/25 11:38 RB [id number] 01/18/25 11:39 RB Document 01/25/25 10:08 DS [id number] 01/25/25 10:15 DS 12/28/24 01/18/25 01/25/25 11:20 11:38 10:08 - Today's Visit Information Type of service Follow-up Visit Follow-up Visit Follow-up Visit (Physician/ONE PIECE EXPANSION MAKER HAND (Physician/ONE PIECE EXPANSION MAKER HAND (Physician/ONE PIECE EXPANSION MAKER HAND ) ) ) Arrival Mode Ambulatory Ambulatory, Ambulatory, Walker Walker Transfer Assistance None Manual Patient Identification Verified (Name & Yes Yes Yes ) Patient Requires Transmission-Based No No No Precautions Safety Precautions Fall Prevention Height and Weight Body Mass Index (BMI) 0.0 0.0 0.0 BMI Classification Underweight Underweight Underweight Vital Signs Temperature (97.8 F-99.1 F) 96.5 F L 96.5 F L 97.3 F L Temperature Source Temporal Temporal Temporal Pulse Rate (60-100) 80 88 80 Pulse Location Monitor Monitor Monitor Respiratory Rate (12-18) 18 18 18 Respiratory rate source Observation Observation Observation Oxygen Delivery Method Room Air Blood Pressure (90/60-120/80) 127/59 H 118/55 L 136/68 H Blood Pressure Mean (mm Hg) 81 76 90 Source Monitor Monitor Monitor Position Semi-Fowlers Sitting Semi-Fowlers Blood Pressure Location Left Arm Left Arm Right Arm History Since Last Visit- (Skip if this is Patient's initial visit) Have you changed medications since your No No No last visit? Any new allergies or adverse reactions No No No Had a fall/change in ADL's that may No No No increase risk of falls Signs or symptoms of abuse and/or No No No neglect since last visit Have you been in the hospital since your No No No last visit? Has dressing in place as prescribed Yes Yes Yes Has compression in place as prescribed N/A N/A N/A Has offloadiing in place as prescribed N/A N/A N/A Experienced any changes in pain level or No No No management Left Footwear Regular Shoe Right Footwear Regular Shoe Pain Scale: 0-10 Numeric Is Patient Pain Free? Yes Yes Yes WC - Nurse 1 - General Ulcer Measurement Start: 12/28/24 11:20 Freq: Status: Active Protocol: Activity Type Activity Date Activity User E-sign Co-sign Detail Recorded Client Recorded Date Recorded By Document 12/28/24 11:20 RB [id number] 12/28/24 11:22 RB Document 01/18/25 11:38 RB [id number] 01/18/25 11:39 RB Document 01/25/25 10:08 DS [id number] 01/25/25 10:15 DS 12/28/24 01/18/25 01/25/25 11:20 11:38 10:08 Wound Center Nurse 1 #1- SACRAL -Combined with other wound No No -Current Size (cm) - Length 0.4 0.3 0.4 -Current Size (cm) - Width 0.5 0.3 0.4 -Current Size (cm) - Depth 1.3 0.7 1.0 -Total Square Cm 0.20 0.09 0.16 -Photo Taken Yes Yes No -Tunneling No No No -Undermining/Tunneling No No No -Circular Undermining No No No -Exudate Amt Medium Medium None Present -Exudate Type Serosanguineous Serosanguineous -Wound Margin Thickened & Thickened & Distinct, Rolled Under Rolled Under Outline Attached -Granulation Amt Medium (34-66%) Medium (34-66%) -Granulation Quality [place] -Slough/Fibrin Yes Yes -Necrosis Amt Small (1-33%) Medium (34-66%) -Necrotic Tissue Type Adherent Slough Adherent Slough -Structure Exposed N/A N/A -Texture (Tsering-wound Skin Appearance) Assessed, Assessed, Assessed Scarring Scarring -Moisture (Tsering-wound Skin Appearance) Assessed Assessed Assessed -Color (Tsering-wound Skin Appearance) Assessed Assessed Assessed -Temperature (Tsering-wound Skin No Abnormality No Abnormality No Abnormality Appearance) (Pt Warm) (Pt Warm) (Pt Warm) -Tenderness on Palpation (Tsering-wound No No No Skin Appearance) -Ulcer Cleansing Wound Cleanser Wound Cleanser Soap and Water -Foul Odor after Cleansing No No No -Anesthetic Used 5% Lidocaine 5% Lidocaine 5% Lidocaine Gel Gel Gel WC - Nurse 2 - General Ulcer CM Notes Start: 12/28/24 11:20 Freq: Status: Active Protocol: Activity Type Activity Date Activity User E-sign Co-sign Detail Recorded Client Recorded Date Recorded By Document 12/28/24 11:32 [id number] 12/28/24 11:36 Document 01/18/25 11:46 [id number] 01/18/25 11:50 Document 01/25/25 10:22 [id number] 01/25/25 10:25 12/28/24 01/18/25 01/25/25 11:32 11:46 10:22 Wound Center Nurse 2 #1- SACRAL -Time 11:32 11:46 10:22 -Correct Patient Yes Yes Yes -Correct Side, Site, Position Yes Yes Yes -Correct Procedure Yes Yes Yes -Procedure Performed Yes Yes Yes -Type of Procedure Debridement Debridement Debridement -Clinical Debridement Subcutaneous Subcutaneous Subcutaneous -Tissue Removed Subcutaneous Subcutaneous Subcutaneous -Post Debridement (cm) - Length 0.4 0.4 0.4 -Post Debridement (cm) - Width 0.4 0.3 0.3 -Post Debridement (cm) - Depth 0.8 1.1 0.6 -Total Square (Post) (cm) 0.16 0.12 0.12 -Area of Debridement (cm) - Length 0.4 0.4 0.4 -Area of Debridement (cm) - Width 0.4 0.3 0.3 -Total Square (Area) (cm) 0.16 0.12 0.12 -Tunneling No No No -Undermining/Tunneling No No No -Circular Undermining No No No -Wound/Ulcer Outcome Not Healed Not Healed Not Healed -Ulcer Cleansing Rinsed/ Rinsed/ Rinsed/ Irrigated with Irrigated with Irrigated with Saline Saline Saline -Foul Odor after Cleansing No No No -Bioengineered Tissue No No No -Bleeding Controlled with Pressure Pressure Pressure -Treatment Response Procedure Procedure Procedure Tolerated Well Tolerated Well Tolerated Well -Offloading No No No -Debridement - Subq, 1st 20sq cm Yes Yes Yes Pain Scale: 0-10 Numeric Is Patient Pain Free? Yes Yes Yes - Nurse 3 - General Ulcer D/C NN Start: 12/28/24 11:20 Freq: Status: Active Protocol: Activity Type Activity Date Activity User E-sign Co-sign Detail Recorded Client Recorded Date Recorded By Document 12/28/24 11:51 CP [id number] 12/28/24 11:52 CP Document 01/18/25 12:01 RB [id number] 01/18/25 12:01 RB Document 01/25/25 10:33 DS [id number] 01/25/25 10:41 DS 12/28/24 01/18/25 01/25/25 11:51 12:01 10:33 Wound Care Center Nurse 3 #1- SACRAL -Ulcer Cleansing Rinsed/ Rinsed/ Irrigated with Irrigated with Saline Saline -Primary Dressing Applied Aquacel Extra, Aquacel Extra, Aquacel Extra, Silicone Border NonAdherent NonAdherent Foam 4x4 Contact Layer, Contact Layer Silicone Border Foam 4x4 -Other Dressing abd -Primary Dressing Covered/Secured with Secured with Tape -Aquacel Extra 1 1 1 -Silicone Border Foam 4x4 1 1 Treatment Response Procedure Tolerated Well Pain Scale: 0-10 Numeric Is Patient Pain Free? Yes Yes Yes - Visit Discharge Discharge Condition Stable Stable Stable Ambulatory Status Ambulatory, Ambulatory, Ambulatory, Walker Walker Walker Transportation Private Auto Private Auto Medication Reconcilliation completed & No provided to patient/care provider Clinical Summary of Care Provided Yes Yes Assessment/Plan Assessment/Plan (1) Sacral decubitus ulcer, stage IV: CODE(S): L89.154 - Pressure ulcer of sacral region, stage 4 (2) Debility: CODE(S): R53.81 - Other malaise (3) History of stroke: CODE(S): Z86.73 - Personal history of transient ischemic attack (TIA), andcerebral infarction without residual deficits (4) Decubitus ulcer of sacral area: CODE(S): L89.159 - Pressure ulcer of sacral region, unspecified stage PLAN: Plan Debridement done as documented above, procedure was well-tolerated. Some improvement in depth. No pain or drainage reported by the patient. Continue Aquacel and change daily to twice daily depending on drainage. Cover with foamdressing. Continue offloading, adequate protein intake and other chronic management. Her questions were answered and she was advised to let us know if she had any further questions or concerns. Follow-up 1 week or sooner if needed. This note was generated with [employer] dictation software. It may contain incorrectwords, spelling, and punctuation that were not noted in checking the note beforesigning. 01/25/25 1646 Cosigner Signature (if applicable): CC: ~ Signed [facility]05-22-2025 Progress note Author Catarino Dominguez [facility] Note Date/Time January 18, 2025 1:58p m [facility] [address] [place] [id number] Progress Note - Wound Care 01/18/25 1236 MR#: [id number] Acct: [id number] Name: DALIA LOPEZ Rep #:[id number] : 1950 74 From: Catarino santiago MD PCP: Dr. Lenin Bhatt MD Status:R EG RCR Location: History of Present Illness Date of Service: 01/18/25 Chief Complaint: Non healing sacral ulcer History of Wound: Patient is a 74 year female who presents to the wound center for evaluation of an a sacral ulcer and a left ischial ulcer. She was recently hospitalized for UTI/and acute kidney disease. She has a history of HTN, hyperlipidemia, seizure disorder, hypothyroidism, debility. Left ischial ulcer from pressure. The sacral ulcer is in the area of previous ulcer that healed last year. She denies fever, chills, nausea and vomiting. She is accompanied today with her son. She has home health. She sleeps on a couch. She states that she is unsure if a bed would fit into her bedroom due to it being so small. Today denies fever, chills, nausea and vomiting. Progress of Wound: No new concerns reported at this time. Missed her last appointment and last seen here about 3 weeks ago. Objective Data Objective Data Vital Signs: Vital Signs Temp Pulse Resp BP 96.5 F L 88 18 118/55 L 01/18/25 11:38 01/18/25 11:38 01/18/25 11:38 01/18/25 11:38 Weight: 140 lb 0.002 oz Body Mass Index (BMI) 0.0 Charges/Coding Procedures Integumentary 111xxx-113xx: 81306 Maria M subq tissue 20 sq cm/< Physical Exam Const alert and no apparent distress General Appearance: cooperative and comfortable HEENT normocephalic and head/scalp atraumatic Eyes EOMs intact bilaterally Neck full ROM and supple Resp normal respiratory effort Effort and Inspection: able to speak in complete sentences Skin Wounds: wounds noted size Size: See clinical note, bed other Not entirely visualized due to location , margins well approximated, no odor, open and surrounding erythema Neuro oriented x3, CN's II-XII intact bilaterally and moves all extremities Psych mental status grossly normal, thought process normal and cooperative Debridement Note Debridement Note Wound debrided: Sacral Type of Debridement: Excisional debridement Anesthesia Used: 5% Lidocaine Gel Depth: Down to and including healthy tissue and in the subcutaneous layer Percentage of wound debrided: 100 Instrument Used: 3mm curette Tissue Removed: Devitalized tissue Severity: Fat Layer Exposed Amount of bleeding with debridement: Mild Bleeding Controlled with: Pressure Patient tolerated procedure: Patient tolerated procedure well Post-Debridement Measurements and Additional Note: Post-Debridement Measurements/Treatment [place] - Nurse 1 - General Ulcer Assessment Start: 12/28/24 11:20 Freq: Status: Active Protocol: LAURIE Activity Type Activity Date Activity User E-sign Co-sign Detail Recorded Client Recorded Date Recorded By Document 12/28/24 11:20 RB [id number] 12/28/24 11:22 RB Document 01/18/25 11:38 RB [id number] 01/18/25 11:39 RB 12/28/24 01/18/25 11:20 11:38 WC - Today's Visit Information Type of service Follow-up Visit Follow-up Visit (Physician/ONE PIECE EXPANSION MAKER HAND (Physician/ONE [employer]IECE EXPANSION MAKER HAND ) ) Arrival Mode Ambulatory Ambulatory, Walker Transfer Assistance None Manual Patient Identification Verified (Name & Yes Yes ) Patient Requires Transmission-Based No No Precautions Height and Weight Body Mass Index (BMI) 0.0 0.0 BMI Classification Underweight Underweight Vital Signs Temperature (97.8 F-99.1 F) 96.5 F L 96.5 F L Temperature Source Temporal Temporal Pulse Rate (60-100) 80 88 Pulse Location Monitor Monitor Respiratory Rate (12-18) 18 18 Respiratory rate source Observation Observation Blood Pressure (90/60-120/80) 127/59 H 118/55 L Blood Pressure Mean (mm Hg) 81 76 Source Monitor Monitor Position Semi-Fowlers Sitting Blood Pressure Location Left Arm Left Arm History Since Last Visit- (Skip if this is Patient's initial visit) Have you changed medications since your No No last visit? Any new allergies or adverse reactions No No Had a fall/change in ADL's that may No No increase risk of falls Signs or symptoms of abuse and/or No No neglect since last visit Have you been in the hospital since your No No last visit? Has dressing in place as prescribed Yes Yes Has compression in place as prescribed N/A N/A Has offloadiing in place as prescribed N/A N/A Experienced any changes in pain level or No No management Pain Scale: 0-10 Numeric Is Patient Pain Free? Yes Yes - Nurse 1 - General Ulcer Measurement Start: 12/28/24 11:20 Freq: Status: Active Protocol: Activity Type Activity Date Activity User E-sign Co-sign Detail Recorded Client Recorded Date Recorded By Document 12/28/24 11:20 RB [id number] 12/28/24 11:22 RB Document 01/18/25 11:38 RB [id number] 01/18/25 11:39 RB 12/28/24 01/18/25 11:20 11:38 Wound Center Nurse 1 #1- SACRAL -Combined with other wound No No -Current Size (cm) - Length 0.4 0.3 -Current Size (cm) - Width 0.5 0.3 -Current Size (cm) - Depth 1.3 0.7 -Total Square Cm 0.20 0.09 -Photo Taken Yes Yes -Tunneling No No -Undermining/Tunneling No No -Circular Undermining No No -Exudate Amt Medium Medium -Exudate Type Serosanguineous Serosanguineous -Wound Margin Thickened & Thickened & Rolled Under Rolled Under -Granulation Amt Medium (34-66%) Medium (34-66%) -Granulation Quality [place] -Slough/Fibrin Yes Yes -Necrosis Amt Small (1-33%) Medium (34-66%) -Necrotic Tissue Type Adherent Slough Adherent Slough -Structure Exposed N/A N/A -Texture (Tsering-wound Skin Appearance) Assessed, Assessed, Scarring Scarring -Moisture (Tsering-wound Skin Appearance) Assessed Assessed -Color (Tsering-wound Skin Appearance) Assessed Assessed -Temperature (Tsering-wound Skin No Abnormality No Abnormality Appearance) (Pt Warm) (Pt Warm) -Tenderness on Palpation (Tsering-wound No No Skin Appearance) -Ulcer Cleansing Wound Cleanser Wound Cleanser -Foul Odor after Cleansing No No -Anesthetic Used 5% Lidocaine 5% Lidocaine Gel Gel - Nurse 2 - General Ulcer CM Notes Start: 12/28/24 11:20 Freq: Status: Active Protocol: Activity Type Activity Date Activity User E-sign Co-sign Detail Recorded Client Recorded Date Recorded By Document 12/28/24 11:32 [id number] 12/28/24 11:36 Document 01/18/25 11:46 [id number] 01/18/25 11:50 12/28/24 01/18/25 11:32 11:46 Wound Center Nurse 2 #1- SACRAL -Time 11:32 11:46 -Correct Patient Yes Yes -Correct Side, Site, Position Yes Yes -Correct Procedure Yes Yes -Procedure Performed Yes Yes -Type of Procedure Debridement Debridement -Clinical Debridement Subcutaneous Subcutaneous -Tissue Removed Subcutaneous Subcutaneous -Post Debridement (cm) - Length 0.4 0.4 -Post Debridement (cm) - Width 0.4 0.3 -Post Debridement (cm) - Depth 0.8 1.1 -Total Square (Post) (cm) 0.16 0.12 -Area of Debridement (cm) - Length 0.4 0.4 -Area of Debridement (cm) - Width 0.4 0.3 -Total Square (Area) (cm) 0.16 0.12 -Tunneling No No -Undermining/Tunneling No No -Circular Undermining No No -Wound/Ulcer Outcome Not Healed Not Healed -Ulcer Cleansing Rinsed/ Rinsed/ Irrigated with Irrigated with Saline Saline -Foul Odor after Cleansing No No -Bioengineered Tissue No No -Bleeding Controlled with Pressure Pressure -Treatment Response Procedure Procedure Tolerated Well Tolerated Well -Offloading No No -Debridement - Subq, 1st 20sq cm Yes Yes Pain Scale: 0-10 Numeric Is Patient Pain Free? Yes Yes - Nurse 3 - General Ulcer D/C NN Start: 12/28/24 11:20 Freq: Status: Active Protocol: Activity Type Activity Date Activity User E-sign Co-sign Detail Recorded Client Recorded Date Recorded By Document 12/28/24 11:51 [id number] 12/28/24 11:52 Document 01/18/25 12:01 [id number] 01/18/25 12:01 12/28/24 01/18/25 11:51 12:01 Wound Care Center Nurse 3 #1- SACRAL -Ulcer Cleansing Rinsed/ Rinsed/ Irrigated with Irrigated with Saline Saline -Primary Dressing Applied Aquacel Extra, Aquacel Extra, Silicone Border NonAdherent Foam 4x4 Contact Layer, Silicone Border Foam 4x4 -Aquacel Extra 1 1 -Silicone Border Foam 4x4 1 1 Treatment Response Procedure Tolerated Well Pain Scale: 0-10 Numeric Is Patient Pain Free? Yes Yes - Visit Discharge Discharge Condition Stable Stable Ambulatory Status Ambulatory, Ambulatory, Walker Walker Transportation Private Auto Medication Reconcilliation completed & No provided to patient/care provider Clinical Summary of Care Provided Yes Yes Assessment/Plan Assessment/Plan (1) Sacral decubitus ulcer, stage IV: CODE(S): L89.154 - Pressure ulcer of sacral region, stage 4 (2) Debility: CODE(S): R53.81 - Other malaise (3) History of stroke: CODE(S): Z86.73 - Personal history of transient ischemic attack (TIA), andcerebral infarction without residual deficits (4) Decubitus ulcer of sacral area: CODE(S): L89.159 - Pressure ulcer of sacral region, unspecified stage PLAN: Plan Debridement done as documented above, procedure was well-tolerated. Again, missed her last appointment, last seen here 3 weeks ago. She denies any new concerns. Increase in depth noted on examination. No other clinical concerns for infection. Was switched from iodoform to Aquacel months ago due to worsening and at her last visit, there had been some improvement noted. Will hold off any change in dressing at this time. Strongly recommend close follow-up in 1 week, call sooner with any concerns. Continue Aquacel and change daily to twice daily depending on drainage. Cover with foam dressing. Continue offloading, adequate protein intake and other chronic management. Their questions were answered and she was advised to let us know if she had any further questions or concerns. Follow-up in 2 weeks per preference. This note was generated with TranslationExchangeation software. It may contain incorrectwords, spelling, and punctuation that were not noted in checking the note beforesigning. 01/18/25 8812 <Electronically signed by Catarino Dominguez MD> Cosigner Signature (if applicable): CC: ~ Signed [facility] Work Phone: 1(165) 302-948405-22-2025 Progress note [facility] [address] [place] [address] Progress Note - Wound Care 01/18/25 1236 MR#: [id number] Acct: [id number] Name: DALIA LOPEZ Rep #:[id number] : 1950 74 From: Catarino santiago MD PCP: Dr. Lenin Bhatt MD Status:R EG RCR Location: History of Present Illness Date of Service: 01/18/25 Chief Complaint: Non healing sacral ulcer History of Wound: Patient is a 74 year female who presents to the wound center for evaluation of chiqui sacral ulcer and a left ischial ulcer. She was recently hospitalized for UTI/and acute kidney disease. She has a history of HTN, hyperlipidemia, seizure disorder, hypothyroidism, debility. Left ischial ulcer from pressure. The sacral ulcer is in the area of previous ulcer that healed last year. She denies fever, chills, nausea and vomiting. She is accompanied today with her son. She has home health. She sleeps on a couch. She states that she is unsure if a bed would fit into her bedroom due to it being so small. Today denies fever, chills, nausea and vomiting. Progress of Wound: No new concerns reported at this time. Missed her last appointment and last seen here about 3 weeksago. Objective Data Objective Data Vital Signs: Vital Signs Temp Pulse Resp BP 96.5 F L 88 18 118/55 L 01/18/25 11:38 01/18/25 11:38 01/18/25 11:38 01/18/25 11:38 Weight: 140 lb 0.002 oz Body Mass Index (BMI) 0.0 Charges/Coding Procedures Integumentary 111xxx-113xx: [id number] Maria M subq tissue 20 sq cm/< Physical Exam Const alert and no apparent distress General Appearance: cooperative and comfortable HEENT normocephalic and head/scalp atraumatic Eyes EOMs intact bilaterally Neck full ROM and supple Resp normal respiratory effort Effort and Inspection: able to speak in complete sentences Skin Wounds: wounds noted size Size: See clinical note, bed other Not entirely visualized due to location , margins well approximated, no odor, open and surrounding erythema Neuro oriented x3, CN's II-XII intact bilaterally and moves all extremities Psych mental status grossly normal, thought process normal and cooperative Debridement Note Debridement Note Wound debrided: Sacral Type of Debridement: Excisional debridement Anesthesia Used: 5% Lidocaine Gel Depth: Down to and including healthy tissue and in the subcutaneous layer Percentage of wound debrided: 100 Instrument Used: 3mm curette Tissue Removed: Devitalized tissue Severity: Fat Layer Exposed Amount of bleeding with debridement: Mild Bleeding Controlled with: Pressure Patient tolerated procedure: Patient tolerated procedure well Post-Debridement Measurements and Additional Note: Post-Debridement Measurements/Treatment CORAZON - Nurse 1 - General Ulcer Assessment Start: 12/28/24 11:20 Freq: Status: Active Protocol: LAURIE Activity Type Activity Date Activity User E-sign Co-sign Detail Recorded Client Recorded Date Recorded By Document 12/28/24 11:20 RB [id number] 12/28/24 11:22 RB Document 01/18/25 11:38 RB [id number] 01/18/25 11:39 RB 12/28/24 01/18/25 11:20 11:38 WC - Today's Visit Information Type of service Follow-up Visit Follow-up Visit (Physician/ONE PIECE EXPANSION MAKER HAND (Physician/ONE PIECE EXPANSION MAKER HAND ) ) Arrival Mode Ambulatory Ambulatory, Walker Transfer Assistance None Manual Patient Identification Verified (Name & Yes Yes ) Patient Requires Transmission-Based No No Precautions Height and Weight Body Mass Index (BMI) 0.0 0.0 BMI Classification Underweight Underweight Vital Signs Temperature (97.8 F-99.1 F) 96.5 F L 96.5 F L Temperature Source Temporal Temporal Pulse Rate (60-100) 80 88 Pulse Location Monitor Monitor Respiratory Rate (12-18) 18 18 Respiratory rate source Observation Observation Blood Pressure (90/60-120/80) 127/59 H 118/55 L Blood Pressure Mean (mm Hg) 81 76 Source Monitor Monitor Position Semi-Fowlers Sitting Blood Pressure Location Left Arm Left Arm History Since Last Visit- (Skip if this is Patient's initial visit) Have you changed medications since your No No last visit? Any new allergies or adverse reactions No No Had a fall/change in ADL's that may No No increase risk of falls Signs or symptoms of abuse and/or No No neglect since last visit Have you been in the hospital since your No No last visit? Has dressing in place as prescribed Yes Yes Has compression in place as prescribed N/A N/A Has offloadiing in place as prescribed N/A N/A Experienced any changes in pain level or No No management Pain Scale: 0-10 Numeric Is Patient Pain Free? Yes Yes - Nurse 1 - General Ulcer Measurement Start: 12/28/24 11:20 Freq: Status: Active Protocol: Activity Type Activity Date Activity User E-sign Co-sign Detail Recorded Client Recorded Date Recorded By Document 12/28/24 11:20 RB [id number] 12/28/24 11:22 RB Document 01/18/25 11:38 RB [id number] 01/18/25 11:39 RB 12/28/24 01/18/25 11:20 11:38 Wound Center Nurse 1 #1- SACRAL -Combined with other wound No No -Current Size (cm) - Length 0.4 0.3 -Current Size (cm) - Width 0.5 0.3 -Current Size (cm) - Depth 1.3 0.7 -Total Square Cm 0.20 0.09 -Photo Taken Yes Yes -Tunneling No No -Undermining/Tunneling No No -Circular Undermining No No -Exudate Amt Medium Medium -Exudate Type Serosanguineous Serosanguineous -Wound Margin Thickened & Thickened & Rolled Under Rolled Under -Granulation Amt Medium (34-66%) Medium (34-66%) -Granulation Quality [place] -Slough/Fibrin Yes Yes -Necrosis Amt Small (1-33%) Medium (34-66%) -Necrotic Tissue Type Adherent Slough Adherent Slough -Structure Exposed N/A N/A -Texture (Tsering-wound Skin Appearance) Assessed, Assessed, Scarring Scarring -Moisture (Tsering-wound Skin Appearance) Assessed Assessed -Color (Tsering-wound Skin Appearance) Assessed Assessed -Temperature (Tsering-wound Skin No Abnormality No Abnormality Appearance) (Pt Warm) (Pt Warm) -Tenderness on Palpation (Tsering-wound No No Skin Appearance) -Ulcer Cleansing Wound Cleanser Wound Cleanser -Foul Odor after Cleansing No No -Anesthetic Used 5% Lidocaine 5% Lidocaine Gel Gel WC - Nurse 2 - General Ulcer CM Notes Start: 12/28/24 11:20 Freq: Status: Active Protocol: Activity Type Activity Date Activity User E-sign Co-sign Detail Recorded Client Recorded Date Recorded By Document 12/28/24 11:32 [id number] 12/28/24 11:36 Document 01/18/25 11:46 [id number] 01/18/25 11:50 12/28/24 01/18/25 11:32 11:46 Wound Center Nurse 2 #1- SACRAL -Time 11:32 11:46 -Correct Patient Yes Yes -Correct Side, Site, Position Yes Yes -Correct Procedure Yes Yes -Procedure Performed Yes Yes -Type of Procedure Debridement Debridement -Clinical Debridement Subcutaneous Subcutaneous -Tissue Removed Subcutaneous Subcutaneous -Post Debridement (cm) - Length 0.4 0.4 -Post Debridement (cm) - Width 0.4 0.3 -Post Debridement (cm) - Depth 0.8 1.1 -Total Square (Post) (cm) 0.16 0.12 -Area of Debridement (cm) - Length 0.4 0.4 -Area of Debridement (cm) - Width 0.4 0.3 -Total Square (Area) (cm) 0.16 0.12 -Tunneling No No -Undermining/Tunneling No No -Circular Undermining No No -Wound/Ulcer Outcome Not Healed Not Healed -Ulcer Cleansing Rinsed/ Rinsed/ Irrigated with Irrigated with Saline Saline -Foul Odor after Cleansing No No -Bioengineered Tissue No No -Bleeding Controlled with Pressure Pressure -Treatment Response Procedure Procedure Tolerated Well Tolerated Well -Offloading No No -Debridement - Subq, 1st 20sq cm Yes Yes Pain Scale: 0-10 Numeric Is Patient Pain Free? Yes Yes - Nurse 3 - General Ulcer D/C NN Start: 12/28/24 11:20 Freq: Status: Active Protocol: Activity Type Activity Date Activity User E-sign Co-sign Detail Recorded Client Recorded Date Recorded By Document 12/28/24 11:51 CP [id number] 12/28/24 11:52 CP Document 01/18/25 12:01 RB [id number] 01/18/25 12:01 RB 12/28/24 01/18/25 11:51 12:01 Wound Care Center Nurse 3 #1- SACRAL -Ulcer Cleansing Rinsed/ Rinsed/ Irrigated with Irrigated with Saline Saline -Primary Dressing Applied Aquacel Extra, Aquacel Extra, Silicone Border NonAdherent Foam 4x4 Contact Layer, Silicone Border Foam 4x4 -Aquacel Extra 1 1 -Silicone Border Foam 4x4 1 1 Treatment Response Procedure Tolerated Well Pain Scale: 0-10 Numeric Is Patient Pain Free? Yes Yes - Visit Discharge Discharge Condition Stable Stable Ambulatory Status Ambulatory, Ambulatory, Walker Walker Transportation Private Auto Medication Reconcilliation completed & No provided to patient/care provider Clinical Summary of Care Provided Yes Yes Assessment/Plan Assessment/Plan (1) Sacral decubitus ulcer, stage IV: CODE(S): L89.154 - Pressure ulcer of sacral region, stage 4 (2) Debility: CODE(S): R53.81 - Other malaise (3) History of stroke: CODE(S): Z86.73 - Personal history of transient ischemic attack (TIA), andcerebral infarction without residual deficits (4) Decubitus ulcer of sacral area: CODE(S): L89.159 - Pressure ulcer of sacral region, unspecified stage PLAN: Plan Debridement done as documented above, procedure was well-tolerated. Again, missed her last appointment, last seen here 3 weeks ago. She denies any new concerns. Increase in depth noted on examination. No other clinical concerns for infection. Was switched from iodoform to Aquacel months ago due to worsening and at her last visit, there had been some improvement noted. Will hold off any change in dressing at this time. Strongly recommend close follow-up in 1 week, call sooner with any concerns. Continue Aquacel and change daily to twice daily depending on drainage. Cover with foam dressing. Continue offloading, adequate protein intake and other chronic management. Their questions were answered and she was advised to let us know if she had any further questions or concerns. Follow-up in 2 weeks per preference. This note was generated with [employer] dictation software. It may contain incorrectwords, spelling, and punctuation that were not noted in checking the note beforesigning. 01/18/25 1358 Cosigner Signature (if applicable): CC: ~ Signed [facility]05-01-2025 Progress note Author Catarino Dominguez [facility] Note Date/Time December 28, 2024 12:41p m [facility] [address] [place] [address] Progress Note - Wound Care 12/28/24 1232 MR#: [id number] Acct: [id number] Name: DALIA LOPEZ Rep #:[id number] : 1950 74 From: Catarino santiago MD PCP: Dr. Lenin Bhatt MD Status:R EG RCR Location: History of Present Illness Date of Service: 12/28/24 Chief Complaint: Non healing sacral ulcer History of Wound: Patient is a 74 year female who presents to the wound center for evaluation of an a sacral ulcer and a left ischial ulcer. She was recently hospitalized for UTI/and acute kidney disease. She has a history of HTN, hyperlipidemia, seizure disorder, hypothyroidism, debility. Left ischial ulcer from pressure. The sacral ulcer is in the area of previous ulcer that healed last year. She denies fever, chills, nausea and vomiting. She is accompanied today with her son. She has home health. She sleeps on a couch. She states that she is unsure if a bed would fit into her bedroom due to it being so small. Today denies fever, chills, nausea and vomiting. Progress of Wound: No new concerns reported at this time. Here with her son. Last seen here over 3 weeks ago. He states that he has been doing dressing changes as recommended. Objective Data Objective Data Vital Signs: Vital Signs Temp Pulse Resp BP 96.5 F L 80 18 127/59 H 12/28/24 11:20 12/28/24 11:20 12/28/24 11:20 12/28/24 11:20 Weight: 140 lb 0.002 oz Body Mass Index (BMI) 0.0 Physical Exam Const alert and no apparent distress General Appearance: cooperative and comfortable HEENT normocephalic and head/scalp atraumatic Eyes EOMs intact bilaterally Neck full ROM and supple Resp normal respiratory effort Effort and Inspection: able to speak in complete sentences Skin Wounds: wounds noted size Size: See clinical note, bed other Not entirely visualized due to location , margins well approximated, no odor, open and surrounding erythema Neuro oriented x3, CN's II-XII intact bilaterally and moves all extremities Psych mental status grossly normal, thought process normal and cooperative Debridement Note Debridement Note Wound debrided: Sacral Wound Grade/Stage: Stage IV Type of Debridement: Excisional debridement Anesthesia Used: 5% Lidocaine Gel Depth: Down to and including healthy tissue and in the subcutaneous layer Percentage of wound debrided: 100 Instrument Used: 3mm curette Tissue Removed: Devitalized tissue Severity: Fat Layer Exposed Amount of bleeding with debridement: Mild Bleeding Controlled with: Pressure Patient tolerated procedure: Patient tolerated procedure well Post-Debridement Measurements and Additional Note: Post-Debridement Measurements/Treatment - Nurse 1 - General Ulcer Assessment Start: 12/28/24 11:20 Freq: Status: Active Protocol: [email or web address].LISBET Activity Type Activity Date Activity User E-sign Co-sign Detail Recorded Client Recorded Date Recorded By Document 12/28/24 11:20 [id number] 12/28/24 11:22 RB 12/28/24 11:20 - Today's Visit Information Type of service Follow-up Visit (Physician/ONE PIECE EXPANSION MAKER HAND ) Arrival Mode Ambulatory Transfer Assistance None Patient Identification Verified (Name & Yes ) Patient Requires Transmission-Based No Precautions Height and Weight Body Mass Index (BMI) 0.0 BMI Classification Underweight Vital Signs Temperature (97.8 F-99.1 F) 96.5 F L Temperature Source Temporal Pulse Rate (60-100) 80 Pulse Location Monitor Respiratory Rate (12-18) 18 Respiratory rate source Observation Blood Pressure (90/60-120/80) 127/59 H Blood Pressure Mean (mm Hg) 81 Source Monitor Position Semi-Fowlers Blood Pressure Location Left Arm History Since Last Visit- (Skip if this is Patient's initial visit) Have you changed medications since your No last visit? Any new allergies or adverse reactions No Had a fall/change in ADL's that may No increase risk of falls Signs or symptoms of abuse and/or No neglect since last visit Have you been in the hospital since your No last visit? Has dressing in place as prescribed Yes Has compression in place as prescribed N/A Has offloadiing in place as prescribed N/A Experienced any changes in pain level or No management Pain Scale: 0-10 Numeric Is Patient Pain Free? Yes WC - Nurse 1 - General Ulcer Measurement Start: 12/28/24 11:20 Freq: Status: Active Protocol: Activity Type Activity Date Activity User E-sign Co-sign Detail Recorded Client Recorded Date Recorded By Document 12/28/24 11:20 RB [id number] 12/28/24 11:22 RB 12/28/24 11:20 Wound Center Nurse 1 #1- SACRAL -Combined with other wound No -Current Size (cm) - Length 0.4 -Current Size (cm) - Width 0.5 -Current Size (cm) - Depth 1.3 -Total Square Cm 0.20 -Photo Taken Yes -Tunneling No -Undermining/Tunneling No -Circular Undermining No -Exudate Amt Medium -Exudate Type Serosanguineous -Wound Margin Thickened & Rolled Under -Granulation Amt Medium (34-66%) -Granulation Quality [place] -Slough/Fibrin Yes -Necrosis Amt Small (1-33%) -Necrotic Tissue Type Adherent Slough -Structure Exposed N/A -Texture (Tsering-wound Skin Appearance) Assessed, Scarring -Moisture (Tsering-wound Skin Appearance) Assessed -Color (Tsering-wound Skin Appearance) Assessed -Temperature (Tsering-wound Skin No Abnormality Appearance) (Pt Warm) -Tenderness on Palpation (Tsering-wound No Skin Appearance) -Ulcer Cleansing Wound Cleanser -Foul Odor after Cleansing No -Anesthetic Used 5% Lidocaine Gel CORAZON - Nurse 2 - General Ulcer CM Notes Start: 12/28/24 11:20 Freq: Status: Active Protocol: Activity Type Activity Date Activity User E-sign Co-sign Detail Recorded Client Recorded Date Recorded By Document 12/28/24 11:32 [id number] 12/28/24 11:36 12/28/24 11:32 Wound Center Nurse 2 -Time 11:32 -Correct Patient Yes -Correct Side, Site, Position Yes -Correct Procedure Yes -Procedure Performed Yes -Type of Procedure Debridement -Clinical Debridement Subcutaneous -Tissue Removed Subcutaneous -Post Debridement (cm) - Length 0.4 -Post Debridement (cm) - Width 0.4 -Post Debridement (cm) - Depth 0.8 -Total Square (Post) (cm) 0.16 -Area of Debridement (cm) - Length 0.4 -Area of Debridement (cm) - Width 0.4 -Total Square (Area) (cm) 0.16 -Tunneling No -Undermining/Tunneling No -Circular Undermining No -Wound/Ulcer Outcome Not Healed -Ulcer Cleansing Rinsed/ Irrigated with Saline -Foul Odor after Cleansing No -Bioengineered Tissue No -Bleeding Controlled with Pressure -Treatment Response Procedure Tolerated Well -Offloading No -Debridement - Subq, 1st 20sq cm Yes Pain Scale: 0-10 Numeric Is Patient Pain Free? Yes - Nurse 3 - General Ulcer D/C NN Start: 12/28/24 11:20 Freq: Status: Active Protocol: Activity Type Activity Date Activity User E-sign Co-sign Detail Recorded Client Recorded Date Recorded By Document 12/28/24 11:51 [id number] 12/28/24 11:52 12/28/24 11:51 Wound Care Center Nurse 3 #1- SACRAL -Ulcer Cleansing Rinsed/ Irrigated with Saline -Primary Dressing Applied Aquacel Extra, Silicone Border Foam 4x4 -Aquacel Extra 1 -Silicone Border Foam 4x4 1 Pain Scale: 0-10 Numeric Is Patient Pain Free? Yes - Visit Discharge Discharge Condition Stable Ambulatory Status Ambulatory, Walker Clinical Summary of Care Provided Yes Assessment/Plan Assessment/Plan (1) Sacral decubitus ulcer, stage IV: CODE(S): L89.154 - Pressure ulcer of sacral region, stage 4 (2) Debility: CODE(S): R53.81 - Other malaise (3) History of stroke: CODE(S): Z86.73 - Personal history of transient ischemic attack (TIA), andcerebral infarction without residual deficits (4) Decubitus ulcer of sacral area: CODE(S): L89.159 - Pressure ulcer of sacral region, unspecified stage PLAN: Plan Debridement done as documented above, procedure was well-tolerated. No new concerns reported at this time as above, has not been seen in over 3 weeks. At her last visit, she was switched from iodoform to Aquacel due to some worsening appreciated at that time. Improvement noted since her last visit. They state that they have been doing Aquacel changes as recommended. Continue Aquacel and change daily to twice daily depending on drainage. Cover with foam dressing. Surrounding erythema has resolved, continue adequate moisturizing. Continue offloading and adequate protein intake. Imaging ordered at her last visit reviewed, no concern for osteomyelitis. A1c was also at 6.3 similar to last [id number] in 2018. ESR was normal. Continue chronic management. Their questions were answered and he was advised to let us know if he has any further questions or concerns. Follow-up in 2 weeks per preference. This note was generated with [employer]Exchangeation software. It may contain incorrectwords, spelling, and punctuation that were not noted in checking the note beforesigning. 12/28/24 1241 <Electronically signed by Catarino Dominguez MD> Cosigner Signature (if applicable): CC: ~ Signed [facility] Work Phone: 1(272) 467-860405-01-[address] [facility] [address] [place] [address] Progress Note - Wound Care 12/28/24 1232 MR#: [id number] Acct: [id number] Name: DALIA LOPEZ Rep #:[id number] : 1950 74 From: Catarino santiago MD PCP: Dr. Lenin Bhatt MD Status:R EG RCR Location: History of Present Illness Date of Service: 12/28/24 Chief Complaint: Non healing sacral ulcer History of Wound: Patient is a 74 year female who presents to the wound center for evaluation of chiqui sacral ulcer and a left ischial ulcer. She was recently hospitalized for UTI/and acute kidney disease. She has a history of HTN, hyperlipidemia, seizure disorder, hypothyroidism, debility. Left ischial ulcer from pressure. The sacral ulcer is in the area of previous ulcer that healed last year. She denies fever, chills, nausea and vomiting. She is accompanied today with her son. She has home health. She sleeps on a couch. She states that she is unsure if a bed would fit into her bedroom due to it being so small. Today denies fever, chills, nausea and vomiting. Progress of Wound: No new concerns reported at this time. Here with her son. Last seen here over 3 weeks ago. He states that he has been doing dressing changes as recommended. Objective Data Objective Data Vital Signs: Vital Signs Temp Pulse Resp BP 96.5 F L 80 18 127/59 H 12/28/24 11:20 12/28/24 11:20 12/28/24 11:20 12/28/24 11:20 Weight: 140 lb 0.002 oz Body Mass Index (BMI) 0.0 Physical Exam Const alert and no apparent distress General Appearance: cooperative and comfortable HEENT normocephalic and head/scalp atraumatic Eyes EOMs intact bilaterally Neck full ROM and supple Resp normal respiratory effort Effort and Inspection: able to speak in complete sentences Skin Wounds: wounds noted size Size: See clinical note, bed other Not entirely visualized due to location , margins well approximated, no odor, open and surrounding erythema Neuro oriented x3, CN's II-XII intact bilaterally and moves all extremities Psych mental status grossly normal, thought process normal and cooperative Debridement Note Debridement Note Wound debrided: Sacral Wound Grade/Stage: Stage IV Type of Debridement: Excisional debridement Anesthesia Used: 5% Lidocaine Gel Depth: Down to and including healthy tissue and in the subcutaneous layer Percentage of wound debrided: 100 Instrument Used: 3mm curette Tissue Removed: Devitalized tissue Severity: Fat Layer Exposed Amount of bleeding with debridement: Mild Bleeding Controlled with: Pressure Patient tolerated procedure: Patient tolerated procedure well Post-Debridement Measurements and Additional Note: Post-Debridement Measurements/Treatment - Nurse 1 - General Ulcer Assessment Start: 12/28/24 11:20 Freq: Status: Active Protocol: LAURIE Activity Type Activity Date Activity User E-sign Co-sign Detail Recorded Client Recorded Date Recorded By Document 12/28/24 11:20 [id number] 12/28/24 11:22 RB 12/28/24 11:20 - Today's Visit Information Type of service Follow-up Visit (Physician/[employer] ) Arrival Mode Ambulatory Transfer Assistance None Patient Identification Verified (Name & Yes ) Patient Requires Transmission-Based No Precautions Height and Weight Body Mass Index (BMI) 0.0 BMI Classification Underweight Vital Signs Temperature (97.8 F-99.1 F) 96.5 F L Temperature Source Temporal Pulse Rate (60-100) 80 Pulse Location Monitor Respiratory Rate (12-18) 18 Respiratory rate source Observation Blood Pressure (90/60-120/80) 127/59 H Blood Pressure Mean (mm Hg) 81 Source Monitor Position Semi-Fowlers Blood Pressure Location Left Arm History Since Last Visit- (Skip if this is Patient's initial visit) Have you changed medications since your No last visit? Any new allergies or adverse reactions No Had a fall/change in ADL's that may No increase risk of falls Signs or symptoms of abuse and/or No neglect since last visit Have you been in the hospital since your No last visit? Has dressing in place as prescribed Yes Has compression in place as prescribed N/A Has offloadiing in place as prescribed N/A Experienced any changes in pain level or No management Pain Scale: 0-10 Numeric Is Patient Pain Free? Yes WC - Nurse 1 - General Ulcer Measurement Start: 12/28/24 11:20 Freq: Status: Active Protocol: Activity Type Activity Date Activity User E-sign Co-sign Detail Recorded Client Recorded Date Recorded By Document 12/28/24 11:20 [id number] 12/28/24 11:22 RB 12/28/24 11:20 Wound Center Nurse 1 #1- SACRAL -Combined with other wound No -Current Size (cm) - Length 0.4 -Current Size (cm) - Width 0.5 -Current Size (cm) - Depth 1.3 -Total Square Cm 0.20 -Photo Taken Yes -Tunneling No -Undermining/Tunneling No -Circular Undermining No -Exudate Amt Medium -Exudate Type Serosanguineous -Wound Margin Thickened & Rolled Under -Granulation Amt Medium (34-66%) -Granulation Quality [place] -Slough/Fibrin Yes -Necrosis Amt Small (1-33%) -Necrotic Tissue Type Adherent Slough -Structure Exposed N/A -Texture (Tsering-wound Skin Appearance) Assessed, Scarring -Moisture (Tsering-wound Skin Appearance) Assessed -Color (Tsering-wound Skin Appearance) Assessed -Temperature (Tsering-wound Skin No Abnormality Appearance) (Pt Warm) -Tenderness on Palpation (Tsering-wound No Skin Appearance) -Ulcer Cleansing Wound Cleanser -Foul Odor after Cleansing No -Anesthetic Used 5% Lidocaine Gel WC - Nurse 2 - General Ulcer CM Notes Start: 12/28/24 11:20 Freq: Status: Active Protocol: Activity Type Activity Date Activity User E-sign Co-sign Detail Recorded Client Recorded Date Recorded By Document 12/28/24 11:32 [id number] 12/28/24 11:36 12/28/24 11:32 Wound Center Nurse 2 -Time 11:32 -Correct Patient Yes -Correct Side, Site, Position Yes -Correct Procedure Yes -Procedure Performed Yes -Type of Procedure Debridement -Clinical Debridement Subcutaneous -Tissue Removed Subcutaneous -Post Debridement (cm) - Length 0.4 -Post Debridement (cm) - Width 0.4 -Post Debridement (cm) - Depth 0.8 -Total Square (Post) (cm) 0.16 -Area of Debridement (cm) - Length 0.4 -Area of Debridement (cm) - Width 0.4 -Total Square (Area) (cm) 0.16 -Tunneling No -Undermining/Tunneling No -Circular Undermining No -Wound/Ulcer Outcome Not Healed -Ulcer Cleansing Rinsed/ Irrigated with Saline -Foul Odor after Cleansing No -Bioengineered Tissue No -Bleeding Controlled with Pressure -Treatment Response Procedure Tolerated Well -Offloading No -Debridement - Subq, 1st 20sq cm Yes Pain Scale: 0-10 Numeric Is Patient Pain Free? Yes - Nurse 3 - General Ulcer D/C NN Start: 12/28/24 11:20 Freq: Status: Active Protocol: Activity Type Activity Date Activity User E-sign Co-sign Detail Recorded Client Recorded Date Recorded By Document 12/28/24 11:51 [id number] 12/28/24 11:52 12/28/24 11:51 Wound Care Center Nurse 3 #1- SACRAL -Ulcer Cleansing Rinsed/ Irrigated with Saline -Primary Dressing Applied Aquacel Extra, Silicone Border Foam 4x4 -Aquacel Extra 1 -Silicone Border Foam 4x4 1 Pain Scale: 0-10 Numeric Is Patient Pain Free? Yes - Visit Discharge Discharge Condition Stable Ambulatory Status Ambulatory, Walker Clinical Summary of Care Provided Yes Assessment/Plan Assessment/Plan (1) Sacral decubitus ulcer, stage IV: CODE(S): L89.154 - Pressure ulcer of sacral region, stage 4 (2) Debility: CODE(S): R53.81 - Other malaise (3) History of stroke: CODE(S): Z86.73 - Personal history of transient ischemic attack (TIA), andcerebral infarction without residual deficits (4) Decubitus ulcer of sacral area: CODE(S): L89.159 - Pressure ulcer of sacral region, unspecified stage PLAN: Plan Debridement done as documented above, procedure was well-tolerated. No new concerns reported at this time as above, has not been seen in over 3 weeks. At her last visit, she was switched from iodoform to Aquacel due to some worsening appreciated at that time. Improvement noted since her last visit.They state that they have been doing Aquacel changes as recommended. Continue Aquacel and change daily to twice daily depending on drainage. Cover with foam dressing. Surrounding erythema has resolved, continue adequate moisturizing. Continue offloading and adequate protein intake. Imaging ordered at her last visit reviewed, no concern for osteomyelitis. A1c was also at 6.3 similar to last G3nmilbn in 2018. ESR was normal. Continue chronic management. Their questions were answered and he was advised to let us know if he has any further questions or concerns. Follow-up in 2 weeks per preference. This note was generated with [employer] dictation software. It may contain incorrectwords, spelling, and punctuation that were not noted in checking the note beforesigning. 12/28/24 1241 Cosigner Signature (if applicable): CC: ~ Signed [facility]03-28-2025 Radiology Diagnostic study note [facility] Imaging Services [address] [place] [address] Sacrum-Coccyx min 2 Views MR#: [id number] Acct: [id number] Name: DALIA LOPEZ Rep #: [id number] : 1950 F 74 From: Natacha Che MD PCP: Dr. Leinn Bhatt MD Status: R EG RCR Study:Sacrum-Coccyx min 2 Views Date of Exam: 11/23/24 Exam# [id number] Ordering Dr: Jack Dominguez MD EXAM: XR Sacrum and Coccyx, 2 or more Views CLINICAL INDICATION: SACRAL ULCER STAGE IV TECHNIQUE: Frontal and lateral views of the sacrum and coccyx. COMPARISON: No relevant prior studies available. FINDINGS: SACRUM/COCCYX: Unremarkable as visualized. No acute fracture. VERTEBRAE: Visualized lumbar vertebrae are unremarkable. SOFT TISSUES: Soft tissue swelling. OTHER FINDINGS: No obvious radiographic evidence of osteomyelitis. However, if clinical suspicion remains high, further evaluation with 3 phase bone scan or MRI is recommended. No erosive changes to the osseous structures. RAD/Sacrum-Coccyx min 2 Views IMPRESSION: No obvious radiographic evidence of osteomyelitis. However, if clinical suspicion remains high, further evaluation with 3 phase bone scan or MRI is recommended. [facility] CC: Dr. Catarino Dominguez MD; Dr. 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: Signed [facility]03-24-2025 Telephone encounter Note* Telephone Encounter - Jonathan Aguila MD - 11/20/2024 4:38 PM EDT Signed in another encounter [facility] Work Phone: [phone]) 662-776703-24-2025 Miscellaneous Notes* Telephone Encounter - Jonathan Aguila MD - 11/20/2024 4:38 PM EDT Signed in another encounter * Telephone Encounter - Jerri Zamora LPN - 11/20/2024 2:36 PM EDT Patient's request for medication is as follows: Requested Prescriptions Pending Prescriptions Disp Refills furosemide (LASIX) 20 mg tablet [Pharmacy Med Name: FUROSEMIDE 20 MG TABLET] 90 tablet 0 Sig: TAKE 1 TABLET BY MOUTH EVERY DAY NEEDED Last seen 09/29/2023. Message sent to clerical to schedule overdue yearly follow up appointment. Prescription(s) as above. Please process accordingly. Jerri Zamora LPN documented [facility] NoteHNO ID: [id number] Author: LENIN BHATT MD Service: ? Author Type: Physician Type: Progress Notes Filed: 11/20/2024 17:21 Note Text: This note was created using Incipientriter. Subjective Patient presents with: F/U 3 Month Dalia Lopez is a 74 year old female was here with son William. She was doing reasonably well. Other than sacral ulcers, her other decubiti ulcers have healed. William wanted her labs done here for Dr. Dominguez, her wound care physician. I suggested x rays be done at the [facility] for wound care. Seizure, late effects of cerebral vascular accident, coronary artery disease, .congestive heart failure, and chronic respiratory failure were stable. She was in good spirits as her great grandson accompanied her today. Review of Systems Constitutional: Negative for fever and unexpected weight change. Respiratory: Negative for cough, shortness of breath and wheezing. Cardiovascular: Negative for chest pain, palpitations and leg swelling. Gastrointestinal: Negative for abdominal pain, constipation, diarrhea, nausea and vomiting. Genitourinary: Negative for dysuria. Neurological: Negative for dizziness, seizures and syncope. 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 Essential Hypertension Seizure As Late Effect of Cerebrovascular Accident (Cva) (Hcc) Pvd (Peripheral Vascular Disease) (Hcc) Acquired Hypothyroidism Hyperlipidemia Anxiety Associated With Depression Impaired Fasting Glucose Mass of Left Kidney Urinary Incontinence Acute On Chronic Respiratory Failure With Hypoxemia (Hcc) Ischemic Cardiomyopathy Chronic Systolic (Congestive) Heart Failure (Hcc) Current Moderate Episode of Major Depressive Disorder (Hcc) Arteriosclerosis of Coronary Artery Recurrent Falls Chronic Bronchitis, Unspecified Chronic Bronchitis Type (Hcc) Decubitus Ulcer of Sacral Region, Stage 3 (Hcc) Current Outpatient Medications Medication Sig acetaminophen-codeine (TYLENOL-COD #3) 300-30 mg per tablet Take 1 tablet by mouth at bedtime as needed for pain for up to 30 days. sertraline (ZOLOFT) 100 mg tablet Take 2 tablets by mouth once daily. spironolactone (ALDACTONE) 25 mg tablet Take 1 tablet by mouth once daily. atorvastatin (LIPITOR) 20 mg tablet Take 1 tablet by mouth once daily. albuterol HFA (VENTOLIN HFA) 90 mcg/actuation inhaler Inhale 2 Puffs as instructed every 4 hours as needed for wheezing/shortness of breath. aspirin, enteric coated (JOSE LOW DOSE ASPIRIN) 81 mg EC tablet Take 1 tablet by mouth once daily. carvedilol (COREG) 12.5 mg tablet Take 1 tablet by mouth two times a day with meals. multivitamin tablet Take 1 tablet by mouth once daily. levETIRAcetam (KEPPRA) 500 mg tablet Take 0.5 tablets by mouth two times a day. clopidogrel (PLAVIX) 75 mg tablet Take 1 tablet by mouth once daily. levothyroxine (SYNTHROID) 50 mcg tablet Take 1 tablet by mouth once daily. on an empty stomach 1/2 hour before meal. albuterol (PROVENTIL) 2.5 mg /3 mL (0.083 %) nebulizer solution Use 3 mL via nebulizer every 6 hours as needed for wheezing/shortness of breath. Use over 5-15minutes. furosemide (LASIX) 20 mg tablet take 1 tablet by mouth once daily if needed nystatin (MYCOSTATIN) powder Apply 1 application to affected area two times a day. COMPOUNDED PRESCRIPTION Oxygen Portable tanks (D tanks [...] facility-administered medications for this visit. Objective BP 130/68 (BP Site: Left Arm, BP Cuff Size: Large Adult) Pulse 84 Temp 36.4 ?C (97.5 ?F) (Temporal) Resp 16 Wt 64.2 kg (141 lb 8.6 oz) BMI 25.24 kg/m? Physical Exam Constitutional: General: She is not in acute distress. HENT: Head: Normocephalic. Eyes: Conjunctiva/sclera: Conjunctivae normal. Cardiovascular: Rate and Rhythm: Normal rate and regular rhythm. Heart sounds: S1 normal and S2 normal. No murmur heard. No gallop. Pulmonary: Effort: No respiratory distress. Breath sounds: No wheezing or rales. Abdominal: General: There is no distension. Palpations: Abdomen is soft. Tenderness: There is no abdominal tenderness. Musculoskeletal: Right lower leg: No edema. Left lower leg: No edema. Neurological: Mental Status: She is alert. Mental status is at baseline. Comments: Wheelchair bound. Psychiatric: Attention and Perception: Attention normal. Mood and Affect: Mood normal. Speech: Speech is slurred. Assessment and Plan (more content not included)...[facility]03-24-2025 History of Present illness Narrative* Lenin Bhatt MD - 11/20/2024 4:18 PM EDT This note was created using Incipientriter. Subjective Patient presents with: F/U 3 Month Dalia Lopez is a 74 year old female was here with son William. She was doing reasonably well. Other than sacral ulcers, her other decubiti ulcers have healed. William wanted her labs done here for Dr. Dominguez, her wound care physician. I suggested x rays be done at the [facility] for wound care. Seizure, late effects of cerebral vascular accident, coronary artery disease, .congestiveheart failure, and chronic respiratory failure were stable. She was in good spirits as her great grandson accompanied her today. Review of Systems Constitutional: Negative for fever and unexpected weight change. Respiratory: Negative for cough, shortness of breath and wheezing. Cardiovascular: Negative for chest pain, palpitations and leg swelling. Gastrointestinal: Negative for abdominal pain, constipation, diarrhea, nausea and vomiting. Genitourinary: Negative for dysuria. Neurological: Negative for dizziness, seizures and syncope. 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) Pvd (Peripheral Vascular Disease) ([facility]) Acquired Hypothyroidism Hyperlipidemia Anxiety Associated With Depression Impaired Fasting Glucose Mass of Left Kidney Urinary Incontinence Acute On Chronic Respiratory Failure With Hypoxemia ([facility]) Ischemic Cardiomyopathy Chronic Systolic (Congestive) Heart Failure ([facility]) Current Moderate Episode of Major Depressive Disorder (Hcc) Arteriosclerosis of Coronary Artery Recurrent Falls Chronic Bronchitis, Unspecified Chronic Bronchitis Type (Hcc) Decubitus Ulcer of Sacral Region, Stage 3 (Hcc) Current Outpatient Medications Medication Sig acetaminophen-codeine (TYLENOL-COD #3) 300-30 mg per tablet Take 1 tablet by mouth at bedtime as needed for pain for up to 30 days. sertraline (ZOLOFT) 100 mg tablet Take 2 tablets by mouth once daily. spironolactone (ALDACTONE) [...] times a day with meals. multivitamin tablet Take 1 tablet by mouth once daily. levETIRAcetam (KEPPRA) 500 mg tablet Take 0.5 tablets by mouth two times a day. clopidogrel (PLAVIX) 75 mg tablet Take 1 tablet by mouth once daily. levothyroxine (SYNTHROID) 50 mcg tablet Take 1 tablet by mouth once daily. on an empty stomach 1/2 hour before meal. albuterol (PROVENTIL) 2.5 mg /3 mL (0.083 %) nebulizer solution Use 3 mL via nebulizer every 6 hours as needed for wheezing/shortness of breath. Use over 5-15minutes. furosemide (LASIX) 20 mg tablet take 1 tablet by mouth once daily if needed nystatin (MYCOSTATIN) powder Apply 1 application to affected area two times a day. COMPOUNDED PRESCRIPTION Oxygen Portable tanks (D tanks [...] facility-administered medications for this visit. Objective BP 130/68 (BP Site: Left Arm, BP Cuff Size: Large Adult) Pulse 84 Temp 36.4 C (97.5 F) (Temporal) Resp 16 Wt 64.2 kg (141 lb 8.6 oz) BMI 25.24 kg/m Physical Exam Constitutional: General: She is not in acute distress. HENT: Head: Normocephalic. Eyes: Conjunctiva/sclera: Conjunctivae normal. Cardiovascular: Rate and Rhythm: Normal rate and regular rhythm. Heart sounds: S1 normal and S2 normal. No murmur heard. No gallop. Pulmonary: Effort: No respiratory distress. Breath sounds: No wheezing or rales. Abdominal: General: There is no distension. Palpations: Abdomen is soft. Tenderness: There is no abdominal tenderness. Musculoskeletal: Right lower leg: No edema. Left lower leg: No edema. Neurological: Mental Status: She is alert. Mental status is at baseline. Comments: Wheelchair bound. Psychiatric: Attention and Perception: Attention normal. Mood and Affect: Mood normal. Speech: Speech is slurred. Assessment and Plan 1. Decubitus ulcer of sacral region, stage 3 (HCC) - ICD9: 707.03, 707.23, ICD10: L89.153 (primary diagnosis) Labs ordered for Wound Center. - COMPREHENSIVE METABOLIC PANEL - C-REACTIVE PROTEIN - HEMOGLOBIN A1C - COMPLETE BLOOD COUNT AND DIFFERENTIAL - SEDIMENTATION RATE, WESTERGREN - PREALBUMIN - PREALBUMIN 2. Arteriosclerosis of coronary artery - ICD9: 414.00, ICD10: I25.10 Stable. - CLOPIDOGREL 75 MG TABLET 3. Acquired hypothyroidism - ICD9: 244.9, ICD10: E03.9 - continue current dose of Synthroid - LEVOTHYROXINE 50 MCG TABLET 4. Erythema intertrigo - ICD9: 695.89, ICD10: L30.4 Refilled. - NYSTATIN 100,000 UNIT/GRAM TOPICAL POWDER 5. 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 6. Essential hypertension - ICD9: 401.9, ICD10: I10 - Controlled - Continue current medications 7. Chronic systolic (congestive) heart failure (HCC) - ICD9: 428.22, 428.0, ICD10: I50.22 - Compensated - Continue current medications 8. Seizure (HCC) - ICD9: 780.39, ICD10: R56.9 Controlled. Tablet changed. Continue 250 MG BID. - LEVETIRACETAM 250 MG TABLET Lenin Bhatt MD documented [facility] Telephone encounter Note * Telephone Encounter - Kenton Torres - 11/20/2024 3:15 PM EDT Patient's son preferred doctor in [place]. Patients scheduled for 07/19/25. Kenton Torres [facility]03-24-2025 Miscellaneous Notes* Telephone Encounter - Kenton Torres - 11/20/2024 3:15 PM EDT Patient's son preferred doctor in [place]. Patients scheduled for 07/19/25. Kenton Torres * Telephone Encounter - Bia Rizzo RN - 11/20/2024 2:37 PM EDT Pt was due for annual follow up in Aug 2024. Please reach out with overdue follow up appointment. CAYLA Rizzo RN documented in this encounterA[facility]03-[facility] Telephone encounter Note * Telephone Encounter - Bia Rizzo RN - 11/20/2024 2:37 PM EDT Pt was due for annual follow up in Aug 2024. Please reach out with overdue follow up appointment. CAYLA Rizzo RN [facility]03-24-2025 Telephone encounter Note* Telephone Encounter - Nola Chan MA - 11/20/2024 2:36 PM EDT Patient has appointment in office with pcp. Asked son regarding edgard who manages and advised lastprovider who filled as pcp in February. Nola Chan MA [facility]03-24-2025 Telephone encounter Note* Telephone Encounter - Bia Rizzo RN - 11/20/2024 2:36 PM EDT Patient's request for medication is as follows: Requested Prescriptions Pending Prescriptions Disp Refills furosemide (LASIX) 20 mg tablet 90 tablet 0 Sig: Take 1 tablet by mouth once daily. Last visit Aug 2023. Pt was due Aug 2024. I will ask clerical to reach out with an OV. Prescription(s) as above. Please process accordingly. Bia Rizzo RN [facility]03-24-2025 Telephone encounter Note* Telephone Encounter - Jerri Zamora LPN - 11/20/2024 2:36 PM EDT Patient's request for medication is as follows: Requested Prescriptions Pending Prescriptions Disp Refills furosemide (LASIX) 20 mg tablet [Pharmacy Med Name: FUROSEMIDE 20 MG TABLET] 90 tablet 0 Sig: TAKE 1 TABLET BY MOUTH EVERY DAY NEEDED Last seen 09/29/2023. Message sent to clerical to schedule overdue yearly follow up appointment. Prescription(s) as above. Please process accordingly. Jerri Zamora LPN [facility]03-24-2025 Miscellaneous Notes* Telephone Encounter - Nola Chan MA - 11/20/2024 2:36 PM EDT Patient has appointment in office with pcp. Asked son regarding edgard who manages and advised lastprovider who filled as pcp in February. Nola Chan MA documented in this encounterA[facility]03-[facility] Miscellaneous Notes* Telephone Encounter - Bia Rizzo RN - 11/20/2024 2:36 PM EDT Patient's request for medication is as follows: Requested Prescriptions Pending Prescriptions Disp Refills furosemide (LASIX) 20 mg tablet 90 tablet 0 Sig: Take 1 tablet by mouth once daily. Last visit Aug 2023. Pt was due Aug 2024. I will ask clerical to reach out with an OV. Prescription(s) as above. Please process accordingly. Bia Rizzo RN documented in this encounterA[facility]03-13-2025 Progress note Author daniel Dominguez [facility] Note Date/Time November 09, 2024 1:3 5pm [facility] [address] [place] [id number] Progress Note - Wound Care 11/09/24 1206 MR#: [id number] Acct: [id number] Name: DALIA LOPEZ Rep #:[id number] : 1950 74 From: Catarino santiago MD PCP: Dr. Lenin Bhatt MD Status:R EG RCR Location: History of Present Illness Date of Service: 11/09/24 Chief Complaint: Non healing sacral ulcer History of Wound: Patient is a 74 year female who presents to the wound center for evaluation of an a sacral ulcer and a left ischial ulcer. She was recently hospitalized for UTI/and acute kidney disease. She has a history of HTN, hyperlipidemia, seizure disorder, hypothyroidism, debility. Left ischial ulcer from pressure. The sacral ulcer is in the area of previous ulcer that healed last year. She denies fever, chills, nausea and vomiting. She is accompanied today with her son. She has home health. She sleeps on a couch. She states that she is unsure if a bed would fit into her bedroom due to it being so small. Today denies fever, chills, nausea and vomiting. Progress of Wound: No new concerns reported at this time. Here with her son, no drainage or concerns during dressing changes reported. Objective Data Objective Data Vital Signs: Vital Signs Temp Pulse Resp BP O2 Del Method 98.0 F 87 18 146/55 H Room Air 11/09/24 10:49 11/09/24 10:49 11/09/24 10:49 11/09/24 10:49 11/09/24 10:49 Oxygen Delivery Method Room Air Weight: 5 lb 4 oz Body Mass Index (BMI) 0.0 Charges/Coding Procedures Integumentary 111xxx-113xx: [id number] Maria M subq tissue 20 sq cm/< Physical Exam Const alert and no apparent distress General Appearance: cooperative and comfortable HEENT normocephalic and head/scalp atraumatic Eyes EOMs intact bilaterally Neck full ROM and supple Resp normal respiratory effort Effort and Inspection: able to speak in complete sentences Skin Wounds: wounds noted size Size: See clinical note, bed other Not entirely visualized due to location , margins well approximated, no odor, open and surrounding erythema Neuro oriented x3, CN's II-XII intact bilaterally and moves all extremities Psych mental status grossly normal, thought process normal and cooperative Debridement Note Debridement Note Wound debrided: Sacral Type of Debridement: Excisional debridement Anesthesia Used: 5% Lidocaine Gel Depth: Down to and including healthy tissue and in the subcutaneous layer Percentage of wound debrided: 100 Instrument Used: 3mm curette Tissue Removed: Devitalized tissue Severity: Fat Layer Exposed Amount of bleeding with debridement: Mild Bleeding Controlled with: Pressure Patient tolerated procedure: Patient tolerated procedure well Post-Debridement Measurements and Additional Note: Post-Debridement Measurements/Treatment - Nurse 1 - General Ulcer Assessment Start: 11/09/24 10:49 Freq: Status: Active Protocol: LAURIE Activity Type Activity Date Activity User E-sign Co-sign Detail Recorded Client Recorded Date Recorded By Document 11/09/24 10:49 NC [id number] 11/09/24 10:56 NC 11/09/24 10:49 - Today's Visit Information Type of service Follow-up Visit (Physician/[employer]CE [employer] ) Arrival Mode Ambulatory Accompanied by son Patient Identification Verified (Name & Yes ) Safety Precautions Fall Prevention Height and Weight Body Mass Index (BMI) 0.0 BMI Classification Underweight Vital Signs Temperature (97.8 F-99.1 F) 98.0 F Temperature Source Temporal Pulse Rate (60-100) 87 Pulse Location Monitor Respiratory Rate (12-18) 18 Respiratory rate source Observation Oxygen Delivery Method Room Air Blood Pressure (90/60-120/80) 146/55 H Blood Pressure Mean (mm Hg) 85 Source Monitor Position Sitting Blood Pressure Location Right Arm History Since Last Visit- (Skip if this is Patient's initial visit) Has dressing in place as prescribed Yes Has compression in place as prescribed Yes Has offloadiing in place as prescribed Yes Experienced any changes in pain level or Yes management Left Footwear Regular Shoe Right Footwear Regular Shoe Pain Scale: 0-10 Numeric Is Patient Pain Free? Yes WC - Nurse 1 - General Ulcer Measurement Start: 11/09/24 10:49 Freq: Status: Active Protocol: Activity Type Activity Date Activity User E-sign Co-sign Detail Recorded Client Recorded Date Recorded By Document 11/09/24 10:49 NC [id number] 11/09/24 10:56 NC 11/09/24 10:49 Wound Center Nurse 1 #1- SACRAL -Current Size (cm) - Length 1.1 -Current Size (cm) - Width 0.4 -Current Size (cm) - Depth 0.4 -Total Square Cm 0.44 -Date of Last Picture (Recall this 11/09/24 field) -Photo Taken Yes -Epithelialization None Present -Tunneling No -Undermining/Tunneling No -Circular Undermining No -Exudate Amt None Present -Wound Margin Flat & Intact -Granulation Amt None Present (0 %) -Slough/Fibrin No -Structure Exposed N/A -Texture (Tsering-wound Skin Appearance) No Abnormality -Moisture (Tsering-wound Skin Appearance) No Abnormality -Color (Tsering-wound Skin Appearance) No Abnormality -Temperature (Tsering-wound Skin No Abnormality Appearance) (Pt Warm) -Tenderness on Palpation (Tsering-wound No Skin Appearance) -Ulcer Cleansing Soap and Water -Foul Odor after Cleansing No -Anesthetic Used 5% Lidocaine Gel Lower Limb Edema Present NA WC - Nurse 2 - General Ulcer CM Notes Start: 11/09/24 10:49 Freq: Status: Active Protocol: Activity Type Activity Date Activity User E-sign Co-sign Detail Recorded Client Recorded Date Recorded By Document 11/09/24 11:14 [id number] 11/09/24 11:15 11/09/24 11:14 Wound Center Nurse 2 #1- SACRAL -Time 11:14 -Correct Patient Yes -Correct Side, Site, Position Yes -Correct Procedure Yes -Procedure Performed Yes -Type of Procedure Debridement -Clinical Debridement Subcutaneous -Tissue Removed Subcutaneous -Post Debridement (cm) - Length 0.8 -Post Debridement (cm) - Width 0.5 -Post Debridement (cm) - Depth 0.9 -Total Square (Post) (cm) 0.40 -Area of Debridement (cm) - Length 0.8 -Area of Debridement (cm) - Width 0.5 -Total Square (Area) (cm) 0.40 -Tunneling No -Undermining/Tunneling No -Circular Undermining No -Wound/Ulcer Outcome Not Healed -Ulcer Cleansing Rinsed/ Irrigated with Saline -Foul Odor after Cleansing No -Bioengineered Tissue No -Bleeding Controlled with Pressure -Treatment Response Procedure Tolerated Well -Debridement - Subq, 1st 20sq cm Yes Pain Scale: 0-10 Numeric Is Patient Pain Free? Yes - Nurse 3 - General Ulcer D/C NN Start: 11/09/24 10:49 Freq: Status: Active Protocol: Activity Type Activity Date Activity User E-sign Co-sign Detail Recorded Client Recorded Date Recorded By Document 11/09/24 11:39 CP 11/09/24 11:40 CP 11/09/24 11:39 Wound Care Center Nurse 3 #1- SACRAL -Ulcer Cleansing Rinsed/ Irrigated with Saline -Foul Odor after Cleansing No -Primary Dressing Applied Aquacel Extra -Other Dressing adaptic -Primary Dressing Covered/Secured with Dry Gauze, Secured with Tape -Aquacel Extra 1 Pain Scale: 0-10 Numeric Is Patient Pain Free? Yes - Visit Discharge Discharge Condition Stable Ambulatory Status Ambulatory Clinical Summary of Care Provided Yes Facility Type Home Health Orders Sent Yes Assessment/Plan Assessment/Plan (1) Sacral decubitus ulcer, stage IV: CODE(S): L89.154 - Pressure ulcer of sacral region, stage 4 (2) Debility: CODE(S): R53.81 - Other malaise (3) History of stroke: CODE(S): Z86.73 - Personal history of transient ischemic attack (TIA), andcerebral infarction without residual deficits (4) Decubitus ulcer of sacral area: CODE(S): L89.159 - Pressure ulcer of sacral region, unspecified stage PLAN: Plan Debridement done as documented above, procedure was well-tolerated. No new concerns reported at this time. Similar depth to last visit. On chart review, significant depth change following switch from Aquacel to iodoform. Discontinueiodoform and revert to Aquacel extra. Change daily to twice daily depending on drainage. Cover with foam dressing. Moisturize area of surrounding irritation, Vaseline recommended for now. Continue offloading and adequate protein intake. Son is concerned about elevated blood glucose but no diagnosis of diabetes mellitus, A1c ordered, will review. No recent labs, CBC, CMP, ESR, CRP and prealbumin level ordered. Sacral x-ray also ordered due to chronicity and ulcer probes to bone, will be beneficial to rule out osteomyelitis. His questions were answered and he was advised to let us know if he has any further questions or concerns. Follow-up in a week or sooner if needed. This note was generated with [employer] dictation software. It may contain incorrectwords, spelling, and punctuation that were not noted in checking the note beforesigning. 11/09/24 1335 <Electronically signed by Catarino Dominguez MD> Cosigner Signature (if applicable): CC: ~ Signed [facility] Work Phone: [phone]) [phone] Progress note [facility] [address] [place] [address] Progress Note - Wound Care 11/09/24 1206 MR#: [id number] Acct: [id number] Name: DALIA LOPEZ Rep #:[id number] : 1950 74 From: Catarino santiago MD PCP: Dr. Lenin Bhatt MD Status:R EG RCR Location: History of Present Illness Date of Service: 11/09/24 Chief Complaint: Non healing sacral ulcer History of Wound: Patient is a 74 year female who presents to the wound center for evaluation of chiqui sacral ulcer and a left ischial ulcer. She was recently hospitalized for UTI/and acute kidney disease. She has a history of HTN, hyperlipidemia, seizure disorder, hypothyroidism, debility. Left ischial ulcer from pressure. The sacral ulcer is in the area of previous ulcer that healed last year. She denies fever, chills, nausea and vomiting. She is accompanied today with her son. She has home health. She sleeps on a couch. She states that she is unsure if a bed would fit into her bedroom due to it being so small. Today denies fever, chills, nausea and vomiting. Progress of Wound: No new concerns reported at this time. Here with her son, no drainage or concerns during dressing changes reported. Objective Data Objective Data Vital Signs: Vital Signs Temp Pulse Resp BP O2 Del Method 98.0 F 87 18 146/55 H Room Air 11/09/24 10:49 11/09/24 10:49 11/09/24 10:49 11/09/24 10:49 11/09/24 10:49 Oxygen Delivery Method Room Air Weight: 5 lb 4 oz Body Mass Index (BMI) 0.0 Charges/Coding Procedures Integumentary 111xxx-113xx: [id number] Maria M subq tissue 20 sq cm/< Physical Exam Const alert and no apparent distress General Appearance: cooperative and comfortable HEENT normocephalic and head/scalp atraumatic Eyes EOMs intact bilaterally Neck full ROM and supple Resp normal respiratory effort Effort and Inspection: able to speak in complete sentences Skin Wounds: wounds noted size Size: See clinical note, bed other Not entirely visualized due to location , margins well approximated, no odor, open and surrounding erythema Neuro oriented x3, CN's II-XII intact bilaterally and moves all extremities Psych mental status grossly normal, thought process normal and cooperative Debridement Note Debridement Note Wound debrided: Sacral Type of Debridement: Excisional debridement Anesthesia Used: 5% Lidocaine Gel Depth: Down to and including healthy tissue and in the subcutaneous layer Percentage of wound debrided: 100 Instrument Used: 3mm curette Tissue Removed: Devitalized tissue Severity: Fat Layer Exposed Amount of bleeding with debridement: Mild Bleeding Controlled with: Pressure Patient tolerated procedure: Patient tolerated procedure well Post-Debridement Measurements and Additional Note: Post-Debridement Measurements/Treatment [place] - Nurse 1 - General Ulcer Assessment Start: 11/09/24 10:49 Freq: Status: Active Protocol: WC.LOWEXT Activity Type Activity Date Activity User E-sign Co-sign Detail Recorded Client Recorded Date Recorded By Document 11/09/24 10:49 NC [id number] 11/09/24 10:56 NC 11/09/24 10:49 - Today's Visit Information Type of service Follow-up Visit (Physician/[employer]CE [employer]ION [employer]KER HAND ) Arrival Mode Ambulatory Accompanied by son Patient Identification Verified (Name & Yes ) Safety Precautions Fall Prevention Height and Weight Body Mass Index (BMI) 0.0 BMI Classification Underweight Vital Signs Temperature (97.8 F-99.1 F) 98.0 F Temperature Source Temporal Pulse Rate (60-100) 87 Pulse Location Monitor Respiratory Rate (12-18) 18 Respiratory rate source Observation Oxygen Delivery Method Room Air Blood Pressure (90/60-120/80) 146/55 H Blood Pressure Mean (mm Hg) 85 Source Monitor Position Sitting Blood Pressure Location Right Arm History Since Last Visit- (Skip if this is Patient's initial visit) Has dressing in place as prescribed Yes Has compression in place as prescribed Yes Has offloadiing in place as prescribed Yes Experienced any changes in pain level or Yes management Left Footwear Regular Shoe Right Footwear Regular Shoe Pain Scale: 0-10 Numeric Is Patient Pain Free? Yes - Nurse 1 - General Ulcer Measurement Start: 11/09/24 10:49 Freq: Status: Active Protocol: Activity Type Activity Date Activity User E-sign Co-sign Detail Recorded Client Recorded Date Recorded By Document 11/09/24 10:49 NC [id number] 11/09/24 10:56 NC 11/09/24 10:49 Wound Center Nurse 1 #1- SACRAL -Current Size (cm) - Length 1.1 -Current Size (cm) - Width 0.4 -Current Size (cm) - Depth 0.4 -Total Square Cm 0.44 -Date of Last Picture (Recall this 11/09/24 field) -Photo Taken Yes -Epithelialization None Present -Tunneling No -Undermining/Tunneling No -Circular Undermining No -Exudate Amt None Present -Wound Margin Flat & Intact -Granulation Amt None Present (0 %) -Slough/Fibrin No -Structure Exposed N/A -Texture (Tsering-wound Skin Appearance) No Abnormality -Moisture (Tsering-wound Skin Appearance) No Abnormality -Color (Tsering-wound Skin Appearance) No Abnormality -Temperature (Tsering-wound Skin No Abnormality Appearance) (Pt Warm) -Tenderness on Palpation (Tsering-wound No Skin Appearance) -Ulcer Cleansing Soap and Water -Foul Odor after Cleansing No -Anesthetic Used 5% Lidocaine Gel Lower Limb Edema Present NA - Nurse 2 - General Ulcer CM Notes Start: 11/09/24 10:49 Freq: Status: Active Protocol: Activity Type Activity Date Activity User E-sign Co-sign Detail Recorded Client Recorded Date Recorded By Document 11/09/24 11:14 [id number] 11/09/24 11:15 11/09/24 11:14 Wound Center Nurse 2 #1- SACRAL -Time 11:14 -Correct Patient Yes -Correct Side, Site, Position Yes -Correct Procedure Yes -Procedure Performed Yes -Type of Procedure Debridement -Clinical Debridement Subcutaneous -Tissue Removed Subcutaneous -Post Debridement (cm) - Length 0.8 -Post Debridement (cm) - Width 0.5 -Post Debridement (cm) - Depth 0.9 -Total Square (Post) (cm) 0.40 -Area of Debridement (cm) - Length 0.8 -Area of Debridement (cm) - Width 0.5 -Total Square (Area) (cm) 0.40 -Tunneling No -Undermining/Tunneling No -Circular Undermining No -Wound/Ulcer Outcome Not Healed -Ulcer Cleansing Rinsed/ Irrigated with Saline -Foul Odor after Cleansing No -Bioengineered Tissue No -Bleeding Controlled with Pressure -Treatment Response Procedure Tolerated Well -Debridement - Subq, 1st 20sq cm Yes Pain Scale: 0-10 Numeric Is Patient Pain Free? Yes - Nurse 3 - General Ulcer D/C NN Start: 11/09/24 10:49 Freq: Status: Active Protocol: Activity Type Activity Date Activity User E-sign Co-sign Detail Recorded Client Recorded Date Recorded By Document 11/09/24 11:39 CP 11/09/24 11:40 CP 11/09/24 11:39 Wound Care Center Nurse 3 #1- SACRAL -Ulcer Cleansing Rinsed/ Irrigated with Saline -Foul Odor after Cleansing No -Primary Dressing Applied Aquacel Extra -Other Dressing adaptic -Primary Dressing Covered/Secured with Dry Gauze, Secured with Tape -Aquacel Extra 1 Pain Scale: 0-10 Numeric Is Patient Pain Free? Yes - Visit Discharge Discharge Condition Stable Ambulatory Status Ambulatory Clinical Summary of Care Provided Yes Facility Type Home Health Orders Sent Yes Assessment/Plan Assessment/Plan (1) Sacral decubitus ulcer, stage IV: CODE(S): L89.154 - Pressure ulcer of sacral region, stage 4 (2) Debility: CODE(S): R53.81 - Other malaise (3) History of stroke: CODE(S): Z86.73 - Personal history of transient ischemic attack (TIA), andcerebral infarction without residual deficits (4) Decubitus ulcer of sacral area: CODE(S): L89.159 - Pressure ulcer of sacral region, unspecified stage PLAN: Plan Debridement done as documented above, procedure was well-tolerated. No new concerns reported at this time. Similar depth to last visit. On chart review, significant depth change following switch fromAquacel to iodoform. Discontinueiodoform and revert to Aquacel extra. Change daily to twice daily de pending on drainage. Cover with foam dressing. Moisturize area of surrounding irritation, Vaseline recommended for now. Continue offloading and adequate protein intake. Son is concerned about elevated blood glucose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 07/05/2024 4:29 PM EST Raj Hearn APRN.JUSTICE [facility]11-06-2024 Telephone encounter Note* Telephone Encounter - Edmund Gomes, RN - 07/05/2024 3:26 PM EST Bettie, health and safety coordinator @ [facility] calling for verbal okay for delay of care. PT/ST will see patient on 07/10/24 per patient request. # [phone]. Edmund Gomes, RN [facility]11-06-2024 Telephone encounter Note* Telephone Encounter - Elmira Tam LPN - 07/05/2024 3:14 PM EST Left a message for Darius to call the office. Elmira Tam LPN [facility]11-05-2024 Telephone encounter Note* Telephone Encounter - Sheila Munoz LPN - 07/04/2024 2:10 PM EST Left message for Nurse to call office and speak to nurse. Sheila Munoz LPN [facility]11-05-2024 Telephone encounter Note* Telephone Encounter - Moira Hearn APRN.CNP - 07/04/2024 1:22 PM EST They will need to find out from insurance what nutrition supplement drinks are covered Moira Hearn APRN.JUSTICE [facility]11-05-2024 Telephone encounter Note* Telephone Encounter - Magdalena Graham LPN - 07/04/2024 10:09 AM EST Darius with [facility] Nursing is calling to report she is with pt today and reviewing medication list from hospital discharge to pt's [facility] med list. Darius is asking for the followin) Order for inhaler 2) The hospital discharged pt with an order for Yariel-supplement because pt has wounds. Insurance will not cover Yariel and Darius is asking for something comparable. Pharmacy updated. Magdalena rGaham LPN [facility]11-04-2024 Telephone encounter Note* Telephone Encounter - Gloria Martinez RN - 07/03/2024 2:27 PM EST [facility] called and is notified of providers message. She voices understanding and will put in orders. Gloria Martinez RN [facility]11-04-2024 Miscellaneous Notes* Telephone Encounter - Gloria Martinez RN - 07/03/2024 2:27 PM EST [facility] called and is notified of providers message. She voices understanding and will put in orders. Gloria Martinez RN * Telephone Encounter - Moira Hearn APRN.CNP - 07/03/2024 1:34 PM EST PCP agrees and will follow Moira Hearn APRN.JUSTICE * Telephone Encounter - Sherrie Guadarrama RN - 07/03/2024 9:31 AM EST [facility]- reports pt will be d/c'd today from [facility] TCU to home w/son, with orders for [facility] PT OT ST SN. Dx: Acute Kidney Injury and effects from previous stroke. Asking if pcp is willing to follow? Please phone [facility] with verbal: [phone] documented in this encounterA[facility]11-04-2024 Telephone encounter Note * Telephone Encounter - Moira Hearn APRN.CNP - 07/03/2024 1:34 PM EST PCP agrees and will follow Moira Hearn APRN.[employer] [facility]11-04-2024 Telephone encounter Note* Telephone Encounter - Sherrie Guadarrama RN - 07/03/2024 9:31 AM EST Bettie- [facility]- reports pt will be d/c'd today from [facility] TCU to home w/son, with orders for C PT OT [facility]. Dx: Acute Kidney Injury and effects from previous stroke. Asking if pcp is willing to follow? Please phone [facility] with verbal: [phone] [facility]11-01-[facility]24 [facility] Department [address] [place] [id number] Discharge Summary 06/30/24 1356 MR#: [id number] Acct: [id number] Name: DALIA LOPEZ Rep #: [id number] : 1950 73 From: Kevon Eaton MD PCP: Dr. Lenin Bhatt MD Status:ADM IN Location: [place] [address] Providers Date of Admission: 06/21/24 Primary Care Physician: Dr. Lenin Bhatt MD Consultations 06/21/24 13:07 Consult: Onc/Wound/outsole handler Routine Comment: Reason For Visit: FALL AND WEAKNESS Diagnosis Discharge Diagnosis (1) Debility: Status: Acute Code(s): R53.81 - Other malaise (2) Urinary tract infection: Status: Acute Code(s): N39.0 - Urinary tract infection, site not specified (3) [place] (acute kidney injury): Status: Resolved Code(s): N17.9 - Acute kidney failure, unspecified (4) Sacral decubitus ulcer, stage III: Status: Acute Code(s): L89.153 - Pressure ulcer of sacral region, stage 3 (5) Hyperlipemia: Status: Acute Code(s): E78.5 - Hyperlipidemia, unspecified (6) CAD (coronary artery disease): Status: Acute Code(s): I25.10 - Atherosclerotic heart disease of [place] coronary artery without angina pectoris (7) Seizure disorder: Status: Acute Code(s): G40.909 - Epilepsy, unspecified, not intractable, without status epilepticus (8) Hypothyroid: Status: Acute Code(s): E03.9 - Hypothyroidism, unspecified (9) Depression: Status: Acute Code(s): F32.9 - Major depressive disorder, single episode, unspecified (10) Essential (primary) hypertension: Status: Acute Code(s): I10 - Essential (primary) hypertension (11) Stroke: Status: Acute Code(s): I63.9 - Cerebral infarction, unspecified (12) Chronic heart failure with preserved ejection fraction (HFpEF): Status: Acute Code(s): I50.32 - Chronic diastolic (congestive) heart failure Plan 73 year old female with below past medical history hospitalized for failure to thrive 2/2 urinary tract infection, acute kidney injury, iron deficiency anemia, admitted to TCU with debility, here for rehabilitation, strengthening, prior to discharge home with children. * Debility - PT/OT. * Pain - Tylenol 1000mg q6 prn pain (1-5), Tylenol #3 1 tablet qhs prn pain (6-10). * Bowel - senna/colace 1 tablet bid, Magnesium citrate 300mL po daily prn. * Adult immunization - Administer pneumonia vaccine, covid vaccine, flu vaccine as appropriate. * DVT prophylaxis - Hold, on dual antiplatelet therapy. * Shortness of breath - Albuterol 2 puffs q4 prn * Coronary artery disease - Coreg 12.5mg bid, Plavix 75mg daily, Aspirin 81mg daily. * Stroke - Plavix 75mg daily, Aspirin 81mg daily. * Hyperlipidemia - Atorvastatin 20mg qhs. * Chronic HFpEF - Coreg 12.5mg bid, Aldactone 25mg daily, Furosemide 20mg daily. * Iron deficiency anemia - Ferrous Gluconate 324mg daily. * Seizure disorder - Keppra 500mg bid. * Hypothyroidism - Levothyroxine 50mcg daily. * Nutrition - MVI 1 tablet daily. * Depression - Sertraline 150mg qhs, stable chronic retirement use, GDR not recommended. Medications at Discharge Home Medications atorvastatin 20 mg tablet 20 mg PO QHS cholesterol 08/17/18 clopidogrel 75 mg tablet 75 mg PO DAILY anti platelet 08/17/18 levetiracetam 500 mg tablet 500 mg PO BID seizures 08/17/18 levothyroxine 50 mcg tablet 50 mcg PO DAILY Thyroid 08/17/18 sertraline 100 mg tablet 150 mg PO QHS depression 08/17/18 aspirin 81 mg tablet,delayed release 81 mg PO DAILY@0800 heart health 08/28/20 carvedilol 12.5 mg tablet 12.5 mg PO BID heart 08/28/20 multivitamin-iron 9 mg-folic acid 400 mcg-calcium and minerals tablet 1 tab PO DAILY supplement 08/28/20 furosemide 20 mg tablet 20 mg PO DAILY diuretic 03/25/23 spironolactone 25 mg tablet (Aldactone) 25 mg PO DAILY diuretic 03/25/23 acetaminophen 300 mg-codeine 30 mg tablet 1 tab PO QHS PRN pain 06/17/24 albuterol sulfate 90 mcg/actuation aerosol inhaler (Ventolin HFA) 2 inh inhalation Q4H PRN shortness of breath or wheezing 06/17/24 ferrous gluconate 324 mg (38 mg iron) tablet 324 mg PO DAILY Supplement #1 TAB 06/21/24 arginine 7 gram-glutam 7 gram-CaHMB 1.5 [id number]-min oral pwd pkt (Yariel (with collagen)) 1 packet PO BIDCM 30 days #60 ea 06/30/24 Hospital Course Operations None Procedures None Summary of Care Provided Minutes Spent on Discharge: 35 Hospital Course: 73 year old female with below past medical history hospitalized for failure to thrive 2/2 urinary tract infection, acute kidney injury, iron deficiency anemia, admitted to TCU with debility, here for rehabilitation, strengthening, prior to discharge home with children. Discharge home with son 07/03/2024, [facility] PT/OT/ST/SN, 15 hrs/wk of [employer] thru waiver. Physical Exam Const alert General Appearance: cooperative HEENT normocephalic Eyes PERRL and EOMs intact bilaterally Neck supple, no JVD (more content not included)...[facility] 06-21-2024 [facility] Medical Records Department [address] [place] [address] Discharge Summary 06/21/24 1756 MR#: [id number] Acct: [id number] Name: DALIA LOPEZ Rep #: [id number] : 1950 73 From: Eric Bay MD PCP: Dr. Lenin Bhatt MD Status:DIS IN Location: [place] [address] Providers Date of Admission: 06/17/24 Primary Care Physician: Dr. Lenin Bhatt MD Consultations 06/17/24 15:25 Consult: Onc/Wound/outsole handler Routine Comment: Reason For Visit: FALL WEAKNESS Diagnosis Discharge Diagnosis (1) THEODORE (acute kidney injury): Status: Acute Code(s): N17.9 - Acute kidney failure, unspecified Medications at Discharge Home Medications atorvastatin 20 mg tablet 20 mg PO QHS cholesterol 08/17/18 clopidogrel 75 mg tablet 75 mg PO DAILY anti platelet 08/17/18 levetiracetam 500 mg tablet 500 mg PO BID seizures 08/17/18 levothyroxine 50 mcg tablet 50 mcg PO DAILY Thyroid 08/17/18 sertraline 100 mg tablet 150 mg PO QHS depression 08/17/18 aspirin 81 mg tablet,delayed release 81 mg PO DAILY@0800 heart health 08/28/20 carvedilol 12.5 mg tablet 12.5 mg PO BID heart 08/28/20 multivitamin-iron 9 mg-folic acid 400 mcg-calcium and minerals tablet 1 tab PO DAILY supplement 08/28/20 lisinopril 5 mg tablet 5 mg PO QHS bp ##0 08/31/20 albuterol sulfate 2.5 mg/3 mL (0.083 %) solution for nebulization 1.25 mg inhalation Q6H PRN shortness of breath or wheezing 03/25/23 furosemide 20 mg tablet 20 mg PO DAILY diuretic 03/25/23 spironolactone 25 mg tablet (Aldactone) 25 mg PO DAILY diuretic 03/25/23 ibuprofen 400 mg tablet 400 mg PO Q6H PRN pain 30 days #120 tabs 06/12/24 acetaminophen 300 mg-codeine 30 mg tablet 1 tab PO QHS PRN pain 06/17/24 albuterol sulfate 90 mcg/actuation aerosol inhaler (Ventolin HFA) 2 inh inhalation Q4H PRN shortness of breath or wheezing 06/17/24 ferrous gluconate 324 mg (38 mg iron) tablet 324 mg PO DAILY Supplement #1 TAB 06/21/24 Hospital Course Operations None Procedures None Summary of Care Provided Minutes Spent on Discharge: 36 Hospital Course: Per HPI: DALIA LOPEZ, is a 73 F who presents to the hospital after repeat fall. She was seen about 5 days ago after she had a fall at home and her son brought her in, she was evaluated at that time and may have had a borderline UTI, no cultures were done but she was started on Cipro p.o. twice daily. After x-rays were obtained that showed no fracture or injury, she was discharged home. She presents today after having another mechanical fall at home and just having increased weakness. Imaging studies today did not demonstrate any fractures however does demonstrate an THEODORE. Her Lasix and lisinopril have been discontinued on admission she will be started on IV fluids. A urinalysis is pending to see if there continues to be the possibility of a UTI and if so we will obtain a urine culture. Hospital Course: 1. Weakness and debility with inability to complete ADLs with failure to thrive and THEODORE/iron deficiency anemia???73-year-old female presented to the hospital after having multiple falls at home. Initially she was thought to have a UTI however urine culture was not obtained during her ER visit she was just placed on Cipro, repeat UA was obtained but did not show significant signs of UTI so she just completed her Cipro course from her previous ER visit. She was found to have a little bit of an THEODORE though on discharge her creatinine was 1.17 down from 1.84 on admission. She was placed on IV fluids and encouraged to have p.o. intake. She was evaluated by PT and OT and felt that she would benefit from SNF placement. Of note she also had iron studies that demonstrate an iron of 25 with saturation of 7.9 and a ferritin of 16, she was provided with multiple doses of IV iron and discharged on oral iron. I discussed with her the plan for discharge today she expressed understanding the risk benefits going home and would like to go home today. 2. Essential hypertension, hyperlipidemia, seizure disorder, hypothyroidism are all chronic medical conditions which complicate her care. Her home medications were continued where appropriate Physical Exam Narrative General: Alert, Oriented x3, Cooperative, No apparent distress HEENT: Atraumatic, PERRLA, EOMI, Normocephalic Oral: Moist Mucosa Neck: Supple, No JVD Lungs: Diminished, Normal air movement, No rhonchi, No wheeze, No rales Cardiovascular: Regular rate, Regular Rhythm, Normal S1, Normal S2, No murmurs Abdomen: Soft, Non Tender, Non-Distended, No Hepato-splenomegaly Extremities: No edema, Capillary Refill Less than 3 Seconds Skin: No rashes Musculoskeletal: Right hip tenderness to palpation no fracture Neurological: No focal neurological deficits, Motor Exam 5/5 strength throughout, Sensory exam intact to light touch and pain Psych/Mental Status: Normal Affec (more content not included)...[facility]10-23-2024 [facility] Medical Records Department [address] [place] [id number] History Physical Exam 06/21/24 1256 MR#: [id number] Acct: [id number] Name: DALIA LOPEZ Rep #: [id number] : 1950 73 From: Kevon Eaton MD PCP: Dr. Lenin Bhatt MD Status:ADM IN Location: [place] [address] HPI - General General Date of Admission: 06/21/24 Date of Service: 06/21/24 Chief Complaint: Here for rehabilitation. HPI Narrative 06/17/2024 DALIA LOPEZ, is a 73 F who presents to [facility] ED with fall, head injury. Fell off couch, hit head on end table, no LOC. Slight headache, mild right hip pain, usually walks with walker. CT brain showed old prior stroke, CT cervical spine showed degenerative changes. X-ray pelvis negative, X-ray right hip negative. Unable to walk. 06/17/2024 Admit [facility]. PT/OT Debility. IV fluids, hold Lisinopril, Hold Lasix, Hold Aldactone for acute kidney injury. Wound nurse for pressure ulcers. 06/18/2024 Doing well, no overnight issues. Finish Cipro course for urinary tract infection. 06/19/2024 Feels better. Creatinine improved from 1.84 to 1.17. Venofer IV for iron deficiency anemia. 06/20/2024 Doing well. Creatinine 1.04. PT/OT SNF. 06/21/2024 Admit to TCU with debility, here for rehabilitation, strengthening, prior to discharge home. [facility] Medical History (Updated 06/21/24 @ 13:[address] Kevon Eaton MD) Hypothyroid Depression CAD (coronary artery disease) Hyperlipemia Debility Sacral decubitus ulcer, stage III History of stroke HTN (hypertension) Seizure COVID-19 Iron deficiency anemia Heart failure Vertigo Home Medications ???Medication ???Instructions ???Recorded ???Last Taken ???Type atorvastatin 20 mg tablet 20 mg PO QHS cholesterol 08/17/18 06/16/24 History clopidogrel 75 mg tablet 75 mg PO DAILY anti platelet 08/17/18 06/16/24 History levetiracetam 500 mg tablet 500 mg PO BID seizures 08/17/18 06/16/24 History levothyroxine 50 mcg tablet 50 mcg PO DAILY Thyroid 08/17/18 06/16/24 History sertraline 100 mg tablet 150 mg PO QHS depression 08/17/18 06/16/24 History aspirin 81 mg tablet,delayed 81 mg PO DAILY@0800 heart health 08/28/20 06/16/24 History release carvedilol 12.5 mg tablet 12.5 mg PO BID heart 08/28/20 06/16/24 History multivitamin-iron 9 mg-folic acid 1 tab PO DAILY supplement 08/28/20 06/16/24 History 400 mcg-calcium and minerals tablet lisinopril 5 mg tablet 5 mg PO QHS bp ##0 08/31/20 06/16/24 Rx albuterol sulfate 2.5 mg/3 mL 1.25 mg inhalation Q6H PRN 03/25/23 06/16/24 History (0.083 %) solution for nebulization shortness of breath or wheezing furosemide 20 mg tablet 20 mg PO DAILY diuretic 03/25/23 06/16/24 History spironolactone 25 mg tablet 25 mg PO DAILY diuretic 03/25/23 06/16/24 History (Aldactone) ibuprofen 400 mg tablet 400 mg PO Q6H PRN pain 30 days 06/12/24 06/21/24 Rx #120 tabs acetaminophen 300 mg-codeine 30 mg 1 tab PO QHS PRN pain 06/17/24 06/16/24 History tablet albuterol sulfate 90 mcg/actuation 2 inh inhalation Q4H PRN shortness 06/17/24 06/16/24 History aerosol inhaler (Ventolin HFA) of breath or wheezing ferrous gluconate 324 mg (38 mg 324 mg PO DAILY Supplement #1 TAB 06/21/24 Unknown Rx iron) tablet Allergy/AdvReac Type Severity Reaction Status Date / Time No Known Allergies Allergy Verified 06/17/24 10: Family History Other Cancer Kidney disease Surgical History H/O hysterectomy with oophorectomy Social History (Updated 06/21/24 @ 13:[address] Kevon Eaton MD) household members: children housing: house current occupational status: retired Smoking Status: Former smoker alcohol intake: never substance use type: does not use ROS Constitutional Constitutional: Reports weakness; Denies chills, fever(s) or weight gain ENT HEENT: Denies headache(s), nasal congestion or nasal discharge Cardiovascular Cardiovascular: Denies chest pain or palpitations Respiratory/Chest Respiratory/Chest: Denies cough, excessive phlegm production or shortness of breath with exertion Gastrointestinal Gastrointestinal: Denies abdominal pain, nausea or vomiting Genitourinary Genitourinary: Denies dysuria Musculoskeletal Musculoskeletal: Denies joint pain or joint swelling Integumentary Integumentary: Denies rash or wounds Neurologic Neurologic: Denies focal weakness, numbness or tingling Psychiatric Psychiatric: Denies anxiety, auditory hallucinations, depression, homicidal ideation or suicidal ideation Physical Exam Const alert General Appearance: cooperative HEENT normocephalic Eyes PERRL and EOMs intact bilaterally Neck supple, no JVD and no carotid bruits Resp normal respiratory effort, nor (more content not included)...[facility]10-[facility] Telephone encounter Note* Telephone Encounter - Lenin Bhatt MD - 06/19/2024 3:22 PM EDT Okay. H&P noted. [facility]10-21-2024 Miscellaneous Notes* Telephone Encounter - Lenin Bhatt MD - 06/19/2024 3:22 PM EDT Okay. H&P noted. * Telephone Encounter - Grace Johnston LPN - 06/19/2024 9:54 AM EDT Patient tammy Patel calling mother had fall in the home and was taken to [facility]. she was admitted kidney function problems, taken off Spironolactone. Not sure when she will be discharged. documented in this encounterA[facility]10[facility] Telephone encounter Note * Telephone Encounter - Grace Johnston LPN - 06/19/2024 9:54 AM EDT Patient tammy Patel calling mother had fall in the home and was taken to [facility]. she was admitted kidney function problems, taken off Spironolactone. Not sure when she will be discharged. [facility]10-14-2024 Telephone encounter Note* Telephone Encounter - Franchesca Castro LPN - 06/12/2024 3:36 PM EDT Prescription Refill Information The patient has been [...] Castro LPN June 12, 2024 3:36 PM [facility]10-14-2024 Miscellaneous Notes* Telephone Encounter - Franchesca Castro LPN - 06/12/2024 3:36 PM EDT Prescription Refill Information The patient has been [...] 12, 2024 3:36 PM documented in this encounterA[facility]10-[facility] Telephone encounter Note * Telephone Encounter - Kenya Barroso RN - 06/12/2024 11:41 AM EDT Son (William) calls to report that patient had a fall a few days ago with worsening pain. He reportstoday that she is having severe pain and unable to ambulate or dress herself. William is going to call an ambulance to have her taken to [facility] ER for evaluation/treatment. Appointment for today cancelled and William will reschedule once patient is seen in ER. Kenya Barroso RN [facility]10-14-2024 Miscellaneous Notes* Telephone Encounter - Kenya Barroso RN - 06/12/2024 11:41 AM EDT Son (William) calls to report that patient had a fall a few days ago with worsening pain. He reportstoday that she is having severe pain and unable to ambulate or dress herself. William is going to call an ambulance to have her taken to [facility] ER for evaluation/treatment. Appointment for mey cancelled and William will reschedule once patient is seen in ER. Kenya Barroso RN documented in this encounterA[facility]10-10-2024 Telephone encounter Note * Telephone Encounter - Lenin Bhatt MD - 06/08/2024 1:20 PM EDT The following approved medication requests have been transmitted electronically. Requested Prescriptions Signed Prescriptions Disp Refills acetaminophen-codeine (TYLENOL-COD #3) 300-30 mg per tablet 30 tablet 0 Sig: Take 1 tablet by mouth at bedtime as needed for pain for up to 30 days. Authorizing Provider: LENIN BHATT MD [facility]10-10-2024 Miscellaneous Notes* Telephone Encounter - Lenin Bhatt MD - 06/08/2024 1:20 PM EDT The following approved medication requests have been transmitted electronically. Requested Prescriptions Signed Prescriptions Disp Refills acetaminophen-codeine (TYLENOL-COD #3) 300-30 mg per tablet 30 tablet 0 Sig: Take 1 tablet by mouth at bedtime as needed for pain for up to 30 days. Authorizing Provider: LENIN BHATT MD * Telephone Encounter - Sheila Munoz LPN - 06/07/2024 8:20 AM EDT Patient has been identified by [...] you. Sheila Munoz LPN. documented in this encounterA[facility]10-[facility]-2024 Telephone encounter Note * Telephone Encounter - Sheila Munoz LPN - 06/07/2024 8:20 AM EDT Patient has been identified by [...] Please advise. Thank you. Sheila Munoz LPN. [facility]10-03-2024 Telephone encounter Note* Telephone Encounter - Rosette Lord LPN - 06/01/2024 11:43 AM EDT Unable to leave message, mailbox is full Patient has appointment on 06/09/[address] Bhatt. Rosette Lord LPN June 01, 2024 11:43 AM [facility]10-03-2024 Miscellaneous Notes* Telephone Encounter - Rosette Lord LPN - 06/01/2024 11:43 AM EDT Unable to leave message, mailbox is full Patient has appointment on 06/09/[address] Bhatt. Rosette Lord LPN June 01, 2024 11:43 AM * Telephone Encounter - Jo Moore MA - 05/24/2024 3:27 PM EDT Patient and son requesting in home PT and OT as it's hard for patient to leave the house. Pt will need home health to facilitate. Will need to notify patient to contact insurance to see which home health is in network. Jo Moore MA documented in this encounterA[facility]10-01-2024 Telephone encounter Note * Telephone Encounter - Sheila Munoz LPN - 05/30/2024 4:17 PM EDT Patient has been identified by [...] Please advise. Thank you. Sheila Munoz LPN. [facility]10-01-2024 Miscellaneous Notes* Telephone Encounter - Sheila Munoz LPN - 05/30/2024 4:17 PM EDT Patient has been identified by [...] you. Sheila Munoz LPN. documented in this encounterA[facility]09-25-2024 Telephone encounter Note * Telephone Encounter - Sheila Munoz LPN - 05/24/2024 3:43 PM EDT Patient to call. Sheila Munoz LPN [facility]09-25-2024 Miscellaneous Notes* Telephone Encounter - Sheila Munoz LPN - 05/24/2024 3:43 PM EDT Patient to call. Sheila Munoz LPN documented in this encounterAultman [facility]09-25-2024 Telephone encounter Note * Telephone Encounter - Jo Moore MA - 05/24/2024 3:27 PM EDT Patient and son requesting in home PT and OT as it's hard for patient to leave the house. Pt will need home health to facilitate. Will need to notify patient to contact insurance to see which home health is in network. Jo Moore MA [facility]09-25-2024 NoteHNO ID: [id number] Author: DEEPTI AUGUSTE MD Service: ? Author Type: Physician Type: Progress Notes Filed: 06/19/2024 17:29 Note Text: [facility] Initial Consult Dalia Lopez is a 73 year old year old female who comes for Comprehensive Geriatric Assessment. Pt accompanied by: Caregivers involved in care: HPI: This is a 73-year-old woman with a past medical history of aphasia as a late effect of cerebrovascular disease in 2016, seizure disorder after CVA, hypertension, peripheral vascular disease, ischemic cardiomyopathy, congestive heart failure, hypothyroidism, recurrent falls. Patient is here with her son. Son has been living with her for the past 9 months because he is a diabetic with a diabetic foot ulcer and he is unable to walk. He has noted to me that since he has been living with his mother for 9 months after being laid up he has noticed a lot of details about her. She had not been taking her medications consistently so he is now putting her pillboxes. She is forgetful and increasingly so. He is able to cook for herself but has been needing some supervision and prompting to do the rest of her IADLs. She also is a little unsteady with her gait. She used to go to [facility] prior to COVID but after COVID hit she is homebound, is more weaker, frailer, more unsteady with her gait, has been falling more. She also feels very withdrawn compared to her normal. In addition to this one of the main complaints to have his urinary incontinence. Any Family History of dementia? no Are you or your spouse a ? No Alzheimer's Questionnaire (Ruthie 2010) THE CAREGIVER REPORTS THAT THE PATIENT: - Has memory loss - Has trouble finding words other than names - Confuses names of family members or friends - Has difficulty recognizing familiar people THE CAREGIVER DENIES THAT THE PATIENT: - Has worse memory than a few years ago - Repeats questions, statements, or stories in the same day - Forgets appointments or needs caregiver to track events/appointments - Misplaces items more than once a month, or so that s/he cannot find them - Suspects others are moving/hiding/stealing items when s/he cannot find them - Frequently has trouble knowing the date, uses cues like newspaper or calendar more than once a day - Becomes disoriented in unfamiliar places - Becomes more confused outside the home or when traveling - Has difficulty handling money (e.g., calculating tips or change) - Has trouble handling bills or finances - Has trouble remembering to take medications - Has difficulty driving, or drives in way that concerns the caregiver, or has stopped driving - Has trouble using appliances - Has difficulty completing household tasks or repairs - Has significantly reduced recreational activities - Is getting lost in familiar surroundings - Has a decreased sense of direction Alzheimer's Questionnaire score = 6 (21/21 questions answered) Long-term Memory: Difficulty remembering distant events from the past like childhood, previous employment, wedding: YES Behavioral/personality: Withdrawn/Depressed: YES Crying spells: NO Anxious: YES History of aggression: NO History of irritability: NO Apathy:NO Recent changes in weight or appetite: YES Alcohol or Drug use: NO Smoking? NO Sleep: Do you snore loudly (louder than talking or loud enough to be heard through closed doors)? Was unable to give me any information Do you often feel tired, fatigued, or sleepy during daytime? Was unable to give me any information Has anyone observed you stop breathing during your sleep? Was unable to give me any information Are you restless when you sleep at night? Was unable to give me any information Do you have problems falling a sleep? Was unable to give me any information Do you have problems staying a sleep? Was unable to give me any information Psychosis: Hallucinations or delusions: NO Suicidal or homicidal ideations: NO Obsessions, compulsions, or hoarding: NO Safety: Does pt know his/her address? YES partially What would you do if there was a fire? run How would you call for help?911 Does he/she know 911? YES Are there any firearms in the home? NO If yes are they in a secure location? N/A Social History: Primary language: Romanian Marital Status: Living situation: Home w/ Family Socially engaged? (participates in activities such as clubs, christianity, community center, sports, games, visiting friends/relatives, etc?): NOused to go to [place] before covid hit but after that she does not want to go there. Caregiver [place] and Stress Are your feeling overwhelmed? NO Do you have concerns about your own health? NO Are you neglecting your own needs? NO Do you have financial concerns? NO Do your fear loss of employment? NO Do you have concerns about verbal/physical abuse? NO Do you feel that yo (more content not included)...[facility] 05-24-2024 History of Present illness Narrative* Deepti Auguste MD - 05/24/2024 2:09 PM EDT [facility] Initial Consult Dalia Lopez is a 73 year old year old female who comes for Comprehensive Geriatric Assessment. 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 Patient is here with her son. Son has been living with her for the past 9 months because he is a diabetic with a diabetic foot ulcer and he is unable to walk. He has noted to me that since he has been living with his mother for 9 months after being laid up he has noticed a lot of details about her.She had not been taking her medications consistently so he is now putting her pillboxes. She is forg etful and increasingly so. He is able to cook for herself but has been needing some supervision andprompting to do the rest of her IADLs. She also is a little unsteady with her gait. She used to go to [facility] prior to COVID but after COVID hit she is homebound, is more weaker, frailer, more unsteady with her gait, has been falling more. She also feels very withdrawn compared to her normal. In addition to this one of the main complaints to have his urinary incontinence. Any Family History of dementia? no Are you or your spouse a ? No Alzheimer's Questionnaire (Ruthie 2010) THE CAREGIVER REPORTS THAT THE PATIENT: - Has memory loss - Has trouble finding words other than names - Confuses names of family members or friends - Has difficulty recognizing familiar people THE CAREGIVER DENIES THAT THE PATIENT: - Has worse memory than a few years ago - Repeats questions, statements, or stories in the same day - Forgets appointments or needs caregiver to track events/appointments - Misplaces items more than once a month, or so that s/he cannot find them - Suspects others are moving/hiding/stealing items when s/he cannot find them - Frequently has trouble knowing the date, uses cues like newspaper or calendar more than once a day - Becomes disoriented in unfamiliar places - Becomes more confused outside the home or when traveling - Has difficulty handling money (e.g., calculating tips or change) - Has trouble handling bills or finances - Has trouble remembering to take medications - Has difficulty driving, or drives in way that concerns the caregiver, or has stopped driving - Has trouble using appliances - Has difficulty completing household tasks or repairs - Has significantly reduced recreational activities - Is getting lost in familiar surroundings - Has a decreased sense of direction Alzheimer's Questionnaire score = 6 (21/21 questions answered) Long-term Memory: Difficulty remembering distant events from the past like childhood, previous employment, wedding: YES Behavioral/personality: Withdrawn/Depressed: YES Crying spells: NO Anxious: YES History of aggression: NO History of irritability: NO Apathy:NO Recent changes in weight or appetite: YES Alcohol or Drug use: NO Smoking? NO Sleep: Do you snore loudly (louder than talking or loud enough to be heard through closed doors)? Was unable to give me any information Do you often feel tired, fatigued, or sleepy during daytime? Was unable to give me any information Has anyone observed you stop breathing during your sleep? Was unable to give me any information Are you restless when you sleep at night? Was unable to give me any information Do you have problems falling a sleep? Was unable to give me any information Do you have problems staying a sleep? Was unable to give me any information Psychosis: Hallucinations or delusions: NO Suicidal or homicidal ideations: NO Obsessions, compulsions, or hoarding: NO Safety: Does pt know his/her address? YES partially What would you do if there was a fire? run How would you call for help?911 Does he/she know 911? YES Are there any firearms in the home? NO If yes are they in a secure location? N/A Social History: Primary language: Romanian Marital Status: Living situation: Home w/ Family Socially engaged? (participates in activities such as clubs, christianity, community center, sports, games, visiting friends/relatives, etc?): NOused to go to [place] before covid hit but after that she does not want to go there. Caregiver [place] and Stress Are your feeling overwhelmed? NO Do you have concerns about your own health? NO Are you neglecting your own needs? NO Do you have financial concerns? NO Do your fear loss of employment? NO Do you have concerns about verbal/physical abuse? NO Do you feel that you are still capable of taking care of your relative? NO Are you willing to continue being in the caregiver role? NO B-ADLs: (I=independent,A=assistance,D=dependent) ?Bathing: I, Dressing: I, Toileting: I, Transferring:I, Continence: A, Feeding: I, (Ballesteros Index): I-ADLs: Ability to use phone: A, Shopping: D, Cooking: A, Housekeeping: A, Laundry: D, Transportation: stopped driving 5 years or more ago Medications: {A, son fills up the pill packs, she has tried to do it on her own but is not able to. Handle Finances: D. Son pays the bills for her since 2017 (Nestor scale): 8 PMHx: PAST MEDICAL HISTORY Diagnosis Date Abnormal stress test Acquired hypothyroidism 07/20/2016 Anxiety associated with depression 07/20/2016 Aphasia, late effect of cerebrovascular disease 07/20/2016 ASHD (arteriosclerotic heart disease) Bundle branch block, left CAD (coronary artery disease) Cardiomyopathy ([facility]) CHF (congestive heart failure) ([facility]) Chronic bronchitis, unspecified chronic bronchitis type ([facility]) 06/10/2023 COVID-19 08/28/2020 Current moderate episode of major depressive disorder ([facility]) 07/15/2021 Decubitus ulcer, stage 2 ([facility]) 09/15/2015 Essential hypertension 07/20/2016 Gram-negative sepsis, unspecified ([facility]) 09/15/2015 UTI HTN (hypertension) Hyperlipidemia 07/20/2016 Impaired fasting glucose 07/25/2016 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 Aramis Nielson, Neurology Seizure disorder ([facility]) 03/2013 Shortness of breath Stroke (cerebrum) ([facility]) 2015 recurrent Stroke ([facility]) 04/22/2013 aphasia,left facial droop PSHx: PAST SURGICAL HISTORY Procedure Laterality Date HERNIA REPAIR HX 1984 HYSTERECTOMY HX 12/02/2015 vag.hyst,[place] colpocleisis, sub urethral sling LEFT HEART CATH 12/20/2018 REM LESION NEC,HND,SCAL 2.1-3.0CM Right 09/19/2016 Removal right retroauricular nimesh cyst Home Meds: Prior to Admission medications : Medication acetaminophen-codeine (TYLENOL-COD #3) 300-30 mg per tablet, Sig Take 1 tablet by mouth at bedtime as needed for pain for up to 30 days., Start Date 04/19/24, End Date 05/24/24, Taking? Yes,Authorizing Provider Lenin Bhatt MD Medication atorvastatin (LIPITOR) 20 mg tablet, Sig Take 1 tablet by mouth once daily., Start Date 03/24/24, End Date , Taking? Yes, Authorizing Provider Lenin Bhatt MD Medication levETIRAcetam (KEPPRA) 500 mg tablet, Sig Take 0.5 tablets by mouth two times a day., Start Date 03/20/24, End Date , Taking? Yes, Authorizing Provider Lenin Bhatt MD Medication clopidogrel (PLAVIX) 75 mg tablet, Sig Take 1 tablet by mouth once daily., Start Date 12/09/23, End Date , Taking? Yes, Authorizing Provider Lenin Bhatt MD Medication levothyroxine (SYNTHROID) 50 mcg tablet, Sig Take 1 tablet by mouth once daily. on an empty stomach 1/2 hour before meal., Start Date 12/09/23, End Date , Taking? Yes, Authorizing Provider Lenin Bhatt MD Medication albuterol (PROVENTIL) 2.5 mg /3 mL (0.083 %) nebulizer solution, Sig Use 3 mL via nebulizer every 6 hours as needed for wheezing/shortness of breath. Use over 5-15minutes., Start Date 12/09/23, End Date , Taking? Yes, Authorizing Provider Lenin Bhatt MD Medication albuterol HFA (VENTOLIN HFA) 90 mcg/actuation inhaler, Sig Inhale 2 Puffs as instructed every 4 hours as needed for wheezing/shortness of breath., Start Date 12/09/23, End Date , Taking? Yes, Authorizing Provider Lenin Bhatt MD Medication furosemide (LASIX) 20 mg tablet, Sig take 1 tablet by mouth once daily if needed, Start Date 11/26/23, End Date , Taking? Yes, Authorizing Provider Jonathan Aguila MD Medication nystatin (MYCOSTATIN) powder, Sig Apply 1 application to affected area two times a day.,Start Date 09/29/23, End Date , Taking? Yes, Authorizing Provider Lenin Bhatt MD Medication aspirin, enteric coated (JOSE LOW DOSE ASPIRIN) 81 mg EC tablet, Sig Take 1 tablet by mouth once daily., Start Date 05/27/23, End Date , Taking? Yes, Authorizing Provider Tobias Bhatt MD Medication carvedilol (COREG) 12.5 mg tablet, Sig Take 1 tablet by mouth twice daily with meals., Start Date 05/27/23, End Date , Taking? Yes, Authorizing Provider Lenin Bhatt MD Medication multivitamin tablet, Sig Take 1 tablet by mouth once daily., Start Date 05/27/23, End Date , Taking? Yes, Authorizing Provider Lenin Bhatt MD Medication spironolactone (ALDACTONE) 25 mg tablet, Sig Take 1 tablet by mouth once daily., Start Date 05/27/23, End Date , Taking? Yes, Authorizing Provider Lenin Bhatt MD Medication sertraline (ZOLOFT) 100 mg tablet, Sig Take 1.5 tablets by mouth once daily., Start Date05/19/23, End Date , Taking? Yes, Authorizing Provider Moira Hearn, AMBULATORY ANALYST.[employer] Medication COMPOUNDED PRESCRIPTION, Sig Oxygen Portable tanks (D tanks with carry bag). O2 via nasal cannula at 2 LPM continuous. Dx: Heart failure, unspecified HF chronicity, unspecified heart failure type (HCC) - ICD9: 428.9, ICD10: I50.9 Acute on chronic respiratory failure with hypoxemia (HCC) - ICD9: 518.84, ICD10: J96.21 Pulse oximetry is 94% room air at rest. 85% with ambulation. 97% with O2 via NC at LPM., Start Date09/13/18, End Date , Taking? , Authorizing Provider Lenin Bhatt MD Medication COMPOUNDED PRESCRIPTION, Sig NEBULIZER FOR HOME USE. DX: CHF, bronchospasm., Start Date 09/13/18, End Date , Taking? , Authorizing Provider Lenin Bhatt MD Other OTC med/supplements: none Medication Review: - ANY HIGH RISK MEDICATIONS (STOPP CRITERIA): No, she is on keppra but she needs the medication ALLERGIES No Known Allergies Review of Systems Difficulty chew/swallow: no Pain: her legs are hurting her all the time for the past many years, from PVD. Tremor: no Incontinence - During the last 3 months did you leak urine? YES since her stroke in 2012 - Type?: urge incontinence Constipation/Change in bowel habits: NO Vision Positive for vision impairment and wears glasses Follows with golf course manager:YES Hearing - Hearing aid : Hearing impairment, no hearing aids Falls: .: Falls in the last 12 months: Positive: 1/2 falls. If + falls: Physical Exam: General: Well-nourished, kempt Ambulatory: without assistance Mobility Aid: Cane Head: Normocephalic Eyes: conjunctiva/corneas normal, EOMI Oropharynx: moist without lesions, teeth in good repair Neck: supple and no adenopathy Cardio: regular rate and rhythm Pulmonary: Lungs clear to auscultation bilaterally Extremities: Extremities normal. No deformities, edema, or skin discoloration. Musculoskeletal: Normal Gait Neuro:Deep Tendon reflexes :2/4 , Both Gait: Unsteadiness: YES Shuffling: NO Tremors: NO Slowness: YES Mini-Mental State Exam (MMSE): CDR Dementia Scale 1) Subjective Memory Loss: YES 2) Measurable Memory Loss: YES 3) IADLs: YES 4) BADLs: NO Driving Safely: Yes > 50% 6) Medications: No Level: CDR 1 Depression Screening/Evaluation: GDS: 06/13 Labs: None available today Brain Imaging:None available today No diagnosis found. Assessment and Plan: I. Medical /Mental Status/Decision Making Capacity 1-Mentation # Subjective memory loss with measurable memory loss with MMSE, 23/30 ... Patient does not have functional impairment she is dependent or unable to do without assistance majority of her IADLs. After her stroke in 2016 she cut down on her driving and since 5 years ago she has been unable to drive and voluntarily gave up. She needs help with her pillboxes and she also needs help with her finances with son is doing. Based off these she does have dementia the etiology of it is not clear but it is most likely related to the vascular event that she had and probably a little ongoing risk factors. Itis not likely that she has a neurodegenerative process going on but it cannot be ruled out. Contributing to this presentation is the fact that she is depressed and she scored positive on the GDS scale with a 10 on 15. Likely contributors to the depression is isolation, the pandemic and her inability to express herself as she would like to. One of her major issues is word finding difficulty. She is unable to find the words she wants to say and her son most of the time guesses and tries to understand what she is saying but this is very frustrating to her. She is open to consider speech-languagetherapy to help her. This may be the reason to that she does not want to go out and she feels isolated. CDR 1 FAST 6 # She also has urinary incontinence for which she is using depends but would like to keep herself more dry and was wanting us to try a medication Plan: -Consult to speech and language therapy placed -Trial of trospium -Zoloft was increased to 100 mg 2-Mobility -- Patient is frail, CVA D did not help with her balance and gait and it has been a while that she hasbeen outside associating with people or gone for physical therapy and she is willing to do that. Plan Physical therapy for gait and balance mobilization. 3-Medications and chronic medical conditions To continue her medications for cholesterol, hypertension and CVD. She is on clopidogrel and aspirin because of her atherosclerosis and CVD, to continue the Keppra for seizures, to continue levothyroxine, her TSH levels are normal. Plan Spent more than 60 minutes with the patient and son Deepti Auguste MD [facility] documented in this encounterA[facility]08-[facility]24 Telephone encounter Note * Telephone Encounter - Lenin Bhatt MD - 04/19/2024 7:03 AM EDT The following approved medication requests have been transmitted electronically. Requested Prescriptions Signed Prescriptions Disp Refills acetaminophen-codeine (TYLENOL-COD #3) 300-30 mg per tablet 30 tablet 0 Sig: Take 1 tablet by mouth at bedtime as needed for pain for up to 30 days. Authorizing Provider: LENIN BHATT MD [facility]08-21-2024 Miscellaneous Notes* Telephone Encounter - Lenin Bhatt MD - 04/19/2024 7:03 AM EDT The following approved medication requests have been transmitted electronically. Requested Prescriptions Signed Prescriptions Disp Refills acetaminophen-codeine (TYLENOL-COD #3) 300-30 mg per tablet 30 tablet 0 Sig: Take 1 tablet by mouth at bedtime as needed for pain for up to 30 days. Authorizing Provider: LENIN BHATT MD * Telephone Encounter - Gloria Martinez RN - 04/18/2024 2:56 PM EDT The patient has been identified by name [...] 18, 2024 2:56 PM documented in this encounterA[facility]08-[facility]24 Telephone encounter Note * Telephone Encounter - Gloria Martinez RN - 04/18/2024 2:56 PM EDT The patient has been identified by name [...] Martinez RN April 18, 2024 2:56 PM [facility]08-15-2024 Telephone encounter Note* Telephone Encounter - Edmund Weeks MA - 04/13/2024 8:32 AM EDT Spoke with patient and advised of results. Edmund Weeks MA [facility]08-15-2024 Miscellaneous Notes* Telephone Encounter - Edmund Weeks MA - 04/13/2024 8:32 AM EDT Spoke with patient and advised of results. Edmund Weeks MA * Telephone Encounter - Edmund Weeks MA - 04/13/2024 8:32 AM EDT Images from the original note were not included. Message Received: Yesterday Zachariah Gonzales Jr., MD P [facility] [place] [facility] is stable documented in this encounterAultman [facility]08-15-2024 Telephone encounter Note * Telephone Encounter - Edmund Weeks MA - 04/13/2024 8:32 AM EDT Images from the original note were not included. Message Received: Yesterday Zachariah Gonzales Jr., MD [facility] [place] [facility] is stable [facility]08-12-2024 History of Present illness Narrative* April Avalos RDMS - 04/10/2024 11:30 AM EDT Radiology Service Progress Note PATIENT [...] falls during this visit? Instructed Patient to Callfor Help if Needed, Offered Assistance with Transfers/Clothing, Instructed Patient to Remain Seated(Not on Exam Table) Until Exam, and Increased Observations by Caregivers PATIENT GENDER DATA: Female. status: : No status: NO. PATIENT RELEVANT IMPLANT DATA REVIEWED: Not Applicable PATIENT PRESENTS WITH AN IMPLANTABLE OR ATTACHED COOK LARDER: No RADIOLOGY DEPARTMENT: Ultrasound PERIPHERAL IV DATA: Not applicable SIGNED BY: April Avalos RDMS RVT April 10, 2024 11:18 AM documented in this encounterAultman [facility]08-12-2024 NoteHNO ID: [id number] Author: APRIL AVALOS RDMS Service: ? Author Type: Poultry Hatcher[employer] Man Type: Progress Notes Filed: 04/10/2024 11:19 Note [...] PATIENT PRESENTS WITH AN IMPLANTABLE OR ATTACHED COOK LARDER: No RADIOLOGY DEPARTMENT: Ultrasound PERIPHERAL IV DATA: Not applicable SIGNED BY: April Avalos RDMS Alberto April 10, 2024 11:18 [facility]07-26-2024 Telephone encounter Note* Telephone Encounter - Yohan Bustillo MA - 03/24/2024 9:18 AM EDT Prescription Refill Information The patient has been [...] Bustillo MA March 24, 2024 9:18 AM T [facility]07-26-2024 Miscellaneous Notes* Telephone Encounter - Yohan Bustillo MA - 03/24/2024 9:18 AM EDT Prescription Refill Information The patient has been [...] 24, 2024 9:18 AM documented in this encounterAultman Alliance [facility] Hospital07-23-2024 Telephone encounter Note * Telephone Encounter - Yohan Bustillo MA - 03/21/2024 11:59 AM EDT Notification received that [facility] message was not read. TC to pt's son William. Notified and verbalized understanding of instructions. [facility]07-23-2024 Miscellaneous Notes* Telephone Encounter - Yohan Bustillo MA - 03/21/2024 11:59 AM EDT Notification received that [facility] message was not read. TC to pt's tammy Thomas. Notified and verbalized understanding of instructions. documented in this encounterAultman [facility]07-16-2024 Instructions* Patient Instructions* Moira Hearn, AMBULATORY ANALYST.[facility] - 03/14/2024 2:25 PM EDT Decrease Lisinopril [...] review all the medicines you take, even bhlk-wfp-vdporvs medicines. As you get older, the way medicines work in your body can change. Some medicines, or combinations of medicines, can make you sleepy or dizzy andcan cause you to fall. 3. Have your [...] have certain medical conditions. documented in this encounterAultman [facility]07-16-2024 NoteHNO ID: [id number] Author: MOIRA HEARN APRN.CNP Service: ? Author Type: Nurse Practitioner Type: [...] as PCP - General Outside specialists seen: endocrinology specialist- Dr. Jonathan Aguila, neurology- Dr. Aramis Cheng [...] 90 Resp 18 Ht 159.5 cm (5' 2.8) Wt 68 kg (150 lb) SpO2 96% [...] activity was identified. 03/15/2024 by Moira Hearn APRN.[employer]ION MAK[employer] HAND - ACETAMINOPHEN 300 MG-CODEINE 30 MG TABLET 3. Essential hypertension - ICD9: 401.9, ICD10: I10 BP low, patient experiencing positional lightheadedness but otherwise asymptomatic - Decrease Lisinopril to 2.5 mg daily - Recommend home blood pressure monitoring, (more content not included)... [facility]07-16-2024 History of Present illness Narrative* Moira Hearn, AMBULATORY ANALYST.[employer] - 03/14/2024 2:21 PM EDT Images from the original note were [...] as PCP - General Outside specialists seen: endocrinology specialist- Dr. Jonathan Aguila, neurology- Dr. Aramis Cheng [...] optometry/ophthalmology Assessment/Plan Medicare annual wellness visit, subsequent () - Counseled on healthy diet and regular [...] feeling faint. She needs a refill of T ylenol with codeine for chronic BLE pain secondary to PVD. She takes this a few times a week and itis effective at managing her pain. without side effects. Taking all other medications as prescribed, denies side effects. PHYSICAL EXAM BP 98/56 Pulse 90 Resp 18 Ht 159.5 cm (5' 2.8) Wt 68 kg (150 lb) SpO2 96% BMI 26.75 kg/m GENERAL: well appearing, alert, in no acute distress CARDIOVASCULAR: regular rate and rhythm. No murmur, rubs or gallops. PULMONARY: clear to auscultation, no wheezing, rhonchi, or crackles ASSESSMENT/PLAN: 1. Medicare annual wellness visit, subsequent - ICD9: V70.0, ICD10: Z.00 (primary diagnosis) See medicare wellness note 2. [...] All prescriptions have been APPROPRIATELY filled. No suspiciousactivity was identified. 03/15/2024 by Moira Hearn APRN.[employer]IECE EXP[employer]ION MAKER HAND - ACETAMINOPHEN 300 MG-CODEINE 30 MG [...] cancer - ICD9: V76.12, ICD10: Z12.31 - [facility] SCREENING W YUKI Hearn APRN.[employer]ION MAK[employer] documented in this encounterAultman [facility]07-15-2024 Telephone encounter Note * Telephone Encounter - Sheila Munoz LPN - 03/13/2024 6:31 PM EDT Patient has been identified by [...] Please advise. Thank you. Sheila Munoz LPN. [facility]07-15-2024 Miscellaneous Notes* Telephone Encounter - Sheila Munoz LPN - 03/13/2024 6:31 PM EDT Patient has been identified by [...] you. Sheila Munoz LPN. documented in this encounterAultman [facility]05-13-2024 Telephone encounter Note * Telephone Encounter - Yohan Bustillo MA - 01/10/2024 11:07 AM EDT Requested Prescriptions Pending Prescriptions Disp Refills acetaminophen-codeine (TYLENOL-COD #3) 300-30 mg per tablet 30 tablet 0 Sig: Take 1 tablet by mouth daily at bedtime for 30 days. Date of last office visit in primary care: 12/09/2023 Date of next office visit in primary care: 03/14/2024 Please advise. Thank you. Yohan Bustillo MA. [facility]05-13-2024 Miscellaneous Notes* Telephone Encounter - Yohan Bustillo MA - 01/10/2024 11:07 AM EDT Requested Prescriptions Pending Prescriptions Disp Refills acetaminophen-codeine (TYLENOL-COD #3) 300-30 mg per tablet 30 tablet 0 Sig: Take 1 tablet by mouth daily at bedtime for 30 days. Date of last office visit in primary care: 12/09/2023 Date of next office visit in primary care: 03/14/2024 Please advise. Thank you. Yohan Bustillo MA. documented in this encounterAultman [facility]04-11-2024 NoteHNO ID: [id number] Author: LENIN BHATT MD Service: ? Author Type: Physician Type: Progress Notes Filed: 12/09/2023 09:58 Note Text: This note was created using Incipientriter. Subjective Dalia Lopez is a 73 year [...] Recurrent Falls Seizure (Hcc) Covid-19 Localization-Related Epilepsy (Hcc) Open Wound of Hand Chronic Bronchitis, Unspecified Chronic Bronchitis Type (Hcc) Social History Tobacco Use Smoking status: Former [...] alert. Comments: On whe (more content not included)...[facility] 12-09-2023 History of Present illness Narrative* Lenin Bhatt MD - 12/09/2023 9:06 AM EDT This note was created using Incipientriter. Subjective Dalia Lopez is a 73 year [...] Current Moderate Episode of Major Depressive Disorder ([facility]) Sacral Decubitus Ulcer, Stage II ([facility]) Kidney Insufficiency Bacteriuria With Pyuria Arteriosclerosis of Coronary Artery Closed Head Injury History of Stroke Lbbb (Left Bundle Branch Block) Leukopenia Recurrent Falls Seizure ([facility]) Covid-19 Localization-Related Epilepsy ([facility]) Open Wound of Hand Chronic Bronchitis, Unspecified Chronic Bronchitis Type ([facility]) Social History Tobacco Use Smoking [...] TABLET Lenin Bhatt MD documented in this encounterAultman [facility]04-01-2024 Miscellaneous Notes* Telephone Encounter - Jaime Bowie MA - 11/29/2023 11:29 AM EDT Your last note states to FU in 2 years on 03/31/2022 with US prior. She did the US 04/19/2023. Did you want another US prior to FU in 03/2024? Pended if needed. Can you advise? Jaime Bowie MA documented in this encounterAultman [facility]11-02-2023 Progress note Author Catarino [facility] July 01, 2023 12:24pm Note Date/Time July 01, 2023 1 2:24pm [facility] [address] [place] [address] Progress Note - Wound Care 07/01/23 1222 MR#: [id number] Acct: [id number] Name: DALIA LOPEZ Rep #:[id number] : 1950 72 From: Catarino santiago MD PCP: Dr. Lenin Bhatt MD Status:R EG RCR Location: History of Present Illness Date of Service: 07/01/23 Chief Complaint: Non healing sacral ulcer History of Wound: Ms. Lopez is a 72-year-old who was referred to the wound center due to nonhealing sacral ulcer. Not very clear on how long it has been there but her son states that it was brought to his attention 2 to 3 weeks ago. She has been applying nystatin cream to the area. History of CVAs with minimalactivity. No known history of diabetes. No chills, fever or otherwise feeling of unwell reported. Progress of Wound: Patient denies any concerns. Increased depth however noted. Objective Data Objective Data Vital Signs: Vital Signs Temp Pulse Resp BP 96.2 F L 81 20 H 104/44 L 07/01/23 11:00 07/01/23 11:00 07/01/23 11:00 07/01/23 11:00 Weight: 170 lb Body Mass Index (BMI) 29.2 Charges/Coding Procedures Integumentary 111xxx-113xx: [id number] Maria M subq tissue 20 sq cm/< Physical Exam Const alert, oriented x3 and no apparent distress General Appearance: cooperative and comfortable HEENT normocephalic and head/scalp atraumatic Eyes EOMs intact bilaterally Neck full ROM and supple General: normal visual inspection Resp normal respiratory effort Effort and Inspection: able to speak in complete sentences Skin Wounds: wounds noted Neuro oriented x3, CN's II-XII intact bilaterally and moves all extremities Psych mental status grossly normal, thought process normal and cooperative Debridement Note Debridement Note Wound debrided: Sacral Wound Grade/Stage: Stage III Type of Debridement: Excisional debridement Anesthesia Used: 5% Lidocaine Gel Depth: Down to and including healthy tissue and in the subcutaneous layer Percentage of wound debrided: 100 Instrument Used: 5mm curette Tissue Removed: Slough and devitalized tissue Severity: Fat Layer Exposed Amount of bleeding with debridement: Mild Bleeding Controlled with: Pressure Patient tolerated procedure: Patient tolerated procedure well Post-Debridement Measurements and Additional Note: Post-Debridement Measurements/Treatment [facility] - Nurse 1 - General Ulcer Assessment Start: 07/01/23 10:56 Freq: Status: Active Protocol: LAURIE Activity Type Activity Date Activity User E-sign Co-sign Detail Recorded Client Recorded Date Recorded By Document 07/01/23 11:00 DL Desktop 07/01/23 11:03 DL 07/01/23 11:00 WC - Today's Visit Information Type of service Follow-up Visit (Physician/[employer] ) Arrival Mode Wheelchair Transfer Assistance Manual Transfer Assist (Other) x2 Patient Identification Verified (Name & Yes ) Patient Requires Transmission-Based No Precautions Height and Weight Body Mass Index (BMI) 29.2 BMI Classification Overweight Vital Signs Temperature (97.8 F-99.1 F) 96.2 F L Temperature Source Temporal Pulse Rate (60-100) 81 Pulse Location Monitor Respiratory Rate (12-18) 20 H Respiratory rate source Observation Blood Pressure (90/60-120/80) 104/44 L Blood Pressure Mean (mm Hg) 64 Source Monitor History Since Last Visit- (Skip if this is Patient's initial visit) Have you changed medications since your No last visit? Any new allergies or adverse reactions No Had a fall/change in ADL's that may No increase risk of falls Signs or symptoms of abuse and/or No neglect since last visit Have you been in the hospital since your No last visit? Has dressing in place as prescribed Yes Has compression in place as prescribed N/A Has offloadiing in place as prescribed No Experienced any changes in pain level or No management Pain Scale: 0-10 Numeric Is Patient Pain Free? Yes [facility] He Nurse 1 - General Ulcer Measurement Start: 07/01/23 10:56 Freq: Status: Active Protocol: Activity Type Activity Date Activity User E-sign Co-sign Detail Recorded Client Recorded Date Recorded By Document 07/01/23 11:00 DL Desktop 07/01/23 11:03 DL 07/01/23 11:00 Wound Center Nurse 1 #1- SACRAL -Current Size (cm) - Length 0.8 -Current Size (cm) - Width 0.5 -Current Size (cm) - Depth 1.1 -Total Square Cm 0.40 -Exudate Amt Small -Exudate Type Serosanguineous -Wound Margin Distinct, Outline Attached -Granulation Amt Large (67-100%) -Granulation Quality [place] -Necrosis Amt None Present (0 %) -Structure Exposed N/A -Texture (Tsering-wound Skin Appearance) Scarring -Moisture (Tsering-wound Skin Appearance) No Abnormality -Color (Tsering-wound Skin Appearance) No Abnormality -Temperature (Tsering-wound Skin No Abnormality Appearance) (Pt Warm) -Tenderness on Palpation (Tsering-wound No Skin Appearance) -Ulcer Cleansing Rinsed/ Irrigated with Saline -Foul Odor after Cleansing No -Anesthetic Used 5% Lidocaine Gel WC - Nurse 2 - General Ulcer CM Notes Start: 07/01/23 10:56 Freq: Status: Active Protocol: Activity Type Activity Date Activity User E-sign Co-sign Detail Recorded Client Recorded Date Recorded By Document 07/01/23 11:23 Desktop 07/01/23 11:35 07/01/23 11:23 Wound Center Nurse 2 -Time 11:23 -Correct Patient Yes -Correct Side, Site, Position Yes -Correct Procedure Yes -Procedure Performed Yes -Type of Procedure Debridement -Clinical Debridement Subcutaneous -Tissue Removed Subcutaneous -Post Debridement (cm) - Length 1.0 -Post Debridement (cm) - Width 0.3 -Post Debridement (cm) - Depth 1.4 -Total Square (Post) (cm) 0.30 -Area of Debridement (cm) - Length 1.0 -Area of Debridement (cm) - Width 0.3 -Total Square (Area) (cm) 0.30 -Tunneling No -Undermining/Tunneling No -Circular Undermining No -Wound/Ulcer Outcome Not Healed -Ulcer Cleansing Rinsed/ Irrigated with Saline -Foul Odor after Cleansing No -Bioengineered Tissue No -Bleeding Controlled with Pressure -Treatment Response Procedure Tolerated Well -Debridement - Subq, 1st 20sq cm Yes Pain Scale: 0-10 Numeric Is Patient Pain Free? Yes Assessment/Plan Assessment/Plan (1) Sacral decubitus ulcer, stage III: CODE(S): L89.153 - Pressure ulcer of sacral region, stage 3 (2) History of stroke: CODE(S): Z86.73 - Personal history of transient ischemic attack (TIA), andcerebral infarction without residual deficits (3) Debility: CODE(S): R53.81 - Other malaise PLAN: Plan Debridement done as documented above, procedure was well-tolerated. Does not look clinically infected but cultures taken due to increased depth. They deny increased drainage, pain or other concerns. Continue Promogran, cover with Adaptic and foam dressing. Change daily to twice daily depending on drainage /soilage. Continue offloading and adequate protein intake. Their questions were answered and they were advised to call with any further questions or concerns. Follow-up in 1 week or sooner if needed. This note was generated with TranslationExchange[employer] software. It may contain incorrectwords, spelling, and punctuation that were not noted in checking the note beforesigning. 07/01/23 1224 <Electronically signed by Catarino Dominguez MD> Cosigner Signature (if applicable): CC: ~ Signed [facility] Work Phone: 1(527) 871-697510-12-2023 Progress note Author Catarino Dominguez [facility] June 10, 2023 1:19pm Note Date/Time June 10, 2023 1 :19pm [facility] [address] [place] [id number] Progress Note - Wound Care 06/10/23 1318 MR#: [id number] Acct: [id number] Name: DALIA LOPEZ Rep #:[id number] : 1950 72 From: Catarino santiago MD PCP: Dr. Lenin Bhatt MD Status:R [facility] Location: History of Present Illness Date of Service: 06/10/23 Chief Complaint: Non healing sacral ulcer History of Wound: Ms. Lopez is a 72-year-old who was referred to the wound center due to nonhealing sacral ulcer. Not very clear on how long it has been there but her son states that it was brought to his attention 2 to 3 weeks ago. She has been applying nystatin cream to the area. History of CVAs with minimalactivity. No known history of diabetes. No chills, fever or otherwise feeling of unwell reported. Progress of Wound: Some improvement noted. No new concerns at this time. Objective Data Objective Data Vital Signs: Vital Signs Temp Pulse Resp BP 97.5 F L 80 16 126/48 H 06/10/23 11:27 06/10/23 11:27 06/10/23 11:27 06/10/23 11:27 Weight: 170 lb Body Mass Index (BMI) 29.2 Charges/Coding Procedures Integumentary 111xxx-113xx: 09440 Maria M subq tissue 20 sq cm/< Physical Exam Const alert, oriented x3 and no apparent distress General Appearance: cooperative and comfortable HEENT normocephalic and head/scalp atraumatic Eyes EOMs intact bilaterally Neck full ROM and supple General: normal visual inspection Resp normal respiratory effort Effort and Inspection: able to speak in complete sentences Skin Wounds: wounds noted Neuro oriented x3, CN's II-XII intact bilaterally and moves all extremities Psych mental status grossly normal, thought process normal and cooperative Debridement Note Debridement Note Wound debrided: Sacral Wound Grade/Stage: Stage III Type of Debridement: Excisional debridement Anesthesia Used: 5% Lidocaine Gel Depth: Down to and including healthy tissue and in the subcutaneous layer Percentage of wound debrided: 100 Instrument Used: 5mm curette Tissue Removed: Slough and devitalized tissue Severity: Fat Layer Exposed Amount of bleeding with debridement: Mild Bleeding Controlled with: Pressure Patient tolerated procedure: Patient tolerated procedure well Post-Debridement Measurements and Additional Note: Post-Debridement Measurements/Treatment - Nurse 1 - General Ulcer Assessment Start: 06/10/23 11:27 Freq: Status: Active Protocol: LAURIE Activity Type Activity Date Activity User E-sign Co-sign Detail Recorded Client Recorded Date Recorded By Document 06/10/23 11:27 Desktop 06/10/23 11:29 06/10/23 11:27 - Today's Visit Information Type of service Follow-up Visit (Physician/[employer] ) Arrival Mode Ambulatory, Wheelchair Patient Identification Verified (Name & Yes ) Patient Requires Transmission-Based No Precautions Height and Weight Body Mass Index (BMI) 29.2 BMI Classification Overweight Vital Signs Temperature (97.8 F-99.1 F) 97.5 F L Temperature Source Temporal Pulse Rate (60-100) 80 Pulse Location Monitor Respiratory Rate (12-18) 16 Respiratory rate source Observation Blood Pressure (90/60-120/80) 126/48 H Blood Pressure Mean (mm Hg) 74 Source Monitor Position Semi-Fowlers Blood Pressure Location Left Arm History Since Last Visit- (Skip if this is Patient's initial visit) Have you changed medications since your No last visit? Any new allergies or adverse reactions No Had a fall/change in ADL's that may No increase risk of falls Signs or symptoms of abuse and/or No neglect since last visit Have you been in the hospital since your No last visit? Has dressing in place as prescribed Yes Has compression in place as prescribed N/A Has offloadiing in place as prescribed Yes Experienced any changes in pain level or No management Left Footwear Regular Shoe Right Footwear Regular Shoe Pain Scale: 0-10 Numeric Is Patient Pain Free? Yes - Nurse 1 - General Ulcer Measurement Start: 06/10/23 11:27 Freq: Status: Active Protocol: Activity Type Activity Date Activity User E-sign Co-sign Detail Recorded Client Recorded Date Recorded By Document 06/10/23 11:27 [employer] [employer] 06/10/23 11:29 06/10/23 11:27 Wound Center Nurse 1 #1- SACRAL -Combined with other wound No -Current Size (cm) - Length 1.0 -Current Size (cm) - Width 0.8 -Current Size (cm) - Depth 1.0 -Total Square Cm 0.80 -Photo Taken No -Epithelialization None Present -Tunneling No -Undermining/Tunneling No -Circular Undermining No -Exudate Amt Small -Exudate Type Serosanguineous -Wound Margin Flat & Intact -Granulation Amt Large (67-100%) -Granulation Quality Red -Slough/Fibrin Yes -Necrosis Amt Small (1-33%) -Necrotic Tissue Type Adherent Slough -Structure Exposed N/A -Texture (Tsering-wound Skin Appearance) Assessed -Moisture (Tsering-wound Skin Appearance) Assessed,Dry/ Scaly -Color (Tsering-wound Skin Appearance) Assessed -Temperature (Tsering-wound Skin No Abnormality Appearance) (Pt Warm) -Tenderness on Palpation (Tsering-wound No Skin Appearance) -Ulcer Cleansing Rinsed/ Irrigated with Saline -Foul Odor after Cleansing No -Anesthetic Used 5% Lidocaine Gel Lower Limb Edema Present NA [place] - Nurse 2 - General Ulcer CM Notes Start: 06/10/23 11:27 Freq: Status: Active Protocol: Activity Type Activity Date Activity User E-sign Co-sign Detail Recorded Client Recorded Date Recorded By Document 06/10/23 11:49 [employer] 06/10/23 11:52 06/10/23 11:49 Wound Center Nurse 2 #1- SACRAL -Time 11:49 -Correct Patient Yes -Correct Side, Site, Position Yes -Correct Procedure Yes -Procedure Performed Yes -Type of Procedure Debridement -Clinical Debridement Subcutaneous -Tissue Removed Subcutaneous -Post Debridement (cm) - Length 1 -Post Debridement (cm) - Width 0.3 -Post Debridement (cm) - Depth 0.7 -Total Square (Post) (cm) 0.3 -Area of Debridement (cm) - Length 1 -Area of Debridement (cm) - Width 0.3 -Total Square (Area) (cm) 0.3 -Tunneling No -Undermining/Tunneling No -Circular Undermining No -Wound/Ulcer Outcome Not Healed -Ulcer Cleansing Rinsed/ Irrigated with Saline -Foul Odor after Cleansing No -Bioengineered Tissue No -Bleeding Controlled with Pressure -Treatment Response Procedure Tolerated Well -Debridement - Open, 1st 20sq cm No -Debridement - Subq, 1st 20sq cm Yes Pain Scale: 0-10 Numeric Is Patient Pain Free? Yes Assessment/Plan Assessment/Plan (1) Sacral decubitus ulcer, stage III: CODE(S): L89.153 - Pressure ulcer of sacral region, stage 3 (2) History of stroke: CODE(S): Z86.73 - Personal history of transient ischemic attack (TIA), andcerebral infarction without residual deficits (3) Debility: CODE(S): R53.81 - Other malaise PLAN: Plan Debridement done as documented above, procedure was well-tolerated. Some improvement noted. Continue Promogran, cover with Adaptic and foam dressing. Change daily to twice daily depending on drainage /soilage. Continue offloading and adequate protein intake. Their questions were answered and they were advised to call with any further questions or concerns. Follow-up in 2 weeks orsooner if needed. This note was generated with [employer] dictation software. It may contain incorrectwords, spelling, and punctuation that were not noted in checking the note beforesigning. 06/10/23 1319 <Electronically signed by Catarino Dominguez MD> Cosigner Signature (if applicable): CC: ~ Signed [facility] Work Phone: 1(244) 382-552210-12-2023 History of Past illness Narrative* Problem Noted [...] 06/30/2017 LBBB (left bundle branch block) 08/02/2015 12/09/2023 Overview: Last Assessment & Plan: - Tele monitoring post-op Localization-related epilepsy 06/06/2015 06/10/2023 12/09/2023 Overview: Last Assessment & Plan: - Continuing home Keppra. 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 ANALYST.[employer]ION [employer] HAND - 06/10/2023 10:10 AM EDT CC: [...] block, left CAD (coronary artery disease) Cardiomyopathy ([facility]) CHF (congestive heart failure) ([facility]) COVID-19 08/28/2020 Decubitus ulcer, stage 2 ([facility]) 09/15/2015 Essential hypertension 07/20/2016 Gram-negative sepsis, unspecified ([facility]) 09/15/2015 UTI HTN (hypertension) Hyperlipidemia 07/20/2016 Impaired fasting glucose 07/25/2016 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 Aramis Nielson, Neurology Seizure disorder ([facility]) 03/2013 Shortness of breath Stroke (cerebrum) ([facility]) 2015 recurrent Stroke ([facility]) 04/22/2013 aphasia,left facial droop PAST [...] C (97.1 F) Ht 162.6 cm (5' 4) Wt 74 kg (163 lb 1.6 oz) [id number]% BMI 28.00 kg/m Physical Exam Vitals reviewed. [...] plan. Moira Brandon APRN.CNP [facility] Progress note Author Catarino Dominguez [facility] May 27, 2023 1:53pm Note Date/Time May 27, 2023 1:53pm [facility] [address] [place] [address] Progress Note - Wound Care 05/27/23 1351 MR#: [id number] Acct: [id number] Name: DALIA LOPEZ Rep #:[id number] : 1950 72 From: Catarino santiago MD PCP: Dr. Lenin Bhatt MD Status:R EG RCR Location: History of Present Illness Date of Service: 05/27/23 Chief Complaint: Non healing sacral ulcer History of Wound: Ms. Lopez is a 72-year-old who was referred to the wound center due to nonhealing sacral ulcer. Not very clear on how long it has been there but her son states that it was brought to his attention 2 to 3 weeks ago. She has been applying nystatin cream to the area. History of CVAs with minimalactivity. No known history of diabetes. No chills, fever or otherwise feeling of unwell reported. Progress of Wound: No new concerns at this time. Stable. Objective Data Objective Data Vital Signs: Vital Signs Temp Pulse Resp BP O2 Del Method 96.7 F L 71 16 100/40 L Room Air 05/27/23 11:39 05/27/23 11:39 05/27/23 11:39 05/20/23 10:56 05/27/23 11:39 Oxygen Delivery Method Room Air Weight: 170 lb Body Mass Index (BMI) 29.2 Charges/Coding Procedures Integumentary 111xxx-113xx: 23354 Maria M subq tissue 20 sq cm/< Physical Exam Const alert, oriented x3 and no apparent distress General Appearance: cooperative and comfortable HEENT normocephalic and head/scalp atraumatic Eyes EOMs intact bilaterally Neck full ROM and supple General: normal visual inspection Resp normal respiratory effort Effort and Inspection: able to speak in complete sentences Skin Wounds: wounds noted Neuro oriented x3, CN's II-XII intact bilaterally and moves all extremities Psych mental status grossly normal, thought process normal and cooperative Debridement Note Debridement Note Wound debrided: Sacral Wound Grade/Stage: Stage III Type of Debridement: Excisional debridement Anesthesia Used: 5% Lidocaine Gel Depth: Down to and including healthy tissue and in the subcutaneous layer Percentage of wound debrided: 100 Instrument Used: 5mm curette Tissue Removed: Slough and devitalized tissue Severity: Fat Layer Exposed Amount of bleeding with debridement: Mild Bleeding Controlled with: Pressure Patient tolerated procedure: Patient tolerated procedure well Post-Debridement Measurements and Additional Note: Post-Debridement Measurements/Treatment - Nurse 1 - General Ulcer Assessment Start: 05/06/23 11:37 Freq: Status: Active Protocol: LAURIE Activity Type Activity Date Activity User E-sign Co-sign Detail Recorded Client Recorded Date Recorded By Document 05/06/23 11:37 RB [id number] 05/06/23 11:38 RB Document 05/20/23 10:56 Desktop 05/20/23 11:00 Document 05/27/23 11:39 [facility] Desktop 05/27/23 11:45 BM 05/06/23 05/20/23 05/27/23 11:37 10:56 11:39 - Today's Visit Information Type of service Follow-up Visit Follow-up Visit Follow-up Visit (Physician/[employer]ION [employer] HAND (Physician/[employer]ION MAKER HAND (Physician/[employer]ION MAKER HAND ) ) ) Arrival Mode Wheelchair Wheelchair Wheelchair Transfer Assistance None Manual Other Transfer Assist (Other) 1 Accompanied by son Patient Identification Verified (Name & Yes Yes Yes ) Patient Requires Transmission-Based No No Precautions Height and Weight Body Mass Index (BMI) 29.2 29.2 29.2 BMI Classification Overweight Overweight Overweight Vital Signs Temperature (97.8 F-99.1 F) 97 F L 97.1 F L 96.7 F L Temperature Source Temporal Temporal Temporal Pulse Rate (60-100) 74 81 71 Pulse Location Monitor Monitor Monitor Respiratory Rate (12-18) 18 18 16 Respiratory rate source Observation Observation Observation Oxygen Delivery Method Room Air Blood Pressure (90/60-120/80) 119/46 L 100/40 L Blood Pressure Mean (mm Hg) 70 60 Source Monitor Monitor Position Semi-Fowlers Semi-Fowlers Blood Pressure Location Left Arm Left Arm History Since Last Visit- (Skip if this is Patient's initial visit) Have you changed medications since your No No No last visit? Any new allergies or adverse reactions No No No Had a fall/change in ADL's that may No No No increase risk of falls Signs or symptoms of abuse and/or No No No neglect since last visit Have you been in the hospital since your No No No last visit? Has dressing in place as prescribed Yes Yes Yes Has compression in place as prescribed No No N/A Has offloadiing in place as prescribed Yes No N/A Experienced any changes in pain level or No No No management Left Footwear Regular Shoe Right Footwear Regular Shoe Pain Scale: 0-10 Numeric Is Patient Pain Free? Yes Yes Yes - Nurse 1 - General Ulcer Measurement Start: 05/06/23 11:37 Freq: Status: Active Protocol: Activity Type Activity Date Activity User E-sign Co-sign Detail Recorded Client Recorded Date Recorded By Document 05/06/23 11:37 [id number] 05/06/23 11:38 RB Document 05/20/23 10:56 Desktop 05/20/23 11:00 Document 05/27/23 11:39 [facility] Desktop 05/27/23 11:45 [facility] 05/06/23 05/20/23 05/27/23 11:37 10:56 11:39 Wound Center Nurse 1 #1- SACRAL -Combined with other wound No No No -Current Size (cm) - Length 1 0.9 1 -Current Size (cm) - Width 0.5 0.5 0.5 -Current Size (cm) - Depth 0.1 1 0.9 -Total Square Cm 0.5 0.45 0.5 -Photo Taken Yes No -Epithelialization Small 1-33% -Tunneling No No No -Undermining/Tunneling No No No -Circular Undermining No No No -Exudate Amt Medium Medium Medium -Exudate Type Serosanguineous Serosanguineous Serosanguineous -Wound Margin Distinct, Distinct, Distinct, Outline Outline Outline Attached Attached Attached -Granulation Amt Medium (34-66%) Medium (34-66%) Large (67-100%) -Granulation Quality [place] Red -Slough/Fibrin Yes Yes No -Necrosis Amt Medium (34-66%) Small (1-33%) None Present (0 %) -Necrotic Tissue Type Adherent Slough Adherent Slough -Structure Exposed N/A N/A -Texture (Tsering-wound Skin Appearance) Assessed Assessed, Assessed, Scarring Scarring -Moisture (Tsering-wound Skin Appearance) Assessed Assessed Assessed -Color (Tsering-wound Skin Appearance) Assessed Assessed Assessed -Temperature (Tsering-wound Skin No Abnormality No Abnormality No Abnormality Appearance) (Pt Warm) (Pt Warm) (Pt Warm) -Tenderness on Palpation (Tsering-wound No No No Skin Appearance) -Ulcer Cleansing Wound Cleanser Wound Cleanser Rinsed/ Irrigated with Saline -Foul Odor after Cleansing No No No -Anesthetic Used 5% Lidocaine 5% Lidocaine 5% Lidocaine Gel Gel Gel WC - Nurse 2 - General Ulcer CM Notes Start: 05/06/23 11:37 Freq: Status: Active Protocol: Activity Type Activity Date Activity User E-sign Co-sign Detail Recorded Client Recorded Date Recorded By Document 05/06/23 11:43 [id number] 05/06/23 11:45 Document 05/20/23 10:56 Desktop 05/20/23 11:00 Document 05/20/23 11:03 Desktop 05/20/23 11:08 Document 05/27/23 11:49 Desktop 05/27/23 11:54 05/06/23 05/20/23 05/20/23 11:43 10:56 11:03 Wound Center Nurse 2 #1- SACRAL -Time 11:43 11:04 -Correct Patient Yes Yes -Correct Side, Site, Position Yes Yes -Correct Procedure Yes Yes -Procedure Performed Yes Yes -Type of Procedure Debridement Debridement -Clinical Debridement Subcutaneous Subcutaneous -Tissue Removed Subcutaneous Subcutaneous -Post Debridement (cm) - Length 1.5 1.1 -Post Debridement (cm) - Width 0.5 0.4 -Post Debridement (cm) - Depth 0.8 1.0 -Total Square (Post) (cm) 0.75 0.44 -Area of Debridement (cm) - Length 1.5 1.1 -Area of Debridement (cm) - Width 0.5 0.4 -Total Square (Area) (cm) 0.75 0.44 -Tunneling No No -Undermining/Tunneling No No -Circular Undermining No No -Wound/Ulcer Outcome Not Healed Not Healed -Ulcer Cleansing Rinsed/ Rinsed/ Irrigated with Irrigated with Saline Saline -Foul Odor after Cleansing No No -Bioengineered Tissue No No -Bleeding Controlled with Pressure Pressure -Treatment Response Procedure Procedure Tolerated Well Tolerated Well -Offloading No No -Pressure Reduction Wheelchair cushion -Debridement - Subq, 1st 20sq cm Yes Yes Pain Scale: 0-10 Numeric Is Patient Pain Free? Yes Yes Yes 05/27/23 11:49 Wound Center Nurse 2 #1- SACRAL -Time 11:49 -Correct Patient Yes -Correct Side, Site, Position Yes -Correct Procedure Yes -Procedure Performed Yes -Type of Procedure Debridement -Clinical Debridement Subcutaneous -Tissue Removed Subcutaneous -Post Debridement (cm) - Length 1.1 -Post Debridement (cm) - Width 0.4 -Post Debridement (cm) - Depth 1.6 -Total Square (Post) (cm) 0.44 -Area of Debridement (cm) - Length 1.1 -Area of Debridement (cm) - Width 0.4 -Total Square (Area) (cm) 0.44 -Tunneling No -Undermining/Tunneling No -Circular Undermining No -Wound/Ulcer Outcome Not Healed -Ulcer Cleansing Rinsed/ Irrigated with Saline -Foul Odor after Cleansing No -Bioengineered Tissue No -Bleeding Controlled with Pressure -Treatment Response Procedure Tolerated Well -Offloading No -Pressure Reduction -Debridement - Subq, 1st 20sq cm Yes Pain Scale: 0-10 Numeric Is Patient Pain Free? Yes - Nurse 3 - General Ulcer D/C NN Start: 05/06/23 11:37 Freq: Status: Active Protocol: Activity Type Activity Date Activity User E-sign Co-sign Detail Recorded Client Recorded Date Recorded By Document 05/06/23 11:53 JF [id number] 05/06/23 11:54 JF Document 05/20/23 11:10 JF Desktop 05/20/23 11:11 JF Edit Result 05/20/23 11:10 JF (1) Desktop 05/20/23 11:12 JF Document 05/27/23 11:58 RB Desktop 05/27/23 11:59 RB (1) #1- SACRAL - Promogran 1 => 2 05/06/23 05/20/23 05/27/23 11:53 11:10 11:58 Wound Care Center Nurse 3 #1- SACRAL -Ulcer Cleansing Rinsed/ Rinsed/ Wound Cleanser Irrigated with Irrigated with Saline Saline -Foul Odor after Cleansing No No -Primary Dressing Applied Fibracol Plus Mepilex Border, Promogran 4x4,Mepilex Promogran Border -Primary Dressing Covered/Secured with Dry Gauze, Secured with Tape -Fibracol Plus 4x4 1 -Mepilex Border 1 1 -Promogran 2 1 Treatment Response Procedure Tolerated Well Pain Scale: 0-10 Numeric Is Patient Pain Free? Yes Yes Yes WC - Visit Discharge Discharge Condition Stable Stable Stable Ambulatory Status Ambulatory, Wheelchair Wheelchair Wheelchair Transportation Private Auto Private Auto Private Auto Accompanied by son son Medication Reconcilliation completed & Yes Yes No provided to patient/care provider Clinical Summary of Care Provided Yes Yes Yes Assessment/Plan Assessment/Plan (1) Sacral decubitus ulcer, stage III: CODE(S): L89.153 - Pressure ulcer of sacral region, stage 3 (2) History of stroke: CODE(S): Z86.73 - Personal history of transient ischemic attack (TIA), andcerebral infarction without residual deficits (3) Debility: CODE(S): R53.81 - Other malaise PLAN: Plan Debridement done as documented above, procedure was well-tolerated. Stable. Continue Promogran, cover with Adaptic and foam dressing. Change daily to twicedaily depending on drainage /soilage. Continue offloading and adequate protein intake. Their questions were answered and they were advised to call with any further questions or concerns. Follow-up in a week or sooner if needed. This note was generated with [employer] dictation software. It may contain incorrectwords, spelling, and punctuation that were not noted in checking the note beforesigning. 05/27/23 1353 <Electronically signed by Catarino Dominguez MD> Cosigner Signature (if applicable): CC: ~ Signed [facility] Work Phone: 1(340) 761-441209-22-2023 Miscellaneous Notes* Telephone Encounter - Melia Valentin Ma - 05/21/2023 11:39 AM EDT Order and demographics faxed to [employer] at [phone]. Melia Valentin Ma * Telephone Encounter - Sheila Munoz LPN - 05/19/2023 3:40 PM EDT Patient requesting order for an oxygen tank hanley for the back of a wheelchair to be faxed to [employer]. Sheila Munoz LPN [facility] Progress note Author Catarino Dominguez [facility] May 20, 2023 11:14am Note Date/Time May 20, 2023 11:14am [facility] [address] [place] [id number] Progress Note - Wound Care 05/20/23 1112 MR#: [id number] Acct: [id number] Name: DALIA LOPEZ Rep #:[id number] : 1950 72 From: Catarino santiago MD PCP: Dr. Lenin Bhatt MD Status:R EG RCR Location: History of Present Illness Date of Service: 05/20/23 Chief Complaint: Non healing sacral ulcer History of Wound: Ms. Lopez is a 72-year-old who was referred to the wound center due to nonhealing sacral ulcer. Not very clear on how long it has been there but her son states that it was brought to his attention 2 to 3 weeks ago. She has been applying nystatin cream to the area. History of CVAs with minimalactivity. No known history of diabetes. No chills, fever or otherwise feeling of unwell reported. Progress of Wound: No new concerns at this time. Stable. Objective Data Objective Data Vital Signs: Vital Signs Temp Pulse Resp BP 97.1 F L 81 18 100/40 L 05/20/23 10:56 05/20/23 10:56 05/20/23 10:56 05/20/23 10:56 Weight: 170 lb Body Mass Index (BMI) 29.2 Charges/Coding Procedures Integumentary 111xxx-113xx: 54646 Maria M subq tissue 20 sq cm/< Physical Exam Const alert, oriented x3 and no apparent distress General Appearance: cooperative and comfortable HEENT normocephalic and head/scalp atraumatic Eyes EOMs intact bilaterally Neck full ROM and supple General: normal visual inspection Resp normal respiratory effort Effort and Inspection: able to speak in complete sentences Skin Wounds: wounds noted Neuro oriented x3, CN's II-XII intact bilaterally and moves all extremities Psych mental status grossly normal, thought process normal and cooperative Debridement Note Debridement Note Wound debrided: Sacral Wound Grade/Stage: Stage III Type of Debridement: Excisional debridement Anesthesia Used: 5% Lidocaine Gel Depth: Down to and including healthy tissue and in the subcutaneous layer Percentage of wound debrided: 100 Instrument Used: 5mm curette Tissue Removed: Slough and devitalized tissue Severity: Fat Layer Exposed Amount of bleeding with debridement: Mild Bleeding Controlled with: Pressure Patient tolerated procedure: Patient tolerated procedure well Post-Debridement Measurements and Additional Note: Post-Debridement Measurements/Treatment - Nurse 1 - General Ulcer Assessment Start: 05/06/23 11:37 Freq: Status: Active Protocol: LAURIE Activity Type Activity Date Activity User E-sign Co-sign Detail Recorded Client Recorded Date Recorded By Document 05/06/23 11:37 [id number] 05/06/23 11:38 Document 05/20/23 10:56 Desktop 05/20/23 11:00 05/06/23 05/20/23 11:37 10:56 - Today's Visit Information Type of service Follow-up Visit Follow-up Visit (Physician/[employer]CE [employer]ION MAKER HAND (Physician/[employer]ION [employer]ER [employer] ) ) Arrival Mode Wheelchair Wheelchair Transfer Assistance None Manual Patient Identification Verified (Name & Yes Yes ) Patient Requires Transmission-Based No Precautions Height and Weight Body Mass Index (BMI) 29.2 29.2 BMI Classification Overweight Overweight Vital Signs Temperature (97.8 F-99.1 F) 97 F L 97.1 F L Temperature Source Temporal Temporal Pulse Rate (60-100) 74 81 Pulse Location Monitor Monitor Respiratory Rate (12-18) 18 18 Respiratory rate source Observation Observation Blood Pressure (90/60-120/80) 119/46 L 100/40 L Blood Pressure Mean (mm Hg) 70 60 Source Monitor Monitor Position Semi-Fowlers Semi-Fowlers Blood Pressure Location Left Arm Left Arm History Since Last Visit- (Skip if this is Patient's initial visit) Have you changed medications since your No No last visit? Any new allergies or adverse reactions No No Had a fall/change in ADL's that may No No increase risk of falls Signs or symptoms of abuse and/or No No neglect since last visit Have you been in the hospital since your No No last visit? Has dressing in place as prescribed Yes Yes Has compression in place as prescribed No No Has offloadiing in place as prescribed Yes No Experienced any changes in pain level or No No management Pain Scale: 0-10 Numeric Is Patient Pain Free? Yes Yes WC - Nurse 1 - General Ulcer Measurement Start: 05/06/23 11:37 Freq: Status: Active Protocol: Activity Type Activity Date Activity User E-sign Co-sign Detail Recorded Client Recorded Date Recorded By Document 05/06/23 11:37 RB [id number] 05/06/23 11:38 RB Document 05/20/23 10:56 Desktop 05/20/23 11:00 05/06/23 05/20/23 11:37 10:56 Wound Center Nurse 1 #1- SACRAL -Combined with other wound No No -Current Size (cm) - Length 1 0.9 -Current Size (cm) - Width 0.5 0.5 -Current Size (cm) - Depth 0.1 1 -Total Square Cm 0.5 0.45 -Photo Taken Yes -Tunneling No No -Undermining/Tunneling No No -Circular Undermining No No -Exudate Amt Medium Medium -Exudate Type Serosanguineous Serosanguineous -Wound Margin Distinct, Distinct, Outline Outline Attached Attached -Granulation Amt Medium (34-66%) Medium (34-66%) -Granulation Quality [place] -Slough/Fibrin Yes Yes -Necrosis Amt Medium (34-66%) Small (1-33%) -Necrotic Tissue Type Adherent Slough Adherent Slough -Structure Exposed N/A N/A -Texture (Tsering-wound Skin Appearance) Assessed Assessed, Scarring -Moisture (Tsering-wound Skin Appearance) Assessed Assessed -Color (Tsering-wound Skin Appearance) Assessed Assessed -Temperature (Tsering-wound Skin No Abnormality No Abnormality Appearance) (Pt Warm) (Pt Warm) -Tenderness on Palpation (Tsering-wound No No Skin Appearance) -Ulcer Cleansing Wound Cleanser Wound Cleanser -Foul Odor after Cleansing No No -Anesthetic Used 5% Lidocaine 5% Lidocaine Gel Gel WC - Nurse 2 - General Ulcer CM Notes Start: 05/06/23 11:37 Freq: Status: Active Protocol: Activity Type Activity Date Activity User E-sign Co-sign Detail Recorded Client Recorded Date Recorded By Document 05/06/23 11:43 [id number] 05/06/23 11:45 Document 05/20/23 10:56 Desktop 05/20/23 11:00 Document 05/20/23 11:03 Desktop 05/20/23 11:08 05/06/23 05/20/23 05/20/23 11:43 10:56 11:03 Wound Center Nurse 2 #1- SACRAL -Time 11:43 11:04 -Correct Patient Yes Yes -Correct Side, Site, Position Yes Yes -Correct Procedure Yes Yes -Procedure Performed Yes Yes -Type of Procedure Debridement Debridement -Clinical Debridement Subcutaneous Subcutaneous -Tissue Removed Subcutaneous Subcutaneous -Post Debridement (cm) - Length 1.5 1.1 -Post Debridement (cm) - Width 0.5 0.4 -Post Debridement (cm) - Depth 0.8 1.0 -Total Square (Post) (cm) 0.75 0.44 -Area of Debridement (cm) - Length 1.5 1.1 -Area of Debridement (cm) - Width 0.5 0.4 -Total Square (Area) (cm) 0.75 0.44 -Tunneling No No -Undermining/Tunneling No No -Circular Undermining No No -Wound/Ulcer Outcome Not Healed Not Healed -Ulcer Cleansing Rinsed/ Rinsed/ Irrigated with Irrigated with Saline Saline -Foul Odor after Cleansing No No -Bioengineered Tissue No No -Bleeding Controlled with Pressure Pressure -Treatment Response Procedure Procedure Tolerated Well Tolerated Well -Offloading No No -Pressure Reduction Wheelchair cushion -Debridement - Subq, 1st 20sq cm Yes Yes Pain Scale: 0-10 Numeric Is Patient Pain Free? Yes Yes Yes [place] - Nurse 3 - General Ulcer D/C NN Start: 05/06/23 11:37 Freq: Status: Active Protocol: Activity Type Activity Date Activity User E-sign Co-sign Detail Recorded Client Recorded Date Recorded By Document 05/06/23 11:53 [id number] 05/06/23 11:54 JF Document 05/20/23 11:10 Desktop 05/20/23 11:11 05/06/23 05/20/23 11:53 11:10 Wound Care Center Nurse 3 #1- SACRAL -Ulcer Cleansing Rinsed/ Rinsed/ Irrigated with Irrigated with Saline Saline -Foul Odor after Cleansing No No -Primary Dressing Applied Fibracol Plus Mepilex Border, 4x4,Mepilex Promogran Border -Fibracol Plus 4x4 1 -Mepilex Border 1 1 -Promogran 1 Pain Scale: 0-10 Numeric Is Patient Pain Free? Yes Yes WC - Visit Discharge Discharge Condition Stable Stable Ambulatory Status Ambulatory, Wheelchair Wheelchair Transportation Private Auto Private Auto Accompanied by son son Medication Reconcilliation completed & Yes Yes provided to patient/care provider Clinical Summary of Care Provided Yes Yes Assessment/Plan Assessment/Plan (1) Sacral decubitus ulcer, stage III: CODE(S): L89.153 - Pressure ulcer of sacral region, stage 3 (2) History of stroke: CODE(S): Z86.73 - Personal history of transient ischemic attack (TIA), andcerebral infarction without residual deficits (3) Debility: CODE(S): R53.81 - Other malaise PLAN: Plan Debridement done as documented above, procedure was well-tolerated. Minimal change. Switch to Promogran, cover with Adaptic and foam dressing. Change daily to twice daily depending on drainage /soilage. Continue offloading and adequate protein intake. Their questions were answered and they were advised to call with any further questions or concerns. Follow-up in a week or sooner if needed. This note was generated with [employer] dictation software. It may contain incorrectwords, spelling, and punctuation that were not noted in checking the note beforesigning. 05/20/23 1114 <Electronically signed by Catarino Dominguez MD> Cosigner Signature (if applicable): CC: ~ Signed [facility] Work Phone: 1(195) 474-942009-20-2023 Miscellaneous Notes* Telephone Encounter - Sheila Munoz LPN - 05/19/2023 12:55 PM EDT Last office visit: 03/04/2023 Appt: 06/10/2023 Sheila Munoz LPN [facility] Progress note Author Catarino Dominguez [facility] May 06, 2023 12:54pm Note Date/Time May 06, 2023 12:43pm [facility] [address] [place] [address] Progress Note - Wound Care 05/06/23 1243 MR#: [id number] Acct: [id number] Name: DALIA LOPEZ Rep #:[id number] : 1950 72 From: Catarino santiago MD PCP: Dr. Lenin Bhatt MD Status:R EG RCR Location: History of Present Illness Date of Service: 05/06/23 Chief Complaint: Non healing sacral ulcer History of Wound: Ms. Lopez is a 72-year-old who was referred to the wound center due to nonhealing sacral ulcer. Not very clear on how long it has been there but her son states that it was brought to his attention 2 to 3 weeks ago. She has been applying nystatin cream to the area. History of CVAs with minimalactivity. No known history of diabetes. No chills, fever or otherwise feeling of unwell reported. Progress of Wound: No new concerns at this time. Now has home health. Objective Data Objective Data Vital Signs: Vital Signs Temp Pulse Resp BP 97 F L 74 18 119/46 L 05/06/23 11:37 05/06/23 11:37 05/06/23 11:37 05/06/23 11:37 Weight: 170 lb Body Mass Index (BMI) 29.2 Charges/Coding Procedures Integumentary 111xxx-113xx: 15542 Maria M subq tissue 20 sq cm/< Physical Exam Const alert, oriented x3 and no apparent distress General Appearance: cooperative and comfortable HEENT normocephalic and head/scalp atraumatic Eyes EOMs intact bilaterally Neck full ROM and supple General: normal visual inspection Resp normal respiratory effort Effort and Inspection: able to speak in complete sentences Skin Wounds: wounds noted Neuro oriented x3, CN's II-XII intact bilaterally and moves all extremities Psych mental status grossly normal, thought process normal and cooperative Debridement Note Debridement Note Wound debrided: Sacral Wound Grade/Stage: Stage III Type of Debridement: Excisional debridement Anesthesia Used: 4% Lidocaine Solution and 5% Lidocaine Gel Depth: Down to and including healthy tissue and in the subcutaneous layer Percentage of wound debrided: 100 Instrument Used: 3mm curette Tissue Removed: Slough and devitalized tissue Severity: Fat Layer Exposed Amount of bleeding with debridement: Mild Bleeding Controlled with: Pressure Patient tolerated procedure: Patient tolerated procedure well Post-Debridement Measurements and Additional Note: Post-Debridement Measurements/Treatment WC - Nurse 1 - General Ulcer Assessment Start: 05/06/23 11:37 Freq: Status: Active Protocol: LAURIE Activity Type Activity Date Activity User E-sign Co-sign Detail Recorded Client Recorded Date Recorded By Document 05/06/23 11:37 GIGI [id number] 05/06/23 11:38 GIGI 05/06/23 11:37 WC - Today's Visit Information Type of service Follow-up Visit (Physician/[employer]IECE EXPANSION MAKER HAND ) Arrival Mode Wheelchair Transfer Assistance None Patient Identification Verified (Name & Yes ) Height and Weight Body Mass Index (BMI) 29.2 BMI Classification Overweight Vital Signs Temperature (97.8 F-99.1 F) 97 F L Temperature Source Temporal Pulse Rate (60-100) 74 Pulse Location Monitor Respiratory Rate (12-18) 18 Respiratory rate source Observation Blood Pressure (90/60-120/80) 119/46 L Blood Pressure Mean (mm Hg) 70 Source Monitor Position Semi-Fowlers Blood Pressure Location Left Arm History Since Last Visit- (Skip if this is Patient's initial visit) Have you changed medications since your No last visit? Any new allergies or adverse reactions No Had a fall/change in ADL's that may No increase risk of falls Signs or symptoms of abuse and/or No neglect since last visit Have you been in the hospital since your No last visit? Has dressing in place as prescribed Yes Has compression in place as prescribed No Has offloadiing in place as prescribed Yes Experienced any changes in pain level or No management Pain Scale: 0-10 Numeric Is Patient Pain Free? Yes - Nurse 1 - General Ulcer Measurement Start: 05/06/23 11:37 Freq: Status: Active Protocol: Activity Type Activity Date Activity User E-sign Co-sign Detail Recorded Client Recorded Date Recorded By Document 05/06/23 11:37 [id number] 05/06/23 11:38 RB 05/06/23 11:37 Wound Center Nurse 1 #1- SACRAL -Combined with other wound No -Current Size (cm) - Length 1 -Current Size (cm) - Width 0.5 -Current Size (cm) - Depth 0.1 -Total Square Cm 0.5 -Photo Taken Yes -Tunneling No -Undermining/Tunneling No -Circular Undermining No -Exudate Amt Medium -Exudate Type Serosanguineous -Wound Margin Distinct, Outline Attached -Granulation Amt Medium (34-66%) -Granulation Quality [place] -Slough/Fibrin Yes -Necrosis Amt Medium (34-66%) -Necrotic Tissue Type Adherent Slough -Structure Exposed N/A -Texture (Tsering-wound Skin Appearance) Assessed -Moisture (Tsering-wound Skin Appearance) Assessed -Color (Tsering-wound Skin Appearance) Assessed -Temperature (Tsering-wound Skin No Abnormality Appearance) (Pt Warm) -Tenderness on Palpation (Tsering-wound No Skin Appearance) -Ulcer Cleansing Wound Cleanser -Foul Odor after Cleansing No -Anesthetic Used 5% Lidocaine Gel WC - Nurse 2 - General Ulcer CM Notes Start: 05/06/23 11:37 Freq: Status: Active Protocol: Activity Type Activity Date Activity User E-sign Co-sign Detail Recorded Client Recorded Date Recorded By Document 05/06/23 11:43 ANDRES [id number] 05/06/23 11:45 ANDRES 05/06/23 11:43 Wound Center Nurse 2 -Time 11:43 -Correct Patient Yes -Correct Side, Site, Position Yes -Correct Procedure Yes -Procedure Performed Yes -Type of Procedure Debridement -Clinical Debridement Subcutaneous -Tissue Removed Subcutaneous -Post Debridement (cm) - Length 1.5 -Post Debridement (cm) - Width 0.5 -Post Debridement (cm) - Depth 0.8 -Total Square (Post) (cm) 0.75 -Area of Debridement (cm) - Length 1.5 -Area of Debridement (cm) - Width 0.5 -Total Square (Area) (cm) 0.75 -Tunneling No -Undermining/Tunneling No -Circular Undermining No -Wound/Ulcer Outcome Not Healed -Ulcer Cleansing Rinsed/ Irrigated with Saline -Foul Odor after Cleansing No -Bioengineered Tissue No -Bleeding Controlled with Pressure -Treatment Response Procedure Tolerated Well -Offloading No -Pressure Reduction Wheelchair cushion -Debridement - Subq, 1st 20sq cm Yes Pain Scale: 0-10 Numeric Is Patient Pain Free? Yes - Nurse 3 - General Ulcer D/C NN Start: 05/06/23 11:37 Freq: Status: Active Protocol: Activity Type Activity Date Activity User E-sign Co-sign Detail Recorded Client Recorded Date Recorded By Document 05/06/23 11:53 [id number] 05/06/23 11:54 05/06/23 11:53 Wound Care Center Nurse 3 #1- SACRAL -Ulcer Cleansing Rinsed/ Irrigated with Saline -Foul Odor after Cleansing No -Primary Dressing Applied Fibracol Plus 4x4,Mepilex Border -Fibracol Plus 4x4 1 -Mepilex Border 1 Pain Scale: 0-10 Numeric Is Patient Pain Free? Yes WC - Visit Discharge Discharge Condition Stable Ambulatory Status Ambulatory, Wheelchair Transportation Private Auto Accompanied by son Medication Reconcilliation completed & Yes provided to patient/care provider Clinical Summary of Care Provided Yes Assessment/Plan Assessment/Plan (1) Sacral decubitus ulcer, stage III: CODE(S): L89.153 - Pressure ulcer of sacral region, stage 3 (2) History of stroke: CODE(S): Z86.73 - Personal history of transient ischemic attack (TIA), andcerebral infarction without residual deficits (3) Debility: CODE(S): R53.81 - Other malaise PLAN: Plan Debridement done as documented above, procedure was well-tolerated. Continue Fibrocol, cover with Adaptic and foam dressing. Change daily to twice daily depending on drainage soilage. Continue offloading and adequate protein intake. Their questions were answered and they were advised to call with any further questions or concerns. Follow-up in a week or sooner if needed. This note was generated with [employer] software. It may contain incorrectwords, spelling, and punctuation that were not noted in checking the note beforesigning. 05/06/23 125 <Electronically signed by Catarino Dominguez MD> Cosigner Signature (if applicable): CC: ~ Signed [facility] Work Phone: 1(662) 547-474608-24-2023 Progress note Author Catarino Dominguez [facility] April 22, 2023 11:44am Note Date/Time April 22, 2023 11 :44am [facility] [address] [place] [address] Progress Note - Wound Care 04/22/23 1142 MR#: [id number] Acct: [id number] Name: DALIA LOPEZ Rep #:[id number] : 1950 72 From: Catarino santiago MD PCP: Dr. Lenin Bhatt MD Status:R EG RCR Location: History of Present Illness Date of Service: 04/22/23 Chief Complaint: Non healing sacral ulcer History of Wound: Ms. Lopez is a 72-year-old who was referred to the wound center due to nonhealing sacral ulcer. Not very clear on how long it has been there but her son states that it was brought to his attention 2 to 3 weeks ago. She has been applying nystatin cream to the area. History of CVAs with minimalactivity. No known history of diabetes. No chills, fever or otherwise feeling of unwell reported. Progress of Wound: No new concerns at this time. Minimal change since her last visit. Objective Data Objective Data Vital Signs: Vital Signs Temp Pulse Resp BP O2 Del Method 96.2 F L 81 18 120/50 L Room Air 04/22/23 11:22 04/22/23 11:22 04/22/23 11:22 04/22/23 11:22 04/01/23 10:58 Oxygen Delivery Method Room Air Weight: 170 lb Body Mass Index (BMI) 29.2 Charges/Coding Procedures Integumentary 111xxx-113xx: 86057 Maria M subq tissue 20 sq cm/< Physical Exam Const alert, oriented x3 and no apparent distress General Appearance: cooperative and comfortable HEENT normocephalic and head/scalp atraumatic Eyes EOMs intact bilaterally Neck full ROM and supple General: normal visual inspection Resp normal respiratory effort Effort and Inspection: able to speak in complete sentences Skin Wounds: wounds noted Neuro oriented x3, CN's II-XII intact bilaterally and moves all extremities Psych mental status grossly normal, thought process normal and cooperative Debridement Note Debridement Note Wound debrided: Sacral Wound Grade/Stage: Stage III Type of Debridement: Excisional debridement Anesthesia Used: 4% Lidocaine Solution and 5% Lidocaine Gel Depth: Down to and including healthy tissue and in the subcutaneous layer Percentage of wound debrided: 100 Instrument Used: 3mm curette Tissue Removed: Slough and devitalized tissue Severity: Fat Layer Exposed Amount of bleeding with debridement: Mild Bleeding Controlled with: Pressure Patient tolerated procedure: Patient tolerated procedure well Post-Debridement Measurements and Additional Note: Post-Debridement Measurements/Treatment - Nurse 1 - General Ulcer Assessment Start: 04/01/23 10:56 Freq: Status: Active Protocol: LAURIE Activity Type Activity Date Activity User E-sign Co-sign Detail Recorded Client Recorded Date Recorded By Document 04/01/23 10:58 [facility] [id number] 04/01/23 11:04 [facility] Document 04/22/23 11:22 [id number] 04/22/23 11:24 04/01/23 04/22/23 10:58 11:22 - Today's Visit Information Type of service Follow-up Visit Follow-up Visit (Physician/ONE PIECE EXPANSION MAKER HAND (Physician/ONE PIECE EXPANSION MAKER HAND ) ) Arrival Mode Wheelchair Wheelchair Transfer Assistance Other Manual Transfer Assist (Other) 2 Accompanied by SON Patient Identification Verified (Name & Yes Yes ) Patient Requires Transmission-Based No No Precautions Height and Weight Body Mass Index (BMI) 29.2 29.2 BMI Classification Overweight Overweight Vital Signs Temperature (97.8 F-99.1 F) 97.9 F 96.2 F L Temperature Source Temporal Temporal Pulse Rate (60-100) 81 Pulse Location Monitor Monitor Respiratory Rate (12-18) 16 18 Respiratory rate source Observation Observation Oxygen Delivery Method Room Air Blood Pressure (90/60-120/80) 120/50 L Blood Pressure Mean (mm Hg) 73 Source Monitor Monitor Position Sitting Sitting Blood Pressure Location Left Arm Right Arm History Since Last Visit- (Skip if this is Patient's initial visit) Have you changed medications since your No No last visit? Any new allergies or adverse reactions No No Had a fall/change in ADL's that may No No increase risk of falls Signs or symptoms of abuse and/or No No neglect since last visit Have you been in the hospital since your No No last visit? Has dressing in place as prescribed Yes Yes Has compression in place as prescribed N/A No Has offloadiing in place as prescribed N/A No Experienced any changes in pain level or No No management Left Footwear Regular Shoe Right Footwear Regular Shoe Pain Scale: 0-10 Numeric Is Patient Pain Free? Yes Yes - Nurse 1 - General Ulcer Measurement Start: 04/01/23 10:56 Freq: Status: Active Protocol: Activity Type Activity Date Activity User E-sign Co-sign Detail Recorded Client Recorded Date Recorded By Document 04/01/23 10:58 [facility] [id number] 04/01/23 11:04 BM Document 04/22/23 11:22 [id number] 04/22/23 11:24 RB 04/01/23 04/22/23 10:58 11:22 Wound Center Nurse 1 #1- SACRAL -Combined with other wound No No -Current Size (cm) - Length 1.4 1 -Current Size (cm) - Width 0.5 0.7 -Current Size (cm) - Depth 1 1 -Total Square Cm 0.70 0.7 -Date of Last Picture (Recall this 04/01/23 field) -Photo Taken Yes -Epithelialization Small 1-33% -Tunneling No No -Undermining/Tunneling No No -Circular Undermining No No -Exudate Amt Medium Medium -Exudate Type Serosanguineous Serosanguineous -Wound Margin Distinct, Distinct, Outline Outline Attached Attached -Granulation Amt Large (67-100%) Medium (34-66%) -Granulation Quality [place] -Slough/Fibrin No Yes -Necrosis Amt None Present (0 Medium (34-66%) %) -Necrotic Tissue Type Adherent Slough -Structure Exposed N/A -Texture (Tsering-wound Skin Appearance) Assessed, Assessed Scarring -Moisture (Tsering-wound Skin Appearance) Assessed Assessed -Color (Tsering-wound Skin Appearance) Assessed, Assessed Erythema -Temperature (Tsering-wound Skin No Abnormality No Abnormality Appearance) (Pt Warm) (Pt Warm) -Tenderness on Palpation (Tsering-wound No No Skin Appearance) -Ulcer Cleansing Rinsed/ Wound Cleanser Irrigated with Saline -Foul Odor after Cleansing No No -Anesthetic Used 5% Lidocaine 5% Lidocaine Gel Gel WC - Nurse 2 - General Ulcer CM Notes Start: 04/01/23 10:56 Freq: Status: Active Protocol: Activity Type Activity Date Activity User E-sign Co-sign Detail Recorded Client Recorded Date Recorded By Document 04/01/23 11:13 MW [id number] 04/01/23 11:21 MW Document 04/22/23 11:31 MW Desktop 04/22/23 11:35 MW 04/01/23 04/22/23 11:13 11:31 Wound Center Nurse 2 #1- SACRAL -Time 11:13 11:33 -Correct Patient Yes Yes -Correct Side, Site, Position Yes Yes -Correct Procedure Yes Yes -Procedure Performed Yes Yes -Type of Procedure Debridement Debridement -Clinical Debridement Subcutaneous Subcutaneous -Tissue Removed Subcutaneous Subcutaneous -Post Debridement (cm) - Length 1.3 1.5 -Post Debridement (cm) - Width 0.7 0.7 -Post Debridement (cm) - Depth 1.0 0.8 -Total Square (Post) (cm) 0.91 1.05 -Area of Debridement (cm) - Length 1.3 1.5 -Area of Debridement (cm) - Width 0.7 0.7 -Total Square (Area) (cm) 0.91 1.05 -Tunneling No No -Undermining/Tunneling No No -Circular Undermining No No -Wound/Ulcer Outcome Not Healed Not Healed -Ulcer Cleansing Rinsed/ Rinsed/ Irrigated with Irrigated with Saline Saline -Foul Odor after Cleansing No No -Bioengineered Tissue No No -Bleeding Controlled with Pressure Pressure -Treatment Response Procedure Procedure Tolerated Well Tolerated Well -Offloading No No -Debridement - Subq, 1st 20sq cm Yes Yes Pain Scale: 0-10 Numeric Is Patient Pain Free? Yes Yes - Nurse 3 - General Ulcer D/C NN Start: 04/01/23 10:56 Freq: Status: Active Protocol: Activity Type Activity Date Activity User E-sign Co-sign Detail Recorded Client Recorded Date Recorded By Document 04/01/23 11:30 RB [id number] 04/01/23 11:30 RB 04/01/23 11:30 Wound Care Center Nurse 3 #1- SACRAL -Ulcer Cleansing Rinsed/ Irrigated with Saline -Primary Dressing Applied Aquacel Extra, NonAdherent Contact Layer -Other Dressing abd -Aquacel Extra 1 Treatment Response Procedure Tolerated Well Pain Scale: 0-10 Numeric Is Patient Pain Free? Yes WC - Visit Discharge Discharge Condition Stable Ambulatory Status Wheelchair Transportation Private Auto Medication Reconcilliation completed & No provided to patient/care provider Clinical Summary of Care Provided Yes Assessment/Plan Assessment/Plan (1) Sacral decubitus ulcer, stage III: CODE(S): L89.153 - Pressure ulcer of sacral region, stage 3 (2) History of stroke: CODE(S): Z86.73 - Personal history of transient ischemic attack (TIA), andcerebral infarction without residual deficits (3) Debility: CODE(S): R53.81 - Other malaise PLAN: Plan Debridement done as documented above, procedure was well-tolerated. Switch to Fibrocol, cover with Adaptic and foam dressing. Change daily to twice daily depending on drainage soilage. Continue offloading and adequate protein intake. Their questions were answered and they were advised to call with any further questions or concerns. Follow-up in a week or sooner if needed. This note was generated with TranslationExchangeation software. It may contain incorrectwords, spelling, and punctuation that were not noted in checking the note beforesigning. 04/22/23 1144 <Electronically signed by Catarino Dominguez MD> Cosigner Signature (if applicable): CC: ~ Signed [facility] Work Phone: 1(347) 724-678608-21-2023 History of Present illness Narrative* Ny Lim [...] 19, 2023 4:22 PM documented in this encounterA[facility] History of Present illness Narrative* Wilbur Youssef MD - 04/15/2023 11:53 AM EDT Images from the original note were not included. Heart , Vascular and Thoracic [place] DEPARTMENT OF VASCULAR SURGERY VASCULAR SURGERY INITIAL CONSULT/ H+P SERVICE DATE: 04/15/2023 SERVICE TIME: 11:53 AM PRIMARY CARE PHYSICIAN: Lenin Bhatt MD REFERRING PROVIDER: Pavan Mcclure DPM [address] [facility] [id number] Consult requested for an opinion regarding the [...] block, left CAD (coronary artery disease) Cardiomyopathy ([facility]) CHF (congestive heart failure) ([facility]) COVID-19 08/28/2020 Decubitus ulcer, stage 2 ([facility]) 09/15/2015 Essential hypertension 07/20/2016 Gram-negative sepsis, unspecified ([facility]) 09/15/2015 UTI HTN (hypertension) Hyperlipidemia 07/20/2016 Impaired fasting glucose 07/25/2016 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 Aramis Nielson, Neurology Seizure disorder ([facility]) 03/2013 Shortness of breath Stroke (cerebrum) ([facility]) 2016 recurrent Stroke ([facility]) 04/22/2013 aphasia,left facial droop PAST SURGICAL HISTORY [...] the plan as outlined. documented in this encounterA[facility]08-16-2023 Miscellaneous Notes* Telephone Encounter - Lenin Bhatt MD - 04/14/2023 1:46 PM EDT Please fax letter. documented in this encounterA[facility]08-03-2023 Progress note Author Catarino Dominguez [facility] April 01, 2023 12:30pm Note Date/Time April 01, 2023 12: 30pm [facility] [address] [place] [id number] Progress Note - Wound Care 04/01/23 1226 MR#: [id number] Acct: [id number] Name: DALIA LOPEZ Rep #:[id number] : 1950 72 From: Catarino santiago MD PCP: Dr. Lenin Bhatt MD Status:R EG RCR Location: History of Present Illness Date of Service: 04/01/23 Chief Complaint: Non healing sacral ulcer History of Wound: Ms. Lopez is a 72-year-old who was referred to the wound center due to nonhealing sacral ulcer. Not very clear on how long it has been there but her son states that it was brought to his attention 2 to 3 weeks ago. She has been applying nystatin cream to the area. History of CVAs with minimalactivity. No known history of diabetes. No chills, fever or otherwise feeling of unwell reported. Progress of Wound: No new concerns reported at this time. Some improvement noted. Objective Data Objective Data Vital Signs: Vital Signs Temp Pulse Resp BP O2 Del Method 97.9 F 83 16 95/38 L Room Air 04/01/23 10:58 03/30/23 00:24 04/01/23 10:58 03/30/23 00:24 04/01/23 10:58 Oxygen Delivery Method Room Air Weight: 170 lb Body Mass Index (BMI) 29.2 Charges/Coding Procedures Integumentary 111xxx-113xx: [id number] Maria M subq tissue 20 sq cm/< Physical Exam Const alert, oriented x3 and no apparent distress General Appearance: cooperative and comfortable HEENT normocephalic and head/scalp atraumatic Eyes EOMs intact bilaterally Neck full ROM and supple General: normal visual inspection Resp normal respiratory effort Effort and Inspection: able to speak in complete sentences Skin Wounds: wounds noted Neuro oriented x3, CN's II-XII intact bilaterally and moves all extremities Psych mental status grossly normal, thought process normal and cooperative Debridement Note Debridement Note Wound debrided: Sacral Wound Grade/Stage: Stage III Type of Debridement: Excisional debridement Anesthesia Used: 4% Lidocaine Solution Depth: Down to and including healthy tissue and in the subcutaneous layer Percentage of wound debrided: 100 Instrument Used: 3mm curette Tissue Removed: Slough and devitalized tissue Severity: Fat Layer Exposed Amount of bleeding with debridement: Mild Bleeding Controlled with: Pressure Patient tolerated procedure: Patient tolerated procedure well Post-Debridement Measurements and Additional Note: Post-Debridement Measurements/Treatment - Nurse 1 - General Ulcer Assessment Start: 04/01/23 10:56 Freq: Status: Active Protocol: LAURIE Activity Type Activity Date Activity User E-sign Co-sign Detail Recorded Client Recorded Date Recorded By Document 04/01/23 10:58 [facility] [id number] 04/01/23 11:04 [facility] 04/01/23 10:58 - Today's Visit Information Type of service Follow-up Visit (Physician/[employer] HAND ) Arrival Mode Wheelchair Transfer Assistance Other Transfer Assist (Other) 2 Accompanied by SON Patient Identification Verified (Name & Yes ) Patient Requires Transmission-Based No Precautions Height and Weight Body Mass Index (BMI) 29.2 BMI Classification Overweight Vital Signs Temperature (97.8 F-99.1 F) 97.9 F Temperature Source Temporal Pulse Location Monitor Respiratory Rate (12-18) 16 Respiratory rate source Observation Oxygen Delivery Method Room Air Source Monitor Position Sitting Blood Pressure Location Left Arm History Since Last Visit- (Skip if this is Patient's initial visit) Have you changed medications since your No last visit? Any new allergies or adverse reactions No Had a fall/change in ADL's that may No increase risk of falls Signs or symptoms of abuse and/or No neglect since last visit Have you been in the hospital since your No last visit? Has dressing in place as prescribed Yes Has compression in place as prescribed N/A Has offloadiing in place as prescribed N/A Experienced any changes in pain level or No management Left Footwear Regular Shoe Right Footwear Regular Shoe Pain Scale: 0-10 Numeric Is Patient Pain Free? Yes - Nurse 1 - General Ulcer Measurement Start: 04/01/23 10:56 Freq: Status: Active Protocol: Activity Type Activity Date Activity User E-sign Co-sign Detail Recorded Client Recorded Date Recorded By Document 04/01/23 10:58 [facility] [id number] 04/01/23 11:04 [facility] 04/01/23 10:58 Wound Center Nurse 1 #1- SACRAL -Combined with other wound No -Current Size (cm) - Length 1.4 -Current Size (cm) - Width 0.5 -Current Size (cm) - Depth 1 -Total Square Cm 0.70 -Date of Last Picture (Recall this 04/01/23 field) -Photo Taken Yes -Epithelialization Small 1-33% -Tunneling No -Undermining/Tunneling No -Circular Undermining No -Exudate Amt Medium -Exudate Type Serosanguineous -Wound Margin Distinct, Outline Attached -Granulation Amt Large (67-100%) -Granulation Quality Red -Slough/Fibrin No -Necrosis Amt None Present (0 %) -Texture (Tsering-wound Skin Appearance) Assessed, Scarring -Moisture (Tsering-wound Skin Appearance) Assessed -Color (Tsering-wound Skin Appearance) Assessed, Erythema -Temperature (Tsering-wound Skin No Abnormality Appearance) (Pt Warm) -Tenderness on Palpation (Tsering-wound No Skin Appearance) -Ulcer Cleansing Rinsed/ Irrigated with Saline -Foul Odor after Cleansing No -Anesthetic Used 5% Lidocaine Gel - Nurse 2 - General Ulcer CM Notes Start: 04/01/23 10:56 Freq: Status: Active Protocol: Activity Type Activity Date Activity User E-sign Co-sign Detail Recorded Client Recorded Date Recorded By Document 04/01/23 11:13 MW [id number] 04/01/23 11:21 MW 04/01/23 11:13 Wound Center Nurse 2 -Time 11:13 -Correct Patient Yes -Correct Side, Site, Position Yes -Correct Procedure Yes -Procedure Performed Yes -Type of Procedure Debridement -Clinical Debridement Subcutaneous -Tissue Removed Subcutaneous -Post Debridement (cm) - Length 1.3 -Post Debridement (cm) - Width 0.7 -Post Debridement (cm) - Depth 1.0 -Total Square (Post) (cm) 0.91 -Area of Debridement (cm) - Length 1.3 -Area of Debridement (cm) - Width 0.7 -Total Square (Area) (cm) 0.91 -Tunneling No -Undermining/Tunneling No -Circular Undermining No -Wound/Ulcer Outcome Not Healed -Ulcer Cleansing Rinsed/ Irrigated with Saline -Foul Odor after Cleansing No -Bioengineered Tissue No -Bleeding Controlled with Pressure -Treatment Response Procedure Tolerated Well -Offloading No -Debridement - Subq, 1st 20sq cm Yes Pain Scale: 0-10 Numeric Is Patient Pain Free? Yes - Nurse 3 - General Ulcer D/C NN Start: 04/01/23 10:56 Freq: Status: Active Protocol: Activity Type Activity Date Activity User E-sign Co-sign Detail Recorded Client Recorded Date Recorded By Document 04/01/23 11:30 RB [id number] 04/01/23 11:30 RB 04/01/23 11:30 Wound Care Center Nurse 3 #1- SACRAL -Ulcer Cleansing Rinsed/ Irrigated with Saline -Primary Dressing Applied Aquacel Extra, NonAdherent Contact Layer -Other Dressing abd -Aquacel Extra 1 Treatment Response Procedure Tolerated Well Pain Scale: 0-10 Numeric Is Patient Pain Free? Yes WC - Visit Discharge Discharge Condition Stable Ambulatory Status Wheelchair Transportation Private Auto Medication Reconcilliation completed & No provided to patient/care provider Clinical Summary of Care Provided Yes Assessment/Plan Assessment/Plan (1) Sacral decubitus ulcer, stage III: CODE(S): L89.153 - Pressure ulcer of sacral region, stage 3 (2) History of stroke: CODE(S): Z86.73 - Personal history of transient ischemic attack (TIA), andcerebral infarction without residual deficits (3) Debility: CODE(S): R53.81 - Other malaise PLAN: Plan Debridement done as documented above, procedure was well-tolerated. Continue Aquacel extra, cover with Adaptic and foam dressing. Change daily to twice daily depending on drainage soilage. Continue offloading and adequate protein intake. Patient now open to home health. Order signed. Their questions were answered and they were advised to call with any further questions or concerns. Follow-up in a week or sooner if needed. This note was generated with TranslationExchangeation software. It may contain incorrectwords, spelling, and punctuation that were not noted in checking the note beforesigning. 04/01/23 1230 <Electronically signed by Catarino Dominguez MD> Cosigner Signature (if applicable): CC: ~ Signed [facility] Work Phone: 1(619) 101-888707-28-2023 History and physical note Author Catarino Dominguez [facility] March 26, 2023 5:01pm Note Date/Time March 25, 2023 11:[address] [facility] [address] [place] [id number] H&P Exam - Wound Care 03/25/23 1134 MR#: [id number] Acct: [id number] Name: DALIA LOPEZ Rep #:[id number] : 1950 72 From: Catarino santiago MD PCP: Dr. Lenin Bhatt MD Status:R SHREYA RCR Location: History of Present Illness Date of Service: 03/25/23 Chief Complaint: Non healing sacral ulcer History of Wound: Ms. Lopez is a 72-year-old who was referred to the wound center due to nonhealing sacral ulcer. Not very clear on how long it has been there but her son states that it was brought to his attention 2 to 3 weeks ago. She has been applying nystatin cream to the area. History of CVAs with minimalactivity. No known history of diabetes. No chills, fever or otherwise feeling of unwell reported. [facility] Medical History (Updated 03/25/23 @ 12:[address] Catarino Dominguez MD) CAD (coronary artery disease) COVID-19 Debility Depression Heart failure History of stroke HTN (hypertension) Hyperlipemia Hypothyroid Iron deficiency anemia Sacral decubitus ulcer, stage III Seizure Vertigo Home Medications atorvastatin 20 mg tablet 20 mg PO QHS cholesterol 08/17/18 [History Last Taken 08/27/20] clopidogrel 75 mg tablet 75 mg PO DAILY 08/17/18 [History Last Taken 08/28/20] levetiracetam 500 mg tablet 500 mg PO BID seizures 08/17/18 [History Last Taken 08/28/20] levothyroxine 50 mcg tablet 50 mcg PO DAILY Thyroid 08/17/18 [History Last Taken 08/28/20] sertraline 100 mg tablet 150 mg PO QHS depression 08/17/18 [History Last Taken 08/27/20] aspirin 81 mg tablet,delayed release 81 mg PO DAILY@0800 08/28/20 [History Last Taken 08/28/20] carvedilol 12.5 mg tablet 12.5 mg PO BID heart 08/28/20 [History Last Taken 08/28/20] multivitamin-iron 9 mg-folic acid 400 mcg-calcium and minerals tablet 1 tab PO DAILY supplement 08/28/20 [History Last Taken 08/28/20] lisinopril 5 mg tablet 5 mg PO QHS bp ##0 08/31/20 [Rx Last Taken 08/27/20] albuterol sulfate 2.5 mg/3 mL (0.083 %) solution for nebulization 1.25 mg inhalation Q6H PRN shortness of breath or wheezing 03/25/23 [History Last Taken Unknown] albuterol sulfate 90 mcg/actuation aerosol inhaler (ProAir HFA) 2 inh [id number] PRN shortness of breath or wheezing 03/25/23 [History Last Taken Unknown] furosemide 20 mg tablet 20 mg PO DAILY 03/25/23 [History Last Taken Unknown] spironolactone 25 mg tablet (Aldactone) 25 mg PO DAILY 03/25/23 [History Last Taken Unknown] Allergy/AdvReac Type Severity Reaction Status Date / Time No Known Allergies Allergy Verified 03/25/23 09:04 Social History Smoking Status: Former smoker ROS Constitutional Constitutional: Reports frequent falls; Denies excessive sweating, fever(s), headache(s), increased appetite or night sweats Eyes Eyes: Denies change in eye color, change in vision, discharge from eye(s), discongugate gaze, excessive blinking or exophthalmos ENT HEENT: Denies mouth pain, mucositis, nasal congestion, nasal discharge, nasal obstruction or neck mass Cardiovascular Cardiovascular: Denies clubbing, cold extremities, cyanosis, diaphoresis, dizziness or dyspnea at rest Respiratory/Chest Respiratory/Chest: Denies difficulty clearing secretions, dry cough, excessive phlegm production, hemoptysis, hoarseness or inability to speak Gastrointestinal Gastrointestinal: Denies abdominal pain, bloating, chewing difficulty, dry heaves, excessive flatus or fecal incontinence Genitourinary Genitourinary: Denies abdominal discomfort, difficulty urinating or flank pain Musculoskeletal Musculoskeletal: Denies joint swelling, muscle cramps, muscle weakness, numbnessor tremors Integumentary Integumentary: Reports skin ulcer; Denies erythema, furuncle, hirsutism, jaundice or skin swelling Neurologic Neurologic: Denies behavior changes, burning sensations, confusion, disequilibrium, focal weakness, frequent falls or memory loss Psychiatric Psychiatric: Denies auditory hallucinations, behavioral changes, irritability, mood swings, panic attacks or paranoia Endocrine Endocrinology: Denies deepening of the voice, excessive sweating, heat intolerance, increase in ring/shoe/hat size or palpitations Allergic/Immunologic Allergic/Immunologic: Denies itchy eyes, lip swelling, throat swelling, tongue swelling, hives, urticaria or wheezing Vital Signs Vital Signs Vital Signs: 03/25/23 09:04 Temperature 97.6 F L Temperature Source Temporal Pulse Rate 83 Respiratory Rate 16 Blood Pressure 95/38 L Blood Pressure Mean 57 Blood Pressure Source Monitor Blood Pressure Position Sitting Blood Pressure Location Left Arm Oxygen Delivery Method Room Air Weight Weight: 170 lb Body Mass Index (BMI) 29.2 Physical Exam Const alert, oriented x3 and no apparent distress General Appearance: cooperative and comfortable HEENT normocephalic and head/scalp atraumatic Eyes EOMs intact bilaterally Neck full ROM and supple General: normal visual inspection Resp normal respiratory effort and normal air movement Effort and Inspection: able to speak in complete sentences Cardio regular rate, regular rhythm, S1 normal heart sound and S2 normal heart sound GI soft to palpation, non-tender and non-distended Skin Wounds: wounds noted Neuro oriented x3, CN's II-XII intact bilaterally and moves all extremities Psych mental status grossly normal, thought process normal and cooperative Debridement Note Debridement Note Wound debrided: Sacral Wound Grade/Stage: Stage III Type of Debridement: Excisional debridement Anesthesia Used: 4% Lidocaine Solution Depth: Down to and including healthy tissue and in the subcutaneous layer Percentage of wound debrided: 100 Instrument Used: 3mm curette Tissue Removed: Slough and devitalized tissue Severity: Fat Layer Exposed Amount of bleeding with debridement: Mild Bleeding Controlled with: Pressure Patient tolerated procedure: Patient tolerated procedure well Post-Debridement Measurements and Additional Note: Post-Debridement Measurements/Treatment - Nurse 1 - General Ulcer Assessment Start: 03/25/23 09:04 Freq: Status: Active Protocol: LAURIE Activity Type Activity Date Activity User E-sign Co-sign Detail Recorded Client Recorded Date Recorded By Document 03/25/23 09:04 [facility] [id number] 03/25/23 09:14 [facility] 03/25/23 09:04 - Today's Visit Information Type of service Initial Visit Arrival Mode Wheelchair Transfer Assistance Other Transfer Assist (Other) 2 stand by; Accompanied by son Patient Identification Verified (Name & Yes ) Patient Requires Transmission-Based No Precautions Height and Weight Height 5 ft 4 in Weight 170 lb Weight in Pounds 170.0 lbs Weight Measurement Method Estimated by Patient Body Mass Index (BMI) 29.2 BMI Classification Overweight BSA - Tr 1.83 Vital Signs Temperature (97.8 F-99.1 F) 97.6 F L Temperature Source Temporal Pulse Rate (60-100) 83 Pulse Location Monitor Respiratory Rate (12-18) 16 Respiratory rate source Observation Oxygen Delivery Method Room Air Blood Pressure (90/60-120/80) 95/38 L Blood Pressure Mean 57 Source Monitor Position Sitting Blood Pressure Location Left Arm History Since Last Visit- (Skip if this is Patient's initial visit) Left Footwear Regular Shoe Right Footwear Regular Shoe Pain Scale: 0-10 Numeric Is Patient Pain Free? Yes Communication Assessment Preferred language Romanian Nanotechnology Engineering Technologist Required No Able to Read Yes Able to Write Yes Communication Tools None Right Hearing Abillity Normal Left Hearing Abillity Normal Visual Assistive Devices None Teaching Assessment Preferences Verbal,Written, Audio/Visual, Demonstration Readiness To Learn Good Willingness to Engage in Self Management Med Activies Readiness to Engage in Self Management Med Activities Anxiety Level Calm Cooperation Cooperative Perception Coherent Interest in Health Problem Asks Questions Education Importance Acknowledges Need Does Patient Smoke tobacco or other No substances Smoking Status Former smoker Is Patient Diabetic Yes Functional Assessment Recent Decline in Ability to Perform Denies Any Declines 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 Cultural/Taoism Needs that may affect No Treatment Plan Teaching: Wound Center *Welcome to the Wound Center -Person Taught Patient,Family -Teaching Method Discussion -Response to teaching Verbalize understanding Welcome to the Wound Care Center English CHANDRA - Nurse 1 - General Ulcer Measurement Start: 03/25/23 09:04 Freq: Status: Active Protocol: Activity Type Activity Date Activity User E-sign Co-sign Detail Recorded Client Recorded Date Recorded By Document 03/25/23 09:04 [facility] [id number] 03/25/23 09:14 [facility] 03/25/23 09:04 Wound Center Nurse 1 #1- SACRAL -Combined with other wound No -Current Size (cm) - Length 1.5 -Current Size (cm) - Width 0.3 -Current Size (cm) - Depth 0.6 -Total Square Cm 0.45 -Date of Last Picture (Recall this 03/25/23 field) -Photo Taken Yes -Epithelialization None Present -Tunneling No -Undermining/Tunneling No -Circular Undermining No -Exudate Amt Medium -Exudate Type Serosanguineous -Wound Margin Distinct, Outline Attached -Granulation Amt Large (67-100%) -Granulation Quality Red -Slough/Fibrin No -Necrosis Amt None Present (0 %) -Texture (Tsering-wound Skin Appearance) Assessed, Scarring -Moisture (Tsering-wound Skin Appearance) Assessed -Color (Tsering-wound Skin Appearance) Assessed -Temperature (Tsering-wound Skin No Abnormality Appearance) (Pt Warm) -Tenderness on Palpation (Tsering-wound No Skin Appearance) -Ulcer Cleansing Soap and Water -Foul Odor after Cleansing No -Anesthetic Used 5% Lidocaine Gel - Nurse 2 - General Ulcer CM Notes Start: 03/25/23 09:04 Freq: Status: Active Protocol: Activity Type Activity Date Activity User E-sign Co-sign Detail Recorded Client Recorded Date Recorded By Document 03/25/23 09:41 MW [id number] 03/25/23 09:54 MW 03/25/23 09:41 Wound Center Nurse 2 -Time 09:41 -Correct Patient Yes -Correct Side, Site, Position Yes -Correct Procedure Yes -Procedure Performed Yes -Type of Procedure Debridement -Clinical Debridement Subcutaneous -Tissue Removed Subcutaneous -Post Debridement (cm) - Length 2.0 -Post Debridement (cm) - Width 1.0 -Post Debridement (cm) - Depth 1.3 -Total Square (Post) (cm) 2.00 -Area of Debridement (cm) - Length 2.0 -Area of Debridement (cm) - Width 1.0 -Total Square (Area) (cm) 2.00 -Tunneling No -Undermining/Tunneling No -Circular Undermining No -Wound/Ulcer Outcome Not Healed -Ulcer Cleansing Rinsed/ Irrigated with Saline -Foul Odor after Cleansing No -Bioengineered Tissue No -Bleeding Controlled with Pressure -Treatment Response Procedure Tolerated Well -Offloading No -Debridement - Subq, 1st 20sq cm Yes Pain Scale: 0-10 Numeric Is Patient Pain Free? Yes - Nurse 3 - General Ulcer D/C NN Start: 03/25/23 09:04 Freq: Status: Active Protocol: Activity Type Activity Date Activity User E-sign Co-sign Detail Recorded Client Recorded Date Recorded By Document 03/25/23 09:58 [id number] 03/25/23 09:59 RB 03/25/23 09:58 Wound Care Center Nurse 3 #1- SACRAL -Ulcer Cleansing Rinsed/ Irrigated with Saline -Primary Dressing Applied Aquacel Extra, Mepilex Border, NonAdherent Contact Layer -Aquacel Extra 1 -Mepilex Border 2 Treatment Response Procedure Tolerated Well Pain Scale: 0-10 Numeric Is Patient Pain Free? Yes WC - Visit Discharge Discharge Condition Stable Ambulatory Status Wheelchair Transportation Private Auto Medication Reconcilliation completed & No provided to patient/care provider Clinical Summary of Care Provided Yes Charges/Coding Visit Charges Office Visits / Consults: 06306 OV L3 New Procedures Integumentary 111xxx-113xx: 05577 Maria M subq tissue 20 sq cm/< Assessment/Plan Assessment/Plan (1) Sacral decubitus ulcer, stage III: CODE(S): L89.153 - Pressure ulcer of sacral region, stage 3 (2) History of stroke: CODE(S): Z86.73 - Personal history of transient ischemic attack (TIA), andcerebral infarction without residual deficits (3) Debility: CODE(S): R53.81 - Other malaise PLAN: Plan Debridement done as documented above, procedure was well-tolerated. Aquacel extra, cover with Adaptic and foam dressing. Change daily to twice daily depending on drainage soilage. Offloading very strongly recommended. Adequate protein intake also discussed, her son voiced understanding. We will look into getting home health, patient is not very open to this but I believe she will benefit from it. Cultures taken, will review at next visit. Their questions were answered and they were advised to call with any further questions or concerns. Follow-up in a week or sooner if needed. This note was generated with [employer] dictation software. It may contain incorrectwords, spelling, and punctuation that were not noted in checking the note beforesigning. 03/26/23 1701 <Electronically signed by Catarino Dominguez MD> Cosigner Signature (if applicable): CC: ~ Signed [facility] Work Phone: [phone] Miscellaneous Notes* Letter - Coordinator, Mammography - 03/23/2023 8:46 AM EDT March 24, 2023 PID: [id number] Dalia Lopez [address] [place] [address] Dear Ms. Lopez, We are pleased to [...] report will be kept on file at [facility] as part of your permanent medical record and are available for your continuing care. Thank you for allowing us to help in meeting your health care needs. Sincerely, Dr. De Anda Interpreting Radiologist [facility] (Normal over 40) documented in this encounterAultman Alliance Community Hospital07-24-2023 History of Present illness Narrative* Felicia [...] 22, 2023 1:59 PM documented in this encounterAultman Alliance Community Hospital07-14-2023 History of Present illness Narrative* Pavan [...] have history of smoking. She quit in 2019. She has history of pad. 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 Aramis Nielson, Neurology Seizure disorder ([facility]) 03/2013 Shortness of breath Stroke (cerebrum) ([facility]) 2015 recurrent Stroke ([facility]) 04/22/2013 aphasia,left facial droop Current Outpatient Medications [...] q8 Pavan Mcclure DPM Podiatry [address] [facility] [address] Dept: [phone] Dept * Jesika Roblero LPN - 03/12/2023 10:35 AM EDT AMB ROOMING INTAKE FLOWSHEET DATA Patient presents with: Left Foot - New, Pain, Swelling, nail deformity Right Foot - New, Pain, Swelling, nail deformity Patient present to office with son. Jesika Roblero LPN documented in this encounterAultman Alliance Community Hospital07-14-2023 History of Present illness Narrative* Supriya Mccoy RT(R) - 03/12/2023 10:30 AM EDT Radiology [...] IV DATA: Not applicable SIGNED BY: RT Lizeth(Malina) March 12, 2023 10:16 AM documented in this encounterAultman Alliance Community Hospital07-06-2023 History of Present illness Narrative* Lenin Bhatt MD - 03/04/2023 5:47 PM EDT This note was created using Incipientriter. Subjective Dalia Lopez is a 72 year [...] Accident (Cva) (Hcc) Pvd (Peripheral Vascular Disease) ([facility]) Acquired Hypothyroidism Hyperlipidemia Anxiety Associated [...] 84 Resp 20 Ht 160 cm (5' 3) Wt 72.6 kg (160 lb) SpO2 96% [...] (HCC) - ICD9: 707.03, 707.22, ICD10: L89.152 [facility]. 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 Aramis Nielson, Neurology Seizure disorder ([facility]) 03/2013 Shortness of breath Stroke (cerebrum) ([facility]) 2015 recurrent Stroke ([facility]) 04/22/2013 aphasia,left facial droop PAST [...] 84 Resp 20 Ht 160 cm (5' 3) Wt 72.6 kg (160 lb) BMI 28.34 [...] screening Lenin Bhatt MD documented in this encounterAultman Alliance [facility] Hospital06-29-2023 Miscellaneous Notes* Telephone Encounter - Sheila [...] you. Sheila Munoz LPN documented in this encounterAultman Alliance Community Hospital02-28-2023 Miscellaneous Notes* Telephone Encounter - Sherrie Leroy Guadarrama RN - 10/27/2022 11:38 AM [...] 01/21/2021 10 AST (U/L) Date Value 12/15/2021 01/21/2021 16 Please advise. Thank you. Sherrie Guadarrama RN documented in this encounterAultman Alliance Community Hospital01-30-2023 History of Present illness Narrative* Aramis Cheng MD - 09/28/2022 1:47 PM EST NEUROLOGY Outpatient Follow-Up [facility] Epilepsy [address], [address] [place] [address] (office) / [phone] (fax) Patient Name: Dalia Lopez : 1950 MR #: [id number] Date of Neurology Follow-up: 09/28/22 Name of Neurologist: Aramis Cheng MD, ABPN Other Physicians: Lenin Bhatt MD (Primary Care Physician) Chief Complaint: Follow-up for Seizures (Pt here for follow up. Pt states that she has been ok. PT has not had a seizure since 2013. //Pts son wonders if she might have [...] in 1 year Aramis Cheng MD, ABPN, FAES Adult Neurologist & Epileptologist [facility] Neurological Physicians [facility] A Level 4, NAEC-Certified Epilepsy Center documented in this [id number] Telephone encounter Note* Telephone Encounter - Kristine Downing RN - 08/04/2022 10:59 AM EST Patients son/POA called to request that we send a script for the patients Keppra 500 mg twice a dayto the [facility] as she is no longer using the [facility]. He is also requesting that we let him know the date and time of patients upcoming appointment with Dr. Cheng. Called patients son and let him know that we will have a script sent to the [facility] and that patients appointment is on 08/14 at 11:00 AM and encouraged him to call with any questions or concerns. Dr. Cheng- See attached script for Keppra 500 mg twice a day. [id number] Miscellaneous Notes* Telephone Encounter - Kristine Downing RN - 08/04/2022 10:59 AM EST Patients son/POA called to request that we send a script for the patients Keppra 500 mg twice a dayto the [facility] as she is no longer using the [facility]. He is also requesting that we let him know the date and time of patients upcoming appointment with Dr. Cheng. Called patients son and let him know that we will have a script sent to the [facility] and that patients appointment is on 08/14 at 11:00 AM and encouraged him to call with any questions or concerns. Dr. Cheng- See attached script for Keppra 500 mg twice a day. documented in this [id number] Miscellaneous Notes* Telephone Encounter - Yohan Bustillo Ma - 08/03/2022 4:14 PM EST Spoke with patient's son William - [facility] - no longer using [facility]. * Telephone Encounter - Moira Brandon APRN.CNP - 08/03/2022 4:04 PM EST Patient was getting prescriptions from [facility], does she want them from [facility] now? Moira Barndon APRN.CNP * Telephone Encounter - Lorri Chuck [...] notify patient. Lorri Woods documented in this encounterAultman Alliance Community Hospital12-05-2022 Miscellaneous Notes* Telephone Encounter - Yohan [...] pharmacy. Yohan Bustillo Ma documented in this encounterAultman Alliance Community Hospital12-02-2022 Miscellaneous Notes* Telephone Encounter - Suha [...] Thank you. Bettie Michaud documented in this encounterAultman Alliance Community Hospital11-22-2022 Miscellaneous Notes* Telephone Encounter - April [...] accordingly. April Vora LPN documented in this encounterAultman Alliance Community Hospital11-11-2022 Miscellaneous Notes* Telephone Encounter - Moira [...] fatigued, fell at home today and has foul,fishy smelling urine. Advised appointment and he declined due to transportation issues. Advised she may need UA/C+S in lab. He states she won't be able to come to lab due to transportation issues. Patient is scheduled for follow up appointment with PCP on 07/16. Edmund Gomes RN documented in this encounterAultman Alliance Community Hospital11-02-2022 Miscellaneous Notes* Telephone Encounter - Divya Ibanez RN - 07/01/2022 12:57 PM EDT Last Office Visit: 12/12/2021 Future Office Visit: 07/01/2022 Requested Prescriptions Pending Prescriptions Disp Refills atorvastatin (LIPITOR) 20 mg tablet 90 tablet 3 Sig: Take 1 tablet by mouth once daily. Date of Last Labs: 12/15/2021 documented in this encounterAultman Alliance Community Hospital10-12-2022 History of Present illness Narrative* Jonathan [...] to establish with me as her previous endocrinology specialist in [place] was not having follow-upappointments that they could [...] block, left CAD (coronary artery disease) Cardiomyopathy ([facility]) CHF (congestive heart failure) ([facility]) COVID-19 08/28/2020 Decubitus ulcer, stage 2 ([facility]) 09/15/2015 Essential hypertension 07/20/2016 Gram-negative sepsis, unspecified ([facility]) 09/15/2015 UTI HTN (hypertension) Hyperlipidemia 07/20/2016 Impaired fasting glucose 07/25/2016 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 Aramis Nielson, Neurology Seizure disorder ([facility]) 03/2013 Shortness of breath Stroke (cerebrum) ([facility]) 2015 recurrent Stroke ([facility]) 04/22/2013 aphasia,left facial droop PAST [...] once daily. Multivitamin daily - chelle tab. [facility] # [id number] carvedilol (COREG) 12.5 mg tablet Take 1 [...] 113/45 Pulse 83 Ht 162.6 cm (5' 4.02) Wt 70.8 kg (156 lb) BMI 26.76 [...] oxygen. Jonathan Aguila MD documented in this encounterAultman Alliance Community Hospital10-06-2022 Miscellaneous Notes* Telephone Encounter - Gloria Martinez RN - 06/04/2022 12:45 PM EDT Sherman Cabrales called in asking about the Pts Multivitamin. Let him know that it was sent in yesterday at 810 am, and their pharmacy had confirmed it. He said he will check to see if it had been received. documented in this encounterAultman Alliance Community Hospital10-05-2022 Miscellaneous Notes* Telephone Encounter - Vanita Easton RN - 06/03/2022 11:15 AM EDT Patient's son William returned call and given provider's message below and patient verbalized understanding. Janice Easton RN * Telephone Encounter - Yohan Bustillo Ma - 06/03/2022 10:36 AM EDT Left message to call office. 06/03/2022 10:36 AM Letter taken to Medical Records for lease picker. Please advise William. * Telephone Encounter - Patience Ridley LPN - 06/03/2022 9:10 AM EDT Pt's son William calling to request a letter for pt for heat assistance through [employer]. William said letter is to state pt is disabled & why she is disabled. William states pt had a stroke, has CHF etc. Please call William if/when ready & he'll lease picker in med recs. Patience Ridley LPN documented in this encounterAultman Alliance Community Hospital10-04-2022 Miscellaneous Notes* Telephone Encounter - Nelly Corey [facility] - 06/02/2022 12:39 PM EDT Patient has been identified by name and date of : Yes Requested Prescriptions Pending Prescriptions Disp Refills multivitamin tablet 90 tablet 3 Sig: Take 1 tablet by mouth once daily. Multivitamin daily - chelle tab. [facility] # [id number] RX INSTRUCTIONS: Patient aware RX will be sent to pharmacy. No need to notify patient. [facility] documented in this encounterAultman Alliance Community Hospital09-19-2022 Miscellaneous Notes* Telephone Encounter - April Vora LPN - 05/18/2022 7:01 AM EDT Patient's request for medication is as follows: Requested Prescriptions Pending Prescriptions Disp Refills carvedilol (COREG) 12.5 mg tablet [Pharmacy Med Name: Carvedilol 12.5mg Tablet] 180 tablet 0 Sig: Take 1 tablet by mouth twice daily with meals. Last seen 04/16/2021 in [place]. Follow up scheduled for 06/10/2022. Prescription(s) as above. Please process accordingly. April Vora LPN documented in this encounterAultman Alliance Community Hospital08-19-2022 Miscellaneous Notes* Telephone Encounter - CARLEEN Russ - 04/17/2022 9:01 AM EDT Patient sees Dr Aguila in [place]. Spoke with patient's son, and provided him the number to the [place] location. Felecia Walter April 17, 2022 9:02 AM * Telephone Encounter - Beti Farias LPN - 04/17/2022 8:00 AM EDT Please call this Dr Aguila patient to make a follow up visit with Dr Aguila or [facility]. She was last seen on 04-16-2022 and was to be seen again in September of 2021. Thank you, Beti Farias LPN documented in this encounterAultman Alliance Community Hospital08-19-2022 Miscellaneous Notes* Telephone Encounter - Beti [...] you, Beti Farias LPN documented in this encounterAultman Alliance Community Hospital08-08-2022 Miscellaneous Notes* Telephone Encounter - VÍCTOR [...] and advise. VÍCTOR Alexandre documented in this encounterAultman Alliance Community Hospital08-05-2022 Miscellaneous Notes* Telephone Encounter - Colette [...] Urine cx+ abx sent documented in this encounterAultman Alliance Community Hospital08-03-2022 History of Present illness Narrative* Zachariah [...] once daily. Multivitamin daily - chelle tab. [facility] # [id number] spironolactone (ALDACTONE) 25 mg tablet Take 1 [...] unspecified HF chronicity, unspecified heart failure type ([facility]) - ICD9: 428.9, ICD10: I50.9Acute on chronic respiratory failure with hypoxemia ([facility]) - ICD9: 518.84, ICD10: J96.21Pulse oximetry is [...] disease) Cardiomyopathy (HCC) CHF (congestive heart failure) ([facility]) COVID-19 08/28/2020 Decubitus ulcer, stage 2 ([facility]) 09/15/2015 Essential hypertension 07/20/2016 Gram-negative sepsis, unspecified ([facility]) 09/15/2015 UTI HTN (hypertension) Hyperlipidemia 07/20/2016 Impaired fasting glucose 07/25/2016 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 Aramis Nielson, Neurology Seizure disorder ([facility]) 03/2013 Shortness of breath Stroke (cerebrum) ([facility]) 2015 recurrent Stroke ([facility]) 04/22/2013 aphasia,left facial droop FAMILY [...] Gonzales Jr, MD 04/01/2022 documented in this encounterAultman Alliance Community Hospital05-16-2022 Miscellaneous Notes* Telephone Encounter - Sheila Munoz LPN - 01/12/2022 1:15 PM EDT Left message on vm, letter is ready for pickup in Med Rec. Sheila Munoz LPN * Telephone Encounter - Lenin Bhatt MD - 01/12/2022 12:29 PM EDT Printed. * Telephone Encounter - Elmira Britt Tam LPN - 01/12/2022 10:00 AM EDT Son calls in requesting a letter for pt to be excused from Jury Duty. He states pt has had a stroke, CHF, etc. Please advise son when done so he can lease picker. Time sensitive. Elmira Tam LPN documented in this encounterAultman Alliance Community Hospital05-10-2022 Miscellaneous Notes* Telephone Encounter - Sheila [...] pharmacy. No need to notify patient. Rosina Braxton Pss documented in this encounterAultman Alliance Community Hospital05-05-2022 Miscellaneous Notes* Telephone Encounter - Tsering Alfaro - 01/01/2022 10:39 AM EDT Spoke with William tammy. He states he will bring patient [...] asking if medication could be sent to [facility] in [place]. Please call [employer] number and advise. documented in this encounterAultman Alliance Community Hospital04-20-2022 Miscellaneous Notes* Telephone Encounter - Yohan Bustillo Ma - 12/17/2021 9:14 AM EDT Patient's son notified, verbalized understanding. Yohan Bustillo Ma * Telephone Encounter - Moira Brandon APRN.CNP - 12/17/2021 8:22 AM EDT Labs were normal except for anemia. Check iron levels Moira Brandon APRN.CNP documented in this encounterAultman Alliance Community Hospital04-15-2022 History of Present illness Narrative* Lenin Bhatt MD - 12/12/2021 3:00 PM EDT This note was created using Incipientriter. Subjective Dalia Lopez is a 71 year [...] Moderate Episode of Major Depressive Disorder (Hcc) Current Outpatient Medications Medication Sig sertraline (ZOLOFT) [...] once daily. Multivitamin daily - chelle tab. [facility] # [id number] spironolactone (ALDACTONE) 25 mg tablet Take 1 [...] Controlled. Lenin Bhatt MD documented in this encounterAultman Alliance Community Hospital04-13-2022 Miscellaneous Notes* Telephone Encounter - Sheila Santiago Tammy CUMMINGS - 12/10/2021 12:54 PM EDT Patient has [...] Not applicable Please advise. Thank you. Sheila Tammy CUMMINGS * Telephone Encounter - Jo Pittman Pss [...] patient. Jo Pittman Pss documented in this encounterAultman Alliance Community Hospital03-25-2022 Miscellaneous Notes* Telephone Encounter - Ermias [...] appointment. April Vora LPN documented in this encounterAultman Alliance Community Hospital03-25-2022 Miscellaneous Notes* Telephone Encounter - April [...] accordingly. April Vora LPN documented in this encounterAultman Alliance Community Hospital12-16-2021 History of Present illness Narrative* Aramis Cheng MD - 08/14/2021 10:56 AM EST NEUROLOGY Outpatient Follow-Up [facility] [address], [address] [place] [address] (office) / [phone] (fax) Patient Name: Dalia Lopez : 1950 MR #: [id number] Date of Neurology Follow-up: 08/14/21 Name of [...] MD, ABPN, FAСВЕТЛАНА Adult Neurologist & Epileptologist [facility] Neurological Physicians [facility]psy [facility] A Level 4, NA-Certified Epilepsy Center documented in this [id number] History of Past illness Narrative* Problem Noted Date Resolved Date Heart failure 08/31/2018 09/27/2020 Dizziness and giddiness 08/31/2018 11/15/19 19 Sebaceous cyst 09/19/2016 06/30/2017 documented as of this encounter (statuses as of 11/21/2021) [facility]01[facility] History of Past illness Narrative* Problem Noted Date Resolved Date Heart failure 08/31/2018 09/27/2020 Dizziness and giddiness 08/31/2018 11/15/19 19 Sebaceous cyst 09/19/2016 06/30/2017 documented as of this encounter (statuses as of 11/21/2021) [facility] History of Past illness Narrative* Problem Noted Date Resolved Date Heart failure 08/31/2018 09/27/2020 Dizziness and giddiness 08/31/2018 11/15/19 19 Sebaceous cyst 09/19/2016 06/30/2017 documented as of this encounter (statuses as of 12/10/2021) [facility]01[facility] History of Past illness Narrative* Problem Noted Date Resolved Date Heart failure 08/31/2018 09/27/2020 Dizziness and giddiness 08/31/2018 11/15/19 19 Sebaceous cyst 09/19/2016 06/30/2017 documented as of this encounter (statuses as of 12/12/2021) [facility]2019 History of Past illness Narrative* Problem Noted Date Resolved Date Heart failure 08/31/2018 09/27/2020 Dizziness and giddiness 08/31/2018 11/15/19 19 Sebaceous cyst 09/19/2016 06/30/2017 documented as of this encounter (statuses as of 12/17/2021) [facility] History of Past illness Narrative* Problem Noted Date Resolved Date Heart failure 08/31/2018 09/27/2020 Dizziness and giddiness 08/31/2018 11/15/19 19 Sebaceous cyst 09/19/2016 06/30/2017 documented as of this encounter (statuses as of 01/06/2022) [facility] History of Past illness Narrative* Problem Noted Date Resolved Date Heart failure 08/31/2018 09/27/2020 Dizziness and giddiness 08/31/2018 11/15/19 19 Sebaceous cyst 09/19/2016 06/30/2017 documented as of this encounter (statuses as of 01/12/2022) [facility] History of Past illness Narrative* Problem Noted Date Resolved Date Heart failure 08/31/2018 09/27/2020 Dizziness and giddiness 08/31/2018 11/15/19 19 Sebaceous cyst 09/19/2016 06/30/2017 documented as of this encounter (statuses as of 04/01/2022) [facility] History of Past illness Narrative* Problem Noted Date Resolved Date Heart failure 08/31/2018 09/27/2020 Dizziness and giddiness 08/31/2018 11/15/19 19 Sebaceous cyst 09/19/2016 06/30/2017 documented as of this encounter (statuses as of 04/03/2022) [facility] History of Past illness Narrative* Problem Noted Date Resolved Date Heart failure 08/31/2018 09/27/2020 Dizziness and giddiness 08/31/2018 11/15/19 19 Sebaceous cyst 09/19/2016 06/30/2017 documented as of this encounter (statuses as of 04/07/2022) [facility] History of Past illness Narrative* Problem Noted Date Resolved Date Heart failure 08/31/2018 09/27/2020 Dizziness and giddiness 08/31/2018 11/15/19 19 Sebaceous cyst 09/19/2016 06/30/2017 documented as of this encounter (statuses as of 04/17/2022) [facility] History of Past illness Narrative* Problem Noted Date Resolved Date Heart failure 08/31/2018 09/27/2020 Dizziness and giddiness 08/31/2018 11/15/19 19 Sebaceous cyst 09/19/2016 06/30/2017 documented as of this encounter (statuses as of 04/17/2022) [facility] History of Past illness Narrative* Problem Noted Date Resolved Date Heart failure 08/31/2018 09/27/2020 Dizziness and giddiness 08/31/2018 11/15/19 19 Sebaceous cyst 09/19/2016 06/30/2017 documented as of this encounter (statuses as of 05/18/2022) [facility] History of Past illness Narrative* Problem Noted Date Resolved Date Heart failure 08/31/2018 09/27/2020 Dizziness and giddiness 08/31/2018 11/15/19 19 Sebaceous cyst 09/19/2016 06/30/2017 documented as of this encounter (statuses as of 05/25/2022) [facility] History of Past illness Narrative* Problem Noted Date Resolved Date Heart failure 08/31/2018 09/27/2020 Dizziness and giddiness 08/31/2018 11/15/19 19 Sebaceous cyst 09/19/2016 06/30/2017 documented as of this encounter (statuses as of 06/03/2022) [facility] History of Past illness Narrative* Problem Noted Date Resolved Date Heart failure 08/31/2018 09/27/2020 Dizziness and giddiness 08/31/2018 11/15/19 19 Sebaceous cyst 09/19/2016 06/30/2017 documented as of this encounter (statuses as of 06/03/2022) [facility] History of Past illness Narrative* Problem Noted Date Resolved Date Heart failure 08/31/2018 09/27/2020 Dizziness and giddiness 08/31/2018 11/15/19 19 Sebaceous cyst 09/19/2016 06/30/2017 documented as of this encounter (statuses as of 06/04/2022) [facility] History of Past illness Narrative* Problem Noted Date Resolved Date Heart failure 08/31/2018 09/27/2020 Dizziness and giddiness 08/31/2018 11/15/19 19 Sebaceous cyst 09/19/2016 06/30/2017 documented as of this encounter (statuses as of 06/10/2022) [facility] History of Past illness Narrative* Problem Noted Date Resolved Date Heart failure 08/31/2018 09/27/2020 Dizziness and giddiness 08/31/2018 11/15/19 19 Sebaceous cyst 09/19/2016 06/30/2017 documented as of this encounter (statuses as of 07/01/2022) [facility] History of Past illness Narrative* Problem Noted Date Resolved Date Heart failure 08/31/2018 09/27/2020 Dizziness and giddiness 08/31/2018 11/15/19 19 Sebaceous cyst 09/19/2016 06/30/2017 documented as of this encounter (statuses as of 07/21/2022) [facility] History of Past illness Narrative* Problem Noted Date Resolved Date Heart failure 08/31/2018 09/27/2020 Dizziness and giddiness 08/31/2018 11/15/19 19 Sebaceous cyst 09/19/2016 06/30/2017 documented as of this encounter (statuses as of 07/31/2022) [facility] History of Past illness Narrative* Problem Noted Date Resolved Date Heart failure 08/31/2018 09/27/2020 Dizziness and giddiness 08/31/2018 11/15/19 19 Sebaceous cyst 09/19/2016 06/30/2017 documented as of this encounter (statuses as of 08/03/2022) [facility] History of Past illness Narrative* Problem Noted Date Resolved Date Heart failure 08/31/2018 09/27/2020 Dizziness and giddiness 08/31/2018 11/15/19 19 Sebaceous cyst 09/19/2016 06/30/2017 documented as of this encounter (statuses as of 08/03/2022) [facility] History of Past illness Narrative* Problem Noted Date Resolved Date Heart failure 08/31/2018 09/27/2020 Dizziness and giddiness 08/31/2018 11/15/19 19 Sebaceous cyst 09/19/2016 06/30/2017 documented as of this encounter (statuses as of 08/05/2022) [facility] History of Past illness Narrative* Problem Noted Date Resolved Date Heart failure 08/31/2018 09/27/2020 Dizziness and giddiness 08/31/2018 11/15/19 19 Sebaceous cyst 09/19/2016 06/30/2017 documented as of this encounter (statuses as of 10/29/2022) [facility] History of Past illness Narrative* Problem Noted Date Resolved Date Heart failure 08/31/2018 09/27/2020 Dizziness and giddiness 08/31/2018 11/15/19 19 Sebaceous cyst 09/19/2016 06/30/2017 documented as of this encounter (statuses as of 02/15/2023) [facility] History of Past illness Narrative* Problem Noted Date Resolved Date Heart failure 08/31/2018 09/27/2020 Dizziness and giddiness 08/31/2018 11/15/19 19 Sebaceous cyst 09/19/2016 06/30/2017 documented as of this encounter (statuses as of 02/26/2023) [facility] History of Past illness Narrative* Problem Noted Date Resolved Date Heart failure 08/31/2018 09/27/2020 Dizziness and giddiness 08/31/2018 11/15/19 19 Sebaceous cyst 09/19/2016 06/30/2017 documented as of this encounter (statuses as of 02/27/2023) [facility] History of Past illness Narrative* Problem Noted Date Resolved Date Heart failure 08/31/2018 09/27/2020 Iron deficiency anemia 08/31/2018 Dizziness and giddiness 08/31/2018 11/15/19 19 Sebaceous cyst 09/19/2016 06/30/2017 documented as of this encounter (statuses as of 03/05/2023) [facility] History of Past illness Narrative* Problem Noted Date Diagnosed Date Resolved Date Heart failure 08/31/2018 09/27/2020 Iron deficiency anemia 08/31/201803/05 Dizziness and giddiness 08/31/201810/28 Sebaceous cyst 09/19/2016 06/30/2017 documented as of this encounter (statuses as of 03/09/2023) [facility] History of Past illness Narrative* Problem Noted Date Diagnosed Date Resolved Date Heart failure 08/31/2018 09/27/2020 Iron deficiency anemia 08/31/201803/05 Dizziness and giddiness 08/31/201810/28 Sebaceous cyst 09/19/2016 06/30/2017 documented as of this encounter (statuses as of 03/12/2023) [facility] History of Past illness Narrative* Problem Noted Date Diagnosed Date Resolved Date Heart failure 08/31/2018 09/27/2020 Iron deficiency anemia 08/31/201803/05 Dizziness and giddiness 08/31/201810/28 Sebaceous cyst 09/19/2016 06/30/2017 documented as of this encounter (statuses as of 03/25/2023) [facility] History of Past illness Narrative* Problem Noted Date Diagnosed Date Resolved Date Heart failure 08/31/2018 09/27/2020 Iron deficiency anemia 08/31/201803/05 Dizziness and giddiness 08/31/201810/28 Sebaceous cyst 09/19/2016 06/30/2017 documented as of this encounter (statuses as of 04/15/2023) [facility] History of Past illness Narrative* Problem Noted Date Diagnosed Date Resolved Date Heart failure 08/31/2018 09/27/2020 Iron deficiency anemia 08/31/201803/05 Dizziness and giddiness 08/31/201810/28 Sebaceous cyst 09/19/2016 06/30/2017 documented as of this encounter (statuses as of 04/20/2023) [facility] History of Past illness Narrative* Problem Noted Date Diagnosed Date Resolved Date Heart failure 08/31/2018 09/27/2020 Iron deficiency anemia 08/31/201803/05 Dizziness and giddiness 08/31/201810/28 Sebaceous cyst 09/19/2016 06/30/2017 documented as of this encounter (statuses as of 05/19/2023) [facility] History of Past illness Narrative* Problem Noted Date Diagnosed Date Resolved Date Heart failure 08/31/2018 09/27/2020 Iron deficiency anemia 08/31/201803/05 Dizziness and giddiness 08/31/201810/28 Sebaceous cyst 09/19/2016 06/30/2017 documented as of this encounter (statuses as of 05/21/2023) [facility] History of Past illness Narrative* Problem Noted Date Diagnosed Date Resolved Date Heart failure 08/31/2018 09/27/2020 Iron deficiency anemia 08/31/201803/05 Dizziness and giddiness 08/31/201810/28 Sebaceous cyst 09/19/2016 06/30/2017 documented as of this encounter (statuses as of 06/10/2023) [facility] History of Past illness Narrative* Problem Noted Date Diagnosed Date Resolved Date Heart failure 08/31/2018 09/27/2020 Iron deficiency anemia 08/31/201803/05 Dizziness and giddiness 08/31/201810/28 Sebaceous cyst 09/19/2016 06/30/2017 documented as of this encounter (statuses as of 07/04/2023) [facility] History of Past illness Narrative* Problem Noted Date Diagnosed Date Resolved Date Heart failure 08/31/2018 09/27/2020 Iron deficiency anemia 08/31/201803/05 Dizziness and giddiness 08/31/201810/28 Sebaceous cyst 09/19/2016 06/30/2017 documented as of this encounter (statuses as of 07/04/2023) [facility] History of Past illness Narrative* Problem Noted Date Diagnosed Date Resolved Date Heart failure 08/31/2018 09/27/2020 Iron deficiency anemia 08/31/201803/05 Dizziness and giddiness 08/31/201810/28 Sebaceous cyst 09/19/2016 06/30/2017 documented as of this encounter (statuses as of 07/04/2023) [facility] History of Past illness Narrative* Problem Noted Date Diagnosed Date Resolved Date Heart failure 08/31/2018 09/27/2020 Iron deficiency anemia 08/31/201803/05 Dizziness and giddiness 08/31/201810/28 Sebaceous cyst 09/19/2016 06/30/2017 documented as of this encounter (statuses as of 12/02/2023) [facility] note* Diagnosis 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, without mention of intractable epilepsy History of stroke Transient ischemic attack (TIA), and cerebral infarction without residual deficits LBBB (left bundle branch block) Other left bundle branch block Primary hypertension Unspecified essential hypertension documented in this encounter [facility] note* Diagnosis Acute on chronic respiratory failure with hypoxemia (HCC)- Primary Chronic systolic (congestive) heart failure (HCC) PVD (peripheral vascular disease) (HCC) Peripheral vascular disease, unspecified Impaired fasting glucose Hyperlipidemia, unspecified hyperlipidemia type Acquired hypothyroidism Unspecified hypothyroidism Current moderate episode of major depressive disorder, unspecified whether recurrent (HCC) documented in this encounter [facility] note* Diagnosis Anemia, unspecified type- Primary documented in this encounter [facility] note* Diagnosis Urinary tract infection symptoms- Primary Other symptoms involving urinary system documented in this encounter [facility] note* Diagnosis Renal mass- Primary Unspecified disorder of kidney and ureter Dysuria documented in this encounter [facility] note* Diagnosis Chronic systolic (congestive) heart failure (HCC) documented in this encounter [facility] note* Diagnosis Encounter for screening mammogram for breast cancer documented in this encounter [facility] note* Diagnosis Cardiomyopathy, nonischemic (HCC)- Primary Other primary cardiomyopathies Chronic combined systolic and diastolic heart failure (HCC) Chronic combined systolic and diastolic heart failure documented in this encounter [facility] note* Diagnosis Chronic systolic (congestive) heart failure (HCC) documented in this encounter [facility] note* Diagnosis 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 Unspecified late effects of cerebrovascular disease documented in this encounter [facility] note* Diagnosis 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 Unspecified late effects of cerebrovascular disease Chronic systolic (congestive) heart failure (HCC) Heart failure, unspecified HF chronicity, unspecified heart failure type (HCC) Acute on chronic respiratory failure with hypoxemia (HCC) Bronchospasm Acute bronchospasm documented in this encounter [facility] note* Diagnosis 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, without mention of intractable epilepsy documented in this encounter [facility] note* Diagnosis 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, without mention of intractable epilepsy History of stroke Transient ischemic attack (TIA), and cerebral infarction without residual deficits Primary hypertension Unspecified essential hypertension Pure hypercholesterolemia documented in this encounter [facility] note* Diagnosis 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)- Primary Hyperlipidemia, unspecified hyperlipidemia type Essential hypertension Unspecified essential hypertension Acquired hypothyroidism Unspecified hypothyroidism Impaired fasting glucose documented in this encounter [facility] note* Diagnosis Medicare annual wellness visit, subsequent- Primary Routine general medical examination at a health care facility Dermatophytosis of nail Pain in toes of both feet 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 Unspecified late effects of cerebrovascular disease Chronic systolic (congestive) heart failure ([facility]) Ischemic cardiomyopathy Other specified forms of chronic ischemic heart disease Essential hypertension Unspecified essential hypertension Kidney insufficiency Unspecified disorder of kidney and ureter Sacral decubitus ulcer, stage II (HCC) Pressure ulcer, lower back Impaired fasting glucose documented in this encounter [facility] note* Diagnosis Callus of foot- Primary Corns and callosities Dermatophytosis of nail Pain in toes of both feet PVD (peripheral vascular disease) ([facility]) Peripheral vascular disease, unspecified documented in this encounter [facility] note* Diagnosis Onset Date Resolution Status Debility acute History of stroke acute Sacral decubitus ulcer, stage III acute [facility] Work Phone: Evaluation note* Diagnosis Peripheral arterial disease (HCC)- Primary Peripheral vascular disease, unspecified documented in this encounter [facility] note* Diagnosis Onset Date Resolution Status Debility acute History of stroke acute Sacral decubitus ulcer, stage III acute Debility acute History of stroke acute Sacral decubitus ulcer, stage III acute [facility] Work Phone: Evaluation note* Diagnosis Oxygen dependent- Primary Dependence on supplemental oxygen [facility]* Diagnosis Onset Date Resolution Status Debility acute History of stroke acute Sacral decubitus ulcer, stage III acute Debility acute History of stroke acute Sacral decubitus ulcer, stage III acute Debility acute History of stroke acute Sacral decubitus ulcer, stage III acute [facility] Work Phone: Evaluation note* Diagnosis Chronic bronchitis, unspecified chronic bronchitis type (HCC)- Primary Current moderate episode of major depressive disorder, unspecified whether recurrent (HCC) Acute on chronic respiratory failure with hypoxemia (HCC) Bilateral impacted cerumen Impacted cerumen documented in this encounter [facility] note* Diagnosis Onset Date Resolution Status Debility acute History of stroke acute Sacral decubitus ulcer, stage III acute Debility acute History of stroke acute Sacral decubitus ulcer, stage III acute Debility acute History of stroke acute Sacral decubitus ulcer, stage III acute Debility acute History of stroke acute Sacral decubitus ulcer, stage III acute [facility] Work Phone: Evaluation note* Diagnosis Chronic systolic (congestive) heart failure (HCC) documented in this encounter [facility] note* Diagnosis Renal mass Unspecified disorder of kidney and ureter documented in this encounter [facility] note* Diagnosis Encounter for screening mammogram for breast cancer documented in this encounter [facility] note* Diagnosis Renal mass- Primary Unspecified disorder of kidney and ureter documented in this encounter [facility] note* Diagnosis Pain in both lower extremities- Primary Acute on chronic respiratory failure with hypoxemia (HCC) Hyperlipidemia, unspecified hyperlipidemia type 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) Chronic systolic (congestive) heart failure (HCC) Acquired hypothyroidism Unspecified hypothyroidism Chronic bronchitis, unspecified chronic bronchitis type (HCC) Arteriosclerosis of coronary artery Coronary atherosclerosis of unspecified type of vessel, [place] or graft documented in this encounter [facility] note* Diagnosis Pain in both lower extremities documented in this encounter [facility] note* Diagnosis Medicare annual wellness visit, [...] for breast cancer documented in this encounter [facility] note* Diagnosis Kidney insufficiency- Primary Unspecified disorder of kidney and ureter Anemia, unspecified type Seizure (HCC) Other convulsions [facility] Diagnosis Hyperlipidemia, unspecified hyperlipidemia type [facility]* Diagnosis Renal mass Unspecified disorder of kidney and ureter [facility]* Diagnosis Pain in both lower extremities [facility] Diagnosis 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 Unspecified late effects of cerebrovascular disease Chronic systolic (congestive) heart failure (HCC) [facility] Diagnosis Pain in both lower extremities [facility] Diagnosis Urinary incontinence, unspecified type- Primary [facility] Diagnosis Aphasia, late effect of cerebrovascular disease- Primary Urge incontinence of urine Urge incontinence 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 Unspecified late effects of cerebrovascular disease Ambulatory dysfunction Difficulty in walking Impairment of balance Abnormality of gait Memory impairment Memory loss [facility] Diagnosis Decubitus ulcer of sacral region, stage 3 (HCC)- Primary Pressure ulcer, lower back Heel ulceration, left, with unspecified severity (HCC) Acute kidney injury (HCC) Acute kidney failure, unspecified 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 Unspecified late effects of cerebrovascular disease Debility Debility, unspecified 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) Decubitus ulcer of left buttock, stage 2 (HCC) Pressure ulcer, buttock [facility] Diagnosis Chronic bronchitis, unspecified chronic bronchitis type (HCC) [facility] Diagnosis Decubitus ulcer of sacral region, stage 3 (HCC)- Primary Pressure ulcer, lower back Skin ulcer of left heel with fat layer exposed (HCC) [facility] Diagnosis Chronic systolic (congestive) heart failure (HCC) [facility] Diagnosis Acute cough- Primary Shortness of breath Acute cough Shortness of breath [facility]* Diagnosis Acute cough Shortness of breath [facility] Diagnosis Anxiety associated with depression- Primary Dysthymic disorder [facility]* Diagnosis Pain in both lower extremities documented in this encounter [facility] note* Diagnosis Arteriosclerosis of coronary artery Coronary atherosclerosis of unspecified type of vessel, [place] or graft Acquired hypothyroidism Unspecified hypothyroidism Seizure (HCC) Other convulsions documented in this encounter [facility] note* Diagnosis Decubitus ulcer of sacral region, stage 3 (HCC)- Primary Pressure ulcer, lower back Arteriosclerosis of coronary artery Coronary atherosclerosis of unspecified type of vessel, [place] or graft Acquired hypothyroidism Unspecified hypothyroidism Erythema intertrigo Other specified erythematous condition 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 Unspecified late effects of cerebrovascular disease Essential hypertension Unspecified essential hypertension Chronic systolic (congestive) heart failure (HCC) Seizure (HCC) Other convulsions documented in this encounter [facility] for referral (narrative)* Diagnostic Procedure Only (Routine) - Pending Review Specialty Diagnoses / Procedures Referred By Iwona smith Referred To Contact US IMAGING Diagnoses Renal mass Procedures US KIDNEY/BLADDER US RETROPERITONEAL REAL TIME W/IMAGE COMPLETE Zachariah Gonzales Jr., MD [facility] [place] [address] Us Imaging Referral ID Status Reason Start Date Expiration Date Visits Requested Visits Authorized [id number] Pending Review Auto-Generat ed Referral 03/31/2022 04/30/2023 1 1 [facility] for referral (narrative)* Diagnostic Procedure Only (Routine) - Pending Review Specialty Diagnoses / Procedures Referred By Contewa t Referred To Contact BR IMAGING Diagnoses Encounter for screening mammogram for breast cancer Procedures RUSSELL SCREENING SCREENING MAMMOGRAPHY BI 2-VIEW BREAST INC CAD Lenin Bhatt MD [address] [place] [address] Br Imaging [address] [facility] [place] [address] Referral ID Status Reason Start Date Expiration Date Visits Requested Visits Authorized [id number] Pending Review Auto-Generat ed Referral 05/20/2022 06/19/2023 1 1 [facility] for referral (narrative)* Outpatient Procedure (Routine) - Closed Specialty Diagnoses / Procedures Referred By Contac t Referred To Contact [facility] [place] Diagnoses Cardiomyopathy, nonischemic (HCC) Procedures ECG COMPLETE ECG ROUTINE ECG W/LEAST 12 LDS W/I&R Jonathan Aguila MD [address] [place] [address] [facility] [address] [address] Referral ID Status Reason Start Date Expiration Date V isits Requested Visits Authorized [id number] Closed Auto-Generate d Referral 06/10/2022 06/10/2023 1 1 [facility] for referral (narrative)* Outpatient Procedure (Routine) - Authorized Specialty Diagnoses / Procedures Referred By Contac t Referred To Contact [facility] [place] Diagnoses Dermatophytosis of nail PVD (peripheral vascular disease) (HCC) Procedures PVR ANK PRESS VINAY VAS LAB NON-INVAS PHYSIOLOGIC STD EXTREMITY ART 2 LEVEL Pavan Mcclure [address] [place] [address] [address] Referral ID Status Reason Start Date Expiration Date Visits Requested Visits Authorized [id number] Authorized Auto-Generat ed Referral 03/12/2023 03/11/2024 1 1 [facility] for referral (narrative)* Diagnostic Procedure Only (Routine) - Closed Specialty Diagnoses / Procedures [facility] Referred To Contact US IMAGING Diagnoses Renal mass Procedures US KIDNEY/BLADDER US RETROPERITONEAL REAL TIME W/IMAGE COMPLETE Zachariah Gonzales Jr., MD [address] [place] [address] [place] [address] Referral ID Status Reason Start Date Expiration Date V isits Requested Visits Authorized [id number] Closed Auto-Generate d Referral 03/31/2022 04/30/2023 1 1 [facility] for referral (narrative)* Diagnostic Procedure Only (Routine) - Closed Specialty Diagnoses / Procedures Referred By Iwona smith Referred To Contact BR IMAGING Diagnoses Encounter for screening mammogram for breast cancer Procedures RUSSELL SCREENING SCREENING MAMMOGRAPHY BI 2-VIEW BREAST INC Lenin Yun MD [address] [place] [address] Br Imaging [address] [place] [address] Referral ID Status Reason Start Date Expiration Date V isits Requested Visits Authorized [id number] Closed Auto-Generate d Referral 05/20/2022 06/19/2023 1 1 [facility] for referral (narrative)* Diagnostic Procedure Only (Routine) - Pending Review Specialty Diagnoses / Procedures Referred By Iwona smith Referred To Contact US IMAGING Diagnoses Renal mass Procedures US KIDNEY/BLADDER US RETROPERITONEAL REAL TIME W/IMAGE COMPLETE Zachariah Gonzales Jr., MD [address] [place] [address] Us Imaging [facility] Referral ID Status Reason Start Date Expiration Date Visits Requested Visits Authorized [id number] Pending Review Auto-Generat ed Referral 12/02/2023 12/28/2024 1 1 [facility] for referral (narrative)No reason for referral [facility]: Reason for visit Narrative* Diagnostic Procedure Only (Routine) - Closed Specialty Diagnoses / Procedures Referred By Iwona smith Referred To Contact BR IMAGING Diagnoses Encounter for screening mammogram for breast cancer Procedures RUSSELL SCREENING SCREENING MAMMOGRAPHY BI 2-VIEW BREAST INC Lenin Yun MD [address] [place] [address] Br Imaging [address] [place] [address] Referral ID Status Reason Start Date Expiration Date V isits Requested Visits Authorized [id number] Closed Auto-Generate d Referral 05/20/2022 06/19/2023 1 1 [facility] Assessments Diagnosis Localization-related epileps y (HCC) [...] (HCC) Unspecified peripheral vascular disease Advance Directives No Advanced Directives Records FoundDocuments on File Type Date Recorded 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 Expl 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 Advance Directives and Livin g Will 10/05/2019 2:13 PM Power of Sanitarian Inspector Latest Code Status on File Code Status Date Activated Date Inactivated Comments Full Code - Unverified 12/10/2015 3:49 PM 12/12/2015 8:1 3 PM Full Code - Unverified 12/10/2015 2:21 PM 12/10/2015 3:4 9 PM Full Code 12/02/2015 6:03 PM 12/05/2015 11:06 PM Documents on File Type Date Recorded 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 Expl 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 Power of Sanitarian Inspector Advance Directives and Livin g Will 10/05/2019 2:13 PM Documents on File Type Date Recorded 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 Expl 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 Advance Directive(s) 12/20/2018 8:41 AM Documents on File Type Date Recorded 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 Expl anation Advance Directive(s) 12/20/2018 8:41 AM Documents on File Type Date Recorded 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 Expl anation Power of Sanitarian Inspector Latest Code Status on File Code Status Date Activated Date Inactivated Comments Full Code - Unverified 12/10/2015 3:49 PM 12/12/2015 8:1 3 PM Code Status History Code Status Date Activated Date Inactivated Comments Full Code - Unverified 12/10/2015 2:21 PM 12/10/2015 3:4 9 PM Full Code 12/02/2015 6:03 PM 12/05/2015 11:06 PM Advance Directive Response Recorded Date/ Time Living Will No March 11, 2021 12:49pm Power of Sanitarian Inspector No March 11 12:49pm Advance Directive Response Recorded Date/ Time Living Will No March 11, 2021 11:49am Power of Sanitarian Inspector No March 11 11:49am History of Present Illness * Aramis Cheng MD - 08/11/2018 1:44 PM EST Formatting of this note may be different from the original. NEUROLOGY Outpatient Follow-Up [facility] Epilepsy [address], [address] [place] [address] (office) / [phone] (fax) Patient Name: Dalia Lopez : 1950 MR #: [id number] Date of Neurology Follow-up: 08/11/18 Name of Neurologist: Aramis Cheng MD, ABPN Other Physicians: Lenin Bhatt MD (Primary Care Physician) Chief Complaint: Follow-up for Seizures ([facility] 08/26/17, Pt. reports no seizures) Interval History: [...] PERIPHERAL VASCULAR DISEASE CHF (congestive heart failure) ([facility]) CONGESTIVE HEART FAILURE Home Medications: Current Outpatient [...] your patients. Sincerely, Aramis Cheng MD, ABPN, JEAN Adult Neurologist & Epileptologist [facility] Neurological Physicians [facility] Epilepsy [place] A Level 4, [facility]EC-Certified Epilepsy Center in this encounter* Aramis Cheng MD - 10/05/2019 2:51 PM EST NEUROLOGY Outpatient Follow-Up [facility] Epilepsy [address], [address] [place] [address] (office) / [phone] (fax) Patient Name: Dalia Lopez : 1950 MR #: [id number] Date of Neurology Follow-up: 10/05/19 Name of [...] Hypertension Hyperlipidemia Asymptomatic PVD (peripheral vascular disease) (HCC) CHF (congestive heart failure) ([facility]) Home Medications: Current Outpatient Medications [...] hypercholesterolemia 4. Asymptomatic PVD (peripheral vascular disease) ([facility]) --Continue Keppra 500 mg bid for seizure prevention --Pt prefers to remain on medication over concern for recurrent seizures --Continue ASA/Plavix for secondary stroke prevention --Continue close follow with Cardiology --EEG results reviewed today, unrevealing --Return to clinic in 1 year Aramis Cheng MD, ABPN, FAES Adult Neurologist & Epileptologist [facility] Neurological Physicians [facility] Epilepsy Center A Level 4, [facility]EC-Certified Epilepsy Center documented in this encounter Summary Purpose Family History No Family History Records Found Relationship Condition Age at Onset Recorded Date/T doug Unknown Family History?- Unknown August 172017 7:57pm Family History?No pe rtinent history Unknown August 17, 2018 7:57pm Family History?No pe rtinent history Unknown August 18, 2020 7:08pm Relationship Condition Age at Onset Recorded Date/T doug Unknown Family History?- Unknown August 172017 6:57pm Family History?No pe rtinent history Unknown August 17, 2018 6:57pm Family History?No pe rtinent history Unknown August 18, 2020 6:08pm Relationship Condition Age at Onset Recorded Date/T doug Not Specified Kidney disorder Unknown Malignant neoplasm Unknown Reason for Referral Specialty Diagnoses / Procedures Referred By Contac t Referred To Contact Podiatry Diagnoses Dermatophytosis of nail Pain in toes of both feet Procedures CONSULT TO PODIATRY OFFICE/OUTPATIENT [facility] 60-74 MINUTES Lenin Bhatt MD [address] [place] [address] Referral ID Status Reason Start Date Expiration Date Visits Requested Visits Authorized [id number] Authorized PCP Requested Referral 03/04/2023 03/03/2024 1 1 Specialty Diagnoses / Procedures Referred By Contac t Referred To Contact Gerontology Diagnoses Aphasia, 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 (cerebrovascular accident) Abnormal mini-mental status exam Procedures CONSULT TO GERIATRICS OFFICE/OUTPATIENT [facility] 60 MINUTES Moira Hearn, AMBULATORY ANALYST.ONE PIECE EXPANSION MAKER HAND [address] [place] [address] Referral ID Status Reason Start Date Expiration Date Visits Requested Visits Authorized [id number] Authorized PCP Requested Referral 03/14/2024 03/14/2025 1 1 Specialty Diagnoses / Procedures Referred By Contac t Referred To Contact Ophthalmology Diagnoses Encounter for routine eye and vision examination Procedures CONSULT TO OPHTHALMOLOGY OFFICE/OUTPATIENT NEW HIGH MDM 60 MINUTES Moira Hearn, AMBULATORY ANALYST.ONE PIECE EXPANSION MAKER HAND [address] [place] [address] Referral ID Status Reason Start Date Expiration Date Visits Requested Visits Authorized [id number] Authorized PCP Requested Referral 03/14/2024 03/14/2025 1 1 Specialty Diagnoses / Procedures Referred By Contac t Referred To Contact BR IMAGING Diagnoses Encounter for screening mammogram for breast cancer Procedures RUSSELL SCREENING W Y[place]I SCREENING DIGITAL BREAST TOMOSYNTHESIS BI SCREENING MAMMOGRAPHY BI 2-VIEW BREAST INC CAD Moira Hearn, AMBULATORY ANALYST.ONE PIECE EXPANSION MAKER HAND [address] [place] [address] Br Imaging [address] [place] [address] Referral ID Status Reason Start Date Expiration Date Visits Requested Visits Authorized [id number] New Request Auto-Generat ed Referral 03/14/2024 04/13/2025 1 1 Specialty Diagnoses / Procedures Referred By Contac t Referred To Contact [facility] Diagnoses Late effects of CVA (cerebrovascular accident) Ambulatory dysfunction Impairment of balance Procedures CONSULT TO PHYSICAL THERAPY PHYSICAL THERAPY EVALUATION HIGH COMPLEX 45 MINS Deepti Auguste MD [address] [place] [address] [facility] [place] [address] [place] [address] Referral ID Status Reason Start Date Expiration Date Visits Requested Visits Authorized [id number] Pending Review Auto-Generat ed Referral 05/24/2024 05/24/2025 1 1 Chief Complaint and Reason for Visit Chief Complaint wound wound Reason for Visit Debility History of stroke Sacral decubitus ulcer, stage III Chief Complaint wound wound wound wound wound Reason for Visit Debility History of stroke Sacral decubitus ulcer, stage III Debility History of stroke Sacral decubitus ulcer, stage III Chief Complaint wound wound wound wound wound wound wound wound wound Reason for Visit Debility History of stroke Sacral decubitus ulcer, stage III Debility History of stroke Sacral decubitus ulcer, stage III Debility History of stroke Sacral decubitus ulcer, stage III Chief Complaint wound wound wound wound wound wound wound wound wound wound wound Reason for Visit Debility History of stroke Sacral decubitus ulcer, stage III Debility History of stroke Sacral decubitus ulcer, stage III Debility History of stroke Sacral decubitus ulcer, stage III Debility History of stroke Sacral decubitus ulcer, stage III Chief Complaint Admit Date wound August 02, 2024 5 :10pm wound August 16, 2024 2:00pm wound August 16, 2024 3:53pm wound September 06, 2024 2: 28pm wound September 27, 2024 2 :00pm wound September 27, 2024 5 :03pm wound October 26, 2024 11:30am wound October 26, 2024 12:56pm wound November 09, 2024 10: 46am wound November 09, 2024 12: 06pm Reason for Visit Admit Date Debility August 16, 2024 2:00pm Decubitus ulcer of left ischium, stage 3 August 16, 2024 2:00pm Decubitus ulcer of sacral area August 16, 2024 2:00pm Debility September 27, 2024 2 :00pm Decubitus ulcer of left ischium, stage 3 September 27, 2024 2:00pm Decubitus ulcer of sacral area August 312024 2:00pm Debility October 26, 2024 11:30am History of stroke October 26, 2024 11:30am Sacral decubitus ulcer, stage III Februa 2024 11:30am Debility November 09, 2024 10: 46am Decubitus ulcer of sacral area October 10:46am History of stroke November 09, 2024 10: 46am Sacral decubitus ulcer, stage IV October 282024 10:46am Chief Complaint Admit Date wound October 26, 2024 11:30am wound October 26, 2024 12:56pm wound November 09, 2024 10: 46am wound November 09, 2024 12: 06pm wound December 28, 2024 12:32p m wound January 18, 2025 12:36 pm wound January 25, 2025 10:00 am wound January 25, 2025 10:59 am Reason for Visit Admit Date Debility October 26, 2024 11:30am History of stroke October 26, 2024 11:30am Sacral decubitus ulcer, stage III Februa 2024 11:30am Debility November 09, 2024 10: 46am Decubitus ulcer of sacral area October 10:46am History of stroke November 09, 2024 10: 46am Sacral decubitus ulcer, stage IV October 282024 10:46am Debility January 25, 2025 10:00 am Decubitus ulcer of sacral area January 25, 2025 10:00am History of stroke January 25, 2025 10:00 am Sacral decubitus ulcer, stage IV December 10:00am Chief Complaint Admit Date wound November 09, 2024 10: 46am wound November 09, 2024 12: 06pm wound December 28, 2024 12:32p m wound January 18, 2025 12:36 pm wound January 25, 2025 10:00 am wound January 25, 2025 10:59 am wound February 01, 2025 12:31 pm wound February 15, 2025 1:39 pm wound February 19, 2025 2:15 pm wound February 20, 2025 8:53 am Reason for Visit Admit Date Debility November 09, 2024 10: 46am Decubitus ulcer of sacral area October 10:46am History of stroke November 09, 2024 10: 46am Sacral decubitus ulcer, stage IV October 282024 10:46am Debility January 25, 2025 10:00 am Decubitus ulcer of sacral area January 25, 2025 10:00am History of stroke January 25, 2025 10:00 am Sacral decubitus ulcer, stage IV December 10:00am Debility February 19, 2025 2:15 pm Decubitus ulcer of sacral area January 2:15pm History of stroke February 19, 2025 2:15 pm Sacral decubitus ulcer, stage IV February 192024 2:15pm Additional Source Comments Reason for Visit (unrecogniz [...] HIGH MDM 60-74 MINUTES Lenin Bhatt MD [address] [place] [address] Referral ID Status Reason Start Date Expiration Date V isits Requested Visits Authorized [id number] Closed PCP Requested Referral 03/04/2023 03/03/2024 1 1 Reason Comments New Patient PMH: PAD She is on p lavix. Reason Comments Orders Reason Comments Follow Up Earache Reason Comments Radiology US Specialty Diagnoses / Procedures Referred By Iwona smith Referred To Contact US IMAGING Diagnoses Renal mass Procedures US KIDNEY/BLADDER US RETROPERITONEAL REAL TIME W/IMAGE COMPLETE Zachariah Gonzales Jr., MD [address] [place] [address] [place] [address] Referral ID Status Reason Start Date Expiration Date V isits Requested Visits Authorized [id number] Closed Auto-Generate d Referral 03/31/2022 04/30/2023 1 [...] TIME W/IMAGE COMPLETE Zachariah Gonzales Jr., MD [address] [place] [address] [place] [address] Referral ID Status Reason Start Date Expiration Date V isits Requested Visits Authorized [id number] Closed Auto-Generate d Referral 12/02/2023 12/28/2024 1 1 Reason Onset Date Comments Refill Request 04/18/2024 Reason Comments Opened In Error Reason Onset Date Comments Refill Request 05/30/2024 Reason Onset Date Comments Refill Request 06/06/2024 Reason Comments Patient Update Reason Comments consult to geriatrics Reason Comments Physical Therapy Reason Comments [facility] HH- agree to follow for orders Reason Comments Home Health update Reason Comments Hospital F/U Concerned with kidne y function and water pills. Swelling to left foot. Unable to get Yar[employer] supplement may need to try order at [employer] for coverage. Has wounds to treat. Reason Comments Physical Therapy Plan of Care Reason Comments Consult [facility] Reason Onset Date Comments Refill Request 07/15/2024 Reason Onset Date Comments Refill Request 07/30/2024 Reason Comments Home Health Nurse Update Reason Comments Cough Congestion X 1 week Reason Comments Patient Update Patient Question Reason Onset Date Comments Refill Request 09/28/2024 Reason Comments Concerns of Neglect Reason Onset Date Comments Refill Request 10/22/2024 Reason Onset Date Comments Refill Request 11/20/2024 Reason Comments F/U 3 Month INFORMATION SOURCE (unrecogn ized section and content) DATE CREATED AUTHOR 12/20/2018 [facility] DATE CREATED AUTHOR AUTHOR'S ORGANIZ ATION 10/30/2019 [facility] ([place]) DATE CREATED AUTHOR AUTHOR'S ORGANIZ ATION 09/29/2022 [facility] DATE CREATED AUTHOR AUTHOR'S ORGANIZ ATION 11/21/2024 [facility] DATE CREATED AUTHOR AUTHOR'S ORGANIZ ATION 11/25/2024 [facility] DATE CREATED AUTHOR AUTHOR'S ORGANIZ ATION 03/03/2025 [facility] Care Teams (unrecognized sec tion and content) Team Status: Active Member Role Status Dates Dr. Lenin Bhatt MD Primary Care Provider Active Team Status: Inactive Member Role Status Dates Dr. Lenni Bhatt MD Primary Care Provider Active Start: October 26, 2024 End: October 27, 2024 Dr. Lenin Bhatt MD Referring Provider Active Start: October 26, 2024 End: October 27, 2024 Dr. Catarino Dominguez MD Attending Provider Active Start: October 26, 2024 End: October 27, 2024 Team Status: Active Member Role Status Dates Dr. Lenin Bhatt MD Primary Care Provider Active Start: October 26, 2024 Dr. Lenin Bhatt MD Referring Provider Active Start: October 26, 2024 Dr. Catarino Dominguez MD Attending Provider Active Start: October 26, 2024 Dr. Catarino Dominguez MD Other Provider Active Start: October 26, 2024 Team Status: Inactive Member Role Status Dates Dr. Lenin Bhatt MD Primary Care Provider Active Start: November 09, 2024 End: November 27, 2024 Dr. Lenin Bhatt MD Referring Provider Active Start: November 09, 2024 End: November 27, 2024 Dr. Catarino Dominguez MD Attending Provider Active Start: November 09, 2024 End: November 27, 2024 Team Status: Active Member Role Status Dates Dr. Lenin Bhatt MD Primary Care Provider Active Start: November 09, 2024 Dr. Lenin Bhatt MD Referring Provider Active Start: November 09, 2024 Dr. Catarino Dominguez MD Attending Provider Active Start: November 09, 2024 Dr. Catarino Dominguez MD Other Provider Active Start: November 09, 2024 Team Status: Active Member Role Status Dates Dr. Lenin Bhatt MD Primary Care Provider Active Start: December 28, 2024 Dr. Lenin Bhatt MD Referring Provider Active Start: December 28, 2024 Dr. Catarino Dominguez MD Attending Provider Active Start: December 28, 2024 Dr. Catarino Dominguez MD Other Provider Active Start: December 28, 2024 Team Status: Active Member Role Status Dates Dr. Lenin Bhatt MD Primary Care Provider Active Start: January 18, 2025 Dr. Lenin Bhatt MD Referring Provider Active Start: January 18, 2025 Dr. Catarino Dominguez MD Attending Provider Active Start: January 18, 2025 Dr. Catarino Dominguez MD Other Provider Active Start: January 18, 2025 Team Status: Inactive Member Role Status Dates Dr. Lenin Bhatt MD Primary Care Provider Active Start: January 25, 2025 End: January 27, 2025 Dr. Lenin Bhatt MD Referring Provider Active Start: January 25, 2025 End: January 27, 2025 Dr. Catarino Dominguez MD Attending Provider Active Start: January 25, 2025 End: January 27, 2025 Team Status: Active Member Role Status Dates Dr. Lenin Bhatt MD Primary Care Provider Active Start: January 25, 2025 Dr. Lenin Bhatt MD Referring Provider Active Start: January 25, 2025 Dr. Catarino Dominguez MD Attending Provider Active Start: January 25, 2025 Dr. Catarino Dominguez MD Other Provider Active Start: January 25, 2025 County Agent Relationship Specialty Start Date End Date Lenin Bhatt MD [address] [place], [place] [id number] PCP - General Internal Medicine 02/03/17 Arlette Lorenzo MD [address] [place] [address] [address] [place], [place] [id number] Referring Physician Obstetrics/Gynecology 02/26/15 Aramis Cheng MD [address] [place] [address] [address] [place] [address] Consulting Physician Neurology 09/25/15 Felecia Shultz MD [address] [facility] [address] [place] [address] Consulting Physician Urogynecology 09/25/15 County Agent Relationship Specialty Start Date End Date Lenin Bhatt MD [address] [facility] [place] [address] PCP - General 10/18/02 County Agent Relationship Specialty Start Date End Date Lenin Bhatt MD [address] [facility] [place] [address] PCP - General 10/18/02 County Agent Relationship Specialty Start Date End Date Lenin Bhatt MD [address] [place] [address] PCP - General 10/18/02 County Agent Relationship Specialty Start Date End Date Lenin Bhatt MD [address] [facility] [place] [address] PCP - General 10/18/02 County Agent Relationship Specialty Start Date End Date Lenin Bhatt MD [address] [place] [address] PCP - General 10/18/02 County Agent Relationship Specialty Start Date End Date Lenin hBatt MD [address] [place] [address] PCP - General 10/18/02 County Agent Relationship Specialty Start Date End Date Lenin Bhatt MD [address] [facility] [place] [address] PCP - General 10/18/02 County Agent Relationship Specialty Start Date End Date Lenin Bhatt MD [address] [facility] [place] [address] PCP - General 10/18/02 County Agent Relationship Specialty Start Date End Date Lenin Bhatt MD [address] [facility] [place] [address] PCP - General 10/18/02 County Agent Relationship Specialty Start Date End Date Lenin Bhatt MD [address] [facility] [place] [address] PCP - General 10/18/02 County Agent Relationship Specialty [place] [address] [place] [address], [place] [address] PCP - General 10/18/02 County Agent Relationship Specialty Start Date End Date Lenin Bhatt MD [address] [place] [address], [place] [address] PCP - General 10/18/02 County Agent Relationship Specialty Start Date End Date Lenin Bhatt MD [facility] [facility] [place] [address] PCP - General 10/18/02 County Agent Relationship Specialty Start Date End Date Lenin Bhatt MD [address] [place] [address], [place] [address] PCP - General 10/18/02 County Agent Relationship Specialty Start Date End Date Lenin Bhatt MD [address] [place] [address], [place] [address] PCP - General Internal Medicine 02/03/17 Arlette Lorenzo MD [address] [place] [address] Dr Burrell [address] [place] [address] Referring Physician Obstetrics/Gynecology 02/26/15 Aramis Cheng MD [address] [facility] [address] [place] [address] Consulting Physician Neurology 09/25/15 Felecia Shultz MD [address] [address] Consulting Physician Urogynecology 09/25/15 County Agent Relationship Specialty Start Date End Date Lenin Bhatt MD [address] [place] [address] PCP - General Internal Medicine 02/03/17 Arlette Lorenzo MD [address] [place] [address] Referring Physician Obstetrics/Gynecology 02/26/15 Aramis Cheng MD 3555 [facility] [address] [place] [address] Consulting Physician Neurology 09/25/15 Felecia Shultz MD [address] [address] Consulting Physician Urogynecology 09/25/15 County Agent Relationship Specialty Start Date End Date Lenin Bhatt MD [address] [place] [address] PCP - General 10/18/02 County Agent Relationship Specialty Start Date End Date Lenin Bhatt MD [address] [place] [address] PCP - General 10/18/02 County Agent Relationship Specialty Start Date End Date Lenin Bhatt MD [address] [place] [address] PCP - General 10/18/02 County Agent Relationship Specialty Start Date End Date Lenin Bhatt MD [address] [place], [place] [address]151 PCP - General 10/18/02 County Agent Relationship Specialty Start Date End Date Lenin Bhatt MD [address] [place], [place] [address] PCP - General 10/18/02 County Agent Relationship Specialty Start Date End Date Lenin Bhatt MD [address] [place], [place] [address]641 PCP - General 10/18/02 Team Status: Active Member Role Status Dates Dr. Lenin Bhatt MD Family Provider Active Dr. Lenin Bhatt MD Primary Care Provider Active Team Status: Active Member Role Status Dates Dr. Lenin Bhatt MD Primary Care Provider, Refer ring Provider Active Dr. Catarino Dominguez MD Attending Provider, Other Pr ovider Active Team Status: Inactive Member Role Status Dates Dr. Lenin Bhatt MD Primary Care Provider, Refer ring Provider Active Dr. Catarino Dominguez MD Attending Provider Active County Agent Relationship Specialty Start Date End Date Lenin Bhatt MD [address] [place], [place] [id number] PCP - General 10/18/02 County Agent Relationship Specialty Start Date End Date Lenin Bhatt MD [address] [place], [place] [id number] PCP - General 10/18/02 County Agent Relationship Specialty Start Date End Date Lenin Bhatt MD [address] [place] [address] PCP - General 10/18/02 County Agent Relationship Specialty Start Date End Date Lenin Bhatt MD [address] [place] [address] PCP - General 10/18/02 County Agent Relationship Specialty Start Date End Date Lenin Bhatt MD [address] [place] [address] PCP - General 10/18/02 County Agent Relationship Specialty Start Date End Date Lenin Bhatt MD [address] [place] [address] PCP - General 10/18/02 County Agent Relationship Specialty Start Date End Date Lenin Bhatt MD [address] [place] [address] PCP - General 10/18/02 County Agent Relationship Specialty Start Date End Date Lenin Bhatt MD [address] [place] [address] PCP - General 10/18/02 County Agent Relationship Specialty Start Date End Date Lenin Bhatt MD [address] [place] [address] PCP - General 10/18/02 County Agent Relationship Specialty Start Date End Date Lenin Bhatt MD [address] [place], [place] [address]202 [phone] PCP - General 10/18/02 County Agent Relationship Specialty Start Date End Date Lenin Bhatt MD [address] [place] [address] PCP - General 10/18/02 County Agent Relationship Specialty Start Date End Date Lnein Bhatt MD [address] [place] [address] PCP - General 10/18/02 County Agent Relationship Specialty Start Date End Date Lenin Bhatt MD [address] [place] [address] PCP - General 10/18/02 County Agent Relationship Specialty Start Date End Date Lenin Bhatt MD [address] [place] [address] PCP - General 10/18/02 County Agent Relationship Specialty Start Date End Date Lenin Bhatt MD [address] [place] [address] PCP - General 10/18/02 County Agent Relationship Specialty Start Date End Date Lenin Bhatt MD [address] [place] [address] PCP - General 10/18/02 County Agent Relationship Specialty Start Date End Date Lenin Bhatt MD [address] [place] [address] PCP - General 10/18/02 County Agent Relationship Specialty Start Date End Date Lenin Bhatt MD [address] [place] [address] PCP - General 10/18/02 County Agent Relationship Specialty Start Date End Date Lenin Bhatt MD [address] [place] [address] PCP - General 10/18/02 County Agent Relationship Specialty Start Date End Date Lenin Bhatt MD [address] [place] [address] PCP - General 10/18/02 County Agent Relationship Specialty Start Date End Date Lenin Bhatt MD [address] [place] [address] PCP - General 10/18/02 County Agent Relationship Specialty Start Date End Date Lenin Bhatt MD [address] [place] [address] PCP - General 10/18/02 County Agent Relationship Specialty Start Date End Date Lenin Bhatt MD [address] [place] [address] PCP - General 10/18/02 County Agent Relationship Specialty Start Date End Date Lenin Bhatt MD [address] [place] [address] PCP - General 10/18/02 Moira Hearn, AMBULATORY ANALYST.ONE PIECE EXPANSION MAKER HAND [address] [place] [address] [facility] 08/07/24 County Agent Relationship Specialty Start Date End Date Lenin Bhatt MD [address] [place] [address] PCP - General 10/18/02 Moira Hearn, AMBULATORY ANALYST.ONE PIECE EXPANSION MAKER HAND [address] [place] [address] [facility] 08/07/24 County Agent Relationship Specialty Start Date End Date Lenin Bhatt MD [address] [place] [address] PCP - General 10/18/02 Moira Hearn, AMBULATORY ANALYST.ONE PIECE EXPANSION MAKER HAND [address] [place] [address] [facility] 08/07/24 County Agent Relationship Specialty Start Date End Date Lenin Bhatt MD [address] [place] [address] PCP - General 10/18/02 Moira Hearn, AMBULATORY ANALYST.ONE PIECE EXPANSION MAKER HAND [address] [place] [address] [facility] Internal Medicine 08/07/24 County Agent Relationship Specialty Start Date End Date Lenin Bhatt MD [address] [place] [address] PCP - General 10/18/02 Moira Hearn, AMBULATORY ANALYST.ONE PIECE EXPANSION MAKER HAND [address] [place] [address] [facility] Internal Medicine 08/07/24 County Agent Relationship Specialty Start Date End Date Lenin Bhatt MD [address] [place] [address] PCP - General 10/18/02 Moira Hearn, AMBULATORY ANALYST.ONE PIECE EXPANSION MAKER HAND [address] [facility] [place] [address] [facility] Internal Medicine 08/07/24 County Agent Relationship Specialty Start Date End Date Lenin Bhatt MD [address] [place] [address] PCP General 10/18/02 Moira Hearn, AMBULATORY ANALYST.ONE PIECE EXPANSION MAKER HAND [address] [place] [address] [facility] Internal [facility] 08/07/24 County Agent Relationship Specialty Start Date End Date Lenin Bhatt MD [address] [place] [address] PCP General 10/18/02 Moira Hearn, AMBULATORY ANALYST.ONE PIECE EXPANSION MAKER HAND [address] [place] [address] [facility] Internal [facility] 08/07/24 Team Status: Active Member Role Status Dates Dr. Lenin Bhatt MD Primary Care Provider Active Start: August 02, 2024 Dr. Lenin Bhatt MD Referring Provider Active Start: August 02, 2024 Bia Wade BOND TRADER, BOND TRADER-C Attending Provider Active Start: August 02, 2024 Bia Wade BOND TRADER, BOND TRADER-C Other Provider Active Start: August 02, 2024 Team Status: Inactive Member Role Status Dates Dr. Lenin Bhatt MD Primary Care Provider Active Start: August 16, 2024 End: August 29, 2024 Dr. Lenin Bhatt MD Referring Provider Active Start: August 16, 2024 End: August 29, 2024 Bia Wade BOND TRADER, BOND TRADER-C Attending Provider Active Start: August 16, 2024 End: August 29, 2024 Team Status: Active Member Role Status Dates Dr. Lenin Bhatt MD Primary Care Provider Active Start: August 16, 2024 Bia Wade BOND TRADER, BOND TRADER-C Attending Provider Active Start: August 16, 2024 Bia Jack MelendezMauro BOND TRADER, BOND TRADER-C Referring Provider Active Start: August 16, 2024 Bia E Mauro BOND TRADER, BOND TRADER-C Other Provider Active Start: August 16, 2024 Team Status: Active Member Role Status Dates Dr. Lenin Bhatt MD Primary Care Provider Active Start: September 06, 2024 Bia E Mauro BOND TRADER, BOND TRADER-C Attending Provider Active Start: September 06, 2024 Bia E Mauro BOND TRADER, BOND TRADER-C Referring Provider Active Start: September 06, 2024 Bia Jack MelendezMauro BOND TRADER, BOND TRADER-C Other Provider Active Start: September 06, 2024 Team Status: Inactive Member Role Status Dates Dr. Lenin Bhatt MD Primary Care Provider Active Start: September 27, 2024 End: September 29, 2024 Dr. Lenin Bhatt MD Referring Provider Active Start: September 27, 2024 End: September 29, 2024 Biasanchez Longoell BOND TRADER, BOND TRADER-C Attending Provider Active Start: September 27, 2024 End: September 29, 2024 Team Status: Active Member Role Status Dates Dr. Lenin Bhatt MD Primary Care Provider Active Start: September 27, 2024 Bia Jack LongoMauro BOND TRADER, BOND TRADER-C Attending Provider Active Start: September 27, 2024 Bia Jack MelendezMauro BOND TRADER, BOND TRADER-C Referring Provider Active Start: September 27, 2024 Bia Jack MelendezMauro BOND TRADER, BOND TRADER-C Other Provider Active Start: September 27, 2024 Team Status: Active Member Role/Relationship Status Dates Dr. Lenin Bhatt MD Primary Care Provider Active Team Status: Inactive Member Role/Relationship Status Dates Dr. Lenin Bhatt MD Primary Care Provider Active Start: November 09, 2024 End: November 27, 2024 Dr. Lenin Bhatt MD Referring Provider Active Start: November 09, 2024 End: November 27, 2024 Dr. Catarino Dominguez MD Attending Provider Active Start: November 09, 2024 End: November 27, 2024 Team Status: Active Member Role/Relationship Status Dates Dr. Lenin Bhatt MD Primary Care Provider Active Start: November 09, 2024 Dr. Lenin Bhatt MD Referring Provider Active Start: November 09, 2024 Dr. Catarino Dominguez MD Attending Provider Active Start: November 09, 2024 Dr. Catarino Dominguez MD Other Provider Active Start: November 09, 2024 Team Status: Active Member Role/Relationship Status Dates Dr. Lenin Bhatt MD Primary Care Provider Active Start: December 28, 2024 Dr. Lenin Bhatt MD Referring Provider Active Start: December 28, 2024 Dr. Catarino Dominguez MD Attending Provider Active Start: December 28, 2024 Dr. Catarino Dominguez MD Other Provider Active Start: December 28, 2024 Team Status: Active Member Role/Relationship Status Dates Dr. Lenin Bhatt MD Primary Care Provider Active Start: January 18, 2025 Dr. Lenin Bhatt MD Referring Provider Active Start: January 18, 2025 Dr. Catarino Dominguez MD Attending Provider Active Start: January 18, 2025 Dr. Catarino Dominguez MD Other Provider Active Start: January 18, 2025 Team Status: Inactive Member Role/Relationship Status Dates Dr. Lenin Bhatt MD Primary Care Provider Active Start: January 25, 2025 End: January 27, 2025 Dr. Lenin Bhatt MD Referring Provider Active Start: January 25, 2025 End: January 27, 2025 Dr. Catarino Dominguez MD Attending Provider Active Start: January 25, 2025 End: January 27, 2025 Team Status: Active Member Role/Relationship Status Dates Dr. Lenin Bhatt MD Primary Care Provider Active Start: January 25, 2025 Dr. Lenin Bhatt MD Referring Provider Active Start: January 25, 2025 Dr. Catarino Dominguez MD Attending Provider Active Start: January 25, 2025 Dr. Catarino Dominguez MD Other Provider Active Start: January 25, 2025 Team Status: Active Member Role/Relationship Status Dates Dr. Lenin Bhatt MD Primary Care Provider Active Start: February 01, 2025 Dr. Lenin Bhatt MD Referring Provider Active Start: February 01, 2025 Dr. Catarino Dominguez MD Attending Provider Active Start: February 01, 2025 Dr. Catarino Dominguez MD Other Provider Active Start: February 01, 2025 Team Status: Active Member Role/Relationship Status Dates Dr. Lenin Bhatt MD Primary Care Provider Active Start: February 15, 2025 Dr. Lenin Bhatt MD Referring Provider Active Start: February 15, 2025 Dr. Catarino Dominguez MD Attending Provider Active Start: February 15, 2025 Dr. Catarino Dominguez MD Other Provider Active Start: February 15, 2025 Team Status: Inactive Member Role/Relationship Status Dates Dr. Lenin Bhatt MD Primary Care Provider Active Start: February 19, 2025 End: February 26, 2025 Dr. Lenin Bhatt MD Referring Provider Active Start: February 19, 2025 End: February 26, 2025 Dr. Catarino Dominguez MD Attending Provider Active Start: February 19, 2025 End: February 26, 2025 Team Status: Active Member Role/Relationship Status Dates Dr. Lenin Bhatt MD Primary Care Provider Active Start: February 20, 2025 Dr. Lenin Bhatt MD Referring Provider Active Start: February 20, 2025 Dr. Catarino Dominguez MD Other Provider Active Start: February 20, 2025 Dr. Alverto Carrasco MD Attending Provider Active Start: February 20, 2025 Source Comments (unrecognize d section and content) In the event this informatio n is protected by the Federal Confidentiality of Alcohol and Drug Abuse Patient Records regulations: The Federal rules restrict any use of the information to criminally investigate or prosecute any alcohol or drug abuse patient.[facility] the event this information is protected by the Federal Confidentiality of Alcohol and Drug Abuse Patient Records regulations: The Federal rules restrict any use of the information to criminally investigate or prosecute any alcohol or drug abuse patient.[facility] the event this information is protected by the Federal Confidentiality of Alcohol and Drug Abuse Patient Records regulations: The Federal rules restrict any use of the information to criminally investigate or prosecute any alcohol or drug abuse patient.[facility] the event this information is protected by the Federal Confidentiality of Alcohol and Drug Abuse Patient Records regulations: The Federal rules restrict any use of the information to criminally investigate or prosecute any alcohol or drug abuse patient.[facility] the event this information is protected by the Federal Confidentiality of Alcohol and Drug Abuse Patient Records regulations: The Federal rules restrict any use of the information to criminally investigate or prosecute any alcohol or drug abuse patient.[facility] the event this information is protected by the Federal Confidentiality of Alcohol and Drug Abuse Patient Records regulations: The Federal rules restrict any use of the information to criminally investigate or prosecute any alcohol or drug abuse patient.[facility] the event this information is protected by the Federal Confidentiality of Alcohol and Drug Abuse Patient Records regulations: The Federal rules restrict any use of the information to criminally investigate or prosecute any alcohol or drug abuse patient.[facility] the event this information is protected by the Federal Confidentiality of Alcohol and Drug Abuse Patient Records regulations: The Federal rules restrict any use of the information to criminally investigate or prosecute any alcohol or drug abuse patient.[facility] the event this information is protected by the Federal Confidentiality of Alcohol and Drug Abuse Patient Records regulations: The Federal rules restrict any use of the information to criminally investigate or prosecute any alcohol or drug abuse patient.[facility] the event this information is protected by the Federal Confidentiality of Alcohol and Drug Abuse Patient Records regulations: The Federal rules restrict any use of the information to criminally investigate or prosecute any alcohol or drug abuse patient.[facility] the event this information is protected by the Federal Confidentiality of Alcohol and Drug Abuse Patient Records regulations: The Federal rules restrict any use of the information to criminally investigate or prosecute any alcohol or drug abuse patient.[facility] the event this information is protected by the Federal Confidentiality of Alcohol and Drug Abuse Patient Records regulations: The Federal rules restrict any use of the information to criminally investigate or prosecute any alcohol or drug abuse patient.[facility]In the event this information is protected by the Federal Confidentiality of Alcohol and Drug Abuse Patient Records regulations: The Federal rules restrict any use of the information to criminally investigate or prosecute any alcohol or drug abuse patient.[facility]In the event this information is protected by the Federal Confidentiality of Alcohol and Drug Abuse Patient Records regulations: The Federal rules restrict any use of the information to criminally investigate or prosecute any alcohol or drug abuse patient.[facility]In the event this information is protected by the Federal Confidentiality of Alcohol and Drug Abuse Patient Records regulations: The Federal rules restrict any use of the information to criminally investigate or prosecute any alcohol or drug abuse patient.[facility] HospitalIn the event this information is protected by the Federal Confidentiality of Alcohol and Drug Abuse Patient Records regulations: The Federal rules restrict any use of the information to criminally investigate or prosecute any alcohol or drug abuse patient.[facility] HospitalIn the event this information is protected by the Federal Confidentiality of Alcohol and Drug Abuse Patient Records regulations: The Federal rules restrict any use of the information to criminally investigate or prosecute any alcohol or drug abuse patient.[facility] HospitalIn the event this information is protected by the Federal Confidentiality of Alcohol and Drug Abuse Patient Records regulations: The Federal rules restrict any use of the information to criminally investigate or prosecute any alcohol or drug abuse patient.[facility] HospitalIn the event this information is protected by the Federal Confidentiality of Alcohol and Drug Abuse Patient Records regulations: The Federal rules restrict any use of the information to criminally investigate or prosecute any alcohol or drug abuse patient.[facility] HospitalIn the event this information is protected by the Federal Confidentiality of Alcohol and Drug Abuse Patient Records regulations: The Federal rules restrict any use of the information to criminally investigate or prosecute any alcohol or drug abuse patient.[facility] HospitalIn the event this information is protected by the Federal Confidentiality of Alcohol and Drug Abuse Patient Records regulations: The Federal rules restrict any use of the information to criminally investigate or prosecute any alcohol or drug abuse patient.[facility] HospitalIn the event this information is protected by the Federal Confidentiality of Alcohol and Drug Abuse Patient Records regulations: The Federal rules restrict any use of the information to criminally investigate or prosecute any alcohol or drug abuse patient.[facility] HospitalIn the event this information is protected by the Federal Confidentiality of Alcohol and Drug Abuse Patient Records regulations: The Federal rules restrict any use of the information to criminally investigate or prosecute any alcohol or drug abuse patient.[facility] HospitalIn the event this information is protected by the Federal Confidentiality of Alcohol and Drug Abuse Patient Records regulations: The Federal rules restrict any use of the information to criminally investigate or prosecute any alcohol or drug abuse patient.[facility] HospitalIn the event this information is protected by the Federal Confidentiality of Alcohol and Drug Abuse Patient Records regulations: The Federal rules restrict any use of the information to criminally investigate or prosecute any alcohol or drug abuse patient.[facility] HospitalIn the event this information is protected by the Federal Confidentiality of Alcohol and Drug Abuse Patient Records regulations: The Federal rules restrict any use of the information to criminally investigate or prosecute any alcohol or drug abuse patient.[facility] HospitalIn the event this information is protected by the Federal Confidentiality of Alcohol and Drug Abuse Patient Records regulations: The Federal rules restrict any use of the information to criminally investigate or prosecute any alcohol or drug abuse patient.[facility] HospitalIn the event this information is protected by the Federal Confidentiality of Alcohol and Drug Abuse Patient Records regulations: The Federal rules restrict any use of the information to criminally investigate or prosecute any alcohol or drug abuse patient.[facility] HospitalIn the event this information is protected by the Federal Confidentiality of Alcohol and Drug Abuse Patient Records regulations: The Federal rules restrict any use of the information to criminally investigate or prosecute any alcohol or drug abuse patient.[facility] HospitalIn the event this information is protected by the Federal Confidentiality of Alcohol and Drug Abuse Patient Records regulations: The Federal rules restrict any use of the information to criminally investigate or prosecute any alcohol or drug abuse patient.[facility] HospitalIn the event this information is protected by the Federal Confidentiality of Alcohol and Drug Abuse Patient Records regulations: The Federal rules restrict any use of the information to criminally investigate or prosecute any alcohol or drug abuse patient.[facility] HospitalIn the event this information is protected by the Federal Confidentiality of Alcohol and Drug Abuse Patient Records regulations: The Federal rules restrict any use of the information to criminally investigate or prosecute any alcohol or drug abuse patient.[facility] HospitalIn the event this information is protected by the Federal Confidentiality of Alcohol and Drug Abuse Patient Records regulations: The Federal rules restrict any use of the information to criminally investigate or prosecute any alcohol or drug abuse patient.[facility] HospitalIn the event this information is protected by the Federal Confidentiality of Alcohol and Drug Abuse Patient Records regulations: The Federal rules restrict any use of the information to criminally investigate or prosecute any alcohol or drug abuse patient.[facility] HospitalIn the event this information is protected by the Federal Confidentiality of Alcohol and Drug Abuse Patient Records regulations: The Federal rules restrict any use of the information to criminally investigate or prosecute any alcohol or drug abuse patient.[facility] HospitalIn the event this information is protected by the Federal Confidentiality of Alcohol and Drug Abuse Patient Records regulations: The Federal rules restrict any use of the information to criminally investigate or prosecute any alcohol or drug abuse patient.[facility] HospitalIn the event this information is protected by the Federal Confidentiality of Alcohol and Drug Abuse Patient Records regulations: The Federal rules restrict any use of the information to criminally investigate or prosecute any alcohol or drug abuse patient.[facility] HospitalIn the event this information is protected by the Federal Confidentiality of Alcohol and Drug Abuse Patient Records regulations: The Federal rules restrict any use of the information to criminally investigate or prosecute any alcohol or drug abuse patient.[facility] HospitalIn the event this information is protected by the Federal Confidentiality of Alcohol and Drug Abuse Patient Records regulations: The Federal rules restrict any use of the information to criminally investigate or prosecute any alcohol or drug abuse patient.[facility] HospitalIn the event this information is protected by the Federal Confidentiality of Alcohol and Drug Abuse Patient Records regulations: The Federal rules restrict any use of the information to criminally investigate or prosecute any alcohol or drug abuse patient.[facility] HospitalIn the event this information is protected by the Federal Confidentiality of Alcohol and Drug Abuse Patient Records regulations: The Federal rules restrict any use of the information to criminally investigate or prosecute any alcohol or drug abuse patient.[facility] HospitalIn the event this information is protected by the Federal Confidentiality of Alcohol and Drug Abuse Patient Records regulations: The Federal rules restrict any use of the information to criminally investigate or prosecute any alcohol or drug abuse patient.[facility] HospitalIn the event this information is protected by the Federal Confidentiality of Alcohol and Drug Abuse Patient Records regulations: The Federal rules restrict any use of the information to criminally investigate or prosecute any alcohol or drug abuse patient.[facility] HospitalIn the event this information is protected by the Federal Confidentiality of Alcohol and Drug Abuse Patient Records regulations: The Federal rules restrict any use of the information to criminally investigate or prosecute any alcohol or drug abuse patient.[facility] HospitalIn the event this information is protected by the Federal Confidentiality of Alcohol and Drug Abuse Patient Records regulations: The Federal rules restrict any use of the information to criminally investigate or prosecute any alcohol or drug abuse patient.[facility] HospitalIn the event this information is protected by the Federal Confidentiality of Alcohol and Drug Abuse Patient Records regulations: The Federal rules restrict any use of the information to criminally investigate or prosecute any alcohol or drug abuse patient.[facility] HospitalIn the event this information is protected by the Federal Confidentiality of Alcohol and Drug Abuse Patient Records regulations: The Federal rules restrict any use of the information to criminally investigate or prosecute any alcohol or drug abuse patient.[facility] HospitalIn the event this information is protected by the Federal Confidentiality of Alcohol and Drug Abuse Patient Records regulations: The Federal rules restrict any use of the information to criminally investigate or prosecute any alcohol or drug abuse patient.[facility] HospitalIn the event this information is protected by the Federal Confidentiality of Alcohol and Drug Abuse Patient Records regulations: The Federal rules restrict any use of the information to criminally investigate or prosecute any alcohol or drug abuse patient.[facility] HospitalIn the event this information is protected by the Federal Confidentiality of Alcohol and Drug Abuse Patient Records regulations: The Federal rules restrict any use of the information to criminally investigate or prosecute any alcohol or drug abuse patient.[facility] HospitalIn the event this information is protected by the Federal Confidentiality of Alcohol and Drug Abuse Patient Records regulations: The Federal rules restrict any use of the information to criminally investigate or prosecute any alcohol or drug abuse patient.[facility] HospitalIn the event this information is protected by the Federal Confidentiality of Alcohol and Drug Abuse Patient Records regulations: The Federal rules restrict any use of the information to criminally investigate or prosecute any alcohol or drug abuse patient.[facility] HospitalIn the event this information is protected by the Federal Confidentiality of Alcohol and Drug Abuse Patient Records regulations: The Federal rules restrict any use of the information to criminally investigate or prosecute any alcohol or drug abuse patient.[facility] HospitalIn the event this information is protected by the Federal Confidentiality of Alcohol and Drug Abuse Patient Records regulations: The Federal rules restrict any use of the information to criminally investigate or prosecute any alcohol or drug abuse patient.[facility] HospitalIn the event this information is protected by the Federal Confidentiality of Alcohol and Drug Abuse Patient Records regulations: The Federal rules restrict any use of the information to criminally investigate or prosecute any alcohol or drug abuse patient.[facility] HospitalIn the event this information is protected by the Federal Confidentiality of Alcohol and Drug Abuse Patient Records regulations: The Federal rules restrict any use of the information to criminally investigate or prosecute any alcohol or drug abuse patient.[facility] HospitalIn the event this information is protected by the Federal Confidentiality of Alcohol and Drug Abuse Patient Records regulations: The Federal rules restrict any use of the information to criminally investigate or prosecute any alcohol or drug abuse patient.[facility] HospitalIn the event this information is protected by the Federal Confidentiality of Alcohol and Drug Abuse Patient Records regulations: The Federal rules restrict any use of the information to criminally investigate or prosecute any alcohol or drug abuse patient.[facility] HospitalIn the event this information is protected by the Federal Confidentiality of Alcohol and Drug Abuse Patient Records regulations: The Federal rules restrict any use of the information to criminally investigate or prosecute any alcohol or drug abuse patient.[facility] HospitalIn the event this information is protected by the Federal Confidentiality of Alcohol and Drug Abuse Patient Records regulations: The Federal rules restrict any use of the information to criminally investigate or prosecute any alcohol or drug abuse patient.[facility] HospitalIn the event this information is protected by the Federal Confidentiality of Alcohol and Drug Abuse Patient Records regulations: The Federal rules restrict any use of the information to criminally investigate or prosecute any alcohol or drug abuse patient.[facility] HospitalIn the event this information is protected by the Federal Confidentiality of Alcohol and Drug Abuse Patient Records regulations: The Federal rules restrict any use of the information to criminally investigate or prosecute any alcohol or drug abuse patient.[facility] HospitalIn the event this information is protected by the Federal Confidentiality of Alcohol and Drug Abuse Patient Records regulations: The Federal rules restrict any use of the information to criminally investigate or prosecute any alcohol or drug abuse patient.[facility] HospitalIn the event this information is protected by the Federal Confidentiality of Alcohol and Drug Abuse Patient Records regulations: The Federal rules restrict any use of the information to criminally investigate or prosecute any alcohol or drug abuse patient.[facility] HospitalIn the event this information is protected by the Federal Confidentiality of Alcohol and Drug Abuse Patient Records regulations: The Federal rules restrict any use of the information to criminally investigate or prosecute any alcohol or drug abuse patient.[facility] HospitalIn the event this information is protected by the Federal Confidentiality of Alcohol and Drug Abuse Patient Records regulations: The Federal rules restrict any use of the information to criminally investigate or prosecute any alcohol or drug abuse patient.[facility] HospitalIn the event this information is protected by the Federal Confidentiality of Alcohol and Drug Abuse Patient Records regulations: The Federal rules restrict any use of the information to criminally investigate or prosecute any alcohol or drug abuse patient.[facility] HospitalIn the event this information is protected by the Federal Confidentiality of Alcohol and Drug Abuse Patient Records regulations: The Federal rules restrict any use of the information to criminally investigate or prosecute any alcohol or drug abuse patient.[facility] HospitalIn the event this information is protected by the Federal Confidentiality of Alcohol and Drug Abuse Patient Records regulations: The Federal rules restrict any use of the information to criminally investigate or prosecute any alcohol or drug abuse patient.[facility] HospitalIn the event this information is protected by the Federal Confidentiality of Alcohol and Drug Abuse Patient Records regulations: The Federal rules restrict any use of the information to criminally investigate or prosecute any alcohol or drug abuse patient.[facility] HospitalIn the event this information is protected by the Federal Confidentiality of Alcohol and Drug Abuse Patient Records regulations: The Federal rules restrict any use of the information to criminally investigate or prosecute any alcohol or drug abuse patient.[facility] HospitalIn the event this information is protected by the Federal Confidentiality of Alcohol and Drug Abuse Patient Records regulations: The Federal rules restrict any use of the information to criminally investigate or prosecute any alcohol or drug abuse patient.[facility] HospitalIn the event this information is protected by the Federal Confidentiality of Alcohol and Drug Abuse Patient Records regulations: The Federal rules restrict any use of the information to criminally investigate or prosecute any alcohol or drug abuse patient.[facility] HospitalIn the event this information is protected by the Federal Confidentiality of Alcohol and Drug Abuse Patient Records regulations: The Federal rules restrict any use of the information to criminally investigate or prosecute any alcohol or drug abuse patient.[facility] HospitalIn the event this information is protected by the Federal Confidentiality of Alcohol and Drug Abuse Patient Records regulations: The Federal rules restrict any use of the information to criminally investigate or prosecute any alcohol or drug abuse patient.[facility] HospitalIn the event this information is protected by the Federal Confidentiality of Alcohol and Drug Abuse Patient Records regulations: The Federal rules restrict any use of the information to criminally investigate or prosecute any alcohol or drug abuse patient.[facility] HospitalIn the event this information is protected by the Federal Confidentiality of Alcohol and Drug Abuse Patient Records regulations: The Federal rules restrict any use of the information to criminally investigate or prosecute any alcohol or drug abuse patient.[facility] HospitalIn the event this information is protected by the Federal Confidentiality of Alcohol and Drug Abuse Patient Records regulations: The Federal rules restrict any use of the information to criminally investigate or prosecute any alcohol or drug abuse patient.[facility] HospitalIn the event this information is protected by the Federal Confidentiality of Alcohol and Drug Abuse Patient Records regulations: The Federal rules restrict any use of the information to criminally investigate or prosecute any alcohol or drug abuse patient.[facility] HospitalIn the event this information is protected by the Federal Confidentiality of Alcohol and Drug Abuse Patient Records regulations: The Federal rules restrict any use of the information to criminally investigate or prosecute any alcohol or drug abuse patient.[facility] HospitalIn the event this information is protected by the Federal Confidentiality of Alcohol and Drug Abuse Patient Records regulations: The Federal rules restrict any use of the information to criminally investigate or prosecute any alcohol or drug abuse patient.[facility] HospitalIn the event this information is protected by the Federal Confidentiality of Alcohol and Drug Abuse Patient Records regulations: The Federal rules restrict any use of the information to criminally investigate or prosecute any alcohol or drug abuse patient.[facility] HospitalIn the event this information is protected by the Federal Confidentiality of Alcohol and Drug Abuse Patient Records regulations: The Federal rules restrict any use of the information to criminally investigate or prosecute any alcohol or drug abuse patient.[facility] HospitalIn the event this information is protected by the Federal Confidentiality of Alcohol and Drug Abuse Patient Records regulations: The Federal rules restrict any use of the information to criminally investigate or prosecute any alcohol or drug abuse patient.[facility] Goals (unrecognized section and content) Goals may be documented in a n alternate sectionGoals may be documented in an alternate sectionGoals may be documented in an alternate sectionGoals may be documented in an alternate sectionGoals may be documented in an alternate sectionGoals may be documented in an alternate sectionGoals may be documented in an alternate sectionGoals may be documented in an alternate section FOR RECORDS PERTAINING TO PATIENTS WHO ARE [...] BE BASED ON THE PRIMARY CLINICAL RECORDS. [facility] [employer] [facility]. provides no warranty or guarantee of the accuracy or completeness of information in this document.
[2025-03-11 05:00] VITALS: BP 110/80; PULSE 90; RESP 16; O2SAT 98
[2025-03-11 05:35] VITALS: BP 110/80; PULSE 90; RESP 16; TEMP 37; O2SAT 98
== END 2025-03-11 05:36 | disposition home or self-care (01) ==
PROVIDERS: Emergency Provider Surgery; PCP Internal Medicine; Visit Provider Surgery
DX: S00.03XA Contusion of scalp, initial encounter (principal); I69.951 Hemiplegia and hemiparesis following unspecified cerebrovascular disease affecting right dominant side; I11.0 Hypertensive heart disease with heart failure; I50.9 Heart failure, unspecified; S70.01XA Contusion of right hip, initial encounter; S30.1XXA Contusion of abdominal wall, initial encounter; E78.5 Hyperlipidemia, unspecified; W01.190A Fall on same level from slipping, tripping and stumbling with subsequent striking against furniture, initial encounter; Y93.01 Activity, walking, marching and hiking; G93.89 Other specified disorders of brain; I25.10 Atherosclerotic heart disease of native coronary artery without angina pectoris; Z79.02 Long term (current) use of antithrombotics/antiplatelets; Z79.82 Long term (current) use of aspirin; Z79.890 Hormone replacement therapy; Z79.899 Other long term (current) drug therapy; Z87.891 Personal history of nicotine dependence
CPT/HCPCS: 70450; 72125; 74177; 80048; 85025; 96361; 96374; 96375; 99285; Q9967; A4216; J2405

== ENCOUNTER 2025-03-22 10:15 | Outpatient (RCR) | payer MEDICARE, MEDICAID, SELFPAY ==
[2025-03-01 11:33] VITALS: BP 127/71; PULSE 80; RESP 18; TEMP 36.5
--- NOTE | 2025-03-01 13:50 | PCM.WC.PN ---
History of Present Illness Date of Service: 03/01/25 Chief Complaint: Non healing sacral ulcer History of Wound: Patient is a 74 year female who presents to the wound center for evaluation of an a sacral ulcer and a left ischial ulcer. She was recently hospitalized for UTI/and acute kidney disease. She has a history of HTN, hyperlipidemia, seizure disorder, hypothyroidism, debility. Left ischial ulcer from pressure. The sacral ulcer is in the area of previous ulcer that healed last year. She denies fever, chills, nausea and vomiting. She is accompanied today with her son. She has home health. She sleeps on a couch. She states that she is unsure if a bed would fit into her bedroom due to it being so small. Today denies fever, chills, nausea and vomiting. Progress of Wound: No acute concerns reported at this time. Was seen in consult by plastic surgery due to concern for delayed healing however no further intervention was recommended. Objective Data Objective Data Vital Signs: Vital Signs Temp Pulse Resp BP O2 Del Method 97.7 F L 80 18 127/71 H Room Air 03/01/25 11:33 03/01/25 11:33 03/01/25 11:33 03/01/25 11:33 03/01/25 11:33 Oxygen Delivery Method Room Air Charges/Coding Procedures Integumentary 111xxx-113xx: [id number] Maria M subq tissue 20 sq cm/< Physical Exam Const alert and no apparent distress General Appearance: cooperative and comfortable HEENT normocephalic and head/scalp atraumatic Eyes EOMs intact bilaterally Neck full ROM and supple Resp normal respiratory effort Effort and Inspection: able to speak in complete sentences Skin Wounds: wounds noted size Size: See clinical note, bed granulating well, margins well approximated, no odor and surrounding erythema Neuro oriented x3, CN's II-XII intact bilaterally and moves all extremities Psych mental status grossly normal, thought process normal and cooperative Debridement Note Debridement Note Wound debrided: Sacral Type of Debridement: Excisional debridement Anesthesia Used: 5% Lidocaine Gel Depth: Down to and including healthy tissue and in the subcutaneous layer Percentage of wound debrided: 100 Instrument Used: 3mm curette Tissue Removed: Devitalized tissue Severity: Fat Layer Exposed Amount of bleeding with debridement: Mild Bleeding Controlled with: Pressure Patient tolerated procedure: Patient tolerated procedure well Post-Debridement Measurements and Additional Note: Post-Debridement Measurements/Treatment WC - Nurse 1 - General Ulcer Assessment Start: 03/01/25 11:31 Freq: Status: Active Protocol: LAURIE Activity Type Activity Date Activity User E-sign Co-sign Detail Recorded Client Recorded Date Recorded By Document 03/01/25 11:33 PR [id number] 03/01/25 11:44 PR 03/01/25 11:33 - Today's Visit Information Type of service Follow-up Visit (Physician/PUBLIC SPEAKING COACH ) Arrival Mode Ambulatory, Walker Accompanied by self Patient Identification Verified (Name & Yes ) Safety Precautions Fall Prevention Vital Signs Temperature (97.8 F-99.1 F) 97.7 F L Temperature Source Temporal Pulse Rate (60-100) 80 Pulse Location Monitor Respiratory Rate (12-18) 18 Respiratory rate source Observation Oxygen Delivery Method Room Air Blood Pressure (90/60-120/80) 127/71 H Blood Pressure Mean (mm Hg) 89 Source Monitor Position Sitting Blood Pressure Location Left Arm History Since Last Visit- (Skip if this is Patient's initial visit) Has dressing in place as prescribed Yes Has compression in place as prescribed Yes Has offloadiing in place as prescribed Yes Experienced any changes in pain level or Yes management Left Footwear Regular Shoe Right Footwear Regular Shoe Pain Scale: 0-10 Numeric Is Patient Pain Free? Yes [place]AZON - Nurse 1 - General Ulcer Measurement Start: 03/01/25 11:31 Freq: Status: Active Protocol: Activity Type Activity Date Activity User E-sign Co-sign Detail Recorded Client Recorded Date Recorded By Document 03/01/25 11:33 PR [id number] 03/01/25 11:44 PR 03/01/25 11:33 Wound Center Nurse 1 #1- SACRAL -Current Size (cm) - Length 0.5 -Current Size (cm) - Width 0.5 -Current Size (cm) - Depth 0.2 -Total Square Cm 0.25 -Exudate Amt None Present -Wound Margin Flat & Intact -Granulation Amt Large (67-100%) -Granulation Quality Pale,[place] -Slough/Fibrin No -Texture (Tsering-wound Skin Appearance) Assessed -Moisture (Tsering-wound Skin Appearance) Assessed -Color (Tsering-wound Skin Appearance) Assessed -Temperature (Tsering-wound Skin No Abnormality Appearance) (Pt Warm) -Tenderness on Palpation (Tsering-wound No Skin Appearance) -Ulcer Cleansing Soap and Water -Foul Odor after Cleansing No -Anesthetic Used 5% Lidocaine Gel Lower Limb Edema Present NA WC - Nurse 2 - General Ulcer CM Notes Start: 03/01/25 11:31 Freq: Status: Active Protocol: Activity Type Activity Date Activity User E-sign Co-sign Detail Recorded Client Recorded Date Recorded By Document 03/01/25 11:52 GM [id number] 03/01/25 11:58 GM 03/01/25 11:52 Wound Center Nurse 2 #1- SACRAL -Time 11:53 -Correct Patient Yes -Correct Side, Site, Position Yes -Correct Procedure Yes -Procedure Performed Yes -Type of Procedure Debridement -Clinical Debridement Subcutaneous -Tissue Removed Subcutaneous -Post Debridement (cm) - Length 0.1 -Post Debridement (cm) - Width 0.1 -Post Debridement (cm) - Depth 0.1 -Total Square (Post) (cm) 0.01 -Area of Debridement (cm) - Length 0.1 -Area of Debridement (cm) - Width 0.1 -Total Square (Area) (cm) 0.01 -Tunneling No -Undermining/Tunneling No -Circular Undermining No -Wound/Ulcer Outcome Not Healed -Ulcer Cleansing Rinsed/ Irrigated with Saline -Foul Odor after Cleansing No -Bioengineered Tissue No -Bleeding Controlled with Pressure -Treatment Response Procedure Tolerated Well -Offloading No -Debridement - Subq, 1st 20sq cm Yes Pain Scale: 0-10 Numeric Is Patient Pain Free? Yes - Nurse 3 - General Ulcer D/C NN Start: 03/01/25 11:31 Freq: Status: Active Protocol: Activity Type Activity Date Activity User E-sign Co-sign Detail Recorded Client Recorded Date Recorded By Document 03/01/25 12:18 MT [id number] 03/01/25 12:22 MT Edit Result 03/01/25 12:18 MT (1) [id number] 03/01/25 12:49 MT (1) #1- SACRAL - Primary Dressing Applied => Aquacel Extra, => Silicone Border => Foam 4x4 03/01/25 12:18 Wound Care Center Nurse 3 #1- SACRAL -Ulcer Cleansing Rinsed/ Irrigated with Saline -Foul Odor after Cleansing No -Negative Pressure Wound Therapy N/A -Primary Dressing Applied Aquacel Extra, Silicone Border Foam 4x4 -Aquacel Extra 1 -Silicone Border Foam 4x4 3 Pain Scale: 0-10 Numeric Is Patient Pain Free? Yes Assessment/Plan Assessment/Plan (1) Sacral decubitus ulcer, stage IV: CODE(S): L89.154 - Pressure ulcer of sacral region, stage 4 (2) Debility: CODE(S): R53.81 - Other malaise (3) History of stroke: CODE(S): Z86.73 - Personal history of transient ischemic attack (TIA), and cerebral infarction without residual deficits (4) Decubitus ulcer of sacral area: CODE(S): L89.159 - Pressure ulcer of sacral region, unspecified stage PLAN: Plan Debridement done as documented above, procedure was well-tolerated. Continues to show very good improvement. Wound bed much better visualized today and actually, minimal area left. As above, no surgical consideration at this time. Continue Aquacel and change daily to twice daily depending on drainage. Cover with foam dressing. Continue offloading, adequate protein intake and other chronic management. She was advised to let us know if she had any further questions or concerns. Follow-up in a week or sooner if needed. This note was generated with [employer] dictation software. It may contain incorrect words, spelling, and punctuation that were not noted in checking the note before signing.
[2025-03-08 10:21] VITALS: BP 138/70; PULSE 80; RESP 18; TEMP 35.6
--- NOTE | 2025-03-08 11:21 | PCM.WC.PN ---
History of Present Illness Date of Service: 03/08/25 Chief Complaint: Non healing sacral ulcer History of Wound: Patient is a 74 year female who presents to the wound center for evaluation of an a sacral ulcer and a left ischial ulcer. She was recently hospitalized for UTI/and acute kidney disease. She has a history of HTN, hyperlipidemia, seizure disorder, hypothyroidism, debility. Left ischial ulcer from pressure. The sacral ulcer is in the area of previous ulcer that healed last year. She denies fever, chills, nausea and vomiting. She is accompanied today with her son. She has home health. She sleeps on a couch. She states that she is unsure if a bed would fit into her bedroom due to it being so small. Today denies fever, chills, nausea and vomiting. Progress of Wound: Prior area of ulceration is healed, no new concerns in that regard. Area of skin breakdown in the gluteal fold. She states that they have been applying Vaseline to the area. Objective Data Objective Data Vital Signs: Vital Signs Temp Pulse Resp BP O2 Del Method 96.1 F L 80 18 138/70 H Room Air 03/08/25 10:21 03/08/25 10:21 03/08/25 10:21 03/08/25 10:21 03/08/25 10:21 Oxygen Delivery Method Room Air Charges/Coding Visit Charges Office Visits / Consults: 13816 OV L3 Est 20min Physical Exam Const alert and no apparent distress General Appearance: cooperative and comfortable HEENT normocephalic and head/scalp atraumatic Eyes EOMs intact bilaterally Neck full ROM and supple Resp normal respiratory effort Effort and Inspection: able to speak in complete sentences Neuro oriented x3, CN's II-XII intact bilaterally and moves all extremities Psych mental status grossly normal, thought process normal and cooperative Debridement Note Debridement Note Post-Debridement Measurements and Additional Note: Post-Debridement Measurements/Treatment [place] - Nurse 1 - General Ulcer Assessment Start: 03/01/25 11:31 Freq: Status: Active Protocol: LAURIE Activity Type Activity Date Activity User E-sign Co-sign Detail Recorded Client Recorded Date Recorded By Document 03/01/25 11:33 MT [id number] 03/01/25 11:44 MT Document 03/08/25 10:21 KW [id number] 03/08/25 10:28 KW 03/01/25 03/08/25 11:33 10:21 - Today's Visit Information Type of service Follow-up Visit Follow-up Visit (Physician/[employer] PROFESSOR (Physician/[employer] STUDIES PROFESSOR ) ) Arrival Mode Ambulatory, Ambulatory, Walker Walker Accompanied by self Patient Identification Verified (Name & Yes Yes ) Safety Precautions Fall Prevention Vital Signs Temperature (97.8 F-99.1 F) 97.7 F L 96.1 F L Temperature Source Temporal Temporal Pulse Rate (60-100) 80 80 Pulse Location Monitor Monitor Respiratory Rate (12-18) 18 18 Respiratory rate source Observation Observation Oxygen Delivery Method Room Air Room Air Blood Pressure (90/60-120/80) 127/71 H 138/70 H Blood Pressure Mean (mm Hg) 89 92 Source Monitor Monitor Position Sitting Semi-Fowlers Blood Pressure Location Left Arm Left Arm History Since Last Visit- (Skip if this is Patient's initial visit) Have you changed medications since your No last visit? Any new allergies or adverse reactions No Had a fall/change in ADL's that may No increase risk of falls Signs or symptoms of abuse and/or No neglect since last visit Have you been in the hospital since your No last visit? Has dressing in place as prescribed Yes Yes Has compression in place as prescribed Yes N/A Has offloadiing in place as prescribed Yes N/A Experienced any changes in pain level or Yes No management Left Footwear Regular Shoe Regular Shoe Right Footwear Regular Shoe Regular Shoe Pain Scale: 0-10 Numeric Is Patient Pain Free? Yes Yes - Nurse 1 - General Ulcer Measurement Start: 03/01/25 11:31 Freq: Status: Active Protocol: Activity Type Activity Date Activity User E-sign Co-sign Detail Recorded Client Recorded Date Recorded By Document 03/01/25 11:33 MT [id number] 03/01/25 11:44 MT Document 03/08/25 10:21 KW [id number] 03/08/25 10:28 KW 03/01/25 03/08/25 11:33 10:21 Wound Center Nurse 1 #1- SACRAL -Current Size (cm) - Length 0.5 0.1 -Current Size (cm) - Width 0.5 0.1 -Current Size (cm) - Depth 0.2 0 -Total Square Cm 0.25 0.01 -Date of Last Picture (Recall this 03/08/25 field) -Epithelialization Large 67-100% -Exudate Amt None Present None Present -Wound Margin Flat & Intact -Granulation Amt Large (67-100%) -Granulation Quality Pale,[place] -Slough/Fibrin No -Texture (Tsering-wound Skin Appearance) Assessed Assessed -Moisture (Tsering-wound Skin Appearance) Assessed Assessed -Color (Tsering-wound Skin Appearance) Assessed Assessed -Temperature (Tsering-wound Skin No Abnormality No Abnormality Appearance) (Pt Warm) (Pt Warm) -Tenderness on Palpation (Tsering-wound No No Skin Appearance) -Ulcer Cleansing Soap and Water -Foul Odor after Cleansing No -Anesthetic Used 5% Lidocaine Gel -Wound Comment(s) possibly healed Lower Limb Edema Present NA WC - Nurse 2 - General Ulcer CM Notes Start: 03/01/25 11:31 Freq: Status: Active Protocol: Activity Type Activity Date Activity User E-sign Co-sign Detail Recorded Client Recorded Date Recorded By Document 03/01/25 11:52 [id number] 03/01/25 11:58 Document 03/08/25 10:37 [id number] 03/08/25 10:39 03/01/25 03/08/25 11:52 10:37 Wound Center Nurse 2 #1- SACRAL -Time 11:53 10:38 -Correct Patient Yes Yes -Correct Side, Site, Position Yes Yes -Correct Procedure Yes No -Procedure Performed Yes No -Type of Procedure Debridement -Clinical Debridement Subcutaneous -Tissue Removed Subcutaneous -Post Debridement (cm) - Length 0.1 -Post Debridement (cm) - Width 0.1 -Post Debridement (cm) - Depth 0.1 -Total Square (Post) (cm) 0.01 -Area of Debridement (cm) - Length 0.1 -Area of Debridement (cm) - Width 0.1 -Total Square (Area) (cm) 0.01 -Tunneling No No -Undermining/Tunneling No No -Circular Undermining No No -Wound/Ulcer Outcome Not Healed Healed- Epithelialized -Ulcer Cleansing Rinsed/ Not Cleansed Irrigated with Saline -Foul Odor after Cleansing No No -Bioengineered Tissue No -Bleeding Controlled with Pressure NA -Treatment Response Procedure Tolerated Well -Offloading No -Debridement - Subq, 1st 20sq cm Yes Pain Scale: 0-10 Numeric Is Patient Pain Free? Yes Yes - Nurse 3 - General Ulcer D/C NN Start: 03/01/25 11:31 Freq: Status: Active Protocol: Activity Type Activity Date Activity User E-sign Co-sign Detail Recorded Client Recorded Date Recorded By Document 03/01/25 12:18 MT [id number] 03/01/25 12:22 MT Edit Result 03/01/25 12:18 MT (1) [id number] 03/01/25 12:49 MT Document 03/08/25 10:44 DS [id number] 03/08/25 10:51 DS (1) #1- SACRAL - Primary Dressing Applied => Aquacel Extra, => Silicone Border => Foam 4x4 03/01/25 03/08/25 12:18 10:44 Wound Care Center Nurse 3 #1- SACRAL -Ulcer Cleansing Rinsed/ Irrigated with Saline -Foul Odor after Cleansing No -Negative Pressure Wound Therapy N/A -Primary Dressing Applied Aquacel Extra, Silicone Border Foam 4x4 -Other Dressing vasoline -Primary Dressing Covered/Secured with Dry Gauze, Secured with Tape -Aquacel Extra 1 -Silicone Border Foam 4x4 3 Pain Scale: 0-10 Numeric Is Patient Pain Free? Yes Yes WC - Visit Discharge Discharge Condition Stable Ambulatory Status Wheelchair Transportation Private Auto Assessment/Plan Assessment/Plan (1) Sacral decubitus ulcer, stage IV: CODE(S): L89.154 - Pressure ulcer of sacral region, stage 4 (2) Debility: CODE(S): R53.81 - Other malaise (3) History of stroke: CODE(S): Z86.73 - Personal history of transient ischemic attack (TIA), and cerebral infarction without residual deficits (4) Decubitus ulcer of sacral area: CODE(S): L89.159 - Pressure ulcer of sacral region, unspecified stage (5) Perirectal skin irritation: CODE(S): K62.89 - Other specified diseases of anus and rectum PLAN: Plan No debridement completed today. Prior area of ulceration is healed. Concern for skin breakdown in the gluteal fold. Recommendation has been to apply Vaseline to the area which she states is being done. Continue same, cover with Adaptic/gauze. Follow-up in 1 week to monitor area. Continue offloading and other chronic wound care measures. Follow-up in a week or sooner if needed. This note was generated with [employer] software. It may contain incorrect words, spelling, and punctuation that were not noted in checking the note before signing.
--- NOTE | 2025-03-09 10:26 | WC ---
PHOTO 03/08/25 SACRAL
[2025-03-22 10:07] VITALS: BP 128/74; PULSE 91; RESP 18; TEMP 36.1
--- NOTE | 2025-03-22 10:38 | PN.PCM_ITS ---
History of Present Illness Date of Service: 03/22/25 Chief Complaint: Non healing sacral ulcer History of Wound: Patient is a 74 year female who presents to the wound center for evaluation of an a sacral ulcer and a left ischial ulcer. She was recently hospitalized for UTI/and acute kidney disease. She has a history of HTN, hyperlipidemia, seizure disorder, hypothyroidism, debility. Left ischial ulcer from pressure. The sacral ulcer is in the area of previous ulcer that healed last year. She denies fever, chills, nausea and vomiting. She is accompanied today with her son. She has home health. She sleeps on a couch. She states that she is unsure if a bed would fit into her bedroom due to it being so small. Today denies fever, chills, nausea and vomiting. Progress of Wound: Prior area of ulceration and area of skin breakdown in gluteal fold completely healed. Recent fall with bruising but no open area. Objective Data Objective Data Vital Signs: Vital Signs Temp Pulse Resp BP O2 Del Method 96.9 F L 91 18 128/74 H Room Air 03/22/25 10:07 03/22/25 10:07 03/22/25 10:07 03/22/25 10:07 03/22/25 10:07 Oxygen Delivery Method Room Air Charges/Coding Visit Charges Office Visits / Consults: 92131 OV L3 Est 20min Physical Exam Const alert and no apparent distress General Appearance: cooperative and comfortable HEENT normocephalic and head/scalp atraumatic Eyes EOMs intact bilaterally Neck full ROM and supple Resp normal respiratory effort Effort and Inspection: able to speak in complete sentences Skin General Skin Exam: ecchymosis Neuro oriented x3, CN's II-XII intact bilaterally and moves all extremities Psych mental status grossly normal, thought process normal and cooperative Debridement Note Debridement Note Post-Debridement Measurements and Additional Note: Post-Debridement Measurements/Treatment WC - Nurse 1 - General Ulcer Assessment Start: 03/01/25 11:31 Freq: Status: Active Protocol: LAURIE Activity Type Activity Date Activity User E-sign Co-sign Detail Recorded Client Recorded Date Recorded By Document 03/01/25 11:33 MT [id number] 03/01/25 11:44 MT Document 03/08/25 10:21 KW [id number] 03/08/25 10:28 KW Document 03/22/25 10:07 KW [id number] 03/22/25 10:15 KW 03/01/25 03/08/25 03/22/25 11:33 10:21 10:07 - Today's Visit Information Type of service Follow-up Visit Follow-up Visit Follow-up Visit (Physician/HAIR CUTTER (Physician/HAIR CUTTER (Physician/HAIR CUTTER ) ) ) Arrival Mode Ambulatory, Ambulatory, Ambulatory, Walker Walker Walker Accompanied by self Patient Identification Verified (Name & Yes Yes Yes ) Safety Precautions Fall Prevention Vital Signs Temperature (97.8 F-99.1 F) 97.7 F L 96.1 F L 96.9 F L Temperature Source Temporal Temporal Temporal Pulse Rate (60-100) 80 80 91 Pulse Location Monitor Monitor Monitor Respiratory Rate (12-18) 18 18 18 Respiratory rate source Observation Observation Observation Oxygen Delivery Method Room Air Room Air Room Air Blood Pressure (90/60-120/80) 127/71 H 138/70 H 128/74 H Blood Pressure Mean (mm Hg) 89 92 92 Source Monitor Monitor Monitor Position Sitting Semi-Fowlers Sitting Blood Pressure Location Left Arm Left Arm Right Arm History Since Last Visit- (Skip if this is Patient's initial visit) Have you changed medications since your No No last visit? Any new allergies or adverse reactions No No Had a fall/change in ADL's that may No No increase risk of falls Signs or symptoms of abuse and/or No No neglect since last visit Have you been in the hospital since your No No last visit? Has dressing in place as prescribed Yes Yes Yes Has compression in place as prescribed Yes N/A N/A Has offloadiing in place as prescribed Yes N/A N/A Experienced any changes in pain level or Yes No No management Left Footwear Regular Shoe Regular Shoe Regular Shoe Right Footwear Regular Shoe Regular Shoe Regular Shoe Pain Scale: 0-10 Numeric Is Patient Pain Free? Yes Yes Yes - Nurse 1 - General Ulcer Measurement Start: 03/01/25 11:31 Freq: Status: Active Protocol: Activity Type Activity Date Activity User E-sign Co-sign Detail Recorded Client Recorded Date Recorded By Document 03/01/25 11:33 MT [id number] 03/01/25 11:44 MT Document 03/08/25 10:21 KW [id number] 03/08/25 10:28 KW Document 03/22/25 10:07 KW [id number] 03/22/25 10:15 KW 03/01/25 03/08/25 03/22/25 11:33 10:21 10:07 Wound Center Nurse 1 #1- SACRAL -Current Size (cm) - Length 0.5 0.1 0.1 -Current Size (cm) - Width 0.5 0.1 0.1 -Current Size (cm) - Depth 0.2 0 0 -Total Square Cm 0.25 0.01 0.01 -Date of Last Picture (Recall this 03/08/25 03/22/25 field) -Epithelialization Large 67-100% -Exudate Amt None Present None Present None Present -Wound Margin Flat & Intact -Granulation Amt Large (67-100%) -Granulation Quality Pale,Anchor Point -Slough/Fibrin No -Texture (Tsering-wound Skin Appearance) Assessed Assessed Assessed -Moisture (Tsering-wound Skin Appearance) Assessed Assessed Assessed -Color (Tsering-wound Skin Appearance) Assessed Assessed Assessed -Temperature (Tsering-wound Skin No Abnormality No Abnormality No Abnormality Appearance) (Pt Warm) (Pt Warm) (Pt Warm) -Tenderness on Palpation (Tsering-wound No No No Skin Appearance) -Ulcer Cleansing Soap and Water -Foul Odor after Cleansing No -Anesthetic Used 5% Lidocaine Gel -Wound Comment(s) possibly healed Lower Limb Edema Present NA WC - Nurse 2 - General Ulcer CM Notes Start: 03/01/25 11:31 Freq: Status: Active Protocol: Activity Type Activity Date Activity User E-sign Co-sign Detail Recorded Client Recorded Date Recorded By Document 03/01/25 11:52 [id number] 03/01/25 11:58 Document 03/08/25 10:37 GM [id number] 03/08/25 10:39 Document 03/22/25 10:32 DS [id number] 03/22/25 10:33 DS 03/01/25 03/08/25 03/22/25 11:52 10:37 10:32 Wound Center Nurse 2 #1- SACRAL -Time 11:53 10:38 10:32 -Correct Patient Yes Yes Yes -Correct Side, Site, Position Yes Yes Yes -Correct Procedure Yes No -Procedure Performed Yes No No -Type of Procedure Debridement -Clinical Debridement Subcutaneous -Tissue Removed Subcutaneous -Post Debridement (cm) - Length 0.1 -Post Debridement (cm) - Width 0.1 -Post Debridement (cm) - Depth 0.1 -Total Square (Post) (cm) 0.01 -Area of Debridement (cm) - Length 0.1 -Area of Debridement (cm) - Width 0.1 -Total Square (Area) (cm) 0.01 -Tunneling No No -Undermining/Tunneling No No -Circular Undermining No No -Wound/Ulcer Outcome Not Healed Healed- Healed- Epithelialized Epithelialized -Ulcer Cleansing Rinsed/ Not Cleansed Irrigated with Saline -Foul Odor after Cleansing No No -Bioengineered Tissue No -Bleeding Controlled with Pressure NA -Treatment Response Procedure Tolerated Well -Offloading No -Debridement - Subq, 1st 20sq cm Yes Pain Scale: 0-10 Numeric Is Patient Pain Free? Yes Yes Yes - Nurse 3 - General Ulcer D/C NN Start: 03/01/25 11:31 Freq: Status: Active Protocol: Activity Type Activity Date Activity User E-sign Co-sign Detail Recorded Client Recorded Date Recorded By Document 03/01/25 12:18 MT [id number] 03/01/25 12:22 MT Edit Result 03/01/25 12:18 MT (1) [id number] 03/01/25 12:49 MT Document 03/08/25 10:44 DS [id number] 03/08/25 10:51 DS Document 03/22/25 10:33 DS [id number] 03/22/25 10:38 DS (1) #1- SACRAL - Primary Dressing Applied => Aquacel Extra, => Silicone Border => Foam 4x4 03/01/25 03/08/25 03/22/25 12:18 10:44 10:33 Wound Care Center Nurse 3 #1- SACRAL -Ulcer Cleansing Rinsed/ Irrigated with Saline -Foul Odor after Cleansing No -Negative Pressure Wound Therapy N/A -Primary Dressing Applied Aquacel Extra, Silicone Border Foam 4x4 -Other Dressing vasoline -Primary Dressing Covered/Secured with Dry Gauze, Secured with Tape -Aquacel Extra 1 -Silicone Border Foam 4x4 3 -Wound Comment(s) lotion applied - healed Pain Scale: 0-10 Numeric Is Patient Pain Free? Yes Yes Yes - Visit Discharge Discharge Condition Stable Stable Ambulatory Status Wheelchair Ambulatory, Walker Transportation Private Auto Private Auto Assessment/Plan Assessment/Plan (1) Sacral decubitus ulcer, stage IV: CODE(S): L89.154 - Pressure ulcer of sacral region, stage 4 (2) Debility: CODE(S): R53.81 - Other malaise (3) History of stroke: CODE(S): Z86.73 - Personal history of transient ischemic attack (TIA), and cerebral infarction without residual deficits (4) Decubitus ulcer of sacral area: CODE(S): L89.159 - Pressure ulcer of sacral region, unspecified stage (5) Perirectal skin irritation: CODE(S): K62.89 - Other specified diseases of anus and rectum PLAN: Plan No debridement completed today. Prior area of ulceration remains healed and area of skin breakdown is also healed. Significant bruising following recent fall however, no open areas. Continue barrier cream/ointment using Vaseline, zinc oxide or Aquaphor. Continue offloading. Call with any concerns. Discharge from the wound center. This note was generated with [employer] dictation software. It may contain incorrect words, spelling, and punctuation that were not noted in checking the note before signing.
--- NOTE | 2025-03-22 15:26 | WC ---
PHOTO-SACRAL 03/22/25
== END 2025-03-29 14:52 | disposition home or self-care (01) ==
LOC: WC 10:15
PROVIDERS: PCP Internal Medicine; Referring Provider Internal Medicine; Visit Provider Internal Medicine
DX: L98.422 Non-pressure chronic ulcer of back with fat layer exposed (principal); G40.909 Epilepsy, unspecified, not intractable, without status epilepticus; L89.329 Pressure ulcer of left buttock, unspecified stage; I10 Essential (primary) hypertension; E78.5 Hyperlipidemia, unspecified; E03.9 Hypothyroidism, unspecified; Z79.82 Long term (current) use of aspirin; Z79.02 Long term (current) use of antithrombotics/antiplatelets; Z79.890 Hormone replacement therapy; Z79.899 Other long term (current) drug therapy
CPT/HCPCS: 11042; 99213; G0463